=== PATIENT | male | born 1985 | race Caucasian/White ===

== ENCOUNTER 2020-01-14 15:06 | Emergency (ER) | payer MEDICARE, MEDICAID, SELFPAY ==
[2020-01-14 15:08] VITALS: BP 136/80; PULSE 69; RESP 18; TEMP 36; O2SAT 92; BMI 36.5
--- NOTE | 2020-01-14 15:25 | ED.VIS.GEN ---
History of Present Illness Chief Complaint: Laceration Detail of Chief Complaint: Right hand laceration Informant: Patient Onset: Today Current Severity: Mild Maximum Severity: Moderate Narrative: Patient presents with laceration to the thenar eminence of the right hand. He states he cut it on a grinding wheel. He is right-hand dominant. He thinks his last tetanus shot was around 7 years ago. - Past Medical History (1) Factor 5 Leiden mutation, heterozygous Status: Chronic (2) MTHFR mutation Status: Chronic (3) Paraplegia Status: Chronic Comment: G82.20 Past Medical History - Allergies and Home Meds Allergies/Adverse Reactions: Allergies codeine Allergy (Verified 01/14/20 15:08) Other piperacillin sodium [From Zosyn] Allergy (Verified 01/14/20 15:08) Hives tazobactam sodium [From Zosyn] Allergy (Verified 01/14/20 15:08) Hives acetaminophen [From Vicodin] Adverse Reaction (Verified 01/14/20 15:08) Other severe headaches hydrocodone bitartrate [From Vicodin] Adverse Reaction (Verified 01/14/20 15:08) Other severe headaches Primary Care Physician: Anay Martin MD [Primary Care Provider] - Prior records reviewed: Yes Surgical History: - - laminectomy. placement of baclofen pump, pin placed in right hand Lives: Spouse/ Significant Other Smoking Status: Current some day smoker - Family History Maternal Family History: Reports: No pertinent history Review of Systems General: Denies: Chills, Fever Eyes: Denies: Visual changes - bilaterally ENT: Denies: Bilateral ear pain Cardiovascular: Denies: Chest pain Respiratory: Denies: Dyspnea Gastrointestinal: Denies: Abdominal pain Musculoskeletal: Reports: Extremity Pain Skin: Reports: Wounds Neurological: Denies: Weakness, Parasthesia, Numbness Hematologic: Denies: Easy bruising, Easy bleeding Allergy: Denies: Uticaria Physical Exam Vital Signs/Narrative: Vital Signs Temp Pulse Resp BP Pulse Ox 01/14/20 15:08 96.8 F L 69 18 136/80 H 92 Inital Vital Signs reviewed: Yes General: Well nourished, Well developed Head: Normocephalic ENT: Moist mucous membranes Cardiovascular: Regular rate, Regular rhythm Respiratory: No distress, CTA bilaterally Abdomen: Soft, Nontender Extremities: - - 3-1/2 cm laceration to the thenar eminence of the right hand. Minimal bleeding. Full range of motion of all digits. Normal cap refill and sensation. Neurological: Alert, Oriented x3, Normal Strength, Normal Sensation Psychological: Normal affect Diagnostic/Tx/Re-eval - Medical Decision Making 3 and half cc 1% lidocaine is used locally for anesthesia. Wound is cleansed and irrigated. Skin is closed with 5 simple interrupted sutures of 4-0 nylon. Dressing is applied. Patient is instructed on wound care and will have sutures removed in 7 to 10 days. Procedures - Lacerations No standard instances Length: 1.38 in Depth: Skin Shape: Linear Laceration repair: Lidocaine, Local Number of Sutures/Venessa: 5 Suture Information: EthilonTimmy, 4-0 ED Disposition - Plan for ED Patient: Disposition: Home or Assisted Living Diagnosis: Hand laceration Instructions: ED Laceration Hand Referrals: Anay Martin MD [Primary Care Provider] - 7 Days for suture removal
[2020-01-14] MEDS: Diphth,Pertuss(Acell),Tet Vac 0.5 ML Vial IM (16:04)
== END 2020-01-14 16:42 | disposition home or self-care (01) ==
PROVIDERS: Emergency Provider Emergency Medicine; PCP Internal Medicine
DX: S61.411A Laceration without foreign body of right hand, initial encounter (principal); W31.89XA Contact with other specified machinery, initial encounter; Y93.9 Activity, unspecified; Y92.9 Unspecified place or not applicable; Y99.9 Unspecified external cause status; Z23 Encounter for immunization; D68.51 Activated protein C resistance; E72.12 Methylenetetrahydrofolate reductase deficiency; G82.20 Paraplegia, unspecified; F17.200 Nicotine dependence, unspecified, uncomplicated; Z79.01 Long term (current) use of anticoagulants; Z79.899 Other long term (current) drug therapy
CPT/HCPCS: 12002; 90471; 90715; 99285

== ENCOUNTER 2021-02-18 09:18 | Emergency (ER) | payer MEDICARE, MEDICAID, SELFPAY ==
[2021-02-18 09:19] VITALS: BP 121/68; PULSE 112; RESP 20; TEMP 36.8; O2SAT 93; BMI 36.5
--- NOTE | 2021-02-18 10:22 | EKG12_ITS ---
Test Reason : FEVER Blood Pressure : / mmHG Vent. Rate : 102 BPM Atrial Rate : 102 BPM P-R Int : 150 ms QRS Dur : 082 ms QT Int : 310 ms P-R-T Axes : 053 010 023 degrees QTc Int : 404 ms Sinus tachycardia Otherwise normal ECG Confirmed by VIKTORIA KIRKLAND, SALVADOR ([id number]), development editor JACQUELINE TREJO ([id number]) on 02/22/2021 8:35:49 AM Referred By: MARIE Confirmed By:ESTELA BLUM MD
--- NOTE | 2021-02-18 10:25 | EDS_ITS ---
HPI History of Present Illness Chief Complaint: Fever Narrative Narrative: 35-year-old male with history of UTI presenting with concern for UTI. He states he was seen at urgent care prior to arrival and had a fever of 104.1. He was referred to the ER due to concern for kidney infection. He does complain of lower back pain and states this is where it usually hurts when he gets urinary tract infection. He states he took Tylenol prior to coming to the ED and his fever is now gone. He feels generally unwell. He states he has been very ill from UTIs in the past. He states he typically goes home on Bactrim. Patient does admit to a mild cough but states he is a smoker. He has not been vaccinated for COVID-19. He states he is wheezing and typically twice a year he does get wheezing. [facility] Medical History (Updated 02/18/21 @ 11:34 by Kusum Rubio) Abscess Paraplegia Home Medications baclofen 10 mg PO BID 03/18/13 [History Last Taken Unknown] morphine 15 mg PO Q12H 03/18/13 [History Last Taken Unknown] oxycodone 5 mg PO BID PRN 03/18/13 [History Last Taken Unknown] Xarelto 20 mg PO DAILY 08/31/15 [History Last Taken Unknown] pregabalin [Lyrica] 150 mg PO BID 08/31/15 [History Last Taken Unknown] tizanidine [Zanaflex] 2 mg PO BID 02/18/21 [History Last Taken Unknown] Allergy/AdvReac Type Severity Reaction Status Date / Time codeine Allergy Other Verified 02/18/21 09:21 piperacillin sodium Allergy Hives Verified 02/18/21 09:21 [From Zosyn] tazobactam sodium Allergy Hives Verified 02/18/21 09:21 [From Zosyn] acetaminophen [From Vicodin] AdvReac Other Verified 02/18/21 09:21 hydrocodone bitartrate AdvReac Other Verified 02/18/21 09:21 [From Vicodin] Social History Smoking Status: Current some day smoker tobacco type: cigarettes ROS ROS ED Constitutional Constitutional ED: Reports chills, fever(s) and sweats Eyes Eyes: Denies blurry vision or diplopia ENT ENT ED: Denies rhinorrhea or sore throat Cardiovascular Cardiovascular: Reports racing heartbeat; Denies chest pain or palpitations Respiratory/Chest Respiratory/Chest: Reports cough and dyspnea Gastrointestinal Gastrointestinal: Reports nausea; Denies abdominal pain, diarrhea or vomiting Genitourinary Genitourinary ED: Reports dysuria and urinary frequency Musculoskeletal Musculoskeletal: Reports myalgias; Denies back pain or neck pain Integumentary Denies Abrasions or rash Neurologic Neurologic: Denies headache(s) or paresthesias EXAM Physical Exam Const Vital Signs: 02/18/21 09:19 02/18/21 10:47 02/18/21 11:06 Temperature 98.3 F Temperature Source Temporal Pulse Rate 112 H 101 H Respiratory Rate 20 H 18 Respiratory Effort Short of Breath Blood Pressure 121/68 H Blood Pressure Mean 85 Pulse Ox 93 92 Oxygen Delivery Method Room Air Room Air 02/18/21 11:32 02/18/21 12:54 02/18/21 14:25 Temperature 98.7 F 98.4 F Temperature Source Temporal Temporal Pulse Rate 104 H 105 H 104 H Respiratory Rate 18 16 18 Respiratory Effort Blood Pressure 107/61 120/78 114/76 Blood Pressure Mean 76 92 88 Pulse Ox 96 92 94 Oxygen Delivery Method Room Air Room Air Room Air Positive well nourished General Appearance ED: NAD HEENT Reports moist mucous membranes HEENT Narrative: Diaphoretic Negative for trauma Eyes PERRL and EOMs intact bilaterally Resp normal respiratory effort Auscultation: wheezes throughout Cardio regular rhythm Rate: tachycardic GI normal to inspection, nondistended, normoactive bowel sounds Neuro oriented x3, CN's II-XII intact bilaterally and no sensory deficits noted Sensorium / Orientation: alert Motor Exam: strength 5/5 throughout Psych mental status grossly normal Skin no rashes or lesions noted MDM MDM MDM Narrative Medical decision making narrative: 35-year-old male presenting with fever of 104 prior to arrival. He is tachycardic on arrival as well. Sepsis work-up was started. Patient pancultured. Patient had an EKG performed which is sinus rhythm with ventricular rate of 102 bpm without signs of ischemic change on my interpretation. Chest x-ray on my interpretation shows no acute cardiopulmonary process. Patient himself was concerned for UTI given that he self catheterizes himself however urinalysis does not look overtly infected. White blood cell count is elevated at 17.3 with a left shift. Hemoglobin hematocrit are stable. Previous creatinine was 0.82 and today it is 1.34. Patient was given IV fluids. His LFTs are unremarkable. Lactic acid is 1.6. Rapid Covid testing is negative. Since patient had a small amount of hematuria I did see a CT of the abdomen pelvis which did not identify any acute process. At this point I am unsure what the source of his fever is. I spoke with his primary care provider Dr. Arnett and she recommended giving him Bactrim as this is the usual source of his infection. Urine culture and blood cultures are pending. Patient feels well on reevaluation. First dose of Bactrim was given in the ED. He was counseled if he is feeling worse or has any severe symptoms she should return to the ED. Impression: 1. Fever of unknown origin Lab Data Attestation: I reviewed the patient's lab results. Labs: Laboratory Results - last 24 hr 02/18/21 02/18/21 02/18/21 09:50 09:50 09:50 WBC 17.3 H RBC 5.43 Hgb 16.6 H Hct 49.8 MCV 91.7 MCH 30.6 MCHC 33.3 RDW Std Deviation 46.8 H RDW Coeff of Shahla 13.9 Plt Count 132 L MPV 10.9 Immature Gran % (Auto) 2.500 H Neut % (Auto) 89.8 H Lymph % (Auto) 3.2 L [place] % (Auto) 4.0 Eos % (Auto) 0.0 Baso % (Auto) 0.5 Absolute Neuts (auto) 15.5 H Absolute Lymphs (auto) 0.55 L Nucleated RBC % 0 Differential Comment SCANNED PT INR APTT Sodium 135 L Potassium 3.2 L Chloride 104 Carbon Dioxide 28.0 Anion Gap 3 L BUN 13 Creatinine 1.34 H Estim Creat Clear Calc 93.57 Est GFR (MDRD) Af Amer 77 Est GFR (MDRD) Non-Af 64 BUN/Creatinine Ratio 9.7 L Glucose 104 Lactic Acid 1.6 Calcium 8.4 L Total Bilirubin 0.70 AST 14 L ALT 27 Alkaline Phosphatase 71 Total Protein 7.1 Albumin 3.2 Globulin 3.9 Albumin/Globulin Ratio 0.8 L Urine Color Urine Clarity Urine pH Ur Specific [place] Urine Protein Urine Glucose (UA) Urine Ketones Urine Occult Blood Urine Nitrite Urine Bilirubin Urine Urobilinogen Ur Leukocyte Esterase Urine RBC Urine WBC Ur Squamous Epith Cells Urine Bacteria Urine Mucus 02/18/21 02/18/21 10:55 11:00 WBC RBC Hgb Hct MCV MCH MCHC RDW Std Deviation RDW Coeff of Shahla Plt Count MPV Immature Gran % (Auto) Neut % (Auto) Lymph % (Auto) [place] % (Auto) Eos % (Auto) Baso % (Auto) Absolute Neuts (auto) Absolute Lymphs (auto) Nucleated RBC % Differential Comment PT 16.6 H INR 1.4 APTT 34.2 Sodium Potassium Chloride Carbon Dioxide Anion Gap BUN Creatinine Estim Creat Clear Calc Est GFR (MDRD) Af Amer Est GFR (MDRD) Non-Af BUN/Creatinine Ratio Glucose Lactic Acid Calcium Total Bilirubin AST ALT Alkaline Phosphatase Total Protein Albumin Globulin Albumin/Globulin Ratio Urine Color Yellow Urine Clarity Sl. Cloudy Urine pH 5.0 Ur Specific [place] 1.015 Urine Protein 15 H Urine Glucose (UA) Normal Urine Ketones Negative Urine Occult Blood 10 H Urine Nitrite Negative Urine Bilirubin Negative Urine Urobilinogen 1 H Ur Leukocyte Esterase 100 H Urine RBC 0-5 SEEN Urine WBC 0-5 SEEN Ur Squamous Epith Cells 0-5 SEEN Urine Bacteria 1+ Urine Mucus 1+ Radiography Diagnostic Testing: Radiology Impression Chest X-Ray 02/18/21 11:10 IMPRESSION: Normal x-ray examination of the chest. Electronically Signed: Norm Dias MD at 11:35 EDT Tel , Service support , Abdomen/Pelvis CT 02/18/21 12:02 IMPRESSION: No acute abnormality. No renal or ureteral stone. Cholelithiasis. Electronically Signed: Norm Dias MD at 13:04 EDT Tel , Service support , Discharge Plan Triage Chief Complaint: Fever ED Provider: Abdirashid Thurman Dx/Rx/DC Orders Instructions: ED FUO Adult, ED Fever Control (Adult) Prescriptions: No Action morphine 30 MG tablet 15 mg PO Q12H RF: 0 baclofen 20 MG tablet 10 mg PO BID RF: 0 oxycodone 5 MG tablet 5 mg PO BID PRN (Reason: Pain) RF: 0 pregabalin [Lyrica] 150 MG capsule 150 mg PO BID RF: 0 Xarelto 20 MG tablet 20 mg PO DAILY RF: 0 tizanidine [Zanaflex] 2 mg Capsule 2 mg PO BID RF: 0 Primary Care Provider: Anay Martin Referrals: Anay Martin MD [Primary Care Provider] - Disposition Disposition: Home, Self Care
[2021-02-18 10:39] LABS: Absolute Lymphocyte Count 0.55 X10^3/uL (0.83-4.51); Absolute Neutrophil Count 15.5 X10^3/uL (2.0-7.7); Basophil# 0.09 X10^3/uL; Basophil% 0.5 % (0-1); Hematocrit 49.8 % (40-54); Hemoglobin 16.6 g/dL (13.0-16.5); Lymphocyte # 0.55 X10^3/ul (0.83-4.51); Lymphocyte % 3.2 % (19-41); Mean Corp Hgb Conc 33.3 g/dL (32-36); Mean Corpuscular Hgb 30.6 pg (27.0-32.0); Mean Corpuscular Volume 91.7 fL (80-94); Mean Platelet Vol. 10.9 fl (6.2-12.0); Monocyte# 0.69 X10^3/uL; NRBC Flagged by Analyzer 0 % (0-5); Neutrophil # 15.51 X10^3/uL (2.7-7.7); Neutrophil % 89.8 % (47-70); POSITIVE DIFFERENTIAL YES; POSITIVE MORPHOLOGY YES; Platelet Count 132 K/mm3 (150-450); RBC Distribution Width CV 13.9 % (11.6-14.6); RBC Distribution Width SD 46.8 fl (35.1-43.9); Red Blood Count 5.43 M/mm3 (4.6-6.2); White Blood Count 17.3 K/mm3 (4.4-11.0)
[2021-02-18 10:41] LABS: Differential Indicated SCAN CRITERIA MET
[2021-02-18 10:47] VITALS: PULSE 101; RESP 18
[2021-02-18] MEDS: Albuterol 2.5 MG/3 ML VIAL.NEB. INHALATION (10:47)
[2021-02-18] MEDS: Ipratropium/Albuterol Sulfate 3 ML AMPUL.NEB INHALATION (10:47)
[2021-02-18 10:48] LABS: ALB/GLOB Ratio 0.8 RATIO (0.9-2.4); AST(SGOT) 14 U/L (15-37); Alanine Aminotransfer ALT/SGPT 27 U/L (16-61); Albumin, Serum 3.2 g/dL (3.2-5.0); Alkaline Phosphatase 71 U/L (45-117); Anion Gap 3 (5-15); BUN 13 mg/dL (7-18); BUN/Creat Ratio 9.7 RATIO (10-20); Calcium,Total 8.4 mg/dL (8.5-10.1); Chloride 104 mmol/L (98-107); Creatinine, Serum 1.34 mg/dL (0.70-1.30); EST Glomerular Filtration Rate 64 mL/min (>60); Est Glom Filt Rate - Afr Amer 77 mL/min (>60); Estimated Creatinine Clearance 93.57 ml/min; Globulin 3.9 g/dL (2.2-4.2); Glucose 104 mg/dL (74-106); Potassium 3.2 mmol/L (3.5-5.1); Protein, Total 7.1 g/dL (6.4-8.2); Sodium Level 135 mmol/L (136-145)
[2021-02-18 10:50] LABS: Lactic Acid 1.6 mmol/L (0.4-1.9)
[2021-02-18] MEDS: 0.9% Normal Saline 1,000 ML 999 ML IV (10:57)
[2021-02-18] MEDS: MethylPREDNISolone 125 MG/2 ML Vial IV (10:57)
[2021-02-18 11:06] VITALS: O2SAT 92
[2021-02-18 11:09] LABS: Differential Comment SCANNED
[2021-02-18 11:10] LABS: Color, Urine Yellow (Yellow); Glucose, Dipstick Normal (Normal); Ketone-Dipstick Negative (Negative); Leukocyte Esterase-Dipstick 100 /ul (Negative); Nitrite-Dipstick Negative (Negative); Occult Blood-Urine 10 /ul (Negative); Protein-Dipstick 15 mg/dl (Negative); Specific Gravity, Urine 1.015 (1.002-1.030); Urine Bilirubin Dipstick Negative (Negative); Urine Clarity Sl. Cloudy (Clear); Urine Urobilinogen 1 mg/dl (Normal)
--- NOTE | 2021-02-18 11:10 | RAD_ITS ---
STUDY: X-RAY CHEST REASON FOR EXAM: Male, 35 years old. fever TECHNIQUE: Single AP portable view of the chest. COMPARISON: None. FINDINGS: The lungs are clear and expanded. There is no demonstrated pleural abnormality. Normal size heart. Normal mediastinum and marley. Normal visualized pulmonary arteries. Normal visualized aortic arch and descending thoracic aorta. Normal visualized thoracic spine. Normal visualized ribs, clavicles, and shoulders. There is no demonstrated abnormality of the visualized soft tissue structures of the upper abdomen. RAD/Chest 1 View (Portable) IMPRESSION: Normal x-ray examination of the chest. Electronically Signed: Norm Dias MD at 11:35 EDT Tel , Service support ,
[2021-02-18 11:20] LABS: International Normalized Ratio 1.4; Prothrombin Time (Protime)PT. 16.6 SECONDS (11.7-14.9)
[2021-02-18 11:21] LABS: Partial Thromboplast Time 34.2 Seconds (24.1-36.2)
[2021-02-18 11:24] LABS: Bacteria 1+ /hpf (None Seen); Mucous, Urine 1+ /hpf (<or=2+); Red Blood Cells-Urine 0-5 SEEN /hpf (0-5); Squamous Epithelial Cells - UA 0-5 SEEN /hpf (0-5); White Blood Cells 0-5 SEEN /hpf (0-5)
[2021-02-18 11:32] VITALS: BP 107/61; PULSE 104; RESP 18; TEMP 37.1; O2SAT 96
--- NOTE | 2021-02-18 12:02 | CT_ITS ---
STUDY: CT ABDOMEN AND PELVIS WITHOUT CONTRAST REASON FOR EXAM: Male, 35 years old. flank pain RADIATION DOSAGE (If Supplied By Facility): CTDIvol = ( 23.97 ) mGy, DLP = ( 1461.50 ) mGycm TECHNIQUE: Transaxial images were obtained from the dome of the diaphragm to the symphysis pubis without oral contrast, and without intravenous contrast. Sagittal and coronal images were reconstructed. Individualized dose optimization techniques were used for this CT. COMPARISON: None. FINDINGS: The visualized lung bases are unremarkable. The visualized portions of the heart are within normal limits. Normal liver. There are multiple gallstones. Normal spleen. Normal pancreas. Normal bilateral adrenal glands. Normal right kidney. Normal left kidney. Normal visualized stomach. Normal small intestine. Normal colon. The appendix is visualized and appears normal. Normal abdominal aorta. There is an IVC filter in place. Normal retroperitoneum. Normal urinary bladder. Epidural pain pump within the right upper quadrant anterior abdominal wall. Mild levoscoliosis of the lumbar spine with degenerative disc disease. CT/Abdomen/Pelvis without Cont IMPRESSION: No acute abnormality. No renal or ureteral stone. Cholelithiasis. Electronically Signed: Norm Dias MD at 13:04 EDT Tel , Service support ,
[2021-02-18 12:54] VITALS: BP 120/78; PULSE 105; RESP 16; O2SAT 92
[2021-02-18 14:25] VITALS: BP 114/76; PULSE 104; RESP 18; TEMP 36.9; O2SAT 94
[2021-02-18] MEDS: Smz/Tmp Ds Tablet 1 TABLET PO (16:07)
== END 2021-02-18 16:16 | disposition home or self-care (01) ==
PROVIDERS: Emergency Provider Student in an Organized Health Care Education/Training Program; PCP Internal Medicine
DX: R50.9 Fever, unspecified (principal); R00.0 Tachycardia, unspecified; G82.20 Paraplegia, unspecified; F17.210 Nicotine dependence, cigarettes, uncomplicated; Z79.02 Long term (current) use of antithrombotics/antiplatelets
CPT/HCPCS: 71045; 74176; 80053; 81001; 83605; 85025; 85610; 85730; 87040; 87086; 87088; 87426; 93005; 94640; 96374; 99285; J7030; A4216

== ENCOUNTER 2021-11-14 00:50 | Emergency (ER) | payer MEDICARE, MEDICAID, SELFPAY ==
[2021-11-14 00:51] VITALS: BP 134/81; PULSE 87; RESP 16; TEMP 36.6; O2SAT 99; BMI 35.9
--- NOTE | 2021-11-14 01:02 | EDS_ITS ---
HPI History of Present Illness Chief Complaint: Itching Informant: patient Narrative Narrative: Patient has been having diffuse body itching for about 24 hours. He states he has not really seen much of a rash. He cannot think of anything that is new. He has same dish and laundry detergents. His medications have not changed in either medication dose or appearance of the medicine that he gets from the pharmacy. He is not having shortness of breath or swelling of his mouth. He is tried Isidra and Benadryl but did not really provide much help. He states he just feels itchy all over. He cannot think of anything such as foods also that could have contributed to this. He does not generally feel ill. Itching is really his only complaint. No fevers or chills. [facility] Medical History Abscess Paraplegia Home Medications baclofen 10 mg PO BID 03/18/13 [History Last Taken Unknown] morphine 15 mg PO Q12H 03/18/13 [History Last Taken Unknown] Xarelto 20 mg PO DAILY 08/31/15 [History Last Taken Unknown] pregabalin [Lyrica] 200 mg PO BID 08/31/15 [History Last Taken Unknown] tizanidine [Zanaflex] 2 mg PO BID 02/18/21 [History Last Taken Unknown] cabergoline 0.5 mg PO MOTH 11/14/21 [History Last Taken Unknown] clomiphene citrate [Serophene] 50 mg PO QODAY 11/14/21 [History Last Taken Unknown] docusate sodium 100 mg PO BID 11/14/21 [History Last Taken Unknown] hydroxyzine pamoate 25 mg PO TID PRN PRN #30 cap 11/14/21 [Rx Last Taken Unknown] prednisone 60 mg PO DAILY #15 tab 11/14/21 [Rx Last Taken Unknown] Allergy/AdvReac Type Severity Reaction Status Date / Time codeine Allergy Other Verified 11/14/21 00:52 piperacillin sodium Allergy Hives Verified 11/14/21 00:52 [From Zosyn] tazobactam sodium Allergy Hives Verified 11/14/21 00:52 [From Zosyn] acetaminophen [From Vicodin] AdvReac Other Verified 11/14/21 00:52 hydrocodone bitartrate AdvReac Other Verified 11/14/21 00:52 [From Vicodin] Social History Smoking Status: Current some day smoker tobacco type: cigarettes ROS ROS ED Constitutional Constitutional ED: Denies chills or fever(s) Eyes Eyes: Denies blurry vision ENT ENT ED: Denies rhinorrhea or sore throat Cardiovascular Cardiovascular: Denies chest pain or palpitations Respiratory/Chest Respiratory/Chest: Denies cough, dyspnea or sputum Gastrointestinal Gastrointestinal: Denies nausea or vomiting Genitourinary Genitourinary ED: Denies dysuria Musculoskeletal Musculoskeletal: Denies arthralgias or myalgias Integumentary Reports other Details: No notable rash but he does feel itchy all over. ; Denies rash Neurologic Neurologic: Reports other Details: History of paraplegia. No change. Endocrine Endocrinology: Denies polydipsia or polyuria Allergic/Immunologic Allergic/Immunologic ED: Denies mouth swelling, tongue swelling or urticaria EXAM Physical Exam Const Vital Signs: 11/14/21 00:51 Temperature 98 F Temperature Source Oral Pulse Rate 87 Respiratory Rate 16 Blood Pressure 134/81 H Blood Pressure Mean 98 Pulse Ox 99 Oxygen Delivery Method Room Air Positive well nourished and well developed General Appearance ED: well developed and NAD; Negative for cyanotic or diaphoretic HEENT Reports moist mucous membranes HEENT Narrative: No oral swelling or change in voice or ability to swallow. Eyes EOMs intact bilaterally Neck supple Neck Narrative: No stridor. Chest Wall inspection of chest normal Resp normal respiratory effort and clear to auscultation bilaterally Cardio regular rate and regular rhythm GI normal to inspection, nondistended, normoactive bowel sounds and non-tender Palpation: soft Extremity normal to inspection Neuro oriented x3 Sensorium / Orientation: alert Psych mental status grossly normal Skin no rashes or lesions noted Skin Narrative: No notable rash. I see no hives. No raised areas. There may be a little bit of flushing to the skin of his periphery but this is minimal. I see no lesions at all. He feels none. MDM MDM MDM Narrative Medical decision making narrative: It is hard to say what is causing his symptoms. He definitely has some diffuse pruritus. Minimal flush to the skin. No significant rash. He has not had urinary symptoms or decreased urinary output. No indication of kidney failure. Plan will be a short burst of steroids. We will try some Vistaril for symptomatic improvement. If this is not resolved or doing significantly better within a few days he should check in with his physician. At that point further work-up may be pursued. He should return with any trouble breathing. Discharge Plan Triage Chief Complaint: Itching ED Provider: Callum Gilliland Dx/Rx/DC Orders Clinical Impression: Pruritus Instructions: ED General Allergic Reactions Prescriptions: New prednisone 20 MG tablet 60 mg PO DAILY Qty: 15 RF: 0 hydroxyzine pamoate [hydroxyzine pamoate] 25 MG capsule 25 mg PO TID PRN PRN (Reason: Anxiety) Qty: 30 RF: 0 No Action morphine 30 MG tablet 15 mg PO Q12H RF: 0 baclofen 20 MG tablet 10 mg PO BID RF: 0 pregabalin [Lyrica] 150 MG capsule 200 mg PO BID RF: 0 Xarelto 20 MG tablet 20 mg PO DAILY RF: 0 tizanidine [Zanaflex] 2 mg Capsule 2 mg PO BID RF: 0 clomiphene citrate [Serophene] 50 mg Tablet 50 mg PO QODAY RF: 0 cabergoline 0.5 mg Tablet 0.5 mg PO MOTH RF: 0 docusate sodium 100 mg Capsule 100 mg PO BID RF: 0 Primary Care Provider: Anay Martin Referrals: Anay Martin MD [Primary Care Provider] - 3-5 Days if not improving Disposition Disposition: Home, Self Care
[2021-11-14] MEDS: hydrOXYzine PAM 25 MG Capsule 50 MG PO (01:14)
[2021-11-14] MEDS: predniSONE 20 MG Tablet 60 MG PO (01:14)
[2021-11-14 01:15] VITALS: RESP 16
[2021-11-14 03:13] VITALS: BP 137/78; PULSE 67; RESP 18; O2SAT 97
--- NOTE | 2021-11-14 03:17 | EDS_ITS ---
HPI History of Present Illness Chief Complaint: Itching Informant: patient Narrative Narrative: Patient Santiago presents with itching. He states the medicine we gave him has not helped yet. I explained to the patient that is going to take 18 to 24 hours for prednisone to kick in. There are limits and I do not have medicines that will relieve all itching. Patient states that he is wondering if maybe a urine infection is causing this. He has none of his typical symptoms of urine infection. However, he now states that he has had some uncommon symptoms within his infection and he would like to get that checked as that is a possibility. I stated were happy to do that. [facility] Medical History Abscess Paraplegia Home Medications baclofen 10 mg PO BID 03/18/13 [History Last Taken Unknown] morphine 15 mg PO Q12H 03/18/13 [History Last Taken Unknown] Xarelto 20 mg PO DAILY 08/31/15 [History Last Taken Unknown] pregabalin [Lyrica] 200 mg PO BID 08/31/15 [History Last Taken Unknown] tizanidine [Zanaflex] 2 mg PO BID 02/18/21 [History Last Taken Unknown] cabergoline 0.5 mg PO MOTH 11/14/21 [History Last Taken Unknown] clomiphene citrate [Serophene] 50 mg PO QODAY 11/14/21 [History Last Taken Unknown] docusate sodium 100 mg PO BID 11/14/21 [History Last Taken Unknown] hydroxyzine pamoate 25 mg PO TID PRN PRN #30 cap 11/14/21 [Rx Last Taken Unknown] prednisone 60 mg PO DAILY #15 tab 11/14/21 [Rx Last Taken Unknown] sulfamethoxazole-trimethoprim [Bactrim DS] 1 tab PO Q12H #20 tab 11/14/21 [Rx Last Taken Unknown] Allergy/AdvReac Type Severity Reaction Status Date / Time codeine Allergy Other Verified 11/14/21 00:52 piperacillin sodium Allergy Hives Verified 11/14/21 00:52 [From Zosyn] tazobactam sodium Allergy Hives Verified 11/14/21 00:52 [From Zosyn] acetaminophen [From Vicodin] AdvReac Other Verified 11/14/21 00:52 hydrocodone bitartrate AdvReac Other Verified 11/14/21 00:52 [From Vicodin] Social History Smoking Status: Current some day smoker tobacco type: cigarettes ROS ROS ED Constitutional Constitutional ED: Denies chills, fever(s) or subjective Eyes Eyes: Denies blurry vision ENT ENT ED: Denies rhinorrhea Cardiovascular Cardiovascular: Denies chest pain Respiratory/Chest Respiratory/Chest: Denies cough Gastrointestinal Gastrointestinal: Denies nausea or vomiting Genitourinary Genitourinary ED: Denies dysuria, hematuria or urinary frequency Musculoskeletal Musculoskeletal: Denies myalgias Integumentary Reports other Details: Pruritus without notable rash ; Denies rash Endocrine Endocrinology: Denies polydipsia or polyuria Allergic/Immunologic Allergic/Immunologic ED: Denies urticaria EXAM Physical Exam Const Vital Signs: 11/14/21 00:51 11/14/21 01:15 11/14/21 03:13 Temperature 98 F Temperature Source Oral Pulse Rate 87 67 Respiratory Rate 16 16 18 Blood Pressure 134/81 H 137/78 H Blood Pressure Mean 98 97 Pulse Ox 99 97 Oxygen Delivery Method Room Air Room Air Positive well nourished General Appearance ED: NAD; Negative for cyanotic or diaphoretic HEENT Reports moist mucous membranes HEENT Narrative: No intraoral rash. Eyes General Eye ED: Negative for pale conjunctiva or scleral icterus Neck no JVD Chest Wall inspection of chest normal Resp normal respiratory effort and clear to auscultation bilaterally Cardio regular rate and regular rhythm GI normal to inspection, nondistended, normoactive bowel sounds and non-tender Palpation: soft Back/Spine no CVA tenderness Neuro Neuro Narrative: Paraplegia. Sensorium / Orientation: alert Skin Skin Narrative: Again, his skin has some mild hint of redness but he states this looks normal to him. It is blanching. MDM MDM MDM Narrative Medical decision making narrative: I did blood work to make sure there is no sign of uremia. His electrolytes look overall normal. His urine does show some mildly cloudy urine. There are 25-50 white cells and 4+ bacteria. We will treat this as UTI. He has done very well on Bactrim before. I will try giving him some Pepcid to see if the H2 blockage helps his itch. I explained that I do not have any specialized medicines for itch beyond the antihistamine that he is already taking. Hopefully, treating the UTI will help him feel better. Lab Data Attestation: I reviewed the patient's lab results. Labs: Laboratory Results - last 24 hr 11/14/21 11/14/21 03:00 03:10 Sodium 138 Potassium 3.8 Chloride 105 Carbon Dioxide 29.0 Anion Gap 4 L BUN 11 Creatinine 0.94 Estim Creat Clear Calc 132.10 Est GFR (MDRD) Af Amer 116 Est GFR (MDRD) Non-Af 96 BUN/Creatinine Ratio 11.7 Glucose 122 H Calcium 9.0 Urine Color Yellow Urine Clarity Cloudy Urine pH 6.0 Ur Specific [place] 1.015 Urine Protein 15 H Urine Glucose (UA) Normal Urine Ketones Negative Urine Occult Blood 25 H Urine Nitrite Negative Urine Bilirubin Negative Urine Urobilinogen 4 H Ur Leukocyte Esterase 25 H Urine RBC 0-5 SEEN Urine WBC 25-50 SEEN Ur Squamous Epith Cells 0 SEEN Amorphous Sediment 3+ Urine Bacteria 4+ Urine Mucus 0 SEEN Discharge Plan Triage Chief Complaint: Itching ED Provider: Callum Gilliland Dx/Rx/DC Orders Clinical Impression: Pruritus, Urinary tract infection Instructions: Urinary Tract Infections in Men, ED General Allergic Reactions Prescriptions: New prednisone 20 MG tablet 60 mg PO DAILY Qty: 15 RF: 0 hydroxyzine pamoate [hydroxyzine pamoate] 25 MG capsule 25 mg PO TID PRN PRN (Reason: Anxiety) Qty: 30 RF: 0 sulfamethoxazole-trimethoprim [Bactrim DS] 800-160 mg tablet 1 tab PO Q12H Qty: 20 RF: 0 No Action morphine 30 MG tablet 15 mg PO Q12H RF: 0 baclofen 20 MG tablet 10 mg PO BID RF: 0 pregabalin [Lyrica] 150 MG capsule 200 mg PO BID RF: 0 Xarelto 20 MG tablet 20 mg PO DAILY RF: 0 tizanidine [Zanaflex] 2 mg Capsule 2 mg PO BID RF: 0 clomiphene citrate [Serophene] 50 mg Tablet 50 mg PO QODAY RF: 0 cabergoline 0.5 mg Tablet 0.5 mg PO MOTH RF: 0 docusate sodium 100 mg Capsule 100 mg PO BID RF: 0 Primary Care Provider: Anay Martin Referrals: Anay Martin MD [Primary Care Provider] - 3-5 Days if not improving Disposition Disposition: Home, Self Care Discharge Date/Time: 11/14/21 01:17
[2021-11-14 03:20] LABS: Anion Gap 4 (5-15); BUN 11 mg/dL (7-18); BUN/Creat Ratio 11.7 RATIO (10-20); Chloride 105 mmol/L (98-107); Creatinine, Serum 0.94 mg/dL (0.70-1.30); EST Glomerular Filtration Rate 96 mL/min (>60); Est Glom Filt Rate - Afr Amer 116 mL/min (>60); Glucose 122 mg/dL (74-106); Potassium 3.8 mmol/L (3.5-5.1); Sodium Level 138 mmol/L (136-145)
[2021-11-14 03:21] LABS: Mucous, Urine 0 SEEN /hpf (<or=2+); Squamous Epithelial Cells - UA 0 SEEN /hpf (0-5)
[2021-11-14 03:51] LABS: Color, Urine Yellow (Yellow); Glucose, Dipstick Normal (Normal); Ketone-Dipstick Negative (Negative); Leukocyte Esterase-Dipstick 25 /ul (Negative); Nitrite-Dipstick Negative (Negative); Occult Blood-Urine 25 /ul (Negative); Protein-Dipstick 15 mg/dl (Negative); Specific Gravity, Urine 1.015 (1.002-1.030); Urine Bilirubin Dipstick Negative (Negative); Urine Clarity Cloudy (Clear); Urine Urobilinogen 4 mg/dl (Normal)
[2021-11-14 04:01] LABS: Red Blood Cells-Urine 0-5 SEEN /hpf (0-5); White Blood Cells 25-50 SEEN /hpf (0-5)
[2021-11-14 04:02] LABS: Amorphous Sediment 3+; Bacteria 4+ /hpf (None Seen)
[2021-11-14 04:18] VITALS: BP 162/128; PULSE 88; RESP 15; O2SAT 96
[2021-11-14] MEDS: Famotidine 20 MG Tablet PO (04:40)
[2021-11-14] MEDS: Smz/Tmp Ds Tablet 1 TABLET PO (04:40)
--- NOTE | 2021-11-17 13:26 | ED.RN ---
PRESCRIPTION FOR BACTRUM CALLED IN FOR PT. [facility] THE BACTRUM PRESCRIPTION DID NOT SEND TO THEM. THIS RN ABLE TO READ SCRIPT AND CALL MED IN FOR PT. DR VALDEZ AWARE
== END 2021-11-14 04:57 | disposition home or self-care (01) ==
LOC: ED 01:12
PROVIDERS: Emergency Provider Emergency Medicine; PCP Internal Medicine; Visit Provider Emergency Medicine
DX: L29.9 Pruritus, unspecified (principal); N39.0 Urinary tract infection, site not specified; F17.210 Nicotine dependence, cigarettes, uncomplicated; Z79.01 Long term (current) use of anticoagulants; Z79.899 Other long term (current) drug therapy
CPT/HCPCS: 80048; 81001; 87086; 87088; 87186; 99285

== ENCOUNTER 2024-01-02 16:08 | Inpatient (IN) | payer MEDICARE, MEDICAID, SELFPAY ==
[2024-01-02] VITALS (11 sets, daily range): BP systolic 99–149; BP diastolic 52–77; PULSE 87–165; RESP 16–26; TEMP 36.8–40.1; O2SAT 90–100; BMI 35.7
--- NOTE | 2024-01-02 16:19 | EKG12_ITS ---
Test Reason : FEVER Blood Pressure : / mmHG Vent. Rate : 149 BPM Atrial Rate : 149 BPM P-R Int : 154 ms QRS Dur : 068 ms QT Int : 230 ms P-R-T Axes : 046 -06 032 degrees QTc Int : 362 ms Sinus tachycardia Otherwise normal ECG Confirmed by HEIDY KIRKLAND, DEMETRICE ([id number]), editor book WILDER KITCHEN ([id number]) on 01/03/2024 1:02:03 PM Referred By: Confirmed By:DEMETRICE MOODY MD
--- NOTE | 2024-01-02 16:20 | CT_ITS ---
EXAM: CT ABDOMEN AND PELVIS WITHOUT INTRAVENOUS CONTRAST CLINICAL INDICATION: flank pain r/o nephrolithiasis TECHNIQUE: Helically acquired images were obtained of the abdomen and pelvis without intravenous contrast. This CT exam was performed using one or more of the following dose reduction techniques: automated exposure control, adjustment of the mA and/or kV according to patient size, and/or use of iterative reconstruction technique. COMPARISON: 02/18/2021 FINDINGS: LOWER THORAX: Unremarkable. Lung bases are clear. No cardiomegaly. No significant pericardial effusion. ABDOMEN: LIVER: Unremarkable. Homogeneous. GALLBLADDER AND BILE DUCTS: There are multiple tiny gallstones which are stable. There is no inflammation. No gallbladder distention or wall edema. No intra- or extrahepatic biliary ductal dilation. PANCREAS: Unremarkable. No focal cystic mass. SPLEEN: Unremarkable. Normal size without focal cystic or solid mass. ADRENALS: Unremarkable. No nodules. KIDNEYS AND URETERS: Unremarkable. Normal renal size and position. No hydronephrosis. STOMACH AND BOWEL: Unremarkable. No stomach or bowel distention. No focal inflammatory change. PELVIS: APPENDIX: No evidence of acute appendicitis. BLADDER: There is a Booker catheter in the bladder. REPRODUCTIVE: Unremarkable as visualized. No mass. ABDOMEN and PELVIS: INTRAPERITONEAL SPACE: Unremarkable. No ascites or other fluid collection. No free air. BONES/JOINTS: Unremarkable. No suspicious lytic or blastic abnormality. SOFT TISSUES: See below. VASCULATURE: There is an inferior vena cava filter in place. An IVC filter is present. Assess if there is a management plan in place for the IVC filter.If there is no established management plan, refer the patient to an interventional clinician on a nonemergent basis for evaluation. Abdominal aorta is non-dilated. LYMPH NODES: Unremarkable. No enlarged lymph nodes. TUBES, LINES AND DEVICES: There is mechanical device in the subcutaneous tissues over the right lower abdomen. CT/Abdomen/Pelvis without Cont IMPRESSION: No acute abnormalities in the abdomen or pelvis. There has been no significant change from the reference exam. There is cholelithiasis with no evidence of cholecystitis. Electronically Signed: Deep Wade MD at 18:22 EDT ,
[2024-01-02] MEDS: 0.9% Normal Saline (1000mL) 1,000 ML 1000 ML IV (16:32)
[2024-01-02] MEDS: Ondansetron 4 MG/2 ML Vial IV (16:33)
[2024-01-02] MEDS: Ketorolac 15 MG/ML Vial IV (16:33)
--- NOTE | 2024-01-02 16:35 | ED.VIS.BACK ---
HPI History of Present Illness Chief Complaint: Complaint [facility] Medical History Abscess Paraplegia Home Medications ?Medication ?Instructions ?Recorded ?Last Taken ?Type baclofen 20 mg tablet 10 mg PO BID 03/18/13 Unknown History morphine 30 mg tablet,extended 15 mg PO Q12H 03/18/13 Unknown History release pregabalin 150 mg capsule (Lyrica) 200 mg PO BID 08/31/15 Unknown History rivaroxaban 20 mg tablet (Xarelto) 20 mg PO DAILY 08/31/15 Unknown History tizanidine 2 mg capsule (Zanaflex) 2 mg PO BID 02/18/21 Unknown History cabergoline 0.5 mg tablet 0.5 mg PO MOTH 11/14/21 Unknown History clomiphene citrate 50 mg tablet 50 mg PO QODAY 11/14/21 Unknown History (Serophene) hydroxyzine pamoate 25 mg capsule 25 mg PO TID PRN PRN Anxiety #30 11/14/21 Unknown Rx caps prednisone 20 mg tablet 60 mg (3 x 20 mg) PO DAILY #15 tabs 11/14/21 Unknown Rx sulfamethoxazole 800 1 tab PO Q12H #20 tabs 11/14/21 Unknown Rx mg-trimethoprim 160 mg tablet (Bactrim DS) Allergy/AdvReac Type Severity Reaction Status Date / Time codeine Allergy Other Verified 01/02/24 16:11 piperacillin sodium (From Allergy Hives Verified 01/02/24 16:11 Zosyn) tazobactam sodium (From Allergy Hives Verified 01/02/24 16:11 Zosyn) acetaminophen (From Vicodin) AdvReac Other Verified 01/02/24 16:11 hydrocodone bitartrate (From AdvReac Other Verified 01/02/24 16:11 Vicodin) Social History Smoking Status: Current some day smoker tobacco type: cigarettes EXAM Physical Exam Const Vital Signs: 01/02/24 16:11 01/02/24 16:14 01/02/24 16:31 Temperature 102.9 F H 102.4 F H 103.9 F H Temperature Source Temporal Core Axillary Pulse Rate 165 H 138 H Respiratory Rate 24 H 26 H Blood Pressure 149/74 H 137/77 H Blood Pressure Mean 99 97 Pulse Ox 93 90 Oxygen Delivery Method Room Air Nasal Cannula Oxygen Flow Rate (L/min) 2 01/02/24 17:14 01/02/24 18:00 01/02/24 18:00 Temperature 104.1 F H 103.4 F H 103.4 F H Temperature Source Core Core Core Pulse Rate 122 H 115 H 113 H Respiratory Rate 17 18 22 H Blood Pressure 116/60 114/57 L 114/57 L Blood Pressure Mean 78 76 76 Pulse Ox 96 95 97 Oxygen Delivery Method Nasal Cannula Room Air Nasal Cannula Oxygen Flow Rate (L/min) 5 5 [facility] MDM Narrative Medical decision making narrative: HISTORY OF PRESENT ILLNESS: 38-year-old male presents with fever, back pain began suddenly this afternoon. Denies any sick contacts. Notes nausea but no vomiting. Family states patient is a history of epidural abscess and paraplegia. Patient denies abdominal pain. Patient denies bowel or bladder incontinence, IV drug use, urinary retention. REVIEW OF SYSTEMS: Pertinent positives: Nausea, shortness of breath, back pain, fatigue Pertinent negatives: Vomiting, chest pain, new focal neurologic deficits, IV drug use PHYSICAL EXAM: Nursing triage notes reviewed, Vital signs reviewed Constitutional: please see mdm HENT: MMM Eyes: Pupils equal round and reactive to light, Extraocular muscles intact Neck: No stridor, no JVD, full neck ROM Lungs: Clear to auscultation, No wheezing or rales. No increased work of breathing, no conversational dyspnea, no accessory muscle use, no nasal flaring. No respiratory distress noted Heart: Regular rate and rhythm, No murmurs, No rubs and No gallops, 2+ distal pulses (radial, femoral, posterior tibial) in all extremities Abdomen: Soft, there is no tenderness, rigidity, rebound or guarding, no obvious peritoneal signs, no palpable pulsatile abdominal masses, no auscultated abdominal bruit : No CVAT Extremities: No edema Neuro: Intact and sensation bilateral upper extremities, chronic weakness noted in bilateral lower extremities, Skin: No rash or lesions noted MEDICAL DECISION MAKING: Chief Complaint: Fever, back pain External records reviewed: Last ED visit 2021 Factors affecting care: n epidural abscess, paraplegia Social determinants of health: Denies IV drug use History obtained from others: patient's and child Consults: n internal medicine (Dr. Benton) [facility] Narrative: Patient is initially febrile, tachycardic rate of 165, tachypneic saturating 90% on room air. He was placed on 2 L nasal cannula. Large-bore IVs were placed. Fluid cessation was initiated. I considered the following differential diagnosis: Sepsis from either pulmonary source, urinary source, intra-abdominal source, epidural abscess Will consider epidural abscess potential etiology the patient had hypoxia, fever and had evidence of pneumonia which is more likely explanation rather than new infection of the spine in addition to this CT scans of the lumbar spine were negative for acute bony injury. ALL IMAGES (IF OBTAINED) HAVE BEEN PERSONALLY REVIEWED AND INTERPRETED BY MYSELF. CT scan lumbar spine shows no evidence of bony abnormality CT scan abdomen pelvis shows no evidence of intra-abdominal pathology Chest x-ray read reviewed myself shows bilateral infiltrates Lipase is wnl indicating no pancreatic inflammation. Lactate is wnl indicating no end-organ hypoperfusion and/or hypoxia. Urinalysis shows no evidence of urinary inflammation suggestive of UTI CBC leukocytosis suggestive of systemic inflammation, hemoconcentration but no thrombocytopenia CMP without evidence of acute kidney injury, significant electrolyte abnormality, anion gap, no evidence hepatobiliary pathology. COVID pending Blood and urine cultures pending Patient received broad-spectrum antibiotics in the form of vancomycin and cefepime. He was given Toradol and Tylenol to leave the fever and placed on oxygen. This improved his vital signs. He continued to have elevated temperature so ice packs were placed and lieu of cooling blanket as it is not available at this time. Given patient's vital sign normalities, concern for sepsis and new onset hypoxia in setting of community-acquired pneumonia patient was admitted to the PCU. Discussed with Dr. Benton The patient and/or family, caregivers express understanding. The patient and/or family, caregivers agrees with the plan. Shared decision making: I will have a discussion with the patient and or visitors regarding risk/benefits of further testing or admission. They will be made aware of of the risk/benefits inherent in this decision they will be given the opportunity to voice understanding. Total critical care time today provided was at least 60 minutes. This excludes separately billable procedures. Critical care time (if documented) is secondary to the patient having high probability of clinically significant/life threatening deterioration in the patient's condition which required my urgent intervention. Impression: 1. Sepsis 2. Community-acquired pneumonia 3. Hypoxia Dispo: Admit to PCU This note was generated with [employer]pt[employer] dictation software. It may contain incorrect words, spelling, and punctuation that were not noted in review of the chart prior to signing. Lab Data Labs: Laboratory Results - last 24 hr 01/02/24 16:40 WBC 16.0 H RBC 5.95 Hgb 18.2 H* Hct 54.1 H MCV 90.9 MCH 30.6 MCHC 33.6 RDW Std Deviation 48.6 H RDW Coeff of Shahla 14.6 Plt Count 154 MPV 10.6 Immature Gran % (Auto) 0.800 Neut % (Auto) 92.1 H Lymph % (Auto) 2.5 L [place] % (Auto) 3.7 Eos % (Auto) 0.1 Baso % (Auto) 0.8 Absolute Neuts (auto) 14.8 H Absolute Lymphs (auto) 0.40 L Nucleated RBC % 0 [address] Review May foll Sodium 137 Potassium 3.8 Chloride 105 Carbon Dioxide 28.0 Anion Gap 4 L BUN 9 Creatinine 1.08 Est GFR (MDRD) Af Amer 98 Est GFR (MDRD) Non-Af 81 BUN/Creatinine Ratio 8.3 L Glucose 96 Lactic Acid 1.7 Calcium 9.3 Total Bilirubin 0.90 AST 25 ALT 49 Alkaline Phosphatase 93 Total Protein 8.2 Albumin 3.8 Globulin 4.4 H Albumin/Globulin Ratio 0.9 Lipase 19 Urine Color Yellow Urine Clarity Clear Urine pH 8.0 Ur Specific [place] 1.010 Urine Protein Negative Urine Glucose (UA) Normal Urine Ketones Negative Urine Occult Blood 10 H Urine Nitrite Negative Urine Bilirubin Negative Urine Urobilinogen 8 H Ur Leukocyte Esterase 25 H Urine RBC 0-5 SEEN Urine WBC 0-5 SEEN Ur Squamous Epith Cells 0 SEEN Urine Bacteria 1+ Urine Mucus 0 SEEN Radiography Diagnostic Testing: Clinical Impression(s) from Imaging Studies Abdomen/Pelvis CT 01/02/24 16:20 IMPRESSION: No acute abnormalities in the abdomen or pelvis. There has been no significant change from the reference exam. There is cholelithiasis with no evidence of cholecystitis. Electronically Signed: Deep Wade MD at 18:22 EDT , Lumbar Spine CT 01/02/24 16:36 IMPRESSION: No acute findings in the lumbar spine. Electronically Signed: Deep Wade MD at 18:27 EDT , Chest X-Ray 01/02/24 17:55 IMPRESSION: Bibasilar airspace disease which may represent atelectasis or early bilateral lower lobe pneumonia. Electronically Signed: Deep Wade MD at 18:23 EDT , Discharge Plan Triage Chief Complaint: Complaint Other Complaint: Back Nausea/Vomiting ED Provider: Inder Lauren Dx/Rx/DC Orders Prescriptions: No Action morphine 30 MG tablet 15 mg PO Q12H Patient Comments: pain baclofen 20 MG tablet 10 mg PO BID pregabalin [Lyrica] 150 MG capsule 200 mg PO BID Patient Comments: nerve pain Xarelto 20 MG tablet 20 mg PO DAILY Patient Comments: blood thinner tizanidine [Zanaflex] 2 mg Capsule 2 mg PO BID clomiphene citrate [Serophene] 50 mg Tablet 50 mg PO QODAY cabergoline 0.5 mg Tablet 0.5 mg PO MOTH prednisone 20 MG tablet 60 mg PO DAILY Qty: 15 0RF hydroxyzine pamoate [hydroxyzine pamoate] 25 MG capsule 25 mg PO TID PRN PRN (Reason: Anxiety) Qty: 30 0RF Rx Instructions: 1 to 2 tablets 3 times a day as needed for itch sulfamethoxazole-trimethoprim [Bactrim DS] 800-160 mg tablet 1 tab PO Q12H Qty: 20 0RF Primary Care Provider: Anay Martin Referrals: Anay Mratin MD [Primary Care Provider] - Print Language: Albanian
--- NOTE | 2024-01-02 16:36 | CT_ITS ---
EXAM: CT LUMBAR SPINE WITHOUT INTRAVENOUS CONTRAST CLINICAL INDICATION: back pain TECHNIQUE: Helically acquired images were obtained of the lumbar spine without intravenous contrast. 2D reformats were reviewed. This CT exam was performed using one or more of the following dose reduction techniques: automated exposure control, adjustment of the mA and/or kV according to patient size, and/or use of iterative reconstruction technique. COMPARISON: No relevant prior studies available. FINDINGS: VERTEBRAE: Unremarkable. No fracture. No traumatic subluxation. No discrete lytic or blastic abnormality. Normal alignment. DISCS/SPINAL CANAL/NEURAL FORAMINA: Unremarkable. Disc heights are preserved. No critical stenosis. VASCULATURE: Visualized abdominal aorta is not dilated. LYMPH NODES: Unremarkable. No retroperitoneal adenopathy. TUBES, LINES AND DEVICES: There is a small intrathecal catheter present in the central canal. CT/Spine Lumbar without Contrast IMPRESSION: No acute findings in the lumbar spine. Electronically Signed: Deep Wade MD at 18:27 EDT ,
[2024-01-02] MEDS: Acetaminophen 500 MG Tablet 1000 MG PO (16:58)
[2024-01-02 17:05] LABS: Absolute Neutrophil Count 14.8 X10^3/uL (2.0-7.7); Basophil# 0.12 X10^3/uL; Basophil% 0.8 % (0-1); Eosinophil# 0.01 X10^3/uL; Eosinophils% 0.1 % (0-5); Hematocrit 54.1 % (40-54); Lymphocyte % 2.5 % (19-41); Mean Corp Hgb Conc 33.6 g/dL (32-36); Mean Corpuscular Hgb 30.6 pg (27.0-32.0); Mean Corpuscular Volume 90.9 fL (80-94); Mean Platelet Vol. 10.6 fl (6.2-12.0); Monocyte# 0.59 X10^3/uL; Monocyte% 3.7 % (0-10); NRBC Flagged by Analyzer 0 % (0-5); Neutrophil # 14.75 X10^3/uL (2.7-7.7); Neutrophil % 92.1 % (47-70); POSITIVE DIFFERENTIAL YES; Platelet Count 154 K/mm3 (150-450); RBC Distribution Width CV 14.6 % (11.6-14.6); RBC Distribution Width SD 48.6 fl (35.1-43.9); Red Blood Count 5.95 M/mm3 (4.6-6.2)
[2024-01-02 17:09] LABS: ALB/GLOB Ratio 0.9 RATIO (0.9-2.4); AST(SGOT) 25 U/L (15-37); Alanine Aminotransfer ALT/SGPT 49 U/L (16-61); Albumin, Serum 3.8 g/dL (3.2-5.0); Alkaline Phosphatase 93 U/L (45-117); Anion Gap 4 (5-15); BUN 9 mg/dL (7-18); BUN/Creat Ratio 8.3 RATIO (10-20); Calcium,Total 9.3 mg/dL (8.5-10.1); Chloride 105 mmol/L (98-107); Creatinine, Serum 1.08 mg/dL (0.70-1.30); EST Glomerular Filtration Rate 81 mL/min (>60); Est Glom Filt Rate - Afr Amer 98 mL/min (>60); Globulin 4.4 g/dL (2.2-4.2); Glucose 96 mg/dL (74-106); Lipase 19 U/L (13-75); Potassium 3.8 mmol/L (3.5-5.1); Protein, Total 8.2 g/dL (6.4-8.2); Sodium Level 137 mmol/L (136-145)
[2024-01-02] MEDS: Cefepime HCl 2 GM in 0.9% Normal Saline (100mL MB+) 100 ML IV (17:09)
[2024-01-02 17:16] LABS: Hemoglobin 18.2 g/dL (13.0-16.5)
[2024-01-02] MEDS: Vancomycin HCl 2,000 MG in 0.9% Normal Saline (500mL Bag) 500 ML 250 MG IV (17:28)
[2024-01-02 17:41] LABS: Mucous, Urine 0 SEEN /hpf (<or=2+); Squamous Epithelial Cells - UA 0 SEEN /hpf (0-5)
[2024-01-02 17:42] LABS: Lactic Acid 1.7 mmol/L (0.4-1.9)
[2024-01-02 17:46] LABS: Color, Urine Yellow (Yellow); Glucose, Dipstick Normal (Normal); Ketone-Dipstick Negative (Negative); Leukocyte Esterase-Dipstick 25 /ul (Negative); Nitrite-Dipstick Negative (Negative); Occult Blood-Urine 10 /ul (Negative); Protein-Dipstick Negative (Negative); Urine Bilirubin Dipstick Negative (Negative); Urine Clarity Clear (Clear); Urine Urobilinogen 8 mg/dl (Normal)
[2024-01-02 17:52] LABS: Bacteria 1+ /hpf (None Seen); Red Blood Cells-Urine 0-5 SEEN /hpf (0-5); White Blood Cells 0-5 SEEN /hpf (0-5)
--- NOTE | 2024-01-02 17:55 | RAD_ITS ---
EXAM: XR CHEST, 1 VIEW CLINICAL INDICATION: fever TECHNIQUE: Frontal view of the chest. COMPARISON: 02/18/2021 FINDINGS: LUNGS AND PLEURAL SPACES: There is mild bibasilar airspace disease. No pneumothorax. No effusion. HEART: Unremarkable. Cardiac silhouette not enlarged. MEDIASTINUM: Central airways and mediastinal contour are unremarkable. BONES/JOINTS: Unremarkable. No acute fracture. SOFT TISSUES: Unremarkable. RAD/Chest 1 View (Portable) IMPRESSION: Bibasilar airspace disease which may represent atelectasis or early bilateral lower lobe pneumonia. Electronically Signed: Deep Wade MD at 18:23 EDT ,
[2024-01-02] MEDS: 0.9% Normal Saline (1000mL) 1,000 ML 999 ML IV (19:01)
--- NOTE | 2024-01-02 19:44 | HP.PCM.HOS_ITS ---
HPI - General General Date of Admission: 01/02/24 Date of Service: 01/02/24 Chief Complaint: Shortness of breath and fever HPI Narrative MATEUS FRANZ, is a 38 M who presents from home with shortness of breath and fever. Patient was having some back pain. Patient was feeling okay until today where he became very lethargic, febrile and dyspneic. Presented to the emergency room and he underwent a workup that showed that he had bilateral pneumonia. He was febrile with a temp of 40.1 Celsius, tachycardic in the 120s, tachypneic to 26. He received vancomycin and cefepime in the emergency room. Patient has not been hospitalized anywhere recently. Patient has never had pneumonia before. [facility] Medical History (Updated 01/02/24 @ 19:[address] Seven Benton, ) Smoker MTHFR mutation Factor 5 Leiden mutation, heterozygous Low testosterone in male Abscess Paraplegia Home Medications ?Medication ?Instructions ?Recorded ?Last Taken ?Type baclofen 20 mg tablet 10 mg PO BID 03/18/13 Unknown History morphine 30 mg tablet,extended 15 mg PO Q12H 03/18/13 Unknown History release pregabalin 150 mg capsule (Lyrica) 200 mg PO BID 08/31/15 Unknown History rivaroxaban 20 mg tablet (Xarelto) 20 mg PO DAILY 08/31/15 Unknown History tizanidine 2 mg capsule (Zanaflex) 2 mg PO BID 02/18/21 Unknown History cabergoline 0.5 mg tablet 0.5 mg PO MOTH 11/14/21 Unknown History clomiphene citrate 50 mg tablet 50 mg PO QODAY 11/14/21 Unknown History (Serophene) hydroxyzine pamoate 25 mg capsule 25 mg PO TID PRN PRN Anxiety #30 11/14/21 Unknown Rx caps prednisone 20 mg tablet 60 mg (3 x 20 mg) PO DAILY #15 tabs 11/14/21 Unknown Rx sulfamethoxazole 800 1 tab PO Q12H #20 tabs 11/14/21 Unknown Rx mg-trimethoprim 160 mg tablet (Bactrim DS) Allergy/AdvReac Type Severity Reaction Status Date / Time codeine Allergy Other Verified 01/02/24 16:11 piperacillin sodium (From Allergy Hives Verified 01/02/24 16:11 Zosyn) tazobactam sodium (From Allergy Hives Verified 01/02/24 16:11 Zosyn) acetaminophen (From Vicodin) AdvReac Other Verified 01/02/24 16:11 hydrocodone bitartrate (From AdvReac Other Verified 01/02/24 16:11 Vicodin) Family History no significant family his no significant family history Social History Smoking Status: Current some day smoker tobacco type: cigarettes ROS ROS Narrative Patient had some recent back pain and was started on a Medrol Dosepak. Coughing, nonproductive. Paraplegic. He is a wheelchair. All review of systems were negative except as mentioned above in the history of present illness and the other review of systems. Vital Signs Vital Signs Vital Signs: 01/02/24 16:11 01/02/24 16:14 01/02/24 16:31 Temperature 39.4 C H 39.1 C H 39.9 C H Temperature Source Temporal Core Axillary Pulse Rate 165 H 138 H Respiratory Rate 24 H 26 H Blood Pressure 149/74 H 137/77 H Blood Pressure Mean 99 97 Pulse Ox 93 90 Oxygen Delivery Method Room Air Nasal Cannula Oxygen Flow Rate (L/min) 2 01/02/24 17:14 01/02/24 18:00 01/02/24 18:00 Temperature 40.1 C H 39.7 C H 39.7 C H Temperature Source Core Core Core Pulse Rate 122 H 115 H 113 H Respiratory Rate 17 18 22 H Blood Pressure 116/60 114/57 L 114/57 L Blood Pressure Mean 78 76 76 Pulse Ox 96 95 97 Oxygen Delivery Method Nasal Cannula Room Air Nasal Cannula Oxygen Flow Rate (L/min) 5 5 01/02/24 19:00 01/02/24 19:06 01/02/24 19:12 Temperature 39.1 C H 39.1 C H Temperature Source Core Pulse Rate 117 H 117 H 109 H Respiratory Rate 26 H 22 H 20 H Blood Pressure 111/65 111/65 102/57 L Blood Pressure Mean 80 80 72 Pulse Ox 97 93 95 Oxygen Delivery Method Nasal Cannula Nasal Cannula Oxygen Flow Rate (L/min) 5 4 Physical Exam Const alert and no apparent distress Constitutional Narrative: Listless. Febrile General Appearance: cooperative HEENT normocephalic Neck no lymphadenopathy Neck Narrative: No thyromegaly Resp normal respiratory effort and no retractions Resp Narrative: Bibasilar crackles Cardio regular rate, regular rhythm, S1 normal heart sound and S2 normal heart sound GI normal to inspection, nondistended, normoactive bowel sounds, soft to palpation, non-tender, non-distended and hepatosplenomegaly Extremity normal to inspection Skin Skin Narrative: Numerous tattoos throughout. No rashes. Neuro Neuro Narrative: Moves upper extremities. Sensorium / Orientation: awake and alert Psych Psych Narrative: Flat affect Results Lab / Micro Data Attestation: I reviewed the patient's lab results. 01/02/24 16:40 01/02/24 16:40 Labs: Laboratory Results - last 24 hr 01/02/24 16:40: WBC 16.0 H, RBC 5.95, Hgb 18.2 H*, Hct 54.1 H, MCV 90.9, MCH 30.6, MCHC 33.6, RDW Std Deviation 48.6 H, RDW Coeff of Shahla 14.6, Plt Count 154, MPV 10.6, Immature Gran % (Auto) 0.800, Neut % (Auto) 92.1 H, Lymph % (Auto) 2.5 L, [place] % (Auto) 3.7, Eos % (Auto) 0.1, Baso % (Auto) 0.8, Absolute Neuts (auto) 14.8 H, Absolute Lymphs (auto) 0.40 L, Nucleated RBC % 0, Diff Path Review October, Sodium 137, Potassium 3.8, Chloride 105, Carbon Dioxide 28.0, Anion Gap 4 L, BUN 9, Creatinine 1.08, Est GFR (MDRD) Af Amer 98, Est GFR (MDRD) Non-Af 81, BUN/Creatinine Ratio 8.3 L, Glucose 96, Lactic Acid 1.7, Calcium 9.3, Total Bilirubin 0.90, AST 25, ALT 49, Alkaline Phosphatase 93, Total Protein 8.2, Albumin 3.8, Globulin 4.4 H, Albumin/Globulin Ratio 0.9, Lipase 19, Urine Color Yellow, Urine Clarity Clear, Urine pH 8.0, Ur Specific [place] 1.010, Urine Protein Negative, Urine Glucose (UA) Normal, Urine Ketones Negative, Urine Occult Blood 10 H, Urine Nitrite Negative, Urine Bilirubin Negative, Urine Urobilinogen 8 H, Ur Leukocyte Esterase 25 H, Urine RBC 0-5 SEEN, Urine WBC 0-5 SEEN, Ur Squamous Epith Cells 0 SEEN, Urine Bacteria 1+, Urine Mucus 0 SEEN Micro: Microbiology 01/02/24 18:38 Mucosa - Nose SARS-CoV-2, Influenza & RSV (PCR) - Final Imaging Radiology Impression Abdomen/Pelvis CT 01/02/24 16:20 IMPRESSION: No acute abnormalities in the abdomen or pelvis. There has been no significant change from the reference exam. There is cholelithiasis with no evidence of cholecystitis. Electronically Signed: Deep Wade MD at 18:22 EDT , Lumbar Spine CT 01/02/24 16:36 IMPRESSION: No acute findings in the lumbar spine. Electronically Signed: Deep Wade MD at 18:27 EDT , Chest X-Ray 01/02/24 17:55 IMPRESSION: Bibasilar airspace disease which may represent atelectasis or early bilateral lower lobe pneumonia. Electronically Signed: Deep Wade MD at 18:23 EDT , Assessment & Plan Assessment/Plan (1) Sepsis: (2) Pneumonia: PLAN: Plan Sepsis * Present on admission. qSOFA of 2 for lethargy and tachypnea of 26. SIRS 44 with a white count of 16, temp to 1 point of 40.4, heart rate peaked at 165, respiratory rate of 24. * Secondary to pneumonia * Patient is hemodynamically stable after 30 cc/kg of IV fluid. No need for pressors nor intensive care monitoring at this time. Pneumonia * Suspect pneumococcal * Patient received cefepime and vancomycin in the emergency room. * Patient would qualify as being severe given his underlying sepsis and utilize of meropenem and azithromycin. Patient has a severe allergy to penicillins however he gets severe hives so we will avoid cephalosporins at this time. * Pulmonary toilet. Bronchodilators. Recent back pain: Patient has been started on Medrol Dosepak which she only took the first 2 doses. Will hold off on steroids at this time in light of the pneumonia. Chronic conditions * Low testosterone. Patient takes clomiphene. Will hold that for now. He receives his clomiphene from [place]. With the patient's history of VTE MTHFR mutation, advised to hold that long-term. 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 * Paraplegia: Up with assist. Patient uses wheelchair at baseline. DVT prophylaxis: Not indicated as patient is already anticoagulated. Discussed with the family at bedside Charges/Coding Visit Charges Inpatient E&M: 86591 Init Hosp L3
[2024-01-02] MEDS: Morphine 4 MG/ML Syringe IV (19:53)
[2024-01-02] MEDS: Meropenem 1 GM in 0.9% Normal Saline (100mL MB+) 100 ML IV (22:44)
[2024-01-02] MEDS: Pregabalin 50 MG Capsule 200 MG PO (22:44)
[2024-01-02] MEDS: morphine SR 15 MG Tablet PO (22:44)
[2024-01-02] MEDS: Ketorolac 30 MG/ML Syringe IV (22:44)
[2024-01-02] MEDS: tiZANidine HCl 2 MG Tablet PO (22:45)
[2024-01-02] MEDS: Baclofen 10 MG Tablet PO (22:45)
[2024-01-02] MEDS: 0.9% Normal Saline (1000mL) 1,000 ML 150 ML IV (22:45)
[2024-01-03 04:15] VITALS: BP 122/57; PULSE 73; RESP 16; TEMP 36.3; O2SAT 98
[2024-01-03 05:13] VITALS: BP 122/57; PULSE 73; RESP 18; TEMP 36.3; O2SAT 98
[2024-01-03] MEDS: Meropenem 1 GM in 0.9% Normal Saline (100mL MB+) 100 ML IV (06:08)
[2024-01-03 06:12] LABS: Absolute Lymphocyte Count 0.48 X10^3/uL (0.83-4.51); Basophil# 0.04 X10^3/uL; Basophil% 0.4 % (0-1); Eosinophil# 0.01 X10^3/uL; Eosinophils% 0.1 % (0-5); Hematocrit 48.9 % (40-54); Hemoglobin 16.2 g/dL (13.0-16.5); Lymphocyte # 0.48 X10^3/ul (0.83-4.51); Lymphocyte % 4.4 % (19-41); Mean Corp Hgb Conc 33.1 g/dL (32-36); Mean Corpuscular Hgb 30.8 pg (27.0-32.0); Mean Platelet Vol. 10.8 fl (6.2-12.0); Monocyte# 0.34 X10^3/uL; Monocyte% 3.1 % (0-10); NRBC Flagged by Analyzer 0 % (0-5); Neutrophil # 10.03 X10^3/uL (2.7-7.7); Neutrophil % 91.5 % (47-70); POSITIVE DIFFERENTIAL YES; Platelet Count 105 K/mm3 (150-450); RBC Distribution Width CV 14.6 % (11.6-14.6); RBC Distribution Width SD 50.3 fl (35.1-43.9); Red Blood Count 5.26 M/mm3 (4.6-6.2)
[2024-01-03 06:47] LABS: Anion Gap 5 (5-15); BUN 12 mg/dL (7-18); Calcium,Total 7.9 mg/dL (8.5-10.1); Chloride 110 mmol/L (98-107); EST Glomerular Filtration Rate 115 mL/min (>60); Est Glom Filt Rate - Afr Amer 139 mL/min (>60); Estimated Creatinine Clearance 184.75 ml/min; Glucose 88 mg/dL (74-106); Potassium 3.8 mmol/L (3.5-5.1); Sodium Level 140 mmol/L (136-145)
[2024-01-03 06:48] VITALS: PULSE 85; RESP 14; O2SAT 94
[2024-01-03] MEDS: Ipratropium/Albuterol Sulfate 3 ML AMPUL.NEB INHALATION ×2 (06:48→11:04)
[2024-01-03 09:35] VITALS: BP 118/82; PULSE 87; RESP 16; TEMP 36.2; O2SAT 98
[2024-01-03] MEDS: Fluticasone 0.05% 1 SPRAY NASAL.SRY 2 SPRAY NASAL (09:43)
[2024-01-03] MEDS: morphine SR 15 MG Tablet PO (09:43)
[2024-01-03] MEDS: Pregabalin 50 MG Capsule 200 MG PO (09:44)
[2024-01-03] MEDS: Baclofen 10 MG Tablet PO (09:44)
[2024-01-03] MEDS: tiZANidine HCl 2 MG Tablet PO (09:44)
[2024-01-03 10:47] VITALS: O2SAT 96; O2SAT 98
[2024-01-03 11:04] VITALS: PULSE 82; RESP 14
--- NOTE | 2024-01-03 11:19 | CASEMGMT ---
PATRICIA COLEMAN Assessment Face to Face with patient for initial transition planning/care coordination assessment. PATRICIA COLEMAN introduced self and role at [facility], pt voices understanding. Pt is A&Ox4 and is sitting up in a WC with at bedside. Care providers, pharmacy, and demographics verified. Admitting dx: Pneumonia PCP: Anay Martin Specialists: PM in [place]. Dr. Shelby (Neuro [facility]). Dr. Morris (Ortho). Daysi Jim ([facility] PA for Baclofen Pump) [facility]erred [facility]acy: [facility] Insurance: [employer] [facility] Prescription Benefit: Yes LNOK: Tana Manzano (W) Living Arrangements: Pt lives with his and 3 children (Ages 16, 8, and 7) in a single story home with a ramp to enter ADLs/IADLs: Pt is WC bound and states that he is able to manage task independently and that his can assist him if needed Transportation: Self, . Denies concerns DME: WC x 2. FWW. Shower chair with GB. Handicap accessible vehicles. Denies further needs HHC/SNF: Denies history or needs Pt?s goal: Home Plan: home no needs. Pt did not qualify for home oxygen. Pt denies the need for HHC or OP therapy. Pt states that he feels safe returning home with the support of his family once he is medically ready. Pt denies any further questions or concerns. Jaja Metz RN, CM
--- NOTE | 2024-01-03 11:58 | DCINST_ITS ---
Discharge Instructions Diet Discharge Diet: No restrictions Activity Discharge Activity: Return to Normal Activity Dressing / Incision Call your doctor if you observe: Fever of 101 or Higher, Shortness of breath, Dizziness, Fainting spells, Swelling in the ankles and Increased palpitations (irregular heartbeat) Follow Up Care Test Results: Test results from this visit will be discussed in further detail at your follow- up appointment, if applicable. Discharge Plan Admission Admit Date/Time: 01/02/24 18:52 Attending Provider: Pop Dahl Primary Care Provider: Anay Martin Consulting Providers: Seven Benton Discharge Orders/Prescriptions Prescriptions: New levofloxacin 750 mg Tablet 750 mg PO DAILY 6 Days Qty: 6 0RF Continued morphine 30 MG tablet 15 mg PO Q12H Patient Comments: pain baclofen 20 MG tablet 10 mg PO BID pregabalin [Lyrica] 150 MG capsule 200 mg PO BID Patient Comments: nerve pain Xarelto 20 MG tablet 20 mg PO DAILY Patient Comments: blood thinner tizanidine [Zanaflex] 2 mg Capsule 2 mg PO BID clomiphene citrate [Serophene] 50 mg Tablet 50 mg PO QODAY prednisone 20 MG tablet 60 mg PO DAILY Qty: 15 0RF hydroxyzine pamoate 25 MG capsule 25 mg PO TID PRN PRN (Reason: Anxiety) Qty: 30 0RF Rx Instructions: 1 to 2 tablets 3 times a day as needed for itch diclofenac sodium 50 mg tablet,delayed release (DR/EC) 50 mg PO BID PRN PRN (Reason: pain) Referrals / Follow Up: Anay Martin MD [Primary Care Provider] - Within 1 Week Disposition Disposition (needs filled in before D/C Order can be placed): Home, Self Care
[2024-01-03] MEDS: levoFLOXacin 750 MG Tablet PO (12:37)
[2024-01-03 13:16] LABS: Pathologist Review Reviewed
--- NOTE | 2024-01-03 17:02 | DS.PCM_ITS ---
Providers Date of Admission: 01/02/24 Primary Care Physician: Dr. Anay Martin MD Reason For Visit: PNEUMONIA Diagnosis Discharge Diagnosis (1) Sepsis: Status: Acute Code(s): A41.9 - Sepsis, unspecified organism (2) Pneumonia: Status: Acute Code(s): J18.9 - Pneumonia, unspecified organism Medications at Discharge Home Medications baclofen 20 mg tablet 10 mg PO BID spasms 03/18/13 morphine 30 mg tablet,extended release 15 mg PO Q12H pain 03/18/13 pregabalin 150 mg capsule (Lyrica) 200 mg PO BID nerve pain 08/31/15 rivaroxaban 20 mg tablet (Xarelto) 20 mg PO DAILY blood thinner 08/31/15 tizanidine 2 mg capsule (Zanaflex) 2 mg PO BID muscle relaxer 02/18/21 clomiphene citrate 50 mg tablet (Serophene) 50 mg PO QODAY Testosterone 11/14/21 hydroxyzine pamoate 25 mg capsule 25 mg PO TID PRN PRN Anxiety #30 caps 11/14/21 prednisone 20 mg tablet 60 mg (3 x 20 mg) PO DAILY inflammation #15 tabs 11/14/21 diclofenac sodium 50 mg tablet,delayed release 50 mg PO BID PRN PRN pain 01/02/24 levofloxacin 750 mg tablet 750 mg PO DAILY 6 days #6 tabs 01/03/24 Hospital Course Operations None Procedures None Summary of Care Provided Minutes Spent on Discharge: 34 Hospital Course: Per HPI: MATEUS FRANZ, is a 38 M who presents from home with shortness of breath and fever. Patient was having some back pain. Patient was feeling okay until today where he became very lethargic, febrile and dyspneic. Presented to the emergency room and he underwent a workup that showed that he had bilateral pneumonia. He was febrile with a temp of 40.1 Celsius, tachycardic in the 120s, tachypneic to 26. He received vancomycin and cefepime in the emergency room. Patient has not been hospitalized anywhere recently. Patient has never had pneumonia before. Hospital Course: 1. Bacterial pneumonia with acute hypoxia?38-year-old male who is a paraplegic presented to the hospital with signs and symptoms of pneumonia. Based on SIRS criteria he was septic however based on his insurance he is not, he was tachycardic as well as febrile to over 102 with a leukocytosis of 16. Infectious workup so far demonstrated possible early pneumonia on chest x-ray. UA was unremarkable and so far urine culture demonstrates 11-25,000 CFU for E. coli which should be treated with Levaquin. He has a history of allergies to Zosyn so was initially placed on meropenem and azithromycin. This was transitioned to Levaquin which she was given an oral dose today prior to discharge. He was feeling much better today after he received IV fluids he did have some dehydration as evidenced by his slight increase in his creatinine though not an COURT, as well as his erythrocytosis to 18 and improved to 16 on the day of discharge. Renal function also improved to 1.8. He was feeling much better today and was able to come off of his oxygen and did not require any at rest or with any type of activity that he would normally do including getting in and out of his wheelchair. I discussed with him the plan for possible discharge today and he expressed understanding of the risk benefits of going home and would like to go home today. Will plan for Levaquin for another 6 days to complete treatment. 2. 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 His home medications were continued where appropriate. It was discussed with him that given his history of VTE in the presence of his MTHFR mutation that he should evaluate with physician whether or not he should be on long-term hormonal therapy for his low testosterone. He was advised to hold this medication. Physical Exam Narrative General: Alert, Oriented x3, Cooperative, No apparent distress HEENT: Atraumatic, PERRLA, EOMI, Normocephalic Oral: Moist Mucosa Neck: Supple, No JVD Lungs: Diminished, Normal air movement, No rhonchi, No wheeze, No rales Cardiovascular: Regular rate, Regular Rhythm, Normal S1, Normal S2, No murmurs Abdomen: Soft, Non Tender, Non-Distended, No Hepato-splenomegaly Extremities: No edema, Capillary Refill Less than 3 Seconds Skin: No rashes, No breakdown Musculoskeletal: No Tenderness to Palpation of Joints or Extremities Neurological: Neuroexam is at baseline with upper extremity strength. Sensation in his upper extremities Psych/Mental Status: Normal Affect, Appropriate Weight / BMI Weight Weight: 293 lb 10.491 oz Body Mass Index (BMI) 35.7 ABG / Lab / Microbiology Data 01/03/24 05:30 01/03/24 05:30 Laboratory: Laboratory Results - last 24 hr 01/02/24 16:40: WBC 16.0 H, RBC 5.95, Hgb 18.2 H*, Hct 54.1 H, MCV 90.9, MCH 30.6, MCHC 33.6, RDW Std Deviation 48.6 H, RDW Coeff of Shahla 14.6, Plt Count 154, MPV 10.6, Immature Gran % (Auto) 0.800, Neut % (Auto) 92.1 H, Lymph % (Auto) 2.5 L, [place] % (Auto) 3.7, Eos % (Auto) 0.1, Baso % (Auto) 0.8, Absolute Neuts (auto) 14.8 H, Absolute Lymphs (auto) 0.40 L, Nucleated RBC % 0, Diff Path Review Reviewed, Sodium 137, Potassium 3.8, Chloride 105, Carbon Dioxide 28.0, Anion Gap 4 L, BUN 9, Creatinine 1.08, Est GFR (MDRD) Af Amer 98, Est GFR (MDRD) Non- Af 81, BUN/Creatinine Ratio 8.3 L, Glucose 96, Lactic Acid 1.7, Calcium 9.3, Total Bilirubin 0.90, AST 25, ALT 49, Alkaline Phosphatase 93, Total Protein 8.2, Albumin 3.8, Globulin 4.4 H, Albumin/Globulin Ratio 0.9, Lipase 19, Urine Color Yellow, Urine Clarity Clear, Urine pH 8.0, Ur Specific [place] 1.010, Urine Protein Negative, Urine Glucose (UA) Normal, Urine Ketones Negative, Urine Occult Blood 10 H, Urine Nitrite Negative, Urine Bilirubin Negative, Urine Urobilinogen 8 H, Ur Leukocyte Esterase 25 H, Urine RBC 0-5 SEEN, Urine WBC 0-5 SEEN, Ur Squamous Epith Cells 0 SEEN, Urine Bacteria 1+, Urine Mucus 0 SEEN 01/03/24 05:30: WBC 11.0, RBC 5.26, Hgb 16.2, Hct 48.9, MCV 93.0, MCH 30.8, MCHC 33.1, RDW Std Deviation 50.3 H, RDW Coeff of Shahla 14.6, Plt Count 105 L, MPV 10.8, Immature Gran % (Auto) 0.500, Neut % (Auto) 91.5 H, Lymph % (Auto) 4.4 L, [place] % (Auto) 3.1, Eos % (Auto) 0.1, Baso % (Auto) 0.4, Absolute Neuts (auto) 10.0 H, Absolute Lymphs (auto) 0.48 L, Nucleated RBC % 0, Sodium 140, Potassium 3.8, Chloride 110 H, Carbon Dioxide 25.0, Anion Gap 5, BUN 12, Creatinine 0.80, Estim Creat Clear Calc 184.75, Est GFR (MDRD) Af Amer 139, Est GFR (MDRD) Non-Af 115, BUN/Creatinine Ratio 15.0, Glucose 88, Calcium 7.9 L Microbiology: Microbiology 01/02/24 16:40 Urine Catheter - [place] Urine Culture - Preliminary Presumptive E. coli 01/02/24 16:40 Urine Catheter - Catheter Streptococcus pneumoniae Antigen (M - Final 01/02/24 16:40 Urine Catheter - Catheter Legionella Antigen - Final 01/02/24 18:38 Mucosa - Nose SARS-CoV-2, Influenza & RSV (PCR) - Final Radiography Diagnostic Testing: Radiology Impression Abdomen/Pelvis CT 01/02/24 16:20 IMPRESSION: No acute abnormalities in the abdomen or pelvis. There has been no significant change from the reference exam. There is cholelithiasis with no evidence of cholecystitis. Electronically Signed: Deep Wade MD at 18:22 EDT , Lumbar Spine CT 01/02/24 16:36 IMPRESSION: No acute findings in the lumbar spine. Electronically Signed: Deep Wade MD at 18:27 EDT , Chest X-Ray 01/02/24 17:55 IMPRESSION: Bibasilar airspace disease which may represent atelectasis or early bilateral lower lobe pneumonia. Electronically Signed: Deep Wade MD at 18:23 EDT , D/C Instructions Discharge Diet: No restrictions Call your doctor if you observe: Fever of 101 or Higher, Shortness of breath, Dizziness, Fainting spells, Swelling in the ankles and Increased palpitations (irregular heartbeat) Meaningful Use Info Meaningful Use Meaningful Use Diagnoses (Choose all that apply): None applicable Ischemic Stroke Statin Dosing Therapy Reference: STATIN DOSE THERAPY REFERENCE: * Patients > 75 years receive moderate or high dose statin therapy. * Patients 75 years or YOUNGER should receive HIGH intensity statin dose unless contraindicated. You will be required to document reason for non-treatment if statin daily dose does not meet guidelines. HIGH DOSE STATIN THERAPY DAILY Atorvastatin > than or = to 40 mg Rosuvastatin > than or = to 20 mg Amlodipine + Atorvastatin > than or = to 2.5/40 mg Ezetimibe + Simvastatin 10/80 mg Simvastatin 80mg Discharge Plan Admission Admit Date/Time: 01/02/24 18:52 Attending Provider: Pop Dahl Primary Care Provider: Anay Martin Consulting Providers: Seven Benton Discharge Orders/Prescriptions Prescriptions: New levofloxacin 750 mg Tablet 750 mg PO DAILY 6 Days Qty: 6 0RF Continued morphine 30 MG tablet 15 mg PO Q12H Patient Comments: pain baclofen 20 MG tablet 10 mg PO BID pregabalin [Lyrica] 150 MG capsule 200 mg PO BID Patient Comments: nerve pain Xarelto 20 MG tablet 20 mg PO DAILY Patient Comments: blood thinner tizanidine [Zanaflex] 2 mg Capsule 2 mg PO BID clomiphene citrate [Serophene] 50 mg Tablet 50 mg PO QODAY prednisone 20 MG tablet 60 mg PO DAILY Qty: 15 0RF hydroxyzine pamoate 25 MG capsule 25 mg PO TID PRN PRN (Reason: Anxiety) Qty: 30 0RF Rx Instructions: 1 to 2 tablets 3 times a day as needed for itch diclofenac sodium 50 mg tablet,delayed release (DR/EC) 50 mg PO BID PRN PRN (Reason: pain) Referrals / Follow Up: Anay Martin MD [Primary Care Provider] - Within 1 Week Disposition Disposition (needs filled in before D/C Order can be placed): Home, Self Care Charges/Coding Visit Charges Inpatient E&M: 07810 Disch Hosp >30min
== END 2024-01-03 12:50 | disposition home or self-care (01) | DRG 194 ==
LOC: ED 19:07 → PCU 19:18
PROVIDERS: Emergency Provider Emergency Medicine; PCP Internal Medicine; Visit Provider Family Medicine
DX: J13 Pneumonia due to Streptococcus pneumoniae (principal); G82.20 Paraplegia, unspecified; E86.0 Dehydration; M54.9 Dorsalgia, unspecified; F17.210 Nicotine dependence, cigarettes, uncomplicated; R09.02 Hypoxemia; Z88.0 Allergy status to penicillin; Z79.01 Long term (current) use of anticoagulants; Z79.899 Other long term (current) drug therapy; Z86.718 Personal history of other venous thrombosis and embolism
CPT/HCPCS: 36415; 51702; 71045; 72131; 74176; 80048; 80053; 81001; 83605; 83690; 85025; 87040; 87086; 87088; 87186; 87449; 87631; 93005; 94640; 99285; J2185; J7030; J7040; J7050; A4216; J2405

== ENCOUNTER 2024-05-11 15:05 | Emergency (ER) | payer MEDICARE, MEDICAID, SELFPAY ==
[2024-05-11 15:06] VITALS: BP 177/92; PULSE 125; RESP 19; TEMP 36.4; O2SAT 100
[2024-05-11 15:07] VITALS: BP 164/76; PULSE 115; RESP 18; TEMP 37; O2SAT 99; BMI 32.8
--- NOTE | 2024-05-11 15:25 | EX.ED.DYSGE1 ---
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 He has been using sterile equipment and being clean. Denies any abdominal pain or vomiting. States the last time he self caths several hours ago urine was dark but no blood. [facility] Medical History Smoker MTHFR mutation Factor 5 Leiden mutation, heterozygous Low testosterone in male Abscess Paraplegia Home Medications ?Medication ?Instructions ?Recorded ?Last Taken ?Type baclofen 20 mg tablet 10 mg PO BID spasms 03/18/13 01/02/24 History morphine 30 mg tablet,extended 15 mg PO Q12H pain 03/18/13 01/02/24 History release pregabalin 150 mg capsule (Lyrica) 200 mg PO BID nerve pain 08/31/15 01/02/24 History rivaroxaban 20 mg tablet (Xarelto) 20 mg PO DAILY blood thinner 08/31/15 Unknown History tizanidine 2 mg capsule (Zanaflex) 2 mg PO BID muscle relaxer 02/18/21 01/02/24 History clomiphene citrate 50 mg tablet 50 mg PO QODAY Testosterone 11/14/21 Unknown History (Serophene) hydroxyzine pamoate 25 mg capsule 25 mg PO TID PRN PRN Anxiety #30 11/14/21 Unknown Rx caps prednisone 20 mg tablet 60 mg (3 x 20 mg) PO DAILY 11/14/21 01/02/24 Rx inflammation #15 tabs diclofenac sodium 50 mg 50 mg PO BID PRN PRN pain 01/02/24 01/02/24 History tablet,delayed release levofloxacin 750 mg tablet 750 mg PO DAILY 6 days #6 tabs 01/03/24 Unknown Rx sulfamethoxazole 800 1 tab PO BID #14 TABLETS 05/11/24 Unknown Rx mg-trimethoprim 160 mg tablet Allergy/AdvReac Type Severity Reaction Status Date / Time codeine Allergy Other Verified 05/11/24 15:07 piperacillin sodium (From Allergy Hives Verified 05/11/24 15:07 Zosyn) tazobactam sodium (From Allergy Hives Verified 05/11/24 15:07 Zosyn) acetaminophen (From Vicodin) AdvReac Other Verified 05/11/24 15:07 hydrocodone bitartrate (From AdvReac Other Verified 05/11/24 15:07 Vicodin) Social History Smoking Status: Current some day smoker tobacco type: cigarettes ROS ROS ED Constitutional Constitutional ED: Reports chills, fever(s) and subjective Eyes Eyes: Denies change in vision or diplopia ENT ENT ED: Denies rhinorrhea or sore throat Cardiovascular Cardiovascular: Denies chest pain or palpitations Respiratory/Chest Respiratory/Chest: Denies cough or dyspnea Gastrointestinal Gastrointestinal: Reports nausea; Denies abdominal pain, diarrhea or vomiting Genitourinary Genitourinary ED: Reports as per HPI; Denies dysuria or hematuria Musculoskeletal Musculoskeletal: Reports back pain; Denies neck pain Integumentary Denies abscess or rash Neurologic Neurologic: Reports paresthesias and other Details: Chronic abnormal sensation from the waist down no changes ; Denies headache(s) or weakness Psychiatric Psychiatric: Denies anxiety or suicidal thoughts EXAM Physical Exam Const Vital Signs: 05/11/24 15:06 05/11/24 15:07 Temperature 97.6 F L 98.6 F Temperature Source Temporal Oral Pulse Rate 125 H 115 H Respiratory Rate 19 H 18 Blood Pressure 177/92 H 164/76 H Blood Pressure Mean 120 105 Pulse Ox 100 99 Oxygen Delivery Method Room Air Room Air Positive well nourished and well developed General Appearance ED: well developed and NAD HEENT Reports moist mucous membranes normocephalic and atraumatic Eyes PERRL and EOMs intact bilaterally Neck full ROM and supple Resp normal respiratory effort and clear to auscultation bilaterally Cardio regular rate, regular rhythm and no murmurs GI non-tender and non-distended Auscultation: normoactive bowel sounds Palpation: soft Back/Spine no CVA tenderness Back/Spine Narrative: Normal inspection General Back: other FROM Extremity normal to inspection General Extremety ED: Negative for edema, pulses abnormal or tenderness General Extremity: Negative for edema or pulses abnormal Neuro oriented x3 and CN's II-XII intact bilaterally Neuro Narrative: He had a move all 4 extremities at baseline per patient Sensorium / Orientation: awake and alert Psych mental status grossly normal Skin no rashes or lesions noted and no wounds MDM MDM MDM Narrative Medical decision making narrative: Patient's urinalysis is reviewed. He has pyuria and bacteria but only 25 leukocyte esterase and negative nitrite. I reviewed some old urinalyses and cultures; he had a positive culture for greater than 100,000 CFU per mL of E. coli when he had a similar-appearing urinalysis but with more bacteria and white blood cells. However this time he is only had symptoms for a few hours. I think this is indicative of acute infection as the patient suspected at this time. He does not have any symptoms of prostatitis and clinically do not think he has pyelonephritis. He has done well with Bactrim before and his last culture was sensitive to it so we will start him on that for 7 days. He is comfortable with that plan. He was to be treated as an outpatient I think that he is stable for doing that right now. Lab Data Attestation: I reviewed the patient's lab results. Labs: Laboratory Results - last 24 hr 05/11/24 15:16 Urine Color Yellow Urine Clarity Clear Urine pH 8.0 Ur Specific [place] 1.015 Urine Protein Negative Urine Glucose (UA) Normal Urine Ketones Negative Urine Occult Blood Negative Urine Nitrite Negative Urine Bilirubin Negative Urine Urobilinogen 1 H Ur Leukocyte Esterase 25 H Urine RBC 0 SEEN Urine WBC 10-25 SEEN Ur Squamous Epith Cells 0-5 SEEN Urine Bacteria 2+ Urine Mucus 0 SEEN Discharge Plan Triage Chief Complaint: Complaint ED Provider: Yan Amaya Dx/Rx/DC Orders Clinical Impression: Acute cystitis without hematuria Instructions: ED Urinary Tract Infections in Men Prescriptions: New sulfamethoxazole-trimethoprim 800-160 mg tablet 1 tab PO BID Qty: 14 0RF No Action morphine 30 MG tablet 15 mg PO Q12H Patient Comments: pain baclofen 20 MG tablet 10 mg PO BID pregabalin [Lyrica] 150 MG capsule 200 mg PO BID Patient Comments: nerve pain Xarelto 20 MG tablet 20 mg PO DAILY Patient Comments: blood thinner tizanidine [Zanaflex] 2 mg Capsule 2 mg PO BID clomiphene citrate [Serophene] 50 mg Tablet 50 mg PO QODAY prednisone 20 MG tablet 60 mg PO DAILY Qty: 15 0RF hydroxyzine pamoate 25 MG capsule 25 mg PO TID PRN PRN (Reason: Anxiety) Qty: 30 0RF Rx Instructions: 1 to 2 tablets 3 times a day as needed for itch diclofenac sodium 50 mg tablet,delayed release (DR/EC) 50 mg PO BID PRN PRN (Reason: pain) levofloxacin 750 mg Tablet 750 mg PO DAILY 6 Days Qty: 6 0RF Primary Care Provider: Anay Martin Referrals: Anay Martin MD [Primary Care Provider] - 3-5 Days if not improving Print Language: Bruneian Disposition Disposition: Home, Self Care
[2024-05-11 15:29] LABS: Mucous, Urine 0 SEEN /hpf (<or=2+); Red Blood Cells-Urine 0 SEEN /hpf (0-5)
[2024-05-11] MEDS: Ondansetron ODT 4 MG Tablet 8 MG PO (15:30)
[2024-05-11 15:33] LABS: Color, Urine Yellow (Yellow); Glucose, Dipstick Normal (Normal); Ketone-Dipstick Negative (Negative); Leukocyte Esterase-Dipstick 25 /ul (Negative); Nitrite-Dipstick Negative (Negative); Occult Blood-Urine Negative /ul (Negative); Protein-Dipstick Negative (Negative); Specific Gravity, Urine 1.015 (1.002-1.030); Urine Bilirubin Dipstick Negative (Negative); Urine Clarity Clear (Clear); Urine Urobilinogen 1 mg/dl (Normal)
[2024-05-11 15:44] LABS: Bacteria 2+ /hpf (None Seen); Squamous Epithelial Cells - UA 0-5 SEEN /hpf (0-5); White Blood Cells 10-25 SEEN /hpf (0-5)
[2024-05-11] MEDS: Smz/Tmp Ds Tablet 1 TABLET PO (16:10)
[2024-05-11 16:12] VITALS: BP 151/64; PULSE 92; RESP 16; TEMP 37.3; O2SAT 98
== END 2024-05-11 16:13 | disposition home or self-care (01) ==
PROVIDERS: Emergency Provider Emergency Medicine; PCP Internal Medicine; Visit Provider Emergency Medicine
DX: N30.00 Acute cystitis without hematuria (principal); R82.81 Pyuria; F17.210 Nicotine dependence, cigarettes, uncomplicated; Z87.440 Personal history of urinary (tract) infections
CPT/HCPCS: 81001; 87077; 87086; 87088; 87186; 99282

== ENCOUNTER 2024-10-09 18:52 | Emergency (ER) | payer MEDICARE, MEDICAID, SELFPAY ==
[2024-10-09 18:53] VITALS: BP 151/89; PULSE 110; RESP 16; TEMP 37.6; O2SAT 95
[2024-10-09 18:55] VITALS: BMI 32.8
--- NOTE | 2024-10-09 19:06 | EX.ED.DYSGE1 ---
HPI History of Present Illness Chief Complaint: Complaint Narrative Narrative: 39-year-old male past medical history of paraplegia, has to perform self-catheterization presents with fever today. He took Tylenol prior to arrival. He states he went to urgent care because he was having more urinary frequency and low back pain. He rated his pain a 4 out of 10 and took Tylenol and feels that its improved to 3. No colicky pain in his back. He has history of chronic back pain, however. No recent chills or cough. No shortness of breath. However, he developed body aches on the way here. As he had gone to urgent care, he gave him a urine sample, but they stated that he did not have an infection and he had elevated temperature above 100 ?F there. He presents because of the fever. [facility] Medical History Smoker MTHFR mutation Factor 5 Leiden mutation, heterozygous Low testosterone in male Abscess Paraplegia Home Medications ?Medication ?Instructions ?Recorded ?Last Taken ?Type baclofen 20 mg tablet 10 mg PO BID spasms 03/18/13 01/02/24 History morphine 30 mg tablet,extended 15 mg PO Q12H pain 03/18/13 01/02/24 History release pregabalin 150 mg capsule (Lyrica) 200 mg PO BID nerve pain 08/31/15 01/02/24 History rivaroxaban 20 mg tablet (Xarelto) 20 mg PO DAILY blood thinner 08/31/15 Unknown History tizanidine 2 mg capsule (Zanaflex) 2 mg PO BID muscle relaxer 02/18/21 01/02/24 History clomiphene citrate 50 mg tablet 50 mg PO QODAY Testosterone 11/14/21 Unknown History (Serophene) hydroxyzine pamoate 25 mg capsule 25 mg PO TID PRN PRN Anxiety #30 11/14/21 Unknown Rx caps prednisone 20 mg tablet 60 mg (3 x 20 mg) PO DAILY 11/14/21 01/02/24 Rx inflammation #15 tabs diclofenac sodium 50 mg 50 mg PO BID PRN PRN pain 01/02/24 01/02/24 History tablet,delayed release levofloxacin 750 mg tablet 750 mg PO DAILY 6 days #6 tabs 01/03/24 Unknown Rx sulfamethoxazole 800 1 tab PO BID #14 TABLETS 05/11/24 Unknown Rx mg-trimethoprim 160 mg tablet Allergy/AdvReac Type Severity Reaction Status Date / Time codeine Allergy Other Verified 10/09/24 18:53 piperacillin sodium (From Allergy Hives Verified 10/09/24 18:53 Zosyn) tazobactam sodium (From Allergy Hives Verified 10/09/24 18:53 Zosyn) acetaminophen (From Vicodin) AdvReac Other Verified 10/09/24 18:53 hydrocodone bitartrate (From AdvReac Other Verified 10/09/24 18:53 Vicodin) Social History Smoking Status: Current every day smoker tobacco type: cigarettes ROS ROS ED ROS Narrative Review of systems positive for fever, exacerbation of chronic low back pain. No nausea or vomiting. No cough. Positive myalgias/body aches. Positive urinary frequency. EXAM Physical Exam Narrative Exam Narrative: Afebrile. Vital signs noted. Nontoxic-appearing. Cardiovascular examination reveals mild tachycardia. Lungs are clear to auscultation bilaterally. Abdomen soft and nontender. Neurological examination consistent with paraplegia. Const Vital Signs: 10/09/24 18:53 10/09/24 20:53 Temperature 99.7 F H Temperature Source Oral Pulse Rate 110 H 98 Respiratory Rate 16 16 Blood Pressure 151/89 H Blood Pressure Mean 109 Pulse Ox 95 91 Oxygen Delivery Method Room Air Room Air MDM MDM MDM Narrative Medical decision making narrative: Differential diagnosis includes but not limited to pneumonia versus urinary tract infection versus viral syndrome. Patient had taken Tylenol prior to arrival, hence he only has slightly elevated temperature of 99.7 here. I discussed with him imaging. I do not feel that he requires a CT of the abdomen pelvis. Additionally, I have a low suspicion for paraspinal abscess. I reviewed his laboratory work and he has slight leukocytosis of 12.1 which I think is nonspecific, hemoglobin hemoconcentrated at 16.6 with hematocrit 48.3, platelet count normal at 150. Electrolyte panel is grossly unremarkable with normal LFTs, normal sodium and potassium and chloride. BUN normal at 8 and creatinine 0.85. His urinalysis is negative for infection in the sense that it is negative for nitrites with 500 leukocyte esterase and 5-10 WBCs. When compared to prior urinalyses, he has had at least 10-25 in his white cells. I do not feel immediate antibiotics are indicated. His urine was sent for culture. His respiratory swab is negative for COVID, influenza, and RSV. Chest x-ray in 1 view interpreted by myself independently shows no evidence of pneumonia or pneumothorax. He does have elevated right hemidiaphragm. I reviewed the radiology report which confirms my independent interpretation. Upon repeat examination, he states that he feels improved. I feel he can be discharged to follow-up with his primary care provider. He was told that he will be contacted should his urine culture become positive. He is motivated for discharge. I do not feel he requires observation or further imaging or testing. Return instructions to the emergency department were reviewed. Disposition is discharged home in stable condition. History & Record Review Discussion w/independent historian: Patient Lab Data Attestation: I reviewed the patient's lab results. Labs: Laboratory Results - last 24 hr 10/09/24 10/09/24 19:13 19:36 WBC 12.1 H RBC 5.25 Hgb 16.6 H Hct 48.3 MCV 92.0 MCH 31.6 MCHC 34.4 RDW Std Deviation 46.4 H RDW Coeff of Shahla 13.6 Plt Count 150 MPV 10.7 Immature Gran % (Auto) 0.400 Neut % (Auto) 86.1 H Lymph % (Auto) 8.0 L [place] % (Auto) 4.5 Eos % (Auto) 0.5 Baso % (Auto) 0.5 Absolute Neuts (auto) 10.4 H Absolute Lymphs (auto) 0.97 Nucleated RBC % 0 Sodium 138 Potassium 3.8 Chloride 104 Carbon Dioxide 23.6 Anion Gap 11 BUN 8 Creatinine 0.85 Estim Creat Clear Calc 165.14 Est GFR (MDRD) Non-Af 113 BUN/Creatinine Ratio 9.3 L Glucose 103 H Calcium 9.2 Total Bilirubin 0.63 AST 19 ALT 23 Alkaline Phosphatase 83 Total Protein 7.1 Albumin 4.0 Globulin 3.1 Albumin/Globulin Ratio 1.3 Urine Color Yellow Urine Clarity Clear Urine pH 7.0 Ur Specific [place] 1.005 Urine Protein 15 H Urine Glucose (UA) Normal Urine Ketones Negative Urine Occult Blood 10 H Urine Nitrite Negative Urine Bilirubin Negative Urine Urobilinogen Normal Ur Leukocyte Esterase 500 H Urine RBC 0 SEEN Urine WBC 5-10 SEEN Ur Squamous Epith Cells 0 SEEN Urine Bacteria 0 SEEN Urine Mucus 0 SEEN Radiography Diagnostic Testing: Clinical Impression(s) from Imaging Studies Chest X-Ray 10/09/24 19:29 IMPRESSION: 1. No acute airspace abnormality. 2. Elevated right hemidiaphragm, progressed from prior Reading [facility] Discharge Plan Triage Chief Complaint: Complaint ED Provider: Сергей Phan Dx/Rx/DC Orders Clinical Impression: Fever, Viral syndrome Instructions: ED FUO Adult, ED Viral Syndrome (Adult) Prescriptions: No Action morphine 30 MG tablet 15 mg PO Q12H Patient Comments: pain baclofen 20 MG tablet 10 mg PO BID pregabalin [Lyrica] 150 MG capsule 200 mg PO BID Patient Comments: nerve pain Xarelto 20 MG tablet 20 mg PO DAILY Patient Comments: blood thinner tizanidine [Zanaflex] 2 mg Capsule 2 mg PO BID clomiphene citrate [Serophene] 50 mg Tablet 50 mg PO QODAY prednisone 20 MG tablet 60 mg PO DAILY Qty: 15 0RF hydroxyzine pamoate 25 MG capsule 25 mg PO TID PRN PRN (Reason: Anxiety) Qty: 30 0RF Rx Instructions: 1 to 2 tablets 3 times a day as needed for itch diclofenac sodium 50 mg tablet,delayed release (DR/EC) 50 mg PO BID PRN PRN (Reason: pain) levofloxacin 750 mg Tablet 750 mg PO DAILY 6 Days Qty: 6 0RF sulfamethoxazole-trimethoprim 800-160 mg tablet 1 tab PO BID Qty: 14 0RF Primary Care Provider: Anay Martin Referrals: Anay Martin MD [Primary Care Provider] - 3-5 Days if not improving Activity Restrictions/Additional Instructions: Your urine has been sent for culture. They will call you in a few days if you require antibiotics. Continue Tylenol or ibuprofen as needed for fever and pain. Return with sustained high fever, new or worsening symptoms. Print Language: Japanese Disposition Disposition: Home, Self Care
[2024-10-09] MEDS: 0.9% Normal Saline (1000mL) 1,000 ML 1000 ML IV (19:21)
--- NOTE | 2024-10-09 19:29 | RAD_ITS ---
PROCEDURE: CHEST 1 VIEW (PORTABLE) 10/09/2024 REASON FOR EXAM: FEVER TECHNIQUE: Frontal view of the chest. COMPARISON: 01/02/2024 FINDINGS: Cardiomediastinal silhouette is within normal limits. Improved aeration of the lung bases without a residual consolidation. Mild elevation of the right hemidiaphragm, progressed from prior. No sizable pleural effusion or pneumothorax. RAD/Chest 1 View (Portable) IMPRESSION: 1. No acute airspace abnormality. 2. Elevated right hemidiaphragm, progressed from prior Reading Location: [id number]
[2024-10-09 19:38] LABS: Absolute Lymphocyte Count 0.97 X10^3/uL (0.83-4.51); Absolute Neutrophil Count 10.4 X10^3/uL (2.0-7.7); Basophil# 0.06 X10^3/uL; Basophil% 0.5 % (0-1); Eosinophil# 0.06 X10^3/uL; Eosinophils% 0.5 % (0-5); Hematocrit 48.3 % (40-54); Hemoglobin 16.6 g/dL (13.0-16.5); Lymphocyte # 0.97 X10^3/ul (0.83-4.51); Mean Corp Hgb Conc 34.4 g/dL (32-36); Mean Corpuscular Hgb 31.6 pg (27.0-32.0); Mean Platelet Vol. 10.7 fl (6.2-12.0); Monocyte# 0.54 X10^3/uL; Monocyte% 4.5 % (0-10); NRBC Flagged by Analyzer 0 % (0-5); Neutrophil # 10.37 X10^3/uL (2.7-7.7); Neutrophil % 86.1 % (47-70); Platelet Count 150 K/mm3 (150-450); RBC Distribution Width CV 13.6 % (11.6-14.6); RBC Distribution Width SD 46.4 fl (35.1-43.9); Red Blood Count 5.25 M/mm3 (4.6-6.2); White Blood Count 12.1 K/mm3 (4.4-11.0)
[2024-10-09 19:51] LABS: ALB/GLOB Ratio 1.3 RATIO (0.9-2.4); AST(SGOT) 19 U/L (<=37); Alanine Aminotransfer ALT/SGPT 23 U/L (<=46); Alkaline Phosphatase 83 U/L (40-129); Anion Gap 11 (5-15); BUN 8 mg/dL (4-19); BUN/Creat Ratio 9.3 RATIO (10-20); Calcium,Total 9.2 mg/dL (7.6-11.0); Carbon Dioxide 23.6 mmol/L (21.0-32.0); Chloride 104 mmol/L (98-108); Creatinine, Serum 0.85 mg/dL (0.70-1.20); EST Glomerular Filtration Rate 113 (>60); Estimated Creatinine Clearance 165.14 ml/min (50-250); Globulin 3.1 g/dL (2.2-4.2); Glucose 103 mg/dL (70-99); Potassium 3.8 mmol/L (3.3-5.1); Protein, Total 7.1 g/dL (5.9-8.4); Sodium Level 138 mmol/L (133-145); Total Bilirubin 0.63 mg/dL (0.00-1.30)
[2024-10-09 19:51] LABS: Bacteria 0 SEEN /hpf (None Seen); Mucous, Urine 0 SEEN /hpf (<or=2+); Red Blood Cells-Urine 0 SEEN /hpf (0-5); Squamous Epithelial Cells - UA 0 SEEN /hpf (0-5)
[2024-10-09 20:31] LABS: Color, Urine Yellow (Yellow); Glucose, Dipstick Normal (Normal); Ketone-Dipstick Negative (Negative); Leukocyte Esterase-Dipstick 500 /ul (Negative); Nitrite-Dipstick Negative (Negative); Occult Blood-Urine 10 /ul (Negative); Protein-Dipstick 15 mg/dl (Negative); Specific Gravity, Urine 1.005 (1.002-1.030); Urine Bilirubin Dipstick Negative (Negative); Urine Clarity Clear (Clear); Urine Urobilinogen Normal (Normal)
[2024-10-09 20:50] LABS: White Blood Cells 5-10 SEEN /hpf (0-5)
[2024-10-09 20:53] VITALS: PULSE 98; RESP 16; O2SAT 91
== END 2024-10-09 21:32 | disposition home or self-care (01) ==
PROVIDERS: Emergency Provider Emergency Medicine; PCP Internal Medicine; Referring Provider Emergency Medicine; Visit Provider Emergency Medicine
DX: N39.0 Urinary tract infection, site not specified (principal); G82.20 Paraplegia, unspecified; B96.1 Klebsiella pneumoniae [K. pneumoniae] as the cause of diseases classified elsewhere; B34.9 Viral infection, unspecified; E72.12 Methylenetetrahydrofolate reductase deficiency; R35.0 Frequency of micturition; D68.51 Activated protein C resistance; M54.50 Low back pain, unspecified; G89.29 Other chronic pain; Z11.52 Encounter for screening for COVID-19; F17.210 Nicotine dependence, cigarettes, uncomplicated; Z79.01 Long term (current) use of anticoagulants; Z79.52 Long term (current) use of systemic steroids; Z79.899 Other long term (current) drug therapy
CPT/HCPCS: 71045; 80053; 81001; 85025; 87077; 87086; 87088; 87186; 87631; 96360; 96361; 99283; A4216

== ENCOUNTER → 2024-12-06 | Outpatient (CLI) | payer MEDICARE, MEDICAID, SELFPAY ==
--- OUTSIDE RECORDS SUMMARY | 2024-12-06 07:03 | XMS RPT_ITS | CCD ---
Author Organization [facility] Care Team Providers Care 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 Name Role Phone DAYSI MUNOZ (PASQUALE) Unavailable Unavail able DAYSI MUNOZ (PASQUALE) Unavailable Unavail able Tiffany Dodd Attending Unavailable PROVIDER, UNKNOWN Referring Unavailable UNKNOWN, PROVIDER Primary Care Unavailable Tiffany Dodd Attending Unavailable PROVIDER, UNKNOWN Referring Unavailable UNKNOWN, PROVIDER Primary Care Unavailable Anay Roque MD Primary Care Provider Chuck Guadarrama MD Unavailable [phone] Vanna Soares Unavailable Unknown, Referring Provider Unavailable Unav ailable Anay Roque MD Primary Care Provider Chuck Guadarrama MD Unavailable Vanna Soares Unavailable UNKNOWN, PCP Primary Care Unavailable Ismael, Dr. Syed Cole Attending Unavaila ble Ismael, Dr. Syed Cole Referring Unavaila Vanna Song Unavailable Chuck Guadarrama MD Unavailable Anay Roque MD Primary Care Provider Chuck Guadarrama MD Unavailable [phone] Vanna Soares Unavailable GANVALARIE, ANAY Primary Care Unavailable GANTA ANAY Referring Unavailable GANTA ANAY Primary Care Unavailable GANTA, ANAY Primary Care Unavailable BRIAN MULTANI Admitting UnavailARON Palmer JR Attending Unavaila ble PROVIDER, UNKNOWN Consulting Unavailable Vanna Soares Unavailable Vanna Soares MD Unavailable Mario KIRKLAND, [facility] Primary Care Provider Lizbeth ROJAS, Fozia Swann Unavailable Older IMPORT DISPATCHER.TELEVISION DIRECTOR, Soila Unavailable Florentin ROJAS, Alysha Unavailable Provider , Kamran Unavailable Unavailable Provider , Kamran Unavailable Unavailable Dr. Anay Roque MD Primary Care Provider Сергей Phan MD Referring Provider Сергей Phan MD Emergency Provider [phone] Yan Amaya Attending Unavailable Ganta, Anay Primary Care Unavailable Сергей Phan Attending Unavailable Сергей Phan Referring Unavailable Ganta, Anay Primary Care Unavailable Jopperi, Seven Consulting Unavailable Pop Dahl Attending Unavailable Ganta, Anay Primary Care Unavailable Jopperi, Seven Admitting Unavailable Jocatrachitoeri Seven Attending Unavailable Ganta, Anay Primary Care Unavailable Jopperi, Seven Admitting Unavailable Jopperi, Seven Consulting Unavailable Pop Dahl Attending Unavailable Pop Dahl Consulting Unavailable TAHIR CAMP Attending Unavailable RUSLAN SHERWOOD Referring Unavailable GANTA, ANAY Primary Care Unavailable GANTA, ANAY Primary Care Unavailable CARLIE GUSTAFSON Attending Unavailable SHAQ SALINAS Referring Unavailable GANTA, ANAY Primary Care Unavailable RENATA NAPIER Attending Unavailable GANTA, ANAY Primary Care Unavailable GANTA, ANAY Referring Unavailable GANTA, ANAY Primary Care Unavailable GANTA, ANAY Attending Unavailable SELF Referring Unavailable GANTA, ANAY Primary Care Unavailable LUDA ARMAS Attending Unavailable SELF Referring Unavailable GANTA, ANAY Primary Care Unavailable GANTA, ANAY Primary Care Unavailable JAMEY SHLEBY Attending Unavailable GLYNN TRUJILLO Referring Unavailable GANTA, ANAY Primary Care Unavailable ALEXIS ANDERSON Attending Unavailable JACKSON DE LA ROSA Referring Unavailable GANTA, ANAY Primary Care Unavailable ALEXIS ANDERSON Attending Unavailable JACKSON DE LA ROSA Referring Unavailable GANTA, ANAY Primary Care Unavailable ALEXIS ANDERSON Attending Unavailable DAYSI ROQUE Referring Unavailable GANTA, ANAY Primary Care Unavailable ALEXIS ANDERSON Attending Unavailable JACKSON DE LA ROSA Referring Unavailable GANTA, ANAY Primary Care Unavailable ALEXIS ANDERSON Attending Unavailable HEHR, DAYSI L Referring Unavailable GANTA, ANAY Primary Care Unavailable ALEXIS ANDERSON Attending Unavailable HEHR, DAYSI L Referring Unavailable GANTA, ANAY Primary Care Unavailable ALEXIS ANDERSON Attending Unavailable HEHR, DAYSI L Referring Unavailable GANTA, ANAY Primary Care Unavailable OZCEFERINO VALDEZ Attending Unavailable GANTA, ANAY Primary Care Unavailable HEHR, DAYSI L Attending Unavailable GANTA, ANAY Primary Care Unavailable GANTA, ANAY Referring Unavailable GANTA, ANAY Primary Care Unavailable DAPUL, RUSLAN P Attending Unavailable DAPUL, RUSLAN P Referring Unavailable GANTA, ANAY Primary Care Unavailable JACKSON DE LA ROSA Attending Unavailable HEHR, DAYSI L Referring Unavailable GANTA, ANAY Primary Care Unavailable HEHR, DAYSI L Referring Unavailable GANTA, ANAY Primary Care Unavailable FATUMA BEAN Attending Unavailab LUDA Vicente Referring Unavailable GANTA, ANAY Primary Care Unavailable JIMENA KRAMER Attending Unavailable GANTA, ANAY Primary Care Unavailable GANTA, ANAY Primary Care Unavailable CARLIE GUSTAFSON Attending Unavailable GANTA, ANAY Attending Unavailable GANTA, ANAY Primary Care Unavailable JIMENA KRAMER Attending Unavailable GANTA, ANAY Primary Care Unavailable CEFERINO JONES Attending Unavailable OZINGACEFERINO Referring Unavailable GANTA, ANAY Primary Care Unavailable SHAQ SALINAS Attending Unavailable OZINGCEFERINO Kruger Referring Unavailable GANTA, ANAY Primary Care Unavailable SHAQ SALINAS Referring Unavailable GANTA, ANAY Primary Care Unavailable JIMENA KRAMER Attending Unavailable GANTA, ANAY Primary Care Unavailable HEHR, DAYSI L Attending Unavailable GANTA, ANAY Primary Care Unavailable HEHR, DAYSI L Attending Unavailable GANTA, ANAY Primary Care Unavailable GANTA, ANAY Attending Unavailable GANTA, ANAY Primary Care Unavailable JU GUSTAFSON Attending Unavailable GANTA, ANAY Primary Care Unavailable GANTA, ANAY Attending Unavailable GANTA, ANAY Primary Care Unavailable HEHR, DAYSI L Attending Unavailable GANTA, ANAY Primary Care Unavailable ALEXIS ANDERSON Attending Unavailable HEHR, DAYSI L Referring Unavailable GANTA, ANAY Primary Care Unavailable HEHR, DAYSI L Attending Unavailable GANTA, ANAY Primary Care Unavailable JACKSON RALPH Attending Unavailable GANTA, ANAY Referring Unavailable GANTA, ANAY Primary Care Unavailable CEFERINO JONES Referring Unavailable GANTA, ANAY Primary Care Unavailable HEHR, DAYSI L Attending Unavailable GANTA, ANAY Primary Care Unavailable GANTA, ANAY Attending Unavailable GANTA, ANAY Primary Care Unavailable GANTA, ANAY Referring Unavailable GANTA, ANAY Primary Care Unavailable HEHR, DAYSI L Attending Unavailable GANTA, ANAY Primary Care Unavailable HEHR, DAYSI L Referring Unavailable GANTA, ANAY Primary Care Unavailable HEHR, DAYSI L Referring Unavailable GANTA, ANAY Primary Care Unavailable HEHR, DAYSI L Referring Unavailable GANTA, ANAY Primary Care Unavailable HEHR, DAYSI L Referring Unavailable GANTA, ANAY Primary Care Unavailable HEHR, DAYSI L Referring Unavailable GANTA, ANAY Primary Care Unavailable HEHR, DAYSI L Referring Unavailable GANTA, ANAY Primary Care Unavailable HEHR, DAYSI L Referring Unavailable GANTA, ANAY Primary Care Unavailable HEHR, DAYSI L Referring Unavailable GANTA, ANAY Primary Care Unavailable HEHR, DAYSI L Referring Unavailable GANTA, ANAY Primary Care Unavailable HEHR, DAYSI L Referring Unavailable GANTA, ANAY Primary Care Unavailable Allergies Allergy Classification Reported Allergen(s) Allergy Type Date of Onset Reaction(s) Facility (20 sources) acetaminophen / HYDROcodone; Translations: [HYDROCODONE-ACET AMINOPHEN] Drug Allergy 4 Other: See Comments [facility] [place] Repository (20 sources) codeine; Translations: [CODEINE] Drug Allergy 7 Intolerance, Other: See Comments [facility] [place] Repository (20 sources) piperacillin / tazobactam; Translations: [PIPERACILLIN-MICHAEL OBACTAM] Drug Allergy 4 [facility] Repository (20 sources) Piperacillin / tazobactam; Translations: [PIPERACILLIN-MICHAEL OBACTAM-DEXTRS] Drug Allergy 0 [facility] (2 sources) Acetaminophen Drug Allergy 2 [facility] Comment on above: severe headaches (3 sources) HYDROcodone; Translations: [hydrocodone bitartrate] Drug Allergy 2 [facility] Comment on above: severe headaches (3 sources) Piperacillin; Translations: [piperacillin sodium] Drug Allergy 2 [facility] (3 sources) tazobactam; Translations: [tazobactam sodium] Drug Allergy 2 [facility] (20 sources) Piperacillin; Translations: [PIPERACILLIN] Drug Allergy 0 [facility] (20 sources) tazobactam; Translations: [TAZOBACTAM] Drug Allergy 0 [facility] (1 source) Acetaminophen Drug Allergy 5 [facility] Repository Medications Current Medications Medication Drug Class(es) Dates Sig (Normalized) Sig (Original) albuterol 0.83 mg/ml inhalation solution (20 sources) beta2-Adrenergic Agonist Start: 05-13-2024 End: 06-12-2024 albuterol (PROVENTIL) 2.5 mg /3 mL (0.083 %) nebulizer solution Indications: Mild intermittent asthma with acute exacerbation (HCC) Use 3 mL via nebulizer every 6 hours as needed for wheezing/shortness of breath. 60 mL 1 05/13/2024 Active Start: 01-09-2024 End: 05-13-2024 take 2 puff(s) by inhalation every four hours as needed for wheezing albuterol HFA (PROVENTIL HFA, VENTOLIN HFA) 90 mcg/actuation inhaler Inhale 2 Puffs as instructed every 4 hours as needed for wheezing/shortness of breath. 18 g 01/09/2024 05/13/2024 Discontinued End: 01-09-2024 take 2 puff(s) by inhalation every four hours as needed for wheezing albuterol HFA (PROVENTIL HFA, VENTOLIN HFA) 90 mcg/actuation inhaler Inhale 2 Puffs as instructed every 4 hours as needed for wheezing/shortness of breath. 01/09/2024 Discontinued Comment on above: Inhale 2 Puffs as in structed every 4 hours as needed for wheezing/shortness of breath. amoxicillin 875 mg / clavulanate 125 mg oral tablet (4 sources) Penicillin-class Antibacterial Start: 025 End: take 1 tablet by mouth every twelve hours amoxicillin-clavula viv potassium (AUGMENTIN) 875-125 mg per tablet Take 1 tablet by mouth every 12 hours for 10 days. 20 tablet 07/17/2024 07/27/2024 Active azithromycin 250 mg oral tablet (2 sources) Macrolide Antimicrobial Start: End: take 2 tablets by mouth once daily, then take 1 tablet by mouth once daily azithromycin (ZITHROMAX) 250 mg tablet Take 2 tablets by mouth once daily for 1 day, THEN 1 tablet once daily for 4 days. 6 tablet 0 09/24/2021 09/29/2021 Active Comment on above: Take 2 tablets by mo uth once daily for 1 day, THEN 1 tablet once daily for 4 days. baclofen 20 mg oral tablet (20 sources) gamma-Aminobutyric Acid-ergic Agonist Start: End: take 2 tablets by mouth twice daily baclofen 20 mg tablet Take 2 tablets by mouth two times a day. 120 tablet 5 10/08/2024 Active Start: 08-21-2024 End: 08-25-2024 take 2 tablets by mouth four times daily baclofen 15 mg tablet Take 2 tablets by mouth four times daily. 720 tablet 3 08/21/2024 08/25/2024 Discontinued Start: 08-21-2024 End: 08-21-2025 take 2 tablets by mouth four times daily baclofen 15 mg tablet Take 2 tablets by mouth four times daily. 720 tablet 3 08/21/2024 08/21/2025 Active Start: 07-17-2024 End: 08-21-2024 take 2 tablets by mouth every six hours in the evening baclofen 15 mg tablet Take 2 tablets by mouth every 6 hours. 240 tablet 1 07/17/2024 7:03 PM EST 07/17/2024 08/21/2024 Discontinued Start: 07-17-2024 take 2 tablets by mo uth every six hours in the evening baclofen 15 mg tablet Take 2 tablets by mouth every 6 hours. 240 tablet 1 07/17/2024 7:03 PM EST 07/17/2024 Active Start: 07-17-2024 take 2 tablets by mo uth every six hours baclofen 15 mg tablet Take 2 tablets by mouth every 6 hours. 240 tablet 1 07/17/2024 Active Start: 07-08-2024 End: 10-06-2024 take 2 tablets by mouth three times daily baclofen 20 mg tablet Take 2 tablets by mouth three times a day. 180 tablet 2 07/08/2024 10/06/2024 Active Start: 06-20-2024 End: 09-18-2024 take 1.5 tablets by mouth twice daily baclofen 20 mg tablet Take 1.5 tablets by mouth two times a day. 90 tablet 2 06/20/2024 07/08/2024 Discontinued (Course of therapy completed) Start: 05-26-2024 End: 05-27-2024 baclofen (LIORESAL) 80,000 m cg injection Start: 03-27-2024 End: 03-27-2024 baclofen (LIORESAL) 80,000 m cg injection Start: 03-27-2024 End: 03-27-2024 80,000 mcg (40 mL), INTRATHE HAI, ONCE, 1 dose, On Ninfa 03/27/24 at 1000, 40 ml kit 8566 = FORMERLY NAMED [facility] 01022-465-82 Start: 01-14-2024 End: 01-14-2024 baclofen (LIORESAL) 80,000 m cg injection Start: 01-14-2024 End: 01-14-2024 baclofen (LIORESAL) 80,000 m cg injection Start: 10-25-2023 End: 10-25-2023 baclofen (LIORESAL) 80,000 m cg injection Start: 10-25-2023 End: 10-25-2023 baclofen (LIORESAL) 80,000 m cg injection Start: 08-09-2023 End: 08-09-2023 baclofen (LIORESAL) 80,000 m cg injection Start: 03-18-2013 take 10 mg by mouth twice sharri y Baclofen Active 10 MG PO TWICE A DAY March 18, 2013 11:40am Start: 03-18-2013 take 10 mg by mouth twice sharri y Baclofen 20 MG tablet Active 10 mg PO TWICE A DAY March 18, 2013 12:00am End: 07-17-2024 baclofen, LIORESAL, (LIORESA L) 2,000 mcg/mL injection [facility] refill Kit #8566, Lioresal 2000 mcg/ml, 40 ml pump to be refilled as directed. 07/17/2024 Discontinued End: 06-20-2024 take 1 tablet by mouth twice daily baclofen (LIORESAL) 10 mg tablet Take 10 mg by mouth twice daily. 06/20/2024 Discontinued (Course of therapy completed) Comment on above: Take 10 mg by mouth twice daily. [facility] refill Kit #8566, Lioresal 2000 mcg/ml, 40 ml pump to be refilled as directed. cephalexin 500 mg oral capsule (20 sources) Cephalosporin Antibacterial Start: End: take 1 capsule by mouth twice daily cephALEXin (KEFLEX) 500 mg capsule Take 1 capsule by mouth two times a day for 7 days. 14 capsule 10/13/2024 10/20/2024 Active Start: 01-12-2022 End: 01-19-2022 take 2 capsules by mouth three times daily cephALEXin (KEFLEX) 500 mg capsule Take 2 capsules by mouth three times daily for 19 doses. 38 capsule 0 01/12/2022 01/19/2022 Active Start: 03-10-2021 End: 07-13-2024 cephALEXin (KEFLEX) 500 mg c apsule 1 capsule. 03/10/2021 07/13/2024 Discontinued Comment on above: Take 1 capsule by mo [facility] twice daily for 7 days. Take 2 capsules by m out three times daily for 19 doses. clomiPHENE citrate 50 mg oral tablet (20 sources) Estrogen Agonist/Antagonist Start: 09-19-2024 take 1 tablet by mouth every other day clomiPHENe (CLOMID) 50 mg tablet Take 1 tablet by mouth every other day. 90 tablet 5 09/19/2024 Active Start: 05-25-2023 End: 07-13-2024 take 1 tablet by mouth three times weekly clomiPHENe (CLOMID) 50 mg tablet Take 1 tablet by mouth three times a week. 90 tablet 5 05/25/2023 07/13/2024 Discontinued Start: 03-09-2021 End: 05-25-2023 take 1 tablet by mouth every other day clomiPHENe (CLOMID) 50 mg tablet Take 1 tablet by mouth every other day. 90 tablet 5 09/19/2024 Active Comment on above: Take 1 tablet by cassy every other day. (take on ODD days) Take 1 tablet by [facility] three times a week. clotrimazole 10 mg/ml topical cream (20 sources) Azole Antifungal Start: 01-13-20 End: 07-13-19 clotrimazole (LOTRIMIN, CLOTRIM) 1 % cream Indications: Tinea pedis of both feet Apply to affected area twice daily for 47 doses. 45 g 0 01/12/2022 02/05/2022 Active Comment on above: Apply to affected ar ea twice daily for 47 doses. diazePAM 2 mg oral tablet (20 sources) Benzodiazepine Start: 07-24-19 End: 01-21-20 diazePAM (VALIUM) 2 mg tablet Indications: Spasticity , T4 spinal cord injury, sequela (HCC) Take 1 tablet twice daily and 2 tablets at bedtime 120 tablet 5 07/24/2024 01/20/2025 Active diclofenac sodium 50 mg delayed release oral tablet (20 sources) Nonsteroidal Anti-inflammatory Drug Start: 01-02-20 take 1 tablet by mouth twice daily as needed for pain Diclofenac Sodium 50 mg tablet,delayed release (DR/EC) Active 50 mg PO TWICE DAILY NEEDED as needed for pain January 02, 2024 12:00am Start: 01-16-2023 End: 07-17-2024 take 1 tablet by mouth twice daily diclofenac, EC, (VOLTAREN) 25 mg EC tablet Take 1 tablet by mouth twice daily. 01/16/2023 07/17/2024 Discontinued Comment on above: Take 1 tablet by [facility] twice daily. docusate sodium 100 mg oral capsule (20 sources) Start: 022 End: take 100 mg by mouth twice daily Docusate Sodium Active 100 MG PO TWICE A DAY November 14, 2021 1:01am Comment on above: Take 100 mg by mouth twice daily. ergocalciferol 1.25 mg oral capsule (20 sources) Provitamin D2 Compound Start: 025 take 1 capsule by mouth two times weekly, then take 1 capsule by mouth two times weekly, then take 1 capsule by mouth every week ergocalciferol 50,000 unit capsule (VITAMIN D2, DRISDOL) Take 1 capsule by mouth two times a week. TO BE TAKEN ORALLY DIRECTED. Take 1 tablet by mouth twice weekly [id number], then decrease to 1 tablet weekly. 24 capsule 1 10/03/2024 Active hydrOXYzine pamoate 25 mg oral capsule (20 sources) Antihistamine Start: 025 take 1 capsule by mouth every eight hours as needed hydrOXYzine pamoate (VISTARIL) 25 mg capsule Take 1 capsule by mouth three times a day as needed for itching/rash or anxiety. 30 capsule 1 06/20/2024 Active Start: 04-06-2022 End: 06-17-2024 take 1 capsule by mouth every eight hours as needed hydrOXYzine pamoate (VISTARIL) 25 mg capsule Take 1 capsule by mouth three times daily as needed for itching/rash or anxiety. 30 capsule 1 04/06/2022 06/17/2024 Discontinued Start: 11-14-2021 End: 12-23-2021 take 1 capsule by mouth every eight hours as needed hydrOXYzine pamoate (VISTARIL) 25 mg capsule Take 25 mg by mouth three times daily as needed for itching/rash. 0 11/14/2021 12/23/2021 Discontinued Comment on above: Take 25 mg by mouth three times daily as needed for itching/rash. Take 1 capsule by mo [facility] three times daily as needed for itching/rash or anxiety. levoFLOXacin 750 mg oral tablet (7 sources) Quinolone Antimicrobial Start: 01-03-20 End: 02-07-20 24 take 1 tablet by mouth once daily levoFLOXacin (LEVAQUIN) 750 mg tablet Indications: Cellulitis of left upper extremity , Urinary tract infection without hematuria, site unspecified Take 1 tablet by mouth once daily for 3 days. 3 tablet 02/04/2024 02/07/2024 Active Start: 06-14-2022 End: 06-24-2022 take 1 tablet by mouth once daily levoFLOXacin (LEVAQUIN) 500 mg tablet Indications: Epididymitis, left Take 1 tablet by mouth once daily for 10 days. 10 tablet 0 06/14/2022 06/24/2022 Active Comment on above: Take 1 tablet by cassy once daily for 10 days. lidocaine 0.05 mg/mg topical ointment (20 sources) Antiarrhythmic, Amide Local Anesthetic lidocaine (XYLOCAINE ) 5 % ointment Apply to affected area as needed. Active Comment on above: Apply to affected ar ea as needed. linezolid 600 mg oral tablet (4 sources) Oxazolidinone Antibacterial Start: 2024 End: 2024 take 1 tablet by mouth every twelve hours linezolid (ZYVOX) 600 mg tablet Take 1 tablet by mouth every 12 hours for 20 doses. 20 tablet 07/17/2024 07/27/2024 Active magnesium citrate 58.2 mg/ml oral solution (1 source) Start: 2023 End: 2023 take 296 mL by mouth once magnesium citrate solution Take 296 mL by mouth one time only for 1 dose. 296 mL 0 09/19/2023 09/19/2023 Active Comment on above: Take 296 mL by mouth one time only for 1 dose. methylPREDNISolone (4 sources) Corticosteroid Start: 2023 End: 2023 methylPREDNISolone (MEDROL, DANGELO,) 4 mg Dose-Pack Indications: Mild intermittent asthma with acute exacerbation Follow dosing instructions, take with food. 21 tablet 05/13/2024 05/19/2024 Active Start: 08-01-2023 End: 08-07-2023 methylPREDNISolone (MEDROL, DANGELO,) 4 mg Dose-Pack As instructed per package 21 tablet 0 08/01/2023 08/07/2023 Active Comment on above: As instructed per pasquale perales metroNIDAZOLE 500 mg oral tablet (4 sources) Nitroimidazole Antimicrobial Start: 07-17-19 End: 07-27-19 25 take 1 tablet by mouth every eight hours metroNIDAZOLE (FLAGYL) 500 mg tablet Take 1 tablet by mouth every 8 hours for 10 days. 30 tablet 07/17/2024 07/27/2024 Active montelukast 10 mg oral tablet (20 sources) Leukotriene Receptor Antagonist Start: 02-04-20 24 take 1 tablet by mouth once daily at bedtime montelukast (SINGULAIR) 10 mg tablet Take 1 tablet by mouth daily at bedtime. 30 tablet 5 02/04/2024 Active morphine sulfate 15 mg extended release oral tablet (20 sources) Opioid Agonist Start: 01-13-20 End: 01-18-20 22 take 1 tablet by mouth every twelve hours morphine SR (MS CONTIN, ORAMORPH SR) 15 mg 12 hr tablet Indications: Spinal cord injury, T7-T12 ([facility]) , Chronic pain syndrome Take 1 tablet by mouth every 12 hours for 5 days. 10 tablet 01/12/2022 Active Start: 03-18-2013 take 15 mg by mouth every twelve hours Morphine Active 15 MG PO Q12H March 18, 2013 11:40am Start: 03-18-2013 Morphine 30 MG tablet Active 15 mg PO Q12H March 18, 2013 12:00am End: 01-12-2022 take 1 tablet by mouth twice daily, then take 1 tablet by mouth every twelve hours morphine SR (MS CONTIN, ORAMORPH SR) 15 mg 12 hr tablet Take 15 mg by mouth twice daily. 01/12/2022 Discontinued Comment on above: Take 15 mg by mouth twice daily. Take 1 tablet by cassy th every 12 hours for 5 days. 24 hr nicotine 0.292 mg/hr transdermal system (20 sources) Cholinergic Nicotinic Agonist Start: apply 1 dose transdermal route every twenty-four hours nicotine (NICODERM) 7 mg/24 hr Apply 1 patch as directed every 24 hours. Patient should start on December 30, 2024. 30 patch 12/30/2024 Active Start: 12-30-2024 apply 1 dose transde rmal route every twenty-four hours nicotine (NICODERM) 7 mg/24 hr Apply 1 patch as directed every 24 hours. Patient should start on December 30, 2024. 30 patch 12/30/2024 Active Start: 12-30-2024 apply 1 dose transde rmal route every twenty-four hours nicotine (NICODERM) 7 mg/24 hr Apply 1 patch as directed every 24 hours. Patient should start on December 30, 2024. 30 patch 12/30/2024 Active Start: 12-30-2024 apply 1 dose transde rmal route every twenty-four hours nicotine (NICODERM) 7 mg/24 hr Apply 1 patch as directed every 24 hours. Patient should start on December 30, 2024. 30 patch 12/30/2024 Active Start: 12-30-2024 apply 1 dose transde rmal route every twenty-four hours nicotine (NICODERM) 7 mg/24 hr Apply 1 patch as directed every 24 hours. Patient should start on December 30, 2024. 30 patch 12/30/2024 Active Start: 12-30-2024 apply 1 dose transde rmal route every twenty-four hours nicotine (NICODERM) 7 mg/24 hr Apply 1 patch as directed every 24 hours. Patient should start on December 30, 2024. 30 patch 12/30/2024 Active Start: 12-30-2024 apply 1 dose transde rmal route every twenty-four hours nicotine (NICODERM) 7 mg/24 hr Apply 1 patch as directed every 24 hours. Patient should start on December 30, 2024. 30 patch 12/30/2024 Active Start: 12-30-2024 apply 1 dose transde rmal route every twenty-four hours nicotine (NICODERM) 7 mg/24 hr Apply 1 patch as directed every 24 hours. Patient should start on December 30, 2024. 30 patch 12/30/2024 Active Start: 12-30-2024 apply 1 dose transde rmal route every twenty-four hours nicotine (NICODERM) 7 mg/24 hr Apply 1 patch as directed every 24 hours. Patient should start on December 30, 2024. 30 patch 12/30/2024 Active Start: 12-30-2024 apply 1 dose transde rmal route every twenty-four hours nicotine (NICODERM) 7 mg/24 hr Apply 1 patch as directed every 24 hours. Patient should start on December 30, 2024. 30 patch 12/30/2024 Active Start: 12-30-2024 apply 1 dose transde rmal route every twenty-four hours nicotine (NICODERM) 7 mg/24 hr Apply 1 patch as directed every 24 hours. Patient should start on December 30, 2024. 30 patch 12/30/2024 Active Start: 12-30-2024 apply 1 dose transde rmal route every twenty-four hours nicotine (NICODERM) 7 mg/24 hr Apply 1 patch as directed every 24 hours. Patient should start on December 30, 2024. 30 patch 12/30/2024 Active Start: 12-30-2024 apply 1 dose transde rmal route every twenty-four hours nicotine (NICODERM) 7 mg/24 hr Apply 1 patch as directed every 24 hours. Patient should start on December 30, 2024. 30 patch 12/30/2024 Active Start: 12-30-2024 apply 1 dose transde rmal route every twenty-four hours nicotine (NICODERM) 7 mg/24 hr Apply 1 patch as directed every 24 hours. Patient should start on December 30, 2024. 30 patch 12/30/2024 Active Start: 12-30-2024 apply 1 dose transde rmal route every twenty-four hours nicotine (NICODERM) 7 mg/24 hr Apply 1 patch as directed every 24 hours. Patient should start on December 30, 2024. 30 patch 12/30/2024 Active Start: 12-30-2024 apply 1 dose transde rmal route every twenty-four hours nicotine (NICODERM) 7 mg/24 hr Apply 1 patch as directed every 24 hours. Patient should start on December 30, 2024. 30 patch 12/30/2024 Active Start: 12-30-2024 apply 1 dose transde rmal route every twenty-four hours nicotine (NICODERM) 7 mg/24 hr Apply 1 patch as directed every 24 hours. Patient should start on December 30, 2024. 30 patch 12/30/2024 Active Start: 12-30-2024 apply 1 dose transde rmal route every twenty-four hours nicotine (NICODERM) 7 mg/24 hr Apply 1 patch as directed every 24 hours. Patient should start on December 30, 2024. 30 patch 12/30/2024 Active Start: 12-30-2024 apply 1 dose transde rmal route every twenty-four hours nicotine (NICODERM) 7 mg/24 hr Apply 1 patch as directed every 24 hours. Patient should start on December 30, 2024. 30 patch 12/30/2024 Active Start: 12-30-2024 apply 1 dose transde rmal route every twenty-four hours nicotine (NICODERM) 7 mg/24 hr Apply 1 patch as directed every 24 hours. Patient should start on December 30, 2024. 30 patch 12/30/2024 Active Start: 12-30-2024 apply 1 dose transde rmal route every twenty-four hours nicotine (NICODERM) 7 mg/24 hr Apply 1 patch as directed every 24 hours. Patient should start on December 30, 2024. 30 patch 12/30/2024 Active Start: 12-30-2024 apply 1 dose transde rmal route every twenty-four hours nicotine (NICODERM) 7 mg/24 hr Apply 1 patch as directed every 24 hours. Patient should start on December 30, 2024. 30 patch 12/30/2024 Active Start: 11-30-2024 apply 1 dose transde rmal route every twenty-four hours nicotine (NICODERM) 14 mg/24 hr Indications: nicotine withdrawal symptoms , smoking cessation Apply 1 patch as directed every 24 hours. Patient should start on November 30, 2024. 30 patch 11/30/2024 Active Start: 11-30-2024 apply 1 dose transde rmal route every twenty-four hours nicotine (NICODERM) 14 mg/24 hr Indications: nicotine withdrawal symptoms , smoking cessation Apply 1 patch as directed every 24 hours. Patient should start on November 30, 2024. 30 patch 11/30/2024 Active Start: 11-30-2024 apply 1 dose transde rmal route every twenty-four hours nicotine (NICODERM) 14 mg/24 hr Indications: nicotine withdrawal symptoms , smoking cessation Apply 1 patch as directed every 24 hours. Patient should start on November 30, 2024. 30 patch 11/30/2024 Active Start: 11-30-2024 apply 1 dose transde rmal route every twenty-four hours nicotine (NICODERM) 14 mg/24 hr Indications: nicotine withdrawal symptoms , smoking cessation Apply 1 patch as directed every 24 hours. Patient should start on November 30, 2024. 30 patch 11/30/2024 Active Start: 11-30-2024 apply 1 dose transde rmal route every twenty-four hours nicotine (NICODERM) 14 mg/24 hr Indications: nicotine withdrawal symptoms , smoking cessation Apply 1 patch as directed every 24 hours. Patient should start on November 30, 2024. 30 patch 11/30/2024 Active Start: 11-30-2024 apply 1 dose transde rmal route every twenty-four hours nicotine (NICODERM) 14 mg/24 hr Indications: nicotine withdrawal symptoms , smoking cessation Apply 1 patch as directed every 24 hours. Patient should start on November 30, 2024. 30 patch 11/30/2024 Active Start: 11-30-2024 apply 1 dose transde rmal route every twenty-four hours nicotine (NICODERM) 14 mg/24 hr Indications: nicotine withdrawal symptoms , smoking cessation Apply 1 patch as directed every 24 hours. Patient should start on November 30, 2024. 30 patch 11/30/2024 Active Start: 11-30-2024 apply 1 dose transde rmal route every twenty-four hours nicotine (NICODERM) 14 mg/24 hr Indications: nicotine withdrawal symptoms , smoking cessation Apply 1 patch as directed every 24 hours. Patient should start on November 30, 2024. 30 patch 11/30/2024 Active Start: 11-30-2024 apply 1 dose transde rmal route every twenty-four hours nicotine (NICODERM) 14 mg/24 hr Indications: nicotine withdrawal symptoms , smoking cessation Apply 1 patch as directed every 24 hours. Patient should start on November 30, 2024. 30 patch 11/30/2024 Active Start: 11-30-2024 apply 1 dose transde rmal route every twenty-four hours nicotine (NICODERM) 14 mg/24 hr Indications: nicotine withdrawal symptoms , smoking cessation Apply 1 patch as directed every 24 hours. Patient should start on November 30, 2024. 30 patch 11/30/2024 Active Start: 11-30-2024 apply 1 dose transde rmal route every twenty-four hours nicotine (NICODERM) 14 mg/24 hr Indications: nicotine withdrawal symptoms , smoking cessation Apply 1 patch as directed every 24 hours. Patient should start on November 30, 2024. 30 patch 11/30/2024 Active Start: 11-30-2024 apply 1 dose transde rmal route every twenty-four hours nicotine (NICODERM) 14 mg/24 hr Indications: nicotine withdrawal symptoms , smoking cessation Apply 1 patch as directed every 24 hours. Patient should start on November 30, 2024. 30 patch 11/30/2024 Active Start: 11-30-2024 apply 1 dose transde rmal route every twenty-four hours nicotine (NICODERM) 14 mg/24 hr Indications: nicotine withdrawal symptoms , smoking cessation Apply 1 patch as directed every 24 hours. Patient should start on November 30, 2024. 30 patch 11/30/2024 Active Start: 11-30-2024 apply 1 dose transde rmal route every twenty-four hours nicotine (NICODERM) 14 mg/24 hr Indications: nicotine withdrawal symptoms , smoking cessation Apply 1 patch as directed every 24 hours. Patient should start on November 30, 2024. 30 patch 11/30/2024 Active Start: 11-30-2024 apply 1 dose transde rmal route every twenty-four hours nicotine (NICODERM) 14 mg/24 hr Indications: nicotine withdrawal symptoms , smoking cessation Apply 1 patch as directed every 24 hours. Patient should start on November 30, 2024. 30 patch 11/30/2024 Active Start: 11-30-2024 apply 1 dose transde rmal route every twenty-four hours nicotine (NICODERM) 14 mg/24 hr Indications: nicotine withdrawal symptoms , smoking cessation Apply 1 patch as directed every 24 hours. Patient should start on November 30, 2024. 30 patch 11/30/2024 Active Start: 11-30-2024 apply 1 dose transde rmal route every twenty-four hours nicotine (NICODERM) 14 mg/24 hr Indications: nicotine withdrawal symptoms , smoking cessation Apply 1 patch as directed every 24 hours. Patient should start on November 30, 2024. 30 patch 11/30/2024 Active Start: 11-30-2024 apply 1 dose transde rmal route every twenty-four hours nicotine (NICODERM) 14 mg/24 hr Indications: nicotine withdrawal symptoms , smoking cessation Apply 1 patch as directed every 24 hours. Patient should start on November 30, 2024. 30 patch 11/30/2024 Active Start: 11-30-2024 apply 1 dose transde rmal route every twenty-four hours nicotine (NICODERM) 14 mg/24 hr Indications: nicotine withdrawal symptoms , smoking cessation Apply 1 patch as directed every 24 hours. Patient should start on November 30, 2024. 30 patch 11/30/2024 Active Start: 11-30-2024 apply 1 dose transde rmal route every twenty-four hours nicotine (NICODERM) 14 mg/24 hr Indications: nicotine withdrawal symptoms , smoking cessation Apply 1 patch as directed every 24 hours. Patient should start on November 30, 2024. 30 patch 11/30/2024 Active Start: 11-30-2024 apply 1 dose transde rmal route every twenty-four hours nicotine (NICODERM) 14 mg/24 hr Indications: nicotine withdrawal symptoms , smoking cessation Apply 1 patch as directed every 24 hours. Patient should start on November 30, 2024. 30 patch 11/30/2024 Active Start: 11-30-2024 apply 1 dose transde rmal route every twenty-four hours nicotine (NICODERM) 14 mg/24 hr Indications: nicotine withdrawal symptoms , smoking cessation Apply 1 patch as directed every 24 hours. Patient should start on November 30, 2024. 30 patch 11/30/2024 Active Start: 09-30-2024 apply 1 dose transde rmal route every twenty-four hours nicotine (NICODERM) 21 mg/24 hr Apply 1 patch as directed every 24 hours. 30 patch 1 09/30/2024 Active nitrofurantoin, macrocrystals 25 mg / nitrofurantoin, monohydrate 75 mg oral capsule (3 sources) Nitrofuran Antibacterial Start: 04-16-2023 End: 04-23-2023 take 1 capsule by mouth twice daily at mealtime nitrofurantoin monohydrate and macrocrystal (MACROBID) 100 mg capsule Take 1 capsule by mouth two times a day with meals for 7 days. 14 capsule 0 04/16/2023 04/23/2023 Active Comment on above: Take 1 capsule by mo [facility] two times a day with meals for 7 days. ondansetron 4 mg disintegrating oral tablet (20 sources) Serotonin-3 Receptor Antagonist Start: 02-14-2022 ondansetron (PF) 4 mg injection (ZOFRAN) Start: 01-12-2022 End: 02-06-2024 take 1 tablet by mouth every eight hours as needed for nausea and nausea ondansetron orally disintegrating (ZOFRAN ODT) 4 mg disintegrating tablet Indications: Nausea Take 1 tablet by mouth every 8 hours as needed for nausea/vomiting. 15 tablet 2 02/06/2024 Active Start: 08-24-2021 End: 09-24-2021 take 1 tablet by mouth every eight hours as needed ondansetron orally disintegrating (ZOFRAN ODT) 4 mg disintegrating tablet Take 1 tablet by mouth every 8 hours as needed for nausea/vomiting. 30 tablet 08/24/2021 09/24/2021 Discontinued End: 07-17-2024 take 1 tablet by mouth every eight hours as needed ondansetron (ZOFRAN) 4 mg tablet Take 4 mg by mouth three times a day as needed. 07/17/2024 Discontinued Comment on above: [facility] hours as needed for nausea/vomiting. pregabalin 150 mg oral capsule (20 sources) Start: 08-31-2015 Pregabalin (Lyrica) 150 MG capsule Active 200 MG PO TWICE A DAY August 31, 2015 12:10am take 1 capsule by mouth twice da pedro Pregabalin (LYRICA) 200 mg capsule Take 200 mg by mouth twice daily. Active Comment on above: Take 200 mg by mouth twice daily. rivaroxaban 20 mg oral tablet (20 sources) Factor Xa Inhibitor Start: 07-22-2024 XARELTO 20 mg tablet Take 1 tablet by mouth once daily. Patient should start on July 22, 2024. 30 tablet 11 07/22/2024 Active Start: 08-31-2015 End: 07-17-2024 take 1 tablet by mouth once daily XARELTO 20 mg tablet Take 1 tablet by mouth once daily. 30 tablet 11 03/28/2024 07/17/2024 Discontinued Comment on above: Take 20 mg by mouth daily at bedtime. Take 1 tablet by cassy th once daily. sildenafil 20 mg oral tablet (20 sources) Phosphodiesterase 5 Inhibitor Start: 09-17-2024 sildenafil (REVATIO) 20 mg tablet Indications: Erectile dysfunction, unspecified erectile dysfunction type TAKE 1 TABLET BY MOUTH DIRECTED (may take up to 5 (FIVE) TABLETS 1 (ONE) hour prior to sexual activity) 30 tablet 5 09/17/2024 Active Start: 03-09-2022 End: 07-17-2024 sildenafil (REVATIO) 20 mg t ablet Indications: Erectile dysfunction, unspecified erectile dysfunction type TAKE 1 TABLET BY MOUTH DIRECTED (may take up to 5 (FIVE) TABLETS 1 (ONE) hour prior to sexual activity) 30 tablet 5 05/25/2023 07/17/2024 Discontinued Start: 09-26-2021 sildenafil (RE VATIO) 20 mg tablet Indications: Erectile dysfunction, unspecified erectile dysfunction type TAKE 1 TABLET BY MOUTH DIRECTED (may take up to 5 (FIVE) TABLETS 1 (ONE) hour prior to sexual activity) 30 tablet 5 09/26/2021 Active End: 09-26-2021 take 5 tablets by mouth every hour as needed sildenafil (REVATIO) 20 mg tablet Take 20 mg by mouth as needed (may take up to 5 tablets one hour prior to sexual activity). 09/26/2021 Discontinued Comment on above: Take 20 mg by mouth as needed (may take up to 5 tablets one hour prior to sexual activity). TAKE 1 TABLET BY CASSY TH DIRECTED (may take up to 5 (FIVE) TABLETS 1 (ONE) hour prior to sexual activity) sulfamethoxazole 800 mg / trimethoprim 160 mg oral tablet (20 sources) Dihydrofolate Reductase Inhibitor Antibacterial, Sulfonamide Antimicrobial Start: 11-14-19 End: 11-21-19 take 1 tablet by mouth twice daily sulfamethoxazole- trimethoprim (BACTRIM DS) 800-160 mg per tablet Indications: Urinary frequency Take 1 tablet by mouth two times a day for 7 days. 14 tablet 11/13/2024 11/20/2024 Active Start: 05-11-2024 End: 07-13-2024 take 1 tablet by mouth twice daily sulfamethoxazole-trimethoprim (BACTRIM D S) 800-160 mg per tablet Indications: Urinary tract infection without hematuria, site unspecified Take 1 tablet by mouth two times a day. 05/11/2024 07/13/2024 Discontinued (Course of therapy completed) Start: 02-04-2024 End: 02-07-2024 take 1 tablet by mouth twice daily sulfamethoxazole-trimethoprim (BACTRIM D S) 800-160 mg per tablet Indications: Cellulitis of left upper extremity , Urinary tract infection without hematuria, site unspecified Take 1 tablet by mouth two times a day for 3 days. 6 tablet 02/04/2024 02/07/2024 Active Start: 08-02-2023 End: 08-16-2023 take 1 tablet by mouth twice daily sulfamethoxazole-trimethoprim (BACTRIM D S) 800-160 mg per tablet Indications: E. coli UTI (urinary tract infection) Take 1 tablet by mouth two times a day for 7 days. 14 tablet 0 08/02/2023 08/09/2023 Active Start: 05-21-2023 End: 05-28-2023 take 1 tablet by mouth twice daily sulfamethoxazole-trimethoprim (BACTRIM D S) 800-160 mg per tablet Take 1 tablet by mouth two times a day for 7 days. 14 tablet 0 05/21/2023 05/28/2023 Active Start: 03-05-2023 End: 03-12-2023 take 1 tablet by mouth twice daily sulfamethoxazole-trimethoprim (BACTRIM D S) 800-160 mg per tablet Indications: Painful urination Take 1 tablet by mouth twice daily for 7 days. 14 tablet 0 03/05/2023 03/12/2023 Active Start: 11-15-2021 End: 11-25-2021 take 1 tablet by mouth twice daily sulfamethoxazole-trimethoprim (BACTRIM D S) 800-160 mg per tablet Take 1 tablet by mouth twice daily for 10 days. 20 tablet 0 11/15/2021 11/25/2021 Active Start: 11-14-2021 End: 01-02-2024 Sulfamethoxazole-Trimethopri m (Bactrim Ds) 800-160 mg tablet Discontinued 1 {tbl} PO Q12H November 14, 2021 12:00am January 02, 2024 8:27pm Start: 09-05-2021 End: 09-12-2021 take 1 tablet by mouth twice daily sulfamethoxazole-trimethoprim (BACTRIM D S) 800-160 mg per tablet Take 1 tablet by mouth twice daily for 7 days. 14 tablet 09/05/2021 09/12/2021 Comment on above: Take 1 tablet by cassy th twice daily for 10 days. Take 1 tablet by cassy twice daily for 7 days. Take 1 tablet by cassy two times a day for 7 days. terbinafine 250 mg oral tablet (8 sources) Allylamine Antifungal Start: take 1 tablet by mouth once daily terbinafine HCl (LAMISIL) 250 mg tablet Indications: Onychomycosis Take 1 tablet by mouth once daily. 30 tablet 2 11/14/2024 Active tiZANidine 4 mg oral tablet (20 sources) Central alpha-2 Adrenergic Agonist Start: End: take 2 tablets by mouth every six hours as needed tiZANidine (ZANAFLEX) 4 mg tablet Take 2 tablets by mouth every 6 hours as needed. 240 tablet 2 07/22/2024 10/20/2024 Active Start: 07-17-2024 End: 07-22-2024 take 1 tablet by mouth every six hours tiZANidine (ZANAFLEX) 2 mg tablet Take 3 tablets by mouth every 6 hours. 360 tablet 1 07/17/2024 07/22/2024 Discontinued Start: 02-18-2021 take 1 capsule by mo [facility] twice daily Tizanidine (Zanaflex) 2 mg Capsule Active 2 MG PO TWICE A DAY February 18, 2021 2:43pm End: 07-17-2024 take 1 tablet by mouth twice daily tiZANidine (ZANAFLEX) 2 mg tablet Take 2 mg by mouth twice daily. 07/17/2024 Discontinued Comment on above: Take 2 mg by mouth t wice daily. Completed/Discontinued Medications Medication Drug Class(es) Dates Sig (Normalized) Sig (Original) acetaminophen 500 mg oral tablet (20 sources) Start: 04-14-2023 End: 04-14-2023 acetaminophen 1,000 mg tab(s) (TYLENOL) Start: 08-23-2021 take 2 tablets by mo uth every six hours as needed acetaminophen (TYLENOL EXTRA STRENGTH) 500 mg tablet Take 2 tablets by mouth every 6 hours as needed for pain. 30 tablet 08/23/2021 Active Comment on above: Take 2 tablets by mo uth every 6 hours as needed for pain. onabotulinumtoxina 100 unt injection (12 sources) Acetylcholine Release Inhibitor Start: 08-05-2024 End: 08-05-2024 onabotulinum toxin type A 200 Units injection (BOTOX) Start: 08-05-2024 End: 08-05-2024 200 Units, INTRAMUSCULAR, ON CE (UP TO 30 DAYS AMB), 1 dose, On Sun08/05/24 at 1530, REFRIGERATE - Pharmaceutical Waste: Lab Pack - Start: 03-03-2024 End: 03-03-2024 inject 1 dose by intramuscular injection every 30 days 200 Units, INTRAMUSCULAR, ONCE (UP TO 30 DAYS AMB), 1 dose, On Sun03/03/24 at 1200, This record documents the total dose provided to patient. See progress note for specific locations and amounts administered. REFRIGERATE - Pharmaceutical Waste: Lab Pack - Start: 03-03-2024 End: 03-03-2024 onabotulinum toxin type A 20 0 Units injection (BOTOX) Start: 10-22-2023 End: 10-22-2023 onabotulinum toxin type A 20 0 Units injection (BOTOX) Start: 10-22-2023 End: 10-22-2023 onabotulinum toxin type A 20 0 Units injection (BOTOX) Start: 10-22-2023 End: 10-22-2023 onabotulinum toxin type A 10 0 Units injection (BOTOX) Start: 01-08-2023 End: 01-08-2023 onabotulinum toxin type A 20 0 Units injection (BOTOX) Start: 10-02-2022 End: 10-02-2022 onabotulinum toxin type A 20 0 Units injection (BOTOX) Start: 07-10-2022 End: 07-10-2022 onabotulinum toxin type A 10 0 Units injection (BOTOX) Start: 03-27-2022 End: 03-27-2022 onabotulinum toxin type A 10 0 Units injection (BOTOX) Start: 12-26-2021 End: 12-26-2021 onabotulinum toxin type A 10 0 Units injection (BOTOX) cabergoline 0.5 mg oral tablet (20 sources) Ergot Derivative Start: 11-14-2021 End: 07-13-2024 cabergoline (DOSTINEX) 0.5 mg tablet 11/14/2021 07/13/2024 Discontinued Start: 06-09-2021 End: 01-02-2024 take 1 tablet by mouth once Cabergoline 0.5 mg Tablet Discontinued 0.5 mg PO MOTH November 14, 2021 12:00am January 02, 2024 8:28pm Comment on above: Take 1 tablet by cassy th every Sunday and . clindamycin 300 mg oral capsule (20 sources) Lincosamide Antibacterial Start: 2021 End: 2021 take 1 capsule by mouth three times daily clindamycin (CLEOCIN) 300 mg capsule Take 1 capsule by mouth three times daily. 15 capsule 08/23/2021 01/12/2022 Discontinued Comment on above: Take 1 capsule by mo [facility] three times daily. clonazePAM 0.5 mg oral tablet (4 sources) Benzodiazepine Start: 2024 End: 2024 take 1 tablet by mouth every six hours as needed for muscle spasms clonazePAM (KLONOPIN) 0.5 mg tablet Indications: Therapeutic drug monitoring , Infected drug delivery pump, subsequent encounter , Baclofen pump failure, subsequent encounter , Chronic pain syndrome , Sepsis due to skin infection (HCC) (HCC) , Impaired instrumental activities of daily living , Gait abnormality , Foot drop, left Take 1 tablet by mouth every 6 hours as needed (muscle spasms) for up to 30 days. 30 tablet 07/22/2024 07/24/2024 Discontinued (Changing Therapy/Dosage Form) diclofenac sodium 50 mg / miSOPROStol 0.2 mg delayed release oral tablet (20 sources) Nonsteroidal Anti-inflammatory Drug, Prostaglandin E1 Analog End: 2024 take 1 tablet by mouth once diclofenac-miSOPROStol (ARTHROTEC) 50-200 mg-mcg per tablet Take 50 mg by mouth. 07/17/2024 Discontinued doxycycline hyclate 100 mg oral tablet (15 sources) Tetracycline-class Drug Start: 2023 End: 2024 take 1 tablet by mouth twice daily doxycycline (VIBRA-TABS) 100 mg tablet Take 1 tablet by mouth two times a day. 28 tablet 1 06/16/2024 07/17/2024 Discontinued fluticasone propionate 0.05 mg/actuat metered dose nasal spray (20 sources) Corticosteroid Start: 2023 End: 2024 take 2 spray(s) by mouth twice daily fluticasone (FLONASE) 50 mcg/actuation nasal spray Use 2 Sprays in each nostril two times a day. Rinse mouth after use. 16 mL 2 02/04/2024 09/30/2024 Discontinued 1 ml ketorolac tromethamine 30 mg/ml injection (1 source) Nonsteroidal Anti-inflammatory Drug, Cyclooxygenase Inhibitor Start: 2021 End: 2021 keTORolac 15 mg injection (TORADOL) lubiprostone 0.024 mg oral capsule (17 sources) Chloride Channel Activator Start: 2023 End: 2023 take 1 capsule by mouth twice daily at mealtime lubiprostone (AMITIZA) 24 mcg capsule Take 1 capsule by mouth two times a day with meals. 60 capsule 2 09/19/2023 03/28/2024 Discontinued Comment on above: Take [address] [facility] two times a day with meals. methylnaltrexone bromide 150 mg oral tablet (2 sources) Opioid Antagonist End: 2023 take 1 tablet by mouth once daily methylnaltrexone (RELISTOR) 150 mg tab as directed Orally Once a day 03/28/2024 Discontinued 5 ml midazolam 1 mg/ml injection (20 sources) Benzodiazepine Start: 2021 End: 2024 midazolam (PF) 2 mg injection (VERSED) oxytocin osorio 50 unit (CPD) (20 sources) Start: 2023 End: 2024 oxytocin osorio 50 unit (CPD) Take 1 Osorio by mouth as directed. Dissolve 1 to 3 osorio (250IU) under the tongue 30-60 minutes prior to sexual activity 30 Osorio 5 11/23/2023 07/17/2024 Discontinued Start: 11-23-2023 oxytocin troch e 50 unit (CPD) Take 1 Osorio by mouth as directed. Dissolve 1 to 3 osorio (250IU) under the tongue 30-60 minutes prior to sexual activity 30 Osorio 5 11/23/2023 Active predniSONE 20 mg oral tablet (14 sources) Start: 11-14-2021 take 60 mg by mouth once daily Prednisone Active 60 MG PO DAILY November 14, 2021 1:07am Start: 11-14-2021 End: 12-23-2021 take 3 tablets by mouth once daily predniSONE (DELTASONE) 20 mg tablet Take 60 mg by mouth once daily. 0 11/14/2021 12/23/2021 Discontinued Start: 09-24-2021 End: 10-03-2021 predniSONE (DELTASONE) 10 mg tablet Take 4 tabs daily for 3 days, then 2 tabs daily for 3 days, then 1 tab daily for 3 days with food. 21 tablet 0 09/24/2021 10/03/2021 Active Comment on above: Take 4 tabs daily fo r 3 days, then 2 tabs daily for 3 days, then 1 tab daily for 3 days with food. Take 60 mg by mouth once daily. 20 ml ropivacaine hydrochloride 5 mg/ml injection (9 sources) Amide Local Anesthetic Start: 04-14-2024 End: 04-14-2024 ROPivacaine (PF) 5 mg/mL (0.5 %) 1 mL injection (NAROPIN) Start: 04-14-2024 End: 04-14-2024 1 mL, Injection - FOR ORTHO USE ONLY, ONCE, 1 dose, Starting on Sun04/14/24 at 1137, Until Sun04/14/24 at 1137 Start: 12-11-2022 End: 12-11-2022 ROPivacaine (PF) 5 mg/mL (0. 5 %) 3 mL injection (NAROPIN) Start: 03-27-2022 End: 03-27-2022 ropivacaine (PF) 5 mg/mL (0. 5 %) 1 mL injection (NAROPIN) Start: 09-19-2021 End: 09-19-2021 ropivacaine (PF) 5 mg/mL (0. 5 %) 1 mL injection (NAROPIN) tadalafil 5 mg oral tablet (20 sources) Phosphodiesterase 5 Inhibitor Start: 03-24-2021 End: 07-17-2024 Tadalafil (CIALIS) 5 mg tablet Take 1 pill daily 90 tablet 5 05/25/2023 07/17/2024 Discontinued Comment on above: Take 1 pill daily 1 ml triamcinolone acetonide 40 mg/ml injection (9 sources) Corticosteroid Start: 04-14-2024 End: 04-14-2024 40 mg, Injection - FOR ORTHO USE ONLY, ONCE, 1 dose, Starting on Sun04/14/24 at 1137, Until Sun04/14/24 at 1137 Start: 04-14-2024 End: 04-14-2024 triamcinolone acetonide 40 m g injection (KeNALog 40) Start: 12-11-2022 End: 12-11-2022 triamcinolone acetonide 40 m g injection (KeNALog 40) Start: 03-27-2022 End: 03-27-2022 triamcinolone acetonide 40 m g injection (KeNALog 40) Start: 09-19-2021 End: 09-19-2021 triamcinolone acetonide 40 m g injection (KENALOG 40) Problems Active Problems Problem Classification Problem Date Documented Da te Episodic/Chronic Abdominal pain (1 source) Unspecified abdominal pain; Translations: [Flank pain] Onset: Episodic Adjustment disorders (1 source) Adjustment disorder with mixed anxiety and depressed mood; Translations: [Adjustment disorder with mixed anxiety and depressed mood] 10-17-2024 Chronic Anxiety disorders (1 source) Acute post-trauma stress state; Translations: [Post-traumatic stress disorder, acute] 02-05-2024 Chronic Asthma (20 sources) Asthma; Translations: [Unspecified asthma, uncomplicated] Onset: 2 08-05-2021 Chronic Coagulation and hemorrhagic disorders (20 sources) Heterozygous Factor V Leiden mutation; Translations: [Activated protein C resistance] Onset: 4 10-14-2016 Chronic Disorders of lipid metabolism (2 sources) Mixed hyperlipidemia; Translations: [Mixed hyperlipidemia] Onset: 4 01-09-2024 Chronic Fever of unknown origin (5 sources) Fever; Translations: [Fever, unspecified] Onset: 5 04-14-2023 Episodic Genitourinary symptoms and ill-defined conditions (7 sources) Increased frequency of urination; Translations: [Frequency of micturition] Onset: 5 Episodic Inflammation; infection of eye (except that caused by tuberculosis or sexually transmitteddisease) (1 source) Hordeolum externum of upper eyelid of left eye; Translations: [Hordeolum externum left upper eyelid] 05-21-2023 Episodic Inflammatory conditions of male genital organs (2 sources) Epididymitis; Translations: [Epididymitis] Episodic Malaise and fatigue (14 sources) Asthenia; Translations: [Weakness] Episodic Miscellaneous mental health disorders (4 sources) 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; 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] Onset: 5 05-25-2023 Chronic Nausea and vomiting (4 sources) Nausea; Translations: [Nausea] Episodic Nutritional deficiencies (3 sources) Vitamin D deficiency; Translations: [Vitamin D deficiency, unspecified] Onset: 5 01-09-2024 Chronic Open wounds of extremities (4 sources) Open wound of thigh with complication; Translations: [Unspecified open wound, left thigh, initial encounter] 01-12-2016 Episodic Comment on above: S71.102Aopen surgica l wound posteromedial aspect left proximal thigh Open wounds of extremities (1 source) Injury of lower extremity; Translations: [Unspecified open wound, right lower leg, subsequent encounter] Episodic Other aftercare (1 source) Post-discharge follow-up; Translations: [Encounter for follow-up examination after completed treatment for conditions other than malignant neoplasm] Episodic Other aftercare (1 source) senior living current use of non-steroidal anti-inflammatory drug; Translations: [Encounter for therapeutic drug level monitoring] 03-28-2024 Episodic Other aftercare (1 source) Encounter for therapeutic drug level monitoring; Translations: [Encounter for monitoring chronic NSAID therapy] Onset: 5 Episodic Other aftercare (1 source) 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) use of non-steroidal anti-inflammatories (NSAID); Translations: [Encounter for monitoring chronic NSAID therapy] Onset: 5 Episodic Other connective tissue disease (6 sources) Lateral epicondylitis of left humerus; Translations: [Lateral epicondylitis, left elbow] Episodic Other connective tissue disease (1 source) Swelling of lower limb; Translations: [Other specified soft tissue disorders] Episodic Other connective tissue disease (11 sources) Spasm; Translations: [Other muscle spasm] Episodic Other connective tissue disease (11 sources) Muscle spasticity present; Translations: [Other muscle spasm] 01-11-2023 Episodic Other connective tissue disease (1 source) Bilateral bursitis of shoulders; Translations: [Bursitis of right shoulder] 04-14-2024 Episodic Other connective tissue disease (20 sources) Impingement syndrome of right shoulder region; Translations: [Impingement syndrome of right shoulder] Onset: 5 09-16-2024 Episodic Other connective tissue disease (20 sources) Impingement syndrome of left shoulder region; Translations: [Impingement syndrome of left shoulder] Onset: 5 09-16-2024 Episodic Other connective tissue disease (2 sources) Impingement syndrome of right shoulder; Translations: [Impingement syndrome of right shoulder] Onset: 5 Episodic Other connective tissue disease (2 sources) Impingement syndrome of left shoulder; Translations: [Impingement syndrome of left shoulder] Onset: 5 Episodic Other connective tissue disease (2 sources) Other muscle spasm; Translations: [Muscle spasticity] Onset: 4 Episodic Other diseases of bladder and urethra (20 sources) Neurogenic bladder; Translations: [Neuromuscular dysfunction of bladder, unspecified] Onset: 4 06-13-2021 Chronic Other diseases of bladder and urethra (2 sources) Neuromuscular dysfunction of bladder, unspecified; Translations: [Neurogenic bladder] Onset: 2 Chronic Other diseases of veins and lymphatics (1 source) Lymphedema; Translations: [Lymphedema, not elsewhere classified] Chronic Other diseases of veins and lymphatics (1 source) Lymphedema, not elsewhere classified; Translations: [Lymphedema] Onset: 2 Chronic Other endocrine disorders (10 sources) Hypogonadotropic hypogonadism; Translations: [Testicular hypofunction] Onset: 2 Chronic Other endocrine disorders (20 sources) Male hypogonadism; Translations: [Testicular hypofunction] Onset: 2 01-25-2022 Chronic Other endocrine disorders (1 source) Testicular hypofunction; Translations: [Hypogonadism in male] Onset: 5 Chronic Other gastrointestinal disorders (1 source) Drug-induced constipation; Translations: [Drug induced constipation] 09-19-2023 Episodic Other inflammatory condition of skin (1 source) Itching of skin; Translations: [Pruritus, unspecified] Episodic Other inflammatory condition of skin (1 source) Itching ; Translations: [Pruritus, unspecified] Episodic Other inflammatory condition of skin (1 source) Pruritus, unspecified; Translations: [Pruritus] 11-22-2021 Episodic Other lower respiratory disease (2 sources) Cough; Translations: [Cough] Episodic Other male genital disorders (20 sources) Male erectile dysfunction, unspecified; Translations: [Impotence of organic origin] Onset: 4 09-25-2014 Chronic Other male genital disorders (3 sources) Secondary erectile dysfunction; Translations: [Male erectile dysfunction, unspecified] 09-19-2024 Chronic Other male genital disorders (1 source) Swelling of testicle; Translations: [Other specified disorders of the male genital organs] Episodic Other nervous system disorders (20 sources) Chronic pain syndrome; Translations: [Chronic pain syndrome] Onset: 2 Chronic Other nervous system disorders (2 sources) Chronic pain syndrome; Translations: [Chronic pain syndrome] Onset: 2 Chronic Other nervous system disorders (20 sources) Abnormal gait; Translations: [Unspecified abnormalities of gait and mobility] Onset: 5 Episodic Other non-traumatic joint disorders (3 sources) Pain in left shoulder; Translations: [Pain in left shoulder] Onset: 9 Episodic Other non-traumatic joint disorders (1 source) Shoulder pain; Translations: [Pain in right shoulder] Episodic Other non-traumatic joint disorders (1 source) Bilateral chronic pain of upper limbs; Translations: [Pain in right shoulder] Episodic Other non-traumatic joint disorders (7 sources) Bilateral shoulder joint pain; Translations: [Pain in right shoulder] 08-25-2024 Episodic Other non-traumatic joint disorders (1 source) Pain in right shoulder; Translations: [Pain of both shoulder joints] Onset: 5 Episodic Other nutritional; endocrine; and metabolic disorders (2 sources) 5,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; Translations: [Methylenetetrahydrofo late reductase deficiency] 01-02-2024 Chronic Other nutritional; endocrine; and metabolic disorders (20 sources) Obesity; Translations: [Other obesity due to excess calories] Onset: 0 01-10-2022 Chronic Other nutritional; endocrine; and metabolic disorders (20 sources) Obesity caused by energy imbalance; Translations: [Other obesity due to excess calories] Onset: 0 01-10-2022 Chronic Other nutritional; endocrine; and metabolic disorders (1 source) Morbid (severe) obesity due to excess calories; Translations: [Morbid obesity (HCC)] Onset: 4 Chronic Other skin disorders (3 sources) Ingrowing toenail; Translations: [Ingrowing nail] 09-30-2024 Episodic Other skin disorders (1 source) Ingrowing nail; Translations: [Ingrown toenail] Onset: 5 Episodic Paralysis (20 sources) Paraplegia; Translations: [Paraplegia, unspecified] Onset: 2 Chronic Comment on above: G82.20 Residual codes; unclassified (20 sources) Obstructive sleep apnea syndrome; Translations: [Obstructive sleep apnea (adult) (pediatric)] Onset: 2 08-05-2021 Chronic Residual codes; unclassified (1 source) Obstructive sleep apnea (adult) (pediatric); Translations: [KARAN (obstructive sleep apnea)] Onset: 2 Chronic Residual codes; unclassified (20 sources) Impairment; Translations: [Other specified health status] Onset: 9 Episodic Residual codes; unclassified (1 source) Procedure not indicated; Translations: [Procedure and treatment not carried out for other reasons] Episodic Residual codes; unclassified (1 source) Finding related to ability to manage personal health care; Translations: [Other specified health status] 03-28-2024 Episodic Residual codes; unclassified (1 source) Other specified health status; Translations: [Impaired motor control] Onset: 5 Episodic Spinal cord injury (20 sources) Traumatic injury of spinal cord at T7-T12 level; Translations: [Unspecified injury at T7-T10 level of thoracic spinal cord, initial encounter] Onset: 4 Chronic Spinal cord injury (10 sources) Injury of thoracic spinal cord; Translations: [Late effect of spinal cord injury] Onset: 5 07-24-2024 Episodic Substance-related disorders (20 sources) Nicotine dependence; Translations: [Nicotine dependence, unspecified, uncomplicated] Onset: 1 02-20-2021 Chronic Comment on above: F17.200 Unclassified (1 source) Unknown / UNK(Unknown) Onset: 8 Viral infection (1 source) Viral disease; Translations: [Viral infection, unspecified] 10-09-2024 Episodic Past or Other Problems Problem Classification Problem Date Documented Da te Episodic/Chronic Acquired foot deformities (20 sources) Left foot drop; Translations: [Foot drop, left foot] Onset: 07-24-2014 03-03-2015 Episodic Administrative/social admission (20 sources) Other reduced mobility; Translations: [Other specified conditions influencing health status] Onset: 01-28-2020 Episodic Complication of device; implant or graft (20 sources) Urinary tract infectious disease; Translations: [Infection and inflammatory reaction due to indwelling urethral catheter, initial encounter] Onset: 01-07-2022 01-10-2022 Episodic Diabetes mellitus without complication (3 sources) Hyperglycemia; Translations: [Hyperglycemia, unspecified] Onset: 01-09-2024 Episodic Immunizations and screening for infectious disease (1 source) Encounter for immunization; Translations: [Encounter for immunization] Onset: 01-09-2024 Episodic Mycoses (20 sources) Tinea pedis; Translations: [Tinea pedis] Onset: 01-07-2022 01-10-2022 Episodic Nutritional deficiencies (4 sources) Cobalamin deficiency; Translations: [Deficiency of other specified B group vitamins] Onset: 01-09-2024 01-09-2024 Episodic Other connective tissue disease (20 sources) Spasticity; Translations: [Cramp and spasm] Onset: 02-17-2015 Episodic Other connective tissue disease (1 source) Other specified soft tissue disorders; Translations: [Swelling of lower extremity] Onset: 02-10-2022 Episodic Other connective tissue disease (20 sources) Tendinitis; Translations: [Enthesopathy, unspecified] Onset: 07-31-2013 Resolved: 06-25-2019 06-25-2019 Episodic Other connective tissue disease (20 sources) Pain of bilateral hands; Translations: [Pain in right hand] Onset: 07-20-2020 Resolved: 03-30-2021 03-30-2021 Episodic Other connective tissue disease (20 sources) Bilateral hand weakness; Translations: [Other symptoms and signs involving the musculoskeletal system] Onset: 07-20-2020 Resolved: 03-30-2021 03-30-2021 Episodic Other connective tissue disease (1 source) Cramp and spasm; Translations: [Spasticity] Onset: 03-03-2015 Episodic Other gastrointestinal disorders (20 sources) Constipation; Translations: [Constipation, unspecified] Onset: 06-23-2014 10-14-2016 Episodic Other nervous system disorders (1 source) Unspecified abnormalities of gait and mobility; Translations: [Gait abnormality] Onset: 07-13-2024 Episodic Other nutritional; endocrine; and metabolic disorders (20 sources) Morbid obesity; Translations: [Morbid (severe) obesity due to excess calories] Onset: 06-25-2019 Resolved: 03-28-2024 02-19-2021 Chronic Other nutritional; endocrine; and metabolic disorders (20 sources) Obese class II; Translations: [Obesity, unspecified] Onset: 02-25-2021 Resolved: 01-07-2022 02-25-2021 Chronic Other nutritional; endocrine; and metabolic disorders (20 sources) Weight gain; Translations: [Abnormal weight gain] Onset: 06-01-2014 09-25-2014 Episodic Other nutritional; endocrine; and metabolic disorders (20 sources) Weight increased; Translations: [Abnormal weight gain] Onset: 06-01-2014 09-25-2014 Episodic Other screening for suspected conditions (not mental disorders or infectious disease) (20 sources) Patient encounter status; Translations: [Encounter for screening for lipoid disorders] Onset: 07-16-2024 Episodic Other skin disorders (2 sources) Localized swelling, mass and lump, trunk; Translations: [Localized swelling, mass and lump, trunk] Onset: 10-01-2017 Episodic Other upper respiratory infections (20 sources) Acute maxillary sinusitis; Translations: [Acute maxillary sinusitis, unspecified] Onset: 01-07-2022 01-10-2022 Episodic Pleurisy; pneumothorax; pulmonary collapse (20 sources) Atelectasis; Translations: [Atelectasis] Onset: 01-07-2022 01-10-2022 Episodic Pneumonia (except that caused by tuberculosis or sexually transmitted disease) (2 sources) Pneumonia; Translations: [Pneumonia, unspecified organism] Onset: 01-07-2024 01-02-2024 Episodic Pulmonary heart disease (20 sources) H/O: pulmonary embolus; Translations: [Personal history of pulmonary embolism] Onset: 11-30-2014 02-19-2021 Episodic Residual codes; unclassified (20 sources) Device in situ; Translations: [Presence of other specified devices] Onset: 12-07-2016 12-07-2016 Episodic Residual codes; unclassified (20 sources) Tobacco user; Translations: [Tobacco use] Onset: 03-09-2020 03-09-2020 Episodic Residual codes; unclassified (1 source) Tobacco use; Translations: [Tobacco abuse disorder] Onset: 03-09-2020 Episodic Septicemia (except in labor) (20 sources) Sepsis; Translations: [Sepsis, unspecified organism] Onset: 01-07-2022 01-10-2022 Episodic Shock (1 source) Severe sepsis with septic shock; Translations: [Septic shock (HCC)] Onset: 02-04-2024 Episodic Skin and subcutaneous tissue infections (20 sources) Cellulitis of left lower limb; Translations: [Cellulitis of left lower limb] Onset: 02-20-2021 02-20-2021 Episodic Comment on above: L02.416abscess poste romedial aspect left proximal thigh Spondylosis; intervertebral disc disorders; other back problems (8 sources) Spinal stenosis, cervical region; Translations: [Radiculopathy, cervical region] Onset: 07-19-2018 08-01-2023 Episodic Unclassified (1 source) Injury of thoracic spinal cord 08-25-2024 Unclassified (1 source) Erectile dysfunction, unspecified erectile dysfunction type 09-17-2024 Urinary tract infections (20 sources) Lower urinary tract infectious disease; Translations: [Urinary tract infection, site not specified] Onset: 11-27-2014 02-21-2017 Episodic Results Test Name Value Interpretation Reference Range Facility CNTHERAPY 12-01-2024 CNTHERAPY OT/PT/Speech Visit ( [facility]) MATEUS MANZANO ([id number]) 1985 M Date Time Provider Department 12/01/24 7:45 AM CUONG MONROYPT[facility] Date Time Provider Department [place] 12/01/2024 7:45 AM [id number] MONROYPTWP Fabby Marquez Reason for Visit: Physical Therapy [503] Primary Visit Diagnosis:Paraplegia ([facility]) [G82.20] Other Visit Diagnoses:Impaired motor control [Z78.9] Gait abnormality [R26.9] T4 spinal cord injury, sequela ([facility]) [S24.102S] Allergies As of Date: 12/01/2024 Noted Allergy Reaction [id number] TRS 08/20/2019 4 - Hives Comments: Patient states he can tolerate penicillin and amoxicillin and has tolerated since the Zosyn reaction. There are no [facility] administrations of penicillins. Patient states he has tolerated oral cephalosporins in the past. There are outpatient prescription records for cephalexin listed in [facility]. ZOSYN (PIPERACILLIN-TAZOBACTAM) 07/31/2013 4 - Hives HYDROCODONE-ACETAMINOPHEN 07/31/2013 14 - Other: See Comments Comments: headaches PIPERACILLIN 01/14/2020 4 - Hives TAZOBACTAM 01/14/2020 4 - Hives CODEINE 05/11/2017 5 - Intolerance 14 - Other: See Comments Comments: nightmares Date Reviewed: 11/14/2024 Reviewed by: Cady Yousif MA - Fully Assessed Prescriptions as of 12/01/2024 - terbinafine HCl (LAMISIL) 250 mg tablet Take 1 tablet by mouth once daily. - baclofen 20 mg tablet Take 2 tablets by mouth two times a day. - ergocalciferol 50,000 unit capsule (VITAMIN D2, DRISDOL) Take 1 capsule by mouth two times a week. TO BE TAKEN ORALLY DIRECTED. Take 1 tablet by mouth twice weekly [id number], then decrease to 1 tablet weekly. - nicotine (NICODERM) 21 mg/24 hr Apply 1 patch as directed every 24 hours. - nicotine (NICODERM) 14 mg/24 hr Apply 1 patch as directed every 24 hours. Patient should start on November 30, 2024. - nicotine (NICODERM) 7 mg/24 hr Apply 1 patch as directed every 24 hours. Patient should start on December 30, 2024. - clomiPHENe (CLOMID) 50 mg tablet Take 1 tablet by mouth every other day. - sildenafil (REVATIO) 20 mg tablet TAKE 1 TABLET BY MOUTH DIRECTED (may take up to 5 (FIVE) TABLETS 1 (ONE) hour prior to sexual activity) - diazePAM (VALIUM) 2 mg tablet Take 1 tablet twice daily and 2 tablets at bedtime - XARELTO 20 mg tablet Take 1 tablet by mouth once daily. Patient should start on July 22, 2024. - hydrOXYzine pamoate (VISTARIL) 25 mg capsule Take 1 capsule by mouth three times a day as needed for itching/rash or anxiety. - albuterol (PROVENTIL) 2.5 mg /3 mL (0.083 %) nebulizer solution Use 3 mL via nebulizer every 6 hours as needed for wheezing/shortness of breath. - ondansetron orally disintegrating (ZOFRAN ODT) 4 mg disintegrating tablet Take 1 tablet by mouth every 8 hours as needed for nausea/vomiting. - montelukast (SINGULAIR) 10 mg tablet Take 1 tablet by mouth daily at bedtime. - morphine SR (MS CONTIN, ORAMORPH SR) 15 mg 12 hr tablet Take 1 tablet by mouth every 12 hours for 5 days. - acetaminophen (TYLENOL EXTRA STRENGTH) 500 mg tablet Take 2 tablets by mouth every 6 hours as needed for pain. - Pregabalin (LYRICA) 200 mg capsule Take 200 mg by mouth twice daily. - lidocaine (XYLOCAINE) 5 % ointment Apply to affected area as needed. Facility-Administered Medications as of 12/01/2024 - ondansetron (PF) 4 mg injection (ZOFRAN) Normal [facility] CNTHERAPYon 11-26-2024 CNTHERAPY Normal [facility] THERAPY NTon 11-26-2024 THERAPY NT Normal [facility] CNTHERAPYon 11-24-2024 CNTHERAPY OT/PT/Speech Visit ( [facility]) MATEUS MANZANO ([id number]) 1985 M Date Time Provider Department 11/24/24 7:45 AM CUONG MONROY Date Time Provider Department [place] 11/24/2024 7:45 AM [id number] MONROY Reason for Visit: Physical Therapy [503] Primary Visit Diagnosis:Paraplegia (HCC) [G82.20] Other Visit Diagnoses:Gait abnormality [R26.9] Muscle spasticity [M62.838] Allergies As of Date: 11/24/2024 Noted Allergy Reaction [id number] TRS 08/20/2019 4 - Hives Comments: Patient states he can tolerate penicillin and amoxicillin and has tolerated since the Zosyn reaction. There are no [facility] administrations of penicillins. Patient states he has tolerated oral cephalosporins in the past. There are outpatient prescription records for cephalexin listed in [facility]. ZOSYN (PIPERACILLIN-TAZOBACTAM) 07/31/2013 4 - Hives HYDROCODONE-ACETAMINOPHEN 07/31/2013 14 - Other: See Comments Comments: headaches PIPERACILLIN 01/14/2020 4 - Hives TAZOBACTAM 01/14/2020 4 - Hives CODEINE 05/11/2017 5 - Intolerance 14 - Other: See Comments Comments: nightmares Date Reviewed: 11/14/2024 Reviewed by: Cady Yousif MA - Fully Assessed Prescriptions as of 11/24/2024 - terbinafine HCl (LAMISIL) 250 mg tablet Take 1 tablet by mouth once daily. - baclofen 20 mg tablet Take 2 tablets by mouth two times a day. - ergocalciferol 50,000 unit capsule (VITAMIN D2, DRISDOL) Take 1 capsule by mouth two times a week. TO BE TAKEN ORALLY DIRECTED. Take 1 tablet by mouth twice weekly [id number], then decrease to 1 tablet weekly. - nicotine (NICODERM) 21 mg/24 hr Apply 1 patch as directed every 24 hours. - nicotine (NICODERM) 14 mg/24 hr Apply 1 patch as directed every 24 hours. Patient should start on November 30, 2024. - nicotine (NICODERM) 7 mg/24 hr Apply 1 patch as directed every 24 hours. Patient should start on December 30, 2024. - clomiPHENe (CLOMID) 50 mg tablet Take 1 tablet by mouth every other day. - sildenafil (REVATIO) 20 mg tablet TAKE 1 TABLET BY MOUTH DIRECTED (may take up to 5 (FIVE) TABLETS 1 (ONE) hour prior to sexual activity) - diazePAM (VALIUM) 2 mg tablet Take 1 tablet twice daily and 2 tablets at bedtime - XARELTO 20 mg tablet Take 1 tablet by mouth once daily. Patient should start on July 22, 2024. - hydrOXYzine pamoate (VISTARIL) 25 mg capsule Take 1 capsule by mouth three times a day as needed for itching/rash or anxiety. - albuterol (PROVENTIL) 2.5 mg /3 mL (0.083 %) nebulizer solution Use 3 mL via nebulizer every 6 hours as needed for wheezing/shortness of breath. - ondansetron orally disintegrating (ZOFRAN ODT) 4 mg disintegrating tablet Take 1 tablet by mouth every 8 hours as needed for nausea/vomiting. - montelukast (SINGULAIR) 10 mg tablet Take 1 tablet by mouth daily at bedtime. - morphine SR (MS CONTIN, ORAMORPH SR) 15 mg 12 hr tablet Take 1 tablet by mouth every 12 hours for 5 days. - acetaminophen (TYLENOL EXTRA STRENGTH) 500 mg tablet Take 2 tablets by mouth every 6 hours as needed for pain. - Pregabalin (LYRICA) 200 mg capsule Take 200 mg by mouth twice daily. - lidocaine (XYLOCAINE) 5 % ointment Apply to affected area as needed. Facility-Administered Medications as of 11/24/2024 - ondansetron (PF) 4 mg injection (ZOFRAN) [facility] CNTHERAPYon 11-20-2024 CNTHERAPY OT/PT/Speech Visit ( [facility]) MATEUS MANZANO ([id number]) 1985 M Date Time Provider Department 11/20/24 7:45 AM CUONG MONROY [facility] Date Time Provider Department Center 11/20/2024 7:45 AM [id number] MONROY Reason for Visit: Physical Therapy [503] Primary Visit Diagnosis:Paraplegia (HCC) [G82.20] Other Visit Diagnoses:Gait abnormality [R26.9] Muscle spasticity [M62.838] Impaired functional mobility, balance, gait, and endurance [Z74.09] Allergies As of Date: 11/20/2024 Noted Allergy Reaction [id number] TRS 08/20/2019 4 - Hives Comments: Patient states he can tolerate penicillin and amoxicillin and has tolerated since the Zosyn reaction. There are no [facility] administrations of penicillins. Patient states he has tolerated oral cephalosporins in the past. There are outpatient prescription records for cephalexin listed in [facility]. ZOSYN (PIPERACILLIN-TAZOBACTAM) 07/31/2013 4 - Hives HYDROCODONE-ACETAMINOPHEN 07/31/2013 14 - Other: See Comments Comments: headaches PIPERACILLIN 01/14/2020 4 - Hives TAZOBACTAM 01/14/2020 4 - Hives CODEINE 05/11/2017 5 - Intolerance 14 - Other: See Comments Comments: nightmares Date Reviewed: 11/14/2024 Reviewed by: Cady Yousif MA - Fully Assessed Prescriptions as of 11/20/2024 - terbinafine HCl (LAMISIL) 250 mg tablet Take 1 tablet by mouth once daily. - sulfamethoxazole-trimethopr im (BACTRIM DS) 800-160 mg per tablet Take 1 tablet by mouth two times a day for 7 days. - baclofen 20 mg tablet Take 2 tablets by mouth two times a day. - ergocalciferol 50,000 unit capsule (VITAMIN D2, DRISDOL) Take 1 capsule by mouth two times a week. TO BE TAKEN ORALLY DIRECTED. Take 1 tablet by mouth twice weekly [id number], then decrease to 1 tablet weekly. - nicotine (NICODERM) 21 mg/24 hr Apply 1 patch as directed every 24 hours. - nicotine (NICODERM) 14 mg/24 hr Apply 1 patch as directed every 24 hours. Patient should start on November 30, 2024. - nicotine (NICODERM) 7 mg/24 hr Apply 1 patch as directed every 24 hours. Patient should start on December 30, 2024. - clomiPHENe (CLOMID) 50 mg tablet Take 1 tablet by mouth every other day. - sildenafil (REVATIO) 20 mg tablet TAKE 1 TABLET BY MOUTH DIRECTED (may take up to 5 (FIVE) TABLETS 1 (ONE) hour prior to sexual activity) - diazePAM (VALIUM) 2 mg tablet Take 1 tablet twice daily and 2 tablets at bedtime - XARELTO 20 mg tablet Take 1 tablet by mouth once daily. Patient should start on July 22, 2024. - hydrOXYzine pamoate (VISTARIL) 25 mg capsule Take 1 capsule by mouth three times a day as needed for itching/rash or anxiety. - albuterol (PROVENTIL) 2.5 mg /3 mL (0.083 %) nebulizer solution Use 3 mL via nebulizer every 6 hours as needed for wheezing/shortness of breath. - ondansetron orally disintegrating (ZOFRAN ODT) 4 mg disintegrating tablet Take 1 tablet by mouth every 8 hours as needed for nausea/vomiting. - montelukast (SINGULAIR) 10 mg tablet Take 1 tablet by mouth daily at bedtime. - morphine SR (MS CONTIN, ORAMORPH SR) 15 mg 12 hr tablet Take 1 tablet by mouth every 12 hours for 5 days. - acetaminophen (TYLENOL EXTRA STRENGTH) 500 mg tablet Take 2 tablets by mouth every 6 hours as needed for pain. - Pregabalin (LYRICA) 200 mg capsule Take 200 mg by mouth twice daily. - lidocaine (XYLOCAINE) 5 % ointment Apply to affected area as needed. Facility-Administered Medications as of 11/20/2024 - ondansetron (PF) 4 mg injection (ZOFRAN) Normal [facility] CNTHERAPYon 11-19-2024 CNTHERAPY Normal [facility] CNOVon 11-14-2024 CNOV Normal [facility] Bacteria Ur Culton Bacteria identified Cx Nom (U) Abnormal [facility] Comment on above: Performed By: #### 6 30-4 ####[facility] LABCLIA [id number] [address] [place] CNOVon 11-13-2024 CNOV Normal [facility] UA DIP, URINE (POC)on 2024 BILIRUBIN UA (POCT) Negative Negative [facility] CLARITY UA (POCT) Turbid [facility] COLOR UA (POCT) Christin [facility] GLUCOSE UA (POCT) Negative Negative mg/dL [facility] Hemoglobin Ql (U) Negative Negative [facility] KETONE UA (POCT) Negative Negative mg/dL [facility] LEUKOCYTES UA (POCT) Negative Negative [facility] NITRITE UA (POCT) Negative Negative [facility] PH UA (POCT) 7 4.5 - 8.0 [facility] Protein Ql (U) Negative Negative mg/dL [facility] SPECIFIC GRAVITY UA (POCT) 1.015 1.005 - 1.030 [facility] UROBILINOGEN UA (POCT) 1 Lisa l E.U./dL [facility] Location: [place], [address] [place] [address], [place], [place], [id number] [place] [address] POINT OF CARE [facility] CNTHERAPYon 11-12-2024 CNTHERAPY Normal [facility] CNTHERAPYon 11-07-2024 CNTHERAPY Normal [facility] THERAPY NTon 11-07-2024 THERAPY NT Normal [facility] CNTHERAPYon 11-03-2024 CNTHERAPY OT/PT/Speech Visit ( AKPTWP) NATACHAMATEUS HARRY ([id number]) 1985 M Date Time Provider Department 11/03/24 9:15 AM CUONG MONROYPTWP Date Time Provider Department Center 11/03/2024 9:15 AM [id number], TRACEY ZAHRAPTWP Fabby Marquez Reason for Visit: Physical Therapy [503] Primary Visit Diagnosis:Paraplegia (HCC) [G82.20] Other Visit Diagnoses:Impaired motor control [Z78.9] Gait abnormality [R26.9] Muscle spasticity [M62.838] Impaired functional mobility, balance, gait, and endurance [Z74.09] Allergies As of Date: 11/03/2024 Noted Allergy Reaction [id number] TRS 08/20/2019 4 - Hives Comments: Patient states he can tolerate penicillin and amoxicillin and has tolerated since the Zosyn reaction. There are no Epic administrations of penicillins. Patient states he has tolerated oral cephalosporins in the past. There are outpatient prescription records for cephalexin listed in [facility]. ZOSYN (PIPERACILLIN-TAZOBACTAM) 07/31/2013 4 - Hives HYDROCODONE-ACETAMINOPHEN 07/31/2013 14 - Other: See Comments Comments: headaches PIPERACILLIN 01/14/2020 4 - Hives TAZOBACTAM 01/14/2020 4 - Hives CODEINE 05/11/2017 5 - Intolerance 14 - Other: See Comments Comments: nightmares Date Reviewed: 10/09/2024 Reviewed by: Dariana Concepcion LPN - Fully Assessed Prescriptions as of 11/03/2024 - baclofen 20 mg tablet Take 2 tablets by mouth two times a day. - ergocalciferol 50,000 unit capsule (VITAMIN D2, DRISDOL) Take 1 capsule by mouth two times a week. TO BE TAKEN ORALLY DIRECTED. Take 1 tablet by mouth twice weekly [id number], then decrease to 1 tablet weekly. - nicotine (NICODERM) 21 mg/24 hr Apply 1 patch as directed every 24 hours. - nicotine (NICODERM) 14 mg/24 hr Apply 1 patch as directed every 24 hours. Patient should start on November 30, 2024. - nicotine (NICODERM) 7 mg/24 hr Apply 1 patch as directed every 24 hours. Patient should start on December 30, 2024. - clomiPHENe (CLOMID) 50 mg tablet Take 1 tablet by mouth every other day. - sildenafil (REVATIO) 20 mg tablet TAKE 1 TABLET BY MOUTH DIRECTED (may take up to 5 (FIVE) TABLETS 1 (ONE) hour prior to sexual activity) - diazePAM (VALIUM) 2 mg tablet Take 1 tablet twice daily and 2 tablets at bedtime - XARELTO 20 mg tablet Take 1 tablet by mouth once daily. Patient should start on July 22, 2024. - hydrOXYzine pamoate (VISTARIL) 25 mg capsule Take 1 capsule by mouth three times a day as needed for itching/rash or anxiety. - albuterol (PROVENTIL) 2.5 mg /3 mL (0.083 %) nebulizer solution Use 3 mL via nebulizer every 6 hours as needed for wheezing/shortness of breath. - ondansetron orally disintegrating (ZOFRAN ODT) 4 mg disintegrating tablet Take 1 tablet by mouth every 8 hours as needed for nausea/vomiting. - montelukast (SINGULAIR) 10 mg tablet Take 1 tablet by mouth daily at bedtime. - morphine SR (MS CONTIN, ORAMORPH SR) 15 mg 12 hr tablet Take 1 tablet by mouth every 12 hours for 5 days. - acetaminophen (TYLENOL EXTRA STRENGTH) 500 mg tablet Take 2 tablets by mouth every 6 hours as needed for pain. - Pregabalin (LYRICA) 200 mg capsule Take 200 mg by mouth twice daily. - lidocaine (XYLOCAINE) 5 % ointment Apply to affected area as needed. Facility-Administered Medications as of 11/03/2024 - ondansetron (PF) 4 mg injection (ZOFRAN) [facility] CNTHERAPYon 10-31-2024 CNTHERAPY [facility] THERAPY NT 10-31-2024 THERAPY NT [facility] CNTHERAPYon 10-30-2024 CNTHERAPY OT/PT/Speech Visit ( IAPTW) NATACHAMATEUS A ([id number]) 1985 M Date Time Provider Department 10/30/24 9:15 AM CUONG MONROY GINGERP Date Time Provider Department Center 10/30/2024 9:15 AM [id number], TRACEY ZAHRAPTWP Fabby Marquez Reason for Visit: PT Progress Note [1596] Primary Visit Diagnosis:Paraplegia ([facility]) [G82.20] Other Visit Diagnoses:Gait abnormality [R26.9] T4 spinal cord injury, sequela ([facility]) [S24.102S] Impaired motor control [Z78.9] Impingement syndrome of right shoulder [M75.41] Allergies As of Date: 10/30/2024 Noted Allergy Reaction [id number] TRS 08/20/2019 4 - Hives Comments: Patient states he can tolerate penicillin and amoxicillin and has tolerated since the Zosyn reaction. There are no [facility] administrations of penicillins. Patient states he has tolerated oral cephalosporins in the past. There are outpatient prescription records for cephalexin listed in [facility]. ZOSYN (PIPERACILLIN-TAZOBACTAM) 07/31/2013 4 - Hives HYDROCODONE-ACETAMINOPHEN 07/31/2013 14 - Other: See Comments Comments: headaches PIPERACILLIN 01/14/2020 4 - Hives TAZOBACTAM 01/14/2020 4 - Hives CODEINE 05/11/2017 5 - Intolerance 14 - Other: See Comments Comments: nightmares Date Reviewed: 10/09/2024 Reviewed by: Dariana Concepcion LPN - Fully Assessed Prescriptions as of 10/30/2024 - baclofen 20 mg tablet Take 2 tablets by mouth two times a day. - ergocalciferol 50,000 unit capsule (VITAMIN D2, DRISDOL) Take 1 capsule by mouth two times a week. TO BE TAKEN ORALLY DIRECTED. Take 1 tablet by mouth twice weekly [id number], then decrease to 1 tablet weekly. - nicotine (NICODERM) 21 mg/24 hr Apply 1 patch as directed every 24 hours. - nicotine (NICODERM) 14 mg/24 hr Apply 1 patch as directed every 24 hours. Patient should start on November 30, 2024. - nicotine (NICODERM) 7 mg/24 hr Apply 1 patch as directed every 24 hours. Patient should start on December 30, 2024. - clomiPHENe (CLOMID) 50 mg tablet Take 1 tablet by mouth every other day. - sildenafil (REVATIO) 20 mg tablet TAKE 1 TABLET BY MOUTH DIRECTED (may take up to 5 (FIVE) TABLETS 1 (ONE) hour prior to sexual activity) - diazePAM (VALIUM) 2 mg tablet Take 1 tablet twice daily and 2 tablets at bedtime - XARELTO 20 mg tablet Take 1 tablet by mouth once daily. Patient should start on July 22, 2024. - hydrOXYzine pamoate (VISTARIL) 25 mg capsule Take 1 capsule by mouth three times a day as needed for itching/rash or anxiety. - albuterol (PROVENTIL) 2.5 mg /3 mL (0.083 %) nebulizer solution Use 3 mL via nebulizer every 6 hours as needed for wheezing/shortness of breath. - ondansetron orally disintegrating (ZOFRAN ODT) 4 mg disintegrating tablet Take 1 tablet by mouth every 8 hours as needed for nausea/vomiting. - montelukast (SINGULAIR) 10 mg tablet Take 1 tablet by mouth daily at bedtime. - morphine SR (MS CONTIN, ORAMORPH SR) 15 mg 12 hr tablet Take 1 tablet by mouth every 12 hours for 5 days. - acetaminophen (TYLENOL EXTRA STRENGTH) 500 mg tablet Take 2 tablets by mouth every 6 hours as needed for pain. - Pregabalin (LYRICA) 200 mg capsule Take 200 mg by mouth twice daily. - lidocaine (XYLOCAINE) 5 % ointment Apply to affected area as needed. Facility-Administered Medications as of 10/30/2024 - ondansetron (PF) 4 mg injection (ZOFRAN) Normal [facility] CNTHERAPYon 10-27-2024 CNTHERAPY OT/PT/Speech Visit ( IAPTWP) NATACHAMATEUS HARRY ([id number]) 1985 M Date Time Provider Department 10/27/24 9:15 AM CUONG MONROYP Date Time Provider Department Center 10/27/2024 9:15 AM [id number] MONROYPTWP Fabby Marquez Reason for Visit: Physical Therapy [503] Primary Visit Diagnosis:Gait abnormality [R26.9] Other Visit Diagnoses:T4 spinal cord injury, sequela ([facility]) [S24.102S] Paraplegia ([facility]) [G82.20] Impaired motor control [Z78.9] Allergies As of Date: 10/27/2024 Noted Allergy Reaction [id number] TRS 08/20/2019 4 - Hives Comments: Patient states he can tolerate penicillin and amoxicillin and has tolerated since the Zosyn reaction. There are no Epic administrations of penicillins. Patient states he has tolerated oral cephalosporins in the past. There are outpatient prescription records for cephalexin listed in [facility]. ZOSYN (PIPERACILLIN-TAZOBACTAM) 07/31/2013 4 - Hives HYDROCODONE-ACETAMINOPHEN 07/31/2013 14 - Other: See Comments Comments: headaches PIPERACILLIN 01/14/2020 4 - Hives TAZOBACTAM 01/14/2020 4 - Hives CODEINE 05/11/2017 5 - Intolerance 14 - Other: See Comments Comments: nightmares Date Reviewed: 10/09/2024 Reviewed by: Dariana Concepcion LPN - Fully Assessed Prescriptions as of 10/27/2024 - baclofen 20 mg tablet Take 2 tablets by mouth two times a day. - ergocalciferol 50,000 unit capsule (VITAMIN D2, DRISDOL) Take 1 capsule by mouth two times a week. TO BE TAKEN ORALLY DIRECTED. Take 1 tablet by mouth twice weekly [id number], then decrease to 1 tablet weekly. - nicotine (NICODERM) 21 mg/24 hr Apply 1 patch as directed every 24 hours. - nicotine (NICODERM) 14 mg/24 hr Apply 1 patch as directed every 24 hours. Patient should start on November 30, 2024. - nicotine (NICODERM) 7 mg/24 hr Apply 1 patch as directed every 24 hours. Patient should start on December 30, 2024. - clomiPHENe (CLOMID) 50 mg tablet Take 1 tablet by mouth every other day. - sildenafil (REVATIO) 20 mg tablet TAKE 1 TABLET BY MOUTH DIRECTED (may take up to 5 (FIVE) TABLETS 1 (ONE) hour prior to sexual activity) - diazePAM (VALIUM) 2 mg tablet Take 1 tablet twice daily and 2 tablets at bedtime - XARELTO 20 mg tablet Take 1 tablet by mouth once daily. Patient should start on July 22, 2024. - hydrOXYzine pamoate (VISTARIL) 25 mg capsule Take 1 capsule by mouth three times a day as needed for itching/rash or anxiety. - albuterol (PROVENTIL) 2.5 mg /3 mL (0.083 %) nebulizer solution Use 3 mL via nebulizer every 6 hours as needed for wheezing/shortness of breath. - ondansetron orally disintegrating (ZOFRAN ODT) 4 mg disintegrating tablet Take 1 tablet by mouth every 8 hours as needed for nausea/vomiting. - montelukast (SINGULAIR) 10 mg tablet Take 1 tablet by mouth daily at bedtime. - morphine SR (MS CONTIN, ORAMORPH SR) 15 mg 12 hr tablet Take 1 tablet by mouth every 12 hours for 5 days. - acetaminophen (TYLENOL EXTRA STRENGTH) 500 mg tablet Take 2 tablets by mouth every 6 hours as needed for pain. - Pregabalin (LYRICA) 200 mg capsule Take 200 mg by mouth twice daily. - lidocaine (XYLOCAINE) 5 % ointment Apply to affected area as needed. Facility-Administered Medications as of 10/27/2024 - ondansetron (PF) 4 mg injection (ZOFRAN) [facility] [id number] 10-24-2024 [id number] [facility] CNTHERAPYon 10-24-2024 CNTHERAPY [facility] THERAPY NTon 10-24-2024 THERAPY NT [facility] CNTHERAPYon 10-23-2024 CNTHERAPY OT/PT/Speech Visit ( IAPTWP) NATACHAMATEUS Kruger ([id number]) 1985 M Date Time Provider Department 10/23/24 9:15 AM CUONG MONROY JESSICAWP Date Time Provider Department Center 10/23/2024 9:15 AM [id number], TRACEY LI Marquez Reason for Visit: Physical Therapy [503] Primary Visit Diagnosis:Gait abnormality [R26.9] Other Visit Diagnoses:T4 spinal cord injury, 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] Muscle spasticity [M62.838] Impaired motor control [Z78.9] Allergies As of Date: 10/23/2024 Noted Allergy Reaction [id number] TRS 08/20/2019 4 - Hives Comments: Patient states he can tolerate penicillin and amoxicillin and has tolerated since the Zosyn reaction. There are no Epic administrations of penicillins. Patient states he has tolerated oral cephalosporins in the past. There are outpatient prescription records for cephalexin listed in [facility]. ZOSYN (PIPERACILLIN-TAZOBACTAM) 07/31/2013 4 - Hives HYDROCODONE-ACETAMINOPHEN 07/31/2013 14 - Other: See Comments Comments: headaches PIPERACILLIN 01/14/2020 4 - Hives TAZOBACTAM 01/14/2020 4 - Hives CODEINE 05/11/2017 5 - Intolerance 14 - Other: See Comments Comments: nightmares Date Reviewed: 10/09/2024 Reviewed by: Dariana Concepcion LPN - Fully Assessed Prescriptions as of 10/23/2024 - baclofen 20 mg tablet Take 2 tablets by mouth two times a day. - ergocalciferol 50,000 unit capsule (VITAMIN D2, DRISDOL) Take 1 capsule by mouth two times a week. TO BE TAKEN ORALLY DIRECTED. Take 1 tablet by mouth twice weekly [id number], then decrease to 1 tablet weekly. - nicotine (NICODERM) 21 mg/24 hr Apply 1 patch as directed every 24 hours. - nicotine (NICODERM) 14 mg/24 hr Apply 1 patch as directed every 24 hours. Patient should start on November 30, 2024. - nicotine (NICODERM) 7 mg/24 hr Apply 1 patch as directed every 24 hours. Patient should start on December 30, 2024. - clomiPHENe (CLOMID) 50 mg tablet Take 1 tablet by mouth every other day. - sildenafil (REVATIO) 20 mg tablet TAKE 1 TABLET BY MOUTH DIRECTED (may take up to 5 (FIVE) TABLETS 1 (ONE) hour prior to sexual activity) - diazePAM (VALIUM) 2 mg tablet Take 1 tablet twice daily and 2 tablets at bedtime - XARELTO 20 mg tablet Take 1 tablet by mouth once daily. Patient should start on July 22, 2024. - hydrOXYzine pamoate (VISTARIL) 25 mg capsule Take 1 capsule by mouth three times a day as needed for itching/rash or anxiety. - albuterol (PROVENTIL) 2.5 mg /3 mL (0.083 %) nebulizer solution Use 3 mL via nebulizer every 6 hours as needed for wheezing/shortness of breath. - ondansetron orally disintegrating (ZOFRAN ODT) 4 mg disintegrating tablet Take 1 tablet by mouth every 8 hours as needed for nausea/vomiting. - montelukast (SINGULAIR) 10 mg tablet Take 1 tablet by mouth daily at bedtime. - morphine SR (MS CONTIN, ORAMORPH SR) 15 mg 12 hr tablet Take 1 tablet by mouth every 12 hours for 5 days. - acetaminophen (TYLENOL EXTRA STRENGTH) 500 mg tablet Take 2 tablets by mouth every 6 hours as needed for pain. - Pregabalin (LYRICA) 200 mg capsule Take 200 mg by mouth twice daily. - lidocaine (XYLOCAINE) 5 % ointment Apply to affected area as needed. Facility-Administered Medications as of 10/23/2024 - ondansetron (PF) 4 mg injection (ZOFRAN) [facility] CNOVon 10-17-2024 [facility] CNTHERAPYon 10-16-2024 CNTHERAPY OT/PT/Speech Visit ( IAPTWP) MATEUS MANZANO ([id number]) 1985 M Date Time Provider Department 10/16/24 8:30 AM GEMINI DODDANTHA AKPTWP Date Time Provider Department Center 10/16/2024 8:30 AM [id number], DIANAAAKPTWP Fabby Marquez Reason for Visit: Physical Therapy [503] Primary Visit Diagnosis:T4 spinal cord injury, sequela ([facility]) [S24.102S] Other Visit Diagnoses:Impingement syndrome of right shoulder [M75.41] Impingement syndrome of left shoulder [M75.42] Gait abnormality [R26.9] Paraplegia ([facility]) [G82.20] Allergies As of Date: 10/16/2024 Noted Allergy Reaction [id number] TRS 08/20/2019 4 - Hives Comments: Patient states he can tolerate penicillin and amoxicillin and has tolerated since the Zosyn reaction. There are no Epic administrations of penicillins. Patient states he has tolerated oral cephalosporins in the past. There are outpatient prescription records for cephalexin listed in [facility]. ZOSYN (PIPERACILLIN-TAZOBACTAM) 07/31/2013 4 - Hives HYDROCODONE-ACETAMINOPHEN 07/31/2013 14 - Other: See Comments Comments: headaches PIPERACILLIN 01/14/2020 4 - Hives TAZOBACTAM 01/14/2020 4 - Hives CODEINE 05/11/2017 5 - Intolerance 14 - Other: See Comments Comments: nightmares Date Reviewed: 10/09/2024 Reviewed by: Dariana Concepcion LPN - Fully Assessed Prescriptions as of 10/16/2024 - cephALEXin (KEFLEX) 500 mg capsule Take 1 capsule by mouth two times a day for 7 days. - baclofen 20 mg tablet Take 2 tablets by mouth two times a day. - ergocalciferol 50,000 unit capsule (VITAMIN D2, DRISDOL) Take 1 capsule by mouth two times a week. TO BE TAKEN ORALLY DIRECTED. Take 1 tablet by mouth twice weekly [id number], then decrease to 1 tablet weekly. - nicotine (NICODERM) 21 mg/24 hr Apply 1 patch as directed every 24 hours. - nicotine (NICODERM) 14 mg/24 hr Apply 1 patch as directed every 24 hours. Patient should start on November 30, 2024. - nicotine (NICODERM) 7 mg/24 hr Apply 1 patch as directed every 24 hours. Patient should start on December 30, 2024. - clomiPHENe (CLOMID) 50 mg tablet Take 1 tablet by mouth every other day. - sildenafil (REVATIO) 20 mg tablet TAKE 1 TABLET BY MOUTH DIRECTED (may take up to 5 (FIVE) TABLETS 1 (ONE) hour prior to sexual activity) - diazePAM (VALIUM) 2 mg tablet Take 1 tablet twice daily and 2 tablets at bedtime - tiZANidine (ZANAFLEX) 4 mg tablet Take 2 tablets by mouth every 6 hours as needed. - XARELTO 20 mg tablet Take 1 tablet by mouth once daily. Patient should start on July 22, 2024. - hydrOXYzine pamoate (VISTARIL) 25 mg capsule Take 1 capsule by mouth three times a day as needed for itching/rash or anxiety. - albuterol (PROVENTIL) 2.5 mg /3 mL (0.083 %) nebulizer solution Use 3 mL via nebulizer every 6 hours as needed for wheezing/shortness of breath. - ondansetron orally disintegrating (ZOFRAN ODT) 4 mg disintegrating tablet Take 1 tablet by mouth every 8 hours as needed for nausea/vomiting. - montelukast (SINGULAIR) 10 mg tablet Take 1 tablet by mouth daily at bedtime. - morphine SR (MS CONTIN, ORAMORPH SR) 15 mg 12 hr tablet Take 1 tablet by mouth every 12 hours for 5 days. - acetaminophen (TYLENOL EXTRA STRENGTH) 500 mg tablet Take 2 tablets by mouth every 6 hours as needed for pain. - Pregabalin (LYRICA) 200 mg capsule Take 200 mg by mouth twice daily. - lidocaine (XYLOCAINE) 5 % ointment Apply to affected area as needed. Facility-Administered Medications as of 10/16/2024 - ondansetron (PF) 4 mg injection (ZOFRAN) [facility] CNTHERAPYon 10-13-2024 CNTHERAPY OT/PT/Speech Visit ( AKPTWP) NATCAHAMATEUS HARRY ([id number]) 1985 M Date Time Provider Department 10/13/24 8:00 AM CONRAD DODD AKPTWP Date Time Provider Department Center 10/13/2024 8:00 AM [id number], SAMANTHAAKPTWP Fabby Marquez Reason for Visit: Physical Therapy [503] Primary Visit Diagnosis:T4 spinal cord injury, sequela ([facility]) [S24.102S] Other Visit Diagnoses:Impingement syndrome of right shoulder [M75.41] Impingement syndrome of left shoulder [M75.42] Gait abnormality [R26.9] Paraplegia ([facility]) [G82.20] Allergies As of Date: 10/13/2024 Noted Allergy Reaction [id number] TRS 08/20/2019 4 - Hives Comments: Patient states he can tolerate penicillin and amoxicillin and has tolerated since the Zosyn reaction. There are no [facility] administrations of penicillins. Patient states he has tolerated oral cephalosporins in the past. There are outpatient prescription records for cephalexin listed in [facility]. ZOSYN (PIPERACILLIN-TAZOBACTAM) 07/31/2013 4 - Hives HYDROCODONE-ACETAMINOPHEN 07/31/2013 14 - Other: See Comments Comments: headaches PIPERACILLIN 01/14/2020 4 - Hives TAZOBACTAM 01/14/2020 4 - Hives CODEINE 05/11/2017 5 - Intolerance 14 - Other: See Comments Comments: nightmares Date Reviewed: 10/09/2024 Reviewed by: Dariana Concepcion LPN - Fully Assessed Prescriptions as of 10/16/2024 - cephALEXin (KEFLEX) 500 mg capsule Take 1 capsule by mouth two times a day for 7 days. - baclofen 20 mg tablet Take 2 tablets by mouth two times a day. - ergocalciferol 50,000 unit capsule (VITAMIN D2, DRISDOL) Take 1 capsule by mouth two times a week. TO BE TAKEN ORALLY DIRECTED. Take 1 tablet by mouth twice weekly [id number], then decrease to 1 tablet weekly. - nicotine (NICODERM) 21 mg/24 hr Apply 1 patch as directed every 24 hours. - nicotine (NICODERM) 14 mg/24 hr Apply 1 patch as directed every 24 hours. Patient should start on November 30, 2024. - nicotine (NICODERM) 7 mg/24 hr Apply 1 patch as directed every 24 hours. Patient should start on December 30, 2024. - clomiPHENe (CLOMID) 50 mg tablet Take 1 tablet by mouth every other day. - sildenafil (REVATIO) 20 mg tablet TAKE 1 TABLET BY MOUTH DIRECTED (may take up to 5 (FIVE) TABLETS 1 (ONE) hour prior to sexual activity) - diazePAM (VALIUM) 2 mg tablet Take 1 tablet twice daily and 2 tablets at bedtime - tiZANidine (ZANAFLEX) 4 mg tablet Take 2 tablets by mouth every 6 hours as needed. - XARELTO 20 mg tablet Take 1 tablet by mouth once daily. Patient should start on July 22, 2024. - hydrOXYzine pamoate (VISTARIL) 25 mg capsule Take 1 capsule by mouth three times a day as needed for itching/rash or anxiety. - albuterol (PROVENTIL) 2.5 mg /3 mL (0.083 %) nebulizer solution Use 3 mL via nebulizer every 6 hours as needed for wheezing/shortness of breath. - ondansetron orally disintegrating (ZOFRAN ODT) 4 mg disintegrating tablet Take 1 tablet by mouth every 8 hours as needed for nausea/vomiting. - montelukast (SINGULAIR) 10 mg tablet Take 1 tablet by mouth daily at bedtime. - morphine SR (MS CONTIN, ORAMORPH SR) 15 mg 12 hr tablet Take 1 tablet by mouth every 12 hours for 5 days. - acetaminophen (TYLENOL EXTRA STRENGTH) 500 mg tablet Take 2 tablets by mouth every 6 hours as needed for pain. - Pregabalin (LYRICA) 200 mg capsule Take 200 mg by mouth twice daily. - lidocaine (XYLOCAINE) 5 % ointment Apply to affected area as needed. Facility-Administered Medications as of 10/16/2024 - ondansetron (PF) 4 mg injection (ZOFRAN) Normal [facility] Urine Cultureon 10-12-2024 [facility] Klebsiella pneumonia e sp pneum [place] Count 11,000-25,000 Proteus mirabilis Proteus mirabilis Klebsiella pneumoniae sp pneum: REACTION Ampicillin Islt JUSTYN >=32 R Ampicillin+Sulbac Islt JUSTYN 4 Cefepime Islt JUSTYN <=0.12 S cefTRIAXone Islt JUSTYN <=0.25 S Ciprofloxacin Islt JUSTYN 1 R B-Lactamase Extended Susc Islt NEG Gentamicin Islt JUSTYN <=1 S levoFLOXacin Islt JUSTYN 1 I Meropenem Islt JUSTYN <=0.25 S Nitrofurantoin Islt JUSTYN 64 I Pip+Tazo Islt JUSTYN <=4 S TMP SMX Islt JUSTYN >=320 R Proteus mirabilis: REACTION Ampicillin Islt JUSTYN <=2 S Ampicillin+Sulbac Islt JUSTYN <=2 Cefepime Islt JUSTYN <=0.12 S cefTRIAXone Islt JUSTYN <=0.25 S Ciprofloxacin Islt JUSTYN <=0.06 S Gentamicin Islt JUSTYN <=1 S levoFLOXacin Islt JUSTYN <=0.12 S Meropenem Islt JUSTYN 1 S Nitrofurantoin Islt JUSTYN 128 R Pip+Tazo Islt JUSTYN <=4 S TMP SMX Islt JUSTYN <=20 S Normal [facility] Comment on above: Performed By: #### M 100.2200 #### [facility] [address] [place], [address] Absolute neutrophil countOrd ered By: Сергей Phan on 10-09-2024 Neutrophils (Bld) [#/Vol] 10.4 10*3/uL High 2.0-7.7 [facility] Anion gap in Serum or Plasma Ordered By: Сергей Phan on 10-09-2024 Anion gap [Moles/Vol] 11 mmol/L 5-15 [facility] BUN/creatinine ratioOrdered By: Сергей Phan on 10-09-2024 Urea nitrogen/Creatinine [Mass ratio] 9.3 mg/mg Low 10-20 [facility] Bacteria Ur Culton Bacteria identified Cx Nom (U) Abnormal [facility] Comment on above: Performed By: #### 6 30-4 ####[facility] LAB[facility] [id number] [place] [address] [place] Basophil percentageOrdered B y: Сергей Phan on 10-09-2024 Basophils/100 WBC (Bld) 0.5 % 0-1 [facility] Bilirubin Test strip Ql (U)O rdered By: Сергей Phan on 10-09-2024 Bilirubin Ql (U) Negative Negative [facility] Bilirubin, totalOrdered By: Сергей Phan on 10-09-2024 Bilirubin [Mass/Vol] 0.63 mg/dL 0.00-1.30 [facility] CBC W/Diff, Automatedon 09-17 Absolute Lymph 0.97 X10 3/uL Normal 0.83-4.51 [facility] Comment on above: Performed By: #### M 300.4500 #### [facility] [address] [place], [address] Absolute Neut 10.4 X10 3/uL High 2.0-7.7 [facility] Comment on above: Performed By: #### M 300.4500 #### [facility] [address] [place], [address] Basophils/100 WBC (Bld) 0.5 % Normal 0-1 [facility] Comment on above: Performed By: #### M 300.4500 #### [facility] [address] [place], [address] Eosinophils/100 WBC (Bld) 0.5 % Normal 0-5 [facility] Comment on above: Performed By: #### M 300.4500 #### [facility] [address] [place], [address] Erythrocyte distribution width (RBC) [Ratio] 13.6 % Normal 11.6-14.6 [facility] Comment on above: Performed By: #### M 300.4500 #### [facility] [address] [place], [address] Hematocrit (Bld) [Volume fraction] 48.3 % Normal 40-54 [facility] Comment on above: Performed By: #### M 300.4500 #### [facility] [address] [place], [address] Hemoglobin (Bld) [Mass/Vol] 16.6 g/dL High 13.0-16.5 [facility] Comment on above: Performed By: #### M 300.4500 #### [facility] [address] [place], [address] IG% 0.400 Normal 0.0-0.9 [facility] Comment on above: Result Comment: IG% - Immature Granulocytes (promyelocytes, myelocytes and metamyelocytes) > 1% indicates that a LEFT SHIFT is Present. Performed By: #### M 300.4500 #### [facility] [address] [place], [address] Lymphocytes/100 WBC (Bld) 8.0 % Low 19-41 [facility] Comment on above: Performed By: #### M 300.4500 #### [facility] [address] [place], [address] MCH (RBC) [Entitic mass] 31.6 pg Normal 27.0-32.0 [facility] Comment on above: Performed By: #### M 300.4500 #### [facility] [address] [place], [address] MCHC (RBC) [Mass/Vol] 34.4 g/dL Normal 32-36 [facility] Comment on above: Performed By: #### M 300.4500 #### [facility] [address] [place], [address] MCV (RBC) [Entitic vol] 92.0 fL Normal 80-94 [facility] Comment on above: Performed By: #### M 300.4500 #### [facility] [address] [place], [address] Monocytes/100 WBC (Bld) 4.5 % Normal 0-10 [facility] Comment on above: Performed By: #### M 300.4500 #### [facility] [address] [place], [address] Neutrophils/100 WBC (Bld) 86.1 % High 47-70 [facility] Comment on above: Performed By: #### M 300.4500 #### [facility] [address] [place], [address] Nucleated RBC (Bld) [#/Vol] 0 10*3/uL Normal 0-5 [facility] Comment on above: Performed By: #### M 300.4500 #### [facility] [address] [place], [address] Platelet mean volume (Bld) [Entitic vol] 10.7 fL Normal 6.2-12.0 [facility] Comment on above: Performed By: #### M 300.4500 #### [facility] [address] [place], [address] Platelets (Bld) [#/Vol] 150 10*3/uL Normal 150-450 [facility] Comment on above: Performed By: #### M 300.4500 #### [facility] [address] [place], [address] RBC (Bld) [#/Vol] 5.25 10*6/uL Normal 4.6-6.2 [facility] Comment on above: Performed By: #### M 300.4500 #### [facility] [address] [place], [address] RDW SD 46.4 fl High 35.1-43.9 [facility] Comment on above: Performed By: #### M 300.4500 #### [facility] [address] [place], [address] WBC (Bld) [#/Vol] 12.1 10*3/uL High 4.4-11.0 [facility] Comment on above: Performed By: #### M 357.4973 #### [facility] [address] [place], [place], [address] CNOVon 10-09-2024 CNOV Normal [facility] Carbon dioxide, total [Moles /volume] in Central venous bloodOrdered By: Сергей Phan on 10-09-2024 CO2 [Moles/Vol] 23.6 mmol/L 21.0-32.0 [facility] Chest 1 View (Portable)on Chest 1 View (Portable) [facility] Imaging Services [address] [place] [address] Chest 1 View (Portable) MR#: [id number] Acct: [id number] Name: MATEUS MANZANO Rep #: [id number] : 1985 M 39 From: Chuck Dalal PCP: Dr. Anay Roque MD Status: [facility] ER Study: Chest 1 View (Portable) Date of Exam: 10/09/24 Exam# [id number] Ordering Dr: Сергей Phna MD PROCEDURE: CHEST 1 VIEW (PORTABLE) 10/09/2024 REASON FOR EXAM: FEVER TECHNIQUE: Frontal view of the chest. COMPARISON: 01/02/2024 FINDINGS: Cardiomediastinal silhouette is within normal limits. Improved aeration of the lung bases without a residual consolidation. Mild elevation of the right hemidiaphragm, progressed from prior. No sizable pleural effusion or pneumothorax. RAD/Chest 1 View (Portable) IMPRESSION: 1. No acute airspace abnormality. 2. Elevated right hemidiaphragm, progressed from prior Reading Location: [facility] CC: Dr. Сергей Phan MD; Dr. Anay Roque MD Senior [employer]: Signed Normal [facility] Chloride assayOrdered By: Wisam Phan on 10-09-2024 Chloride [Moles/Vol] 104 mmol/L 98-108 [facility] Comprehensive Metabolic Prof ilon 10-09-2024 Albumin [Mass/Vol] 4.0 g/dL Normal 3.5-5.0 [facility] Comment on above: Performed By: #### M 300.4500 #### [facility] [address] [place], [address] Albumin/Globulin [Mass ratio] 1.3 {ratio} Normal 0.9-2.4 [facility] Comment on above: Performed By: #### M 300.4500 #### [facility] [address] [place], [address] ALK PHOS 83 U/L Normal 40-129 [facility] Comment on above: Performed By: #### M 300.4500 #### [facility] [address] [place], [address] ALT [Catalytic activity/Vol] 23 U/L Normal <=46 [facility] Comment on above: Performed By: #### M 300.4500 #### [facility] [address] [place], [address] AST [Catalytic activity/Vol] 19 U/L Normal <=37 [facility] Comment on above: Performed By: #### M 300.4500 #### [facility] [address] [place], [address] Bilirubin [Mass/Vol] 0.63 mg/dL Normal 0.00-1.30 [facility] Comment on above: Performed By: #### M 300.4500 #### [facility] [address] [place], [address] BUN/CRE 9.3 RATIO Low 10-20 [facility] Comment on above: Performed By: #### M 300.4500 #### [facility] [address] [place], [address] Calcium [Mass/Vol] 9.2 mg/dL Normal 7.6-11.0 [facility] Comment on above: Performed By: #### M 300.4500 #### [facility] [address] [place], [address] Chloride [Moles/Vol] 104 mmol/L Normal 98-108 [facility] Comment on above: Performed By: #### M 300.4500 #### [facility] [address] [place], [address] CO2 [Moles/Vol] 23.6 mmol/L Normal 21.0-32.0 [facility] Comment on above: Performed By: #### M 300.4500 #### [facility] [address] [place], [address] Creatinine [Mass/Vol] 0.85 mg/dL Normal 0.70-1.20 [facility] Comment on above: Performed By: #### M 300.4500 #### [facility] [address] [place], [address] ECRCL 165.14 ml/min Normal 50-250 [facility] Comment on above: Performed By: #### M 300.4500 #### [facility] [address] [place], [address] GAP 11 Normal 5-15 [facility] Comment on above: Performed By: #### M 300.4500 #### [facility] [address] [place], [address] GFR/1.73 sq M.predicted among non-blacks MDRD (S/P/Bld) [Vol rate/Area] 113 mL/min/{1.73_m2} Normal >60 [facility] Comment on above: Result Comment: mL/m in/1.73m2 CKD-EPI Creatinine Equation (2020) Performed By: #### M 300.4500 #### [facility] [address] [place], [address] Globulin (S) [Mass/Vol] 3.1 g/dL Normal 2.2-4.2 [facility] Comment on above: Performed By: #### M 300.4500 #### [facility] [address] [place], [address] Glucose [Mass/Vol] 103 mg/dL High 70-99 [facility] Comment on above: Performed By: #### M 300.4500 #### [facility] [address] [place], [address] Potassium [Moles/Vol] 3.8 mmol/L Normal 3.3-5.1 [facility] Comment on above: Performed By: #### M 300.4500 #### [facility] [address] [place], [address] Sodium [Moles/Vol] 138 mmol/L Normal 133-145 [facility] Comment on above: Performed By: #### M 300.4500 #### [facility] [address] [place], [address] T PROT 7.1 g/dL Normal 5.9-8.4 [facility] Comment on above: Performed By: #### M 300.4500 #### [facility] [address] [place], [address] Urea nitrogen [Mass/Vol] 8 mg/dL Normal 4-19 [facility] Comment on above: Performed By: #### M 300.4500 #### [facility] [address] [place], [address] Emergency Department Summary on 10-09-2024 Emergency Department Summary [facility] Medical Records Department [address] [place] [address] Emergency Department Summary 10/09/24 MR#: [id number] Acct: [id number] Name: MATEUS MANZANO Rep #: [id number] : 1985 39 From: Сергей Phan MD PCP: Dr. Anay Roque MD Status:DEP ER Location: ED ADDENDUM by Dr. Carly Monroe, DO on 10/12/24 at 1055 Urine culture grew 11-25,000 CFU per mL of Klebsiella pneumoniae and 1000-10,000 CFU's per mL Proteus Mirabella's. Will start the patient on Augmentin as it is sensitive to both antibiotics and as patient does self cath and is symptomatic. Chart review shows reaction of hives to Zosyn however patient has recently tolerated Augmentin without any issues. 10/12/24 1055 Cosigner Signature (if applicable): cc: Dr. Anay Roque MD * Signed HPI History of Present Illness Chief Complaint: Complaint Narrative Narrative: 39-year-old male past medical history of paraplegia, has to perform self-catheterization presents with fever today. He took Tylenol prior to arrival. He states he went to urgent care because he was having more urinary frequency and low back pain. He rated his pain a 4 out of 10 and took Tylenol and feels that its improved to 3. No colicky pain in his back. He has history of chronic back pain, however. No recent chills or cough. No shortness of breath. However, he developed body aches on the way here. As he had gone to urgent care, he gave him a urine sample, but they stated that he did not have an infection and he had elevated temperature above 100 ???F there. He presents because of the fever. [facility] Medical History Smoker MTHFR mutation Factor 5 Leiden mutation, heterozygous Low testosterone in male Abscess Paraplegia Home Medications ???Medication ???Instructions ???Recorded ???Last Taken ???Type baclofen 20 mg tablet 10 mg PO BID spasms 03/18/1301/01 History morphine 30 mg tablet,extended 15 mg PO Q12H pain 03/18/13 History release pregabalin 150 mg capsule (Lyrica) 200 mg PO BID nerve pain 6 01/02/24 History rivaroxaban 20 mg tablet (Xarelto) 20 mg PO DAILY blood thinner Unknown History tizanidine 2 mg capsule (Zanaflex) 2 mg PO BID muscle relaxer 02/1801/02/24 History clomiphene citrate 50 mg tablet 50 mg PO QODAY Testosterone Unknown History (Serophene) hydroxyzine pamoate 25 mg capsule 25 mg PO TID PRN PRN Anxiety #30 11/14/21 Unknown Rx caps prednisone 20 mg tablet 60 mg (3 x 20 mg) PO DAILY 2 01/02/24 Rx inflammation #15 tabs diclofenac sodium 50 mg 50 mg PO BID PRN PRN pain 01/02/24 01/02/24 History tablet,delayed release levofloxacin 750 mg tablet 750 mg PO DAILY 6 days #6 tabs Unknown Rx sulfamethoxazole 800 1 tab PO BID #14 TABLETS 05/11/24 Unknown Rx mg-trimethoprim 160 mg tablet Allergy/AdvReac Type Severity Reaction Status Date / Time codeine Allergy Other Verified 10/09/24 18:53 piperacillin sodium (From Allergy Hives Verified 10/09/24 18:53 Zosyn) tazobactam sodium (From Allergy Hives Verified 10/09/24 18:53 Zosyn) acetaminophen (From Vicodin) AdvReac Other Verified 10/09/24 18:53 hydrocodone bitartrate (From AdvReac Other Verified 10/09/24 18:53 Vicodin) Social History Smoking Status: Current every day smoker tobacco type: cigarettes ROS ROS ED ROS Narrative Review of systems positive for fever, exacerbation of chronic low back pain. No nausea or vomiting. No cough. Positive myalgias/body aches. Positive urinary frequency. EXAM Physical Exam Narrative Exam Narrative: Afebrile. Vital signs noted. Nontoxic-appearing. Cardiovascular examination reveals mild tachycardia. Lungs are clear to auscultation bilaterally. Abdomen soft and nontender. Neurological examination consistent with paraplegia. Const Vital Signs: 10/09/24 18:53 10/09/24 20:53 Temperature 99.7 F H Temperature Source Oral Pulse Rate 110 H 98 Respiratory Rate 16 16 Blood Pressure 151/89 H Blood Pressure Mean 109 Pulse Ox 95 91 Oxygen Delivery Method Room Air Room Air MDM MDM MDM Narrative Medical decision making narrative: Differential diagnosis includes but not limited to pneumonia versus urinary tract infection versus viral syndrome. Patient had taken Tylenol prior to arrival, hence he only has slightly elevated temperature of 99.7 here. I discussed with him imaging. I do not feel that he requires a CT of the abdomen pelvis. Additionally, I have a low suspicion for paraspinal abscess. I reviewed his laboratory work and he has slight leukocytosis of 12.1 which I think is nonspecific, hemoglobin hemoconce (more content not included)... Normal [facility] Eosinophil percentageOrdered By: Сергей Phan on 10-09-2024 Eosinophils/100 WBC (Bld) 0.5 % 0-5 [facility] Epithelial cells.squamous LM Ql (Urine sed)Ordered By: Сергей Phan on 10-09-2024 Epithelial cells.squamous LM.HPF (Urine sed) [#/Area] 0 /[HPF] 0-5 [facility] Erythrocyte distribution wid th (RBC) [Ratio]Ordered By: Сергей Phan on 10-09-2024 Erythrocyte distribution width (RBC) [Entitic vol] 46.4 fL High 35.1-43.9 [facility] Erythrocyte distribution wid th ratioOrdered By: Сергей Phan on 10-09-2024 Erythrocyte distribution width (RBC) [Ratio] 13.6 % 11.6-14.6 [facility] Estimation of creatinine jammie aranceOrdered By: Сергей Phan on 10-09-2024 Estimated Creatinine Clearance Calc 165.14 ml/min 50-250 [facility] GFR/1.73 sq M.predicted mike g non-blacks MDRD (S/P/Bld) [Vol rate/Area]Ordered By: Сергей Phan on 10-09-2024 Estimated GFR (MDRD) Non-Af Amer 113 >60 [facility] Comment on above: mL/min/1.73m2 CKD-EP I Creatinine Equation (2020) Glucose Ql (U)Ordered By: Wisam Phan on 10-09-2024 Urine Glucose (UA) Normal mg/dl Normal [facility] Hematocrit Auto (Bld) [Volum e fraction]Ordered By: Сергей Phan on 10-09-2024 Hematocrit (Bld) [Volume fraction] 48.3 % 40-54 [facility] Hemoglobin measurementOrdere d By: Сергей Phan on 10-09-2024 Hemoglobin (Bld) [Mass/Vol] 16.6 g/dL High 13.0-16.5 [facility] Immature granulocytes/100 WB C Auto (Bld)Ordered By: Сергей Phan on 10-09-2024 Immature granulocytes/100 WBC (Bld) 0.400 % 0.0-0.9 [facility] Comment on above: IG% - Immature Granu locytes (promyelocytes, myelocytes and metamyelocytes) > 1% indicates that a LEFT SHIFT is Present. Influenza virus A and B and SARS-CoV-2 (COVID-19) and Respiratory syncytial virus RNAOrdered By: Сергей Phan on 10-09-2024 SARS-CoV-2 (COVID-19) RNA PAUL+probe Ql (Unsp spec) [facility] Ketones Test strip Ql (U)Ord ered By: Сергей Phan on 10-09-2024 Ketones Ql (U) Negative Negative [facility] - Chemistry and C hemistry - challengeOrdered By: Сергей Phan on 10-09-2024 AST [Catalytic activity/Vol] 19 U/L <38 [facility] Lymphocytes Auto (Unsp spec) [#/Vol]Ordered By: Сергей Phan on 10-09-2024 Lymphocytes (Bld) [#/Vol] 0.97 10*3/uL 0.83-4.51 [facility] Lymphocytes/100 WBC Auto (Un sp spec)Ordered By: Сергей Phan on 10-09-2024 Lymphocytes/100 WBC (Bld) 8.0 % Low 19-41 [facility] M100.678on 10-09-2024 M100.678 Pending SARS-CoV-2 (COVID 19) Negative INFLUENZA A Negative INFLUENZA B Negative RSV PCR Negative Normal [facility] Comment on above: Performed By: #### M 469.7630 #### [facility] [address] [place], [address] MCV (mean corpuscular volume ) determinationOrdered By: Сергей Phan on 10-09-2024 MCV (RBC) [Entitic vol] 92.0 fL 80-94 [facility] Mean corpuscular hemoglobin (MCH) determinationOrdered By: Сергей Phan on 10-09-2024 MCH (RBC) [Entitic mass] 31.6 pg 27.0-32.0 [facility] Mean corpuscular hemoglobin concentration (MCHC) determinationOrdered By: Сергей Phan on 10-09-2024 MCHC (RBC) [Mass/Vol] 34.4 g/dL 32-36 [facility] Mean platelet volume determi nationOrdered By: Сергей Phan on 10-09-2024 Platelet mean volume (Bld) [Entitic vol] 10.7 fL 6.2-12.0 [facility] Microscopic analysis of urin e for red blood cells (RBC)Ordered By: Сергей Phan on 10-09-2024 Urine RBC 0 SEEN /hpf 0-5 [facility] Monocyte percentageOrdered B y: Сергей Phan on 10-09-2024 Monocytes/100 WBC (Bld) 4.5 % 0-10 [facility] Mucus LM Ql (Urine sed)Order ed By: Сергей Phan on 10-09-2024 Mucus Ql (Urine sed) 0 SEEN /hpf [facility] Neutrophil percentageOrdered By: Сергей Phan on 10-09-2024 Neutrophils/100 WBC (Bld) 86.1 % High 47-70 [facility] Nitrite Test strip Ql (U)Ord ered By: Сергей Phan on 10-09-2024 Nitrite Ql (U) Negative Negative [facility] Nucleated red blood cell per centageOrdered By: Сергей Phan on 10-09-2024 Nucleated RBC/100 WBC (Bld) [Ratio] 0 % 0-5 [facility] Platelet countOrdered By: Wisam Phan on 10-09-2024 Platelets (Bld) [#/Vol] 150 10*3/uL 150-450 [facility] Potassium (Unsp spec) [Mass/ Vol]Ordered By: Сергей Phan on 10-09-2024 Potassium [Moles/Vol] 3.8 mmol/L 3.3-5.1 [facility] Protein Test strip Ql (U)Ord ered By: Сергей Phan on 10-09-2024 Protein Ql (U) 15 mg/dl High Negative [facility] RBC Auto (Bld) [#/Vol]Ordere d By: Сергей Phan on 10-09-2024 RBC (Bld) [#/Vol] 5.25 10*6/uL 4.6-6.2 [facility] Serum creatinine measurement (mass/volume)Ordered By: Сергей Phan on 10-09-2024 Creatinine [Mass/Vol] 0.85 mg/dL 0.70-1.20 [facility] Serum globulin measurementOr dered By: Сергей Phan on 10-09-2024 Globulin (S) [Mass/Vol] 3.1 g/dL 2.2-4.2 [facility] Serum glucose measurement (m ass/volume)Ordered By: Сергей Phan on 10-09-2024 Glucose [Mass/Vol] 103 mg/dL High 70-99 [facility] Serum or plasma alanine monzon otransferase (ALT) measurementOrdered By: Сергей Phan on 10-09-2024 ALT [Catalytic activity/Vol] 23 U/L <47 [facility] Serum or plasma albumin praveen urement (mass/volume)Ordered By: Сергей Phan on 10-09-2024 Albumin [Mass/Vol] 4.0 g/dL 3.5-5.0 [facility] Serum or plasma albumin/glob ulin mass ratioOrdered By: Сергей Phan on 10-09-2024 Albumin/Globulin [Mass ratio] 1.3 {ratio} 0.9-2.4 [facility] Serum or plasma alkaline germain sphatase measurementOrdered By: Сергей Phan on 10-09-2024 ALP [Catalytic activity/Vol] 83 U/L 40-129 [facility] Serum or plasma calcium praveen urement (mass/volume)Ordered By: Сергей Phan on 10-09-2024 Calcium [Mass/Vol] 9.2 mg/dL 7.6-11.0 [facility] Serum or plasma urea nitroge n measurement (mass/volume)Ordered By: Сергей Phan on 10-09-2024 Urea nitrogen [Mass/Vol] 8 mg/dL 4-19 [facility] Sodium levelOrdered By: Сергей Phan on 10-09-2024 Sodium [Moles/Vol] 138 mmol/L 133-145 [facility] Total proteinOrdered By: Aysha Phan on 10-09-2024 Protein [Mass/Vol] 7.1 g/dL 5.9-8.4 [facility] Urinalysis, Completeon 10-09 WBC 5-10 SEEN Normal 0-5 [facility] Comment on above: Order Comment: TESSA CTOR TO SPECIFY Performed By: #### M 300.4500 #### [facility] [address] [place], [address] BACTERIA 0 SEEN Normal None Seen [facility] Comment on above: Order Comment: TESSA CTOR TO SPECIFY Performed By: #### M 300.4500 #### [facility] [address] [place], [address] EPI,SQUAMOUS 0 SEEN Normal 0-5 [facility] Comment on above: Order Comment: TESSA CTOR TO SPECIFY Performed By: #### M 300.4500 #### [facility] [address] [place], [address] Mucus Ql (Urine sed) 0 SEEN Normal [facility] Comment on above: Order Comment: TESSA CTOR TO SPECIFY Performed By: #### M 300.4500 #### [facility] [address] [place], [address] RBC 0 SEEN Normal 0-5 [facility] Comment on above: Order Comment: TESSA CTOR TO SPECIFY Performed By: #### M 300.4500 #### [facility] [address] [place], [address] Urine blood detectionOrdered By: Сергей Phan on 10-09-2024 Urine Occult Blood 10 /ul High Negative [facility] Urine clarityOrdered By: Aysha Phan on 10-09-2024 Clarity (U) Clear Clear [facility] Urine color determinationOrd ered By: Сергей Phan on 10-09-2024 Color (U) Yellow Yellow [facility] Urine leukocyte esterase det ection by dipstickOrdered By: Сергей Phan on 10-09-2024 Leukocyte esterase Test strip Ql (U) 500 /ul High Negative [facility] Urine pHOrdered By: Сергей Rich iqrajanay on 10-09-2024 pH (U) 7.0 [pH] 5.0 - 8.0 [facility] Urine sediment bacteria coun t by microscopy (number/high power field)Ordered By: Сергей Jean Mariejanay on 10-09-2024 Bacteria LM.HPF (Urine sed) [#/Area] 0 /[HPF] None Seen [facility] Urine specific gravity measu rementOrdered By: Сергей Ajjanay on 10-09-2024 Specific gravity (U) [Rel density] 1.005 1.002-1.03 0 [facility] Urobilinogen Ql (U)Ordered B y: Сергей Phan on 10-09-2024 Urine Urobilinogen Normal mg/dl Normal [facility] White blood cell (WBC) count Ordered By: Сергей Jean Mariejanay on 10-09-2024 WBC (Bld) [#/Vol] 12.1 10*3/uL High 4.4-11.0 [facility] White blood cell countOrdere d By: Сергей Jean Mariejanay on 10-09-2024 Urine WBC 5-10 SEEN /hpf 0-5 [facility] CNCOon 10-02-2024 CNCO Letter Text Letter Text Normal [facility] CNPNon 10-02-2024 CNPN Normal [facility] 25(OH)D3 SerPl-mCncon 2024 25-hydroxyvitamin D3 [Mass/Vol] 18.9 ng/mL Low 31.0-80.0 [facility] Comment on above: Order Comment: Speci men Type: BLOOD SPECIMENOrdering Facility: [facility] Address: [address] [place] [address] Result Comment: Clas sification of 25 [place] Vitamin D status:Deficiency/Insufficiency: < or = 30 ng/ml.Sufficiency/Optimal Levels: 31-80 ng/mLToxicity: > 100 ng/mL.Test performed by chemiluminescent immunoassay. Performed By: #### 1 989-3 ####[facility] LABCLIA [id number] [address] [place] Bacteria Ur Culton Bacteria identified Cx Nom (U) Normal [facility] Comment on above: Performed By: #### 2 4356-8, 630-4 ####[facility] LABIA [id number] [address] [place] CBC panel Auto (Bld)on 09-30 Erythrocyte distribution width (RBC) [Ratio] 13.8 % Normal 11.5-15.0 [facility] Comment on above: Order Comment: Speci men Type: BLOOD SPECIMENOrdering Facility: [facility] Address: [address] [place] [address] Performed By: #### 5 8410-2 ####[facility] [id number] [address] [place] Hematocrit (Bld) [Volume fraction] 51.1 % High 39.0-51.0 [facility] Comment on above: Order Comment: Speci men Type: BLOOD SPECIMENOrdering Facility: [facility] Address: [address] [place] [address] Performed By: #### 5 8410-2 ####[facility] LABIA [id number] [address] [place] Hemoglobin (Bld) [Mass/Vol] 16.6 g/dL Normal 13.0-17.0 [facility] Comment on above: Order Comment: Speci men Type: BLOOD SPECIMENOrdering Facility: [facility] Address: [address] [place] [address] Performed By: #### 5 8410-2 ####[facility] [id number] [place] [address] [place] MCH (RBC) [Entitic mass] 30.9 pg Normal 26.0-34.0 [facility] Comment on above: Order Comment: Speci men Type: BLOOD SPECIMENOrdering Facility: [facility] Address: [address] [place] [address] Performed By: #### 5 8410-2 ####[facility] LABCLIA [id number] [place] [address] [place] MCHC (RBC) [Mass/Vol] 32.5 g/dL Normal 30.5-36.0 [facility] Comment on above: Order Comment: Speci men Type: BLOOD SPECIMENOrdering Facility: [facility] Address: [address] [place] [address] Performed By: #### 5 8410-2 ####[facility] LABIA [id number] [place] [address] [place] MCV (RBC) [Entitic vol] 95.2 fL Normal 80.0-100.0 [facility] Comment on above: Order Comment: Speci men Type: BLOOD SPECIMENOrdering Facility: [facility] Address: [address] [place] [address] Performed By: #### 5 8410-2 ####[facility] LABIA [id number] [place] [address] [place] Nucleated RBC (Bld) [#/Vol] 10*3/uL Normal <0.01 [facility] Comment on above: Order Comment: Speci men Type: BLOOD SPECIMENOrdering Facility: [facility] Address: [address] [place] [address] Performed By: #### 5 8410-2 ####[facility] LABIA [id number] [place] [address] [place] Platelet mean volume (Bld) [Entitic vol] 10.6 fL Normal 9.0-12.7 [facility] Comment on above: Order Comment: Speci men Type: BLOOD SPECIMENOrdering Facility: [facility] Address: [address] [place] [address] Performed By: #### 5 8410-2 ####[facility] LABIA [id number] [address] [address] [place] Platelets (Bld) [#/Vol] 194 10*3/uL Normal 150-400 [facility] Comment on above: Order Comment: Speci men Type: BLOOD SPECIMENOrdering Facility: [facility] Address: [address] [place] [address] Performed By: #### 5 8410-2 ####[facility] LABIA [id number] [place] [id number] [place] RBC (Bld) [#/Vol] 5.37 10*6/uL Normal 4.20-6.00 [facility] Comment on above: Order Comment: Speci men Type: BLOOD SPECIMENOrdering Facility: [facility] Address: [address] [place] [address] Performed By: #### 5 8410-2 ####[facility] LABIA [id number] [place] [address] [place] [facility] WBC (Bld) [#/Vol] 7.05 10*3/uL Normal 3.70-11.00 [facility] Comment on above: Order Comment: Speci men Type: BLOOD SPECIMENOrdering Facility: [facility] Address: [address] [place] [address] Performed By: #### 5 8410-2 ####[facility] LABIA [id number] [place] [id number] [place] CNOVon 09-30-2024 CNOV Normal [facility] Comprehensive metabolic 2000 panelon 09-30-2024 Albumin [Mass/Vol] 4.1 g/dL Normal 3.9-4.9 [facility] Comment on above: Order Comment: Speci men Type: BLOOD SPECIMENOrdering Facility: [facility] Address: [address] [place] [address] Performed By: #### 2 4323-8 ####[facility] LABCLIA [id number] [address] [place] [address] [place] ALP [Catalytic activity/Vol] 77 U/L Normal 38-113 [facility] Comment on above: Order Comment: Speci men Type: BLOOD SPECIMENOrdering Facility: [facility] Address: [address] [place] [address] Performed By: #### 2 4323-8 ####[facility] LABCLIA [id number] [facility] [place] [id number] [place] ALT [Catalytic activity/Vol] 28 U/L Normal 10-54 [facility] Comment on above: Order Comment: Speci men Type: BLOOD SPECIMENOrdering Facility: [facility] Address: [address] [place] [address] Performed By: #### 2 4323-8 ####[facility] LABCLIA [id number] [facility] [address], [facility] [place] Anion gap [Moles/Vol] 9 mmol/L Normal 8-15 [facility] Comment on above: Order Comment: Speci men Type: BLOOD SPECIMENOrdering Facility: [facility] Address: [address] [place] [address] Performed By: #### 2 4323-8 ####[facility] LABCLIA [id number] [facility] [place] [id number] [place] AST [Catalytic activity/Vol] 20 U/L Normal 14-40 [facility] Comment on above: Order Comment: Speci men Type: BLOOD SPECIMENOrdering Facility: [facility] Address: [address] [place] [address] Performed By: #### 2 4323-8 ####[facility] LABCLIA [id number] [place] [id number] [place] Bilirubin [Mass/Vol] 0.4 mg/dL Normal 0.2-1.3 [facility] Comment on above: Order Comment: Speci men Type: BLOOD SPECIMENOrdering Facility: [facility] Address: [address] [place] [address] Performed By: #### 2 4323-8 ####[facility] LABCLIA [id number] [address] [address] [place] Calcium [Mass/Vol] 9.2 mg/dL Normal 8.5-10.2 [facility] Comment on above: Order Comment: Speci men Type: BLOOD SPECIMENOrdering Facility: [facility] Address: [address] [place] [address] Performed By: #### 2 4323-8 ####[facility] LABCLIA [id number] [place] [id number] [place] Chloride [Moles/Vol] 103 mmol/L Normal 98-107 [facility] Comment on above: Order Comment: Speci men Type: BLOOD SPECIMENOrdering Facility: [facility] Address: [address] [place] [address] Performed By: #### 2 4323-8 ####[facility] LABCLIA [id number] [place] [address] [place] CO2 [Moles/Vol] 29 mmol/L Normal 22-30 [facility] Comment on above: Order Comment: Speci men Type: BLOOD SPECIMENOrdering Facility: [facility] Address: [address] [place] [address] Performed By: #### 2 4323-8 ####[facility] LABCLIA [id number] [place] [id number] [place] Creatinine [Mass/Vol] 0.83 mg/dL Normal 0.73-1.22 [facility] Comment on above: Order Comment: Speci men Type: BLOOD SPECIMENOrdering Facility: [facility] Address: [address] [place] [address] Performed By: #### 2 4323-8 ####[facility] LABCLIA [id number] [place] [id number] [place] Creatinine and Glomerular filtration rate.predicted panel (S/P/Bld) 113 mL/min/1.73m??? Normal >=60 [facility] Comment on above: Order Comment: Augustina gary Type: BLOOD SPECIMENOrdering Facility: [facility] Address: [address] [place] [address] Result Comment: Re mated Glomerular Filtration Rate (eGFR) is calculated using the 2020 CKD-EPI creatinine equation. This equation utilizes serum creatinine, sex, and age as parameters. The creatinine assay has traceable calibration to isotope dilution-mass spectrometry. Refer to KDIGO guidelines for clinical interpretation. In patients with unstable renal function, e.g. those with acute kidney injury, the eGFR may not accurately reflect actual GFR. Performed By: #### 2 4323-8 ####[facility] [id number] [place] [address] [place] Glucose [Mass/Vol] 88 mg/dL Normal 74-99 [facility] Comment on above: Order Comment: Augustina gary Type: BLOOD SPECIMENOrdering Facility: [facility] Address: [address] [place] [address] Result Comment: The [place] Diabetes Association (ADA) provides guidance for cutoff values for fasting glucose and random glucose. The ADA defines fasting as no caloric intake for at least 8 hours. Fasting plasma glucose results between 100 to 125 mg/dL indicate increased risk for diabetes (prediabetes).Fasting plasma glucose results greater than or equal to 126 mg/dL meet the criteria for diagnosis of diabetes. In the absence of unequivocal hyperglycemia, results should be confirmed by repeat testing. In a patient with classic symptoms of hyperglycemia or hyperglycemic crisis, random plasma glucose results greater than or equal to 200 mg/dL meet the criteria for diagnosis of diabetes.Reference: Standards of Medical Care in Diabetes 2016, [place] [employer]. Diabetes Care. 2016.39(Suppl 1). Performed By: #### 2 4323-8 ####[facility] LAB[facility] [id number] [place] [address] [place] Potassium [Moles/Vol] 4.4 mmol/L Normal 3.7-5.1 [facility] Comment on above: Order Comment: Speci men Type: BLOOD SPECIMENOrdering Facility: [facility] Address: [address] [place] [address] Performed By: #### 2 4323-8 ####[facility] LABCLIA [id number] [place] [address] [place] Protein [Mass/Vol] 7.1 g/dL Normal 6.3-8.0 [facility] Comment on above: Order Comment: Speci men Type: BLOOD SPECIMENOrdering Facility: [facility] Address: [address] [place] [address] Performed By: #### 2 4323-8 ####[facility] LABIA [id number] [place] [address] [place] Sodium [Moles/Vol] 141 mmol/L Normal 136-144 [facility] Comment on above: Order Comment: Speci men Type: BLOOD SPECIMENOrdering Facility: [facility] Address: [address] [place] [address] Performed By: #### 2 4323-8 ####[facility] LABIA [id number] [place] [address] [place] Urea nitrogen [Mass/Vol] 10 mg/dL Normal 9-24 [facility] Comment on above: Order Comment: Speci men Type: BLOOD SPECIMENOrdering Facility: [facility] Address: [address] [place] [address] Performed By: #### 2 4323-8 ####[facility] LABIA [id number] [place] [id number] [place] Urinalysis complete panel (U )on 09-30-2024 Bacteria uL 2047.7 uL High - 941 uL [facility] Bilirubin Ql (U) Negative Negative [facility] Clarity (Unsp spec) Clear Clear [facility] Color (U) Yellow Yellow [facility] Epithelial cells LM.HPF (Urine sed) [#/Area] None Seen /HPF [facility] Glucose Test strip (U) [Mass/Vol] Negative Negative [facility] Hemoglobin Ql (U) Negative Negative [facility] Hyaline casts (Urine sed) [#/Area] 0 /[LPF] 0 /LPF [facility] Interpretation and review of laboratory results Abnormal [facility] Ketones Ql (U) Negative Negative [facility] Leukocyte esterase Test strip Ql (U) 1+ Abnormal Negative [facility] Nitrite Ql (U) Negative Negative [facility] pH (U) 7.5 [pH] NINF - 8.5 [facility] Protein (U) [Mass/Vol] Negative Negative Cl [facility] RBC LM.HPF (Urine sed) [#/Area] 0-2 /HPF 0-2 /HPF [facility] Specific gravity (U) [Rel density] 1.016 1.005 - 1.030 [facility] Urobilinogen Ql (U) 0.2 EU/dL 0.2-1.0 EU/dL [facility] WBC LM.HPF (Urine sed) [#/Area] /[HPF] Abnormal 0-5 /HPF [facility] This test was kalyn cates and its performance characteristics determined by [facility]'s [facility] Pathology [facility] [place] ([facility]). It has not been cleared or approved by the FDA. [facility] is regulated under CLIA as qualified to perform high-complexity testing. This test is used for clinical purposes. It should not be regarded as investigational or for research. [facility] BACTERIA UL 2047.7 uL High Negative [facility] Comment on above: Order Comment: Speci men Type: URINE SPECIMENOrdering Facility: [facility] Address: [address] [place] [address] Performed By: #### 2 4357-6, 715-4 ####[facility] LABCLIA [id number] [place] [address] [place] Bilirubin Ql (U) Negative Normal Negative [facility] Comment on above: Order Comment: Speci men Type: URINE SPECIMENOrdering Facility: [facility] Address: [address] [place] [address] Performed By: #### 2 4358-4, 321-2 ####[facility] LABCLIA [id number] [address] [place] [address] [place] Clarity (Unsp spec) Clear Normal Clear [facility] Comment on above: Order Comment: Speci men Type: URINE SPECIMENOrdering Facility: [facility] Address: [address] [place] [address] Performed By: #### 2 4356-8, 630-4 ####[facility] LABCLIA [id number] [address], [facility]95 [place] Color (U) Yellow Normal Yellow [facility] Comment on above: Order Comment: Speci men Type: URINE SPECIMENOrdering Facility: [facility] Address: [address] [place] [address] Performed By: #### 2 4356-8, 630-4 ####[facility] LABCLIA [id number] [address], [place] [address] [place] Epithelial cells LM.HPF (Urine sed) [#/Area] None Seen Normal [facility] Comment on above: Order Comment: Speci men Type: URINE SPECIMENOrdering Facility: [facility] Address: [address] [place] [address] Performed By: #### 2 4356-8, 630-4 ####[facility] LABCLIA [id number] [address], [facility]95 [place] Glucose Test strip (U) [Mass/Vol] Negative Normal Negative [facility] Comment on above: Order Comment: Speci men Type: URINE SPECIMENOrdering Facility: [facility] Address: [address] [place] [address] Performed By: #### 2 4356-8, 630-4 ####[facility] LABCLIA [id number] [address], [facility] [place] Hemoglobin Ql (U) Negative Normal Negative [facility] Comment on above: Order Comment: Speci men Type: URINE SPECIMENOrdering Facility: [facility] Address: [address] [place] [address] Performed By: #### 2 4356-8, 630-4 ####[facility] LABCLIA [id number] [address] [place] [address] [place] Hyaline casts (Urine sed) [#/Area] 0 /[LPF] Normal 0 /LPF [facility] Comment on above: Order Comment: Speci men Type: URINE SPECIMENOrdering Facility: [facility] Address: [address] [place] [address] Performed By: #### 2 4356-8, 630-4 ####[facility] LABCLIA [id number] [address], [facility] [place] Ketones Ql (U) Negative Normal Negative [facility] Comment on above: Order Comment: Speci men Type: URINE SPECIMENOrdering Facility: [facility] Address: [address] [place] [address] Performed By: #### 2 4356-8, 630-4 ####[facility] LABCLIA [id number] [address], [facility]95 [place] Leukocyte esterase Test strip Ql (U) 1+ Abnormal Negative [facility] Comment on above: Order Comment: Speci men Type: URINE SPECIMENOrdering Facility: [facility] Address: [address] [place] [address] Performed By: #### 2 4356-8, 630-4 ####[facility] LABCLIA [id number] [address] [place] [address] [place] Nitrite Ql (U) Negative Normal Negative [facility] Comment on above: Order Comment: Speci men Type: URINE SPECIMENOrdering Facility: [facility] Address: [address] [place] [address] Performed By: #### 2 4356-8, 630-4 ####[facility] LABCLIA [id number] [address] [place] [address] [place] pH (U) 7.5 [pH] Normal <8.5 [facility] Comment on above: Order Comment: Speci men Type: URINE SPECIMENOrdering Facility: [facility] Address: [address] [place] [address] Performed By: #### 2 4356-8, 630-4 ####[facility] LABIA [id number] [place] [address] [place] Protein (U) [Mass/Vol] Negative Normal Negative Cl [facility] Comment on above: Order Comment: Speci men Type: URINE SPECIMENOrdering Facility: [facility] Address: [address] [place] [address] Performed By: #### 2 4356-8, 630-4 ####[facility] LABIA [id number] [place] [address] [place] RBC LM.HPF (Urine sed) [#/Area] 0-2 /HPF Normal 0-2 /HPF [facility] Comment on above: Order Comment: Speci men Type: URINE SPECIMENOrdering Facility: [facility] Address: [address] [place] [address] Performed By: #### 2 4356-8, 630-4 ####[facility] [id number] [place] [address] [place] Specific gravity (U) [Rel density] 1.016 Normal 1.005-1.03 0 [facility] Comment on above: Order Comment: Speci men Type: URINE SPECIMENOrdering Facility: [facility] Address: [address] [place] [address] Performed By: #### 2 4356-8, 630-4 ####[facility] LABIA [id number] [place] [address] [place] Urobilinogen Ql (U) 0.2 EU/dL Normal 0.2-1.0 EU/dL [facility] Comment on above: Order Comment: Speci men Type: URINE SPECIMENOrdering Facility: [facility] Address: [address] [place], [place] [address] Performed By: #### 2 4356-8, 630-4 ####[facility] LABIA [id number] [place] [id number] [place] WBC LM.HPF (Urine sed) [#/Area] /[HPF] Abnormal 0-5 /HPF [facility] Comment on above: Order Comment: Speci men Type: URINE SPECIMENOrdering Facility: [facility] Address: [address] [place] [address] Performed By: #### 2 4356-8, 630-4 ####[facility] LABIA [id number] [place] [address] [place] [id number] 09-23-2024 [id number] HNO ID: [id number] Author: CUONG MONROY PT Service: ? Author Type: Physical Therapist Type: [id number] Filed: 09/23/2024 10:32 Note Text: [facility] Physical Therapy Plan of Care Certification Patient Name: Mateus Manzano : 1985 CC #: [id number] Date: 09/22/2024 To: Daysi Roque PA-C From Therapist: Cuong Monroy PT RE: Patient Certification/ Recertification Your review, approval and electronic signature are required in order to comply with Payor: [facility] MEDICARE / Plan: [facility] MEDICARE / Product Type: Medicare / regulations. The identified Physical Therapy PLAN OF CARE for the patient is as follows: S24.102S T4 spinal cord injury, sequela (HCC) (primary encounter diagnosis) M62.838 Muscle spasticity PLAN OF CARE: Assessment: Mateus Manzano presents with diagnosis of T4 Incomplete SCI that interferes with rising from a chair, standing, walking, walking in the house, physical activities, recreational activities . He is well known to this clinic. The patient presents with impairments in balance, flexibility, gait, independence in exercise, overall function, strength, and symptom management. PROMIS? (Patient-Reported Outcomes Measurement Information System) scores were reviewed and identified as a rehabilitation concern. Prognosis for therapy is Good due to: current objective clinical presentation . The patient had his ITB pump removed in June of this year and is having his tone medically managed with oral medication and botox injections in his hip flexors. The patient will benefit from skilled therapy services to meet the goals established for this plan of care as noted below. Goals for Episode of Care: established 09/22/24 Patient will demonstrate current home exercise program independently. Improve five time sit to stand to 12 seconds to decrease risk of falls with single UE assist vs both. Improve score on Timed Up and Go to <12 sec to decrease risk of falls . Improve 10 meter walk speed to >0.8 m/s to improve community ambulation with use of single forearm crutch. Patient Goals: To get back to walking Time Frame for Goals and Treatment : 10/04/24 Planned Interventions, Frequency, and Duration: Current Frequency: 2x/week Duration: 12 weeks Total Number of Visits Planned: 24 Planned Treatment Interventions: Therapeutic exercise (86403), Neuromuscular re-education (57518), Manual therapy (29821), Therapeutic activities (20515), Self-prison management (09513), Gait Training (64152), Patient/Family/Caregiver Education, Body Mechanics Training, Functional training, General Conditioning PLAN FOR NEXT VISIT: Bioness set up left side, use of litegait for safety - TM if able. Patient demonstrates good understanding of plan of care and treatment. The above goals and plan of care were discussed and agreed upon by patient/family. For further details regarding this patient refer to the Physical Therapy electronically documented visit dated 09/22/2024. Provider Attestation I have reviewed the treatment plan for Mateus Kruger Natacha, [facility]# [id number] for the period of 09/22/24 -- 12/21/24, established on 09/22/2024. Signature certifies the need for therapy services. Normal [facility] CNTHERAPYon 09-23-2024 CNTHERAPY Normal [facility] THERAPY NTon 09-23-2024 THERAPY NT Normal [facility] CNTHERAPYon 09-22-2024 CNTHERAPY OT/PT/Speech Visit ( AKPTWP) NATACHAMATEUS ([id number]) 1985 M Date Time Provider Department 09/22/24 10:00 AM CUONG MONROY ZAHRAPTWP Date Time Provider Department [place] 09/22/2024 10:00 AM [id number], TRACEY ZAHRAPT Fabby Marquez Reason for Visit: PT Eval [747] Primary Visit Diagnosis:T4 spinal cord injury, sequela ([facility]) [S24.102S] Other Visit Diagnoses:Muscle spasticity [M62.838] Gait abnormality [R26.9] Paraplegia ([facility]) [G82.20] Allergies As of Date: 09/22/2024 Noted Allergy Reaction GNEOXWKKMUEC-TXVJEOBNOT-LPS TRS 08/20/2019 4 - Hives Comments: Patient states he can tolerate penicillin and amoxicillin and has tolerated since the Zosyn reaction. There are no [facility] administrations of penicillins. Patient states he has tolerated oral cephalosporins in the past. There are outpatient prescription records for cephalexin listed in [facility]. ZOSYN (PIPERACILLIN-TAZOBACTAM) 07/31/2013 4 - Hives HYDROCODONE-ACETAMINOPHEN 07/31/2013 14 - Other: See Comments Comments: headaches PIPERACILLIN 01/14/2020 4 - Hives TAZOBACTAM 01/14/2020 4 - Hives CODEINE 05/11/2017 5 - Intolerance 14 - Other: See Comments Comments: nightmares Date Reviewed: 09/19/2024 Reviewed by: Kate Woods MA - Fully Assessed Prescriptions as of 09/23/2024 - clomiPHENe (CLOMID) 50 mg tablet Take 1 tablet by mouth every other day. - sildenafil (REVATIO) 20 mg tablet TAKE 1 TABLET BY MOUTH DIRECTED (may take up to 5 (FIVE) TABLETS 1 (ONE) hour prior to sexual activity) - baclofen 20 mg tablet Take 2 tablets by mouth two times a day. - diazePAM (VALIUM) 2 mg tablet Take 1 tablet twice daily and 2 tablets at bedtime - tiZANidine (ZANAFLEX) 4 mg tablet Take 2 tablets by mouth every 6 hours as needed. - XARELTO 20 mg tablet Take 1 tablet by mouth once daily. Patient should start on July 22, 2024. - hydrOXYzine pamoate (VISTARIL) 25 mg capsule Take 1 capsule by mouth three times a day as needed for itching/rash or anxiety. - albuterol (PROVENTIL) 2.5 mg /3 mL (0.083 %) nebulizer solution Use 3 mL via nebulizer every 6 hours as needed for wheezing/shortness of breath. - ondansetron orally disintegrating (ZOFRAN ODT) 4 mg disintegrating tablet Take 1 tablet by mouth every 8 hours as needed for nausea/vomiting. - montelukast (SINGULAIR) 10 mg tablet Take 1 tablet by mouth daily at bedtime. - fluticasone (FLONASE) 50 mcg/actuation nasal spray Use 2 Sprays in each nostril two times a day. Rinse mouth after use. - morphine SR (MS CONTIN, ORAMORPH SR) 15 mg 12 hr tablet Take 1 tablet by mouth every 12 hours for 5 days. - acetaminophen (TYLENOL EXTRA STRENGTH) 500 mg tablet Take 2 tablets by mouth every 6 hours as needed for pain. - Pregabalin (LYRICA) 200 mg capsule Take 200 mg by mouth twice daily. - lidocaine (XYLOCAINE) 5 % ointment Apply to affected area as needed. Facility-Administered Medications as of 09/23/2024 - ondansetron (PF) 4 mg injection (ZOFRAN) [facility] CNOVon 09-19-2024 CNOV [facility] [id number] 09-16-2024 [id number] [facility] CNTHERAPYon 09-16-2024 CNTHERAPY [facility] THERAPY NTon 09-16-2024 THERAPY NT [facility] CNOVon 09-03-2024 CNOV [facility] No Panel Informationon 09-03 IMPRESSION: Minimal bilateral acromioclavicular joint degenerative changes. [employer]: [email or web address] Transcribe Date/Time: Sep 03 2024 11:04A Dictated by : HOLLIE FELDMAN MD This examination was interpreted and the report reviewed and electronically signed by: HOLLIE FELDMAN MD on Sep 03 2024 11:05AM EST DIVISION OF RADIOLOGY Radiology Study observation (narrative) [facility] No Panel InformationOrdered By: Ccf Provider on 09-03-2024 [facility] XR SHLDR >/=3V AP/JEAN AP/OTH R LTon 09-03-2024 XR SHLDR >/=3V AP/JEAN AP/OTHR LT Normal [facility] XR SHLDR >/=3V AP/JEAN AP/OTH R RTon 09-03-2024 XR SHLDR >/=3V AP/JEAN AP/OTHR RT Normal [facility] XR Shoulder - left 3 Viewson 09-03-2024 * * *Final Report* * * DATE OF EXAM: Sep 03 2024 10:45AM M2X 5252 - XR SHLDR >/=3V AP/JEAN AP/OTHR LT / PROCEDURE REASON: multiple diagnoses * * * * Physician Interpretation * * * * EXAMINATION / TECHNIQUE: XR SHLDR >/=3V AP/JEAN AP/OTHR RT, XR SHLDR >/=3V AP/JEAN AP/OTHR LT PATIENT/TECHNOLOGIST PROVIDED HISTORY: chronic right shoulder CLINICAL INFORMATION ( PROVIDED BY ORDERING CLINICIAN) : Pain of both shoulder joints Pain of both shoulder joints COMPARISON: 04/20/2016 RESULT: No acute fracture or dislocation. Minimal bilateral acromioclavicular joint subchondral degenerative changes glenohumeral joints are within normal limits. Acromiohumeral intervals are preserved on both sides. DIVISION OF RADIOLOGY Provider, [facility] - 09/03/2024 * * *Final Report* * * DATE OF EXAM: Sep 03 2024 10:45AM M2X 5252 - XR SHLDR >/=3V AP/JEAN AP/OTHR LT / PROCEDURE REASON: multiple diagnoses * * * * Physician Interpretation * * * * EXAMINATION / TECHNIQUE: XR SHLDR >/=3V AP/JEAN AP/OTHR RT, XR SHLDR >/=3V AP/JEAN AP/OTHR LT PATIENT/TECHNOLOGIST PROVIDED HISTORY: chronic right shoulder CLINICAL INFORMATION ( PROVIDED BY ORDERING CLINICIAN) : Pain of both shoulder joints Pain of both shoulder joints COMPARISON: 04/20/2016 RESULT: No acute fracture or dislocation. Minimal bilateral acromioclavicular joint subchondral degenerative changes glenohumeral joints are within normal limits. Acromiohumeral intervals are preserved on both sides. IMPRESSION IMPRESSION: Minimal bilateral acromioclavicular joint degenerative changes. [employer]: [email or web address] Transcribe Date/Time: Sep 03 2024 11:04A Dictated by : HOLLIE FELDMAN MD This examination was interpreted and the report reviewed and electronically signed by: HOLLIE FELDMAN MD on Sep 03 2024 11:05AM EST [facility] XR Shoulder - right 3 Viewso n 09-03-2024 * * *Final Report* * * DATE OF EXAM: Sep 03 2024 10:45AM M2X 5253 - XR SHLDR >/=3V AP/JEAN AP/OTHR RT / PROCEDURE REASON: multiple diagnoses * * * * Physician Interpretation * * * * EXAMINATION / TECHNIQUE: XR SHLDR >/=3V AP/JEAN AP/OTHR RT, XR SHLDR >/=3V AP/JEAN AP/OTHR LT PATIENT/TECHNOLOGIST PROVIDED HISTORY: chronic right shoulder CLINICAL INFORMATION ( PROVIDED BY ORDERING CLINICIAN) : Pain of both shoulder joints Pain of both shoulder joints COMPARISON: 04/20/2016 RESULT: No acute fracture or dislocation. Minimal bilateral acromioclavicular joint subchondral degenerative changes glenohumeral joints are within normal limits. Acromiohumeral intervals are preserved on both sides. DIVISION OF RADIOLOGY Provider, [facility] - 09/03/2024 * * *Final Report* * * DATE OF EXAM: Sep 03 2024 10:45AM M2X 5253 - XR SHLDR >/=3V AP/JEAN AP/OTHR RT / PROCEDURE REASON: multiple diagnoses * * * * Physician Interpretation * * * * EXAMINATION / TECHNIQUE: XR SHLDR >/=3V AP/JEAN AP/OTHR RT, XR SHLDR >/=3V AP/JEAN AP/OTHR LT PATIENT/TECHNOLOGIST PROVIDED HISTORY: chronic right shoulder CLINICAL INFORMATION ( PROVIDED BY ORDERING CLINICIAN) : Pain of both shoulder joints Pain of both shoulder joints COMPARISON: 04/20/2016 RESULT: No acute fracture or dislocation. Minimal bilateral acromioclavicular joint subchondral degenerative changes glenohumeral joints are within normal limits. Acromiohumeral intervals are preserved on both sides. IMPRESSION IMPRESSION: Minimal bilateral acromioclavicular joint degenerative changes. [employer]: [email or web address] Transcribe Date/Time: Sep 03 2024 11:04A Dictated by : HOLLIE FELDMAN MD This examination was interpreted and the report reviewed and electronically signed by: HOLLIE FELDMAN MD on Sep 03 2024 11:05AM EST [facility] CNOVon 08-25-2024 CNOV Normal [facility] CNOVon 08-05-2024 CNOV Normal [facility] CNPNon 08-05-2024 CNPN Normal [facility] CNPNon 08-04-2024 CNPN Normal [facility] CNPNon 07-28-2024 CNPN Normal [facility] CNPNon 07-25-2024 CNPN Normal [facility] CNOVon 07-24-2024 CNOV Normal [facility] CNPNon 07-22-2024 CNPN Normal [facility] ALLIED HEALTHon 07-17-2024 ALLIED HEALTH Normal [facility] CASE MANAGEMon 07-17-2024 CASE MANAGEM Normal [facility] CBC W Auto Differential pane l (Bld)on 07-17-2024 Basophils (Bld) [#/Vol] 0.03 10*3/uL Normal <0.11 [facility] Comment on above: Order Comment: Speci men Type: BLOOD SPECIMENOrdering Facility: [facility] Address: [address] [place] [address] Performed By: #### 5 7021-8 ####[facility] LABCLIA [id number] [place] [address] [place] Basophils/100 WBC (Bld) 0.4 % Normal [facility] Comment on above: Order Comment: Speci men Type: BLOOD SPECIMENOrdering Facility: [facility] Address: [address] [place] [address] Performed By: #### 5 7021-8 ####[facility] LABCLIA [id number] [place] [address] [place] Differential cell count method Nom (Bld) Auto Normal [facility] Comment on above: Order Comment: Speci men Type: BLOOD SPECIMENOrdering Facility: [facility] Address: [address] [place] [address] Performed By: #### 5 7021-8 ####[facility] LABCLIA [id number] [place] [address] [place] Eosinophils (Bld) [#/Vol] 0.16 10*3/uL Normal <0.46 [facility] Comment on above: Order Comment: Speci men Type: BLOOD SPECIMENOrdering Facility: [facility] Address: [address] [place] [address] Performed By: #### 5 7021-8 ####[facility] LABCLIA [id number] [place] [address] [place] Eosinophils/100 WBC (Bld) 2.4 % Normal [facility] Comment on above: Order Comment: Speci men Type: BLOOD SPECIMENOrdering Facility: [facility] Address: [address] [place] [address] Performed By: #### 5 7021-8 ####[facility] LABCLIA [id number] [place] [address] [place] Erythrocyte distribution width (RBC) [Ratio] 13.3 % Normal 11.5-15.0 [facility] Comment on above: Order Comment: Speci men Type: BLOOD SPECIMENOrdering Facility: [facility] Address: [address] [place] [address] Performed By: #### 5 7021-8 ####[facility] LABCLIA [id number] [place] [address] [place] Hematocrit (Bld) [Volume fraction] 42.3 % Normal 39.0-51.0 [facility] Comment on above: Order Comment: Speci men Type: BLOOD SPECIMENOrdering Facility: [facility] Address: [address] [place] [address] Performed By: #### 5 7021-8 ####[facility] LABCLIA [id number] [place] [address] [place] Hemoglobin (Bld) [Mass/Vol] 14.1 g/dL Normal 13.0-17.0 [facility] Comment on above: Order Comment: Speci men Type: BLOOD SPECIMENOrdering Facility: [facility] Address: [address] [place] [address] Performed By: #### 5 7021-8 ####[facility] LABCLIA [id number] [place] [address] [place] Immature granulocytes (Bld) [#/Vol] 0.08 10*3/uL Normal <0.10 [facility] Comment on above: Order Comment: Speci men Type: BLOOD SPECIMENOrdering Facility: [facility] Address: [address] [place] [address] Performed By: #### 5 7021-8 ####[facility] LABCLIA [id number] [place] [address] [place] Immature granulocytes/100 WBC (Bld) 1.2 % Normal [facility] Comment on above: Order Comment: Speci men Type: BLOOD SPECIMENOrdering Facility: [facility] Address: [address] [place] [address] Performed By: #### 5 7021-8 ####[facility] LABCLIA [id number] [place] [address] [place] Lymphocytes (Bld) [#/Vol] 1.97 10*3/uL Normal 1.00-4.00 [facility] Comment on above: Order Comment: Speci men Type: BLOOD SPECIMENOrdering Facility: [facility] Address: [address] [place] [address] Performed By: #### 5 7021-8 ####[facility] LABCLIA [id number] [place] [address] [place] Lymphocytes/100 WBC (Bld) 29.2 % Normal [facility] Comment on above: Order Comment: Speci men Type: BLOOD SPECIMENOrdering Facility: [facility] Address: [address] [place] [address] Performed By: #### 5 7021-8 ####[facility] LABIA [id number] [place] [address] [place] MCH (RBC) [Entitic mass] 30.3 pg Normal 26.0-34.0 [facility] Comment on above: Order Comment: Speci men Type: BLOOD SPECIMENOrdering Facility: [facility] Address: [address] [place] [address] Performed By: #### 5 7021-8 ####[facility] LABIA [id number] [place] [address] [place] MCHC (RBC) [Mass/Vol] 33.3 g/dL Normal 30.5-36.0 [facility] Comment on above: Order Comment: Speci men Type: BLOOD SPECIMENOrdering Facility: [facility] Address: [address] [place] [address] Performed By: #### 5 7021-8 ####[facility] LABIA [id number] [place] [address] [place] MCV (RBC) [Entitic vol] 91.0 fL Normal 80.0-100.0 [facility] Comment on above: Order Comment: Speci men Type: BLOOD SPECIMENOrdering Facility: [facility] Address: [address] [place] [address] Performed By: #### 5 7021-8 ####[facility] LABIA [id number] [place] [address] [place] Monocytes (Bld) [#/Vol] 0.52 10*3/uL Normal <0.87 [facility] Comment on above: Order Comment: Speci men Type: BLOOD SPECIMENOrdering Facility: [facility] Address: [address] [place] [address] Performed By: #### 5 7021-8 ####[facility] LABCLIA [id number] [place] [address] [place] Monocytes/100 WBC (Bld) 7.7 % Normal [facility] Comment on above: Order Comment: Speci men Type: BLOOD SPECIMENOrdering Facility: [facility] Address: [address] [place] [address] Performed By: #### 5 7021-8 ####[facility] LABCLIA [id number] [place] [address] [place] Neutrophils (Bld) [#/Vol] 3.98 10*3/uL Normal 1.45-7.50 [facility] Comment on above: Order Comment: Speci men Type: BLOOD SPECIMENOrdering Facility: [facility] Address: [address] [place] [address] Performed By: #### 5 7021-8 ####[facility] LABCLIA [id number] [place] [address] [place] Neutrophils/100 WBC (Bld) 59.1 % Normal [facility] Comment on above: Order Comment: Speci men Type: BLOOD SPECIMENOrdering Facility: [facility] Address: [address] [place] [address] Performed By: #### 5 7021-8 ####[facility] LABCLIA [id number] [place] [address] [place] Nucleated RBC (Bld) [#/Vol] 10*3/uL Normal <0.01 [facility] Comment on above: Order Comment: Speci men Type: BLOOD SPECIMENOrdering Facility: [facility] Address: [address] [place] [address] Performed By: #### 5 7021-8 ####[facility] LABCLIA [id number] [place] [address] [place] Nucleated RBC/100 WBC (Bld) [Ratio] 0.0 /100 WBC Normal [facility] Comment on above: Order Comment: Speci men Type: BLOOD SPECIMENOrdering Facility: [facility] Address: [address] [place] [address] Performed By: #### 5 7021-8 ####[facility] LABCLIA [id number] [place] [address] [place] Platelet mean volume (Bld) [Entitic vol] 10.7 fL Normal 9.0-12.7 [facility] Comment on above: Order Comment: Speci men Type: BLOOD SPECIMENOrdering Facility: [facility] Address: [address] [place] [address] Performed By: #### 5 7021-8 ####[facility] LABIA [id number] [place] [address] [place] Platelets (Bld) [#/Vol] 177 10*3/uL Normal 150-400 [facility] Comment on above: Order Comment: Speci men Type: BLOOD SPECIMENOrdering Facility: [facility] Address: [address] [place] [address] Performed By: #### 5 7021-8 ####[facility] LABCLIA [id number] [place] [address] [place] RBC (Bld) [#/Vol] 4.65 10*6/uL Normal 4.20-6.00 [facility] Comment on above: Order Comment: Speci men Type: BLOOD SPECIMENOrdering Facility: [facility] Address: [address] [place] [address] Performed By: #### 5 7021-8 ####[facility] LABCLIA [id number] [place] [address] [place] WBC (Bld) [#/Vol] 6.74 10*3/uL Normal 3.70-11.00 [facility] Comment on above: Order Comment: Speci men Type: BLOOD SPECIMENOrdering Facility: [facility] Address: [address] [place] [address] Performed By: #### 5 7021-8 ####[facility] LABCLIA [id number] [place] [address] [place] CNDSon 07-17-2024 CNDS Normal [facility] CONSULT PROGon 07-17-2024 CONSULT PROG Normal [facility] CONSULT PROG Normal [facility] CONSULT PROG Normal [facility] CONSULT PROG Normal [facility] Comprehensive metabolic 2000 panelon 07-17-2024 Albumin [Mass/Vol] 3.3 g/dL Low 3.9-4.9 [facility] Comment on above: Order Comment: Speci men Type: BLOOD SPECIMENOrdering Facility: [facility] Address: [address] [place] [address] Performed By: #### 2 4323-8 ####[facility] LABCLIA [id number] [place] [address] [place] ALP [Catalytic activity/Vol] 69 U/L Normal 38-113 [facility] Comment on above: Order Comment: Speci men Type: BLOOD SPECIMENOrdering Facility: [facility] Address: [address] [place] [address] Performed By: #### 2 4323-8 ####[facility] LABCLIA [id number] [place] [address] [place] ALT [Catalytic activity/Vol] 23 U/L Normal 10-54 [facility] Comment on above: Order Comment: Speci men Type: BLOOD SPECIMENOrdering Facility: [facility] Address: [address] [place] [address] Performed By: #### 2 4323-8 ####[facility] LABCLIA [id number] [place] [address] [place] Anion gap [Moles/Vol] 10 mmol/L Normal 8-15 [facility] Comment on above: Order Comment: Speci men Type: BLOOD SPECIMENOrdering Facility: [facility] Address: [address] [place] [address] Performed By: #### 2 4323-8 ####[facility] LABCLIA [id number] [place] [address] [place] AST [Catalytic activity/Vol] 16 U/L Normal 14-40 [facility] Comment on above: Order Comment: Speci men Type: BLOOD SPECIMENOrdering Facility: [facility] Address: [address] [place] [address] Performed By: #### 2 4323-8 ####[facility] LABCLIA [id number] [place] [address] [place] Bilirubin [Mass/Vol] 0.2 mg/dL Normal 0.2-1.3 [facility] Comment on above: Order Comment: Speci men Type: BLOOD SPECIMENOrdering Facility: [facility] Address: [address] [place] [address] Performed By: #### 2 4323-8 ####[facility] LABCLIA [id number] [place] [address] [place] Calcium [Mass/Vol] 8.7 mg/dL Normal 8.5-10.2 [facility] Comment on above: Order Comment: Speci men Type: BLOOD SPECIMENOrdering Facility: [facility] Address: [address] [place] [address] Performed By: #### 2 4323-8 ####[facility] LABCLIA [id number] [place] [address] [place] Chloride [Moles/Vol] 107 mmol/L Normal 98-107 [facility] Comment on above: Order Comment: Speci men Type: BLOOD SPECIMENOrdering Facility: [facility] Address: [address] [place] [address] Performed By: #### 2 4323-8 ####[facility] LABCLIA [id number] [place] [address] [place] CO2 [Moles/Vol] 25 mmol/L Normal 22-30 [facility] Comment on above: Order Comment: Speci men Type: BLOOD SPECIMENOrdering Facility: [facility] Address: [address] [place] [address] Performed By: #### 2 4323-8 ####[facility] LABIA [id number] [address] [place] Creatinine [Mass/Vol] 0.71 mg/dL Low 0.73-1.22 [facility] Comment on above: Order Comment: Speci men Type: BLOOD SPECIMENOrdering Facility: [facility] Address: [address] [place] [address] Performed By: #### 2 4323-8 ####[facility] LABIA [id number] [address] [place] Creatinine and Glomerular filtration rate.predicted panel (S/P/Bld) 120 mL/min/1.73m??? Normal >=60 [facility] Comment on above: Order Comment: Speci men Type: BLOOD SPECIMENOrdering Facility: [facility] Address: [address] [place] [address] Result Comment: Re mated Glomerular Filtration Rate (eGFR) is calculated using the 2020 CKD-EPI creatinine equation. This equation utilizes serum creatinine, sex, and age as parameters. The creatinine assay has traceable calibration to isotope dilution-mass spectrometry. Refer to KDIGO guidelines for clinical interpretation. In patients with unstable renal function, e.g. those with acute kidney injury, the eGFR may not accurately reflect actual GFR. Performed By: #### 2 4323-8 ####[facility] LABCLIA [id number] [place] [address] [place] Glucose [Mass/Vol] 85 mg/dL Normal 74-99 [facility] Comment on above: Order Comment: Speci men Type: BLOOD SPECIMENOrdering Facility: [facility] Address: [address] [place] [address] Result Comment: The [place] [employer] (ADA) provides guidance for cutoff values for fasting glucose and random glucose. The ADA defines fasting as no caloric intake for at least 8 hours. Fasting plasma glucose results between 100 to 125 mg/dL indicate increased risk for diabetes (prediabetes).Fasting plasma glucose results greater than or equal to 126 mg/dL meet the criteria for diagnosis of diabetes. In the absence of unequivocal hyperglycemia, results should be confirmed by repeat testing. In a patient with classic symptoms of hyperglycemia or hyperglycemic crisis, random plasma glucose results greater than or equal to 200 mg/dL meet the criteria for diagnosis of diabetes.Reference: Standards of Medical Care in Diabetes 2016, [place] [employer]. Diabetes Care. 2016.39(Suppl 1). Performed By: #### 2 4323-8 ####[facility] LABCLIA [id number] [place] [address] [place] Potassium [Moles/Vol] 4.1 mmol/L Normal 3.7-5.1 [facility] Comment on above: Order Comment: Speci men Type: BLOOD SPECIMENOrdering Facility: [facility] Address: [address] [place], [place] [address] Performed By: #### 2 4323-8 ####[facility] LABCLIA [id number] [place] [address] [place] Protein [Mass/Vol] 5.8 g/dL Low 6.3-8.0 [facility] Comment on above: Order Comment: Speci men Type: BLOOD SPECIMENOrdering Facility: [facility] Address: [address] [place], [place] [address] Performed By: #### 2 4323-8 ####[facility] LABCLIA [id number] [place] [address] [place] Sodium [Moles/Vol] 142 mmol/L Normal 136-144 [facility] Comment on above: Order Comment: Speci men Type: BLOOD SPECIMENOrdering Facility: [facility] Address: [address] [place] [address] Performed By: #### 2 4323-8 ####[facility] LABCLIA [id number] [place] [address] [place] Urea nitrogen [Mass/Vol] 13 mg/dL Normal 9-24 [facility] Comment on above: Order Comment: Speci men Type: BLOOD SPECIMENOrdering Facility: [facility] Address: [address] [place] [address] Performed By: #### 2 4323-8 ####[facility] LABCLIA [id number] [place] [address] [place] Vancomycin [place] SerPl-ncon 07-17-2024 Vancomycin random [Mass/Vol] 9.8 ug/mL Low 10.0-20.0 [facility] Comment on above: Order Comment: Speci men Type: BLOOD SPECIMENOrdering Facility: [facility] Address: [address] [place] [address] Result Comment: Refe rence ranges and high/low indicator flags are provided as general guidelines only. The treating physician must determine appropriate target levels/dosing based on the specific clinical situation. Performed By: #### 4 091-5 ####[facility] LABCLIA [id number] [place] [address] [place] CASE MANAGEMon 07-16-2024 CASE MANAGEM Normal [facility] CONSULT PROGon 07-16-2024 CONSULT PROG Normal [facility] CONSULT PROG Normal [facility] Comprehensive metabolic 2000 panelon 07-16-2024 Albumin [Mass/Vol] 3.3 g/dL Low 3.9-4.9 [facility] Comment on above: Order Comment: Speci men Type: BLOOD SPECIMENOrdering Facility: [facility] Address: [address] [place] [address] Performed By: #### 2 777-1, 87433-9 ####[facility] LABCLIA [id number] [place] [address] [place] ALP [Catalytic activity/Vol] 71 U/L Normal 38-113 [facility] Comment on above: Order Comment: Speci men Type: BLOOD SPECIMENOrdering Facility: [facility] Address: [address] [place] [address] Performed By: #### 2 777-1, 17394-0 ####[facility] LABCLIA [id number] [place] [address] [place] ALT [Catalytic activity/Vol] 17 U/L Normal 10-54 [facility] Comment on above: Order Comment: Speci men Type: BLOOD SPECIMENOrdering Facility: [facility] Address: [address] [place] [address] Performed By: #### 2 777-1, 47776-9 ####[facility] LABCLIA [id number] [place] [address] [place] Anion gap [Moles/Vol] 8 mmol/L Normal 8-15 [facility] Comment on above: Order Comment: Speci men Type: BLOOD SPECIMENOrdering Facility: [facility] Address: [address] [place] [address] Performed By: #### 2 777-1, 14171-3 ####[facility] LABCLIA [id number] [place] [id number] [place] AST [Catalytic activity/Vol] 12 U/L Low 14-40 [facility] Comment on above: Order Comment: Speci men Type: BLOOD SPECIMENOrdering Facility: [facility] Address: [address] [place] [address] Performed By: #### 2 777-1, 33794-8 ####[facility] LABCLIA [id number] [place] [id number] [place] Bilirubin [Mass/Vol] 0.3 mg/dL Normal 0.2-1.3 [facility] Comment on above: Order Comment: Speci men Type: BLOOD SPECIMENOrdering Facility: [facility] Address: [address] [place] [address] Performed By: #### 2 777-1, 85039-6 ####[facility] LABCLIA [id number] [place] [address] [place] Calcium [Mass/Vol] 8.3 mg/dL Low 8.5-10.2 [facility] Comment on above: Order Comment: Speci men Type: BLOOD SPECIMENOrdering Facility: [facility] Address: [address] [place] [address] Performed By: #### 2 777-1, 49109-0 ####[facility] LABCLIA [id number] [place] [address] [place] Chloride [Moles/Vol] 107 mmol/L Normal 98-107 [facility] Comment on above: Order Comment: Speci men Type: BLOOD SPECIMENOrdering Facility: [facility] Address: [address] [place] [address] Performed By: #### 2 777-1, 45748-3 ####[facility] LABCLIA [id number] [place] [address] [place] CO2 [Moles/Vol] 26 mmol/L Normal 22-30 [facility] Comment on above: Order Comment: Speci men Type: BLOOD SPECIMENOrdering Facility: [facility] Address: [address] [place] [address] Performed By: #### 2 777-1, 03653-6 ####[facility] LABCLIA [id number] [place] [address] [place] Creatinine [Mass/Vol] 0.69 mg/dL Low 0.73-1.22 [facility] Comment on above: Order Comment: Speci men Type: BLOOD SPECIMENOrdering Facility: [facility] Address: [address] [place] [address] Performed By: #### 2 777-1, 84460-4 ####[facility] LABIA [id number] [place] [address] [place] Creatinine and Glomerular filtration rate.predicted panel (S/P/Bld) 121 mL/min/1.73m??? Normal >=60 [facility] Comment on above: Order Comment: Augustina gary Type: BLOOD SPECIMENOrdering Facility: [facility] Address: [address] [place] [address] Result Comment: Re mated Glomerular Filtration Rate (eGFR) is calculated using the 2020 CKD-EPI creatinine equation. This equation utilizes serum creatinine, sex, and age as parameters. The creatinine assay has traceable calibration to isotope dilution-mass spectrometry. Refer to KDIGO guidelines for clinical interpretation. In patients with unstable renal function, e.g. those with acute kidney injury, the eGFR may not accurately reflect actual GFR. Performed By: #### 2 777-1, 33795-8 ####[facility] LABIA [id number] [place] [address] [place] Glucose [Mass/Vol] 88 mg/dL Normal 74-99 [facility] Comment on above: Order Comment: Augustina gary Type: BLOOD SPECIMENOrdering Facility: [facility] Address: [address] [place] [address] Result Comment: The [place] [employer] (ADA) provides guidance for cutoff values for fasting glucose and random glucose. The ADA defines fasting as no caloric intake for at least 8 hours. Fasting plasma glucose results between 100 to 125 mg/dL indicate increased risk for diabetes (prediabetes).Fasting plasma glucose results greater than or equal to 126 mg/dL meet the criteria for diagnosis of diabetes. In the absence of unequivocal hyperglycemia, results should be confirmed by repeat testing. In a patient with classic symptoms of hyperglycemia or hyperglycemic crisis, random plasma glucose results greater than or equal to 200 mg/dL meet the criteria for diagnosis of diabetes.Reference: Standards of Medical Care in Diabetes 2016, [place] [employer]. Diabetes Care. 2016.39(Suppl 1). Performed By: #### 2 777-1, 06202-8 ####[facility] LABCLIA [id number] [address] [address] [place] Potassium [Moles/Vol] 4.6 mmol/L Normal 3.7-5.1 [facility] Comment on above: Order Comment: Speci men Type: BLOOD SPECIMENOrdering Facility: [facility] Address: [address] [place] [address] Performed By: #### 2 777-1, 68269-9 ####[facility] LABCLIA [id number] [place] [address] [place] Protein [Mass/Vol] 5.8 g/dL Low 6.3-8.0 [facility] Comment on above: Order Comment: Speci men Type: BLOOD SPECIMENOrdering Facility: [facility] Address: [address] [place] [address] Performed By: #### 2 777-1, 99276-6 ####[facility] LABCLIA [id number] [place] [address] [place] Sodium [Moles/Vol] 141 mmol/L Normal 136-144 [facility] Comment on above: Order Comment: Speci men Type: BLOOD SPECIMENOrdering Facility: [facility] Address: [address] [place] [address] Performed By: #### 2 777-1, 16140-4 ####[facility] LABCLIA [id number] [address] [address] [place] Urea nitrogen [Mass/Vol] 11 mg/dL Normal 9-24 [facility] Comment on above: Order Comment: Speci men Type: BLOOD SPECIMENOrdering Facility: [facility] Address: [address] [place], [place] [address] Performed By: #### 2 777-1, 06150-9 ####[facility] LABCLIA [id number] [place] [id number] [place] Phosphate SerPl-mCncon 07-16 Phosphate [Mass/Vol] 3.1 mg/dL Normal 2.7-4.8 [facility] Comment on above: Order Comment: Speci men Type: BLOOD SPECIMENOrdering Facility: [facility] Address: [address] [place] [address] Performed By: #### 2 777-1, 38656-2 ####[facility] LABCLIA [id number] [place] [address] [place] ANES POSTPROC EVALon 025 ANES POSTPROC EVAL Normal [facility] ANES PRE-OPon 07-15-2024 ANES PRE-OP Normal [facility] BRIEF OP NOTon 07-15-2024 BRIEF OP NOT Normal [facility] Bacteria Spec Anaerobe Culto n 07-15-2024 Bacteria identified Anaer cx Nom (Unsp spec) Negative Normal [facility] Comment on above: Performed By: #### 6 35-3, 580-1, 6462-6 ####[facility] LABCLIA [id number] [place] [address] [place] Bacteria Wnd Culton 07-15-19 25 Bacteria identified Cx Nom (Wound) CULTURE, INTRAOPERATIVE HARDWARE: No growth GRAM STAIN: No organisms seen No Polymorphonuclear Leukocytes Normal [facility] Comment on above: Performed By: #### 6 462-6 ####[facility] LABCLIA [id number] [place] [address] [place]#### 74930-1 ####[facility] LABCLIA [id number] [place] [address] [place] Bacteria identified Cx Nom (Wound) Abnormal [facility] Comment on above: Performed By: #### 6 35-3, 580-1, 6462-6 ####[facility] LABCLIA [id number] [address] [address] [place] CASE MANAGEMon 07-15-2024 CASE MANAGEM Normal [facility] CONSULT PROGon 07-15-2024 CONSULT PROG Normal [facility] Fungus Spec Culton Fungus identified Cx Nom (Unsp spec) CULTURE, FUNGAL: No Fungus isolated after 10 days Normal [facility] Comment on above: Performed By: #### 6 35-3, 580-1, 6462-6 ####[facility] LABCLIA [id number] [place] [address] [place] Microorganism Spec Culton Microorganism identified Cx Nom (Unsp spec) CULTURE, FUNGAL: No Fungus isolated after 28 days FUNGAL SMEAR: No fungus seen Normal [facility] Comment on above: Performed By: #### 6 462-6 ####[facility] LABCLIA [id number] [place] [address] [place]#### 10294-0 ####[facility] LABCLIA [id number] [place] [id number] [place] OPERATIVE NOon 07-15-2024 OPERATIVE NO Normal [facility] Bacteria Wnd Culton 07-14-19 25 Bacteria identified Cx Nom (Wound) ORGANISM ID: 1 Few enteric luis feilpe GRAM STAIN: Rare Gram positive cocci Rare Polymorphonuclear leukocytes Abnormal [facility] Comment on above: Performed By: #### 6 462-6 ####[facility] LABCLIA [id number] [address] [address] [place] CASE MGT INIT ASSESon 2024 CASE MGT INIT ASSES Normal [facility] CONSULTon 07-14-2024 CONSULT Normal [facility] CONSULT Normal [facility] CONSULT PROGon 07-14-2024 CONSULT PROG Normal [facility] US LEG VEIN DVT BINA VAS LABo n 07-14-2024 US LEG VEIN DVT BINA VAS LAB Normal [facility] Urinalysis complete panel (U )on 07-14-2024 Bacteria LM.HPF (Urine sed) [#/Area] Negative Normal Negative [facility] Comment on above: Order Comment: Speci men Type: URINE SPECIMENOrdering Facility: [facility] Address: [address] [place] [address] Performed By: #### 2 4356-8 ####[facility] LABCLIA [id number] [place] [address] [place] Bilirubin Ql (U) Negative Normal Negative [facility] Comment on above: Order Comment: Speci men Type: URINE SPECIMENOrdering Facility: [facility] Address: [address] [place] [address] Performed By: #### 2 4356-8 ####[facility] LABCLIA [id number] [place] [address] [place] Clarity (Unsp spec) Clear Normal Clear [facility] Comment on above: Order Comment: Speci men Type: URINE SPECIMENOrdering Facility: [facility] Address: [address] [place] [address] Performed By: #### 2 4356-8 ####[facility] LABCLIA [id number] [place] [address] [place] Color (U) Dark Yellow Abnormal Yellow [facility] Comment on above: Order Comment: Speci men Type: URINE SPECIMENOrdering Facility: [facility] Address: [address] [place] [address] Performed By: #### 2 4356-8 ####[facility] LABCLIA [id number] [place] [address] [place] Epithelial cells LM.HPF (Urine sed) [#/Area] None Seen Normal [facility] Comment on above: Order Comment: Speci men Type: URINE SPECIMENOrdering Facility: [facility] Address: [address] [place] [address] Performed By: #### 2 4356-8 ####[facility] LABCLIA [id number] [place] [address] [place] Glucose Test strip (U) [Mass/Vol] Negative Normal Negative [facility] Comment on above: Order Comment: Speci men Type: URINE SPECIMENOrdering Facility: [facility] Address: [address] [place] [address] Performed By: #### 2 4356-8 ####[facility] LABCLIA [id number] [place] [address] [place] Hemoglobin Ql (U) Negative Normal Negative [facility] Comment on above: Order Comment: Speci men Type: URINE SPECIMENOrdering Facility: [facility] Address: [address] [place] [address] Performed By: #### 2 4356-8 ####[facility] LABCLIA [id number] [place] [address] [place] Hyaline casts (Urine sed) [#/Area] 0 /[LPF] Normal 0 /LPF [facility] Comment on above: Order Comment: Speci men Type: URINE SPECIMENOrdering Facility: [facility] Address: [address] [place] [address] Performed By: #### 2 4356-8 ####[facility] LABCLIA [id number] [place] [address] [place] Ketones Ql (U) Trace Abnormal Negative [facility] Comment on above: Order Comment: Speci men Type: URINE SPECIMENOrdering Facility: [facility] Address: [address] [place] [address] Performed By: #### 2 4356-8 ####[facility] LABCLIA [id number] [place] [address] [place] Leukocyte esterase Test strip Ql (U) Negative Normal Negative [facility] Comment on above: Order Comment: Speci men Type: URINE SPECIMENOrdering Facility: [facility] Address: [address] [place] [address] Performed By: #### 2 4356-8 ####[facility] LABCLIA [id number] [place] [address] [place] Nitrite Ql (U) Negative Normal Negative [facility] Comment on above: Order Comment: Speci men Type: URINE SPECIMENOrdering Facility: [facility] Address: [address] [place] [address] Performed By: #### 2 4356-8 ####[facility] LABCLIA [id number] [place] [address] [place] pH (U) 6.0 [pH] Normal <8.5 [facility] Comment on above: Order Comment: Speci men Type: URINE SPECIMENOrdering Facility: [facility] Address: [address] [place] [address] Performed By: #### 2 4356-8 ####[facility] LABCLIA [id number] [place] [address] [place] Protein (U) [Mass/Vol] Trace Abnormal Negative Cl [facility] Comment on above: Order Comment: Speci men Type: URINE SPECIMENOrdering Facility: [facility] Address: [address] [place] [address] Performed By: #### 2 4356-8 ####[facility] LABCLIA [id number] [place] [address] [place] RBC LM.HPF (Urine sed) [#/Area] 3-5 /HPF Abnormal 0-2 /HPF [facility] Comment on above: Order Comment: Speci men Type: URINE SPECIMENOrdering Facility: [facility] Address: [address] [place] [address] Performed By: #### 2 4356-8 ####[facility] LABCLIA [id number] [place] [address] [place] Specific gravity (U) [Rel density] 1.032 High 1.005-1.03 0 [facility] Comment on above: Order Comment: Speci men Type: URINE SPECIMENOrdering Facility: [facility] Address: [address] [place] [address] Performed By: #### 2 4356-8 ####[facility] LABCLIA [id number] [place] [address] [place] Urobilinogen Ql (U) 1.0 EU/dL Normal 0.2-1.0 EU/dL [facility] Comment on above: Order Comment: Speci men Type: URINE SPECIMENOrdering Facility: [facility] Address: [address] [place] [address] Performed By: #### 2 4356-8 ####[facility] LABCLIA [id number] [place] [address] [place] WBC LM.HPF (Urine sed) [#/Area] 0-5 /HPF Normal 0-5 /HPF [facility] Comment on above: Order Comment: Speci men Type: URINE SPECIMENOrdering Facility: [facility] Address: [address] [place] [address] Performed By: #### 2 4356-8 ####[facility] LABCLIA [id number] [place] [address] [place] Bacteria Bld Culton 07-13-19 25 Bacteria identified Cx Nom (Bld) CULTURE, BLOOD: No growth 5 days Normal [facility] Comment on above: Performed By: #### 6 00-7 ####[facility] LABCLIA [id number] [place] [address] [place] Bacteria identified Cx Nom (Bld) CULTURE, BLOOD: No growth 5 days Normal [facility] Comment on above: Performed By: #### 6 00-7 ####[facility] LABCLIA [id number] [place] [id number] [place] CBC W Auto Differential pane l (Bld)on 07-13-2024 Basophils (Bld) [#/Vol] 0.04 10*3/uL Normal <0.11 [facility] Comment on above: Order Comment: Speci men Type: BLOOD SPECIMENOrdering Facility: [facility] Address: [address] [place] [address] Performed By: #### 5 7021-8, 4537-7 ####[facility] LABCLIA [id number] [place] [address] [place] Basophils/100 WBC (Bld) 0.4 % Normal [facility] Comment on above: Order Comment: Speci men Type: BLOOD SPECIMENOrdering Facility: [facility] Address: [address] [place] [address] Performed By: #### 5 7021-8, 4537-7 ####[facility] LABCLIA [id number] [place] [address] [place] Differential cell count method Nom (Bld) Auto Normal [facility] Comment on above: Order Comment: Speci men Type: BLOOD SPECIMENOrdering Facility: [facility] Address: [address] [place] [address] Performed By: #### 5 7021-8, 4537-7 ####[facility] LABCLIA [id number] [place] [address] [place] Eosinophils (Bld) [#/Vol] 0.13 10*3/uL Normal <0.46 [facility] Comment on above: Order Comment: Speci men Type: BLOOD SPECIMENOrdering Facility: [facility] Address: [address] [place] [address] Performed By: #### 5 7021-8, 4537-7 ####[facility] LABCLIA [id number] [place] [address] [place] Eosinophils/100 WBC (Bld) 1.2 % Normal [facility] Comment on above: Order Comment: Speci men Type: BLOOD SPECIMENOrdering Facility: [facility] Address: [address] [place] [address] Performed By: #### 5 7021-8, 4536-7 ####[facility] LABIA [id number] [place] [address] [place] Erythrocyte distribution width (RBC) [Ratio] 13.2 % Normal 11.5-15.0 [facility] Comment on above: Order Comment: Speci men Type: BLOOD SPECIMENOrdering Facility: [facility] Address: [address] [place] [address] Performed By: #### 5 7021-8, 4536-7 ####[facility] LABCLIA [id number] [place] [address] [place] Hematocrit (Bld) [Volume fraction] 45.9 % Normal 39.0-51.0 [facility] Comment on above: Order Comment: Speci men Type: BLOOD SPECIMENOrdering Facility: [facility] Address: [address] [place] [address] Performed By: #### 5 7021-8, 4536-7 ####[facility] LABIA [id number] [place] [address] [place] Hemoglobin (Bld) [Mass/Vol] 15.7 g/dL Normal 13.0-17.0 [facility] Comment on above: Order Comment: Speci men Type: BLOOD SPECIMENOrdering Facility: [facility] Address: [address] [place] [address] Performed By: #### 5 7021-8, 4536-7 ####[facility] LABCLIA [id number] [place] [address] [place] Immature granulocytes (Bld) [#/Vol] 0.04 10*3/uL Normal <0.10 [facility] Comment on above: Order Comment: Speci men Type: BLOOD SPECIMENOrdering Facility: [facility] Address: [address] [place] [address] Performed By: #### 5 7021-8, 4536-7 ####[facility] LABCLIA [id number] [place] [address] [place] Immature granulocytes/100 WBC (Bld) 0.4 % Normal [facility] Comment on above: Order Comment: Speci men Type: BLOOD SPECIMENOrdering Facility: [facility] Address: [address] [place] [address] Performed By: #### 5 7021-8, 4536-7 ####[facility] LABCLIA [id number] [place] [address] [place] Lymphocytes (Bld) [#/Vol] 2.40 10*3/uL Normal 1.00-4.00 [facility] Comment on above: Order Comment: Speci men Type: BLOOD SPECIMENOrdering Facility: [facility] Address: [address] [place] [address] Performed By: #### 5 7021-8, 7 ####[facility] LABCLIA [id number] [place] [address] [place] Lymphocytes/100 WBC (Bld) 21.7 % Normal [facility] Comment on above: Order Comment: Speci men Type: BLOOD SPECIMENOrdering Facility: [facility] [facility] Address: [address] [place] [address] Performed By: #### 5 7021-8, 7 ####[facility] LABCLIA [id number] [place] [address] [place] MCH (RBC) [Entitic mass] 31.0 pg Normal 26.0-34.0 [facility] Comment on above: Order Comment: Speci men Type: BLOOD SPECIMENOrdering Facility: [facility] Address: [address] [place] [address] Performed By: #### 5 7021-8, 4536-7 ####[facility] LABCLIA [id number] [place] [address] [place] MCHC (RBC) [Mass/Vol] 34.2 g/dL Normal 30.5-36.0 [facility] Comment on above: Order Comment: Speci men Type: BLOOD SPECIMENOrdering Facility: [facility] Address: [address] [place] [address] Performed By: #### 5 7021-8, 7 ####[facility] LABIA [id number] [place] [address] [place] MCV (RBC) [Entitic vol] 90.5 fL Normal 80.0-100.0 [facility] Comment on above: Order Comment: Speci men Type: BLOOD SPECIMENOrdering Facility: [facility] Address: [address] [place] [address] Performed By: #### 5 7021-8, 7 ####[facility]ITAL[facility] [id number] [place] [address] [place] Monocytes (Bld) [#/Vol] 0.56 10*3/uL Normal <0.87 [facility] Comment on above: Order Comment: Speci men Type: BLOOD SPECIMENOrdering Facility: [facility] Address: [address] [place] [address] Performed By: #### 5 7021-8, 7 ####[facility] LABIA [id number] [place] [address] [place] Monocytes/100 WBC (Bld) 5.1 % Normal [facility] Comment on above: Order Comment: Speci men Type: BLOOD SPECIMENOrdering Facility: [facility] Address: [address] [place] [address] Performed By: #### 5 7021-8, 4536-7 ####[facility] LABIA [id number] [place] [address] [place] Neutrophils (Bld) [#/Vol] 7.90 10*3/uL High 1.45-7.50 [facility] Comment on above: Order Comment: Speci men Type: BLOOD SPECIMENOrdering Facility: [facility] Address: [address] [place] [address] Performed By: #### 5 7021-8, 7-7 ####[facility] LABCLIA [id number] [place] [address] [place] Neutrophils/100 WBC (Bld) 71.2 % Normal [facility] Comment on above: Order Comment: Speci men Type: BLOOD SPECIMENOrdering Facility: [facility] Address: [address] [place] [address] Performed By: #### 5 7021-8, 4536-7 ####[facility] LABCLIA [id number] [place] [address] [place] Nucleated RBC (Bld) [#/Vol] 10*3/uL Normal <0.01 [facility] Comment on above: Order Comment: Speci men Type: BLOOD SPECIMENOrdering Facility: [facility] Address: [address] [place] [address] Performed By: #### 5 7021-8, 4536-7 ####[facility] LABIA [id number] [place] [address] [place] Nucleated RBC/100 WBC (Bld) [Ratio] 0.0 /100 WBC Normal [facility] Comment on above: Order Comment: Speci men Type: BLOOD SPECIMENOrdering Facility: [facility] Address: [address] [place] [address] Performed By: #### 5 7021-8, 4536-7 ####[facility] LABCLIA [id number] [place] [address] [place] Platelet mean volume (Bld) [Entitic vol] 11.0 fL Normal 9.0-12.7 [facility] Comment on above: Order Comment: Speci men Type: BLOOD SPECIMENOrdering Facility: [facility] Address: [address] [place] [address] Performed By: #### 5 7021-8, 4537-7 ####[facility] LABCLIA [id number] [place] [address] [place] Platelets (Bld) [#/Vol] 173 10*3/uL Normal 150-400 [facility] Comment on above: Order Comment: Speci men Type: BLOOD SPECIMENOrdering Facility: [facility] Address: [address] [place] [address] Performed By: #### 5 7021-8, 4537-7 ####[facility] LABCLIA [id number] [place] [address] [place] RBC (Bld) [#/Vol] 5.07 10*6/uL Normal 4.20-6.00 [facility] Comment on above: Order Comment: Speci men Type: BLOOD SPECIMENOrdering Facility: [facility] Address: [address] [place] [address] Performed By: #### 5 7021-8, 4537-7 ####[facility] LABCLIA [id number] [place] [address] [place] WBC (Bld) [#/Vol] 11.07 10*3/uL High 3.70-11.00 [facility] Comment on above: Order Comment: Speci men Type: BLOOD SPECIMENOrdering Facility: [facility] Address: [address] [place] [address] Performed By: #### 5 7021-8, 4537-7 ####[facility] LABCLIA [id number] [place] [address] [place] CONSULT PROGon 07-13-2024 CONSULT PROG Normal [facility] CRP SerPl-mCncon 07-13-2024 CRP [Mass/Vol] 0.7 mg/dL Normal <0.9 [facility] Comment on above: Order Comment: Speci men Type: BLOOD SPECIMENOrdering Facility: [facility] Address: [address] [place] [address] Performed By: #### 2 4328, 1987-10, 2776-06, ####[facility] LABCLIA [id number] [facility] [place] [id number] [place] Comprehensive metabolic 2000 panelon 07-13-2024 Albumin [Mass/Vol] 4.0 g/dL Normal 3.9-4.9 [facility] Comment on above: Order Comment: Speci men Type: BLOOD SPECIMENOrdering Facility: [facility] Address: [address] [place] [address] Performed By: #### 2 4328, 1987-10, 2776-06, ####[facility] LABCLIA [id number] [facility] [place] [address] [place] ALP [Catalytic activity/Vol] 79 U/L Normal 38-113 [facility] Comment on above: Order Comment: Speci men Type: BLOOD SPECIMENOrdering Facility: [facility] Address: [address] [place] [address] Performed By: #### 2 4323-8, 1987-10, 2776-06, ####[facility] LABCLIA [id number] [facility] [place] [id number] [place] ALT [Catalytic activity/Vol] 23 U/L Normal 10-54 [facility] Comment on above: Order Comment: Speci men Type: BLOOD SPECIMENOrdering Facility: [facility] Address: [address] [place] [address] Performed By: #### 2 4323-8, 1987-10, 2776-06, ####[facility] LABCLIA [id number] [facility] [place] [id number] [place] Anion gap [Moles/Vol] 10 mmol/L Normal 8-15 [facility] Comment on above: Order Comment: Speci men Type: BLOOD SPECIMENOrdering Facility: [facility] Address: [facility] [place] [address] Performed By: #### 2 4328, 1987-10, 2776-06, ####[facility] LABCLIA [id number] [address] [address] [place] AST [Catalytic activity/Vol] 17 U/L Normal 14-40 [facility] Comment on above: Order Comment: Speci men Type: BLOOD SPECIMENOrdering Facility: [facility] Address: [address] [place] [address] [place] [address] Performed By: #### 2 4328, 1987-10, 2776-06, ####[facility] LABCLIA [id number] [place] [address] [place] Bilirubin [Mass/Vol] 0.4 mg/dL Normal 0.2-1.3 [facility] Comment on above: Order Comment: Speci men Type: BLOOD SPECIMENOrdering Facility: [facility] Address: [facility] [place] [id number] Performed By: #### 2 4328, 1987-10, 2776-06, ####[facility] LABCLIA [id number] [address] [address] [place] Calcium [Mass/Vol] 9.0 mg/dL Normal 8.5-10.2 [facility] Comment on above: Order Comment: Speci men Type: BLOOD SPECIMENOrdering Facility: [facility] Address: [facility] [place] [address] Performed By: #### 2 432-8, 1987-10, 2776-06, ####[facility] LABCLIA [id number] [address] [address] [place] Chloride [Moles/Vol] 103 mmol/L Normal 98-107 [facility] Comment on above: Order Comment: Speci men Type: BLOOD SPECIMENOrdering Facility: [facility] Address: [address] [place], [place] [address] Performed By: #### 2 432-8, 1987-10, 2776-06, ####[facility] LABCLIA [id number] [place] [id number] [place] CO2 [Moles/Vol] 27 mmol/L Normal 22-30 [facility] Comment on above: Order Comment: Speci men Type: BLOOD SPECIMENOrdering Facility: [facility] Address: [address] [place] [address] Performed By: #### 2 432-8, 1987-10, 2776-06, ####[facility] LABCLIA [id number] [place] [id number] [place] Creatinine [Mass/Vol] 0.66 mg/dL Low 0.73-1.22 [facility] Comment on above: Order Comment: Speci men Type: BLOOD SPECIMENOrdering Facility: [facility] Address: [address] [place] [address] Performed By: #### 2 432-8, 1987-10, 2776-06, ####[facility] LABCLIA [id number] [place] [id number] [place] Creatinine and Glomerular filtration rate.predicted panel (S/P/Bld) 122 mL/min/1.73m??? Normal >=60 [facility] Comment on above: Order Comment: Speci men Type: BLOOD SPECIMENOrdering Facility: [facility] Address: [address] [place], [place] [address] Result Comment: Re mated Glomerular Filtration Rate (eGFR) is calculated using the 2020 CKD-EPI creatinine equation. This equation utilizes serum creatinine, sex, and age as parameters. The creatinine assay has traceable calibration to isotope dilution-mass spectrometry. Refer to KDIGO guidelines for clinical interpretation. In patients with unstable renal function, e.g. those with acute kidney injury, the eGFR may not accurately reflect actual GFR. Performed By: #### 2 4323-01, 1987-10, 2776-06, ####[facility] LABCLIA [id number] [address] [address] [place] Glucose [Mass/Vol] 83 mg/dL Normal 74-99 [facility] Comment on above: Order Comment: Augustina gary Type: BLOOD SPECIMENOrdering Facility: [facility] Address: [address] [place] [address] Result Comment: The [place] [employer] (ADA) provides guidance for cutoff values for fasting glucose and random glucose. The ADA defines fasting as no caloric intake for at least 8 hours. Fasting plasma glucose results between 100 to 125 mg/dL indicate increased risk for diabetes (prediabetes).Fasting plasma glucose results greater than or equal to 126 mg/dL meet the criteria for diagnosis of diabetes. In the absence of unequivocal hyperglycemia, results should be confirmed by repeat testing. In a patient with classic symptoms of hyperglycemia or hyperglycemic crisis, random plasma glucose results greater than or equal to 200 mg/dL meet the criteria for diagnosis of diabetes.Reference: Standards of Medical Care in Diabetes 2016, [place] [employer]. Diabetes Care. 2016.39(Suppl 1). Performed By: #### 2 4323-01, 1987-10, 2776-06, ####[facility] LABCLIA [id number] [address] [address] [place] Potassium [Moles/Vol] 3.8 mmol/L Normal 3.7-5.1 [facility] Comment on above: Order Comment: Augustina gary Type: BLOOD SPECIMENOrdering Facility: [facility] Address: [address] [place] [address] Performed By: #### 2 43208-23, 1987-10, 2776-06, ####[facility] LABCLIA [id number] [address] [address] [place] Protein [Mass/Vol] 6.9 g/dL Normal 6.3-8.0 [facility] Comment on above: Order Comment: Speci men Type: BLOOD SPECIMENOrdering Facility: [facility] Address: [address] [place], [place] [address] Performed By: #### 2 432-8, 1987-10, 2776-06, ####[facility] LABCLIA [id number] [place] [address] [place] Sodium [Moles/Vol] 140 mmol/L Normal 136-144 [facility] Comment on above: Order Comment: Speci men Type: BLOOD SPECIMENOrdering Facility: [facility] Address: [address] [place] [address] Performed By: #### 2 432-8, 1987-10, 2776-06, ####[facility] LABCLIA [id number] [place] [address] [place] Urea nitrogen [Mass/Vol] 10 mg/dL Normal 9-24 [facility] Comment on above: Order Comment: Speci men Type: BLOOD SPECIMENOrdering Facility: [facility] Address: [address] [place] [address] Performed By: #### 2 432-8, 1987-10, 2776-06, ####[facility] LABCLIA [id number] [place] [id number] [place] ECG COMPLETEon 07-13-2024 ECG COMPLETE Normal [facility] ESR Westergren method (Bld) [Velocity]on 07-13-2024 ESR (Bld) [Velocity] 10 mm/h Normal 0-15 [facility] Comment on above: Order Comment: Speci men Type: BLOOD SPECIMENOrdering Facility: [facility] Address: [address] [place] [address] Performed By: #### 5 7021-8, 4537-7 ####[facility] LABCLIA [id number] [place] [id number] [place] Magnesium SerPl-mCncon 07-13 Magnesium [Mass/Vol] 1.7 mg/dL Normal 1.7-2.3 [facility] Comment on above: Order Comment: Speci men Type: BLOOD SPECIMENOrdering Facility: [facility] Address: [address] [place] [address] Performed By: #### 2 4323-8, 1987-10, 2776-06, ####[facility] LABCLIA [id number] [place] [address] [place] Phosphate SerPl-mCncon 07-13 Phosphate [Mass/Vol] 2.6 mg/dL Low 2.7-4.8 [facility] Comment on above: Order Comment: Speci men Type: BLOOD SPECIMENOrdering Facility: [facility] Address: [address] [place] [address] Performed By: #### 2 4323-8, 1987-10, 2776-06, ####[facility] LABIA [id number] [place] [address] [place] STAPHYLOCOCCUS AUREUS AND MR SA SCREEN, PCR, NASALon 07-13-2024 S. aureus and MRSA panel PAUL+probe (Nose) Not detected Normal Not Detected [facility] Comment on above: Order Comment: Speci men Type: SWABOrdering Facility: [facility] Address: [address] [place] [address] Performed By: #### S APCR ####[facility] LABIA [id number] [place] [id number] [place] XR CHEST 1V FRONTAL PORTon 0 07-13-2024 XR CHEST 1V FRONTAL PORT Normal [facility] CNOVon 07-11-2024 CNOV Normal [facility] CNPNon 07-10-2024 CNPN Normal [facility] Bacteria Ur Culton Bacteria identified Cx Nom (U) ORGANISM ID: 1 <10,000 CFU/ml Klebsiella pneumoniae Insignificant colony count. No further workup. Normal [facility] Comment on above: Performed By: #### 2 4356-8, 630-4 ####[facility] LABCLIA [id number] [address] [address] [place] Basic metabolic 2000 panelon 07-09-2024 Anion gap [Moles/Vol] 13 mmol/L Normal 8-15 [facility] Comment on above: Order Comment: Speci men Type: BLOOD SPECIMENOrdering Facility: [facility] Address: [address] [place] [address] Performed By: #### 2 986-8, 78269-0 ####[facility] LABCLIA [id number] [place] [address] [place] Calcium [Mass/Vol] 9.0 mg/dL Normal 8.5-10.2 [facility] Comment on above: Order Comment: Speci men Type: BLOOD SPECIMENOrdering Facility: [facility] Address: [address] [place] [address] Performed By: #### 2 986-8, 77364-4 ####[facility] LABCLIA [id number] [place] [id number] [place] Chloride [Moles/Vol] 100 mmol/L Normal 98-107 [facility] Comment on above: Order Comment: Speci men Type: BLOOD SPECIMENOrdering Facility: [facility] Address: [address] [place] [id number] Performed By: #### 2 986-8, 21544-7 ####[facility] LABCLIA [id number] [place] [id number] [place] CO2 [Moles/Vol] 25 mmol/L Normal 22-30 [facility] Comment on above: Order Comment: Speci men Type: BLOOD SPECIMENOrdering Facility: [facility] Address: [address] [place] [id number] Performed By: #### 2 986-8, 65570-2 ####[facility] LABIA [id number] [place] [id number] [place] Creatinine [Mass/Vol] 0.64 mg/dL Low 0.73-1.22 [facility] Comment on above: Order Comment: Speci men Type: BLOOD SPECIMENOrdering Facility: [facility] Address: [address] [place] [address] Performed By: #### 2 986-8, 14857-1 ####[facility] LABIA [id number] [place] [address] [place] Creatinine and Glomerular filtration rate.predicted panel (S/P/Bld) 123 mL/min/1.73m??? Normal >=60 [facility] Comment on above: Order Comment: [facility] Type: BLOOD SPECIMENOrdering Facility: [facility] Address: [address] [place] [address] Result Comment: Re mated Glomerular Filtration Rate (eGFR) is calculated using the 2020 CKD-EPI creatinine equation. This equation utilizes serum creatinine, sex, and age as parameters. The creatinine assay has traceable calibration to isotope dilution-mass spectrometry. Refer to KDIGO guidelines for clinical interpretation. In patients with unstable renal function, e.g. those with acute kidney injury, the eGFR may not accurately reflect actual GFR. Performed By: #### 2 986-8, 62986-0 ####[facility] LABIA [id number] [place] [address] [place] Glucose [Mass/Vol] 77 mg/dL Normal 74-99 [facility] Comment on above: Order Comment: Speci men Type: BLOOD SPECIMENOrdering Facility: [facility] Address: [address] [place] [address] Result Comment: The [place] [employer] (ADA) provides guidance for cutoff values for fasting glucose and random glucose. The ADA defines fasting as no caloric intake for at least 8 hours. Fasting plasma glucose results between 100 to 125 mg/dL indicate increased risk for diabetes (prediabetes).Fasting plasma glucose results greater than or equal to 126 mg/dL meet the criteria for diagnosis of diabetes. In the absence of unequivocal hyperglycemia, results should be confirmed by repeat testing. In a patient with classic symptoms of hyperglycemia or hyperglycemic crisis, random plasma glucose results greater than or equal to 200 mg/dL meet the criteria for diagnosis of diabetes.Reference: Standards of Medical Care in Diabetes 2016, [place] [employer]. Diabetes Care. 2016.39(Suppl 1). Performed By: #### 2 986-8, 53067-0 ####[facility] LABCLIA [id number] [place] [address] [place] Potassium [Moles/Vol] 4.2 mmol/L Normal 3.7-5.1 [facility] Comment on above: Order Comment: Speci men Type: BLOOD SPECIMENOrdering Facility: [facility] Address: [address] [place] [address] Performed By: #### 2 986-8, 33942-8 ####[facility] LABIA [id number] [place] [address] [place] Sodium [Moles/Vol] 138 mmol/L Normal 136-144 [facility] Comment on above: Order Comment: [employer] Type: BLOOD SPECIMENOrdering Facility: [facility] Address: [address] [place] [address] Performed By: #### 2 986-8, 22221-9 ####[facility] LABIA [id number] [place] [address] [place] Urea nitrogen [Mass/Vol] 9 mg/dL Normal 9-24 [facility] Comment on above: Order Comment: Speci men Type: BLOOD SPECIMENOrdering Facility: [facility] Address: [address] [place] [address] Performed By: #### 2 986-8, 19638-9 ####[facility] LABCLIA [id number] [place] [id number] [place] CBC panel Auto (Bld)on 07-09 Erythrocyte distribution width (RBC) [Ratio] 13.5 % Normal 11.5-15.0 [facility] Comment on above: Order Comment: Speci men Type: BLOOD SPECIMENOrdering Facility: [facility] Address: [address] [place] [address] Performed By: #### 5 8410-2 ####[facility] LABCLIA [id number] [place] [address] [place] Hematocrit (Bld) [Volume fraction] 48.7 % Normal 39.0-51.0 [facility] Comment on above: Order Comment: Speci men Type: BLOOD SPECIMENOrdering Facility: [facility] Address: [address] [place] [address] Performed By: #### 5 8410-2 ####[facility] LABCLIA [id number] [place] [address] [place] Hemoglobin (Bld) [Mass/Vol] 16.9 g/dL Normal 13.0-17.0 [facility] Comment on above: Order Comment: Speci men Type: BLOOD SPECIMENOrdering Facility: [facility] Address: [address] [place] [address] Performed By: #### 5 8410-2 ####[facility] LABCLIA [id number] [place] [address] [place] MCH (RBC) [Entitic mass] 31.7 pg Normal 26.0-34.0 [facility] Comment on above: Order Comment: Speci men Type: BLOOD SPECIMENOrdering Facility: [facility] Address: [address] [place] [address] Performed By: #### 5 8410-2 ####[facility] LABCLIA [id number] [place] [address] [place] MCHC (RBC) [Mass/Vol] 34.7 g/dL Normal 30.5-36.0 [facility] Comment on above: Order Comment: Speci men Type: BLOOD SPECIMENOrdering Facility: [facility] Address: [address] [place] [address] Performed By: #### 5 8410-2 ####[facility] LABCLIA [id number] [place] [address] [place] MCV (RBC) [Entitic vol] 91.4 fL Normal 80.0-100.0 [facility] Comment on above: Order Comment: Speci men Type: BLOOD SPECIMENOrdering Facility: [facility] Address: [address] [place] [address] Performed By: #### 5 8410-2 ####[facility] LABCLIA [id number] [place] [address] [place] Nucleated RBC (Bld) [#/Vol] 10*3/uL Normal <0.01 [facility] Comment on above: Order Comment: Speci men Type: BLOOD SPECIMENOrdering Facility: [facility] Address: [address] [place] [address] Performed By: #### 5 8410-2 ####[facility] LABCLIA [id number] [place] [address] [place] Platelet mean volume (Bld) [Entitic vol] 11.1 fL Normal 9.0-12.7 [facility] Comment on above: Order Comment: Speci men Type: BLOOD SPECIMENOrdering Facility: [facility] Address: [address] [place] [address] Performed By: #### 5 8410-2 ####[facility] LABCLIA [id number] [place] [address] [place] Platelets (Bld) [#/Vol] 155 10*3/uL Normal 150-400 [facility] Comment on above: Order Comment: Speci men Type: BLOOD SPECIMENOrdering Facility: [facility] Address: [address] [place] [address] Performed By: #### 5 8410-2 ####[facility] LABCLIA [id number] [place] [address] [place] RBC (Bld) [#/Vol] 5.33 10*6/uL Normal 4.20-6.00 [facility] Comment on above: Order Comment: Speci men Type: BLOOD SPECIMENOrdering Facility: [facility] Address: [address] [place] [address] Performed By: #### 5 8410-2 ####[facility] [id number] [place] [address] [place] WBC (Bld) [#/Vol] 7.53 10*3/uL Normal 3.70-11.00 [facility] Comment on above: Order Comment: Speci men Type: BLOOD SPECIMENOrdering Facility: [facility] Address: [address] [place] [address] Performed By: #### 5 8410-2 ####[facility] [id number] [place] [address] [place] CNOVon 07-09-2024 CNOV Normal [facility] CNPNon 07-09-2024 CNPN Normal [facility] HISTORY PHYSICALon HISTORY PHYSICAL Normal [facility] PSA SerPl-mCncon 07-09-2024 Prostate specific Ag [Mass/Vol] 0.95 ng/mL Normal <2.60 [facility] Comment on above: Order Comment: Speci men Type: BLOOD SPECIMENOrdering Facility: [facility] Address: [address] [place] [address] Result Comment: Tota l PSA test methodology used is the Electrochemiluminescence Immunoassay by [employer]. Total PSA values by differing methodologies cannot be interchanged. Performed By: #### 2 857-1 ####[facility] LABIA [id number] [place] [address] [place] PT panel Coag (PPP)on 2024 INR Coag (PPP) [Relative time] 1.1 {INR} Normal 0.9-1.3 [facility] Comment on above: Order Comment: Augustina gary Type: BLOOD SPECIMENOrdering Facility: [facility] Address: [address] [place] [address] Result Comment: Alesha min K Antagonist (VKA) Therapeutic Range: INR 2 to 3 (Target INR of 2.5)Note: For patients treated with VKA drugs, such as warfarin, the [place] [employer] 2012 Guideline recommends a therapeutic INR range of 2 to 3 (target INR of 2.5). This recommendation includes high-risk patients with antiphospholipid syndrome with previous arterial or venous thromboembolism, current-generation mechanical or bioprosthetic aortic heart valve replacement.Note: Patients with mechanical aortic valve replacement and additional risk factors for thromboembolic events (atrial fibrillation, previous thromboembolism, LV dysfunction, hypercoagulable conditions) or an older generation mechanical AVR (i.e., ball in-Cage) or any mechanical MVR should have a INR therapeutic range of 2.5 to 3.5 (target INR of 3).Jacobo GH, et al. Chest 2012, 141:7S-47SNishimura RA, et al. [facility] 2017, 70: 252-289 Performed By: #### 3 4528-0, 07154-2 ####[facility] LABIA [id number] [place] [address] [place] PT Coag (PPP) [Time] 11.6 s Normal 9.7-13.0 [facility] Comment on above: Order Comment: Augustina gary Type: BLOOD SPECIMENOrdering Facility: [facility] Address: [address] [place] [address] Performed By: #### 3 4528-0, 03733-2 ####[facility] LABIA [id number] [place] [address] [place] STAPHYLOCOCCUS AUREUS AND MR SA SCREEN, PCR, NASALon 07-09-2024 S. aureus and MRSA panel PAUL+probe (Nose) Not detected Normal Not Detected [facility] Comment on above: Order Comment: Augustina gary Type: SWABOrdering Facility: [facility] Address: [address] [place] [address] Performed By: #### S APCR ####[facility] LABCLIA [id number] [address] [place] TYPE AND SCREEN,30 DAYon ABO O Normal [facility] Comment on above: Order Comment: Speci men Type: BLOOD SPECIMENOrdering Facility: [facility] Address: [address] [place] [address] Result Comment: Devan ected result: Previously reported as Invalid on 07/10/2024 at 11:31 AM EST. Performed By: #### T SCR30 ####[facility] [id number] [address] [place] Rh Nom (Bld) Positive Normal [facility] Comment on above: Order Comment: Speci men Type: BLOOD SPECIMENOrdering Facility: [facility] Address: [address] [place] [address] Result Comment: Devan ected result: Previously reported as Invalid on 07/10/2024 at 11:31 AM EST. Performed By: #### T SCR30 ####[facility] [id number] [address] [place] Testost SerPl-mCncon 025 Testosterone [Mass/Vol] 247 ng/dL Normal 193-824 [facility] Comment on above: Order Comment: Speci men Type: BLOOD SPECIMENOrdering Facility: [facility] Address: [address] [place] [address] Result Comment: A te stosterone level in the 193-320 ng/dL range with associated clinical symptoms is considered low and may indicate hypogonadism (from NEJM 2010 363:123-135). Results >320 ng/dL are considered normal. Performed By: #### 2 986-8, 44713-1 ####[facility] LABCLIA [id number] [place] [address] [place] Urinalysis complete panel (U )on 07-09-2024 Bacteria LM.HPF (Urine sed) [#/Area] Negative Normal Negative [facility] Comment on above: Order Comment: Speci men Type: URINE SPECIMENOrdering Facility: [facility] Address: [address] [place] [address] Performed By: #### 2 4356-8, 630-4 ####[facility] LABCLIA [id number] [place] [address] [place] Bilirubin Ql (U) Negative Normal Negative [facility] Comment on above: Order Comment: Speci men Type: URINE SPECIMENOrdering Facility: [facility] Address: [address] [place] [address] Performed By: #### 2 4356-8, 630-4 ####[facility] LABCLIA [id number] [place] [address] [place] Clarity (Unsp spec) Clear Normal Clear [facility] Comment on above: Order Comment: Speci men Type: URINE SPECIMENOrdering Facility: [facility] Address: [address] [place] [address] Performed By: #### 2 4356-8, 630-4 ####[facility] LABCLIA [id number] [place] [address] [place] Color (U) Yellow Normal Yellow [facility] Comment on above: Order Comment: Speci men Type: URINE SPECIMENOrdering Facility: [facility] Address: [address] [place] [address] Performed By: #### 2 4356-8, 630-4 ####[facility] LABCLIA [id number] [place] [address] [place] Epithelial cells LM.HPF (Urine sed) [#/Area] None Seen Normal [facility] Comment on above: Order Comment: Speci men Type: URINE SPECIMENOrdering Facility: [facility] Address: [address] [place] [address] Performed By: #### 2 4356-8, 630-4 ####[facility] LABCLIA [id number] [place] [address] [place] Glucose Test strip (U) [Mass/Vol] Negative Normal Negative [facility] Comment on above: Order Comment: Speci men Type: URINE SPECIMENOrdering Facility: [facility] Address: [address] [place] [address] Performed By: #### 2 4356-8, 630-4 ####[facility] LABCLIA [id number] [place] [address] [place] Hemoglobin Ql (U) Negative Normal Negative [facility] Comment on above: Order Comment: Speci men Type: URINE SPECIMENOrdering Facility: [facility] Address: [address] [place] [address] Performed By: #### 2 4356-8, 630-4 ####[facility] LABCLIA [id number] [place] [address] [place] Hyaline casts (Urine sed) [#/Area] 0 /[LPF] Normal 0 /LPF [facility] Comment on above: Order Comment: Speci men Type: URINE SPECIMENOrdering Facility: [facility] Address: [address] [place] [address] Performed By: #### 2 4356-8, 630-4 ####[facility] LABCLIA [id number] [place] [address] [place] Ketones Ql (U) Negative Normal Negative [facility] Comment on above: Order Comment: Speci men Type: URINE SPECIMENOrdering Facility: [facility] Address: [address] [place] [address] Performed By: #### 2 4356-8, 630-4 ####[facility] LABCLIA [id number] [place] [address] [place] Leukocyte esterase Test strip Ql (U) 1+ Abnormal Negative [facility] Comment on above: Order Comment: Speci men Type: URINE SPECIMENOrdering Facility: [facility] Address: [address] [place] [address] Performed By: #### 2 4356-8, 630-4 ####[facility] LABCLIA [id number] [place] [address] [place] Nitrite Ql (U) Negative Normal Negative [facility] Comment on above: Order Comment: Speci men Type: URINE SPECIMENOrdering Facility: [facility] Address: [address] [place] [address] Performed By: #### 2 4356-8, 630-4 ####[facility] LABCLIA [id number] [place] [address] [place] pH (U) 7.5 [pH] Normal <8.5 [facility] Comment on above: Order Comment: Speci men Type: URINE SPECIMENOrdering Facility: [facility] Address: [address] [place] [address] Performed By: #### 2 4356-8, 630-4 ####[facility] LABCLIA [id number] [place] [address] [place] Protein (U) [Mass/Vol] Negative Normal Negative Cl [facility] Comment on above: Order Comment: Speci men Type: URINE SPECIMENOrdering Facility: [facility] Address: [address] [place] [address] Performed By: #### 2 4356-8, 630-4 ####[facility] LABCLIA [id number] [place] [address] [place] RBC LM.HPF (Urine sed) [#/Area] 0-2 /HPF Normal 0-2 /HPF [facility] Comment on above: Order Comment: Speci men Type: URINE SPECIMENOrdering Facility: [facility] Address: [address] [place] [address] Performed By: #### 2 4356-8, 630-4 ####[facility] LABIA [id number] [place] [address] [place] Specific gravity (U) [Rel density] 1.016 Normal 1.005-1.03 0 [facility] Comment on above: Order Comment: Speci men Type: URINE SPECIMENOrdering Facility: [facility] Address: [address] [place] [address] Performed By: #### 2 4356-8, 630-4 ####[facility] LABIA [id number] [place] [address] [place] Urobilinogen Ql (U) 0.2 EU/dL Normal 0.2-1.0 EU/dL [facility] Comment on above: Order Comment: Speci men Type: URINE SPECIMENOrdering Facility: [facility] Address: [address] [place] [address] Performed By: #### 2 4356-8, 630-4 ####[facility] LABIA [id number] [place] [address] [place] WBC LM.HPF (Urine sed) [#/Area] /[HPF] Abnormal 0-5 /HPF [facility] Comment on above: Order Comment: Speci men Type: URINE SPECIMENOrdering Facility: [facility] Address: [address] [place] [address] Performed By: #### 2 4356-8, 630-4 ####[facility] LABIA [id number] [place] [address] [place] aPTT PPPon 07-09-2024 aPTT Coag (PPP) [Time] 38.2 s High 23.0-32.4 [facility] Comment on above: Order Comment: Speci men Type: BLOOD SPECIMENOrdering Facility: [facility] Address: [address] [place] [address] Performed By: #### 3 4528-0, 95328-9 ####[facility] LABCLIA [id number] [address] [address] [place] CNOVon 07-08-2024 CNOV Normal [facility] CNPNon 07-04-2024 CNPN Normal [facility] CNOVon 06-30-2024 CNOV Normal [facility] CNOVon 06-26-2024 CNOV Normal [facility] CNPNon 06-25-2024 CNPN Normal [facility] CNOVon 06-23-2024 CNOV Normal [facility] CNOVon 06-20-2024 CNOV Normal [facility] CNPNon 06-17-2024 CNPN Normal [facility] Basic metabolic 2000 panelon 06-16-2024 Anion gap [Moles/Vol] 10 mmol/L Normal 8-15 [facility] Comment on above: Order Comment: Speci men Type: BLOOD SPECIMENOrdering Facility: [facility] Address: [address] [place] [address] Performed By: #### 2 4320-07, 1987-10 ####[facility] LABIA [id number] [place] [address] [place] Calcium [Mass/Vol] 8.9 mg/dL Normal 8.5-10.2 [facility] Comment on above: Order Comment: Speci men Type: BLOOD SPECIMENOrdering Facility: [facility] Address: [address] [place], [place] [address] Performed By: #### 2 4320-07, 1987-10 ####[facility] LABCLIA [id number] [place] [address] [place] Chloride [Moles/Vol] 101 mmol/L Normal 98-107 [facility] Comment on above: Order Comment: Speci men Type: BLOOD SPECIMENOrdering Facility: [facility] Address: [address] [place], [place] [address] Performed By: #### 2 4320-07, 1987-10 ####[facility] LABCLIA [id number] [place] [address] [place] CO2 [Moles/Vol] 28 mmol/L Normal 22-30 [facility] Comment on above: Order Comment: Speci men Type: BLOOD SPECIMENOrdering Facility: [facility] Address: [address] [place] [address] Performed By: #### 2 4320-07, 1987-10 ####[facility] LABCLIA [id number] [address] [place] Creatinine [Mass/Vol] 0.78 mg/dL Normal 0.73-1.22 [facility] Comment on above: Order Comment: Speci men Type: BLOOD SPECIMENOrdering Facility: [facility] Address: [address] [place] [address] Performed By: #### 2 4320-07, 1987-10 ####[facility] LABIA [id number] [address] [place] Creatinine and Glomerular filtration rate.predicted panel (S/P/Bld) 116 mL/min/1.73m??? Normal >=60 [facility] Comment on above: Order Comment: Speci men Type: BLOOD SPECIMENOrdering Facility: [facility] Address: [address] [place] [address] Result Comment: Re mated Glomerular Filtration Rate (eGFR) is calculated using the 2020 CKD-EPI creatinine equation. This equation utilizes serum creatinine, sex, and age as parameters. The creatinine assay has traceable calibration to isotope dilution-mass spectrometry. Refer to KDIGO guidelines for clinical interpretation. In patients with unstable renal function, e.g. those with acute kidney injury, the eGFR may not accurately reflect actual GFR. Performed By: #### 2 4320-07, 1987-10 ####[facility] LABIA [id number] [place] [address] [place] Glucose [Mass/Vol] 84 mg/dL Normal 74-99 [facility] Comment on above: Order Comment: Speci men Type: BLOOD SPECIMENOrdering Facility: [facility] Address: [address] [place] [address] Result Comment: The [place] [employer] (ADA) provides guidance for cutoff values for fasting glucose and random glucose. The ADA defines fasting as no caloric intake for at least 8 hours. Fasting plasma glucose results between 100 to 125 mg/dL indicate increased risk for diabetes (prediabetes).Fasting plasma glucose results greater than or equal to 126 mg/dL meet the criteria for diagnosis of diabetes. In the absence of unequivocal hyperglycemia, results should be confirmed by repeat testing. In a patient with classic symptoms of hyperglycemia or hyperglycemic crisis, random plasma glucose results greater than or equal to 200 mg/dL meet the criteria for diagnosis of diabetes.Reference: Standards of Medical Care in Diabetes 2016, [place] [employer]. Diabetes Care. 2016.39(Suppl 1). Performed By: #### 2 4320-07, 1987-10 ####[facility] LABCLIA [id number] [place] [address] [place] Potassium [Moles/Vol] 4.4 mmol/L Normal 3.7-5.1 [facility] Comment on above: Order Comment: Speci men Type: BLOOD SPECIMENOrdering Facility: [facility] Address: [address] [place] [address] Performed By: #### 2 4320-07, 1987-10 ####[facility] LABCLIA [id number] [place] [address] [place] Sodium [Moles/Vol] 139 mmol/L Normal 136-144 [facility] Comment on above: Order Comment: Speci men Type: BLOOD SPECIMENOrdering Facility: [facility] Address: [address] [id number] Performed By: #### 2 4320-07, 1987-10 ####[facility] LABCLIA [id number] [place] [address] [place] Urea nitrogen [Mass/Vol] 9 mg/dL Normal 9-24 [facility] Comment on above: Order Comment: Speci men Type: BLOOD SPECIMENOrdering Facility: [facility] Address: [address] [place] [address] Performed By: #### 2 4321-2, 1987-10 ####[facility] LABCLIA [id number] [place] [address] [place] CBC W Auto Differential pane l (Bld)on 06-16-2024 Basophils (Bld) [#/Vol] 10*3/uL Normal <0.11 [facility] Comment on above: Order Comment: Speci men Type: BLOOD SPECIMENOrdering Facility: [facility] Address: [address] [place] [address] Performed By: #### 4 537-7, 73166-2 ####[facility] LABCLIA [id number] [place] [address] [place] Basophils/100 WBC (Bld) 0.4 % Normal [facility] Comment on above: Order Comment: Speci men Type: BLOOD SPECIMENOrdering Facility: [facility] Address: [address] [place] [address] Performed By: #### 4 537-7, 97383-1 ####[facility] LABCLIA [id number] [place] [address] [place] Differential cell count method Nom (Bld) Auto Normal [facility] Comment on above: Order Comment: Speci men Type: BLOOD SPECIMENOrdering Facility: [facility] Address: [address] [place] [address] Performed By: #### 4 537-7, 60669-4 ####[facility] LABCLIA [id number] [place] [address] [place] Eosinophils (Bld) [#/Vol] 0.06 10*3/uL Normal <0.46 [facility] Comment on above: Order Comment: Speci men Type: BLOOD SPECIMENOrdering Facility: [facility] Address: [address] [place] [address] Performed By: #### 4 537-7, 48977-9 ####[facility] LABCLIA [id number] [place] [address] [place] Eosinophils/100 WBC (Bld) 1.1 % Normal [facility] Comment on above: Order Comment: Speci men Type: BLOOD SPECIMENOrdering Facility: [facility] Address: [address] [place] [address] Performed By: #### 4 537-7, 08373-8 ####[facility] LABCLIA [id number] [place] [address] [place] Erythrocyte distribution width (RBC) [Ratio] 14.1 % Normal 11.5-15.0 [facility] Comment on above: Order Comment: Speci men Type: BLOOD SPECIMENOrdering Facility: [facility] Address: [address] [place] [address] Performed By: #### 4 537-7, 30548-2 ####[facility] LABIA [id number] [place] [address] [place] Hematocrit (Bld) [Volume fraction] 48.4 % Normal 39.0-51.0 [facility] Comment on above: Order Comment: Speci men Type: BLOOD SPECIMENOrdering Facility: [facility] Address: [address] [place] [address] Performed By: #### 4 537-7, 93058-6 ####[facility]CLIA [id number] [place] [address] [place] Hemoglobin (Bld) [Mass/Vol] 16.0 g/dL Normal 13.0-17.0 [facility] Comment on above: Order Comment: Speci men Type: BLOOD SPECIMENOrdering Facility: [facility] Address: [address] [place] [address] Performed By: #### 4 537-7, 82085-6 ####[facility] LABCLIA [id number] [address] [place] Immature granulocytes (Bld) [#/Vol] 0.04 10*3/uL Normal <0.10 [facility] Comment on above: Order Comment: Speci men Type: BLOOD SPECIMENOrdering Facility: [facility] Address: [address] [place] [address] Performed By: #### 4 537-7, 13330-2 ####[facility] LABCLIA [id number] [place] [address] [place] Immature granulocytes/100 WBC (Bld) 0.7 % Normal [facility] Comment on above: Order Comment: Speci men Type: BLOOD SPECIMENOrdering Facility: [facility] Address: [address] [place] [address] Performed By: #### 4 537-7, 92821-5 ####[facility] LABCLIA [id number] [place] [address] [place] Lymphocytes (Bld) [#/Vol] 1.16 10*3/uL Normal 1.00-4.00 [facility] Comment on above: Order Comment: Speci men Type: BLOOD SPECIMENOrdering Facility: [facility] Address: [address] [place] [address] Performed By: #### 4 537-7, 17324-9 ####[facility]CLIA [id number] [place] [address] [place] Lymphocytes/100 WBC (Bld) 21.3 % Normal [facility] Comment on above: Order Comment: Speci men Type: BLOOD SPECIMENOrdering Facility: [facility] Address: [address] [place] [address] Performed By: #### 4 537-7, 27928-4 ####[facility] LABCLIA [id number] [place] [address] [place] MCH (RBC) [Entitic mass] 31.4 pg Normal 26.0-34.0 [facility] Comment on above: Order Comment: Speci men Type: BLOOD SPECIMENOrdering Facility: [facility] Address: [address] [place] [address] Performed By: #### 4 537-7, 96113-1 ####[facility]CLIA [id number] [place] [address] [place] MCHC (RBC) [Mass/Vol] 33.1 g/dL Normal 30.5-36.0 [facility] Comment on above: Order Comment: Speci men Type: BLOOD SPECIMENOrdering Facility: [facility] Address: [address] [place] [address] Performed By: #### 4 537-7, 95855-7 ####[facility] LABCLIA [id number] [place] [address] [place] MCV (RBC) [Entitic vol] 94.9 fL Normal 80.0-100.0 [facility] Comment on above: Order Comment: Speci men Type: BLOOD SPECIMENOrdering Facility: [facility] Address: [address] [place] [address] Performed By: #### 4 537-7, 16416-0 ####[facility] LABIA [id number] [place] [address] [place] Monocytes (Bld) [#/Vol] 0.44 10*3/uL Normal <0.87 [facility] Comment on above: Order Comment: Speci men Type: BLOOD SPECIMENOrdering Facility: [facility] Address: [address] [place] [address] Performed By: #### 4 537-7, 70823-3 ####[facility] LABIA [id number] [place] [address] [place] Monocytes/100 WBC (Bld) 8.1 % Normal [facility] Comment on above: Order Comment: Speci men Type: BLOOD SPECIMENOrdering Facility: [facility] Address: [address] [place] [address] Performed By: #### 4 537-7, 85569-5 ####[facility] LABCLIA [id number] [place] [address] [place] Neutrophils (Bld) [#/Vol] 3.73 10*3/uL Normal 1.45-7.50 [facility] Comment on above: Order Comment: Speci men Type: BLOOD SPECIMENOrdering Facility: [facility] Address: [address] [place] [address] Performed By: #### 4 537-7, 10712-2 ####[facility] LABCLIA [id number] [place] [address] [place] Neutrophils/100 WBC (Bld) 68.4 % Normal [facility] Comment on above: Order Comment: Speci men Type: BLOOD SPECIMENOrdering Facility: [facility] Address: [address] [place] [address] Performed By: #### 4 537-7, 80985-4 ####[facility] LABCLIA [id number] [place] [address] [place] Nucleated RBC (Bld) [#/Vol] 10*3/uL Normal <0.01 [facility] Comment on above: Order Comment: Speci men Type: BLOOD SPECIMENOrdering Facility: [facility] Address: [address] [place] [address] Performed By: #### 4 537-7, 71039-8 ####[facility] LABCLIA [id number] [place] [id number] [place] Nucleated RBC/100 WBC (Bld) [Ratio] 0.0 /100 WBC Normal [facility] Comment on above: Order Comment: Speci men Type: BLOOD SPECIMENOrdering Facility: [facility] Address: [address] [place] [address] Performed By: #### 4 537-7, 78243-4 ####[facility] LABCLIA [id number] [place] [address] [place] Platelet mean volume (Bld) [Entitic vol] 10.9 fL Normal 9.0-12.7 [facility] Comment on above: Order Comment: Speci men Type: BLOOD SPECIMENOrdering Facility: [facility] Address: [address] [place] [address] Performed By: #### 4 537-7, 95075-6 ####[facility] LABIA [id number] [place] [address] [place] Platelets (Bld) [#/Vol] 149 10*3/uL Low 150-400 [facility] Comment on above: Order Comment: Speci men Type: BLOOD SPECIMENOrdering Facility: [facility] Address: [address] [place] [address] Performed By: #### 4 537-7, 15691-3 ####[facility] [id number] [place] [address] [place] RBC (Bld) [#/Vol] 5.10 10*6/uL Normal 4.20-6.00 [facility] Comment on above: Order Comment: Speci men Type: BLOOD SPECIMENOrdering Facility: [facility] Address: [address] [place] [address] Performed By: #### 4 537-7, 58445-1 ####[facility] LABIA [id number] [place] [address] [place] WBC (Bld) [#/Vol] 5.45 10*3/uL Normal 3.70-11.00 [facility] Comment on above: Order Comment: Speci men Type: BLOOD SPECIMENOrdering Facility: [facility] Address: [address] [place] [address] Performed By: #### 4 537-7, 46009-2 ####[facility] LABIA [id number] [place] [id number] [place] CNOVon 06-16-2024 CNOV Normal [facility] CRP SerPl-mCncon 06-16-2024 CRP [Mass/Vol] 2.3 mg/dL High <0.9 [facility] Comment on above: Order Comment: Augustina gary Type: BLOOD SPECIMENOrdering Facility: [facility] Address: [address] [place] [address] Performed By: #### 2 4321-2, 1987-10 ####[facility] LABIA [id number] [place] [address] [place] ESR Westergren method (Bld) [Velocity]on 06-16-2024 ESR (Bld) [Velocity] 8 mm/h [facility] Comment on above: Order Comment: Augustina gary Type: BLOOD SPECIMENOrdering Facility: [facility] Address: [address] [place] [address] Performed By: #### 4 537-7, 62440-0 ####[facility] LABIA [id number] [place] [address] [place] PT panel Coag (PPP)on 2023 INR Coag (PPP) [Relative time] 1.1 {INR} Normal 0.9-1.3 [facility] Comment on above: Order Comment: Augustina gary Type: BLOOD SPECIMENOrdering Facility: [facility] Address: [address] [place] [address] Result Comment: Alesha min K Antagonist (VKA) Therapeutic Range: INR 2 to 3 (Target INR of 2.5)Note: For patients treated with VKA drugs, such as warfarin, the [employer] 2012 Guideline recommends a therapeutic INR range of 2 to 3 (target INR of 2.5). This recommendation includes high-risk patients with antiphospholipid syndrome with previous arterial or venous thromboembolism, current-generation mechanical or bioprosthetic aortic heart valve replacement.Note: Patients with mechanical aortic valve replacement and additional risk factors for thromboembolic events (atrial fibrillation, previous thromboembolism, LV dysfunction, hypercoagulable conditions) or an older generation mechanical AVR (i.e., ball in-Cage) or any mechanical MVR should have a INR therapeutic range of 2.5 to 3.5 (target INR of 3).Jacobo GH, et al. Chest 2012, 141:7S-47SMauriimotto RA, et al. [facility] 2017, 70: 252-289 Performed By: #### 1 4979-9, 90595-2 ####[facility] LABCLIA [id number] [place] [address] [place] PT Coag (PPP) [Time] 11.5 s Normal 9.7-13.0 [facility] Comment on above: Order Comment: Speci men Type: BLOOD SPECIMENOrdering Facility: [facility] Address: [address] [place] [address] Performed By: #### 1 4979-9, 42573-3 ####[facility] LABIA [id number] [place] [address] [place] STAPHYLOCOCCUS AUREUS AND MR SA SCREEN, PCR, NASALon 06-16-2024 S. aureus and MRSA panel PAUL+probe (Nose) Not detected Normal Not Detected [facility] Comment on above: Order Comment: Speci men Type: SWABOrdering Facility: [facility] Address: [address] [place] [address] Performed By: #### S APCR ####[facility] LABIA [id number] [place] [address] [place] aPTT PPPon 06-16-2024 aPTT Coag (PPP) [Time] 36.6 s High 23.0-32.4 [facility] Comment on above: Order Comment: Speci men Type: BLOOD SPECIMENOrdering Facility: [facility] Address: [address] [place] [address] Performed By: #### 1 4979-9, 07928-1 ####[facility] LABCLIA [id number] [place] [address] [place] CNOVon 05-26-2024 CNOV Normal [facility] CNPNon 05-26-2024 CNPN Normal [facility] CNOVon 05-13-2024 CNOV Normal [facility] Urine Cultureon 05-13-2024 URC Escherichia coli [place] Count 25,000-50,000 Escherichia coli: REACTION Ampicillin Islt JUSTYN >=32 Ampicillin+Sulbac Islt JUSTYN 16 I ceFAZolin Islt JUSTYN <=4 S Cefepime Islt JUSTYN <=0.12 S cefTRIAXone Islt JUSTYN <=0.25 S Ciprofloxacin Islt JUSTYN <=0.25 S B-Lactamase Extended Susc Islt NEG Gentamicin Islt JUSTYN <=1 S Imipenem Islt JUSTYN <=0.25 S levoFLOXacin Islt JUSTYN <=0.12 S Nitrofurantoin Islt JUSTYN <=16 S Pip+Tazo Islt JUSTYN <=4 S Tobramycin Islt JUSTYN <=1 S TMP SMX Islt JUSTYN <=20 S Normal [facility] Comment on above: Performed By: #### M 100.2200, L400.0001 #### [facility] [address] [place], [address] XR CHEST 2V FRONTAL/LATon XR CHEST 2V FRONTAL/LAT Normal [facility] XR Chest PA and Lateralon IMPRESSION: No acute radiographic abnormality. [employer]: [email or web address] Transcribe Date/Time: May 13 2024 1:02P Dictated by : TINY HURLEY MD This examination was interpreted and the report reviewed and electronically signed by: TINY HURLEY MD on May 13 2024 1:03PM [facility] DIVISION OF RADIOLOGY * * *Final Report* * * DATE OF EXAM: May 13 2024 12:25PM WOX [id number] - XR CHEST 2V FRONTAL/LAT / PROCEDURE REASON: Mild intermittent asthma with acute exacerbation * * * * Physician Interpretation * * * * EXAMINATION: CHEST RADIOGRAPH (2 VIEW FRONTAL & LATERAL) CLINICAL HISTORY: Mild intermittent asthma with acute exacerbation MQ: XC2_6 EXAM DATE/TIME: 05/13/2024 12:25 PM COMPARISON: Chest x-ray on 04/14/2023 RESULT: Lines, tubes, and devices: None. Lungs and pleura: No consolidation. No lung mass. No pleural effusion. No pneumothorax. Cardiomediastinal silhouette: Normal cardiomediastinal silhouette. Bones and soft tissues: Unremarkable. DIVISION OF RADIOLOGY Provider, Maikol Zapata [facility] - 05/13/2024 * * *Final Report* * * DATE OF EXAM: May 13 2024 12:25PM WOX [id number] - XR CHEST 2V FRONTAL/LAT / PROCEDURE REASON: Mild intermittent asthma with acute exacerbation * * * * Physician Interpretation * * * * EXAMINATION: CHEST RADIOGRAPH (2 VIEW FRONTAL & LATERAL) CLINICAL HISTORY: Mild intermittent asthma with acute exacerbation MQ: XC2_6 EXAM DATE/TIME: 05/13/2024 12:25 PM COMPARISON: Chest x-ray on 04/14/2023 RESULT: Lines, tubes, and devices: None. Lungs and pleura: No consolidation. No lung mass. No pleural effusion. No pneumothorax. Cardiomediastinal silhouette: Normal cardiomediastinal silhouette. Bones and soft tissues: Unremarkable. IMPRESSION IMPRESSION: No acute radiographic abnormality. [employer]: [email or web address] Transcribe Date/Time: May 13 2024 1:02P Dictated by : TINY HURLEY MD This examination was interpreted and the report reviewed and electronically signed by: TINY HURLEY MD on May 13 2024 1:03PM EST [facility] Radiology Study observation (narrative) [facility] XR Chest PA and LateralOrder ed By: [facility] Provider on 05-13-2024 [facility] Emergency Department Summary on 05-11-2024 Emergency Department Summary [facility] Medical Records Department [address] [place] [address] Emergency Department Summary 05/11/24 MR#: [id number] Acct: [id number] Name: MATEUS MANZANO Rep #: [id number] : 1985 38 From: Yan Amaya MD PCP: Dr. 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 He has been using sterile equipment and being clean. Denies any abdominal pain or vomiting. States the last time he self caths several hours ago urine was dark but no blood. [facility] Medical History Smoker MTHFR mutation Factor 5 Leiden mutation, heterozygous Low testosterone in male Abscess Paraplegia Home Medications ???Medication ???Instructions ???Recorded ???Last Taken ???Type baclofen 20 mg tablet 10 mg PO BID spasms 03/18/13 01/02/24 History morphine 30 mg tablet,extended 15 mg PO Q12H pain 03/18/13 01/02/24 History release pregabalin 150 mg capsule (Lyrica) 200 mg PO BID nerve pain 08/31/15 01/02/24 History rivaroxaban 20 mg tablet (Xarelto) 20 mg PO DAILY blood thinner 08/31/15 Unknown History tizanidine 2 mg capsule (Zanaflex) 2 mg PO BID muscle relaxer 02/18/21 01/02/24 History clomiphene citrate 50 mg tablet 50 mg PO QODAY Testosterone 11/14/21 Unknown History (Serophene) hydroxyzine pamoate 25 mg capsule 25 mg PO TID PRN PRN Anxiety #30 11/14/21 Unknown Rx caps prednisone 20 mg tablet 60 mg (3 x 20 mg) PO DAILY 11/14/21 01/02/24 Rx inflammation #15 tabs diclofenac sodium 50 mg 50 mg PO BID PRN PRN pain 01/02/24 01/02/24 History tablet,delayed release levofloxacin 750 mg tablet 750 mg PO DAILY 6 days #6 tabs 01/03/24 Unknown Rx sulfamethoxazole 800 1 tab PO BID #14 TABLETS 05/11/24 Unknown Rx mg-trimethoprim 160 mg tablet Allergy/AdvReac Type Severity Reaction Status Date / Time codeine Allergy Other Verified 05/11/24 15:07 piperacillin sodium (From Allergy Hives Verified 05/11/24 15:07 Zosyn) tazobactam sodium (From Allergy Hives Verified 05/11/24 15:07 Zosyn) acetaminophen (From Vicodin) AdvReac Other Verified 05/11/24 15:07 hydrocodone bitartrate (From AdvReac Other Verified 05/11/24 15:07 Vicodin) Social History Smoking Status: Current some day smoker tobacco type: cigarettes ROS ROS ED Constitutional Constitutional ED: Reports chills, fever(s) and subjective Eyes Eyes: Denies change in vision or diplopia ENT ENT ED: Denies rhinorrhea or sore throat Cardiovascular Cardiovascular: Denies chest pain or palpitations Respiratory/Chest Respiratory/Chest: Denies cough or dyspnea Gastrointestinal Gastrointestinal: Reports nausea; Denies abdominal pain, diarrhea or vomiting Genitourinary Genitourinary ED: Reports as per HPI; Denies dysuria or hematuria Musculoskeletal Musculoskeletal: Reports back pain; Denies neck pain Integumentary Denies abscess or rash Neurologic Neurologic: Reports paresthesias and other Details: Chronic abnormal sensation from the waist down no changes ; Denies headache(s) or weakness Psychiatric Psychiatric: Denies anxiety or suicidal thoughts EXAM Physical Exam Const Vital Signs: 05/11/24 15:06 05/11/24 15:07 Temperature 97.6 F L 98.6 F Temperature Source Temporal Oral Pulse Rate 125 H 115 H Respiratory Rate 19 H 18 Blood Pressure 177/92 H 164/76 H Blood Pressure Mean 120 105 Pulse Ox 100 99 Oxygen Delivery Method Room Air Room Air Positive well nourished and well developed General Appearance ED: well developed and NAD HEENT Reports moist mucous membranes normocephalic and atraumatic Eyes PERRL and EOMs intact bilaterally Neck full ROM and supple Resp normal respiratory effort and clear to auscultation bilaterally Cardio regular rate, regular rhythm and no murmurs GI non-tender and non-distended Auscultation: normoactive bowel sounds Palpation: soft Back/Spine no CVA tenderness Back/Spine Narrative: Normal inspection General Back: other FROM Extremity normal to inspection General Extremety ED: Negative for edema, pulses abnormal or tenderness General Extremity: Negative for edema or pulses abnormal Neuro oriented x3 and CN's II-XII intact bilaterally Neuro Narrative: He had a move all 4 extremities at baseline per patient Sensorium / Orientation: awake and alert Psych (more content not included)... Normal [facility] Urinalysis, Completeon 05-11 BACTERIA 2+ /hpf Normal None Seen [facility] Comment on above: Order Comment: COLLE CTOR TO SPECIFY Performed By: #### M 100.2200, L400.0001 #### [facility] [address] [place], [address] EPI,SQUAMOUS 0-5 SEEN Normal 0-5 [facility] Comment on above: Order Comment: COLLE CTOR TO SPECIFY Performed By: #### M 100.2200, L400.0001 #### [facility] [address] [place], [address] WBC 10-25 SEEN Normal 0-5 [facility] Comment on above: Order Comment: TESSA CTOR TO SPECIFY Performed By: #### M 100.2200, L400.0001 #### [facility] [address] [place], [address] BILIRUBIN URINE Negative Normal Negative [facility] Comment on above: Order Comment: [facility] CTOR TO SPECIFY Performed By: #### M 100.2200, L400.0001 #### [facility] [address] [place], [address] Clarity (U) Clear Normal Clear [facility] Comment on above: Order Comment: [facility] CTOR TO SPECIFY Performed By: #### M 100.2200, L400.0001 #### [facility] [address] [place], [address] Color (U) Yellow Normal Yellow [facility] Comment on above: Order Comment: [facility] CTOR TO SPECIFY Performed By: #### M 100.2200, L400.0001 #### [facility] [address] [place], [address] GLUCOSE, UR Normal Normal Normal [facility] Comment on above: Order Comment: COLLE CTOR TO SPECIFY Performed By: #### M 100.2200, L400.0001 #### [facility] [address] [place], [address] KETONE UR Negative Normal Negative [facility] Comment on above: Order Comment: TESSA CTOR TO SPECIFY Performed By: #### M 100.2200, L400.0001 #### [facility] [address] [place], [address] LEUK ESTERASE 25 /ul Abnormal Negative [facility] Comment on above: Order Comment: TESSA CTOR TO SPECIFY Performed By: #### M 100.2200, L400.0001 #### [facility] [address] [place], [address] Nitrite Ql (U) Negative Normal Negative [facility] Comment on above: Order Comment: TESSA CTOR TO SPECIFY Performed By: #### M 100.2200, L400.0001 #### [facility] [address] [place], [address] OCCULT BLOOD-UR Negative Normal Negative [facility] Comment on above: Order Comment: TESSA CTOR TO SPECIFY Performed By: #### M 100.2200, L400.0001 #### [facility] [address] [place], [address] pH UR 8.0 Normal 5.0 - 8.0 [facility] Comment on above: Order Comment: TESSA CTOR TO SPECIFY Performed By: #### M 100.2200, L400.0001 #### [facility] [address] [place], [address] PROT DIPSTX Negative Normal Negative [facility] Comment on above: Order Comment: TESSA CTOR TO SPECIFY Performed By: #### M 100.2200, L400.0001 #### [facility] [address] [place], [address] SP.GR. DIPSTX 1.015 Normal 1.002-1.03 0 [facility] Comment on above: Order Comment: TESSA CTOR TO SPECIFY Performed By: #### M 100.2200, L400.0001 #### [facility] [address] [place], [address] UROBILI 1 mg/dl Abnormal Normal [facility] Comment on above: Order Comment: COLLE CTOR TO SPECIFY Performed By: #### M 100.2200, L400.0001 #### [facility] [address] [place], [address] Mucus Ql (Urine sed) 0 SEEN Normal [facility] Comment on above: Order Comment: COLLE CTOR TO SPECIFY Performed By: #### M 100.2200, L400.0001 #### [facility] [address] [place], [address] RBC 0 SEEN Normal 0-5 [facility] Comment on above: Order Comment: COLLE CTOR TO SPECIFY Performed By: #### M 100.2200, L400.0001 #### [facility] [address] [place], [address] Additional Injections: L elb ow jointon 04-14-2024 Ju Gustafson DO 04/14/2024 11:37 AM Additional Injections: L elbow joint for lateral epicondylitis Informed Consent Consent Obtained: Written [place] Protocol A moment to CARE was completed. SIGN IN Personnel directly involved with the procedure wore the appropriate PPE. Patient/Surrogate Stated/Verified: Patient name, Date of , Relevant allergies and Intended procedure TIME OUT Intended patient and procedure match the source document(s). Consent documented and matches the intended procedure. Relevant labs, photos, and/or imaging studies have been reviewed. Correct side/site marked and visible. Medications required for procedure verified. 04/14/2024 11:37 AM The procedure site was prepped in the usual sterile fashion. Details:Musculoskeletal ultrasound was utilized to successfully localize placement of the injection needle at the appropriate site. Ultrasound images demonstrating local vasculature and demonstrating injection of solution were saved. Medications: 40 mg triamcinolone acetonide 40 mg/mL Anesthetics: 1 mL ROPivacaine (PF) 5 mg/mL (0.5 %) Outcome: tolerated well, no immediate complications Post-injection instructions were reviewed with the patient and the patient voiced understanding of these instructions. [facility] CNOVon 04-14-2024 CNOV Normal [facility] Large Joint Arthro/Inj: bila teral subacromial bursason 04-14-2024 Ju Gustafson DO 04/14/2024 11:37 AM Large Joint Arthro/Inj: bilateral subacromial bursas Informed Consent Consent Obtained: Written [place] Protocol A moment to CARE was completed. SIGN IN Personnel directly involved with the procedure wore the appropriate PPE. Patient/Surrogate Stated/Verified: Patient name, Date of , Relevant allergies and Intended procedure TIME OUT Intended patient and procedure match the source document(s). Consent documented and matches the intended procedure. Relevant labs, photos, and/or imaging studies have been reviewed. Correct side/site marked and visible. Medications required for procedure verified. 04/14/2024 11:36 AM The procedure site was prepped in the usual sterile fashion. Site: bilateral subacromial bursas Details:Musculoskeletal ultrasound was utilized to successfully localize placement of the injection needle at the appropriate site. Ultrasound images demonstrating local vasculature and demonstrating injection of solution were saved. Medications (Right): 40 mg triamcinolone acetonide 40 mg/mL Medications (Left): 40 mg triamcinolone acetonide 40 mg/mL Anesthetics (Right): 3 mL ROPivacaine (PF) 5 mg/mL (0.5 %) Anesthetics (Left): 3 mL ROPivacaine (PF) 5 mg/mL (0.5 %) Outcome: Tolerated well, no immediate complications Post-injection instructions were reviewed with the patient and the patient voiced understanding of these instructions. [facility] CNOVon 03-28-2024 CNOV Normal [facility] CNOVon 03-27-2024 CNOV Normal [facility] CNOVon 03-03-2024 CNOV Normal [facility] CNOVon 02-05-2024 CNOV Normal [facility] CNOVon 02-04-2024 CNOV Normal [facility] CNPNon 02-04-2024 CNPN Normal [facility] CNPNon 02-01-2024 CNPN Normal [facility] 25(OH)D3 SerPl-mCncon 2023 25-hydroxyvitamin D3 [Mass/Vol] 28.1 ng/mL Low 31.0-80.0 [facility] Comment on above: Order Comment: Speci men Type: BLOOD SPECIMENOrdering Facility: [facility] Address: [address] [place] [address] Performed By: #### 1 989-3 ####[facility] LABCLIA [id number] [place] [address] [place] CBC W Auto Differential pane l (Bld)on 01-31-2024 Basophils (Bld) [#/Vol] 0.05 10*3/uL Normal <0.11 [facility] Comment on above: Order Comment: Speci men Type: BLOOD SPECIMENOrdering Facility: [facility] Address: [address] [place] [address] Performed By: #### 5 7021-8 ####[facility] LABCLIA [id number] [place] [address] [place] Basophils/100 WBC (Bld) 0.3 % Normal [facility] Comment on above: Order Comment: Speci men Type: BLOOD SPECIMENOrdering Facility: [facility] Address: [address] [place] [address] Performed By: #### 5 7021-8 ####[facility]CLIA [id number] [place] [address] [place] Differential cell count method Nom (Bld) Auto Normal [facility] Comment on above: Order Comment: Speci men Type: BLOOD SPECIMENOrdering Facility: [facility] Address: [address] [place] [address] Performed By: #### 5 7021-8 ####[facility] LABCLIA [id number] [place] [address] [place] Eosinophils (Bld) [#/Vol] 0.15 10*3/uL Normal <0.46 [facility] Comment on above: Order Comment: Speci men Type: BLOOD SPECIMENOrdering Facility: [facility] Address: [address] [place] [address] Performed By: #### 5 7021-8 ####[facility]CLIA [id number] [place] [address] [place] Eosinophils/100 WBC (Bld) 1.0 % Normal [facility] Comment on above: Order Comment: Speci men Type: BLOOD SPECIMENOrdering Facility: [facility] Address: [address] [place] [address] Performed By: #### 5 7021-8 ####[facility] LABCLIA [id number] [place] [address] [place] Erythrocyte distribution width (RBC) [Ratio] 14.8 % Normal 11.5-15.0 [facility] Comment on above: Order Comment: Speci men Type: BLOOD SPECIMENOrdering Facility: [facility] Address: [address] [place] [address] Performed By: #### 5 7021-8 ####[facility] LABIA [id number] [place] [address] [place] Hematocrit (Bld) [Volume fraction] 52.7 % High 39.0-51.0 [facility] Comment on above: Order Comment: Speci men Type: BLOOD SPECIMENOrdering Facility: [facility] Address: [address] [place] [address] Performed By: #### 5 7021-8 ####[facility] LABCLIA [id number] [place] [address] [place] Hemoglobin (Bld) [Mass/Vol] 17.7 g/dL High 13.0-17.0 [facility] Comment on above: Order Comment: Speci men Type: BLOOD SPECIMENOrdering Facility: [facility] Address: [address] [place] [address] Performed By: #### 5 7021-8 ####[facility]IA [id number] [address], [place] [address] [place] Immature granulocytes (Bld) [#/Vol] 0.08 10*3/uL Normal <0.10 [facility] Comment on above: Order Comment: Speci men Type: BLOOD SPECIMENOrdering Facility: [facility] Address: [address] [place] [address] Performed By: #### 5 7021-8 ####[facility] LABCLIA [id number] [place] [address] [place] Immature granulocytes/100 WBC (Bld) 0.6 % Normal [facility] Comment on above: Order Comment: Speci men Type: BLOOD SPECIMENOrdering Facility: [facility] Address: [address] [place] [address] Performed By: #### 5 7021-8 ####[facility] LABCLIA [id number] [place] [address] [place] Lymphocytes (Bld) [#/Vol] 1.36 10*3/uL Normal 1.00-4.00 [facility] Comment on above: Order Comment: Speci men Type: BLOOD SPECIMENOrdering Facility: [facility] Address: [address] [place] [address] Performed By: #### 5 7021-8 ####[facility] LABCLIA [id number] [place] [address] [place] Lymphocytes/100 WBC (Bld) 9.5 % Normal [facility] Comment on above: Order Comment: Speci men Type: BLOOD SPECIMENOrdering Facility: [facility] Address: [address] [place] [address] Performed By: #### 5 7021-8 ####[facility] LABCLIA [id number] [place] [address] [place] MCH (RBC) [Entitic mass] 31.2 pg Normal 26.0-34.0 [facility] Comment on above: Order Comment: Speci men Type: BLOOD SPECIMENOrdering Facility: [facility] Address: [address] [place] [address] Performed By: #### 5 7021-8 ####[facility] LABCLIA [id number] [place] [address] [place] MCHC (RBC) [Mass/Vol] 33.6 g/dL Normal 30.5-36.0 [facility] Comment on above: Order Comment: Speci men Type: BLOOD SPECIMENOrdering Facility: [facility] Address: [address] [place] [address] Performed By: #### 5 7021-8 ####[facility] [id number] [place] [address] [place] MCV (RBC) [Entitic vol] 92.9 fL Normal 80.0-100.0 [facility] Comment on above: Order Comment: Speci men Type: BLOOD SPECIMENOrdering Facility: [facility] Address: [address] [place] [address] Performed By: #### 5 7021-8 ####[facility] [id number] [place] [address] [place] Monocytes (Bld) [#/Vol] 0.31 10*3/uL Normal <0.87 [facility] Comment on above: Order Comment: Speci men Type: BLOOD SPECIMENOrdering Facility: [facility] Address: [address] [place] [address] Performed By: #### 5 7021-8 ####[facility] LABCLIA [id number] [place] [address] [place] Monocytes/100 WBC (Bld) 2.2 % Normal [facility] Comment on above: Order Comment: Speci men Type: BLOOD SPECIMENOrdering Facility: [facility] Address: [address] [place] [address] Performed By: #### 5 7021-8 ####[facility]IA [id number] [place] [address] [place] Neutrophils (Bld) [#/Vol] 12.41 10*3/uL High 1.45-7.50 [facility] Comment on above: Order Comment: Speci men Type: BLOOD SPECIMENOrdering Facility: [facility] Address: [address] [place] [address] Performed By: #### 5 7021-8 ####[facility] LABCLIA [id number] [place] [address] [place] Neutrophils/100 WBC (Bld) 86.4 % Normal [facility] Comment on above: Order Comment: Speci men Type: BLOOD SPECIMENOrdering Facility: [facility] Address: [address] [place] [address] Performed By: #### 5 7021-8 ####[facility] LABCLIA [id number] [place] [address] [place] Nucleated RBC (Bld) [#/Vol] 10*3/uL Normal <0.01 [facility] Comment on above: Order Comment: Speci men Type: BLOOD SPECIMENOrdering Facility: [facility] Address: [address] [place] [address] Performed By: #### 5 7021-8 ####[facility] LABCLIA [id number] [place] [address] [place] Nucleated RBC/100 WBC (Bld) [Ratio] 0.0 /100 WBC Normal [facility] Comment on above: Order Comment: Speci men Type: BLOOD SPECIMENOrdering Facility: [facility] Address: [address] [place] [address] Performed By: #### 5 7021-8 ####[facility] LABCLIA [id number] [place] [address] [place] Platelet mean volume (Bld) [Entitic vol] 11.7 fL Normal 9.0-12.7 [facility] Comment on above: Order Comment: Speci men Type: BLOOD SPECIMENOrdering Facility: [facility] Address: [address] [place] [address] Performed By: #### 5 7021-8 ####[facility] [id number] [place] [address] [place] Platelets (Bld) [#/Vol] 150 10*3/uL Normal 150-400 [facility] Comment on above: Order Comment: Speci men Type: BLOOD SPECIMENOrdering Facility: [facility] Address: [address] [place] [address] Performed By: #### 5 7021-8 ####[facility] [id number] [place] [address] [place] RBC (Bld) [#/Vol] 5.67 10*6/uL Normal 4.20-6.00 [facility] Comment on above: Order Comment: Speci men Type: BLOOD SPECIMENOrdering Facility: [facility] Address: [address] [place] [address] Performed By: #### 5 7021-8 ####[facility]IA [id number] [place] [address] [place] WBC (Bld) [#/Vol] 14.36 10*3/uL High 3.70-11.00 [facility] Comment on above: Order Comment: Speci men Type: BLOOD SPECIMENOrdering Facility: [facility] Address: [address] [place] [address] Performed By: #### 5 7021-8 ####[facility] [id number] [place] [address] [place] Comprehensive metabolic 2000 panelon 01-31-2024 Albumin [Mass/Vol] 4.0 g/dL Normal 3.9-4.9 [facility] Comment on above: Order Comment: Speci men Type: BLOOD SPECIMENOrdering Facility: [facility] Address: [address] [place] [address] Performed By: #### 2 4323-8, 63903-1, 6-4, 22923-6 ####[facility] LABCLIA [id number] [address] [address] [place] ALP [Catalytic activity/Vol] 79 U/L Normal 38-113 [facility] Comment on above: Order Comment: Speci men Type: BLOOD SPECIMENOrdering Facility: [facility] Address: [address] [place], [place] [address] Performed By: #### 2 4323-8, 56806-9, 6-4, 84234-1 ####[facility] LABCLIA [id number] [place] [address] [place] ALT [Catalytic activity/Vol] 30 U/L Normal 10-54 [facility] Comment on above: Order Comment: Speci men Type: BLOOD SPECIMENOrdering Facility: [facility] Address: [address] [place] [address] Performed By: #### 2 4323-8, 89164-7, 6-4, 27221-7 ####[facility] LABCLIA [id number] [place] [address] [place] Anion gap [Moles/Vol] 11 mmol/L Normal 8-15 [facility] Comment on above: Order Comment: Speci men Type: BLOOD SPECIMENOrdering Facility: [facility] Address: [address] [place] [address] Performed By: #### 2 4323-8, 92157-4, 6-4, 53742-2 ####[facility] LABIA [id number] [place] [id number] [place] AST [Catalytic activity/Vol] 21 U/L Normal 14-40 [facility] Comment on above: Order Comment: Speci men Type: BLOOD SPECIMENOrdering Facility: [facility] Address: [address] [place] [address] Performed By: #### 2 4323-8, 08069-1, 6-4, 89781-3 ####[facility] LABCLIA [id number] [address] [address] [place] Bilirubin [Mass/Vol] 0.4 mg/dL Normal 0.2-1.3 [facility] Comment on above: Order Comment: Speci men Type: BLOOD SPECIMENOrdering Facility: [facility] Address: [address] [place] [address] Performed By: #### 2 4323-8, 06277-0, 2275-4, 36595-7 ####[facility] LABCLIA [id number] [place] [address] [place] Calcium [Mass/Vol] 9.1 mg/dL Normal 8.5-10.2 [facility] Comment on above: Order Comment: Speci men Type: BLOOD SPECIMENOrdering Facility: [facility] Address: [address] [place] [address] Performed By: #### 2 4323-8, 45798-5, 6-4, 91746-2 ####[facility]IA [id number] [place] [address] [place] Chloride [Moles/Vol] 106 mmol/L Normal 98-107 [facility] Comment on above: Order Comment: Speci men Type: BLOOD SPECIMENOrdering Facility: [facility] Address: [address] [place] [address] Performed By: #### 2 4323-8, 97408-3, 2275-4, 15456-2 ####[facility] LABCLIA [id number] [place] [address] [place] CO2 [Moles/Vol] 23 mmol/L Normal 22-30 [facility] Comment on above: Order Comment: Speci men Type: BLOOD SPECIMENOrdering Facility: [facility] Address: [address] [place] [address] Performed By: #### 2 4323-8, 10474-5, 6-4, 38921-1 ####[facility]IA [id number] [place] [address] [place] Creatinine [Mass/Vol] 0.84 mg/dL Normal 0.73-1.22 [facility] Comment on above: Order Comment: Speci men Type: BLOOD SPECIMENOrdering Facility: [facility] Address: [address] [place] [address] Performed By: #### 2 4323-8, 34224-0, 2275-4, 55136-7 ####[facility] [id number] [place] [address] [place] Creatinine and Glomerular filtration rate.predicted panel (S/P/Bld) 114 mL/min/1.73m??? Normal >=60 [facility] Comment on above: Order Comment: Speci men Type: BLOOD SPECIMENOrdering Facility: [facility] Address: [address] [place] [address] Result Comment: Re mated Glomerular Filtration Rate (eGFR) is calculated using the 2020 CKD-EPI creatinine equation. This equation utilizes serum creatinine, sex, and age as parameters. The creatinine assay has traceable calibration to isotope dilution-mass spectrometry. Refer to KDIGO guidelines for clinical interpretation. In patients with unstable renal function, e.g. those with acute kidney injury, the eGFR may not accurately reflect actual GFR. Performed By: #### 2 4323-8, 45897-7, 2275-4, 19528-0 ####[facility]IA [id number] [address] [address] [place] Glucose [Mass/Vol] 98 mg/dL Normal 74-99 [facility] Comment on above: Order Comment: Speci men Type: BLOOD SPECIMENOrdering Facility: [facility] Address: [address] [place] [address] Result Comment: The [place] Diabetes Association (ADA) provides guidance for cutoff values for fasting glucose and random glucose. The ADA defines fasting as no caloric intake for at least 8 hours. Fasting plasma glucose results between 100 to 125 mg/dL indicate increased risk for diabetes (prediabetes).Fasting plasma glucose results greater than or equal to 126 mg/dL meet the criteria for diagnosis of diabetes. In the absence of unequivocal hyperglycemia, results should be confirmed by repeat testing. In a patient with classic symptoms of hyperglycemia or hyperglycemic crisis, random plasma glucose results greater than or equal to 200 mg/dL meet the criteria for diagnosis of diabetes.Reference: Standards of Medical Care in Diabetes 2016, [place] [employer]. Diabetes Care. 2016.39(Suppl 1). Performed By: #### 2 4323-8, 19295-2, 6-4, 49717-6 ####[facility]IA [id number] [place] [address] [place] Potassium [Moles/Vol] 4.0 mmol/L Normal 3.7-5.1 [facility] Comment on above: Order Comment: Speci men Type: BLOOD SPECIMENOrdering Facility: [facility] Address: [address] [place] [address] Performed By: #### 2 4323-8, 86272-5, 2275-4, 68428-7 ####[facility] [id number] [place] [address] [place] Protein [Mass/Vol] 6.8 g/dL Normal 6.3-8.0 [facility] Comment on above: Order Comment: Speci men Type: BLOOD SPECIMENOrdering Facility: [facility] Address: [address] [place] [address] Performed By: #### 2 4323-8, 97122-6, 6-4, 53111-4 ####[facility] [id number] [place] [address] [place] Sodium [Moles/Vol] 140 mmol/L Normal 136-144 [facility] Comment on above: Order Comment: Speci men Type: BLOOD SPECIMENOrdering Facility: [facility] Address: [address] [place] [address] Performed By: #### 2 4323-8, 15861-0, 6-4, 24330-4 ####[facility] LABCLIA [id number] [place] [address] [place] Urea nitrogen [Mass/Vol] 12 mg/dL Normal 9-24 [facility] Comment on above: Order Comment: Speci men Type: BLOOD SPECIMENOrdering Facility: [facility] Address: [address] [place] [address] Performed By: #### 2 4323-8, 38862-6, 6-4, 57536-9 ####[facility]IA [id number] [place] [address] [place] Ferritin SerPl-mCncon 2023 Ferritin [Mass/Vol] 283.0 ng/mL Normal 30.3-565.7 [facility] Comment on above: Order Comment: Speci men Type: BLOOD SPECIMENOrdering Facility: [facility] Address: [address] [place] [address] Performed By: #### 2 4323-8, 98822-3, 6-4, 75012-9 ####[facility]IA [id number] [place] [address] [place] HbA1c (Bld)on 01-31-2024 Average glucose Estimated from glycated hemoglobin (Bld) [Mass/Vol] 97 mg/dL Normal [facility] Comment on above: Order Comment: Speci men Type: BLOOD SPECIMENOrdering Facility: [facility] Address: [address] [place] [address] Result Comment: eAG: (Estimated average glucose) is a calculated value from HgbA1c and is inside account representative of the average blood glucose level in the last 2-3 month period. Performed By: #### 5 5454-3 ####[facility] [id number] [place] [address] [place] HbA1c (Bld) [Mass fraction] 5.0 % Normal 4.3-5.6 [facility] Comment on above: Order Comment: Speci men Type: BLOOD SPECIMENOrdering Facility: [facility] Address: [address] [place] [address] Result Comment: Kristopher [place] Diabetes Association guidelines indicate that patients with HgbA1c in the range 5.7-6.4% are at increased risk for development of diabetes, and intervention by lifestyle modification may be beneficial. HgbA1c greater or equal to 6.5% is considered diagnostic of diabetes. Performed By: #### 5 5454-3 ####[facility] LABCLIA [id number] [place] [address] [place] Iron and Iron binding capaci ty panelon 01-31-2024 Iron [Mass/Vol] 67 ug/dL Normal 41-186 [facility] Comment on above: Order Comment: Speci men Type: BLOOD SPECIMENOrdering Facility: [facility] Address: [address] [place] [address] Performed By: #### 2 4323-8, 73696-5, 2276-4, 56921-3 ####[facility]IA [id number] [place] [address] [place] Iron binding capacity [Mass/Vol] 263 ug/dL Normal 232-386 [facility] Comment on above: Order Comment: Speci men Type: BLOOD SPECIMENOrdering Facility: [facility] Address: [address] [place] [address] Performed By: #### 2 4323-8, 37506-3, 6-4, 23910-1 ####[facility]IA [id number] [place] [id number] [place] Iron/TIBC [Molar ratio] 25.5 % Normal 15.0-57.0 [facility] Comment on above: Order Comment: Speci men Type: BLOOD SPECIMENOrdering Facility: [facility] Address: [address] [place] [address] Performed By: #### 2 4323-8, 50496-0, 2276-4, 10663-6 ####[facility] LABCLIA [id number] [place] [address] [place] Lipid 1996 panelon 4 Cholesterol [Mass/Vol] 189 mg/dL Normal <200 [facility] Comment on above: Order Comment: Speci men Type: BLOOD SPECIMENOrdering Facility: [facility] Address: [address] [place] [address] Result Comment: <200 mg/dL, Desirable 200-239 mg/dL, Borderline high>239 mg/dL, High Performed By: #### 2 4323-8, 90654-6, 2275-4, 36551-7 ####[facility] LABCLIA [id number] [address] [place] Cholesterol in HDL [Mass/Vol] 26 mg/dL Low >39 [facility] Comment on above: Order Comment: Speci men Type: BLOOD SPECIMENOrdering Facility: [facility] Address: [address] [place] [address] Result Comment: 40-5 9 mg/dL, Acceptable>59 mg/dL, High: Negative risk factor for coronary heart disease<40 mg/dL, Low: Positive risk factor for coronary heart disease Performed By: #### 2 4323-8, 52540-3, 2275-4, 19259-1 ####[facility] LABCLIA [id number] [address] [place] Cholesterol in LDL [Mass/Vol] 143 mg/dL High <100 [facility] Comment on above: Order Comment: Speci men Type: BLOOD SPECIMENOrdering Facility: [facility] Address: [address] [place] [address] Result Comment: <100 mg/dL, Optimal 100-129 mg/dL, Near optimal/above optimal 130-159 mg/dL, Borderline high 160-189 mg/dL, High>189 mg/dL, Very highSecondary prevention optimal LDL Cholesterol levels are recommended to be < 70 mg/dL Performed By: #### 2 4323-8, 99802-1, 6-4, 24952-0 ####[facility]IA [id number] [place] [address] [place] Cholesterol in LDL/Cholesterol in HDL [Mass ratio] 5.50 {ratio} High <2.54 [facility] Comment on above: Order Comment: Speci men Type: BLOOD SPECIMENOrdering Facility: [facility] Address: [address] [place] [address] Result Comment: Refe rence:1. National Cholesterol Education Program ATP III Guideline At-A-Glance Quick Desk Reference: National Heart, Lung, and Blood [place]. National Institutes of Health. 2001: NIH Publication No. 01-3305.2. An International Atherosclerosis Society position paper: global recommendations for the management of dyslipidemia: executive summary, Atherosclerosis. 2014: 232(2):410-413. Performed By: #### 2 4323-8, 65972-9, 6-4, 47261-1 ####[facility] [id number] [place] [address] [place] Cholesterol in VLDL [Mass/Vol] 20 mg/dL Normal <30 [facility] Comment on above: Order Comment: Speci men Type: BLOOD SPECIMENOrdering Facility: [facility] Address: [address] [place] [address] Performed By: #### 2 4323-8, 18339-9, 6-4, 37452-1 ####[facility] [id number] [place] [address] [place] Cholesterol non HDL [Mass/Vol] 163 mg/dL High <130 [facility] Comment on above: Order Comment: Speci men Type: BLOOD SPECIMENOrdering Facility: [facility] Address: [address] [place] [address] Result Comment: <130 mg/dL, Optimal 130-159 mg/dL, Near optimal/above optimal 160-189 mg/dL, Borderline high 190-219 mg/dL, High>219 mg/dL, Very highSecondary prevention optimal non HDL Cholesterol levels are recommended to be <100 mg/dL Performed By: #### 2 4323-8, 09630-7, 2275-4, 78060-9 ####[facility] LABCLIA [id number] [address] [address] [place] Cholesterol.total/Chol esterol in HDL [Mass ratio] 7.27 {ratio} High <5.10 [facility] Comment on above: Order Comment: Speci men Type: BLOOD SPECIMENOrdering Facility: [facility] Address: [address] [place] [address] Performed By: #### 2 4323-8, 55253-0, 2275-09, ####[facility] [id number] [place] [address] [place] FASTING TIME 15 hrs Normal [facility] Comment on above: Order Comment: Speci men Type: BLOOD SPECIMENOrdering Facility: [facility] Address: [address] [place] [address] Performed By: #### 2 4323-8, 10346-7, 2275-09, ####[facility] LABCLIA [id number] [place] [address] [place] Triglyceride [Mass/Vol] 100 mg/dL Normal <150 [facility] Comment on above: Order Comment: Speci men Type: BLOOD SPECIMENOrdering Facility: [facility] Address: [address] [place] [address] Result Comment: <150 mg/dL, Normal 150-199 mg/dL, Borderline high 200-499 mg/dL, High>499 mg/dL, Very high Performed By: #### 2 4323-8, 56376-9, 2275-, 72935-1 ####[facility] LABCLIA [id number] [address] [address] [place] Vit B12 [facility] Cobalamin (Vitamin B12) [Mass/Vol] 852 pg/mL Normal 232-1245 [facility] Comment on above: Order Comment: Speci men Type: BLOOD SPECIMENOrdering Facility: [facility] Address: [address] [place] [address] Performed By: #### 2 132-9 ####[facility] LABCLIA [id number] [address] [address] [place] CNPNon 01-16-2024 CNPN Normal [facility] CNOVon 01-14-2024 CNOV Normal [facility] CNPNon 01-10-2024 CNPN Normal [facility] CNOVon 01-09-2024 CNOV Normal [facility] Culture, Blood (WB)on 2023 CUB No growth in 5 days. Normal [facility] Comment on above: Performed By: #### M 200.1000 #### [facility] [address] [place], [address] Urine Cultureon 01-04-2024 [facility] Presumptive E. coli [place] Count 11,000-25,000 Presumptive E. coli: REACTION Ampicillin Islt JUSTYN >=32 R Ampicillin+Sulbac Islt JUSTYN 16 I ceFAZolin Islt JUSTYN <=4 S Cefepime Islt JUSTYN <=0.12 S cefTRIAXone Islt JUSTYN <=0.25 S Ciprofloxacin Islt JUSTYN <=0.25 S Ertapenem Islt JUSTYN <=0.12 S B-Lactamase Extended Susc Islt NEG Gentamicin Islt JUSTYN <=1 S Imipenem Islt JUSTYN <=0.25 S levoFLOXacin Islt JUSTYN <=0.12 S Nitrofurantoin Islt JUSTYN <=16 S Pip+Tazo Islt JUSTYN <=4 S Tobramycin Islt JUSTYN <=1 S TMP SMX Islt JUSTYN <=20 S [facility] Comment on above: Performed By: #### L 400.0001, M100.2200 #### [facility] [address] [place], [address] Basic Metabolic Profile (BMP )on 01-03-2024 BUN/CRE 15.0 RATIO Normal 10-20 [facility] Comment on above: Performed By: #### M 100.678 #### [facility] [address] [place], [address] CA,Total 7.9 mg/dL Low 8.5-10.1 [facility] Comment on above: Performed By: #### M 100.678 #### [facility] [address] [place], [address] Chloride [Moles/Vol] 110 mmol/L High 98-107 [facility] Comment on above: Performed By: #### M 100.678 #### [facility] [address] [place], [address] CO2 [Moles/Vol] 25.0 mmol/L Normal 21.0-32.0 [facility] Comment on above: Performed By: #### M 100.678 #### [facility] [address] [place], [address] Creatinine [Mass/Vol] 0.80 mg/dL Normal 0.70-1.30 [facility] Comment on above: Result Comment: The validity of the calculated GFR GFRAA in patients over 70 years has not been determined. Clinical correlation is essential. Performed By: #### M 100.678 #### [facility] [address] [place], [address] ECRCL 184.75 ml/min Normal [facility] Comment on above: Performed By: #### M 100.678 #### [facility] [address] [place], [address] EST GFR - AA 139 mL/min Normal >60 [facility] Comment on above: Result Comment: Afri can Cypriot GFR Calc Performed By: #### M 100.678 #### [facility] [address] [place], [address] GAP 5 Normal 5-15 [facility] Comment on above: Performed By: #### M 100.678 #### [facility] [address] [place], [address] GFR/1.73 sq M.predicted among non-blacks MDRD (S/P/Bld) [Vol rate/Area] 115 mL/min/{1.73_m2} Normal >60 [facility] Comment on above: Result Comment: Non- GFR Calc Performed By: #### M 100.678 #### [facility] [address] [place], [address] Glucose [Mass/Vol] 88 mg/dL Normal 74-106 [facility] Comment on above: Performed By: #### M 100.678 #### [facility] [address] [place], [address] Potassium [Moles/Vol] 3.8 mmol/L Normal 3.5-5.1 [facility] Comment on above: Performed By: #### M 100.678 #### [facility] [address] [place], [address] Sodium [Moles/Vol] 140 mmol/L Normal 136-145 [facility] Comment on above: Performed By: #### M 100.678 #### [facility] [address] [place], [address] Urea nitrogen [Mass/Vol] 12 mg/dL Normal 7-18 [facility] Comment on above: Performed By: #### M 100.678 #### [facility] [address] [place], [address] CBC W/Diff, Automatedon 12-16 PATH REV Reviewed Normal [facility] Comment on above: Result Comment: Neut rophilic leukocytosis. Polycythemia. Clinical correlation necessary. Lopez Valero M.D. 01/03/24 AMENDED REPORT 01/03/24 1316 PATH REV previously reported as: October Performed By: #### L 501.2450, L100.0100, L503.6005, L500.4050 #### [facility] [address] [place], [address] Absolute Lymph 0.48 X10 3/uL Low 0.83-4.51 [facility] Comment on above: Performed By: #### M 100.678 #### [facility] [address] [place], [address] Absolute Neut 10.0 X10 3/uL High 2.0-7.7 [facility] Comment on above: Performed By: #### M 100.678 #### [facility] [address] [place], [address] Basophils/100 WBC (Bld) 0.4 % Normal 0-1 [facility] Comment on above: Performed By: #### M 100.678 #### [facility] [address] [place], [address] Eosinophils/100 WBC (Bld) 0.1 % Normal 0-5 [facility] Comment on above: Performed By: #### M 100.678 #### [facility] [address] [place], [address] Erythrocyte distribution width (RBC) [Ratio] 14.6 % Normal 11.6-14.6 [facility] Comment on above: Performed By: #### M 100.678 #### [facility] [address] [place], [address] Hematocrit (Bld) [Volume fraction] 48.9 % Normal 40-54 [facility] Comment on above: Performed By: #### M 100.678 #### [facility] [address] [place], [address] Hemoglobin (Bld) [Mass/Vol] 16.2 g/dL Normal 13.0-16.5 [facility] Comment on above: Performed By: #### M 100.678 #### [facility] [address] [place], [address] IG% 0.500 Normal 0.0-0.9 [facility] Comment on above: Result Comment: IG% - Immature Granulocytes (promyelocytes, myelocytes and metamyelocytes) > 1% indicates that a LEFT SHIFT is Present. Performed By: #### M 100.678 #### [facility] [address] [place], [address] Lymphocytes/100 WBC (Bld) 4.4 % Low 19-41 [facility] Comment on above: Performed By: #### M 100.678 #### [facility] [address] [place], [address] MCH (RBC) [Entitic mass] 30.8 pg Normal 27.0-32.0 [facility] Comment on above: Performed By: #### M 100.678 #### [facility] [address] [place], [address] MCHC (RBC) [Mass/Vol] 33.1 g/dL Normal 32-36 [facility] Comment on above: Performed By: #### M 100.678 #### [facility] [address] [place], [address] MCV (RBC) [Entitic vol] 93.0 fL Normal 80-94 [facility] Comment on above: Performed By: #### M 100.678 #### [facility] [address] [place], [address] Monocytes/100 WBC (Bld) 3.1 % Normal 0-10 [facility] Comment on above: Performed By: #### M 100.678 #### [facility] [address] [place], [address] Neutrophils/100 WBC (Bld) 91.5 % High 47-70 [facility] Comment on above: Performed By: #### M 100.678 #### [facility] [address] [place], [address] Nucleated RBC (Bld) [#/Vol] 0 10*3/uL Normal 0-5 [facility] Comment on above: Performed By: #### M 100.678 #### [facility] [address] [place], [address] Platelet mean volume (Bld) [Entitic vol] 10.8 fL Normal 6.2-12.0 [facility] Comment on above: Performed By: #### M 100.678 #### [facility] [address] [place], [address] Platelets (Bld) [#/Vol] 105 10*3/uL Low 150-450 [facility] Comment on above: Performed By: #### M 100.678 #### [facility] [address] [place], [address] RBC (Bld) [#/Vol] 5.26 10*6/uL Normal 4.6-6.2 [facility] Comment on above: Performed By: #### M 100.678 #### [facility] [address] [place], [address] RDW SD 50.3 fl High 35.1-43.9 [facility] Comment on above: Performed By: #### M 100.678 #### [facility] [address] [place], [address] WBC (Bld) [#/Vol] 11.0 10*3/uL Normal 4.4-11.0 [facility] Comment on above: Performed By: #### M 100.678 #### [facility] [address] [place], [address] Discharge Instructionon 12-16 Discharge Instruction [facility] Medical Records Department [address] [place] [address] Instructions for Home/Discharge Instructions 01/03/24 1158 MR#: [id number] Acct: [id number] Name: MATEUS MANZANO Rep #: [id number] : 1985 38 From: Pop Dahl MD PCP: Dr. Anay Roque MD Status:ADM IN Discharge Instructions Diet Discharge Diet: No restrictions Activity Discharge Activity: Return to Normal Activity Dressing / Incision Call your doctor if you observe: Fever of 101 or Higher, Shortness of breath, Dizziness, Fainting spells, Swelling in the ankles and Increased palpitations (irregular heartbeat) Follow Up Care Test Results: Test results from this visit will be discussed in further detail at your follow-up appointment, if applicable. Discharge Plan Admission Admit Date/Time: 01/02/24 18:52 Attending Provider: Pop Dahl Primary Care Provider: Anay Roque Consulting Providers: Seven Benton Discharge Orders/Prescriptions Prescriptions: New levofloxacin 750 mg Tablet 750 mg PO DAILY 6 Days Qty: 6 0RF Continued morphine 30 MG tablet 15 mg PO Q12H Patient Comments: pain baclofen 20 MG tablet 10 mg PO BID pregabalin [Lyrica] 150 MG capsule 200 mg PO BID Patient Comments: nerve pain Xarelto 20 MG tablet 20 mg PO DAILY Patient Comments: blood thinner tizanidine [Zanaflex] 2 mg Capsule 2 mg PO BID clomiphene citrate [Serophene] 50 mg Tablet 50 mg PO QODAY prednisone 20 MG tablet 60 mg PO DAILY Qty: 15 0RF hydroxyzine pamoate 25 MG capsule 25 mg PO TID PRN PRN (Reason: Anxiety) Qty: 30 0RF Rx Instructions: 1 to 2 tablets 3 times a day as needed for itch diclofenac sodium 50 mg tablet,delayed release (DR/EC) 50 mg PO BID PRN PRN (Reason: pain) Referrals / Follow Up: Anay Roque MD [Primary Care Provider] - Within 1 Week Disposition Disposition (needs filled in before D/C Order can be placed): Home, Self Care 01/03/24 1203 Pop Dahl MD CC: Dr. Anay Roque MD; Dr. Seven Benton DO Signed Normal [facility] 12 Lead EKGon 01-02-2024 12 Lead EKG [facility] Cardiovascular Services [address] [place] [address] 12 Lead EKG 01/02/24 1632 MR#: [id number] Acct: [id number] Name: MATEUS MANZANO Rep #: [id number] : 1985 38 From: Brayden Rizzo MD Attending Dr: Dr. Pop Dahl MD Status : ADM IN Ordering Dr: Inder Lauren DO Date: 01/02/24 Location: [facility] Sex: M C Admitted: 01/02/24 Test Reason : FEVER Blood Pressure : / mmHG Vent. Rate : 149 BPM Atrial Rate : 149 BPM P-R Int : 154 ms QRS Dur : 068 ms QT Int : 230 ms P-R-T Axes : 046 -06 032 degrees QTc Int : 362 ms Sinus tachycardia Otherwise normal ECG Confirmed by HEIDY KIRKLAND, BRAYDEN ([id number]), editorial intern WILDER KITCHEN ([id number]) on 01/03/2024 1:02:03 PM Referred By: Confirmed By:BRAYDEN RIZZO MD 01/03/24 1302 Date Brayden Rizzo MD CC: Dr. Anay Roque MD; Dr. Pop Dahl MD; Dr. Inder Lauren DO Signed Normal [facility] Abdomen/Pelvis without Conto n 01-02-2024 Abdomen/Pelvis without Cont [facility] Imaging Services [address] [place] [address] Abdomen/Pelvis without Cont MR#: [id number] Acct: [id number] Name: MATEUS MANZANO Rep #: [id number] : 1985 M 38 From: Deep Wade MD PCP: Dr. Anay Roque MD Status: REG ER Study: Abdomen/Pelvis without Cont Date of Exam: 12/16 01/08 Exam# [id number] Ordering Dr: Inder Lauren DO [id number] EXAM: CT ABDOMEN AND PELVIS WITHOUT INTRAVENOUS CONTRAST CLINICAL INDICATION: flank pain r/o nephrolithiasis TECHNIQUE: Helically acquired images were obtained of the abdomen and pelvis without intravenous contrast. This CT exam was performed using one or more of the following dose reduction techniques: automated exposure control, adjustment of the mA and/or kV according to patient size, and/or use of iterative reconstruction technique. COMPARISON: 02/18/2021 FINDINGS: LOWER THORAX: Unremarkable. Lung bases are clear. No cardiomegaly. No significant pericardial effusion. ABDOMEN: LIVER: Unremarkable. Homogeneous. GALLBLADDER AND BILE DUCTS: There are multiple tiny gallstones which are stable. There is no inflammation. No gallbladder distention or wall edema. No intra- or extrahepatic biliary ductal dilation. PANCREAS: Unremarkable. No focal cystic mass. SPLEEN: Unremarkable. Normal size without focal cystic or solid mass. ADRENALS: Unremarkable. No nodules. KIDNEYS AND URETERS: Unremarkable. Normal renal size and position. No hydronephrosis. STOMACH AND BOWEL: Unremarkable. No stomach or bowel distention. No focal inflammatory change. PELVIS: APPENDIX: No evidence of acute appendicitis. BLADDER: There is a Booker catheter in the bladder. REPRODUCTIVE: Unremarkable as visualized. No mass. ABDOMEN and PELVIS: INTRAPERITONEAL SPACE: Unremarkable. No ascites or other fluid collection. No free air. BONES/JOINTS: Unremarkable. No suspicious lytic or blastic abnormality. SOFT TISSUES: See below. VASCULATURE: There is an inferior vena cava filter in place. An IVC filter is present. Assess if there is a management plan in place for the IVC filter.If there is no established management plan, refer the patient to an interventional clinician on a nonemergent basis for evaluation. Abdominal aorta is non-dilated. LYMPH NODES: Unremarkable. No enlarged lymph nodes. TUBES, LINES AND DEVICES: There is mechanical device in the subcutaneous tissues over the right lower abdomen. CT/Abdomen/Pelvis without Cont IMPRESSION: No acute abnormalities in the abdomen or pelvis. There has been no significant change from the reference exam. There is cholelithiasis with no evidence of cholecystitis. Electronically Signed: Deep Wade MD at 18:22 EDT , CC: Dr. Anay Roque MD; Dr. Inder Lauren DO Senior [employer]: Signed Normal [facility] Chest 1 View (Portable)on Chest 1 View (Portable) [facility] Imaging Services [address] [place], [place] [address] Chest 1 View (Portable) MR#: [id number] Acct: [id number] Name: MATEUS MANZANO Rep #: [id number] : 1985 M 38 From: Deep Wade MD PCP: Dr. Anay Roque MD Status: REG ER Study: Chest 1 View (Portable) Date of Exam: 01/02/24 Exam# [id number] Ordering Dr: Inder Lauren DO [id number] EXAM: XR CHEST, 1 VIEW CLINICAL INDICATION: fever TECHNIQUE: Frontal view of the chest. COMPARISON: 02/18/2021 FINDINGS: LUNGS AND PLEURAL SPACES: There is mild bibasilar airspace disease. No pneumothorax. No effusion. HEART: Unremarkable. Cardiac silhouette not enlarged. MEDIASTINUM: Central airways and mediastinal contour are unremarkable. BONES/JOINTS: Unremarkable. No acute fracture. SOFT TISSUES: Unremarkable. RAD/Chest 1 View (Portable) IMPRESSION: Bibasilar airspace disease which may represent atelectasis or early bilateral lower lobe pneumonia. Electronically Signed: Deep Wade MD at 18:23 EDT , CC: Dr. Anay Roque MD; Dr. Inder Lauren DO Senior [employer]: Signed Normal [facility] Comprehensive Metabolic Prof ilon 01-02-2024 Albumin [Mass/Vol] 3.8 g/dL Normal 3.2-5.0 [facility] Comment on above: Performed By: #### M 300.4500 #### [facility] [address] [place], [address] Albumin/Globulin [Mass ratio] 0.9 {ratio} Normal 0.9-2.4 [facility] Comment on above: Performed By: #### M 300.4500 #### [facility] [address] [place], [address] ALK P 93 U/L Normal 45-117 [facility] Comment on above: Performed By: #### M 300.4500 #### [facility] [address] [place], [address] ALT [Catalytic activity/Vol] 49 U/L Normal 16-61 [facility] Comment on above: Performed By: #### M 300.4500 #### [facility] [address] [place], [address] AST [Catalytic activity/Vol] 25 U/L Normal 15-37 [facility] Comment on above: Performed By: #### M 300.4500 #### [facility] [address] [place], [address] Bilirubin [Mass/Vol] 0.90 mg/dL Normal 0.20-1.00 [facility] Comment on above: Result Comment: For patients on eltrombopag therapy, use of Dimension [place] TBIL is not recommended. Performed By: #### M 300.4500 #### [facility] [address] [place], [address] BUN/CRE 8.3 RATIO Low 10-20 [facility] Comment on above: Performed By: #### M 300.4500 #### [facility] [address] [place], [address] CA,Total 9.3 mg/dL Normal 8.5-10.1 [facility] Comment on above: Performed By: #### M 300.4500 #### [facility] [address] [place], [address] Chloride [Moles/Vol] 105 mmol/L Normal 98-107 [facility] Comment on above: Performed By: #### M 300.4500 #### [facility] [address] [place], [address] CO2 [Moles/Vol] 28.0 mmol/L Normal 21.0-32.0 [facility] Comment on above: Performed By: #### M 300.4500 #### [facility] [address] [place], [address] Creatinine [Mass/Vol] 1.08 mg/dL Normal 0.70-1.30 [facility] Comment on above: Result Comment: The validity of the calculated GFR GFRAA in patients over 70 years has not been determined. Clinical correlation is essential. Performed By: #### M 300.4500 #### [facility] [address] [place], [address] EST GFR - AA 98 mL/min Normal >60 [facility] Comment on above: Result Comment: Afri can Cypriot GFR Calc Performed By: #### M 300.4500 #### [facility] [address] [place], [address] GAP 4 Low 5-15 [facility] Comment on above: Performed By: #### M 300.4500 #### [facility] [address] [place], [address] GFR/1.73 sq M.predicted among non-blacks MDRD (S/P/Bld) [Vol rate/Area] 81 mL/min/{1.73_m2} Normal >60 [facility] Comment on above: Result Comment: Non- GFR Calc Performed By: #### M 300.4500 #### [facility] [address] [place], [address] Globulin (S) [Mass/Vol] 4.4 g/dL High 2.2-4.2 [facility] Comment on above: Performed By: #### M 300.4500 #### [facility] [address] [place], [address] Glucose [Mass/Vol] 96 mg/dL Normal 74-106 [facility] Comment on above: Performed By: #### M 300.4500 #### [facility] [address] [place], [address] Potassium [Moles/Vol] 3.8 mmol/L Normal 3.5-5.1 [facility] Comment on above: Performed By: #### M 300.4500 #### [facility] [address] [place], [address] Sodium [Moles/Vol] 137 mmol/L Normal 136-145 [facility] Comment on above: Performed By: #### M 300.4500 #### [facility] [address] [place], [address] T PROT 8.2 g/dL Normal 6.4-8.2 [facility] Comment on above: Performed By: #### M 300.4500 #### [facility] [address] [place], [address] Urea nitrogen [Mass/Vol] 9 mg/dL Normal 7-18 [facility] Comment on above: Performed By: #### M 300.4500 #### [facility] [address] [place], [address] Emergency Department Summary on 01-02-2024 Emergency Department Summary [facility] Medical Records Department [address] [place] [address] Emergency Department Summary 01/02/24 MR#: [id number] Acct: [id number] Name: MATEUS MANZANO Rep #: [id number] : 1985 38 From: Inder Lauren DO PCP: Dr. Anay Roque MD Status:REG ER Location: ED HPI History of Present Illness Chief Complaint: Complaint PFSH PFS Medical History Abscess Paraplegia Home Medications ???Medication ???Instructions ???Recorded ???Last Taken ???Type baclofen 20 mg tablet 10 mg PO BID 03/18/13 Unknown History morphine 30 mg tablet,extended 15 mg PO Q12H 03/18/13 Unknown History release pregabalin 150 mg capsule (Lyrica) 200 mg PO BID 08/31/15 Unknown History rivaroxaban 20 mg tablet (Xarelto) 20 mg PO DAILY 08/31/15 Unknown History tizanidine 2 mg capsule (Zanaflex) 2 mg PO BID 02/18/21 Unknown History cabergoline 0.5 mg tablet 0.5 mg PO MOTH 11/14/21 Unknown History clomiphene citrate 50 mg tablet 50 mg PO QODAY 11/14/21 Unknown History (Serophene) hydroxyzine pamoate 25 mg capsule 25 mg PO TID PRN PRN Anxiety #30 11/14/21 Unknown Rx caps prednisone 20 mg tablet 60 mg (3 x 20 mg) PO DAILY #15 tabs 11/14/21 Unknown Rx sulfamethoxazole 800 1 tab PO Q12H #20 tabs 11/14/21 Unknown Rx mg-trimethoprim 160 mg tablet (Bactrim DS) Allergy/AdvReac Type Severity Reaction Status Date / Time codeine Allergy Other Verified 01/02/24 16:11 piperacillin sodium (From Allergy Hives Verified 01/02/24 16:11 Zosyn) tazobactam sodium (From Allergy Hives Verified 01/02/24 16:11 Zosyn) acetaminophen (From Vicodin) AdvReac Other Verified 01/02/24 16:11 hydrocodone bitartrate (From AdvReac Other Verified 01/02/24 16:11 Vicodin) Social History Smoking Status: Current some day smoker tobacco type: cigarettes EXAM Physical Exam Const Vital Signs: 01/02/24 16:11 01/02/24 16:14 01/02/24 16:31 Temperature 102.9 F H 102.4 F H 103.9 F H Temperature Source Temporal Core Axillary Pulse Rate 165 H 138 H Respiratory Rate 24 H 26 H Blood Pressure 149/74 H 137/77 H Blood Pressure Mean 99 97 Pulse Ox 93 90 Oxygen Delivery Method Room Air Nasal Cannula Oxygen Flow Rate (L/min) 2 01/02/24 17:14 01/02/24 18:00 01/02/24 18:00 Temperature 104.1 F H 103.4 F H 103.4 F H Temperature Source Core Core Core Pulse Rate 122 H 115 H 113 H Respiratory Rate 17 18 22 H Blood Pressure 116/60 114/57 L 114/57 L Blood Pressure Mean 78 76 76 Pulse Ox 96 95 97 Oxygen Delivery Method Nasal Cannula Room Air Nasal Cannula Oxygen Flow Rate (L/min) 5 5 MDM MDM MDM Narrative Medical decision making narrative: HISTORY OF PRESENT ILLNESS: 38-year-old male presents with fever, back pain began suddenly this afternoon. Denies any sick contacts. Notes nausea but no vomiting. Family states patient is a history of epidural abscess and paraplegia. Patient denies abdominal pain. Patient denies bowel or bladder incontinence, IV drug use, urinary retention. REVIEW OF SYSTEMS: Pertinent positives: Nausea, shortness of breath, back pain, fatigue Pertinent negatives: Vomiting, chest pain, new focal neurologic deficits, IV drug use PHYSICAL EXAM: Nursing triage notes reviewed, Vital signs reviewed Constitutional: please see mdm HENT: MMM Eyes: Pupils equal round and reactive to light, Extraocular muscles intact Neck: No stridor, no JVD, full neck ROM Lungs: Clear to auscultation, No wheezing or rales. No increased work of breathing, no conversational dyspnea, no accessory muscle use, no nasal flaring. No respiratory distress noted Heart: Regular rate and rhythm, No murmurs, No rubs and No gallops, 2+ distal pulses (radial, femoral, posterior tibial) in all extremities Abdomen: Soft, there is no tenderness, rigidity, rebound or guarding, no obvious peritoneal signs, no palpable pulsatile abdominal masses, no auscultated abdominal bruit : No CVAT Extremities: No edema Neuro: Intact and sensation bilateral upper extremities, chronic weakness noted in bilateral lower extremities, Skin: No rash or lesions noted MEDICAL DECISION MAKING: Chief Complaint: Fever, back pain External records reviewed: Last ED visit 2021 Factors affecting care: n epidural abscess, paraplegia Social determinants of health: Denies IV drug use History obtained from others: patient's and child Consults: n internal medicine (Dr. Benton) MDM Narrative: Patient is initially febrile, tachycardic rate of 165, tachypneic saturating 90% on room air. He was placed on 2 L nasal cannula. Large-bore IVs were placed. Fluid cessation was initiated. I co (more content not included)... Normal [facility] H AND P Exam - Hospitaliston 01-02-2024 H&P Exam - Hospitalist [facility] Medical Records Department [address] [place] [address] H P Exam - Hospitalist 01/02/244 MR#: [id number] Acct: [id number] Name: MATEUS MANZANO Rep #: [id number] : 1985 38 From: Seven Benton DO PCP: Dr. Anay Roque MD Status:ADM IN Location: [place] [address] HPI - General General Date of Admission: 01/02/24 Date of Service: 01/02/24 Chief Complaint: Shortness of breath and fever HPI Narrative MATEUS MANZANO, is a 38 M who presents from home with shortness of breath and fever. Patient was having some back pain. Patient was feeling okay until today where he became very lethargic, febrile and dyspneic. Presented to the emergency room and he underwent a workup that showed that he had bilateral pneumonia. He was febrile with a temp of 40.1 Celsius, tachycardic in the 120s, tachypneic to 26. He received vancomycin and cefepime in the emergency room. Patient has not been hospitalized anywhere recently. Patient has never had pneumonia before. [facility] Medical History (Updated 01/02/24 @ 19:[address] Seven Benton DO) Smoker MTHFR mutation Factor 5 Leiden mutation, heterozygous Low testosterone in male Abscess Paraplegia Home Medications ???Medication ???Instructions ???Recorded ???Last Taken ???Type baclofen 20 mg tablet 10 mg PO BID 03/18/13 Unknown History morphine 30 mg tablet,extended 15 mg PO Q12H 03/18/13 Unknown History release pregabalin 150 mg capsule (Lyrica) 200 mg PO BID 08/31/15 Unknown History rivaroxaban 20 mg tablet (Xarelto) 20 mg PO DAILY 08/31/15 Unknown History tizanidine 2 mg capsule (Zanaflex) 2 mg PO BID 02/18/21 Unknown History cabergoline 0.5 mg tablet 0.5 mg PO MOTH 11/14/21 Unknown History clomiphene citrate 50 mg tablet 50 mg PO QODAY 11/14/21 Unknown History (Serophene) hydroxyzine pamoate 25 mg capsule 25 mg PO TID PRN PRN Anxiety #30 11/14/21 Unknown Rx caps prednisone 20 mg tablet 60 mg (3 x 20 mg) PO DAILY #15 tabs 11/14/21 Unknown Rx sulfamethoxazole 800 1 tab PO Q12H #20 tabs 11/14/21 Unknown Rx mg-trimethoprim 160 mg tablet (Bactrim DS) Allergy/AdvReac Type Severity Reaction Status Date / Time codeine Allergy Other Verified 01/02/24 16:11 piperacillin sodium (From Allergy Hives Verified 01/02/24 16:11 Zosyn) tazobactam sodium (From Allergy Hives Verified 01/02/24 16:11 Zosyn) acetaminophen (From Vicodin) AdvReac Other Verified 01/02/24 16:11 hydrocodone bitartrate (From AdvReac Other Verified 01/02/24 16:11 Vicodin) Family History no significant family his no significant family history Social History Smoking Status: Current some day smoker tobacco type: cigarettes ROS ROS Narrative Patient had some recent back pain and was started on a Medrol Dosepak. Coughing, nonproductive. Paraplegic. He is a wheelchair. All review of systems were negative except as mentioned above in the history of present illness and the other review of systems. Vital Signs Vital Signs Vital Signs: 01/02/24 16:11 01/02/24 16:14 01/02/24 16:31 Temperature 39.4 C H 39.1 C H 39.9 C H Temperature Source Temporal Core Axillary Pulse Rate 165 H 138 H Respiratory Rate 24 H 26 H Blood Pressure 149/74 H 137/77 H Blood Pressure Mean 99 97 Pulse Ox 93 90 Oxygen Delivery Method Room Air Nasal Cannula Oxygen Flow Rate (L/min) 2 01/02/24 17:14 01/02/24 18:00 01/02/24 18:00 Temperature 40.1 C H 39.7 C H 39.7 C H Temperature Source Core Core Core Pulse Rate 122 H 115 H 113 H Respiratory Rate 17 18 22 H Blood Pressure 116/60 114/57 L 114/57 L Blood Pressure Mean 78 76 76 Pulse Ox 96 95 97 Oxygen Delivery Method Nasal Cannula Room Air Nasal Cannula Oxygen Flow Rate (L/min) 5 5 01/02/24 19:00 01/02/24 19:06 01/02/24 19:12 Temperature 39.1 C H 39.1 C H Temperature Source Core Pulse Rate 117 H 117 H 109 H Respiratory Rate 26 H 22 H 20 H Blood Pressure 111/65 111/65 102/57 L Blood Pressure Mean 80 80 72 Pulse Ox 97 93 95 Oxygen Delivery Method Nasal Cannula Nasal Cannula Oxygen Flow Rate (L/min) 5 4 Physical Exam Const alert and no apparent distress Constitutional Narrative: Listless. Febrile General Appearance: cooperative HEENT normocephalic Neck no lymphadenopathy Neck Narrative: No thyromegaly Resp normal respiratory effort and no retractions Resp Narrative: Bibasilar crackles Cardio regular rate, regular rhythm, S1 normal heart sound and S2 normal heart sound GI normal to inspection, nondistended, normoactive bowel sounds, soft to palpation, non-tender, non- distended and hepatosplenomegaly Extremity normal to inspection Skin Skin Narrative: Numerous tattoos throughou (more content not included)... Normal [facility] Lactic Acidon 01-02-2024 Lactate [Moles/Vol] 1.7 mmol/L Normal 0.4-1.9 [facility] Comment on above: Order Comment: Y Performed By: #### M 560.1926 #### [facility] [address] [place], [address] Legionella Antigen Urineon 0 01-02-2024 LEGU Only Recommended for severe cases of pneumonia URINE, CATHETER Legionella Antigen result interpretation: L pneumo Ag Ur Ql Negative Presumptive negative for Legionella pneumophila serogroup 1 antigen in urine, suggesting no recent or current infection. Legionella Ag, Urine Negative (See interpretation below) Normal [facility] Comment on above: Performed By: #### M 300.4500 #### [facility] [address] [place], [address] Lipaseon 01-02-2024 Lipase [Catalytic activity/Vol] 19 U/L Normal 13-75 [facility] Comment on above: Result Comment: Scott prado note: LIPASE revised reference range effective 22. New Lipase methodology. Expected to produce lower values than the previous assay method. NEW Reference Range: 13 - 75 U/L Performed By: #### M 300.4500 #### [facility] [address] [place], [address] M100.678on 01-02-2024 M100.678 SARS-CoV-2 (COVID 19 ) Negative INFLUENZA A Negative INFLUENZA B Negative RSV PCR Negative Normal [facility] Comment on above: Performed By: #### M 100.678 #### [facility] [address] [place], [address] Spine Lumbar without Contras ton 01-02-2024 Spine Lumbar without Contrast [facility] Services [address] [place] [address] Spine Lumbar without Contrast MR#: [id number] Acct: [id number] Name: MATEUS MANZANO Rep #: [id number] : 1985 M 38 From: Deep Wade MD PCP: Dr. Anay Roque MD Status: DIS IN Study: Spine Lumbar without Contrast Date of Exam: Exam# [id number] Ordering Dr: Inder Lauren DO [id number] EXAM: CT LUMBAR SPINE WITHOUT INTRAVENOUS CONTRAST CLINICAL INDICATION: back pain TECHNIQUE: Helically acquired images were obtained of the lumbar spine without intravenous contrast. 2D reformats were reviewed. This CT exam was performed using one or more of the following dose reduction techniques: automated exposure control, adjustment of the mA and/or kV according to patient size, and/or use of iterative reconstruction technique. COMPARISON: No relevant prior studies available. FINDINGS: VERTEBRAE: Unremarkable. No fracture. No traumatic subluxation. No discrete lytic or blastic abnormality. Normal alignment. DISCS/SPINAL CANAL/NEURAL FORAMINA: Unremarkable. Disc heights are preserved. No critical stenosis. VASCULATURE: Visualized abdominal aorta is not dilated. LYMPH NODES: Unremarkable. No retroperitoneal adenopathy. TUBES, LINES AND DEVICES: There is a small intrathecal catheter present in the central canal. CT/Spine Lumbar without Contrast IMPRESSION: No acute findings in the lumbar spine. Electronically Signed: Deep Wade MD at 18:27 EDT , CC: Dr. Anay Roque MD; Dr. Inder Lauren, [employer]: Signed Normal [facility] Strep pneumoniae Antig(UR,CS F)on 01-02-2024 STPAG Comments: Only Recom mended for severe cases of pneumonia URINE INTERPRETATION Strep pneumoniae Antig(UR,CSF) Strep pneumoniae Antig(UR,CSF) Negative Urine Presumptive negative for pneumococcal pneumonia, suggesting no current or recent pneumococcal infection. Infection due to S pneumoniae cannot be ruled out since the antigen present in the sample may be below the detection limit of the test. Strep pneumo Test Negative URINE (See interpretation below) Normal [facility] Comment on above: Performed By: #### M 300.4500 #### [facility] [address] [place], [place], [address] Urinalysis, Completeon 01-01 BACTERIA 1+ /hpf Normal None Seen [facility] Comment on above: Order Comment: CLEAN CATCH Performed By: #### L 400.0001, M100.2200 #### [facility] [address] [place], [address] RBC 0-5 SEEN Normal 0-5 [facility] Comment on above: Order Comment: CLEAN CATCH Performed By: #### L 400.0001, M100.2200 #### [facility] [address] [place], [address] WBC 0-5 SEEN Normal 0-5 [facility] Comment on above: Order Comment: CLEAN CATCH Performed By: #### L 400.0001, M100.2200 #### [facility] [address] [place], [address] EPI,SQUAMOUS 0 SEEN Normal 0-5 [facility] Comment on above: Order Comment: CLEAN CATCH Performed By: #### L 400.0001, M100.2200 #### [facility] [address] [place], [address] Mucus Ql (Urine sed) 0 SEEN Normal [facility] Comment on above: Order Comment: CLEAN CATCH Performed By: #### L 400.0001, M100.2200 #### [facility] [address] [place], [address] UA DIP, URINE (POC)on 2023 BILIRUBIN UA (POCT) Negative Negative [facility] CLARITY UA (POCT) Clear [facility] COLOR UA (POCT) Yellow [facility] GLUCOSE UA (POCT) Negative Negative mg/dL [facility] Hemoglobin Ql (U) [facility] UA (POCT) Negative Negative mg/dL [facility] LEUKOCYTES UA (POCT) Negative Negative [facility] NITRITE UA (POCT) Negative Negative [facility] PH UA (POCT) 7.0 4.5 - 8.0 [facility] Protein Ql (U) Negative Negative mg/dL [facility] SPECIFIC GRAVITY UA (POCT) 1.020 1.005 - 1.030 [facility] UROBILINOGEN UA (POCT) 1.0 E.U./dL Lisa l E.U./dL [facility] UA DIP, URINE (POC)on 2022 BILIRUBIN UA (POCT) Negative Negative [facility] CLARITY UA (POCT) [facility] COLOR UA (POCT) Dark yellow [facility] GLUCOSE UA (POCT) Negative Negative mg/dL [facility] Hemoglobin Ql (U) Trace-intact Abnormal Negative [facility] KETONE UA (POCT) Negative Negative mg/dL [facility] LEUKOCYTES UA (POCT) Small Abnormal Negative [facility] NITRITE UA (POCT) Negative Negative [facility] PH UA (POCT) 7.0 4.5 - 8.0 [facility] Protein Ql (U) Negative Negative mg/dL [facility] SPECIFIC GRAVITY UA (POCT) 1.015 1.005 - 1.030 [facility] UROBILINOGEN UA (POCT) 1.0 E.U./dL Lisa l E.U./dL [facility] US ELBOW-INJECTION LT (POC) EARL USE ONLYon 04-20-2023 [facility] COVID NAAT, UPPER RESPIRATOR Y, ROUTINEon 04-14-2023 SARS-CoV-2 (COVID-19) RNA PAUL+probe Ql (Resp) Not detected See comment [facility] INFLUENZA A&B MOLECULAR (POC )on 04-14-2023 Flu A (POCT) Negative Negative [facility] Flu B (POCT) Negative Negative [facility] Procedural Control Valid [facility] ROUTINE FLU A/B + RSVon 03-19 FLUAV RNA PAUL+probe Ql (Unsp spec) Not detected Not Detected [facility] FLUBV RNA PAUL+probe Ql (Unsp spec) Not detected Not Detected [facility] RSV A RNA PAUL+probe Ql (Unsp spec) Not detected Not Detected [facility] UA DIP, URINE (POC)on 2022 BILIRUBIN UA (POCT) Small Abnormal Negative [facility] CLARITY UA (POCT) Clear [facility] COLOR UA (POCT) [place] [facility] GLUCOSE UA (POCT) Negative Negative mg/dL [facility] Hemoglobin Ql (U) Negative Negative [facility] KETONE UA (POCT) Negative Negative mg/dL [facility] LEUKOCYTES UA (POCT) Negative Negative [facility] NITRITE [facility]A (POCT) Negative Negative [facility] PH UA (POCT) 8.5 Abnormal 4.5 - 8.0 [facility] Protein Ql (U) 30 mg/dL Abnormal Negative mg/dL [facility] SPECIFIC GRAVITY UA (POCT) 1.015 1.005 - 1.030 [facility] UROBILINOGEN UA (POCT) 4.0 E.U./dL Abnormal Lisa l E.U./dL [facility] XR CHEST 2V FRONTAL/LATon [facility] XR Chest PA and Lateralon IMPRESSION: No acute radiographic abnormality. [employer]: [employer] Transcribe Date/Time: Apr 14 2023 11:15A Dictated by : ALDEN GAO MD This examination was interpreted and the report reviewed and electronically signed by: ALDEN GAO MD on Apr 14 2023 11:15AM [facility] DIVISION OF RADIOLOGY * * *Final Report* * * DATE OF EXAM: Apr 14 2023 10:43AM WOX [id number] - XR CHEST 2V FRONTAL/LAT / PROCEDURE REASON: Fever, unspecified fever cause * * * * Physician Interpretation * * * * EXAMINATION: CHEST RADIOGRAPH (2 VIEW FRONTAL & LATERAL) CLINICAL HISTORY: Fever, unspecified fever cause MQ: XC2_6 EXAM DATE/TIME: 04/14/2023 10:43 AM COMPARISON: 01/07/2022 RESULT: Lines, tubes, and devices: None. Lungs and pleura: No consolidation. No lung mass. No pleural effusion. No pneumothorax. Cardiomediastinal silhouette: Normal cardiomediastinal silhouette. Bones and soft tissues: Unremarkable. DIVISION OF RADIOLOGY Provider, [facility] - 04/14/2023 * * *Final Report* * * DATE OF EXAM: Apr 14 2023 10:43AM WOX [id number] - XR CHEST 2V FRONTAL/LAT / PROCEDURE REASON: Fever, unspecified fever cause * * * * Physician Interpretation * * * * EXAMINATION: CHEST RADIOGRAPH (2 VIEW FRONTAL & LATERAL) CLINICAL HISTORY: Fever, unspecified fever cause MQ: XC2_6 EXAM DATE/TIME: 04/14/2023 10:43 AM COMPARISON: 01/07/2022 RESULT: Lines, tubes, and devices: None. Lungs and pleura: No consolidation. No lung mass. No pleural effusion. No pneumothorax. Cardiomediastinal silhouette: Normal cardiomediastinal silhouette. Bones and soft tissues: Unremarkable. IMPRESSION IMPRESSION: No acute radiographic abnormality. [employer]: [employer] Transcribe Date/Time: Apr 14 2023 11:15A Dictated by : ALDEN GAO MD This examination was interpreted and the report reviewed and electronically signed by: ALDEN GAO MD on Apr 14 2023 11:15AM EST [facility] Radiology Study observation (narrative) [facility] XR Chest PA and LateralOrder ed By: [facility] Provider on 04-14-2023 [facility] UA DIP, URINE (POC)on 2022 BILIRUBIN UA (POCT) Negative Negative [facility] CLARITY UA (POCT) Cloudy [facility] COLOR UA (POCT) Dark yellow [facility] GLUCOSE UA (POCT) Negative Negative mg/dL [facility] Hemoglobin Ql (U) Trace-intact Abnormal Negative [facility] KETONE UA (POCT) Negative Negative mg/dL [facility] LEUKOCYTES UA (POCT) Small Abnormal Negative [facility] NITRITE UA (POCT) Positive Abnormal Negative [facility] PH UA (POCT) 6.5 4.5 - 8.0 [facility] Protein Ql (U) Negative Negative mg/dL [facility] SPECIFIC GRAVITY UA (POCT) 1.020 1.005 - 1.030 [facility] UROBILINOGEN UA (POCT) 0.2 E.U./dL Lisa l E.U./dL [facility] US LOWER EXTREMITY RIGHT (PO C) FOR RHM USE ONLYon 01-08-2023 [facility] US ELBOW-INJECTION LT (POC) EARL USE ONLYon 12-11-2022 [facility] US LOWER EXTREMITY RIGHT (PO C) FOR RHM USE ONLYon 10-02-2022 [facility] UA DIP, URINE (POC)on 2022 BILIRUBIN UA (POCT) Negative Negative [facility] CLARITY UA (POCT) Clear [facility] COLOR UA (POCT) Yellow [facility] GLUCOSE UA (POCT) Negative Negative mg/dL [facility] HEMOGLOBIN/BLOOD UA (POCT) Negative Negative [facility] KETONE UA (POCT) Negative Negative mg/dL [facility] LEUKOCYTES UA (POCT) Negative Negative [facility] NITRITE UA (POCT) Negative Negative [facility] PH UA (POCT) 7.0 4.5 - 8.0 [facility] Protein Ql (U) Negative Negative mg/dL [facility] SPECIFIC GRAVITY UA (POCT) 1.015 1.005 - 1.030 [facility] UROBILINOGEN UA (POCT) 0.2 E.U./dL Lisa l E.U./dL [facility] US LOWER EXTREMITY RIGHT (PO C) FOR RHM USE ONLYon 07-10-2022 [facility] URINE CULTUREon 06-16-2022 Bacteria identified Cx Nom (U) 10,000 -<50,000 CFU/ml Escherichia coli Abnormal [facility] No Panel Informationon 06-14 [facility] UA DIP, URINE (POC)on 2021 BILIRUBIN UA (POCT) Small Abnormal Negative [facility] CLARITY UA (POCT) Cloudy [facility] COLOR UA (POCT) Dark yellow [facility] GLUCOSE UA (POCT) Negative Negative mg/dL [facility] HEMOGLOBIN/BLOOD UA (POCT) Moderate Abnormal Negative [facility] KETONE UA (POCT) Trace Negative mg/dL [facility] LEUKOCYTES UA (POCT) Small Abnormal Negative [facility] NITRITE UA (POCT) Negative Negative [facility] PH UA (POCT) 5.5 4.5 - 8.0 [facility] Protein Ql (U) 100 mg/dL Abnormal Negative mg/dL [facility] SPECIFIC GRAVITY UA (POCT) 1.025 1.005 - 1.030 [facility] UROBILINOGEN UA (POCT) 1.0 E.U./dL Lisa l E.U./dL [facility] URINE CULTUREon 06-14-2022 Bacteria identified Cx Nom (U) Invalid Interpretation Code [facility] US DOPPLER COMPLETEon 2021 US DOPPLER COMPLETE * * *Final Report* * * DATE OF EXAM: Jun 14 2022 3:24PM XI 1033 - US DOPPLER COMPLETE / PROCEDURE REASON: N50.89-Testicle swelling * * * * Physician Interpretation * * * * EXAMINATION: SCROTAL ULTRASOUND WITH DOPPLER IMAGING CLINICAL HISTORY: Testicle swelling TECHNIQUE: Sonography of the scrotal contents with color flow and spectral Doppler imaging of the testicular vasculature was performed. Images were obtained and stored in a permanent archive. M: [facility] COMPARISON: None RESULT: RIGHT SCROTUM: Right testis: 4.9 x 3.6 x 1.8 cm. Homogeneous with no calcifications or mass. Normal intratesticular arterial and venous flow with normal spectral waveforms. Epididymis: Normal. Vascular flow on Color Doppler is unremarkable. Hydrocele: physiologic fluid present Varicocele: absent LEFT SCROTUM: Left testis: 4.6 x 3.1 x 2.7 cm. Homogeneous with no calcifications or mass. Normal intratesticular arterial and venous flow with normal spectral waveforms. Epididymis: Normal size but hyperemic epididymal head. Prominent epididymal body. No color Doppler images of epididymal body to evaluate. The epididymal tail is enlarged and hyperemic. There is a collection within or adjacent to the epididymal tail, 8 x 8 x 6 mm with a fluid-debris level. Along the periphery of the body and tail is nonshadowing hyperemic density or component of the epididymis. Hydrocele: small present. Low amplitude internal echoes. Varicocele: absent Thickening of the scrotal wall IMPRESSION: Left epididymitis with 6 mm collection within or adjacent to the epididymal tail suggesting small abscess cavity. Small complex LEFT hydrocele. Hyperechogenicity along the periphery of the LEFT epididymis could be due to remote epididymitis or might represent calcification from remote hemorrhage. No findings suggestive of orchitis. [employer]: [facility] Transcribe Date/Time: Jun 14 2022 3:36P Dictated by : RUBENS ASCENCIO MD This examination was interpreted and the report reviewed and electronically signed by: RUBENS SACENCIO MD on Jun 14 2022 3:48PM EST [id number] [facility] US SCROTUM AND CONTENTSon US SCROTUM AND CONTENTS * * *Final Report* * * DATE OF EXAM: Jun 14 2022 3:24PM U 1063 - US SCROTUM AND CONTENTS / PROCEDURE REASON: N50.89-Testicle swelling * * * * Physician Interpretation * * * * EXAMINATION: SCROTAL ULTRASOUND WITH DOPPLER IMAGING CLINICAL HISTORY: Testicle swelling TECHNIQUE: Sonography of the scrotal contents with color flow and spectral Doppler imaging of the testicular vasculature was performed. Images were obtained and stored in a permanent archive. M: US_2 COMPARISON: None RESULT: RIGHT SCROTUM: Right testis: 4.9 x 3.6 x 1.8 cm. Homogeneous with no calcifications or mass. Normal intratesticular arterial and venous flow with normal spectral waveforms. Epididymis: Normal. Vascular flow on Color Doppler is unremarkable. Hydrocele: physiologic fluid present Varicocele: absent LEFT SCROTUM: Left testis: 4.6 x 3.1 x 2.7 cm. Homogeneous with no calcifications or mass. Normal intratesticular arterial and venous flow with normal spectral waveforms. Epididymis: Normal size but hyperemic epididymal head. Prominent epididymal body. No color Doppler images of epididymal body to evaluate. The epididymal tail is enlarged and hyperemic. There is a collection within or adjacent to the epididymal tail, 8 x 8 x 6 mm with a fluid-debris level. Along the periphery of the body and tail is nonshadowing hyperemic density or component of the epididymis. Hydrocele: small present. Low amplitude internal echoes. Varicocele: absent Thickening of the scrotal wall IMPRESSION: Left epididymitis with 6 mm collection within or adjacent to the epididymal tail suggesting small abscess cavity. Small complex LEFT hydrocele. Hyperechogenicity along the periphery of the LEFT epididymis could be due to remote epididymitis or might represent calcification from remote hemorrhage. No findings suggestive of orchitis. [employer]: [employer] Transcribe Date/Time: Jun 14 2022 3:36P Dictated by : RUBENS ASCENCIO MD This examination was interpreted and the report reviewed and electronically signed by: RUBENS ASCENCIO MD on Jun 14 2022 3:48PM EST [id number] [facility] ELBOW-INJECTION LT (POC) EARL USE ONLYon 03-27-2022 [facility] CNOVon 02-10-2022 CNOV Office Visit ([facility] ) MATEUS MANZANO ([id number]) 1985 M Date Time Provider Department 02/10/22 9:30 AM [facility] During your visit today, we recorded the following information about you: Temperature Pulse Blood pressure 98.5 degrees 66/minute 124/72 Mary Galvan RN 02/10/2022 2:17 PM Addendum Nursing Documentation Pertinent Medical History: cellulitis, 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, multiple clotting disorders Wound Etiology according to patient: hospitalized with cellulitis Patient arrived via: wheelchair Home Care Company/Nursing Facility: Consent captured for debridement per (Provider) and good until Anticoagulant Therapy:Xarelto ACTIVE CARE PER PROVIDER: WOUND ASSESSMENT: Refer to Provider's Wound Assessment Note VASCULAR ASSESSMENT BY PROVIDER: N/A CHF History: N/A EDEMA: Right foot: 1+ pitting Right calf: 2+ pitting Left foot :trace Left Calf:trace Other: MEASUREMENTS: in cm Right Calf: 39.5 Right Ankle: 25.6 Left Calf: 38.8 Left Ankle: 26.2 Length:45.2 WOUND PHOTOGRAPHY: NO DEBRIDEMENT PROCEDURE BY PROVIDER: Anesthetic Used: N/A applied per examination scorer # Other procedure: Specimen collected: WOUND TREATMENT PER MD ORDER: 02/10/22 no open wounds noted Vaseline applied to bilateral lower legs COMPRESSION: Patients own compression stockings SPECIAL NEEDS: Coordination of care n/a Emotional support N/A OR set-up N/A Clinical Education Manager N/A Incontinence needs N/A DISCHARGED in stable condition to: Home in wheelchair Global surgical period dates if applicable: N/A PLAN/ORDERS: F/U needed Referral for Lymphedema clinic EDUCATION: The patient/family was instructed how to cleanse the wound(s). Visual demonstration on how to apply the dressing with teach back method. Signs AND symptoms of infection were reviewed: Increased redness, swelling, pain, green/yellow drainage, fever and/or chills would all need to be evaluated by a Physician. Patient received typed home-going wound care instructions and has expressed intent to comply. OTHER EDUCATION: importance of f/u with lymphedema clinic Education performed regarding lymphedema/edema: Elevation of extremity above the heart for 30 minutes three times daily and as needed Exercise such as writing the ABC's with your toes in the air, walking and/or calf pumps Wearing compression as ordered by provider Diet controlling of sodium as instructed by provider Use of medication to help control edema. - UNIVERSAL PROTOCOL / SAFETY CHECKLIST N/A - Current HBOT Status: Active or Complete - see screening below WOUND CENTER HYPERBARIC OXYGEN THERAPY SCREENING 1. Is the patient diabetic? (If No, skip to question 5) No 5. Has the patient been diagnosed with osteomyelitis? No 6. Has the patient had a previous skin graft or flap at the wound? No 7. Has the patient had or been offered vascular intervention/evaluation? No 8. Does the patient have a wound at an amputation site? No 9. Has the patient had radiation therapy at the site of the problem? No If Yes to ANY of questions 5-9, consult the [facility] Mary Galvan RN/SHALONDA Galvan RN 02/10/2022 12:19 PM Addendum WOUND CARE INSTRUCTIONS- Mateus Manzano BILATERAL LEGS WEAR YOUR COMPRESSION STOCKINGS, APPLY IN AM MAY REMOVE AT BEDTIME, MOISTURIZE LEGS DAILY Continue elevating legs as much as possible - - Avoid sitting with legs in a dependent position or standing for long periods of time. - Attempt to lay flat and elevate your legs above the level of your heart 2-3 times daily, for 30 minutes at a time. - Be sure to continue calf pumps and exercises to mimic writing the alphabet with your foot, as instructed - Control your sodium intake as instructed by provider . To give your wound the best chance to heal: - Eat three balanced meals daily focusing on the protein - Control your blood sugar. Keep blood sugar less than 200 - Complete your wound care instructions as ordered - Vitamin C 500 mg twice daily - Multiple Vitamin Daily - Drink a protein shake daily - Premiere Clear or Glucerna for Diabetic patients, Nepro for renal patients and premiere for non-renal and non-diabetic patients Graft:(if applicable) It can be normal to have some odor coming from your wound if you've had a graft application. This can be normal due to using an occlusive dressing. If you have an odor plus signs and symptoms of infection(as listed below), Please call the wound center for further instruction. Report any of the following signs and symptoms of infecti (more content not included)... [facility] CASE MANAGEMon 01-12-2022 CASE MANAGEM HNO ID: [id number] Author: Karina Ceja RN Service: Case Management Author Type: Registered Nurse Type: Care Mgt Progress Note Filed: 01/12/2022 2:24 PM Note Text: CARE MANAGEMENT DISCHARGE NOTE SERVICE DATE: 01/12/2022 SERVICE TIME: 2:23 PM LOS: 5 days Admission Date: 01/07/2022 DISCHARGE ARRANGEMENT (list agency and phone number) Discharge Arrangement: Home with Relative CAREGIVER ASSESSMENT: Caregiver is ready, willing and able to meet the patient's needs as recommended by the inter-professional team:: Yes Patient's transition needs and plan for meeting these needs: Home HANDOFF COMMUNICATION: Handoff to: Primary Care Physician Primary Care Physician Name/Phone: Dr. Anay Roque-[phone] TRANSPORTATION ARRANGEMENTS: Transportation Arrangements: Car- to transport Needs Prior to Discharge: Ready for Discharge IMM Follow Up Copy Given: Yes Copy given to:: Patient Method: In Person Discharge order written for today. Met with the patient regarding his discharge to home today. The patient had no questions/concerns regarding his discharge. No skilled home going needs identified at discharge. SIGNATURE: Karina Ceja RN PATIENT NAME: Mateus Manzano DATE: January 12, 2022 TIME: 2:23 PM PAGER/CONTACT #: [phone] [facility] CBC W Auto Differential pane l (Bld)on 01-12-2022 Basophils/100 WBC (Bld) 0.0 % Normal [facility] Comment on above: Order Comment: Speci men Type: BLOOD SPECIMENOrdering Facility: [facility] Address: [address] [place] [address] Performed By: #### 5 7021-8 ####[facility] [id number] [address] [place] Differential cell count method Nom (Bld) Manual Normal [facility] Comment on above: Order Comment: Speci men Type: BLOOD SPECIMENOrdering Facility: [facility] Address: [address] [place] [address] Performed By: #### 5 7021-8 ####[facility]ORYCLIA [id number] [address] [place] [facility] Eosinophils (Bld) [#/Vol] 0.08 10*3/uL Normal <0.46 [facility] Comment on above: Order Comment: Speci men Type: BLOOD SPECIMENOrdering Facility: [facility] Address: [address] [place] [address] Performed By: #### 5 7021-8 ####[facility]ORYCLIA [id number] [address] [place] Eosinophils/100 WBC (Bld) 1.0 % Normal [facility] Comment on above: Order Comment: Speci men Type: BLOOD SPECIMENOrdering Facility: [facility] Address: [address] [place] [address] Performed By: #### 5 7021-8 ####[facility]ATORYCLIA [id number] [address] [place] Erythrocyte distribution width (RBC) [Ratio] 14.0 % Normal 11.5-15.0 [facility] Comment on above: Order Comment: Speci men Type: BLOOD SPECIMENOrdering Facility: [facility] Address: [address] [place] [address] Performed By: #### 5 7021-8 ####[facility]ATORYCLIA [id number] [address] [place] Hematocrit (Bld) [Volume fraction] 46.3 % Normal 39.0-51.0 [facility] Comment on above: Order Comment: Speci men Type: BLOOD SPECIMENOrdering Facility: [facility] Address: [address] [place] [address] Performed By: #### 5 7021-8 ####[facility]ATORYCLIA [id number] [address] [place] Hemoglobin (Bld) [Mass/Vol] 15.7 g/dL Normal 13.0-17.0 [facility] Comment on above: Order Comment: Speci men Type: BLOOD SPECIMENOrdering Facility: [facility] Address: [address] [place] [address] Performed By: #### 5 7021-8 ####[facility] LABORATORYCLIA [id number] [place] [address] [place] Lymphocytes (Bld) [#/Vol] 2.67 10*3/uL Normal 1.00-4.00 [facility] Comment on above: Order Comment: Speci men Type: BLOOD SPECIMENOrdering Facility: [facility] Address: [address] [place] [address] Performed By: #### 5 7021-8 ####[facility]ORATORYCLIA [id number] [address] [place] Lymphocytes/100 WBC (Bld) 33.0 % Normal [facility] Comment on above: Order Comment: Speci men Type: BLOOD SPECIMENOrdering Facility: [facility] Address: [address] [place] [address] Performed By: #### 5 7021-8 ####[facility]ORATORYCLIA [id number] [address] [place] MCH (RBC) [Entitic mass] 31.1 pg Normal 26.0-34.0 [facility] Comment on above: Order Comment: Speci men Type: BLOOD SPECIMENOrdering Facility: [facility] Address: [address] [place] [address] Performed By: #### 5 7021-8 ####[facility]ORATORYCLIA [id number] [address] [place] MCHC (RBC) [Mass/Vol] 33.9 g/dL Normal 30.5-36.0 [facility] Comment on above: Order Comment: Speci men Type: BLOOD SPECIMENOrdering Facility: [facility] Address: [address] [place] [address] Performed By: #### 5 7021-8 ####[facility] LABORATORYCLIA [id number] [place] [address] [place] MCV (RBC) [Entitic vol] 91.7 fL Normal 80.0-100.0 [facility] Comment on above: Order Comment: Speci men Type: BLOOD SPECIMENOrdering Facility: [facility] Address: [address] [place] [address] Performed By: #### 5 7021-8 ####[facility] LABORATORYCLIA [id number] [address] Metamyelocytes/100 WBC (Bld) 1.0 % Normal [facility] Comment on above: Order Comment: Speci men Type: BLOOD SPECIMENOrdering Facility: [facility] Address: [address] [place] [address] Performed By: #### 5 7021-8 ####[facility] LABORATORYCLIA [id number] [address] [place] Neutrophils (Bld) [#/Vol] 4.46 10*3/uL Normal 1.45-7.50 [facility] Comment on above: Order Comment: Speci men Type: BLOOD SPECIMENOrdering Facility: [facility] Address: [address] [place] [address] Performed By: #### 5 7021-8 ####[facility]ORATORYCLIA [id number] [address] Neutrophils/100 WBC (Bld) 55.0 % Normal [facility] Comment on above: Order Comment: Speci men Type: BLOOD SPECIMENOrdering Facility: [facility] Address: [address] [place] [address] Performed By: #### 5 7021-8 ####[facility] LABORATORYCLIA [id number] [address] [place] Nucleated RBC/100 WBC (Bld) [Ratio] 0.0 /100 WBC Normal [facility] Comment on above: Order Comment: Speci men Type: BLOOD SPECIMENOrdering Facility: [facility] Address: [address] [place] [address] Performed By: #### 5 7021-8 ####[facility] LABORATORYCLIA [id number] [address] [place] PLATELET ESTIMATE Adequate Normal [facility] Comment on above: Order Comment: Speci men Type: BLOOD SPECIMENOrdering Facility: [facility] Address: [address] [place] [address] Performed By: #### 5 7021-8 ####[facility] LABORATORYCLIA [id number] [address] [place] Platelet mean volume (Bld) [Entitic vol] 10.1 fL Normal 9.0-12.7 [facility] Comment on above: Order Comment: Speci men Type: BLOOD SPECIMENOrdering Facility: [facility] Address: [address] [place] [address] Performed By: #### 5 7021-8 ####[facility] LABORATORYCLIA [id number] [address] [place] Platelets (Bld) [#/Vol] 206 10*3/uL Normal 150-400 [facility] Comment on above: Order Comment: Speci men Type: BLOOD SPECIMENOrdering Facility: [facility] Address: [address] [address] Performed By: #### 5 7021-8 ####[facility] LABORATORYCLIA [id number] [place] [address] [place] RBC (Bld) [#/Vol] 5.05 10*6/uL Normal 4.20-6.00 [facility] Comment on above: Order Comment: Speci men Type: BLOOD SPECIMENOrdering Facility: [facility] Address: [address] [place] [address] Performed By: #### 5 7021-8 ####[facility] LABORATORYCLIA [id number] [address] RED CELL MORPH Reviewed: normal Normal [facility] Comment on above: Order Comment: Speci men Type: BLOOD SPECIMENOrdering Facility: [facility] Address: [address] [place] [address] Performed By: #### 5 7021-8 ####[facility] LABORATORYCLIA [id number] [address] WAM - ABS BASO 0.00 k/uL Normal <0.11 [facility] Comment on above: Order Comment: Speci men Type: BLOOD SPECIMENOrdering Facility: [facility] Address: [address] [place] [address] Performed By: #### 5 7021-8 ####[facility] LABORATORYCLIA [id number] [address] WAM - ABS MONO 0.81 k/uL Normal <0.87 [facility] Comment on above: Order Comment: Speci men Type: BLOOD SPECIMENOrdering Facility: [facility] Address: [address] [place] [address] Performed By: #### 5 7021-8 ####[facility] LABORATORYCLIA [id number] [address] WAM - MONO% 10.0 % Normal [facility] Comment on above: Order Comment: Speci men Type: BLOOD SPECIMENOrdering Facility: [facility] Address: [address] [address] Performed By: #### 5 7021-8 ####[facility] LABORATORYCLIA [id number] [address] WAM ABSOLUTE NRBC <0.01 Normal <0.01 [facility] Comment on above: Order Comment: Speci men Type: BLOOD SPECIMENOrdering Facility: [facility] Address: [address] [address] Performed By: #### 5 7021-8 ####[facility] LABORATORYCLIA [id number] [address] WBC (Bld) [#/Vol] 8.10 10*3/uL Normal 3.70-11.00 [facility] Comment on above: Order Comment: Speci men Type: BLOOD SPECIMENOrdering Facility: [facility] Address: [address] [place] [address] Performed By: #### 5 7021-8 ####[facility] LABORATORYCLIA [id number] [address] WBC Left Shift Ql (Bld) Present Normal [facility] Comment on above: Order Comment: Speci men Type: BLOOD SPECIMENOrdering Facility: [facility] Address: [address] [place] [address] Performed By: #### 5 7021-8 ####[facility]ORYCLIA [id number] [address] CNDSon 01-12-2022 CNDS HNO ID: [id number] Author: Aron Jon Jr., MD Service: Hospital Medicine Author Type: Physician Type: Discharge Summary Filed: 01/12/2022 6:00 PM Note Text: DISCHARGE SUMMARY PATIENT NAME: Mateus Manzano Code Status: Not on file Highest Readmission Risk Score: 24 The 30 day readmissions risk score is derived from an internally validated risk model which evaluates patient level characteristics, utilization history, medication orders and lab results up until the day of discharge. Patients with a score of 40 or above are considered highest risk for readmission. Specific patient level drivers will be listed at the bottom of the summary. Admission Information Admission Information ADMIT DATE: 01/07/2022 DISCHARGE DATE: 01/12/2022 MY DOCTORS AND MEDICAL TEAM: My Main Hospital Doctor: Aron Jon Jr. Primary Care Provider: Anay Roque MD My Medical Team Members: Treatment Team: Attending Provider: Aron Jon Jr., MD Consulting: Jayant Estrella MD Consulting: Norm Mayes DPM MY CONDITION AT DISCHARGE: Stable REASON I WAS IN THE HOSPITAL: Fevers, redness and swelling of your right leg SUMMARY OF WHAT HAPPENED WHILE I WAS IN THE HOSPITAL: You were admitted to the hospital on 01/07/22 due to fevers, redness and swelling of your right leg and a possible urinary tract infection. You were started on IV antibiotics and the Infectious Disease specialist was consulted. Your antibiotics were adjusted to IV Cefazolin. The redness and swelling of your leg rapidly improved. A culture of the open blister area on your leg and blood cultures were all negative. A Urine Culture grew Ecoli. Infectious Disease did not think this was a significant infection, but it was sensitive to the antibiotic you were on for your leg infection. Podiatry was consulted and dressed your wounds. You were treated with an antifungal cream for the fungal rash on your feet. By 01/12, you were ready for discharge. You were discharged to home on 01/12/22. Cephalexin (antibiotic) 1000 mg three times a day for 6+ more days was ordered. Morphine Sulfate ER 15 mg every 12 hours (home medication) for 10 doses was ordered until you can get a refill from your chronic pain physician. Keep your legs elevated as much as possible. You should follow-up with your PCP in 1-2 weeks. Follow-up with Chronic Pain Management as previously scheduled. Follow-up with the [facility] in 3-4 weeks. OTHER PROBLEMS/DIAGNOSIS: Principal Problem: Sepsis due to skin infection (HCC) Active Problems: Cellulitis of right leg Urinary tract infection associated with indwelling urethral catheter (HCC) Acute non-recurrent maxillary sinusitis Atelectasis Tinea pedis of both feet Spinal cord injury, T7-T12 (HCC) Neurogenic bladder History of pulmonary embolus (PE) Presence of intrathecal baclofen pump Chronic pain syndrome Class 1 obesity due to excess calories with serious comorbidity and body mass index (BMI) of 34.0 to 34.9 in adult Resolved Problems: * No resolved hospital problems. * OPERATIONS PERFORMED WHILE IN THE HOSPITAL: None IMPORTANT TEST/PROCEDURES: No procedures performed TEST RESULTS NOT AVAILABLE AT THIS TIME: No pending results Discharge Disposition Discharge Disposition: Home With Self Care Activity When You Leave the Hospital Resume pre-hospital activity Diet Instructions Resume your pre-hospital diet Follow Up Appointments Follow-Up Appointment 1-2 weeks When: In: Anay Roque MD [phone] [address] [facility] [address] PCP Requested Referral Follow-Up Appointment 3-4 weeks With: [facility] When: In: Patient/Parents to call for appointment?: Yes Additional Provider to Provider Information: This is a 36 year old male, with a PMH of a 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 Mitch Morgan) and obesity, who presented to the ED on 01/07/22 with complaints of fevers, cough and back pain for 2-3 days which he thought might be secondary to a UTI. He also noted the abrupt onset of erythema and swelling of his right leg for 1 day. In the ED, he was febrile to 102.5F with HR 126. Na 135, K 4.1, Cr 1.0, WBC 15.9, Plts 147. Lactate 1.7. Urine micro showed 6-10 WBC, 11-25 RBC and many bacteria. CXR showed atypical pneumonia v asthma v bronchitis. COVID-19 test was negative. He was given IV Vanco and Cipro prior to admission to a medical bed. He was started on IV Rocephin and Vanco and ID was consulted. His last fever was in the shank pinner of 01/08/22. ID changed antibiotics to IV Ancef for cellulitis, which was thought to be the cause of his sepsis. His right leg swelling and erythema rapidly improved. CT of his Right Shoulder showed minor arthri (more content not included)... [facility] CONSULT PROn 01-12-2022 CONSULT PROG O ID: [id number] Author: Jayant Estrella MD Service: Infectious Disease Author Type: Physician Type: Consult Progress Note Filed: 01/12/2022 12:57 PM Note Text: INFECTIOUS DISEASE PROGRESS NOTE Patient Name: Mateus Manzano INTERVAL HISTORY: Patients leg appears much improved. No new complaints. No fevers. Discussed w podiatry. NO urinary symptoms. Review of systems checked in details. Patient Active Hospital Problem List: Sepsis due to skin infection (HCC) (01/07/2022) Neurogenic bladder (05/29/2014) Spinal cord injury, T7-T12 (HCC) (06/01/2014) History of pulmonary embolus (PE) (11/30/2014) Presence of intrathecal baclofen pump (12/07/2016) Class 1 obesity due to excess calories with serious comorbidity and body mass index (BMI) of 34.0 to 34.9 in adult (06/25/2019) Urinary tract infection associated with indwelling urethral catheter (HCC) (01/07/2022) Cellulitis of right leg (01/07/2022) Acute non-recurrent maxillary sinusitis (01/07/2022) Atelectasis (01/07/2022) Tinea pedis of both feet (01/07/2022) Chronic pain syndrome (01/10/2022) ASSESSMENT: Cellulitis of right leg Sepsis due to skin infection Acute non-recurrent maxillary sinusitis Atelectasis Sepsis Class 1 obesity due to excess calories with serious comorbidity and body mass index (BMI) of 34.0 to 34.9 in adult Tinea pedis of both feet T8-T12 paraparesis ? PLAN: Continue Ancef in the hospital Monitor temperatures and counts Right leg elevation Emphasized the importance of chronic compression and edema management Doubt pneumonia given lack of symptoms from the respiratory standpoint Doubt urinary tract infection Discharge on PO Keflex 1000 mg 3 times a day for 6 days more Follow-up at the wound center in 3 to 4 weeks MEDICATIONS: reviewed. Current Facility-Administered Medications Medication Dose Route Frequency - NaCl 0.9% iv flush bag 20 mL INTRAVENOUS PRN - pregabalin 200 mg cap(s) (LYRICA) 200 mg ORAL BID - rivaroxaban 20 mg tab(s) (XARELTO) 20 mg ORAL AT BEDTIME - docusate sodium 100 mg cap(s) (COLACE) 100 mg ORAL BID - morphine SR 15 mg tab(s) (MS CONTIN, ORAMORPH SR) 15 mg ORAL BID - baclofen 10 mg tab(s) (LIORESAL) 10 mg ORAL BID - sodium chloride 0.9 % (flush) 2-10 mL (BD POSIFLUSH) 2-10 mL INTRAVENOUS q 12 H - docusate sodium 100 mg cap(s) (COLACE) 100 mg ORAL BID PRN - bisacodyl 10 mg suppository (DULCOLAX) 10 mg RECTAL DAILY PRN - zolpidem 5 mg tab(s) (AMBIEN) 5 mg ORAL AT BEDTIME PRN - sodium chloride 0.9 % (flush) 3-5 mL (BD POSIFLUSH) 3-5 mL INTRAVENOUS q 12 H - oxyCODONE IR 5 mg tab(s) (ROXICODONE) 5 mg ORAL q 3 H PRN - oxyCODONE IR 10 mg tab(s) (ROXICODONE) 10 mg ORAL q 3 H PRN - acetaminophen 1,000 mg tab(s) (TYLENOL) 1,000 mg ORAL q 8 H PRN - ondansetron (PF) 4 mg injection (ZOFRAN) 4 mg INTRAVENOUS q 6 H PRN - ondansetron orally disintegrating 8 mg tab(s) (ZOFRAN ODT) 8 mg ORAL q 6 H PRN - tiZANidine 2 mg tab(s) (ZANAFLEX) 2 mg ORAL BID - lidocaine 5 % ointment (XYLOCAINE) TOPICAL PRN - albuterol 2.5 mg /3 mL (0.083 %) 1.25 mg (PROVENTIL) 1.25 mg INHALATION TID - clotrimazole 1 % (LOTRIMIN, CLOTRIM) TOPICAL BID - naloxegol 25 mg tab(s) (MOVANTIK) 25 mg ORAL DAILY - baclofen 100 % 625 mcg patient's own pump - [facility] placeholder INTRATHECAL CONTINUOUS - clomiPHENe 50 mg tab(s) (SEROPHENE) 50 mg ORAL q 48 HR - cabergoline 0.5 mg tab(s) (DOSTINEX) 0.5 mg ORAL MON and NINFA - ceFAZolin iv piggyback 2 g in D5W (iso-osmotic) 100 mL (ANCEF) 2 g INTRAVENOUS q 8 H PHYSICAL EXAM: Vital signs: BP 131/72 Pulse 82 Temp 36.8 ?C (98.2 ?F) (Oral) Resp 18 Wt 129.3 kg (285 lb) SpO2 100% BMI 34.69 kg/m? Temp (24hrs), Av.1 ?C (98.8 ?F), Min:36.9 ?C (98.4 ?F), Max:37.3 ?C (99.1 ?F) General: alert, oriented, NAD Lungs: bilaterally clear to auscultation Heart: regular rate and rhythm Abdomen: soft, non tender, non distended, BS+ Extremities: Right leg erythema and warmth are much improved. No rashes No joint inflammation Neck supple Lines ok No CVAT Lines, Drains, and Airways Line Peripheral 01/10/22 2215 Short Left Forearm 22 Gauge 1 day Labs: Recent Labs 01/12/22 0550 01/11/22 0623 01/10/22 0439 WBC 8.10 7.12 7.15 HB 15.7 15.3 14.1 PLT 206 190 144* NA 140 141 142 K 4.6 4.2 4.4 CO2 28 26 27 BUN 11 12 11 CREAT 0.85 0.83 0.91 Microbiology data: reviewed Imaging data: reviewed Jayant Estrella MD [phone] 01/11/2022 4:32 PM Normal [facility] Renal function 2000 panelon 01-12-2022 Albumin [Mass/Vol] 2.8 g/dL Low 3.9-4.9 [facility] Comment on above: Order Comment: Speci men Type: BLOOD SPECIMEN Ordering Facility: [facility] Address: [address] [place] [address] Performed By: #### 2 4362-6 #### [facility] CLIA [id number] [address] [place] [address] [place] Anion gap [Moles/Vol] 6 mmol/L Low 9-18 [facility] Comment on above: Order Comment: Augustina gary Type: BLOOD SPECIMEN Ordering Facility: [facility] Address: [address] [place] [address] Performed By: #### 2 4362-6 #### [facility] CLIA [id number] [address] [place] [address] [place] Calcium [Mass/Vol] 9.0 mg/dL Normal 8.5-10.2 [facility] Comment on above: Order Comment: Speci men Type: BLOOD SPECIMEN Ordering Facility: [facility] Address: [address] [place] [address] Performed By: #### 2 4362-6 #### [facility] CLIA [id number] [address] [place] [address] [place] Chloride [Moles/Vol] 106 mmol/L High 97-105 [facility] Comment on above: Order Comment: Speci men Type: BLOOD SPECIMEN Ordering Facility: [facility] Address: [address] [place] [address] Performed By: #### 2 4362-6 #### [facility] CLIA [id number] [address] [place] CO2 [Moles/Vol] 28 mmol/L Normal 22-30 [facility] Comment on above: Order Comment: Zeusi men Type: BLOOD SPECIMEN Ordering Facility: [facility] Address: [address] [place] [address] Performed By: #### 2 4362-6 #### [facility] CLIA [id number] [address] Creatinine [Mass/Vol] 0.85 mg/dL Normal 0.73-1.22 [facility] Comment on above: Order Comment: Zeusi men Type: BLOOD SPECIMEN Ordering Facility: [facility] Address: [address] [place] [address] Performed By: #### 2 4362-6 #### [facility] CLIA [id number] [address] ESTIMATED GLOMERULAR FILTRATION RATE 115 mL/min/1.73m??? Normal >=60 [facility] Comment on above: Order Comment: Augustina gary Type: BLOOD SPECIMEN Ordering Facility: [facility] Address: [address] [place] [address] Result Comment: Re mated Glomerular Filtration Rate (eGFR) is calculated using the 2020 CKD-EPI creatinine equation. This equation utilizes serum creatinine, sex, and age as parameters. The creatinine assay has traceable calibration to isotope dilution-mass spectrometry. Refer to KDIGO guidelines for clinical interpretation. In patients with unstable renal function, e.g. those with acute kidney injury, the eGFR may not accurately reflect actual GFR. Performed By: #### 2 4362-6 #### [facility] CLIA [id number] [address] [place] Glucose [Mass/Vol] 101 mg/dL High 74-99 [facility] Comment on above: Order Comment: Augustina men Type: BLOOD SPECIMEN Ordering Facility: [facility] Address: [address] [place] [address] Result Comment: The [place] Diabetes Association (ADA) provides guidance for cutoff values for fasting glucose and random glucose. The ADA defines fasting as no caloric intake for at least 8 hours. Fasting plasma glucose results between 100 to 125 mg/dL indicate increased risk for diabetes (prediabetes). Fasting plasma glucose results greater than or equal to 126 mg/dL meet the criteria for diagnosis of diabetes. In the absence of unequivocal hyperglycemia, results should be confirmed by repeat testing. In a patient with classic symptoms of hyperglycemia or hyperglycemic crisis, random plasma glucose results greater than or equal to 200 mg/dL meet the criteria for diagnosis of diabetes. Reference: Standards of Medical Care in Diabetes 2016, [place] [employer]. Diabetes Care. 2016.39(Suppl 1). Performed By: #### 2 4362-6 #### [facility] CLIA [id number] [address] [place] [address] [place] Phosphate [Mass/Vol] 3.5 mg/dL Normal 2.7-4.8 [facility] Comment on above: Order Comment: Augustina gary Type: BLOOD SPECIMEN Ordering Facility: [facility] Address: [address] [place] [address] Performed By: #### 2 4362-6 #### [facility] CLIA [id number] [address] [place] [address] [place] Potassium [Moles/Vol] 4.6 mmol/L Normal 3.7-5.1 [facility] Comment on above: Order Comment: Augustina gary Type: BLOOD SPECIMEN Ordering Facility: [facility] Address: [address] [place] [address] Performed By: #### 2 4362-6 #### [facility] CLIA [id number] [address] [place] [address] [place] Sodium [Moles/Vol] 140 mmol/L Normal 136-144 [facility] Comment on above: Order Comment: Augustina gary Type: BLOOD SPECIMEN Ordering Facility: [facility] Address: [address] [address] Performed By: #### 2 4362-6 #### [facility] CLIA [id number] [address] [place] [address] [place] Urea nitrogen [Mass/Vol] 11 mg/dL Normal 9-24 [facility] Comment on above: Order Comment: Speci men Type: BLOOD SPECIMEN Ordering Facility: [facility] Address: [address] [place] [address] Performed By: #### 2 4362-6 #### [facility] CLIA [id number] [address] [place] CASE MANAGEMon 01-11-2022 CASE MANAGEM HNO ID: [id number] Author: Karina Ceja RN Service: Case Management Author Type: Registered Nurse Type: Care Mgt Progress Note Filed: 01/11/2022 3:28 PM Note Text: CARE MANAGEMENT PROGRESS NOTE SERVICE DATE: 01/11/2022 SERVICE TIME: 3:27 PM LOS: 4 days Needs Prior to Discharge: To Be Determined Review of EMR. ID and podiatry following MRI of the lower leg ordered. CM department will continue to follow for DC needs. SIGNATURE: Karina Ceja RN PATIENT NAME: Mateus Manzano DATE: January 11, 2022 TIME: 3:27 PM PAGER/CONTACT #: [phone] Normal [facility] CBC W Auto Differential pane l (Bld)on 01-11-2022 Band form neutrophils/100 WBC (Bld) 0.0 % Normal [facility] Comment on above: Order Comment: Speci men Type: BLOOD SPECIMENOrdering Facility: [facility] Address: [address] [place] [address] Performed By: #### 5 7021-8 ####[facility] [id number] [address] Basophils/100 WBC (Bld) 0.0 % Normal [facility] Comment on above: Order Comment: Speci men Type: BLOOD SPECIMENOrdering Facility: [facility] Address: [address] [place] [address] Performed By: #### 5 7021-8 ####[facility] [id number] [address] [place] BLAST% 0.0 % Normal <=0.0 [facility] Comment on above: Order Comment: Speci men Type: BLOOD SPECIMENOrdering Facility: [facility] Address: [address] [place] [address] Performed By: #### 5 7021-8 ####[facility] [id number] [address] Differential cell count method Nom (Bld) Manual Normal [facility] Comment on above: Order Comment: Speci men Type: BLOOD SPECIMENOrdering Facility: [facility] Address: [address] [place] [address] Performed By: #### 5 7021-8 ####[facility] [id number] [place] [address] [place] Eosinophils (Bld) [#/Vol] 0.21 10*3/uL Normal <0.46 [facility] Comment on above: Order Comment: Speci men Type: BLOOD SPECIMENOrdering Facility: [facility] Address: [address] [place] [address] Performed By: #### 5 7021-8 ####[facility] [id number] [address] [place] [facility] Eosinophils/100 WBC (Bld) 3.0 % Normal [facility] Comment on above: Order Comment: Speci men Type: BLOOD SPECIMENOrdering Facility: [facility] Address: [address] [place] [address] Performed By: #### 5 7021-8 ####[facility] [id number] [address] [place] Erythrocyte distribution width (RBC) [Ratio] 14.3 % Normal 11.5-15.0 [facility] Comment on above: Order Comment: Speci men Type: BLOOD SPECIMENOrdering Facility: [facility] Address: [address] [place] [address] Performed By: #### 5 7021-8 ####[facility] [id number] [address] [place] Hematocrit (Bld) [Volume fraction] 45.1 % Normal 39.0-51.0 [facility] Comment on above: Order Comment: Speci men Type: BLOOD SPECIMENOrdering Facility: [facility] Address: [address] [place] [address] Performed By: #### 5 7021-8 ####[facility] [id number] [address] [place] Hemoglobin (Bld) [Mass/Vol] 15.3 g/dL Normal 13.0-17.0 [facility] Comment on above: Order Comment: Speci men Type: BLOOD SPECIMENOrdering Facility: [facility] Address: [address] [place] [address] Performed By: #### 5 7021-8 ####[facility] [id number] [place] [address] [place] Lymphocytes (Bld) [#/Vol] 1.71 10*3/uL Normal 1.00-4.00 [facility] Comment on above: Order Comment: Speci men Type: BLOOD SPECIMENOrdering Facility: [facility] Address: [address] [place] [address] Performed By: #### 5 7021-8 ####[facility] [id number] [address] [place] Lymphocytes/100 WBC (Bld) 24.0 % Normal [facility] Comment on above: Order Comment: Speci men Type: BLOOD SPECIMENOrdering Facility: [facility] Address: [address] [place] [address] Performed By: #### 5 7021-8 ####[facility] [id number] [address] [place] Lymphocytes/100 WBC (Bld) 0.0 % Normal [facility] Comment on above: Order Comment: Speci men Type: BLOOD SPECIMENOrdering Facility: [facility] Address: [address] [place] [address] Performed By: #### 5 7021-8 ####[facility]IA [id number] [place] [address] [place] LYMPHOMA CELL 0.0 % Normal [facility] Comment on above: Order Comment: Speci men Type: BLOOD SPECIMENOrdering Facility: [facility] Address: [address] [place] [address] Performed By: #### 5 7021-8 ####[facility] [id number] [address] MCH (RBC) [Entitic mass] 30.7 pg Normal 26.0-34.0 [facility] Comment on above: Order Comment: Speci men Type: BLOOD SPECIMENOrdering Facility: [facility] Address: [address] [place] [address] Performed By: #### 5 7021-8 ####[facility] [id number] [address] MCHC (RBC) [Mass/Vol] 33.9 g/dL Normal 30.5-36.0 [facility] Comment on above: Order Comment: Speci men Type: BLOOD SPECIMENOrdering Facility: [facility] Address: [address] [place] [address] Performed By: #### 5 7021-8 ####[facility] [id number] [address] MCV (RBC) [Entitic vol] 90.6 fL Normal 80.0-100.0 [facility] Comment on above: Order Comment: Speci men Type: BLOOD SPECIMENOrdering Facility: [facility] Address: [address] [place] [address] Performed By: #### 5 7021-8 ####[facility]IA [id number] [address] MEGAKARYOCYTIC FRAGMENTS 0.0 /100 WBC Normal [facility] Comment on above: Order Comment: Speci men Type: BLOOD SPECIMENOrdering Facility: [facility] Address: [address] [place] [address] Performed By: #### 5 7021-8 ####[facility] [id number] [address] Metamyelocytes/100 WBC (Bld) 1.0 % Normal [facility] Comment on above: Order Comment: Speci men Type: BLOOD SPECIMENOrdering Facility: [facility] Address: [address] [place] [address] Performed By: #### 5 7021-8 ####[facility] [id number] [address] MYELO% 1.0 % Normal [facility] Comment on above: Order Comment: Speci men Type: BLOOD SPECIMENOrdering Facility: [facility] Address: [address] [place] [address] Performed By: #### 5 7021-8 ####[facility]IA [id number] [place] [address] [place] Neutrophils (Bld) [#/Vol] 4.41 10*3/uL Normal 1.45-7.50 [facility] Comment on above: Order Comment: Speci men Type: BLOOD SPECIMENOrdering Facility: [facility] Address: [address] [place] [address] Performed By: #### 5 7021-8 ####[facility] [id number] [address] [place] Neutrophils/100 WBC (Bld) 62.0 % Normal [facility] Comment on above: Order Comment: Speci men Type: BLOOD SPECIMENOrdering Facility: [facility] Address: [address] [place] [address] Performed By: #### 5 7021-8 ####[facility] [id number] [address] [place] Nucleated RBC/100 WBC (Bld) [Ratio] 0.0 /100 WBC Normal [facility] Comment on above: Order Comment: Speci men Type: BLOOD SPECIMENOrdering Facility: [facility] Address: [address] [place] [address] Performed By: #### 5 7021-8 ####[facility] [id number] [address] OTHER CELLS 0.0 % Normal [facility] Comment on above: Order Comment: Speci men Type: BLOOD SPECIMENOrdering Facility: [facility] Address: [address] [address] Performed By: #### 5 7021-8 ####[facility] [id number] [address] PLASMA CELLS 0.0 % Normal [facility] Comment on above: Order Comment: Speci men Type: BLOOD SPECIMENOrdering Facility: [facility] Address: [address] [place] [address] Performed By: #### 5 7021-8 ####[facility] [id number] [address] [place] PLATELET ESTIMATE Adequate Normal [facility] Comment on above: Order Comment: Speci men Type: BLOOD SPECIMENOrdering Facility: [facility] Address: [address] [place] [address] Performed By: #### 5 7021-8 ####[facility] [id number] [address] [place] Platelet mean volume (Bld) [Entitic vol] 10.5 fL Normal 9.0-12.7 [facility] Comment on above: Order Comment: Speci men Type: BLOOD SPECIMENOrdering Facility: [facility] Address: [address] [place] [address] Performed By: #### 5 7021-8 ####[facility] [id number] [address] Platelets (Bld) [#/Vol] 190 10*3/uL Normal 150-400 [facility] Comment on above: Order Comment: Speci men Type: BLOOD SPECIMENOrdering Facility: [facility] Address: [address] [place] [address] Performed By: #### 5 7021-8 ####[facility] [id number] [address] PROMYL% 0.0 % Normal [facility] Comment on above: Order Comment: Speci men Type: BLOOD SPECIMENOrdering Facility: [facility] Address: [address] [place] [address] Performed By: #### 5 7021-8 ####[facility] [id number] [address] RBC (Bld) [#/Vol] 4.98 10*6/uL Normal 4.20-6.00 [facility] Comment on above: Order Comment: Speci men Type: BLOOD SPECIMENOrdering Facility: [facility] Address: [address] [place] [address] Performed By: #### 5 7021-8 ####[facility] [id number] [address] RED CELL MORPH Reviewed: unremarkable Normal [facility] Comment on above: Order Comment: Speci men Type: BLOOD SPECIMENOrdering Facility: [facility] Address: [address] [place] [address] Performed By: #### 5 7021-8 ####[facility] [id number] [address] Variant lymphocytes/100 WBC (Bld) 0.0 % Normal [facility] Comment on above: Order Comment: Speci men Type: BLOOD SPECIMENOrdering Facility: [facility] Address: [address] [place] [address] Performed By: #### 5 7021-8 ####[facility] [id number] [address] WAM - ABS BASO 0.00 k/uL Normal <0.11 [facility] Comment on above: Order Comment: Speci men Type: BLOOD SPECIMENOrdering Facility: [facility] Address: [address] [place] [address] Performed By: #### 5 7021-8 ####[facility] [id number] [address] WAM - ABS MONO 0.64 k/uL Normal <0.87 [facility] Comment on above: Order Comment: Speci men Type: BLOOD SPECIMENOrdering Facility: [facility] Address: [address] [place] [address] Performed By: #### 5 7021-8 ####[facility] [id number] [address] WAM - MONO% 9.0 % Normal [facility] Comment on above: Order Comment: Speci men Type: BLOOD SPECIMENOrdering Facility: [facility] Address: [address] [place] [address] Performed By: #### 5 7021-8 ####[facility] [id number] [address] WAM ABSOLUTE NRBC <0.01 Normal <0.01 [facility] Comment on above: Order Comment: Speci men Type: BLOOD SPECIMENOrdering Facility: [facility] Address: [address] [place] [address] Performed By: #### 5 7021-8 ####[facility] [id number] [address] WBC (Bld) [#/Vol] 7.12 10*3/uL Normal 3.70-11.00 [facility] Comment on above: Order Comment: Speci men Type: BLOOD SPECIMENOrdering Facility: [facility] Address: [address] [place] [address] Performed By: #### 5 7021-8 ####[facility] [id number] [address] WBC Left Shift Ql (Bld) Present Normal [facility] Comment on above: Order Comment: Speci men Type: BLOOD SPECIMENOrdering Facility: [facility] Address: [address] [place] [address] Performed By: #### 5 7021-8 ####[facility] [id number] [address] CONSULT PROGon 01-11-2022 CONSULT PROG HNO ID: [id number] Author: Jayant Estrella MD Service: Infectious Disease Author Type: Physician Type: Consult Progress Note Filed: 01/11/2022 4:32 PM Note Text: INFECTIOUS DISEASE PROGRESS NOTE Patient Name: Mateus Manzano INTERVAL HISTORY: Patients leg appears much improved. No new complaints. No fevers. Discussed w podiatry. NO urinary symptoms. Review of systems checked in details. Patient Active Hospital Problem List: Sepsis due to skin infection (HCC) (01/07/2022) Neurogenic bladder (05/29/2014) Spinal cord injury, T7-T12 (HCC) (06/01/2014) History of pulmonary embolus (PE) (11/30/2014) Presence of intrathecal baclofen pump (12/07/2016) Class 1 obesity due to excess calories with serious comorbidity and body mass index (BMI) of 34.0 to 34.9 in adult (06/25/2019) Urinary tract infection associated with indwelling urethral catheter (HCC) (01/07/2022) Cellulitis of right leg (01/07/2022) Acute non-recurrent maxillary sinusitis (01/07/2022) Atelectasis (01/07/2022) Tinea pedis of both feet (01/07/2022) Chronic pain syndrome (01/10/2022) ASSESSMENT: Cellulitis of right leg Sepsis due to skin infection Acute non-recurrent maxillary sinusitis Atelectasis Sepsis Class 1 obesity due to excess calories with serious comorbidity and body mass index (BMI) of 34.0 to 34.9 in adult Tinea pedis of both feet ? PLAN: Continue Ancef Wound cultures from leg NGTD CANCEL MRI R leg wo contrast today as clinically much improved Monitor temperatures and counts Right leg elevation Doubt pneumonia given lack of symptoms from the respiratory standpoint Doubt urinary tract infection Likely discharge on PO abx in 1-2 days MEDICATIONS: reviewed. Current Facility-Administered Medications Medication Dose Route Frequency - NaCl 0.9% iv flush bag 20 mL INTRAVENOUS PRN - pregabalin 200 mg cap(s) (LYRICA) 200 mg ORAL BID - rivaroxaban 20 mg tab(s) (XARELTO) 20 mg ORAL AT BEDTIME - docusate sodium 100 mg cap(s) (COLACE) 100 mg ORAL BID - morphine SR 15 mg tab(s) (MS CONTIN, ORAMORPH SR) 15 mg ORAL BID - baclofen 10 mg tab(s) (LIORESAL) 10 mg ORAL BID - sodium chloride 0.9 % (flush) 2-10 mL (BD POSIFLUSH) 2-10 mL INTRAVENOUS q 12 H - docusate sodium 100 mg cap(s) (COLACE) 100 mg ORAL BID PRN - bisacodyl 10 mg suppository (DULCOLAX) 10 mg RECTAL DAILY PRN - zolpidem 5 mg tab(s) (AMBIEN) 5 mg ORAL AT BEDTIME PRN - sodium chloride 0.9 % (flush) 3-5 mL (BD POSIFLUSH) 3-5 mL INTRAVENOUS q 12 H - oxyCODONE IR 5 mg tab(s) (ROXICODONE) 5 mg ORAL q 3 H PRN - oxyCODONE IR 10 mg tab(s) (ROXICODONE) 10 mg ORAL q 3 H PRN - acetaminophen 1,000 mg tab(s) (TYLENOL) 1,000 mg ORAL q 8 H PRN - ondansetron (PF) 4 mg injection (ZOFRAN) 4 mg INTRAVENOUS q 6 H PRN - ondansetron orally disintegrating 8 mg tab(s) (ZOFRAN ODT) 8 mg ORAL q 6 H PRN - tiZANidine 2 mg tab(s) (ZANAFLEX) 2 mg ORAL BID - lidocaine 5 % ointment (XYLOCAINE) TOPICAL PRN - albuterol 2.5 mg /3 mL (0.083 %) 1.25 mg (PROVENTIL) 1.25 mg INHALATION TID - clotrimazole 1 % (LOTRIMIN, CLOTRIM) TOPICAL BID - naloxegol 25 mg tab(s) (MOVANTIK) 25 mg ORAL DAILY - baclofen 100 % 625 mcg patient's own pump - [facility] INTRATHECAL CONTINUOUS - clomiPHENe 50 mg tab(s) (SEROPHENE) 50 mg ORAL q 48 HR - cabergoline 0.5 mg tab(s) (DOSTINEX) 0.5 mg ORAL MON and NINFA - ceFAZolin iv piggyback 2 g in D5W (iso-osmotic) 100 mL (ANCEF) 2 g INTRAVENOUS q 8 H PHYSICAL EXAM: Vital signs: BP 128/76 Pulse 80 Temp 36.9 ?C (98.4 ?F) (Oral) Resp 18 Wt 129.3 kg (285 lb) SpO2 99% BMI 34.69 kg/m? Temp (24hrs), Av.1 ?C (98.8 ?F), Min:36.9 ?C (98.4 ?F), Max:37.3 ?C (99.1 ?F) General: alert, oriented, NAD Lungs: bilaterally clear to auscultation Heart: regular rate and rhythm Abdomen: soft, non tender, non distended, BS+ Extremities: Right leg cellulitis w blisters, ant leg swelling No rashes No joint inflammation Neck supple Lines ok No CVAT Lines, Drains, and Airways Line Peripheral 01/10/22 2215 Short Left Forearm 22 Gauge <1 day Labs: Recent Labs 01/11/22 0623 01/10/22 0439 01/09/22 0556 WBC 7.12 7.15 9.12 HB 15.3 14.1 14.5 PLT 190 144* 121* NA 141 142 139 K 4.2 4.4 4.3 CO2 26 27 27 BUN 12 11 11 CREAT 0.83 0.91 0.92 Microbiology data: reviewed Imaging data: reviewed Jayant Estrella MD [phone] 01/11/2022 4:32 PM Normal [facility] Renal function 2000 panelon 01-11-2022 Albumin [Mass/Vol] 3.0 g/dL Low 3.9-4.9 [facility] Comment on above: Order Comment: Augustina gary Type: BLOOD SPECIMENOrdering Facility: [facility] Address: [address] [place] [address] Performed By: #### 2 4362-6 ####[facility] [id number] [address] STATES OF [facility] Anion gap [Moles/Vol] 11 mmol/L Normal 9-18 [facility] Comment on above: Order Comment: Augustina gary Type: BLOOD SPECIMENOrdering Facility: [facility] Address: [address] [place] [address] Performed By: #### 2 4362-6 ####[facility] [id number] [address] [place] OF [facility] Calcium [Mass/Vol] 9.0 mg/dL Normal 8.5-10.2 [facility] Comment on above: Order Comment: Augustina gary Type: BLOOD SPECIMENOrdering Facility: [facility] Address: [address] [place] [address] Performed By: #### 2 4362-6 ####[facility] [id number] [address] [place] Chloride [Moles/Vol] 104 mmol/L Normal 97-105 [facility] Comment on above: Order Comment: Speci men Type: BLOOD SPECIMENOrdering Facility: [facility] Address: [address] [place] [address] Performed By: #### 2 4362-6 ####[facility]ORYCLIA [id number] [place] [address] [place] CO2 [Moles/Vol] 26 mmol/L Normal 22-30 [facility] Comment on above: Order Comment: Speci men Type: BLOOD SPECIMENOrdering Facility: [facility] Address: [address] [place] [address] Performed By: #### 2 4362-6 ####[facility]ORYCLIA [id number] [place] [address] [place] Creatinine [Mass/Vol] 0.83 mg/dL Normal 0.73-1.22 [facility] Comment on above: Order Comment: Speci men Type: BLOOD SPECIMENOrdering Facility: [facility] Address: [address] [place] [address] Performed By: #### 2 4362-6 ####[facility]ORYCLIA [id number] [address] OF [place] ESTIMATED GLOMERULAR FILTRATION RATE 116 mL/min/1.73m??? Normal >=60 [facility] Comment on above: Order Comment: Speci men Type: BLOOD SPECIMENOrdering Facility: [facility] Address: [address] [place] [address] Result Comment: Re mated Glomerular Filtration Rate (eGFR) is calculated using the 2020 CKD-EPI creatinine equation. This equation utilizes serum creatinine, sex, and age as parameters. The creatinine assay has traceable calibration to isotope dilution-mass spectrometry. Refer to KDIGO guidelines for clinical interpretation. In patients with unstable renal function, e.g. those with acute kidney injury, the eGFR may not accurately reflect actual GFR. Performed By: #### 2 4362-6 ####[facility]ORATORYCLIA [id number] [place] [address] [place] Glucose [Mass/Vol] 97 mg/dL Normal 74-99 [facility] Comment on above: Order Comment: Augustina gary Type: BLOOD SPECIMENOrdering Facility: [facility] Address: [address] [place] [address] Result Comment: The [place] Diabetes Association (ADA) provides guidance for cutoff values for fasting glucose and random glucose. The ADA defines fasting as no caloric intake for at least 8 hours. Fasting plasma glucose results between 100 to 125 mg/dL indicate increased risk for diabetes (prediabetes). Fasting plasma glucose results greater than or equal to 126 mg/dL meet the criteria for diagnosis of diabetes. In the absence of unequivocal hyperglycemia, results should be confirmed by repeat testing. In a patient with classic symptoms of hyperglycemia or hyperglycemic crisis, random plasma glucose results greater than or equal to 200 mg/dL meet the criteria for diagnosis of diabetes. Reference: Standards of Medical Care in Diabetes 2016, [place] [employer]. Diabetes Care. 2016.39(Suppl 1). Performed By: #### 2 4362-6 ####[facility]ATORYCLIA [id number] [place] [address] [place] Phosphate [Mass/Vol] 3.3 mg/dL Normal 2.7-4.8 [facility] Comment on above: Order Comment: Augustina gary Type: BLOOD SPECIMENOrdering Facility: [facility] Address: [address] [place] [address] Performed By: #### 2 4362-6 ####[facility]ORATORYCLIA [id number] [place] [id number] [place] Potassium [Moles/Vol] 4.2 mmol/L Normal 3.7-5.1 [facility] Comment on above: Order Comment: Augustina gary Type: BLOOD SPECIMENOrdering Facility: [facility] Address: [address] [place] [address] Performed By: #### 2 4362-6 ####[facility]ATORYCLIA [id number] [place] [address] Sodium [Moles/Vol] 141 mmol/L Normal 136-144 [facility] Comment on above: Order Comment: Speci men Type: BLOOD SPECIMENOrdering Facility: [facility] Address: [address] [place] [address] Performed By: #### 2 4362-6 ####[facility] LABORATORYCLIA [id number] [address] [place] [facility] Urea nitrogen [Mass/Vol] 12 mg/dL Normal 9-24 [facility] Comment on above: Order Comment: Speci men Type: BLOOD SPECIMENOrdering Facility: [facility] Address: [address] [place] [address] Performed By: #### 2 4362-6 ####[facility] LABORATORYCLIA [id number] [address] CBC W Auto Differential pane l (Bld)on 01-10-2022 Basophils (Bld) [#/Vol] 0.04 10*3/uL Normal <0.11 [facility] Comment on above: Order Comment: Speci men Type: BLOOD SPECIMENOrdering Facility: [facility] Address: [address] [place] [address] Performed By: #### 5 7021-8 ####[facility] LABORATORYCLIA [id number] [address] Basophils/100 WBC (Bld) 0.6 % Normal [facility] Comment on above: Order Comment: Speci men Type: BLOOD SPECIMENOrdering Facility: [facility] Address: [address] [place], [place] [address] Performed By: #### 5 7021-8 ####[facility] LABORATORYCLIA [id number] [address] Differential cell count method Nom (Bld) Auto Normal [facility] Comment on above: Order Comment: Speci men Type: BLOOD SPECIMENOrdering Facility: [facility] Address: [address] [place] [address] Performed By: #### 5 7021-8 ####[facility] LABORATORYCLIA [id number] [place] [address] [place] Eosinophils (Bld) [#/Vol] 0.15 10*3/uL Normal <0.46 [facility] Comment on above: Order Comment: Speci men Type: BLOOD SPECIMENOrdering Facility: [facility] Address: [address] [place] [address] Performed By: #### 5 7021-8 ####[facility] LABORATORYCLIA [id number] [address] [place] Eosinophils/100 WBC (Bld) 2.1 % Normal [facility] Comment on above: Order Comment: Speci men Type: BLOOD SPECIMENOrdering Facility: [facility] Address: [address] [place] [address] Performed By: #### 5 7021-8 ####[facility] LABORATORYCLIA [id number] [address] [place] Erythrocyte distribution width (RBC) [Ratio] 14.6 % Normal 11.5-15.0 [facility] Comment on above: Order Comment: Speci men Type: BLOOD SPECIMENOrdering Facility: [facility] Address: [address] [place] [address] Performed By: #### 5 7021-8 ####[facility] LABORATORYCLIA [id number] [address] [place] Hematocrit (Bld) [Volume fraction] 42.1 % Normal 39.0-51.0 [facility] Comment on above: Order Comment: Speci men Type: BLOOD SPECIMENOrdering Facility: [facility] Address: [address] [place] [address] Performed By: #### 5 7021-8 ####[facility] LABORATORYCLIA [id number] [address] [place] Hemoglobin (Bld) [Mass/Vol] 14.1 g/dL Normal 13.0-17.0 [facility] Comment on above: Order Comment: Speci men Type: BLOOD SPECIMENOrdering Facility: [facility] Address: [address] [place] [address] Performed By: #### 5 7021-8 ####[facility] LABORATORYCLIA [id number] [address] IMMATURE GRAN % 0.8 % Normal [facility] Comment on above: Order Comment: Speci men Type: BLOOD SPECIMENOrdering Facility: [facility] Address: [address] [place] [address] Performed By: #### 5 7021-8 ####[facility] LABORATORYCLIA [id number] [address] IMMATURE GRAN ABS 0.06 k/uL Normal <0.10 [facility] Comment on above: Order Comment: Speci men Type: BLOOD SPECIMENOrdering Facility: [facility] Address: [address] [place] [address] Performed By: #### 5 7021-8 ####[facility] LABORATORYCLIA [id number] [address] [place] [facility] Lymphocytes (Bld) [#/Vol] 1.56 10*3/uL Normal 1.00-4.00 [facility] Comment on above: Order Comment: Speci men Type: BLOOD SPECIMENOrdering Facility: [facility] Address: [address] [place] [address] Performed By: #### 5 7021-8 ####[facility] LABORATORYCLIA [id number] [address] Lymphocytes/100 WBC (Bld) 21.8 % Normal [facility] Comment on above: Order Comment: Speci men Type: BLOOD SPECIMENOrdering Facility: [facility] Address: [address] [place] [address] Performed By: #### 5 7021-8 ####[facility] LABORATORYCLIA [id number] [address] MCH (RBC) [Entitic mass] 30.9 pg Normal 26.0-34.0 [facility] Comment on above: Order Comment: Speci men Type: BLOOD SPECIMENOrdering Facility: [facility] Address: [address] [place] [address] Performed By: #### 5 7021-8 ####[facility] LABORATORYCLIA [id number] [place] [address] [place] MCHC (RBC) [Mass/Vol] 33.5 g/dL Normal 30.5-36.0 [facility] Comment on above: Order Comment: Speci men Type: BLOOD SPECIMENOrdering Facility: [facility] Address: [address] [place] [address] Performed By: #### 5 7021-8 ####[facility] LABORATORYCLIA [id number] [address] [place] MCV (RBC) [Entitic vol] 92.3 fL Normal 80.0-100.0 [facility] Comment on above: Order Comment: Speci men Type: BLOOD SPECIMENOrdering Facility: [facility] Address: [address] [place] [address] Performed By: #### 5 7021-8 ####[facility] LABORATORYCLIA [id number] [place] [address] [place] Monocytes (Bld) [#/Vol] 0.61 10*3/uL Normal <0.87 [facility] Comment on above: Order Comment: Speci men Type: BLOOD SPECIMENOrdering Facility: [facility] Address: [address] [place] [address] Performed By: #### 5 7021-8 ####[facility] LABORATORYCLIA [id number] [address] Monocytes/100 WBC (Bld) 8.5 % Normal [facility] Comment on above: Order Comment: Speci men Type: BLOOD SPECIMENOrdering Facility: [facility] Address: [address] [place] [address] Performed By: #### 5 7021-8 ####[facility] LABORATORYCLIA [id number] [place] [address] [place] Neutrophils (Bld) [#/Vol] 4.73 10*3/uL Normal 1.45-7.50 [facility] Comment on above: Order Comment: Speci men Type: BLOOD SPECIMENOrdering Facility: [facility] Address: [address] [place] [address] Performed By: #### 5 7021-8 ####[facility] LABORATORYCLIA [id number] [address] Neutrophils/100 WBC (Bld) 66.2 % Normal [facility] Comment on above: Order Comment: Speci men Type: BLOOD SPECIMENOrdering Facility: [facility] Address: [address] [place] [address] Performed By: #### 5 7021-8 ####[facility] LABORATORYCLIA [id number] [address] [place] Nucleated RBC (Bld) [#/Vol] 10*3/uL Normal <0.01 [facility] Comment on above: Order Comment: Speci men Type: BLOOD SPECIMENOrdering Facility: [facility] Address: [address] [place] [address] Performed By: #### 5 7021-8 ####[facility] LABORATORYCLIA [id number] [address] Nucleated RBC/100 WBC (Bld) [Ratio] 0.0 /100 WBC Normal [facility] Comment on above: Order Comment: Speci men Type: BLOOD SPECIMENOrdering Facility: [facility] Address: [address] [place] [address] Performed By: #### 5 7021-8 ####[facility] LABORATORYCLIA [id number] [address] [place] Platelet mean volume (Bld) [Entitic vol] 10.8 fL Normal 9.0-12.7 [facility] Comment on above: Order Comment: Speci men Type: BLOOD SPECIMENOrdering Facility: [facility] Address: [address] [place] [address] Performed By: #### 5 7021-8 ####[facility] LABORATORYCLIA [id number] [address] [place] Platelets (Bld) [#/Vol] 144 10*3/uL Low 150-400 [facility] Comment on above: Order Comment: Speci men Type: BLOOD SPECIMENOrdering Facility: [facility] Address: [address] [place] [address] Result Comment: No c lot detected Performed By: #### 5 7021-8 ####[facility] LABORATORYCLIA [id number] [address] RBC (Bld) [#/Vol] 4.56 10*6/uL Normal 4.20-6.00 [facility] Comment on above: Order Comment: Speci men Type: BLOOD SPECIMENOrdering Facility: [facility] Address: [address] [place] [address] Performed By: #### 5 7021-8 ####[facility]ORATORYCLIA [id number] [address] WBC (Bld) [#/Vol] 7.15 10*3/uL Normal 3.70-11.00 [facility] Comment on above: Order Comment: Speci men Type: BLOOD SPECIMENOrdering Facility: [facility] Address: [address] [place] [address] Performed By: #### 5 7021-8 ####[facility] LABORATORYCLIA [id number] [address] CONSULT PROGon 01-10-2022 CONSULT PROG HNO ID: [id number] Author: Jayant Estrella MD Service: Infectious Disease Author Type: Physician Type: Consult Progress Note Filed: 01/10/2022 11:08 AM Note Text: INFECTIOUS DISEASE PROGRESS NOTE Patient Name: Mateus Manzano INTERVAL HISTORY: Right leg continues to be red and swollen but better. Serous drainage from leg blisters. Temperature curve appears to be trending down, AF>48 hrs. Creatinine is better at 0.92. Cultures are unrevealing to date. NO urinary symptoms. Review of systems checked in details. Patient Active Hospital Problem List: Sepsis due to skin infection (HCC) (01/07/2022) Neurogenic bladder (05/29/2014) Spinal cord injury, T7-T12 (HCC) (06/01/2014) History of pulmonary embolus (PE) (11/30/2014) Presence of intrathecal baclofen pump (12/07/2016) Class 1 obesity due to excess calories with serious comorbidity and body mass index (BMI) of 34.0 to 34.9 in adult (06/25/2019) Urinary tract infection associated with indwelling urethral catheter (HCC) (01/07/2022) Cellulitis of right leg (01/07/2022) Acute non-recurrent maxillary sinusitis (01/07/2022) Atelectasis (01/07/2022) Tinea pedis of both feet (01/07/2022) Chronic pain syndrome (01/10/2022) ASSESSMENT: Cellulitis of right leg Sepsis due to skin infection Acute non-recurrent maxillary sinusitis Atelectasis Sepsis Class 1 obesity due to excess calories with serious comorbidity and body mass index (BMI) of 34.0 to 34.9 in adult Tinea pedis of both feet ? PLAN: Continue Ancef Wound cultures from leg NGTD MRI R leg wo contrast today Monitor temperatures and counts Right leg elevation Doubt pneumonia given lack of symptoms from the respiratory standpoint Doubt urinary tract infection MEDICATIONS: reviewed. Current Facility-Administered Medications Medication Dose Route Frequency - NaCl 0.9% iv flush bag 20 mL INTRAVENOUS PRN - pregabalin 200 mg cap(s) (LYRICA) 200 mg ORAL BID - rivaroxaban 20 mg tab(s) (XARELTO) 20 mg ORAL AT BEDTIME - docusate sodium 100 mg cap(s) (COLACE) 100 mg ORAL BID - morphine SR 15 mg tab(s) (MS CONTIN, ORAMORPH SR) 15 mg ORAL BID - baclofen 10 mg tab(s) (LIORESAL) 10 mg ORAL BID - sodium chloride 0.9 % (flush) 2-10 mL (BD POSIFLUSH) 2-10 mL INTRAVENOUS q 12 H - docusate sodium 100 mg cap(s) (COLACE) 100 mg ORAL BID PRN - bisacodyl 10 mg suppository (DULCOLAX) 10 mg RECTAL DAILY PRN - zolpidem 5 mg tab(s) (AMBIEN) 5 mg ORAL AT BEDTIME PRN - sodium chloride 0.9 % (flush) 3-5 mL (BD POSIFLUSH) 3-5 mL INTRAVENOUS q 12 H - oxyCODONE IR 5 mg tab(s) (ROXICODONE) 5 mg ORAL q 3 H PRN - oxyCODONE IR 10 mg tab(s) (ROXICODONE) 10 mg ORAL q 3 H PRN - acetaminophen 1,000 mg tab(s) (TYLENOL) 1,000 mg ORAL q 8 H PRN - ondansetron (PF) 4 mg injection (ZOFRAN) 4 mg INTRAVENOUS q 6 H PRN - ondansetron orally disintegrating 8 mg tab(s) (ZOFRAN ODT) 8 mg ORAL q 6 H PRN - tiZANidine 2 mg tab(s) (ZANAFLEX) 2 mg ORAL BID - lidocaine 5 % ointment (XYLOCAINE) TOPICAL PRN - albuterol 2.5 mg /3 mL (0.083 %) 1.25 mg (PROVENTIL) 1.25 mg INHALATION TID - clotrimazole 1 % (LOTRIMIN, CLOTRIM) TOPICAL BID - naloxegol 25 mg tab(s) (MOVANTIK) 25 mg ORAL DAILY - baclofen 100 % 625 mcg patient's own pump - [facility] placeholder INTRATHECAL CONTINUOUS - clomiPHENe 50 mg tab(s) (SEROPHENE) 50 mg ORAL q 48 HR - cabergoline 0.5 mg tab(s) (DOSTINEX) 0.5 mg ORAL MON and NINFA - ceFAZolin iv piggyback 2 g in D5W (iso-osmotic) 100 mL (ANCEF) 2 g INTRAVENOUS q 8 H - iv contrast (radiology procedure) INTRAVENOUS DIRECTED PRN PHYSICAL EXAM: Vital signs: BP 140/82 Pulse 74 Temp 36.5 ?C (97.7 ?F) (Oral) Resp 16 Wt 129.3 kg (285 lb) SpO2 95% BMI 34.69 kg/m? Temp (24hrs), Av.8 ?C (98.3 ?F), Min:36.5 ?C (97.7 ?F), Max:37.2 ?C (99 ?F) General: alert, oriented, NAD Lungs: bilaterally clear to auscultation Heart: regular rate and rhythm Abdomen: soft, non tender, non distended, BS+ Extremities: Right leg cellulitis w blisters, ant leg swelling No rashes No joint inflammation Neck supple Lines ok No CVAT Lines, Drains, and Airways Line Peripheral 01/09/22 1035 Right Hand 22 Gauge 1 day Labs: Recent Labs 01/10/22 0439 01/09/22 0556 01/08/22 1506 WBC 7.15 9.12 10.96 HB 14.1 14.5 15.5 PLT 144* 121* 127* NA 142 139 141 K 4.4 4.3 4.8 CO2 27 27 32* BUN 11 11 12 CREAT 0.91 0.92 0.90 Microbiology data: reviewed Imaging data: reviewed Jayant Estrella MD [phone] 01/10/2022 11:08 AM Normal [facility] Renal function 2000 panelon 01-10-2022 Albumin [Mass/Vol] 2.7 g/dL Low 3.9-4.9 [facility] Comment on above: Order Comment: Speci men Type: BLOOD SPECIMENOrdering Facility: [facility] Address: [address] [place] [address] Performed By: #### 2 4362-6 ####[facility]ORATORYCLIA [id number] [place] [address] [place] Anion gap [Moles/Vol] 9 mmol/L Normal 9-18 [facility] Comment on above: Order Comment: Speci men Type: BLOOD SPECIMENOrdering Facility: [facility] Address: [address] [place] [address] Performed By: #### 2 4362-6 ####[facility]ORATORYCLIA [id number] [place] [address] [place] Calcium [Mass/Vol] 8.7 mg/dL Normal 8.5-10.2 [facility] Comment on above: Order Comment: Speci men Type: BLOOD SPECIMENOrdering Facility: [facility] Address: [address] [place] [address] Performed By: #### 2 4362-6 ####[facility] LABORATORYCLIA [id number] [place] [address] [place] Chloride [Moles/Vol] 106 mmol/L High 97-105 [facility] Comment on above: Order Comment: Speci men Type: BLOOD SPECIMENOrdering Facility: [facility] Address: [address] [place] [address] Performed By: #### 2 4362-6 ####[facility] LABORATORYCLIA [id number] [place] [address] [place] CO2 [Moles/Vol] 27 mmol/L Normal 22-30 [facility] Comment on above: Order Comment: Speci men Type: BLOOD SPECIMENOrdering Facility: [facility] Address: [address] [place] [address] Performed By: #### 2 4362-6 ####[facility] LABORATORYCLIA [id number] [place] [address] [place] Creatinine [Mass/Vol] 0.91 mg/dL Normal 0.73-1.22 [facility] Comment on above: Order Comment: Zeusi men Type: BLOOD SPECIMENOrdering Facility: [facility] Address: [address] [place] [address] Performed By: #### 2 4362-6 ####[facility] LABORATORYCLIA [id number] [address] ESTIMATED GLOMERULAR FILTRATION RATE 111 mL/min/1.73m??? Normal >=60 [facility] Comment on above: Order Comment: Speci men Type: BLOOD SPECIMENOrdering Facility: [facility] Address: [address] [place] [address] Result Comment: Re mated Glomerular Filtration Rate (eGFR) is calculated using the 2020 CKD-EPI creatinine equation. This equation utilizes serum creatinine, sex, and age as parameters. The creatinine assay has traceable calibration to isotope dilution-mass spectrometry. Refer to KDIGO guidelines for clinical interpretation. In patients with unstable renal function, e.g. those with acute kidney injury, the eGFR may not accurately reflect actual GFR. Performed By: #### 2 4362-6 ####[facility] LABORATORYCLIA [id number] [address] [place] Glucose [Mass/Vol] 84 mg/dL Normal 74-99 [facility] Comment on above: Order Comment: Zeusi men Type: BLOOD SPECIMENOrdering Facility: [facility] Address: [address] [place] [address] Result Comment: The [place] Diabetes Association (ADA) provides guidance for cutoff values for fasting glucose and random glucose. The ADA defines fasting as no caloric intake for at least 8 hours. Fasting plasma glucose results between 100 to 125 mg/dL indicate increased risk for diabetes (prediabetes). Fasting plasma glucose results greater than or equal to 126 mg/dL meet the criteria for diagnosis of diabetes. In the absence of unequivocal hyperglycemia, results should be confirmed by repeat testing. In a patient with classic symptoms of hyperglycemia or hyperglycemic crisis, random plasma glucose results greater than or equal to 200 mg/dL meet the criteria for diagnosis of diabetes. Reference: Standards of Medical Care in Diabetes 2016, [place] [employer]. Diabetes Care. 2016.39(Suppl 1). Performed By: #### 2 4362-6 ####[facility] LABORATORYCLIA [id number] [place] [address] [place] Phosphate [Mass/Vol] 3.6 mg/dL Normal 2.7-4.8 [facility] Comment on above: Order Comment: Augustina gary Type: BLOOD SPECIMENOrdering Facility: [facility] Address: [address] [place] [address] Performed By: #### 2 4362-6 ####[facility] LABORATORYCLIA [id number] [place] [address] [place] Potassium [Moles/Vol] 4.4 mmol/L Normal 3.7-5.1 [facility] Comment on above: Order Comment: Augustina gary Type: BLOOD SPECIMENOrdering Facility: [facility] Address: [address] [place] [address] Performed By: #### 2 4362-6 ####[facility] LABORATORYCLIA [id number] [place] [address] [place] Sodium [Moles/Vol] 142 mmol/L Normal 136-144 [facility] Comment on above: Order Comment: Augustina gary Type: BLOOD SPECIMENOrdering Facility: [facility] Address: [address] [place] [address] Performed By: #### 2 4362-6 ####[facility] LABORATORYCLIA [id number] [place] [address] [place] Urea nitrogen [Mass/Vol] 11 mg/dL Normal 9-24 [facility] Comment on above: Order Comment: Speci men Type: BLOOD SPECIMENOrdering Facility: [facility] Address: [address] [place] [address] Performed By: #### 2 4362-6 ####[facility]ORATORYCLIA [id number] [place] [address] [place] Bacteria Wnd Culton 01-10-20 22 Bacteria identified Cx Nom (Wound) CULTURE, WOUND: No growth GRAM STAIN: No organisms seen No Polymorphonuclear Leukocytes Normal [facility] Comment on above: Performed By: #### 6 462-6 ####[facility] LABCLIA [id number] [address] [place] CASE MANAGEMon 01-09-2022 CASE MANAGEM HNO ID: [id number] Author: Ladan Madrigal RN Service: ? Author Type: Registered Nurse Type: Care Mgt Progress Note Filed: 01/09/2022 9:56 AM Note Text: CARE MANAGEMENT PROGRESS NOTE SERVICE DATE: 01/09/2022 SERVICE TIME: 9:56 AM LOS: [address] Jon, will need couple more days. Probable d/c home on PO atbs. SIGNATURE: Ladan Madrigal RN PATIENT NAME: Mateus Manzano DATE: January 09, 2022 TIME: 9:56 AM PAGER/CONTACT #: [phone] Normal [facility] CBC W Auto Differential pane l (Bld)on 01-09-2022 Basophils (Bld) [#/Vol] 0.03 10*3/uL Normal <0.11 [facility] Comment on above: Order Comment: Speci men Type: BLOOD SPECIMENOrdering Facility: [facility] Address: [address] [place] [address] Performed By: #### 5 7021-8 ####[facility]ORATORYCLIA [id number] [address] [place] Basophils/100 WBC (Bld) 0.3 % Normal [facility] Comment on above: Order Comment: Speci men Type: BLOOD SPECIMENOrdering Facility: [facility] Address: [address] [place] [address] Performed By: #### 5 7021-8 ####[facility] LABORATORYCLIA [id number] [address] Differential cell count method Nom (Bld) Auto Normal [facility] Comment on above: Order Comment: Speci men Type: BLOOD SPECIMENOrdering Facility: [facility] Address: [address] [place] [address] Performed By: #### 5 7021-8 ####[facility] LABORATORYCLIA [id number] [address] [place] [facility] Eosinophils (Bld) [#/Vol] 0.08 10*3/uL Normal <0.46 [facility] Comment on above: Order Comment: Speci men Type: BLOOD SPECIMENOrdering Facility: [facility] Address: [address] [place] [address] Performed By: #### 5 7021-8 ####GUZMAN LABORATORYCLIA [id number] [address] Eosinophils/100 WBC (Bld) 0.9 % Normal [facility] Comment on above: Order Comment: Speci men Type: BLOOD SPECIMENOrdering Facility: [facility] Address: [address] [place] [address] Performed By: #### 5 7021-8 ####GUZMAN LABORATORYCLIA [id number] [address] Erythrocyte distribution width (RBC) [Ratio] 14.4 % Normal 11.5-15.0 [facility] Comment on above: Order Comment: Speci men Type: BLOOD SPECIMENOrdering Facility: [facility] Address: [address] [place] [address] Performed By: #### 5 7021-8 ####GUZMAN LABORATORYCLIA [id number] [address] Hematocrit (Bld) [Volume fraction] 42.6 % Normal 39.0-51.0 [facility] Comment on above: Order Comment: Speci men Type: BLOOD SPECIMENOrdering Facility: [facility] Address: [address] [address] Performed By: #### 5 7021-8 ####GUZMAN LABORATORYCLIA [id number] [address] [place] Hemoglobin (Bld) [Mass/Vol] 14.5 g/dL Normal 13.0-17.0 [facility] Comment on above: Order Comment: Speci men Type: BLOOD SPECIMENOrdering Facility: [facility] Address: [address] [place] [address] Performed By: #### 5 7021-8 ####GUZMAN LABORATORYCLIA [id number] [address] [place] IMMATURE GRAN % 0.4 % Normal [facility] Comment on above: Order Comment: Speci men Type: BLOOD SPECIMENOrdering Facility: [facility] Address: [address] [place] [address] Performed By: #### 5 7021-8 ####GUZMAN LABORATORYCLIA [id number] [address] [place] IMMATURE GRAN ABS 0.04 k/uL Normal <0.10 [facility] Comment on above: Order Comment: Speci men Type: BLOOD SPECIMENOrdering Facility: [facility] Address: [address] [place] [address] Performed By: #### 5 7021-8 ####GUZMAN LABORATORYCLIA [id number] [place] [address] [place] Lymphocytes (Bld) [#/Vol] 1.34 10*3/uL Normal 1.00-4.00 [facility] Comment on above: Order Comment: Speci men Type: BLOOD SPECIMENOrdering Facility: [facility] Address: [address] [place] [address] Performed By: #### 5 7021-8 ####GUZMAN LABORATORYCLIA [id number] [address] Lymphocytes/100 WBC (Bld) 14.7 % Normal [facility] Comment on above: Order Comment: Speci men Type: BLOOD SPECIMENOrdering Facility: [facility] Address: [address] [address] Performed By: #### 5 7021-8 ####GUZMAN LABORATORYCLIA [id number] [address] MCH (RBC) [Entitic mass] 31.2 pg Normal 26.0-34.0 [facility] Comment on above: Order Comment: Speci men Type: BLOOD SPECIMENOrdering Facility: [facility] Address: [address] [place] [address] Performed By: #### 5 7021-8 ####GUZMAN LABORATORYCLIA [id number] [address] MCHC (RBC) [Mass/Vol] 34.0 g/dL Normal 30.5-36.0 [facility] Comment on above: Order Comment: Speci men Type: BLOOD SPECIMENOrdering Facility: [facility] Address: [address] [place] [address] Performed By: #### 5 7021-8 ####GUZMAN LABORATORYCLIA [id number] [address] MCV (RBC) [Entitic vol] 91.6 fL Normal 80.0-100.0 [facility] Comment on above: Order Comment: Speci men Type: BLOOD SPECIMENOrdering Facility: [facility] Address: [address] [place] [address] Performed By: #### 5 7021-8 ####GUZMAN LABORATORYCLIA [id number] [address] Monocytes (Bld) [#/Vol] 0.49 10*3/uL Normal <0.87 [facility] Comment on above: Order Comment: Speci men Type: BLOOD SPECIMENOrdering Facility: [facility] Address: [address] [place] [address] Performed By: #### 5 7021-8 ####GUZMAN LABORATORYCLIA [id number] [address] Monocytes/100 WBC (Bld) 5.4 % Normal [facility] Comment on above: Order Comment: Speci men Type: BLOOD SPECIMENOrdering Facility: [facility] Address: [address] [address] Performed By: #### 5 7021-8 ####GUZMAN LABORATORYCLIA [id number] [address] Neutrophils (Bld) [#/Vol] 7.14 10*3/uL Normal 1.45-7.50 [facility] Comment on above: Order Comment: Speci men Type: BLOOD SPECIMENOrdering Facility: [facility] Address: [address] [place] [address] Performed By: #### 5 7021-8 ####GUZMAN LABORATORYCLIA [id number] [address] Neutrophils/100 WBC (Bld) 78.3 % Normal [facility] Comment on above: Order Comment: Speci men Type: BLOOD SPECIMENOrdering Facility: [facility] Address: [address] [place] [address] Performed By: #### 5 7021-8 ####GUZMAN LABORATORYCLIA [id number] [place] [address] [place] Nucleated RBC (Bld) [#/Vol] 10*3/uL Normal <0.01 [facility] Comment on above: Order Comment: Speci men Type: BLOOD SPECIMENOrdering Facility: [facility] Address: [address] [place] [address] Performed By: #### 5 7021-8 ####GUZMAN LABORATORYCLIA [id number] [address] Nucleated RBC/100 WBC (Bld) [Ratio] 0.0 /100 WBC Normal [facility] Comment on above: Order Comment: Speci men Type: BLOOD SPECIMENOrdering Facility: [facility] Address: [address] [place] [address] Performed By: #### 5 7021-8 ####GUZMAN LABORATORYCLIA [id number] [address] [place] Platelet mean volume (Bld) [Entitic vol] 11.0 fL Normal 9.0-12.7 [facility] Comment on above: Order Comment: Speci men Type: BLOOD SPECIMENOrdering Facility: [facility] Address: [address] [place] [address] Performed By: #### 5 7021-8 ####GUZMAN LABORATORYCLIA [id number] [address] Platelets (Bld) [#/Vol] 121 10*3/uL Low 150-400 [facility] Comment on above: Order Comment: Speci men Type: BLOOD SPECIMENOrdering Facility: [facility] Address: [address] [place] [address] Result Comment: No c lot detected Performed By: #### 5 7021-8 ####GUZMAN LABORATORYCLIA [id number] [address] [place] RBC (Bld) [#/Vol] 4.65 10*6/uL Normal 4.20-6.00 [facility] Comment on above: Order Comment: Speci men Type: BLOOD SPECIMENOrdering Facility: [facility] Address: [address] [place] [address] Performed By: #### 5 7021-8 ####GUZMAN LABORATORYCLIA [id number] [address] WBC (Bld) [#/Vol] 9.12 10*3/uL Normal 3.70-11.00 [facility] Comment on above: Order Comment: Speci men Type: BLOOD SPECIMENOrdering Facility: [facility] Address: [address] [place] [address] Performed By: #### 5 7021-8 ####GUZMAN LABORATORYCLIA [id number] [address] CONSULT PROGon 01-09-2022 CONSULT PROG HNO ID: [id number] Author: Jayant Estrella MD Service: Infectious Disease Author Type: Physician Type: Consult Progress Note Filed: 01/09/2022 8:51 PM Note Text: INFECTIOUS DISEASE PROGRESS NOTE Patient Name: Mateus Manzano INTERVAL HISTORY: Right leg continues to be red and swollen but better. Serous drainage from leg blisters. Temperature curve appears to be trending down, AF>24 hrs. Creatinine is better at 0.92. Cultures are unrevealing to date. NO urinary symptoms. Review of systems checked in details. Patient Active Hospital Problem List: Sepsis ([facility]) (02/20/2021) Class 1 obesity due to excess calories with serious comorbidity and body mass index (BMI) of 34.0 to 34.9 in adult (06/25/2019) Urinary tract infection associated with indwelling urethral catheter ([facility]) (01/07/2022) Cellulitis of right leg (01/07/2022) Sepsis due to skin infection ([facility]) (01/07/2022) Acute non-recurrent maxillary sinusitis (01/07/2022) Atelectasis (01/07/2022) Tinea pedis of both feet (01/07/2022) ASSESSMENT: Cellulitis of right leg Sepsis due to skin infection Acute non-recurrent maxillary sinusitis Atelectasis Sepsis Class 1 obesity due to excess calories with serious comorbidity and body mass index (BMI) of 34.0 to 34.9 in adult Tinea pedis of both feet ? PLAN: Continue Ancef Wound cultures from leg MRI R leg wo contrast Monitor temperatures and counts Right leg elevation Doubt pneumonia given lack of symptoms from the respiratory standpoint Doubt urinary tract infection MEDICATIONS: reviewed. Current Facility-Administered Medications Medication Dose Route Frequency - NaCl 0.9% iv flush bag 20 mL INTRAVENOUS PRN - pregabalin 200 mg cap(s) (LYRICA) 200 mg ORAL BID - rivaroxaban 20 mg tab(s) (XARELTO) 20 mg ORAL AT BEDTIME - docusate sodium 100 mg cap(s) (COLACE) 100 mg ORAL BID - morphine SR 15 mg tab(s) (MS CONTIN, ORAMORPH SR) 15 mg ORAL BID - baclofen 10 mg tab(s) (LIORESAL) 10 mg ORAL BID - sodium chloride 0.9 % (flush) 2-10 mL (BD POSIFLUSH) 2-10 mL INTRAVENOUS q 12 H - docusate sodium 100 mg cap(s) (COLACE) 100 mg ORAL BID PRN - bisacodyl 10 mg suppository (DULCOLAX) 10 mg RECTAL DAILY PRN - zolpidem 5 mg tab(s) (AMBIEN) 5 mg ORAL AT BEDTIME PRN - sodium chloride 0.9 % (flush) 3-5 mL (BD POSIFLUSH) 3-5 mL INTRAVENOUS q 12 H - oxyCODONE IR 5 mg tab(s) (ROXICODONE) 5 mg ORAL q 3 H PRN - oxyCODONE IR 10 mg tab(s) (ROXICODONE) 10 mg ORAL q 3 H PRN - acetaminophen 1,000 mg tab(s) (TYLENOL) 1,000 mg ORAL q 8 H PRN - ondansetron (PF) 4 mg injection (ZOFRAN) 4 mg INTRAVENOUS q 6 H PRN - ondansetron orally disintegrating 8 mg tab(s) (ZOFRAN ODT) 8 mg ORAL q 6 H PRN - tiZANidine 2 mg tab(s) (ZANAFLEX) 2 mg ORAL BID - lidocaine 5 % ointment (XYLOCAINE) TOPICAL PRN - oxymetazoline 0.05 % 2 Mallie (GENASAL) 2 Mallie EACH NOSTRIL BID - albuterol 2.5 mg /3 mL (0.083 %) 1.25 mg (PROVENTIL) 1.25 mg INHALATION TID - clotrimazole 1 % (LOTRIMIN, CLOTRIM) TOPICAL BID - NaCl 0.9% iv infusion 100 mL/hr INTRAVENOUS CONTINUOUS - naloxegol 25 mg tab(s) (MOVANTIK) 25 mg ORAL DAILY - baclofen 100 % 625 mcg [facility]'s own pump [facility] INTRATHECAL CONTINUOUS - clomiPHENe 50 mg tab(s) (SEROPHENE) 50 mg ORAL q 48 HR - cabergoline 0.5 mg tab(s) (DOSTINEX) 0.5 mg ORAL MON and NINFA - ceFAZolin iv piggyback 2 g in D5W (iso-osmotic) 100 mL (ANCEF) 2 g INTRAVENOUS q 8 H PHYSICAL EXAM: Vital signs: BP 130/73 Pulse 80 Temp 36.7 ?C (98.1 ?F) (Oral) Resp 18 Wt 129.3 kg (285 lb) SpO2 100% BMI 34.69 kg/m? Temp (24hrs), Av.9 ?C (98.5 ?F), Min:36.7 ?C (98.1 ?F), Max:37.1 ?C (98.8 ?F) General: alert, oriented, NAD Lungs: bilaterally clear to auscultation Heart: regular rate and rhythm Abdomen: soft, non tender, non distended, BS+ Extremities: Right leg cellulitis w blisters, ant leg swelling No rashes No joint inflammation Neck supple Lines ok No CVAT Lines, Drains, and Airways Line Peripheral 01/09/22 1035 Right Hand 22 Gauge <1 day Labs: Recent Labs 01/09/22 0556 01/08/22 1506 01/07/22 1308 01/07/22 0730 01/07/22 0730 01/07/22 0546 01/07/22 0545 WBC 9.12 10.96 -- -- -- -- 15.94* HB 14.5 15.5 -- -- -- -- 18.5* PLT 121* 127* -- -- -- -- 147* INR -- -- -- -- -- 1.7* -- NA 139 141 -- -- 135* -- -- K 4.3 4.8 -- -- 4.1 -- -- CO2 27 32* -- -- 25 -- -- BUN 11 12 -- -- 19 -- -- CREAT 0.92 0.90 1.30* < > 1.02 -- -- AST -- -- -- -- 30 -- -- ALT -- -- -- -- 33 -- -- TBILI -- -- -- -- 0.5 -- -- ALKPHOS -- -- -- -- 82 -- -- LACT -- -- -- -- -- -- 1.7 < > = values in this interval not displayed. Microbiology data: reviewed Imaging data: reviewed Jayant Estrella MD [phone] 01/09/2022 3:45 PM Normal [facility] Renal function 2000 panelon 01-09-2022 Albumin [Mass/Vol] 2.6 g/dL Low 3.9-4.9 [facility] Comment on above: Order Comment: Augustina agry Type: BLOOD SPECIMENOrdering Facility: [facility] Address: [address] [place] [id number] Performed By: #### 2 4362-6 ####GUZMAN LABORATORYCLIA [id number] [place] [address] [place] Anion gap [Moles/Vol] 6 mmol/L Low 9-18 [facility] Comment on above: Order Comment: Speci men Type: BLOOD SPECIMENOrdering Facility: [facility] Address: [address] [place] [address] Performed By: #### 2 4362-6 ####GUZMAN LABORATORYCLIA [id number] [place] [address] [place] Calcium [Mass/Vol] 8.3 mg/dL Low 8.5-10.2 [facility] Comment on above: Order Comment: Speci men Type: BLOOD SPECIMENOrdering Facility: [facility] Address: [address] [place] [address] Performed By: #### 2 4362-6 ####GUZMAN LABORATORYCLIA [id number] [place] [address] [place] Chloride [Moles/Vol] 106 mmol/L High 97-105 [facility] Comment on above: Order Comment: Speci men Type: BLOOD SPECIMENOrdering Facility: [facility] Address: [address] [place] [address] Performed By: #### 2 4362-6 ####GUZMAN LABORATORYCLIA [id number] [place] [address] [place] CO2 [Moles/Vol] 27 mmol/L Normal 22-30 [facility] Comment on above: Order Comment: Speci men Type: BLOOD SPECIMENOrdering Facility: [facility] Address: [address] [place] [address] Performed By: #### 2 4362-6 ####GUZMAN LABORATORYCLIA [id number] [place] [address] [place] Creatinine [Mass/Vol] 0.92 mg/dL Normal 0.73-1.22 [facility] Comment on above: Order Comment: Speci men Type: BLOOD SPECIMENOrdering Facility: [facility] Address: [address] [place] [address] Performed By: #### 2 4362-6 ####GUZMAN LABORATORYCLIA [id number] [place] [address] [place] ESTIMATED GLOMERULAR FILTRATION RATE 110 mL/min/1.73m??? Normal >=60 [facility] Comment on above: Order Comment: Augustina gary Type: BLOOD SPECIMENOrdering Facility: [facility] Address: [address] [place], [place] [id number] Result Comment: Re mated Glomerular Filtration Rate (eGFR) is calculated using the 2020 CKD-EPI creatinine equation. This equation utilizes serum creatinine, sex, and age as parameters. The creatinine assay has traceable calibration to isotope dilution-mass spectrometry. Refer to KDIGO guidelines for clinical interpretation. In patients with unstable renal function, e.g. those with acute kidney injury, the eGFR may not accurately reflect actual GFR. Performed By: #### 2 4362-6 ####[facility] LABORATORYCLIA [id number] [place] [address] [place] Glucose [Mass/Vol] 96 mg/dL Normal 74-99 [facility] Comment on above: Order Comment: Augustina gary Type: BLOOD SPECIMENOrdering Facility: [facility] Address: [address] [place] [address] Result Comment: The [place] Diabetes Association (ADA) provides guidance for cutoff values for fasting glucose and random glucose. The ADA defines fasting as no caloric intake for at least 8 hours. Fasting plasma glucose results between 100 to 125 mg/dL indicate increased risk for diabetes (prediabetes). Fasting plasma glucose results greater than or equal to 126 mg/dL meet the criteria for diagnosis of diabetes. In the absence of unequivocal hyperglycemia, results should be confirmed by repeat testing. In a patient with classic symptoms of hyperglycemia or hyperglycemic crisis, random plasma glucose results greater than or equal to 200 mg/dL meet the criteria for diagnosis of diabetes. Reference: Standards of Medical Care in Diabetes 2016, [place] [employer]. Diabetes Care. 2016.39(Suppl 1). Performed By: #### 2 4362-6 ####GUZMAN LABORATORYCLIA [id number] [place] [address] [place] Phosphate [Mass/Vol] 2.9 mg/dL Normal 2.7-4.8 [facility] Comment on above: Order Comment: Speci men Type: BLOOD SPECIMENOrdering Facility: [facility] Address: [address] [place] [address] Performed By: #### 2 4362-6 ####GUZMAN LABORATORYCLIA [id number] [place] [address] [place] Potassium [Moles/Vol] 4.3 mmol/L Normal 3.7-5.1 [facility] Comment on above: Order Comment: Speci men Type: BLOOD SPECIMENOrdering Facility: [facility] Address: [address] [place] [address] Performed By: #### 2 4362-6 ####GUZMAN LABORATORYCLIA [id number] [address] [place] Sodium [Moles/Vol] 139 mmol/L Normal 136-144 [facility] Comment on above: Order Comment: Speci men Type: BLOOD SPECIMENOrdering Facility: [facility] Address: [address] [place] [address] Performed By: #### 2 4362-6 ####GUZMAN LABORATORYCLIA [id number] [place] [address] [place] Urea nitrogen [Mass/Vol] 11 mg/dL Normal 9-24 [facility] Comment on above: Order Comment: Speci men Type: BLOOD SPECIMENOrdering Facility: [facility] Address: [address] [place] [address] Performed By: #### 2 4362-6 ####GUZMAN LABORATORYCLIA [id number] [place] [address] [place] ALLIED HEALTHon 01-08-2022 ALLIED HEALTH HNO ID: [id number] Author: Liane Pino, GINNY Service: Radiology Author Type: Technologist Type: Allied Health Filed: 01/08/2022 9:28 AM Note Text: Radiology Service Progress Note PATIENT NAME: Mateus Manzano DATE OF SERVICE: January 08, 2022 TIME: 9:28 AM PATIENT IDENTITY VERIFICATION COMPLETED USING TWO (2) IDENTIFIERS: Name and Date of confirmed by patient verbally and Name and Date of confirmed by identification band. FALL SCREENING: Has the patient had 2 falls in the last year or 1 fall with injury or currently using an Ambulatory Assistive Device (Walker, Cane, Wheelchair, Crutches, etc.)? Inpatient: Screened on floor PATIENT GENDER DATA: Male PATIENT RELEVANT IMPLANT DATA REVIEWED: Not Applicable RADIOLOGY DEPARTMENT: CT; Exam(s) Completed: Upper extremity PERIPHERAL IV DATA: Not applicable SIGNED BY: Liane Pino, CT January 08, 2022 9:28 AM [facility] CASE [facility] H[facility] [id number] Author: Toma Manning RN Service: Case Management Author Type: Registered Nurse Type: Care Mgt Initial Assessment Filed: 01/08/2022 11:26 AM Note Text: CARE MANAGEMENT: ASSESSMENT AND DISCHARGE PLAN SERVICE DATE: January 08, 2022 SERVICE TIME: 11:24 AM PRIMARY CARE PHYSICIAN: Anay Roque MD, confirmed Primary Contact: Extended Emergency Contact Information Primary Emergency Contact: Tana Manzano Address: [address] [place] [id number] Relation: Spouse ADMISSION STATUS: Inpatient Insurance Provider[facility] MEDICARE NEEDS PRIOR TO DISCHARGE Needs Prior to Discharge: Other: See Comment (medical clearance) POTENTIAL TRANSITION PLANS Home Based on clinical judgement, Care Management will address the following needs: Medical Patient's perception of need for this admission: Sepsis ADVANCE DIRECTIVES Current Advance Directive: Health Care Power of [place] Maintenance;Living Will In Chart: No MS/BEHAVIOR Baseline Mental Status Prior to this Illness what was the patient's Baseline Mental Status?: Alert AND Oriented Prior to this illness, has anyone described the patient having any of the following behaviors?: Not Applicable Relationship of the informant to the patient:: Self READMISSION Last Discharge Date: 11/14/21 Is this Within the Past 30 days? 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 Use of any community resources?: No Does the patient have a stable and supportive living arrangement and home setting?: Yes Situation: Patient from home with and 3 kids (ages 5, 6 and 14). Are there any potential risks or gaps identified by risk/functional/fall,etc. scores in the EMR?: No Any potential risks related to substance abuse and/or behavioral health?: No Based on clinical judgement, Care Management will address the following needs: Medical CAREGIVER ASSESSMENT Caregiver is ready, willing and able to meet the patient's needs as recommended by the inter-professional team:: Other: See Comment (DC needs TBD.) Patient's transition needs and plan for meeting these needs: DC needs TBD. MEDICAL Medical Needs: Two or more chronic diseases Health Issues Impacting Discharge Plan: Newly diagnosed Newly Diagnosed: Sepsis r/t RLE cellulitis Medication Adherance I am convinced of the importance of my prescription medication: 0 - Agree Completely I worry that my prescription medication will do more harm than good to me : 0 - Disagree Completely I feel financially burdened by my [id number] expenses for my prescription medication:: 0 - Disagree Completely Risk Score: 0 Patient is categorized as: Low risk < 2 No social discharge barriers identified at this time. No behavioral/cognitive discharge barriers identified at this time. No functional discharge barriers identified at this time. FREEDOM OF CHOICE EXPLAINED: [place] of Choice Given: No Reason Not Given: No placements necessary Are you interested in bedside delivery of your medications? No , [facility] in [place] ASSESSMENT AND PLAN: EMR reviewed. Patient admitted with sepsis. ID following. RNCM spoke to patient's father at bedside to complete assessment. Patient was asleep. 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 He uses a WC at baseline. to transport upon DC. CM assigned will continue to follow for DC planning needs. SIGNATURE: Toma Manning RN PATIENT NAME: Mateus Manzano DATE: January 08, 2022 TIME: 11:24 AM CONTACT #: [phone] [facility] CBC W Auto Differential pane l (Bld)on 01-08-2022 Basophils/100 WBC (Bld) 0.0 % [facility] Comment on above: Order Comment: Speci men Type: BLOOD SPECIMENOrdering Facility: [facility] Address: [address] [place] [address] [place] [address] Performed By: #### 5 7021-8 ####[facility] LABORATORYCLIA [id number] [address] Differential cell count method Nom (Bld) Manual Normal [facility] Comment on above: Order Comment: Speci men Type: BLOOD SPECIMENOrdering Facility: [facility] Address: [address] [place] [address] Performed By: #### 5 7021-8 ####GUZMAN LABORATORYCLIA [id number] [place] [address] [place] Eosinophils (Bld) [#/Vol] 0.22 10*3/uL Normal <0.46 [facility] Comment on above: Order Comment: Speci men Type: BLOOD SPECIMENOrdering Facility: [facility] [facility] Address: [address] [place] [address] Performed By: #### 5 7021-8 ####[facility]ZMAN LABORATORYCLIA [id number] [address] Eosinophils/100 WBC (Bld) 2.0 % Normal [facility] Comment on above: Order Comment: Speci men Type: BLOOD SPECIMENOrdering Facility: [facility] Address: [address] [place] [address] Performed By: #### 5 7021-8 ####GUZMAN LABORATORYCLIA [id number] [address] [place] Erythrocyte distribution width (RBC) [Ratio] 14.6 % Normal 11.5-15.0 [facility] Comment on above: Order Comment: Speci men Type: BLOOD SPECIMENOrdering Facility: [facility] Address: [address] [place] [address] Performed By: #### 5 7021-8 ####GUZMAN LABORATORYCLIA [id number] [address] Hematocrit (Bld) [Volume fraction] 46.9 % Normal 39.0-51.0 [facility] Comment on above: Order Comment: Speci men Type: BLOOD SPECIMENOrdering Facility: [facility] Address: [address] [address] Performed By: #### 5 7021-8 ####GUZMAN LABORATORYCLIA [id number] [place] [address] [place] Hemoglobin (Bld) [Mass/Vol] 15.5 g/dL Normal 13.0-17.0 [facility] Comment on above: Order Comment: Speci men Type: BLOOD SPECIMENOrdering Facility: [facility] Address: [address] [place] [address] Performed By: #### 5 7021-8 ####GUZMAN LABORATORYCLIA [id number] [place] [address] [place] Lymphocytes (Bld) [#/Vol] 1.10 10*3/uL Normal 1.00-4.00 [facility] Comment on above: Order Comment: Speci men Type: BLOOD SPECIMENOrdering Facility: [facility] Address: [address] [place] [address] Performed By: #### 5 7021-8 ####GUZMAN LABORATORYCLIA [id number] [address] [place] [facility] Lymphocytes/100 WBC (Bld) 10.0 % Normal [facility] Comment on above: Order Comment: Speci men Type: BLOOD SPECIMENOrdering Facility: [facility] Address: [address] [place] [address] Performed By: #### 5 7021-8 ####GUZMAN LABORATORYCLIA [id number] [place] [address] [place] MCH (RBC) [Entitic mass] 31.0 pg Normal 26.0-34.0 [facility] Comment on above: Order Comment: Speci men Type: BLOOD SPECIMENOrdering Facility: [facility] Address: [address] [place] [address] Performed By: #### 5 7021-8 ####GUZMAN LABORATORYCLIA [id number] [place] [address] [place] MCHC (RBC) [Mass/Vol] 33.0 g/dL Normal 30.5-36.0 [facility] Comment on above: Order Comment: Speci men Type: BLOOD SPECIMENOrdering Facility: [facility] Address: [address] [place] [address] Performed By: #### 5 7021-8 ####GUZMAN LABORATORYCLIA [id number] [address] [place] MCV (RBC) [Entitic vol] 93.8 fL Normal 80.0-100.0 [facility] Comment on above: Order Comment: Speci men Type: BLOOD SPECIMENOrdering Facility: [facility] Address: [address] [place] [address] Performed By: #### 5 7021-8 ####GUZMAN LABORATORYCLIA [id number] [place] [address] [place] Neutrophils (Bld) [#/Vol] 9.54 10*3/uL High 1.45-7.50 [facility] Comment on above: Order Comment: Speci men Type: BLOOD SPECIMENOrdering Facility: [facility] Address: [address] [place] [address] Performed By: #### 5 7021-8 ####GUZMAN LABORATORYCLIA [id number] [address] [place] Neutrophils/100 WBC (Bld) 87.0 % Normal [facility] Comment on above: Order Comment: Speci men Type: BLOOD SPECIMENOrdering Facility: [facility] Address: [address] [place] [address] Performed By: #### 5 7021-8 ####GUZMAN LABORATORYCLIA [id number] [place] [address] [place] Nucleated RBC/100 WBC (Bld) [Ratio] 0.0 /100 WBC Normal [facility] Comment on above: Order Comment: Speci men Type: BLOOD SPECIMENOrdering Facility: [facility] Address: [address] [place] [address] Performed By: #### 5 7021-8 ####GUZMAN LABORATORYCLIA [id number] [place] [address] [place] PLATELET ESTIMATE Decreased Normal [facility] Comment on above: Order Comment: Speci men Type: BLOOD SPECIMENOrdering Facility: [facility] Address: [address] [place] [address] Performed By: #### 5 7021-8 ####GUZMAN LABORATORYCLIA [id number] [address] Platelet mean volume (Bld) [Entitic vol] 11.5 fL Normal 9.0-12.7 [facility] Comment on above: Order Comment: Speci men Type: BLOOD SPECIMENOrdering Facility: [facility] Address: [address] [place] [address] Performed By: #### 5 7021-8 ####GUZMAN LABORATORYCLIA [id number] [address] Platelets (Bld) [#/Vol] 127 10*3/uL Low 150-400 [facility] Comment on above: Order Comment: Speci men Type: BLOOD SPECIMENOrdering Facility: [facility] Address: [address] [place] [address] Result Comment: No c lot detected Performed By: #### 5 7021-8 ####GUZMAN LABORATORYCLIA [id number] [address] OF [place] RBC (Bld) [#/Vol] 5.00 10*6/uL Normal 4.20-6.00 [facility] Comment on above: Order Comment: Speci men Type: BLOOD SPECIMENOrdering Facility: [facility] Address: [address] [place] [address] Performed By: #### 5 7021-8 ####GUZMAN LABORATORYCLIA [id number] [address] RED CELL MORPH Reviewed: unremarkable Normal [facility] Comment on above: Order Comment: Speci men Type: BLOOD SPECIMENOrdering Facility: [facility] Address: [address] [place], [place] [address] Performed By: #### 5 7021-8 ####GUZMAN LABORATORYCLIA [id number] [address] [place] WAM - ABS BASO 0.00 k/uL Normal <0.11 [facility] Comment on above: Order Comment: Speci men Type: BLOOD SPECIMENOrdering Facility: [facility] Address: [address] [place] [address] Performed By: #### 5 7021-8 ####GUZMAN LABORATORYCLIA [id number] [address] WAM - ABS MONO 0.11 k/uL Normal <0.87 [facility] Comment on above: Order Comment: Speci men Type: BLOOD SPECIMENOrdering Facility: [facility] Address: [address] [place] [address] Performed By: #### 5 7021-8 ####GUZMAN LABORATORYCLIA [id number] [address] WAM - MONO% 1.0 % Normal [facility] Comment on above: Order Comment: Speci men Type: BLOOD SPECIMENOrdering Facility: [facility] Address: [address] [place] [address] Performed By: #### 5 7021-8 ####GUZMAN LABORATORYCLIA [id number] [address] WAM ABSOLUTE NRBC <0.01 Normal <0.01 [facility] Comment on above: Order Comment: Speci men Type: BLOOD SPECIMENOrdering Facility: [facility] Address: [address] [place] [address] Performed By: #### 5 7021-8 ####GUZMAN LABORATORYCLIA [id number] [address] WBC (Bld) [#/Vol] 10.96 10*3/uL Normal 3.70-11.00 [facility] Comment on above: Order Comment: Speci men Type: BLOOD SPECIMENOrdering Facility: [facility] Address: [address] [place] [address] Performed By: #### 5 7021-8 ####GUZMAN LABORATORYCLIA [id number] [address] WBC Left Shift Ql (Bld) Present Normal [facility] Comment on above: Order Comment: Speci men Type: BLOOD SPECIMENOrdering Facility: [facility] Address: [address] [place] [address] Performed By: #### 5 7021-8 ####[facility] LABORATORYCLIA [id number] [place] [address] [place] CONSULT PROGon 01-08-2022 CONSULT PROG HNO ID: [id number] Author: Merlene Gates [facility] Service: Pharmacy Author Type: Pharmacist Type: Consult Progress Note Filed: 01/08/2022 11:47 AM Note Text: PHARMACY VANCOMYCIN DOSING NOTE Patient Name: Mateus Manzano Admission Date: 01/07/2022 Date of Consult: 01/08/2022 Time of Consult: 11:47 AM 1. Vancomycin therapy has been discontinued. Vancomycin level(s) have been discontinued: Yes. Pharmacy vancomycin dosing service will sign off. Thank you for allowing us to participate in this patient's care. Please contact pharmacy if there are questions. Merlene Gates [facility] CONSULT PROG HNO ID: [id number] Author: Jayant Estrella MD Service: Infectious Disease Author Type: Physician Type: Consult Progress Note Filed: 01/08/2022 11:05 AM Note Text: INFECTIOUS DISEASE PROGRESS NOTE Patient Name: Mateus Manzano INTERVAL HISTORY: Transferred to [facility] due to better accessibility for his wheelchair. Right leg continues to be red and swollen. Temperature curve appears to be trending down. Creatinine is worsening to 1.3. Cultures are unrevealing to date. Review of systems checked in details. Patient Active Hospital Problem List: Sepsis ([facility]) (02/20/2021) Class 1 obesity due to excess calories with serious comorbidity and body mass index (BMI) of 34.0 to 34.9 in adult (06/25/2019) Urinary tract infection associated with indwelling urethral catheter (HCC) (01/07/2022) Cellulitis of right leg (01/07/2022) Sepsis due to skin infection ([facility]) (01/07/2022) Acute non-recurrent maxillary sinusitis (01/07/2022) Atelectasis (01/07/2022) Tinea pedis of both feet (01/07/2022) ASSESSMENT: Cellulitis of right leg Sepsis due to skin infection Acute non-recurrent maxillary sinusitis Atelectasis Sepsis Class 1 obesity due to excess calories with serious comorbidity and body mass index (BMI) of 34.0 to 34.9 in adult Tinea pedis of both feet ? PLAN: Stop vancomycin and ceftriaxone Start Ancef Follow cultures Monitor temperatures and counts Right leg elevation Will need chronic compression once cellulitis is controlled Doubt pneumonia given lack of symptoms from the respiratory standpoint Doubt urinary tract infection MEDICATIONS: reviewed. Current Facility-Administered Medications Medication Dose Route Frequency - NaCl 0.9% iv flush bag 20 mL INTRAVENOUS PRN - vancomycin dosing and monitoring per pharmacy OTHER As Directed - vancomycin 1.75 g in D5W 500 mL (VANCOCIN) 1.75 g INTRAVENOUS q 12 HR - cefTRIAXone iv piggyback 1 g in dextrose (iso-osmotic) 50 mL (ROCEPHIN) 1 g INTRAVENOUS q 24 H - pregabalin 200 mg cap(s) (LYRICA) 200 mg ORAL BID - rivaroxaban 20 mg tab(s) (XARELTO) 20 mg ORAL AT BEDTIME - docusate sodium 100 mg cap(s) (COLACE) 100 mg ORAL BID - morphine SR 15 mg tab(s) (MS CONTIN, ORAMORPH SR) 15 mg ORAL BID - baclofen 10 mg tab(s) (LIORESAL) 10 mg ORAL BID - sodium chloride 0.9 % (flush) 2-10 mL (BD POSIFLUSH) 2-10 mL INTRAVENOUS q 12 H - docusate sodium 100 mg cap(s) (COLACE) 100 mg ORAL BID PRN - bisacodyl 10 mg suppository (DULCOLAX) 10 mg RECTAL DAILY PRN - zolpidem 5 mg tab(s) (AMBIEN) 5 mg ORAL AT BEDTIME PRN - sodium chloride 0.9 % (flush) 3-5 mL (BD POSIFLUSH) 3-5 mL INTRAVENOUS q 12 H - oxyCODONE IR 5 mg tab(s) (ROXICODONE) 5 mg ORAL q 3 H PRN - oxyCODONE IR 10 mg tab(s) (ROXICODONE) 10 mg ORAL q 3 H PRN - acetaminophen 1,000 mg tab(s) (TYLENOL) 1,000 mg ORAL q 8 H PRN - ondansetron (PF) 4 mg injection (ZOFRAN) 4 mg INTRAVENOUS q 6 H PRN - ondansetron orally disintegrating 8 mg tab(s) (ZOFRAN ODT) 8 mg ORAL q 6 H PRN - tiZANidine 2 mg tab(s) (ZANAFLEX) 2 mg ORAL BID - lidocaine 5 % ointment (XYLOCAINE) TOPICAL PRN - oxymetazoline 0.05 % 2 Mallie (GENASAL) 2 Mallie EACH NOSTRIL BID - sodium chloride 0.65 % 2 Mallie (AYR, OCEAN) 2 Mallie EACH NOSTRIL TID - albuterol 2.5 mg /3 mL (0.083 %) 1.25 mg (PROVENTIL) 1.25 mg INHALATION TID - clotrimazole 1 % (LOTRIMIN, CLOTRIM) TOPICAL BID - NaCl 0.9% iv infusion 100 mL/hr INTRAVENOUS CONTINUOUS - naloxegol 25 mg tab(s) (MOVANTIK) 25 mg ORAL DAILY - baclofen 100 % 625 mcg patient's own pump - [facility] INTRATHECAL CONTINUOUS - clomiPHENe 50 mg tab(s) (SEROPHENE) 50 mg ORAL q 48 HR - [START ON 01/09/2022] cabergoline 0.5 mg tab(s) (DOSTINEX) 0.5 mg ORAL MON and NINFA PHYSICAL EXAM: Vital signs: BP 104/60 Pulse 87 Temp 36.9 ?C (98.4 ?F) (Oral) Resp 16 Wt 129.3 kg (285 lb) SpO2 94% BMI 34.69 kg/m? Temp (24hrs), Av.7 ?C (99.9 ?F), Min:36.5 ?C (97.7 ?F), Max:39.3 ?C (102.8 ?F) General: alert, oriented, NAD Lungs: bilaterally clear to auscultation Heart: regular rate and rhythm Abdomen: soft, non tender, non distended, BS+ Extremities: Right leg cellulitis No rashes No joint inflammation Neck supple Lines ok No CVAT Lines, Drains, and Airways Line Peripheral 01/07/22 0704 Right Antecubital 20 Gauge 1 day Labs: Recent Labs 01/07/22 1308 01/07/22 0730 01/07/22 0546 01/07/22 0545 WBC -- -- -- 15.94* HB -- -- -- 18.5* PLT -- -- -- 147* INR -- -- 1.7* -- NA -- 135* -- -- K -- 4.1 -- -- CO2 -- 25 -- -- BUN -- 19 -- -- CREAT 1.30* 1.02 -- -- AST -- 30 -- -- ALT -- 33 -- -- TBILI -- 0.5 -- -- ALKPHOS -- 82 -- -- LACT -- -- -- 1.7 Microbiology data: reviewed Imaging data: reviewed Jayant Estrella MD Pager: Date of service: 01/08/2022 Time of service: 11:03 AM This note is not final until Authenticated by responsible provider. Normal [facility] CT SHOULDER WO IVCON RTon CT SHOULDER WO IVCON RT * * *Final Report* * * DATE OF EXAM: Jan 08 2022 9:31AM [facility] [place]OULDER WO IVCON RT / PROCEDURE REASON: Shoulder pain, chronic, osteoarthritis suspected * * * * Physician Interpretation * * * * INDICATION: Shoulder pain, chronic, osteoarthritis suspected EXAMINATION: CT SHOULDER WO IVCON RT COMPARISON:None RESULT: CT Radiation dose: Integrated Dose-length product (DLP) for this visit = 438 mGy*cm. CT Dose Reduction Employed: Automated exposure control (AEC) There is no evidence for fracture or dislocation of the right shoulder. There is no significant arthritic change involving the glenohumeral joint. There is minor arthritic change involving the AC joint. There is no joint effusion. No periarticular soft tissue abnormality identified. Visualized portions of the right lung unremarkable. Chronic appearing cystic change noted involving the transverse process of T5. Patient status post laminectomy at T5 IMPRESSION: No acute abnormality involving the right shoulder. No periarticular soft tissue abnormality or joint effusion detected. Minor arthritic change involving the right AC joint. Incidentally noted chronic-appearing cystic change involving the transverse process of T5 on the right. Status post laminectomy at T5. [employer] Transcribe Date/Time: Jan 08 2022 12:09P Dictated by : ALDEN GAO MD This examination was interpreted and the report reviewed and electronically signed by: ALDEN GAO MD on Jan 08 2022 12:28PM EST [id number] Normal [facility] Magnesium SerPl-mCncon 01-08 Magnesium [Mass/Vol] 1.9 mg/dL Normal 1.7-2.3 [facility] Comment on above: Order Comment: Speci men Type: BLOOD SPECIMENOrdering Facility: [facility] Address: [address] [place] [address] Performed By: #### 1 9123-9 ####GUZMAN LABORATORYCLIA [id number] [address] OF [place] Renal function 2000 panelon 01-08-2022 Albumin [Mass/Vol] 2.8 g/dL Low 3.9-4.9 [facility] Comment on above: Order Comment: Speci men Type: BLOOD SPECIMENOrdering Facility: [facility] Address: [address] [place] [address] Performed By: #### 2 4362-6 ####GUZMAN LABORATORYCLIA [id number] [place] [address] [place] Anion gap [Moles/Vol] 5 mmol/L Low 9-18 [facility] Comment on above: Order Comment: Speci men Type: BLOOD SPECIMENOrdering Facility: [facility] Address: [address] [place] [address] Performed By: #### 2 4362-6 ####GUZMAN LABORATORYCLIA [id number] [place] [address] [place] Calcium [Mass/Vol] 8.5 mg/dL Normal 8.5-10.2 [facility] Comment on above: Order Comment: Speci men Type: BLOOD SPECIMENOrdering Facility: [facility] Address: [address] [place] [address] Performed By: #### 2 4362-6 ####GUZMAN LABORATORYCLIA [id number] [place] [address] [place] Chloride [Moles/Vol] 104 mmol/L Normal 97-105 [facility] Comment on above: Order Comment: Speci men Type: BLOOD SPECIMENOrdering Facility: [facility] Address: [address] [place] [address] Performed By: #### 2 4362-6 ####GUZMAN LABORATORYCLIA [id number] [address] [place] CO2 [Moles/Vol] 32 mmol/L High 22-30 [facility] Comment on above: Order Comment: Speci men Type: BLOOD SPECIMENOrdering Facility: [facility] Address: [address] [place] [address] Performed By: #### 2 4362-6 ####GUZMAN LABORATORYCLIA [id number] [address] STATES OF [facility] Creatinine [Mass/Vol] 0.90 mg/dL Normal 0.73-1.22 [facility] Comment on above: Order Comment: Speci men Type: BLOOD SPECIMENOrdering Facility: [facility] Address: [address] [place] [address] Performed By: #### 2 4362-6 ####GUZMAN LABORATORYCLIA [id number] [address] ESTIMATED GLOMERULAR FILTRATION RATE 113 mL/min/1.73m??? Normal >=60 [facility] Comment on above: Order Comment: Speci men Type: BLOOD SPECIMENOrdering Facility: [facility] Address: [address] [place] [address] Result Comment: Re mated Glomerular Filtration Rate (eGFR) is calculated using the 2020 CKD-EPI creatinine equation. This equation utilizes serum creatinine, sex, and age as parameters. The creatinine assay has traceable calibration to isotope dilution-mass spectrometry. Refer to KDIGO guidelines for clinical interpretation. In patients with unstable renal function, e.g. those with acute kidney injury, the eGFR may not accurately reflect actual GFR. Performed By: #### 2 4362-6 ####GUZMAN LABORATORYCLIA [id number] [address] [place] Glucose [Mass/Vol] 96 mg/dL Normal 74-99 [facility] Comment on above: Order Comment: Speci men Type: BLOOD SPECIMENOrdering Facility: [facility] Address: [address] [address] Result Comment: The [place] Diabetes [employer] (ADA) provides guidance for cutoff values for fasting glucose and random glucose. The ADA defines fasting as no caloric intake for at least 8 hours. Fasting plasma glucose results between 100 to 125 mg/dL indicate increased risk for diabetes (prediabetes). Fasting plasma glucose results greater than or equal to 126 mg/dL meet the criteria for diagnosis of diabetes. In the absence of unequivocal hyperglycemia, results should be confirmed by repeat testing. In a patient with classic symptoms of hyperglycemia or hyperglycemic crisis, random plasma glucose results greater than or equal to 200 mg/dL meet the criteria for diagnosis of diabetes. Reference: Standards of Medical Care in Diabetes 2016, [place] [employer]. Diabetes Care. 2016.39(Suppl 1). Performed By: #### 2 4362-6 ####GU[facility]MAN LABORATORYCLIA [id number] [place] [address] [place] Phosphate [Mass/Vol] 2.7 mg/dL Normal 2.7-4.8 [facility] Comment on above: Order Comment: Augustina cooike Type: BLOOD SPECIMENOrdering Facility: [facility] Address: [address] [address] Performed By: #### 2 4362-6 ####[facility] LABORATORYCLIA [id number] [place] [address] [place] Potassium [Moles/Vol] 4.8 mmol/L Normal 3.7-5.1 [facility] Comment on above: Order Comment: Augustina cookie Type: BLOOD SPECIMENOrdering Facility: [facility] Address: [address] [address] Performed By: #### 2 4362-6 ####GUZMAN LABORATORYCLIA [id number] [place] [address] [place] Sodium [Moles/Vol] 141 mmol/L Normal 136-144 [facility] Comment on above: Order Comment: Augustina cookie Type: BLOOD SPECIMENOrdering Facility: [facility] Address: [address] Performed By: #### 2 4362-6 ####[facility]MAN LABORATORYCLIA [id number] [address] [place] Urea nitrogen [Mass/Vol] 12 mg/dL Normal 9-24 [facility] Comment on above: Order Comment: Speci men Type: BLOOD SPECIMENOrdering Facility: [facility] Address: [address] [place], [place] [address] Performed By: #### 2 436-6 ####[facility] LABORATORYCLIA [id number] [address] [place] ALLIED HEALTHon 01-07-2022 ALLIED HEALTH HNO ID: [id number] Author: RT Rose(R) Service: Radiology Author Type: Technologist Type: Allied Health Filed: 01/07/2022 6:04 AM Note Text: Radiology Service Progress Note PATIENT NAME: Mateus Manzano DATE OF SERVICE: January 07, 2022 TIME: 6:04 AM PATIENT IDENTITY VERIFICATION COMPLETED USING TWO (2) IDENTIFIERS: Name and Date of confirmed by patient verbally. FALL SCREENING: Has the patient had 2 falls in the last year or 1 fall with injury or currently using an Ambulatory Assistive Device (Walker, Cane, Wheelchair, Crutches, etc.)? Emergency Room Patient: Screened in ED PATIENT GENDER DATA: Male PATIENT RELEVANT IMPLANT DATA REVIEWED: Not Applicable RADIOLOGY DEPARTMENT: General X-ray: Exam(s) Completed: Chest X-Ray PERIPHERAL IV DATA: Not applicable SIGNED BY: RT Rose(R) January 07, 2022 6:04 AM [facility] Bacteria Bld Culton 01-08-20 22 Bacteria identified Cx Nom (Bld) CULTURE, BLOOD: No growth 5 days Normal [facility] Comment on above: Performed By: #### 6 -7 ####[facility] LABCLIA [id number] [address] Bacteria identified Cx Nom (Bld) CULTURE, BLOOD: No growth 5 days Normal [facility] Comment on above: Performed By: #### 6 -7 ####[facility] LABCLIA [id number] [address] [place] Bacteria Ur Culton 2 Bacteria identified Cx Nom (U) ORGANISM ID: 1 >=100,000 CFU/ml Escherichia coli ORGANISM ID: 1 (ESCHERICHIA COLI) --------- ANTIBIOTIC INTERPRETATION JUSTYN STATUS REFERENCE RANGE --------- Ampicillin R >=32 F Susceptible <=8 , Intermediate >8 , Resistant >16 Ampicillin/Sulbact I 16 F Susceptible <=8 , Intermediate >8 , Resistant >16 Cefazolin S <=4 F Susceptible 0-16 , Intermediate <0 or >16 , Resistant >16 Cefepime S <=1 F Susceptible <=2 , Intermediate >2 , Resistant >=16 Ceftriaxone S <=1 F Susceptible <=1 , Intermediate >1 , Resistant >=4 Ciprofloxacin S <=0.25 F Susceptible <0.5 , Intermediate >=.5 , Resistant >=1 Ertapenem S <=0.5 F Susceptible <=0.5 , Intermediate >.5 , Resistant >1 Gentamicin S <=1 F Susceptible <=4 , Intermediate >4 , Resistant >8 Meropenem S <=0.25 F Susceptible <=1 , Intermediate >1 , Resistant >2 Nitrofurantoin S <=16 F Susceptible <=32 , Intermediate >32 , Resistant >64 Piperacillin/Tazobac S <=4 F Susceptible <=16 , Intermediate >16 , Resistant >64 Tobramycin S <=1 F Susceptible <=4 , Intermediate >4 , Resistant >8 Trimeth sulfameth S <=20 F Susceptible <=40 , Resistant >40 Abnormal [facility] Comment on above: Performed By: #### 6 30-4 ####[facility] LABCLIA [id number] [facility] [address] [address] [place] CBC W Auto Differential pane l (Bld)on 01-07-2022 Band form neutrophils/100 WBC (Bld) 0.0 % Normal [facility] Comment on above: Order Comment: Speci men Type: BLOOD SPECIMENOrdering Facility: [facility] Address: [address] [place] [address] Performed By: #### 5 7021-8 ####[facility] LABORATORYCLIA [id number] [address] Basophils/100 WBC (Bld) 0.0 % Normal [facility] Comment on above: Order Comment: Speci men Type: BLOOD SPECIMENOrdering Facility: [facility] Address: [address] [place] [address] Performed By: #### 5 7021-8 ####[facility] LABORATORYCLIA [id number] [address] [place] BLAST% 0.0 % Normal <=0.0 [facility] Comment on above: Order Comment: Speci men Type: BLOOD SPECIMENOrdering Facility: [facility] Address: [address] [place] [address] Performed By: #### 5 7021-8 ####[facility] LABORATORYCLIA [id number] [address] [place] Differential cell count method Nom (Bld) Manual Normal [facility] Comment on above: Order Comment: Speci men Type: BLOOD SPECIMENOrdering Facility: [facility] Address: [address] [place] [address] Performed By: #### 5 7021-8 ####[facility] LABORATORYCLIA [id number] [place] [address] [place] Eosinophils (Bld) [#/Vol] 0.00 10*3/uL Normal <0.46 [facility] Comment on above: Order Comment: Speci men Type: BLOOD SPECIMENOrdering Facility: [facility] Address: [address] [place] [address] Performed By: #### 5 7021-8 ####[facility] LABORATORYCLIA [id number] [address] [place] Eosinophils/100 WBC (Bld) 0.0 % Normal [facility] Comment on above: Order Comment: Speci men Type: BLOOD SPECIMENOrdering Facility: [facility] Address: [address] [place] [address] Performed By: #### 5 7021-8 ####[facility] LABORATORYCLIA [id number] [address] [place] Erythrocyte distribution width (RBC) [Ratio] 14.4 % Normal 11.5-15.0 [facility] Comment on above: Order Comment: Speci men Type: BLOOD SPECIMENOrdering Facility: [facility] Address: [address] [place] [address] Performed By: #### 5 7021-8 ####[facility] LABORATORYCLIA [id number] [address] [place] Hematocrit (Bld) [Volume fraction] 55.1 % High 39.0-51.0 [facility] Comment on above: Order Comment: Speci men Type: BLOOD SPECIMENOrdering Facility: [facility] Address: [address] [place] [address] Performed By: #### 5 7021-8 ####[facility] LABORATORYCLIA [id number] [place] [address] [place] Hemoglobin (Bld) [Mass/Vol] 18.5 g/dL High 13.0-17.0 [facility] Comment on above: Order Comment: Speci men Type: BLOOD SPECIMENOrdering Facility: [facility] Address: [address] [place] [address] Performed By: #### 5 7021-8 ####[facility] LABORATORYCLIA [id number] [place] [address] [place] Lymphocytes (Bld) [#/Vol] 1.12 10*3/uL Normal 1.00-4.00 [facility] Comment on above: Order Comment: Speci men Type: BLOOD SPECIMENOrdering Facility: [facility] Address: [address] [place] [address] Performed By: #### 5 7021-8 ####[facility] LABORATORYCLIA [id number] [address] Lymphocytes/100 WBC (Bld) 7.0 % Normal [facility] Comment on above: Order Comment: Speci men Type: BLOOD SPECIMENOrdering Facility: [facility] Address: [address] [place] [address] Performed By: #### 5 7021-8 ####[facility] LABORATORYCLIA [id number] [address] Lymphocytes/100 WBC (Bld) 0.0 % Normal [facility] Comment on above: Order Comment: Speci men Type: BLOOD SPECIMENOrdering Facility: [facility] Address: [address] [place] [address] Performed By: #### 5 7021-8 ####[facility] LABORATORYCLIA [id number] [address] LYMPHOMA CELL 0.0 % Normal [facility] Comment on above: Order Comment: Speci men Type: BLOOD SPECIMENOrdering Facility: [facility] Address: [address] [place] [address] Performed By: #### 5 7021-8 ####[facility] LABORATORYCLIA [id number] [address] MCH (RBC) [Entitic mass] 31.3 pg Normal 26.0-34.0 [facility] Comment on above: Order Comment: Speci men Type: BLOOD SPECIMENOrdering Facility: [facility] Address: [address] [place] [address] Performed By: #### 5 7021-8 ####[facility] LABORATORYCLIA [id number] [address] MCHC (RBC) [Mass/Vol] 33.6 g/dL Normal 30.5-36.0 [facility] Comment on above: Order Comment: Speci men Type: BLOOD SPECIMENOrdering Facility: [facility] Address: [address] [place] [address] Performed By: #### 5 7021-8 ####[facility] LABORATORYCLIA [id number] [address] [place] MCV (RBC) [Entitic vol] 93.1 fL Normal 80.0-100.0 [facility] Comment on above: Order Comment: Speci men Type: BLOOD SPECIMENOrdering Facility: [facility] Address: [address] [place] [address] Performed By: #### 5 7021-8 ####[facility] LABORATORYCLIA [id number] [address] MEGAKARYOCYTIC FRAGMENTS 0.0 /100 WBC Normal [facility] Comment on above: Order Comment: Speci men Type: BLOOD SPECIMENOrdering Facility: [facility] Address: [address] [place] [address] Performed By: #### 5 7021-8 ####[facility] LABORATORYCLIA [id number] [address] Metamyelocytes/100 WBC (Bld) 2.0 % Normal [facility] Comment on above: Order Comment: Speci men Type: BLOOD SPECIMENOrdering Facility: [facility] Address: [address] [place] [address] Performed By: #### 5 7021-8 ####[facility] LABORATORYCLIA [id number] [address] MYELO% 0.0 % Normal [facility] Comment on above: Order Comment: Speci men Type: BLOOD SPECIMENOrdering Facility: [facility] Address: [address] [place] [address] Performed By: #### 5 7021-8 ####[facility] LABORATORYCLIA [id number] [place] [address] [facility] [place] Neutrophils (Bld) [#/Vol] 14.19 10*3/uL High 1.45-7.50 [facility] Comment on above: Order Comment: Speci men Type: BLOOD SPECIMENOrdering Facility: [facility] Address: [address] [place] [address] Performed By: #### 5 7021-8 ####[facility] LABORATORYCLIA [id number] [address] Neutrophils/100 WBC (Bld) 89.0 % Normal [facility] Comment on above: Order Comment: Speci men Type: BLOOD SPECIMENOrdering Facility: [facility] Address: [address] [place] [address] Performed By: #### 5 7021-8 ####[facility] LABORATORYCLIA [id number] [address] Nucleated RBC/100 WBC (Bld) [Ratio] 0.0 /100 WBC Normal [facility] Comment on above: Order Comment: Speci men Type: BLOOD SPECIMENOrdering Facility: [facility] Address: [address] [place] [address] Performed By: #### 5 7021-8 ####[facility] LABORATORYCLIA [id number] [address] OTHER CELLS 0.0 % Normal [facility] Comment on above: Order Comment: Speci men Type: BLOOD SPECIMENOrdering Facility: [facility] Address: [address] [place] [address] Performed By: #### 5 7021-8 ####[facility] LABORATORYCLIA [id number] [address] PLASMA CELLS 0.0 % Normal [facility] Comment on above: Order Comment: Speci men Type: BLOOD SPECIMENOrdering Facility: [facility] Address: [address] [place] [address] Performed By: #### 5 7021-8 ####[facility] LABORATORYCLIA [id number] [address] PLATELET ESTIMATE Decreased Normal [facility] Comment on above: Order Comment: Speci men Type: BLOOD SPECIMENOrdering Facility: [facility] Address: [address] [place] [address] Performed By: #### 5 7021-8 ####[facility] LABORATORYCLIA [id number] [address] Platelet mean volume (Bld) [Entitic vol] 11.4 fL Normal 9.0-12.7 [facility] Comment on above: Order Comment: Speci men Type: BLOOD SPECIMENOrdering Facility: [facility] Address: [address] [place], [place] [address] Performed By: #### 5 7021-8 ####[facility] LABORATORYCLIA [id number] [address] Platelets (Bld) [#/Vol] 147 10*3/uL Low 150-400 [facility] Comment on above: Order Comment: Speci men Type: BLOOD SPECIMENOrdering Facility: [facility] Address: [address] [place] [address] Performed By: #### 5 7021-8 ####[facility] LABORATORYCLIA [id number] [address] PROMYL% 0.0 % Normal [facility] Comment on above: Order Comment: Speci men Type: BLOOD SPECIMENOrdering Facility: [facility] Address: [address] [place], [place] [address] Performed By: #### 5 7021-8 ####[facility] LABORATORYCLIA [id number] [address] RBC (Bld) [#/Vol] 5.92 10*6/uL Normal 4.20-6.00 [facility] Comment on above: Order Comment: Speci men Type: BLOOD SPECIMENOrdering Facility: [facility] Address: [address] [place], [place] [address] Performed By: #### 5 7021-8 ####[facility] LABORATORYCLIA [id number] [address] RED CELL MORPH Reviewed: unremarkable Normal [facility] Comment on above: Order Comment: Speci men Type: BLOOD SPECIMENOrdering Facility: [facility] Address: [address] [place], [place] [address] Performed By: #### 5 7021-8 ####[facility] LABORATORYCLIA [id number] [address] Variant lymphocytes/100 WBC (Bld) 0.0 % Normal [facility] Comment on above: Order Comment: Speci men Type: BLOOD SPECIMENOrdering Facility: [facility] Address: [address] [place] [address] Performed By: #### 5 7021-8 ####[facility] LABORATORYCLIA [id number] [address] [place] WAM - ABS BASO 0.00 k/uL Normal <0.11 [facility] Comment on above: Order Comment: Speci men Type: BLOOD SPECIMENOrdering Facility: [facility] Address: [address] [place] [address] Performed By: #### 5 7021-8 ####[facility] LABORATORYCLIA [id number] [address] WAM - ABS MONO 0.32 k/uL Normal <0.87 [facility] Comment on above: Order Comment: Speci men Type: BLOOD SPECIMENOrdering Facility: [facility] Address: [address] [place] [address] Performed By: #### 5 7021-8 ####[facility] LABORATORYCLIA [id number] [address] WAM - MONO% 2.0 % Normal [facility] Comment on above: Order Comment: Speci men Type: BLOOD SPECIMENOrdering Facility: [facility] Address: [address] [address] Performed By: #### 5 7021-8 ####[facility] LABORATORYCLIA [id number] [address] WAM ABSOLUTE NRBC <0.01 Normal <0.01 [facility] Comment on above: Order Comment: Speci men Type: BLOOD SPECIMENOrdering Facility: [facility] Address: [address] [address] Performed By: #### 5 7021-8 ####[facility] LABORATORYCLIA [id number] [address] WBC (Bld) [#/Vol] 15.94 10*3/uL High 3.70-11.00 [facility] Comment on above: Order Comment: Speci men Type: BLOOD SPECIMENOrdering Facility: [facility] Address: [address] [place] [address] Performed By: #### 5 7021-8 ####[facility]ATORYCLIA [id number] [address] WBC Left Shift Ql (Bld) Present Normal [facility] Comment on above: Order Comment: Speci men Type: BLOOD SPECIMENOrdering Facility: [facility] Address: [address] [place] [address] Performed By: #### 5 7021-8 ####[facility]ORATORYCLIA [id number] [address] CONSULTon 01-07-2022 CONSULT HNO ID: [id number] Author: Jayant Estrella MD Service: Infectious Disease Author Type: Physician Type: Consults Filed: 01/08/2022 11:07 AM Note Text: INFECTIOUS DISEASE INITIAL CONSULT SERVICE DATE: 01/07/2022 SERVICE TIME: 10:59 AM REASON FOR CONSULT: Sepsis, right leg cellulitis Subjective Patient is seen at the request of Dr Multani. My final recommendations will be communicated back to the requesting physician by way of copy of this note or shared electronic medical record. HPI: Mateus Manzano who is a 36 year old male with past medical history of T8-T12 paraparesis, neurogenic bladder, wheelchair-bound with minimal movement of the legs, chronic pain on baclofen pump along with 30 mg of morphine sulfate and Lyrica [address] [facility], presents with being unwell with fever tachycardia cough and back pain which she thought was from UTI for 2-3 days. In the the emergency department the patient was initially thinking that it was a urinary tract infection however this morning he had abrupt onset of cellulitis of the right leg. He has chronic back pain and it was exacerbated which is the reason they thought it was a UTI. He is also had cough and has an evaluation some atelectasis or early pneumonia in the right lower lobe which on examination appears to be associated with other than acute sinusitis and postnasal drip. In the emergency department he was found to be septic his lactate is normal but white count is 15.9. He is somewhat polycythemic which may be dehydration but in May he had a hemoglobin of 17.3 and today it is 18.6. On the medical floor started on ceftriaxone and vancomycin. Etiologic studies for pneumonia are sent along with blood and urine cultures. Patient will self cath himself. PAST MEDICAL HISTORY Diagnosis Date - Asthma 08/05/2021 - Clotting disorder (HCC) HUGH-1 - DVT (deep venous thrombosis) ([facility]) 2012 - ED (erectile dysfunction) - Factor 5 Leiden mutation, heterozygous ([facility]) - History of spinal cord injury 03/03/2015 - Lower urinary tract infectious disease - Methylenetetrahydrofolate reductase (MTHFR) gene mutation - MRSA (methicillin resistant Staphylococcus aureus) 10/2012 spine - Neurogenic bladder self straight catheterization - KARAN (obstructive sleep apnea) pt never got a cpap; pt unsure if he needed one - KARAN (obstructive sleep apnea) 08/05/2021 - other HUGH-1 gene - Paraplegia following spinal cord injury ([facility]) 2012 - Recurrent UTI - Sepsis ([facility]) 02/20/2021 - 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[facility]) PAST SURGICAL HISTORY Procedure Laterality Date - IMPLTJ/RPLCMT ITHCL/EDRL DRUG NFS PRGRBL PUMP 03/02/2015 SynchroMed II, 40 ml pump with catheter tip at T9 - Informed consent sigend on 03/03/15 (paper form) - IMPLTJ/RPLCMT ITHCL/EDRL DRUG NFS PRGRBL PUMP 10/13/2016 Revision of ITB catheter due to malfunction - PAST SURGICAL HISTORY OF 11/09/2012 laminectomy T-4-T-12 - PAST SURGICAL HISTORY OF 2002 ORIF with pins right hand - PAST SURGICAL HISTORY OF 2012 filter placement for DVT - PAST SURGICAL HISTORY OF percutaneous vascular procedure - PAST SURGICAL HISTORY OF neck surgery - REVISE MEDIAN N/CARPAL TUNNEL SURG Bilateral 2019 Social History Tobacco Use - Smoking status: Current Every Day Smoker Packs/day: 1.00 Years: 18.00 Pack years: 18.00 Types: Cigarettes - Smokeless tobacco: Former User Types: Chew Quit date: 01/19/2005 Vaping Use - Vaping Use: Never used Substance Use Topics - Alcohol use: Yes Comment: rarely - Drug use: No FAMILY HISTORY Problem Relation Age of Onset - Diabetes Father - other (factor v leiden) Father homozigus carries mthfr - other (factor v leiden) Mother homozigus carries pie 1 - Cancer Paternal Grandfather - Heart disease Paternal Grandfather - Cancer Paternal Grandmother leukemia - Heart Paternal Grandmother - Anesthesia Problems No Family History There is no immunization history on file for this patient. Current Facility-Administered Medications Medication Dose Route Frequency - NaCl 0.9% iv flush bag 20 mL INTRAVENOUS PRN - vancomycin dosing and monitoring per pharmacy OTHER As Directed - vancomycin 1.75 g in D5W 500 mL (VANCOCIN) 1.75 g INTRAVENOUS q 12 HR - cefTRIAXone iv piggyback 1 g in dextrose (iso-osmotic) 50 mL (ROCEPHIN) 1 g INTRAVENOUS q 24 H - pregabalin 200 mg cap(s) (LYRICA) 200 mg ORAL BID - rivaroxaban 20 mg tab(s) (XARELTO) 20 mg ORAL AT BEDTIME - docusate sodium 100 mg cap(s) (COLACE) 100 mg ORAL BID - morphine SR 15 mg tab(s) (MS CONTIN, ORAMORPH SR) 15 mg ORAL BID - baclofen 10 mg tab(s) (LIORESAL) 10 mg ORAL BID - sodium chloride 0.9 % (flush) 2-10 mL (BD POSIFLUSH) 2-10 mL INTRAVENOUS q 12 H - docusate sodium 100 mg cap(s) (COLACE) 100 mg ORAL BID PRN - bisacodyl 10 mg suppository (DULCOLAX) 10 mg RECTAL DAILY PRN - zolpidem 5 mg tab(s) (AMBIEN) 5 mg ORAL AT BEDTIME PRN (more content not included)... [facility] CONSULT PROGomary 01-07-2022 CONSULT PROG HNO ID: [id number] Author: Tana Mata Service: Pharmacy Author Type: ? Type: Consult Progress Note Filed: 01/07/2022 3:03 PM Note Text: Attestation signed by Merlene Gates RPh at 01/07/2022 3:05 PM Preceptor Addendum: This case has been reviewed and discussed with the pharmacy buyer. I agree with the assessment/plan described by the resident. Changes and additions to the details in the note are indicated by italics and . Merlene Gates RPh PHARMACY VANCOMYCIN DOSING NOTE Patient Name: Mateus Manzano Admission Date: 01/07/2022 Date of Consult: 01/07/2022 Time of Consult: 10:37 AM Indication: Urinary tract infection; Cellulitis Goal Range: 10-20 mcg/mL RECOMMENDATIONS/PLAN: Pharmacy consulted for vancomycin dosing for Mateus Manzano, a 36 year old, male who is being treated with vancomycin. 1. Patient is currently ordered Vancomycin 2 g q12h. Today is day 1 of therapy. (First Dose in ED) 2. No vancomycin level has been drawn for this dosing regimen. 3. Will adjust vancomycin to 1.75 g with a dosing interval of q12h. Based off previous admission. 4. The next vancomycin level will be ordered for 01/09 unless clinically indicated sooner. (Pharmacy will order) We will follow patient renal function, vancomycin levels and doses with you during the course of therapy. Additional recommendations will appear in follow up notes. If you have any questions, please contact pharmacy at [phone]. Age: [age] year old Allergies: ALLERGIES Allergen Reactions - Piperacillin-Tazoba* Hives Patient states he can tolerate penicillin and amoxicillin and has tolerated since the Zosyn reaction. There are no Epic administrations of penicillins. Patient states he has tolerated oral cephalosporins in the past. There are outpatient prescription records for cephalexin listed in Epic. - Zosyn [Piperacillin* Hives - Hydrocodone-Acetami* Other: See Comments headaches - Codeine Intolerance, Other: See Comments nightmares Last 3 Encounter Wt Readings: Date: Wt: 01/07/2022 129.3 kg (285 lb) 12/27/2021 127.7 kg (281 lb 9.6 oz) 11/30/2021 133.8 kg (295 lb) Last 1 Encounter Ht Readings: Date: Ht: 11/30/2021 193 cm (6' 4) CrCl: 145.6 mL/min Temp (24hrs), Av.1 ?C (100.5 ?F), Min:36.9 ?C (98.4 ?F), Max:39.2 ?C (102.5 ?F) - Current Temp: 36.9 ?C (98.4 ?F) Labs BUN (mg/dL) Date Value 01/07/2022 19 08/05/2021 8 (L) 06/07/2021 12 Creatinine (mg/dL) Date Value 01/07/2022 1.02 08/05/2021 1.01 06/07/2021 0.87 WBC (k/uL) Date Value 01/07/2022 15.94 (H) 08/05/2021 8.74 06/07/2021 7.99 Vancomycin Levels: Vancomycin, result (ug/mL) Date/Time Value 02/24/2021 0114 10.4 02/22/2021 0054 7.2 (L) Tana Mata Normal [facility] CREATININE BLDon 01-07-2022 Creatinine [Mass/Vol] 1.30 mg/dL High 0.73-1.22 [facility] Comment on above: Order Comment: Speci men Type: BLOOD SPECIMENOrdering Facility: [facility] Address: [address] [place] [address] Performed By: #### 1 9123-9, 2777-1, CRET1 ####[facility] LABORATORYCLIA [id number] [place] [address] [place] ESTIMATED GLOMERULAR FILTRATION RATE 73 mL/min/1.73m??? Normal >=60 [facility] Comment on above: Order Comment: Speci men Type: BLOOD SPECIMENOrdering Facility: [facility] Address: [address] [place] [address] Result Comment: Re mated Glomerular Filtration Rate (eGFR) is calculated using the 2020 CKD-EPI creatinine equation. This equation utilizes serum creatinine, sex, and age as parameters. The creatinine assay has traceable calibration to isotope dilution-mass spectrometry. Refer to KDIGO guidelines for clinical interpretation. In patients with unstable renal function, e.g. those with acute kidney injury, the eGFR may not accurately reflect actual GFR. Performed By: #### 1 9123-9, 2777-1, CRET1 ####[facility] LABORATORYCLIA [id number] [place] [address] [place] Comprehensive metabolic 2000 panelon 01-07-2022 Albumin [Mass/Vol] 3.4 g/dL Low 3.9-4.9 [facility] Comment on above: Order Comment: Augustina gary Type: BLOOD SPECIMENOrdering Facility: [facility] Address: [address] [place] [address] Performed By: #### 2 4323-8, 67477-9 ####[facility] LABORATORYCLIA [id number] [address] [place] ALP [Catalytic activity/Vol] 82 U/L Normal 38-113 [facility] Comment on above: Order Comment: Augustina gary Type: BLOOD SPECIMENOrdering Facility: [facility] Address: [address] [place] [address] Performed By: #### 2 4323-8, 60952-3 ####[facility] LABORATORYCLIA [id number] [address] [place] [facility] ALT [Catalytic activity/Vol] 33 U/L Normal 10-54 [facility] Comment on above: Order Comment: Augustina gary Type: BLOOD SPECIMENOrdering Facility: [facility] Address: [address] [place] [address] Performed By: #### 2 4323-8, 20893-7 ####[facility] LABORATORYCLIA [id number] [address] [place] [facility] Anion gap [Moles/Vol] 9 mmol/L Normal 9-18 [facility] Comment on above: Order Comment: Speci men Type: BLOOD SPECIMENOrdering Facility: [facility] Address: [address] [address] Performed By: #### 2 4323-8, 09349-2 ####[facility] LABORATORYCLIA [id number] [address] [place] AST [Catalytic activity/Vol] 30 U/L Normal 14-40 [facility] Comment on above: Order Comment: Speci men Type: BLOOD SPECIMENOrdering Facility: [facility] Address: [address] Performed By: #### 2 4323-8, 83998-8 ####[facility] LABORATORYCLIA [id number] [place] [address] [place] Bilirubin [Mass/Vol] 0.5 mg/dL Normal 0.2-1.3 [facility] Comment on above: Order Comment: Speci men Type: BLOOD SPECIMENOrdering Facility: [facility] Address: [address] [place] [address] Performed By: #### 2 4323-8, 70011-9 ####[facility] LABORATORYCLIA [id number] [address] [place] Calcium [Mass/Vol] 8.7 mg/dL Normal 8.5-10.2 [facility] Comment on above: Order Comment: Speci men Type: BLOOD SPECIMENOrdering Facility: [facility] Address: [address] Performed By: #### 2 4323-8, 48050-8 ####[facility] LABORATORYCLIA [id number] [place] [address] [place] Chloride [Moles/Vol] 101 mmol/L Normal 97-105 [facility] Comment on above: Order Comment: Speci men Type: BLOOD SPECIMENOrdering Facility: [facility] Address: [address] [address] Performed By: #### 2 4323-8, 73260-3 ####[facility] LABORATORYCLIA [id number] [place] [address] CO2 [Moles/Vol] 25 mmol/L Normal 22-30 [facility] Comment on above: Order Comment: Augustina cookie Type: BLOOD SPECIMENOrdering Facility: [facility] Address: [address] [place] [address] Performed By: #### 2 4323-8, 07417-1 ####[facility] LABORATORYCLIA [id number] [address] [place] Creatinine [Mass/Vol] 1.02 mg/dL Normal 0.73-1.22 [facility] Comment on above: Order Comment: Augustina men Type: BLOOD SPECIMENOrdering Facility: [facility] Address: [address] [place] [address] Performed By: #### 2 4323-8, 42205-5 ####[facility] LABORATORYCLIA [id number] [address] ESTIMATED GLOMERULAR FILTRATION RATE 97 mL/min/1.73m??? Normal >=60 [facility] Comment on above: Order Comment: Augustina men Type: BLOOD SPECIMENOrdering Facility: [facility] Address: [address] [place] [address] Result Comment: Re mated Glomerular Filtration Rate (eGFR) is calculated using the 2020 CKD-EPI creatinine equation. This equation utilizes serum creatinine, sex, and age as parameters. The creatinine assay has traceable calibration to isotope dilution-mass spectrometry. Refer to KDIGO guidelines for clinical interpretation. In patients with unstable renal function, e.g. those with acute kidney injury, the eGFR may not accurately reflect actual GFR. Performed By: #### 2 4323-8, 98909-3 ####[facility] LABORATORYCLIA [id number] [address] [place] Glucose [Mass/Vol] 113 mg/dL High 74-99 [facility] Comment on above: Order Comment: Augustina cookie Type: BLOOD SPECIMENOrdering Facility: [facility] Address: [address] [place] [address] Result Comment: The [place] Diabetes Association (ADA) provides guidance for cutoff values for fasting glucose and random glucose. The ADA defines fasting as no caloric intake for at least 8 hours. Fasting plasma glucose results between 100 to 125 mg/dL indicate increased risk for diabetes (prediabetes). Fasting plasma glucose results greater than or equal to 126 mg/dL meet the criteria for diagnosis of diabetes. In the absence of unequivocal hyperglycemia, results should be confirmed by repeat testing. In a patient with classic symptoms of hyperglycemia or hyperglycemic crisis, random plasma glucose results greater than or equal to 200 mg/dL meet the criteria for diagnosis of diabetes. Reference: Standards of Medical Care in Diabetes 2016, [place] [employer] Association. Diabetes Care. 2016.39(Suppl 1). Performed By: #### 2 4323-8, 54929-2 ####[facility] LABORATORYCLIA [id number] [place] [address] [place] Potassium [Moles/Vol] 4.1 mmol/L Normal 3.7-5.1 [facility] Comment on above: Order Comment: Augustina gary Type: BLOOD SPECIMENOrdering Facility: [facility] Address: [address] [place] [address] Performed By: #### 2 4323-8, 52115-1 ####[facility] LABORATORYCLIA [id number] [place] [address] [place] Protein [Mass/Vol] 6.9 g/dL Normal 6.3-8.0 [facility] Comment on above: Order Comment: Augustina agry Type: BLOOD SPECIMENOrdering Facility: [facility] Address: [address] [place] [address] Performed By: #### 2 4323-8, 97559-9 ####[facility] LABORATORYCLIA [id number] [place] [address] [place] Sodium [Moles/Vol] 135 mmol/L Low 136-144 [facility] Comment on above: Order Comment: Augustina gary Type: BLOOD SPECIMENOrdering Facility: [facility] Address: [address] [place] [address] Performed By: #### 2 4323-8, 62819-7 ####[facility] LABORATORYCLIA [id number] [place] [address] [place] Urea nitrogen [Mass/Vol] 19 mg/dL Normal 9-24 [facility] Comment on above: Order Comment: Speci men Type: BLOOD SPECIMENOrdering Facility: [facility] Address: [address] [id number] Performed By: #### 2 4323-8, 40019-4 ####[facility] LABORATORYCLIA [id number] [place] [address] [facility] ED NOTEon 01-07-2022 ED NOTE HNO ID: [id number] Author: Bridger Us RN Service: ? Author Type: Registered Nurse Type: ED Notes Filed: 01/07/2022 7:22 AM Note Text: Assumed care. Pt found in semi-flaherty's position, alert and oriented x 3, abc's intact. Dr. Turcios at bedside for eval. Pt resting comfortably, respirations easy and unlabored, NO s/s of distress at this time. Orders received. [facility] ED NOTE HNO ID: [id number] Author: Saba Main RN Service: ? Author Type: Registered Nurse Type: ED Notes Filed: 01/07/2022 7:05 AM Note Text: Report given to PATRICIA Chris. Patient resting in bed, with family at bedside. [facility] ED NOTE HNO ID: [id number] Author: Saba Main RN Service: ? Author Type: Registered Nurse Type: ED Notes Filed: 01/07/2022 7:06 AM Note Text: Patient arrived via private car with complaints of right leg swelling and reddness. Patient feels like he has a UTI. Patient is a paraplegic. [facility] ED PROV NOTEon 01-07-2022 ED PROV NOTE HNO ID: [id number] Author: Wilder Turcios MD Service: ? Author Type: Physician Type: ED Provider Notes Filed: 01/07/2022 8:42 AM Note Text: ED Provider Note Patient Name: Mateus Manzano : 1985 SERVICE DATE: 01/07/22 History Patient presents with: Fever UTI Edema: right leg Patient presenting for evaluation secondary to concern for UTI and infection. Patient has an underlying history of paraplegia. Patient states that over the course of the last 2 to 3 days he has been dealing with lower back pain. Patient states that he developed fevers at home. He denies nausea vomiting shortness of breath or production of sputum, does state that he has a mild cough. Patient states also within the last 24 hours he developed significant redness of his right lower extremity. He was also concerned about the possibility of cellulitis. Denies any injuries to the leg currently. No exacerbating relieving factors are noted. Review of systems otherwise negative. PAST MEDICAL HISTORY Diagnosis Date - Asthma 08/05/2021 - Clotting disorder (HCC) HUGH-1 - DVT (deep venous thrombosis) ([facility]) 2012 - ED (erectile dysfunction) - Factor 5 Leiden mutation, heterozygous ([facility]) - History of spinal cord injury 03/03/2015 - Lower urinary tract infectious disease - Methylenetetrahydrofolate reductase (MTHFR) gene mutation - MRSA (methicillin resistant Staphylococcus aureus) 10/2012 spine - Neurogenic bladder self straight catheterization - KARAN (obstructive sleep apnea) pt never got a cpap; pt unsure if he needed one - KARAN (obstructive sleep apnea) 08/05/2021 - other HUGH-1 gene - Paraplegia following spinal cord injury ([facility]) 2012 - Recurrent UTI - Sepsis ([facility]) 02/20/2021 - 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[facility]) PAST SURGICAL HISTORY Procedure Laterality Date - IMPLTJ/RPLCMT ITHCL/EDRL DRUG NFS PRGRBL PUMP 03/02/2015 SynchroMed II, 40 ml pump with catheter tip at T9 - Informed consent sigend on 03/03/15 (paper form) - IMPLTJ/RPLCMT ITHCL/EDRL DRUG NFS PRGRBL PUMP 10/13/2016 Revision of ITB catheter due to malfunction - PAST SURGICAL HISTORY OF 11/09/2012 laminectomy T-4-T-12 - PAST SURGICAL HISTORY OF 2002 ORIF with pins right hand - PAST SURGICAL HISTORY OF 2012 filter placement for DVT - PAST SURGICAL HISTORY OF percutaneous vascular procedure - PAST SURGICAL HISTORY OF neck surgery - REVISE MEDIAN N/CARPAL TUNNEL SURG Bilateral 2020 FAMILY HISTORY Problem Relation Age of Onset - Diabetes Father - other (factor v leiden) Father homozigus carries mthfr - other (factor v leiden) Mother homozigus carries pie 1 - Cancer Paternal Grandfather - Heart disease Paternal Grandfather - Cancer Paternal Grandmother leukemia - Heart Paternal Grandmother - Anesthesia Problems No Family History Social History Tobacco Use - Smoking status: Current Every Day Smoker Packs/day: 1.00 Years: 18.00 Pack years: 18.00 Types: Cigarettes - Smokeless tobacco: Former User Types: Chew Quit date: 01/19/2005 Vaping Use - Vaping Use: Never used Substance and Sexual Activity - Alcohol use: Yes Comment: rarely - Drug use: No - Sexual activity: Not on file ALLERGIES Allergen Reactions - Piperacillin-Tazoba* Hives Patient states he can tolerate penicillin and amoxicillin and has tolerated since the Zosyn reaction. There are no Epic administrations of penicillins. Patient states he has tolerated oral cephalosporins in the past. There are outpatient prescription records for cephalexin listed in [facility]. - Zosyn [Piperacillin* Hives - Hydrocodone-Acetami* Other: See Comments headaches - Codeine Intolerance, Other: See Comments nightmares Review of Systems Constitutional: Positive for chills, fatigue and fever. Negative for activity change. HENT: Negative for rhinorrhea and sore throat. Respiratory: Negative for cough and shortness of breath. Cardiovascular: Negative for chest pain. Gastrointestinal: Negative for abdominal pain, diarrhea, nausea and vomiting. Genitourinary: Negative for dysuria. Foul-smelling urine Musculoskeletal: Positive for back pain. Negative for myalgias. Skin: Positive for rash. Neurological: Negative for weakness and numbness. Psychiatric/Behavioral: Negative for self-injury. Physical Exam Vitals [01/07/22 0519] BP Pulse Temp Temp src Resp SpO2 Weight Height 148/75 (!) 126 (S) (!) 39.2 ?C (102.5 ?F) Oral 22 (!) 94 % 129.3 kg (285 lb) -- Physical Exam Vitals and nursing note reviewed. Constitutional: General: He is not in acute distress. Appearance: He is well-developed. HENT: Head: Normocephalic and atraumatic. Eyes: Conjunctiva/sclera: Conjunctivae normal. Pupils: Pupils are equal, round, and reactive to light. Cardiovascular: Rate and Rhythm: Regular rhythm. Tachycardia present. Heart sounds: Normal heart sounds. Comments: Radial pulses 2+ bilaterally Pulmonary: Effort: Pulmonary e (more content not included)... Normal [facility] Gas and Carbon monoxide pane l (BldV)on 01-07-2022 Base excess Calc (BldV) [Moles/Vol] 2 mmol/L Normal 0-2 [facility] Comment on above: Order Comment: Speci men Type: VENOUS BLOOD SPECIMENOrdering Facility: [facility] Address: [address] [place] [address] Performed By: #### 2 4344-4 ####[facility] [id number] [facility] [id number] [address] [address] Carboxyhemoglobin (BldV) [Mass fraction] 6.3 % High 0.0-2.0 [facility] Comment on above: Order Comment: Speci men Type: VENOUS BLOOD SPECIMENOrdering Facility: [facility] Address: [address] [place] [address] Result Comment: Carb oxyhemoglobin Reference Range for Smokers: 2.0-8.0% Performed By: #### 2 4344-4 ####[facility] [id number] [facility]OSP[facility] RESPIRATORY [id number] [address] [address] CO2 (BldV) [Partial pressure] 58 mm[Hg] High 42-55 [facility] Comment on above: Order Comment: Speci men Type: VENOUS BLOOD SPECIMENOrdering Facility: [facility] Address: [address] [place] [address] Performed By: #### 2 4344-4 ####[facility] [id number] [facility]OS[facility] RESPIRATORY [id number] [address] [address] CO2 adjusted to patient's actual temperature (BldV) [Partial pressure] Normal [facility] Comment on above: Order Comment: Speci men Type: VENOUS BLOOD SPECIMENOrdering Facility: [facility] Address: [address] [place] [address] Performed By: #### 2 4344-4 ####[facility] [id number] [facility] RESPIRAT[facility] [id number] [address] [address] HCO3 (Bld) [Moles/Vol] 29 mmol/L High 24-28 [facility] Comment on above: Order Comment: Speci men Type: VENOUS BLOOD SPECIMENOrdering Facility: [facility] Address: [address] [address] Performed By: #### 2 4344-4 ####[facility] RESPIRATORYCLIA [id number] [facility] [id number] [address] [address] Hemoglobin (Bld) [Mass/Vol] 19.0 g/dL High 13.0-17.0 [facility] Comment on above: Order Comment: Speci men Type: VENOUS BLOOD SPECIMENOrdering Facility: [facility] Address: [address] [address] Performed By: #### 2 4344-4 ####[facility] RESPIRATORYCLIA [id number] [facility]OSP[facility] RESPIRAT[facility] [id number] [place] [address] Lactate [Moles/Vol] 1.7 mmol/L Normal 0.5-2.2 [facility] Comment on above: Order Comment: Speci men Type: VENOUS BLOOD SPECIMENOrdering Facility: [facility] Address: [address] [address] Performed By: #### 2 4344-4 ####[facility] RESPIRATORYCLIA [id number] [facility] [id number] [address] Methemoglobin (Bld) [Mass fraction] 1.0 % Normal 0.0-1.5 [facility] Comment on above: Order Comment: Speci men Type: VENOUS BLOOD SPECIMENOrdering Facility: [facility] Address: [address] Performed By: #### 2 4344-4 ####[facility] RESPIRATORYCLIA [id number] [facility] [id number] [place] [address] O2 THERAPY RA=Room Air Normal [facility] Comment on above: Order Comment: Speci men Type: VENOUS BLOOD SPECIMENOrdering Facility: [facility] Address: [address] [address] Performed By: #### 2 4344-4 ####[facility] RESPIRATORYCLIA [id number] [facility] [id number] [address] Oxygen (BldV) [Partial pressure] mm[Hg] Low 35-45 [facility] Comment on above: Order Comment: Speci men Type: VENOUS BLOOD SPECIMENOrdering Facility: [facility] Address: [address] [address] Performed By: #### 2 4344-4 ####[facility] [place] RESPIRATORYIA [id number] [facility]OSP[facility] RES[facility]IRAT[facility] [id number] [address] [address] Oxygen adjusted to patient's actual temperature (BldV) [Partial pressure] Normal [facility] Comment on above: Order Comment: Speci men Type: VENOUS BLOOD SPECIMENOrdering Facility: [facility] Address: [address] [place] [address] Performed By: #### 2 4344-4 ####[place] RESPIRATORYSOUTHWEST[facility] [id number] [facility]OS[facility] RESPIRATORY [id number] [address] [address] Oxyhemoglobin (BldV) [Mass fraction] 47 % Low 60-85 [facility] Comment on above: Order Comment: Speci men Type: VENOUS BLOOD SPECIMENOrdering Facility: [facility] Address: [address] [place] [address] Performed By: #### 2 4344-4 ####[facility] [place]PIRATORYSOUTHWEST[facility] [id number] [facility]OS[facility] RESPIRATORY [id number] [address] pH (BldV) 7.32 [pH] Normal 7.32-7.42 [facility] Comment on above: Order Comment: Speci men Type: VENOUS BLOOD SPECIMENOrdering Facility: [facility] Address: [address] [address] Performed By: #### 2 4344-4 ####[facility] [place]ATORYSOU[facility]WE[facility] [id number] [facility]OS[facility] RESPIRAT[facility] [id number] [address] pH adjusted to patient's actual temperature (BldV) Normal [facility] Comment on above: Order Comment: Speci men Type: VENOUS BLOOD SPECIMENOrdering Facility: [facility] Address: [address] [place] [address] Performed By: #### 2 4344-4 ####[facility] RESPIRATORYCLIA [id number] [facility] RESPIRATORY [id number] [place] [address] Potassium [Moles/Vol] 3.7 mmol/L Normal 3.5-5.0 [facility] Comment on above: Order Comment: Speci men Type: VENOUS BLOOD SPECIMENOrdering Facility: [facility] Address: [address] [facility] [address] Performed By: #### 2 4344-4 ####[facility] RESPIRATORYCLIA [id number] [facility] [id number] [place] [address] HISTORY PHYSICALon HISTORY PHYSICAL HNO ID: [id number] Author: Brian Multani MD Service: Hospital Medicine Author Type: Physician Type: HANDP Filed: 01/08/2022 2:32 PM Note Text: Dr. Hernandez will see patient. Now high fever and shoulder pain. CT of the shoulder has been ordered and physician aware that we will need Ortho consult if there is an effusion. Brian Multani MD January 07, 2022 5:13 PM DEPARTMENT OF HOSPITAL MEDICINE HISTORY AND PHYSICAL EXAM SERVICE DATE: 01/07/2022 SERVICE TIME: 11:46 AM Hospital Medicine/Primary Attending: Brian Multani MD NIGHT AND WEEKEND COVERAGE: [facility] [place] COVERAGE: Nights: [phone], please page [place] [facility] Night coverage pager [phone]. Admission date: 01/07/2022 ASSESSMENT No chest pain or shortness of breath - Patient primarily has sepsis from skin infection he is tinea pedis with a cellulitis going up to the proximal tibia anteriorly and some faint lymphangitis on the medial portion of the right thigh but no inguinal adenopathy - He does have postnasal drip with some cough atelectasis most likely in the right base with some focal wheezing - He self caths every 4 hours or a few white cells he is covered with ceftriaxone pending culture but this does not sound to be from his urine it seems to be cellulitis causing the sepsis symptoms - Conferred with Dr. Estrella who agrees with ceftriaxone and vancomycin and he will see the patient today - Lotrimin for tinea pedis which is probably the nidus for the cellulitis - Acidosis on venous blood gas most likely from prolonged application of tourniquet PLAN - Afrin and saline spray for 3 days of Afrin and 2 days of saline - Proventil aerosol - Incentive spirometer - Vancomycin/ceftriaxone - Cultures pending - Mycoplasma Legionella pneumococcal orders sent - Staph nasal culture Reason for Admission: Sepsis due to skin infection with borderline hypotension but lactate 1.7 Consultants: Dr. Estrella for infectious disease PROCEDURES: NONE Disposition: To be determined EK08/05/2021 sinus rhythm normal EKG ? Echocardiogram-none Recent Labs 01/07/22 0545 WBC 15.94* RBC 5.92 HB 18.5* HCT 55.1* PLT 147* MCV 93.1 MCH 31.3 MPV 11.4 ABSNEUT 14.19* NEUTP 89.0 BANDS 0.0 LYMPHP 7.0 MONOP 2.0 Recent Labs 01/07/22 0730 GLUC 113* NA 135* K 4.1 CHLOR 101 CO2 25 CREAT 1.02 BUN 19 ANION 9 CA 8.7 TPROT 6.9 ALB 3.4* TBILI 0.5 ALKPHOS 82 AST 30 ALT 33 Recent Labs 01/07/22 0545 LACT 1.7 Recent Labs 01/07/22 0730 BUN 19 CREAT 1.02 CA 8.7 Most recent labs HOSPITAL COURSE: Mateus Manzano is a 36 year old male presented with past medical history of T8-T12 paraparesis, neurogenic bladder, wheelchair-bound with minimal movement of the legs, chronic pain on baclofen pump along with 30 mg of morphine sulfate and Lyrica [address] [facility], presents with being unwell with fever tachycardia cough and back pain which she thought was from UTI for 2-3 days. In the the emergency department the patient was initially thinking that it was a urinary tract infection however this morning he had abrupt onset of cellulitis of the right leg. He has chronic back pain and it was exacerbated which is the reason they thought it was a UTI. He is also had cough and has an evaluation some atelectasis or early pneumonia in the right lower lobe which on examination appears to be associated with other than acute sinusitis and postnasal drip. In the emergency department he was found to be septic his lactate is normal but white count is 15.9. He is somewhat polycythemic which may be dehydration but in May he had a hemoglobin of 17.3 and today it is 18.6. On the medical floor started on ceftriaxone and vancomycin. Etiologic studies for pneumonia are sent along with blood and urine cultures. Patient will self cath himself. His pain management doctor notified as he has an appointment for his medications in 2 days and will probably be in the hospital. Primary problem - Onset -3 days progressive myalgias and feeling unwell with temperature 102.5 - Timing -progressive - Aggravating -irruption of cellulitis on right leg - Alleviating -nothing - Severity -borderline hypotension but lactate okay he is moderately severe at this point in view of his paraparesis with T8/T12 paresis leaving him with neurogenic bladder and markedly decreased movement in his legs - Associated symptoms -fever, tachycardia, cough with postnasal drip, tinea pedis and cellulitis with lymphangitis of the right leg - - ROS: All systems reviewed and negative except as above. Sepsis (HCC) POA: Yes Class 1 obesity due to excess calories with serious comorbidity and body mass index (BMI) of 34.0 to 34.9 in adult POA: Yes Urinary tract infection associated with indwelling urethral catheter (HCC) POA: Yes Cellulitis of right leg POA: (more content not included)... Normal [facility] Legionella Ag Ur Qlon 2021 Legionella sp Ag Ql (U) Negative Normal Negative [facility] Comment on above: Order Comment: Speci men Type: URINE SPECIMENOrdering Facility: [facility] Address: [address] [place] [address] Result Comment: Legi onella urinary antigen test is used as an aid in diagnosis of infection with Legionella pneumophila serogroup 1. It may be detected from a few days to several months after onset of signs and symptoms despite antibiotic therapy or disease resolution. A negative result cannot exclude Legionellosis. Clinical correlation is required. Performed By: #### 3 2781-7 ####[facility] LABCLIA [id number] [facility] [id number] [address] [place] MYCOPLASMA PNEUM IGMon 01-07 M. PNEUMO IGM, QUAL Negative Normal Negative [facility] Comment on above: Order Comment: Augustina gary Type: BLOOD SPECIMENOrdering Facility: [facility] Address: [address] [place] [address] Result Comment: Myco plasma pneumoniae IgM antibody test is used as an aid in diagnosis of recent infection with M. pneumoniae. It may occasionally remain elevated for extended periods after an acute infection. Cannot exclude recent infection if the specimen collected 7-10 days after onset of signs and symptoms. Clinical correlation is required. Performed By: #### M YCOPM ####[facility] LABCLIA [id number] [facility] [id number] [place] [address] [place] Magnesium SerPl-mCncon 01-07 Magnesium [Mass/Vol] 1.9 mg/dL Normal 1.7-2.3 [facility] Comment on above: Order Comment: Augustina gary Type: BLOOD SPECIMENOrdering Facility: [facility] Address: [address] [place] [address] Performed By: #### 1 9123-9, 2777-1, CRET1 ####[facility]ORYCLIA [id number] [place] [address] [place] NURSING PROGon 01-07-2022 NURSING PROG HNO ID: [id number] Author: Elicia Remy RN Service: Nursing Author Type: Registered Nurse Type: Nursing Progress Note Filed: 01/07/2022 5:15 PM Note Text: Nursing Progress Note Patient Name: Mateus Manzano [place] [facility] [id number] Daily Note: Patient c/o right shoulder pain and generalized aching. Temp 102.8 pulse 114 bp 97/53. Dr. Multani notified orders received. This note was completed by: Elicia Remy [facility] PT panel Coag (PPP)on 2021 INR Coag (PPP) [Relative time] 1.7 {INR} High 0.9-1.3 [facility] Comment on above: Order Comment: Augustina gary Type: BLOOD SPECIMENOrdering Facility: [facility] Address: [address] [place] [address] Result Comment: Alesha min K Antagonist (VKA) Therapeutic Range: INR 2 to 3 (Target INR of 2.5) Note: For patients treated with VKA drugs, such as warfarin, the [employer] 2012 Guideline recommends a therapeutic INR range of 2 to 3 (target INR of 2.5). This recommendation includes high-risk patients with antiphospholipid syndrome with previous arterial or venous thromboembolism, current-generation mechanical or bioprosthetic aortic heart valve replacement. Note: Patients with mechanical aortic valve replacement and additional risk factors for thromboembolic events (atrial fibrillation, previous thromboembolism, LV dysfunction, hypercoagulable conditions) or an older generation mechanical AVR (i.e., ball in-Cage) or any mechanical MVR should have a INR therapeutic range of 2.5 to 3.5 (target INR of 3). Jacobo GH, et al. Chest 2012, 141:7S-47S Yusra RA, et al. JAC 2017, 70: 252-289 Performed By: #### 1 4979-9, 97288-3 ####[facility]ATORYCLIA [id number] [place] [address] [place] PT Coag (PPP) [Time] 17.4 s High 9.7-13.0 [facility] Comment on above: Order Comment: Augustina gary Type: BLOOD SPECIMENOrdering Facility: [facility] Address: [address] [place] [address] Performed By: #### 1 4979-9, 95339-7 ####[facility]ORYCLIA [id number] [place] [address] [place] Phosphate SerPl-mCncon 01-07 Phosphate [Mass/Vol] 2.7 mg/dL Normal 2.7-4.8 [facility] Comment on above: Order Comment: Augustina gary Type: BLOOD SPECIMENOrdering Facility: [facility] Address: [address] [place] [address] Performed By: #### 1 9123-9, 2777-1, CRET1 ####[facility]ORATORYCLIA [id number] [address] Procalcitonin SerPl-mCncon 0 01-07-2022 Procalcitonin [Mass/Vol] 2.27 ng/mL High <0.09 [facility] Comment on above: Order Comment: Speci men Type: BLOOD SPECIMENOrdering Facility: [facility] Address: [address] [place] [address] Result Comment: For a guided interpretation of test results, please visit the Change in Procalcitonin Calculator, [email or web address]. Performed By: #### 2 4323-8, 93131-4 ####[facility]ORYCLIA [id number] [address] STAPH AUREUS PCRon 2 S. aureus and MRSA panel PAUL+probe (Nose) Normal Negative [facility] Comment on above: Order Comment: Speci men Type: SWAB OF INTERNAL NOSEOrdering Facility: [facility] Address: [address] [place] [address] Result Comment: Nega tive for Staphylococcus aureus by PCR. Negative for MRSA by PCR Performed By: #### S APCR ####[facility] LABCLIA [id number] [place] [address] [place] STREPTOCOCCUS PNEUMONIAE AGo n 01-07-2022 STREPTOCOCCUS PNEUMONIAE AG STREP PNEUMO AG RESULT: Negative for Streptococcus pneumoniae antigen. Presumptive negative for pneumococcal pneumonia, suggesting no current or recent pneumococcal infection. Infection due to S.pneumoniae cannot be ruled out since the antigen present in the sample may be below the detection limit of the test. Normal [facility] Comment on above: Performed By: #### S PNAG ####[facility] LABCLIA [id number] [place] [address] [place] URINALYSIS, REFLEX MICROSCOP ICon 01-07-2022 Bacteria LM.HPF (Urine sed) [#/Area] Many Abnormal None Seen [facility] Comment on above: Order Comment: Speci men Type: URINE SPECIMENOrdering Facility: [facility] Address: [address] [place] [address] Performed By: #### L [id number] ####[facility]ATORYCLIA [id number] [address] OF [place] Bilirubin Ql (U) Negative Normal Negative [facility] Comment on above: Order Comment: Speci men Type: URINE SPECIMENOrdering Facility: [facility] Address: [address] [place] [address] Performed By: #### L [id number] ####[facility]ORATORYCLIA [id number] [address] Clarity (Unsp spec) Clear Normal Clear [facility] Comment on above: Order Comment: Speci men Type: URINE SPECIMENOrdering Facility: [facility] Address: [address] [place] [address] Performed By: #### L [id number] ####[facility]ORATORYCLIA [id number] [address] Color (U) Yellow Normal Yellow [facility] Comment on above: Order Comment: Speci men Type: URINE SPECIMENOrdering Facility: [facility] Address: [address] [place] [address] Performed By: #### L [id number] ####[facility]ORATORYCLIA [id number] [address] [place] Glucose Test strip (U) [Mass/Vol] Negative Normal Negative [facility] Comment on above: Order Comment: Speci men Type: URINE SPECIMENOrdering Facility: [facility] Address: [address] [place] [address] Performed By: #### L [id number] ####[facility]ORATORYCLIA [id number] [address] OF [place] Hemoglobin Ql (U) 3+ Abnormal Negative [facility] Comment on above: Order Comment: Speci men Type: URINE SPECIMENOrdering Facility: [facility] Address: [address] [place] [address] Performed By: #### L [id number] ####[facility]ORATORYCLIA [id number] [place] [address] [facility] [place] Ketones Ql (U) Negative Normal Negative [facility] Comment on above: Order Comment: Speci men Type: URINE SPECIMENOrdering Facility: [facility] Address: [address] [place] [address] Performed By: #### L [id number] ####[facility]ORATORYCLIA [id number] [place] [address] [place] Leukocyte esterase Test strip Ql (U) Negative Normal Negative [facility] Comment on above: Order Comment: Speci men Type: URINE SPECIMENOrdering Facility: [facility] Address: [address] [place] [address] Performed By: #### L [id number] ####[facility]ORATORYCLIA [id number] [place] [address] [place] Nitrite Ql (U) Positive Abnormal Negative [facility] Comment on above: Order Comment: Speci men Type: URINE SPECIMENOrdering Facility: [facility] Address: [address] [place] [address] Performed By: #### L [id number] ####[facility]ORATORYCLIA [id number] [place] [address] [place] pH (U) 6.0 [pH] Normal 5.0-8.0 [facility] Comment on above: Order Comment: Speci men Type: URINE SPECIMENOrdering Facility: [facility] Address: [address] [place] [address] Performed By: #### L [id number] ####[facility]ORATORYCLIA [id number] [place] [address] [place] Protein (U) [Mass/Vol] Normal [facility] Comment on above: Order Comment: Speci men Type: URINE SPECIMENOrdering Facility: [facility] Address: [address] [place] [address] Result Comment: Visi ble blood causes falsely elevated results for analyte Protein. Due to this limitation, Protein will not be reported for patients whose urine contains visible blood. Performed By: #### L [id number] ####[facility]ORATORYCLIA [id number] [address] RBC LM.HPF (Urine sed) [#/Area] 11-25 /HPF Abnormal 0-3 /HPF [facility] Comment on above: Order Comment: Speci men Type: URINE SPECIMENOrdering Facility: [facility] Address: [address] [place] [address] Performed By: #### L [id number] ####[facility]ORATORYCLIA [id number] [address] Specific gravity (U) [Rel density] 1.025 Normal 1.005-1.03 0 [facility] Comment on above: Order Comment: Speci men Type: URINE SPECIMENOrdering Facility: [facility] Address: [address] [place] [address] Performed By: #### L [id number] ####[facility]ATORYCLIA [id number] [address] Urobilinogen Ql (U) 1.0 EU/dL Normal 0.2-1.0 EU/dL [facility] Comment on above: Order Comment: Speci men Type: URINE SPECIMENOrdering Facility: [facility] Address: [address] [place] [address] Performed By: #### L [id number] ####[facility]ATORYCLIA [id number] [address] WBC LM.HPF (Urine sed) [#/Area] 6-10 /HPF Abnormal 0-5 /HPF [facility] Comment on above: Order Comment: Speci men Type: URINE SPECIMENOrdering Facility: [facility] Address: [address] [place] [address] Performed By: #### L [id number] ####[facility]ORATORYCLIA [id number] [address] XR CHEST 1V FRONTAL PORTon 0 01-07-2022 XR CHEST 1V FRONTAL PORT * * *Final Report* * * DATE OF EXAM: Jan 07 2022 6:04AM MDX 5376 - XR CHEST 1V FRONTAL PORT / PROCEDURE REASON: Fatigue and malaise * * * * Physician Interpretation * * * * EXAMINATION: CHEST RADIOGRAPH (PORTABLE SINGLE VIEW AP) Exam Date/Time: 01/07/2022 6:04 AM CLINICAL HISTORY: Fatigue and malaise MQ: XCPR_5 Comparison: 09/05/2021 RESULT: Lines, tubes, and devices: None. Lungs and pleura: Perihilar reticular lung densities. Suggestion of perihilar bronchial thickening. No pneumothorax or pleural effusion. Cardiomediastinal silhouette: Stable cardiomediastinal silhouette. Other: No bony abnormalities. IMPRESSION: Atypical pneumonia or asthma, bronchitis. [employer]: [employer] Transcribe Date/Time: Jan 07 2022 6:08A Dictated by : POP ROGER MD This examination was interpreted and the report reviewed and electronically signed by: POP ROGER MD on Jan 07 2022 6:10AM EST [id number] Normal [facility] aPTT PPPon 01-07-2022 aPTT Coag (PPP) [Time] 49.0 s High 23.0-32.4 [facility] Comment on above: Order Comment: Speci men Type: BLOOD SPECIMENOrdering Facility: [facility] Address: [address] [place], [place] [address] Performed By: #### 1 4979-9, 13451-3 ####[facility]ORYCLIA [id number] [place] [address] [place] US ELBOW LEFTon 12-16-2021 [facility] US SHOULDER LTon 12-16-2021 [facility] US SHOULDER RTon 12-16-2021 [facility] Initial Visit (Pain Medicine )on 11-24-2021 Initial Visit (Pain Medicine) Diagnoses/Problems Injury of thoracic spinal cord, 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 Manzano is a 36-year-old gentleman who was referred to us by Dr. Marquez from [facility]. 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 The nerve damage limits his mobility as he is only able to ambulate about 100 steps with the assistance of a walker and is mostly wheelchair-bound for any long distance. He currently has a baclofen intrathecal pump that provides about 700 mcg of baclofen daily to treat his spasticity in his lower extremities. He is also on MS Contin 15 mg twice daily, Lyrica 150 mg twice daily, baclofen 10 mg twice daily orally, tizanidine 4 mg twice daily, Xarelto, and other medications. These medications are all managed by his pain management physician, Dr. Marquez. Patient states he was referred to us in order to discuss alternative therapies such as ketamine therapy. Patient states he experiences the majority of his pain in his low back area but also experiences a lot of muscle spasms which are mostly kept at bay now with his baclofen doses. He states he experiences pain symptoms daily and it takes a significant toll on his life. He is present today with his who helps provide some of the history. Plan: -We will add the patient to the ketamine wait list unfortunately as it would likely be 6 to 9 months with our current staffing issues in the [facility]. We did inform the patient that there are frequent cancellations and he may very likely an appointment prior to that. He is interested in this modality and would like to proceed. Risks, benefits, and alternatives were discussed with the patient and they wish to proceed. -We also discussed potential spinal cord stimulation with the patient. This would involve a cervically placed lead which would potentially still provide the patient significant lower extremity symptom relief. Patient follows with Dr. Salinas and Dr. Napier at the [facility] and Dr. Guevara will communicate his recommendations with him. Intrathecal ziconotide addition is another possibility. The patient was invited to contact us back anytime with any questions or concerns and follow-up with us in the office as needed. Chief Complaint c/o 4/10 generalized pain, mostly back pain History of Present Dyyboys33 year old male c/o 4/10 generalized pain, mostly back pain Mr. Flood is a 36-year-old gentleman who was referred to us by Dr. Marquez [facility]. 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 The nerve damage limits his mobility as he is only able to ambulate about 100 steps with the assistance of a walker and is mostly wheelchair-bound for any long distance. He currently has a baclofen intrathecal pump that provides about 700 mcg of baclofen daily to treat his spasticity in his lower extremities. He is also on MS Contin 15 mg twice daily, Lyrica 150 mg twice daily, baclofen 10 mg twice daily orally, tizanidine 4 mg twice daily, Xarelto, and other medications. These medications are all managed by his pain management physician, Dr. Marquez. Patient states he was referred to us in order to discuss alternative therapies such as ketamine therapy. Patient states he experiences the majority of his pain in his low back area but also experiences a lot of muscle spasms which are mostly kept at bay now with his baclofen doses. He states he experiences pain symptoms daily and it takes a significant toll on his life. He is present today with his who helps provide some of the history. He denies any recent changes of his symptoms. He states his symptoms are decently well controlled at its current level. Review of Systems All 13 systems were reviewed and are within normal levels except as noted below or per HPI. Positive and pertinent negative responses are noted below or in the HPI. Musculoskeletal: back pain and limb pain. Vitals Vital Signs Recorded: 24Nov2021 08:29AM Heart Rate76 Mvoggejsxpp49 Oxbatfem741 Uppswsguu10 Tobacco Usea) Yes Patient encouraged to stop using tobacco productsYes Fall Screeninga) No falls within the last year Pain Scale4 Physical Exam Physical Exam Vitals signs reviewed. Constitutional: General: Not in acute distress. Appearance: Normal appearance. Not ill-appearing. HENT: Head: Normocephalic and atraumatic. Eyes: Extraocular Movements: Extraocular movements intact. Conjunctiva/sclera: Conjunctivae normal Neck: Musculoskeletal: Normal range of motion and neck supple. Cardiovascular: Rate and Rhythm: Normal rate and regular rhythm. Pulses: Normal pulses. Pulmonary: Effort: Pulmonary effort is normal. No respiratory (more content not included)... Normal [employer] Tobacco Screening.on 022 Fall risk assessment a) No falls within the last year [facility]: Tobacco use status CPHS a) Yes [facility]- Leonid B270 Work Phone: Tobacco Screening. Yes [facility]- Neola [address]270 Work Phone: UA DIP, URINE (POC)on 2021 BILIRUBIN UA (POCT) Negative Negative [facility] CLARITY UA (POCT) Cloudy [facility] COLOR UA (POCT) Other [facility] GLUCOSE UA (POCT) Negative Negative mg/dL [facility] HEMOGLOBIN/BLOOD UA (POCT) Trace-intact Abnormal Negative [facility] KETONE UA (POCT) Negative Negative mg/dL [facility] LEUKOCYTES UA (POCT) Negative Negative [facility] NITRITE UA (POCT) Positive Abnormal Negative [facility] PH UA (POCT) 7.0 4.5 - 8.0 [facility] Protein Ql (U) Negative Negative mg/dL [facility] SPECIFIC GRAVITY UA (POCT) 1.020 1.005 - 1.030 [facility] UROBILINOGEN UA (POCT) 0.2 E.U./dL Lisa l E.U./dL [facility] XR Chest PA and Lateralon IMPRESSION: No acute radiographic abnormality. [employer] D[employer]: PSCB Transcribe Date/Time: Sep 05 2021 10:56A Dictated by : SYDNI BOURGEOIS MD This examination was interpreted and the report reviewed and electronically signed by: SYDNI BOURGEOIS MD on Sep 05 2021 10:57AM [facility] DIVISION OF RADIOLOGY * * *Final Report* * * DATE OF EXAM: Sep 05 2021 10:50AM WOX 5291 - XR CHEST 2V FRONTAL/LAT / PROCEDURE REASON: Cough * * * * Physician Interpretation * * * * EXAMINATION: CHEST RADIOGRAPH (2 VIEW FRONTAL & LATERAL) CLINICAL HISTORY: Cough MQ: XC2_6 EXAM DATE/TIME: 09/05/2021 10:50 AM COMPARISON: Chest x-ray dated February 20, 2021 RESULT: Lines, tubes, and devices: None. Lungs and pleura: No consolidation. No lung mass. No pleural effusion. No pneumothorax. Cardiomediastinal silhouette: Normal cardiomediastinal silhouette. Bones and soft tissues: Degenerative changes are present within the thoracic spine. DIVISION OF RADIOLOGY Provider, Maikol Smith - 09/05/2021 * * *Final Report* * * DATE OF EXAM: Sep 05 2021 10:50AM WOX 5291 - XR CHEST 2V FRONTAL/LAT / PROCEDURE REASON: Cough * * * * Physician Interpretation * * * * EXAMINATION: CHEST RADIOGRAPH (2 VIEW FRONTAL & LATERAL) CLINICAL HISTORY: Cough MQ: XC2_6 EXAM DATE/TIME: 09/05/2021 10:50 AM COMPARISON: Chest x-ray dated February 20, 2021 RESULT: Lines, tubes, and devices: None. Lungs and pleura: No consolidation. No lung mass. No pleural effusion. No pneumothorax. Cardiomediastinal silhouette: Normal cardiomediastinal silhouette. Bones and soft tissues: Degenerative changes are present within the thoracic spine. IMPRESSION IMPRESSION: No acute radiographic abnormality. 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 ORGANISM: *Staphylococcus epidermidis (ID: 1) >100,000 CFU/ml Normal [facility] Comment on above: Performed By: #### C _URI #### [place] [address] Cult Urineon 08-20-2018 Cult Urine Test performed at [facility] ORGANISM: *Escherichia vulneris (ID: 1) >100,000 CFU/ml Normal [facility] Comment on above: Performed By: #### C _URI #### [place] [address] Urinalysis Routineon 019 Appearance (U) 3+ (CLOUDY) Normal [facility] Comment on above: Performed By: #### L URIN #### [facility] [address] [place] [address] Bacteria LM.HPF (Urine sed) [#/Area] MANY Abnormal None [facility] Comment on above: Performed By: #### L URIN #### [facility] [address] [place] [address] Bilirubin Urine Negative Normal Negative [facility] Comment on above: Performed By: #### L URIN #### [facility] [address] [place] [address] Color (U) YELLOW Normal [facility] Comment on above: Performed By: #### L URIN #### [place] [address] Ep Cells Urine NONE Normal 0-5 [facility] Comment on above: Performed By: #### L URIN #### [place] [address] Glucose Ql (U) Negative Normal Negative [facility] Comment on above: Performed By: #### L URIN #### [place] [address] Hemoglobin,Urine Negative Normal Negative [facility] Comment on above: Performed By: #### L URIN #### [place] [address] Ketone Urine Negative Normal Negative [facility] Comment on above: Performed By: #### L URIN #### [place] [address] Leukocytes Esterase Negative Normal Negative [facility] Comment on above: Performed By: #### L URIN #### [place] [address] Nitrites Urine Positive Abnormal Negative [employer] [facility] Comment on above: Performed By: #### L URIN #### [place] [address] pH (U) 6.5 [pH] Normal 5.0-8.0 [employer] [facility] Comment on above: Performed By: #### L URIN #### [place] [address] Protein (U) [Mass/Vol] Negative Normal Negative [facility] Comment on above: Performed By: #### L URIN #### [facility] [address] [place] [address] RBC LM.HPF (Urine sed) [#/Area] 0-3 Normal 0-3 [facility] Comment on above: Performed By: #### L URIN #### [facility] [address] [place] [address] Specific [place], Ur 1.025 Normal 1.005-1 .03 0 [facility] Comment on above: Performed By: #### L URIN #### [facility] [address] [place] [address] Urobilinogen,Ur 0.2 EU/dL Normal 0.0-1.0 [facility] Comment on above: Performed By: #### L URIN #### [facility] [address] [place] [address] WBC LM.HPF (Urine sed) [#/Area] 1-3 Normal 0-5 [facility] Comment on above: Performed By: #### L URIN #### [facility] [address] [place] [address] CR Shoulder 2+ Views Lefton 07-19-2018 CR Shoulder 2+ Views Left Patient Name: MATEUS MANZANO Diagnostic Radiology Exam Date/Time 07/19/2018 09:54:24 EST Exam CR Shoulder 2+ Views Left Ordering Physician CRYSTAL DODD STEPHANIE J Accession Number [id number] CPT4 Codes 45255 () Reason For Exam Pain left shoulder Report LEFT SHOULDER: CLINICAL INDICATION: Pain for two months. TECHNIQUE: Three views COMPARISON: None. FINDINGS: There is no evidence for fracture or dislocation. The glenohumeral joint is normal. There is some spurring, narrowing and subchondral cystic formation of the acromioclavicular joint. No bone lesion is identified. There is no soft tissue abnormality. 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 No other abnormality. Report Dictated on Final Dictated: 07/19/2018 2:17 pm Dictating Physician: MD MARINELLI JEFFREY Signed Date and Time: 07/19/2018 2:18 pm Signed by: MD MARINELLI JEFFREY Transcribed Date and Time: 07/19/2018 2:17 Normal [facility] MRI Spine Cervical w/o Contr saira 07-19-2018 MRI Spine Cervical w/o Contrast Patient Name: MATEUS MANZANO MRI Exam Date/Time 07/19/2018 10:57:17 EST Exam MRI Spine Cervical w/o Contrast Ordering Physician CRYSTAL DODD STEPHANIE J Accession Number [id number] CPT4 Codes 34735 () Reason For Exam Cervicalgia, Radiculopathy, cervical region Report Clinical indications: Cervical radiculopathy, cervicalgia FINDINGS: Multiplanar, multisequence imaging of the cervical spine was performed without gadolinium. There are no prior studies for comparison. The exam was moderately degraded by patient motion artifact. Pulse sequences could not be repeated due to CRUZ limitations. Alignment, curvature and segmentation appear to be within normal limits. Marrow signal characteristics are generally unremarkable. There is no evidence of focal spinal cord signal abnormality, atrophy or expansion. The craniocervical junction and visualized contents of the posterior fossa appear unremarkable. The cerebellar tonsils are slightly low-lying, with 2 mm of minimal ectopia. Clinical significance of this finding is uncertain. C2-C3, C3-C4, C7-T1: Disc space height is maintained at these levels and no significant protrusion or bulge is identified. There is no evidence of central stenosis. The foramina are unremarkable. C4-C5: There is minimal loss of disc space height and a small, irregular protrusion is identified. Central canal dimensions are at the lower limits of normal. There is some mild bilateral foraminal narrowing. C5-C6: There is slight loss of disc space height and signal. An irregular broad-based protrusion is present, with an exaggerated right paracentral component. This produces a mild to moderate degree of central stenosis. There is also moderate bilateral foraminal narrowing. C6-C7: There is minimal loss of disc space height and signal. No significant protrusion or bulge is appreciated. There may be some mild narrowing of the right neural foramen. The left neural foramen is patent. IMPRESSION: There appears to be some mild central canal stenosis at C4-C5 and moderate stenosis at C5-C6, as noted above. There is some associated foraminal compromise. There is narrowing of the right neural foramen and C6-C7, but no evidence of central stenosis or significant disc protrusion/bulge. Report Dictated on Final Dictated: 07/19/2018 11:34 am Dictating Physician: MD JAEGER RUSSELL Signed Date and Time: 07/19/2018 11:47 am Signed by: MD JAEGER RUSSELL Transcribed Date and Time: 07/19/2018 11:34 Normal [facility] Cult Urineon 06-13-2018 Cult Urine Test performed at [facility] No growth Normal [facility] Comment on above: Performed By: #### C _URI #### [place] [address] Macroscopic Urinalysison Appearance (U) CLEAR Normal [facility] Comment on above: Performed By: #### L MACU #### [place] [address] Bilirubin Urine Negative Normal Negative [facility] Comment on above: Performed By: #### L MACU #### [place] [address] Color (U) YELLOW Normal [facility] Comment on above: Performed By: #### L MACU #### [place] [address] Glucose Ql (U) Negative Normal Negative [facility] Comment on above: Performed By: #### L MACU #### [place] [address] Hemoglobin,Urine Negative Normal Negative [facility] Comment on above: Performed By: #### L MACU #### [place] [address] Ketone Urine Negative Normal Negative [facility] Comment on above: Performed By: #### L MACU #### [place] [address] Leukocytes Esterase Negative Normal Negative [facility] Comment on above: Performed By: #### L MACU #### [facility] [address] [place] [address] Nitrites Urine Negative Normal Negative [facility] Comment on above: Performed By: #### L MACU #### [facility] [address] [place] [address] pH (U) 6.0 [pH] Normal 5.0-8.0 [facility] Comment on above: Performed By: #### L MACU #### [facility] [address] [place] [address] Protein (U) [Mass/Vol] Negative Normal Negative [facility] Comment on above: Performed By: #### L MACU #### [facility] [address] [place] [address] Specific [place], Ur 1.025 Normal 1.005-1 .03 0 [facility] Comment on above: Performed By: #### L MACU #### [facility] [address] [place] [address] Urobilinogen,Ur 0.2 EU/dL Normal 0.0-1.0 [facility] Comment on above: Performed By: #### L MACU #### [facility] [address] [place] [address] XR LUMBAR 3V AP/LAT/L5-S1on 10-08-2017 XR LUMBAR 3V AP/LAT/L5-S1 * * *Final Report* * *DATE OF EXAM: Oct 08 2017 12:52PM EUX [id number] - XR LUMBAR 3V AP/LAT/L5-S1 / REASON: spasticity R25.2 * * * * Physician Interpretation * * * *RESULT: HISTORY: spasticity R25.2TECHNIQUE: Lumbar spine, 6 views. Thoracic spine, 4 views.COMPARISON: 10/12/2016RESULT:Lumbar spine: Counting reference: Lumbosacral junction. For the purposes of this report, L5S1 is considered the last lumbar type disc space.There is mild levoscoliotic curvature of the lumbar spine. Normal lumbar vertebral body heights and disc space heights. L4 limbus vertebra. IVC filter is present. Baclofen pump is in the soft tissue of the right ventral mid abdomen with tubing extending posteriorly to the spine. Parts of the thin tubing are not well seen. The catheter in the central canal is not seen other than a marker at the level of T9 inferior endplate indicating the catheter tip. T5-12 laminectomies. A few of the upper thoracic vertebral bodies are not seen well on the lateral view. Otherwise normal thoracic vertebral body heights and normal disc space heights.IMPRESSION:NO SIGNIFICANT INTERVAL CHANGETranscribed Using Voice RecognitionTranscribe Date/Time: Oct 08 2017 2:09PDictated by: Jacobo HERNANDEZ examination was interpreted and the report reviewed and electronically signed by: RANDY CRESPO MD on Oct 08 2017 2:17PM [id number] [facility] XR THORACIC 3V AP/LAT/SWIMME [facility] 10-08-2017 XR THORACIC 3V AP/LAT/SWIMMERS * * *Final Report* * *DATE OF EXAM: Oct 08 2017 12:52PM EUX [id number] - XR THORACIC 3V AP/LAT/SWIMMERS / REASON: spasticity R25.2 * * * * Physician Interpretation * * * *RESULT: HISTORY: spasticity R25.2TECHNIQUE: Lumbar spine, 6 views. Thoracic spine, 4 views.COMPARISON: 10/12/2016RESULT:Lumbar spine: Counting reference: Lumbosacral junction. For the purposes of this report, L5S1 is considered the last lumbar type disc space.There is mild levoscoliotic curvature of the lumbar spine. Normal lumbar vertebral body heights and disc space heights. L4 limbus vertebra. IVC filter is present. Baclofen pump is in the soft tissue of the right ventral mid abdomen with tubing extending posteriorly to the spine. Parts of the thin tubing are not well seen. The catheter in the central canal is not seen other than a marker at the level of T9 inferior endplate indicating the catheter tip. T5-12 laminectomies. A few of the upper thoracic vertebral bodies are not seen well on the lateral view. Otherwise normal thoracic vertebral body heights and normal disc space heights.IMPRESSION:NO SIGNIFICANT INTERVAL CHANGETranscribed Using Voice RecognitionTranscribe Date/Time: Oct 08 2017 2:09PDictated by: Jacobo HERNANDEZ examination was interpreted and the report reviewed and electronically signed by: RANDY CRESPO MD on Oct 08 2017 2:17PM [id number] Normal [facility] US Head/Neck Soft Tissueon 0 10-01-2017 US Head/Neck Soft Tissue Patient Name: MATEUS MANZANO Ultrasound Exam Date/Time 10/01/2017 13:12:21 EDT Exam US Head/Neck Soft Tissue Ordering Physician CRYSTAL DODD STEPHANIE J Accession Number [id number] CPT4 Codes 33878 () Reason For Exam Posterior cervical spine area. Eval lump to be sure lipoma. Report Indication: Posterior cervical mass TECHNIQUE: Grayscale and color Doppler flow signal imaging was performed. FINDINGS: Focused ultrasound performed in the region of the patient's reported abnormality. No mass or fluid collection visible. Exam findings are unremarkable in the region of interest. IMPRESSION: Negative limited ultrasound. The etiology of patient's symptoms uncertain. If there are persistent or progressive symptoms consider additional evaluation. Report Dictated on Final Dictated: 10/01/2017 1:28 pm Dictating Physician: MD VIVAS JOHN Signed Date and Time: 10/01/2017 1:29 pm Signed by: MD VIVAS JOHN Transcribed Date and Time: 10/01/2017 1:28 Normal [facility] No Panel Information [facility] Vital Signs Date Time Vital Sign Value Performing Clinician Facility 11-13-2024 08:42-0400 Body temperature 99.61 [degF] Carlie Gustafson APRN.TELEVISION DIRECTOR Work Phone: [facility] 11-13-2024 08:42-0400 Diastolic blood pressure 73 mm[Hg] Carlie Gustafson APRN.TELEVISION DIRECTOR Work Phone: [facility] 11-13-2024 08:42-0400 Heart rate 103 /min Carlie Gustafson APRN.TELEVISION DIRECTOR Work Phone: [facility] 11-13-2024 08:42-0400 Respiratory rate 20 /min Carlie Gustafson APRN.CNP Work Phone: [facility] 11-13-2024 08:42-0400 SaO2% (BldA) [Mass fraction] 97 % Carlie Gustafson IMPORT DISPATCHER.TELEVISION DIRECTOR Work Phone: 1(120)819-654891 [place] [address] 11-13-2024 08:42-0400 Systolic blood pressure 115 mm[Hg] Carlie Gustafson SARAH.TELEVISION DIRECTOR Work Phone: 8(831)943-140091 [place] [address] 10-09-2024 20:53-0400 Heart rate 98 /min Dr. Anay Roque MD Work Phone: 0(485)754-554070 [place] [address] 10-09-2024 20:53-0400 Respiratory rate 16 /min Dr. Anay Roque MD Work Phone: 9(688)037-842870 [place] [address] 10-09-2024 20:53-0400 SaO2% (BldA) [Mass fraction] 91 % Dr. Anay Roque MD Work Phone: 1(431)904-521470 [place] [address] 10-09-2024 18:55-0400 Body mass index (BMI) [Ratio] 32.8 kg/m2 Dr. Anay Roque MD Work Phone: 7(634)754-712070 [place] [address] 10-09-2024 18:55-0400 Body weight 122.[address] Anay Roque MD Work Phone: 8(338)864-678370 [place] [address] 10-09-2024 18:53-0400 Body height 193.[address] Anay Roque MD Work Phone: 1(916)914-642670 [place] [address] 10-09-2024 18:53-0400 Body temperature 99.7 [degF] Dr. Anay Roque MD Work Phone: 2(363)178-106370 [place] [address] 10-09-2024 18:53-0400 Diastolic blood pressure 89 mm[Hg] Dr. Anay Roque MD Work Phone: 5(693)688-745570 [place] [address] 10-09-2024 18:53-0400 Systolic blood pressure 151 mm[Hg] Dr. Anay Roque MD Work Phone: 9(858)688-625570 [place] [address] 09-30-2024 10:39-0400 Diastolic blood pressure 78 mm[Hg] Anay Roque MD Work Phone: 4(952)183-023[address] [place] [address] 09-30-2024 10:39-0400 Heart rate 74 /min Anay Roque MD Work Phone: [facility] 09-30-2024 10:39-0400 Systolic blood pressure 147 mm[Hg] Anay Roque MD Work Phone: [facility] 09-30-2024 09:59-0400 Body height 193 cm Anay Roque MD Work Phone: [facility] 09-30-2024 09:59-0400 Body mass index (BMI) [Ratio] 32.87 kg/m2 Anay Roque MD Work Phone: [facility] 09-30-2024 09:59-0400 Body weight 122.47 kg Anay Roque MD Work Phone: [facility] Comment on above: per [facility] 09-30-2024 09:59-0400 SaO2% (BldA) [Mass fraction] 96 % Anay Roque MD Work Phone: [facility] 09-22-2024 10:00-0400 Diastolic blood pressure 86 mm[Hg] Cuong Eliana PT Work Phone: [facility] 09-22-2024 10:00-0400 Heart rate 87 /min Cuong Eliana PT Work Phone: [facility] 09-22-2024 10:00-0400 SaO2% (BldA) [Mass fraction] 97 % Cuong Eliana PT Work Phone: [facility] 09-22-2024 10:00-0400 Systolic blood pressure 132 mm[Hg] Cuong Eliana PT Work Phone: [facility] 09-19-2024 13:52-0400 Body height 193 cm Luda Armas MD Work Phone: [facility] 09-19-2024 13:52-0400 Body mass index (BMI) [Ratio] 32.87 kg/m2 Luda Armas MD Work Phone: [facility] 09-19-2024 13:52-0400 Body weight 122.47 kg Luda Armas MD Work Phone: [facility] 08-25-2024 14:04-0400 Diastolic blood pressure 81 mm[Hg] Daysi Roque PA-C Work Phone: [facility] 08-25-2024 14:04-0400 Heart rate 92 /min Daysi Roque PA-C Work Phone: [facility] 08-25-2024 14:04-0400 Systolic blood pressure 143 mm[Hg] Daysi Roque PA-C Work Phone: [facility] 08-05-2024 14:28-0500 Body mass index (BMI) [Ratio] 32.87 kg/m2 Tahir Camp MD Work Phone: [facility] 08-05-2024 14:28-0500 Body weight 122.47 kg Tahir Camp MD Work Phone: [facility] Comment on above: pt in wheelchair 08-05-2024 14:28-0500 Diastolic blood pressure 86 mm[Hg] Tahir Camp MD Work Phone: [facility] 08-05-2024 14:28-0500 Heart rate 76 /min Tahir Camp MD Work Phone: [facility] 08-05-2024 14:28-0500 Systolic blood pressure 134 mm[Hg] Tahir Camp MD Work Phone: [facility] 07-09-2024 14:07-0500 Body height 193 cm Pac 8 Work Phone: [facility] 07-09-2024 14:07-0500 Body mass index (BMI) [Ratio] 33.84 kg/m2 Pac 8 Work Phone: [facility] 07-09-2024 14:07-0500 Body temperature 97 [degF] Pac 8 Work Phone: [facility] 07-09-2024 14:07-0500 Body weight 126.1 kg Pac 8 Work Phone: [facility] 07-09-2024 14:07-0500 Diastolic blood pressure 82 mm[Hg] Pac 8 Work Phone: [facility] 07-09-2024 14:07-0500 Heart rate 84 /min Pac 8 Work Phone: [facility] 07-09-2024 14:07-0500 Respiratory rate 20 /min Pac 8 Work Phone: [facility] 07-09-2024 14:07-0500 SaO2% (BldA) [Mass fraction] 96 % Pac 8 Work Phone: [facility] 07-09-2024 14:07-0500 Systolic blood pressure 145 mm[Hg] Pac 8 Work Phone: [facility] 06-30-2024 10:18-0500 Body temperature 98.6 [degF] Daysi Roque PA-C Work Phone: [facility] 06-30-2024 10:18-0500 Diastolic blood pressure 75 mm[Hg] Daysi Kohr PA-C Work Phone: [facility] 06-30-2024 10:18-0500 Heart rate 73 /min Daysi Kohr PA-C Work Phone: [facility] 06-30-2024 10:18-0500 Systolic blood pressure 120 mm[Hg] Daysi Kohr PA-C Work Phone: [facility] 06-26-2024 08:57-0500 Body height 193 cm Daysi Kohr PA-C Work Phone: [facility] 06-26-2024 08:57-0500 Body mass index (BMI) [Ratio] 33.84 kg/m2 Daysi Kohr PA-C Work Phone: [facility] 06-26-2024 08:57-0500 Body weight 126.1 kg Daysi Roque PA-C Work Phone: [facility] 06-26-2024 08:57-0500 Diastolic blood pressure 76 mm[Hg] Daysi Roque PA-C Work Phone: [facility] 06-26-2024 08:57-0500 Heart rate 78 /min Daysi Ko PA-C Work Phone: [facility] 06-26-2024 08:57-0500 Systolic blood pressure 125 mm[Hg] Daysi He PA-C Work Phone: [facility] 06-23-2024 14:59-0500 Diastolic blood pressure 79 mm[Hg] Daysi Kohr PA-C Work Phone: [facility] 06-23-2024 14:59-0500 Heart rate 115 /min Daysi Ko PA-C Work Phone: [facility] 06-23-2024 14:59-0500 SaO2% (BldA) [Mass fraction] 93 % Daysi Ko PA-C Work Phone: [facility] 06-23-2024 14:59-0500 Systolic blood pressure 116 mm[Hg] Daysi Ko PA-C Work Phone: [facility] 05-26-2024 13:06-0500 Body mass index (BMI) [Ratio] 33.84 kg/m2 Daysi He PA-C Work Phone: [facility] 05-26-2024 13:06-0500 Body temperature 98.6 [degF] Daysi He PA-C Work Phone: [facility] 05-26-2024 13:06-0500 Body weight 126.1 kg Daysi He PA-C Work Phone: [facility] 05-26-2024 13:06-0500 Diastolic blood pressure 63 mm[Hg] Daysi Mya PA-C Work Phone: [facility] 05-26-2024 13:06-0500 Heart rate 101 /min Daysi WESTC Work Phone: [facility] 05-26-2024 13:06-0500 Systolic blood pressure 115 mm[Hg] Daysi GIORDANO-C Work Phone: [facility] 05-13-2024 11:19-0500 Diastolic blood pressure 80 mm[Hg] Anay Roque MD Work Phone: [facility] 05-13-2024 11:19-0500 Heart rate 72 /min Anay Roque MD Work Phone: [facility] 05-13-2024 11:19-0500 Respiratory rate 16 /min Anay Roque MD Work Phone: [facility] 05-13-2024 11:19-0500 Systolic blood pressure 128 mm[Hg] Anay Roque MD Work Phone: [facility] 03-28-2024 08:25-0400 Body mass index (BMI) [Ratio] 33.72 kg/m2 Anay Roque MD Work Phone: [facility] 03-28-2024 08:25-0400 Body weight 125.65 kg Anay Roque MD Work Phone: [facility] 03-28-2024 08:25-0400 Diastolic blood pressure 84 mm[Hg] Anay Roque MD Work Phone: [facility] 03-28-2024 08:25-0400 Heart rate 72 /min Anay Roque MD Work Phone: [facility] 03-28-2024 08:25-0400 SaO2% (BldA) [Mass fraction] 97 % Anay Roque MD Work Phone: [facility] 03-28-2024 08:25-0400 Systolic blood pressure 132 mm[Hg] Anay Roque MD Work Phone: [facility] 03-27-2024 08:43-0400 Body mass index (BMI) [Ratio] 33.72 kg/m2 Daysi Hehr PA-C Work Phone: [facility] 03-27-2024 08:43-0400 Body temperature 98.2 [degF] Daysi Mya PA-C Work Phone: [facility] 03-27-2024 08:43-0400 Body weight 125.65 kg Daysi Roque PA-C Work Phone: [facility] 03-27-2024 08:43-0400 Diastolic blood pressure 80 mm[Hg] Daysi Roque PA-C Work Phone: [facility] 03-27-2024 08:43-0400 Heart rate 74 /min Daysi Roque PA-C Work Phone: [facility] 03-27-2024 08:43-0400 Systolic blood pressure 136 mm[Hg] Daysi Roque PA-C Work Phone: [facility] 02-04-2024 15:38-0400 Diastolic blood pressure 84 mm[Hg] Anay Roque MD Work Phone: [facility] 02-04-2024 15:38-0400 Heart rate 64 /min Anay Roque MD Work Phone: [facility] 02-04-2024 15:38-0400 Respiratory rate 16 /min Anay Roque MD Work Phone: [facility] 02-04-2024 15:38-0400 Systolic blood pressure 130 mm[Hg] Anay Roque MD Work Phone: [facility] 01-14-2024 15:12-0400 Body temperature 98.4 [degF] Daysi Roque PA-C Work Phone: [facility] 01-14-2024 15:12-0400 Diastolic blood pressure 82 mm[Hg] Daysi Roque PA-C Work Phone: [facility] 01-14-2024 15:12-0400 Heart rate 85 /min Daysi Roque PA-C Work Phone: [facility] 01-14-2024 15:12-0400 Systolic blood pressure 138 mm[Hg] Daysi Roque PA-C Work Phone: [facility] 01-09-2024 16:16-0400 Diastolic blood pressure 80 mm[Hg] Anay Roque MD Work Phone: [facility] 01-09-2024 16:16-0400 Heart rate 93 /min Anay Roque MD Work Phone: [facility] 01-09-2024 16:16-0400 Respiratory rate 16 /min Anay Roque MD Work Phone: [facility] 01-09-2024 16:16-0400 SaO2% (BldA) [Mass fraction] 94 % Anay Roque MD Work Phone: [facility] 01-09-2024 16:16-0400 Systolic blood pressure 126 mm[Hg] Anay Roque MD Work Phone: [facility] 10-25-2023 10:19-0400 Diastolic blood pressure 80 mm[Hg] Daysi GIORDANO-Vijay Work Phone: [facility] 10-25-2023 10:19-0400 Heart rate 71 /min Daysi GIORDANO-Vijay Work Phone: [facility] 10-25-2023 10:19-0400 Systolic blood pressure 134 mm[Hg] Daysi GIORDANO-Vijay Work Phone: [facility] 08-09-2023 11:21-0500 Body temperature 97.81 [degF] Merry Lan DO Work Phone: [facility] 08-09-2023 11:21-0500 Body weight 127.01 kg Merry Lan DO Work Phone: [facility] 08-09-2023 11:21-0500 Diastolic blood pressure 74 mm[Hg] Merry Lan DO Work Phone: [facility] 08-09-2023 11:21-0500 Heart rate 91 /min Merry Lan DO Work Phone: [facility] 08-09-2023 11:21-0500 Respiratory rate 20 /min Merry Montenegro DO Work Phone: [facility] 08-09-2023 11:21-0500 SaO2% (BldA) [Mass fraction] 96 % Merry Montenegro DO Work Phone: [facility] 08-09-2023 11:21-0500 Systolic blood pressure 122 mm[Hg] Merrygus Montenegro DO Work Phone: [facility] 08-09-2023 10:23-0500 Body height 193 cm Daysi Roque PA-C Work Phone: [facility] 08-09-2023 10:23-0500 Body temperature 97.2 [degF] Daysi Roque PA-C Work Phone: [facility] 08-09-2023 10:23-0500 Body weight 127.01 kg Daysi Roque PA-C Work Phone: [facility] 08-09-2023 10:23-0500 Diastolic blood pressure 89 mm[Hg] Daysi Hehr PA-C Work Phone: [facility] 08-09-2023 10:23-0500 Systolic blood pressure 157 mm[Hg] Daysi oRque PA-C Work Phone: [facility] 07-31-2023 10:11-0500 Body temperature 97.7 [degF] Sarah Tang APRN.TELEVISION DIRECTOR Work Phone: [facility] 07-31-2023 10:11-0500 Body weight 127.01 kg Sarah Tang APRN.TELEVISION DIRECTOR Work Phone: [facility] 07-31-2023 10:11-0500 Diastolic blood pressure 82 mm[Hg] Sarah Tang APRN.TELEVISION DIRECTOR Work Phone: [facility] 07-31-2023 10:11-0500 Heart rate 78 /min Sarah Tang APRN.TELEVISION DIRECTOR Work Phone: [facility] 07-31-2023 10:11-0500 Respiratory rate 16 /min Sarah Tang APRN.TELEVISION DIRECTOR Work Phone: [facility] 07-31-2023 10:11-0500 SaO2% (BldA) [Mass fraction] 95 % Sarah Tang IMPORT DISPATCHER.TELEVISION DIRECTOR Work Phone: [facility] 07-31-2023 10:11-0500 Systolic blood pressure 128 mm[Hg] Sarah Tang APRN.TELEVISION DIRECTOR Work Phone: [facility] 05-25-2023 10:59-0500 Body height 193 cm Luda Armas MD Work Phone: [facility] 05-25-2023 10:59-0500 Body weight 127.01 kg Luda Armas MD Work Phone: [facility] 05-21-2023 09:38-0500 Body temperature 98.1 [degF] Loren Athy PA-C Work Phone: [facility] 05-21-2023 09:38-0500 Diastolic blood pressure 100 mm[Hg] Loren Athy PA-C Work Phone: [facility] 05-21-2023 09:38-0500 Heart rate 72 /min Loren Athy PA-C Work Phone: [facility] 05-21-2023 09:38-0500 Respiratory rate 16 /min Loren Athy PA-C Work Phone: [facility] 05-21-2023 09:38-0500 SaO2% (BldA) [Mass fraction] 96 % Loren Athy PA-C Work Phone: [facility] 05-21-2023 09:38-0500 Systolic blood pressure 156 mm[Hg] Loren Athy PA-C Work Phone: [facility] 04-14-2023 09:53-0400 Body temperature 100.09 [degF] Juliette Connors APRN.TELEVISION DIRECTOR Work Phone: [facility] 04-14-2023 09:53-0400 Diastolic blood pressure 66 mm[Hg] Juliette Connors IMPORT DISPATCHER.TELEVISION DIRECTOR Work Phone: [facility] 04-14-2023 09:53-0400 Heart rate 112 /min Juliette Connors IMPORT DISPATCHER.TELEVISION DIRECTOR Work Phone: [facility] 04-14-2023 09:53-0400 Respiratory rate 20 /min Juliette Connors IMPORT DISPATCHER.TELEVISION DIRECTOR Work Phone: [facility] 04-14-2023 09:53-0400 SaO2% (BldA) [Mass fraction] 97 % Juliette Connors IMPORT DISPATCHER.TELEVISION DIRECTOR Work Phone: [facility] 04-14-2023 09:53-0400 Systolic blood pressure 140 mm[Hg] Juliette Connors IMPORT DISPATCHER.TELEVISION DIRECTOR Work Phone: [facility] 03-05-2023 10:28-0400 Body temperature 98.49 [degF] Carlie Sj IMPORT DISPATCHER.TELEVISION DIRECTOR Work Phone: [facility] 03-05-2023 10:28-0400 Body weight 127.01 kg Carlie Js IMPORT DISPATCHER.TELEVISION DIRECTOR Work Phone: [facility] 03-05-2023 10:28-0400 Diastolic blood pressure 76 mm[Hg] Carlie Sj IMPORT DISPATCHER.TELEVISION DIRECTOR Work Phone: [facility] 03-05-2023 10:28-0400 Heart rate 78 /min Carlie Sj IMPORT DISPATCHER.TELEVISION DIRECTOR Work Phone: [facility] 03-05-2023 10:28-0400 Respiratory rate 18 /min Carlie Sj IMPORT DISPATCHER.TELEVISION DIRECTOR Work Phone: [facility] 03-05-2023 10:28-0400 SaO2% (BldA) [Mass fraction] 96 % Carlie Sj IMPORT DISPATCHER.TELEVISION DIRECTOR Work Phone: [facility] 03-05-2023 10:28-0400 Systolic blood pressure 137 mm[Hg] Calrie Sj IMPORT DISPATCHER.TELEVISION DIRECTOR Work Phone: [facility] 01-08-2023 09:08-0400 Diastolic blood pressure 73 mm[Hg] Ruslan Sherwood MD Work Phone: [facility] 01-08-2023 09:08-0400 Heart rate 53 /min Ruslan Sherwood MD Work Phone: [facility] 01-08-2023 09:08-0400 Systolic blood pressure 115 mm[Hg] Ruslan Sherwood MD Work Phone: [facility] 11-15-2022 10:49-0400 Body height 193 cm Daysi Roque PA-C Work Phone: [facility] 11-15-2022 10:49-0400 Body weight 127.01 kg Daysi Roque PA-C Work Phone: [facility] 11-15-2022 10:49-0400 Diastolic blood pressure 79 mm[Hg] Daysi Roque PA-C Work Phone: [facility] 11-15-2022 10:49-0400 Heart rate 71 /min Daysi Roque PA-C Work Phone: [facility] 11-15-2022 10:49-0400 Systolic blood pressure 127 mm[Hg] Daysi Hehr PA-C Work Phone: [facility] 10-02-2022 13:08-0400 Diastolic blood pressure 80 mm[Hg] Ruslan Sherwood MD Work Phone: [facility] 10-02-2022 13:08-0400 Heart rate 70 /min Ruslan Sherwood MD Work Phone: [facility] 10-02-2022 13:08-0400 Respiratory rate 18 /min Ruslan Sherwood MD Work Phone: [facility] 10-02-2022 13:08-0400 SaO2% (BldA) [Mass fraction] 98 % Ruslan Sherwood MD Work Phone: [facility] 10-02-2022 13:08-0400 Systolic blood pressure 126 mm[Hg] Ruslan Sherwood MD Work Phone: [facility] 07-19-2022 12:05-0500 Body height 193 cm Ceferino Regalado MD Work Phone: [facility] 07-19-2022 12:05-0500 Body weight 132 kg Ceferino Regalado MD Work Phone: [facility] 07-19-2022 12:05-0500 Diastolic blood pressure 76 mm[Hg] Ceferino Regalado MD Work Phone: [facility] 07-19-2022 12:05-0500 Systolic blood pressure 124 mm[Hg] Ceferino Regalado MD Work Phone: [facility] 07-10-2022 09:28-0500 Body weight 132 kg Ruslan Sherwood MD Work Phone: [facility] 07-06-2022 12:00-0500 Diastolic blood pressure 84 mm[Hg] Infusion 2 Work Phone: [facility] 07-06-2022 12:00-0500 Heart rate 69 /min Infusion 2 Work Phone: [facility] 07-06-2022 12:00-0500 Respiratory rate 18 /min Infusion 2 Work Phone: [facility] 07-06-2022 12:00-0500 SaO2% (BldA) [Mass fraction] 95 % Infusion 2 Work Phone: [facility] 07-06-2022 12:00-0500 Systolic blood pressure 167 mm[Hg] Infusion 2 Work Phone: [facility] 07-05-2022 12:15-0500 Diastolic blood pressure 76 mm[Hg] Infusion 2 Work Phone: [facility] 07-05-2022 12:15-0500 Heart rate 68 /min Infusion 2 Work Phone: [facility] 07-05-2022 12:15-0500 Respiratory rate 13 /min Infusion 2 Work Phone: [facility] 07-05-2022 12:15-0500 SaO2% (BldA) [Mass fraction] 98 % Infusion 2 Work Phone: [facility] 07-05-2022 12:15-0500 Systolic blood pressure 156 mm[Hg] Infusion 2 Work Phone: [facility] 07-04-2022 12:43-0500 Diastolic blood pressure 82 mm[Hg] Infusion 2 Work Phone: [facility] 07-04-2022 12:43-0500 Heart rate 62 /min Infusion 2 Work Phone: [facility] 07-04-2022 12:43-0500 Respiratory rate 20 /min Infusion 2 Work Phone: [facility] 07-04-2022 12:43-0500 SaO2% (BldA) [Mass fraction] 96 % Infusion 2 Work Phone: [facility] 07-04-2022 12:43-0500 Systolic blood pressure 158 mm[Hg] Infusion 2 Work Phone: [facility] 07-03-2022 12:47-0500 Diastolic blood pressure 66 mm[Hg] Infusion 2 Work Phone: [facility] 07-03-2022 12:47-0500 Heart rate 69 /min Infusion 2 Work Phone: [facility] 07-03-2022 12:47-0500 Respiratory rate 12 /min Infusion 2 Work Phone: [facility] 07-03-2022 12:47-0500 SaO2% (BldA) [Mass fraction] 93 % Infusion 2 Work Phone: [facility] 07-03-2022 12:47-0500 Systolic blood pressure 127 mm[Hg] Infusion 2 Work Phone: [facility] 07-03-2022 10:31-0500 Body weight 132.41 kg Infusion 2 Work Phone: [facility] 06-14-2022 07:49-0500 Body temperature 97.81 [degF] Carlie Gustafson IMPORT DISPATCHER.TELEVISION DIRECTOR Work Phone: [facility] 06-14-2022 07:49-0500 Diastolic blood pressure 80 mm[Hg] Carlie Gustafson IMPORT DISPATCHER.TELEVISION DIRECTOR Work Phone: [facility] 06-14-2022 07:49-0500 Heart rate 86 /min Carlie Gustafson IMPORT DISPATCHER.TELEVISION DIRECTOR Work Phone: [facility] 06-14-2022 07:49-0500 Respiratory rate 16 /min Carlie Gustafson IMPORT DISPATCHER.TELEVISION DIRECTOR Work Phone: [facility] 06-14-2022 07:49-0500 SaO2% (BldA) [Mass fraction] 95 % Carlie Gustafson IMPORT DISPATCHER.TELEVISION DIRECTOR Work Phone: [facility] 06-14-2022 07:49-0500 Systolic blood pressure 132 mm[Hg] Carlie Gustafson IMPORT DISPATCHER.TELEVISION DIRECTOR Work Phone: [facility] 02-17-2022 09:40-0400 Diastolic blood pressure 92 mm[Hg] Infusion 3 Work Phone: [facility] 02-17-2022 09:40-0400 Heart rate 64 /min Infusion 3 Work Phone: [facility] 02-17-2022 09:40-0400 Respiratory rate 20 /min Infusion 3 Work Phone: [facility] 02-17-2022 09:40-0400 SaO2% (BldA) [Mass fraction] 98 % Infusion 3 Work Phone: [facility] 02-17-2022 09:40-0400 Systolic blood pressure 154 mm[Hg] Infusion 3 Work Phone: [facility] 02-16-2022 10:14-0400 Diastolic blood pressure 74 mm[Hg] Infusion 3 Work Phone: [facility] 02-16-2022 10:14-0400 Heart rate 60 /min Infusion 3 Work Phone: [facility] 02-16-2022 10:14-0400 Respiratory rate 14 /min Infusion 3 Work Phone: [facility] 02-16-2022 10:14-0400 SaO2% (BldA) [Mass fraction] 100 % Infusion 3 Work Phone: [facility] 02-16-2022 10:14-0400 Systolic blood pressure 143 mm[Hg] Infusion 3 Work Phone: [facility] 02-15-2022 09:43-0400 Diastolic blood pressure 89 mm[Hg] Infusion 3 Work Phone: [facility] 02-15-2022 09:43-0400 Heart rate 63 /min Infusion 3 Work Phone: [facility] 02-15-2022 09:43-0400 Respiratory rate 18 /min Infusion 3 Work Phone: [facility] 02-15-2022 09:43-0400 SaO2% (BldA) [Mass fraction] 96 % Infusion 3 Work Phone: [facility] 02-15-2022 09:43-0400 Systolic blood pressure 163 mm[Hg] Infusion 3 Work Phone: [facility] 02-14-2022 09:44-0400 Diastolic blood pressure 77 mm[Hg] Infusion 3 Work Phone: [facility] 02-14-2022 09:44-0400 Heart rate 56 /min Infusion 3 Work Phone: [facility] 02-14-2022 09:44-0400 Respiratory rate 20 /min Infusion 3 Work Phone: [facility] 02-14-2022 09:44-0400 SaO2% (BldA) [Mass fraction] 98 % Infusion 3 Work Phone: [facility] 02-14-2022 09:44-0400 Systolic blood pressure 142 mm[Hg] Infusion 3 Work Phone: [facility] 02-10-2022 10:01-0400 Body temperature 98.49 [degF] [facility] Work Phone: [facility] 02-10-2022 10:01-0400 Diastolic blood pressure 72 mm[Hg] [facility] Work Phone: [facility] 02-10-2022 10:01-0400 Heart rate 66 /min [facility] Work Phone: [facility] 02-10-2022 10:01-0400 SaO2% (BldA) [Mass fraction] 98 % [facility] Work Phone: [facility] 02-10-2022 10:01-0400 Systolic blood pressure 124 mm[Hg] [facility] Work Phone: [facility] 01-25-2022 11:41-0400 Body height 193 cm Anay Roque MD Work Phone: [facility] 01-25-2022 11:41-0400 Body temperature 98.71 [degF] Anay Roque MD Work Phone: [facility] 01-25-2022 11:41-0400 Body weight 129.28 kg Anay Roque MD Work Phone: [facility] 01-25-2022 11:41-0400 Diastolic blood pressure 60 mm[Hg] Anay Roque MD Work Phone: [facility] 01-25-2022 11:41-0400 Heart rate 77 /min Anay Roque MD Work Phone: [facility] 01-25-2022 11:41-0400 Respiratory rate 12 /min Anay Roque MD Work Phone: [facility] 01-25-2022 11:41-0400 SaO2% (BldA) [Mass fraction] 96 % Anay Roque MD Work Phone: [facility] 01-25-2022 11:41-0400 Systolic blood pressure 114 mm[Hg] Anay Roque MD Work Phone: [facility] 12-27-2021 10:31-0400 Body weight 127.73 kg Infusion 2 Work Phone: [facility] 11-30-2021 14:31-0400 Body height 193 cm Shaq Salinas MD Work Phone: [facility] 11-30-2021 14:31-0400 Body weight 133.81 kg Shaq Salinas MD Work Phone: [facility] 11-30-2021 14:31-0400 Diastolic blood pressure 70 mm[Hg] Shaq Salinas MD Work Phone: [facility] 11-30-2021 14:31-0400 Heart rate 79 /min Shaq Salinas MD Work Phone: [facility] 11-30-2021 14:31-0400 SaO2% (BldA) [Mass fraction] 96 % Shaq Salinas MD Work Phone: [facility] 11-30-2021 14:31-0400 Systolic blood pressure 130 mm[Hg] Shaq Salinas MD Work Phone: [facility] 11-24-2021 09:08-0400 7 1 Referring Provider Unknown [facility] Work Phone: Comment on above: PDI1 11-24-2021 09:08-0400 8 1 Referring Provider Unknown [facility] Work Phone: Comment on above: PDI2 PDI4 PDI5 11-24-2021 09:08-0400 9 1 Referring Provider Unknown [facility] Work Phone: Comment on above: PDI3 11-24-2021 09:08-0400 6 1 Referring Provider Unknown [facility] Work Phone: Comment on above: PDI6 11-24-2021 09:08-0400 3 1 Referring Provider Unknown [facility] Work Phone: Comment on above: PDI7 11-24-2021 09:08-0400 49 1 Referring Provider Unknown [facility] Work Phone: Comment on above: PDITOTAL 11-24-2021 08:29-0400 Diastolic blood pressure 71 mm[Hg] Referring Provider Unknown [facility] Work Phone: 11-24-2021 08:29-0400 Heart rate 76 /min Referring Provider Unknown [facility] Work Phone: 11-24-2021 08:29-0400 Respiratory rate 16 /min Referring Provider Unknown [facility] Work Phone: 11-24-2021 08:29-0400 Systolic blood pressure 125 mm[Hg] Referring Provider Unknown [facility] Work Phone: 11-24-2021 08:29-0400 4 1 Referring Provider Unknown [facility] Work Phone: Comment on above: [facility] 11-14-2021 01:15-0400 Respiratory rate 16 /min [facility] Work Phone: 11-14-2021 00:51-0400 Body height 193.04 cm [facility] Work Phone: 11-14-2021 00:51-0400 Body mass index (BMI) [Ratio] 35.9 kg/m2 [facility] Work Phone: 11-14-2021 00:51-0400 Body temperature 98 [degF] [facility] Work Phone: 11-14-2021 00:51-0400 Body weight 133.8 kg [facility] Work Phone: 11-14-2021 00:51-0400 Diastolic blood pressure 81 mm[Hg] [facility] Work Phone: 11-14-2021 00:51-0400 Heart rate 87 /min [facility] Work Phone: 11-14-2021 00:51-0400 SaO2% (BldA) [Mass fraction] 99 % [facility] Work Phone: 11-14-2021 00:51-0400 Systolic blood pressure 134 mm[Hg] [facility] Work Phone: 09-24-2021 10:50-0400 Body temperature 98.01 [degF] Sarah Tang APRN.TELEVISION DIRECTOR Work Phone: [facility] 09-24-2021 10:50-0400 Diastolic blood pressure 80 mm[Hg] Sarah Tang APRN.TELEVISION DIRECTOR Work Phone: [facility] 09-24-2021 10:50-0400 Heart rate 68 /min Sarah Tang APRN.TELEVISION DIRECTOR Work Phone: [facility] 09-24-2021 10:50-0400 SaO2% (BldA) [Mass fraction] 94 % Sarah Tang APRN.TELEVISION DIRECTOR Work Phone: [facility] 09-24-2021 10:50-0400 Systolic blood pressure 138 mm[Hg] Sarah Tang APRN.TELEVISION DIRECTOR Work Phone: [facility] Encounters Encounter Date Encounter Type Care Provider Facility Start: 12-01-2024 End: 12-01-2024 ambulatory Cuong Eliana PT Work Phone: [facility] Comment on above: Paraplegia (HCC) (Pr imary Dx); Impaired motor control; Gait abnormality; T4 spinal cord injury, sequela (HCC) Start: 11-26-2024 End: 11-26-2024 ambulatory Alexis Anderson PT Work Phone: [facility] Comment on above: Impingement syndrome of right shoulder (Primary Dx); Impingement syndrome of left shoulder Start: 11-24-2024 End: 11-24-2024 ambulatory Cuong Eliana PT Work Phone: [facility] Comment on above: Paraplegia (HCC) (Pr imary Dx); Gait abnormality; Muscle spasticity Start: 11-20-2024 End: 11-20-2024 ambulatory Cuong Eliana PT Work Phone: [facility] Comment on above: Paraplegia (HCC) (Pr imary Dx); Gait abnormality; Muscle spasticity; Impaired functional mobility, balance, gait, and endurance Start: 11-19-2024 End: 11-19-2024 ambulatory ALEXIS ANDERSON Facility:[facility] Comment on above: Impingement syndrome of right shoulder (Primary Dx); Impingement syndrome of left shoulder Start: 11-17-2024 End: 11-17-2024 ambulatory Ruslan Sherwood MD Work Phone: [facility] Comment on above: Antibiotics and Boto x Start: 11-15-2024 End: 11-15-2024 Follow-up encounter Tez Ibarra APRN.TELEVISION DIRECTOR Work Phone: [facility] Start: 11-14-2024 End: 11-14-2024 Patient encounter procedure Jackson Ralph Work Phone: Podiatry Comment on above: Onychomycosis; Ingrown toenail Start: 11-14-2024 End: 11-14-2024 ambulatory JACKSON RALPH Facility:[facility] Start: 11-13-2024 End: 11-13-2024 Patient encounter procedure Carlie Gustafson APRN.TELEVISION DIRECTOR Work Phone: [facility] Comment on above: Fever, unspecified f ever cause (Primary Dx); Urinary frequency Start: 11-13-2024 End: 11-13-2024 ambulatory ANAY ROQUE Facility:[facility] Start: 11-12-2024 End: 11-12-2024 ambulatory Alexis Anderson PT Work Phone: [facility] Comment on above: Impingement syndrome of right shoulder (Primary Dx); Impingement syndrome of left shoulder Start: 11-07-2024 End: 11-07-2024 ambulatory ALEXIS ANDERSON Facility:[facility] Start: 11-03-2024 End: 11-03-2024 ambulatory Cuong Eliana PT Work Phone: [facility] Comment on above: Paraplegia (HCC) (Pr imary Dx); Impaired motor control; Gait abnormality; Muscle spasticity; Impaired functional mobility, balance, gait, and endurance Start: 10-31-2024 End: 10-31-2024 ambulatory Alexis Anderson PT Work Phone: [facility] Comment on above: Impingement syndrome of right shoulder (Primary Dx); Impingement syndrome of left shoulder Start: 10-30-2024 End: 10-30-2024 ambulatory Cuong Monroy PT Work Phone: [facility] Comment on above: Paraplegia (HCC) (Pr imary Dx); Gait abnormality; T4 spinal cord injury, sequela (HCC); Impaired motor control; Impingement syndrome of right shoulder Start: 10-27-2024 End: 10-27-2024 ambulatory Cuong Monroy PT Work Phone: [facility] Comment on above: Gait abnormality (Pr imary Dx); T4 spinal cord injury, sequela (HCC); Paraplegia (HCC); Impaired motor control Start: 10-24-2024 End: 10-24-2024 ambulatory Alexis Anderson PT Work Phone: [facility] Comment on above: Impingement syndrome of right shoulder (Primary Dx); Impingement syndrome of left shoulder Start: 10-23-2024 End: 10-23-2024 ambulatory Cuong Monroy PT Work Phone: [facility] Comment on above: Gait abnormality (Pr imary Dx); T4 spinal cord injury, sequela (HCC); Muscle spasticity; Impaired motor control Start: 10-17-2024 End: 10-17-2024 Patient encounter procedure Fatuma Bean [employer] Work Phone: Behavioral Health Comment on above: Adjustment disorder with mixed anxiety and depressed mood (Primary Dx); Erectile dysfunction due to diseases classified elsewhere; 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Start: 10-17-2024 End: 10-17-2024 ambulatory FATUMA BEAN Facility:[facility] Start: 10-16-2024 End: 10-16-2024 ambulatory Conrad Dodd PT Work Phone: [facility] Comment on above: T4 spinal cord injur y, sequela (HCC) (Primary Dx); Impingement syndrome of right shoulder; Impingement syndrome of left shoulder; Gait abnormality; Paraplegia (HCC) Start: 10-13-2024 End: 10-13-2024 Telephone encounter Anay Roque MD Work Phone: [facility] Comment on above: Consult Start: 10-13-2024 End: 10-13-2024 ambulatory DAYSI RQOUE Facility:[facility] Start: 10-09-2024 End: 10-09-2024 Emergency department patient visit Dr. Anay Roque MD Work Phone: -Emergency Department Work Phone: Start: 10-09-2024 End: 10-09-2024 ambulatory ANAY ROQUE Facility:[facility] Start: 10-08-2024 End: 10-08-2024 Refill Daysi Roque PA-C Work Phone: Rehab Medicine [facility] Comment on above: Refill Request Start: 10-02-2024 End: 10-03-2024 Telephone encounter Anay Roque MD Work Phone: [facility] Comment on above: Patient Question Start: 09-30-2024 End: 09-30-2024 ambulatory ANAY ROQUE Facility:[facility] Start: 09-30-2024 End: 09-30-2024 Office outpatient visit 25 minutes Anay Roque MD Work Phone: Internal Medicine [place] Comment on above: KARAN (obstructive sle ep apnea) (Primary Dx); Encounter for smoking cessation counseling; Tobacco abuse disorder; Neurogenic bladder; Recurrent UTI; Spinal cord injury, T7-T12 ([facility]); Onychomycosis; Ingrown toenail; Chronic pain syndrome; Paraplegia, complete ([facility]) Start: 09-23-2024 End: 09-23-2024 ambulatory Alexis Anderson PT Work Phone: [facility] Comment on above: Impingement syndrome of right shoulder (Primary Dx); Impingement syndrome of left shoulder Start: 09-22-2024 End: 09-22-2024 ambulatory Cuong Monroy PT Work Phone: [facility] Comment on above: T4 spinal cord injur y, sequela (HCC) (Primary Dx); Muscle spasticity; Gait abnormality; Paraplegia (HCC) Start: 09-19-2024 End: 09-19-2024 ambulatory LUDA ARMAS Facility:[facility] Start: 09-19-2024 End: 09-19-2024 Office outpatient visit 25 minutes Luda Armas MD Work Phone: Urology Comment on above: Hypogonadism in male (Primary Dx); Impotence of organic origin Start: 09-17-2024 End: 09-17-2024 Refill Luda Armas MD Work Phone: Urology Comment on above: Refill Request Start: 09-16-2024 End: 09-16-2024 ambulatory Alexis Anderson PT Work Phone: [facility] Comment on above: Impingement syndrome of right shoulder (Primary Dx); Impingement syndrome of left shoulder Start: 09-03-2024 End: 09-03-2024 ambulatory JACKSON DE LA ROSA Facility:[facility] Start: 09-03-2024 End: 09-03-2024 Subsequent hospital visit by physician Jason [facility] Xray [facility] Comment on above: Pain of both shoulde r joints [M25.511, M25.512] Start: 08-25-2024 End: 08-25-2024 Chart abstracting Daysi Roque PA-C Work Phone: [facility] Start: 08-25-2024 End: 08-25-2024 ambulatory DAYSI ROQUE Facility:[facility] Start: 08-25-2024 End: 08-25-2024 Patient encounter procedure Daysi Roque PA-C Work Phone: [facility] Comment on above: T4 spinal cord injur y, sequela (HCC) (Primary Dx); Muscle spasticity; Pain of both shoulder joints Start: 08-21-2024 End: 08-21-2024 Refill Daysi Roque PA-C Work Phone: [facility] Start: 08-05-2024 End: 08-05-2024 ambulatory TAHIR CAMP Facility:[facility] Start: 08-05-2024 End: 08-05-2024 Patient encounter procedure Tahir Camp MD Work Phone: [facility] Comment on above: Paraplegia (HCC) (Pr imary Dx); Spasticity; Spasm of muscle; Impaired mobility Start: 08-05-2024 End: 08-06-2024 Telephone encounter Anay Roque MD Work Phone: [facility] Comment on above: Transition Of Care Informed Consent Start: 08-04-2024 End: 08-04-2024 Telephone encounter Anay Roque MD Work Phone: [facility] [place] Comment on above: Transition Of Care Start: 07-28-2024 End: 07-28-2024 Telephone encounter Anay Roque MD Work Phone: [facility] Comment on above: Transition Of Care Start: 07-25-2024 End: 07-25-2024 Telephone encounter Anay Roque MD Work Phone: [facility] Comment on above: Transition Of Care Start: 07-24-2024 End: 07-24-2024 ambulatory ANAY ROQUE Facility:[facility] Start: 07-24-2024 End: 07-24-2024 Patient encounter procedure Jamey Shelby MD Work Phone: [facility] Comment on above: Paraplegia (HCC) (Pr imary Dx); Spasticity; T4 spinal cord injury, sequela (HCC) Start: 07-22-2024 End: 07-22-2024 Refill Daysi Roque PA-C Work Phone: [facility] Comment on above: Refill Request Medication Problem Start: 07-14-2024 End: 07-14-2024 Evaluation and management of inpatient GLYNN FRANCESGUZMAN Facility:[facility] Start: 07-11-2024 End: 07-11-2024 ambulatory RENATA NAPIER Facility:[facility] Start: 07-11-2024 End: 07-11-2024 Patient encounter procedure Renata Napier MD Work Phone: [facility] Comment on above: Paraplegia (HCC) (Pr imary Dx); Spinal cord injury at T7-T12 level (HCC); Presence of intrathecal baclofen pump Start: 07-10-2024 End: 07-10-2024 Telephone encounter Marlyn Davies RN Pre Anesthesia Comment on above: Pre-Op Update Start: 07-09-2024 End: 07-09-2024 ambulatory SHAQ SALINAS Facility:[facility] Start: 07-09-2024 End: 07-11-2024 PAT [facility] Work Phone: Pre Anesthesia Comment on above: Spinal cord injury, T7-T12 (HCC) (Primary Dx); Paraplegia (HCC); Factor 5 Leiden mutation, heterozygous (HCC); Tobacco abuse disorder; KARAN (obstructive sleep apnea); Chronic pain syndrome; Asthma, unspecified asthma severity, unspecified whether complicated, unspecified whether persistent; Neurogenic bladder; Recurrent UTI; History of pulmonary embolus (PE); Pre-op evaluation Spasticity (Primary Dx) Appointment Start: 07-09-2024 End: 07-09-2024 Preprocedural examination done [facility] Work Phone: [facility] Work Phone: Start: 07-09-2024 End: 07-09-2024 ambulatory SHAQ Machuca SALINAS Facility:[facility] Start: 07-09-2024 Encounter for other preprocedural examination TAHIR CAMP [facility] Start: 07-08-2024 End: 07-08-2024 ambulatory JIMENA KRAMER Facility:[facility] Start: 07-08-2024 End: 07-08-2024 Patient encounter procedure Jimena Kramer PA-C Work Phone: [facility] Comment on above: Spinal cord injury a t T7-T12 level (HCC) (Primary Dx); Presence of intrathecal baclofen pump; Spasticity Start: 07-04-2024 End: 07-04-2024 Telephone encounter Jimena Kramer PA-C Work Phone: [facility] [facility] Comment on above: ITB Appointment Start: 06-30-2024 End: 06-30-2024 ambulatory DAYSI Swann MYA Facility:[facility] Start: 06-30-2024 End: 06-30-2024 Patient encounter procedure Daysi Swann Mya ROJAS Work Phone: [facility] Comment on above: Spasm of muscle (Judith marlyn Dx); Presence of intrathecal baclofen pump Start: 06-26-2024 End: 06-26-2024 ambulatory DAYSI Swann MYA Facility:[facility] Start: 06-26-2024 End: 06-26-2024 Patient encounter procedure Daysi Swann Mya ROJAS Work Phone: [facility] Comment on above: Spasm of muscle (Judith marlyn Dx); Presence of intrathecal baclofen pump Start: 06-25-2024 End: 06-25-2024 Telephone encounter Ceferino Jones PA-C Work Phone: [facility] Start: 06-23-2024 End: 06-23-2024 ambulatory DAYSI L MYA Facility:[facility] Start: 06-23-2024 End: 06-23-2024 Patient encounter procedure Daysi Swann Mya ROJAS Work Phone: [facility] Comment on above: Spasm of muscle (Judith marlyn Dx); Presence of intrathecal baclofen pump Start: 06-20-2024 End: 06-20-2024 ambulatory JIMENA KRAMER Facility:[facility] Start: 06-20-2024 End: 06-20-2024 Patient encounter procedure Jimena Kramer PA-C Work Phone: [facility] Comment on above: Muscle spasticity (P rimary Dx); Spinal cord injury at T7-T12 level ([facility]) Start: 06-17-2024 End: 06-20-2024 Telephone encounter Jamey Shelby MD Work Phone: [facility] Comment on above: ITB ADJUSTMENT Refill Request Start: 06-16-2024 End: 06-16-2024 ambulatory CEFERINO JONES Facility:[facility] Start: 05-26-2024 End: 05-26-2024 Telephone encounter Ceferino Jones PA-C Work Phone: [facility] Start: 05-26-2024 End: 05-26-2024 ambulatory DAYSI ROQUE Facility:[facility] Start: 05-26-2024 End: 05-26-2024 Patient encounter procedure Daysi Hue Roque PA-C Work Phone: Rehab Medicine [facility] Comment on above: Presence of intrathe hai baclofen pump (Primary Dx); Spasm of muscle Start: 05-13-2024 End: 05-13-2024 Subsequent hospital visit by physician [facility] [place] Work Phone: Radiology Comment on above: Mild intermittent as thma with acute exacerbation [J45.21] Start: 05-13-2024 End: 05-13-2024 Office outpatient visit 25 minutes Anay Roque MD Work Phone: Internal [facility] [place] Comment on above: Mild intermittent as thma with acute exacerbation (Primary Dx); Urinary tract infection without hematuria, site unspecified Start: 05-13-2024 End: 05-13-2024 ambulatory [facility] Facility:[facility] Start: 05-11-2024 End: 05-11-2024 Emergency department patient visit Yan Amaya Facility:[facility] Start: 04-14-2024 End: 04-14-2024 ambulatory JU GUSTAFSON Facility:[facility] Start: 04-14-2024 End: 04-14-2024 Patient encounter procedure Ju Gustafson DO Work Phone: [facility] Comment on above: Lateral epicondyliti s of left elbow (Primary Dx); Bilateral shoulder bursitis Start: 03-28-2024 End: 03-28-2024 ambulatory [facility] Facility:[facility] Start: 03-28-2024 End: 03-28-2024 Office outpatient visit 25 minutes Anay Roque MD Work Phone: Internal Medicine [place] Comment on above: Factor 5 Leiden muta tion, heterozygous (HCC) (Primary Dx); Nicotine use disorder, F17.2; Encounter for monitoring chronic NSAID therapy; Self-catheterizes urinary bladder; Spinal cord injury, T7-T12 (HCC); Secondary male hypogonadism; Vitamin D deficiency; Class 1 obesity with serious comorbidity and body mass index (BMI) of 33.0 to 33.9 in adult, unspecified obesity type Start: 03-27-2024 End: 03-27-2024 ambulatory DAYSI ROQUE Facility:[facility] Start: 03-27-2024 End: 03-27-2024 Patient encounter procedure Daysi Roque PA-C Work Phone: Rehab Medicine [facility] Comment on above: Spasticity (Primary Dx); T7-T12 level spinal cord injury (HCC) Start: 03-03-2024 End: 03-03-2024 ambulatory RUSLAN SHERWOOD Facility:[facility] Start: 03-03-2024 End: 03-03-2024 Patient encounter procedure Ruslan Sherwood MD Work Phone: [facility] Comment on above: Spasm of muscle (Judith marlyn Dx); Spinal cord injury at T7-T12 level (HCC); Paraplegia (HCC) Start: 02-06-2024 End: 02-06-2024 Refill Soila Velazquez APRN.CNP Work Phone: Internal Medicine [place] Comment on above: Refill Request Start: 02-05-2024 End: 02-05-2024 ambulatory JIMENA KRAMER Facility:[facility] Start: 02-05-2024 End: 02-05-2024 Patient encounter procedure Jimena Kramer PA-C Work Phone: [facility] Comment on above: Post-traumatic stres s disorder, acute (Primary Dx) Start: 02-04-2024 End: 02-04-2024 Office outpatient visit 25 minutes Anay Roque MD Work Phone: Internal [facility] [place] Comment on above: Septic shock (HCC) ( Primary Dx); Cellulitis of left upper extremity; Urinary tract infection without hematuria, site unspecified; Onychomycosis; Spinal cord injury, T7-T12 (HCC); Paraplegia (HCC); Spasticity Start: 02-04-2024 End: 02-04-2024 [facility] Facility:[facility] Start: 02-04-2024 End: 02-29-2024 Telephone encounter Daysi Roque PA-C Work Phone: [facility] Start: 02-01-2024 Telephone encounter Daysi Roque PA-C Work Phone: [facility] Start: 01-31-2024 End: 01-31-2024 ambulatory [facility] Facility:[facility] Start: 01-16-2024 Refill Anay Amado Work Phone: [facility] [place] Comment on above: Refill Request Insurance Authorizat ion Start: 01-14-2024 End: 01-14-2024 ambulatory DAYSI ROQUE Facility:[facility] Start: 01-14-2024 End: 01-14-2024 Patient encounter procedure Daysi Roque PA-C Work Phone: [facility] Comment on above: Muscle spasticity (P rimary Dx); Paraplegia (HCC) Start: 01-10-2024 Telephone encounter Daysi Roque PA-C Work Phone: [facility] Comment on above: ITB Refill Start: 01-09-2024 End: 01-09-2024 [facility] Facility:[facility] Start: 01-09-2024 End: 01-09-2024 Office outpatient visit 15 minutes Anay Roque MD Work Phone: [facility] [place] Comment on above: Vitamin D deficiency (Primary Dx); Encounter for immunization; Vitamin B12 deficiency; Hyperlipidemia, mixed; Prediabetes; Iron deficiency; Spinal cord injury, T7-T12 (HCC); Morbid obesity (HCC); Factor 5 Leiden mutation, heterozygous ([facility]); Annual physical exam Start: 01-09-2024 End: 01-09-2024 Patient encounter procedure Anay Roque MD Work Phone: [facility] Start: 01-02-2024 ambulatory [facility] [place] [facility] Start: 01-02-2024 End: 01-03-2024 Evaluation and management of inpatient [place] Facility:[facility] Start: 11-23-2023 End: 11-23-2023 ambulatory Luda Armas MD Work Phone: Urology Comment on above: 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); Erectile dysfunction, unspecified erectile dysfunction type; Hypogonadism in male Start: 11-23-2023 End: 11-23-2023 Telemedicine consultation with patient Luda Armas MD Work Phone: Urology Start: 10-25-2023 End: 10-25-2023 Patient encounter procedure Daysi Roque PA-C Work Phone: Rehab Medicine [facility] Comment on above: Muscle spasticity (P rimary Dx); T7-T12 level spinal cord injury (HCC) Start: 10-22-2023 End: 10-22-2023 Patient encounter procedure Ruslan Sherwood MD Work Phone: [facility] Comment on above: Spasm of muscle (Judith marlyn Dx); Spinal cord injury at T7-T12 level (HCC); Paraplegia (HCC) Start: 09-19-2023 End: 09-19-2023 ambulatory Tiffany Romero PA-C Work Phone: Gastroenterology Comment on above: Drug-induced constip ation (Primary Dx) Start: 09-19-2023 End: 09-19-2023 Telemedicine consultation with patient Tiffany Romero PA-C Work Phone: [facility] Start: 08-09-2023 End: 08-09-2023 Office outpatient visit 15 minutes Merry Montenegro DO Work Phone: Urgent Care [facility] Comment on above: Cellulitis of skin ( Primary Dx) Start: 08-09-2023 End: 08-09-2023 Patient encounter procedure Daysi Roque PA-C Work Phone: Rehab Medicine [facility] Comment on above: Spinal cord injury a t T7-T12 level (HCC) (Primary Dx); Spasm of muscle; Paraplegia (HCC) Start: 08-02-2023 Telephone encounter Margy Rodriguez Varsha HILLTELEVISION DIRECTOR Work Phone: [facility] Comment on above: Results Start: 08-01-2023 End: 08-01-2023 ambulatory Fabrice Yanciaro PA-C Work Phone: Telemedicine Comment on above: Neck pain (Primary D x) Start: 08-01-2023 End: 08-01-2023 Telemedicine consultation with patient Fabrice Bordonaro PA-C Work Phone: [facility] Start: 07-31-2023 End: 07-31-2023 Patient encounter procedure Sarah Tang APRN.TELEVISION DIRECTOR Work Phone: [facility] Comment on above: Urinary frequency (P rimary Dx) Start: 05-28-2023 End: 05-28-2023 Patient encounter procedure Jimena Kramer PA-C Work Phone: [facility] Comment on above: Spasticity (Primary Dx); Spasm of muscle; T7-T12 level spinal cord injury (HCC) Start: 05-25-2023 End: 05-25-2023 Patient encounter procedure Luad Armas MD Work Phone: Urology Comment on above: 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); Erectile dysfunction, unspecified erectile dysfunction type; Hypogonadism in male Start: 05-21-2023 End: 05-21-2023 Patient encounter procedure Loren Dumont PA-C Work Phone: [facility] Comment on above: Recurrent UTI (Prima ry Dx); Hordeolum externum of left upper eyelid Start: 05-05-2023 Refill Luda Armas MD Work Phone: [facility] Comment on above: Refill Request Start: 04-20-2023 End: 04-20-2023 Patient encounter procedure Ju Gustafson DO Work Phone: [facility] Comment on above: Lateral epicondyliti s of left elbow (Primary Dx) Start: 04-16-2023 Telephone encounter Yusef Parsons MD Work Phone: [facility] Comment on above: Results (Urine Cx) Results Start: 04-14-2023 End: 04-14-2023 Subsequent hospital visit by physician [facility] [place] Work Phone: Radiology Comment on above: Fever, unspecified f ever cause [R50.9] Start: 04-14-2023 End: 04-14-2023 Patient encounter procedure Juliette Connors IMPORT DISPATCHER.TELEVISION DIRECTOR Work Phone: [facility] Comment on above: Fever, unspecified f ever cause (Primary Dx) Start: 03-06-2023 REFILL - MYCHART Mckenna garcia IMPORT DISPATCHER.TELEVISION DIRECTOR Work Phone: Medical Records Comment on above: Medication Refill De nied Start: 03-05-2023 End: 03-05-2023 Patient encounter procedure Carlie Gustafson IMPORT DISPATCHER.TELEVISION DIRECTOR Work Phone: [facility] Comment on above: Painful urination (P rimary Dx) Start: 01-16-2023 End: 01-16-2023 Patient encounter procedure Jamey Shelby MD Work Phone: [facility] Comment on above: Spinal cord injury a t T7-T12 level (HCC) (Primary Dx); Paraplegia (HCC); Muscle spasticity Start: 01-15-2023 ambulatory Daysi castro PA-C Work Phone: [facility] Comment on above: Handicapped placard prescription Start: 01-08-2023 End: 01-08-2023 Patient encounter procedure Ruslan Sherwood MD Work Phone: [facility] Comment on above: Spasticity (Primary Dx); Paraplegia (HCC); Spinal cord injury at T7-T12 level (HCC) Start: 12-12-2022 Telephone encounter Anay jacobs MD Work Phone: [facility] Comment on above: Insurance Authorizat ion ([employer] ) Start: 12-11-2022 End: 12-11-2022 Patient encounter procedure Ju Gustafson DO Work Phone: Orthopedics Comment on above: Lateral epicondyliti s of left elbow (Primary Dx) Start: 12-11-2022 Refill Soila VenegasTELEVISION DIRECTOR Work Phone: [employer] [facility] Comment on above: Refill Request Start: 12-07-2022 End: 12-07-2022 ambulatory Cuong Monroy PT Work Phone: [facility] Comment on above: Impaired functional mobility, balance, gait, and endurance (Primary Dx); Impaired motor control; Spinal cord injury, T7-T12 (HCC); Paraplegia (HCC); Spasticity; Weakness; Gait abnormality Start: 11-16-2022 End: 11-16-2022 ambulatory Conraddara Dodd PT Work Phone: [facility] Comment on above: Impaired functional mobility, balance, gait, and endurance (Primary Dx); Impaired motor control; Spinal cord injury, T7-T12 (HCC); Paraplegia (HCC); Gait abnormality Start: 11-15-2022 End: 11-15-2022 Patient encounter procedure Daysi Roque PA-C Work Phone: [facility] Comment on above: Spasticity (Primary Dx) Start: 10-17-2022 End: 10-17-2022 ambulatory Conrad Narducci PT Work Phone: [facility] Comment on above: Spinal cord injury, T7-T12 (HCC) (Primary Dx); Paraplegia (HCC); Impaired functional mobility, balance, gait, and endurance; Gait abnormality Start: 10-02-2022 End: 10-02-2022 Patient encounter procedure Ruslan Sherwood MD Work Phone: [facility] Comment on above: Spasticity (Primary Dx); Paraplegia (HCC); Spinal cord injury at T7-T12 level (HCC) Start: 09-07-2022 End: 09-07-2022 ambulatory Conrad Keonducci PT Work Phone: [facility] Comment on above: Spinal cord injury, T7-T12 (HCC) (Primary Dx); Paraplegia (HCC); Impaired functional mobility, balance, gait, and endurance; Gait abnormality Start: 08-25-2022 End: 08-25-2022 ambulatory Conrad Narducci PT Work Phone: [facility] Comment on above: Spinal cord injury, T7-T12 (HCC) (Primary Dx); Paraplegia (HCC); Impaired functional mobility, balance, gait, and endurance; Gait abnormality Start: 08-09-2022 End: 08-09-2022 ambulatory Conrad Narducci PT Work Phone: [facility] Comment on above: Spinal cord injury, T7-T12 (HCC) (Primary Dx); Paraplegia (HCC); Impaired functional mobility, balance, gait, and endurance; Gait abnormality Start: 07-27-2022 End: 07-27-2022 ambulatory Conrad Narducci PT Work Phone: [facility] Comment on above: Spinal cord injury, T7-T12 (HCC) (Primary Dx); Paraplegia (HCC); Impaired functional mobility, balance, gait, and endurance; Gait abnormality Start: 07-20-2022 End: 07-20-2022 ambulatory Conrad Keonducci PT Work Phone: [facility] Comment on above: Spinal cord injury, T7-T12 (HCC) (Primary Dx); Paraplegia (HCC); Impaired functional mobility, balance, gait, and endurance; Gait abnormality Start: 07-19-2022 End: 07-19-2022 Patient encounter procedure Ceferino Regalado MD Work Phone: Urology Comment on above: Epididymitis (Primar y Dx) Start: 07-13-2022 End: 07-13-2022 ambulatory Conrad Narducci PT Work Phone: [facility] Comment on above: Spinal cord injury, T7-T12 (HCC) (Primary Dx); Paraplegia (HCC); Impaired functional mobility, balance, gait, and endurance; Gait abnormality Start: 07-10-2022 End: 07-10-2022 Patient encounter procedure Ruslan Sherwood MD Work Phone: [facility] Comment on above: Spasticity (Primary Dx); Paraplegia (HCC); Spinal cord injury at T7-T12 level (HCC) Start: 07-06-2022 End: 07-06-2022 ambulatory Infusion Main Chair 2 Work Phone: Neurology Comment on above: Spinal cord injury, T7-T12 (HCC) (Primary Dx) Start: 07-05-2022 End: 07-05-2022 ambulatory Infusion Main Chair 2 Work Phone: Neurology Comment on above: Spinal cord injury, T7-T12 (HCC) (Primary Dx) Start: 07-04-2022 End: 07-04-2022 ambulatory Infusion Main Chair 2 Work Phone: Neurology Comment on above: Spinal cord injury, T7-T12 (HCC) (Primary Dx) Start: 07-03-2022 End: 07-03-2022 ambulatory Infusion Main Chair 2 Work Phone: Neurology Comment on above: Spinal cord injury, T7-T12 (HCC) (Primary Dx) Start: 06-28-2022 End: 06-28-2022 ambulatory Conrad Ju PT Work Phone: [facility] Comment on above: Spinal cord injury, T7-T12 (HCC) (Primary Dx); Paraplegia (HCC); Impaired functional mobility, balance, gait, and endurance; Gait abnormality Start: 06-22-2022 ambulatory Neetu Mayberry RN Neur ology Comment on above: Ketamine Infusion Start: 06-22-2022 E-mail encounter fro m caregiver Neetu Mayberry RN [facility] Start: 06-16-2022 End: 06-16-2022 Patient encounter procedure Amarilys Mak APRN.TELEVISION DIRECTOR Work Phone: [facility] Comment on above: Spasticity (Primary Dx); Paraplegia (HCC); Spinal cord injury at T7-T12 level (HCC) Start: 06-14-2022 ambulatory ANAY ROQUE Facility:[facility] Start: 06-14-2022 End: 06-14-2022 Subsequent hospital visit by physician Us Megan Saini 2 Work Phone: Radiology Comment on above: Testicle swelling [N 50.89] Start: 06-14-2022 End: 06-14-2022 Patient encounter procedure Carlie Gustafson APRN.TELEVISION DIRECTOR Work Phone: [facility] Comment on above: Epididymitis, left ( Primary Dx); Testicle swelling; Cloudy urine Start: 06-08-2022 End: 06-08-2022 ambulatory Conrad Melendezci PT Work Phone: [facility] Comment on above: Spinal cord injury, T7-T12 (HCC) (Primary Dx); Paraplegia (HCC); Impaired functional mobility, balance, gait, and endurance; Gait abnormality Start: 05-08-2022 Telephone encounter Anay jacobs MD Work Phone: Neurology Comment on above: Patient Request (Ket amine/) Start: 04-27-2022 End: 04-27-2022 ambulatory Conrad Keonducci PT Work Phone: [facility] Comment on above: Spinal cord injury, T7-T12 (HCC) (Primary Dx); Paraplegia (HCC); Impaired functional mobility, balance, gait, and endurance Start: 04-13-2022 End: 04-13-2022 ambulatory Conrad Keonducci PT Work Phone: [facility] Comment on above: Spinal cord injury, T7-T12 (HCC) (Primary Dx); Paraplegia (HCC); Impaired functional mobility, balance, gait, and endurance; Gait abnormality Start: 04-07-2022 End: 04-07-2022 ambulatory Conrad Narducci PT Work Phone: [facility] Comment on above: Spinal cord injury, T7-T12 (HCC) (Primary Dx); Paraplegia (HCC); Impaired functional mobility, balance, gait, and endurance Start: 04-06-2022 End: 04-06-2022 ambulatory Soila Velazquez APRN.TELEVISION DIRECTOR Work Phone: Internal Medicine [place] Comment on above: Itching (Primary Dx) Start: 04-06-2022 End: 04-06-2022 Telemedicine consultation with patient Soila Velazquez APRN.TELEVISION DIRECTOR Work Phone: [facility] Start: 04-04-2022 End: 04-04-2022 Patient encounter procedure Amarilys Mak APRN.TELEVISION DIRECTOR Work Phone: [facility] Comment on above: Spasm of muscle (Judith marlyn Dx); Paraplegia (HCC); Spinal cord injury at T7-T12 level (HCC) Start: 03-27-2022 End: 03-27-2022 Patient encounter procedure Ruslan Sherwood MD Work Phone: [facility] Comment on above: Spasm of muscle (Judith marlyn Dx); Spinal cord injury at T7-T12 level (HCC); Paraplegia (HCC) Lateral epicondyliti s of left elbow (Primary Dx) Start: 03-23-2022 End: 03-23-2022 ambulatory Conrad Dodd PT Work Phone: [facility] Comment on above: Spinal cord injury, T7-T12 (HCC) (Primary Dx); Paraplegia (HCC); Impaired functional mobility, balance, gait, and endurance; Gait abnormality Start: 03-08-2022 Telephone encounter Anay jacobs MD Work Phone: Internal Medicine [place] Comment on above: Orders Start: 03-02-2022 End: 03-02-2022 ambulatory Eitan Tankha DO Work Phone: Pain Recovery Comment on above: Chronic pain syndrom e (Primary Dx) Start: 03-02-2022 End: 03-02-2022 Telemedicine consultation with patient Eitan Tankha DO Work Phone: [facility] Start: 02-17-2022 End: 02-17-2022 ambulatory Infusion Main Chair 3 Work Phone: Neurology Comment on above: Spinal cord injury, T7-T12 (HCC) (Primary Dx) Start: 02-16-2022 End: 02-16-2022 ambulatory Infusion Main Chair 3 Work Phone: Neurology Comment on above: Spinal cord injury, T7-T12 (HCC) (Primary Dx) Start: 02-15-2022 End: 02-15-2022 ambulatory Infusion Main Chair 3 Work Phone: Neurology Comment on above: Spinal cord injury, T7-T12 (HCC) (Primary Dx) Start: 02-14-2022 End: 02-14-2022 ambulatory Infusion Main Chair 3 Work Phone: Neurology Comment on above: Spinal cord injury, T7-T12 (HCC) (Primary Dx) Start: 02-10-2022 End: 02-10-2022 ambulatory ANAY ROQUE Facility:[facility] Start: 02-10-2022 End: 02-10-2022 Patient encounter procedure [facility] Work Phone: Plastic Surgery Comment on above: Lymphedema (Primary Dx); Swelling of lower extremity Start: 02-09-2022 End: 02-09-2022 ambulatory Conrad Dodd PT Work Phone: [facility] Comment on above: Spinal cord injury, T7-T12 (HCC) (Primary Dx); Gait abnormality; Paraplegia (HCC) Start: 02-05-2022 Refill Tony Trimble MD Work Phone: Hematology/Oncology Comment on above: Refill Request Start: 01-25-2022 End: 01-25-2022 Patient encounter procedure Anay Roque MD Work Phone: [facility] [place] Comment on above: Wound of right lower extremity, subsequent encounter (Primary Dx); Elevated blood sugar; Lipid screening; Hospital discharge follow-up; Secondary male hypogonadism; Factor 5 Leiden mutation, heterozygous (HCC) Start: 01-13-2022 ambulatory Karina Lantigua RN Work Phone: [facility] Start: 01-13-2022 Telephone encounter Annette Ramsey PT Work Phone: [facility] Comment on above: Patient Question Transition Of Care ( TCM Initial Hospital Discharge 01/12/2022) Start: 01-07-2022 End: 01-12-2022 Evaluation and management of inpatient ANAY ROQUE Facility:[facility] Start: 12-29-2021 End: 12-29-2021 ambulatory Annette Ramsey PT Work Phone: [facility] Comment on above: Gait abnormality (Pr imary Dx); Spinal cord injury, T7-T12 (HCC); Impaired functional mobility, balance, gait, and endurance; Paraplegia (HCC); Weakness; Impaired motor control Start: 12-27-2021 End: 12-27-2021 ambulatory Conrad Dodd PT Work Phone: [facility] Comment on above: Spinal cord injury, T7-T12 (HCC) (Primary Dx); Gait abnormality; Impaired functional mobility, balance, gait, and endurance; Weakness Spinal cord injury, T7-T12 (HCC) (Primary Dx) Start: 12-26-2021 End: 12-26-2021 Patient encounter procedure Ruslan Sherwood MD Work Phone: [facility] Comment on above: Spasticity (Primary Dx); Paraplegia (HCC); Spinal cord injury at T7-T12 level (HCC) Start: 12-22-2021 End: 12-22-2021 Telemedicine consultation with patient Eitan Hernandez DO Work Phone: [facility] Start: 12-22-2021 End: 12-22-2021 ambulatory Annette Huynhts PT Work Phone: [facility] Comment on above: Gait abnormality (Pr imary Dx); Spinal cord injury, T7-T12 (HCC); Weakness; Impaired functional mobility, balance, gait, and endurance Chronic pain syndrom e (Primary Dx) Start: 12-21-2021 Telephone encounter Radhika Harris MA Pain Recovery Comment on above: Appointment Start: 12-20-2021 End: 12-20-2021 ambulatory Annetteestrella Huynhts PT Work Phone: [facility] Comment on above: Paraplegia (HCC) (Pr imary Dx); Gait abnormality; Spinal cord injury, T7-T12 (HCC); Weakness; Impaired functional mobility, balance, gait, and endurance; Spasticity Start: 12-16-2021 End: 12-16-2021 Subsequent hospital visit by physician Us Coker A21 4 Work Phone: Radiology Comment on above: Lateral epicondyliti s of left elbow [M77.12] Start: 12-08-2021 End: 12-08-2021 ambulatory Annette Ramsey PT Work Phone: [facility] Comment on above: Gait abnormality (Pr imary Dx); Spinal cord injury, T7-T12 (HCC); Weakness; Impaired functional mobility, balance, gait, and endurance Start: 11-30-2021 End: 11-30-2021 Patient encounter procedure Shaq Salinas MD Work Phone: Neurological [facility] Comment on above: Spasticity (Primary Dx) Start: 11-30-2021 End: 11-30-2021 ambulatory Annette Ramsey PT Work Phone: [facility] Comment on above: Paraplegia (HCC) (Pr imary Dx); Gait abnormality; Spinal cord injury, T7-T12 (HCC); Weakness; Spasticity; Impaired functional mobility, balance, gait, and endurance Start: 11-24-2021 ambulatory PCP UNKNOWN Facility:[facility] Start: 11-24-2021 Office outpatient ne w 45 minutes Referring Provider Unknown [facility] [id number] Work Phone: Start: 11-24-2021 Patient encounter procedure Referring Provider Unknown [facility] B270 Work Phone: Start: 11-16-2021 Telephone encounter Ceferino odonnell PA-C Work Phone: Neurological [facility] Comment on above: Patient Update Start: 11-15-2021 End: 11-15-2021 Patient encounter procedure Amarilys Mak APRN.CNP Work Phone: [facility] Comment on above: Spasticity (Primary Dx); Paraplegia (HCC); Spinal cord injury at T7-T12 level (HCC); Abnormality of gait Start: 11-14-2021 End: 11-14-2021 Emergency department patient visit [facility] Start: 11-10-2021 End: 11-10-2021 ambulatory Conrad Noraci PT Work Phone: [facility] Comment on above: Gait abnormality (Pr imary Dx); Spinal cord injury, T7-T12 (HCC); Weakness; Paraplegia (HCC) Start: 11-08-2021 End: 11-08-2021 ambulatory Annette Ritts PT Work Phone: [facility] Comment on above: Paraplegia (HCC) (Pr imary Dx); Gait abnormality; Spinal cord injury, T7-T12 (HCC); Weakness Start: 11-03-2021 End: 11-03-2021 ambulatory Conrad Keonducci PT Work Phone: [facility] Comment on above: Spinal cord injury, T7-T12 (HCC) (Primary Dx); Gait abnormality; Weakness; Paraplegia (HCC) Start: 11-01-2021 End: 11-01-2021 ambulatory Annette Ritts PT Work Phone: [facility] Comment on above: Gait abnormality (Pr imary Dx); Spinal cord injury, T7-T12 (HCC); Weakness; Paraplegia (HCC); Impaired functional mobility, balance, gait, and endurance; Spasticity Start: 10-28-2021 Telephone encounter Anay jacobs MD Work Phone: Internal Medicine [place] Comment on above: Forms Start: 10-25-2021 Telephone encounter Joleen Felix ( Coord) Radiology Comment on above: Appointment Start: 10-25-2021 End: 10-25-2021 ambulatory Conrad Narducci PT Work Phone: [facility] Comment on above: Spinal cord injury, T7-T12 (HCC) (Primary Dx); Gait abnormality; Weakness; Paraplegia (HCC) Start: 10-20-2021 End: 10-20-2021 ambulatory Annette Ritts PT Work Phone: [facility] Comment on above: Gait abnormality (Pr imary Dx); Spinal cord injury, T7-T12 (HCC); Weakness; Paraplegia (HCC) Start: 10-18-2021 End: 10-18-2021 ambulatory Conrad Dodd PT Work Phone: [facility] Comment on above: Paraplegia (HCC) (Pr imary Dx); Gait abnormality; Spinal cord injury, T7-T12 (HCC); Weakness Start: 10-17-2021 End: 10-17-2021 ambulatory Azul Logan APRN.TELEVISION DIRECTOR Work Phone: Telemedicine Comment on above: Procedure, test, or exam not indicated (Primary Dx) Start: 10-17-2021 End: 10-17-2021 Telemedicine consultation with patient Azul Logan APRN.TELEVISION DIRECTOR Work Phone: [facility] Start: 10-04-2021 End: 10-04-2021 ambulatory Annette Ramsey PT Work Phone: [facility] Comment on above: Paraplegia (HCC) (Pr imary Dx); Gait abnormality; Spinal cord injury, T7-T12 (HCC); Impaired functional mobility, balance, gait, and endurance; Spasticity; Impaired motor control Start: 09-24-2021 Refill Ceferino mckeon MD Work Phone: Urology Comment on above: Refill Request Start: 09-24-2021 End: 09-24-2021 Patient encounter procedure Sarah Tang APRN.TELEVISION DIRECTOR Work Phone: [facility] Comment on above: Urination frequency (Primary Dx); Cough Start: 09-19-2021 End: 09-19-2021 Patient encounter procedure Ju Gustafson DO Work Phone: Orthopedics Comment on above: Lateral epicondyliti s of left elbow (Primary Dx); Chronic pain of both shoulders Start: 09-15-2021 End: 09-15-2021 ambulatory Conrad Dodd PT Work Phone: [facility] Comment on above: Paraplegia (HCC) (Pr imary Dx); Impaired functional mobility, balance, gait, and endurance; Gait abnormality; Spinal cord injury, T7-T12 (HCC); Spasticity; Impaired motor control Start: 09-05-2021 End: 09-05-2021 Subsequent hospital visit by physician Jason [facility] Work Phone: Radiology Comment on above: Cough [R05.9] Start: 07-19-2018 Patient encounter procedure [facility] Start: 10-08-2017 Ambulatory DAYSI Swann (PASQUALE ) [facility] Start: 10-01-2017 Patient encounter procedure [facility] Procedures Date Procedure Procedure Detail Performing Clinician Start: 11-13-2024 Urnls dip stick/tabl et rgnt auto w/o microscopy Carlie Gustafson IMPORT DISPATCHER.TELEVISION DIRECTOR Work Phone: Start: 10-09-2024 Plain chest X-ray Dr. Vijay Roque MD Work Phone: Start: 10-09-2024 SARS-CoV-2, Influenz a & RSV (PCR) Dr. Anay Roque MD Work Phone: Start: 09-03-2024 Radex shoulder compl ete minimum 2 views Daysi Roque PA-C Work Phone: Start: 07-09-2024 Antibody screen [facility] Comment on above: Order Comment: Speci men Type: BLOOD SPECIMENOrdering Facility: [facility] Address: [address] [place] [address] Result Comment: Devan ected result: Previously reported as Invalid on 07/10/2024 at 11:31 AM EST. Performed By: #### T [id number] ####CC MAIN BLOOD BANKCLIA [id number] [place] [address] [place] Start: 05-13-2024 Radiologic exam ches t 2 views Anay Roque MD Work Phone: Start: 04-14-2024 Injection single ten don origin/insertion Ju Gustafson DO Work Phone: Start: 04-14-2024 Us guidance needle p lacement img s&i Ju Gustafson DO Work Phone: Start: 04-14-2024 Arthrocentesis aspir &/inj major jt/bursa w/us Junimesh Gustafson DO Work Phone: Start: 01-31-2024 Lipid 1996 panel - S ivan or Plasma Daysi Roque PA-C Work Phone: Start: 07-31-2023 Urnls dip stick/tabl et rgnt auto w/o microscopy Margy Styles IMPORT DISPATCHER.TELEVISION DIRECTOR Work Phone: Start: 05-21-2023 Urnls dip stick/tabl et rgnt auto w/o microscopy Loren Dumont PA-C Work Phone: Start: 04-20-2023 Us guidance needle p lacement img s&i Ju Gustafson DO Work Phone: Start: 04-20-2023 Arthrocentesis aspir &/inj interm jt/burs w/us Junimesh Gustafson DO Work Phone: Start: 04-14-2023 COVID & INFLUENZA A/ B & RSV NAAT, ROUTINE Juliette Connors IMPORT DISPATCHER.TELEVISION DIRECTOR Work Phone: Start: 04-14-2023 Iadna respiratry pro be & rev trnscr 3-5 targets Juliette Connors IMPORT DISPATCHER.TELEVISION DIRECTOR Work Phone: Start: 04-14-2023 Sars-cov-2 detection by dna/rna Juliette Connors IMPORT DISPATCHER.TELEVISION DIRECTOR Work Phone: Start: 04-14-2023 Radiologic exam ches t 2 views Juliette Connors IMPORT DISPATCHER.TELEVISION DIRECTOR Work Phone: Start: 04-14-2023 INFLUENZA A&B MOLECU LAR (POC) [facility] Provider Start: 04-14-2023 Culture bacterial quanttative colony count urine Juliette Connors IMPORT DISPATCHER.TELEVISION DIRECTOR Work Phone: Start: 04-14-2023 Urnls dip stick/tabl et rgnt auto w/o microscopy Juliette Connors IMPORT DISPATCHER.TELEVISION DIRECTOR Work Phone: Start: 03-05-2023 Urnls dip stick/tabl et rgnt auto w/o microscopy [facility] Provider Start: 01-08-2023 US LOWER EXTREMITY R IGHT (POC) FOR RHM USE ONLY Ruslan Sherwood MD Work Phone: Start: 12-11-2022 Arthrocentesis aspir &/inj interm jt/burs w/us Ju Eunice Gustafson DO Work Phone: Start: 12-11-2022 Injection single ten don origin/insertion Ju Gustafson DO Work Phone: Start: 12-11-2022 Us guidance needle p lacement img s&i Ju Eunice Sj DO Work Phone: Start: 10-02-2022 US LOWER EXTREMITY R IGHT (POC) FOR RHM USE ONLY Ruslan Sherwood MD Work Phone: Start: 07-19-2022 Urnls dip stick/tabl et rgnt auto w/o microscopy Ceferino Regalado MD Work Phone: Start: 07-10-2022 US LOWER EXTREMITY R IGHT (POC) FOR RHM USE ONLY Ruslan Sherwood MD Work Phone: Start: 06-14-2022 Dup-scan artl ramila abdl/pel/scrot&/rpr orgn com Carlie Gustafson APRN.TELEVISION DIRECTOR Work Phone: Start: 06-14-2022 Us scrotum & contents J jama Gustafson APRN.TELEVISION DIRECTOR Work Phone: Start: 06-14-2022 Culture bacterial quanttative colony count urine Carlie Gustafson APRN.TELEVISION DIRECTOR Work Phone: Start: 06-14-2022 Urnls dip stick/tabl et rgnt auto w/o microscopy Carlie Gustafson APRN.TELEVISION DIRECTOR Work Phone: Start: 03-27-2022 Arthrocentesis aspir &/inj interm jt/burs w/us Ju Gustafson DO Work Phone: Start: 03-27-2022 Injection single ten don origin/insertion Ju Gustafson DO Work Phone: Start: 03-27-2022 Us guidance needle p lacement img s&i Ju Gustafson DO Work Phone: Start: 03-02-2022 Adult depression scr eening assessment Eitan Hernandez DO Work Phone: Start: 02-13-2022 Adult depression scr eening assessment Infusion 3 Work Phone: Start: 12-27-2021 Adult depression scr eening assessment Conrad Dodd PT Work Phone: Start: 12-16-2021 Us lmtd joint/oth no nvasc xtr strux r-t w/img Ju Gustafson DO Work Phone: Start: 12-16-2021 End: 12-16-2021 US SHOULDER LT Ju Gustafson DO Work Phone: Start: 11-30-2021 Adult depression scr eening assessment Shaq Salinas MD Work Phone: Start: 09-24-2021 Urnls dip stick/tabl et rgnt auto w/o microscopy Tez Ibarra APRN.TELEVISION DIRECTOR Work Phone: Start: 09-19-2021 Arthrocentesis aspir &/inj interm jt/burs w/us Ju Gustafson DO Work Phone: Start: 09-19-2021 Injection single ten don origin/insertion Ju Gustafson DO Work Phone: Start: 09-19-2021 Us guidance needle p lacement img s&i Ju Gustafson DO Work Phone: Start: 09-05-2021 Radiologic exam ches t 2 views Sarah Tang APRN.TELEVISION DIRECTOR Work Phone: Start: 07-30-2017 Adult depression scr eening assessment Conrad Dodd PT Work Phone: Start: 10-07-2015 Lipid 1996 panel - S ivan or Plasma Carlie Gustafson APRN.CNP Work Phone: Plan of Treatment Date Care Activity Detail Author Start: 01-13-2030 Urine microalbumin profile DTaP,Tdap,Td Vaccine (3 - Td or Tdap) [facility] Start: 01-30-2029 Lipid panel Lipid Screening [facility] Start: 06-18-2026 Urine microalbumin profile [facility] Start: 09-30-2025 Annual PCP Team Social Media Director matt Disease Visit Annual PCP Team Chronic Disease Visit [facility] Start: 09-19-2025 End: 09-19-2025 Hematocrit [Volume Fraction] of Blood HEMATOCRIT Lab Routine Hypogonadism in male Impotence of organic origin Expected: 09/19/2025 (Approximate), Expires: 09/19/2025 [facility] Comment on above: Expected: 09/19/2025 (Approximate), Expires: 09/19/2025 Start: 09-19-2025 End: 09-19-2025 Prostate specific Ag [Mass/volume] in Serum or Plasma PROSTATE-SPECIFIC ANTIGEN DIAGNOSTIC Lab Routine Hypogonadism in male Impotence of organic origin Expected: 09/19/2025 (Approximate), Expires: 09/19/2025 [facility] Comment on above: Expected: 09/19/2025 (Approximate), Expires: 09/19/2025 Start: 09-19-2025 End: 09-19-2025 Testosterone [Mass/volume] in Serum or Plasma TESTOSTERONE, TOTAL BY IMMUNOASSAY (ADULT MALES, OR INDIVIDUALS ON TESTOSTERONE THERAPY) Lab Routine Hypogonadism in male Impotence of organic origin Expected: 09/19/2025, Expires: 09/19/2025 [facility] Work Phone: Comment on above: Expected: 09/19/2025 , Expires: 09/19/2025 Start: 05-13-2025 Annual PCP Team Social Media Director matt Disease Visit Annual PCP Team Chronic Disease Visit [facility] Start: 03-28-2025 Annual PCP Team Social Media Director matt Disease Visit Annual PCP Team Chronic Disease Visit [facility] Start: 03-27-2025 End: 03-27-2025 Follow-up encounter 03/27/2025 2:30 PM EDT [facility] [address] [place] [address] Luda Armas MD [address] [place] [address] 6 mo follow up Urology Comment on above: 6 mo follow up Start: 02-16-2025 Influenza vaccination Influenz a Vaccine (Season Ended) [facility] Start: 02-14-2025 End: 05-16-2025 Hepatic function 2000 panel - Serum or Plasma HEPATIC FUNCTION PNL Lab Routine Onychomycosis Expected: 02/14/2025, Expires: 05/16/2025 [facility] Comment on above: Expected: 02/14/2025 , Expires: 05/16/2025 Start: 02-03-2025 Annual PCP Team Social Media Director matt Disease Visit Annual PCP Team Chronic Disease Visit [facility] Start: 01-15-2025 End: 01-15-2025 ambulatory 01/15/2025 7:00 AM EDT OT/PT/Speech Visit [facility] [address] [place] [address] Cuong Monroy, PT [address] [place], [place] [phone] T4 spinal cord injury, 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] [facility] Comment on above: T4 spinal cord injur y, 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] Start: 01-12-2025 End: 01-12-2025 ambulatory 01/12/2025 7:00 AM EDT OT/PT[facility]ech [facility] [address] [place] [address] Cuong Monroy, PT [address] [place], [place] [phone] T4 spinal cord injury, 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] [facility] Comment on above: T4 spinal cord injur y, 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] Start: 01-08-2025 Annual PCP Team Social Media Director matt Disease Visit Annual PCP Team Chronic Disease Visit [facility] Start: 01-08-2025 End: 01-08-2025 ambulatory 01/08/2025 7:45 AM EDT OT/PT/Speech Visit [facility] [address] [place] [address] Conrad Dodd, PT [address] [facility] [place] [address] T4 spinal cord injury, 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] [facility] Comment on above: T4 spinal cord injur y, 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] Start: 01-05-2025 End: 01-05-2025 ambulatory 01/05/2025 7:00 AM EDT OT[facility]PT[facility]Speech [facility] [address] [place] [address] Cuong Monroy, PT [address] [place], [place] [phone] T4 spinal cord injury, 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] [facility] Comment on above: T4 spinal cord injur y, 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] Start: 01-01-2025 End: 01-01-2025 ambulatory 01/01/2025 7:00 AM EDT [facility] [address] [place] [address] Cuong Monroy, PT [address] [place], [place] [phone] T4 spinal cord injury, 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] [facility] Comment on above: T4 spinal cord injur y, 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] Start: 12-30-2024 End: 12-30-2024 Patient encounter procedure 12/30/2024 9:00 AM EDT Office Visit [facility] [address] [place] [address] Anay Roque MD [address] [place] [address] 3 month follow up [facility] Comment on above: 3 month follow up Start: 12-29-2024 End: 12-29-2024 ambulatory 12/29/2024 7:00 AM EDT OT/PT/Speech [facility] [address] [place] [address] ElianaCuong chávez, PT [address] [place] [address] T4 spinal cord injury, 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] [facility] Comment on above: T4 spinal cord injur y, 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] Start: 12-25-2024 End: 12-25-2024 ambulatory 12/25/2024 7:00 AM EDT OT/PT/Speech Visit [facility] [address] [place] [address] Cuong Monryo, PT [address] [place], [place] [phone]- T4 spinal cord injury, 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] [facility] Comment on above: T4 spinal cord injur y, 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] Start: 12-22-2024 End: 12-22-2024 ambulatory 12/22/2024 7:00 AM EDT OT/PT/Speech [facility] [address] [place] [address] Cuong Monroy, PT [address] [place], [place] [phone]- T4 spinal cord injury, 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] [facility] Comment on above: T4 spinal cord injur y, 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] Start: 12-19-2024 End: 09-19-2025 Hematocrit [Volume Fraction] of Blood HEMATOCRIT Lab Routine Hypogonadism in male Impotence of organic origin Expected: 12/19/2024, Expires: 09/19/2025 [facility] Comment on above: Expected: 12/19/2024 , Expires: 09/19/2025 Start: 12-19-2024 End: 09-19-2025 Prostate specific Ag [Mass/volume] in Serum or Plasma PROSTATE-SPECIFIC ANTIGEN DIAGNOSTIC Lab Routine Hypogonadism in male Impotence of organic origin Expected: 12/19/2024, Expires: 09/19/2025 [facility] Comment on above: Expected: 12/19/2024 , Expires: 09/19/2025 Start: 12-19-2024 End: 09-19-2025 Testosterone [Mass/volume] in Serum or Plasma TESTOSTERONE, TOTAL BY IMMUNOASSAY (ADULT MALES, OR INDIVIDUALS ON TESTOSTERONE THERAPY) Lab Routine Hypogonadism in male Impotence of organic origin Expected: 12/19/2024, Expires: 09/19/2025 [facility] Comment on above: Expected: 12/19/2024 , Expires: 09/19/2025 Start: 12-18-2024 End: 12-18-2024 ambulatory 12/18/2024 7:45 AM EDT OT/PT/Speech Visit [facility] [address] [facility] [place] [address] Conrad Dodd, PT [address] [place] [address] T4 spinal cord injury, 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] [facility] Comment on above: T4 spinal cord injur y, 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] Start: 12-16-2024 End: 12-16-2024 ambulatory 12/16/2024 7:45 AM EDT OT/PT/Speech [facility] [address] [place] [address] Conrad Dodd, PT [address] [place] [address] T4 spinal cord injury, 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] [facility] Comment on above: T4 spinal cord injur y, 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] Start: 12-15-2024 End: 03-16-2025 Hepatic function 2000 panel - Serum or Plasma HEPATIC FUNCTION PNL Lab Routine Onychomycosis Expected: 12/15/2024, Expires: 03/16/2025 [facility] Work Phone: Comment on above: Expected: 12/15/2024 , Expires: 03/16/2025 Start: 12-15-2024 End: 12-15-2024 Patient encounter procedure 12/15/2024 9:00 AM EDT Office Visit [facility] [address] [place] [address] Ruslan Sherwood MD [address] [place], [place] [phone] [facility] Comment on above: [facility] Start: 12-11-2024 End: 12-11-2024 ambulatory 12/11/2024 7:45 AM EDT OT/PT/Speech Visit [facility] [address] [place] [address] Cuong Monroy, PT [address] [place], [place] [phone] T4 spinal cord injury, 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] [facility] Comment on above: T4 spinal cord injur y, 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] Start: 12-08-2024 End: 12-08-2024 ambulatory 12/08/2024 7:45 AM EDT OT/PT/Speech [facility] [address] [place] [address] Cuong Monroy, PT [address] [place], [place] [phone] T4 spinal cord injury, 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] [facility] Comment on above: T4 spinal cord injur y, 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] Start: 12-04-2024 End: 12-04-2024 ambulatory 12/04/2024 9:15 AM EDT OT/PT/Speech Visit [facility] [address] [place] [address] Conrad Dodd, PT [address] [place] [address] T4 spinal cord injury, 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] [facility] Comment on above: T4 spinal cord injur y, 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] Start: 12-03-2024 End: 12-03-2024 ambulatory 12/03/2024 7:00 AM EDT OT/PT/Speech Visit [facility] [address], [place] [phone] Alexis Anderson, PT [address] [place] [address] S24.102S (ICD-10-CM) - T4 spinal cord injury, sequela (HCC) [facility] Comment on above: S24.102S (ICD-10-CM) - T4 spinal cord injury, sequela (HCC) Start: 12-01-2024 End: 12-01-2024 ambulatory 12/01/2024 7:45 AM EDT OT/PT/Speech [facility] [address] [place] [address] Cuong Monroy, PT [address] [place], [place] [phone] T4 spinal cord injury, 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] [facility] Comment on above: T4 spinal cord injur y, 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] Start: 11-27-2024 End: 11-27-2024 ambulatory 11/27/2024 7:45 AM EDT OT/PT/Speech [facility] [address] [facility] [place] [address] Cuong Monroy, PT [address] [place], [place] [phone] T4 spinal cord injury, 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] [facility] Comment on above: T4 spinal cord injur y, 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] Start: 11-26-2024 End: 11-26-2024 ambulatory 11/26/2024 7:00 AM EDT OT/PT/Speech Visit [facility] [address] [place] [address] Alexis Anderson, PT [address] [place], [place] [phone] S24.102S (ICD-10-CM) - T4 spinal cord injury, sequela (HCC) [facility] Comment on above: S24.102S (ICD-10-CM) - T4 spinal cord injury, sequela (HCC) Start: 11-24-2024 End: 11-24-2024 ambulatory 11/24/2024 7:45 AM EDT OT[facility]PT[facility] [address] [place] [address] Cuong Monroy, PT [address] [place], [place] [phone] T4 spinal cord injury, 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] [facility] Comment on above: T4 spinal cord injur y, 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] Start: 11-20-2024 End: 11-20-2024 ambulatory 11/20/2024 7:45 AM EDT OT/PT/Speech Visit [facility] [address] [facility] [place] [address] Cuong Monroy, PT [address] [place], [place] [phone] T4 spinal cord injury, 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] [facility] Comment on above: T4 spinal cord injur y, 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] Start: 11-19-2024 End: 11-19-2024 ambulatory 11/19/2024 7:00 AM EDT OT/PT/Speech Visit [facility] [address] [facility] [place] [address] Alexis Anderson, PT [address] [place] [address] S24.102S (ICD-10-CM) - T4 spinal cord injury, sequela (HCC) [facility] Comment on above: S24.102S (ICD-10-CM) - T4 spinal cord injury, sequela (HCC) Start: 11-18-2024 End: 11-18-2024 ambulatory 11/18/2024 10:00 AM EDT OT/PT/Speech [facility] [address] [place] [address] Conrad Dodd, PT [address] [place] [address] T4 spinal cord injury, 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1]; Ingrown toenail [L60 Podiatry Comment on above: Onychomycosis [B35.1 ]; Ingrown toenail [L60 Start: 11-13-2024 End: 11-13-2024 ambulatory 11/13/2024 9:15 AM EDT OT/PT/Speech [facility] [address] [place] [address] Cuong Monroy, PT [address] [place] [address] T4 spinal cord injury, 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] [facility] Comment on above: T4 spinal cord injur y, 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] Start: 11-12-2024 End: 11-12-2024 ambulatory 11/12/2024 7:00 AM EDT OT/PT/Speech Visit [facility] [address] [place] [address] Alexis Anderson, PT [address] [place], [place] [phone] S24.102S (ICD-10-CM) - T4 spinal cord injury, sequela (HCC) [facility] Comment on above: S24.102S (ICD-10-CM) - T4 spinal cord injury, sequela (HCC) Start: 11-06-2024 End: 11-06-2024 ambulatory 11/06/2024 9:15 AM EDT OT/PT/Speech [facility] [address] [place] [address] Cuong Monroy, PT [address] [place] [address] T4 spinal cord injury, 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] [facility] Comment on above: T4 spinal cord injur y, 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] Start: 11-05-2024 End: 11-05-2024 ambulatory 11/05/2024 8:30 AM EDT OT/PT/Speech Visit [facility] [address] [place] [address] Alexis Anderson, PT [address] [place], [place] [phone] Impingement syndrome of right shoulder [M75.41] [facility] Comment on above: Impingement syndrome of right shoulder [M75.41] Start: 11-03-2024 End: 11-03-2024 ambulatory 11/03/2024 9:15 AM EDT OT/PT/Speech Visit [facility] [address] [place] [address] Cuong Monroy, PT 1 [facility], [place] [phone]- T4 spinal cord injury, 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] [facility] Comment on above: T4 spinal cord injur y, 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] Start: 10-31-2024 End: 10-31-2024 ambulatory 10/31/2024 7:45 AM EDT OT/PT/Speech Visit [facility] [address] [place], [place] [phone] Alexis Anderson, PT [address] [place], [place] [id number] M75.41 (ICD-10-CM) - Impingement syndrome of right shoulder [facility] Comment on above: M75.41 (ICD-10-CM) - Impingement syndrome of right shoulder Start: 10-30-2024 End: 10-30-2024 ambulatory 10/30/2024 9:15 AM EDT OT/PT/Speech Visit [facility] [address] [place] [address] Cuong Monroy, PT 1 [facility], [place] [phone]- T4 spinal cord injury, 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] [facility] Comment on above: T4 spinal cord injur y, 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] Start: 10-27-2024 End: 10-27-2024 ambulatory 10/27/2024 9:15 AM EDT OT/PT/Speech Visit [facility] [address] [place] [address] ElianaCuong chávez, PT 1 [facility], [place] [id number] [phone]- T4 spinal cord injury, 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] [facility] Comment on above: T4 spinal cord injur y, 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] Start: 10-24-2024 End: 10-24-2024 ambulatory 10/24/2024 7:45 AM EDT OT/PT/Speech Visit [facility] [address] [place] [address] Alexis Anderson, PT [address] [place] [address] M75.41 (ICD-10-CM) - Impingement syndrome of right shoulder [facility] Comment on above: M75.41 (ICD-10-CM) - Impingement syndrome of right shoulder Start: 10-23-2024 End: 10-23-2024 ambulatory 10/23/2024 9:15 AM EDT OT/PT/Speech Visit [facility] [address] [place] [address] Cuong Monroy, PT 1 [place], [place] [phone] T4 spinal cord injury, 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] [facility] Comment on above: T4 spinal cord injur y, 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] Start: 10-20-2024 End: 10-20-2024 ambulatory 10/20/2024 9:15 AM EDT OT/PT/Speech Visit [facility] [address] [facility] [place] [address] Cuong Monroy, PT 1 [place], [place] [phone]- T4 spinal cord injury, 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] [facility] Comment on above: T4 spinal cord injur y, 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] Start: 10-17-2024 End: 10-17-2024 ambulatory 10/17/2024 10:15 AM EDT OT/PT/Speech Visit [facility] [address] [place] [address] Roselia Alexandra, BARKER PEELER [address] [place] [address] M75.41 (ICD-10-CM) - Impingement syndrome of right shoulder [facility] Comment on above: M75.41 (ICD-10-CM) - Impingement syndrome of right shoulder Start: 10-17-2024 End: 10-17-2024 Patient encounter procedure 10/17/2024 8:00 AM EDT Office Visit Behavioral Health [address] [place] [address] Fatuma Bean, AUTO CLOCKS REPAIRER [address] [place] [address] Impotence of organic origin [facility] Comment on above: Impotence of organic origin Start: 10-16-2024 End: 10-16-2024 ambulatory 10/16/2024 8:30 AM EDT OT/PT/Speech Visit [facility] [address] [place] [address] Conrad Dodd, PT [address] [place] [address] T4 spinal cord injury, 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] [facility] Comment on above: T4 spinal cord injur y, 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] Start: 10-13-2024 End: 10-13-2024 ambulatory 10/13/2024 8:00 AM EDT OT/PT/Speech Visit [facility] [address] [facility] [place] [address] Conrad Ddod, PT [address] [place] [address] T4 spinal cord injury, 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] [facility] Comment on above: T4 spinal cord injur y, 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] Start: 10-09-2024 [facility] Start: 10-09-2024 End: 10-09-2024 ambulatory 10/09/2024 3:00 PM EDT OT/PT/Speech Visit [facility] [address] [place] [address] Alexis Anderson, PT 7[address] [facility] [place], [place] [address] M75.41 (ICD-10-CM) - Impingement syndrome of right shoulder [facility] Comment on above: M75.41 (ICD-10-CM) - Impingement syndrome of right shoulder Start: 09-30-2024 End: 09-30-2024 Patient encounter procedure [facility] [place] Comment on above: 6 month follow up Start: 09-26-2024 End: 12-26-2024 25-hydroxyvitamin D3 [Mass/volume] in Serum or Plasma VITAMIN D 25 HYDROXY Lab Routine Vitamin D deficiency Expected: 09/26/2024, Expires: 12/26/2024 [facility] Comment on above: Expected: 09/26/2024 , Expires: 12/26/2024 Start: 09-26-2024 End: 12-26-2024 CBC panel - Blood by Automated count COMPLETE BLOOD COUNT Lab Routine Encounter for monitoring chronic NSAID therapy Expected: 09/26/2024, Expires: 12/26/2024 [facility] Work Phone: Comment on above: Expected: 09/26/2024 , Expires: 12/26/2024 Start: 09-26-2024 End: 12-26-2024 Comprehensive metabolic 2000 panel - Serum or Plasma COMPREHENSIVE METABOLIC PANEL Lab Routine Encounter for monitoring chronic NSAID therapy Expected: 09/26/2024, Expires: 12/26/2024 [facility] Comment on above: Expected: 09/26/2024 , Expires: 12/26/2024 Start: 09-23-2024 End: 09-23-2024 ambulatory 09/23/2024 10:45 AM EDT OT[facility] [address] [place] [address] Alexis Anderson, PT 7[address] [facility] [place], [place] [phone] S24.102S (ICD-10-CM) - T4 spinal cord injury, sequela (HCC) [facility] Comment on above: S24.102S (ICD-10-CM) - T4 spinal cord injury, sequela (HCC) Start: 09-22-2024 End: 09-22-2024 ambulatory 09/22/2024 10:00 AM EDT OT/PT/Speech Visit [facility] [address] [place] [address] Cuong Monroy, PT 1 [place] [address] T4 spinal cord injury, 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] [facility] Comment on above: T4 spinal cord injur y, 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] Start: 09-19-2024 End: 09-19-2024 Patient encounter procedure 09/19/2024 1:45 PM EDT Office Visit Urology [address] [address] Luda Armas MD [address] [place] [address] follow up Urology Comment on above: follow up Start: 09-16-2024 End: 09-16-2024 ambulatory 09/16/2024 8:30 AM EDT OT/PT/Speech Visit [facility] [address] [place], [place] [phone] Alexis Anderson, PT [address] [place], [place] [phone] Impingement syndrome of right shoulder [M75.41] [facility] Comment on above: Impingement syndrome of right shoulder [M75.41] Start: 09-03-2024 End: 09-03-2024 Patient encounter procedure [facility] Comment on above: Pain of both shoulde r joints [M25.511, M25.512] Start: 08-25-2024 End: 08-25-2024 Patient encounter procedure 08/25/2024 1:45 PM EDT Office Visit Rehab [facility] [address] [place] [address] Daysi Roque, CRYSTAL [address] [place] [address] REHAB FU Rehab [facility] Comment on above: REHAB FU Start: 08-21-2024 End: 08-21-2024 Patient encounter procedure Rehab [facility] Comment on above: Follow Up (4 week) REHAB FU Start: 08-07-2024 End: 08-07-2024 Patient encounter procedure Rehab [facility] Comment on above: ITB REFILL ITB REFILL #[id number] ITB HOSP FU Start: 08-05-2024 End: 08-05-2024 Patient encounter procedure Rehab [facility] Comment on above: BOTOX can check in and fatimah m early Start: 07-28-2024 End: 07-28-2024 Admission to same day surgery center 07/28/2024 11:55 AM EST - 07/28/2024 2:39 PM EST Surgery Admitting [address] [place] [address] Shaq Salinas MD [address] [place] [address] REVISE TUNNELED INTRATHECAL CATHETER W/O LAMI Admitting Comment on above: REVISE TUNNELED INTR ATHECAL CATHETER W/O LAMI Start: 07-28-2024 End: 07-28-2024 Impltj revj/rpsg ithcl/edrl cath environmental compliance manager w/o navarro REVISE TUNNELED INTRATHECAL CATHETER W/O LAMI Spasticity 07/28/2024 11:55 AM EST [facility] Start: 07-28-2024 End: 07-28-2024 Rmvl subq rsvr/pump intrathecal/epidural infus REMOVAL PUMP INTRATHECAL Spasticity 07/28/2024 11:55 AM EST [facility] Start: 07-28-2024 Subsequent hospital visit by physician 07/28/2024 11:55 AM EST Hospital Encounter Admitting [address] [place] [address] Shaq Salinas MD [address] [place] [address] Spasticity [R25.2] Admitting Comment on above: Spasticity [R25.2] Start: 07-25-2024 End: 07-25-2024 Patient encounter procedure 07/25/2024 4:00 PM EST Office Visit [facility] [address] [facility] [place] [address] Ceferino Jones PA-C [address] [place] [address] SUTURE REMOVAL [facility] Comment on above: SUTURE REMOVAL Start: 07-17-2024 End: 07-17-2024 Patient encounter procedure [facility] Comment on above: itb agj Start: 07-13-2024 Subsequent hospital visit by physician 07/13/2024 Hospital Encounter Admitting [address] [place] [address] Fredy Harley MD [address] [place] [address] Spasticity [R25.2] Admitting Comment on above: Spasticity [R25.2] Start: 07-11-2024 End: 07-11-2024 Patient encounter procedure 07/11/2024 1:00 PM EST Office Visit [facility] [address] [place] [address] Renata Napier MD [address] [place] [address] ItB ADJ [facility] Comment on above: ItB ADJ Start: 07-10-2024 End: 07-10-2024 Patient encounter procedure 07/10/2024 11:15 AM EST [facility] [address] [place] [address] Daysi Roque, PA-C [address] [place] [address] ITB ADJ Rehab Medicine [facility] Comment on above: ITB ADJ Start: 07-09-2024 End: 07-09-2024 ambulatory 07/09/2024 4:15 PM EST Results Only [facility] J1-4 Draw Station [address] [place] [address] PRE-OP CLEARANCE [facility] J[facility] Comment on above: PRE-OP CLEARANCE Start: 07-09-2024 End: 07-09-2024 Patient encounter procedure 07/09/2024 2:30 PM EST Office Visit [facility] [address] [place] [address] Shaq Salinas MD [address] [place] [address] Consent [facility] Comment on above: Consent Start: 07-09-2024 End: 07-09-2024 Anesthesia consultation 07/09/2024 1:40 PM EST PAT Pre Anesthesia [address] [place] [address] 8, Pacc Main [address] [place], [place] [phone] PRE OP Pre Anesthesia Comment on above: PRE OP Start: 07-09-2024 End: 07-09-2024 Patient encounter procedure Radiology Comment on above: Preop Xray, lumbar a nd thoracic Education PRE-OP CLEARANCE Start: 07-08-2024 End: 07-08-2024 Patient encounter procedure [facility] Comment on above: ITB ADJ Start: 07-04-2024 End: 07-04-2024 ambulatory [facility] A15 Draw Station Comment on above: Preop Lab and nasal swab Preop Start: 07-04-2024 End: 07-04-2024 Anesthesia consultation 07/04/2024 12:50 PM EST PAT Pre Anesthesia [address] [place] [address] 5, Pacc Main [address] [place] [address] PRE OP Pre Anesthesia Comment on above: PRE OP Start: 07-04-2024 End: 07-04-2024 Patient encounter procedure 07/04/2024 12:30 PM EST Office Visit Admitting [address] [address] A12, Admit Interview [address] [place] [address] Preop Admitting Comment on above: Preop Start: 07-04-2024 End: 07-04-2024 Patient encounter procedure 07/04/2024 10:15 AM EST Office Visit [facility] [address] [place] [address] Jimena Kramer, PA-C [address] [place] [address] ITB ADJ [facility] Comment on above: ITB ADJ Start: 07-01-2024 End: 07-01-2024 Patient encounter procedure 07/01/2024 2:30 PM EST Office Visit [facility] [address], [place] [address] Jimena Kramer, PA-C [address] [place] [address] ITB ADJ [facility] Comment on above: ITB ADJ Start: 06-30-2024 End: 06-30-2024 Patient encounter procedure 06/30/2024 10:30 AM EST Office Visit Rehab [facility] [address] [place] [address] Daysi Roque, PA-C [address] [place], [place] [phone] [facility] Comment on above: ITB ADJ Start: 06-26-2024 End: 06-26-2024 Patient encounter procedure 06/26/2024 9:00 AM EST Office Visit Rehab [facility] [address] [place] [address] Daysi Roque, PA-C [address] [place] [address] ITB ADJ Rehab [facility] Comment on above: ITB ADJ Start: 06-23-2024 End: 06-23-2024 Patient encounter procedure 06/23/2024 3:15 PM EST [facility] [address] [place] [address] Daysi Roque, PA-C [address] [place] [address] [facility] Comment on above: ITB ADJ Start: 06-20-2024 End: 06-20-2024 Follow-up encounter 06/20/2024 2:30 PM EST [facility] [address] [address] Luda Armas MD [address] [place], [place] [phone] 6 mo follow up Urology Comment on above: 6 mo follow up Start: 06-20-2024 End: 06-20-2024 Patient encounter procedure 06/20/2024 1:00 PM EST Office Visit [facility] [address] [place] [address] Jimena Kramer, PA-C [address] [place] [address] ITB A DJ [facility] Comment on above: ITB A DJ Start: 06-18-2024 Medicare Advantage Annual Wellness Visit Medicare Advantage Annual Wellness Visit [facility] Start: 05-30-2024 End: 05-30-2024 Follow-up encounter 05/30/2024 2:30 PM EST [facility] [address] [address] Luda Armas MD [address] [place], [place] [phone] 6 mo follow up Urology Comment on above: 6 mo follow up Start: 05-29-2024 End: 05-29-2024 Patient encounter procedure 05/29/2024 9:00 AM EST Office Visit [facility] [address] [place] [address] Daysi Roque PA-C [address] [place] [address] ITB REFILL #[id number] [facility] Comment on above: ITB REFILL #[id number] Start: 05-26-2024 End: 05-26-2024 Patient encounter procedure 05/26/2024 1:00 PM EST Office Visit [facility] [address] [place] [address] Daysi Roque PA-C [address] [place] [address] ITB REFILL #[id number] [facility] Comment on above: ITB REFILL #[id number] Start: 05-24-2024 End: 11-22-2024 Hematocrit [Volume Fraction] of Blood HEMATOCRIT Lab Routine 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 Erectile dysfunction, unspecified erectile dysfunction type Hypogonadism in male Expected: 05/24/2024 (Approximate), Expires: 11/22/2024 [facility] Comment on above: Expected: 05/24/2024 (Approximate), Expires: 11/22/2024 Start: 05-24-2024 End: 11-22-2024 Prostate specific Ag [Mass/volume] in Serum or Plasma PROSTATE-SPECIFIC ANTIGEN DIAGNOSTIC Lab Routine 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 Erectile dysfunction, unspecified erectile dysfunction type Hypogonadism in male Expected: 05/24/2024 (Approximate), Expires: 11/22/2024 [facility] Comment on above: Expected: 05/24/2024 (Approximate), Expires: 11/22/2024 Start: 05-24-2024 End: 11-22-2024 Testosterone [Mass/volume] in Serum or Plasma TESTOSTERONE, TOTAL Lab Routine 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 Erectile dysfunction, unspecified erectile dysfunction type Hypogonadism in male Expected: 05/24/2024 (Approximate), Expires: 11/22/2024 [facility] Work Phone: Comment on above: Expected: 05/24/2024 (Approximate), Expires: 11/22/2024 Start: 04-14-2024 End: 04-14-2024 Patient encounter procedure 04/14/2024 11:20 AM EDT Office Visit [facility] [address] [place] [address] [place] [address] [place] [address] follow up bina shoulders and left elbow [facility] Comment on above: follow up bina should ers and left elbow Start: 03-28-2024 End: 03-28-2024 Patient encounter procedure 03/28/2024 8:40 AM EDT Office Visit [facility] [place] [address] [place] [address] Anay Roque MD [address] [place] [address] 6 wk follow up [facility] [place] Comment on above: 6 wk follow up Start: 03-27-2024 End: 03-27-2024 Patient encounter procedure 03/27/2024 9:00 AM EDT [facility] [address] [place] [address] Daysi Roque, PA-C [address] [place] [address] ITB REFILL #[id number] [facility] Comment on above: ITB REFILL #[id number] Start: 03-03-2024 End: 03-03-2024 Patient encounter procedure 03/03/2024 2:30 PM EDT Office Visit [facility] [address] [place] [address] Ruslan Sherwood MD [address] [place] [address] BOTOX [facility] Comment on above: BOTOX Start: 03-03-2024 End: 03-03-2024 Patient encounter procedure 03/03/2024 11:15 AM EDT Office Visit [facility] [address] [place] [address] Ruslan Sherwood MD [address] [place] [phone] BOTOX [facility] Comment on above: BOTOX Start: 02-17-2024 Covid-19 Vaccine ( season) Covid-19 Vaccine ( season) [facility] Start: 02-17-2024 Covid-19 Vaccine ( season) Covid-19 Vaccine ( season) [facility] Start: 02-17-2024 Influenza vaccination [facility] Start: 02-05-2024 End: 02-05-2024 Patient encounter procedure 02/05/2024 10:30 AM EDT Office Visit [facility] [address] [place] [address] Jimena Kramer PA-C [address] [address] ITB FU [facility] Comment on above: ITB FU Start: 02-04-2024 End: 02-04-2024 Patient encounter procedure 02/04/2024 9:00 AM EDT Office Visit [facility] [address] [place] [address] Ruslan Sherwood MD [address] [place], [place] [phone] [facility] Comment on above: BOTOX Start: 01-21-2024 End: 01-21-2024 Patient encounter procedure 01/21/2024 10:40 AM EDT Office Visit [facility] [address] [place], [place] [phone] [place] [address] follow up bina shoulders and left elbow [facility] Comment on above: follow up bina should ers and left elbow Start: 01-14-2024 End: 01-14-2024 Patient encounter procedure 01/14/2024 3:15 PM EDT Office Visit [facility] [address] [place] [address] Daysi Roque, PA-C [address] [place] [address] ITB REFILL #[id number] [facility] Comment on above: ITB REFILL #[id number] Start: 01-10-2024 End: 01-10-2024 Patient encounter procedure 01/10/2024 9:00 AM EDT Office Visit [facility] [address] [place] [address] Daysi Roque, PA-C [address] [place] [address] ITB REFILL #[id number] [facility] Comment on above: ITB REFILL #[id number] Start: 01-09-2024 End: 04-09-2024 25-hydroxyvitamin D3 [Mass/volume] in Serum or Plasma VITAMIN D 25 HYDROXY Lab Routine Vitamin D deficiency Expected: 01/09/2024, Expires: 04/09/2024 [facility] Comment on above: Expected: 01/09/2024 , Expires: 04/09/2024 Start: 01-09-2024 End: 04-09-2024 CBC W Auto Differential panel - Blood COMPLETE BLOOD COUNT AND DIFFERENTIAL Lab Routine Iron deficiency Expected: 01/09/2024, Expires: 04/09/2024 [facility] Comment on above: Expected: 01/09/2024 , Expires: 04/09/2024 Start: 01-09-2024 End: 04-09-2024 Cobalamin (Vitamin B12) [Mass/volume] in Serum or Plasma VITAMIN B12 Lab Routine Vitamin B12 deficiency Expected: 01/09/2024, Expires: 04/09/2024 [facility] Comment on above: Expected: 01/09/2024 , Expires: 04/09/2024 Start: 01-09-2024 End: 04-09-2024 Comprehensive metabolic 2000 panel - Serum or Plasma COMPREHENSIVE METABOLIC PANEL Lab Routine Prediabetes Expected: 01/09/2024, Expires: 04/09/2024 [facility] Comment on above: Expected: 01/09/2024 , Expires: 04/09/2024 Start: 01-09-2024 End: 04-09-2024 Ferritin [Mass/volume] in Serum or Plasma FERRITIN Lab Routine Iron deficiency Expected: 01/09/2024, Expires: 04/09/2024 [facility] Comment on above: Expected: 01/09/2024 , Expires: 04/09/2024 Start: 01-09-2024 End: 04-09-2024 Hemoglobin A1c in Blood HEMOGLOBIN A1C Lab Routine Prediabetes Expected: 01/09/2024, Expires: 04/09/2024 [facility] Comment on above: Expected: 01/09/2024 , Expires: 04/09/2024 Start: 01-09-2024 End: 04-09-2024 Iron and Iron binding capacity panel - Serum or Plasma IRON AND TIBC Lab Routine Iron deficiency Expected: 01/09/2024, Expires: 04/09/2024 [facility] Work Phone: Comment on above: Expected: 01/09/2024 , Expires: 04/09/2024 Start: 01-09-2024 End: 04-09-2024 Lipid 1996 panel - Serum or Plasma LIPID PANEL BASIC Lab Routine Hyperlipidemia, mixed Expected: 01/09/2024, Expires: 04/09/2024 [facility] Comment on above: Expected: 01/09/2024 , Expires: 04/09/2024 Start: 11-24-2023 End: 05-24-2024 Hematocrit [Volume Fraction] of Blood HEMATOCRIT (HCT) Lab Routine 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 Erectile dysfunction, unspecified erectile dysfunction type Expected: 11/24/2023 (Approximate), Expires: 05/24/2024 [facility] Work Phone: Comment on above: Expected: 11/24/2023 (Approximate), Expires: 05/24/2024 Start: 11-24-2023 End: 05-24-2024 Prostate specific Ag [Mass/volume] in Serum or Plasma PSA/PROSTSPECAG DIAG Lab Routine 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 Erectile dysfunction, unspecified erectile dysfunction type Expected: 11/24/2023 (Approximate), Expires: 05/24/2024 [facility] Work Phone: Comment on above: Expected: 11/24/2023 (Approximate), Expires: 05/24/2024 Start: 11-24-2023 End: 05-24-2024 Testosterone [Mass/volume] in Serum or Plasma TESTOSTERONE TOTAL Lab Routine 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 Erectile dysfunction, unspecified erectile dysfunction type Expected: 11/24/2023 (Approximate), Expires: 05/24/2024 [facility] Work Phone: Comment on above: Expected: 11/24/2023 (Approximate), Expires: 05/24/2024 Start: 11-23-2023 End: 11-23-2023 ambulatory 11/23/2023 3:00 PM EDT [facility] [address] [address] Luda Armas MD [address] [place] [address] 6 mth follow Urology Comment on above: 6 mth follow Start: 10-25-2023 End: 10-25-2023 Patient encounter procedure 10/25/2023 10:30 AM EDT Office Visit Rehab [facility] [address] [place] [address] Daysi Roque PAAbbeyC [address] [place] [address] ITB REFILL #[id number] Rehab Medicine [facility] Comment on above: ITB REFILL #[id number] Start: 06-18-2023 Behavioral Health Screening Behavioral Health Screening [facility] Start: 06-18-2023 Depression Assessment Depression Ass [facility] Start: 04-14-2023 End: 07-14-2023 INFLUENZA A&B MOLECULAR (POC) INFLUENZA A&B MOLECULAR (POC) Microbiology Routine Fever, unspecified fever cause Expected: 04/14/2023, Expires: 07/14/2023 [facility] Work Phone: Comment on above: Expected: 04/14/2023 , Expires: 07/14/2023 Start: 04-06-2023 ANNUAL PCP TEAM HOSPITAL TECHNICIAN MATT DISEASE VISIT ANNUAL PCP TEAM CHRONIC DISEASE VISIT [facility] Start: 03-02-2023 Adult depression screening assessment DEPRESSION SCREENING [facility] Start: 02-16-2023 Covid-19 Vaccine () Covid-19 Vaccine () [facility] Start: 02-16-2023 Influenza vaccination [facility] Start: 02-13-2023 Adult depression screening assessment DEPRESSION SCREENING [facility] Start: 01-25-2023 ANNUAL PCP TEAM HOSPITAL TECHNICIAN MATT DISEASE VISIT ANNUAL PCP TEAM CHRONIC DISEASE VISIT [facility] Start: 12-27-2022 Adult depression screening assessment DEPRESSION SCREENING [facility] Start: 11-30-2022 Adult depression screening assessment DEPRESSION SCREENING [facility] Start: 06-18-2022 DEPRESSION ASSESSMENT DEPRESSION ASS [facility] Start: 03-08-2022 End: 05-08-2022 Bacteria identified in Urine by Culture [facility] Work Phone: Comment on above: Expected: 03/08/2022 , Expires: 05/08/2022 Start: 03-08-2022 End: 05-08-2022 Urinalysis complete panel - Urine [facility] Work Phone: Comment on above: Expected: 03/08/2022 , Expires: 05/08/2022 Start: 03-01-2022 ANNUAL PCP TEAM HOSPITAL TECHNICIAN MATT DISEASE VISIT ANNUAL PCP TEAM CHRONIC DISEASE VISIT [facility] Start: 02-16-2022 Influenza vaccination [facility] Start: 01-25-2022 End: 03-27-2022 Hemoglobin A1c in Blood HGB A1C Lab Routine Elevated blood sugar Expected: 01/25/2022, Expires: 03/27/2022 [facility] Work Phone: Comment on above: Expected: 01/25/2022 , Expires: 03/27/2022 Start: 01-25-2022 End: 03-27-2022 Lipid 1996 panel - Serum or Plasma LIPID PANEL BASIC Lab Routine Lipid screening Expected: 01/25/2022, Expires: 03/27/2022 [facility] Work Phone: Comment on above: Expected: 01/25/2022 , Expires: 03/27/2022 Start: 12-15-2021 Influenza vaccination INFLUENZA (#1) [facility] Comment on above: Postponed from 02/16 (Declined at this time) Start: 09-24-2021 End: 11-24-2021 Bacteria identified in Urine by Culture URINE CULTURE Microbiology Routine Urination frequency Expected: 09/24/2021, Expires: 11/24/2021 [facility] Work Phone: Comment on above: Expected: 09/24/2021 , Expires: 11/24/2021 Start: 06-18-2021 DEPRESSION ASSESSMENT DEPRESSION ASS ESSMENT [facility] Start: 10-06-2020 Lipid 1996 panel - Serum or Plasma Lipid Screening [facility] Start: 10-06-2020 Lipid panel Lipid Screening [facility] Start: 10-06-2020 LIPID SCREEN LIPID SCREEN [facility] Start: 07-30-2018 Adult depression screening assessment DEPRESSION SCREENING [facility] Start: 08-28-2003 Hepatitis B Vaccine (1 of 3 - 19+ 3-dose series) Hepatitis B Vaccine (1 of 3 - 19+ 3-dose series) [facility] Start: 08-28-2003 ONE PNEUMOVAX PRIOR TO AGE 65 ONE PNEUMOVAX PRIOR TO AGE 65 [facility] Start: 08-28-2003 Pneumococcal vaccination Pneumococcal Vaccine (1 of 2 - PCV) [facility] Start: 2002 Anxiety Screening Anxiety Screening [facility] Start: 2002 Depression Screening Depression Scre ening [facility] Start: 2002 HEPATITIS C SCREENING HEPATITIS C [facility] Start: 2002 Hepatitis C screening Hepatitis C [facility] Start: 2002 SPIROMETRY SPIROMETRY [facility] Start: 1990 PNEUMOCOCCAL (1 - PCV) PNEUMOCOCCAL (1 - PCV) [facility] Start: 1990 Pneumococcal vaccination [facility] Start: 1989 COVID-19 VACCINE (#1) COVID-19 VACCI NE (#1) [facility] Start: 1989 COVID-19 VACCINE (1) COVID-19 VACCIN E (1) [facility] Start: 02-27-1985 COVID-19 VACCINE (#1) COVID-19 VACCI NE (#1) [facility] Start: 1984 HEPATITIS B (1 of 3 - 3-dose series) HEPATITIS B (1 of 3 - 3-dose series) [facility] Start: 1984 Hepatitis B Vaccine (1 of 3 - 3-dose series) Hepatitis B Vaccine (1 of 3 - 3-dose series) [facility] Bacteria identified in Urine by Culture URINE CULTURE Microbiology Routine Painful urination 03/05/2023 11:19 AM EDT [facility] Work Phone: Bacteria identified in Urine by Culture URINE CULTURE Microbiology Routine Fever, unspecified fever cause 04/14/2023 10:31 AM [facility] Work Phone: Bacteria identified in Urine by Culture URINE CULTURE Microbiology Routine Recurrent UTI 05/21/2023 9:52 AM [facility] Work Phone: Bacteria identified in Urine by Culture URINE CULTURE Microbiology Routine Urinary frequency 07/31/2023 10:43 AM [facility] Work Phone: Bacteria identified in Urine by Culture BACTERIAL CULTURE, URINE Microbiology Routine Urinary frequency Ordered: 11/13/2024 [facility] Work Phone: Comment on above: Ordered: 11/13/2024 Impltj revj/rpsg ithcl/edrl cath environmental compliance manager w/o navarro REVISE TUNNELED INTRATHECAL CATHETER W/O LAMI Spasticity [facility] Microorganism identified in Unspecified specimen by Culture FUNGAL CULTURE AND SMEAR - DERMAL (HAIR, SKIN AND NAIL) Microbiology Routine Onychomycosis 11/14/2024 10:18 AM EDT [facility] Patient Education [facility] Work Phone: Patient referral [facility] Work Phone: PT PLAN OF CARE CERTIFICATION PT PLAN OF CARE CERTIFICATION Procedures Routine Impaired functional mobility, balance, gait, and endurance Gait abnormality Spinal cord injury, T7-T12 (HCC) Paraplegia (HCC) Spasticity Impaired motor control Ordered: 09/15/2021 [facility] Work Phone: Comment on above: Ordered: 09/15/2021 PT PLAN OF CARE CERTIFICATION PT PLAN OF CARE CERTIFICATION Procedures Routine Gait abnormality Spinal cord injury, T7-T12 (HCC) Weakness Impaired functional mobility, balance, gait, and endurance Spasticity Paraplegia (HCC) Ordered: 12/20/2021 [facility] Work Phone: Comment on above: Ordered: 12/20/2021 PT PLAN OF CARE CERTIFICATION PT PLAN OF CARE CERTIFICATION Procedures Routine Gait abnormality Spinal cord injury, T7-T12 (HCC) Paraplegia (HCC) Ordered: 02/09/2022 [facility] Work Phone: Comment on above: Ordered: 02/09/2022 PT PLAN OF CARE CERTIFICATION PT PLAN OF CARE CERTIFICATION Procedures Routine Spinal cord injury, T7-T12 (HCC) Paraplegia (HCC) Impaired functional mobility, balance, gait, and endurance Gait abnormality Ordered: 06/08/2022 [facility] Work Phone: Comment on above: Ordered: 06/08/2022 PT PLAN OF CARE CERTIFICATION PT PLAN OF CARE CERTIFICATION Procedures Routine Spinal cord injury, T7-T12 (HCC) Paraplegia (HCC) Impaired functional mobility, balance, gait, and endurance Gait abnormality Ordered: 09/07/2022 [facility] Work Phone: Comment on above: Ordered: 09/07/2022 Rmvl subq rsvr/pump intrathecal/epidural infus REMOVAL PUMP INTRATHECAL Spasticity [facility] UA DIP, URINE (POC) UA DIP, URIN E (POC) Lab Routine Painful urination Ordered: 03/05/2023 [facility] Work Phone: Comment on above: Ordered: 03/05/2023 Urine culture [facility] US ELBOW-INJECTION L T (POC) EARL USE ONLY US ELBOW-INJECTION LT (POC) EARL USE ONLY Imaging Procedures Routine Lateral epicondylitis of left elbow Ordered: 04/14/2024 [facility] Comment on above: Ordered: 04/14/2024 End: 10-19-2022 Us lmtd joint/oth nonvasc xtr strux r-t w/img US ELBOW LEFT Radiology Routine Lateral epicondylitis of left elbow 1 Occurrences starting 09/19/2021 until 10/19/2022 [facility] Work Phone: Comment on above: 1 Occurrences starti ng 09/19/2021 until 10/19/2022 End: 10-19-2022 US SHOULDER LT [facility] Work Phone: Comment on above: 1 Occurrences starti ng 09/19/2021 until 10/19/2022 US SHOULDER-INJECTIO N LT (POC) EARL USE ONLY US SHOULDER-INJECTION LT (POC) EARL USE ONLY Imaging Procedures Routine Bilateral shoulder bursitis Ordered: 04/14/2024 [facility] Comment on above: Ordered: 04/14/2024 US SHOULDER-INJECTIO N RT (POC) EARL USE ONLY US SHOULDER-INJECTION RT (POC) EARL USE ONLY Imaging Procedures Routine Bilateral shoulder bursitis Ordered: 04/14/2024 [facility] Work Phone: Comment on above: Ordered: 04/14/2024 End: 09-24-2025 XR Shoulder - left 3 Views XR SHOULDER GENERAL 3V OR MORE AP/TRUE AP/OTHER LEFT Radiology Routine Pain of both shoulder joints 1 Occurrences starting 08/25/2024 until 09/24/2025 [facility] Comment on above: 1 Occurrences starti ng 08/25/2024 until 09/24/2025 End: 09-24-2025 XR Shoulder - right 3 Views XR SHOULDER GENERAL 3V OR MORE AP/TRUE AP/OTHER RIGHT Radiology Routine Pain of both shoulder joints 1 Occurrences starting 08/25/2024 until 09/24/2025 [facility] Work Phone: Comment on above: 1 Occurrences starti ng 08/25/2024 until 09/24/2025 [facility] Immunizations Immunization Date Immunization Notes Care Provider Lior gonsalves 01-14-2020 tetanus toxoid, redu kate diphtheria toxoid, and acellular pertussis vaccine, adsorbed [facility] 07-30-2017 influenza virus vaccine, unspecified formulation Carlie Gustafson APRN.[facility] Work Phone: [facility] Payers Date Payer Category Payer Self-pay [id number] 2024 [facility] [id number] 2018 Medicare [id number] 2015 Medicaid [id number] 2015 Medicare [id number] 2015 Medicare (Managed Care) [facility] MEDICARE [id number] 2015 Unknown [id number] 1984 Unknown [id number] 1984 Unknown [id number] 1984 Unknown [id number] Private Health Insurance Unknown Unknown [id number] Unknown [id number] Unknown [id number] Unknown [id number] Unknown [id number] Social History Date Type Detail Facility Start: 03-24-2019 End: 03-27-2024 Tobacco smoking status NEIS Smokes tobacco daily [facility] History of tobacco use Cigarette Smoker [facility] Start: 03-24-2019 End: 10-26-2022 Cigarettes smoked current (pack per day) - Reported 1 [facility] Start: 03-24-2019 End: 03-27-2024 Tobacco use and exposure Former smokeless tobacco user [facility] End: 01-19-2005 History of tobacco use Chews Tobacco [facility] Start: 09-06-2021 End: 11-14-2024 Alcohol intake Current drinker of alcohol (finding) [facility] Start: 12-24-2019 History SDOH Alcohol Frequency 2 [facility] Start: 12-24-2019 End: 04-06-2022 History SDOH Alcohol Std Drinks 1 [facility] Start: 08-05-2021 History SDOH Alcohol Comment rarely [facility] Start: 12-24-2019 History SDOH Social Connections Phone 5 [facility] Start: 12-24-2019 History SDOH Social Connections Get Together 3 [facility] Start: 12-24-2019 History SDOH Social Connections Meetings 98 [facility] Start: 12-24-2019 History SDOH Physical Activity DPW 4 [facility] Start: 12-24-2019 Education 15 [facility] Start: 1985 Sex Assigned At Not on file [facility] Start: 08-26-2021 End: 04-27-2022 Exposure to SARS-CoV-2 (event) Not sure [facility] Start: 11-14-2021 Tobacco smoking status NHIS Unknown if ever smoked [facility] Work Phone: Start: 09-22-2015 Rare [facility] Start: 09-22-2015 None;- [facility] Start: 01-14-2020 Spouse/ Significant Other [facility] Start: 01-14-2020 Cigarettes [facility] Start: 1985 Sex Assigned At Male [facility] Start: 12-24-2019 End: 10-26-2022 Social connection and isolation panel [facility] Do you belong to any clubs or organizations such as protestant groups, unions, fraternal or athletic groups, or school groups? No [facility] How often do you att end meetings of the clubs or organizations you belong to? Patient refused [facility] Are you now , , , , never or living with a partner? [facility] How often to you hav e a drink containing alcohol? Monthly or less [facility] How many standard dr inks containing alcohol do you have on a typical day? 1 or 2 [facility] How often do you hav e 6 or more drinks on 1 occasion? Never [facility] How hard is it for y ou to pay for the very basics like food, housing, medical care, and heating Not very hard [facility] Do you feel stress - tense, restless, nervous, or anxious, or unable to sleep at night because your mind is troubled all the time - these days [OSQ] To some extent [facility] (I/We) worried wheth er (my/our) food would run out before (I/we) got money to buy more. Never true [facility] In the past 12 month s, was there a time when you were not able to pay the mortgage or rent on time? Yes [facility] History of tobacco use Passive smoker [facility] Start: 10-09-2024 Sex Male (finding) [facility] Medical Equipment Procedure Code Equipment Code Equipment Origin al Text Equipment Identifier Dates Catheter [id number]_[facility] Start: 03-02-2015 Comment on above: Description: [id number] C ATH INT THCL LONG .296ML 2 PC Kit [employer] Accessory 2 Attach Collet Pump Segment Revision Catheter - [id number] Start: 10-13-2016 Pump Int Thcl 40 ml Snchr 2 Drg - [id number]_[facility] Start: 03-02-2015 Pump Synchromed Ii 87.5in Titanium Silicone 26in Intrathecal Mehan - [id number] Start: 08-23-2021 Functional Status Date Assessment Result Facility 07-17-2024 Are you deaf, or do you have serious difficulty hearing No 07/17/2024 10:36 PM Anna Solo RN No [facility] 07-17-2024 Are you blind, or do you have serious difficulty seeing, even when wearing glasses No 07/17/2024 10:36 PM Anna Solo RN No [facility] 07-17-2024 Do you have serious difficulty walking or climbing stairs Yes 07/17/2024 10:36 PM Anna Solo RN Yes [facility] 07-17-2024 Do you have difficul ty dressing or bathing No 07/17/2024 10:36 PM Anna Solo RN No [facility] 07-17-2024 Because of a physica l, mental, or emotional condition, do you have difficulty doing errands alone such as visiting a physician's office or shopping Yes 07/17/2024 10:36 PM Anna Solo RN Yes [facility] Mental Status Date Assessment Result Facility 07-17-2024 Because of a physica l, mental, or emotional condition, do you have serious difficulty concentrating, remembering, or making decisions Yes 07/17/2024 10:36 PM Anna Solo RN Yes [facility] Clinical Notes 02-20-2021 to 12-01-2024 Cuong Monroy, PT - 12/01/2024 8:[address], PT - 11/26/2024 7:[address], PT - 11/26/2024 6:59 AM Cuong Mishra, PT - 11/24/2024 7:50 AM EDTPatient Instructions Note Date & Type Note Facility 12-01-2024 Note HNO ID: [id number] Author: CUONG MONROY PT Service: ? Author Type: Physical Therapist Type: Progress Notes Filed: 12/01/2024 08:58 Note Text: Episode Visit Count: 10 Therapist That Will Accept/Oversee The Plan Of Care: Alexis Anderson PT. Start of Care Date: 09/22/24 Onset Date: 09/17/19 Plan of Care Certification Date: 09/22/24 Next Certification Due Date: 12/05/24 REHABILITATION AND SPORTS THERAPY PHYSICAL THERAPY TREATMENT NOTE ASSESSMENT: Mateus Manzano tolerated the session with shortness of breath, decreased endurance, and fatigue. He demonstrated improvements in overall endurance and functional gait mobility progressions this date. . The patient will continue to benefit from ongoing skilled physical therapy to progress toward set goals. PLAN FOR NEXT VISIT: Continue with bioness and functional gait mobility. SUBJECTIVE: I haven't been sleeping really well. PT cleared me for my shoulders. I have my full range of motion back. Pain: OBJECTIVE MEASURES WITH LEVEL OF FUNCTION: TREATMENT: Neuromuscular Re-Education: 1: Bioness set up left lower leg and left thigh 2: - loftstrands 208ft with CGA/SBA and wheelchair follow 3: - loftstrands 233 ft with SBA with wheelchair follow. Patient focus on straightening knees out during swing phase of gait. 4: - loftstrands 83ft X1 with SBA cues for focus on while leg extension during swing phase and initial stance. Skilled Intervention: Skilled judgment used to assess appropriate program for balance and coordination activity. Education in proprioceptive/kinesthetic awareness during dynamic activities. Billing Neuromuscular Re-Education Treatment Minutes: 40 Skilled Treatment Time Minutes (timed and untimed codes): 40 Total Session Time (minutes): 40 Session Start Time : 744 Session Stop Time : 824 Cuong Monroy PT [facility] 12-01-2024 History of Presen t illness Narrative Episode Visit Count: 10 Therapist That Will Accept/Oversee The Plan Of Care: Alexis Anderson PT. Start of Care Date: 09/22/24 Onset Date: 09/17/19 Plan of Care Certification Date: 09/22/24 Next Certification Due Date: 12/05/24 REHABILITATION AND SPORTS THERAPY PHYSICAL THERAPY TREATMENT NOTE ASSESSMENT: Mateus Manzano tolerated the session with shortness of breath, decreased endurance, and fatigue. He demonstrated improvements in overall endurance and functional gait mobility progressions this date. . The patient will continue to benefit from ongoing skilled physical therapy to progress toward set goals. PLAN FOR NEXT VISIT: Continue with bioness and functional gait mobility. SUBJECTIVE: I haven't been sleeping really well. PT cleared me for my shoulders. I have my full range of motion back. Pain: OBJECTIVE MEASURES WITH LEVEL OF FUNCTION: TREATMENT: Neuromuscular Re-Education: 1: Bioness set up left lower leg and left thigh 2: - loftstrands 208ft with CGA/SBA and wheelchair follow 3: - loftstrands 233 ft with SBA with wheelchair follow. Patient focus on straightening knees out during swing phase of gait. 4: - loftstrands 83ft X1 with SBA cues for focus on while leg extension during swing phase and initial stance. Skilled Intervention: Skilled judgment used to assess appropriate program for balance and coordination activity. Education in proprioceptive/kinesthetic awareness during dynamic activities. Billing Neuromuscular Re-Education Treatment Minutes: 40 Skilled Treatment Time Minutes (timed and untimed codes): 40 Total Session Time (minutes): 40 Session Start Time : 744 Session Stop Time : 824 Cuong Monroy PT documented in this encounter [facility] 11-26-2024 History of Presen t illness Narrative Program_ID:[id number] Access Code: [email or web address] URL: [email or web address] Date: 11-26-2024 Prepared By: Alexis Anderson Program Notes Exercises - Sleeper Stretch - 2 x daily - 7 x weekly - 2 sets - 3 reps - Supine Shoulder Internal Rotation Stretch - 2 x daily - 7 x weekly - 2 sets - 3-4 reps - Prone Single Arm Shoulder Y with Dumbbell - 2 x daily - 7 x weekly - 2-3 sets - 10 reps - Prone Single Arm Shoulder Horizontal Abduction with Dumbbell - 2 x daily - 7 x weekly - 2-3 sets - 10 reps - Seated Bilateral Shoulder Scaption with Dumbbells - 2 x daily - 7 x weekly - 2-3 sets - 10-15 reps - Shoulder Flexion Serratus Activation with Resistance - 2 x daily - 7 x weekly - 2-3 sets - 10-15 reps - Shoulder External Rotation with Anchored Resistance - 2 x daily - 5-7 x weekly - 2 sets - 10 reps - Shoulder Internal Rotation with Resistance - 2 x daily - 7 x weekly - 2-3 sets - 10 reps - Prone Shoulder Flexion with Dumbbell - 2 x daily - 7 x weekly - 2-3 sets - 10 reps Images from the original note were not included. Episode Visit Count: 8 Therapist That Will Accept/Oversee The Plan Of Care: Alexis Anderson, PT. Start of Care Date: 09/22/24 Onset Date: 09/17/19 Plan of Care Certification Date: 09/22/24 Next Certification Due Date: 12/05/24 Patient Identified by Name and Date of : Yes REHABILITATION AND SPORTS THERAPY PHYSICAL THERAPY DISCONTINUANCE OF CARE PLAN OF CARE UPDATE: Assessment: Mateus Manzano is discontinued from Physical Therapy services due to goal achievement.. Patient was seen for 8 visits from Start of Care Date: 09/22/24 to 11/26/2024 and treatment included: Therapeutic exercise and Manual therapy. Updated: 10/24/24, 11/26/24. Goals for Episode of Care: established 09/16/24 Patient reported outcome of physical function will increase T-score by a minimum 5 points. (Goal Met) [place] in home exercise program. (Goal Met) Patient will decrease pain rating by 2 points to meet minimal clinical important difference for numeric pain rating scale. (Goal Met) Patient will increase pain-free active ROM of B Shoulders to allow pt to to improve performance of ADLs/IADLs.(Goal Met) Patient will demonstrate increase in B Shoulder strength to 5/5 MMT during manual muscle testing in order to improve function for light functional tasks, home management tasks, prior functional tasks, and work tasks. (Goal Met) Patient will perform work related activities with no restriction or pain/symptoms. (Goal Met) Patient will endorse improved B Shoulder Pain and Function for improved QOL. (Goal Met) Sleep through night without pain/symptoms. (Goal Met) Patient Goals: Alleviate Pain. (Goal Met) SUBJECTIVE: Patient reports shoulders are doing really good; sore the other day from throwing firewood with increased reps; reports didn't have to take anything for it. Soreness lasted to the end of the day. Did good following DN last visit. Pain: Pain Pain Level: 0 Pain Location: Shoulder - Left, Shoulder - Right PROMIS Scales 11/26/2024 11/20/2024 10/24/2024 Higher is Better Phys Func - T Score 51 (within normal limits) 45 (within normal limits) Phys Func - Percentile 54 31 Self-Eff Symptom - T Score 57 (Average) Self-Eff Symptom - Percentile 76 Mobility - T Score 36 (moderate dysfunction) Mobility - Percentile 8 Proxy-reported 11/15/2022 10/02/2022 08/31/2022 Lower is Better Pain Interference - T Score 61 (moderate) 66 (moderate) 62 (moderate) Pain Interference - Percentile 14 5 12 T-scores: mean of general population = 50. 5 points is clinically meaningfully difference Percentiles provide an indication of how the patient's score ranks in relation to the general population. Higher percentile rankings indicate better function/quality of life. 50th percentile is the average of the general population and indicates half of respondents had a worse score. OBJECTIVE MEASURES WITH LEVEL OF FUNCTION: UE AROM R Shoulder Flex: 180 Degrees R Shoulder ABduction: 180 Degrees R Shoulder Internal Rotation (Functional): T8 R Shoulder External Rotation: 80 Degrees R Shoulder External Rotation (Functional): T4 L Shoulder Flex: 180 Degrees L Shoulder ABduction: 180 Degrees L Shoulder Internal Rotation (Functional): T8 L Shoulder External Rotation: 80 Degrees L Shoulder External Rotation (Functional): T4 UE and Cervical Strength R UE Strength: No pain reported L UE Strength: No pain reported R Shoulder Flexion: 5/5 (24.8HHD) R Shoulder Abduction (C5): 5/5 (19.4 HHD.) R Shoulder Internal Rotation: 5/5 R Shoulder External Rotation: 5/5 (22.4 HHD) R Shoulder Horizontal ABduction: 5/5 L Shoulder Flexion: 5/5 (23.6 HHD.) L Shoulder Abduction (C5): 5/5 (18.7 HHD) L Shoulder Internal Rotation: 5/5 L Shoulder External Rotation: 5/5 (22.0 HHD) L Shoulder Horizontal ABduction: 5/5 TREATMENT: Therapeutic Exercise: 1: *Re-assessment & objjectives collected. Discuss patients condition and progress. Compared objejctives to IE. 2: *HEP was reviewed & added to. The patient was instructed to continue with HEP to tolerance. The patient was educated in progressions to parameters and the exercises provided. New handout provided. Patient will reach out with any further questions to progressions. 3: *All patient questions were welcomed and answered to satisfaction. 4: *Patient understands and agrees with plan of care indep. discussed and agrees with discontinuance of care this date. Will cancel next weeks appt. Skilled Intervention: Patient was educated in proper exercise technique and purpose for exercises. Reviewed and educated patient on additions/changes for home exercise program as above (*). Skilled judgment was used in selection of appropriate interventions. Provided written instruction for home exercise program to facilitate proper performance and compliance. Correct performance of therapeutic exercises was facilitated with verbal, visual, and tactile cuing. Patient education as noted. Billing Therapeutic Exercise Treatment Minutes: 45 Skilled Treatment Time Minutes (timed and untimed codes): 45 Total Session Time (minutes): 45 Session Start Time : 0700 Session Stop Time : 45 Alexis Anderson PT documented in this encounter [facility] 11-26-2024 Note [facility] 11-24-2024 Note HNO ID: [id number] Author: CUONG MONROY PT Service: ? Author Type: Physical Therapist Type: Progress Notes Filed: 11/24/2024 09:47 Note Text: Episode Visit Count: 9 Therapist That Will Accept/Oversee The Plan Of Care: Jonathan Monroy Start of Care Date: 09/22/24 Onset Date: 09/17/19 Plan of Care Certification Date: 09/22/24 Next Certification Due Date: 12/21/24 [facility]ER[facility] PHYSICAL THERAPY TREATMENT NOTE ASSESSMENT: Mateus Manzano tolerated the session with shortness of breath, decreased endurance, and fatigue. He demonstrated difficulty with left foot drag today but left knee collapse today was not as prevalent. The patient will continue to benefit from ongoing skilled physical therapy to progress toward set goals. PLAN FOR NEXT VISIT: Bioness left thigh and left lower leg, continue with crutch training SUBJECTIVE: I didn't sleep very good last night Pain: OBJECTIVE MEASURES WITH LEVEL OF FUNCTION: TREATMENT: Neuromuscular Re-Education: 1: Gait with bilateral forearm crutches 2: - 70ft X1 with CGA and wheelchair follow cues for step length 3: - 90ft X1 with CGA and wheelchair follow cues for step length 4: - 110ft X1 with CGA and wheelchair follow cues for step length 5: - 60ft X 1 with CGA and Wheelchair follow Skilled Intervention: Skilled judgment used to assess appropriate program for balance and coordination activity. Education in proprioceptive/kinesthetic awareness during dynamic activities. Billing Neuromuscular Re-Education Treatment Minutes: 45 Skilled Treatment Time Minutes (timed and untimed codes): 45 Total Session Time (minutes): 45 Session Start Time : 744 Session Stop Time : 829 Cuong Monroy PT [facility] 11-24-2024 History of Presen t illness Narrative Episode Visit Count: 9 Therapist That Will Accept/Oversee The Plan Of Care: Jonathan Monroy Start of Care Date: 09/22/24 Onset Date: 09/17/19 Plan of Care Certification Date: 09/22/24 Next Certification Due Date: 12/21/24 REHABILITATION AND SPORTS THERAPY PHYSICAL THERAPY TREATMENT NOTE ASSESSMENT: Mateus Manzano tolerated the session with shortness of breath, decreased endurance, and fatigue. He demonstrated difficulty with left foot drag today but left knee collapse today was not as prevalent. The patient will continue to benefit from ongoing skilled physical therapy to progress toward set goals. PLAN FOR NEXT VISIT: Bioness left thigh and left lower leg, continue with crutch training SUBJECTIVE: I didn't sleep very good last night Pain: OBJECTIVE MEASURES WITH LEVEL OF FUNCTION: TREATMENT: Neuromuscular Re-Education: 1: Gait with bilateral forearm crutches 2: - 70ft X1 with CGA and wheelchair follow cues for step length 3: - 90ft X1 with CGA and wheelchair follow cues for step length 4: - 110ft X1 with CGA and wheelchair follow cues for step length 5: - 60ft X 1 with CGA and Wheelchair follow Skilled Intervention: Skilled judgment used to assess appropriate program for balance and coordination activity. Education in proprioceptive/kinesthetic awareness during dynamic activities. Billing Neuromuscular Re-Education Treatment Minutes: 45 Skilled Treatment Time Minutes (timed and untimed codes): 45 Total Session Time (minutes): 45 Session Start Time : 744 Session Stop Time : 829 Cuong Monroy PT documented in this encounter [facility] 11-20-2024 Note HNO ID: [id number] Author: CUONG MONROY PT Service: ? Author Type: Physical Therapist Type: Progress Notes Filed: 11/20/2024 08:36 Note Text: Episode Visit Count: 8 Therapist That Will Accept/Oversee The Plan Of Care: Jonathan Monroy Start of Care Date: 09/22/24 Onset Date: 09/17/19 Plan of Care Certification Date: 09/22/24 Next Certification Due Date: 12/21/24 REHABILITATION AND SPORTS THERAPY PHYSICAL THERAPY TREATMENT NOTE ASSESSMENT: Mateus Manzano tolerated the session with decreased endurance and fatigue. He demonstrated improvements in overall endurance this session as well as improved functional balance with use of crutches today. Patient also appears to have improve HS flexibility compared to previous sessions. The patient will continue to benefit from ongoing skilled physical therapy to progress toward set goals. PLAN FOR NEXT VISIT: Louise left thigh and left lower leg, continue with crutch training SUBJECTIVE: Had a UTI and was on antibiotics, was not able to get recent round of botox due to being on antibiotics. Pain: OBJECTIVE MEASURES WITH LEVEL OF FUNCTION: TREATMENT: Neuromuscular Re-Education: 1: Bioness left lower extremity with adjusment made for functional gait 2: - FWW 130ft X1 with adjustments made to bioness throughout, improved LE stance phase noted bilaterally 3: Use of forearm Crutches: 4: - 70'x1, 90ftX1 with cheelchair follow and CGA with cues for stability and gait 5: - patient attempted to walk few steps without AD 6: Educated patient on walking with cructhes at home as well as continuing to work on quad strength from perced sitting, squats and step ups on bottom step Skilled Intervention: Skilled judgment used to assess appropriate program for balance and coordination activity. Education in proprioceptive/kinesthetic awareness during dynamic activities. Billing Neuromuscular Re-Education Treatment Minutes: 35 Skilled Treatment Time Minutes (timed and untimed codes): 35 Total Session Time (minutes): 41 Session Start Time : 746 Session Stop Time : 827 Cuong Monroy PT [facility] 11-20-2024 History of Presen t illness Narrative Episode Visit Count: 8 Therapist That Will Accept/Oversee The Plan Of Care: Jonathan Monroy Start of Care Date: 09/22/24 Onset Date: 09/17/19 Plan of Care Certification Date: 09/22/24 Next Certification Due Date: 12/21/24 REHABILITATION AND SPORTS THERAPY PHYSICAL THERAPY TREATMENT NOTE ASSESSMENT: Mateus Manzano tolerated the session with decreased endurance and fatigue. He demonstrated improvements in overall endurance this session as well as improved functional balance with use of crutches today. Patient also appears to have improve HS flexibility compared to previous sessions. The patient will continue to benefit from ongoing skilled physical therapy to progress toward set goals. PLAN FOR NEXT VISIT: Bioness left thigh and left lower leg, continue with crutch training SUBJECTIVE: Had a UTI and was on antibiotics, was not able to get recent round of botox due to being on antibiotics. Pain: OBJECTIVE MEASURES WITH LEVEL OF FUNCTION: TREATMENT: Neuromuscular Re-Education: 1: Bioness left lower extremity with adjusment made for functional gait 2: - FWW 130ft X1 with adjustments made to bioness throughout, improved LE stance phase noted bilaterally 3: Use of forearm Crutches: 4: - 70'x1, 90ftX1 with cheelchair follow and CGA with cues for stability and gait 5: - patient attempted to walk few steps without AD 6: Educated patient on walking with cructhes at home as well as continuing to work on quad strength from perced sitting, squats and step ups on bottom step Skilled Intervention: Skilled judgment used to assess appropriate program for balance and coordination activity. Education in proprioceptive/kinesthetic awareness during dynamic activities. Billing Neuromuscular Re-Education Treatment Minutes: 35 Skilled Treatment Time Minutes (timed and untimed codes): 35 Total Session Time (minutes): 41 Session Start Time : 746 Session Stop Time : 827 Cuong Monroy PT documented in this encounter [facility] 11-19-2024 Note [facility] 11-19-2024 History of Presen t illness Narrative Episode Visit Count: 7 Therapist That Will Accept/Oversee The Plan Of Care: Alexis Anderson PT. Start of Care Date: 09/22/24 Onset Date: 09/17/19 Plan of Care Certification Date: 09/22/24 Next Certification Due Date: 12/05/24 Patient Identified by Name and Date of : Yes REHABILITATION AND SPORTS THERAPY PHYSICAL THERAPY TREATMENT NOTE ASSESSMENT: Mateus Manzano tolerated the session with expected muscle soreness. He demonstrated fatigue with OH shoulder resistive exercises this date. The patient will continue to benefit from ongoing skilled physical therapy to progress toward set goals. PLAN FOR NEXT VISIT: Assess response to DN; progress strength and shoulder tightness; [place] 12/03/24. SUBJECTIVE: Left neck/shoulder area feels better following DN last week. Was sore for a couple days following DN. Pain: Pain Pain Level: 0 Pain Location: Shoulder - Left, Shoulder - Right Description: Tightness OBJECTIVE MEASURES WITH LEVEL OF FUNCTION: UE AROM R Shoulder Flex: 180 Degrees L Shoulder Flex: 180 Degrees TREATMENT: Therapeutic Exercise: 1: Seated Flexion Raises to 120: 3x12, GTB around wrists. 2: Shoulder Pulses: 3x12, GTB around wris 3: Seated Concentric Scaption with contralateral iso scaption hold: 3x8, 5#. 4: Seated B Concentric Scaption: 3x8, 3#. Skilled Intervention: Patient was educated in proper exercise technique and purpose for exercises. Skilled judgment was used in selection of appropriate interventions. Correct performance of therapeutic exercises was facilitated with verbal, visual, and tactile cuing. Manual Therapy: 1: Superficial Dry Needling & Twisting to B Greater Tubercle and Biceps Tendon at Bicep Groove: 2 [place] Each Side, 1 per respective location. .[id number]. 4 [place] Placed, 4 [place] Withdrawn. Soft Tissue Mobilization: STM to B Supraspinatus and palpation examination for trigger points,: Push to tolerance. Dry Needling: Dry needling to following Trigger points: B Supraspinatus. Needle length: .[id number]. Two needles each side. [place] used 4, needles removed 4. Dry needling technique used: Pistoning, Fanning, and Deep needling. Sidelying position. (Improved chief complaint of pinching w/ OH elevation.) Skilled Intervention: Manual skills to improve joint mobility, ROM, and decrease pain. Utilized anatomy knowledge of the clinician, and assessment of patient's response to intervention. Billing Therapeutic Exercise Treatment Minutes: 23 Manual TherapyTreatment Minutes: 17 Skilled Treatment Time Minutes (timed and untimed codes): 40 Total Session Time (minutes): 40 Session Start Time : 0700 Session Stop Time : 07 Alexis Anderson PT documented in this encounter [facility] 11-17-2024 Telephone encounter Note I spoke to the patient. We will reschedule his appointment to December 15 at 9 am. Antibiotics may potentiate Botox injections. Currently, hip flexion tightness is controlled. [facility] Work Phone: 11-17-2024 Miscellaneous Notes I spoke to the patient. We will reschedule his appointment to December 15 at 9 am. Antibiotics may potentiate Botox injections. Currently, hip flexion tightness is controlled. documented in this encounter [facility] 11-15-2024 Telephone encounter Note MyChart message sent to Patient with providers note, He is active on his chart as of 11/14/24. Dariana Concepcion LPN [facility] 11-15-2024 Miscellaneous Notes [employer] message sent to Patient with providers note, He is active on his chart as of 11/14/24. Dariana Concepcion LPN Please inform patient that urine culture did reveal bacterial infection. Bactrim will cover bacteria. Continue antibiotics as prescribed at visit. Tez Ibarra APRN.EUNICE documented in this encounter [facility] 11-15-2024 Telephone encounter Note Please inform patient that urine culture did reveal bacterial infection. Bactrim will cover bacteria. Continue antibiotics as prescribed at visit. Tez Ibarra APRN.TELEVISION DIRECTOR [facility] Work Phone: 11-14-2024 Note [facility] 11-14-2024 History of Presen t illness Narrative Consultation requested by Dr. Roque for an opinion regarding toenail deformity. My final recommendations will be communicated back to the requesting physician by way of shared Medical record or letter to requesting physician via US mail. Shira Perez is a 39-year-old male with a history of spinal cord injury, presenting with brittle toenails. Brittle Toenails: - Brittle, thickened toenails on both feet, x2 years. - Affected toenails: 1st, 2nd, 4th, and 5th on the right foot; 1st, 3rd, 4th, and 5th on the left foot. - Tried [id number] antifungal creams with no improvement. - Denies pain or discomfort. - No history of trauma to the toenails. Spinal Cord Injury: - Incomplete spinal cord injury secondary to MRSA infection from a scratch in 2012. - Confined to a wheelchair but can walk short distances. - Experiences occasional leg weakness and lack of coordination. Smoking: - Smokes approximately one pack of cigarettes per day. - Long-term smoker. Cardiovascular: (+) cold feet Musculoskeletal: (-) nocturnal leg cramps Skin: (+) brittle toenails, (-) nail pain Neurological: (+) intermittent leg weakness PAST MEDICAL HISTORY Diagnosis Date Asthma ([facility]) 08/05/2021 Clotting disorder ([facility]) HUGH-1 DVT (deep venous thrombosis) ([facility]) 2012 ED (erectile dysfunction) Factor 5 Leiden mutation, heterozygous ([facility]) History of spinal cord injury 03/03/2015 Lower urinary tract infectious disease Methylenetetrahydrofolate reductase (MTHFR) gene mutation MRSA (methicillin resistant Staphylococcus aureus) 10/2012 spine Neurogenic bladder self straight catheterization KARAN (obstructive sleep apnea) pt never got a cpap; pt unsure if he needed one KARAN (obstructive sleep apnea) 08/05/2021 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 Recurrent UTI Sepsis ([facility]) 02/20/2021 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 14 tablet 0 baclofen 20 mg tablet Take 2 tablets by mouth two times a day. 120 tablet 5 ergocalciferol 50,000 unit capsule (VITAMIN D2, DRISDOL) Take 1 capsule by mouth two times a week. TO BE TAKEN ORALLY DIRECTED. Take 1 tablet by mouth twice weekly [id number], then decrease to 1 tablet weekly. 24 capsule 1 clomiPHENe (CLOMID) 50 mg tablet Take 1 tablet by mouth every other day. 90 tablet 5 sildenafil (REVATIO) 20 mg tablet TAKE 1 TABLET BY MOUTH DIRECTED (may take up to 5 (FIVE) TABLETS 1 (ONE) hour prior to sexual activity) 30 tablet 5 diazePAM (VALIUM) 2 mg tablet Take 1 tablet twice daily and 2 tablets at bedtime 120 tablet 5 XARELTO 20 mg tablet Take 1 tablet by mouth once daily. Patient should start on July 22, 2024. 30 tablet 11 hydrOXYzine pamoate (VISTARIL) 25 mg capsule Take 1 capsule by mouth three times a day as needed for itching/rash or anxiety. 30 capsule 1 ondansetron orally disintegrating (ZOFRAN ODT) 4 mg disintegrating tablet Take 1 tablet by mouth every 8 hours as needed for nausea/vomiting. 15 tablet 2 montelukast (SINGULAIR) 10 mg tablet Take 1 tablet by mouth daily at bedtime. 30 tablet 5 morphine SR (MS CONTIN, ORAMORPH SR) 15 mg 12 hr tablet Take 1 tablet by mouth every 12 hours for 5 days. 10 tablet 0 acetaminophen (TYLENOL EXTRA STRENGTH) 500 mg tablet Take 2 tablets by mouth every 6 hours as needed for pain. 30 tablet 0 Pregabalin (LYRICA) 200 mg capsule Take 200 mg by mouth twice daily. lidocaine (XYLOCAINE) 5 % ointment Apply to affected area as needed. terbinafine HCl (LAMISIL) 250 mg tablet Take 1 tablet by mouth once daily. 30 tablet 2 nicotine (NICODERM) 21 mg/24 hr Apply 1 patch as directed every 24 hours. 30 patch 1 [START ON 11/30/2024] nicotine (NICODERM) 14 mg/24 hr Apply 1 patch as directed every 24 hours. Patient should start on November 30, 2024. 30 patch 0 [START ON 12/30/2024] nicotine (NICODERM) 7 mg/24 hr Apply 1 patch as directed every 24 hours. Patient should start on December 30, 2024. 30 patch 0 albuterol (PROVENTIL) 2.5 mg /3 mL (0.083 %) nebulizer solution Use 3 mL via nebulizer every 6 hours as needed for wheezing/shortness of breath. 60 mL 1 Current Facility-Administered Medications Medication Dose Route Frequency Provider Last Rate Last Admin ondansetron (PF) 4 mg injection (ZOFRAN) 4 mg INTRAVENOUS PRN Eitan Hernandez DO Family History Problem Relation Age of Onset Diabetes Father other (factor v leiden) Father homozigus carries mthfr other (factor v leiden) Mother homozigus carries pie 1 Cancer Paternal Grandfather Heart disease Paternal Grandfather Cancer Paternal Grandmother leukemia Heart Paternal Grandmother Anesthesia Problems No Family History Objective There were no vitals taken for this visit. - Cardiovascular: DP and PT pulses non-palpable bilaterally; capillary refill time <5 seconds; skin temperature warm to cool bilaterally; rubrous discoloration to feet with dependency; absent hair growth. - Musculoskeletal: - Bilateral Feet: Manual muscle testing 4/5 for dorsiflexion, plantarflexion, inversion, and eversion. - Skin: - Toenails 1, 2, 4, and 5 on the right foot and toenails 1, 3, 4, and 5 on the left foot demonstrate yellow discoloration, increased thickening, and dystrophic appearance; left second toenail and right third toenail are relatively normal in appearance; no ulcerations noted on bilateral feet. - Neurological: Protective sensation intact. Labs: (Today) Fungal Culture (Toenail Clipping): Results pending (September) Blood Work: - AST: 20 U/L - ALT: 28 U/L - Alkaline phosphatase: 77 U/L - Interpretation: Within normal limits Assessment & Plan 1. Onychomycosis (B35.1) - Significant thickening and dystrophic appearance of toenails 1, 2, 4, and 5 on the right foot and 1, 3, 4, and 5 on the left foot; yellow discoloration noted. Differential diagnosis includes fungal infection. - Obtained nail clippings for fungal culture; results may take up to a month. discussed waiting for fungal culture vs starting medication. patient wishes to start medication. - Initiated Lamisil 250 mg orally once daily for 3 months. Discussed potential side effects including yellowing of the skin or eyes, rash, abdominal discomfort, and metallic taste. - Recent liver function tests (September) show normal AST (20), ALT (28), and alkaline phosphatase (77). - Recheck liver function tests in 1 month and again at 3 months. - Discussed alternative treatments including topical antifungals, laser treatment, and permanent nail removal. - Patient understands and agrees with the treatment plan. Recording using [employer] software for draft documentation of the visit was discussed with the patient/authorized inside account representative; all questions welcomed and answered. Patient/authorized inside account representative agreed to proceed Jackson Ralph DPM documented in this encounter [facility] 11-14-2024 Instructions Jackson Ralph - 11/14/2024 10:15 AM EDT - Start taking Lamisil (terbinafine) 250 mg by mouth once daily for 3 months; prescription sent to [facility] ([place]). - Get liver function blood tests one month after starting Lamisil and again at the end of treatment (3 months). - Watch for side effects such as yellowing of your skin or eyes, rash, abdominal discomfort, or a metallic taste; stop the medication and contact our office if you notice any of these. - Wear socks over your feet regularly to help prevent spreading a possible fungal infection. - Nail clippings were sent for fungal culture; results may take up to one month and will guide any further changes to your treatment. documented in this encounter [facility] 11-13-2024 Note Addended by: DARIANA CONCEPCION on: 11/13/2024 10:35 AM Modules accepted: Orders [facility] 11-13-2024 Miscellaneous Notes Addended by: DARIANA CONCEPCION on: 11/13/2024 10:35 AM Modules accepted: Orders documented in this encounter [facility] 11-13-2024 Note [facility] 11-13-2024 History of Presen t illness Narrative [facility] Subjective HPI HPI Mateus Manzano is a 39 year old male who presents today for CC of urinary frequency, urgency, fever, chills, body aches. This started 1 day ago. Has tried otc medication for relief. Symptoms are worsened by nothing. Risk factors hx of complicated uti, self cath, neurogenic bladder. .Patient presents with: Urinary Problem: Body aches, chills, weakness, since last evening PAST MEDICAL HISTORY Diagnosis Date Asthma ([facility]) 08/05/2021 Clotting disorder ([facility]) HUGH-1 DVT (deep venous thrombosis) ([facility]) 2012 ED (erectile dysfunction) Factor 5 Leiden mutation, heterozygous ([facility]) History of spinal cord injury 03/03/2015 Lower urinary tract infectious disease Methylenetetrahydrofolate reductase (MTHFR) gene mutation MRSA (methicillin resistant Staphylococcus aureus) 10/2012 spine Neurogenic bladder self straight catheterization KARAN (obstructive sleep apnea) pt never got a cpap; pt unsure if he needed one KARAN (obstructive sleep apnea) 08/05/2021 other HUGH-1 gene Paraplegia following spinal cord injury ([facility]) 2012 Recurrent UTI Sepsis ([facility]) 02/20/2021 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[facility]) PAST SURGICAL HISTORY Procedure Laterality Date IMPLTJ/RPLCMT ITHCL/EDRL DRUG NFS PRGRBL PUMP 03/02/2015 SynchroMed II, 40 ml pump with catheter tip at T9 - Informed consent sigend on 03/03/15 (paper form) IMPLTJ/RPLCMT ITHCL/EDRL DRUG NFS PRGRBL PUMP 10/13/2016 Revision of ITB catheter due to malfunction PAST SURGICAL HISTORY OF 11/09/2012 laminectomy T-4-T-12 PAST SURGICAL HISTORY OF 2002 ORIF with pins right hand PAST SURGICAL HISTORY OF 2012 filter placement for DVT PAST SURGICAL HISTORY OF percutaneous vascular procedure PAST SURGICAL HISTORY OF neck surgery REVISE MEDIAN N/CARPAL TUNNEL SURG Bilateral 2019 ALLERGIES Ulxfopuoleye-Rawtdfeoxf-Ksdiff, Zosyn [Piperacillin-Tazobactam], Hydrocodone-Acetaminophen, Piperacillin, Tazobactam, and Codeine MEDICATIONS baclofen 20 mg tablet^Take 2 tablets by mouth two times a day.^Disp: 120 tablet^Rfl: 5 ergocalciferol 50,000 unit capsule (VITAMIN D2, DRISDOL)^Take 1 capsule by mouth two times a week. TO BE TAKEN ORALLY DIRECTED. Take 1 tablet by mouth twice weekly [id number], then decrease to 1 tablet weekly.^Disp: 24 capsule^Rfl: 1 nicotine (NICODERM) 21 mg/24 hr^Apply 1 patch as directed every 24 hours.^Disp: 30 patch^Rfl: 1 [START ON 11/30/2024] nicotine (NICODERM) 14 mg/24 hr^Apply 1 patch as directed every 24 hours. Patient should start on November 30, 2024.^Disp: 30 patch^Rfl: 0 [START ON 12/30/2024] nicotine (NICODERM) 7 mg/24 hr^Apply 1 patch as directed every 24 hours. Patient should start on December 30, 2024.^Disp: 30 patch^Rfl: 0 clomiPHENe (CLOMID) 50 mg tablet^Take 1 tablet by mouth every other day.^Disp: 90 tablet^Rfl: 5 sildenafil (REVATIO) 20 mg tablet^TAKE 1 TABLET BY MOUTH DIRECTED (may take up to 5 (FIVE) TABLETS 1 (ONE) hour prior to sexual activity)^Disp: 30 tablet^Rfl: 5 diazePAM (VALIUM) 2 mg tablet^Take 1 tablet twice daily and 2 tablets at bedtime^Disp: 120 tablet^Rfl: 5 XARELTO 20 mg tablet^Take 1 tablet by mouth once daily. Patient should start on July 22, 2024.^Disp: 30 tablet^Rfl: 11 hydrOXYzine pamoate (VISTARIL) 25 mg capsule^Take 1 capsule by mouth three times a day as needed for itching/rash or anxiety.^Disp: 30 capsule^Rfl: 1 albuterol (PROVENTIL) 2.5 mg /3 mL (0.083 %) nebulizer solution^Use 3 mL via nebulizer every 6 hours as needed for wheezing/shortness of breath.^Disp: 60 mL^Rfl: 1 ondansetron orally disintegrating (ZOFRAN ODT) 4 mg disintegrating tablet^Take 1 tablet by mouth every 8 hours as needed for nausea/vomiting.^Disp: 15 tablet^Rfl: 2 montelukast (SINGULAIR) 10 mg tablet^Take 1 tablet by mouth daily at bedtime.^Disp: 30 tablet^Rfl: 5 morphine SR (MS CONTIN, ORAMORPH SR) 15 mg 12 hr tablet^Take 1 tablet by mouth every 12 hours for 5 days.^Disp: 10 tablet^Rfl: 0 acetaminophen (TYLENOL EXTRA STRENGTH) 500 mg tablet^Take 2 tablets by mouth every 6 hours as needed for pain.^Disp: 30 tablet^Rfl: 0 Pregabalin (LYRICA) 200 mg capsule^Take 200 mg by mouth twice daily.^Disp: ^Rfl: lidocaine (XYLOCAINE) 5 % ointment^Apply to affected area as needed.^Disp: ^Rfl: sulfamethoxazole-trimethoprim (BACTRIM DS) 800-160 mg per tablet^Take 1 tablet by mouth two times a day for 7 days.^Disp: 14 tablet^Rfl: 0 FAMILY HISTORY Problem Relation Age of Onset Diabetes Father other (factor v leiden) Father homozigus carries mthfr other (factor v leiden) Mother homozigus carries pie 1 Cancer Paternal Grandfather Heart disease Paternal Grandfather Cancer Paternal Grandmother leukemia Heart Paternal Grandmother Anesthesia Problems No Family History Social History Tobacco Use Smoking status: Every Day Current packs/day: 1.00 Average packs/day: 1 pack/day for 18.0 years (18.0 ttl pk-yrs) Types: Cigarettes Passive exposure: Current Smokeless tobacco: Former Types: Chew Quit date: 01/19/2005 Vaping Use Vaping status: Never Used Substance Use Topics Alcohol use: Yes Comment: rarely Drug use: No Review of Systems Constitutional: Positive for chills, fatigue and fever. Cardiovascular: Negative for chest pain. Gastrointestinal: Negative for abdominal pain, constipation, diarrhea, nausea and vomiting. Genitourinary: Positive for dysuria and frequency. Negative for flank pain and urgency. Musculoskeletal: Negative for back pain. Objective BP 115/73 Pulse 103 Temp 37.6 C (99.6 F) Resp 20 SpO2 97% Physical Exam Constitutional: General: He is not in acute distress. Appearance: Normal appearance. He is not toxic-appearing. Cardiovascular: Rate and Rhythm: Normal rate and regular rhythm. Heart sounds: Normal heart sounds. Pulmonary: Effort: Pulmonary effort is normal. Breath sounds: Normal breath sounds. Abdominal: General: Bowel sounds are normal. Palpations: Abdomen is soft. Tenderness: There is no abdominal tenderness. There is no right CVA tenderness or left CVA tenderness. Skin: General: Skin is warm and dry. {ASSESSMENT/PLAN: 1. Fever, unspecified fever cause - ICD9: 780.60, ICD10: R50.9 (primary diagnosis) Cover for uti Worsening s/s go to ER -advised to f/u with urology - UA DIP, URINE (POC) 2. Urinary frequency - ICD9: 788.41, ICD10: R35.0 acute - UA negative Will treat based on s/s Recently had negative ua and ended in complicated uti with ER visit - SULFAMETHOXAZOLE 800 MG-TRIMETHOPRIM 160 MG TABLET Carlie Gustafson APRN.CNP History and Record Review External record(s) reviewed: prior outpatient record. Findings from review of outpatient records: recurrent uti Systemic symptoms present included: Body aches, chills Disposition The patient was discharged. Procedures documented in this encounter [facility] 11-12-2024 Note [facility] 11-12-2024 History of Presen t illness Narrative Episode Visit Count: 6 Therapist That Will Accept/Oversee The Plan Of Care: Alexis Anderson PT. Start of Care Date: 09/22/24 Onset Date: 09/17/19 Plan of Care Certification Date: 09/22/24 Next Certification Due Date: 12/05/24 Patient Identified by Name and Date of : Yes REHABILITATION AND SPORTS THERAPY PHYSICAL THERAPY TREATMENT NOTE ASSESSMENT: Mateus Manzano tolerated the session with decreased symptoms and expected post-DN muscle soreness. He demonstrated improvements in L UT pain + tightness and cervical rom. The patient will continue to benefit from ongoing skilled physical therapy to progress toward set goals. PLAN FOR NEXT VISIT: [place] 11/26/24. SUBJECTIVE: States he messed up yesterday doing the exercises and maybe pushed to far causing some strain/tightness and pointing to the L UT/Supra region. STates doing a little bit too much weight and reps. States ROM nothing is painful anymore. Pain: Pain Pain Level: 2 Pain Location: Shoulder - Left Description: Sore, Tightness OBJECTIVE MEASURES WITH LEVEL OF FUNCTION: Localized Twitch Response appreciated & observed with DN to respective muscles. TREATMENT: Therapeutic Exercise: 1: Seated Arrows: 3x12, BTB. (*Cued for no shrug.) 2: Seated Rows: 3x12, BTB. 3: Seated T's: 3x12, BTB. 7: *Discussed Referral patterns for the UT. Discussed what DN does for muscle tightness and what a twitch response is. 8: *Discussed watching out for shrug sign at home with shoulder elevation exercises. Skilled Intervention: Patient was educated in proper exercise technique and purpose for exercises. Skilled judgment was used in selection of appropriate interventions. Correct performance of therapeutic exercises was facilitated with verbal and tactile cuing. Patient education as noted. Manual Therapy: 1: TPR to L UT: x10. Soft Tissue Mobilization: STM to L UT and UT Stripping: Push to tolerance. Dry Needling: Dry needling to following Trigger points: To L UT. Needle length: .[id number] . [place] used 3, needles removed 3. Dry needling technique used: Pistoning, Fanning, and Deep needling. Supine position. Patient education on purpose, precautions, safety, risks, and other treatment options regarding dry needling. Verbal consent received. (Improved neck tightness relief and improved ROM following.) Skilled Intervention: Manual skills to improve joint mobility, ROM, and decrease pain. Utilized anatomy knowledge of the clinician, and assessment of patient's response to intervention. Billing Therapeutic Exercise Treatment Minutes: 23 Manual TherapyTreatment Minutes: 17 Skilled Treatment Time Minutes (timed and untimed codes): 40 Total Session Time (minutes): 44 Session Start Time : 0700 Session Stop Time : 743 Alexis Anderson PT, DPT. documented in this encounter [facility] 11-07-2024 Note [facility] 11-03-2024 Note HNO ID: [id number] Author: CUONG MONROY PT Service: ? Author Type: Physical Therapist Type: Progress Notes Filed: 11/03/2024 11:10 Note Text: Episode Visit Count: 7 Therapist That Will Accept/Oversee The Plan Of Care: Jonathan Monroy Start of Care Date: 09/22/24 Onset Date: 09/17/19 Plan of Care Certification Date: 09/22/24 Next Certification Due Date: 12/21/24 REHABILITATION AND SPORTS THERAPY PHYSICAL THERAPY TREATMENT NOTE ASSESSMENT: Mateus Manzano tolerated the session with decreased endurance, fatigue, and expected muscle soreness. He demonstrated difficulty with maintaining endurance on the TM and used mostly upper body strength but did have one trial where he did not use his hand as much. The patient will continue to benefit from ongoing skilled physical therapy to progress toward set goals. PLAN FOR NEXT VISIT: TM without lite gait and bioness for gait progressions, crutches with use of bioness SUBJECTIVE: I am doing ok, lets do this Pain: OBJECTIVE MEASURES WITH LEVEL OF FUNCTION: TREATMENT: Neuromuscular Re-Education: 1: Bioness left lower extremity with adjusment made for functional gait 2: TM 0.8 MPH X2 minutes with left foot drop noted despite bioness 3: TM 0.8 MPH X2 minutes with less hand held support than previous session. 4: TM 1.0 MPH X1 minutes with cues for step length Skilled Intervention: Skilled judgment used to assess appropriate program for balance and coordination activity. Education in proprioceptive/kinesthetic awareness during dynamic activities. Ten Neuromuscular Re-Education Treatment Minutes: 40 Skilled Treatment Time Minutes (timed and untimed codes): 40 Total Session Time (minutes): 40 Session Start Time : 919 Session Stop Time : 1000 Cuong Monroy PT [facility] 11-03-2024 History of Presen t illness Narrative Episode Visit Count: 7 Therapist That Will Accept/Oversee The Plan Of Care: Jonathan Monroy Start of Care Date: 09/22/24 Onset Date: 09/17/19 Plan of Care Certification Date: 09/22/24 Next Certification Due Date: 12/21/24 REHABILITATION AND SPORTS THERAPY PHYSICAL THERAPY TREATMENT NOTE ASSESSMENT: Mateus Manzano tolerated the session with decreased endurance, fatigue, and expected muscle soreness. He demonstrated difficulty with maintaining endurance on the TM and used mostly upper body strength but did have one trial where he did not use his hand as much. The patient will continue to benefit from ongoing skilled physical therapy to progress toward set goals. PLAN FOR NEXT VISIT: TM without lite gait and bioness for gait progressions, crutches with use of bioness SUBJECTIVE: I am doing ok, lets do this Pain: OBJECTIVE MEASURES WITH LEVEL OF FUNCTION: TREATMENT: Neuromuscular Re-Education: 1: Bioness left lower extremity with adjusment made for functional gait 2: TM 0.8 MPH X2 minutes with left foot drop noted despite bioness 3: TM 0.8 MPH X2 minutes with less hand held support than previous session. 4: TM 1.0 MPH X1 minutes with cues for step length Skilled Intervention: Skilled judgment used to assess appropriate program for balance and coordination activity. Education in proprioceptive/kinesthetic awareness during dynamic activities. Ten Neuromuscular Re-Education Treatment Minutes: 40 Skilled Treatment Time Minutes (timed and untimed codes): 40 Total Session Time (minutes): 40 Session Start Time : 919 Session Stop Time : 1000 Cuong Monroy PT documented in this encounter [facility] 10-31-2024 History of Presen t illness Narrative Program_ID:[id number] Access Code: [email or web address] URL: [email or web address] Date: 10-31-2024 Prepared By: Alexis Anderson Program Notes Exercises - Seated Shoulder Scaption AAROM with Prasad at Side - 2 x daily - 7 x weekly - 2 sets - reps - Supine Shoulder Flexion Extension AAROM with Dowel - 2-3 x daily - 7 x weekly - 2-3 sets - 10-15 reps - Supine Shoulder Abduction AAROM with Dowel - 2-3 x daily - 7 x weekly - 2-3 sets - 10-15 reps - Single Arm Scaption with Dumbbell - 2 x daily - 7 x weekly - 2-3 sets - 10-12 reps - Shoulder External Rotation and Scapular Retraction with Resistance - 2 x daily - 7 x weekly - 2-3 sets - 10 reps - Standing Shoulder External Rotation Stretch in Doorway - 2 x daily - 7 x weekly - sets - 3-5 reps - Standing Isometric Shoulder External Rotation with Doorway - 2 x daily - 7 x weekly - 2 sets - 10 reps - Standing Isometric Shoulder Abduction with Doorway - 2 x daily - 7 x weekly - 2 sets - 10 reps - Standing Isometric Shoulder Flexion with Doorway - 2 x daily - 7 x weekly - 2 sets - 10 reps - Sleeper Stretch - 2 x daily - 7 x weekly - 2 sets - 3 reps - Supine Shoulder Internal Rotation Stretch - 2 x daily - 7 x weekly - 2 sets - 3-4 reps Episode Visit Count: 4 Therapist That Will Accept/Oversee The Plan Of Care: Alexis Anderson, PT. Start of Care Date: 09/22/24 Onset Date: 09/17/19 Plan of Care Certification Date: 10/24/24 Next Certification Due Date: 12/05/24 Patient Identified by Name and Date of : Yes REHABILITATION AND SPORTS THERAPY PHYSICAL THERAPY TREATMENT NOTE ASSESSMENT: Mateus Manzano tolerated the session with expected muscle soreness. He demonstrated improvements in IR Flexibility. The patient will continue to benefit from ongoing skilled physical therapy to progress toward set goals. PLAN FOR NEXT VISIT: Progress Strength and Flexibility as tolerated. SUBJECTIVE: Patient reports slightly sore for a few days, not painful just sore. Pain: Pain Pain Level: (.5/10) Pain Location: Shoulder - Left Description: Dull Post Treatment Pain Post Treatment Pain Location: Shoulder - Left, Shoulder - Right OBJECTIVE MEASURES WITH LEVEL OF FUNCTION: TTP Bicep Tendon TREATMENT: Therapeutic Exercise: 1: HL Flexion AAROM: 2x10, 1-2 hold, 3# added. 2: Passive ER & IR Flexibility: 5x30 each. 3: *S/L Sleeper Stretch: 5x30 each. 4: *Active IR Flexibility Stretch in Supine, towel placement: 3x30 each. Skilled Intervention: Patient was educated in proper exercise technique and purpose for exercises. Skilled judgment was used in selection of appropriate interventions. Correct performance of therapeutic exercises was facilitated with verbal and tactile cuing. Manual Therapy: Soft Tissue Mobilization: IaSTM to B Supraspinatus and GT RC Tendon Attachment and Biceps Tendon. Skilled Intervention: Manual skills to improve joint mobility, ROM, and decrease pain. Utilized anatomy knowledge of the clinician, and assessment of patient's response to intervention. Billing Therapeutic Exercise Treatment Minutes: 26 Manual TherapyTreatment Minutes: 15 Skilled Treatment Time Minutes (timed and untimed codes): 41 Total Session Time (minutes): 41 Session Start Time : 744 Session Stop Time : 825 Alexis Anderson PT documented in this encounter [facility] 10-31-2024 Note [facility] 10-30-2024 Note HNO ID: [id number] Author: CUONG MONROY PT Service: ? Author Type: Physical Therapist Type: Progress Notes Filed: 10/30/2024 10:50 Note Text: Episode Visit Count: 6 Therapist That Will Accept/Oversee The Plan Of Care: Jonathan Monroy Start of Care Date: 09/22/24 Onset Date: 09/17/19 Plan of Care Certification Date: 10/24/24 Next Certification Due Date: 12/05/24 REHABILITATION AND SPORTS THERAPY PHYSICAL THERAPY PROGRESS REPORT PLAN OF CARE UPDATE: Assessment: Mateus Manzano demonstrates moderate improvement in rising from a chair, walking, walking in the house, walking in the community, bending, physical activities, and recreational activities. The patient has progressed toward goals. Patient continues to present with impairments in ADL's, balance, coordination, flexibility, gait, independence in exercise, overall function, and strength that interfere with rising from a chair, walking, walking in the house, walking in the community, stair negotiation, heavy exertion, physical activities, recreational activities . Current prognosis is Good due to: current objective clinical presentation . The patient will benefit from continued skilled therapy services to meet the updated goals for this plan of care as noted below. Updated: 10/24/24. Goals for Episode of Care: established 09/16/24 Patient reported outcome of physical function will increase T-score by a minimum 5 points. (Progressing Towards) [place] in home exercise program. (Partially Met) Patient will decrease pain rating by 2 points to meet minimal clinical important difference for numeric pain rating scale. (Progressing Towards) Patient will increase pain-free active ROM of B Shoulders to allow pt to to improve performance of ADLs/IADLs. (Progressing Towards) Patient will demonstrate increase in B Shoulder strength to 5/5 MMT during manual muscle testing in order to improve function for light functional tasks, home management tasks, prior functional tasks, and work tasks. (Progressing Towards) Patient will perform work related activities with no restriction or pain/symptoms. (Progressing Towards) Patient will endorse improved B Shoulder Pain and Function for improved QOL. (Progressing Towards) Sleep through night without pain/symptoms. (Progressing Towards) Patient Goals: Alleviate Pain. Time Frame for Goals and Treatment : 12/25/24 Planned Interventions, Frequency, and Duration: 2x/week, 8 weeks Total Number of Visits Planned: 16 Patient to be seen for Therapeutic exercise (83717), Neuromuscular re-education (64705), Manual therapy (23738), Therapeutic activities (37647), Gait Training (93737), Patient/Family/Caregiver Education, Body Mechanics Training, Functional training, General Conditioning PLAN FOR NEXT VISIT: TM without lite gait and bioness for gait progressions, crutches with use of bioness SUBJECTIVE: . I feel pretty good today. My shoulders are not hurting that bad even though its raining. Functional Limitations: rising from a chair, walking, walking in the house, walking in the community, stair negotiation, heavy exertion, physical activities, recreational activities Pain: PROMIS Scales 10/24/2024 10/23/2024 10/13/2024 Higher is Better Phys Func - T Score 45 (within normal limits) Phys Func - Percentile 31 Self-Eff Symptom - T Score 48 (Average) Self-Eff Symptom - Percentile 42 Mobility - T Score 35 (moderate dysfunction) 27 (severe dysfunction) Mobility - Percentile 7 1 Proxy-reported 11/15/2022 10/02/2022 08/31/2022 Lower is Better Pain Interference - T Score 61 (moderate) 66 (moderate) 62 (moderate) Pain Interference - Percentile 14 5 12 T-scores: mean of general population = 50. 5 points is clinically meaningfully difference Percentiles provide an indication of how the patient's score ranks in relation to the general population. Higher percentile rankings indicate better function/quality of life. 50th percentile is the average of the general population and indicates half of respondents had a worse score. OBJECTIVE MEASURES WITH LEVEL OF FUNCTION: LE Strength R LE Strength: Dual leg press 170lb L LE Strength: Dual leg press 170 lb Mobility Sit To Stand: Modified Independent Stand To Sit: Modified Independent Gait Gait: Stand By Assistance Gait Distance (feet): 121 Gait Device: Wheeled Walker Gait Deviations Left Lower Extremity: Foot clearance decreased General Deviations/Observations: Bree decreased, UE weight bearing on assistive device excessive Functional Performance Test Results Assistive Device: Wheeled Walker 10 Meter Walk Test Trial 1 (seconds): 19.15 10 Meter Walk Test Average (m/sec): 0.31 5 Times Sit to Stand Test : 33.85 sec (standard chair) Timed Up and Go (sec): 37.13 sec TREATMENT: Neuromuscular Re-Education: 1: PN Completed, please see for details. 2: Leg press for strength assessment - 170 max - patient with popping ses (more content not included)... [facility] 10-30-2024 History of Presen t illness Narrative Images from the original note were not included. Episode Visit Count: 6 Therapist That Will Accept/Oversee The Plan Of Care: Jonathan Monroy Start of Care Date: 09/22/24 Onset Date: 09/17/19 Plan of Care Certification Date: 10/24/24 Next Certification Due Date: 12/05/24 REHABILITATION AND SPORTS THERAPY PHYSICAL THERAPY PROGRESS REPORT PLAN OF CARE UPDATE: Assessment: Mateus Manzano demonstrates moderate improvement in rising from a chair, walking, walking in the house, walking in the community, bending, physical activities, and recreational activities. The patient has progressed toward goals. Patient continues to present with impairments in ADL's, balance, coordination, flexibility, gait, independence in exercise, overall function, and strength that interfere with rising from a chair, walking, walking in the house, walking in the community, stair negotiation, heavy exertion, physical activities, recreational activities . Current prognosis is Good due to: current objective clinical presentation . The patient will benefit from continued skilled therapy services to meet the updated goals for this plan of care as noted below. Updated: 10/24/24. Goals for Episode of Care: established 09/16/24 Patient reported outcome of physical function will increase T-score by a minimum 5 points. (Progressing Towards) [place] in home exercise program. (Partially Met) Patient will decrease pain rating by 2 points to meet minimal clinical important difference for numeric pain rating scale. (Progressing Towards) Patient will increase pain-free active ROM of B Shoulders to allow pt to to improve performance of ADLs/IADLs. (Progressing Towards) Patient will demonstrate increase in B Shoulder strength to 5/5 MMT during manual muscle testing in order to improve function for light functional tasks, home management tasks, prior functional tasks, and work tasks. (Progressing Towards) Patient will perform work related activities with no restriction or pain/symptoms. (Progressing Towards) Patient will endorse improved B Shoulder Pain and Function for improved QOL. (Progressing Towards) Sleep through night without pain/symptoms. (Progressing Towards) Patient Goals: Alleviate Pain. Time Frame for Goals and Treatment : 12/25/24 Planned Interventions, Frequency, and Duration: 2x/week, 8 weeks Total Number of Visits Planned: 16 Patient to be seen for Therapeutic exercise (76511), Neuromuscular re-education (20287), Manual therapy (18068), Therapeutic activities (68649), Gait Training (85725), Patient/Family/Caregiver Education, Body Mechanics Training, Functional training, General Conditioning PLAN FOR NEXT VISIT: TM without lite gait and bioness for gait progressions, crutches with use of bioness SUBJECTIVE: . I feel pretty good today. My shoulders are not hurting that bad even though its raining. Functional Limitations: rising from a chair, walking, walking in the house, walking in the community, stair negotiation, heavy exertion, physical activities, recreational activities Pain: PROMIS Scales 10/24/2024 10/23/2024 10/13/2024 Higher is Better Phys Func - T Score 45 (within normal limits) Phys Func - Percentile 31 Self-Eff Symptom - T Score 48 (Average) Self-Eff Symptom - Percentile 42 Mobility - T Score 35 (moderate dysfunction) 27 (severe dysfunction) Mobility - Percentile 7 1 Proxy-reported 11/15/2022 10/02/2022 08/31/2022 Lower is Better Pain Interference - T Score 61 (moderate) 66 (moderate) 62 (moderate) Pain Interference - Percentile 14 5 12 T-scores: mean of general population = 50. 5 points is clinically meaningfully difference Percentiles provide an indication of how the patient's score ranks in relation to the general population. Higher percentile rankings indicate better function/quality of life. 50th percentile is the average of the general population and indicates half of respondents had a worse score. OBJECTIVE MEASURES WITH LEVEL OF FUNCTION: LE Strength R LE Strength: Dual leg press 170lb L LE Strength: Dual leg press 170 lb Mobility Sit To Stand: Modified Independent Stand To Sit: Modified Independent Gait Gait: Stand By Assistance Gait Distance (feet): 121 Gait Device: Wheeled Walker Gait Deviations Left Lower Extremity: Foot clearance decreased General Deviations/Observations: [place] decreased, UE weight bearing on assistive device excessive Functional Performance Test Results Assistive Device: Wheeled Walker 10 Meter Walk Test Trial 1 (seconds): 19.15 10 Meter Walk Test Average (m/sec): 0.31 5 Times Sit to Stand Test : 33.85 sec (standard chair) Timed Up and Go (sec): 37.13 sec TREATMENT: Neuromuscular Re-Education: 1: PN Completed, please see for details. 2: Leg press for strength assessment - 170 max - patient with popping sesation in back after that - stopped 3: Stretching on mat tale for hamstrings and back extensors/ ab flexors 4: Patient educated on progress since last PN Skilled Intervention: Skilled judgment used to assess appropriate program for balance and coordination activity. Education in proprioceptive/kinesthetic awareness during dynamic activities. Billing Neuromuscular Re-Education Treatment Minutes: 42 Skilled Treatment Time Minutes (timed and untimed codes): 42 Total Session Time (minutes): 42 Session Start Time : 917 Session Stop Time : 1000 Cuong Monroy PT documented in this encounter [facility] 10-27-2024 Note HNO ID: [id number] Author: CUONG MONROY PT Service: ? Author Type: Physical Therapist Type: Progress Notes Filed: 10/27/2024 15:26 Note Text: Episode Visit Count: 5 Therapist That Will Accept/Oversee The Plan Of Care: Jonathan Monroy Start of Care Date: 09/22/24 Onset Date: 09/17/19 Plan of Care Certification Date: 10/24/24 Next Certification Due Date: 12/05/24 REHABILITATION AND SPORTS THERAPY PHYSICAL THERAPY TREATMENT NOTE ASSESSMENT: Mateus Manzano tolerated the session with fatigue and expected muscle soreness. He demonstrated difficulty with half kneel and tall kneel position with improved endurance noted from previous sessions. He is able to stand with loftstrands today for short periods of time. The patient will continue to benefit from ongoing skilled physical therapy to progress toward set goals. Current Frequency: 2x/week Duration: 12 weeks Total Number of Visits Planned: 24 Planned Treatment Interventions: Therapeutic exercise (05233), Neuromuscular re-education (69123), Manual therapy (39245), Therapeutic activities (58441), Self-prison management (74906), Gait Training (53708), Patient/Family/Caregiver Education, Body Mechanics Training, Functional training, General Conditioning PLAN FOR NEXT VISIT: PN next visit SUBJECTIVE: My legs are like shit and my arms aren't much better. I didn't get much sleep last night. Pain: OBJECTIVE MEASURES WITH LEVEL OF FUNCTION: TREATMENT: Neuromuscular Re-Education: 1: With use of physioball: 2: - Tall kneel X10 3: - Tall Kneel Hold 30 X2 4: - Half kneel hold 30 with attempt to use single hand on ball 5: Standing with loftstrands 6: - use of bioness to improve quad activation especially in left quad Skilled Intervention: Skilled judgment used to assess appropriate program for balance and coordination activity. Education in proprioceptive/kinesthetic awareness during dynamic activities. Billing Neuromuscular Re-Education Treatment Minutes: 44 Skilled Treatment Time Minutes (timed and untimed codes): 44 Total Session Time (minutes): 44 Session Start Time : 915 Session Stop Time : 1000 Cuong Monroy PT [facility] 10-27-2024 History of Presen t illness Narrative Episode Visit Count: 5 Therapist That Will Accept/Oversee The Plan Of Care: Jonathan Monroy Start of Care Date: 09/22/24 Onset Date: 09/17/19 Plan of Care Certification Date: 10/24/24 Next Certification Due Date: 12/05/24 REHABILITATION AND SPORTS THERAPY PHYSICAL THERAPY TREATMENT NOTE ASSESSMENT: Mateus Manzano tolerated the session with fatigue and expected muscle soreness. He demonstrated difficulty with half kneel and tall kneel position with improved endurance noted from previous sessions. He is able to stand with loftstrands today for short periods of time. The patient will continue to benefit from ongoing skilled physical therapy to progress toward set goals. Current Frequency: 2x/week Duration: 12 weeks Total Number of Visits Planned: 24 Planned Treatment Interventions: Therapeutic exercise (50191), Neuromuscular re-education (72057), Manual therapy (90440), Therapeutic activities (87236), Self-prison management (42388), Gait Training (47997), Patient/Family/Caregiver Education, Body Mechanics Training, Functional training, General Conditioning PLAN FOR NEXT VISIT: PN next visit SUBJECTIVE: My legs are like shit and my arms aren't much better. I didn't get much sleep last night. Pain: OBJECTIVE MEASURES WITH LEVEL OF FUNCTION: TREATMENT: Neuromuscular Re-Education: 1: With use of physioball: 2: - Tall kneel X10 3: - Tall Kneel Hold 30 X2 4: - Half kneel hold 30 with attempt to use single hand on ball 5: Standing with loftstrands 6: - use of bioness to improve quad activation especially in left quad Skilled Intervention: Skilled judgment used to assess appropriate program for balance and coordination activity. Education in proprioceptive/kinesthetic awareness during dynamic activities. Billing Neuromuscular Re-Education Treatment Minutes: 44 Skilled Treatment Time Minutes (timed and untimed codes): 44 Total Session Time (minutes): 44 Session Start Time : 915 Session Stop Time : 1000 Cuong Monroy PT documented in this encounter [facility] 10-24-2024 History of Presen t illness Narrative Program_ID:[id number] Access Code: [email or web address] URL: [email or web address] Date: 10-24-2024 Prepared By: Alexis Anderson Program Notes Exercises - Seated Shoulder Scaption AAROM with Prasad at Side - 2 x daily - 7 x weekly - 2 sets - reps - Supine Shoulder Flexion Extension AAROM with Dowel - 2-3 x daily - 7 x weekly - 2-3 sets - 10-15 reps - Supine Shoulder Abduction AAROM with Dowel - 2-3 x daily - 7 x weekly - 2-3 sets - 10-15 reps - Single Arm Scaption with Dumbbell - 2 x daily - 7 x weekly - 2-3 sets - 10-12 reps - Shoulder External Rotation and Scapular Retraction with Resistance - 2 x daily - 7 x weekly - 2-3 sets - 10 reps - Standing Shoulder External Rotation Stretch in Doorway - 2 x daily - 7 x weekly - sets - 3-5 reps - Standing Isometric Shoulder External Rotation with Doorway - 2 x daily - 7 x weekly - 2 sets - 10 reps - Standing Isometric Shoulder Abduction with Doorway - 2 x daily - 7 x weekly - 2 sets - 10 reps - Standing Isometric Shoulder Flexion with Doorway - 2 x daily - 7 x weekly - 2 sets - 10 reps Images from the original note were not included. Episode Visit Count: 3 Therapist That Will Accept/Oversee The Plan Of Care: Alexis Anderson PT. Start of Care Date: 09/22/24 Onset Date: 09/17/19 Plan of Care Certification Date: 10/24/24 Next Certification Due Date: 12/05/24 Patient Identified by Name and Date of : Yes REHABILITATION AND SPORTS THERAPY PHYSICAL THERAPY PROGRESS REPORT PLAN OF CARE UPDATE: Assessment: Mateus Manzano demonstrates moderate improvement in B Shoulder ROM Strength, ROM, Symptom management and tissue tenderness reduction. The patient has progressed toward goals. Patient continues to present with impairments in ADL's, overall function, range of motion, strength, symptom management, and tissue tenderness that interfere with pushing, use hand with arm at shoulder level, reaching overhead, physical activities, lifting, sleeping, working . Current prognosis is Good due to: current objective clinical presentation, positive past response to therapy, within-session changes . The patient will benefit from continued skilled therapy services to meet the updated goals for this plan of care as noted below. Updated: 10/24/24. Goals for Episode of Care: established 09/16/24 Patient reported outcome of physical function will increase T-score by a minimum 5 points. (Progressing Towards) [place] in home exercise program. (Partially Met) Patient will decrease pain rating by 2 points to meet minimal clinical important difference for numeric pain rating scale. (Progressing Towards) Patient will increase pain-free active ROM of B Shoulders to allow pt to to improve performance of ADLs/IADLs. (Progressing Towards) Patient will demonstrate increase in B Shoulder strength to 5/5 MMT during manual muscle testing in order to improve function for light functional tasks, home management tasks, prior functional tasks, and work tasks. (Progressing Towards) Patient will perform work related activities with no restriction or pain/symptoms. (Progressing Towards) Patient will endorse improved B Shoulder Pain and Function for improved QOL. (Progressing Towards) Sleep through night without pain/symptoms. (Progressing Towards) Patient Goals: Alleviate Pain. Time Frame for Goals and Treatment : 12/05/24 Planned Interventions, Frequency, and Duration: 1x/week, 4 weeks Total Number of Visits Planned: 4 (On top of 2 already scheduled) Patient to be seen for Therapeutic exercise (97960), Neuromuscular re-education (07820), Manual therapy (44781), Therapeutic activities (87152), Self-prison management (61603), Gait Training (64727), Patient/Family/Caregiver Education, Body Mechanics Training, Functional training, General Conditioning PLAN FOR NEXT VISIT: MT PRN; progress strength and motion. SUBJECTIVE: Patient reports over the last month since last visit shoulders have been okay and overuse sore; notes the past two days have been bad reva. with sleeping. 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 Functional Limitations: pushing, use hand with arm at shoulder level, reaching overhead, physical activities, lifting, sleeping, working Pain: Pain Pain Level: 1 Pain Location: Shoulder - Left, Shoulder - Right Description: Sore (Annoying soreness.) Post Treatment Pain Post Treatment Pain Level: Better Post Treatment Pain Location: Shoulder - Left, Shoulder - Right Post Treatment Symptoms: Less Stiff. PROMIS Scales 10/24/2024 10/23/2024 10/13/2024 Higher is Better Phys Func - T Score 45 (within normal limits) Phys Func - Percentile 31 Self-Eff Symptom - T Score 48 (Average) Self-Eff Symptom - Percentile 42 Mobility - T Score 35 (moderate dysfunction) 27 (severe dysfunction) Mobility - Percentile 7 1 Proxy-reported 11/15/2022 10/02/2022 08/31/2022 Lower is Better Pain Interference - T Score 61 (moderate) 66 (moderate) 62 (moderate) Pain Interference - Percentile 14 5 12 T-scores: mean of general population = 50. 5 points is clinically meaningfully difference Percentiles provide an indication of how the patient's score ranks in relation to the general population. Higher percentile rankings indicate better function/quality of life. 50th percentile is the average of the general population and indicates half of respondents had a worse score. OBJECTIVE MEASURES WITH LEVEL OF FUNCTION: Shoulder Observations R Shoulder Palpation Tenderness: Supraspinatus R Shoulder Palpation Tenderness Comments: Biceps tendon and bicipital groove. L Shoulder Palpation Tenderness: Supraspinatus L Shoulder Palpation Tenderness Comments: Biceps tendon and bicipital groove. UE AROM R Shoulder Flex: 170 Degrees R Shoulder ABduction: 160 Degrees R Shoulder Internal Rotation (Functional): T10 R Shoulder External Rotation (Functional): T2 L Shoulder Flex: 180 Degrees L Shoulder ABduction: 145 Degrees L Shoulder Internal Rotation (Functional): T12 L Shoulder External Rotation (Functional): T2 UE PROM R UE PROM: WNL L UE PROM: WNL UE and Cervical Strength R UE Strength: Grossly 5/5, limitation below. L UE Strength: Grossly 5/5, limitation below. R Shoulder Flexion: 4+/5 R Shoulder Abduction (C5): 4+/5 R Shoulder External Rotation: 4+/5 L Shoulder Flexion: 4+/5 L Shoulder Abduction (C5): 4+/5 L Shoulder External Rotation: 4+/5 TREATMENT: Therapeutic Exercise: 1: Re-assessment and objectives collected. 2: Pt. condition and goals assessed. HEP was reviewed and the patient was instructed to continue with HEP to tolerance. 3: *B Shoulder Isometric (Flex, ABD and ER): 1x10 each. Skilled Intervention: Patient was educated in proper exercise technique and purpose for exercises. Reviewed and educated patient on additions/changes for home exercise program as above (*). Skilled judgment was used in selection of appropriate interventions. Provided written instruction for home exercise program to facilitate proper performance and compliance. Correct performance of therapeutic exercises was facilitated with verbal and visual cuing. Patient education as noted. Manual Therapy: Soft Tissue Mobilization: IaSTM to B Supraspinatus and GT RC Tendon Attachment and Biceps Tendon. Skilled Intervention: Manual skills to improve joint mobility, ROM, and decrease pain. Utilized anatomy knowledge of the clinician, and assessment of patient's response to intervention. Billing Therapeutic Exercise Treatment Minutes: 30 Manual TherapyTreatment Minutes: 12 Skilled Treatment Time Minutes (timed and untimed codes): 42 Total Session Time (minutes): 42 Session Start Time : 744 Session Stop Time : 826 Alexis Anderson PT documented in this encounter [facility] 10-24-2024 Note [facility] 10-23-2024 Note HNO ID: [id number] Author: CUONG MONROY PT Service: ? Author Type: Physical Therapist Type: Progress Notes Filed: 10/23/2024 15:20 Note Text: Episode Visit Count: 4 Therapist That Will Accept/Oversee The Plan Of Care: Jonathan Monroy Start of Care Date: 09/22/24 Onset Date: 09/17/19 Plan of Care Certification Date: 09/22/24 Next Certification Due Date: 10/24/24 REHABILITATION AND SPORTS THERAPY PHYSICAL THERAPY TREATMENT NOTE ASSESSMENT: Mateus Manzano tolerated the session with decreased endurance and fatigue. He demonstrated difficulty with general LE strengthening and endurance during walking and functional activities. The patient will continue to benefit from ongoing skilled physical therapy to progress toward set goals. PLAN FOR NEXT VISIT: Continue with bioness and functional gait over ground or on TM SUBJECTIVE: I am doing good. Pain: OBJECTIVE MEASURES WITH LEVEL OF FUNCTION: TREATMENT: Neuromuscular Re-Education: 1: Bioness set up left DF 2: Gait with FWW 40' X1 3: TM 0.6 MPH X1 minute with heavy hand held assist from [place] or above on the lite gait for LE weight bearing management 4: TM 0.6 increased to 0.8MPH X1 minutes with partial hand held assistance on bars but also assist from above Skilled Intervention: Skilled judgment used to assess appropriate program for balance and coordination activity. Education in proprioceptive/kinesthetic awareness during dynamic activities. Billing Neuromuscular Re-Education Treatment Minutes: 45 Skilled Treatment Time Minutes (timed and untimed codes): 45 Total Session Time (minutes): 45 Session Start Time : 914 Session Stop Time : 1000 Cuong Monroy PT [facility] 10-23-2024 History of Presen t illness Narrative Episode Visit Count: 4 Therapist That Will Accept/Oversee The Plan Of Care: Jonathan Monroy Start of Care Date: 09/22/24 Onset Date: 09/17/19 Plan of Care Certification Date: 09/22/24 Next Certification Due Date: 10/24/24 REHABILITATION AND SPORTS THERAPY PHYSICAL THERAPY TREATMENT NOTE ASSESSMENT: Mateus Manzano tolerated the session with decreased endurance and fatigue. He demonstrated difficulty with general LE strengthening and endurance during walking and functional activities. The patient will continue to benefit from ongoing skilled physical therapy to progress toward set goals. PLAN FOR NEXT VISIT: Continue with bioness and functional gait over ground or on TM SUBJECTIVE: I am doing good. Pain: OBJECTIVE MEASURES WITH LEVEL OF FUNCTION: TREATMENT: Neuromuscular Re-Education: 1: Bioness set up left DF 2: Gait with FWW 40' X1 3: TM 0.6 MPH X1 minute with heavy hand held assist from infront or above on the lite gait for LE weight bearing management 4: TM 0.6 increased to 0.8MPH X1 minutes with partial hand held assistance on bars but also assist from above Skilled Intervention: Skilled judgment used to assess appropriate program for balance and coordination activity. Education in proprioceptive/kinesthetic awareness during dynamic activities. Billing Neuromuscular Re-Education Treatment Minutes: 45 Skilled Treatment Time Minutes (timed and untimed codes): 45 Total Session Time (minutes): 45 Session Start Time : 914 Session Stop Time : 1000 Cuong Monroy PT documented in this encounter [facility] 10-17-2024 Note [facility] 10-17-2024 History of Presen t illness Narrative [facility] [place] [facility] Date of First Session this Cycle: October 17, 2024 Session #: 1 Informed consent was manually sent to the patient and signed before the visit. Therapist discussed it with the patient. Virtual Visit Check: Visit performed via telehealth.Audio/visual connection was good. Confirmed the patient was in a private space with minimized distractions and no additional people were in the room. Informed consent to deliver services via telehealth was discussed. The patient is aware of the benefits of telehealth and is in agreement to participate. Originating site for client is [place]. Originating site for provider is [place]. Therapist is licensed in [place], [place], [place], and [place]. Patient understands that this is a limited mental health service, up to 5 sessions, that they will receive a diagnosis, and this session will be billed to their insurance. 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 He uses his wheelchair primarily, but can use his legs. He was ref to sexual health because he has ED and difficulty orgasming. He does have sexual sensation, high drive, very attracted to his . His pain has improved with PT. He takes Cialis, which has helped ED. His stress level is 9/10 and he always feels like he is behind and he doesn't want to disappoint anyone, especially his . Was in therapy as a kid, not now. Current Outpatient Medications on File Prior to Visit Medication Sig cephALEXin (KEFLEX) 500 mg capsule Take 1 capsule by mouth two times a day for 7 days. baclofen 20 mg tablet Take 2 tablets by mouth two times a day. ergocalciferol 50,000 unit capsule (VITAMIN D2, DRISDOL) Take 1 capsule by mouth two times a week. TO BE TAKEN ORALLY DIRECTED. Take 1 tablet by mouth twice weekly [id number], then decrease to 1 tablet weekly. nicotine (NICODERM) 21 mg/24 hr Apply 1 patch as directed every 24 hours. [START ON 11/30/2024] nicotine (NICODERM) 14 mg/24 hr Apply 1 patch as directed every 24 hours. Patient should start on November 30, 2024. [START ON 12/30/2024] nicotine (NICODERM) 7 mg/24 hr Apply 1 patch as directed every 24 hours. Patient should start on December 30, 2024. clomiPHENe (CLOMID) 50 mg tablet Take 1 tablet by mouth every other day. sildenafil (REVATIO) 20 mg tablet TAKE 1 TABLET BY MOUTH DIRECTED (may take up to 5 (FIVE) TABLETS 1 (ONE) hour prior to sexual activity) diazePAM (VALIUM) 2 mg tablet Take 1 tablet twice daily and 2 tablets at bedtime tiZANidine (ZANAFLEX) 4 mg tablet Take 2 tablets by mouth every 6 hours as needed. XARELTO 20 mg tablet Take 1 tablet by mouth once daily. Patient should start on July 22, 2024. hydrOXYzine pamoate (VISTARIL) 25 mg capsule Take 1 capsule by mouth three times a day as needed for itching/rash or anxiety. albuterol (PROVENTIL) 2.5 mg /3 mL (0.083 %) nebulizer solution Use 3 mL via nebulizer every 6 hours as needed for wheezing/shortness of breath. ondansetron orally disintegrating (ZOFRAN ODT) 4 mg disintegrating tablet Take 1 tablet by mouth every 8 hours as needed for nausea/vomiting. montelukast (SINGULAIR) 10 mg tablet Take 1 tablet by mouth daily at bedtime. morphine SR (MS CONTIN, ORAMORPH SR) 15 mg 12 hr tablet Take 1 tablet by mouth every 12 hours for 5 days. acetaminophen (TYLENOL EXTRA STRENGTH) 500 mg tablet Take 2 tablets by mouth every 6 hours as needed for pain. Pregabalin (LYRICA) 200 mg capsule Take 200 mg by mouth twice daily. lidocaine (XYLOCAINE) 5 % ointment Apply to affected area as needed. 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 He has desire, gets aroused, and it stops Trauma: Other - medical injury, MRSA caused sepsis, caused spinal cord injury. Goals: Improve coping with medical dx and tx, Improve sexual functioning by behavior changes to sexual script, Provide sex therapy techniques to improve patients sexual health, Provide cognitive behavioral tx to reduce symptoms, and Provide education about sexual health, dx, and tx options PSYCHOLOGY SCREENING/TESTIN02/13/2022 03/02/2022 PHQ-9 All Questions Little interest or pleasure in doing things: 0 1 Feeling down, depressed, or hopeless: 0 0 Trouble falling or staying asleep, or sleeping too much 0 0 Feeling tired or having little energy 1 1 Poor appetite or overeating 0 0 Feeling bad about yourself - or that you are a failure or have let yourself or your family down 0 0 Trouble concentrating on things, such as reading the newspaper or watching television 0 0 Moving or speaking so slowly that other people could have noticed. Or the opposite - being so fidgety or restless that you have been moving around a lot more than usual 0 0 Thoughts that you would be better off , or of hurting yourself in some way 0 0 PHQ-9 Score 1 1 1 1 1 2 (0-4) minimal depression, (5-9) mild depression, (10-14) moderate depression, (15-19) moderately severe depression, (20-27) severe depression 02/13/2022 03/02/2022 SISI-7 All Questions Feeling nervous, anxious, or on edge Not at all Not at all Not being able to stop or control worrying Not at all Not at all Worrying too much about different things Not at all Trouble relaxing Not at all Being so restless that it is hard to sit still Not at all Becoming easily annoyed or irritable Not at all Feeling afraid, as if something awful might happen Not at all SISI-7 Score 0 (0-4) minimal anxiety, (5-9) mild anxiety, (10-14) moderate anxiety, (15-21) severe anxiety MENTAL STATUS: -Appearance: He is Neatly dressed, grooming and hygiene were appropriate. - Speech was Normal. - Motor deficits were absent . - Demeanor: Appropriate, Relaxed - Mood was euthymic. - Affect was appropriate . - Thought-cognitive: The patient denied a history of delusions or hallucinations; there is no evidence of formal thought disorder. - Thought processing: organized - Suicidal or homicidal ideation: None expressed or evidenced Patient denies any suicidal or homicidal ideation, plan or intent at this time. - Intelligence: Average - Judgement: Appropriate - Insight: Appropriate Stage of Change: Act Motivation for therapy: Appears to be strong. TREATMENT: Sexual Health treatment plan performed today:Therapist deconstructed social norms around sex., Therapist provided education on the central nervous system and how stress can cause brakes in sexual response., Therapist provided education on brakes and accelerators and suggested patient use mindfulness techniques to monitor stress levels., and Therapist reviewed ways to tx ED using vacuum pump/ring. 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 Please call [phone] to set up another appointment. Please keep in mind that I usually offer about five visits as a consultation. If you need correction therapy, please call [facility] at [phone], for flexible therapy online go to Zero9 or VCNC or Synoste Oy, to find a therapist in person or online go to [employer] or [email or web address] to find a sex therapist. For community resources, please look at [email or web address] Below are my handouts for more information on pleasure and lubricants for men and women. Your Sexual Health is Important Information on Pleasure and Sexual Aid Devices Pleasure is the journey and the goal The average sexual activity is reported to be about 15 minutes. Is that long enough for you to forget what you needed to do that day, what s for dinner, can the kids hear us? Women tend to have the most responsibility for childcare, eldercare, and pretzel packer. Sometimes it takes longer to let all of that responsibility go and let desire and arousal to show up. Try to take more time in your pleasure, whether it is with yourself or your partner. When you focus on pleasure instead of orgasm, then it opens many more options and fun. What is a Pleasure Gap? There is a pleasure gap between men and women. Men report having an orgasm 91% of the time and women only report having an orgasm 64% of the time. Studies show that women are able to be orgasmic more often with established partners verses new partners. And orgasm is achieved easier by receiving oral sex, using vibrators, and manual clitoral stimulation. Over half of women are not able to be orgasmic with intercourse, but they feel pressured or broken if they can t orgasm that way. So then, women tend to fake an orgasm for these reasons. However, the more you increase your self-confidence, feel more comfortable with your partner, and choose partners who are mature, sexually attentive, and not controlling..the better you will feel about sex. How can I make sexual activity more pleasurable? Studies show that women are more likely to feel sexual pleasure if it includes kissing, cuddling, hand to genital stimulation, receiving oral sex, rubbing genitals together, vibrator/sex toy use and intercourse. Men are more likely to have pleasure by hand-genital stimulation, receiving oral sex, and vaginal intercourse. Unfortunately, the media, such as tv, movies, or porn, show the male focused pleasure. It s very rare to see female focused pleasure represented in our daily lives. Let s change that! Let s get rid of words like foreplay because that is the main pleasure event for women! Let s redefine what Sex means for you. It doesn t have to include intercourse only. What is included in your sexual activity? Can you expand on what you are doing now to increase your pleasure? Let s start by learning about sex toys. What is a sexual aid device? Is that a sex toy? A sex toy is an object or device that is primarily used to facilitate sexual pleasure, such as a dildo, artificial vagina, vibrator. Many popular sex toys are designed to resemble human genitals and may be vibrating or non-vibrating. About half or more of all women use some kind of sexual device for pleasure with masturbation and/or with a partner. A variety of devices are found at both [employer] stores and even at many [employer] chains. When you are shopping for a toy, consider the cost, what it is made out of, does it vibrate or not, does it offer clitoral stimulation, will it stimulate your partner also? For example, some women prefer the non-vibrating glass dildos. But if you are having pain with intercourse, you may want to focus on clitoral stimulation or focus on the outside of the vulva, not inserting it into the vagina. There are many to choose from and there really are no limits to what you can do with them. Focus on your pleasure and don t stick to stimulating your obvious areas of vulva/vagina. How does it feel on your neck, inner thigh, breast, back, butt? For more information you can read an article on the vibrators here. Where can I get a sex toy? Many of these products can be found on MEDOP, which is the most popular way to buy one. Mishel is discrete, have coupons, and good return policy, even for used products. Check out the Pure Enrichment Peak Wand Massager, The Rabbit was made famous in Sex in the City , The Tool Shed: An Erotic Boutique Carolyn Ortiz Smile Makers Collection The Pleasure Hippocampus Learning [employer] Shop Larry Pablo OhMiBoyury Brandt Kitsanjay Burnette's Dog Target has pleasure items from $20-50 available. Dina For Specific Devices: Dilcia has many products, look under best seller s tab online example is DARY 2, Danisha. Gloria 2 is discrete, high end. Gloria 2 has a lipstick vibrator with USB endband cutter hand. We-vibe has couples vibrators too, a popular one is Recogniao Womanizer Pro uses air for stimulation. This may be for women having difficulty achieving climax with traditional wand devices. Medical Devices that can help you Overcome Sexual Dysfunction I don t have enough blood flow to the clitoris. There are suction devices for clitoris, they are not vibrators, but may help bring blood to the area. This may help the tissues in those who have had radiation therapy: [place] device is FDA approved. I have physical limitations to holding a sex toy. Holli may be hands free. It sits around the clitoris and your labia may be able to keep it in the right spot or stay in place during intercourse. But every vulva is different, so it may not stay in place. A great resource is Ergoerotics for things like a hand harness glove (currently out of stock) that can hold your sexual device if you are unable to clay washer it. They also have a thigh harness to hold your toys on your leg for your partners enjoyment. You may also want to check out the Vibrating Finger Glove, Flexa Pleasure, Mini Discrete Butterfly on MEDOP. I have pain with deep penetration. You may want to try an OhNut ring, it is placed on the penis or toy to prevent it from going too deep. I can t find a comfortable position. Here is a website for older adults or people with disabilities. They offer Love Bumpers and other types of pillows for support. Can a sex toy help with my pelvic pain? Mysteryvibe as flexible products that can penetrate you in different ways. You may want to consider Crescendo 2 is what they have for pelvic pain. They have male products to help with erectile dysfunction too. How do I clean my devices/toys? See table below for general tips but recommend following director of design instructions. Cleaning is very important for prevention of sexually transmitted infections, regardless of the gender identity or sexual orientation of partner(s). Material Porosity How to clean Where to store ABS plastic nonporous warm water and soap or sex toy bin cleaner in a lint-free fabric bag cotton porous cold water and soap any clean container or drawer crystal, stone, wood* nonporous warm water and soap lint-free fabric bag or padded container glass, Pyrex, silicone, stainless steel nonporous motorized: warm water and soap or sex toy bin cleaner nonmotorized: can also use boiling water or sanitize in bench assembly inspector glass and Pyrex: lint-free fabric bag or padded container silicone or stainless steel: any clean container jelly rubber, elastomer, latex, cyberskin porous room temperature water and a soapy washcloth individually in a lint-free fabric bag or nonplastic container leather porous spot clean with a damp, soapy cloth store in a cool, dry place and avoid storing in plastic PVC and vinyl porous warm water and a soapy washcloth lint-free fabric bag nylon nonporous machine or handwash with soap any clean container or drawer For General Sexual Health Resources: Bedsider To reclaim or discover your sexual self with others just like you: Body Sex was developed by Gini Shirley, a sex educator, where women come together in a safe environment and learn about their bodies and claim their sexuality. Many women/vulva-owners have been raised to feel shameful about their genitals and sexual desires. Our physical self-worth and pleasure are controlled by social norms that deny our birthright to feeling good about our bodies, having satisfying orgasms, and owning our sexuality. Bodysex is designed to heal shame, enhance self-esteem, and enrich our orgasms. To increase pleasure and fantasy on your own: World First has hundreds of videos, interviews, demonstrations on how to experience pleasure. The cost ranges from $49-$75 for a membership. Ukash Dipsea is an erotic hector that appeals to the sensuality and desires of women. Food.ee has erotic podcasts! Cum with Us: Erotic Stories for Women Kiss Me Quicks Sex Stories by AudioDesires Audio Erotica for Women by AudioDesires Sheba Bueno Steven is an audio erotica site with stories of fantasy. Ferly hector empowers women to learn what you do and don t like and how to communicate that with your partner. It covers painful intercourse, low libido, and more. Mariella hector was developed by doctors and sex therapist to enhance sexual wellness. Candy is a sensual AI hector (LGBTQ friendly) and you get to direct the storyline! Guided by Lindsey combines sensual audio stories meditation for wellness and sensual audio stories. My Fantasy: Interactive & Romantic Simulator is a role-playing game and story hector. Tabou Stories: Love Episodes create an avatar that looks like you and she can explore her sexual self. (LGBTQ friendly also) BOOKS: Unlocking full orgasm potential: Yvonne Portillo and Shwetha Torres 'Becoming Orgasmic' Uzma Yarbrough PhD 'Becoming Clitorate' Jacob Jensen The Science of Orgasm' Gini Shirley 'Sex for one' Debra Rich 'Elusive orgasm' Prateek Aguila 'The Multi-Orgasmic Couple' Elza Nguyen 'For Women Only' You tube video for meditation, called: Jonancy Breathing Meditation for Women who Have Difficulty Orgasming [email or web address] To give to your partner: Kiran Clark 'She Comes First: The Thinking Man's Guide to Pleasuring a Woman' General: Larissa Pedraza PhD: Come as You Are: The Surprising New Science that Will Transform Your Sex Life (Make sure to get the newer version, because the older version is somewhat outdated) Sebastian Tinsley 'For Yourself' Tiffany Vernon 'Heart Pounding Guide Passionate Sex' Nely Liz MD, 'Sex Rx, hormones, health, and your best sex ever' Shayy Ewing 'Getting the sex you want' Сергей Comfort 'Soila of Sex' Desiree Kothari 'Getaway Guide to the Great Sex Weekend' Roberta Foster 'Better Sex Through Mindfulness' For couples in long-term relationships: 'Mating in captivity'- Alyson Cunningham For the child sexual abuse survivor: Ila oCx 'The Courage to Heal' For trauma: Efrain James 'The Body Keeps the Score' Roberta Foster 'Better Sex Through Mindfulness' Mike Munson 'Daring Greatly' Easier reading: Brisa Stinson 'The two-step. The dance toward intimacy.' Relationships: Jacob Fuller 'Rekindling Desire: A Jpzn-im-Slxb Program to Help Low-Sex and No-Sex Marriages' (revised edition). Wong Miner 'The Marriage Go-Round'. Nithya Wilcox 'Why We Love'. Negative Sikhism Messages about Sex The Great Sex Rescue by Sherry Zamora: The Hindu Movement that Shamed a Generation of Young Women and How I Broke Free by Abi Bradshaw Pain: Praveen Back and Richard Thomas- When Sex Hurts (100% of the profits from this book goes to the medical society that is dedicated to women's sexuality, called ISSWS) WEBSITES: International Society for the Study of Women's Sexual Health Medical sexual health society, has a list of qualified providers Www.isswsh.org/ Their educational info can be found at: https://www.LifeMap [employer]com/ Your Sexual Health is Important Information on Dilators Your doctor, sex therapist, or pelvic floor physical therapist may have suggested that you use dilators. Dilators are plastic or silicone cylinders that are rounded on one end and come in several sizes. The smallest size is about the same size as a tampon or large finger. They are used to stretch the vaginal or anal tissue slowly and gently. When using dilators, you will always have to use lubricants, see handout on lubricants here (attach link or make one big handout for both). Discuss with your healthcare provider what your goals are. Do you want to be able to use tampons, have you or your partner insert a finger, use a sex toy, have intercourse inserting a penis, or just have a more comfortable exam using a speculum. Your healthcare provider will give you instructions on how to use dilators and what size to go up to depending on your goals. Here is an overview for you on how to use dilators from the [facility]: Start with Your mindset: Think about your goals and how using a dilator will help yourself feel better, just like exercising. This is not a pleasurable activity (until we can get pleasure back into this process). This is homework for your body, no different then if you hurt your hand and had to squeeze a stress ball 20 times a day. Find a Safe Place: Carve out time for yourself and a private space to do dilator therapy. The bedroom is the most common space. You may want to lock the door, so you are not interrupted. This way you can use the dilators while lying down. Plan for 10-15 minutes a day, four to five times a week. Start with what you feel comfortable with. This may be a long-term exercise for your vulva/anus. Building it into a routine will help you in the long run. You will need a mirror: We recommend using a mirror to look at the vulva and the vaginal opening. This is good to do for everyone, so that you can be familiar with your body and notice any changes that you would like to talk to your doctor about. Locate the labia or lips, the clitoris, the opening to the urethra, and the openings of the vagina and rectum. Beginning with Dilators: Use a small amount of lubrication on the dilator. Tense and relax the pelvic floor muscles a few times. When you are in the relax phase of the exercise, insert the smallest dilator that you have purchased. Try to lean it in different directions, up, down, side to side as you slowly enter 1-2 inches. The important part of this is that you are in control of how fast you move or if you move at all. Notice how you are feeling: Do you feel pressure, stretching, ache, or it seems okay? Notice your breathing. If you are tense and breathing is shallow, stop and try to relax while leaving the dilator in place. That may be all you do that day for 10 minutes or you could push in further and see how that feels. If you have sharp pain-STOP! Dilator therapy won t be effective if you are in pain. Check with your healthcare provider who is supervising your dilator therapy. You may benefit from further physical therapy techniques or possibly a numbing cream. Give yourself some time: Leave the dilator in for 10 to 20 minutes. Remember, this is not combined with sexual pleasure yet, so you can read or watch tv. On the same note, we recommend you stay in touch with what you are feeling so that you can monitor when it is time to use a larger dilator. Change dilator size: When you can effortlessly insert the dilator, it may be time to choose a larger size. When you think you are ready, use the size that you know is comfortable for a few minutes, then use lubrication on the larger one and start with only entering in 1-2 inches, moving up, down, side to side. Remember to breath and relax. Cleaning your dilator: Dilators can be cleaned with soap and water, making sure they are rinsed thoroughly. How do you buy a set of dilators? Amazon Soul Source Intimate Brigitte Your Sexual Health is Important Information on Vaginal Lubricants and Moisturizers The tfby-rem-kaoiila vaginal moisturizer and lubricant products can be confusing to sort through, especially since there are no FDA requirements for how they can be marketed or labeled. Please note: Vaginal lubricants and moisturizers do not protect you against or sexually transmitted diseases. How do vaginal lubricants work? Vaginal lubricants work by reducing the friction associated with thin, dry genital tissue. Lubricants come in liquid or gel form and are applied to the vagina and vulva right before intercourse or sexual activity. It can also help to apply it to the penis or any toy/vibrator/dilator that may be inserted in the vagina. What are vaginal moisturizers? Vaginal moisturizers are products that are intended to ease vaginal dryness. They need to be used regularly to maintain moisture. They are absorbed in the skin, increasing moisture in the affected area. Moisturizers may not provide enough comfort during intercourse. Vaginal moisturizers can be messy, and you may want to wear a panty liner to catch any discharge. Long-acting vaginal moisturizers should be used at least twice weekly. Many women find they need to use a moisturizer 3-5 times/week. In addition, it is important to not only apply the moisturizer inside the vagina, but also to apply to the vestibule (the external area surrounding the opening of the vagina). Women who are not sexually active often find that the regular use of a long-acting vaginal moisturizer makes them feel more comfortable. Collar Worker beware! Many lubricants are labeled as moisturizers to make them more appealing to consumers. Here are some over the counter options: Replens Moisture Restore Comfort Gel is to be used externally for dry vulvar skin. Aquaphor can also be applied externally for comfort. Desert Lynden Aloe [place]: Many people are allergic to aloe, so keep this in mind with products like this that have aloe in it. Medicine Mama s V magic: Not many medical studies on this, but many patients swear by it, has oil, beeswax and honey in it- best used externally. Here are some other suggestions: Extra [place] Orofino Oil (natural) Can be used as a moisturizer by placing on finger and rubbing into the vaginal canal. Do not use other food oils as they can trap bacteria. Do not use with latex condoms as they weaken the condom, cause tears, and can cause disintegration of the condom. Vitamin E Oil (natural) Can be used as a suppository. Pure vitamin E oil is available in bottle form or capsule form. If you use the capsules, break them open and apply to the vaginal canal. You can apply vitamin E oil one or more times a day. Do not use with latex condoms as they weaken the condom, cause tears, and can cause disintegration of the condom. Coconut Oil (natural) Coconut oil can be used on the outside of the vaginal entrance and just inside the edge. Coconut oil is good for rejuvenating dry, irritated tissues and for keeping vaginal dryness at bay. Coconut oil should be pure, without other oils or additives. Do not use with latex condoms as they weaken the condom, cause tears, and can cause disintegration of the condom. If you are prone to urinary tract infections, yeast infections, or have diabetes, you may not be able to use natural oils. Luvena A vaginal moisturizer that can be found at your local drug store. It is hormone, glycerin and paraben free. Replens Estrogen free. Good for post-menopause or after medical treatments (such as chemotherapy and hormone therapy) that dry the vagina. This moisturizer is inserted into the vagina with an applicator 1-3 times per week. Women who choose not to use or cannot use localized estrogen replacement to the vagina often use Replens. Revaree Hormone-free. This is a vaginal insert that is placed with fingers into the vagina every 2-3 days at bedtime. This is a good option post-menopause. Vajuvenate This is a topical vulvar cream intended to reduce itching and irritation on the vulva. It is hormone free and has coconut oil, vitamin E, and alberto butter listed as ingredients. Fertility and lubricants Many studies have shown that some lubricants decrease sperm movement in lab conditions. However, one study followed women over time and did not find any difference in fertility between women using lubricants or not. This may be because lubricants remain near the vaginal opening or because sperm rapidly moves into the uterus before the toxic effect of the lubricant take place. Because it may be important for family planning, information about lubricant effect on sperm movement is shown below. Normal movement: Normal to mildly decreased movement: Decreased movement: Pre-Seed Fertility-Friendly Lubricant? Conceive Plus BabyDance BioGenesis by Good Clean Love SHWETHA-Actively Trying Canola Oil Astroglide FemGlide Glycerin KY Jelly KY Sensitive KY Tingling (especially severe) Orofino Oil Replens Silky Smooth Saliva What kind of lubricant should I use? There are generally three types of lubricants available. First, think about what you plan to do with them. Are you having a solo experience and don t need to worry about condoms? Are you using a silicone toy or is it made of something else? Are you with a partner who may be using a condom or dental dam made of latex? Then find one that feels comfortable to you everyone is different. It may take some trial and error, but let s find the one that feels good to you. Hopefully this guide will help you decide which ones might work for you. The three types are water based, silicone, and oil based. Water based lubricants are water-soluble and are the most widely used personal lubricants. They are good to use with silicone toys and condoms, but they get tacky over a short period of time. Examples would be: Good Clean Love (made of organic ingredients) Pulse H2Oh! Sylk Natural System Shwetha Astroglide Silicone lubricants are thicker and more slippery than water-based lubricants, so they last longer during sexual activity. It does not dry out quickly, unlike water-based lubricants. They are good to use with non-silicone toys (plastic, glass) and are good to use with condoms. Do not use silicone lubricant with other products made with silicone, like sexual toys and vibrators. These lubricants may damage the toy. Check the director of design for what type of sexual aid/toy you may have. Examples would be: Uber lube Replens Silky Smooth Pulse Aloe-ahh Wet [place] SHWETHA Premium Personal Lubricant PINK Silicone Lubricant SLIQUID Organics silk Oil based lubricants, (shown in chart above) such as virgin olive oil, canola oil, baby, oil, vitamin E oil, coconut oil, Vaseline, etc. are more readily available in the home, but are not good to use with condoms. In many women, these can cause infections. However, if you have sore spots on the vulva (outer lips), then petroleum jelly (Vaseline) can sometimes be helpful. The following table shows the osmolality and pH of some lubricants that have osmolality less than 380 mOsm/kg, as recommended by the WHO. It is intended to help you be an informed consumer. It is not meant to recommend or endorse any specific product(s). There are many lubricants you can try so you can find the one that works best for you. Try to avoid warming or scented lubricants as they can irritate the vulva. In Summary Vaginal lubricants should be used at the time of intercourse to decrease friction. Long-acting vaginal moisturizers are used at least twice weekly to increase vaginal (internal) lubrication and elasticity. Vulvar moisturizers are for external use for vulvar comfort and do not impact vaginal lubrication or elasticity. Lubricants should be applied to the outside and opening of the vagina at the time of sexual activity. The lubricant can also be applied to the penis or internal toy. Silicone based lubricants should not be used on silicone vibrators or toys. Both silicone and water-based lubricants are condom compatible. If you use a water-based lubricant, it is also important to choose a lubricant with low osmolality since lubricants with high osmolality increase the chance of irritation and infection. Vaseline petroleum products and oils (baby oil, coconut, olive oil,) can make condoms break, so should not be used with condoms. All of the products listed here are over the counter. Many can be bought in any drugstore or online. You do not need a prescription. Also, many adult stores do carry high-quality lubricant products. Remember, use a vaginal moisturizer for dry tissue, use lubricants for sexual activity. If you have any questions, please ask your doctor or sex therapist for more information. This handout is intended to help you be an informed consumer. It is not meant to recommend or endorse any specific product(s). We want you to be informed about your sexual health choices so that you can have a positive sexual experience. Your sexual health is important! documented in this encounter [facility] 10-16-2024 Note HNO ID: [id number] Author: CONRAD DODD PT Service: ? Author Type: Physical Therapist Type: Progress Notes Filed: 10/16/2024 09:27 Note Text: Episode Visit Count: 3 Therapist That Will Accept/Oversee The Plan Of Care: Alexis Anderson PT. Start of Care Date: 09/22/24 Onset Date: 09/17/19 Plan of Care Certification Date: 09/22/24 Next Certification Due Date: 10/24/24 REHABILITATION AND SPORTS THERAPY PHYSICAL THERAPY TREATMENT NOTE ASSESSMENT: Mateus Manzano tolerated the session with fatigue and expected muscle soreness. He demonstrated difficulty with LLE increased tone and fatigue during WB progressions and improvements in glute actication and recruitment during quadruped positioning into tall kneeling. The patient will continue to benefit from ongoing skilled physical therapy to progress toward set goals. PLAN FOR NEXT VISIT: Continue Bioness set-up as needed possible thigh cuffs also. Continue ambulation endurance, standing endurance without UE support, LG when feeling up for it. SUBJECTIVE: Doing okay just a little sore and slow today. My arms and shoulder are really sore. Pain: OBJECTIVE MEASURES WITH LEVEL OF FUNCTION: TREATMENT: Neuromuscular Re-Education: 1: Seated bilat prolonged hamstring stretch for tonal management 60 x4 bilat 2: STS from mat table with FWW - with no UE support with eccentric control x10 3: Static standing balance with alternating UE raises from FWW. Performed to patient fatigue, close bilat knee block. 50 sec + 40 sec + 30 sec 4: Quadruped ball rolls outs short to tall kneeling over physioball 2x10 -emphasis on glute recruitment and equal WB 5: Leg Press: 120# 2x10 - fatgieu noted throughout 6: Discussed general tonal management including prolonged WB and stretches Skilled Intervention: Skilled judgment used to assess appropriate program for balance and coordination activity. Education and demonstration for posture and positioning for tone management. Patient education as noted. Billing Neuromuscular Re-Education Treatment Minutes: 55 Skilled Treatment Time Minutes (timed and untimed codes): 55 Total Session Time (minutes): 56 Session Start Time : 827 Session Stop Time : 923 Conrad Dodd, PT [facility] 10-16-2024 History of Presen t illness Narrative Episode Visit Count: 3 Therapist That Will Accept/Oversee The Plan Of Care: Alexis Anderson PT. Start of Care Date: 09/22/24 Onset Date: 09/17/19 Plan of Care Certification Date: 09/22/24 Next Certification Due Date: 10/24/24 REHABILITATION AND SPORTS THERAPY PHYSICAL THERAPY TREATMENT NOTE ASSESSMENT: Mateus Manzano tolerated the session with fatigue and expected muscle soreness. He demonstrated difficulty with LLE increased tone and fatigue during WB progressions and improvements in glute actication and recruitment during quadruped positioning into tall kneeling. The patient will continue to benefit from ongoing skilled physical therapy to progress toward set goals. PLAN FOR NEXT VISIT: Continue Bioness set-up as needed possible thigh cuffs also. Continue ambulation endurance, standing endurance without UE support, LG when feeling up for it. SUBJECTIVE: Doing okay just a little sore and slow today. My arms and shoulder are really sore. Pain: OBJECTIVE MEASURES WITH LEVEL OF FUNCTION: TREATMENT: Neuromuscular Re-Education: 1: Seated bilat prolonged hamstring stretch for tonal management 60 x4 bilat 2: STS from mat table with FWW - with no UE support with eccentric control x10 3: Static standing balance with alternating UE raises from FWW. Performed to patient fatigue, close bilat knee block. 50 sec + 40 sec + 30 sec 4: Quadruped ball rolls outs short to tall kneeling over physioball 2x10 -emphasis on glute recruitment and equal WB 5: Leg Press: 120# 2x10 - fatgieu noted throughout 6: Discussed general tonal management including prolonged WB and stretches Skilled Intervention: Skilled judgment used to assess appropriate program for balance and coordination activity. Education and demonstration for posture and positioning for tone management. Patient education as noted. Billing Neuromuscular Re-Education Treatment Minutes: 55 Skilled Treatment Time Minutes (timed and untimed codes): 55 Total Session Time (minutes): 56 Session Start Time : 827 Session Stop Time : 923 Conrad Dodd PT documented in this encounter [facility] 10-13-2024 Telephone encounter Note Faxed office notes, consult, and imaging to Dr. Dubois office. Left message on confidential vm advising all document sent to Dr. Dubois and will need to call and schedule. Patient advised in vm no local pain management so closest [facility] and in previous message did not want to go far Annette Boone MA [facility] 10-13-2024 Miscellaneous Notes Faxed office notes, consult, and imaging to Dr. Dubois office. Left message on confidential vm advising all document sent to Dr. Dubois and will need to call and schedule. Patient advised in vm no local pain management so [facility] and in previous message did not want to go far Annette Boone MA I ordered pain consult, give him the options with the clinic , if not he can see Dr Dubois Do the needful for faxes as needed. Regards, Anay Roque MD Pt called in and was asking for a referral to pain management. He states he used to go to a place in [place] and they closed that one down then he he had to go to their branch in [place], which is further away for him. He states the provider he used to go to had a traumatic head injury and he doesn't know if he is going to come back, so he wanted to try and find something closer. Pt states he had heard of Dr Dubois in [place] fax # [phone], or asked if we had anything with [facility] that he could go through. documented in this encounter [facility] 10-13-2024 Telephone encounter Note I ordered pain consult, give him the options with the clinic , if not he can see Dr Dubois Do the needful for faxes as needed. Regards, Anay Roque MD [facility] 10-13-2024 Telephone encounter Note Pt called in and was asking for a referral to pain management. He states he used to go to a place in [place] and they closed that one down then he he had to go to their branch in [place], which is further away for him. He states the provider he used to go to had a traumatic head injury and he doesn't know if he is going to come back, so he wanted to try and find something closer. Pt states he had heard of Dr Dubois in [place] fax # [phone], or asked if we had anything with [facility] that he could go through. [facility] 10-13-2024 Note HNO ID: [id number] Author: CONRAD DODD PT Service: ? Author Type: Physical Therapist Type: Progress Notes Filed: 10/13/2024 09:01 Note Text: Episode Visit Count: 2 Therapist That Will Accept/Oversee The Plan Of Care: Alexis Anderson PT. Start of Care Date: 09/22/24 Onset Date: 09/17/19 Plan of Care Certification Date: 09/22/24 Next Certification Due Date: 10/24/24 REHABILITATION AND SPORTS THERAPY PHYSICAL THERAPY TREATMENT NOTE ASSESSMENT: Mateus Manzano tolerated the session with fatigue. He demonstrated difficulty with LLE fatigue during stepping in // bars with increased clonus and improvements in tolerance to all WB and static standing without UE support . The patient will continue to benefit from ongoing skilled physical therapy to progress toward set goals. PLAN FOR NEXT VISIT: Continue Bioness set-up as needed. Continue ambulation endurance, standing endurance, LG when feeling up for it. SUBJECTIVE: Doing alright. I was in the ER over the week with a fever I haven't been doing too much over this weekend so I didn't do too much walking so would like to do more overground today vs. TM. Pain: Pain Pain Level: 1 Pain Location: Hip - Left, Hip - Right OBJECTIVE MEASURES WITH LEVEL OF FUNCTION: Balance Static Standing Balance Comments: Unsupported standing at FWW: 35 seconds TREATMENT: Neuromuscular Re-Education: 1: Bioness set-up: LLE lower cuff only for facilitation 2: STS from mat table with FWW - stand <>sit without UE support x10 3: Standing at FWW with no UE support: 35 seconds 4: In // bars: Fwd walking with 1 UE support ~10 ft bouts. Occasional BUE support. Multiple trials throughout. 5: -Fwd <> Backwards steping with BUE support - ~10 ft bouts x3. Fatigue noted towards end of trails. 6: -Trial lateral stepping with UE support ~10 ft bouts x2 - fatigue noted 7: Seated static hamstring stretch 30 hold x4 Skilled Intervention: Skilled judgment used to assess appropriate program for balance and coordination activity. Ensured patient safety with use of gait belt. Patient education as noted. Billing Neuromuscular Re-Education Treatment Minutes: 57 Skilled Treatment Time Minutes (timed and untimed codes): 57 Total Session Time (minutes): 58 Session Start Time : 800 Session Stop Time : 858 Conrad Dodd PT [facility] 10-09-2024 Discharge summary [facility] 10-09-2024 Radiology Diagnostic study note [facility] Imaging Services [address], [place] [address] Chest 1 View (Portable) MR#: [id number] Acct: [id number] Name: MATEUS MANZANO Rep #: [id number] : 1985 M 39 From: Vazquez Goldsmith DO PCP: Dr. Anay Roque MD Status: REG E R Study:Chest 1 View (Portable) Date of Exam: 10/09/24 Exam# [id number] Ordering Dr: Сергей Phan MD PROCEDURE: CHEST 1 VIEW (PORTABLE) 10/09/2024 REASON FOR EXAM: FEVER TECHNIQUE: Frontal view of the chest. COMPARISON: 01/02/2024 FINDINGS: Cardiomediastinal silhouette is within normal limits. Improved aeration of the lung bases without a residual consolidation. Mild elevation of the right hemidiaphragm, progressed from prior. No sizable pleural effusion or pneumothorax. RAD/Chest 1 View (Portable) IMPRESSION: 1. No acute airspace abnormality. 2. Elevated right hemidiaphragm, progressed from prior Reading Location: [facility] CC: Dr. Сергей Phan MD; Dr. Anay Roque MD ~ [employer]: Signed [facility] 10-09-2024 Note [facility] 10-09-2024 Discharge summary Note Date/Time October 09, 2024 9:25pm [facility] Medical Records Department [address] [place] [id number] Emergency Department Summary 10/09/24 MR#: [id number] Acct: [id number] Name: MATEUS MANZANO Rep #:[id number] : 1985 39 From: Сергей Phan MD PCP: Dr. Anay Roque MD Status:REG E R Location: ED HPI History of Present Illness Chief Complaint: Complaint Narrative Narrative: 39-year-old male past medical history of paraplegia, has to perform self-catheterization presents with fever today. He took Tylenol prior to arrival. He states he went to urgent care because he was having more urinary frequency and low back pain. He rated his pain a 4 out of 10 and took Tylenol and feels that its improved to 3. No colicky pain in his back. He has history of chronicback pain, however. No recent chills or cough. No shortness of breath. However, he developed body aches on the way here. As he had gone to urgent care, he gave him a urine sample, but they stated that he did not have an infection and he had elevated temperature above 100 ?F there. He presents because of the fever. [facility] Medical History Smoker MTHFR mutation Factor 5 Leiden mutation, heterozygous Low testosterone in male Abscess Paraplegia Home Medications ?Medication ?Instructions ?Recorded ?Last Taken ?Type baclofen 20 mg tablet 10 mg PO BID spasms 03/18/13 01/02/24 History morphine 30 mg tablet,extended 15 mg PO Q12H pain 06/3001/02/24 History release pregabalin 150 mg capsule (Lyrica) 200 mg PO BID nerve pain 08/31/15 01/02/24 History rivaroxaban 20 mg tablet (Xarelto) 20 mg PO DAILY bloo d thinner 08/31/15 Unknown History tizanidine 2 mg capsule (Zanaflex) 2 mg PO BID muscle relaxer 02/18/21 01/02/24 History clomiphene citrate 50 mg tablet 50 mg PO QODAY Testost erone 11/14/21 Unknown History (Serophene) hydroxyzine pamoate 25 mg capsule 25 mg PO TID PRN PRN Anxiety #30 11/14/21 Unknown Rx caps prednisone 20 mg tablet 60 mg (3 x 20 mg) PO DAILY 0 11/14/21 01/02/24 Rx inflammation #15 tabs diclofenac sodium 50 mg 50 mg PO BID PRN PRN pain 01/02/24 History tablet,delayed release levofloxacin 750 mg tablet 750 mg PO DAILY 6 days #6 t abs 01/03/24 Unknown Rx sulfamethoxazole 800 1 tab PO BID #14 TABLETS Unknown Rx mg-trimethoprim 160 mg tablet Allergy/AdvReac Type Severity Reaction Status Date / Time codeine Allergy Other Verified 10/09/24 18:53 piperacillin sodium (From Allergy Hives Verified 10/09/24 18:53 Zosyn) tazobactam sodium (From Allergy Hives Verified 10/09/24 18:53 Zosyn) acetaminophen (From Vicodin) AdvReac Other Verified 10/09/24 18:53 hydrocodone bitartrate (From AdvReac Other Verified 10/09/24 18:53 Vicodin) Social History Smoking Status: Current every day smoker tobacco type: cigarettes ROS ROS ED ROS Narrative Review of systems positive for fever, exacerbation of chronic low back pain. Nonausea or vomiting. No cough. Positive myalgias/body aches. Positive urinary frequency. EXAM Physical Exam Narrative Exam Narrative: Afebrile. Vital signs noted. Nontoxic-appearing. Cardiovascular examination reveals mild tachycardia. Lungs are clear to auscultation bilaterally. Abdomensoft and nontender. Neurological examination consistent with paraplegia. Const Vital Signs: 10/09/24 18:53 10/09/24 20:53 Temperature 99.7 F H Temperature Source Oral Pulse Rate 110 H 98 Respiratory Rate 16 16 Blood Pressure 151/89 H Blood Pressure Mean 109 Pulse Ox 95 91 Oxygen Delivery Method Room Air Room Air MDM MDM MDM Narrative Medical decision making narrative: Differential diagnosis includes but not limited to pneumonia versus urinary tract infection versus viral syndrome. Patient had taken Tylenol prior to arrival, hence he only has slightly elevated temperature of 99.7 here. I discussed with him imaging. I do not feel that he requires a CT of the abdomen pelvis. Additionally, I have a low suspicion for paraspinal abscess. I reviewed his laboratory work and he has slight leukocytosis of 12.1 which I think is nonspecific, hemoglobin hemoconcentrated at 16.6 with hematocrit 48.3, platelet count normal at 150. Electrolyte panel is grossly unremarkable with normal LFTs, normal sodium and potassium and chloride. BUN normal at 8 and creatinine 0.85. His urinalysis is negative for infection in the sense that it is negative for nitrites with 500 leukocyte esterase and 5-10 WBCs. When compared to prior urinalyses, he has had at least 10-25 in his white cells. I do not feel immediate antibiotics are indicated. His urine was sent for culture. His respiratory swab is negative for COVID, influenza, and RSV. Chestx-ray in 1 view interpreted by myself independently shows no evidence of pneumonia or pneumothorax. He does have elevated right hemidiaphragm. I reviewed the radiology report which confirms my independent interpretation. Upon repeat examination, he states that he feels improved. I feel he can be discharged to follow-up with his primary care provider. He was told that he will be contacted should his urine culture become positive. He is motivated fordischarge. I do not feel he requires observation or further imaging or testing. Return instructions to the emergency department were reviewed. Disposition is discharged home in stable condition. History & Record Review Discussion w/independent historian: Patient Lab Data Attestation: I reviewed the patient's lab results. Labs: Laboratory Results - last 24 hr 10/09/24 10/09/24 19:13 19:36 WBC 12.1 H RBC 5.25 Hgb 16.6 H Hct 48.3 MCV 92.0 MCH 31.6 MCHC 34.4 RDW Std Deviation 46.4 H RDW Coeff of Shahla 13.6 Plt Count 150 MPV 10.7 Immature Gran % (Auto) 0.400 Neut % (Auto) 86.1 H Lymph % (Auto) 8.0 L [place] % (Auto) 4.5 Eos % (Auto) 0.5 Baso % (Auto) 0.5 Absolute Neuts (auto) 10.4 H Absolute Lymphs (auto) 0.97 Nucleated RBC % 0 Sodium 138 Potassium 3.8 Chloride 104 Carbon Dioxide 23.6 Anion Gap 11 BUN 8 Creatinine 0.85 Estim Creat Clear Calc 165.14 Est GFR (MDRD) Non-Af 113 BUN/Creatinine Ratio 9.3 L Glucose 103 H Calcium 9.2 Total Bilirubin 0.63 AST 19 ALT 23 Alkaline Phosphatase 83 Total Protein 7.1 Albumin 4.0 Globulin 3.1 Albumin/Globulin Ratio 1.3 Urine Color Yellow Urine Clarity Clear Urine pH 7.0 Ur Specific [place] 1.005 Urine Protein 15 H Urine Glucose (UA) Normal Urine Ketones Negative Urine Occult Blood 10 H Urine Nitrite Negative Urine Bilirubin Negative Urine Urobilinogen Normal Ur Leukocyte Esterase 500 H Urine RBC 0 SEEN Urine WBC 5-10 SEEN Ur Squamous Epith Cells 0 SEEN Urine Bacteria 0 SEEN Urine Mucus 0 SEEN Radiography Diagnostic Testing: Clinical Impression(s) from Imaging Studies Chest X-Ray 10/09/24 19:29 IMPRESSION: 1. No acute airspace abnormality. 2. Elevated right hemidiaphragm, progressed from prior Reading Location: [facility] Discharge Plan Triage Chief Complaint: Complaint ED Provider: Сергей Phan Dx/Rx/DC Orders Clinical Impression: Fever, Viral syndrome Instructions: ED FUO Adult, ED Viral Syndrome (Adult) Prescriptions: No Action morphine 30 MG tablet 15 mg PO Q12H Patient Comments: pain baclofen 20 MG tablet 10 mg PO BID pregabalin [Lyrica] 150 MG capsule 200 mg PO BID Patient Comments: nerve pain Xarelto 20 MG tablet 20 mg PO DAILY Patient Comments: blood thinner tizanidine [Zanaflex] 2 mg Capsule 2 mg PO BID clomiphene citrate [Serophene] 50 mg Tablet 50 mg PO QODAY prednisone 20 MG tablet 60 mg PO DAILY Qty: 15 0RF hydroxyzine pamoate 25 MG capsule 25 mg PO TID PRN PRN (Reason: Anxiety) Qty: 30 0RF Rx Instructions: 1 to 2 tablets 3 times a day as needed for itch diclofenac sodium 50 mg tablet,delayed release (DR/EC) 50 mg PO BID PRN PRN (Reason: pain) levofloxacin 750 mg Tablet 750 mg PO DAILY 6 Days Qty: 6 0RF sulfamethoxazole-trimethoprim 800-160 mg tablet 1 tab PO BID Qty: 14 0RF Primary Care Provider: Anay Roque Referrals: Anay Roque MD [Primary Care Provider] - 3-5 Days if not improving Activity Restrictions/Additional Instructions: Your urine has been sent for culture. They will call you in a few days if you require antibiotics. Continue Tylenol or ibuprofen as needed for fever and pain. Return with sustained high fever, new or worsening symptoms. Print Language: Azeri Disposition Disposition: Home, Self Care What to do if you have Problems For any increased pain, shortness of breath, bleeding, nausea or vomiting, chestpain, or any unexpected problems, contact your Primary Care Provider. Call [facility] ([phone]) or report to the closest Emergency Room. Call 911 if necessary. 10/09/242124 <Electronically signed by Сергей Phan MD> Cosigner Signature (if applicable): CC: Dr. Anay Roque MD ~ Signed [facility] Work Phone: [phone] 268-159704-23-2025 Telephone encounter Note* Telephone Encounter - Jimena Kramer PA-C - 10/08/2024 8:29 AM EDT The following approved medication requests have been transmitted electronically. Requested Prescriptions Signed Prescriptions Disp Refills baclofen 20 mg tablet 120 tablet 5 Sig: Take 2 tablets by mouth two times a day. Authorizing Provider: JIMENA KRAMER PA-C [facility]04-23-2025 Miscellaneous Notes* Telephone Encounter - Jimena Kramer PA-C - 10/08/2024 8:29 AM EDT The following approved medication requests have been transmitted electronically. Requested Prescriptions Signed Prescriptions Disp Refills baclofen 20 mg tablet 120 tablet 5 Sig: Take 2 tablets by mouth two times a day. Authorizing Provider: JIMENA KRAMER PA-C * Telephone Encounter - Hortensia Vasquez - 10/08/2024 8:24 AM EDT Source : mychart from patient requesting refill. Delivery : e-script Requested Prescriptions Pending Prescriptions Disp Refills baclofen 20 mg tablet 120 tablet 5 Sig: Take 2 tablets by mouth two times a day. DX : Patient last seen: 08/25/2024 Next Appointment : None Hortensia Ramírez [facility] Telephone encounter Note * Telephone Encounter - Hortensia Vasquez - 10/08/2024 8:24 AM EDT Source : mychart from patient requesting refill. Delivery : e-script Requested Prescriptions Pending Prescriptions Disp Refills baclofen 20 mg tablet 120 tablet 5 Sig: Take 2 tablets by mouth two times a day. DX : Patient last seen: 08/25/2024 Next Appointment : None Hortensia Ramírez [facility] Work Phone: [phone] Telephone encounter Note* Telephone Encounter - Jami Herndon MA - 10/03/2024 11:56 AM EDT Patient notified. [facility]04-18-2025 Miscellaneous Notes* Telephone Encounter - Jami Herndon MA - 10/03/2024 11:56 AM EDT Patient notified. * Telephone Encounter - Anay Roque MD - 10/03/2024 10:28 AM EDT Please inform patient of very low vitamin d levels, We are giving her replacement doses, sent to her regular pharmacy. This might help in the overall mood and energy. He needs to take it immediately after eating. The urine culture did not show any particular bacteria, possible the sample was not collected properly. No infection that needs to be treated at this time. Regards, Anay Roque MD * Telephone Encounter - Eunice Candelario RN - 10/02/2024 12:43 PM EDT Pt viewed his lab results on [facility]. He is concerned with the urine and vit D results. Please advise patient. Marge's Isabel. [facility] Telephone encounter Note * Telephone Encounter - Anay Roque MD - 10/03/2024 10:28 AM EDT Please inform patient of very low vitamin d levels, We are giving her replacement doses, sent to her regular pharmacy. This might help in the overall mood and energy. He needs to take it immediately after eating. The urine culture did not show any particular bacteria, possible the sample was not collected properly. No infection that needs to be treated at this time. Regards, Anay Roque MD [facility]04-17-2025 Telephone encounter Note* Telephone Encounter - Eunice Candelario RN - 10/02/2024 12:43 PM EDT Pt viewed his lab results on [facility]. He is concerned with the urine and vit D results. Please advise patient. Marge's Isabel. [facility]04-15-2025 Instructions* Patient Instructions* Anay Roque MD - 09/30/2024 10:36 AM EDT We discussed your spinal cord injury and related conditions: - You are doing well with physical therapy and have noticed improvements in your mobility, including walking up and down five steps. Continue with your physical therapy as planned. - You are currently taking the following medications: Clomiphene, Diazepam as needed, Hydroxyzine, Singulair, Morphine 15 mg twice daily, Pregabalin 200 mg twice daily, Tizanidine 4 mg, Baclofen 20 mg twice daily, and Xarelto. You are in the process of weaning down on Baclofen and Tizanidine, whichis going well. Continue this process as discussed. - You had your Baclofen pump surgically removed and are doing well without it. We discussed your neurogenic bladder and recurrent UTIs: - You are performing intermittent catheterizations 8-12 times daily due to your high fluid intake. - A urine sample was collected today to screen for a possible urinary tract infection (UTI) due to cloudy urine this morning. We will contact you with the results and next steps if needed. We discussed your tobacco use: - You are ready to quit smoking. I have prescribed the highest dose nicotine patch for two months. In November, you will transition to the next dose, followed by the lowest dose in December. This plan gives you four months to quit smoking. Please follow this schedule and let us know if you need additional support. We discussed your sleep apnea: - You are not currently using a CPAP machine and report that your snoring has improved since reducing your medications. Continue monitoring your symptoms and let us know if you experience any issues. We discussed your diet and fluid intake: - You are drinking a significant amount of water, Gatorade, and other fluids. You are also working on reducing your intake of energy drinks, which is a positive step. Continue to focus on water-basedbeverages and limit sugary or caffeinated drinks. - Your diet includes eggs, fish, venison, and occasional vegetarian meals. This is a good variety; continue to focus on balanced meals. Follow-up: - We will contact you with the results of your urine test. - Please continue with your physical therapy and medication adjustments as discussed. - If you experience any new or worsening symptoms, please contact our office. documented in [facility] encounter[facility] Note[facility]04-15-[facility]25 History of Present illness Narrative* Anay Roque MD - 09/30/2024 10:14 AM EDT Reason for Visit Tobacco abuse in remission. KATIE Perez is a 39-year-old male with a history of T7-T12 spinal cord injury resulting in paraplegia, chronic pain syndrome, severe tobacco use disorder, sleep apnea, neurogenic bladder, and morbid obesity, presenting for a 6-month follow-up. Mateus reports significant improvement in his condition, stating he feels really good and is back in physical therapy. He notes that his leg function has improved, attributing this to physical therapy rather than any changes in medication. He is also undergoing physical therapy for his shoulders due to discomfort from prolonged use of a wheelchair. He requests screening for a UTI, noting that his urine appeared cloudy this morning. He performs intermittent catheterizations 8-12 times daily and reports high fluid intake, including 4-5 bottles ofwater (16 oz each), 2-3 bottles of Gatorade, and 2 cans of Monster energy drinks daily. He is attempting to reduce his consumption of Monster energy drinks, previously consuming 4-5 cans daily. He also drinks a small amount of Sprite at night to settle his stomach and occasionally drinks coffee, but avoids black tea due to throat swelling. Mateus is currently on multiple medications, including clomiphene, diazepam as needed, hydroxyzine, Singulair, morphine 15 mg BID, pregabalin 200 mg BID, tizanidine 4 mg, and Xarelto. He is in the process of weaning off baclofen, currently taking 20 mg BID, and plans to reduce tizanidine to 1 tabletBID. He reports that diazepam has been effective in managing leg tremors and notes significant improvement since the removal of his baclofen pump, stating he can now stand and walk better, even managing to walk up and down five steps. Mateus expresses interest in stem cell therapy to heal his nerves and improve muscle strength in hislegs. He cites reports of successful outcomes in other patients and has previously received stem cell injections in his lower back, which provided significant pain relief for about four months. He believes that smoking may hinder the effectiveness of stem cell therapy and expresses a strong desire to quit smoking, requesting assistance with a nicotine patch. He reports that he no longer uses his CPAP machine, attributing this to a reduction in medication and noting that he only snores when lying flat on his back. Social History Tobacco Use Smoking status: Every Day Current packs/day: 1.00 Average packs/day: 1 pack/day for 18.0 years (18.0 ttl pk-yrs) Types: Cigarettes Passive exposure: Current Smokeless tobacco: Former Types: Chew Quit date: 01/19/2005 Vaping Use Vaping status: Never Used Substance Use Topics Alcohol use: Yes Comment: rarely Drug use: No Past medical history, appointments, medications, allergies reviewed. Pertinent Lab/Diagnostic Studies are reviewed and discussed today Current Outpatient Medications: clomiPHENe (CLOMID) 50 mg tablet sildenafil (REVATIO) 20 mg tablet baclofen 20 mg tablet diazePAM (VALIUM) 2 mg tablet tiZANidine (ZANAFLEX) 4 mg tablet XARELTO 20 mg tablet hydrOXYzine pamoate (VISTARIL) 25 mg capsule albuterol (PROVENTIL) 2.5 mg /3 mL (0.083 %) nebulizer solution ondansetron orally disintegrating (ZOFRAN ODT) 4 mg disintegrating tablet montelukast (SINGULAIR) 10 mg tablet morphine SR (MS CONTIN, ORAMORPH SR) 15 mg 12 hr tablet acetaminophen (TYLENOL EXTRA STRENGTH) 500 mg tablet Pregabalin (LYRICA) 200 mg capsule lidocaine (XYLOCAINE) 5 % ointment nicotine (NICODERM) 21 mg/24 hr [START ON 11/30/2024] nicotine (NICODERM) 14 mg/24 hr [START ON 12/30/2024] nicotine (NICODERM) 7 mg/24 hr Current Facility-Administered Medications: ondansetron (PF) 4 mg injection (ZOFRAN) Health Maintenance Spirometry Depression Screening Anxiety Screening Hepatitis C Screening Hepatitis B Vaccine(1 of 3 - 19+ 3-dose series) Pneumococcal Vaccine(1 of 2 - PCV) Influenza Vaccine(1) Covid-19 Vaccine( season)@ Review Of Systems Genitourinary: (+) cloudy urine Physical Exam BP 147/78 Pulse 74 Ht 193 cm (6' 4) Wt 122.5 kg (270 lb) SpO2 96% BMI 32.87 kg/m GENERAL: In a wheelchair, alert and oriented, comfortable SKIN: Upper arms and torso are filled with tattoos. HEAD: Normocephalic. OROPHARYNX: Lips, mucosa, and tongue normal, good dentition. No oral lesions noted. NECK: Supple, no lymphadenopathy, normal thyroid, no carotid bruits. LUNGS: Clear to auscultation bilaterally, no wheezes/rhonchi/rales. HEART: Regular rate and rhythm, no murmurs. No ectopy. NEURO: Awake, alert and oriented x3, cranial nerves II-XII grossly intact, normal gait, no involuntary motions. Labs: - Factor V Leiden positivity Assessment and Plan 1. Encounter for smoking cessation counseling (Z71.6) Tobacco abuse disorder (Z72.0) Severe tobacco use disorder. Patient is motivated to quit smoking to improve overall health and enhance the effectiveness of potential stem cell treatments. - Initiated nicotine patch therapy with the highest dose for 2 months, followed by a gradual reduction over the next 2 months. - Provided counseling on the benefits of smoking cessation, including improved healing and reduced risk of complications. 2. KARAN (obstructive sleep apnea) (G47.33) Patient reports significant improvement in snoring and sleep quality after discontinuing certain medications. Currently not using CPAP therapy. - Monitor sleep quality and symptoms. - Re-evaluate the need for CPAP therapy if symptoms worsen. 3. Neurogenic bladder (N31.9) Recurrent UTI (N39.0) Neurogenic bladder secondary to spinal cord injury, leading to recurrent UTIs. Patient performs intermittent catheterization 8-12 times daily due to high fluid intake. Reports cloudy urine this morning, raising suspicion for a UTI. - Ordered urinalysis to screen for UTI. - Advised patient to maintain adequate hydration and monitor for signs of infection. 4. Spinal cord injury, T7-T12 (HCC) (S24.103A) Paraplegia, complete (HCC) (G82.21) Patient has a history of spinal cord injury from T7 to T12, resulting in complete paraplegia. Currently engaged in physical therapy, reporting improved leg function and mobility. Patient expresses interest in stem cell therapy to further enhance nerve healing and muscle strength. - Continue physical therapy to improve mobility and strength. - Discussed potential benefits and limitations of stem cell therapy; patient is exploring clinical trials. 5. Onychomycosis (B35.1) 6. Ingrown toenail (L60.0) 7. Chronic pain syndrome (G89.4) Chronic pain managed with a combination of medications, including morphine 15 mg BID, pregabalin 200 mg BID, tizanidine 4 mg, and baclofen 20 mg BID. Patient reports significant pain relief from previous stem cell injections. - Continue current pain management regimen. - Monitor for side effects and adjust medications as needed. 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 Voice recognition software was used to compose this office note. Please excuse any unintended typographical errors. Recording using ambient [employer]ai[employer] software for draft documentation of the visit was discussed with the patient/authorized inside account representative; all questions welcomed and answered. Patient/authorized inside account representative agreed to proceed Anay Roque MD documented in this encounterAden[facility]04-08-2025 History of Present illness Narrative* Alexis Anderson, PT - 09/23/2024 11:22 AM EDT Program_ID:[id number] Access Code: [email or web address] URL: [email or web address] Date: 09-23-2024 Prepared By: Alexis Anderson Program Notes Exercises - Seated Shoulder Scaption AAROM with Prasad at Side - 2 x daily - 7 x weekly - 2 sets - reps - Supine Shoulder Flexion Extension AAROM with Dowel - 2-3 x daily - 7 x weekly - 2-3 sets - 10-15 reps - Supine Shoulder Abduction AAROM with Dowel - 2-3 x daily - 7 x weekly - 2-3 sets - 10-15 reps - Single Arm Scaption with Dumbbell - 2 x daily - 7 x weekly - 2-3 sets - 10-12 reps - Shoulder External Rotation and Scapular Retraction with Resistance - 2 x daily - 7 x weekly - 2-3 sets - 10 reps - Standing Shoulder External Rotation Stretch in Doorway - 2 x daily - 7 x weekly - sets - 3-5 reps * Alexis Anderson, PT - 09/23/2024 10:46 AM EDT Episode Visit Count: 2 Therapist That Will Accept/Oversee The Plan Of Care: Alexis Anderson PT. Start of Care Date: 09/22/24 Onset Date: 09/17/19 Plan of Care Certification Date: 09/22/24 Next Certification Due Date: 10/24/24 Patient Identified by Name and Date of : Yes REHABILITATION AND SPORTS THERAPY PHYSICAL THERAPY TREATMENT NOTE ASSESSMENT: Mateus Manzano tolerated the session with expected muscle soreness. He demonstrated inability to tolerate side lying this date - discontinued side lying ER exercises. The patient will continue to benefit from ongoing skilled physical therapy to progress toward set goals. PLAN FOR NEXT VISIT: Isometrics as tolerated SUBJECTIVE: Patient reports doing good overall since beginning PT. Shoulders seemed to be looseningup a little bit. Patient reports lifting wheelchair to put in backseat (4-5x a day) can cause R Shoulder flares. Reports a lot of in & out of the car yesterday as well as a lot of throwing. Pain: Pain Pain Location: Shoulder - Left, Shoulder - Right Post Treatment Pain Post Treatment Pain Level: No Change Post Treatment Pain Location: Shoulder - Left, Shoulder - Right OBJECTIVE MEASURES WITH LEVEL OF FUNCTION: Demonstrated pinch on the R side at 120 degrees ABD during pulleys. TREATMENT: Therapeutic Exercise: 1: Scaption Pulleys: 3 Min. 2: ABD Pulleys: 3 Min. No pushing into pain. 3: HL Flexion AAROM: 3x10, 1-2 hold, 3# added. 4: HL BINA ABD AAROM: 3x10, 1-2 hold. 5: *Seated ER Pull-Aparts: 3x10, 2BTB. 6: Seated Scaption Lifts: 2x10 each, 3#. Discussed weight and band use at home. 7: ER Stretch: 3x30 each. 8: Discussed [employer] use for home. Skilled Intervention: Patient was educated in proper exercise technique and purpose for exercises. Reviewed and educated patient on additions/changes for home exercise program as above (*). Skilled judgment was used in selection of appropriate interventions. Provided written instruction for home exercise program to facilitate proper performance and compliance. Correct performance of therapeutic exercises was facilitated with verbal and tactile cuing. Billing Therapeutic Exercise Treatment Minutes: 42 Skilled Treatment Time Minutes (timed and untimed codes): 42 Total Session Time (minutes): 45 Session Start Time : 1045 Session Stop Time : 1130 Alexis Anderson PT documented in this encounterAdena [facility]04-08-2025 NoteWilson [facility]04-07-2025 NoteHNO ID: [id number] Author: CUONG MONROY PT Service: ? Author Type: Physical Therapist Type: Progress Notes Filed: 09/23/2024 10:34 Note Text: Episode Visit Count: 1 Therapist That Will Accept/Oversee The Plan Of Care: Jonathan Monroy Start of Care Date: 09/22/24 Onset Date: 09/17/19 Plan of Care Certification Date: 09/22/24 Next Certification Due Date: 12/21/24 Patient Identified by Name and Date of : Yes REHABILITATION AND SPORTS THERAPY PHYSICAL THERAPY EVALUATION PLAN OF CARE: Assessment: Mateus Manzano presents with diagnosis of T4 Incomplete SCI that interferes with rising from a chair, standing, walking, walking in the house, physical activities, recreational activities . He is well known to this clinic. The patient presents with impairments in balance, flexibility, gait, independence in exercise, overall function, strength, and symptom management. PROMIS? (Patient-Reported Outcomes Measurement Information System) scores were reviewed and identified as a rehabilitation concern. Prognosis for therapy is Good due to: current objective clinical presentation . The patient had his ITB pump removed in June of this year and is having his tone medically managed with oral medication and botox injections in his hip flexors. The patient will benefit from skilled therapy services to meet the goals established for this plan of care as noted below. Goals for Episode of Care: established 09/22/24 Patient will demonstrate current home exercise program independently. Improve five time sit to stand to 12 seconds to decrease risk of falls with single UE assist vs both. Improve score on Timed Up and Go to <12 sec to decrease risk of falls . Improve 10 meter walk speed to >0.8 m/s to improve community ambulation with use of single forearm crutch. Patient Goals: To get back to walking Time Frame for Goals and Treatment : 10/04/24 Planned Interventions, Frequency, and Duration: Current Frequency: 2x/week Duration: 12 weeks Total Number of Visits Planned: 24 Planned Treatment Interventions: Therapeutic exercise (87015), Neuromuscular re-education (43843), Manual therapy (06135), Therapeutic activities (16294), Self-prison management (85865), Gait Training (66032), Patient/Family/Caregiver Education, Body Mechanics Training, Functional training, General Conditioning PLAN FOR NEXT VISIT: Bioness set up left side, use of litegait for safety - TM if able. Patient demonstrates good understanding of plan of care and treatment. The above goals and plan of care were discussed and agreed upon by patient/family. SUBJECTIVE: Reports that his RCT are weak and he reports that he is seeing PT in [place] for his shoulders and is working on strengthening and range of motion. Reports that he no longer has his ITB pump it began to wear through his skin. He is taking oral baclofen and Tizanidine, Diazepam and his tone is managed well with this current regiment. Since the last time he was here he had cellulitis and Pneumonia and was hospitalized. 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 Last time he walked and did steps was in March. Patient Goals: To get back to walking Functional Limitations: rising from a chair, standing, walking, walking in the house, physical activities, recreational activities Prior Level of Function: Independent with restrictions Independent with the following restrictions: Wheelchair user Relevant History Past Relevant Medical Conditions: Circulation / Vascular Issues, Lower Extremity Edema, Repeated Infections (SCI, Recurrent UTIs, and DVT.) Past Relevant Surgical Conditions: (B Carpal tunnel Release; ITB pump removal 06/2024) Right or Left Handed: Right Employment: Medically Disabled Hobbies / Interests: hunting, working on cars Home Environment Patient Lives With: Family Assistance Available: Part-Time Home Type: [place], Multi-Level with First Floor Set-Up Entry To Home: Ramp Equipment Owned: Wheelchair- Manual, Crutch(es), Walker- Wheeled, Shower Chair Transportation: Drives independently using foot controls/hand controls Intake Information: Prescription present Previous Treatment: Physical Therapy , Occupational Therapy, Pain meds , Muscle relaxer Falls Interview: No positive findings with falls interview Aquatic Screen: No High Intensity Gait Training (HIGT) Screen: Yes Precautions to HIGT: No known precautions Pain: Pain Pain Level: 1 Pain Location: Hip - Left, Hip - Right Post Treatment Pain Post Treatment Pain Level: No Change PROMIS Scales 09/16/2024 08/09/2023 11/15/2022 Higher is Better Phys Func - T Score 35 (moderate dysfunction) 41 (mild dysfunction) 39 (moderate dysfunction) Phys Func - Percentile 7 18 14 Self-Eff Symptom - T Score 46 (Average) Self-Eff Symptom - Percentile 34 Proxy-reported 11/15/2022 10/02/2022 08/31/2022 Lower is Better Pain Interference - T (more content not included)...[facility] 09-22-2024 History of Present illness Narrative* Cuong Monroy, PT - 09/22/2024 10:04 AM EDT Images from the original note were not included. Episode Visit Count: 1 Therapist That Will Accept/Oversee The Plan Of Care: Jonathan Monroy Start of Care Date: 09/22/24 Onset Date: 09/17/19 Plan of Care Certification Date: 09/22/24 Next Certification Due Date: 12/21/24 Patient Identified by Name and Date of : Yes REHABILITATION AND SPORTS THERAPY PHYSICAL THERAPY EVALUATION PLAN OF CARE: Assessment: Mateus Manzano presents with diagnosis of T4 Incomplete SCI that interferes with risingfrom a chair, standing, walking, walking in the house, physical activities, recreational activities. He is well known to this clinic. The patient presents with impairments in balance, flexibility, gait, independence in exercise, overall function, strength, and symptom management. PROMIS (Patient-Reported Outcomes Measurement Information System) scores were reviewed and identified as a rehabilitation concern. Prognosis for therapy is Good due to: current objective clinical presentation . The patient had his ITB pump removed in June of this year and is having his tone medically managed withoral medication and botox injections in his hip flexors. The patient will benefit from skilled therapy services to meet the goals established for this plan of care as noted below. Goals for Episode of Care: established 09/22/24 Patient will demonstrate current home exercise program independently. Improve five time sit to stand to 12 seconds to decrease risk of falls with single UE assist vs both. Improve score on Timed Up and Go to <12 sec to decrease risk of falls . Improve 10 meter walk speed to >0.8 m/s to improve community ambulation with use of single forearm crutch. Patient Goals: To get back to walking Time Frame for Goals and Treatment : 10/04/24 Planned Interventions, Frequency, and Duration: Current Frequency: 2x/week Duration: 12 weeks Total Number of Visits Planned: 24 Planned Treatment Interventions: Therapeutic exercise (87678), Neuromuscular re- education (40846), Manual therapy (03272), Therapeutic activities (53669), Self- prison management (86379), Gait Training (49413), Patient/Family/Caregiver Education, Body Mechanics Training, Functional training, General Conditioning PLAN FOR NEXT VISIT: Bioness set up left side, use of litegait for safety - TM if able. Patient demonstrates good understanding of plan of care and treatment. The above goals and plan of care were discussed and agreed upon by patient/family. SUBJECTIVE: Reports that his RCT are weak and he reports that he is seeing PT in [place] for his shoulders and is working on strengthening and range of motion. Reports that he no longer has his ITB pump it began to wear through his skin. He is taking oral baclofen and Tizanidine, Diazepam and his tone is managed well with this current regiment. Since the last time he was here he had cellulitis and Pneumonia and was hospitalized. 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 Last time he walked and did steps was in March. Patient Goals: To get back to walking Functional Limitations: rising from a chair, standing, walking, walking in the house, physical activities, recreational activities Prior Level of Function: Independent with restrictions Independent with the following restrictions: Wheelchair user Relevant History Past Relevant Medical Conditions: Circulation / Vascular Issues, Lower Extremity Edema, Repeated Infections (SCI, Recurrent UTIs, and DVT.) Past Relevant Surgical Conditions: (B Carpal tunnel Release; ITB pump removal 06/2024) Right or Left Handed: Right Employment: Medically Disabled Hobbies / Interests: hunting, working on cars Home Environment Patient Lives With: Family Assistance Available: Part-Time Home Type: [place], Multi-Level with First Floor Set-Up Entry To Home: Ramp Equipment Owned: Wheelchair- Manual, Crutch(es), Walker- Wheeled, Shower Chair Transportation: Drives independently using foot controls/hand controls Intake Information: Prescription present Previous Treatment: Physical Therapy , Occupational Therapy, Pain meds , Muscle relaxer Falls Interview: No positive findings with falls interview Aquatic Screen: No High Intensity Gait Training (HIGT) Screen: Yes Precautions to HIGT: No known precautions Pain: Pain Pain Level: 1 Pain Location: Hip - Left, Hip - Right Post Treatment Pain Post Treatment Pain Level: No Change PROMIS Scales 09/16/2024 08/09/2023 11/15/2022 Higher is Better Phys Func - T Score 35 (moderate dysfunction) 41 (mild dysfunction) 39 (moderate dysfunction) Phys Func - Percentile 7 18 14 Self-Eff Symptom - T Score 46 (Average) Self-Eff Symptom - Percentile 34 Proxy-reported 11/15/2022 10/02/2022 08/31/2022 Lower is Better Pain Interference - T Score 61 (moderate) 66 (moderate) 62 (moderate) Pain Interference - Percentile 14 5 12 T-scores: mean of general population = 50. 5 points is clinically meaningfully difference Percentiles provide an indication of how the patient's score ranks in relation to the general population. Higher percentile rankings indicate better function/quality of life. 50th percentile is the average of the general population and indicates half of respondents had a worse score. OBJECTIVE MEASURES WITH LEVEL OF FUNCTION: Posture / Alignment Posture: Forward head, Rounded shoulders Sensory Sensory Deficits: Light Touch, Proprioception, Hot/Cold Light Touch: Impaired Proprioception: Impaired Proprioception Deficit Comments: right leg mostly Hot/Cold: Impaired Tone Tone: Spastic, Clonus, Hypertonic Clonus Comments: Equaly Bilaterally Tone Testing: Modified Dannie Scale Lower Extremity R Knee Extensor: 1+: Slight increase in tone, manifiested by a catch followed by min resistance throughout remainder (less than 1/2) R Knee Flexor: 2: Marked increase in tone through most of ROM but effected part easily moved R Plantarflexor: 2: Marked increase in tone through most of ROM but effected part easily moved L Knee Extensor: 1: Slight increase in tone (catch and release at end of ROM) L Knee Flexor: 1+: Slight increase in tone, manifiested by a catch followed by min resistance throughout remainder (less than 1/2) L Plantarflexor: 2: Marked increase in tone through most of ROM but effected part easily moved Mobility Sit To Stand: Modified Independent Stand To Sit: Modified Independent Sit Pivot: Independent Gait Gait: Stand By Assistance Gait Distance (feet): 60 Gait Device: Wheeled Walker Gait Deviations: Left Lower Extremity, General Deviations Gait Deviations Left Lower Extremity: Foot clearance decreased General Deviations/Observations: Bree decreased, UE weight bearing on assistive device excessive Stairs: Contact Guard Assistance Stairs: 4 steps bilateral rails reciprocal ascned and descend. Brace/Orthotics: None Functional Performance Test Results Assistive Device: Wheeled Walker 10 Meter Walk Test Trial 1 (seconds): 25.73 10 Meter Walk Test Average (m/sec): 0.23 5 Times Sit to Stand Test : 38.97 sec (heavy use on arms with shoulders) Vitals BP: 132/86 Pulse: 87 SpO2: 97 % Education: Education Learning Preferences: Demonstration, Explanation, Printed Materials Barriers: None Learning/educational needs: Gait Training, Lifestyle changes, Health promotion, Safety, Home exercise program, Plan of Care, Posture, Body Mechanics Education Provided: Yes, see treatment interventions for education provided Education Provided To: Patient Education Mode/Type: Demonstration, Explanation/Discussion, Literature/Printed Materials Response to Education/Teach Back: States/Identifies TREATMENT: PT Treatment Interventions: Neuromuscular Re-Education Evaluation Evaluation Neuromuscular Re-Education: 1: Patient educated on findings of eval, POC created and patient is agreeable 2: Patient educated on standing at home and walking as much as possible with wheeled walker 3: Patient educated on standing as much as possible for functional strengthening Skilled Intervention: Skilled judgment used to assess appropriate program for balance and coordination activity. Education in proprioceptive/kinesthetic awareness during dynamic activities. Billing * Evaluation High Complexity: 1 Unit Neuromuscular Re-Education Treatment Minutes: 15 Skilled Treatment Time Minutes (timed and untimed codes): 47 Total Session Time (minutes): 47 Session Start Time : 1003 Session Stop Time : 1050 Cuong Monroy PT documented in this encounterA[facility]04-[facility]25 Instructions* Patient Instructions* Luda Armas MD - 09/19/2024 2:06 PM EDT [facility] Option: Dr Juan Carlos Pruitt sees patients for Virtual visit, patients call [phone] to schedule Private Option: Mary Rocha, Ph.D., CLAUDY, HOSPITAL SALES REPRESENTATIVE English Professor & Clinician, [facility] E: [email or web address] P: [phone] Mention my name as a referring physician to help expedite an appointment. She does take some insurance but not all. documented in this encounterAdena [facility]04-04-2025 Note[facility]04-04-2025 History of Present illness Narrative* Luda Armas MD - 09/19/2024 1:54 PM EDT Images from the original note were not included. [facility] UROLOGY ESTABLISHED PATIENT CLINIC NOTE PATIENT INFO: Mateus Manzano PCP: Anay Roque MD UROLOGY DIAGNOSES: 1. Hypogonadism in male - ICD9: 257.2, ICD10: E29.1 (primary diagnosis) 2. Impotence of organic origin - ICD9: 607.84, ICD10: N52.9 CHIEF COMPLAINT: Low T HPI: Patient returns for continuing evaluation and management. Stopped on Clomid, feels a lot less energy Would like to get back on Clomid Was very sick Using Viagra PRN Does not have take all the time Prev Note: T labs reviewed Cont Clomid - UCP, helps with energy and weight Cont Cialis 5mg daily Viagra PRN Would like to see Dr. Vilchis re sex therapy if no success with oxytocin Trial of Oxytocin RTO 6 mo, labs prior PMHx/PSHx: see above, otherwise unchanged Rx: reviewed and unchanged ROS: see above, otherwise unchanged Labs: Latest Ref Rng 07/09/2024 07/17/2024 WBC 3.70 - 11.00 k/uL 6.74 RBC 4.20 - 6.00 m/uL 4.65 Hemoglobin 13.0 - 17.0 g/dL 14.1 Hematocrit 39.0 - 51.0 % 42.3 MCV 80.0 - 100.0 fL 91.0 MCH 26.0 - 34.0 pg 30.3 MCHC 30.5 - 36.0 g/dL 33.3 RDW-CV 11.5 - 15.0 % 13.3 Platelet Count 150 - 400 k/uL 177 MPV 9.0 - 12.7 fL 10.7 Neut% % 59.1 Abs Neut (ANC) 1.45 - 7.50 k/uL 3.98 Lymph% % 29.2 Abs Lymph 1.00 - 4.00 k/uL 1.97 [place]% % 7.7 Abs [place] <0.87 k/uL 0.52 Eosin% % 2.4 Abs Eosin <0.46 k/uL 0.16 Baso% % 0.4 Abs Baso <0.11 k/uL 0.03 Immature Gran % % 1.2 IMMATURE GRANS (ABS) <0.10 k/uL 0.08 NRBC /100 WBC 0.0 Absolute nRBC <0.01 k/uL <0.01 DTYPE Auto Protein, Total 6.3 - 8.0 g/dL 5.8 (L) Albumin 3.9 - 4.9 g/dL 3.3 (L) Calcium 8.5 - 10.2 mg/dL 8.7 Bilirubin, Total 0.2 - 1.3 mg/dL 0.2 Alkaline Phosphatase 38 - 113 U/L 69 AST 14 - 40 U/L 16 ALT 10 - 54 U/L 23 Glucose 74 - 99 mg/dL 85 BUN 9 - 24 mg/dL 13 Creatinine 0.73 - 1.22 mg/dL 0.71 (L) Sodium 136 - 144 mmol/L 142 Potassium 3.7 - 5.1 mmol/L 4.1 Chloride 98 - 107 mmol/L 107 CO2 22 - 30 mmol/L 25 Anion Gap 8 - 15 mmol/L 10 eGFR >=60 mL/min/1.73m 120 Testosterone 193 - 824 ng/dL 247 PSA <2.60 ng/mL 0.95 Legend: (L) Low Imaging: None MEDICATIONS: Current Outpatient Medications Medication Sig sildenafil (REVATIO) 20 mg tablet TAKE 1 TABLET BY MOUTH DIRECTED (may take up to 5 (FIVE) TABLETS 1 (ONE) hour prior to sexual activity) baclofen 20 mg tablet Take 2 tablets by mouth two times a day. diazePAM (VALIUM) 2 mg tablet Take 1 tablet twice daily and 2 tablets at bedtime tiZANidine (ZANAFLEX) 4 mg tablet Take 2 tablets by mouth every 6 hours as needed. XARELTO 20 mg tablet Take 1 tablet by mouth once daily. Patient should start on July 22, 2024. hydrOXYzine pamoate (VISTARIL) 25 mg capsule Take 1 capsule by mouth three times a day as needed for itching/rash or anxiety. ondansetron orally disintegrating (ZOFRAN ODT) 4 mg disintegrating tablet Take 1 tablet by mouth every 8 hours as needed for nausea/vomiting. montelukast (SINGULAIR) 10 mg tablet Take 1 tablet by mouth daily at bedtime. acetaminophen (TYLENOL EXTRA STRENGTH) 500 mg tablet Take 2 tablets by mouth every 6 hours as needed for pain. Pregabalin (LYRICA) 200 mg capsule Take 200 mg by mouth twice daily. lidocaine (XYLOCAINE) 5 % ointment Apply to affected area as needed. albuterol (PROVENTIL) 2.5 mg /3 mL (0.083 %) nebulizer solution Use 3 mL via nebulizer every 6 hours as needed for wheezing/shortness of breath. fluticasone (FLONASE) 50 mcg/actuation nasal spray Use 2 Sprays in each nostril two times a day. Rinse mouth after use. morphine SR (MS CONTIN, ORAMORPH SR) 15 mg 12 hr tablet Take 1 tablet by mouth every 12 hours for 5days. Current Facility-Administered Medications Medication Dose Route Frequency ondansetron (PF) 4 mg injection (ZOFRAN) 4 mg INTRAVENOUS PRN PHYSICAL EXAM: Ht 193 cm (6' 4) Wt 122.5 kg (270 lb) BMI 32.87 kg/m Body mass index is 32.87 kg/m . General: Well masculinized, well nourished male Psych: euthymic, NAD Neuro: A&Ox3 DIAGNOSES: 1. Hypogonadism in male - ICD9: 257.2, ICD10: E29.1 (primary diagnosis) 2. Impotence of organic origin - ICD9: 607.84, ICD10: N52.9 IMPRESSION/PLAN: Restart Clomid 50 mg TIW Testo 247 Viagra PRN Anorgasmia - Would like to talk to sex therapy Check labs in 3 mo - MyChart results RTO 6 mo Luda Armas MD documented in this encounterAden[facility]04-02-2025 Telephone encounter Note * Telephone Encounter - Ceferino Akers RN - 09/17/2024 10:57 AM EDT Patient calls requesting a refill of sildenafil [facility]04-02-2025 Miscellaneous Notes* Telephone Encounter - Ceferino Akers RN - 09/17/2024 10:57 AM EDT Patient calls requesting a refill of sildenafil documented in this encounterAdena [facility]04-01-2025 History of Present illness Narrative* Alexis Anderson, YAZMIN - 09/16/2024 9:13 AM EDT Program_ID:[id number] Access Code: [email or web address] URL: [email or web address] Date: 09-16-2024 Prepared By: Alexis Anderson Program Notes Exercises - Seated Shoulder Scaption AAROM with Prasad at Side - 2 x daily - 7 x weekly - 2 sets - reps - Supine Shoulder Flexion Extension AAROM with Dowel - 2-3 x daily - 7 x weekly - 2-3 sets - 10-15 reps - Supine Shoulder Abduction AAROM with Dowel - 2-3 x daily - 7 x weekly - 2-3 sets - 10-15 reps - Sidelying Shoulder External Rotation - 2 x daily - 7 x weekly - 2-3 sets - 10 reps - Single Arm Scaption with Dumbbell - 2 x daily - 7 x weekly - 2-3 sets - 10-12 reps * Alexis Anderson, PT - 09/16/2024 8:31 AM EDT Images from the original note were not included. Episode Visit Count: 1 Therapist That Will Accept/Oversee The Plan Of Care: Alexis Anderson PT. Start of Care Date: 09/16/24 Onset Date: 09/17/19 Plan of Care Certification Date: 09/16/24 Next Certification Due Date: 10/24/24 Patient Identified by Name and Date of : Yes REHABILITATION AND SPORTS THERAPY PHYSICAL THERAPY EVALUATION PLAN OF CARE: Assessment: Mateus Manzano presents with diagnoses of Impingement Syndrome of B Shoulders that interferes with pushing, use hand with arm at shoulder level, reaching overhead, physical activities, lifting, sleeping, working (Lifting & reaching overhead. Push up during transfer from wheelchair. Sleeping on his side.) . The patient presents with impairments in ADL's, independence in exercise, overall function, posture, range of motion, soft tissue healing, strength, symptom management, and tissue tenderness. PROMIS (Patient-Reported Outcomes Measurement Information System) scores were reviewed and identified as a r ehabilitation concern. Prognosis for therapy is Good due to: current objective clinical presentation . The patient will benefit from skilled therapy services to meet the goals established for this plan of care as noted below. Goals for Episode of Care: established 09/16/24 Patient reported outcome of physical function will increase T-score by a minimum 5 points. [place] in home exercise program. Patient will decrease pain rating by 2 points to meet minimal clinical important difference for numeric pain rating scale. Patient will increase pain-free active ROM of B Shoulders to allow pt to to improve performance of ADLs/IADLs. Patient will demonstrate increase in B Shoulder strength to 5/5 MMT during manual muscle testing inorder to improve function for light functional tasks, home management tasks, prior functional tasks, and work tasks. Patient will perform work related activities with no restriction or pain/symptoms. Patient will endorse improved B Shoulder Pain and Function for improved QOL. Sleep through night without pain/symptoms. Patient Goals: Alleviate Pain. Time Frame for Goals and Treatment : 11/25/24 Planned Interventions, Frequency, and Duration: Current Frequency: 1x/week Duration: 8 weeks Total Number of Visits Planned: 8 Planned Treatment Interventions: Therapeutic exercise (45752), Neuromuscular re- education (68974), Manual therapy (65182), Therapeutic activities (44920), Self- prison management (89445), Patient/Family/Caregiver Education PLAN FOR NEXT VISIT: Assess, correct & progress HEP as tolerated. A/AA/PROM for B Shoulders. Trial Iso's. Patient demonstrates good understanding of plan of care and treatment. The above goals and plan of care were discussed and agreed upon by patient/family. SUBJECTIVE: Very active wheelchair user. Previous SCI. Pain for the last 5 years in B Shoulders. History of several injections, with 1 at least every six months. Was seeing Dr. Gustafson for injections for the L Shoulder, initially helped, however eventually worsened in the Right and now B Shoulders are equal worsened. Recently, received B shoulder injections on 09/03/24, has some relief however wanted to pursue PT because he does not want to bandaid it anymore. States typically eats tylenol for pain control, however has not had any following the injections. Pain is worse with movement and as the day goes on. Describes pain as deep and in the socket. About to restart PT at [facility] for his Legs. Patient Goals: Alleviate Pain. Functional Limitations: pushing, use hand with arm at shoulder level, reaching overhead, physical activities, lifting, sleeping, working (Lifting & reaching overhead. 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 Intake Information: Prescription present Previous Treatment: Injections (Contrast Hot & Cold Showers, Tylenol.) Falls Interview: No positive findings with falls interview Pain: Pain Pain Level: 1 Pain Location: Shoulder - Left, Shoulder - Right PROMIS Scales 09/16/2024 08/09/2023 11/15/2022 Higher is Better Phys Func - T Score 35 (moderate dysfunction) 41 (mild dysfunction) 39 (moderate dysfunction) Phys Func - Percentile 7 18 14 Self-Eff Symptom - T Score 46 (Average) Self-Eff Symptom - Percentile 34 Proxy-reported 11/15/2022 10/02/2022 08/31/2022 Lower is Better Pain Interference - T Score 61 (moderate) 66 (moderate) 62 (moderate) Pain Interference - Percentile 14 5 12 T-scores: mean of general population = 50. 5 points is clinically meaningfully difference Percentiles provide an indication of how the patient's score ranks in relation to the general population. Higher percentile rankings indicate better function/quality of life. 50th percentile is the average of the general population and indicates half of respondents had a worse score. OBJECTIVE MEASURES WITH LEVEL OF FUNCTION: Posture / Alignment Posture: Forward head, Rounded shoulders UE Observations: No atrophy either side. Shoulder Observations R Shoulder Palpation Tenderness: Comments R Shoulder Palpation Tenderness Comments: Biceps tendon and bicipital groove. L Shoulder Palpation Tenderness: Comments L Shoulder Palpation Tenderness Comments: Biceps tendon and bicipital groove. Supra & infra. UE AROM R UE AROM: Pain with flexion, abd and IR. L UE AROM: Pain with flexion, abd and IR. R Shoulder Flex: 145 Degrees R Shoulder ABduction: 100 Degrees R Shoulder Internal Rotation (Functional): T12 R Shoulder External Rotation (Functional): T2 L Shoulder Flex: 145 Degrees L Shoulder ABduction: 105 Degrees L Shoulder Internal Rotation (Functional): L2 L Shoulder External Rotation (Functional): T2 UE PROM R Shoulder Flex: 165 Degrees R Shoulder ABduction: 145 Degrees L Shoulder Flex: 165 Degrees L Shoulder ABduction: 145 Degrees UE and Cervical Strength Strength Tested: Shoulder All R UE Strength: Limited d/t pain L UE Strength: Limited d/t pain R Shoulder Extension: 5/5 R Shoulder Flexion: 4/5 R Shoulder Abduction (C5): 4-/5 R Shoulder Internal Rotation: 4+/5 R Shoulder External Rotation: 4/5 R Shoulder Horizontal ABduction: 4/5 R Shoulder Horizontal ADduction: 5/5 R Elbow Extension (C7): 5/5 R Elbow Flexion (C6): 5/5 L Shoulder Extension: 5/5 L Shoulder Flexion: 4/5 L Shoulder Abduction (C5): 4/5 L Shoulder Internal Rotation: 4+/5 L Shoulder External Rotation: 4/5 L Shoulder Horizontal ABduction: 4/5 L Shoulder Horizontal ADduction: 5/5 L Elbow Extension (C7): 5/5 L Elbow Flexion (C6): 5/5 Special Tests - Shoulder Shoulder Special Tests: Empty Can, Castorena-Olman, Neer, Comments Empty Can: Right Positive, Left Positive Castorena-Olman: Right Positive, Left Positive Neer: Right Positive, Left Positive Shoulder Special Tests Comments: Jobes: Positive Bilat. Hornblowers: Positive Bilat. Painful arc: Positive Bilat. Education: Education Learning Preferences: Demonstration, Explanation, Printed Materials Barriers: None Learning/educational needs: Home exercise program, Safety, Plan of Care, Health promotion Education Provided: Yes, see treatment interventions for education provided Education Provided To: Patient Education Mode/Type: Demonstration, Explanation/Discussion, Literature/Printed Materials Response to Education/Teach Back: States/Identifies TREATMENT: PT Treatment Interventions: Therapeutic Exercise Evaluation Therapeutic Exercise: 1: Reviewed HEP Exercises. PT provided demonstration and cueing of exercises for proper completion. Pt demonstrated understanding. 2: Discussed therapy goals, exercise purpose, HEP handout provided. Discussed exam findings. 3: *Seated Scaption: x10 each, no weight, discussed uping to soup can at home as tolerated. 4: *S/L ER: x10 each, towel placement. 5: *Prasad Scaption: x2min. 6: *HL Flexion AAROM: x10, 1-2 hold. 7: *HL ABDAAROM: x10, 1-2 hold. 8: Discussed differentials, anatomy related to exam findings, timeline for goals, healing and rehab process. Skilled Intervention: Patient was educated in proper exercise technique and purpose for exercises. Reviewed and educated patient on additions/changes for home exercise program as above (*). Skilled judgment was used in selection of appropriate interventions. Provided written instruction for home exercise program to facilitate proper performance and compliance. Correct performance of therapeutic exercises was facilitated with verbal and tactile cuing. Patient education as noted. Billing * Evaluation Low Complexity: 1 Unit Therapeutic Exercise Treatment Minutes: 25 Skilled Treatment Time Minutes (timed and untimed codes): 48 Total Session Time (minutes): 48 Session Start Time : 08 Session Stop Time : 917 Alexis Anderson PT documented in this encounterAdena [facility]04-01-[address]25 [facility]03-19-[address]25 [facility]03-19-2025 History of Present illness Narrative* Regina Farnsworth RT(R) - 09/03/2024 10:30 AM EDT Radiology Service Progress Note PATIENT NAME: Mateus Manzano DATE OF SERVICE: September 03, 2024 TIME: 10:46 AM PATIENT IDENTITY VERIFICATION COMPLETED USING TWO (2) IDENTIFIERS: Name and Date of confirmedby patient verbally. FALL SCREENING: Has the patient had 2 falls in the last year or 1 fall with injury or currently using an Ambulatory Assistive Device (Walker, Cane, Wheelchair, Crutches, etc.)? No PATIENT GENDER DATA: Assigned male at PATIENT RELEVANT IMPLANT DATA REVIEWED: Not Applicable PATIENT PRESENTS WITH AN IMPLANTABLE OR ATTACHED SENIOR NET DEVELOPER: No RADIOLOGY DEPARTMENT: General X-ray: Exam(s) Completed: Upper Extremity X- Ray(s): Shoulder, AP / TRUE AP / AXILLARY bilateral PERIPHERAL IV DATA: Not applicable SIGNED BY: RT Ela(Naseem) September 03, 2024 10:46 AM documented in this encounterAdena [facility]03-19-[address]25 [facility]03-10-2025 History of Present illness Narrative* Shanika Vidales RN - 08/25/2024 2:51 PM EDT ----- Message ----- From: Dayis Roque PA-C Sent: 08/25/2024 2:21 PM EDT To: Jimena Kramer PA-C; Shanika Vidales RN Mateus no longer needs the 15mg tabs. He will stick with the 20s. He's doing great! Denise * Shanika Vidales RN - 08/25/2024 11:56 AM EDT Images from the original note were not included. Faxed late response to [employer] with requested information for Dantrolene Provider will also call documented in this encounterAdena [facility] Center03-10-2025 NoteWilson [facility]03-10-2025 History of Present illness Narrative* Daysi Roque PA-C - 08/25/2024 1:45 PM EDT Images from the original note were not included. 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 He follows up with [facility] for multimodal spasticity treatment oral spasticity medications, ITB pump and lower extremity botulinum toxin injections). He had ITB pump removal due to hardware exposure on 07/15/24. He was last seen by Dr. Camp on 08/05 for botox injections. He is taking Baclofen 40 mg bid - Diazepam 2 mg twice daily (patient wants to continue with this dose) -Tizanidine 8 mg bid He reports that he's standing now for 15-30 seconds since the last visit. No major improvement in spasticity after botox, however very helpful in the past. Overall, he feels well with the exception of some new spasms: occur in the distal lower extremitiesand ascend to the abdomen, which then causes abduction spasm in the shoulder. Can occur on either side of the body. He has chronic shoulder pain that has been more bothersome to him. Patient Entered Data PROMKirusa No data to display Spasticity NRS 07/23/2023 04/16/2023 01/08/2023 11/15/2022 10/02/2022 -- Spasticity Level 4 Spasm Scale 1=Mild spasms induced by stimulation 1=Mild spasms induced by stimulation 1=Mild spasmsinduced by stimulation 1=Mild spasms induced by stimulation Spasm Scale - Trendable Number 1 1 1 1 Spasm Scale 11/15/2022 10/02/2022 08/31/2022 07/10/2022 06/16/2022 -- Spasm Frequency Mild spasms induced by stimulation Mild spasms induced by stimulation Mild spasms induced by stimulation Mild spasms induced by stimulation Mild spasms induced by stimulation Spasm Severity Mild Mild Mild Mild Mild Global Impression of Change 11/15/2022 10/02/2022 08/31/2022 07/10/2022 06/16/2022 -- Rehab global impression of change Much improved Minimally improved Much improved Much improved Muchimproved Domestic Violence: Have you been hit, kicked, punched, or otherwise hurt by someone within the pastyear? No If so, by whom? Review of Systems PHYSICAL EXAMINATION: Mental Status: There were no deficits of cognition, language or prosody on interview. Formal CASH REGISTER BALANCER testing was not performed today. Strength Right Left Shoulder abduction 5 5 Elbow flexion 5 5 Elbow extension 5 5 Wrist extension 5 5 Hip flexion 2+ 1 Knee flexion 4 3 Knee extension 2+ 2+ Plantarflexion 4 3 Dorsiflexion 4 4 Spasticity Right Left Shoulder 0 0 Elbow flexors 0 0 Elbow extensors 0 0 Wrist flexors 0 0 Wrist extensors 0 0 Finger flexors 0 0 Finger extensors 0 0 Hip adductors 0 0 Knee extensors 1 1 Knee flexors 1 1 Plantarflexors 2 2 Modified Dannie Scale 0 - No increase in tone 1 - Slight increase in tone (catch and release at end of ROM) 1+ - Slight increase in tone, manifested by a catch, followed by minimal resistance throughout remainder (less than half of ROM) 2 - Marked increase in tone through most of the ROM, but affected part(s) easily moved 3 - Considerable increase in tone; passive movement difficult 4 - Affected part(s) rigid in flexion or extension Hip flexors 1+ bilaterally Able to transfer from wheelchair to exam table Good static and dynamic trunk control. Spasms observed: RUE: no right upper extremity spasms LUE: no left upper extremity spasms RLE: right lower extremity spasms Extensor spasms LLE: left lower extremity spasms Extensor spasms Timed 25 foot walk: N/A Assistance required: wheelchair ASSESSMENT: No diagnosis found. Mateus is a 38 year old male with a history of thoracic SCI. He recently underwent baclofen pump explant surgery because of hardware exposure. Spasticity remains under good control with oral medications. He describes more strength in the legs, allowing him to stand for 30 seconds. On exam, there is less spasticity noted in the quadriceps following recent botox injections, also less intense clonus in the hip flexors. He would benefit from restarting PT in the absence of his baclofen pump and better motor output. Additionally, he describes chronic bilateral shoulder pain, made worse by operating his manual wheelchair and using upper body for transfers. Cortisone injections were temporarily helpful, but he's interested in ortho follow up. I ordered xrays of the shoulders ahead of that visit. He was prescribed baclofen 15mg tablets but has been able to continue using the 20mg tablets. He is taking Baclofen 40 mg bid - Diazepam 2 mg twice daily (patient wants to continue with this dose) -Tizanidine 8 mg bid PLAN 1. Return to PT. 2. Consult ortho for shoulder pain 3. Xr shoulders 4. Return for botox in 2 months I spent a total of 45 minutes on the date of the service which included preparing to see the patient, [id number] patient care, completing clinical documentation, performing a medically appropriate examination, counseling and educating the patient/family/caregiver, and ordering medications, tests,or procedures. Daysi Roque PA-C documented in this encounterAdena [facility] Center03-10-2025 NoteWilson [facility]03-10-2025 NoteHNO ID: [id number] Author: SHANIKA VIDALES RN Service: ? Author Type: Registered Nurse Type: Progress Notes Filed: 08/25/2024 12:22 Note Text: Faxed late response to [employer] with requested information for Dantrolene Provider will also [facility] Telephone encounter Note* Telephone Encounter - Jimena Kramer PA-C - 08/21/2024 10:20 AM EST The following approved medication requests have been transmitted electronically. Requested Prescriptions Signed Prescriptions Disp Refills baclofen 15 mg tablet 720 tablet 3 Sig: Take 2 tablets by mouth four times daily. Authorizing Provider: JIMENA KRAMER PA-C [facility]03-06-2025 Miscellaneous Notes* Telephone Encounter - Jimena Kramer PA-C - 08/21/2024 10:20 AM EST The following approved medication requests have been transmitted electronically. Requested Prescriptions Signed Prescriptions Disp Refills baclofen 15 mg tablet 720 tablet 3 Sig: Take 2 tablets by mouth four times daily. Authorizing Provider: JIMENA KRAMER PA-C * Telephone Encounter - Shanika Vidales RN - 08/21/2024 9:49 AM EST Seen by Dr Camp 08/05/24 -Medications: Baclofen 30 mg 4 times daily, Valium 2 mg twice daily (not planning to uptitrate thisdose), tizanidine 8 mg 4 times daily as needed (takes 2 doses daily) Last baclofen refill 07/17/24 for 2 months Pending refill * Telephone Encounter - Roseline Strauss - 08/21/2024 9:29 AM EST Requested Prescriptions Pending Prescriptions Disp Refills baclofen 15 mg tablet 240 tablet 1 Sig: Take 2 tablets by mouth every 6 hours. [facility] : [id number] - [place], [place] [id number] [address] [facility] [phone] [[id number]] FYI Patient's in office visit rescheduled from 08/21/24 to 08/25/24 due to provider being out of office. Best to contact [phone] documented in this encounterAden[facility] Telephone encounter Note * Telephone Encounter - Shanika Vidales RN - 08/21/2024 9:49 AM EST Seen by Dr Camp 08/05/24 -Medications: Baclofen 30 mg 4 times daily, Valium 2 mg twice daily (not planning to uptitrate thisdose), tizanidine 8 mg 4 times daily as needed (takes 2 doses daily) Last baclofen refill 07/17/24 for 2 months Pending refill [facility] Work Phone: 1(141) 358-472103-06-2025 Telephone encounter Note* Telephone Encounter - Roseline Strauss - 08/21/2024 9:29 AM EST Requested Prescriptions Pending Prescriptions Disp Refills baclofen 15 mg tablet 240 tablet 1 Sig: Take 2 tablets by mouth every 6 hours. [facility] : [facility] [id number] [place] [id number] - [address] [phone] [[id number]] FYI Patient's in office visit rescheduled from 08/21/24 to 08/25/24 due to provider being out of office. Best to contact [phone] [facility]02-18-2025 Telephone encounter Note* Telephone Encounter - Tamera Shrestha MA - 08/05/2024 3:45 PM EST Patient records received via electronic fax. Uploaded to [employer] via [employer]. Please review in scanned documents tab of chart review. Pt informed consent Scan on 08/05/2024 3:36 PM by Provider, External, PAAbbeyC: Informed Consent Tamera Shrestha MA [facility]02-18-2025 Miscellaneous Notes* Telephone Encounter - Tamera Shrestha MA - 08/05/2024 3:45 PM EST Patient records received via electronic fax. Uploaded to [employer] via [employer]. Please review in scanned documents tab of chart review. Pt informed consent Scan on 08/05/2024 3:36 PM by Provider, External, BRETTC: Informed Consent Tamera Shrestha MA documented in this encounterAdena F[facility] Center02-18-2025 Instructions* Patient Instructions* Tahir Camp MD - 08/05/2024 3:04 PM EST You have received botulinum toxin A (Botox) injections today for both lower extremity spasticity. Monitor the skin around the site of injections for any changes like redness, swelling, pain for at least a couple of days. The skin should be examined by a health career advisor if changes persist or infection is suspected. If you notice any allergic reaction or problems swallowing, speaking, breathing seek immediate medical attention. Please schedule the next 45 minute Botulinum toxin A injection appointment in 3 months or 13 weeks.Please note that your next injections should not be scheduled less than 90 days from today. Additional changes/recommendations: - Continue daily range of motion and stretching exercises Medications: - Continue Baclofen , Diazepam and Tizanidine as directed. Please contact our office via [employer] or by phone at [phone] with any questions or concerns. If your health insurance changes before the next injections, please contact our office at [phone] as soon as possible so we can submit a new pre- authorization if needed. Please note that we may not be able to perform the injections if your insurance changes and the treatment is not pre-authorized. documented in this encounterAdena [facility]02-18-2025 [facility]-18-2025 History of Present illness Narrative* Tahir Camp MD - 08/05/2024 2:30 PM EST Images from the original note were not included. 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 He follows up with [facility] PM&R for multimodal spasticity treatment oral spasticity medications, ITB pump and lower extremity botulinum toxin injections). He had ITB pump removal due to hardware exposure on 07/15/24. He reports to clinic today for continuation of botulinum toxin injections for management of lower extremity spasms. History since last visit: He is experienced increased spasms since explantation of ITB pump. During recent PM&R outpatient visit, oral spasticity medications were adjusted. He has noted improvement in lower extremity spasms or spasticity with medications. He is on 3 oral antispasticity medications and hopeful to reduce some of these medications with botulinum toxin injections. He would like to focus on hip and thigh mu scles. He reports combination of flexor and extensor spasms along with on and off clonus. Of note, he has noted subjective improvement in control/strength of right lower extremity. He is able to stand longer. He stands with a walker in home. He is independent in car transfer. Feels like he has improved control/strength in LE, able to stand longer. Stands with walker in home. Stands to transfer himself to his truck. Started experiecning tightnes sin calf, wants to focus onhip -Most recent PM&R visit: Dr Shelby 07/24/24- spasticity medication adjustment -Most recent Botulinum toxin A injection: 03/03/24- [address] Sherwood -Hospitalization/ER visit: Hospitalization for baclofen pump explantation 07/13/2024 to 07/17/2024 -New weakness or numbness: No -Fever or flu like symptoms : No -Ongoing antibiotics: No -Other: - -Anticoagulation/antiplatelet medications: Xarelto -Allergy to cow milk protein: NO -Bowel/bladder: Neurogenic bowel and bladder, BM managed with Senna, Bladder regulated with IC -Skin: Well-healed surgical scar, denies any wound or skin breakdown Spasticity treatment: -Home exercise routine: Yes -PT/OT: Planning to resume physical therapy once extremity spasms are under control -Medications: Baclofen 30 mg 4 times daily, Valium 2 mg twice daily (not planning to uptitrate thisdose), tizanidine 8 mg 4 times daily as needed (takes 2 doses daily) -Botulinum toxin therapy: Rjn-jgbpbetmr-gqkm dose 200 units -Other/orthosis: not currently, h/o custom AFO use initially Patient goals: - Reduce LE spasms and tightness - Improve positioning -To be able to continue antispasticity medications on the effective dose BT therapy effective? Yes - spasms/cramps and stiffness Duration of benefit: 10 weeks Side effects: No Pain related to the purpose of the visit: no Patient Entered Data PROMIS No data to display Spasticity NRS 07/23/2023 04/16/2023 01/08/2023 11/15/2022 10/02/2022 -- Spasticity Level 4 Spasm Scale 1=Mild spasms induced by stimulation 1=Mild spasms induced by stimulation 1=Mild spasmsinduced by stimulation 1=Mild spasms induced by stimulation Spasm Scale - Trendable Number 1 1 1 1 Spasm Scale 11/15/2022 10/02/2022 08/31/2022 07/10/2022 06/16/2022 -- Spasm Frequency Mild spasms induced by stimulation Mild spasms induced by stimulation Mild spasms induced by stimulation Mild spasms induced by stimulation Mild spasms induced by stimulation Spasm Severity Mild Mild Mild Mild Mild Global Impression of Change 11/15/2022 10/02/2022 08/31/2022 07/10/2022 06/16/2022 -- Rehab global impression of change Much improved Minimally improved Much improved Much improved Muchimproved Nutritional status: appetite , weight \, swallowing -stable Driving issues: No Safety concerns regarding living situations and safety at home: No At risk for falling: Yes . No recent falls Examination: BP 134/86 Pulse 76 Wt 122.5 kg (270 lb) BMI 32.87 kg/m General: The patient is a well-nourished, well groomed who appears stated age. Lung: breathing unlabored in room air Skin: Healed scar over right abdominal quadrant and suprapubic region Extremity: no edema noted in extremities. Strength Right Left Shoulder abduction 5 5 Elbow flexion 5 5 Elbow extension 5 5 Wrist extension 5 5 Hip flexion 2+ 1 Knee flexion 4 3 Knee extension 2+ 2+ Plantarflexion 4 3 Dorsiflexion 4 4 Spasticity Right Left Shoulder 0 0 Elbow flexors 0 0 Elbow extensors 0 0 Wrist flexors 0 0 Wrist extensors 0 0 Finger flexors 0 0 Finger extensors 0 0 Hip adductors 0 0 Knee extensors 2 2 Knee flexors 1 1 Plantarflexors 2 2 Modified Dannie Scale 0 - No increase in tone 1 - Slight increase in tone (catch and release at end of ROM) 1+ - Slight increase in tone, manifested by a catch, followed by minimal resistance throughout remainder (less than half of ROM) 2 - Marked increase in tone through most of the ROM, but affected part(s) easily moved 3 - Considerable increase in tone; passive movement difficult 4 - Affected part(s) rigid in flexion or extension Hip flexors 1+ bilaterally Able to transfer from wheelchair to exam table Good static and dynamic trunk control. Spasms observed: RUE: no right upper extremity spasms LUE: no left upper extremity spasms RLE: right lower extremity spasms Extensor spasms LLE: left lower extremity spasms Extensor spasms Timed 25 foot walk: N/A Assistance required: wheelchair UNIVERSAL PROTOCOL / SAFETY CHECKLIST Procedure to be Performed: Chemodenervation with Botulinum toxin A Sign In: A Moment of CARE was completed. Personnel directly involved with the procedure wore the appropriate PPE (Personal Protective Equipment). Special equipment: EMG (portable) Patient/Surrogate Stated/Verified: PATIENT VERIFIED(optional for EMERGENT procedures): Patient name, Date of , Relevant allergies, and The intended procedure Time Out Communication: Intended patient and procedure match the source documents. Consent documented and matches the intended procedure. No relevant labs, photos, and/or imaging studies were applicable for review. Correct side/site marked and visible. Medications required for procedure verified. No fire risk assessment and interventions applicable. No implant(s) inserted. Sign Out: SIGN OUT (optional for EMERGENT procedures): No specimen collected. No instruments, equipment or retained foreign bodies applicable. Post-procedure follow-up management communicated and Plan of Care Visit completed when applicable. Tahir Camp MD The risks, benefits and alternatives of the procedure were explained. Written Consent Obtained: yes - 08/05/2024 Clinician(s) performing the injections: Tahir Camp Operations Examiner: Neetu Alba LPN The patient was positioned Supine on exam table. Brand of toxin injected: Botox. After skin preparation with alcohol, a total dose of 200 units were injected as follows: Muscle Limb/Side Dose Guidance Comments Iliopsoas RLE 60 units EMG 2 sites Rectus femoris RLE 40 units EMG 1 sites Iliopsoas LLE 60 units EMG 2 sites Rectus Femoris LLE 40 units EMG 1 sites Total Dose: 200 0 units discarded. Dilution: 100 units / 1 ml LOT #: [id number] Expiration Date: Month: 4 Year: 27 The injections were uneventful. Minimal bleeding occurred at the injection sites which resolved before discharging patient from clinic. 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 Spasticity was managed with multimodal approach-oral medications, intrathecal baclofen pump and botulinum toxin injections. He has been experiencing increased lower extremity spasms since explantation of baclofen pump in 06/2024. Medication adjustment has provided some improvement but he continues to notice combination of flexor and extensor spasms in both lower extremity. He appears to be an appropriate candidate for chemodenervation with botulinum toxin A. I discussed medication dosage, usage, goals of therapy, and side effects of botulinum toxin therapy. I discussed specific risks, benefits, personnel, and alternatives related to botulinum toxin injections. The concerns about generalized side effects after Botulinum toxin A injections were discussedduring the visit. I explained that the total dose injected, specific muscles injected and dose injected in each muscle, and frequency of injections, may vary over time depending on response to treatment.Explained to the patient that most benefit is noted and passive function after botulinum toxin therapy as compared to active function which is difficult to achieve I explained that BT therapy doesnot always allow improvement of function, even when it is effective on spasticity. Patient and/or family expressed understanding of the above and agreeable to the plan of Chemodenervation with Botulinum toxin A. The goals of spasticity management are- - Reduce LE spasms and tightness - Improve positioning -To be able to continue antispasticity medications on the effective dose Given extensive spasms, decided to target rectus femoris bilaterally. Extensor spasms of moderate severity noted on exam. Anticipate that patient will benefit with additional dose for rectus femoris.Patient will contact office to provide feedback. (G82.20) Paraplegia (HCC) (primary encounter diagnosis) (R25.2) Spasticity (M62.838) Spasm of muscle (Z74.09) Impaired mobility Pre-authorization renewal/dose increase Medication: Botox J0585 Dose (units every 90 days): 300 If initial pre-authorization; list treatments failed: PT/OT, Baclofen and Tizanidine If renewal with dose increase; provide justification: Increased spasms since explantation of Intrathecal Baclofen Pump CPT Codes: Limbs: 15941, 69774, 98487 and 56531 Limb(s) / area(s) injected: Bilateral Iliopsoas Bilateral Rectus Femoris Plan: Chemodenervation with Botulinum toxin A performed detailed as above. Follow up in 3 months/ 13 weeks for next set of Botulinum toxin A injections. Will plan for reauthorization with increased dose up to 300 units given increased spasms after baclofen pump explantation. Consider dose increment for bilateral rectus femoris. Continue ROM and stretching exercise at home Continue oral anti-spasticity medications: - Baclofen 30 mg 4 times daily - Diazepam 2 mg twice daily (patient wants to continue with this dose) -Tizanidine 8 mg 4 times daily as needed (patient takes 2 doses daily) Time spent with patient: 45 mins Tahir Camp MD [facility] Medicine [facility] documented in this encounterAdena [facility]02-18-2025 Telephone encounter Note * Telephone Encounter - Gurvinder Joyner - 08/05/2024 9:37 AM EST Transitional Care Management (TCM) [facility] Provider Action / FYI: na SUMMARY: Outreach type: INITIAL OUTREACH Discharge Network Status: In-Network Discharge Source of Patient: [facility] TCM Discharge Report Patient discharged from [facility] on 07.17.24. Admitted for Baclofen pump failure . Contact made with patient: No - 2nd unsuccessful attempt - end outreach and close encounter. Gurvinder Joyner August 05, 2024 9:39 AM [facility]02-18-2025 Miscellaneous Notes* Telephone Encounter - Gurvinder Joyner - 08/05/2024 9:37 AM EST Transitional Care Management (TCM) [facility] Provider Action / FYI: na SUMMARY: Outreach type: INITIAL OUTREACH Discharge Network Status: In-Network Discharge Source of Patient: [facility] TCM Discharge Report Patient discharged from [facility] on 07.17.24. Admitted for Baclofen pump failure . Contact made with patient: No - 2nd unsuccessful attempt - end outreach and close encounter. Gurvinder Joyner August 05, 2024 9:39 AM documented in this encounterAdena [facility] Center02-17-2025 Telephone encounter Note * Telephone Encounter - Emanuel Campos - 08/04/2024 1:24 PM EST Transitional Care Management (TCM) [facility] Provider Action / FYI: na SUMMARY: Outreach type: INITIAL OUTREACH Discharge Network Status: In-Network Discharge Source of Patient: [facility] TCM Discharge Report Patient discharged from [facility] on 07.17.24. Admitted for Baclofen pump failure . Contact made with patient: No - next outreach attempt will be on next business day. Emanuel Campos August 04, 2024 1:26 PM [facility]02-17-2025 Miscellaneous Notes* Telephone Encounter - Emanuel Campos - 08/04/2024 1:24 PM EST Transitional Care Management (TCM) [facility] Provider Action / FYI: na SUMMARY: Outreach type: INITIAL OUTREACH Discharge Network Status: In-Network Discharge Source of Patient: [facility] TCM Discharge Report Patient discharged from [facility] on 07.17.24. Admitted for Baclofen pump failure . Contact made with patient: No - next outreach attempt will be on next business day. Emanuel Campos August 04, 2024 1:26 PM documented in this encounterAdena [facility] Center02-10-2025 Telephone encounter Note * Telephone Encounter - Leon Carver - 07/28/2024 12:56 PM EST Transitional Care Management (TCM) [facility] Provider Action / FYI: N/A SUMMARY: Outreach type: INITIAL OUTREACH Discharge Network Status: In-Network Discharge Source of Patient: [facility] TCM Discharge Report Patient discharged from [facility] on 07/17/24. Admitted for Baclofen pump failure Contact made with patient: No - 2nd unsuccessful attempt - end outreach and close encounter. Leon Carver July 28, 2024 12:58 PM [facility]02-10-2025 Miscellaneous Notes* Telephone Encounter - Leon Carver - 07/28/2024 12:56 PM EST Transitional Care Management (TCM) [facility] Provider Action / FYI: N/A SUMMARY: Outreach type: INITIAL OUTREACH Discharge Network Status: In-Network Discharge Source of Patient: [facility] TCM Discharge Report Patient discharged from [facility] on 07/17/24. Admitted for Baclofen pump failure Contact made with patient: No - 2nd unsuccessful attempt - end outreach and close encounter. Leon Carver July 28, 2024 12:58 PM documented in this encounterAdena [facility] Center02-07-2025 Telephone encounter Note * Telephone Encounter - Wyatt Alcazar - 07/25/2024 2:18 PM EST Transitional Care Management (TCM) [facility] Provider Action / FYI: N/A SUMMARY: Outreach type: INITIAL OUTREACH Discharge Network Status: In-Network Discharge Source of Patient: [facility] TCM Discharge Report Patient discharged from [facility] on 07/17/24. Admitted for Baclofen pump failure, subsequent encounter. Contact made with patient: No - next outreach attempt will be on next . Wyatt Alcazar July 25, 2024 2:20 PM [facility]02-07-2025 Miscellaneous Notes* Telephone Encounter - Wyatt Alcazar - 07/25/2024 2:18 PM EST Transitional Care Management (TCM) [facility] Monitoring Program Provider Action / FYI: N/A SUMMARY: Outreach type: INITIAL OUTREACH Discharge Network Status: In-Network Discharge Source of Patient: [facility] TCM Discharge Report Patient discharged from [facility] on 07/17/24. Admitted for Baclofen pump failure, subsequent encounter. Contact made with patient: No - next outreach attempt will be on next . Wyatt Alcazar July 25, 2024 2:20 PM documented in this encounterAdena Fayette [facility] Center02-06-2025 Instructions* Patient Instructions* Jamey Shelby MD - 07/24/2024 12:38 PM EST Discontinue clonazepam Diazepam 2 mg tablets Take 1 tablet at bedtime for 5 days then Take 1 tablet in the morning and at bedtime for 5 days then Take 1 tablet in the morning, afternoon and at bedtime for 5 days then Take 1 tablet in the morning and afternoon and 2 tablets at bedtime. Contact the office with any questions or concerns ([employer] or [phone]). Jamey Shelby MD documented in this encounterAdena Fayette [facility] Center02-06-2025 NoteWilson [facility]02-06-2025 History of Present illness Narrative* Jamey Shelby MD - 07/24/2024 10:45 AM EST REASON FOR VISIT: routine Patient accompanied by: His father, Mono. 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 He reports that he has severe spasticity. He complains of stiffness in his legs and occasional spasms that vary in frequency and intensity. Spasms are worse when he lays flat. He is taking baclofen 30 mg every 6 hours, clonazepam 0.5 mg and tizanidine 8 mg every 6 hours. He feels that there is increased sedation with the tizanidine. He performs stretching exercises daily. Patient Entered Data PROMIS No data to display Spasticity NRS 07/23/2023 04/16/2023 01/08/2023 11/15/2022 10/02/2022 -- Spasticity Level 4 Spasm Scale 1=Mild spasms induced by stimulation 1=Mild spasms induced by stimulation 1=Mild spasmsinduced by stimulation 1=Mild spasms induced by stimulation Spasm Scale - Trendable Number 1 1 1 1 Spasm Scale 11/15/2022 10/02/2022 08/31/2022 07/10/2022 06/16/2022 -- Spasm Frequency Mild spasms induced by stimulation Mild spasms induced by stimulation Mild spasms induced by stimulation Mild spasms induced by stimulation Mild spasms induced by stimulation Spasm Severity Mild Mild Mild Mild Mild Global Impression of Change 11/15/2022 10/02/2022 08/31/2022 07/10/2022 06/16/2022 -- Rehab global impression of change Much improved Minimally improved Much improved Much improved Muchimproved Pain related to the purpose of the visit: No 0 on a scale of 0 to 10 Bowel function: Constipation, no recent changes Bladder function: Self caths 8-12 times times, last UTI was May 2024 Nutritional status: appetite the same, weight is stable, swallowing with no problems Driving issues: No issues, uses hand controls Safety concerns regarding living situations and safety at home: No Risk of falls: Yes, but no recent falls Diagnostic Testing since last visit: No recent studies Labs reviewed: CBC with diff: WBC 6.74 07/17/2024 RBC 4.65 07/17/2024 HGB 14.1 07/17/2024 Hematocrit 42.3 07/17/2024 MCV 91.0 07/17/2024 MCH 30.3 07/17/2024 MCHC 33.3 07/17/2024 RDW-CV 13.3 07/17/2024 Platelet Count 177 07/17/2024 MPV 10.7 07/17/2024 Neut% 59.1 07/17/2024 Lymph% 29.2 07/17/2024 [place]% 7.7 07/17/2024 Eosin% 2.4 07/17/2024 Baso% 0.4 07/17/2024 Abs Neut (ANC) 3.98 07/17/2024 Abs [place] 0.52 07/17/2024 Abs Eosin 0.16 07/17/2024 Abs Baso 0.03 07/17/2024 Glucose (mg/dL) Date Value 07/17/2024 85 08/05/2021 84 Potassium (mmol/L) Date Value 07/17/2024 4.1 08/05/2021 4.4 Sodium (mmol/L) Date Value 07/17/2024 142 08/05/2021 143 Chloride (mmol/L) Date Value 07/17/2024 107 08/05/2021 105 CO2 (mmol/L) Date Value 07/17/2024 25 08/05/2021 31 Creatinine (mg/dL) Date Value 07/17/2024 0.71 08/05/2021 1.01 BUN (mg/dL) Date Value 07/17/2024 13 08/05/2021 8 Anion Gap (mmol/L) Date Value 07/17/2024 10 08/05/2021 7 Calcium (mg/dL) Date Value 08/05/2021 9.3 Calcium, Total (mg/dL) Date Value 07/17/2024 8.7 Protein, Total (g/dL) Date Value 07/17/2024 5.8 06/07/2021 6.8 Albumin (g/dL) Date Value 07/17/2024 3.3 06/07/2021 4.1 Bilirubin, Total (mg/dL) Date Value 07/17/2024 0.2 06/07/2021 0.2 Alkaline Phosphatase (U/L) Date Value 07/17/2024 69 06/07/2021 78 AST (U/L) Date Value 07/17/2024 16 06/07/2021 26 ALT (U/L) Date Value 07/17/2024 23 06/07/2021 26 Domestic Violence: Have you been hit, kicked, punched, or otherwise hurt by someone within the pastyear? No If so, by whom? Review of Systems Constitutional: Negative. Skin: Positive for dryness/scaling. HENT: Negative. Musculoskeletal: Positive for muscle weakness. Eyes: Negative. Respiratory: Negative. Cardiovascular: Positive for leg swelling. Gastrointestinal: Positive for constipation. Endocrine: Negative. Genitourinary: Positive for frequent urinary infection, dysuria and incomplete voiding or urinary retention. Hematologic/Lymphatic: Positive for leg clots. Allergic/Immunologic: Negative. Neurological: Positive for sleep disturbance. All other systems reviewed and are negative. PHYSICAL EXAMINATION: Mental Status: There were no deficits of cognition, language or prosody on interview. Formal CASH REGISTER BALANCER testing was not performed today. Cranial Nerves: Visual Acuity OU: 20/20 Corrected: No CN III, IV, Pursuit and saccadic eye movement are intact without nystagmus CN V-XII facial sensation was intact facial movements were intact hearing was intact to finger rub palatal movements were intact tongue movements were intact there was no dysarthria shoulder shrug was intact Strength Right Left Shoulder abduction 5 5 Elbow flexion 5 5 Elbow extension 5 5 Wrist extension 5 5 Hip flexion 3 1+ Knee flexion 3+ 2+ Knee extension 4 4 Plantarflexion 4 4 Dorsiflexion 3+ 3+ Spasticity Right Left Shoulder 0 0 Elbow flexors 0 0 Elbow extensors 0 0 Wrist flexors 0 0 Wrist extensors 0 0 Finger flexors 0 0 Finger extensors 0 0 Hip adductors 0 0 Knee extensors 0. 0 Knee flexors 0 0 Plantarflexors 1+ 1 Modified Dannie Scale 0 - No increase in tone 1 - Slight increase in tone (catch and release at end of ROM) 1+ - Slight increase in tone, manifested by a catch, followed by minimal resistance throughout remainder (less than half of ROM) 2 - Marked increase in tone through most of the ROM, but affected part(s) easily moved 3 - Considerable increase in tone; passive movement difficult 4 - Affected part(s) rigid in flexion or extension Spasms observed: RUE: no right upper extremity spasms LUE: no left upper extremity spasms RLE: right lower extremity spasms knee extesor spasms with exam and unsustained ankle clonus LLE: no left lower extremity spasms knee extensor spasms with exam and unsustained ankle clonus Timed 25 foot walk: N/A Assistance required: wheelchair Ambulation Index Score: 8 - Restricted to wheelchair, independent for transfers Cerebellar: finger to nose testing was without dysmetria bilaterally. He was unable to perform heelto wild testing bilaterally. Fine movements were intact in both hands. Sensation: Light touch was intact and vibration were intact, proprioception and pinprick were not tested. ASSESSMENT: (G82.20) Paraplegia (HCC) (primary encounter diagnosis) (R25.2) Spasticity (S24.102S) T4 spinal cord injury, sequela (HCC) Patient with T4 spinal cord injury s/p ITB pump and catheter removal due to exposure of pump on 07/15/2024. He complains of severe spasms since his baclofen pump was removed. I discussed spasticity treatment options with the patient and he was agreeable to discontinuing clonazepam. Instead, he will take diazepam 2 mg twice daily and 4 mg at bedtime. He is to continue baclofen 30 mg four times daily and tizanidine 8 mg four times daily. He may contact the office with any questions or concerns or if he wants a medication adjustment prior to his next visit. I explained that we are attempting to less his spasms in frequency and intensity and that they may not resolve completely. He is to continue to perform stretching exercises multiple times daily. He will follow up in 1 month. He is advised to contact neurosurgery for suture removal as this has not been done as of yet. He states that he may be interested in continuing with ITB therapy. I am hesitant to recommend thisoption as he is a risk for infection and we are limited to where the pump may be implanted. He willdiscuss further with neurosurgery at his follow up visit. 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 Symptomatic medications: Diazepam 2 mg twice daily and 4 mg at bedtime as instructed. Continue baclofen 30 mg every 6 hours and tizanidine 8 mg every 6 hours. 2. Tests and referrals: No 3. Physical / occupational therapy: Continue to perform stretching exercises daily. 4. Follow-up: 1 month. The patient was instructed to call should any problems occur in the meantime. 5. Contact neurosurgery regarding suture removal and follow up. 6. Note copied to Renata Napier MD, Denise Roque PA-C, Krys Vidales RN and Jimena Kramer PA-C via [employer]. Time spent with patient: 45 minutes. More than 50% of the face to face time was dedicated to education and counseling regarding treatment options for spasticity. Jamey Shelby MD documented in this encounterA[facility] Telephone encounter Note * Telephone Encounter - Shanika Vidales RN - 07/22/2024 3:01 PM EST Called left detailed message on identified VM of patient Reviewed medication increase and side effects To increase gradually by one dose every 3-4 days To FU as scheduled on with provider Contact office as needed iliopsoaverito [facility] Work Phone: [phone] Miscellaneous Notes* Telephone Encounter - Shanika Vidales RN - 07/22/2024 3:01 PM EST Called left detailed message on identified VM of patient Reviewed medication increase and side effects To increase gradually by one dose every 3-4 days To FU as scheduled on with provider Contact office as needed iliopsoas * Telephone Encounter - Jimena Kramer PA-C - 07/22/2024 12:02 PM EST Increasing Tizanidine to 8mg four times per day as needed to help with spasticity. Please watch forincreased drowsiness/sedation or dizziness. Patient to follow up with Denise Roque PA-C on 07/24 at 9:00am The following approved medication requests have been transmitted electronically. Requested Prescriptions Signed Prescriptions Disp Refills tiZANidine (ZANAFLEX) 4 mg tablet 240 tablet 2 Sig: Take 2 tablets by mouth every 6 hours as needed. Authorizing Provider: JIMENA KRAMER PA-C * Telephone Encounter - Shanika Vidales RN - 07/22/2024 11:37 AM EST If he is tolerating the Tizanidine well we could have him take up to Tizanidine 8mg four times per day. He is also over due for Botox injections. Is he having any signs of infection, UTI, how is surgical wound healing ? He cancelled his hospital follow up with Denise. We should see him for follow up to discuss. Jimena Kramer PA-C SPECIALTY CARE COORDINATION QUICK NOTE Called patient Patient identified by name and date of : Yes Reviewed provider recommendations He confirms he is not experiencing any side effects or sedation from current medications for spasticity He confirms he would be interested in increasing tizanidine He denies any UTI symptoms He feels his would is healing He does feel some discomfort in his back He currently is on 3 different antibiotics for another week post op: Augmentin, Zyvox, Flagyl Antibiotics prevent him from scheduling Botox injections till completed Next available with Dr Sherwood is 09/22/24 at 9am; he will discuss with Denise to see if changing to Dr Camp at [place] can be an option; needs US for injections Agreed on 07/24 appointment at 9am with Stacey Roque at [facility]; slot put on hold, page sent to add on Agreed on 09/22 appointment at 945am with Dr Sherwood; slot put on hold, page sent to add on He states when he was prescribed oxyicontin for pain they mentioned it will interfere with antibiotics; he feels it is not helping with his pain in his back Advised to contact neurosurgery to discuss options for medication Will forward to provider for update on tizanidine and call back by end of day he verbalized understanding and agrees with plan * Telephone Encounter - Shanika Vidales RN - 07/22/2024 11:19 AM EST SPECIALTY CARE COORDINATION QUICK NOTE Called patient Patient identified by name and date of : Yes He feels current spasticity/spasms are minimally controled on current medications Taking: Baclofen 40 mg three times a day Tizanidine 2 mg tablet, 6 mg four times a day ClonAZEPAM 0.5 mg tablet, taking 1 tablet four times a [facility] Will forward to provider for review and recommendation Will call back today he verbalized understanding and agrees with plan * Telephone Encounter - Roselia Good HUC - 07/22/2024 10:27 AM EST Ani Call Name of caller : Mateus Relationship to patient: Self Return call phone number : [phone] Reason for call : Other : Brief description of concern : Patient would like to have increase in Klonopin Patient still having issues with muscle spasms thinks increase may help. documented in this encounterAden[facility]02-04-[facility] Telephone encounter Note * Telephone Encounter - Jimena Kramer PA-C - 07/22/2024 12:02 PM EST Increasing Tizanidine to 8mg four times per day as needed to help with spasticity. Please watch forincreased drowsiness/sedation or dizziness. Patient to follow up with Denise Roque PA-C on 07/24 at 9:00am The following approved medication requests have been transmitted electronically. Requested Prescriptions Signed Prescriptions Disp Refills tiZANidine (ZANAFLEX) 4 mg tablet 240 tablet 2 Sig: Take 2 tablets by mouth every 6 hours as needed. Authorizing Provider: JIMENA KRAMER PA-C [facility]02-[facility] Telephone encounter Note* Telephone Encounter - Shanika Vidales RN - 07/22/2024 11:37 AM EST If he is tolerating the Tizanidine well we could have him take up to Tizanidine 8mg four times per day. He is also over due for Botox injections. Is he having any signs of infection, UTI, how is surgical wound healing ? He cancelled his hospital follow up with Denise. We should see him for follow up to discuss. Jimena Kramer PA-C SPECIALTY CARE COORDINATION QUICK NOTE Called patient Patient identified by name and date of : Yes Reviewed provider recommendations He confirms he is not experiencing any side effects or sedation from current medications for spasticity He confirms he would be interested in increasing tizanidine He denies any UTI symptoms He feels his would is healing He does feel some discomfort in his back He currently is on 3 different antibiotics for another week post op: Augmentin, Zyvox, Flagyl Antibiotics prevent him from scheduling Botox injections till completed Next available with Dr Sherwood is 09/22/24 at 9am; he will discuss with Denise to see if changing to Dr Camp at [place] can be an option; needs US for injections Agreed on 07/24 appointment at 9am with Stacey Roque at [facility]; slot put on hold, page sent to add on Agreed on 09/22 appointment at 945am with Dr Sherwood; slot put on hold, page sent to add on He states when he was prescribed oxyicontin for pain they mentioned it will interfere with antibiotics; he feels it is not helping with his pain in his back Advised to contact neurosurgery to discuss options for medication Will forward to provider for update on tizanidine and call back by end of day he verbalized understanding and agrees with plan [facility]02-04-2025 Telephone encounter Note* Telephone Encounter - Jimena Kramer PA-C - 07/22/2024 11:32 AM EST The following approved medication requests have been transmitted electronically. Requested Prescriptions Signed Prescriptions Disp Refills clonazePAM (KLONOPIN) 0.5 mg tablet 30 tablet 0 Sig: Take 1 tablet by mouth every 6 hours as needed (muscle spasms) for up to 30 days. Authorizing Provider: JIMENA KRAMER PA-C [facility]02-04-2025 Miscellaneous Notes* Telephone Encounter - Jimena Kramer PA-C - 07/22/2024 11:32 AM EST The following approved medication requests have been transmitted electronically. Requested Prescriptions Signed Prescriptions Disp Refills clonazePAM (KLONOPIN) 0.5 mg tablet 30 tablet 0 Sig: Take 1 tablet by mouth every 6 hours as needed (muscle spasms) for up to 30 days. Authorizing Provider: JIMENA KRAMER PA-C * Telephone Encounter - Roselia Good HUC - 07/22/2024 10:28 AM EST Please see encounter for request increase for medication Source : call from patient requesting refill. Delivery : e-script Requested Prescriptions Pending Prescriptions Disp Refills clonazePAM (KLONOPIN) 0.5 mg tablet 30 tablet 0 Sig: Take 1 tablet by mouth every 6 hours as needed (muscle spasms) for up to 10 days. DX : Patient last seen 07/11/2024 Next Appointment : ALFREDA Bonilla documented in this encounterA[facility]02-04-[facility] Telephone encounter Note * Telephone Encounter - Shanika Vidales RN - 07/22/2024 11:19 AM EST SPECIALTY CARE COORDINATION QUICK NOTE Called patient Patient identified by name and date of : Yes He feels current spasticity/spasms are minimally controled on current medications Taking: Baclofen 40 mg three times a day Tizanidine 2 mg tablet, 6 mg four times a day ClonAZEPAM 0.5 mg tablet, taking 1 tablet four times a day [facility] Will forward to provider for review and recommendation Will call back today he verbalized understanding and agrees with plan [facility]02-04-[facility] Telephone encounter Note* Telephone Encounter - Roselia Good HUC - 07/22/2024 10:28 AM EST Please see encounter for request increase for medication Source : call from patient requesting refill. Delivery : e-script Requested Prescriptions Pending Prescriptions Disp Refills clonazePAM (KLONOPIN) 0.5 mg tablet 30 tablet 0 Sig: Take 1 tablet by mouth every 6 hours as needed (muscle spasms) for up to 10 days. DX : Patient last seen 07/11/2024 Next Appointment : ALFREDA Bonilla [facility]02-04-2025 Telephone encounter Note* Telephone Encounter - Roselia Good HUC - 07/22/2024 10:27 AM EST Ani Call Name of caller : Mateus Relationship to patient: Self Return call phone number : [phone] Reason for call : Other : Brief description of concern : Patient would like to have increase in Klonopin Patient still having issues with muscle spasms thinks increase may help. [facility]01[facility]30[facility] 07-15-2024 [facility]28-20[facility]27-[facility]-2025 Note [facility]01-24-2025 Telephone encounter Note* Telephone Encounter - Shanika Vidales RN - 07/11/2024 2:56 PM EST PATIENT SEEN TODAY AT WITH Dr Napier Plan [facility] Work Phone: [phone]) [phone] Miscellaneous Notes* Telephone Encounter - Shanika Vidales RN - 07/11/2024 2:56 PM EST PATIENT SEEN TODAY AT WITH Dr Napier Plan for direct admission on 07/13/24 at 2pm [facility] * Telephone Encounter - Shanika Vidales RN - 07/09/2024 4:52 PM EST Sent message to Dr Napier to see if can add on 1230/1pm on Sunday Jimena has openings Sunday at [place] * Telephone Encounter - Shanika Vidales RN - 07/09/2024 4:49 PM EST Images from the original note were not included. Renata Napier MD No problem. We will reach out to him. documented in this encounterAdena [facility]01-24-2025 [facility]01-24-2025 History of Present illness Narrative* Renata Napier MD - 07/11/2024 1:03 PM EST Images from the original note were not included. INTRATHECAL BACLOFEN THERAPY MANAGEMENT VISIT Mr. Manzano was accompanied by his father. PAST SURGICAL HISTORY Procedure Laterality Date IMPLTJ/RPLCMT ITHCL/EDRL DRUG NFS PRGRBL PUMP 03/02/2015 SynchroMed II, 40 ml pump with catheter tip at T9 - Informed consent sigend on 03/03/15 (paper form) IMPLTJ/RPLCMT ITHCL/EDRL DRUG NFS PRGRBL PUMP 10/13/2016 Revision of ITB catheter due to malfunction PAST SURGICAL HISTORY OF 11/09/2012 laminectomy T-4-T-12 PAST SURGICAL HISTORY OF 2002 ORIF with pins right hand PAST SURGICAL HISTORY OF 2012 filter placement for DVT PAST SURGICAL HISTORY OF percutaneous vascular procedure PAST SURGICAL HISTORY OF neck surgery REVISE MEDIAN N/CARPAL TUNNEL SURG Bilateral 2020 HISTORY SINCE LAST VISIT: Mr. Manzano is treated with intrathecal baclofen for severe lower extremity spasticity due to spinal cord injury. He has a skin breakdown over the baclofen pump, for which hewas seen by Dr. Salinas and Ceferion Jones PA-C on 07/09/24. Hospitalization for aggressive ITB taper, antibiotic treatment, and hardware explantation was strongly recommended. Mr. Manzano declined hospitalization and requested to continue outpatient ITB rate decreases (the ITB rate was decreased by 20%on 07/09/24). Mr. Manzano reports occasional muscle spasms in the legs. He reports no pain, and denies and symptoms of baclofen withdrawal. He denies fever or chills. He has reduced his activity level in the past few days. He has been applying a dressing over the wound daily. He takes baclofen 40 mg twice daily. He denies worsening of spasticity with the most recent rate decreases. Exercise / stretching / rehabilitation: very active physically Use of oral medications for spasticity: Yes Patient Entered Data PROMIS No data to display Spasticity NRS 07/23/2023 04/16/2023 01/08/2023 11/15/2022 10/02/2022 -- Spasticity Level 4 Spasm Scale 1=Mild spasms induced by stimulation 1=Mild spasms induced by stimulation 1=Mild spasmsinduced by stimulation 1=Mild spasms induced by stimulation Spasm Scale - Trendable Number 1 1 1 1 Spasm Scale 11/15/2022 10/02/2022 08/31/2022 07/10/2022 06/16/2022 -- Spasm Frequency Mild spasms induced by stimulation Mild spasms induced by stimulation Mild spasms induced by stimulation Mild spasms induced by stimulation Mild spasms induced by stimulation Spasm Severity Mild Mild Mild Mild Mild Global Impression of Change 11/15/2022 10/02/2022 08/31/2022 07/10/2022 06/16/2022 -- Rehab global impression of change Much improved Minimally improved Much improved Much improved Muchimproved Pain related to the purpose of the visit: No 0 on a scale of 0 to 10 Safety concerns: domestic violence, living situation, and safety at home: No Driving issues: No issues reported. Has hand controls Risk of Falls: Yes, frequency none, injuries: none Change in bowel habits: No Change in urinary symptoms suggesting UTI: No Skin Integrity: open wound above the baclofen pump. No other skin bereakdown. EXAM: Position: Sitting Strength Right Left Shoulder abduction 5 5 Elbow flexion 5 5 Elbow extension 5 5 Wrist extension 5 5 Hip flexion 2+ 1+ Knee flexion 3+ 3+ Knee extension 4 4 Plantarflexion 4 4 Dorsiflexion 3+ 3+ Spasticity Right Left Shoulder 0 0 Elbow flexors 0 0 Elbow extensors 0 0 Wrist flexors 0 0 Wrist extensors 0 0 Finger flexors 0 0 Finger extensors 0 0 Hip adductors 0 0 Knee extensors 0. 0 Knee flexors 0 0 Plantarflexors 1+ 1+ Modified Dannie Scale 0 - No increase in tone 1 - Slight increase in tone (catch and release at end of ROM) 1+ - Slight increase in tone, manifested by a catch, followed by minimal resistance throughout remainder (less than half of ROM) 2 - Marked increase in tone through most of the ROM, but affected part(s) easily moved 3 - Considerable increase in tone; passive movement difficult 4 - Affected part(s) rigid in flexion or extension Spasms observed: RUE: no right upper extremity spasms LUE: no left upper extremity spasms RLE: no right lower extremity spasms unsustained ankle clonus LLE: no left lower extremity spasms unsustained ankle clonus Timed 25 foot walk: N/A Assistance required: wheelchair Ambulation Index Score: 8 - Restricted to wheelchair, independent for transfers Patient ID verified using 2 identifiers: Yes Procedure: ITB pump adjustment UNIVERSAL PROTOCOL / SAFETY CHECKLIST Procedure to be Performed: botulinum toxin injections Sign In: A Moment of CARE was completed. Personnel directly involved with the procedure wore the appropriate PPE (Personal Protective Equipment). Special equipment: baclofen pump c programmer Patient/Surrogate Stated/Verified: PATIENT VERIFIED(optional for EMERGENT procedures): Patient name, Date of , Relevant allergies, and The intended procedure Time Out Communication: Intended patient and procedure match the source documents. Consent documented and matches the intended procedure. Relevant labs, photos, and/or imaging studies have been reviewed. No correct side/site applicable for marking and visibility. No medications required for procedure. No fire risk assessment and interventions applicable. No implant(s) inserted. Sign Out: SIGN OUT (optional for EMERGENT procedures): No specimen collected. All instruments, equipment, possible retained foreign bodies accounted for. Post-procedure follow-up management communicated and Plan of Care Visit completed when applicable. Renata Napier MD The risks, benefits and alternatives of the procedure were explained. Written Consent Obtained: yes - 12/09/2018 Current Drug: Lioresal Drug Concentration: 2000 mcg/ml Current Rate: 246.4 mcg/day Current Dose schedule: Simple continuous [employer] Residual: 23.6 ml Actual Residual: - N/A Pump Refilled: No Program Change: Yes- ITB pump decreased by 25% New Drug: Lioresal Drug Concentration: 2000 mcg/ml New Rate: 184.7 mcg/day New Dose schedule: Simple continuous Bolus Given: No Estimated ZEB: 47 months (APR 2028) Mehan alarm date: 03/02/2025 Final telemetry read and agrees with planned programming: Yes ASSESSMENT: Mr. Manzano presents with severe lower extremity spasticity from a remote spinal cord injury, well controlled with ITB therapy. Due to skin breakdown over the baclofen pump with hardware exposure, the ITB rate has been gradually decreased in preparation for surgical explantation of pump and catheter. Mr. Manzano has declined hospitalization earlier this week to allow a faster taper and antibiotic treatment. I discussed ITB treatment options and Mr. Manzano agreed to decrease the ITB rate by 25%. I reached out to the Neurosurgery team and Dr. Harley scheduled surgery for Tuesday 08/15. Mr. Manzanorequested to be admitted on Sunday 08/13 instead of today, so he can take care of his children before hospitalization. The ITB rate will be decreased after admission to bring it as close as possible to 100 mcg/day prior to surgery. I discussed with Mr. Manzano the risk of infection, including meningitis, due to the exposed baclofen pump. He does not have signs of sepsis or meningitis at this time, however I explained that an infection could occur at any time. He agreed to go to the nearest ED if he experiences any significant change in symptoms. PLAN: 1. ITB rate decreased by 25% today. 2. Admission to Neurosurgery service on Sunday 08/13 afternoon for explantation of exposed ITB hardware. Renata Napier MD documented in this encounterAdena [facility]01-23-2025 Telephone encounter Note * Telephone Encounter - Marlyn Davies - 07/10/2024 11:08 AM EST Dos 2/10 Spoke to patient. He has an appointment at [facility] tomorrow and he will stop in to EKG in the [facility] after his appointment. Marlyn Davies July 10, 2024 11:09 AM [facility] Work Phone: [phone] Miscellaneous Notes* Telephone Encounter - Marlyn Davies - 07/10/2024 11:08 AM EST Dos 2/10 Spoke to patient. He has an appointment at [facility] tomorrow and he will stop in to EKG in the [facility] after his appointment. Marlyn Davies July 10, 2024 11:09 AM * Telephone Encounter - Marlyn Davies - 07/10/2024 10:42 AM EST Dos 2/10 Left VM with call back number on secure line. Call is to discuss pre-op EKG needed prior to upcoming procedure. Marlyn Davies July 10, 2024 10:43 AM [facility] encounter Note * Telephone Encounter - Marlyn Davies - 07/10/2024 10:42 AM EST Dos 2/10 Left VM with call back number on secure line. Call is to discuss pre-op EKG needed prior to upcoming procedure. Marlyn Davies July 10, 2024 10:43 AM [facility]01-22-2025 Telephone encounter Note* Telephone Encounter - Shanika Vidales RN - 07/09/2024 4:52 PM EST Sent message to Dr Napier to see if can add on 1230/1pm on Sunday Jimena has openings Lisette at [facility]01-22-2025 Telephone encounter Note* Telephone Encounter - Shanika Vidales RN - 07/09/2024 4:49 PM EST Images from the original note were not included. Renata Napier MD No problem. We will reach out to him. [facility]01[facility]22-[facility] History of Present illness Narrative* Ceferino Jones PA-C - 07/09/2024 4:42 PM EST Baclofen pump programming Initial settings: Drug: Lioresal Drug Concentration: 2000 mcg/ml New Rate: 308.2 mcg/day Mode: Simple continuous Final settings: Drug: Lioresal Drug Concentration: 2000 mcg/ml New Rate: 246.4 mcg/day Mode: Simple continuous Low reservoir alarm date is 01/02/25. Ceferino Jones PA-C documented in this encounterAdena [facility]01-[facility]25 [facility] History of Present illness Narrative* Kaelyn Stock MD - 07/09/2024 3:20 PM EST Attending Note I evaluated the patient and personally participated in the joseph components. I agree with the resident's findings and plan as documented and have discussed the case and management of the patient's carewith the resident. Signature: Kaelyn Stock MD Date: 07/09/2024 Time: 3:20 PM documented in this encounterAdena [facility]01-22-2025 Instructions* Patient Instructions* Juani Willingham MD - 07/09/2024 2:41 PM EST Images from the original note were not included. [facility] PATIENT PREOPERATIVE INSTRUCTIONS Shaq Salinas MD has scheduled you for your procedure at this surgery center: [facility] [place] Scheduling Office: [phone] --[address] [place] [address]. Please read below carefully for your personalized instructions. Dietary Restrictions: - No solid food after midnight. - You may have 12 ounces of clear liquids (water, clear juices such as apple juice or gatorade, carbonated beverages, clear tea, black coffee, jello) until 2 hours before scheduled arrival at facility. Medications: Unless instructed differently below, stay on all of your medications until your surgery. If you start any new medications after today's visit, please contact your surgeon. Pre-Surgery Med Instructions Medication Instructions baclofen 20 mg tablet Take the day of surgery with a small sip of water hydrOXYzine pamoate (VISTARIL) 25 mg capsule Take the day of surgery with a small sip of water doxycycline (VIBRA-TABS) 100 mg tablet Take the day of surgery with a small sip of water albuterol (PROVENTIL) 2.5 mg /3 mL (0.083 %) nebulizer solution Use as needed XARELTO 20 mg tablet Stop 3 days before surgery diclofenac-miSOPROStol (ARTHROTEC) 50-200 mg-mcg per tablet Take the day of surgery with a small sip of water ondansetron orally disintegrating (ZOFRAN ODT) 4 mg disintegrating tablet Take the day of surgery with a small sip of water montelukast (SINGULAIR) 10 mg tablet Take the day of surgery with a small sip of water fluticasone (FLONASE) 50 mcg/actuation nasal spray Use as needed morphine SR (MS CONTIN, ORAMORPH SR) 15 mg 12 hr tablet Take the day of surgery with a small sip ofwater acetaminophen (TYLENOL EXTRA STRENGTH) 500 mg tablet Take the day of surgery with a small sip of water baclofen, LIORESAL, (LIORESAL) 2,000 mcg/mL injection Through intrathecal pump Pregabalin (LYRICA) 200 mg capsule Take the day of surgery with a small sip of water tiZANidine (ZANAFLEX) 2 mg tablet Take the day of surgery with a small sip of water lidocaine (XYLOCAINE) 5 % ointment Use as needed If you take any medications for erectile dysfunction-Cialis (Tadalafil), Levitra, Staxyn (Vardenafil) Viagra (Sildenenafil please do not take these for 48 hours before surgery. If you start any new medications after today's visit, please contact the surgeon's office. If you are currently using a [id number]-ddg-[id number] injectable or oral medication for diabetes or weight loss such as Dulaglutide (Trulicity), Exenatide (Byetta, Bydureon), Liraglutide (Victoza, Saxenda), Semaglutide (Ozempic, Wegovy, Rybelsus), or Tirzepatide (Mounjaro), the medicine should be stopped at least 7 days before surgery. These medicines can cause food to remain in your stomach for a very longtime and increase the risks from surgery and anesthesia. Not stopping the medication for a long enough time may result in your surgery being rescheduled. Blood Thinning Medications: - Stop NSAIDS (Ibuprofen, Advil, Aleve, Motrin, Celebrex, Mobic, etc.) 7 days before surgery, as directed by your surgeon. - Stop Xarelto 3 days before surgery or as directed by physician. - You may take Tylenol (Acetaminophen) or any of your pain medications that do not contain aspirin or NSAIDS as needed. Important Reminders: - If you are prescribed inhalers for breathing, continue using them. - Candy, mints, and tobacco products are NOT permitted the morning of surgery. - Hearing aids, dentures and glasses may be worn the morning of surgery. - NO jewelry, body piercings, makeup, hairpins or contacts are to be worn the day of surgery. If you develop symptoms such as a fever, cold, or flu, or have other changes to your health within TWO DAYS of scheduled surgery or the morning of surgery, please contact the surgery center above. Personal Belongings: -Please have photo ID and insurance cards. -If you do not have a copy of advance directives on file with us, please bring a copy with you on the day of surgery. - Leave ALL valuables and money at home or with family members. - Please bring high-quality footwear, such as sneakers, to the hospital for ambulating post-surgery. For Outpatient Procedures: - YOU MUST HAVE A RESPONSIBLE SURVEYOR HELPER TAKE YOU HOME. A TRANSPORT RN OR MACHINE ZIPPER TRIMMER CANNOT BE MADE A RESPONSIBLE SURVEYOR HELPER. - We recommend that a responsible person stays with you overnight to take care of you. - You cannot stay in a hotel alone after outpatient surgery. You will not be permitted to have yoursurgery, if you do not have someone to take care of you. Arrival Time for Surgery: - To obtain your arrival time for surgery, call your physician's office the day before your surgery. - If you have received different instructions about finding out your arrival time from your surgeon, please follow those instructions. - If your surgery is scheduled for Sunday, call the Sunday before. Your surgeon s imaging scheduler will tell you what time to call the office. - If you have not reached the departmental imaging scheduler by 5 P.M., call [phone] after 5 P.M. the day before your surgery. Please be aware that emergency situations arise, which may delay or change your surgical time. If this happens, we will notify you as soon as possible and regret any inconvenience. If you already have an Advance Directive, please fax a copy to [phone] or email to for it to be added to your chart. If you do not have an Advance Directive, you can find the appropriate form and more information at [email or web address]. We recommend that youcomplete the Advance Directive form found on the website and bring it with you the day of your surgery. It can be witnessed and scanned into your chart that day. Juani Willingham MD documented in this encounterAden[facility]01-22-2025 History of Present illness Narrative* Shaq Salinas MD - 07/09/2024 2:30 PM EST CC: Baclofen pump wound issue HPI: Mateus Manzano returns to clinic to have his baclofen pump site assessed. He reports issues with a scab that has been forming and falling off periodically. He has been getting ITB baclofen infusion decreases at the [facility] in anticipation of surgical intervention. The wound has opened and hardware can be seen now. Focused Exam: Right abdominal pump site examined. There is skin breakdown with pump hardware protruding through the skin. A new dressing was applied. I obtained the history and performed the physical exam. I have reviewed the information dictated byPSAQUALE Bonilla for accuracy. I have edited the note and agree with the final text. Impression: Mateus Manzano is a 38 yr old male with a history of SCI and spasticity. He has an ITB pump implantedfor management of spasticity. He lost weight and the pump has been mobile. The top of the pump tilts forward and protrudes. He developed a cycle of scab formation and falling off in this region. He was seen for the wound on 06/16/24 and ITB weaning was started in anticipation of surgery and possible removal. The hardware has now eroded in the right abdominal region and the pump is visible. Hospital admission was recommended for today, but he refused. The pump rate was reduced another 20% today.He did agree to go the ED if he develops signs of withdrawal, headaches, still neck, fatigue, or other changes. He will continue on the doxycycline. We will coordinate the surgery for as soon as possible from an ITB dose standpoint. Plan: Removal of pump in the right abdominal area and intrathecal catheter system Shaq Salinas MD documented in this encounterAdena [facility]01-22-2025 [facility]01-[facility]-2025 History and physical note* Juani Willingham MD - 07/09/2024 1:40 PM EST Images from the original note were not included. [facility] Pre-Anesthesia Consultation Clinic HISTORY AND PHYSICAL EXAMINATION SERVICE DATE: 07/08/2024 SERVICE TIME: 2:54 PM PRIMARY CARE PHYSICIAN: Anay Roque MD Assessment Patient has the following medical conditions which may affect charlee-operative course: Spinal cord injury, T7-T12 ([facility]) Assessment: 2/2 MRSA abscess C/b paraplegia now wheelchair dependent Endorses muscle spasms s/p intrathecal baclofen pump placement On baclofen tablets and tizanidine Paraplegia ([facility]) Assessment: see spinal cord injury Factor 5 Leiden mutation, heterozygous ([facility]) Assessment: Hx of DVT and PE's s/p IVC filter On xarelto - For previous surgeries, Dr. Trimble (chain dyer) stated ok for patient to stop xarelto 3 days prior to procedure. Reached out to Dr. Roque (prescriber and PCP said to discontinue the day before surgery and day of) Reached out to Ceferino Jones PA-C - stated that there higher potential for bleeding and need to stopxarelto for 3 days before surgery. Tobacco abuse disorder Assessment: Current smoker 1ppd for 30 years KARAN (obstructive sleep apnea) Assessment: Not on CPAP Chronic pain syndrome Assessment: On pregabalin and morphine Asthma Assessment: Mild, rarely had to use albuterol nebulizer Neurogenic bladder Assessment: Uses straight cath Recurrent UTI Assessment: Frequent UTIs requiring antibiotics Denies current symptoms History of pulmonary embolus (PE) Assessment: See Factor 5 Leiden Richardson Activity Status Index: METS: Walk indoors, such as around the house (1.75 METs) Do light work around the house, such as dusting or washing dishes (2.70 METs) Take care of self; that is eating, dressing, bathing, using the toilet (2.75 METs) Do moderate work around the house, such as vacuuming, sweeping floors, or carrying in groceries (3.50 METs) Do yardwork, such as raking leaves, weeding, or pushing a power mower (4.50 METs) Have sexual relations (5.25 METs) Cannot walk a block or two on level ground Cannot climb a flight of stairs or walk up a hill Cannot participate in moderate recreational activites, such as golf, bowling, dancing, doubles tennis, or throwing a baseball or football Cannot participate in strenuous sport, such as swimming, singles tennis, football, basketball, or skiing Cannot do heavy work around the house, such as scrubbing floors, lifting or moving heavy furniture Cannot run a short distance DASI Score: 20.45 (Limited due to paraplegia) Patient denies any chest pain or undue shortness of breath with the above physical activity. Patient is partially dependent. Clinical Frailty Scale: 3. Well, with treated comorbid disease STOP-Bang Score: STOP-Bang Score: (Hx of previously diagnosed KARAN not on CPAP) [id number] Score: Age: <65 Sex: male CHF history: No Hypertension history: No Stroke/TIA/thromboembolism history: Yes Vascular disease history: No Diabetes history: No [id number] Score: 2 ASA Class: 3 ANESTHESIA FINDINGS: Intubation History: No history of difficult intubation. No abnormal airway history Significant Anesthesia Considerations: none Airway History: No history of difficult airway No abnormal airway history I - PHYSICAL EVALUATION AIRWAY Patient intubated: No. Tracheostomy tube not present Mallampati: II. TM distance: >3 FB. Neck ROM: full ROM without neurological symptoms. Mouth opening: adequate. Short neck: no. Thick neck: no Mondragon present: yes Lip Bite Test: II Microretrognathia/Micronagthia/Recessed Chin: No DENTAL Dental findings: chipped. II - ANESTHESIA PLAN ASA Score: 3 Anesthetic plan additional comments: *PACC/TCI - anesthesia choice. Beta Shanika Monitoring Plan Post Procedure Analgesic Plan Prepared for Surgery: optimally prepared for surgery, pending [see comment]. Type and screen, CBC, BMP and EKG CONSULTS: Patient does not require consults for optimization at this time Planned Anesthetic: anesthesia choice The Following Tests/Procedures Have Been Initiated: No orders of the defined types were placed in this encounter. REASON FOR VISIT: Mateus Manzano is a 38 year old male who is scheduled for Procedure(s): REVISE TUNNELED INTRATHECAL CATHETER W/O LAMI (Bilateral) REMOVAL PUMP INTRATHECAL (Bilateral) at the request of Dr. Salinas, Shaq Machuca MD for consultation. My final recommendation will be communicated back to the requesting physician by way of shared medical record or letter. Subjective The patient has the following: COVID-19 Immunization Status Overdue - Covid-19 Vaccine ( season) Never done No completion, postpone, frequency change, or communication history exists for this topic. CHIEF COMPLAINT: Pre-anesthesia evaluation HPI: Patient is a 38 yo male with a history of T7-12 spinal cord injury c/b paraplegia and muscle spasticity s/p intrathecal baclofen pump who is scheduled for revision of intrathecal pump on 07/[address] Salinas. REVIEW OF SYSTEMS: General: No weight loss, malaise or fevers. Negative for: unintentional weight change, weight loss >10% of BW in last 6 months and fever. Neurological: Positive for: paraplegia. Negative for: headaches, seizures, TIA and strokes. Respiratory: Positive for: asthma, current cough, tobacco use, obstructive sleep apnea and CPAP/BiPAP noncompliant. Negative for: bronchodilator used daily for the last 3 months. Cardiovascular: Positive for: anticoagulation therapy and DVT/PE Negative for: angina, arrhythmia, CAD, chest pain and CHF. GI: No history of GI symptoms or problems. No history of esophageal varices, recent ascites, or ETOH greater than 2 drinks per day. Negative for: abdominal pain, GERD, liver disease, nausea, vomiting and ETOH >2 drinks/day. : Positive for: self catheterization. Endocrine: No history of diabetes. Has not taken steroids within the past 30 days. No history of endocrinological symptoms or problems. Negative for: diabetes mellitus, hyperthyroidism, hypothyroidism and steroid for chronic problem. Hematology: Positive for: factor V Leiden and chronic anti-coagulation/platelet meds. Patient is on anti-coagulation/platelet medication(s): DOAC. Negative for: anemia and bruises/bleeds easily. Oncology: No history of CA metastasis, chemo within 30 days, or radiotherapy within 90 days. No history of oncological symptoms or problems. Psych: Positive for: anxiety. Negative for: depression. Musculoskeletal: Positive for: back pain and joint pain. Skin: Negative for lesions, rash and itching. Negative for: lesions and itching. PAST MEDICAL HISTORY Diagnosis Date Asthma 08/05/2021 Clotting disorder (HCC) HUGH-1 DVT (deep venous thrombosis) ([facility]) 2012 ED (erectile dysfunction) Factor 5 Leiden mutation, heterozygous (HCC) History of spinal cord injury 03/03/2015 Lower urinary tract infectious disease Methylenetetrahydrofolate reductase (MTHFR) gene mutation MRSA (methicillin resistant Staphylococcus aureus) 10/2012 spine Neurogenic bladder self straight catheterization KARAN (obstructive sleep apnea) pt never got a cpap; pt unsure if he needed one KARAN (obstructive sleep apnea) 08/05/2021 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 Recurrent UTI Sepsis ([facility]) 02/20/2021 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[facility]) PAST SURGICAL HISTORY Procedure Laterality Date IMPLTJ/RPLCMT ITHCL/EDRL DRUG NFS PRGRBL PUMP 03/02/2015 SynchroMed II, 40 ml pump with catheter tip at T9 - Informed consent sigend on 03/03/15 (paper form) IMPLTJ/RPLCMT ITHCL/EDRL DRUG NFS PRGRBL PUMP 10/13/2016 Revision of ITB catheter due to malfunction PAST SURGICAL HISTORY OF 11/09/2012 laminectomy T-4-T-12 PAST SURGICAL HISTORY OF 2002 ORIF with pins right hand PAST SURGICAL HISTORY OF 2012 filter placement for DVT PAST SURGICAL HISTORY OF percutaneous vascular procedure PAST SURGICAL HISTORY OF neck surgery REVISE MEDIAN N/CARPAL TUNNEL SURG Bilateral 2020 FAMILY HISTORY Problem Relation Age of Onset Diabetes Father other (factor v leiden) Father homozigus carries mthfr other (factor v leiden) Mother homozigus carries pie 1 Cancer Paternal Grandfather Heart disease Paternal Grandfather Cancer Paternal Grandmother leukemia Heart Paternal Grandmother Anesthesia Problems No Family History Social History Tobacco Use Smoking status: Every Day Current packs/day: 1.00 Average packs/day: 1 pack/day for 18.0 years (18.0 ttl pk-yrs) Types: Cigarettes Passive exposure: Current Smokeless tobacco: Former Types: Chew Quit date: 01/19/2005 Vaping Use Vaping status: Never Used Substance Use Topics Alcohol use: Yes Comment: rarely Drug use: No Prior to Admission medications as of 07/09/24 1421 Medication Sig Last Dose Taking baclofen 20 mg tablet Take 2 tablets by mouth three times a day. Patient taking differently: Take 40 mg by mouth two times a day. Taking Differently Yes hydrOXYzine pamoate (VISTARIL) 25 mg capsule Take 1 capsule by mouth three times a day as needed for itching/rash or anxiety. Taking Yes doxycycline (VIBRA-TABS) 100 mg tablet Take 1 tablet by mouth two times a day. Taking Yes albuterol (PROVENTIL) 2.5 mg /3 mL (0.083 %) nebulizer solution Use 3 mL via nebulizer every 6 hours as needed for wheezing/shortness of breath. Taking Yes XARELTO 20 mg tablet Take 1 tablet by mouth once daily. Taking Yes diclofenac-miSOPROStol (ARTHROTEC) 50-200 mg-mcg per tablet Take 50 mg by mouth. Taking Yes ondansetron orally disintegrating (ZOFRAN ODT) 4 mg disintegrating tablet Take 1 tablet by mouth every 8 hours as needed for nausea/vomiting. Taking Yes montelukast (SINGULAIR) 10 mg tablet Take 1 tablet by mouth daily at bedtime. Taking Yes fluticasone (FLONASE) 50 mcg/actuation nasal spray Use 2 Sprays in each nostril two times a day. Rinse mouth after use. Taking Yes morphine SR (MS CONTIN, ORAMORPH SR) 15 mg 12 hr tablet Take 1 tablet by mouth every 12 hours for 5days. Taking Yes acetaminophen (TYLENOL EXTRA STRENGTH) 500 mg tablet Take 2 tablets by mouth every 6 hours as needed for pain. Taking Yes baclofen, LIORESAL, (LIORESAL) 2,000 mcg/mL injection [employer] ITB refill Kit #[id number], Lioresal 2000mcg/ml, 40 ml pump to be refilled as directed. Taking Yes Pregabalin (LYRICA) 200 mg capsule Take 200 mg by mouth twice daily. Taking Yes tiZANidine (ZANAFLEX) 2 mg tablet Take 2 mg by mouth twice daily. Taking Yes lidocaine (XYLOCAINE) 5 % ointment Apply to affected area as needed. Taking Yes ondansetron (ZOFRAN) 4 mg tablet Take 4 mg by mouth three times a day as needed. Patient not taking: Reported on 07/09/2024 Not Taking cephALEXin (KEFLEX) 500 mg capsule 1 capsule. Patient not taking: Reported on 07/09/2024 Not Taking sulfamethoxazole-trimethoprim (BACTRIM DS) 800-160 mg per tablet Take 1 tablet by mouth two times aday. Patient not taking: Reported on 07/09/2024 Not Taking cabergoline (DOSTINEX) 0.5 mg tablet Not Taking clotrimazole (LOTRIMIN) 1 % cream Not Taking oxytocin osorio 50 unit (CPD) Take 1 Osorio by mouth as directed. Dissolve 1 to 3 osorio (250IU) under the tongue 30-60 minutes prior to sexual activity Patient not taking: Reported on 07/09/2024 Not Taking clomiPHENe (CLOMID) 50 mg tablet Take 1 tablet by mouth three times a week. Patient not taking: Reported on 07/09/2024 Not Taking Tadalafil (CIALIS) 5 mg tablet Take 1 pill daily Patient not taking: Reported on 07/09/2024 Not Taking sildenafil (REVATIO) 20 mg tablet TAKE 1 TABLET BY MOUTH DIRECTED (may take up to 5 (FIVE) TABLETS 1 (ONE) hour prior to sexual activity) Patient not taking: Reported on 07/09/2024 Not Taking diclofenac, EC, (VOLTAREN) 25 mg EC tablet Take 1 tablet by mouth twice daily. Patient not taking: Reported on 07/09/2024 Not Taking docusate sodium (COLACE) 100 mg capsule Take 100 mg by mouth two times a day. Patient not taking: Reported on 07/09/2024 Not Taking No medication comments found. ALLERGIES Allergen Reactions Piperacillin-Tazoba* Hives Patient states he can tolerate penicillin and amoxicillin and has tolerated since the Zosyn reaction. There are no [facility] administrations of penicillins. Patient states he has tolerated oral cephalosporins in the past. There are outpatient prescription records for cephalexin listed in [facility]. Zosyn [Piperacillin* Hives Hydrocodone-Acetami* Other: See Comments headaches Piperacillin Hives Tazobactam Hives Codeine Intolerance, Other: See Comments nightmares Objective PHYSICAL EXAM: General: alert and oriented and healthy appearance. Pertinent negatives noted - not distressed. Skin: normal color, no rash or lesions. HEENT: EOM intact and pupils equal round. Cardiovascular: regular rate and rhythm, normal S1 and S2, no rub, murmurs, or gallop. Respiratory: No chest wall deformity or tenderness. Mild end inspiratory wheezing bilaterally. Abdomen: bowel sounds present and soft. Pertinent negatives noted - not tender. Extremities: no deformity, no edema or tenderness, no joint swelling or clubbing. Wheel-chair bound. Neurological: normal cognition and motor skills. PAIN ASSESSMENT: Pain Pain Level: 1 Pain Location: Abdomen-Right Lower Quadrant Description: Sharp Duration Amount of Time: 2 Duration Units: Years Frequency: Intermittent Intervention/Comfort measure: Declined VITALS: BP 145/82 Pulse 84 Temp (Src) 97 (Temporal) Resp 20 Ht 6' 4 (1.93m) Wt 278 lb (126.1kg) SpO2 96% BMI 33.85 kg/(m^2). Diagnostic tests reviewed for today's visit: Lab Value Units Date High Low HB 16.0 g/dL 06/16/2024 17.0 13.0 HCT 48.4 % 06/16/2024 51.0 39.0 WBC 5.45 k/uL 06/16/2024 11.00 3.70 PLT 149 k/uL 06/16/2024 400 150 NA 139 mmol/L 06/16/2024 144 136 K 4.4 mmol/L 06/16/2024 5.1 3.7 GLUC 84 mg/dL 06/16/2024 99 74 BUN 9 mg/dL 06/16/2024 24 9 CREAT 0.78 mg/dL 06/16/2024 1.22 0.73 PTSEC 11.5 sec 06/16/2024 13.0 9.7 INR 1.1 no uni* 06/16/2024 1.3 0.9 APTT 36.6 sec 06/16/2024 32.4 23.0 ALT 30 U/L 01/31/2024 54 10 AST 21 U/L 01/31/2024 40 14 TBILI 0.4 mg/dL 01/31/2024 1.3 0.2 TSH No results within date range. Lab Value Units Date High Low HCGQT No results within date range. UHCG No results within date range. HCG, BODY* No results within date range. Lab Value Units Date High Low ABORHD No results within date range. ABSCREEN No results within date range. Hemoglobin A1C (%) Date Value 01/31/2024 5.0 10/07/2015 5.0 No results found for this or any previous visit (from the past 8760 hour(s)). No results found for this or any previous visit (from the past 22723 hour(s)). Instructions Given to Patient: Instructions located in the after visit summary. Patient given verbal and written preop instructions and voices comprehension and compliance. SIGNATURE: Juani Willingham MD PATIENT NAME: Mateus Manzano DATE: July 08, 2024 TIME: 7:11 PM PAGER/CONTACT #: [facility]01-22-2025 History and physical note* Juani Willingham MD - 07/09/2024 1:40 PM EST Images from the original note were not included. [facility] HISTORY AND PHYSICAL EXAMINATION SERVICE DATE: 07/08/2024 SERVICE TIME: 2:54 PM PRIMARY CARE PHYSICIAN: Anay Roque MD Assessment Patient has the following medical conditions which may affect charlee-operative course: Spinal cord injury, T7-T12 ([facility]) Assessment: 2/2 MRSA abscess C/b paraplegia now wheelchair dependent Endorses muscle spasms s/p intrathecal baclofen pump placement On baclofen tablets and tizanidine Paraplegia ([facility]) Assessment: see spinal cord injury Factor 5 Leiden mutation, heterozygous ([facility]) Assessment: Hx of DVT and PE's s/p IVC filter On xarelto - For previous surgeries, Dr. Trimble (chain dyer) stated ok for patient to stop xarelto 3 days prior to procedure. Reached out to Dr. Roque (prescriber and PCP said to discontinue the day before surgery and day of) Reached out to Ceferino Jones PA-C - stated that there higher potential for bleeding and need to stopxarelto for 3 days before surgery. Tobacco abuse disorder Assessment: Current smoker 1ppd for 30 years KARAN (obstructive sleep apnea) Assessment: Not on CPAP Chronic pain syndrome Assessment: On pregabalin and morphine Asthma Assessment: Mild, rarely had to use albuterol nebulizer Neurogenic bladder Assessment: Uses straight cath Recurrent UTI Assessment: Frequent UTIs requiring antibiotics Denies current symptoms History of pulmonary embolus (PE) Assessment: See Factor 5 Leiden Richardson Activity Status Index: METS: Walk indoors, such as around the house (1.75 METs) Do light work around the house, such as dusting or washing dishes (2.70 METs) Take care of self; that is eating, dressing, bathing, using the toilet (2.75 METs) Do moderate work around the house, such as vacuuming, sweeping floors, or carrying in groceries (3.50 METs) Do yardwork, such as raking leaves, weeding, or pushing a power mower (4.50 METs) Have sexual relations (5.25 METs) Cannot walk a block or two on level ground Cannot climb a flight of stairs or walk up a hill Cannot participate in moderate recreational activites, such as golf, bowling, dancing, doubles tennis, or throwing a baseball or football Cannot participate in strenuous sport, such as swimming, singles tennis, football, basketball, or skiing Cannot do heavy work around the house, such as scrubbing floors, lifting or moving heavy furniture Cannot run a short distance DASI Score: 20.45 (Limited due to paraplegia) Patient denies any chest pain or undue shortness of breath with the above physical activity. Patient is partially dependent. Clinical Frailty Scale: 3. Well, with treated comorbid disease STOP-Bang Score: STOP-Bang Score: (Hx of previously diagnosed KARAN not on CPAP) [id number] Score: Age: <65 Sex: male CHF history: No Hypertension history: No Stroke/TIA/thromboembolism history: Yes Vascular disease history: No Diabetes history: No [id number] Score: 2 ASA Class: 3 ANESTHESIA FINDINGS: Intubation History: No history of difficult intubation. No abnormal airway history Significant Anesthesia Considerations: none Airway History: No history of difficult airway No abnormal airway history I - PHYSICAL EVALUATION AIRWAY Patient intubated: No. Tracheostomy tube not present Mallampati: II. TM distance: >3 FB. Neck ROM: full ROM without neurological symptoms. Mouth opening: adequate. Short neck: no. Thick neck: no Mondragon present: yes Lip Bite Test: II Microretrognathia/Micronagthia/Recessed Chin: No DENTAL Dental findings: chipped. II - ANESTHESIA PLAN ASA Score: 3 Anesthetic plan additional comments: *PACC/TCI - anesthesia choice. Beta Shanika Monitoring Plan Post Procedure Analgesic Plan Prepared for Surgery: optimally prepared for surgery, pending [see comment]. Type and screen, CBC, BMP and EKG CONSULTS: Patient does not require consults for optimization at this time Planned Anesthetic: anesthesia choice The Following Tests/Procedures Have Been Initiated: No orders of the defined types were placed in this encounter. REASON FOR VISIT: Mateus Manzano is a 38 year old male who is scheduled for Procedure(s): REVISE TUNNELED INTRATHECAL CATHETER W/O LAMI (Bilateral) REMOVAL PUMP INTRATHECAL (Bilateral) at the request of Shaq Francois MD for consultation. My final recommendation will be communicated back to the requesting physician by way of shared medical record or letter. Subjective The patient has the following: COVID-19 Immunization Status Overdue - Covid-19 Vaccine ( season) Never done No completion, postpone, frequency change, or communication history exists for this topic. CHIEF COMPLAINT: Pre-anesthesia evaluation HPI: Patient is a 38 yo male with a history of T7-12 spinal cord injury c/b paraplegia and muscle spasticity s/p intrathecal baclofen pump who is scheduled for revision of intrathecal pump on 07/[address] Salinas. REVIEW OF SYSTEMS: General: No weight loss, malaise or fevers. Negative for: unintentional weight change, weight loss >10% of BW in last 6 months and fever. Neurological: Positive for: paraplegia. Negative for: headaches, seizures, TIA and strokes. Respiratory: Positive for: asthma, current cough, tobacco use, obstructive sleep apnea and CPAP/BiPAP noncompliant. Negative for: bronchodilator used daily for the last 3 months. Cardiovascular: Positive for: anticoagulation therapy and DVT/PE Negative for: angina, arrhythmia, CAD, chest pain and CHF. GI: No history of GI symptoms or problems. No history of esophageal varices, recent ascites, or ETOH greater than 2 drinks per day. Negative for: abdominal pain, GERD, liver disease, nausea, vomiting and ETOH >2 drinks/day. : Positive for: self catheterization. Endocrine: No history of diabetes. Has not taken steroids within the past 30 days. No history of endocrinological symptoms or problems. Negative for: diabetes mellitus, hyperthyroidism, hypothyroidism and steroid for chronic problem. Hematology: Positive for: factor V Leiden and chronic anti-coagulation/platelet meds. Patient is on anti-coagulation/platelet medication(s): DOAC. Negative for: anemia and bruises/bleeds easily. Oncology: No history of CA metastasis, chemo within 30 days, or radiotherapy within 90 days. No history of oncological symptoms or problems. Psych: Positive for: anxiety. Negative for: depression. Musculoskeletal: Positive for: back pain and joint pain. Skin: Negative for lesions, rash and itching. Negative for: lesions and itching. PAST MEDICAL HISTORY Diagnosis Date Asthma 08/05/2021 Clotting disorder ([facility]) HUGH-1 DVT (deep venous thrombosis) ([facility]) 2012 ED (erectile dysfunction) Factor 5 Leiden mutation, heterozygous ([facility]) History of spinal cord injury 03/03/2015 Lower urinary tract infectious disease Methylenetetrahydrofolate reductase (MTHFR) gene mutation MRSA (methicillin resistant Staphylococcus aureus) 10/2012 spine Neurogenic bladder self straight catheterization KARAN (obstructive sleep apnea) pt never got a cpap; pt unsure if he needed one KARAN (obstructive sleep apnea) 08/05/2021 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 Recurrent UTI Sepsis ([facility]) 02/20/2021 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[facility]) PAST SURGICAL HISTORY Procedure Laterality Date IMPLTJ/RPLCMT ITHCL/EDRL DRUG NFS PRGRBL PUMP 03/02/2015 SynchroMed II, 40 ml pump with catheter tip at T9 - Informed consent sigend on 03/03/15 (paper form) IMPLTJ/RPLCMT ITHCL/EDRL DRUG NFS PRGRBL PUMP 10/13/2016 Revision of ITB catheter due to malfunction PAST SURGICAL HISTORY OF 11/09/2012 laminectomy T-4-T-12 PAST SURGICAL HISTORY OF 2002 ORIF with pins right hand PAST SURGICAL HISTORY OF 2012 filter placement for DVT PAST SURGICAL HISTORY OF percutaneous vascular procedure PAST SURGICAL HISTORY OF neck surgery REVISE MEDIAN N/CARPAL TUNNEL SURG Bilateral 2019 FAMILY HISTORY Problem Relation Age of Onset Diabetes Father other (factor v leiden) Father homozigus carries mthfr other (factor v leiden) Mother homozigus carries pie 1 Cancer Paternal Grandfather Heart disease Paternal Grandfather Cancer Paternal Grandmother leukemia Heart Paternal Grandmother Anesthesia Problems No Family History Social History Tobacco Use Smoking status: Every Day Current packs/day: 1.00 Average packs/day: 1 pack/day for 18.0 years (18.0 ttl pk-yrs) Types: Cigarettes Passive exposure: Current Smokeless tobacco: Former Types: Chew Quit date: 01/19/2005 Vaping Use Vaping status: Never Used Substance Use Topics Alcohol use: Yes Comment: rarely Drug use: No Prior to Admission medications as of 07/09/24 1421 Medication Sig Last Dose Taking baclofen 20 mg tablet Take 2 tablets by mouth three times a day. Patient taking differently: Take 40 mg by mouth two times a day. Taking Differently Yes hydrOXYzine pamoate (VISTARIL) 25 mg capsule Take 1 capsule by mouth three times a day as needed for itching/rash or anxiety. Taking Yes doxycycline (VIBRA-TABS) 100 mg tablet Take 1 tablet by mouth two times a day. Taking Yes albuterol (PROVENTIL) 2.5 mg /3 mL (0.083 %) nebulizer solution Use 3 mL via nebulizer every 6 hours as needed for wheezing/shortness of breath. Taking Yes XARELTO 20 mg tablet Take 1 tablet by mouth once daily. Taking Yes diclofenac-miSOPROStol (ARTHROTEC) 50-200 mg-mcg per tablet Take 50 mg by mouth. Taking Yes ondansetron orally disintegrating (ZOFRAN ODT) 4 mg disintegrating tablet Take 1 tablet by mouth every 8 hours as needed for nausea/vomiting. Taking Yes montelukast (SINGULAIR) 10 mg tablet Take 1 tablet by mouth daily at bedtime. Taking Yes fluticasone (FLONASE) 50 mcg/actuation nasal spray Use 2 Sprays in each nostril two times a day. Rinse mouth after use. Taking Yes morphine SR (MS CONTIN, ORAMORPH SR) 15 mg 12 hr tablet Take 1 tablet by mouth every 12 hours for 5days. Taking Yes acetaminophen (TYLENOL EXTRA STRENGTH) 500 mg tablet Take 2 tablets by mouth every 6 hours as needed for pain. Taking Yes baclofen, LIORESAL, (LIORESAL) 2,000 mcg/mL injection Swapbox ITB refill Kit #[id number], Lioresal 2000mcg/ml, 40 ml pump to be refilled as directed. Taking Yes Pregabalin (LYRICA) 200 mg capsule Take 200 mg by mouth twice daily. Taking Yes tiZANidine (ZANAFLEX) 2 mg tablet Take 2 mg by mouth twice daily. Taking Yes lidocaine (XYLOCAINE) 5 % ointment Apply to affected area as needed. Taking Yes ondansetron (ZOFRAN) 4 mg tablet Take 4 mg by mouth three times a day as needed. Patient not taking: Reported on 07/09/2024 Not Taking cephALEXin (KEFLEX) 500 mg capsule 1 capsule. Patient not taking: Reported on 07/09/2024 Not Taking sulfamethoxazole-trimethoprim (BACTRIM DS) 800-160 mg per tablet Take 1 tablet by mouth two times aday. Patient not taking: Reported on 07/09/2024 Not Taking cabergoline (DOSTINEX) 0.5 mg tablet Not Taking clotrimazole (LOTRIMIN) 1 % cream Not Taking oxytocin osorio 50 unit (CPD) Take 1 Osorio by mouth as directed. Dissolve 1 to 3 osorio (250IU) under the tongue 30-60 minutes prior to sexual activity Patient not taking: Reported on 07/09/2024 Not Taking clomiPHENe (CLOMID) 50 mg tablet Take 1 tablet by mouth three times a week. Patient not taking: Reported on 07/09/2024 Not Taking Tadalafil (CIALIS) 5 mg tablet Take 1 pill daily Patient not taking: Reported on 07/09/2024 Not Taking sildenafil (REVATIO) 20 mg tablet TAKE 1 TABLET BY MOUTH DIRECTED (may take up to 5 (FIVE) TABLETS 1 (ONE) hour prior to sexual activity) Patient not taking: Reported on 07/09/2024 Not Taking diclofenac, EC, (VOLTAREN) 25 mg EC tablet Take 1 tablet by mouth twice daily. Patient not taking: Reported on 07/09/2024 Not Taking docusate sodium (COLACE) 100 mg capsule Take 100 mg by mouth two times a day. Patient not taking: Reported on 07/09/2024 Not Taking No medication comments found. ALLERGIES Allergen Reactions Piperacillin-Tazoba* Hives Patient states he can tolerate penicillin and amoxicillin and has tolerated since the Zosyn reaction. There are no [facility] administrations of penicillins. Patient states he has tolerated oral cephalosporins in the past. There are outpatient prescription records for cephalexin listed in [facility]. Zosyn [Piperacillin* Hives Hydrocodone-Acetami* Other: See Comments headaches Piperacillin Hives Tazobactam Hives Codeine Intolerance, Other: See Comments nightmares Objective PHYSICAL EXAM: General: alert and oriented and healthy appearance. Pertinent negatives noted - not distressed. Skin: normal color, no rash or lesions. HEENT: EOM intact and pupils equal round. Cardiovascular: regular rate and rhythm, normal S1 and S2, no rub, murmurs, or gallop. Respiratory: No chest wall deformity or tenderness. Mild end inspiratory wheezing bilaterally. Abdomen: bowel sounds present and soft. Pertinent negatives noted - not tender. Extremities: no deformity, no edema or tenderness, no joint swelling or clubbing. Wheel-chair bound. Neurological: normal cognition and motor skills. PAIN ASSESSMENT: Pain Pain Level: 1 Pain Location: Abdomen-Right Lower Quadrant Description: Sharp Duration Amount of Time: 2 Duration Units: Years Frequency: Intermittent Intervention/Comfort measure: Declined VITALS: BP 145/82 Pulse 84 Temp (Src) 97 (Temporal) Resp 20 Ht 6' 4 (1.93m) Wt 278 lb (126.1kg) SpO2 96% BMI 33.85 kg/(m^2). Diagnostic tests reviewed for today's visit: Lab Value Units Date High Low HB 16.0 g/dL 06/16/2024 17.0 13.0 HCT 48.4 % 06/16/2024 51.0 39.0 WBC 5.45 k/uL 06/16/2024 11.00 3.70 PLT 149 k/uL 06/16/2024 400 150 NA 139 mmol/L 06/16/2024 144 136 K 4.4 mmol/L 06/16/2024 5.1 3.7 GLUC 84 mg/dL 06/16/2024 99 74 BUN 9 mg/dL 06/16/2024 24 9 CREAT 0.78 mg/dL 06/16/2024 1.22 0.73 PTSEC 11.5 sec 06/16/2024 13.0 9.7 INR 1.1 no uni* 06/16/2024 1.3 0.9 APTT 36.6 sec 06/16/2024 32.4 23.0 ALT 30 U/L 01/31/2024 54 10 AST 21 U/L 01/31/2024 40 14 TBILI 0.4 mg/dL 01/31/2024 1.3 0.2 TSH No results within date range. Lab Value Units Date High Low HCGQT No results within date range. UHCG No results within date range. HCG, BODY* No results within date range. Lab Value Units Date High Low ABORHD No results within date range. ABSCREEN No results within date range. Hemoglobin A1C (%) Date Value 01/31/2024 5.0 10/07/2015 5.0 No results found for this or any previous visit (from the past 8760 hour(s)). No results found for this or any previous visit (from the past 38827 hour(s)). Instructions Given to Patient: Instructions located in the after visit summary. Patient given verbal and written preop instructions and voices comprehension and compliance. SIGNATURE: Juani Willingham MD PATIENT NAME: Mateus Manzano DATE: July 08, 2024 TIME: 7:11 PM PAGER/CONTACT #: [facility] Instructions* Patient Instructions* Jimena Kramer PA-C - 07/08/2024 9:32 AM EST ITB pump was decreased by 20% today 308.2mcg You can increase your oral Baclofen up to 40mg three times per day as needed for signs and symptomsof Baclofen withdrawal or severe spasms You were recommended for direct admission today, You will be coming for pre-op appointments tomorrow with Neurosurgery. If symptoms worsen please come to [facility] Emergency Room documented in [facility] History of Present illness Narrative* Jimena Kramer PA-C - 07/08/2024 9:00 AM EST Images from the original note were not included. INTRATHECAL BACLOFEN THERAPY MANAGEMENT VISIT Patient accompanied by Self PAST SURGICAL HISTORY Procedure Laterality Date IMPLTJ/RPLCMT ITHCL/EDRL DRUG NFS PRGRBL PUMP 03/02/2015 SynchroMed II, 40 ml pump with catheter tip at T9 - Informed consent sigend on 03/03/15 (paper form) IMPLTJ/RPLCMT ITHCL/EDRL DRUG NFS PRGRBL PUMP 10/13/2016 Revision of ITB catheter due to malfunction PAST SURGICAL HISTORY OF 11/09/2012 laminectomy T-4-T-12 PAST SURGICAL HISTORY OF 2002 ORIF with pins right hand PAST SURGICAL HISTORY OF 2012 filter placement for DVT PAST SURGICAL HISTORY OF percutaneous vascular procedure PAST SURGICAL HISTORY OF neck surgery REVISE MEDIAN N/CARPAL TUNNEL SURG Bilateral 2019 HISTORY SINCE LAST VISIT: Mr. Manzano had 20% rate decrease on 06/30/24. He is scheduled for twice weekly ITB pump adjustment in preparation for Surgery on 07/28 due to subcutaneous tissues exposure over pump. He cancelled SundayJuly 04 appointment due to issues tolerating most recent ITB pump adjustment. Last /Sunday felt ill felt slight withdrawal symptoms nausea, fatigue, dizziness, itching chest and arm, Irritability/agitation, reorts last night had felt irritable/agitated had to take nyquil last night which was helpful. Reports having nightsweats. Reports also stress/nervousness about his pump. Reports he increased his oral Baclofen to 40mg twice daily which was helpful. Reports since there has been hardware exposure of ITB Pump, reports its has opened a little larger over the weekend. Exercise / stretching / rehabilitation: daily stretching, morning and night. Use of oral medications for spasticity: Baclofen 40mg twice daily, Tizanidine 2mg BID Denies any fevers or chills. Patient Entered Data PROMIS No data to display Spasticity NRS 07/23/2023 04/16/2023 01/08/2023 11/15/2022 10/02/2022 -- Spasticity Level 4 Spasm Scale 1=Mild spasms induced by stimulation 1=Mild spasms induced by stimulation 1=Mild spasmsinduced by stimulation 1=Mild spasms induced by stimulation Spasm Scale - Trendable Number 1 1 1 1 Spasm Scale 11/15/2022 10/02/2022 08/31/2022 07/10/2022 06/16/2022 -- Spasm Frequency Mild spasms induced by stimulation Mild spasms induced by stimulation Mild spasms induced by stimulation Mild spasms induced by stimulation Mild spasms induced by stimulation Spasm Severity Mild Mild Mild Mild Mild Global Impression of Change 11/15/2022 10/02/2022 08/31/2022 07/10/2022 06/16/2022 -- Rehab global impression of change Much improved Minimally improved Much improved Much improved Muchimproved Pain related to the purpose of the visit: No 0 on a scale of 0 to 10 Safety concerns: domestic violence, living situation, and safety at home: No Driving issues: No - Denies any problems driving. Risk of Falls: Yes, denies recent falls. Change in bowel habits: No Change in urinary symptoms suggesting UTI: No Skin Integrity: as above. Review of Systems EXAM: Position: Sitting Strength Right Left Shoulder abduction 5 5 Elbow flexion 5 5 Elbow extension 5 5 Wrist extension 5 5 Hip flexion 2+ 2 Knee flexion 4 4 Knee extension 3 3 Plantarflexion 4 4 Dorsiflexion 3 3 Spasticity Right Left Shoulder 0 0 Elbow flexors 0 0 Elbow extensors 0 0 Wrist flexors 0 0 Wrist extensors 0 0 Finger flexors 0 0 Finger extensors 0 0 Hip adductors 0 0 Knee extensors 0. 0 Knee flexors 0 1 Plantarflexors 1 1 Modified Dannie Scale 0 - No increase in tone 1 - Slight increase in tone (catch and release at end of ROM) 1+ - Slight increase in tone, manifested by a catch, followed by minimal resistance throughout remainder (less than half of ROM) 2 - Marked increase in tone through most of the ROM, but affected part(s) easily moved 3 - Considerable increase in tone; passive movement difficult 4 - Affected part(s) rigid in flexion or extension Spasms observed: RUE: no right upper extremity spasms LUE: no left upper extremity spasms RLE: no right lower extremity spasms LLE: no left lower extremity spasms Timed 25 foot walk: N/A Assistance required: wheelchair Ambulation Index Score: 9 - Restricted to wheelchair, dependent for transfers Patient ID verified using 2 identifiers: Yes Procedure: ITB pump adjustment UNIVERSAL PROTOCOL / SAFETY CHECKLIST Procedure to be Performed: ITB pump adjustment Sign In: A Moment of CARE was completed. Personnel directly involved with the procedure wore the appropriate PPE (Personal Protective Equipment). Special equipment: Swapbox ITB pump reader Patient/Surrogate Stated/Verified: PATIENT VERIFIED(optional for EMERGENT procedures): Patient name, Date of , Relevant allergies, and The intended procedure Time Out Communication: Intended patient and procedure match the source documents. Consent documented and matches the intended procedure. Relevant labs, photos, and/or imaging studies have been reviewed. Correct side/site marked and visible. Medications required for procedure verified. No fire risk assessment and interventions applicable. No implant(s) inserted. Sign Out: SIGN OUT (optional for EMERGENT procedures): No specimen collected. Jimena Kramer PA-C The risks, benefits and alternatives of the procedure were explained. Written Consent Obtained: yes - 12/09/2018 Current Drug: Lioresal Drug Concentration: 2000 mcg/ml Current Rate: 384.8 mcg/day Current Dose schedule: Simple continuous [employer] Residual: 24.1 ml Actual Residual: - N/A Pump Refilled: No Program Change: Yes- ITB pump decreased by 20% New Drug: Lioresal Drug Concentration: 2000 mcg/ml New Rate: 308.2 mcg/day New Dose schedule: Simple continuous Bolus Given: No Estimated ZEB: 47 months (APR 2028) Mehan alarm date: 11/28/2024 Final telemetry read and agrees with planned programming: Yes ASSESSMENT: SCI with severe spasticity. Reports area of hardware exposure since , has gotten larger since. Reports clear fluid drainage from opening. No Warmth or Erythema near wound. Patienthas dressing over wound. Denies fevers/chills. Endorses night sweats. He cancelled appointment lastFriday due to difficulty tolerating previous rate decrease. Reports symptoms of Baclofen withdrawalimproved with increasing oral Baclofen to 40mg BID. I discussed with patient our official recommendation is direct admission due to hardware exposure/concern for infection and difficulty tolerating recent rate decreases. Patient declined admission today. He is scheduled for pre-op visits with neuros urgery tomorrow, he was agreeable with this evaluation. Will get further recommendation from neurosurgery tomorrow. Patient requested ITB rate decrease of 25% today, We decreased ITB rate by 20% after discussed withDr. Shelby. Advised he may increase oral Baclofen up to 40mg TID if needed. PLAN: 1. Baclofen 40mg up to three times per day. 2. ITB pump was decreased by 20% today 3. Neurosurgery Pre-Op and Evaluation tomorrow, Keep Clean Dressing over Wound 4. Discussed should symptoms worsen in the interim to present to [facility] ER Case was discussed with Ceferino Jones PA-C and Dr. Jamey Shelby who agreed with plan above. Dr. Napier also notified. Jimena Kramer PA-C documented in this encounterA[facility] Telephone encounter Note* Telephone Encounter - Shanika Vidales RN - 07/04/2024 9:27 AM EST SPECIALTY CARE COORDINATION QUICK NOTE Called patient Patient identified by name and date of : Yes Calling for FU since cancelled ITB adj today He states the ITB rate decreases are kicking my ass He states he is not feeling well to come to appointment today; was up all night, not sleeping, spasticity increased with rate decreases He states he is trying to adjust to this Reviewed he was scheduled today for preop appointments also He will contact neurosurgery to have them rescheduled He confirms he is taking Baclofen 40 mg twice a day; Denise is letting him adjust dose as needed Was told max dose is 120 mg/day He confirms he takes Tizanidine 2 mg twice a day and does not want to make adjustments to this Reviewed options for appts Currently scheduled for ITB removal on 08/07/24 Agreed on 07/08 appointment at 9am with Mary Kramer; slot put on hold, page sent to add on Recommend contact by mychart or phone if needs to discuss oral medication changes before this appointment Will schedule additional appts when seen; needs ITB rate decreased before surgery date he verbalized understanding and agrees with plan No further concerns [facility] Work Phone: [phone] Miscellaneous Notes* Telephone Encounter - Shanika Vidales RN - 07/04/2024 9:27 AM EST SPECIALTY CARE COORDINATION QUICK NOTE Called patient Patient identified by name and date of : Yes Calling for FU since cancelled ITB adj today He states the ITB rate decreases are kicking my ass He states he is not feeling well to come to appointment today; was up all night, not sleeping, spasticity increased with rate decreases He states he is trying to adjust to this Reviewed he was scheduled today for preop appointments also He will contact neurosurgery to have them rescheduled He confirms he is taking Baclofen 40 mg twice a day; Denise is letting him adjust dose as needed Was told max dose is 120 mg/day He confirms he takes Tizanidine 2 mg twice a day and does not want to make adjustments to this Reviewed options for appts Currently scheduled for ITB removal on 08/07/24 Agreed on 07/08 appointment at 9am with Mary Kramer; slot put on hold, page sent to add on Recommend contact by mychart or phone if needs to discuss oral medication changes before this appointment Will schedule additional appts when seen; needs ITB rate decreased before surgery date he verbalized understanding and agrees with plan No further concerns documented in this encounterA[facility]01-13-[facility] Note[facility] History of Present illness Narrative* Daysi Roque PA-C - 06/30/2024 10:42 AM EST Images from the original note were not included. INTRATHECAL BACLOFEN THERAPY MANAGEMENT VISIT Patient accompanied by Self PAST SURGICAL HISTORY Procedure Laterality Date IMPLTJ/RPLCMT ITHCL/EDRL DRUG NFS PRGRBL PUMP 03/02/2015 SynchroMed II, 40 ml pump with catheter tip at T9 - Informed consent sigend on 03/03/15 (paper form) IMPLTJ/RPLCMT ITHCL/EDRL DRUG NFS PRGRBL PUMP 10/13/2016 Revision of ITB catheter due to malfunction PAST SURGICAL HISTORY OF 11/09/2012 laminectomy T-4-T-12 PAST SURGICAL HISTORY OF 2002 ORIF with pins right hand PAST SURGICAL HISTORY OF 2012 filter placement for DVT PAST SURGICAL HISTORY OF percutaneous vascular procedure PAST SURGICAL HISTORY OF neck surgery REVISE MEDIAN N/CARPAL TUNNEL SURG Bilateral 2020 HISTORY SINCE LAST VISIT: He notices more clonus in the legs. He increased his baclofen this morning to 30mg and will continue the 30mg at night. A few hours after the previous rate decrease, he noticed nausea and sweating that lasted several hours. It improved, and he feels back to his baseline. Patient Entered Data Ingeniatrics No data to display Spasticity NRS 07/23/2023 04/16/2023 01/08/2023 11/15/2022 10/02/2022 -- Spasticity Level 4 Spasm Scale 1=Mild spasms induced by stimulation 1=Mild spasms induced by stimulation 1=Mild spasmsinduced by stimulation 1=Mild spasms induced by stimulation Spasm Scale - Trendable Number 1 1 1 1 Spasm Scale 11/15/2022 10/02/2022 08/31/2022 07/10/2022 06/16/2022 -- Spasm Frequency Mild spasms induced by stimulation Mild spasms induced by stimulation Mild spasms induced by stimulation Mild spasms induced by stimulation Mild spasms induced by stimulation Spasm Severity Mild Mild Mild Mild Mild Global Impression of Change 11/15/2022 10/02/2022 08/31/2022 07/10/2022 06/16/2022 -- Rehab global impression of change Much improved Minimally improved Much improved Much improved Muchimproved Pain related to the purpose of the visit: No 0 on a scale of 0 to 10 Safety concerns: domestic violence, living situation, and safety at home: No Driving issues: No - Risk of Falls: No, Change in bowel habits: No Change in urinary symptoms suggesting UTI: No Skin Integrity: no pump exposure. Open skin over pump is covered with a bandage Review of Systems EXAM: Position: Sitting Strength Right Left Shoulder abduction 5 5 Elbow flexion 5 5 Elbow extension 5 5 Wrist extension 5 5 Hip flexion 2+ 2 Knee flexion 4 4 Knee extension 3 3 Plantarflexion 4 4 Dorsiflexion 3 3 Spasticity Right Left Shoulder 0 0 Elbow flexors 0 0 Elbow extensors 0 0 Wrist flexors 0 0 Wrist extensors 0 0 Finger flexors 0 0 Finger extensors 0 0 Hip adductors 0 0 Knee extensors 0. 0 Knee flexors 0 1 Plantarflexors 1 0 Modified Dannie Scale 0 - No increase in tone 1 - Slight increase in tone (catch and release at end of ROM) 1+ - Slight increase in tone, manifested by a catch, followed by minimal resistance throughout remainder (less than half of ROM) 2 - Marked increase in tone through most of the ROM, but affected part(s) easily moved 3 - Considerable increase in tone; passive movement difficult 4 - Affected part(s) rigid in flexion or extension Spasms observed: RUE: no right upper extremity spasms LUE: no left upper extremity spasms RLE: no right lower extremity spasms LLE: no left lower extremity spasms Timed 25 foot walk: N/A Assistance required: wheelchair Ambulation Index Score: 9 - Restricted to wheelchair, dependent for transfers Patient ID verified using 2 identifiers: Yes Procedure: ITB pump adjustment UNIVERSAL PROTOCOL / SAFETY CHECKLIST Procedure to be Performed: pump rate adjustment Sign In: A Moment of CARE was completed. Personnel directly involved with the procedure wore the appropriate PPE (Personal Protective Equipment). Patient/Surrogate Stated/Verified: PATIENT VERIFIED(optional for EMERGENT procedures): Patient name, Date of , Relevant allergies, and The intended procedure Time Out Communication: Intended patient and procedure match the source documents. Consent documented and matches the intended procedure. Sign Out: SIGN OUT (optional for EMERGENT procedures): No specimen collected. Daysi Roque PA-C The risks, benefits and alternatives of the procedure were explained. Written Consent Obtained: yes - 12/09/2018 Current Drug: Lioresal Drug Concentration: 2000 mcg/ml Current Rate: 485.1 mcg/day Current Dose schedule: Simple continuous [employer] Residual: 25.6 ml Actual Residual: - N/A Pump Refilled: No Program Change: No New Drug: Lioresal Drug Concentration: 2000 mcg/ml New Rate: 384.8 mcg/day New Dose schedule: Simple continuous Bolus Given: No Estimated ZEB: 47 months (APR 2028) Mehan alarm date: 10/30/2024 Final telemetry read and agrees with planned programming: Yes ASSESSMENT: SCI with severe spasticity. We continue to wean ITB rate in an effort to either replaceor explant the pump due to impending hardware exposure. He tolerated the previous rate decrease moderately well but did experience symptoms of mild withdrawal temporarily. He agreed to decrease the pump rate by 20% today. No pump refill was needed. PLAN: 1. ITB rate decreased by 20% 2. No pump refill today Alarm date 10/30/2024; return on Tuesday 07/04 for adjustment at [facility]; then cancel 07/08 at [facility]. Add to Denise's schedule on 07/07 at 10:30 Mya Roque PA-C documented in this encounterAdena [facility]01-09-2025 NoteWilson [facility]01-09-2025 History of Present illness Narrative* Daysi Roque PA-C - 06/26/2024 9:01 AM EST Images from the original note were not included. INTRATHECAL BACLOFEN THERAPY MANAGEMENT VISIT Patient accompanied by Self PAST SURGICAL HISTORY Procedure Laterality Date IMPLTJ/RPLCMT ITHCL/EDRL DRUG NFS PRGRBL PUMP 03/02/2015 SynchroMed II, 40 ml pump with catheter tip at T9 - Informed consent sigend on 03/03/15 (paper form) IMPLTJ/RPLCMT ITHCL/EDRL DRUG NFS PRGRBL PUMP 10/13/2016 Revision of ITB catheter due to malfunction PAST SURGICAL HISTORY OF 11/09/2012 laminectomy T-4-T-12 PAST SURGICAL HISTORY OF 2002 ORIF with pins right hand PAST SURGICAL HISTORY OF 2012 filter placement for DVT PAST SURGICAL HISTORY OF percutaneous vascular procedure PAST SURGICAL HISTORY OF neck surgery REVISE MEDIAN N/CARPAL TUNNEL SURG Bilateral 2020 HISTORY SINCE LAST VISIT: He's been doing well after a 15% rate decrease three days ago. He's noticed more clonus at night and increased baclofen to 30mg at bedtime. He takes 20mg during the day. He denies symptoms of baclofen withdrawal. Patient Entered Data PROMIS No data to display Spasticity NRS 07/23/2023 04/16/2023 01/08/2023 11/15/2022 10/02/2022 -- Spasticity Level 4 Spasm Scale 1=Mild spasms induced by stimulation 1=Mild spasms induced by stimulation 1=Mild spasmsinduced by stimulation 1=Mild spasms induced by stimulation Spasm Scale - Trendable Number 1 1 1 1 Spasm Scale 11/15/2022 10/02/2022 08/31/2022 07/10/2022 06/16/2022 -- Spasm Frequency Mild spasms induced by stimulation Mild spasms induced by stimulation Mild spasms induced by stimulation Mild spasms induced by stimulation Mild spasms induced by stimulation Spasm Severity Mild Mild Mild Mild Mild Global Impression of Change 11/15/2022 10/02/2022 08/31/2022 07/10/2022 06/16/2022 -- Rehab global impression of change Much improved Minimally improved Much improved Much improved Muchimproved Pain related to the purpose of the visit: No 0 on a scale of 0 to 10 Safety concerns: domestic violence, living situation, and safety at home: No Driving issues: No - Risk of Falls: No, Change in bowel habits: No Change in urinary symptoms suggesting UTI: No Skin Integrity: no change in wound over pump Review of Systems EXAM: Position: Sitting Strength Right Left Shoulder abduction 5 5 Elbow flexion 5 5 Elbow extension 5 5 Wrist extension 5 5 Hip flexion 2+ 2 Knee flexion 4 4 Knee extension 3 3 Plantarflexion 4 4 Dorsiflexion 3 3 Spasticity Right Left Shoulder 0 0 Elbow flexors 0 0 Elbow extensors 0 0 Wrist flexors 0 0 Wrist extensors 0 0 Finger flexors 0 0 Finger extensors 0 0 Hip adductors 0 0 Knee extensors 0. 0 Knee flexors 0 0 Plantarflexors 1 1 Modified Dannie Scale 0 - No increase in tone 1 - Slight increase in tone (catch and release at end of ROM) 1+ - Slight increase in tone, manifested by a catch, followed by minimal resistance throughout remainder (less than half of ROM) 2 - Marked increase in tone through most of the ROM, but affected part(s) easily moved 3 - Considerable increase in tone; passive movement difficult 4 - Affected part(s) rigid in flexion or extension + Clonus in the ankle that was sustained. Spasms observed: RUE: no right upper extremity spasms LUE: no left upper extremity spasms RLE: no right lower extremity spasms LLE: no left lower extremity spasms Timed 25 foot walk: N/A Assistance required: wheelchair Ambulation Index Score: 9 - Restricted to wheelchair, dependent for transfers Patient ID verified using 2 identifiers: Yes Procedure: ITB pump adjustment UNIVERSAL PROTOCOL / SAFETY CHECKLIST Procedure to be Performed: pump rate adjustment Sign In: A Moment of CARE was completed. Personnel directly involved with the procedure wore the appropriate PPE (Personal Protective Equipment). Patient/Surrogate Stated/Verified: PATIENT VERIFIED(optional for EMERGENT procedures): Patient name, Date of , Relevant allergies, and The intended procedure Time Out Communication: Intended patient and procedure match the source documents. Consent documented and matches the intended procedure. Relevant labs, photos, and/or imaging studies have been reviewed. Correct side/site marked and visible. Medications required for procedure verified. Fire risk assessed and interventions discussed. No implant(s) inserted. Sign Out: SIGN OUT (optional for EMERGENT procedures): No specimen collected. Daysi Roque PA-C The risks, benefits and alternatives of the procedure were explained. Written Consent Obtained: yes - 12/09/2018 Current Drug: Lioresal Drug Concentration: 2000 mcg/ml Current Rate: 606.3 mcg/day Current Dose schedule: Simple continuous [employer] Residual: 26.6 ml Actual Residual: - N/A Pump Refilled: Yes Program Change: No New Drug: Lioresal Drug Concentration: 2000 mcg/ml New Rate: 485.1 mcg/day New Dose schedule: Simple continuous Bolus Given: No Estimated ZEB: months (APR 2028) Final telemetry read and agrees with planned programming: Yes ASSESSMENT: SCI with severe spasticity. Very little spasticity noted on exam, unchanged compared toearlier this week. He agrees to decrease the pump rate by 20% today. Surgery is tentatively scheduled for 07/28. Will continue rate decreases as tolerated. He remains interested in pump explant if hisspasticity remains well controlled off ITB therapy. We'd prefer a period of time, at a least a week, at minimum rate before he decides. No pump refill was needed. He can increase oral baclofen to 20/20/30 if needed. PLAN: 1. No pump refill needed 2. Pump rate decreased by 20% Cancel 07/01 appt with Jimena. Add to Denise's schedule on 06/30 at 10:30 at [facility] Daysi Roque PA-C documented in this encounterAden[facility]01-08-2025 Telephone encounter Note * Telephone Encounter - Ceferino Jones PA-C - 06/25/2024 9:56 AM EST Spoke with pt, he is in agreement with setting up ITB revision/removal for 07/28/24 and pre-ops 07/09/24. He states he is tolerating the dose reduction fairly well. He feels that the wound is improvingand reports clear drainage intermittently. Ceferino Jones PA-C [facility]01-08-2025 Miscellaneous Notes* Telephone Encounter - Ceferino Jones PA-C - 06/25/2024 9:56 AM EST Spoke with pt, he is in agreement with setting up ITB revision/removal for 07/28/24 and pre-ops 07/09/24. He states he is tolerating the dose reduction fairly well. He feels that the wound is improvingand reports clear drainage intermittently. Ceferino Jones PA-C * Telephone Encounter - Ceferino Jones PA-C - 06/25/2024 9:41 AM EST Attempted to contact pt regarding setting up baclofen pump revision/removal surgery. Left voicemailrequesting a call back. documented in this encounterAdena [facility]01-08-2025 Telephone encounter Note * Telephone Encounter - Ceferino Jones PA-C - 06/25/2024 9:41 AM EST Attempted to contact pt regarding setting up baclofen pump revision/removal surgery. Left voicemailrequesting a call back. [facility]01-06-2025 NoteWilson [facility]01-06-2025 History of Present illness Narrative* Daysi Roque PA-C - 06/23/2024 1:31 PM EST Images from the original note were not included. INTRATHECAL BACLOFEN THERAPY MANAGEMENT VISIT Patient accompanied by Self PAST SURGICAL HISTORY Procedure Laterality Date IMPLTJ/RPLCMT ITHCL/EDRL DRUG NFS PRGRBL PUMP 03/02/2015 SynchroMed II, 40 ml pump with catheter tip at T9 - Informed consent sigend on 03/03/15 (paper form) IMPLTJ/RPLCMT ITHCL/EDRL DRUG NFS PRGRBL PUMP 10/13/2016 Revision of ITB catheter due to malfunction PAST SURGICAL HISTORY OF 11/09/2012 laminectomy T-4-T-12 PAST SURGICAL HISTORY OF 2002 ORIF with pins right hand PAST SURGICAL HISTORY OF 2012 filter placement for DVT PAST SURGICAL HISTORY OF percutaneous vascular procedure PAST SURGICAL HISTORY OF neck surgery REVISE MEDIAN N/CARPAL TUNNEL SURG Bilateral 2020 HISTORY SINCE LAST VISIT: Mr. Mateus Manzano was seen on 06/16/24 by neurosurgery for concerns of small opening over pump with subcutaneous tissues exposure without pump hardware exposure. He was givendoxycycline 100mg BID and it was determined he will be scheduled for surgical exploration/revision/removal of pump hardware. His pump rate was most recently decreased by 15% 3 days ago. He was supposed to increase oral baclofen to 30mg bid, however, he was mistaken and was only [id number] bid. So he did increase to 20mg bid in the last couple of days. He's feeling pretty well. He feels tired more easily. Feels tighter at night and in the morning. Use of oral medications for spasticity: baclofen 20mg bid Patient Entered Data PROMIS No data to display Spasticity NRS 07/23/2023 04/16/2023 01/08/2023 11/15/2022 10/02/2022 -- Spasticity Level 4 Spasm Scale 1=Mild spasms induced by stimulation 1=Mild spasms induced by stimulation 1=Mild spasmsinduced by stimulation 1=Mild spasms induced by stimulation Spasm Scale - Trendable Number 1 1 1 1 Spasm Scale 11/15/2022 10/02/2022 08/31/2022 07/10/2022 06/16/2022 -- Spasm Frequency Mild spasms induced by stimulation Mild spasms induced by stimulation Mild spasms induced by stimulation Mild spasms induced by stimulation Mild spasms induced by stimulation Spasm Severity Mild Mild Mild Mild Mild Global Impression of Change 11/15/2022 10/02/2022 08/31/2022 07/10/2022 06/16/2022 -- Rehab global impression of change Much improved Minimally improved Much improved Much improved Muchimproved Pain related to the purpose of the visit: No 0 on a scale of 0 to 10 Safety concerns: domestic violence, living situation, and safety at home: No Driving issues: No - Risk of Falls: No, Change in bowel habits: No Change in urinary symptoms suggesting UTI: No Review of Systems EXAM: Position: Sitting Strength Right Left Shoulder abduction 5 5 Elbow flexion 5 5 Elbow extension 5 5 Wrist extension 5 5 Hip flexion 2+ 2 Knee flexion 4 4 Knee extension 3 3 Plantarflexion 4 4 Dorsiflexion 3 3 Spasticity Right Left Shoulder 0 0 Elbow flexors 0 0 Elbow extensors 0 0 Wrist flexors 0 0 Wrist extensors 0 0 Finger flexors 0 0 Finger extensors 0 0 Hip adductors 0 0 Knee extensors 0. 0 Knee flexors 0 0 Plantarflexors 1 1 Modified Dannie Scale 0 - No increase in tone 1 - Slight increase in tone (catch and release at end of ROM) 1+ - Slight increase in tone, manifested by a catch, followed by minimal resistance throughout remainder (less than half of ROM) 2 - Marked increase in tone through most of the ROM, but affected part(s) easily moved 3 - Considerable increase in tone; passive movement difficult 4 - Affected part(s) rigid in flexion or extension + Clonus in the ankle that was sustained. Spasms observed: RUE: no right upper extremity spasms LUE: no left upper extremity spasms RLE: no right lower extremity spasms LLE: no left lower extremity spasms Timed 25 foot walk: N/A Assistance required: wheelchair Ambulation Index Score: 9 - Restricted to wheelchair, dependent for transfers Patient ID verified using 2 identifiers: Yes Procedure: ITB pump adjustment UNIVERSAL PROTOCOL / SAFETY CHECKLIST Procedure to be Performed: pump rate decrease Sign In: A Moment of CARE was completed. Personnel directly involved with the procedure wore the appropriate PPE (Personal Protective Equipment). Patient/Surrogate Stated/Verified: PATIENT VERIFIED(optional for EMERGENT procedures): Patient name, Date of , Relevant allergies, and The intended procedure Time Out Communication: Intended patient and procedure match the source documents. Consent documented and matches the intended procedure. Sign Out: SIGN OUT (optional for EMERGENT procedures): No specimen collected. Daysi Roque PA-C The risks, benefits and alternatives of the procedure were explained. Written Consent Obtained: yes - 12/09/2018 Current Drug: Lioresal Drug Concentration: 2000 mcg/ml Current Rate: 714.4 mcg/day Current Dose schedule: Simple continuous [employer] Residual: 27.4 ml Actual Residual: - N/A Pump Refilled: Yes Program Change: No New Drug: Lioresal Drug Concentration: 2000 mcg/ml New Rate: 606.3 mcg/day New Dose schedule: Simple continuous Bolus Given: No Estimated ZEB: months (APR 2028) Final telemetry read and agrees with planned programming: Yes ASSESSMENT: SCI with severe spasticity. Recently found to have subQ tissue exposure over the pump (no hardware exposure), concerning for infection. Exploratory surgery with possible repositioning or hardware removal is warranted. He has tolerated two pump rate decreases without much increase in spasticity. He did increase his baclofen to 20mg bid. There is very little spasticity noted on exdam today. He agreed to decrease the rate another 15% today. I plan to see him later in the week for another rate decrease. He can increase baclofen to 30mg bid if needed. He's considering discontinuing ITB therapy indefinitely. We will continue to discuss as we decreasehis pump rate. PLAN: 1. Pump rate decreased by 15% 2. No pump refill today 3. Okay to increase baclofen to 30mg bid if needed. Follow up with me later this week for additional rate adjustment; alarm date 09/14/2024 Daysi Roque PA-C documented in this encounterAdena [facility]01-03-2025 Instructions* Patient Instructions* Jimena Kramer PA-C - 06/20/2024 1:20 PM EST Baclofen Pump decreased by 15% today Current rate is 714.4mcg Sunday06/23/23 at [facility] with Denise Roque PA-C at 3:15 for ITB rate adjustment 06/26/23 at [facility] with Denise Roque PA-c at 9:00 am for ITB rate adjustment Sunday07/01/23 at [facility] with Jimena Kramer PA-C at 2:30 for ITB rate adjustment Sunday07/04/23 at [facility] with Jimena Kramer PA-C at 10:15 for ITB rate adjustment Sunday07/08/23 at [facility] with Jimena Kramer PA-C at 2:00pm for ITB rate adjustment 07/10/23 at [facility] with Denise Roque PA-C at 11:15 for ITB rate adjustment documented in this encounterAdena [facility]01-03-2025 History of Present illness Narrative* Jimena Kramer PA-C - 06/20/2024 1:00 PM EST Images from the original note were not included. INTRATHECAL BACLOFEN THERAPY MANAGEMENT VISIT Patient accompanied by self, stayed in car PAST SURGICAL HISTORY Procedure Laterality Date IMPLTJ/RPLCMT ITHCL/EDRL DRUG NFS PRGRBL PUMP 03/02/2015 SynchroMed II, 40 ml pump with catheter tip at T9 - Informed consent sigend on 03/03/15 (paper form) IMPLTJ/RPLCMT ITHCL/EDRL DRUG NFS PRGRBL PUMP 10/13/2016 Revision of ITB catheter due to malfunction PAST SURGICAL HISTORY OF 11/09/2012 laminectomy T-4-T-12 PAST SURGICAL HISTORY OF 2002 ORIF with pins right hand PAST SURGICAL HISTORY OF 2012 filter placement for DVT PAST SURGICAL HISTORY OF percutaneous vascular procedure PAST SURGICAL HISTORY OF neck surgery REVISE MEDIAN N/CARPAL TUNNEL SURG Bilateral 2019 HISTORY SINCE LAST VISIT: Mr. Mateus Manzano was seen on 06/16/24 by neurosurgery for concerns of small opening over pump with subcutaneous tissues exposure without pump hardware exposure. He was givendoxycycline 100mg BID and it was determined he will be scheduled for surgical exploration/revision/removal of pump hardware. His ITB rate was decreased by 10% on Sunday. Today he reports there has been increase in spasms in the morning and at night but overall felt dose reduction was well tolerated. He has noticed improved strength with rate decrease. The area over the pump is currently bandaged but he reports the opened area over pump looks improved and is developing a scab, he denies pain, redness, or purulent drainage from the area. No hardwareexposure. Reports 40 mins of stomach upset after taking Doxycycline but is tolerable. Having increased anxiety. He is unsure if he will want to continue ITB therapy in the future. Exercise / stretching / rehabilitation: daily stretching exercises. Use of oral medications for spasticity: Taking Baclofen 20mg Twice daily, Tizanidine 2mg Twice daily- is well tolerated Patient Entered Data PROMIS No data to display Spasticity NRS 07/23/2023 04/16/2023 01/08/2023 11/15/2022 10/02/2022 -- Spasticity Level 4 Spasm Scale 1=Mild spasms induced by stimulation 1=Mild spasms induced by stimulation 1=Mild spasmsinduced by stimulation 1=Mild spasms induced by stimulation Spasm Scale - Trendable Number 1 1 1 1 Spasm Scale 11/15/2022 10/02/2022 08/31/2022 07/10/2022 06/16/2022 -- Spasm Frequency Mild spasms induced by stimulation Mild spasms induced by stimulation Mild spasms induced by stimulation Mild spasms induced by stimulation Mild spasms induced by stimulation Spasm Severity Mild Mild Mild Mild Mild Global Impression of Change 11/15/2022 10/02/2022 08/31/2022 07/10/2022 06/16/2022 -- Rehab global impression of change Much improved Minimally improved Much improved Much improved Muchimproved Pain related to the purpose of the visit: Yes LOCATION: above hips and lower back, is 90% of his pain, is late for RFA procedure, aches and pains in joints and shoulder PAIN SCALE: 4 on a scale of 0-10 PAIN CHARACTER: aching, burning, and stabbing FREQUENCY: (How often does the pain occur?) occurs intermittently Safety concerns: domestic violence, living situation, and safety at home: No Driving issues: No Risk of Falls: Yes, denies any recent falls. Change in bowel habits: No Change in urinary symptoms suggesting UTI: 3-4 weeks ago had UTI, none current Skin Integrity: Intact Review of Systems EXAM: Position: Sitting Strength Right Left Shoulder abduction 5 5 Elbow flexion 5 5 Elbow extension 5 5 Wrist extension 5 5 Hip flexion 2+ 2 Knee flexion 4 4 Knee extension 3 3 Plantarflexion 4 4 Dorsiflexion 3 3 Spasticity Right Left Shoulder 0 0 Elbow flexors 0 0 Elbow extensors 0 0 Wrist flexors 0 0 Wrist extensors 0 0 Finger flexors 0 0 Finger extensors 0 0 Hip adductors 1 1 Knee extensors 0. 0 Knee flexors 0 0 Plantarflexors 1+ 1 Modified Dannie Scale 0 - No increase in tone 1 - Slight increase in tone (catch and release at end of ROM) 1+ - Slight increase in tone, manifested by a catch, followed by minimal resistance throughout remainder (less than half of ROM) 2 - Marked increase in tone through most of the ROM, but affected part(s) easily moved 3 - Considerable increase in tone; passive movement difficult 4 - Affected part(s) rigid in flexion or extension + Clonus in the ankle that was sustained. Spasms observed: RUE: no right upper extremity spasms LUE: no left upper extremity spasms RLE: right lower extremity spasms ankle clonus LLE: no left lower extremity spasms ankle clonus Timed 25 foot walk: N/A Assistance required: wheelchair Ambulation Index Score: 9 - Restricted to wheelchair, dependent for transfers Patient ID verified using 2 identifiers: Yes Procedure: ITB pump adjustment UNIVERSAL PROTOCOL / SAFETY CHECKLIST Procedure to be Performed: ITB pump adjustment Sign In: A Moment of CARE was completed. Personnel directly involved with the procedure wore the appropriate PPE (Personal Protective Equipment). Special equipment: Swapbox ITB pump reader Patient/Surrogate Stated/Verified: PATIENT VERIFIED(optional for EMERGENT procedures): Patient name, Date of , Relevant allergies, and The intended procedure Time Out Communication: Intended patient and procedure match the source documents. Consent documented and matches the intended procedure. Relevant labs, photos, and/or imaging studies have been reviewed. Correct side/site marked and visible. Medications required for procedure verified. No fire risk assessment and interventions applicable. No implant(s) inserted. Sign Out: SIGN OUT (optional for EMERGENT procedures): No specimen collected. Jimena Kramer PA-C The risks, benefits and alternatives of the procedure were explained. 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 Spasticity on exam stable. Patient states spasticity is worse in the mornings and evenings. He tolerated most recent ITB rate reduction of 10% on 06/16/24 well. We agreed to decreased ITB rate by 15% today. We scheduled ITB rate reduction appointments twice weekly over the next 6 weeks in preparation for ITB pump surgical exploration/revision/removal due toarea of exposure of subcutaneous tissue without hardware exposure. Patient has area bandaged but reports area has started to scab over and minimize in size. Denies any pain, erythema or purulent drainage near site. Denies fevers/chills. We agreed to increase oral baclofen to 30mg in the morning [id number] in the evening to help with increased spasms. Discussed Continuing Tizanidine 2mg twice daily. He reports him and his have discussed coming off of ITB therapy completely if this process is tolerated. Discussed if condition worsens to present to [facility] ER. PLAN: 1. ITB pump was not refilled. 2. ITB rate decreased by 15% today 3. Baclofen 30mg BID, Tizanidine 2mg BID 4. Note copied to Dr. Napier, Dr. Shelby, Ceferino Jones PA-C, Daysi Roque PAC Case and Plan was discussed with Dr. Shelby Sunday06/23/23 at [facility] with Denise Roque PA-C at 3:15 for ITB rate adjustment 06/26/23 at [facility] with Denise Roque PA-c at 9:00 am for ITB rate adjustment Sunday07/01/23 at [place] with Jimena Kramer PA-C at 2:30 for ITB rate adjustment Sunday07/04/23 at [place] with Jimena Kramer PA-C at 10:15 for ITB rate adjustment Sunday07/08/23 at [place] with Jiemna Kramer PA-C at 2:00pm for ITB rate adjustment 07/10/23 at [facility] with Denise Roque PA-C at 11:15 for ITB rate adjustment New Alarm Date 09/02/2024 Next refill on 08/07/2024 with Denise Kramer PA-C documented in this encounterA[facility]01[facility]25 Telephone encounter Note* Telephone Encounter - Marlyn PhelpsRHEA - 06/20/2024 10:03 AM EST Patient MyChart message requesting the following refill Refill(s) Requested: Requested Prescriptions Pending Prescriptions Disp Refills hydrOXYzine pamoate (VISTARIL) 25 mg capsule 30 capsule 1 Sig: Take 1 capsule by mouth three times a day as needed for itching/rash or anxiety. ALLERGIES Allergen Reactions Piperacillin-Tazoba* Hives Patient states he can tolerate penicillin and amoxicillin and has tolerated since the Zosyn reaction. There are no Epic administrations of penicillins. Patient states he has tolerated oral cephalosporins in the past. There are outpatient prescription records for cephalexin listed in Epic. Zosyn [Piperacillin* Hives Hydrocodone-Acetami* Other: See Comments headaches Codeine Intolerance, Other: See Comments nightmares (home) [phone] (cell) Last Office Visit Date: 05/13/2024 Last Distance Health Visit: Visit date not found Future Appointment: 09/30/2024 The patients preferred pharmacy has been captured for this encounter? yes Request is for script(s) to be escript to pharmacy. Marlyn Phelps LPN [facility]01-03-2025 Miscellaneous Notes* Telephone Encounter - Marlyn Phelps LPN - 06/20/2024 10:03 AM EST Patient Kogetohart message requesting the following refill Refill(s) Requested: Requested Prescriptions Pending Prescriptions Disp Refills hydrOXYzine pamoate (VISTARIL) 25 mg capsule 30 capsule 1 Sig: Take 1 capsule by mouth three times a day as needed for itching/rash or anxiety. ALLERGIES Allergen Reactions Piperacillin-Tazoba* Hives Patient states he can tolerate penicillin and amoxicillin and has tolerated since the Zosyn reaction. There are no Epic administrations of penicillins. Patient states he has tolerated oral cephalosporins in the past. There are outpatient prescription records for cephalexin listed in Epic. Zosyn [Piperacillin* Hives Hydrocodone-Acetami* Other: See Comments headaches Codeine Intolerance, Other: See Comments nightmares (home) [phone] (cell) Last Office Visit Date: 05/13/2024 Last Distance Health Visit: Visit date not found Future Appointment: 09/30/2024 The patients preferred pharmacy has been captured for this encounter? yes Request is for script(s) to be escript to pharmacy. Marlyn Phelps LPN documented in this encounterAdena [facility]12-31-2024 Telephone encounter Note * Telephone Encounter - Shanika Vidales RN - 06/17/2024 12:21 PM EST SPECIALTY CARE COORDINATION QUICK NOTE Patient returning call Patient identified by name and date of : Yes Reviewed plan to decrease ITB rate again thurs/fri Dates/times given Agreed on 06/20/24 appointment at 1pm with Mary Kramer ; slot put on hold, page sent to add on he verbalized understanding and agrees with plan No further concerns [facility] Work Phone: [phone] Miscellaneous Notes* Telephone Encounter - Shanika Vidales RN - 06/17/2024 12:21 PM EST SPECIALTY CARE COORDINATION QUICK NOTE Patient returning call Patient identified by name and date of : Yes Reviewed plan to decrease ITB rate again /sun Dates/times given Agreed on 06/20/24 appointment at 1pm with Mary Kramer ; slot put on hold, page sent to add on he verbalized understanding and agrees with plan No further concerns * Telephone Encounter - Shanika Vidales RN - 06/17/2024 11:17 AM EST Called left message to call office * Telephone Encounter - Shanika Vidales RN - 06/17/2024 11:17 AM EST ----- Message from Jamey Shelby MD sent at 06/16/2024 10:46 AM EST ----- Regarding: Infection I spoke to Ceferino Rojasmihaijanay this morning. Mateus's pump has been moving and he developed a scab aroun thepump. Looks like it is infected and needs to be removed. Mateus did not want to be admitted to taperdown his rate. Current rate is over 900 mcg/day. Ceferino is decreasing his rate 10% today. Krys, we need to see him or Sunday this week for another decrease. Plan to see him as often as we can to decrease his rate. No definitive plans for surgery but they want us to do this as fast and safeas outpatient. Thank, KM documented in this encounterAden[facility]12-31-2024 Telephone encounter Note * Telephone Encounter - Shanika Vidales RN - 06/17/2024 11:17 AM EST Called left message to call office [facility]12-31-2024 Telephone encounter Note* Telephone Encounter - Shanika Vidales RN - 06/17/2024 11:17 AM EST ----- Message from Jamey Shelby MD sent at 06/16/2024 10:46 AM EST ----- Regarding: Infection I spoke to Ceferino Jones this morning. Mateus's pump has been moving and he developed a scab aroun thepump. Looks like it is infected and needs to be removed. Mateus did not want to be admitted to taperdown his rate. Current rate is over 900 mcg/day. Ceferino is decreasing his rate 10% today. Krys, we need to see him or Sunday this week for another decrease. Plan to see him as often as we can to decrease his rate. No definitive plans for surgery but they want us to do this as fast and safeas outpatient. Thank, KM [facility]12-30-2024 [facility]12-09-2024 Telephone encounter Note* Telephone Encounter - Ceferino Jones PA-C - 05/26/2024 4:10 PM EST Spoke with pt regarding concerns with his baclofen pump site. He states he lost more weight since his last visit and the top of the pump tilts forward more than in the past. He continues to use the abdominal binder, but states he is very active and it rubs in that area and a scab will form. He denies seeing the pump hardware. Offered to see him this week, but he is going on vacation for 10 days and preferred to schedule after Yudith. Offered to start an antibiotic, but his PCP has already provided one. He will f/u 06/16/24 in the office for a wound check. Ceferino Jones PA-C [facility]12-09-2024 Miscellaneous Notes* Telephone Encounter - Ceferino Jones PA-C - 05/26/2024 4:10 PM EST Spoke with pt regarding concerns with his baclofen pump site. He states he lost more weight since his last visit and the top of the pump tilts forward more than in the past. He continues to use the abdominal binder, but states he is very active and it rubs in that area and a scab will form. He denies seeing the pump hardware. Offered to see him this week, but he is going on vacation for 10 days and preferred to schedule after . Offered to start an antibiotic, but his PCP has already provided one. He will f/u 06/16/24 in the office for a wound check. Ceferino Jones PA-C documented in this encounterAdena [facility]12-09-2024 [facility]12-09-2024 History of Present illness Narrative* Daysi Roque PA-C - 05/26/2024 1:13 PM EST Images from the original note were not included. INTRATHECAL BACLOFEN THERAPY MANAGEMENT VISIT Patient accompanied by Self PAST SURGICAL HISTORY Procedure Laterality Date IMPLTJ/RPLCMT ITHCL/EDRL DRUG NFS PRGRBL PUMP 03/02/2015 SynchroMed II, 40 ml pump with catheter tip at T9 - Informed consent sigend on 03/03/15 (paper form) IMPLTJ/RPLCMT ITHCL/EDRL DRUG NFS PRGRBL PUMP 10/13/2016 Revision of ITB catheter due to malfunction PAST SURGICAL HISTORY OF 11/09/2012 laminectomy T-4-T-12 PAST SURGICAL HISTORY OF 2002 ORIF with pins right hand PAST SURGICAL HISTORY OF 2012 filter placement for DVT PAST SURGICAL HISTORY OF percutaneous vascular procedure PAST SURGICAL HISTORY OF neck surgery REVISE MEDIAN N/CARPAL TUNNEL SURG Bilateral 2020 HISTORY SINCE LAST VISIT: He was recently in the ER for a UTI. He feels back to his baseline. Spasms have improved after resolution of infection. Patient Entered Data PROMIS No data to display Spasticity NRS 07/23/2023 04/16/2023 01/08/2023 11/15/2022 10/02/2022 -- Spasticity Level 4 Spasm Scale 1=Mild spasms induced by stimulation 1=Mild spasms induced by stimulation 1=Mild spasmsinduced by stimulation 1=Mild spasms induced by stimulation Spasm Scale - Trendable Number 1 1 1 1 Spasm Scale 11/15/2022 10/02/2022 08/31/2022 07/10/2022 06/16/2022 -- Spasm Frequency Mild spasms induced by stimulation Mild spasms induced by stimulation Mild spasms induced by stimulation Mild spasms induced by stimulation Mild spasms induced by stimulation Spasm Severity Mild Mild Mild Mild Mild Global Impression of Change 11/15/2022 10/02/2022 08/31/2022 07/10/2022 06/16/2022 -- Rehab global impression of change Much improved Minimally improved Much improved Much improved Muchimproved Pain related to the purpose of the visit: No 0 on a scale of 0 to 10 Safety concerns: domestic violence, living situation, and safety at home: No Driving issues: No - Risk of Falls: No, Change in bowel habits: No Change in urinary symptoms suggesting UTI: No Skin Integrity: Intact Review of Systems EXAM: Position: Sitting Strength Right Left Shoulder abduction 5 5 Elbow flexion 5 5 Elbow extension 5 5 Wrist extension 5 5 Hip flexion 2+ 2 Knee flexion 4 4 Knee extension 3 3 Plantarflexion 4 4 Dorsiflexion 3 3 Spasticity Right Left Shoulder 0 0 Elbow flexors 0 0 Elbow extensors 0 0 Wrist flexors 0 0 Wrist extensors 0 0 Finger flexors 0 0 Finger extensors 0 0 Hip adductors 1 1 Knee extensors 0. 0 Knee flexors 0 0 Plantarflexors 1+ 1 Modified Dannie Scale 0 - No increase in tone 1 - Slight increase in tone (catch and release at end of ROM) 1+ - Slight increase in tone, manifested by a catch, followed by minimal resistance throughout remainder (less than half of ROM) 2 - Marked increase in tone through most of the ROM, but affected part(s) easily moved 3 - Considerable increase in tone; passive movement difficult 4 - Affected part(s) rigid in flexion or extension + Clonus in the ankle that was sustained. Spasms observed: RUE: no right upper extremity spasms LUE: no left upper extremity spasms RLE: right lower extremity spasms ankle clonus LLE: no left lower extremity spasms ankle clonus Timed 25 foot walk: N/A Assistance required: wheelchair Ambulation Index Score: 9 - Restricted to wheelchair, dependent for transfers Patient ID verified using 2 identifiers: Yes Procedure: Refill ITB pump UNIVERSAL PROTOCOL / SAFETY CHECKLIST Procedure to be Performed: baclofen pump refill Sign In: A Moment of CARE was completed. Personnel directly involved with the procedure wore the appropriate PPE (Personal Protective Equipment). Patient/Surrogate Stated/Verified: PATIENT VERIFIED(optional for EMERGENT procedures): Patient name, Date of , Relevant allergies, and The intended procedure Time Out Communication: Intended patient and procedure match the source documents. Consent documented and matches the intended procedure. Relevant labs, photos, and/or imaging studies have been reviewed. Correct side/site marked and visible. Medications required for procedure verified. Fire risk assessed and interventions discussed. No implant(s) inserted. Sign Out: SIGN OUT (optional for EMERGENT procedures): No specimen collected. Daysi Roque PA-C The risks, benefits and alternatives of the procedure were explained. Written Consent Obtained: yes - 12/09/2018 Current Drug: Lioresal Drug Concentration: 2000 mcg/ml Current Rate: 935.6 mcg/day Current Dose schedule: Simple continuous [employer] Residual: 11.9 ml Pump Refilled: Yes Program Change: No New Drug: Lioresal Drug Concentration: 2000 mcg/ml New Rate: 935.6 mcg/day New Dose schedule: Simple continuous Bolus Given: No Estimated ZEB: 48 months (APR 2028) Mehan alarm date: 08/15/2024 Final telemetry read and agrees with planned programming: Yes The skin over the baclofen pump was prepped and draped under sterile conditions. The pump refill port was accessed using the needle provided in the 8566 kit. The reservoir was emptied, and refilled with 40 mL of medication as detailed below. The needle was withdrawn and a band-aid was applied over the puncture site. The pump was reprogrammed as detailed above. ASSESSMENT: SCI with severe spasticity. No change in spasticity noted on exam. He agreed to keep his pump rate the same. His pump was refilled without problems today. He has a dime-sized sore on his skin over the pump. Wearing the abdominal binder did not reduce themobility of the pump within the abdomen. I reached out to neurosurgery to ask them to see Mateus in follow up to discuss further. PLAN: 1. ITB pump refilled 2. ITB rate kept the same Refill on 08/07/2024 9am Hehr: alarm date 08/15/2024 Daysi Roque PA-C documented in this encounterAdena [facility]11-26-2024 History of Present illness Narrative* Henrietta Redding RT(R) - 05/13/2024 12:00 PM EST Radiology Service Progress Note PATIENT NAME: Mateus Manzano DATE OF SERVICE: May 13, 2024 TIME: 12:16 PM PATIENT IDENTITY VERIFICATION COMPLETED USING TWO (2) IDENTIFIERS: Name and Date of confirmedby patient verbally. FALL SCREENING: Has the patient had 2 falls in the last year or 1 fall with injury or currently using an Ambulatory Assistive Device (Walker, Cane, Wheelchair, Crutches, etc.)? No PATIENT GENDER DATA: Male PATIENT RELEVANT IMPLANT DATA REVIEWED: Yes PATIENT PRESENTS WITH AN IMPLANTABLE OR ATTACHED SENIOR NET DEVELOPER: No RADIOLOGY DEPARTMENT: General X-ray: Exam(s) Completed: Chest X-Ray PERIPHERAL IV DATA: Not applicable SIGNED BY: RT Dinorah(R) May 13, 2024 12:16 PM documented in this encounterAdena Fayette [facility] Center11-26-2024 Note[facility]11-26-2024 Note[facility]11-26-2024 History of Present illness Narrative* Anay Roque MD - 05/13/2024 11:33 AM EST Reason for Visit Patient presents with: UTI Mateus Manzano is a 38 year old male who presents here today for CPE. Health Maintenance Pneumococcal Vaccine(1 of 2 - PCV) Spirometry Depression Screening Anxiety Screening Hepatitis C Screening Hepatitis B Vaccine( - 19+ 3-dose series) Lipid Screening Covid-19 Vaccine(2022- season) Annual PCP Team Chronic Disease Visit HPI Mateus is a 38-year-old gentleman with a past medical history of spinal cord injury at T7-T12 that make him paraplegic, chronic pain syndrome which made him have secondary male hypogonadism, tobacco abuse disorder, sleep apnea, neurogenic bladder from his spinal cord injury, recurrent UTIs, factor VLeiden positivity, obesity. He was in the ED or at [facility] on 01/02/2024 and was discharged a couple days later on p.o. levofloxacin. He was admitted for pneumonia, he had SIRS positive, he was tachycardic, was febrile with a leukocytosis of 16 and he had bilateral lower lobes pneumonia. He had a fever of 105 and needed ice baths to help him sleep. He was discharged the next day on Levaquin and Medrol Dosepak. No albuterol inhaler was given. He notes today that he has been feeling very tight in his che[place] and off. He did complete the antibiotic and the prednisone taper He has lost a lot of weight recently. Does not eat as much, he goes out and spends his time outsidea lot. In the winter. 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 He is always trying to do something. For the back pain he has done some RFA, has taken morphine tizanidine and they have helped. 02/08: Was admitted in the hospital on 01/30 for septic shock at [facility] in [facility].. He required resuscitation and Levophed to keep of his blood pressure. Blood cultures were negative x 2 and lactate was 1.8, prolactin was 3.55. Urine culture was yet to come. Possible sources of infection are urine and the lungs. He was given broad-spectrum antibiotics cefepime, vancomycin, Flagyl and was discharged on Bactrim and Levaquin. MRI of the spine did not have any positive findings CT of the lower extremities showed cellulitis, his echo was with normal EF,he did require 8 L high flow nasal cannula but was able to maintain saturation on room air. He also had thrombocytopenia which was improving. He notes that care in [place] was terrible, he was not given his pain medication or baclofen through thepump. He was not given the right mattress. He was dcd on levaquin and bactrim. He is feeling good as far as the lungs are concerned. He feels very stuffy, he does have allergies. 03/28/24: he is doing well, after that, back to normal life. Able to do his instrumental activitiesof daily living, be with his children, and feels good. He has lost a little weight intentionally, he eats a lot of fish, he likes vegetables. He does do an energy drink in the morning and a sprite to settle his stomach after he takes his medication. He drinks a lot of vitamin water. If he drinks Gatorade it is a Zero. Has tried to cut down the smoking,a little less than half a pack a day. It is more so when he hurts or is irritable. He was in to see his neurologist who refilled the baclofen pump. Reviewed labs, vit d is a little on the lower side , and he has dyslipidemia 05/13/24: patient had a uti a couple days before. He was given bactrim and will take it till May 18. He is supposed to be on vacation for 10 days. And wants some bactrim for it. Patient wants some other medication for it. Since yesterday he has noticed some ronchi and more trouble with deep breaths he feels like something is constricting him. He is having yellow colored sputum on and off. No fever or chills H/o asthma, recently not used his nebulizers No problem-specific Assessment & Plan notes found for this encounter. PAST MEDICAL HISTORY Diagnosis Date Asthma 08/05/2021 Clotting disorder ([facility]) HUGH-1 DVT (deep venous thrombosis) ([facility]) 2012 ED (erectile dysfunction) Factor 5 Leiden mutation, heterozygous ([facility]) History of spinal cord injury 03/03/2015 Lower urinary tract infectious disease Methylenetetrahydrofolate reductase (MTHFR) gene mutation MRSA (methicillin resistant Staphylococcus aureus) 10/2012 spine Neurogenic bladder self straight catheterization KARAN (obstructive sleep apnea) pt never got a cpap; pt unsure if he needed one KARAN (obstructive sleep apnea) 08/05/2021 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 Recurrent UTI Sepsis ([facility]) 02/20/2021 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[facility]) PAST SURGICAL HISTORY Procedure Laterality Date IMPLTJ/RPLCMT ITHCL/EDRL DRUG NFS PRGRBL PUMP 03/02/2015 SynchroMed II, 40 ml pump with catheter tip at T9 - Informed consent sigend on 03/03/15 (paper form) IMPLTJ/RPLCMT ITHCL/EDRL DRUG NFS PRGRBL PUMP 10/13/2016 Revision of ITB catheter due to malfunction PAST SURGICAL HISTORY OF 11/09/2012 laminectomy T-4-T-12 PAST SURGICAL HISTORY OF 2002 ORIF with pins right hand PAST SURGICAL HISTORY OF 2012 filter placement for DVT PAST SURGICAL HISTORY OF percutaneous vascular procedure PAST SURGICAL HISTORY OF neck surgery REVISE MEDIAN N/CARPAL TUNNEL SURG Bilateral 2019 FAMILY HISTORY Problem Relation Age of Onset Diabetes Father other (factor v leiden) Father homozigus carries mthfr other (factor v leiden) Mother homozigus carries pie 1 Cancer Paternal Grandfather Heart disease Paternal Grandfather Cancer Paternal Grandmother leukemia Heart Paternal Grandmother Anesthesia Problems No Family History Social History Tobacco Use Smoking status: Every Day Current packs/day: 1.00 Average packs/day: 1 pack/day for 18.0 years (18.0 ttl pk-yrs) Types: Cigarettes Passive exposure: Current Smokeless tobacco: Former Types: Chew Quit date: 01/19/2005 Vaping Use Vaping status: Never Used Substance Use Topics Alcohol use: Yes Comment: rarely Drug use: No Past medical history, appointments, medications, allergies reviewed. Pertinent Lab/Diagnostic Studies are reviewed and discussed today Current Outpatient Medications: sulfamethoxazole-trimethoprim (BACTRIM DS) 800-160 mg per tablet [START ON 05/21/2024] sulfamethoxazole-trimethoprim (BACTRIM DS) 800-160 mg per tablet albuterol (PROVENTIL) 2.5 mg /3 mL (0.083 %) nebulizer solution methylPREDNISolone (MEDROL, DANGELO,) 4 mg Dose-Pack XARELTO 20 mg tablet cabergoline (DOSTINEX) 0.5 mg tablet clotrimazole (LOTRIMIN) 1 % cream diclofenac-miSOPROStol (ARTHROTEC) 50-200 mg-mcg per tablet ondansetron orally disintegrating (ZOFRAN ODT) 4 mg disintegrating tablet montelukast (SINGULAIR) 10 mg tablet fluticasone (FLONASE) 50 mcg/actuation nasal spray oxytocin osorio 50 unit (CPD) clomiPHENe (CLOMID) 50 mg tablet Tadalafil (CIALIS) 5 mg tablet sildenafil (REVATIO) 20 mg tablet diclofenac, EC, (VOLTAREN) 25 mg EC tablet hydrOXYzine pamoate (VISTARIL) 25 mg capsule morphine SR (MS CONTIN, ORAMORPH SR) 15 mg 12 hr tablet acetaminophen (TYLENOL EXTRA STRENGTH) 500 mg tablet baclofen (LIORESAL) 10 mg tablet baclofen, LIORESAL, (LIORESAL) 2,000 mcg/mL injection docusate sodium (COLACE) 100 mg capsule Pregabalin (LYRICA) 200 mg capsule tiZANidine (ZANAFLEX) 2 mg tablet lidocaine (XYLOCAINE) 5 % ointment Current Facility-Administered Medications: ondansetron (PF) 4 mg injection (ZOFRAN) midazolam (PF) 2 mg injection (VERSED) Review of Systems CONSTITUTIONAL: No fevers, chills, nightsweats, unintended weight loss HEENT: Denies frequent or severe heaches, nasal congestion/sinus symptoms, problematic allergy problems. EYES: No diplopia or blurry vision. CARDIOVASCULAR: No chest pain, dyspnea, palpitations, orthopnea, PND, ankle edema. PULM: No dyspnea, unexplained cough. GI: No dysphagia/odynophagia, problematic reflux, constipation, diarrhea, changes in stool habits, hematochezia, melena. : No new urinary complaints, including dysuria, gross hematuria or pyuria. NEURO: No new balance problems, peripheral weakness/paresthesias or numbness of concern. MUSC-SKEL: No new joint pain, swelling, or erythema. PSY: No concerns regarding depression, anxiety or panic. INTEGUMENTARY: No new skin changes (rash, new or changing mole, new growth) Physical Exam BP 128/80 Pulse 72 Resp 16 General appearance: Well appearing, alert, in no acute distress, well-hydrated, well nourished. Skin: Skin color, texture, turgor normal, no suspicious rashes or lesions Head: Normocephalic, no masses, lesions, tenderness or abnormalities Eyes: Anicteric sclera. Pupils are equally round and reactive to light. Extraocular movements are intact. Oropharynx: Lips, mucosa, and tongue normal, teeth and gums normal, oropharynx normal Neck: Supple, no adenopathy; thyroid symmetric, normal size, no bruits Back: Normal exam Lungs: Ronchi in the left lower and middle lung shrestha Heart: RRR without murmur, gallop, or rubs. No ectopy Extremities: the left lower extremity is still swollen and painful ASSESSMENT/PLAN: 1. Mild intermittent asthma with acute exacerbation - ICD9: 493.92, ICD10: J45.21 (primary diagnosis) Please use the medrol dose pack only if not better with the albuterol inhaler - ALBUTEROL SULFATE 2.5 MG/3 ML (0.083 %) SOLUTION FOR NEBULIZATION - METHYLPREDNISOLONE 4 MG TABLETS IN A DOSE PACK 2. Urinary tract infection without hematuria, site unspecified - ICD9: 599.0, ICD10: N39.0 He is prone to UTI, gave him refill for the travel. May need to be on prophylactic medication - SULFAMETHOXAZOLE 800 MG-TRIMETHOPRIM 160 MG TABLET - SULFAMETHOXAZOLE 800 MG-TRIMETHOPRIM 160 MG TABLET Anay Roque MD documented in [facility] encounterA[facility] NoteWilson [facility]10-28-2024 History of Present illness Narrative* Ju Gustafson DO - 04/14/2024 11:31 AM EDTAssociated Order(s): Large Joint Arthro/Inj: bilateral subacromial bursas; Additional Injections: Lelbow joint Post-Procedure Diagnose(s): Lateral epicondylitis of left elbow; Bilateral shoulder bursitis [facility] DEPARTMENT OF ORTHOPAEDIC SURGERY AMBULATORY OFFICE VISIT DOCUMENTATION NOTE DIAGNOSIS (M77.12) Lateral epicondylitis of left elbow (primary encounter diagnosis) (M75.51, M75.52) Bilateral shoulder bursitis ASSESSMENT AND PLAN RELEVANT SUMMARY: Ultrasound guided percutaneous tendon debridement (TenJet procedure) to the left common extensor tendon. Left elbow now more bothersome with use over the past several months - likely an acute tendinitis. Bilateral shoulder pain - feels like previous SABursitis. CONDITION: Chronic musculoskeletal condition with exacerbation. The most likely etiology of these symptoms is consistent with a diagnosis of bilateral shoulder bursitis and left common extensor tendinitis with exacerbation requiring further intervention. (4) DATA REVIEW: (Discussion of Management): In detail today we reviewed the imaging and diagnostic testing results,including the discussion of management of these results, correlated to physical exam findings and patient's personal history of the present condition. (4) MANAGEMENT: Rotator Cuff Tendinopathy: We discussed the use of various natural supplements and [id number] to help with this condition. We discussed the appropriate role and side effects of NSAID medication and the impact these medications have on inflammation. We discussed the potential for injection-based therapies and potentially the need for surgery to aid in the improvement of this condition. We discussed the importance of ongoing physical therapy and a home therapy program for this condition. Specifically, we recommended starting with isometric exercises to strengthen the shoulder withoutmovement, and progressing to arm elevations and rotations using a light dumbbell or resistance band. Elbow Tendinopathy: We discussed the use of various natural supplements and pfda-[id number]-[id number] aids to help with this condition. We discussed the appropriate role and side effects of NSAID medication and the impact these medications have on inflammation. We discussed the potential for injection-basedtherapies and potentially the need for surgery to aid in the improvement of this condition. We discussed the importance of ongoing physical therapy and a home therapy program for this condition. Specifically, we recommended strengthening the forearm muscles with wrist curls and reverse wrist curls,stretching the forearm regularly, and using a flexbar for eccentric exercises. (Decision for injection): In addition to the comprehensive evaluation, assessment and plan as outlined in this note, and as a distinct and separate element to the visit today, separate from the management interventions as outlined above, we have made the determination to proceed with an injection to aid in the management of the patient's condition. We discussed the risks, benefits, alternatives and expected outcomes of this injection in detail, and the patient agreed to proceed. We discussed that this treatment plan confers a moderate risk as injection-based procedures carry the risk of morbidity that includes, but are not limited to, infection, damage to blood vessels or nerves, and a lackof response with continued pain that will continue to decrease musculoskeletal function, impact thepatient's activities of daily living (ADLs) and their quality of life. Again, the patient voiced understanding of this and agreed to proceed with the injection. (4) Large Joint Arthro/Inj: bilateral subacromial bursas Informed Consent Consent Obtained: Written [place] Protocol A moment to CARE was completed. SIGN IN Personnel directly involved with the procedure wore the appropriate PPE. Patient/Surrogate Stated/Verified: Patient name, Date of , Relevant allergies and Intended procedure TIME OUT Intended patient and procedure match the source document(s). Consent documented and matches the intended procedure. Relevant labs, photos, and/or imaging studies have been reviewed. Correct side/site marked and visible. Medications required for procedure verified. 04/14/2024 11:36 AM The procedure site was prepped in the usual sterile fashion. Site: bilateral subacromial bursas Details:Musculoskeletal ultrasound was utilized to successfully localize placement of the injectionneedle at the appropriate site. Ultrasound images demonstrating local vasculature and demonstratinginjection of solution were saved. Medications (Right): 40 mg triamcinolone acetonide 40 mg/mL Medications (Left): 40 mg triamcinolone acetonide 40 mg/mL Anesthetics (Right): 3 mL ROPivacaine (PF) 5 mg/mL (0.5 %) Anesthetics (Left): 3 mL ROPivacaine (PF) 5 mg/mL (0.5 %) Outcome: Tolerated well, no immediate complications Post-injection instructions were reviewed with the patient and the patient voiced understanding of these instructions. Additional Injections: L elbow joint for lateral epicondylitis Informed Consent Consent Obtained: Written [place] Protocol A moment to CARE was completed. SIGN IN Personnel directly involved with the procedure wore the appropriate PPE. Patient/Surrogate Stated/Verified: Patient name, Date of , Relevant allergies and Intended procedure TIME OUT Intended patient and procedure match the source document(s). Consent documented and matches the intended procedure. Relevant labs, photos, and/or imaging studies have been reviewed. Correct side/site marked and visible. Medications required for procedure verified. 04/14/2024 11:37 AM The procedure site was prepped in the usual sterile fashion. Details:Musculoskeletal ultrasound was utilized to successfully localize placement of the injectionneedle at the appropriate site. Ultrasound images demonstrating local vasculature and demonstratinginjection of solution were saved. Medications: 40 mg triamcinolone acetonide 40 mg/mL Anesthetics: 1 mL ROPivacaine (PF) 5 mg/mL (0.5 %) Outcome: tolerated well, no immediate complications Post-injection instructions were reviewed with the patient and the patient voiced understanding of these instructions. Documentation completed by clinical network and threat support specialist, residents or fellow has been reviewed in detail.I have personally seen and examined the patient and performed the medical decision-making components. All of the patient's additional questions were answered in detail, the patient verbalized understanding and agrees with the treatment plan as discussed and outlined. Ju Gustafson DO Sports Medicine Physician Department of Orthopaedic [facility] CHIEF COMPLAINT / REASON FOR VISIT: Mateus Manzano is a 38 year old male who presents for Patient presents with: Left Shoulder - Established Patient, Follow Up, Injections: Bilateral shoulder cortisone injections Right Shoulder - Established Patient, Follow Up, Injections: Bilateral shoulder cortisone injections Left Elbow - Established Patient, Injections: Cortisone injection . PAIN EVALUATION No data found in the last 1 encounters. Most recent shoulder imaging was completed on 01/08/2022 (CT SHOULDER WO IVCON RIGHT) . He was last seen in orthopaedic clinic for his elbow/arm on 04/20/2023 with Ju Gustafson. Most recent elbow imaging was completed on 03/02/2021 (XR ELBOW SPECIAL VIEWS AP/LAT/OTHER LEFT) . The most recent elbow injection was None on file, injected on 04/20/2023 by Ju Gustafson. Last XR Shoulder - Impression Only XR SHOULDER COMP M2V RT Collected: 04/20/2016 6:07 PM (Final result) Impression: IMPRESSION: Superior positioning of scapula, which may be due to positioning. This could also be due to neuromuscular disorder with winged scapula. This needs clinical correlation. Otherwise, no acute skeletal abnormality. Senior [employer] D[employer]: [email or web address] ... Last CT Shoulder - Impression Only CT SHOULDER WO IVCON RT Exam End: 01/08/2022 9:31 AM (Final result) Impression: IMPRESSION: No acute abnormality involving the right shoulder. No periarticular soft tissue abnormality or joint effusion detected. Minor arthritic change involving the right AC joint. Incidentally noted chronic-appearing cystic change involving the transverse process of T5 on the right. Status post laminectomy at T5. ... Last US Shoulder - Impression Only US SHOULDER RT Exam End: 12/16/2021 1:09 PM (Final result) Impression: IMPRESSION: Mild subacromial subdeltoid bursitis with trace fluid and dynamic impingement. No rotator cuff tear or significant tendinosis. ... Last XR Elbow - Impression Only XR ELBOW SPECIAL VIEWS AP/LAT/OTHER LT Exam End: 03/02/2021 11:28 AM (Final result) Impression: IMPRESSION: No acute abnormality [employer] Dba: [email or web address] Transcribe Date/Time: Mar 02 2021 1:08P Dictated by : RAZA FORREST MD ... Last US Elbow - Impression Only US ELBOW LEFT Exam End: 12/16/2021 1:09 PM (Final result) Impression: IMPRESSION: MILD COMMON EXTENSOR TENDINOSIS WITHOUT TEAR OR HYPEREMIA. Senior [employer] Dba: [email or web address] Transcribe Date/Time: Dec 16 2021 2:27P... PT Visits (up to last 5) 07/23/2023 10:19 08/09/2023 09:47 09/18/2023 10:39 10/22/2023 09:39 03/03/2024 11:34 PT Visits Pain level 2 2 4 2 2 Description Aching Cramping;Sharp;Sore;Spasm;Stiffness Bloating;Cramping;Pressure Stiffness;Tightness Tightness Orthopaedic Injections (up to last 5) 03/02/2021 12:38 09/19/2021 11:13 03/27/2022 14:35 12/11/2022 15:44 04/20/2023 13:56 Orthopaedic Injection History Location elbow Medication 40 mg triamcinolone acetonide 40 mg/mL 40 mg triamcinolone acetonide 40 mg/mL 40 mg triamcinolone acetonide 40 mg/mL 40 mg triamcinolone acetonide 40 mg/mL Recent Surgeries this specialty No cases to display EXAMINATION Left Elbow Exam Tenderness The patient is experiencing tenderness in the lateral epicondyle. Range of Motion Extension: normal Flexion: normal Pronation: normal Supination: normal Muscle Strength Pronation: 5/5 Supination: 5/5 Tests Varus: negative Valgus: negative Tinel's sign (cubital tunnel): negative Other Erythema: absent Scars: absent Sensation: normal documented in this encounterA[facility]10-11-2024 Instructions* Patient Instructions* Anay Roque MD - 03/28/2024 9:09 AM EDT Vit d levels are mildly low Please take OT vit D3 2000 IU daily with food. documented in this encounterAdena [facility]10-11-2024 NoteWilson Health10-11-2024 History of Present illness Narrative* Anay Roque MD - 03/28/2024 8:43 AM EDT Reason for Visit Patient presents with: Recheck: 6 week follow up Mateus Manzano is a 38 year old male who presents here today for CPE. Health Maintenance Pneumococcal Vaccine(1 of 2 - PCV) Spirometry Depression Screening Anxiety Screening Hepatitis C Screening Hepatitis B Vaccine(1 of - 19+ 3-dose series) Lipid Screening Covid-19 Vaccine( season) Annual PCP Team Chronic Disease Visit HPI Mateus is a 38-year-old gentleman with a past medical history of spinal cord injury at T7-T12 that make him paraplegic, chronic pain syndrome which made him have secondary male hypogonadism, tobacco abuse disorder, sleep apnea, neurogenic bladder from his spinal cord injury, recurrent UTIs, factor VLeiden positivity, obesity. He was in the ED or at [facility] on 01/02/2024 and was discharged a couple days later on p.o. levofloxacin. He was admitted for pneumonia, he had SIRS positive, he was tachycardic, was febrile with a leukocytosis of 16 and he had bilateral lower lobes pneumonia. He had a fever of 105 and needed ice baths to help him sleep. He was discharged the next day on Levaquin and Medrol Dosepak. No albuterol inhaler was given. He notes today that he has been feeling very tight in his [place] and off. He did complete the antibiotic and the prednisone taper He has lost a lot of weight recently. Does not eat as much, he goes out and spends his time outsidea lot. In the winter. 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 He is always trying to do something. For the back pain he has done some RFA, has taken morphine tizanidine and they have helped. 02/08: Was admitted in the hospital on 01/30 for septic shock at [facility] in [facility].. He required resuscitation and Levophed to keep of his blood pressure. Blood cultures were negative x 2 and lactate was 1.8, prolactin was 3.55. Urine culture was yet to come. Possible sources of infection are urine and the lungs. He was given broad-spectrum antibiotics cefepime, vancomycin, Flagyl and was discharged on Bactrim and Levaquin. MRI of the spine did not have any positive findings CT of the lower extremities showed cellulitis, his echo was with normal EF,he did require 8 L high flow nasal cannula but was able to maintain saturation on room air. He also had thrombocytopenia which was improving. He notes that care in [place] was terrible, he was not given his pain medication or baclofen through thepump. He was not given the right mattress. He was dcd on levaquin and bactrim. He is feeling good as far as the lungs are concerned. He feels very stuffy, he does have allergies. 03/28/24: he is doing well, after that, back to normal life. Able to do his instrumental activitiesof daily living, be with his children, and feels good. He has lost a little weight intentionally, he eats a lot of fish, he likes vegetables. He does do an energy drink in the morning and a sprite to settle his stomach after he takes his medication. He drinks a lot of vitamin water. If he drinks Gatorade it is a Zero. Has tried to cut down the smoking,a little less than half a pack a day. It is more so when he hurts or is irritable. He was in to see his neurologist who refilled the baclofen pump. Reviewed labs, vit d is a little on the lower side , and he has dyslipidemia No problem-specific Assessment & Plan notes found for this encounter. PAST MEDICAL HISTORY Diagnosis Date Asthma 08/05/2021 Clotting disorder ([facility]) HUGH-1 DVT (deep venous thrombosis) ([facility]) 2012 ED (erectile dysfunction) Factor 5 Leiden mutation, heterozygous ([facility]) History of spinal cord injury 03/03/2015 Lower urinary tract infectious disease Methylenetetrahydrofolate reductase (MTHFR) gene mutation MRSA (methicillin resistant Staphylococcus aureus) 10/2012 spine Neurogenic bladder self straight catheterization KARAN (obstructive sleep apnea) pt never got a cpap; pt unsure if he needed one KARAN (obstructive sleep apnea) 08/05/2021 other HUGH-1 gene Paraplegia following spinal cord injury (HCC) 2012 Recurrent UTI Sepsis (HCC) 02/20/2021 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HCC) PAST SURGICAL HISTORY Procedure Laterality Date IMPLTJ/RPLCMT ITHCL/EDRL DRUG NFS PRGRBL PUMP 03/02/2015 SynchroMed II, 40 ml pump with catheter tip at T9 - Informed consent sigend on 03/03/15 (paper form) IMPLTJ/RPLCMT ITHCL/EDRL DRUG NFS PRGRBL PUMP 10/13/2016 Revision of ITB catheter due to malfunction PAST SURGICAL HISTORY OF 11/09/2012 laminectomy T-4-T-12 PAST SURGICAL HISTORY OF 2002 ORIF with pins right hand PAST SURGICAL HISTORY OF 2012 filter placement for DVT PAST SURGICAL HISTORY OF percutaneous vascular procedure PAST SURGICAL HISTORY OF neck surgery REVISE MEDIAN N/CARPAL TUNNEL SURG Bilateral 2019 FAMILY HISTORY Problem Relation Age of Onset Diabetes Father other (factor v leiden) Father homozigus carries mthfr other (factor v leiden) Mother homozigus carries pie 1 Cancer Paternal Grandfather Heart disease Paternal Grandfather Cancer Paternal Grandmother leukemia Heart Paternal Grandmother Anesthesia Problems No Family History Social History Tobacco Use Smoking status: Every Day Current packs/day: 1.00 Average packs/day: 1 pack/day for 18.0 years (18.0 ttl pk-yrs) Types: Cigarettes Passive exposure: Current Smokeless tobacco: Former Types: Chew Quit date: 01/19/2005 Vaping Use Vaping status: Never Used Substance Use Topics Alcohol use: Yes Comment: rarely Drug use: No Past medical history, appointments, medications, allergies reviewed. Pertinent Lab/Diagnostic Studies are reviewed and discussed today Current Outpatient Medications: cabergoline (DOSTINEX) 0.5 mg tablet methylnaltrexone (RELISTOR) 150 mg tab clotrimazole (LOTRIMIN) 1 % cream diclofenac-miSOPROStol (ARTHROTEC) 50-200 mg-mcg per tablet ondansetron orally disintegrating (ZOFRAN ODT) 4 mg disintegrating tablet montelukast (SINGULAIR) 10 mg tablet fluticasone (FLONASE) 50 mcg/actuation nasal spray albuterol HFA (PROVENTIL HFA, VENTOLIN HFA) 90 mcg/actuation inhaler oxytocin osorio 50 unit (CPD) clomiPHENe (CLOMID) 50 mg tablet Tadalafil (CIALIS) 5 mg tablet sildenafil (REVATIO) 20 mg tablet XARELTO 20 mg tablet diclofenac, EC, (VOLTAREN) 25 mg EC tablet hydrOXYzine pamoate (VISTARIL) 25 mg capsule acetaminophen (TYLENOL EXTRA STRENGTH) 500 mg tablet baclofen (LIORESAL) 10 mg tablet baclofen, LIORESAL, (LIORESAL) 2,000 mcg/mL injection docusate sodium (COLACE) 100 mg capsule Pregabalin (LYRICA) 200 mg capsule tiZANidine (ZANAFLEX) 2 mg tablet lidocaine (XYLOCAINE) 5 % ointment lubiprostone (AMITIZA) 24 mcg capsule morphine SR (MS CONTIN, ORAMORPH SR) 15 mg 12 hr tablet Current Facility-Administered Medications: ondansetron (PF) 4 mg injection (ZOFRAN) midazolam (PF) 2 mg injection (VERSED) Review of Systems CONSTITUTIONAL: No fevers, chills, nightsweats, unintended weight loss HEENT: Denies frequent or severe heaches, nasal congestion/sinus symptoms, problematic allergy problems. EYES: No diplopia or blurry vision. CARDIOVASCULAR: No chest pain, dyspnea, palpitations, orthopnea, PND, ankle edema. PULM: No dyspnea, unexplained cough. GI: No dysphagia/odynophagia, problematic reflux, constipation, diarrhea, changes in stool habits, hematochezia, melena. : No new urinary complaints, including dysuria, gross hematuria or pyuria. NEURO: No new balance problems, peripheral weakness/paresthesias or numbness of concern. MUSC-SKEL: No new joint pain, swelling, or erythema. PSY: No concerns regarding depression, anxiety or panic. INTEGUMENTARY: No new skin changes (rash, new or changing mole, new growth) Physical Exam BP 132/84 (BP Site: Left Arm) Pulse 72 Wt 125.6 kg (277 lb) SpO2 97% BMI 33.72 kg/m General appearance: Well appearing, alert, in no acute distress, well-hydrated, well nourished. Skin: Skin color, texture, turgor normal, no suspicious rashes or lesions Head: Normocephalic, no masses, lesions, tenderness or abnormalities Eyes: Anicteric sclera. Pupils are equally round and reactive to light. Extraocular movements are intact. Oropharynx: Lips, mucosa, and tongue normal, teeth and gums normal, oropharynx normal Neck: Supple, no adenopathy; thyroid symmetric, normal size, no bruits Back: Normal exam Lungs: decreased lung sounds in the left lower quadrant with some ronchi. Heart: RRR without murmur, gallop, or rubs. No ectopy Extremities: the left lower extremity is still swollen and painful ASSESSMENT/PLAN: 1. Factor 5 Leiden mutation, heterozygous ([facility]) - ICD9: 289.81, ICD10: D68.51 (primary diagnosis) He need to cont the xarelto 2. Nicotine use disorder, F17.2 - ICD9: 305.1, ICD10: F17.200 - Cessation encouraged. - Physiologic and physical aspects of tobacco addiction as well as strategies for quitting were discussed. - Counseling was given focusing on the harmful effects of this addiction especially given the patient's medical condition(s) which will be worsened because of the chemicals in tobacco. 3. Encounter for monitoring chronic NSAID therapy - ICD9: V58.83, V58.64, ICD10: Z51.81, Z79.1 - COMPLETE BLOOD COUNT - COMPREHENSIVE METABOLIC PANEL 4. Self-catheterizes urinary bladder - ICD9: V49.89, ICD10: Z78.9 He is aware of sterility 5. Spinal cord injury, T7-T12 ([facility]) - ICD9: 952.15, ICD10: S24.103A He is managing life as best as possible and back to normal right now 6. Secondary male hypogonadism - ICD9: 257.2, ICD10: E29.1 On dostinex and clomid and takes the oxytocin before sexual activity 7. Vitamin D deficiency - ICD9: 268.9, ICD10: E55.9 - VITAMIN D 25 HYDROXY 8. Class 1 obesity with serious comorbidity and body mass index (BMI) of 33.0 to 33.9 in adult, unspecified obesity type - ICD9: 278.00, V85.33, ICD10: E66.811, Z68.33 Encouraged him to keep losing weight Anay Roque MD documented in this encounterA[facility]10-[facility] NoteWilson [facility]10-10-[facility]24 History of Present illness Narrative* Daysi Roque PA-C - 03/27/2024 8:56 AM EDT Images from the original note were not included. INTRATHECAL BACLOFEN THERAPY MANAGEMENT VISIT Patient accompanied by Self PAST SURGICAL HISTORY Procedure Laterality Date IMPLTJ/RPLCMT ITHCL/EDRL DRUG NFS PRGRBL PUMP 03/02/2015 SynchroMed II, 40 ml pump with catheter tip at T9 - Informed consent sigend on 03/03/15 (paper form) IMPLTJ/RPLCMT ITHCL/EDRL DRUG NFS PRGRBL PUMP 10/13/2016 Revision of ITB catheter due to malfunction PAST SURGICAL HISTORY OF 11/09/2012 laminectomy T-4-T-12 PAST SURGICAL HISTORY OF 2002 ORIF with pins right hand PAST SURGICAL HISTORY OF 2012 filter placement for DVT PAST SURGICAL HISTORY OF percutaneous vascular procedure PAST SURGICAL HISTORY OF neck surgery REVISE MEDIAN N/CARPAL TUNNEL SURG Bilateral 2020 HISTORY SINCE LAST VISIT: Hospitalized 01/30-02/01 at [facility] with sepsis and hypoxic respiratory failure secondary to pneumonia, possible UTI, and cellulitis of his lower LLE. Asked to be discharged as soon as he was weaned off pressors and on room air due to being admitted at the same time and needing to care for his children. He was discharged on Bactrim and Levaquin, which he has since finished. He feels back to his baseline. Patient Entered Data PROMIS No data to display Spasticity NRS 07/23/2023 04/16/2023 01/08/2023 11/15/2022 10/02/2022 -- Spasticity Level 4 Spasm Scale 1=Mild spasms induced by stimulation 1=Mild spasms induced by stimulation 1=Mild spasmsinduced by stimulation 1=Mild spasms induced by stimulation Spasm Scale - Trendable Number 1 1 1 1 Spasm Scale 11/15/2022 10/02/2022 08/31/2022 07/10/2022 06/16/2022 -- Spasm Frequency Mild spasms induced by stimulation Mild spasms induced by stimulation Mild spasms induced by stimulation Mild spasms induced by stimulation Mild spasms induced by stimulation Spasm Severity Mild Mild Mild Mild Mild Global Impression of Change 11/15/2022 10/02/2022 08/31/2022 07/10/2022 06/16/2022 -- Rehab global impression of change Much improved Minimally improved Much improved Much improved Muchimproved Pain related to the purpose of the visit: No 0 on a scale of 0 to 10 Safety concerns: domestic violence, living situation, and safety at home: No Driving issues: No - Risk of Falls: No, Change in bowel habits: No Change in urinary symptoms suggesting UTI: No Skin Integrity: Intact Review of Systems EXAM: Position: Sitting Strength Right Left Shoulder abduction 5 5 Elbow flexion 5 5 Elbow extension 5 5 Wrist extension 5 5 Hip flexion 2+ 2 Knee flexion 4 4 Knee extension 3 3 Plantarflexion 4 4 Dorsiflexion 3 3 Spasticity Right Left Shoulder 0 0 Elbow flexors 0 0 Elbow extensors 0 0 Wrist flexors 0 0 Wrist extensors 0 0 Finger flexors 0 0 Finger extensors 0 0 Hip adductors 1 1 Knee extensors 0. 0 Knee flexors 0 0 Plantarflexors 1+ 1 Modified Dannie Scale 0 - No increase in tone 1 - Slight increase in tone (catch and release at end of ROM) 1+ - Slight increase in tone, manifested by a catch, followed by minimal resistance throughout remainder (less than half of ROM) 2 - Marked increase in tone through most of the ROM, but affected part(s) easily moved 3 - Considerable increase in tone; passive movement difficult 4 - Affected part(s) rigid in flexion or extension + Clonus in the ankle that was sustained. Spasms observed: RUE: no right upper extremity spasms LUE: no left upper extremity spasms RLE: right lower extremity spasms ankle clonus LLE: no left lower extremity spasms ankle clonus Timed 25 foot walk: N/A Assistance required: wheelchair Ambulation Index Score: 9 - Restricted to wheelchair, dependent for transfers Patient ID verified using 2 identifiers: Yes Procedure: Refill ITB pump UNIVERSAL PROTOCOL / SAFETY CHECKLIST Procedure to be Performed: baclofen pump refill Sign In: A Moment of CARE was completed. Personnel directly involved with the procedure wore the appropriate PPE (Personal Protective Equipment). Patient/Surrogate Stated/Verified: PATIENT VERIFIED(optional for EMERGENT procedures): Patient name, Date of , Relevant allergies, and The intended procedure Time Out Communication: Intended patient and procedure match the source documents. Consent documented and matches the intended procedure. Relevant labs, photos, and/or imaging studies have been reviewed. Correct side/site marked and visible. Medications required for procedure verified. Fire risk assessed and interventions discussed. No implant(s) inserted. Sign Out: SIGN OUT (optional for EMERGENT procedures): No specimen collected. Daysi Roque PA-C The risks, benefits and alternatives of the procedure were explained. 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 The pump refill port was accessed using the needle provided in the [id number] kit. The reservoir was emptied, and refilled with 40 mL of medication as detailed below. The needle was withdrawn and a band-aid was applied over the puncture site. The pump was reprogrammed as detailed above. ASSESSMENT: SCI with severe spasticity. Recovering well from hospitalization at [facility] for sepsis. Neurologically returned to baseline. He has a dime-sized area of redness at his pump incision site where the pump margin is pressing on the skin. There's no skin breakdown. He denies pain or drainage at the site. The skin has never opened. Recommend using abdominal binder. Will monitor and consider NSGY referral. He was instructed to call our office if there's skin breakdown or increased redness. The pump was refilled without complications. PLAN: 1. ITB pump refilled 2. ITB rate kept the same ITB refill on 05/29/2024 at 9am Mya; alarm date 06/16/2024 Daysi Roque PA-C documented in this encounterAdena [facility]09-16-2024 Instructions* Patient Instructions* Ruslan Sherwood MD - 03/03/2024 12:00 PM EDT POST-BOTOX INJECTIONS You have received botulinum toxin injections today. The skin around the site of injections should be monitored for a couple of days. If redness or swelling occur, the skin should be examined by a health career advisor to rule out infection. Please contact our office via [employer] or by phone at [phone] any time with any questions or concerns. Please note that your next injections should not be scheduled less than 90 days from today. documented in this encounterAdena [facility]ayette [facility] Center09-16-2024 History of Present illness Narrative* Ruslan Sherwood MD - 03/03/2024 11:15 AM EDT Images from the original note were not included. BOTULINUM TOXIN THERAPY Patient accompanied by : mother Tico Smith MD, Neuroimmunology Fellow, assisted with today's encounter Current complaints / history since last visit: most recent botulinum toxin injections on 10/22/23. Hemissed his last set of injections due to hospitalization and ICU admission for sepsis. He reports significant tightness in his bilateral hip flexors since missing his scheduled injection. He also reports tightness in his bilateral calves for the past 6 months. Illnesses / hospitalizations since the last visit: Hospitalized 01/30-02/01 at [facility] with sepsis and hypoxic respiratory failure secondary to pneumonia, possible UTI, and cellulitis of his lower LLE. Asked to be discharged as soon as he was weaned off pressors and on room air due to being admitted at the same time and needing to care for his children. He was discharged on Bactrim and Levaquin, which he has since finished. He reports ongoing mild occasional cough but otherwise feels well. Other updates: Last seen in ITB clinic on 02/05/24. No rate changes or refills at that visit. Referred to health psychology given concern for anxiety/trauma caused by ICU stay. He was excited to sharehis plans to make an addition to his barn and his daughter's recent interest in animal husbandry. Anticoagulation: Xarelto Home stretching/exercise routine: Stretching PT/OT: None currently BT therapy effective? Yes - stiffness, spasms/cramps and pain/discomfort Duration of benefit: 10 weeks Side effects: No Pain related to the purpose of the visit: No 0 on a scale of 0 to 10 Patient Entered Data PROMIS No data to display Spasticity NRS 07/23/2023 04/16/2023 01/08/2023 11/15/2022 10/02/2022 -- Spasticity Level 4 Spasm Scale 1=Mild spasms induced by stimulation 1=Mild spasms induced by stimulation 1=Mild spasmsinduced by stimulation 1=Mild spasms induced by stimulation Spasm Scale - Trendable Number 1 1 1 1 Spasm Scale 11/15/2022 10/02/2022 08/31/2022 07/10/2022 06/16/2022 -- Spasm Frequency Mild spasms induced by stimulation Mild spasms induced by stimulation Mild spasms induced by stimulation Mild spasms induced by stimulation Mild spasms induced by stimulation Spasm Severity Mild Mild Mild Mild Mild Global Impression of Change 11/15/2022 10/02/2022 08/31/2022 07/10/2022 06/16/2022 -- Rehab global impression of change Much improved Minimally improved Much improved Much improved Muchimproved Nutritional status: appetite- unchanged, weight loss is reported, swallowing - denies dysphagia Driving issues: No Safety concerns regarding living situations and safety at home: No, lives with family At risk for falling: Yes . Actual falls since last visit: frequency/number none, no injuries. Examination: Strength Right Left Shoulder abduction 5 5 Elbow flexion 5 5 Elbow extension 5 5 Wrist extension 5 5 Fur Matcher strength (kg) 64 64 Hip flexion 2+ 2 Knee flexion 4 4 Knee extension 3 3 Plantarflexion 4 4 Dorsiflexion 3 3 Spasticity Right Left Shoulder 0 0 Elbow flexors 0 0 Elbow extensors 0 0 Wrist flexors 0 0 Wrist extensors 0 0 Finger flexors 0 0 Finger extensors 0 0 Hip adductors 1 1 Knee extensors 0. 0 Knee flexors 0 0 Plantarflexors 1+ 1 Modified Dannie Scale 0 - No increase in tone 1 - Slight increase in tone (catch and release at end of ROM) 1+ - Slight increase in tone, manifested by a catch, followed by minimal resistance throughout remainder (less than half of ROM) 2 - Marked increase in tone through most of the ROM, but affected part(s) easily moved 3 - Considerable increase in tone; passive movement difficult 4 - Affected part(s) rigid in flexion or extension + Clonus in the ankle that was sustained. Spasms observed: RUE: no right upper extremity spasms LUE: no left upper extremity spasms RLE: right lower extremity spasms ankle clonus LLE: no left lower extremity spasms ankle clonus Timed 25 foot walk: N/A Assistance required: wheelchair Ambulation Index Score: 9 - Restricted to wheelchair, dependent for transfers UNIVERSAL PROTOCOL / SAFETY CHECKLIST Procedure to be Performed: Botulinum toxin injections Sign In: A Moment of CARE was completed. Personnel directly involved with the procedure wore the appropriate PPE (Personal Protective Equipment). Patient/Surrogate Stated/Verified: PATIENT VERIFIED(optional for EMERGENT procedures): Patient name, Date of , Relevant allergies, and The intended procedure Time Out Communication: Intended patient and procedure match the source documents. Consent documented and matches the intended procedure. Sign Out: SIGN OUT (optional for EMERGENT procedures): No specimen collected. MD Ruslan Palm MD The risks, benefits and alternatives of the procedure were explained. Written Consent Obtained: yes - 12/13/2020 Clinician(s) performing the injections: Ruslan Sherwood MD and Tico Smith MD, NeuroimmunologyFellow Operations Examiner: Daysi Padgett RN The patient was positioned supine . Brand of toxin injected: Botox. After skin preparation with alcohol, a total dose of 200 units were injected as follows: Muscle Limb/Side Dose Guidance Comments Iliopsoas RLE 100 units EMG/US 2 sites Iliopsoas LLE 75 units EMG/US 2 sites Medial gastrocnemius RLE 25 units EMG 2 sites Total Dose: 200 Dilution: 100 units / 2 ml LOT #: [id number] Expiration Date: Month: 10 Year: 26 The injections were tolerated well. Minimal bleeding occurred at the injection sites. Assessment: (M62.838) Spasm of muscle (primary encounter diagnosis) (S24.103A) Spinal cord injury at T7-T12 level ([facility]) (G82.20) Paraplegia ([facility]) Mr. Manzano is known to our spasticity practice due to SCI with severe spasticity. Spasticity is managed and controlled with ITB Therapy. We have been targeting BT injections in the iliopsoas bilaterally to assist with management of reported stiffness in the hip flexors. Today, we added 25 units in his right gastrocnemius to his usual regimen given reported stiffness in this muscle as well. Plan: 1 - Repeat injections in 3 months, 200 units. In wheelchair, transfers independently. 2 - PT/OT: He has not resumed outpatient PT either for neuro or MSK related issues 3 - ITB pump management and refill here at the [facility], last seen 10/22/23 4 - A copy of the note will be sent via Embarkly to: Dr. Del Smith MD Neuroimmunology Fellow, PGY 5 [facility] TEACHING PHYSICIAN NOTE OF PERSONAL INVOLVEMENT IN CARE I have reviewed the Progress Note obtained and documented by Tico Smith MD, Neuroimmunology Fellow. I personally participated in the joseph components and supervised the encounter. I have discussed the case and management of the patient's care with them, and agree with above assessment and plan. 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 Spasticity is well-controlled on a combination therapy of ITB pump and BoNT-A injections. We are using BoNT- A therapy to manage spasmsin the hip flexors. He was pleased with the results of the most recent injections. Patient is also reporting similar symptoms in the bilateral calves. We increased the total dose to 200 units in the lower extremities and included the right gastrocs today. Depending on his response, we can uptitratethe total dose for improved symptom control in the bilateral plantar flexors. Ruslan Sherwood MD documented in this encounterAdena [facility] Center09-16-2024 NoteWilson Health08-21-2024 Telephone encounter Note* Telephone Encounter - Richie Alcala MA - 02/06/2024 11:49 AM EDT Prescription Refill Information The patient has been identified by name and date of : Yes Caregiver verified no other encounters exist for this prescription request: Yes Caregiver confirmed with patient/requestor that no other refills are due, in the near future, with this provider at this time: Yes The last office visit in the department: 02/04/2024 Does the patient have a future office visit with this provider/department: Yes Requested Prescriptions Pending Prescriptions Disp Refills ondansetron orally disintegrating (ZOFRAN ODT) 4 mg disintegrating tablet 12 tablet 0 Sig: Take 1 tablet by mouth every 8 hours as needed for nausea/vomiting. Richie Alcala MA February 06, 2024 11:49 AM [facility]08-21-2024 Miscellaneous Notes* Telephone Encounter - Richie Alcala MA - 02/06/2024 11:49 AM EDT Prescription Refill Information The patient has been identified by name and date of : Yes Caregiver verified no other encounters exist for this prescription request: Yes Caregiver confirmed with patient/requestor that no other refills are due, in the near future, with this provider at this time: Yes The last office visit in the department: 02/04/2024 Does the patient have a future office visit with this provider/department: Yes Requested Prescriptions Pending Prescriptions Disp Refills ondansetron orally disintegrating (ZOFRAN ODT) 4 mg disintegrating tablet 12 tablet 0 Sig: Take 1 tablet by mouth every 8 hours as needed for nausea/vomiting. Richie Alcala MA February 06, 2024 11:49 AM documented in this encounterAdena Fayette [facility] Center08-20-2024 Instructions* Patient Instructions* Jimena Kramer PA-C - 02/05/2024 10:32 AM EDT Botulinum Toxin injections 03/03 at 2:[address] Yanet Guzman on 03/27/2024 at 9am Hehr; Alarm date: 04/04/2024 documented in this encounterAdena Fayette [facility] Center08-20-2024 History of Present illness Narrative* Jimena Kramer PA-C - 02/05/2024 10:30 AM EDT Images from the original note were not included. INTRATHECAL BACLOFEN THERAPY MANAGEMENT VISIT Patient accompanied by Spouse PAST SURGICAL HISTORY 03/02/2015: IMPLTJ/RPLCMT ITHCL/EDRL DRUG NFS PRGRBL PUMP Comment: SynchroMed II, 40 ml pump with catheter tip at T9 - Informed consent sigend on 03/03/15 (paper form) 10/13/2016: IMPLTJ/RPLCMT ITHCL/EDRL DRUG NFS PRGRBL PUMP Comment: Revision of ITB catheter due to malfunction 11/09/2012: PAST SURGICAL HISTORY OF Comment: laminectomy T-4-T-12 2002: PAST SURGICAL HISTORY OF Comment: ORIF with pins right hand 2012: PAST SURGICAL HISTORY OF Comment: filter placement for DVT No date: PAST SURGICAL HISTORY OF Comment: percutaneous vascular procedure No date: PAST SURGICAL HISTORY OF Comment: neck surgery No date: REVISE MEDIAN N/CARPAL TUNNEL SURG; Bilateral Comment: 2020 HISTORY SINCE LAST VISIT: Since Mateus was last here he was admitted to [facility] in [place], [place]. Admitted with septic shock, suspected due to pneumonia, possible UTI and cellulitis. Required 8 L HFNC as well pressor support. Started on broad spectrum antibiotics and admitted to the ICU. Was ableto wean to room air and off pressors. Was going to transfer out of ICU and wean IV antibiotics but patient from 4 hours away, is getting admitted for new pulmonary nodules and he has 5 kids. Wasvery concerned and asked to be discharged. At this time blood cultures were no growth at 24 hours, urine culture was not back. He has a history of cellulitis which always improves with bactrim. He was recently treated for pneumonia with opacities noted on scans. He was transitioned to oral bactrim and levaquin with very close outpatient follow up. During his time there he had MRI T/L spine which were negative for acute findings. He did not have his ITB pump checked post MRI and is here to ensure his pump has turned back on. He denies any signsor symptoms of baclofen withdrawal. Reports symptoms of anxiety since having two ICU stays. Blood pressure 130/79, pulse 71, and pulse ox 99% on room air. Exercise / stretching / rehabilitation: Stretches daily Use of oral medications for spasticity: Yes- Baclofen 10m twice daily, Lyrica 200mg twice daily, Tizanidine 2mg tablet twice daily Patient Entered Data PROMIS No data to display Spasticity NRS 07/23/2023 04/16/2023 01/08/2023 11/15/2022 10/02/2022 -- Spasticity Level 4 Spasm Scale 1=Mild spasms induced by stimulation 1=Mild spasms induced by stimulation 1=Mild spasmsinduced by stimulation 1=Mild spasms induced by stimulation Spasm Scale - Trendable Number 1 1 1 1 Spasm Scale 11/15/2022 10/02/2022 08/31/2022 07/10/2022 06/16/2022 -- Spasm Frequency Mild spasms induced by stimulation Mild spasms induced by stimulation Mild spasms induced by stimulation Mild spasms induced by stimulation Mild spasms induced by stimulation Spasm Severity Mild Mild Mild Mild Mild Global Impression of Change 11/15/2022 10/02/2022 08/31/2022 07/10/2022 06/16/2022 -- Rehab global impression of change Much improved Minimally improved Much improved Much improved Muchimproved Pain related to the purpose of the visit: No 0 on a scale of 0 to 10 Safety concerns: domestic violence, living situation, and safety at home: No Driving issues: No - not currently driving Risk of Falls: Yes, No falls Change in bowel habits: No Change in urinary symptoms suggesting UTI: No Skin Integrity: Cellulitis of left upper extremity, onychomycosis of nails/feet. Review of Systems EXAM: Position: Sitting Strength Right Left Shoulder abduction 5 5 Elbow flexion 5 5 Elbow extension 5 5 Wrist extension 5 5 Hip flexion 2+ 1 Knee flexion 3+ 3 Knee extension 3+ 3 Plantarflexion 4 4 Dorsiflexion 3+ 1+ Spasticity Right Left Shoulder 0 0 Elbow flexors 0 0 Elbow extensors 0 0 Wrist flexors 0 0 Wrist extensors 0 0 Finger flexors 0 0 Finger extensors 0 0 Hip adductors 0 0 Knee extensors 0. 0 Knee flexors 0 0 Plantarflexors 0 1 Modified Dannie Scale 0 - No increase in tone 1 - Slight increase in tone (catch and release at end of ROM) 1+ - Slight increase in tone, manifested by a catch, followed by minimal resistance throughout remainder (less than half of ROM) 2 - Marked increase in tone through most of the ROM, but affected part(s) easily moved 3 - Considerable increase in tone; passive movement difficult 4 - Affected part(s) rigid in flexion or extension + Clonus in the ankle that was sustained. Spasms observed: RUE: no right upper extremity spasms LUE: no left upper extremity spasms RLE: right lower extremity spasms ankle clonus LLE: no left lower extremity spasms ankle clonus Timed 25 foot walk: N/A Assistance required: wheelchair Ambulation Index Score: 9 - Restricted to wheelchair, dependent for transfers Patient ID verified using 2 identifiers: Yes Procedure: ITB pump post MRI Check UNIVERSAL PROTOCOL / SAFETY CHECKLIST Procedure to be Performed: ITB pump post MRI Check Sign In: A Moment of CARE was completed. Personnel directly involved with the procedure wore the appropriate PPE (Personal Protective Equipment). Special equipment: Swapbox ITB pump reader Patient/Surrogate Stated/Verified: PATIENT VERIFIED(optional for EMERGENT procedures): Patient name, Date of , Relevant allergies, and The intended procedure Time Out Communication: Intended patient and procedure match the source documents. Consent documented and matches the intended procedure. Relevant labs, photos, and/or imaging studies have been reviewed. Correct side/site marked and visible. Medications required for procedure verified. No fire risk assessment and interventions applicable. No implant(s) inserted. Sign Out: SIGN OUT (optional for EMERGENT procedures): No specimen collected. Jimena Kramer PA-C The risks, benefits and alternatives of the procedure were explained. Written Consent Obtained: yes - 12/09/2018 Current Drug: Lioresal Drug Concentration: 2000 mcg/ml Current Rate: 935.6 mcg/day Current Dose schedule: Simple continuous [employer] Residual: 29.8 ml Actual Residual: 29.8 ml Pump Refilled: No Program Change: No New Drug: Lioresal Drug Concentration: 2000 mcg/ml New Rate: 935.6 mcg/day New Dose schedule: Simple continuous Bolus Given: No Estimated ZEB: 53 months (APR 2028) Mehan alarm date: 04/04/2024 Final telemetry read and agrees with planned programming: Yes ASSESSMENT: SCI with severe spasticity. He Presents today for post MRI check. [facility] [place] [facility] who did not check his ITB pump after MRI. Recently discharged was in ICU withseptic shock, hypoxia, generalized weakness currently well recovered. Followed up with PCP yesterday. Currently has left lower extremity cellulitis by and patients report has improved. Is on oral antibiotic regimen of Bactrim and Levofloxacin. Normal Vitals at today's visit. Baclofen pump logscheck which indicated ITB Motor stall on 01/30 at 11:43 pm and Motor Stall Recovery on 01/31 at 12:50am. Despite recent illness, spasticity remains well controlled with exception of ankle clonus. We did not change his ITB rate. No ITB refill was needed today. Patient reported significant anxiety post ICU stay and fits criteria for Acute Stress Disorder. I recommended speaking to our Health Psychology team at [facility]. Order was placed. PLAN: 1. ITB logs checked confirmed Pump Motor Stall Recovery Post MRI 2. No ITB rate change 3. ITB pump was not refilled 4. Consult to health Psychology Botox appointment 03/03/24 at 2:[address] Sherwood Refill on 03/27/2024 at 9am [facility]hr at [facility]; Alarm date: 04/04/2024 Jimena Kramer PA-C documented in this encounterAden[facility]08-20-2024 [facility]08-19-2024 Note[facility]08-19-2024 History of Present illness Narrative* Anay Roque MD - 02/04/2024 4:14 PM EDT Reason for Visit Patient presents with: hospital follow up Mateus Manzano is a 38 year old male who presents here today for CPE. Health Maintenance Pneumococcal Vaccine(1 of 2 - PCV) Spirometry Depression Screening Anxiety Screening Hepatitis C Screening Hepatitis B Vaccine(1 of 3 - 19+ 3-dose series) Lipid Screening Covid-19 Vaccine( season) Annual PCP Team Chronic Disease Visit HPI Mateus is a 38-year-old gentleman with a past medical history of spinal cord injury at T7-T12 that make him paraplegic, chronic pain syndrome which made him have secondary male hypogonadism, tobacco abuse disorder, sleep apnea, neurogenic bladder from his spinal cord injury, recurrent UTIs, factor VLeiden positivity, obesity. He was in the ED or at [facility] on 01/02/2024 and was discharged a couple days later on p.o. levofloxacin. He was admitted for pneumonia, he had SIRS positive, he was tachycardic, was febrile with a leukocytosis of 16 and he had bilateral lower lobes pneumonia. He had a fever of 105 and needed ice baths to help him sleep. He was discharged the next day on Levaquin and Medrol Dosepak. No albuterol inhaler was given. He notes today that he has been feeling very tight in his [place] and off. He did complete the antibiotic and the prednisone taper He has lost a lot of weight recently. Does not eat as much, he goes out and spends his time outsidea lot. In the winter. 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 He is always trying to do something. For the back pain he has done some RFA, has taken morphine tizanidine and they have helped. 02/08: Was admitted in the hospital on 01/30 for septic shock at [facility] in [facility].. He required resuscitation and Levophed to keep of his blood pressure. Blood cultures were negative x 2 and lactate was 1.8, prolactin was 3.55. Urine culture was yet to come. Possible sources of infection are urine and the lungs. He was given broad-spectrum antibiotics cefepime, vancomycin, Flagyl and was discharged on Bactrim and Levaquin. MRI of the spine did not have any positive findings CT of the lower extremities showed cellulitis, his echo was with normal EF,he did require 8 L high flow nasal cannula but was able to maintain saturation on room air. He also had thrombocytopenia which was improving. He notes that care in [place] was terrible, he was not given his pain medication or baclofen through thepump. He was not given the right mattress. He was dcd on levaquin and bactrim. He is feeling good as far as the lungs are concerned. He feels very stuffy, he does have allergies. No problem-specific Assessment & Plan notes found for this encounter. PAST MEDICAL HISTORY 08/05/2021: Asthma No date: Clotting disorder ([facility]) Comment: HUGH-1 2012: DVT (deep venous thrombosis) ([facility]) No date: ED (erectile dysfunction) No date: Factor 5 Leiden mutation, heterozygous ([facility]) 03/03/2015: History of spinal cord injury No date: Lower urinary tract infectious disease No date: Methylenetetrahydrofolate reductase (MTHFR) gene mutation 10/2012: MRSA (methicillin resistant Staphylococcus aureus) Comment: spine No date: Neurogenic bladder Comment: self straight catheterization No date: KARAN (obstructive sleep apnea) Comment: pt never got a cpap; pt unsure if he needed one 08/05/2021: KARAN (obstructive sleep apnea) No date: other Comment: HUGH-1 gene 2012: Paraplegia following spinal cord injury (HCC) No date: Recurrent UTI 02/20/2021: Sepsis (HCC) No date: 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HCC) PAST SURGICAL HISTORY 03/02/2015: IMPLTJ/RPLCMT ITHCL/EDRL DRUG NFS PRGRBL PUMP Comment: SynchroMed II, 40 ml pump with catheter tip at T9 - Informed consent sigend on 03/03/15 (paper form) 10/13/2016: IMPLTJ/RPLCMT ITHCL/EDRL DRUG NFS PRGRBL PUMP Comment: Revision of ITB catheter due to malfunction 11/09/2012: PAST SURGICAL HISTORY OF Comment: laminectomy T-4-T-12 2002: PAST SURGICAL HISTORY OF Comment: ORIF with pins right hand 2013: PAST SURGICAL HISTORY OF Comment: filter placement for DVT No date: PAST SURGICAL HISTORY OF Comment: percutaneous vascular procedure No date: PAST SURGICAL HISTORY OF Comment: neck surgery No date: REVISE MEDIAN N/CARPAL TUNNEL SURG; Bilateral Comment: 2020 FAMILY HISTORY Problem Relation Age of Onset Diabetes Father other (factor v leiden) Father homozigus carries mthfr other (factor v leiden) Mother homozigus carries pie 1 Cancer Paternal Grandfather Heart disease Paternal Grandfather Cancer Paternal Grandmother leukemia Heart Paternal Grandmother Anesthesia Problems No Family History Social History Tobacco Use Smoking status: Every Day Current packs/day: 1.00 Average packs/day: 1 pack/day for 18.0 years (18.0 ttl pk-yrs) Types: Cigarettes Smokeless tobacco: Former Types: Chew Quit date: 01/19/2005 Vaping Use Vaping status: Never Used Substance Use Topics Alcohol use: Yes Comment: rarely Drug use: No Past medical history, appointments, medications, allergies reviewed. Pertinent Lab/Diagnostic Studies are reviewed and discussed today Current Outpatient Medications: ondansetron orally disintegrating (ZOFRAN ODT) 4 mg disintegrating tablet albuterol HFA (PROVENTIL HFA, VENTOLIN HFA) 90 mcg/actuation inhaler oxytocin osorio 50 unit (CPD) lubiprostone (AMITIZA) 24 mcg capsule clomiPHENe (CLOMID) 50 mg tablet Tadalafil (CIALIS) 5 mg tablet sildenafil (REVATIO) 20 mg tablet XARELTO 20 mg tablet diclofenac, EC, (VOLTAREN) 25 mg EC tablet hydrOXYzine pamoate (VISTARIL) 25 mg capsule morphine SR (MS CONTIN, ORAMORPH SR) 15 mg 12 hr tablet acetaminophen (TYLENOL EXTRA STRENGTH) 500 mg tablet baclofen (LIORESAL) 10 mg tablet baclofen, LIORESAL, (LIORESAL) 2,000 mcg/mL injection docusate sodium (COLACE) 100 mg capsule Pregabalin (LYRICA) 200 mg capsule tiZANidine (ZANAFLEX) 2 mg tablet lidocaine (XYLOCAINE) 5 % ointment Current Facility-Administered Medications: ondansetron (PF) 4 mg injection (ZOFRAN) midazolam (PF) 2 mg injection (VERSED) Review of Systems CONSTITUTIONAL: No fevers, chills, nightsweats, unintended weight loss HEENT: Denies frequent or severe heaches, nasal congestion/sinus symptoms, problematic allergy problems. EYES: No diplopia or blurry vision. CARDIOVASCULAR: No chest pain, dyspnea, palpitations, orthopnea, PND, ankle edema. PULM: No dyspnea, unexplained cough. GI: No dysphagia/odynophagia, problematic reflux, constipation, diarrhea, changes in stool habits, hematochezia, melena. : No new urinary complaints, including dysuria, gross hematuria or pyuria. NEURO: No new balance problems, peripheral weakness/paresthesias or numbness of concern. MUSC-SKEL: No new joint pain, swelling, or erythema. PSY: No concerns regarding depression, anxiety or panic. INTEGUMENTARY: No new skin changes (rash, new or changing mole, new growth) Physical Exam BP 130/84 Pulse 64 Resp 16 General appearance: Well appearing, alert, in no acute distress, well-hydrated, well nourished. Skin: Skin color, texture, turgor normal, no suspicious rashes or lesions Head: Normocephalic, no masses, lesions, tenderness or abnormalities Eyes: Anicteric sclera. Pupils are equally round and reactive to light. Extraocular movements are intact. Oropharynx: Lips, mucosa, and tongue normal, teeth and gums normal, oropharynx normal Neck: Supple, no adenopathy; thyroid symmetric, normal size, no bruits Back: Normal exam Lungs: decreased lung sounds in the left lower quadrant with some ronchi. Heart: RRR without murmur, gallop, or rubs. No ectopy Extremities: the left lower extremity is still swollen and painful ASSESSMENT/PLAN: 1. Septic shock ([facility]) - ICD9: 038.9, 785.52, 995.92, ICD10: A41.9, R65.21 (primary diagnosis) He has recovered well after the shock 2. Cellulitis of left upper extremity - ICD9: 682.3, ICD10: L03.114 - SULFAMETHOXAZOLE 800 MG-TRIMETHOPRIM 160 MG TABLET - LEVOFLOXACIN 750 MG TABLET 3. Urinary tract infection without hematuria, site unspecified - ICD9: 599.0, ICD10: N39.0 We do not have the culture report back yet - SULFAMETHOXAZOLE 800 MG-TRIMETHOPRIM 160 MG TABLET - LEVOFLOXACIN 750 MG TABLET 4. Onychomycosis - ICD9: 110.1, ICD10: B35.1 Wondering if the infection is coming from his feet or nails. As we are not sure about the source ofthe infection for the sepsis - CONSULT TO PODIATRY 5. Spinal cord injury, T7-T12 ([facility]) - ICD9: 952.15, ICD10: S24.103A - CONSULT TO PODIATRY 6. Paraplegia ([facility]) - ICD9: 344.1, ICD10: G82.20 - CONSULT TO PODIATRY 7. Spasticity - ICD9: 781.0, ICD10: R25.2 - CONSULT TO PODIATRY Anay Roque MD documented in this encounterAdena [facility]08-19-2024 Telephone encounter Note * Telephone Encounter - Shanika Vidales RN - 02/04/2024 10:14 AM EDT SPECIALTY CARE COORDINATION QUICK NOTE Called Patient identified by name and date of : Yes She states patient had MRI late Sunday evening and ITB pump was not checked at the hospital afterwards Patient was discharged Sunday Denies any baclofen withdrawal symptoms Confirms he does have oral baclofen at home if needed Requesting appt to check ITB pump Not able to make today, has appt with PCP Agreed on 02/04 appointment at 1030am with Mary Kramer ; slot put on hold, page sent to add on she verbalized understanding and agrees with plan No further concerns [facility] Work Phone: 1(186) 796-899908-19-2024 Miscellaneous Notes* Telephone Encounter - Shanika Vidales RN - 02/04/2024 10:14 AM EDT SPECIALTY CARE COORDINATION QUICK NOTE Called Patient identified by name and date of : Yes She states patient had MRI late Sunday evening and ITB pump was not checked at the hospital afterwards Patient was discharged Sunday Denies any baclofen withdrawal symptoms Confirms he does have oral baclofen at home if needed Requesting appt to check ITB pump Not able to make today, has appt with PCP Agreed on 02/04 appointment at 1030am with Mary Kramer ; slot put on hold, page sent to add on she verbalized understanding and agrees with plan No further concerns * Telephone Encounter - Cyn Field - 02/04/2024 9:33 AM EDT Name of Caller: Tana Manzano Relationship to patient: patient Last visit in this department: 01/14/2024 Reason for Call: Other : Patient was in ICU at [facility] in [place]. His called asking if he could come in to have his Baclofen Pump checked. She said he had an MRI there and they did not know about the Baclofen Pump but that he needs to make sure it is working right because the MRI could affect it. Please call patient or his . Thanks! Callback number: Tana (Spouse) [phone] Mateus (Patient) [phone] Cyn Field documented in this encounterAdena [facility]ayette [facility] Center08-19-2024 Telephone encounter Note * Telephone Encounter - Cyn Field - 02/04/2024 9:33 AM EDT Name of Caller: Tana Manzano Relationship to patient: patient Last visit in this department: 01/14/2024 Reason for Call: Other : Patient was in ICU at [facility] in [place]. His called asking if he could come in to have his Baclofen Pump checked. She said he had an MRI there and they did not know about the Baclofen Pump but that he needs to make sure it is working right because the MRI could affect it. Please call patient or his . Thanks! Callback number: Tana (Spouse) [phone] Mateus (Patient) [phone] Cyn Field [facility]08-16-2024 Telephone encounter Note* Telephone Encounter - Shanika Vidales RN - 02/01/2024 3:44 PM EDT SPECIALTY CARE COORDINATION QUICK NOTE Called Tana Patient identified by name and date of : Yes She states he is in the ICU in hospital in [place] They think he has an infection in his leg Pharmacist was asking about ITB dosing Unable to pull up mychart information at this hospital Current ITB pump setting from 01/14/24 visit: Current Drug: Lioresal Drug Concentration: 2000 mcg/ml Current Rate: 935.6 mcg/day Current Dose schedule: Simple continuous Mehan alarm date: 04/04/2024 Reviewed she can access this in his mychart under past appointments, provider note is available she verbalized understanding and agrees with plan [facility] Work Phone: 1(611) 402-109208-16-2024 Miscellaneous Notes* Telephone Encounter - Shanika Vidales RN - 02/01/2024 3:44 PM EDT SPECIALTY CARE COORDINATION QUICK NOTE Called Tana Patient identified by name and date of : Yes She states he is in the ICU in hospital in [place] They think he has an infection in his leg Pharmacist was asking about ITB dosing Unable to pull up mychart information at this hospital Current ITB pump setting from 01/14/24 visit: Current Drug: Lioresal Drug Concentration: 2000 mcg/ml Current Rate: 935.6 mcg/day Current Dose schedule: Simple continuous Mehan alarm date: 04/04/2024 Reviewed she can access this in his mychart under past appointments, provider note is available she verbalized understanding and agrees with plan * Telephone Encounter - Nidla Castanon - 02/01/2024 2:48 PM EDT Pt needs to know the dose of his baclofin can be sent over mychart documented in this encounterAdena [facility]ayette [facility] Center08-16-2024 Telephone encounter Note * Telephone Encounter - Nilda Castanon - 02/01/2024 2:48 PM EDT Pt needs to know the dose of his baclofin can be sent over mychart [facility]08-02-2024 Telephone encounter Note* Telephone Encounter - Priti Panchal LPN - 01/18/2024 9:27 AM EDT In review this was also denied last year. [facility]08-02-2024 Miscellaneous Notes* Telephone Encounter - Priti Panchal LPN - 01/18/2024 9:27 AM EDT In review this was also denied last year. * Telephone Encounter - Priti Panchal LPN - 01/16/2024 3:05 PM EDT Images from the original note were not included. Electronic PA completed for ondansetron ODT. This has been denied. Request Reference Number: [id number]. ONDANSETRON TAB 4MG ODT is denied for not meeting the prior authorization requirement(s). Details of this decision are in the notice attached below or have beenfaxed to you. Payer: [employer] P[employer] Part D [phone] Electronic appeal: Not supported Appeals are not supported through [facility]. Please refer to the fax case notice for appeals information and instructions. View History Notes Time User Attachment Attachment received from payer. 01/16/2024 3:03 PM [facility], Rx Priorauth In Document Medication Being Authorized ondansetron orally disintegrating (ZOFRAN ODT) 4 mg disintegrating tablet Take 1 tablet by mouth every 8 hours as needed for nausea/vomiting. Dispense: 12 tablet Refills: 0 Start: 01/16/2024 Class: Normal Diagnoses: Nausea This order has been released to its destination. To be filled at: [facility] [address] [place] [address] [id number] - [address] [facility] [phone] [id number] documented in this encounterAdena Fayette [facility] Center07-31-2024 Telephone encounter Note * Telephone Encounter - Priti Panchal LPN - 01/16/2024 3:05 PM EDT Images from the original note were not included. Electronic PA completed for ondansetron ODT. This has been denied. Request Reference Number: [id number]. ONDANSETRON TAB 4MG ODT is denied for not meeting the prior authorization requirement(s). Details of this decision are in the notice attached below or have beenfaxed to you. Payer: [employer] P[employer] Part D [phone] Electronic appeal: Not supported Appeals are not supported through [facility]. Please refer to the fax case notice for appeals information and instructions. View History Notes Time User Attachment Attachment received from payer. 01/16/2024 3:03 PM [facility], Rx Priorauth In Document Medication Being Authorized ondansetron orally disintegrating (ZOFRAN ODT) 4 mg disintegrating tablet Take 1 tablet by mouth every 8 hours as needed for nausea/vomiting. Dispense: 12 tablet Refills: 0 Start: 01/16/2024 Class: Normal Diagnoses: Nausea This order has been released to its destination. To be filled at: [facility] [id number] - [place] [address] [address] [facility] [phone] [id number] [facility]07-31-2024 Telephone encounter Note* Telephone Encounter - Fozia Kim - 01/16/2024 8:24 AM EDT Prescription Refill Information The patient has been identified by name and date of : Yes Caregiver verified no other encounters exist for this prescription request: Yes Caregiver confirmed with patient/requestor that no other refills are due, in the near future, with this provider at this time: Yes The last office visit in the department: 01/09/24 Does the patient have a future office visit with this provider/department: Yes Requested Prescriptions Pending Prescriptions Disp Refills ondansetron orally disintegrating (ZOFRAN ODT) 4 mg disintegrating tablet 12 tablet 0 Sig: Take 1 tablet by mouth every 8 hours as needed for nausea/vomiting. Fozia Muhammad January 16, 2024 8:24 AM [facility]07-31-2024 Miscellaneous Notes* Telephone Encounter - Fozia Kim - 01/16/2024 8:24 AM EDT Prescription Refill Information The patient has been identified by name and date of : Yes Caregiver verified no other encounters exist for this prescription request: Yes Caregiver confirmed with patient/requestor that no other refills are due, in the near future, with this provider at this time: Yes The last office visit in the department: 01/09/24 Does the patient have a future office visit with this provider/department: Yes Requested Prescriptions Pending Prescriptions Disp Refills ondansetron orally disintegrating (ZOFRAN ODT) 4 mg disintegrating tablet 12 tablet 0 Sig: Take 1 tablet by mouth every 8 hours as needed for nausea/vomiting. Fozia Muhammad January 16, 2024 8:24 AM documented in this encounterAdena Fayette [facility] Center07-29-2024 NoteWilson Health07-29-2024 History of Present illness Narrative* Daysi Roque PA-C - 01/14/2024 3:20 PM EDT Images from the original note were not included. INTRATHECAL BACLOFEN THERAPY MANAGEMENT VISIT Patient accompanied by Self PAST SURGICAL HISTORY Procedure Laterality Date IMPLTJ/RPLCMT ITHCL/EDRL DRUG NFS PRGRBL PUMP 03/02/2015 SynchroMed II, 40 ml pump with catheter tip at T9 - Informed consent sigend on 03/03/15 (paper form) IMPLTJ/RPLCMT ITHCL/EDRL DRUG NFS PRGRBL PUMP 10/13/2016 Revision of ITB catheter due to malfunction PAST SURGICAL HISTORY OF 11/09/2012 laminectomy T-4-T-12 PAST SURGICAL HISTORY OF 2002 ORIF with pins right hand PAST SURGICAL HISTORY OF 2012 filter placement for DVT PAST SURGICAL HISTORY OF percutaneous vascular procedure PAST SURGICAL HISTORY OF neck surgery REVISE MEDIAN N/CARPAL TUNNEL SURG Bilateral 2019 HISTORY SINCE LAST VISIT: Was hospitalized two weeks ago for pneumonia. Breathing is better, energyis low. No change in spasticity. Use of oral medications for spasticity: No Patient Entered Data PROMIS No data to display Spasticity NRS 07/23/2023 04/16/2023 01/08/2023 11/15/2022 10/02/2022 -- Spasticity Level 4 Spasm Scale 1=Mild spasms induced by stimulation 1=Mild spasms induced by stimulation 1=Mild spasmsinduced by stimulation 1=Mild spasms induced by stimulation Spasm Scale - Trendable Number 1 1 1 1 Spasm Scale 11/15/2022 10/02/2022 08/31/2022 07/10/2022 06/16/2022 -- Spasm Frequency Mild spasms induced by stimulation Mild spasms induced by stimulation Mild spasms induced by stimulation Mild spasms induced by stimulation Mild spasms induced by stimulation Spasm Severity Mild Mild Mild Mild Mild Global Impression of Change 11/15/2022 10/02/2022 08/31/2022 07/10/2022 06/16/2022 -- Rehab global impression of change Much improved Minimally improved Much improved Much improved Muchimproved Pain related to the purpose of the visit: No 0 on a scale of 0 to 10 Safety concerns: domestic violence, living situation, and safety at home: No Driving issues: No - Risk of Falls: No, Change in bowel habits: No Change in urinary symptoms suggesting UTI: No Skin Integrity: Intact Review of Systems EXAM: Position: Sitting Strength Right Left Shoulder abduction 5 5 Elbow flexion 5 5 Elbow extension 5 5 Wrist extension 5 5 Hip flexion 2+ 1 Knee flexion 3+ 3 Knee extension 3+ 3 Plantarflexion 4 4 Dorsiflexion 3+ 1+ Spasticity Right Left Shoulder 0 0 Elbow flexors 0 0 Elbow extensors 0 0 Wrist flexors 0 0 Wrist extensors 0 0 Finger flexors 0 0 Finger extensors 0 0 Hip adductors 0 0 Knee extensors 0. 0 Knee flexors 1 1 Plantarflexors 1 1 Modified Dannie Scale 0 - No increase in tone 1 - Slight increase in tone (catch and release at end of ROM) 1+ - Slight increase in tone, manifested by a catch, followed by minimal resistance throughout remainder (less than half of ROM) 2 - Marked increase in tone through most of the ROM, but affected part(s) easily moved 3 - Considerable increase in tone; passive movement difficult 4 - Affected part(s) rigid in flexion or extension + Clonus in the ankle that was sustained. Spasms observed: RUE: no right upper extremity spasms LUE: no left upper extremity spasms RLE: right lower extremity spasms ankle clonus LLE: no left lower extremity spasms ankle clonus Timed 25 foot walk: N/A Assistance required: wheelchair Ambulation Index Score: 9 - Restricted to wheelchair, dependent for transfers Patient ID verified using 2 identifiers: Yes Procedure: Refill ITB pump UNIVERSAL PROTOCOL / SAFETY CHECKLIST Procedure to be Performed: baclofen pump refill Sign In: A Moment of CARE was completed. Personnel directly involved with the procedure wore the appropriate PPE (Personal Protective Equipment). Patient/Surrogate Stated/Verified: PATIENT VERIFIED(optional for EMERGENT procedures): Patient name, Date of , Relevant allergies, and The intended procedure Time Out Communication: Intended patient and procedure match the source documents. Consent documented and matches the intended procedure. Relevant labs, photos, and/or imaging studies have been reviewed. Correct side/site marked and visible. Medications required for procedure verified. Fire risk assessed and interventions discussed. No implant(s) inserted. Sign Out: SIGN OUT (optional for EMERGENT procedures): No specimen collected. Daysi Roque PA-C The risks, benefits and alternatives of the procedure were explained. 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 The pump refill port was accessed using the needle provided in the [id number] kit. The reservoir was emptied, and refilled with 40 mL of medication as detailed below. The needle was withdrawn and a band-aid was applied over the puncture site. The pump was reprogrammed as detailed above. ASSESSMENT: SCI with severe spasticity. Recently recovering from pneumonia, which required hospitalization. He agreed to keep the pump rate the same. The pump was refilled without complications. PLAN: 1. ITB pump refilled 2. ITB rate kept the same Refill on 03/27/2024 at 9am [facility]; Alarm date: 04/04/2024 Daysi Roque PA-C documented [facility] Telephone encounter Note * Telephone Encounter - Shankia Vidales RN - 01/10/2024 1:57 PM EDT Patient is rescheduled for Sunday, 01/13 in [facility] Work Phone: 1(457) 502-637607-25-2024 Miscellaneous Notes* Telephone Encounter - Shanika Vidales RN - 01/10/2024 1:57 PM EDT Patient is rescheduled for Sunday, 01/13 in [facility] * Telephone Encounter - Shanika Vidales RN - 01/10/2024 11:40 AM EDT Called left message to call office on VM * Telephone Encounter - Daysi Roque PA-C - 01/10/2024 9:44 AM EDT Mateus did not show up for his pump refill this morning. Alarm date 01/14/2024. His phone went straight to . I left a message for him to call back as soon as possible to reschedule his appointment, preferably for tomorrow. Daysi Roque PA-C documented in this encounterA[facility] Telephone encounter Note * Telephone Encounter - Shanika Vidales RN - 01/10/2024 11:40 AM EDT Called left message to call office on VM [facility]07-25-[facility] Telephone encounter Note* Telephone Encounter - Daysi Roque PA-C - 01/10/2024 9:44 AM EDT Mateus did not show up for his pump refill this morning. Alarm date 01/14/2024. His phone went straight to . I left a message for him to call back as soon as possible to reschedule his appointment, preferably for tomorrow. Daysi Roque PA-C [facility] Work Phone: 1(342) 269-949007-24-2024 History of Present illness Narrative* Anay Roque MD - 01/09/2024 4:31 PM EDT Reason for Visit Patient presents with: Hospital Follow Up Mateus Manzano is a 38 year old male who presents here today for CPE. Health Maintenance Pneumococcal Vaccine(1 of 2 - PCV) Spirometry Depression Screening Anxiety Screening Hepatitis C Screening Hepatitis B Vaccine(1 of 3 - 19+ 3-dose series) Lipid Screening Covid-19 Vaccine( season) Annual PCP Team Chronic Disease Visit HPI Mateus is a 38-year-old gentleman with a past medical history of spinal cord injury at T7-T12 that make him paraplegic, chronic pain syndrome which made him have secondary male hypogonadism, tobacco abuse disorder, sleep apnea, neurogenic bladder from his spinal cord injury, recurrent UTIs, factor VLeiden positivity, obesity. He was in the ED or at [facility] on 01/02/2024 and was discharged a couple days later on p.o. levofloxacin. He was admitted for pneumonia, he had SIRS positive, he was tachycardic, was febrile with a leukocytosis of 16 and he had bilateral lower lobes pneumonia. He had a fever of 105 and needed ice baths to help him sleep. He was discharged the next day on Levaquin and Medrol Dosepak. No albuterol inhaler was given. He notes today that he has been feeling very tight in his [place] and off. He did complete the antibiotic and the prednisone taper He has lost a lot of weight recently. Does not eat as much, he goes out and spends his time outsidea lot. In the winter. 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 He is always trying to do something. For the back pain he has done some RFA, has taken morphine tizanidine, No problem-specific Assessment & Plan notes found for this encounter. PAST MEDICAL HISTORY Diagnosis Date Asthma 08/05/2021 Clotting disorder ([facility]) HUGH-1 DVT (deep venous thrombosis) ([facility]) 2012 ED (erectile dysfunction) Factor 5 Leiden mutation, heterozygous ([facility]) History of spinal cord injury 03/03/2015 Lower urinary tract infectious disease Methylenetetrahydrofolate reductase (MTHFR) gene mutation MRSA (methicillin resistant Staphylococcus aureus) 10/2012 spine Neurogenic bladder self straight catheterization KARAN (obstructive sleep apnea) pt never got a cpap; pt unsure if he needed one KARAN (obstructive sleep apnea) 08/05/2021 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 Recurrent UTI Sepsis ([facility]) 02/20/2021 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[facility]) PAST SURGICAL HISTORY Procedure Laterality Date IMPLTJ/RPLCMT ITHCL/EDRL DRUG NFS PRGRBL PUMP 03/02/2015 SynchroMed II, 40 ml pump with catheter tip at T9 - Informed consent sigend on 03/03/15 (paper form) IMPLTJ/RPLCMT ITHCL/EDRL DRUG NFS PRGRBL PUMP 10/13/2016 Revision of ITB catheter due to malfunction PAST SURGICAL HISTORY OF 11/09/2012 laminectomy T-4-T-12 PAST SURGICAL HISTORY OF 2002 ORIF with pins right hand PAST SURGICAL HISTORY OF 2012 filter placement for DVT PAST SURGICAL HISTORY OF percutaneous vascular procedure PAST SURGICAL HISTORY OF neck surgery REVISE MEDIAN N/CARPAL TUNNEL SURG Bilateral 2019 FAMILY HISTORY Problem Relation Age of Onset Diabetes Father other (factor v leiden) Father homozigus carries mthfr other (factor v leiden) Mother homozigus carries pie 1 Cancer Paternal Grandfather Heart disease Paternal Grandfather Cancer Paternal Grandmother leukemia Heart Paternal Grandmother Anesthesia Problems No Family History Social History Tobacco Use Smoking status: Every Day Packs/day: 1.00 Years: 18.00 Additional pack years: 0.00 Total pack years: 18.00 Types: Cigarettes Smokeless tobacco: Former Types: Chew Quit date: 01/19/2005 Vaping Use Vaping Use: Never used Substance Use Topics Alcohol use: Yes Comment: rarely Drug use: No Past medical history, appointments, medications, allergies reviewed. Pertinent Lab/Diagnostic Studies are reviewed and discussed today Current Outpatient Medications: oxytocin osorio 50 unit (CPD) lubiprostone (AMITIZA) 24 mcg capsule clomiPHENe (CLOMID) 50 mg tablet Tadalafil (CIALIS) 5 mg tablet sildenafil (REVATIO) 20 mg tablet XARELTO 20 mg tablet diclofenac, EC, (VOLTAREN) 25 mg EC tablet ondansetron orally disintegrating (ZOFRAN ODT) 4 mg disintegrating tablet hydrOXYzine pamoate (VISTARIL) 25 mg capsule morphine SR (MS CONTIN, ORAMORPH SR) 15 mg 12 hr tablet acetaminophen (TYLENOL EXTRA STRENGTH) 500 mg tablet albuterol HFA (PROVENTIL HFA, VENTOLIN HFA) 90 mcg/actuation inhaler baclofen (LIORESAL) 10 mg tablet baclofen, LIORESAL, (LIORESAL) 2,000 mcg/mL injection docusate sodium (COLACE) 100 mg capsule Pregabalin (LYRICA) 200 mg capsule tiZANidine (ZANAFLEX) 2 mg tablet lidocaine (XYLOCAINE) 5 % ointment Current Facility-Administered Medications: ondansetron (PF) 4 mg injection (ZOFRAN) midazolam (PF) 2 mg injection (VERSED) Review of Systems CONSTITUTIONAL: No fevers, chills, nightsweats, unintended weight loss HEENT: Denies frequent or severe heaches, nasal congestion/sinus symptoms, problematic allergy problems. EYES: No diplopia or blurry vision. CARDIOVASCULAR: No chest pain, dyspnea, palpitations, orthopnea, PND, ankle edema. PULM: No dyspnea, unexplained cough. GI: No dysphagia/odynophagia, problematic reflux, constipation, diarrhea, changes in stool habits, hematochezia, melena. : No new urinary complaints, including dysuria, gross hematuria or pyuria. NEURO: No new balance problems, peripheral weakness/paresthesias or numbness of concern. MUSC-SKEL: No new joint pain, swelling, or erythema. PSY: No concerns regarding depression, anxiety or panic. INTEGUMENTARY: No new skin changes (rash, new or changing mole, new growth) Physical Exam BP 126/80 Pulse 93 Resp 16 SpO2 94% General appearance: Well appearing, alert, in no acute distress, well-hydrated, well nourished. Skin: Skin color, texture, turgor normal, no suspicious rashes or lesions Head: Normocephalic, no masses, lesions, tenderness or abnormalities Eyes: Anicteric sclera. Pupils are equally round and reactive to light. Extraocular movements are intact. Ears: External ears normal, canals clear Nose/Sinuses: Nares normal, septum midline, mucosa normal, no drainage or sinus tenderness Oropharynx: Lips, mucosa, and tongue normal, teeth and gums normal, oropharynx normal Neck: Supple, no adenopathy; thyroid symmetric, normal size, no bruits Back: Normal exam Lungs: Lungs clear to auscultation. No wheezing, rhonchi, rales Heart: RRR without murmur, gallop, or rubs. No ectopy Abdomen: Normal abdominal exam, Abdomen soft, non-tender. Bowel sounds normal. No masses, organomegaly Extremities: No deformities, edema, skin discoloration, clubbing or cyanosis. Good capillary refill. Musculoskeletal: No joint swelling, deformity, or tenderness Peripheral pulses: Normal Neuro: Gait normal. Reflexes normal and symmetric. Sensation grossly intact. ASSESSMENT/PLAN: 1. Vitamin D deficiency - ICD9: 268.9, ICD10: E55.9 (primary diagnosis) - VITAMIN D 25 HYDROXY 2. Encounter for immunization - ICD9: V03.89, ICD10: Z23 3. Vitamin B12 deficiency - ICD9: 266.2, ICD10: E53.8 - VITAMIN B12 4. Hyperlipidemia, mixed - ICD9: 272.2, ICD10: E78.2 - LIPID PANEL BASIC 5. Prediabetes - ICD9: 790.29, ICD10: R73.03 - COMPREHENSIVE METABOLIC PANEL - HEMOGLOBIN A1C 6. Iron deficiency - ICD9: 280.9, ICD10: E61.1 - IRON AND TIBC - FERRITIN - COMPLETE BLOOD COUNT AND DIFFERENTIAL 7. Spinal cord injury, T7-T12 (HCC) - ICD9: 952.15, ICD10: S24.103A Reviewed his blood work explained to him and answered questions he had with regards to the way he is feeling. Spent a lot of time talking about his tobacco abuse disorder and his excessive caffeine use in the form of 2 red bulls every day. He takes these in the morning. He does struggle to sleep, he does bronchoconstriction currently and he still continues to smoke. He spent some time discussing about heavy metals in his body. We discussed that the obvious issues of caffeine and smoking are bigger problem right now and we can send him for functional medicine evaluation if he is concerned about heavy metals. He lives in a new home that does not have lead pipes. He does work a lot with his because but we discussed that that should not be the reason for him to develop these heavy metal toxicity because nothing is absorbed in his skin. Anay Roque MD documented in this encounterAden[facility]07-24-[facility]24 [facility]07-18-[facility]24 [facility] Medical Records Department [address] [place] [address] Discharge Summary 01/03/24 1702 MR#: [id number] Acct: [id number] Name: MATEUS MANZANO Rep #: [id number] : 1985 38 From: Pop Dahl MD PCP: Dr. Anay Roque MD Status:DIS IN [id number] Prov[facility] Date of Admission: 01/02/24 Primary Care Physician: Dr. Anay Roque MD Reason For Visit: PNEUMONIA Diagnosis Discharge Diagnosis (1) Sepsis: Status: Acute Code(s): A41.9 - Sepsis, unspecified organism (2) Pneumonia: Status: Acute Code(s): J18.9 - Pneumonia, unspecified organism Medications at Discharge Home Medications baclofen 20 mg tablet 10 mg PO BID spasms 03/18/13 morphine 30 mg tablet,extended release 15 mg PO Q12H pain 03/18/13 pregabalin 150 mg capsule (Lyrica) 200 mg PO BID nerve pain 08/31/15 rivaroxaban 20 mg tablet (Xarelto) 20 mg PO DAILY blood thinner 08/31/15 tizanidine 2 mg capsule (Zanaflex) 2 mg PO BID muscle relaxer 02/18/21 clomiphene citrate 50 mg tablet (Serophene) 50 mg PO QODAY Testosterone 11/14/21 hydroxyzine pamoate 25 mg capsule 25 mg PO TID PRN PRN Anxiety #30 caps 11/14/21 prednisone 20 mg tablet 60 mg (3 x 20 mg) PO DAILY inflammation #15 tabs 11/14/21 diclofenac sodium 50 mg tablet,delayed release 50 mg PO BID PRN PRN pain 01/02/24 levofloxacin 750 mg tablet 750 mg PO DAILY 6 days #6 tabs 01/03/24 Hospital Course Operations None Procedures None Summary of Care Provided Minutes Spent on Discharge: 34 Hospital Course: Per HPI: MATEUS MANZANO, is a 38 M who presents from home with shortness of breath and fever. Patient was having some back pain. Patient was feeling okay until today where he became very lethargic, febrile and dyspneic. Presented to the emergency room and he underwent a workup that showed that he had bilateral pneumonia. He was febrile with a temp of 40.1 Celsius, tachycardic in the 120s, tachypneic to 26. He received vancomycin and cefepime in the emergency room. Patient has not been hospitalized anywhere recently. Patient has never had pneumonia before. Hospital Course: 1. Bacterial pneumonia with acute hypoxia???38-year-old male who is a paraplegic presented to the hospital with signs and symptoms of pneumonia. Based on SIRS criteria he was septic however based on his insurance he is not, he was tachycardic as well as febrile to over 102 with a leukocytosis of 16. Infectious workup so far demonstrated possible early pneumonia on chest x- ray. UA was unremarkable and so far urine culture demonstrates 11-25,000 CFU for E. coli which should be treated with Levaquin. He has a history of allergies to Zosyn so was initially placed on meropenem and azithromycin. This was transitioned to Levaquin which she was given an oral dose today prior to discharge. He was feeling much better today after he received IV fluids he did have some dehydration as evidenced by his slight increase in his creatinine though not an COURT, as well as his erythrocytosis to 18 and improved to 16 on the day of discharge. Renal function also improved to 1.8. He was feeling much better today and was able to come off of his oxygen and did not require any at rest or with any type of activity that he would normally do including getting in and out of his wheelchair. I discussed with him the plan for possible discharge today and he expressed understanding of the risk benefits of going home and would like to go home today. Will plan for Levaquin for another 6 days to complete treatment. 2. 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 His home medications were continued where appropriate. It was discussed with him that given his history of VTE in the presence of his MTHFR mutation that he should evaluate with physician whether or not he should be on long-term hormonal therapy for his low testosterone. He was advised to hold this medication. Physical Exam Narrative General: Alert, Oriented x3, Cooperative, No apparent distress HEENT: Atraumatic, PERRLA, EOMI, Normocephalic Oral: Moist Mucosa Neck: Supple, No JVD Lungs: Diminished, Normal air movement, No rhonchi, No wheeze, No rales Cardiovascular: Regular rate, Regular Rhythm, Normal S1, Normal S2, No murmurs Abdomen: Soft, Non Tender, Non-Distended, No Hepato-splenomegaly Extremities: No edema, Capillary Refill Less than 3 Seconds Skin: No rashes, No breakdown Musculoskeletal: No Tenderness to Palpation of Joints or Extremities Neurological: Neuroexam is at baseline with upper extremity strength. Sensation in his upper extremities Psych/Mental Status: Normal Affect, Appropriate Weight / BMI Weight Weight: 293 lb 10.491 oz Body Mass Index (BMI) 35.7 ABG / Lab / Microbiology Data 01/03/24 05:30 01/02 (more content not included)...[facility]06-07-2024 History of Present illness Narrative* Luda Armas MD - 11/23/2023 3:00 PM EDT Images from the original note were not included. [facility] UROLOGY VIRTUAL ESTABLISHED PATIENT CLINIC NOTE PATIENT INFO: Mateus Manzano PCP: Anay Roque MD UROLOGY DIAGNOSES: 1. 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 Erectile dysfunction, unspecified erectile dysfunction type - ICD9: 607.84, ICD10: N52.9 3. Hypogonadism in male - ICD9: 257.2, ICD10: E29.1 CHIEF COMPLAINT: Low T HPI: Patient returns for continuing evaluation and management. Continues to have anorgasmia/anejaculation Cont Cialis 5mg daily with Viagra boost Did not get a chance to talk to sex therapy Prev Note: Cont Cialis 5mg daily Viagra PRN Cont Clomid TIW T labs reviewed Will stop cabergoline, continues to have anejaculation, but not bothered by it VV in 6 mo, labs prior PMHx/PSHx: see above, otherwise unchanged Rx: reviewed and unchanged ROS: see above, otherwise unchanged Labs: Latest Ref Rng 11/21/2023 Testosterone 193 - 824 ng/dL 746 Hematocrit 39.0 - 51.0 % 55.9 (H) PSA <2.60 ng/mL 0.82 Legend: (H) High Imaging: None MEDICATIONS: Current Outpatient Medications Medication Sig lubiprostone (AMITIZA) 24 mcg capsule Take 1 capsule by mouth two times a day with meals. clomiPHENe (CLOMID) 50 mg tablet Take 1 tablet by mouth three times a week. Tadalafil (CIALIS) 5 mg tablet Take 1 pill daily sildenafil (REVATIO) 20 mg tablet TAKE 1 TABLET BY MOUTH DIRECTED (may take up to 5 (FIVE) TABLETS 1 (ONE) hour prior to sexual activity) XARELTO 20 mg tablet Take 1 tablet by mouth once daily. diclofenac, EC, (VOLTAREN) 25 mg EC tablet Take 1 tablet by mouth twice daily. ondansetron orally disintegrating (ZOFRAN ODT) 4 mg disintegrating tablet Take 1 tablet by mouth every 8 hours as needed for nausea/vomiting. hydrOXYzine pamoate (VISTARIL) 25 mg capsule Take 1 capsule by mouth three times daily as needed for itching/rash or anxiety. morphine SR (MS CONTIN, ORAMORPH SR) 15 mg 12 hr tablet Take 1 tablet by mouth every 12 hours for 5days. acetaminophen (TYLENOL EXTRA STRENGTH) 500 mg tablet Take 2 tablets by mouth every 6 hours as needed for pain. albuterol HFA (PROVENTIL HFA, VENTOLIN HFA) 90 mcg/actuation inhaler Inhale 2 Puffs as instructed every 4 hours as needed for wheezing/shortness of breath. baclofen (LIORESAL) 10 mg tablet Take 10 mg by mouth twice daily. baclofen, LIORESAL, (LIORESAL) 2,000 mcg/mL injection [employer] ITB refill Kit #[id number], Lioresal 2000mcg/ml, 40 ml pump to be refilled as directed. docusate sodium (COLACE) 100 mg capsule Take 100 mg by mouth twice daily. Pregabalin (LYRICA) 200 mg capsule Take 200 mg by mouth twice daily. tiZANidine (ZANAFLEX) 2 mg tablet Take 2 mg by mouth twice daily. lidocaine (XYLOCAINE) 5 % ointment Apply to affected area as needed. Current Facility-Administered Medications Medication Dose Route Frequency ondansetron (PF) 4 mg injection (ZOFRAN) 4 mg INTRAVENOUS PRN midazolam (PF) 2 mg injection (VERSED) 2 mg INTRAVENOUS PRN PHYSICAL EXAM: There were no vitals taken for this visit. There is no height or weight on file to calculate BMI. General: Well masculinized, well nourished male Psych: euthymic, NAD Neuro: A&Ox3 DIAGNOSES: 1. 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 Erectile dysfunction, unspecified erectile dysfunction type - ICD9: 607.84, ICD10: N52.9 3. Hypogonadism in male - ICD9: 257.2, ICD10: E29.1 IMPRESSION/PLAN: T labs reviewed Cont Clomid - UCP, helps with energy and weight Cont Cialis 5mg daily Viagra PRN Would like to see Dr. Vilchis re sex therapy if no success with oxytocin Trial of Oxytocin RTO 6 mo, labs prior I spent 20 minutes in the visit, with more than 50% of the total [id number] time of the visit in counseling / coordination of care. I have communicated my name and active licensure. The patient's identity and physical location wereverified at the time of this visit. Either the patient or their legal inside account representative has been informed of the risks and benefits of -- and alternatives to -- treatment through a remote evaluation andconsents to proceed with the evaluation remotely. Luda Armas MD documented in this encounterAdena [facility]05-09-[facility]24 History of Present illness Narrative* Daysi Roque PA-C - 10/25/2023 10:26 AM EDT Images from the original note were not included. INTRATHECAL BACLOFEN THERAPY MANAGEMENT VISIT Patient accompanied by Self PAST SURGICAL HISTORY Procedure Laterality Date IMPLTJ/RPLCMT ITHCL/EDRL DRUG NFS PRGRBL PUMP 03/02/2015 SynchroMed II, 40 ml pump with catheter tip at T9 - Informed consent sigend on 03/03/15 (paper form) IMPLTJ/RPLCMT ITHCL/EDRL DRUG NFS PRGRBL PUMP 10/13/2016 Revision of ITB catheter due to malfunction PAST SURGICAL HISTORY OF 11/09/2012 laminectomy T-4-T-12 PAST SURGICAL HISTORY OF 2002 ORIF with pins right hand PAST SURGICAL HISTORY OF 2012 filter placement for DVT PAST SURGICAL HISTORY OF percutaneous vascular procedure PAST SURGICAL HISTORY OF neck surgery REVISE MEDIAN N/CARPAL TUNNEL SURG Bilateral 2020 HISTORY SINCE LAST VISIT: he notices more clonus as it's time to refill the pump. He's noticed significant improvement in back pain following nerve ablation. Patient Entered Data PROMIS No data to display Spasticity NRS 07/23/2023 04/16/2023 01/08/2023 11/15/2022 10/02/2022 -- Spasticity Level 4 Spasm Scale 1=Mild spasms induced by stimulation 1=Mild spasms induced by stimulation 1=Mild spasmsinduced by stimulation 1=Mild spasms induced by stimulation Spasm Scale - Trendable Number 1 1 1 1 Spasm Scale 11/15/2022 10/02/2022 08/31/2022 07/10/2022 06/16/2022 -- Spasm Frequency Mild spasms induced by stimulation Mild spasms induced by stimulation Mild spasms induced by stimulation Mild spasms induced by stimulation Mild spasms induced by stimulation Spasm Severity Mild Mild Mild Mild Mild Global Impression of Change 11/15/2022 10/02/2022 08/31/2022 07/10/2022 06/16/2022 -- Rehab global impression of change Much improved Minimally improved Much improved Much improved Muchimproved Pain related to the purpose of the visit: No 0 on a scale of 0 to 10 Safety concerns: domestic violence, living situation, and safety at home: No Driving issues: No - Risk of Falls: No, Change in bowel habits: No Change in urinary symptoms suggesting UTI: No Skin Integrity: Intact Review of Systems EXAM: Position: Sitting Strength Right Left Shoulder abduction 5 5 Elbow flexion 5 5 Elbow extension 5 5 Wrist extension 5 5 Fur Matcher strength (kg) 68 72 Hip flexion 2+ 1 Knee flexion 3+ 3 Knee extension 3+ 3 Plantarflexion 4 4 Dorsiflexion 3+ 1+ Spasticity Right Left Shoulder 0 0 Elbow flexors 0 0 Elbow extensors 0 0 Wrist flexors 0 0 Wrist extensors 0 0 Finger flexors 0 0 Finger extensors 0 0 Hip adductors 0 0 Knee extensors 0. 0 Knee flexors 1 1 Plantarflexors 1 1 Modified Dannie Scale 0 - No increase in tone 1 - Slight increase in tone (catch and release at end of ROM) 1+ - Slight increase in tone, manifested by a catch, followed by minimal resistance throughout remainder (less than half of ROM) 2 - Marked increase in tone through most of the ROM, but affected part(s) easily moved 3 - Considerable increase in tone; passive movement difficult 4 - Affected part(s) rigid in flexion or extension + Clonus in the ankle that was sustained. Spasms observed: RUE: no right upper extremity spasms LUE: no left upper extremity spasms RLE: right lower extremity spasms ankle clonus LLE: no left lower extremity spasms ankle clonus Timed 25 foot walk: N/A Assistance required: wheelchair Ambulation Index Score: 9 - Restricted to wheelchair, dependent for transfers Patient ID verified using 2 identifiers: Yes Procedure: Refill ITB pump UNIVERSAL PROTOCOL / SAFETY CHECKLIST Procedure to be Performed: baclofen pump refill Sign In: A Moment of CARE was completed. Personnel directly involved with the procedure wore the appropriate PPE (Personal Protective Equipment). Patient/Surrogate Stated/Verified: PATIENT VERIFIED(optional for EMERGENT procedures): Patient name, Date of , Relevant allergies, and The intended procedure Time Out Communication: Intended patient and procedure match the source documents. Consent documented and matches the intended procedure. Relevant labs, photos, and/or imaging studies have been reviewed. Correct side/site marked and visible. Medications required for procedure verified. Fire risk assessed and interventions discussed. No implant(s) inserted. Sign Out: SIGN OUT (optional for EMERGENT procedures): No specimen collected. Daysi Roque PA-C The risks, benefits and alternatives of the procedure were explained. Written Consent Obtained: yes - 12/09/2018 Current Drug: Lioresal Drug Concentration: 2000 mcg/ml Current Rate: 935.6 mcg/day Current Dose schedule: Simple continuous Vice President Of Finance Residual: 4.1 ml Actual Residual: 7 ml Pump Refilled: Yes Program Change: No New Drug: Lioresal Drug Concentration: 2000 mcg/ml New Rate: 935.6 mcg/day New Dose schedule: Simple continuous Bolus Given: No Estimated ZEB: 55 months (APR 2028) Mehan alarm date: 01/14/2024 Final telemetry read and agrees with planned programming: Yes The skin over the baclofen pump was prepped and draped under sterile conditions. The pump refill port was accessed using the needle provided in the [id number] kit. The reservoir was emptied, and refilled with 40 mL of medication as detailed below. The needle was withdrawn and a band-aid was applied over the puncture site. The pump was reprogrammed as detailed above. ASSESSMENT: SCI with severe spasticity. No change in spasticity noted on exam. Sustained clonus in bilateral lower extremities throughout the visit. He agreed to keep the pump rate the same. The pumpwas refilled without complications. PLAN: 1. ITB pump refilled 2. ITB rate kept the same Alarm date: 01/14/2024; refill on 01/10/2024 at 9am Mya Roque PA-C documented in this [facility]05-06-2024 Instructions* Patient Instructions* Ruslan Sherwood MD - 10/22/2023 10:18 AM EDT POST-BOTOX INJECTIONS You have received botulinum toxin injections today. The skin around the site of injections should be monitored for a couple of days. If redness or swelling occur, the skin should be examined by a health career advisor to rule out infection. Please contact our office via [employer] or by phone at [phone] any time with any questions or concerns. Please note that your next injections should not be scheduled less than 90 days from today. documented in this [facility]05-06-2024 History of Present illness Narrative* Ruslan Sherowod MD - 10/22/2023 9:45 AM EDT Images from the original note were not included. BOTULINUM TOXIN THERAPY Mary Kruger DO, PGY-5, Neuroimmunology Fellow, assisted in today's encounter. Patient accompanied by: self Current complaints / history since last visit: most recent botulinum toxin injections on 07/23/[address] Sherwood. He states that botox helps with spasms, pain, and ease of function in iliopsoas bilaterally. Effects of botulinum toxin lasted 10 weeks. He reports no increased weakness or other side effects from his injections. Illnesses / hospitalizations since the last visit: NA Other updates: last ITB refill was 08/09/23 with no change in rate. He had right leg erythema on right, was seen by urgent care and was treated for a cellulitis (08/09/23) Anticoagulation: on Xarelto (rivaroxaban), last took last night Antispasticity medications: None Home stretching/exercise routine: does regular stretching PT/OT: not currently involved in any formal PT at current, he has had recent worsening of back painwhich has limited him starting this BT therapy effective? Yes - stiffness, spasms/cramps and pain/discomfort Duration of benefit: 10 weeks Side effects: No Pain related to the purpose of the visit: No 0 on a scale of 0 to 10 Patient Entered Data PROMIS No data to display Spasticity NRS 07/23/2023 04/16/2023 01/08/2023 11/15/2022 10/02/2022 -- Spasticity Level 4 Spasm Scale 1=Mild spasms induced by stimulation 1=Mild spasms induced by stimulation 1=Mild spasmsinduced by stimulation 1=Mild spasms induced by stimulation Spasm Scale - Trendable Number 1 1 1 1 Spasm Scale 11/15/2022 10/02/2022 08/31/2022 07/10/2022 06/16/2022 -- Spasm Frequency Mild spasms induced by stimulation Mild spasms induced by stimulation Mild spasms induced by stimulation Mild spasms induced by stimulation Mild spasms induced by stimulation Spasm Severity Mild Mild Mild Mild Mild Global Impression of Change 11/15/2022 10/02/2022 08/31/2022 07/10/2022 06/16/2022 -- Rehab global impression of change Much improved Minimally improved Much improved Much improved Muchimproved Nutritional status: appetitive unchanged, swallowing without difficulty. Driving issues: NA Safety concerns regarding living situations and safety at home: No At risk for falling: Yes . Actual falls since last visit: frequency/number 0, 0 injuries. Examination: Strength Right Left Shoulder abduction 5 5 Elbow flexion 5 5 Elbow extension 5 5 Wrist extension 5 5 Fur Matcher strength (kg) 68 72 Hip flexion 2+ 1 Knee flexion 3+ 3 Knee extension 3+ 3 Plantarflexion 4 4 Dorsiflexion 3+ 1+ Spasticity Right Left Shoulder 0 0 Elbow flexors 0 0 Elbow extensors 0 0 Wrist flexors 0 0 Wrist extensors 0 0 Finger flexors 0 0 Finger extensors 0 0 Hip adductors 0 0 Knee extensors 0. 0 Knee flexors 1 1 Plantarflexors 1 1 Modified Dannie Scale 0 - No increase in tone 1 - Slight increase in tone (catch and release at end of ROM) 1+ - Slight increase in tone, manifested by a catch, followed by minimal resistance throughout remainder (less than half of ROM) 2 - Marked increase in tone through most of the ROM, but affected part(s) easily moved 3 - Considerable increase in tone; passive movement difficult 4 - Affected part(s) rigid in flexion or extension + Clonus in the ankle that was sustained. Spasms observed: RUE: no right upper extremity spasms LUE: no left upper extremity spasms RLE: right lower extremity spasms ankle clonus LLE: no left lower extremity spasms ankle clonus Timed 25 foot walk: N/A Assistance required: wheelchair Ambulation Index Score: 9 - Restricted to wheelchair, dependent for transfers UNIVERSAL PROTOCOL / SAFETY CHECKLIST Procedure to be Performed: botulinum toxin injections Sign In: A Moment of CARE was completed. Personnel directly involved with the procedure wore the appropriate PPE (Personal Protective Equipment). Patient/Surrogate Stated/Verified: PATIENT VERIFIED(optional for EMERGENT procedures): Patient name, Date of , Relevant allergies, and The intended procedure Time Out Communication: Intended patient and procedure match the source documents. Consent documented and matches the intended procedure. Relevant labs, photos, and/or imaging studies have been reviewed. Medications required for procedure verified. Sign Out: SIGN OUT (optional for EMERGENT procedures): No specimen collected. All instruments, equipment, possible retained foreign bodies accounted for. MaryDO Ruslan Schroeder MD The risks, benefits and alternatives of the procedure were explained. Written Consent Obtained: yes - 12/13/2020 Clinician(s) performing the injections: Ruslan Sherwood MD and Mary Reyez DO, Neuroimmunology Fellow Operations Examiner: Daysi Padgett RN The patient was positioned supine . Brand of toxin injected: Botox. After skin preparation with alcohol, a total dose of 175 units were injected as follows: Muscle Limb/Side Dose Guidance Comments Iliopsoas RLE 100 units EMG/US 2 sites - Images saved Iliopsoas LLE 75 units EMG/US 2 sites - Images saved Total Dose: 175 Dilution: 100 units / 2 ml Lot #: [id number] Exp: 11/2025 Units Discarded: 25 units The injections were well tolerated. Minimal bleeding occurred at the injection sites. Assessment: (S24.103A) Spinal cord injury at T7-T12 level ([facility]) (primary encounter diagnosis) (R25.2) Spasticity Mr. Manzano is known to our spasticity practice due to SCI with severe spasticity. Spasticity is managed and controlled with ITB Therapy. We have been targeting BT injections in the iliopsoas bilaterally to assist with management of reported stiffness in the hip flexors, albeit a shorter duration. The patient agreed on same total dose of 175 units, targeting the right hip flexors more than the left, which was helpful with last injections. Current ITB rate is controlling spasms. MS BT PRE AUTH Plan: 1 - Repeat injections in 3 months, 150-200 units. No changes made to dose or muscle selection today. In wheelchair, transfers independently. 2 - PT/OT: He has not resumed outpatient PT either for neuro or MSK related issues 3 - ITB pump management and refill here at the [facility], last fill 08/09/23, next refill 10/25/23 4 - A copy of the note will be sent via [employer] to: Dr. Del Roque Time spent with patient: 45 mn. Mary Reyez DO Neuroimmunology Fellow (PGY-5) In the service of staff, Dr. Ruslan Sherwood [facility] TEACHING PHYSICIAN NOTE OF PERSONAL INVOLVEMENT IN CARE I have reviewed the Progress Note obtained and documented by Mary DiMauro, Neuroimmunology Fellow. I personally participated in the joseph components and supervised the encounter. I have discussed the case and management of the patient's care with them, and agree with above assessment and plan. 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 Spasticity is well-managed with ITBtherapy and BoNT-A injections localized to the bilateral hip flexors. He was pleased with the results of the most recent injections. We injected a total of 175 units in the bilateral iliopsoas. Stretching and participation in PT was encouraged.He is scheduled for ITB pump refill in the upcoming weeks. Ruslan Sherwood MD [facility] Instructions* Patient Instructions* Tiffany Romero PA-C - 09/19/2023 12:04 PM EDT At least 64 oz of water Adequate fiber in diet Colon cleanse, Clear liquid diet, 1 10 oz bottle of magnesium citrate, drink second bottle around 1hour after Amitiza 24 mcg, stop relistor [facility] History of Present illness Narrative* Tiffany Romero PA-C - 09/19/2023 7:57 AM EDT VIRTUAL VISIT NEW PATIENT NAME: Mateus Manzano [facility] NO: [id number] DATE: 09/19/2023 REASON FOR VISIT Mateus Manzano [id number] has requested a video telemedicine initial consultation at the request of . Mateus Manzano verbalized informed consent to proceed with the video telemedicine initialconsultation. Mateus Manzano was informed that the details of this video visit would be recorded aspart of their electronic medical record. My recommendations will be conveyed to the consulting provider by way of shared electronic medical record, fax, or U.S. Mail. Patient location at time of call: [place] This visit was conducted as a virtual visit. I have communicated my name and active licensure. The patient's identity and physical location wereverified at the time of this visit. Either the patient or their legal inside account representative has been informed of the risks and benefits of -- and alternatives to -- treatment through a remote evaluation andconsents to proceed with the evaluation remotely. No chief complaint on file. PRESENTING COMPLAINT Mateus Manzano is a 38 year old male with PMHx of Chronic pain syndrome, Spinal cord injury c/b Parplegia and neurogenic bladder, Asthma, KARAN, Obesity, Factor V Leiden, PE on xarelto who presents forevaluation of chronic constipation. Patient with chronic constipation though has noticed worsening symptoms over the last 6 months to one year. Currently has not had a BM in one week, can go up to 3 weeks. Describes experiencing hard stools. Has tried movantic and docusate with no improvement. Has tried magnesium supplementation, Miralax multiple times daily with no improvement. Seen by [facility] who advised pt to try relistor, states he had no relief. Denies family hx of GI malignancy. Current smoker, reports occasional etoh use and denies illicit drug use. Notes scant blood when having a BM at times due to straining/hard stool. Denies significant blood loss. States weight fluctuates 10 pounds at baseline. Answers submitted by the patient for this visit: Review of Systems Gastroenterology (Submitted on 09/18/2023) Fever: No Chills: No Night Sweats: Yes Unitentional Weight Change: Yes A Cough: Yes Belly pain: Yes A feeling of fullness or have belly pain after eating: Yes Food getting stuck in your throat or chest after eating: No Nausea - that is, a feeling like you could vomit: Yes Regurgitation - that is, food or liquid coming back up into your throat or mouth without vomiting, or feel burning behind your breast bone: No Loss of appetite: Yes To throw up or vomit: No Blood in your stools: Yes Black tarry stools: No Loose or watery stools: No The feeling like you need to empty your bowels right away - that is, feel as if you would have an accident: No Bowel incontinence - that is, have an accident because you cannot make it to the bathroom in time: No Problems with straining while having bowel movements , hard or lumpy stools, or feel unfinished (that you have not passed all your stool): Yes Pain in rectum or anus during bowel movements: No Problems with jaundice - that is, yellow discoloration of your skin or eyes, now or in the past: No Problems with having to flush the toilet more than two times due to oily stool, or see stool floating with oil: No Last VV with GI 12/2020: NEW VIRTUAL VISIT I had a virtual visit with Mr. Manzano today. His local doctors have given his a diagnosis of constipation. PMH: Spinal cord injury t7-t12, neurogenic bladder, PE, baclofen pump, paraplegia HISTORY: For about 8 years dealt with constant contipation. Is in a wheelchair. Feels part of it is due to paralysis, with nerve damage. Since the original incident was a 1x week BM, recently changed to every3 weeks. When he does go, it is very hard, impacted, a struggle. Is having trouble losing weight. Has tried many things, does not believe to be related to fluid intake. Is sitting in at about 300lbs. No Weight loss, will sometimes have blood in the stool, not currently. Does have abdominal pain, sometimes last a few hour, sometimes a couple days, will go into back pain. Pain subsides with a BM. Will occasionally get nauseated, zofran helps this. No vomiting. Has Tried: Constulose- not taking currently; did not help Colace + Movantik- 2x daily +; has been on this since 2017 Probiotic + Mirialax- did not help, 2 doses daily, was on it for a year. Enemas- sometimes helfpful, sometimes not. Pain - MS contin 15 mg BID - Lyrica - oxycodone for breakthrough- 1-2 tabs daily - baclofen pump. 12/2019: CBC, CMP WNL IMPRESSION Mr. Flood is presenting today with opiod use induced constipation. Is on MS Contin, oxycodone, lyrica, and a baclofen pump since a spinal cord injury of T7- T12 in 2012. He has tried many different medications: constulose, miralax, colace, and movantik without relief or benefit. He was having a BM 1x a week, with recent change of going up to every 3 weeks. He is does endorse abdominal pain that is relieved with a BM. We are going to try relistor daily, after an initial clean out. If we are unable to manage his constipation with med changes we will put in a referral to Colorectal Surgery. Plan -Relistor daily 30 min before breakfast -Clean out with enema -Will consider Colorectal Surgery referral if no relief with medical management -Labs I spent more than 30 minutes [id number] with the patient and over half the time was devoted to counseling and/or coordination of care. Laureen Peñaloza APRN.TELEVISION DIRECTOR Attending Note I have personally performed a face to face assessment of the patient and have reviewed the HECTOR note. My joseph findings include: Agree with above. H/o severe OIC along with possible neurogenic bowel dysfunction from past thoracic spine trauma. PE on Xarelto. He is failing Movantik and has not responded to Miralax or lactulose to date with less than 1 bm weekly and frequent impactions. No alarm features at this time. Will tryan aggressive colon cleanse followed by daily Relistor if insurance allows. Could also consider a trial of Amitiza or even Symproic but would advise surgical consultation to discuss possible therapeutic colectomy if he exhausts these medical therapies. He agrees with this plan. Other additions or changes: As edited CURRENT MEDICATIONS Current Outpatient Medications Medication Sig Dispense Refill clomiPHENe (CLOMID) 50 mg tablet Take 1 tablet by mouth three times a week. 90 tablet 5 Tadalafil (CIALIS) 5 mg tablet Take 1 pill daily 90 tablet 5 sildenafil (REVATIO) 20 mg tablet TAKE 1 TABLET BY MOUTH DIRECTED (may take up to 5 (FIVE) TABLETS 1 (ONE) hour prior to sexual activity) 30 tablet 5 XARELTO 20 mg tablet Take 1 tablet by mouth once daily. 30 tablet 11 diclofenac, EC, (VOLTAREN) 25 mg EC tablet Take 1 tablet by mouth twice daily. ondansetron orally disintegrating (ZOFRAN ODT) 4 mg disintegrating tablet Take 1 tablet by mouth every 8 hours as needed for nausea/vomiting. 12 tablet 0 hydrOXYzine pamoate (VISTARIL) 25 mg capsule Take 1 capsule by mouth three times daily as needed for itching/rash or anxiety. 30 capsule 1 morphine SR (MS CONTIN, ORAMORPH SR) 15 mg 12 hr tablet Take 1 tablet by mouth every 12 hours for 5days. 10 tablet 0 acetaminophen (TYLENOL EXTRA STRENGTH) 500 mg tablet Take 2 tablets by mouth every 6 hours as needed for pain. 30 tablet 0 albuterol HFA (PROVENTIL HFA, VENTOLIN HFA) 90 mcg/actuation inhaler Inhale 2 Puffs as instructed every 4 hours as needed for wheezing/shortness of breath. baclofen (LIORESAL) 10 mg tablet Take 10 mg by mouth twice daily. baclofen, LIORESAL, (LIORESAL) 2,000 mcg/mL injection [employer] ITB refill Kit #[id number], Lioresal 2000mcg/ml, 40 ml pump to be refilled as directed. docusate sodium (COLACE) 100 mg capsule Take 100 mg by mouth twice daily. Pregabalin (LYRICA) 200 mg capsule Take 200 mg by mouth twice daily. tiZANidine (ZANAFLEX) 2 mg tablet Take 2 mg by mouth twice daily. lidocaine (XYLOCAINE) 5 % ointment Apply to affected area as needed. Current Facility-Administered Medications Medication Dose Route Frequency Provider Last Rate Last Admin ondansetron (PF) 4 mg injection (ZOFRAN) 4 mg INTRAVENOUS PRN Tankha, Eitan, DO midazolam (PF) 2 mg injection (VERSED) 2 mg INTRAVENOUS PRN Tankha, Eitan, DO 2 mg at 02/15/22 0807 Omgyvrizcmnb-Ybrqpqjlrr-Gzkrvl, Zosyn [Piperacillin-Tazobactam], Hydrocodone- Acetaminophen, and Codeine Recent Labs: CBC: WBC (k/uL) Date Value 01/12/2022 8.10 01/11/2022 7.12 Hematocrit (%) Date Value 05/19/2023 49.1 MCV (fL) Date Value 01/12/2022 91.7 Platelet Count (k/uL) Date Value 01/12/2022 206 Lymphocytes % (%) Date Value 01/12/2022 33.0 Hepatic Function Panel: Albumin (g/dL) Date Value 01/12/2022 2.8 (L) Bilirubin, Total (mg/dL) Date Value 01/07/2022 0.5 Alkaline Phosphatase (U/L) Date Value 01/07/2022 82 AST (U/L) Date Value 01/07/2022 30 ALT (U/L) Date Value 01/07/2022 33 Protein, Total (g/dL) Date Value 01/07/2022 6.9 PAST MEDICAL HISTORY PAST MEDICAL HISTORY Diagnosis Date Asthma 08/05/2021 Clotting disorder (HCC) HUGH-1 DVT (deep venous thrombosis) ([facility]) 2012 ED (erectile dysfunction) Factor 5 Leiden mutation, heterozygous (HCC) History of spinal cord injury 03/03/2015 Lower urinary tract infectious disease Methylenetetrahydrofolate reductase (MTHFR) gene mutation MRSA (methicillin resistant Staphylococcus aureus) 10/2012 spine Neurogenic bladder self straight catheterization KARAN (obstructive sleep apnea) pt never got a cpap; pt unsure if he needed one KARAN (obstructive sleep apnea) 08/05/2021 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 Recurrent UTI Sepsis (HCC) 02/20/2021 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[facility]) PAST SURGICAL HISTORY PAST SURGICAL HISTORY Procedure Laterality Date IMPLTJ/RPLCMT ITHCL/EDRL DRUG NFS PRGRBL PUMP 03/02/2015 SynchroMed II, 40 ml pump with catheter tip at T9 - Informed consent sigend on 03/03/15 (paper form) IMPLTJ/RPLCMT ITHCL/EDRL DRUG NFS PRGRBL PUMP 10/13/2016 Revision of ITB catheter due to malfunction PAST SURGICAL HISTORY OF 11/09/2012 laminectomy T-4-T-12 PAST SURGICAL HISTORY OF 2002 ORIF with pins right hand PAST SURGICAL HISTORY OF 2012 filter placement for DVT PAST SURGICAL HISTORY OF percutaneous vascular procedure PAST SURGICAL HISTORY OF neck surgery REVISE MEDIAN N/CARPAL TUNNEL SURG Bilateral 2019 FAMILY HISTORY FAMILY HISTORY Problem Relation Age of Onset Diabetes Father other (factor v leiden) Father homozigus carries mthfr other (factor v leiden) Mother homozigus carries pie 1 Cancer Paternal Grandfather Heart disease Paternal Grandfather Cancer Paternal Grandmother leukemia Heart Paternal Grandmother Anesthesia Problems No Family History SOCIAL HISTORY Social History Tobacco Use Smoking status: Every Day Packs/day: 1.00 Years: 18.00 Additional pack years: 0.00 Total pack years: 18.00 Types: Cigarettes Smokeless tobacco: Former Types: Chew Quit date: 01/19/2005 Vaping Use Vaping Use: Never used Substance Use Topics Alcohol use: Yes Comment: rarely Drug use: No ROS EyesNegative for vision changes, diplopia or epiphora. Ears, Mouth, nose, throat:No problems Cardiovascular: No Problems Respiratory: Negative for cough, wheezing and shortness of breath Gastrointestinal : SEE HPI Genitourinary: Negative Musuloskeletal: Normal Integumentary: no rashes, lesions, or jaundice Neurological: SEE HPI Endocrine: Negative for cold or heat intolerance, polyuria, polydipsia and goiter. Psychiatric: Cooperative and agreeable Allergic/ Immunologic: Negative All others negative PHYSICAL EXAMINATION General: alert and appropriate, in no distress and well-hydrated, well nourished, Psych: Appropriate mood and interaction Skin: no rash noted, Head: normocephalic, no abnormality or lesion noted, Eyes: EOMI, Ears: external ears normal without erythema or edema, Nose: external nose normal without rhinorrhea, Oropharynx: moist mucus membranes Neck: full ROM Respiratory: breathing non-labored, and no grunting/flaring/retractions, Chest: equal chest rise with normal respiratory effort, Abdomen: flat appearing. Visible protrusions or hernias: No Incisions/scars: None Areas of pain/tenderness: Denies Neuro: Patient seen sitting with normal appearing strength and coordination. No focal motor deficits. Assessment IMPRESSION Mateus Manzano is a 38 year old male with PMHx of Chronic pain syndrome, Spinal cord injury c/b Parplegia and neurogenic bladder, Asthma, KARAN, Obesity, Factor V Leiden, PE on xarelto who presents forevaluation of chronic constipation. Patient with chronic constipation, is paraplegic and has chronic opiate use along with baclofen pump. Has tried multiple OTC modalities, currently on movantik, previously attempted relistor with no relief. Has a BM once every 3 weeks. Has tried constulose, miralax, docusate prior in addition. PLAN Colon cleanse, clear liquid diet and two 10 oz bottles of magnesium citrate Discontinue reilstor and start Amitiza 24 mcg BID At least 64 oz of water Adequate fiber in diet Consider [facility] referral if no improvement Red flags for in person care discussed I spent a total of 25 minutes on the date of the service which included [id number] patient care, completing clinical documentation, counseling and educating the patient/family/caregiver, and ordering medications, tests, or procedures. Tiffany Romero PA-C September 19, 2023 8:05 AM documented in this encounterMelissa [place] [id number] History of Present illness Narrative* Merry Montenegro, DO - 08/09/2023 11:36 AM EST Images from the original note were not included. Urgent Care Note History of Present Illness: Mateus Manzano is a 37 year old male who presents today for chief complaint: Wound Check (Possible cellulitis on right leg/ankle area for past few days) Patient recently seen by express care for UTI and given Bactrim DS BID for 7 days. Currently on Day6 of antibiotic. UTI symptoms improved. Patient presents today with concern for right lower leg erythema he noticed a couple of days ago. erythema associated with warmth, and swelling. Not really painful. - Denies: fever, chills, nausea, vomiting. Review of Symptoms: Pertinent positives and negatives noted per HPI otherwise review of systems is negative. Past Medical History: PAST MEDICAL HISTORY Diagnosis Date Asthma 08/05/2021 Clotting disorder (HCC) HUGH-1 DVT (deep venous thrombosis) ([facility]) 2012 ED (erectile dysfunction) Factor 5 Leiden mutation, heterozygous ([facility]) History of spinal cord injury 03/03/2015 Lower urinary tract infectious disease Methylenetetrahydrofolate reductase (MTHFR) gene mutation MRSA (methicillin resistant Staphylococcus aureus) 10/2012 spine Neurogenic bladder self straight catheterization KARAN (obstructive sleep apnea) pt never got a cpap; pt unsure if he needed one KARAN (obstructive sleep apnea) 08/05/2021 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 Recurrent UTI Sepsis ([facility]) 02/20/2021 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[facility]) PAST SURGICAL HISTORY Procedure Laterality Date IMPLTJ/RPLCMT ITHCL/EDRL DRUG NFS PRGRBL PUMP 03/02/2015 SynchroMed II, 40 ml pump with catheter tip at T9 - Informed consent sigend on 03/03/15 (paper form) IMPLTJ/RPLCMT ITHCL/EDRL DRUG NFS PRGRBL PUMP 10/13/2016 Revision of ITB catheter due to malfunction PAST SURGICAL HISTORY OF 11/09/2012 laminectomy T-4-T-12 PAST SURGICAL HISTORY OF 2002 ORIF with pins right hand PAST SURGICAL HISTORY OF 2012 filter placement for DVT PAST SURGICAL HISTORY OF percutaneous vascular procedure PAST SURGICAL HISTORY OF neck surgery REVISE MEDIAN N/CARPAL TUNNEL SURG Bilateral 2020 Current Outpatient Medications Medication Sig sulfamethoxazole-trimethoprim (BACTRIM DS) 800-160 mg per tablet Take 1 tablet by mouth two times aday for 7 days. clomiPHENe (CLOMID) 50 mg tablet Take 1 tablet by mouth three times a week. Tadalafil (CIALIS) 5 mg tablet Take 1 pill daily sildenafil (REVATIO) 20 mg tablet TAKE 1 TABLET BY MOUTH DIRECTED (may take up to 5 (FIVE) TABLETS 1 (ONE) hour prior to sexual activity) XARELTO 20 mg tablet Take 1 tablet by mouth once daily. hydrOXYzine pamoate (VISTARIL) 25 mg capsule Take 1 capsule by mouth three times daily as needed for itching/rash or anxiety. baclofen (LIORESAL) 10 mg tablet Take 10 mg by mouth twice daily. Pregabalin (LYRICA) 200 mg capsule Take 200 mg by mouth twice daily. tiZANidine (ZANAFLEX) 2 mg tablet Take 2 mg by mouth twice daily. diclofenac, EC, (VOLTAREN) 25 mg EC tablet Take 1 tablet by mouth twice daily. ondansetron orally disintegrating (ZOFRAN ODT) 4 mg disintegrating tablet Take 1 tablet by mouth every 8 hours as needed for nausea/vomiting. morphine SR (MS CONTIN, ORAMORPH SR) 15 mg 12 hr tablet Take 1 tablet by mouth every 12 hours for 5days. acetaminophen (TYLENOL EXTRA STRENGTH) 500 mg tablet Take 2 tablets by mouth every 6 hours as needed for pain. albuterol HFA (PROVENTIL HFA, VENTOLIN HFA) 90 mcg/actuation inhaler Inhale 2 Puffs as instructed every 4 hours as needed for wheezing/shortness of breath. baclofen, LIORESAL, (LIORESAL) 2,000 mcg/mL injection [facility] ITB refill Kit #[id number], Lioresal 2000mcg/ml, 40 ml pump to be refilled as directed. docusate sodium (COLACE) 100 mg capsule Take 100 mg by mouth twice daily. lidocaine (XYLOCAINE) 5 % ointment Apply to affected area as needed. Current Facility-Administered Medications Medication Dose Route Frequency ondansetron (PF) 4 mg injection (ZOFRAN) 4 mg INTRAVENOUS PRN midazolam (PF) 2 mg injection (VERSED) 2 mg INTRAVENOUS PRN ALLERGIES Allergen Reactions Piperacillin-Tazoba* Hives Patient states he can tolerate penicillin and amoxicillin and has tolerated since the Zosyn reaction. There are no [facility] administrations of penicillins. Patient states he has tolerated oral cephalosporins in the past. There are outpatient prescription records for cephalexin listed in [facility]. Zosyn [Piperacillin* Hives Hydrocodone-Acetami* Other: See Comments headaches Codeine Intolerance, Other: See Comments nightmares Objective: BP 122/74 Pulse 91 Temp (Src) 97.8 (Temporal) Resp 20 Wt 280 lb (127.0kg) SpO2 96% Physical Exam Vitals reviewed. Constitutional: Appearance: Normal appearance. Musculoskeletal: Right lower leg: No swelling, deformity, lacerations, tenderness or bony tenderness. 1+ Edema present. Left lower leg: Normal. Legs: Comments: Medial aspect of right lower extremity with erythema, mild edema, and warmth. No drainagefrom this area. Nontender to palpation. Skin: General: Skin is warm. Capillary Refill: Capillary refill takes less than 2 seconds. Neurological: Mental Status: He is alert. Assessment and Plan: ASSESSMENT/PLAN: 1. Cellulitis of skin - ICD9: 682.9, ICD10: L03.90 - Patient is a partial paraplegic and does have a history of recurrent cellulitis every other year. Present evaluation is consistent with cellulitis. - Bactrim has worked well for him in the past. - Will extend to 14 days of treatment. - SULFAMETHOXAZOLE 800 MG-TRIMETHOPRIM 160 MG TABLET Advised to return if no improvement. Follow up with Anay Roque MD. PLEASE PROCEED TO NEAREST ED IF DEVELOPING: Any abrupt change in illness or concerning symptoms such as: fever greater than 102F which is not responding to Tylenol or Motrin, difficulty swallowing, difficulty tolerating oral intake due to nausea, and vomiting, shortness of breath, or any other concerning symptoms. Patient expressed understanding. Discussed risks, benefits, alternatives, and potential side effects of medications. Patient/Guardian expressed understanding and agreed with the plan. See patient instructions. Merry Montenegro DO documented in this encounterA[facility] History of Present illness Narrative* Daysi Roque PA-C - 08/09/2023 10:34 AM EST Images from the original note were not included. INTRATHECAL BACLOFEN THERAPY MANAGEMENT VISIT Patient accompanied by Self PAST SURGICAL HISTORY Procedure Laterality Date IMPLTJ/RPLCMT ITHCL/EDRL DRUG NFS PRGRBL PUMP 03/02/2015 SynchroMed II, 40 ml pump with catheter tip at T9 - Informed consent sigend on 03/03/15 (paper form) IMPLTJ/RPLCMT ITHCL/EDRL DRUG NFS PRGRBL PUMP 10/13/2016 Revision of ITB catheter due to malfunction PAST SURGICAL HISTORY OF 11/09/2012 laminectomy T-4-T-12 PAST SURGICAL HISTORY OF 2002 ORIF with pins right hand PAST SURGICAL HISTORY OF 2012 filter placement for DVT PAST SURGICAL HISTORY OF percutaneous vascular procedure PAST SURGICAL HISTORY OF neck surgery REVISE MEDIAN N/CARPAL TUNNEL SURG Bilateral 2020 HISTORY SINCE LAST VISIT: He notices slightly more spasms in the last week. He also has a UTI and is taking Bactrim. He's concerned he has cellulitis in the RLE. He also had a nerve block, which as helped the back pain. Patient Entered Data Ingeniatrics No flowsheet data found. Spasticity NRS 07/23/2023 04/16/2023 01/08/2023 11/15/2022 10/02/2022 Spasticity Level - - - 4 4 Spasm Scale 1=Mild spasms induced by stimulation 1=Mild spasms induced by stimulation 1=Mild spasmsinduced by stimulation - - Spasm Scale - Trendable Number 1 1 1 - - Spasm Scale 11/15/2022 10/02/2022 08/31/2022 07/10/2022 06/16/2022 Spasm Frequency Mild spasms induced by stimulation Mild spasms induced by stimulation Mild spasms induced by stimulation Mild spasms induced by stimulation Mild spasms induced by stimulation Spasm Severity Mild Mild Mild Mild Mild Global Impression of Change 11/15/2022 10/02/2022 08/31/2022 07/10/2022 06/16/2022 Rehab global impression of change Much improved Minimally improved Much improved Much improved Muchimproved Safety concerns: domestic violence, living situation, and safety at home: No Driving issues: No - Risk of Falls: No, Skin Integrity: as above Review of Systems EXAM: Position: Sitting Strength Right Left Shoulder abduction 5 5 Elbow flexion 5 5 Elbow extension 5 5 Wrist extension 5 5 Fur Matcher strength (kg) 64 64 Hip flexion 2+ 1 Knee flexion 3+ 3 Knee extension 3+ 3 Plantarflexion 4 4 Dorsiflexion 3+ 1+ Spasticity Right Left Shoulder 0 0 Elbow flexors 0 0 Elbow extensors 0 0 Wrist flexors 0 0 Wrist extensors 0 0 Finger flexors 0 0 Finger extensors 0 0 Hip adductors 0 0 Knee extensors 0. 0 Knee flexors 1 1 Plantarflexors 1 1 Modified Dannie Scale 0 - No increase in tone 1 - Slight increase in tone (catch and release at end of ROM) 1+ - Slight increase in tone, manifested by a catch, followed by minimal resistance throughout remainder (less than half of ROM) 2 - Marked increase in tone through most of the ROM, but affected part(s) easily moved 3 - Considerable increase in tone; passive movement difficult 4 - Affected part(s) rigid in flexion or extension + Clonus in the ankle that was sustained. Spasms observed: RUE: no right upper extremity spasms LUE: no left upper extremity spasms RLE: right lower extremity spasms ankle clonus LLE: no left lower extremity spasms ankle clonus Timed 25 foot walk: N/A Assistance required: wheelchair Ambulation Index Score: 9 - Restricted to wheelchair, dependent for transfers Patient ID verified using 2 identifiers: Yes Procedure: Refill ITB pump UNIVERSAL PROTOCOL / SAFETY CHECKLIST Procedure to be Performed: baclofen pump refill Sign In: A Moment of CARE was completed. Personnel directly involved with the procedure wore the appropriate PPE (Personal Protective Equipment). Patient/Surrogate Stated/Verified: PATIENT VERIFIED(optional for EMERGENT procedures): Patient name, Date of , Relevant allergies, and The intended procedure Time Out Communication: Intended patient and procedure match the source documents. Consent documented and matches the intended procedure. Relevant labs, photos, and/or imaging studies have been reviewed. Correct side/site marked and visible. Medications required for procedure verified. Fire risk assessed and interventions discussed. No implant(s) inserted. Sign Out: SIGN OUT (optional for EMERGENT procedures): No specimen collected. Daysi Roque PA-C The risks, benefits and alternatives of the procedure were explained. Written Consent Obtained: yes - 12/09/2018 Current Drug: Lioresal Drug Concentration: 2000 mcg/ml Current Rate: 935.6 mcg/day Current Dose schedule: Simple continuous Vice President Of Finance Residual: 5.9 ml Actual Residual: 8 ml Pump Refilled: Yes Program Change: No New Drug: Lioresal Drug Concentration: 2000 mcg/ml New Rate: 935.6 mcg/day New Dose schedule: Simple continuous Bolus Given: No Estimated ZEB: months (APR 2028) Mehan alarm date: 10/29/2023 Final telemetry read and agrees with planned programming: Yes The skin over the baclofen pump was prepped and draped under sterile conditions. The pump refill port was accessed using the needle provided in the 8566 kit. The reservoir was emptied, and refilled with 40 mL of medication as detailed below. The needle was withdrawn and a band-aid was applied over the puncture site. The pump was reprogrammed as detailed above. ASSESSMENT: SCI with severe spasticity. Spasticity remains under good control at the current rate with the exception of clonus that worsens around the time the pump needs refilled. He agreed to keep the pump rate the same. The pump was refilled without complications. It was recommended that he go to urgent care today or to call his PCP re: possible cellulitis in the RLE. PLAN: 1. ITB pump refilled 2. ITB rate kept the same Alarm date:10/29/2023; refill on 10/25/2023 at 10:30 Mya Roque PA-C documented in this encounterA[facility] Miscellaneous Notes* Telephone Encounter - Margy Styles APRN.CNP - 08/02/2023 8:03 AM EST Patient identified by name and date of . Urine culture result discussed with patient. Rx for Bactrim sent to his pharmacy. Margy Styles APRN.CNP documented in this encounterAdena [facility]02-14-[facility] History of Present illness Narrative* Fabrice Mack PA-C - 08/01/2023 9:35 AM EST Telemedicine Visit - Distance Health Virtual Visit Note Patient seen on VideoCare Video Visit platform. Location of patient: [place] I have communicated my name and active licensure. The patient's identity and physical location wereverified at the time of this visit. Either the patient or their legal inside account representative has been informed of the risks and benefits of -- and alternatives to -- treatment through a remote evaluation andconsents to proceed with the evaluation remotely. Mateus Manzano is a 37 year old year old male presents complaining of neck pain and shoulder pain The current back pain episode has been present for 4 days. Provoking factors: while carrying a heavy object The pain is located in upper back with radiation, to R shoulder . The pain is described as sharp The pain is rated as moderate The patient denies:* bowel incontinence and * bladder incontinence. Alleviating factors include zanaflex, icy hot, tylenol , ibuprofen with minimal relief. Pain is exacerbated by lifting arms Pertinent past medical history of back problems includes: Hx of T4-T12 paraplegic spinal cord injury pt PAST MEDICAL HISTORY Diagnosis Date Asthma 08/05/2021 Clotting disorder ([facility]) HUGH-1 DVT (deep venous thrombosis) ([facility]) 2012 ED (erectile dysfunction) Factor 5 Leiden mutation, heterozygous ([facility]) History of spinal cord injury 03/03/2015 Lower urinary tract infectious disease Methylenetetrahydrofolate reductase (MTHFR) gene mutation MRSA (methicillin resistant Staphylococcus aureus) 10/2012 spine Neurogenic bladder self straight catheterization KARAN (obstructive sleep apnea) pt never got a cpap; pt unsure if he needed one KARAN (obstructive sleep apnea) 08/05/2021 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 Recurrent UTI Sepsis ([facility]) 02/20/2021 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[facility]) PAST SURGICAL HISTORY Procedure Laterality Date IMPLTJ/RPLCMT ITHCL/EDRL DRUG NFS PRGRBL PUMP 03/02/2015 SynchroMed II, 40 ml pump with catheter tip at T9 - Informed consent sigend on 03/03/15 (paper form) IMPLTJ/RPLCMT ITHCL/EDRL DRUG NFS PRGRBL PUMP 10/13/2016 Revision of ITB catheter due to malfunction PAST SURGICAL HISTORY OF 11/09/2012 laminectomy T-4-T-12 PAST SURGICAL HISTORY OF 2002 ORIF with pins right hand PAST SURGICAL HISTORY OF 2012 filter placement for DVT PAST SURGICAL HISTORY OF percutaneous vascular procedure PAST SURGICAL HISTORY OF neck surgery REVISE MEDIAN N/CARPAL TUNNEL SURG Bilateral 2020 FAMILY HISTORY Problem Relation Age of Onset Diabetes Father other (factor v leiden) Father homozigus carries mthfr other (factor v leiden) Mother homozigus carries pie 1 Cancer Paternal Grandfather Heart disease Paternal Grandfather Cancer Paternal Grandmother leukemia Heart Paternal Grandmother Anesthesia Problems No Family History Social History Tobacco Use Smoking status: Every Day Packs/day: 1.00 Years: 18.00 Additional pack years: 0.00 Total pack years: 18.00 Types: Cigarettes Smokeless tobacco: Former Types: Chew Quit date: 01/19/2005 Vaping Use Vaping Use: Never used Substance Use Topics Alcohol use: Yes Comment: rarely Drug use: No Current Outpatient Medications Medication Sig clomiPHENe (CLOMID) 50 mg tablet Take 1 tablet by mouth three times a week. Tadalafil (CIALIS) 5 mg tablet Take 1 pill daily sildenafil (REVATIO) 20 mg tablet TAKE 1 TABLET BY MOUTH DIRECTED (may take up to 5 (FIVE) TABLETS 1 (ONE) hour prior to sexual activity) XARELTO 20 mg tablet Take 1 tablet by mouth once daily. diclofenac, EC, (VOLTAREN) 25 mg EC tablet Take 1 tablet by mouth twice daily. ondansetron orally disintegrating (ZOFRAN ODT) 4 mg disintegrating tablet Take 1 tablet by mouth every 8 hours as needed for nausea/vomiting. hydrOXYzine pamoate (VISTARIL) 25 mg capsule Take 1 capsule by mouth three times daily as needed for itching/rash or anxiety. morphine SR (MS CONTIN, ORAMORPH SR) 15 mg 12 hr tablet Take 1 tablet by mouth every 12 hours for 5days. acetaminophen (TYLENOL EXTRA STRENGTH) 500 mg tablet Take 2 tablets by mouth every 6 hours as needed for pain. albuterol HFA (PROVENTIL HFA, VENTOLIN HFA) 90 mcg/actuation inhaler Inhale 2 Puffs as instructed every 4 hours as needed for wheezing/shortness of breath. baclofen (LIORESAL) 10 mg tablet Take 10 mg by mouth twice daily. baclofen, LIORESAL, (LIORESAL) 2,000 mcg/mL injection [facility] ITB refill Kit #[id number], Lioresal 2000mcg/ml, 40 ml pump to be refilled as directed. docusate sodium (COLACE) 100 mg capsule Take 100 mg by mouth twice daily. Pregabalin (LYRICA) 200 mg capsule Take 200 mg by mouth twice daily. tiZANidine (ZANAFLEX) 2 mg tablet Take 2 mg by mouth twice daily. lidocaine (XYLOCAINE) 5 % ointment Apply to affected area as needed. Current Facility-Administered Medications Medication Dose Route Frequency ondansetron (PF) 4 mg injection (ZOFRAN) 4 mg INTRAVENOUS PRN midazolam (PF) 2 mg injection (VERSED) 2 mg INTRAVENOUS PRN ALLERGIES Allergen Reactions Piperacillin-Tazoba* Hives Patient states he can tolerate penicillin and amoxicillin and has tolerated since the Zosyn reaction. There are no Epic administrations of penicillins. Patient states he has tolerated oral cephalosporins in the past. There are outpatient prescription records for cephalexin listed in Epic. Zosyn [Piperacillin* Hives Hydrocodone-Acetami* Other: See Comments headaches Codeine Intolerance, Other: See Comments nightmares Video Exam (Examination performed via video enabled technology) General appearance: Alert, oriented, pleasant, in NAD :Yes Self guided palpation of upper back does not exhibit tenderness Spine Range of Motion: extension limited, flexionlimited, side bending limited ASSESSMENT/PLAN: 1. Neck pain - ICD9: 723.1, ICD10: M54.2 Will trial medrol dose pack for presumed muscle strain Will need to f/u in person for worsening or persistent pain. Diagnosis and treatment plan were discussed and questions were answered to the patient's satisfaction. Pt acknowledged understanding of concepts and follow up plan. Specific signs and symptoms that would indicate the need for higher level of care were discussed indetail warranting prompt ER evaluation. Seek urgent medical care for worsening facial pain, headache, cough, shortness of breath, wheezing,chest pain, palpitation, dizziness, nausea, vomiting, diarrhea, unable to drink fluid, leg or arm weakness, change in vision, or any other concerning symptoms. Fabrice Mack PA-C - Red flags discussed for need for in person care - All questions answered Fabrice Mack PA-C If you let us know who your primary care provider is, we will send them a notification of today s visit through our electronic medical records system. Since not all providers have access to our notifications, we strongly encourage you to share the following record of today s visit with your primarycare provider at your next visit. This will help in providing you the best care. If you do not have an established Primary Care physician and would like to continue care with a [facility] physician, please ask your provider to place a Establish PrimaryCare order. Use Earnest to manage your care, wherever you are, 08/01, on your mobile device or computer. Earnest connects you to [employer] so you can access all your health information in one place and also schedule and request virtual appointments with primary care providers. documented in this encounterAdena [facility]02-13-2024 History of Present illness Narrative* Sarah Tang APRN.TELEVISION DIRECTOR - 07/31/2023 10:29 AM EST This note was created using [employer]. Subjective Mateus Manzano is a 37 year old male. Patient was recently seen in [facility] on 06/30 and was treated for UTI. Patient reports he received a medication he is not used to and was concerned that UTI did not clear up because he still feels urgency and frequency. Patient self caths. Review of Systems Genitourinary: Positive for frequency and urgency. Negative for decreased urine volume, difficulty urinating, dysuria, flank pain, hematuria, penile discharge, penile pain and penile swelling. Objective BP 128/82 Pulse 78 Temp 36.5 C (97.7 F) (Tympanic) Resp 16 Wt 127 kg (280 lb) SpO2 95% BMI 34.08 kg/m Physical Exam Abdominal: Palpations: Abdomen is soft. Tenderness: There is no abdominal tenderness. There is no right CVA tenderness or left CVA tenderness. PAST MEDICAL HISTORY Diagnosis Date Asthma 08/05/2021 Clotting disorder ([facility]) HUGH-1 DVT (deep venous thrombosis) ([facility]) 2012 ED (erectile dysfunction) Factor 5 Leiden mutation, heterozygous ([facility]) History of spinal cord injury 03/03/2015 Lower urinary tract infectious disease Methylenetetrahydrofolate reductase (MTHFR) gene mutation MRSA (methicillin resistant Staphylococcus aureus) 10/2012 spine Neurogenic bladder self straight catheterization KARAN (obstructive sleep apnea) pt never got a cpap; pt unsure if he needed one KARAN (obstructive sleep apnea) 08/05/2021 other HUGH-1 gene Paraplegia following spinal cord injury ([facility]) 2012 Recurrent UTI Sepsis ([facility]) 02/20/2021 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[facility]) PAST SURGICAL HISTORY Procedure Laterality Date IMPLTJ/RPLCMT ITHCL/EDRL DRUG NFS PRGRBL PUMP 03/02/2015 SynchroMed II, 40 ml pump with catheter tip at T9 - Informed consent sigend on 03/03/15 (paper form) IMPLTJ/RPLCMT ITHCL/EDRL DRUG NFS PRGRBL PUMP 10/13/2016 Revision of ITB catheter due to malfunction PAST SURGICAL HISTORY OF 11/09/2012 laminectomy T-4-T-12 PAST SURGICAL HISTORY OF 2002 ORIF with pins right hand PAST SURGICAL HISTORY OF 2012 filter placement for DVT PAST SURGICAL HISTORY OF percutaneous vascular procedure PAST SURGICAL HISTORY OF neck surgery REVISE MEDIAN N/CARPAL TUNNEL SURG Bilateral 2019 ALLERGIES [id number], Zosyn [Piperacillin-Tazobactam], Hydrocodone-Acetaminophen, and Codeine MEDICATIONS clomiPHENe (CLOMID) 50 mg tablet^Take 1 tablet by mouth three times a week.^Disp: 90 tablet^Rfl: 5 Tadalafil (CIALIS) 5 mg tablet^Take 1 pill daily^Disp: 90 tablet^Rfl: 5 sildenafil (REVATIO) 20 mg tablet^TAKE 1 TABLET BY MOUTH DIRECTED (may take up to 5 (FIVE) TABLETS 1 (ONE) hour prior to sexual activity)^Disp: 30 tablet^Rfl: 5 XARELTO 20 mg tablet^Take 1 tablet by mouth once daily.^Disp: 30 tablet^Rfl: 11 diclofenac, EC, (VOLTAREN) 25 mg EC tablet^Take 1 tablet by mouth twice daily.^Disp: ^Rfl: ondansetron orally disintegrating (ZOFRAN ODT) 4 mg disintegrating tablet^Take 1 tablet by mouth every 8 hours as needed for nausea/vomiting.^Disp: 12 tablet^Rfl: 0 hydrOXYzine pamoate (VISTARIL) 25 mg capsule^Take 1 capsule by mouth three times daily as needed for itching/rash or anxiety.^Disp: 30 capsule^Rfl: 1 acetaminophen (TYLENOL EXTRA STRENGTH) 500 mg tablet^Take 2 tablets by mouth every 6 hours as needed for pain.^Disp: 30 tablet^Rfl: 0 albuterol HFA (PROVENTIL HFA, VENTOLIN HFA) 90 mcg/actuation inhaler^Inhale 2 Puffs as instructed every 4 hours as needed for wheezing/shortness of breath.^Disp: ^Rfl: baclofen (LIORESAL) 10 mg tablet^Take 10 mg by mouth twice daily.^Disp: ^Rfl: baclofen, LIORESAL, (LIORESAL) 2,000 mcg/mL injection^[facility] ITB refill Kit #[id number], Lioresal 2000mcg/ml, 40 ml pump to be refilled as directed.^Disp: ^Rfl: docusate sodium (COLACE) 100 mg capsule^Take 100 mg by mouth twice daily.^Disp: ^Rfl: Pregabalin (LYRICA) 200 mg capsule^Take 200 mg by mouth twice daily.^Disp: ^Rfl: tiZANidine (ZANAFLEX) 2 mg tablet^Take 2 mg by mouth twice daily.^Disp: ^Rfl: lidocaine (XYLOCAINE) 5 % ointment^Apply to affected area as needed.^Disp: ^Rfl: morphine SR (MS CONTIN, ORAMORPH SR) 15 mg 12 hr tablet^Take 1 tablet by mouth every 12 hours for 5days.^Disp: 10 tablet^Rfl: 0 FAMILY HISTORY Problem Relation Age of Onset Diabetes Father other (factor v leiden) Father homozigus carries mthfr other (factor v leiden) Mother homozigus carries pie 1 Cancer Paternal Grandfather Heart disease Paternal Grandfather Cancer Paternal Grandmother leukemia Heart Paternal Grandmother Anesthesia Problems No Family History Social History Tobacco Use Smoking status: Every Day Packs/day: 1.00 Years: 18.00 Additional pack years: 0.00 Total pack years: 18.00 Types: Cigarettes Smokeless tobacco: Former Types: Chew Quit date: 01/19/2005 Vaping Use Vaping Use: Never used Substance Use Topics Alcohol use: Yes Comment: rarely Drug use: No ASSESSMENT/PLAN: 1. Urinary frequency - ICD9: 788.41, ICD10: R35.0 - Encouraged patient to follow up with urologist - UA DIP, URINE (POC) - URINE CULTURE No medication given at this time. Discussed with patient plan to send urine for culture. Potential red flag symptoms discussed with the patient. Reviewed appropriate action plan to take if red flag symptoms occur. Patient agreeable to treatment plan. Adelaida Matthews Supervising provider was present and guided the care of the patient for the entire session on this date. All documentation was reviewed and agreed upon. Sarah Tang APRN.EUNICE documented in this encounterAden[facility]12-11-2023 Instructions* Patient Instructions* Jimena Kramer PA-C - 05/28/2023 10:25 AM EST Next ITB refill Aug 09 at 10:30 with Denise Roque PA-C,alarm date 08/17/23 documented in this encounterAdena [facility]12-11-2023 History of Present illness Narrative* Jimena Kramer PA-C - 05/28/2023 9:45 AM EST Images from the original note were not included. INTRATHECAL BACLOFEN THERAPY MANAGEMENT VISIT Patient accompanied by Self PAST SURGICAL HISTORY Procedure Laterality Date IMPLTJ/RPLCMT ITHCL/EDRL DRUG NFS PRGRBL PUMP 03/02/2015 SynchroMed II, 40 ml pump with catheter tip at T9 - Informed consent sigend on 03/03/15 (paper form) IMPLTJ/RPLCMT ITHCL/EDRL DRUG NFS PRGRBL PUMP 10/13/2016 Revision of ITB catheter due to malfunction PAST SURGICAL HISTORY OF 11/09/2012 laminectomy T-4-T-12 PAST SURGICAL HISTORY OF 2002 ORIF with pins right hand PAST SURGICAL HISTORY OF 2012 filter placement for DVT PAST SURGICAL HISTORY OF percutaneous vascular procedure PAST SURGICAL HISTORY OF neck surgery REVISE MEDIAN N/CARPAL TUNNEL SURG Bilateral 2020 HISTORY SINCE LAST VISIT: Mateus was last here for ITB pump refill on 03/21/23. At this time his ITBpump rate was not changed. He has had another repeat UTI and has finished course of antibiotics. Julianooes follow with urology. Reports he had a stye in his left eye which as resolved with Bactrim for his UTI. Reports he did not feel like his spasticity was worsened during this time. Reports urology put him back on clomide. Exercise / stretching / rehabilitation: Reports daily stretching exercises. Use of oral medications for spasticity: baclofen 10mg twice daily; tizanidine 2mg up to twice a day, Lyrica 200mg twice daily Patient Entered Data PROMIS No flowsheet data found. Spasticity NRS 04/16/2023 01/08/2023 11/15/2022 10/02/2022 10/02/2022 Spasticity Level - - 4 4 - Spasm Scale 1=Mild spasms induced by stimulation 1=Mild spasms induced by stimulation - - 1=Mild spasms induced by stimulation Spasm Scale - Trendable Number 1 1 - - 1 Spasm Scale 11/15/2022 10/02/2022 08/31/2022 07/10/2022 06/16/2022 Spasm Frequency Mild spasms induced by stimulation Mild spasms induced by stimulation Mild spasms induced by stimulation Mild spasms induced by stimulation Mild spasms induced by stimulation Spasm Severity Mild Mild Mild Mild Mild Global Impression of Change 11/15/2022 10/02/2022 08/31/2022 07/10/2022 06/16/2022 Rehab global impression of change Much improved Minimally improved Much improved Much improved Muchimproved Pain related to the purpose of the visit: No 0 on a scale of 0 to 10 Safety concerns: domestic violence, living situation, and safety at home: No Driving issues: N/A Risk of Falls: Yes, frequency no recent falls Change in bowel habits: No Change in urinary symptoms suggesting UTI: Recent UTI treated, reports feeling symptoms have improved Self Caths, Follows with urology, has frequent UTI's Skin Integrity: Intact Review of Systems EXAM: Position: Sitting Strength Right Left Shoulder abduction 5 5 Elbow flexion 5 5 Elbow extension 5 5 Wrist extension 5 5 Fur Matcher strength (kg) 62 64 Hip flexion 2+ 1 Knee flexion 3+ 3 Knee extension 3+ 3 Plantarflexion 4 4 Dorsiflexion 3+ 1+ Spasticity Right Left Shoulder 0 0 Elbow flexion 0 0 Elbow extension 0 0 Wrist flexion 0 0 Wrist extension 0 0 Finger flexion 0 0 Finger extension 0 0 Hip adduction 0 0 Knee extension 0. 0 Knee flexion 0 0 Plantarflexion 1 1 Modified Dannie Scale 0 - No increase in tone 1 - Slight increase in tone (catch and release at end of ROM) 1+ - Slight increase in tone, manifested by a catch, followed by minimal resistance throughout remainder (less than half of ROM) 2 - Marked increase in tone through most of the ROM, but affected part(s) easily moved 3 - Considerable increase in tone; passive movement difficult 4 - Affected part(s) rigid in flexion or extension + Clonus in the ankle that was sustained. Spasms observed: RUE: no right upper extremity spasms LUE: no left upper extremity spasms RLE: right lower extremity spasms ankle clonus LLE: no left lower extremity spasms ankle clonus Timed 25 foot walk: N/A Assistance required: wheelchair Ambulation Index Score: 9 - Restricted to wheelchair, dependent for transfers Patient ID verified using 2 identifiers: Yes Procedure: Refill ITB pump UNIVERSAL PROTOCOL / SAFETY CHECKLIST Procedure to be Performed: Refill ITB pump Sign In: A Moment of CARE was completed. Personnel directly involved with the procedure wore the appropriate PPE (Personal Protective Equipment). Special equipment: Swapbox Pump [place] Patient/Surrogate Stated/Verified: PATIENT VERIFIED(optional for EMERGENT procedures): Patient name, Date of , Relevant allergies, and The intended procedure Time Out Communication: Intended patient and procedure match the source documents. Consent documented and matches the intended procedure. Relevant labs, photos, and/or imaging studies have been reviewed. Correct side/site marked and visible. Medications required for procedure verified. No fire risk assessment and interventions applicable. Sign Out: SIGN OUT (optional for EMERGENT procedures): No specimen collected. Jimena Kramer PA-C The risks, benefits and alternatives of the procedure were explained. Written Consent Obtained: yes - 12/09/2018 Current Drug: Lioresal Drug Concentration: 2000 mcg/ml Current Rate: 935.6 mcg/day Current Dose schedule: Simple continuous Vice President Of Finance Residual: 8.3 ml Actual Residual: 10 ml Pump Refilled: Yes Program Change: No New Drug: Lioresal Drug Concentration: 2000 mcg/ml New Rate: 935.6 mcg/day New Dose schedule: Simple continuous Bolus Given: No Estimated ZEB: 60 months (APR 2028) Mehan alarm date: 08/17/2023 Final telemetry read and agrees with planned programming: Yes The skin over the baclofen pump was prepped and draped under sterile conditions. The pump refill port was accessed using the needle provided in the [facility] ITB Refill kit #8566, Lioresal 2,000mcg/ml, 40ml kit. The reservoir was emptied, and refilled with 40 mL of medication as detailed below. The needle was withdrawn and a band-aid was applied over the puncture site. The pump was reprogrammed as detailed above. Medication lot #: [id number] Exp. Date: 07/2027 ASSESSMENT: (S24.103A) Spinal cord injury at T7-T12 level ([facility]) (primary encounter diagnosis) (G82.20) Paraplegia ([facility]) (M62.838) Muscle spasticity Spinal cord injury with severe spasticity. Spasticity has been stable. We agreed to keep his pump rate the same. ITB pump was refilled today without immediate complications. PLAN: 1. ITB pump was refilled 2. ITB rate was not changed Next ITB refill Aug 09 at 10:30 with Denise Roque PA-C at [facility],alarm date 08/17/23 Jimena Kramer PA-C documented in this encounterAdena [facility]12-08-2023 History of Present illness Narrative* Luda Armas MD - 05/25/2023 11:01 AM EST Images from the original note were not included. [facility] UROLOGY ESTABLISHED PATIENT CLINIC NOTE PATIENT INFO: Mateus Manzano PCP: Anay Roque MD UROLOGY DIAGNOSES: 1. 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 Erectile dysfunction, unspecified erectile dysfunction type - ICD9: 607.84, ICD10: N52.9 3. Hypogonadism in male - ICD9: 257.2, ICD10: E29.1 CHIEF COMPLAINT: Low T HPI: Patient returns for continuing evaluation and management. Was prev on Clomid, stopped due to lack of coverage Helped some with ED as well Continues to have anorgasmia/anejaculation Cont Cialis 5mg daily with Viagra boost Did not get a chance to talk to sex therapy Prev Note: Cont Cialis 5mg daily Viagra PRN Cont Clomid TIW T labs reviewed Will stop cabergoline, continues to have anejaculation, but not bothered by it VV in 6 mo, labs prior PMHx/PSHx: see above, otherwise unchanged Rx: reviewed and unchanged ROS: see above, otherwise unchanged Labs: Component Latest Ref Rng & Units 05/19/2023 Testosterone 193 - 824 ng/dL 347 PSA <2.60 ng/mL 1.30 Hematocrit 39.0 - 51.0 % 49.1 Imaging: None MEDICATIONS: Current Outpatient Medications Medication Sig sulfamethoxazole-trimethoprim (BACTRIM DS) 800-160 mg per tablet Take 1 tablet by mouth two times aday for 7 days. XARELTO 20 mg tablet Take 1 tablet by mouth once daily. diclofenac, EC, (VOLTAREN) 25 mg EC tablet Take 1 tablet by mouth twice daily. ondansetron orally disintegrating (ZOFRAN ODT) 4 mg disintegrating tablet Take 1 tablet by mouth every 8 hours as needed for nausea/vomiting. hydrOXYzine pamoate (VISTARIL) 25 mg capsule Take 1 capsule by mouth three times daily as needed for itching/rash or anxiety. acetaminophen (TYLENOL EXTRA STRENGTH) 500 mg tablet Take 2 tablets by mouth every 6 hours as needed for pain. albuterol HFA (PROVENTIL HFA, VENTOLIN HFA) 90 mcg/actuation inhaler Inhale 2 Puffs as instructed every 4 hours as needed for wheezing/shortness of breath. baclofen (LIORESAL) 10 mg tablet Take 10 mg by mouth twice daily. baclofen, LIORESAL, (LIORESAL) 2,000 mcg/mL injection Medtronic ITB refill Kit #8566, Lioresal 2000mcg/ml, 40 ml pump to be refilled as directed. docusate sodium (COLACE) 100 mg capsule Take 100 mg by mouth twice daily. Pregabalin (LYRICA) 200 mg capsule Take 200 mg by mouth twice daily. tiZANidine (ZANAFLEX) 2 mg tablet Take 2 mg by mouth twice daily. lidocaine (XYLOCAINE) 5 % ointment Apply to affected area as needed. clomiPHENe (CLOMID) 50 mg tablet Take 1 tablet by mouth three times a week. Tadalafil (CIALIS) 5 mg tablet Take 1 pill daily sildenafil (REVATIO) 20 mg tablet TAKE 1 TABLET BY MOUTH DIRECTED (may take up to 5 (FIVE) TABLETS 1 (ONE) hour prior to sexual activity) morphine SR (MS CONTIN, ORAMORPH SR) 15 mg 12 hr tablet Take 1 tablet by mouth every 12 hours for 5days. Current Facility-Administered Medications Medication Dose Route Frequency ondansetron (PF) 4 mg injection (ZOFRAN) 4 mg INTRAVENOUS PRN midazolam (PF) 2 mg injection (VERSED) 2 mg INTRAVENOUS PRN PHYSICAL EXAM: Ht 193 cm (6' 4) Wt 127 kg (280 lb) BMI 34.08 kg/m Body mass index is 34.08 kg/m . General: Well masculinized, well nourished male Psych: euthymic, NAD Neuro: A&Ox3 DIAGNOSES: 1. 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 Erectile dysfunction, unspecified erectile dysfunction type - ICD9: 607.84, ICD10: N52.9 3. Hypogonadism in male - ICD9: 257.2, ICD10: E29.1 IMPRESSION/PLAN: T labs reviewed Cont Clomid - UCP, helps with energy and weight Cont Cialis 5mg daily Viagra PRN Would like to see Dr. Vilchis re sex therapy RTO 6 mo, labs prior Luda Armas MD documented in this encounterAdena [facility]12-04-2023 History of Present illness Narrative* Loren Dumont PA-C - 05/21/2023 10:47 AM EST Images from the original note were not included. This note was created using [employer]. Subjective Mateus Manzano is a 37 year old male. HPI Presents with a chief complaint of cloudy urine and foul odor over the past couple of days. He has a history of recurrent UTIs. He does self cath due to a spinal cord injury and neurogenic bladder. Has not noticed any blood in urine. Has had some low back pain. No fever. No vomiting. No abdominal pain. He also has had a stye in his left eye the past 2 days. He had 1 on the lower eyelid and put some ointment on it and it went to go away. He then developed 1 on the upper eyelid and has some redness and swelling around it. He does have a history of MRSA with a spinal abscess that was from MRSA. Review of Systems HENT: Negative. Eyes: Positive for redness. Left upper eyelid swelling and redness Cardiovascular: Negative. Gastrointestinal: Negative. Genitourinary: Negative for flank pain and hematuria. Urinary odor and cloudy Musculoskeletal: Positive for back pain. All other systems reviewed and are negative. PAST MEDICAL HISTORY Diagnosis Date Asthma 08/05/2021 Clotting disorder ([facility]) HUGH-1 DVT (deep venous thrombosis) ([facility]) 2012 ED (erectile dysfunction) Factor 5 Leiden mutation, heterozygous ([facility]) History of spinal cord injury 03/03/2015 Lower urinary tract infectious disease Methylenetetrahydrofolate reductase (MTHFR) gene mutation MRSA (methicillin resistant Staphylococcus aureus) 10/2012 spine Neurogenic bladder self straight catheterization KARAN (obstructive sleep apnea) pt never got a cpap; pt unsure if he needed one KARAN (obstructive sleep apnea) 08/05/2021 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 Recurrent UTI Sepsis ([facility]) 02/20/2021 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[facility]) Current Outpatient Medications Medication Sig Dispense Refill sildenafil (REVATIO) 20 mg tablet TAKE 1 TABLET BY MOUTH DIRECTED (may TAKE up to 5 (FIVE) TABLETS 1 (ONE) HOUR prior to sexual activity) 30 tablet 5 XARELTO 20 mg tablet Take 1 tablet by mouth once daily. 30 tablet 11 diclofenac, EC, (VOLTAREN) 25 mg EC tablet Take 1 tablet by mouth twice daily. ondansetron orally disintegrating (ZOFRAN ODT) 4 mg disintegrating tablet Take 1 tablet by mouth every 8 hours as needed for nausea/vomiting. 12 tablet 0 hydrOXYzine pamoate (VISTARIL) 25 mg capsule Take 1 capsule by mouth three times daily as needed for itching/rash or anxiety. 30 capsule 1 clomiPHENe (SEROPHENE) 50 mg tablet Take 1 tablet by mouth every other day. (take on ODD days) 30 tablet 5 Tadalafil (CIALIS) 5 mg tablet Take 1 pill daily 90 tablet 5 acetaminophen (TYLENOL EXTRA STRENGTH) 500 mg tablet Take 2 tablets by mouth every 6 hours as needed for pain. 30 tablet 0 albuterol HFA (PROVENTIL HFA, VENTOLIN HFA) 90 mcg/actuation inhaler Inhale 2 Puffs as instructed every 4 hours as needed for wheezing/shortness of breath. baclofen (LIORESAL) 10 mg tablet Take 10 mg by mouth twice daily. baclofen, LIORESAL, (LIORESAL) 2,000 mcg/mL injection Medtronic ITB refill Kit #8566, Lioresal 2000mcg/ml, 40 ml pump to be refilled as directed. docusate sodium (COLACE) 100 mg capsule Take 100 mg by mouth twice daily. Pregabalin (LYRICA) 200 mg capsule Take 200 mg by mouth twice daily. tiZANidine (ZANAFLEX) 2 mg tablet Take 2 mg by mouth twice daily. lidocaine (XYLOCAINE) 5 % ointment Apply to affected area as needed. sulfamethoxazole-trimethoprim (BACTRIM DS) 800-160 mg per tablet Take 1 tablet by mouth two times aday for 7 days. 14 tablet 0 morphine SR (MS CONTIN, ORAMORPH SR) 15 mg 12 hr tablet Take 1 tablet by mouth every 12 hours for 5days. 10 tablet 0 Current Facility-Administered Medications Medication Dose Route Frequency Provider Last Rate Last Admin ondansetron (PF) 4 mg injection (ZOFRAN) 4 mg INTRAVENOUS PRN Eitan Hernandez, DO midazolam (PF) 2 mg injection (VERSED) 2 mg INTRAVENOUS PRN Eitan Hernandez, 2 mg at 02/15/22 0807 PAST SURGICAL HISTORY Procedure Laterality Date IMPLTJ/RPLCMT ITHCL/EDRL DRUG NFS PRGRBL PUMP 03/02/2015 SynchroMed II, 40 ml pump with catheter tip at T9 - Informed consent sigend on 03/03/15 (paper form) IMPLTJ/RPLCMT ITHCL/EDRL DRUG NFS PRGRBL PUMP 10/13/2016 Revision of ITB catheter due to malfunction PAST SURGICAL HISTORY OF 11/09/2012 laminectomy T-4-T-12 PAST SURGICAL HISTORY OF 2002 ORIF with pins right hand PAST SURGICAL HISTORY OF 2012 filter placement for DVT PAST SURGICAL HISTORY OF percutaneous vascular procedure PAST SURGICAL HISTORY OF neck surgery REVISE MEDIAN N/CARPAL TUNNEL SURG Bilateral 2020 FAMILY HISTORY Problem Relation Age of Onset Diabetes Father other (factor v leiden) Father homozigus carries mthfr other (factor v leiden) Mother homozigus carries pie 1 Cancer Paternal Grandfather Heart disease Paternal Grandfather Cancer Paternal Grandmother leukemia Heart Paternal Grandmother Anesthesia Problems No Family History Social History Tobacco Use Smoking status: Every Day Packs/day: 1.00 Years: 18.00 Additional pack years: 0.00 Total pack years: 18.00 Types: Cigarettes Smokeless tobacco: Former Types: Chew Quit date: 01/19/2005 Vaping Use Vaping Use: Never used Substance Use Topics Alcohol use: Yes Comment: rarely Drug use: No Objective BP 156/100 Pulse 72 Temp 36.7 C (98.1 F) Resp 16 SpO2 96% Physical Exam Vitals reviewed. Constitutional: Appearance: Normal appearance. HENT: Head: Normocephalic and atraumatic. Eyes: Comments: Patient has erythema and mild swelling of the left upper eyelid. Peers to be an internal stye underneath the eyelid. No sign of orbital cellulitis. Cardiovascular: Rate and Rhythm: Normal rate and regular rhythm. Heart sounds: Normal heart sounds. Pulmonary: Effort: Pulmonary effort is normal. Breath sounds: Normal breath sounds. Abdominal: Tenderness: There is no right CVA tenderness or left CVA tenderness. Musculoskeletal: Cervical back: Neck supple. Neurological: Mental Status: He is alert. Assessment and Plan ASSESSMENT/PLAN: 1. Recurrent UTI - ICD9: 599.0, ICD10: N39.0 (primary diagnosis) acute - UA positive for li esterase and hematuria - Send urine for culture - Begin treatment with Bactrim DS BID for 7 days - UA DIP, URINE (POC) - URINE CULTURE 2. Hordeolum externum of left upper eyelid - ICD9: 373.11, ICD10: H00.014 Patient will be placed on oral Bactrim for UTI which should cover for stye as well. Recommended warm compresses. Patient does have a history of MRSA so this will also cover if this is causing it as well. Patient did have a stye in the eye that had resolved on its own the week before. Discussed if not improving needs to follow-up with ophthalmology. - CONSULT TO OPHTHALMOLOGY Loren Dumont PA-C documented in this encounterAdena Fayette [facility] Center11-20-2023 Miscellaneous Notes* Telephone Encounter - Juany Alcocer RN - 05/07/2023 9:24 AM EST Patient phones requesting refills as follows: Requested Prescriptions Pending Prescriptions Disp Refills sildenafil (REVATIO) 20 mg tablet [Pharmacy Med Name: sildenafil (pulmonary hypertension) 20 mg tablet] 30 tablet 5 Sig: TAKE 1 TABLET BY MOUTH DIRECTED (may TAKE up to 5 (FIVE) TABLETS 1 (ONE) HOUR prior to sexual activity) Please review and advise. Juany Alcocer RN documented in this encounterAdena Fayette [facility] Center11-03-2023 Instructions* Patient Instructions* Ju Gustafson DO - 04/20/2023 2:02 PM EDT SAN[facility] POST-PROCEDURE INSTRUCTIONS ELBOW 1. WOUND CARE - Keep bandages and procedure area clean and dry for 5 days - Avoid submerging area in water for 5 days - You did not have any sutures or stitches placed. Steri-strips were placed over the wound. These will fall off in the shower after about one week. If they have not fallen off after the first 9 days,you can remove them yourself. - Please contact our office if: - The area become red or hot to touch - You have a fever of 100 or more - You have increased pain or swelling - You have drainage from the treatment site 2. POST-PROCEDURE PAIN CONTROL - You may apply ice for 20 minutes as needed for discomfort - You may take over the counter pain medication or antiinflammatory medication as directed, if prescribed by your physician and if you have had no problems taking these in the past. 3. WEEK BY WEEK SCHEDULE Week 1 Wrist brace for the first 5 days, gentle range of motion, no lifting, pushing, pulling >5lbs Week 2 Continued range of motion, no lifting, pushing, pulling >10lbs Week 3-5 Begin post-TenJet physical therapy protocol, rice bucket therapy at home. Week 6 Follow-up in the office with Dr. Gustafson Week 7+ Continue physical therapy, expectation of improvement is 3 months documented in this encounterAdena Fayette [facility] Center11-03-2023 History of Present illness Narrative* Ju Gustafson, DO - 04/20/2023 1:55 PM EDTAssociated Order(s): Minimally Invasive Tenotomy - left common extensor tendon Post-Procedure Diagnose(s): Lateral epicondylitis of left elbow PROCEDURE DOCUMENTATION NOTE DIAGNOSIS: Lateral epicondylitis of left elbow (primary encounter diagnosis) PROCEDURE DETAILS: Minimally Invasive Tenotomy - left common extensor tendon Informed Consent Consent Obtained: Written [place] Protocol A moment to CARE was completed. SIGN IN Personnel directly involved with the procedure wore the appropriate PPE. Patient/Surrogate Stated/Verified: Patient name, Date of , Relevant allergies and Intended procedure TIME OUT Intended patient and procedure match the source document(s). Consent documented and matches the intended procedure. Relevant labs, photos, and/or imaging studies have been reviewed. Correct side/site marked and visible. Medications required for procedure verified. 04/20/2023 1:56 PM The procedure site was prepped in the usual sterile fashion. Site: Left common extensor tendon Details:Musculoskeletal ultrasound was utilized to successfully localize placement of the injectionneedle at the appropriate site. Ultrasound images demonstrating local vasculature and demonstratinginjection of solution were saved. Minimally Invasive Tenotomy (TenJet) The treatment area was cleaned and draped in sterile fashion. Using sterile technique, musculoskeletal ultrasound (MSK-US) was used to successfully localize the area of pathology to be treated today.A rubens with a sterile marker was placed on the skin in the area of the intended incision site. Using sterile technique, the area of treatment was visualized under MSK-US where infiltration of anesthetic was utilized with a guiding needle. A separate injection was utilized to create a skin wheal at the incision site to control procedural bleeding. After acceptable regional anesthesia was reached, a 11-blade scalpel was utilized to make a stab incision at the marked treatment site. The Hydrocision TenJet needle device, under constant physician guided MSK-US visualization, was inserted to the area of pathological tissue. Maintaining this visualization, degenerative tissue was debrided and confirmed by the treating physician. Upon satisfaction of removal of the targeted degenerative tissue, the TenJet needle device was removed, compression was applied to the incisional site with sterile gauze. Bleeding was controlled and sterile strips were applied, with occlusive dressing and compression bandage. Patient left the procedure room in satisfactory condition having tolerated the procedure well. Outcome: tolerated well, no immediate complications Post-injection instructions were reviewed with the patient and the patient voiced understanding of these instructions. Estimated blood loss less than 5 mL no complications, Estimated blood loss less than 5 mL. SIGN OUT All instruments, equipment, possible retained foreign bodies accounted for. Ju Gustafson DO Sports Medicine Physician Department of Orthopaedic [facility] documented in this encounterAdena [facility] Center10-30-2023 Miscellaneous Notes* Telephone Encounter - Adelaida Ramirez - 04/16/2023 5:24 PM EDT Patient given results and verbalized understanding of instructions given. Adelaida Ramirez * Telephone Encounter - Adelaida Ramirez - 04/16/2023 5:23 PM EDT ----- Message from Margy Styles APRN.TELEVISION DIRECTOR sent at 04/16/2023 9:37 AM EDT ----- Please advise patient the COVID test was negative (not viewed in [employer]). documented in this encounterAdena Fayette Medical Center10-30-2023 Miscellaneous Notes* Telephone Encounter - Yusef Donaldson MD - 04/16/2023 12:23 PM EDT Urine culture grew Enterococcus faecalis. Patient reports he is feeling fine today. Since symptoms have improved bacterial growth is likely colonization from self-catheterizing. Nitrofurantoin prescription sent in which he will start if symptoms return. documented in this encounterAdena Fayette [facility] Center10-28-2023 History of Present illness Narrative* Caleb Powell RT(R) - 04/14/2023 10:30 AM EDT Radiology Service Progress Note PATIENT NAME: Mateus Manzano DATE OF SERVICE: April 14, 2023 TIME: 10:37 AM PATIENT IDENTITY VERIFICATION COMPLETED USING TWO (2) IDENTIFIERS: Name and Date of confirmedby patient verbally. FALL SCREENING: Has the patient had 2 falls in the last year or 1 fall with injury or currently using an Ambulatory Assistive Device (Walker, Cane, Wheelchair, Crutches, etc.)? No PATIENT GENDER DATA: Male PATIENT RELEVANT IMPLANT DATA REVIEWED: Not Applicable RADIOLOGY DEPARTMENT: General X-ray: Exam(s) Completed: Chest X-Ray PERIPHERAL IV DATA: Not applicable SIGNED BY: RT Loyda(R) April 14, 2023 10:37 AM documented in this encounterAdena [facility]10-28-2023 History of Present illness Narrative* Juliette Connors APRN.TELEVISION DIRECTOR - 04/14/2023 10:12 AM EDT This note was created using [employer]. Subjective Mateus Manzano is a 37 year old male. 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 +cough @ baseline, but states baseline Just keep sweating Denies N/V/D Denies abdominal pain Denies skin rash or lesions. Denies CP. Denies SOB Took tylenol last night. Utilized Mucinex Last Tylenol @ 0200 Patient straight caths himself Wheelchair bound related to paraplegia The history is provided by the patient. No napkin machine operator was used. Fever This is a new problem. The current episode started 12 to 24 hours ago. The problem occurs constantly. The problem has not changed since onset.The maximum temperature noted was 102 to 102.9 F. The temperature was taken using an oral thermometer. Associated symptoms include muscle aches and cough. Pertinent negatives include no chest pain, no diarrhea, no vomiting, no congestion, no headaches and no sore throat. He has tried acetaminophen for the symptoms. The treatment provided mild relief. PAST MEDICAL HISTORY Diagnosis Date Asthma 08/05/2021 Clotting disorder (HCC) HUGH-1 DVT (deep venous thrombosis) ([facility]) 2012 ED (erectile dysfunction) Factor 5 Leiden mutation, heterozygous ([facility]) History of spinal cord injury 03/03/2015 Lower urinary tract infectious disease Methylenetetrahydrofolate reductase (MTHFR) gene mutation MRSA (methicillin resistant Staphylococcus aureus) 10/2012 spine Neurogenic bladder self straight catheterization KARAN (obstructive sleep apnea) pt never got a cpap; pt unsure if he needed one KARAN (obstructive sleep apnea) 08/05/2021 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 Recurrent UTI Sepsis ([facility]) 02/20/2021 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[facility]) PAST SURGICAL HISTORY Procedure Laterality Date IMPLTJ/RPLCMT ITHCL/EDRL DRUG NFS PRGRBL PUMP 03/02/2015 SynchroMed II, 40 ml pump with catheter tip at T9 - Informed consent sigend on 03/03/15 (paper form) IMPLTJ/RPLCMT ITHCL/EDRL DRUG NFS PRGRBL PUMP 10/13/2016 Revision of ITB catheter due to malfunction PAST SURGICAL HISTORY OF 11/09/2012 laminectomy T-4-T-12 PAST SURGICAL HISTORY OF 2002 ORIF with pins right hand PAST SURGICAL HISTORY OF 2012 filter placement for DVT PAST SURGICAL HISTORY OF percutaneous vascular procedure PAST SURGICAL HISTORY OF neck surgery REVISE MEDIAN N/CARPAL TUNNEL SURG Bilateral 2019 ALLERGIES Mcrekhstxlgi-Ztmfrgifta-Bnjkoa, Zosyn [Piperacillin-Tazobactam], Hydrocodone-Acetaminophen, and Codeine MEDICATIONS XARELTO 20 mg tablet^Take 1 tablet by mouth once daily.^Disp: 30 tablet^Rfl: 11 diclofenac, EC, (VOLTAREN) 25 mg EC tablet^Take 1 tablet by mouth twice daily.^Disp: ^Rfl: ondansetron orally disintegrating (ZOFRAN ODT) 4 mg disintegrating tablet^Take 1 tablet by mouth every 8 hours as needed for nausea/vomiting.^Disp: 12 tablet^Rfl: 0 hydrOXYzine pamoate (VISTARIL) 25 mg capsule^Take 1 capsule by mouth three times daily as needed for itching/rash or anxiety.^Disp: 30 capsule^Rfl: 1 clomiPHENe (SEROPHENE) 50 mg tablet^Take 1 tablet by mouth every other day. (take on ODD days)^Disp: 30 tablet^Rfl: 5 sildenafil (REVATIO) 20 mg tablet^TAKE 1 TABLET BY MOUTH DIRECTED (may take up to 5 (FIVE) TABLETS 1 (ONE) hour prior to sexual activity)^Disp: 30 tablet^Rfl: 5 Tadalafil (CIALIS) 5 mg tablet^Take 1 pill daily^Disp: 90 tablet^Rfl: 5 acetaminophen (TYLENOL EXTRA STRENGTH) 500 mg tablet^Take 2 tablets by mouth every 6 hours as needed for pain.^Disp: 30 tablet^Rfl: 0 albuterol HFA (PROVENTIL HFA, VENTOLIN HFA) 90 mcg/actuation inhaler^Inhale 2 Puffs as instructed every 4 hours as needed for wheezing/shortness of breath.^Disp: ^Rfl: baclofen (LIORESAL) 10 mg tablet^Take 10 mg by mouth twice daily.^Disp: ^Rfl: baclofen, LIORESAL, (LIORESAL) 2,000 mcg/mL injection^[employer] ITB refill Kit #[id number], Lioresal 2000mcg/ml, 40 ml pump to be refilled as directed.^Disp: ^Rfl: docusate sodium (COLACE) 100 mg capsule^Take 100 mg by mouth twice daily.^Disp: ^Rfl: Pregabalin (LYRICA) 200 mg capsule^Take 200 mg by mouth twice daily.^Disp: ^Rfl: tiZANidine (ZANAFLEX) 2 mg tablet^Take 2 mg by mouth twice daily.^Disp: ^Rfl: lidocaine (XYLOCAINE) 5 % ointment^Apply to affected area as needed.^Disp: ^Rfl: morphine SR (MS CONTIN, ORAMORPH SR) 15 mg 12 hr tablet^Take 1 tablet by mouth every 12 hours for 5days.^Disp: 10 tablet^Rfl: 0 FAMILY HISTORY Problem Relation Age of Onset Diabetes Father other (factor v leiden) Father homozigus carries mthfr other (factor v leiden) Mother homozigus carries pie 1 Cancer Paternal Grandfather Heart disease Paternal Grandfather Cancer Paternal Grandmother leukemia Heart Paternal Grandmother Anesthesia Problems No Family History Social History Tobacco Use Smoking status: Every Day Packs/day: 1.00 Years: 18.00 Additional pack years: 0.00 Total pack years: 18.00 Types: Cigarettes Smokeless tobacco: Former Types: Chew Quit date: 01/19/2005 Vaping Use Vaping Use: Never used Substance Use Topics Alcohol use: Yes Comment: rarely Drug use: No Review of Systems Constitutional: Positive for fatigue and fever. HENT: Negative for congestion and sore throat. Eyes: Negative for photophobia, pain, discharge, redness, itching and visual disturbance. Respiratory: Positive for cough. Negative for apnea, choking and chest tightness. Cardiovascular: Negative for chest pain, palpitations and leg swelling. Gastrointestinal: Negative for diarrhea and vomiting. Musculoskeletal: Positive for myalgias. Skin: Negative for color change, pallor, rash and wound. Allergic/Immunologic: Positive for immunocompromised state. Negative for environmental allergies and food allergies. Neurological: Negative for headaches. Hematological: Negative for adenopathy. Does not bruise/bleed easily. Psychiatric/Behavioral: Negative for agitation and behavioral problems. Objective BP 140/66 Pulse 112 Temp 37.8 C (100.1 F) Resp 20 SpO2 97% Physical Exam Vitals and nursing note reviewed. Constitutional: General: He is not in acute distress. Appearance: Normal appearance. He is obese. He is not ill-appearing or toxic-appearing. HENT: Head: Normocephalic and atraumatic. Right Ear: External ear normal. Left Ear: External ear normal. Nose: Nose normal. No congestion or rhinorrhea. Mouth/Throat: Mouth: Mucous membranes are moist. Pharynx: Oropharynx is clear. No oropharyngeal exudate or posterior oropharyngeal erythema. Eyes: General: Right eye: No discharge. Left eye: No discharge. Extraocular Movements: Extraocular movements intact. Conjunctiva/sclera: Conjunctivae normal. Pupils: Pupils are equal, round, and reactive to light. Cardiovascular: Rate and Rhythm: Normal rate and regular rhythm. Pulses: Normal pulses. Heart sounds: Normal heart sounds. No murmur heard. No friction rub. No gallop. Pulmonary: Effort: Pulmonary effort is normal. No respiratory distress. Breath sounds: No stridor. Wheezing (lower posterior lobes) present. No rhonchi or rales. Chest: Chest wall: No tenderness. Abdominal: General: Abdomen is flat. There is no distension. Palpations: Abdomen is soft. There is no mass. Tenderness: There is no abdominal tenderness. There is no guarding or rebound. Hernia: No hernia is present. Musculoskeletal: Cervical back: Normal range of motion and neck supple. No rigidity or tenderness. Comments: Wheelchair bound secondary to paraplegia Lymphadenopathy: Cervical: No cervical adenopathy. Skin: General: Skin is warm. Capillary Refill: Capillary refill takes less than 2 seconds. Coloration: Skin is not jaundiced or pale. Findings: No bruising, lesion or rash. Neurological: Mental Status: He is alert and oriented to person, place, and time. Motor: No weakness. Comments: Paraplegic Psychiatric: Mood and Affect: Mood normal. Behavior: Behavior normal. Thought Content: Thought content normal. Assessment and Plan ASSESSMENT/PLAN: 1. Fever, unspecified fever cause - ICD9: 780.60, ICD10: R50.9 Acute onset at 2000 yesterday evening (just over 12 hours) Unsure of etiology UTI vs. Viral vs. Pneumonias Urine dip reveals bilirubin, protein and uro Will send for urine culture POC Influenza negative Tylenol provided here in clinic - XR CHEST 2V FRONTAL/LAT-negative Continue alternating Tylenol and Motrin. Discussed red flags Follow up with PCP - UA DIP, URINE (POC) - INFLUENZA A&B MOLECULAR (POC) - COVID & INFLUENZA A/B & RSV NAAT, ROUTINE - ACETAMINOPHEN 500 MG TABLET - URINE CULTURE Juliette Connors APRN.CNP documented in this encounterAdena [facility]09-20-2023 Miscellaneous Notes* Telephone Encounter - Soila Velazquez APRN.CNP - 03/07/2023 2:15 PM EDT Refilled as requested. Patient is over 120kg but has been on this dose for 8 years and is the lowest weight he has been for years. Soila Velazquez APRN.CNP * Telephone Encounter - Mckenna Jay APRN.CNP - 03/06/2023 1:[address] Trimble last saw pt. 01/2021. PCP can takeover Rx. Thank you. Mckenna Jay APRN.TELEVISION DIRECTOR * Telephone Encounter - Mckenna Jay APRN.CNP - 03/06/2023 1:04 PM EDT Message from [employer]: Refills have been requested for the following medications: XARELTO 20 mg tablet [Soila Velazquez] Preferred pharmacy: [id number] - [place] [address] [phone] Delivery method: Pickup documented in this encounterAdena [facility]09-18-2023 History of Present illness Narrative* Carlie Gustafson APRN.EUNICE - 03/05/2023 10:42 AM EDT Subjective HPI HPI Mateus Manzano is a 37 year old male who presents today for CC of urinary frequency, burning, odor. This started 2 days ago. Has tried pushing fluids. Symptoms are worsened by nothing. Risk factors straight cath reliant, hx of UTI. .Patient presents with: UTI: Painful urination, low back pain, urine odor PAST MEDICAL HISTORY Diagnosis Date Asthma 08/05/2021 Clotting disorder ([facility]) HUGH-1 DVT (deep venous thrombosis) ([facility]) 2012 ED (erectile dysfunction) Factor 5 Leiden mutation, heterozygous ([facility]) History of spinal cord injury 03/03/2015 Lower urinary tract infectious disease Methylenetetrahydrofolate reductase (MTHFR) gene mutation MRSA (methicillin resistant Staphylococcus aureus) 10/2012 spine Neurogenic bladder self straight catheterization KARAN (obstructive sleep apnea) pt never got a cpap; pt unsure if he needed one KARAN (obstructive sleep apnea) 08/05/2021 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 Recurrent UTI Sepsis ([facility]) 02/20/2021 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[facility]) PAST SURGICAL HISTORY Procedure Laterality Date IMPLTJ/RPLCMT ITHCL/EDRL DRUG NFS PRGRBL PUMP 03/02/2015 SynchroMed II, 40 ml pump with catheter tip at T9 - Informed consent sigend on 03/03/15 (paper form) IMPLTJ/RPLCMT ITHCL/EDRL DRUG NFS PRGRBL PUMP 10/13/2016 Revision of ITB catheter due to malfunction PAST SURGICAL HISTORY OF 11/09/2012 laminectomy T-4-T-12 PAST SURGICAL HISTORY OF 2002 ORIF with pins right hand PAST SURGICAL HISTORY OF 2012 filter placement for DVT PAST SURGICAL HISTORY OF percutaneous vascular procedure PAST SURGICAL HISTORY OF neck surgery REVISE MEDIAN N/CARPAL TUNNEL SURG Bilateral 2020 ALLERGIES Zztrlfvadanu-Vfgzrdikib-Grywak, Zosyn [Piperacillin-Tazobactam], Hydrocodone-Acetaminophen, and Codeine MEDICATIONS diclofenac, EC, (VOLTAREN) 25 mg EC tablet^Take 1 tablet by mouth twice daily.^Disp: ^Rfl: ondansetron orally disintegrating (ZOFRAN ODT) 4 mg disintegrating tablet^Take 1 tablet by mouth every 8 hours as needed for nausea/vomiting.^Disp: 12 tablet^Rfl: 0 hydrOXYzine pamoate (VISTARIL) 25 mg capsule^Take 1 capsule by mouth three times daily as needed for itching/rash or anxiety.^Disp: 30 capsule^Rfl: 1 clomiPHENe (SEROPHENE) 50 mg tablet^Take 1 tablet by mouth every other day. (take on ODD days)^Disp: 30 tablet^Rfl: 5 sildenafil (REVATIO) 20 mg tablet^TAKE 1 TABLET BY MOUTH DIRECTED (may take up to 5 (FIVE) TABLETS 1 (ONE) hour prior to sexual activity)^Disp: 30 tablet^Rfl: 5 Tadalafil (CIALIS) 5 mg tablet^Take 1 pill daily^Disp: 90 tablet^Rfl: 5 XARELTO 20 mg tablet^Take 1 tablet by mouth once daily.^Disp: 30 tablet^Rfl: 11 morphine SR (MS CONTIN, ORAMORPH SR) 15 mg 12 hr tablet^Take 1 tablet by mouth every 12 hours for 5days.^Disp: 10 tablet^Rfl: 0 acetaminophen (TYLENOL EXTRA STRENGTH) 500 mg tablet^Take 2 tablets by mouth every 6 hours as needed for pain.^Disp: 30 tablet^Rfl: 0 albuterol HFA (PROVENTIL HFA, VENTOLIN HFA) 90 mcg/actuation inhaler^Inhale 2 Puffs as instructed every 4 hours as needed for wheezing/shortness of breath.^Disp: ^Rfl: baclofen (LIORESAL) 10 mg tablet^Take 10 mg by mouth twice daily.^Disp: ^Rfl: baclofen, LIORESAL, (LIORESAL) 2,000 mcg/mL injection^[employer] ITB refill Kit #[id number], Lioresal 2000mcg/ml, 40 ml pump to be refilled as directed.^Disp: ^Rfl: docusate sodium (COLACE) 100 mg capsule^Take 100 mg by mouth twice daily.^Disp: ^Rfl: Pregabalin (LYRICA) 200 mg capsule^Take 200 mg by mouth twice daily.^Disp: ^Rfl: tiZANidine (ZANAFLEX) 2 mg tablet^Take 2 mg by mouth twice daily.^Disp: ^Rfl: lidocaine (XYLOCAINE) 5 % ointment^Apply to affected area as needed.^Disp: ^Rfl: FAMILY HISTORY Problem Relation Age of Onset Diabetes Father other (factor v leiden) Father homozigus carries mthfr other (factor v leiden) Mother homozigus carries pie 1 Cancer Paternal Grandfather Heart disease Paternal Grandfather Cancer Paternal Grandmother leukemia Heart Paternal Grandmother Anesthesia Problems No Family History Social History Tobacco Use Smoking status: Every Day Packs/day: 1.00 Years: 18.00 Additional pack years: 0.00 Total pack years: 18.00 Types: Cigarettes Smokeless tobacco: Former Types: Chew Quit date: 01/19/2005 Vaping Use Vaping Use: Never used Substance Use Topics Alcohol use: Yes Comment: rarely Drug use: No Review of Systems Constitutional: Negative for chills, fever and weight loss. Respiratory: Negative for cough, shortness of breath and wheezing. Cardiovascular: Negative for chest pain and palpitations. Gastrointestinal: Negative for abdominal pain, blood in stool, constipation, diarrhea, heartburn, melena, nausea and vomiting. Genitourinary: Positive for dysuria, frequency and urgency. Negative for flank pain and hematuria. Musculoskeletal: Negative for myalgias. Objective Blood pressure 137/76, pulse 78, temperature 36.9 C (98.5 F), resp. rate 18, weight 127 kg (280 lb), SpO2 96 %. Physical Exam Constitutional: General: He is not in acute distress. Appearance: Normal appearance. He is not toxic-appearing. Cardiovascular: Rate and Rhythm: Normal rate and regular rhythm. Heart sounds: Normal heart sounds. Pulmonary: Effort: Pulmonary effort is normal. Breath sounds: Normal breath sounds. Abdominal: General: Bowel sounds are normal. Palpations: Abdomen is soft. Tenderness: There is no abdominal tenderness. Skin: General: Skin is warm and dry. ASSESSMENT/PLAN: 1. Painful urination - ICD9: 788.1, ICD10: R30.9 acute - UA positive for li esterase, hematuria, and nitrates - Send urine for culture - Begin treatment with Bactrim DS BID for 7 days - UA DIP, URINE (POC) - URINE CULTURE - UA DIP, URINE (POC) - SULFAMETHOXAZOLE 800 MG-TRIMETHOPRIM 160 MG TABLET Carlie Gustafson APRN.TELEVISION DIRECTOR documented in this encounterAdena [facility] Center08-01-2023 Miscellaneous Notes* Telephone Encounter - Shanika Vidales RN - 01/16/2023 10:10 AM EDT Printed and given to patient at ITB refill appointment today, 01/16/23 * Telephone Encounter - Shanika Vidales RN - 01/15/2023 1:05 PM EDT Pending handicap placard to sign by Dr Shelby Will mychart back to patient documented in this encounterAdena F[facility] Center08-01-2023 History of Present illness Narrative* Jamey Shelby MD - 01/16/2023 8:23 AM EDT Images from the original note were not included. INTRATHECAL BACLOFEN THERAPY MANAGEMENT VISIT Informed consent was signed on 12/09/2018. Patient accompanied by his youngest daughter. PAST SURGICAL HISTORY Procedure Laterality Date IMPLTJ/RPLCMT ITHCL/EDRL DRUG NFS PRGRBL PUMP 03/02/2015 SynchroMed II, 40 ml pump with catheter tip at T9 - Informed consent sigend on 03/03/15 (paper form) IMPLTJ/RPLCMT ITHCL/EDRL DRUG NFS PRGRBL PUMP 10/13/2016 Revision of ITB catheter due to malfunction PAST SURGICAL HISTORY OF 11/09/2012 laminectomy T-4-T-12 PAST SURGICAL HISTORY OF 2002 ORIF with pins right hand PAST SURGICAL HISTORY OF 2012 filter placement for DVT PAST SURGICAL HISTORY OF percutaneous vascular procedure PAST SURGICAL HISTORY OF neck surgery REVISE MEDIAN N/CARPAL TUNNEL SURG Bilateral 2019 Nikita Oneill DO, resident physician examined the patient under my direct supervision today. I examined the patient myself and discussed findings. I performed the ITB pump refill myself. HISTORY SINCE LAST VISIT: -Spasticity: Pretty good. He has occasional spasms but states that spasticity is better with botox injections. Exercise / stretching / rehabilitation: He performs stretching exercises all the time. He is in outpatient physical therapy. Use of oral medications for spasticity: Baclofen 10 mg twice daily and tizanidine 2 mg twice daily Patient Entered Data Ingeniatrics No flowsheet data found. Spasticity NRS 01/08/2023 11/15/2022 10/02/2022 10/02/2022 08/31/2022 Spasticity Level - 4 4 - 3 Spasm Scale 1=Mild spasms induced by stimulation - - 1=Mild spasms induced by stimulation - Spasm Scale - Trendable Number 1 - - 1 - Spasm Scale 11/15/2022 10/02/2022 08/31/2022 07/10/2022 06/16/2022 Spasm Frequency Mild spasms induced by stimulation Mild spasms induced by stimulation Mild spasms induced by stimulation Mild spasms induced by stimulation Mild spasms induced by stimulation Spasm Severity Mild Mild Mild Mild Mild Global Impression of Change 11/15/2022 10/02/2022 08/31/2022 07/10/2022 06/16/2022 Rehab global impression of change Much improved Minimally improved Much improved Much improved Muchimproved Pain related to the purpose of the visit: No 0 on a scale of 0 to 10 Is the patient having any pain? Yes LOCATION: Lower back PAIN SCALE: 3 on a scale of 0-10 PAIN CHARACTER: aching and burning DURATION: (How long have you had the pain?) Several years FREQUENCY: (How often does the pain occur?) Occurs constantly Safety concerns: domestic violence, living situation, and safety at home: No Driving issues: No issues per patient Risk of Falls: Yes, but no recent falls Change in bowel habits: Chronic constipation with no changes Change in urinary symptoms suggesting UTI: No, self caths 8 times daily, no UTIs Skin Integrity: Intact Review of Systems EXAM: Position: Sitting Strength Right Left Shoulder abduction 5 5 Elbow flexion 5 5 Elbow extension 5 5 Wrist extension 5 5 Hip flexion 2 1 Knee flexion 3+ 2+ Knee extension 3 3 Plantarflexion 4 4 Dorsiflexion 3 2+ Spasticity Right Left Shoulder 0 0 Elbow flexion 0 0 Elbow extension 0 0 Wrist flexion 0 0 Wrist extension 0 0 Finger flexion 0 0 Finger extension 0 0 Hip adduction 0 0 Knee extension 0. 0 Knee flexion 0 0 Plantarflexion 1 1 Modified Dannie Scale 0 - No increase in tone 1 - Slight increase in tone (catch and release at end of ROM) 1+ - Slight increase in tone, manifested by a catch, followed by minimal resistance throughout remainder (less than half of ROM) 2 - Marked increase in tone through most of the ROM, but affected part(s) easily moved 3 - Considerable increase in tone; passive movement difficult 4 - Affected part(s) rigid in flexion or extension Spasms observed: RUE: no right upper extremity spasms LUE: no left upper extremity spasms RLE: no right lower extremity spasms LLE: no left lower extremity spasms Timed 25 foot walk: N/A Assistance required: wheelchair Ambulation Index Score: 8 - Restricted to wheelchair, independent for transfers Patient ID verified using 2 identifiers: Yes Procedure: Refill ITB pump UNIVERSAL PROTOCOL / SAFETY CHECKLIST Procedure to be Performed: ITB pump refill Sign In: A Moment of CARE was completed. Personnel directly involved with the procedure wore the appropriate PPE (Personal Protective Equipment). Special equipment: [employer] ITB pump c programmer Patient/Surrogate Stated/Verified: PATIENT VERIFIED(optional for EMERGENT procedures): Patient name, Date of , Relevant allergies, and The intended procedure Time Out Communication: Intended patient and procedure match the source documents. Consent documented and matches the intended procedure. Medications required for procedure verified. Sign Out: SIGN OUT (optional for EMERGENT procedures): JUDIE Shelby MD The risks, benefits and alternatives of the procedure were explained. Written Consent Obtained: yes - 12/09/2018 Current Drug: Lioresal Drug Concentration: 2000 mcg/ml Current Rate: 935.6 mcg/day Current Dose schedule: Simple continuous Vice President Of Finance Residual: 11.1 ml Actual Residual: 13.5 ml Pump Refilled: Yes Program Change: No New Drug: Lioresal Drug Concentration: 2000 mcg/ml New Rate: 935.6 mcg/day New Dose schedule: Simple continuous Bolus Given: No Estimated ZEB: 65 months (May 2028) Mehan alarm date: 04/07/2023 Final telemetry read and agrees with planned programming: Yes The skin over the baclofen pump was prepped and draped under sterile conditions. The pump refill port was accessed using the needle provided in the [facility] ITB Refill kit #[id number], Lioresal 2000 mcg/ml, 40ml. The reservoir was emptied, and refilled with 40 mL of medication as detailed below. The needle was withdrawn and a band-aid was applied over the puncture site. The pump was reprogrammed as detailed above. Medication lot #: [id number] Exp. Date: 07/2025 ASSESSMENT: (S24.103A) Spinal cord injury at T7-T12 level ([facility]) (primary encounter diagnosis) (G82.20) Paraplegia ([facility]) (M62.838) Muscle spasticity -Spasticity: Well controlled. No changes were made to his ITB rate. ITB pump was refilled today without immediate complications. -The patient was given a prescription for a disability parking placard at his request. PLAN: ITB pump was refilled today. No changes were made to his ITB rate. Disability parking placard prescription given. F/U: ITB refill on 03/29/23 at 1 pm with [facility]. Alarm date is 04/07/23 Jamey Shelby MD documented in this encounterAdena F[facility] Center07-27-2023 Instructions* Patient Instructions* Jamey Shelby MD - 01/11/2023 8:04 AM EDT You have had a ITB pump refill today. Please contact the office with any questions or concerns ([phone]). Jamey Shelby MD documented in this encounterAdena Fayette Medical Center07-24-2023 Instructions* Patient Instructions* Ruslan Sherwood MD - 01/08/2023 9:22 AM EDT POST-BOTOX INJECTIONS You have received botulinum toxin injections today. The skin around the site of injections should be monitored for a couple of days. If redness or swelling occur, the skin should be examined by a health career advisor to rule out infection. Please contact our office via [employer] or by phone at [phone] any time with any questions or concerns. Please note that your next injections should not be scheduled less than 90 days from today. documented in this encounterAden[facility]07-24-[facility] History of Present illness Narrative* Ruslan Sherwood MD - 01/08/2023 9:18 AM EDT BOTULINUM TOXIN THERAPY Patient accompanied by : self Current complaints / history since last visit: most recent botulinum toxin injections on 10/02/2022. Injections were effective with managing spasticity in the right hip flexors > left flexors. Thisset of BoNT injections lasted up until a few weeks. ITB pump was recently refilled without any further changes. Illnesses / hospitalizations since the last visit: None Other updates: No recent UTIs. He is not on Abx. Anticoagulation: on Xarelto Home stretching/exercise routine: consistently PT/OT: Currently in program for outpatient PT locally in [place]. Does prescribed PT home exercises. Took a break since he went on a cruise Use of oral medications for spasticity: baclofen 10mg twice daily; tizanidine 2mg up to twice a day BT therapy effective? Yes - stiffness, spasms/cramps, pain/discomfort, ease of care and active function (Assists with participation at PT) Duration of benefit: 6 weeks Side effects: No Spasm scale: 1=Mild spasms induced by stimulation Pain related to the purpose of the visit: Yes LOCATION: lower back PAIN SCALE: 2 on a scale of 0-10 PAIN CHARACTER: achy, constant Patient Entered Data PROMIS No flowsheet data found. Spasticity NRS 11/15/2022 10/02/2022 10/02/202208/31/2022 07/10/2022 Spasticity Level 4 4 - 3 3 Spasm Scale - - 1=Mild spasms induced by stimulation - - Spasm Scale - Trendable Number - - 1 - - Spasm Scale 11/15/2022 10/02/2022 08/31/2022 07/10/2022 06/16/2022 Spasm Frequency Mild spasms induced by stimulation Mild spasms induced by stimulation Mild spasms induced by stimulation Mild spasms induced by stimulation Mild spasms induced by stimulation Spasm Severity Mild Mild Mild Mild Mild Global Impression of Change 11/15/2022 10/02/2022 08/31/2022 07/10/2022 06/16/2022 Rehab global impression of change Much improved Minimally improved Much improved Much improved Muchimproved Nutritional status: still reports: appetite- good, intentional weight loss (some weight gain duringrecent vacation), swallowing- denies dysphagia Driving issues: NA Safety concerns regarding living situations and safety at home: No At risk for falling: Yes . Actual falls since last visit: 0frequency/number - none, denies any recent injuries. Review of Systems Constitutional: Negative for appetite change, fever, recent unintentional weight loss and recent weight gain. Musculoskeletal: Positive for muscle weakness. Respiratory: Negative. Cardiovascular: Negative. Examination 01/08/23 0908 BP: 115/73 Pulse: (!) 53 Strength Right Left Shoulder abduction 5 5 Elbow flexion 5 5 Elbow extension 5 5 Wrist extension 5 5 Fur Matcher strength (kg) 70 78 Hip flexion 2 1 Knee flexion 3 3 Knee extension 3 3 Plantarflexion 4 4 Dorsiflexion 3 1 Spasticity Right Left Shoulder 0 0 Elbow flexion 0 0 Elbow extension 0 0 Wrist flexion 0 0 Wrist extension 0 0 Finger flexion 0 0 Finger extension 0 0 Hip adduction 0 0 Knee extension 0. 0 Knee flexion 1 0 Plantarflexion 1 1 Modified Dannie Scale 0 - No increase in tone 1 - Slight increase in tone (catch and release at end of ROM) 1+ - Slight increase in tone, manifested by a catch, followed by minimal resistance throughout remainder (less than half of ROM) 2 - Marked increase in tone through most of the ROM, but affected part(s) easily moved 3 - Considerable increase in tone; passive movement difficult 4 - Affected part(s) rigid in flexion or extension + Clonus in the ankle that was sustained. Spasms observed: RUE: no right upper extremity spasms LUE: no left upper extremity spasms RLE: right lower extremity spasms ankle clonus LLE: no left lower extremity spasms ankle clonus Timed 25 foot walk: N/A Assistance required: wheelchair Ambulation Index Score: 9 - Restricted to wheelchair, dependent for transfers UNIVERSAL PROTOCOL / SAFETY CHECKLIST Procedure to be Performed: Botulinum toxin injections Sign In: A Moment of CARE was completed. Personnel directly involved with the procedure wore the appropriate PPE (Personal Protective Equipment). Patient/Surrogate Stated/Verified: PATIENT VERIFIED(optional for EMERGENT procedures): Patient name, Date of , Relevant allergies and The intended procedure Time Out Communication: Intended patient and procedure match the source documents. Consent documented and matches the intended procedure. Sign Out: SIGN OUT (optional for EMERGENT procedures): None Ruslan Sherwood MD UNIVERSAL PROTOCOL / SAFETY CHECKLIST The risks, benefits and alternatives of the procedure were explained. Written Consent Obtained: yes - 12/13/2020 Clinician(s) performing the injections: Ruslan Sherwood MD Operations Examiner: Shanika Vidales RN The patient was positioned supine . Brand of toxin injected: Botox. After skin preparation with alcohol, a total dose of 175 units were injected as follows: Muscle Limb/Side Dose Guidance Comments Iliopsoas RLE 100 units EMG/US 2 sites - Images saved Iliopsoas LLE 75 units EMG/US 2 sites - Images saved Total Dose: 65965 units discarded. Dilution: 100 units / 2 ml LOT #: [id number] Expiration Date: Month: 12 Year: 25 The injections were well-tolerated. Minimal bleeding occurred at the injection sites. Assessment: (R25.2) Spasticity (primary encounter diagnosis) Plan: US LOWER EXTREMITY RIGHT (POC) FOR RHM USE ONLY (G82.20) Paraplegia (HCC) Plan: US LOWER EXTREMITY RIGHT (POC) FOR RHM USE ONLY (S24.103A) Spinal cord injury at T7-T12 level (HCC) Plan: US LOWER EXTREMITY RIGHT (POC) FOR RHM USE ONLY Mr Manzano is known to our spasticity practice due to SCI with severe spasticity. Spasticity is managed and controlled with ITB Therapy. We have been targeting BT injections in the iliopsoas bilaterally to assist with management of reported stiffness in the hip flexors, albeit a shorter duration. The patient agreed on a total dose increase to 175 units, targeting the right hip flexors more than the left. Current ITB rate is controlling spasms.He had a minor adjustment in the rate recently. Plan: 1 - Repeat injections in 3 months, 150-200 units. No changes made to dose or muscle selection today. Transfers independently 2 - PT/OT: currently in outpatient neuro rehab program working on gait training with [facility] 3 - ITB pump management and refill here at the [facility] (see Stacey Roque's note) 4 - A copy of the note will be sent via Embarkly to: Dr Vijay Roque Time spent with patient: 45 mn. Ruslan Sherwood MD documented in this encounterAdena [facility]06-27-2023 Miscellaneous Notes* Telephone Encounter - Annette Boone Ma - 12/12/2022 1:24 PM EDT Electronic PA was submitted for zoCalastonean. PA was denied not covered for nausea. Did leave detailed message not covered but can use goodrx coupon. 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 Annette Boone Ma documented in this encounterAdena [facility]06-26-2023 Instructions* Patient Instructions* Ju Gustafson DO - 12/11/2022 3:39 PM EDT JENNIE POST-PROCEDURE INSTRUCTIONS ELBOW 1. WOUND CARE - Keep bandages and procedure area clean and dry for 5 days - Avoid submerging area in water for 5 days - You did not have any sutures or stitches placed. Steri-strips were placed over the wound. These will fall off in the shower after about one week. If they have not fallen off after the first 9 days,you can remove them yourself. - Please contact our office if: - The area become red or hot to touch - You have a fever of 100 or more - You have increased pain or swelling - You have drainage from the treatment site 2. POST-PROCEDURE PAIN CONTROL - You may apply ice for 20 minutes as needed for discomfort - You may take over the counter pain medication or antiinflammatory medication as directed, if prescribed by your physician and if you have had no problems taking these in the past. 3. WEEK BY WEEK SCHEDULE Week 1 Wrist brace for the first 5 days, gentle range of motion, no lifting, pushing, pulling >5lbs Week 2 Continued range of motion, no lifting, pushing, pulling >10lbs Week 3-5 Begin post-TenJet physical therapy protocol, rice bucket therapy at home. Week 6 Follow-up in the office with Dr. Gustafson Week 7+ Continue physical therapy, expectation of improvement is 3-4 months documented in this encounterAdena [facility]06-26-2023 History of Present illness Narrative* Ju Gustafson DO - 12/11/2022 3:21 PM EDTAssociated Order(s): Additional Injections: L elbow joint Post-Procedure Diagnose(s): Lateral epicondylitis of left elbow [facility] DEPARTMENT OF ORTHOPAEDIC SURGERY OFFICE VISIT DOCUMENTATION NOTE ASSESSMENT AND PLAN DIAGNOSIS: (M77.12) Lateral epicondylitis of left elbow (primary encounter diagnosis) Interventions and plans for this office visit: Today, in detail, through a thorough evaluation, we discussed possible etiologies of pain and our plans for further diagnostic and therapeutic interventions. We discussed strategies for decreasing pain and improving strength, stability and motion. All of the patient's questions were answered in detail, the patient verbalized understanding and agrees with the treatment plan as discussed. We discussed the role of percutaneous tenotomy in detail today for treatment of the patients left lateral epincondylosis, common extensor tendinosis. Patient has voiced understanding of the steps of the procedure, pre- and post-procedure protocols, the risk and benefit of the percutaneous tenotomy and the expected outcomes. We will submit authorization to insurance for percutaneous tenotomy. At this time, the patient has agreed to proceed with scheduling a date for the procedure. In addition to the comprehensive evaluation as outlined above and as a separate element to the visit today, we have made the determination to proceed with an injection to aid in the treatment of the patient's condition. We discussed that, while rare, injections could result in adverse effects like,but not limited to infections, worsening of osteoarthritis, potential damage to tendon or ligament structures, potential tearing of tendon or ligament structures after the injection with repetitive use, numbness or tingling or damage to nerve structures. We discussed additional risks, benefits, alternatives and expected outcomes of this injection in detail, and the patient agreed to proceed with the procedure. The procedure was performed as detailed below. Additional Injections: L elbow joint for lateral epicondylitis (Not the joint) Informed Consent Consent Obtained: Written [place] Protocol A moment to CARE was completed. SIGN IN Personnel directly involved with the procedure wore the appropriate PPE. Patient/Surrogate Stated/Verified: Patient name, Date of , Relevant allergies and Intended procedure TIME OUT Intended patient and procedure match the source document(s). Consent documented and matches the intended procedure. Relevant labs, photos, and/or imaging studies have been reviewed. Correct side/site marked and visible. Medications required for procedure verified. 12/11/2022 3:44 PM The procedure site was prepped in the usual sterile fashion. Details:Musculoskeletal ultrasound was utilized to successfully localize placement of the injectionneedle at the appropriate site. Ultrasound images demonstrating local vasculature and demonstratinginjection of solution were saved. Medications: 40 mg triamcinolone acetonide 40 mg/mL Anesthetics: 3 mL ROPivacaine (PF) 5 mg/mL (0.5 %) Outcome: tolerated well, no immediate complications Post-injection instructions were reviewed with the patient and the patient voiced understanding of these instructions. Ju Gustafson DO Sports Medicine Physician Department of Orthopaedic Surgery [facility] CHIEF COMPLAINT / REASON FOR VISIT: Mateus Manzano is a 37 year old male who presents today for a follow-up evaluation of following complaint: Patient presents with: Left Elbow - Follow Up, Injections HISTORY OF PRESENT ILLNESS PAIN EVALUATION 12/11/2022 1521 Pain Level: 3 Pain Location: Elbow-Left Description: Numbness;Aching;Sharp;Burning Frequency: Continuous Review of Systems Constitutional: Any recent fevers? No Gastrointestinal: Any abdominal discomfort? No Integumentary: Any recent skin changes or rashes? No Mateus Manzano is a 37 year old male with the presenting complaint of Follow Up and Injections of the Left Elbow. Mateus reports a current pain level of 3 (Elbow-Left). He describes the pain as Numbness, Aching, Sharp, Burning. The pain is Continuous . He was last seen in orthopaedic clinic for his elbow on 03/27/2022 with Ju Gustafson. Most recentelbow imaging was completed on 03/02/2021 (XR ELBOW SPECIAL VIEWS AP/LAT/OTHER LEFT) . In the past (based on all medication history on file), Mateus has tried the following anti-inflammatory medications (not necessarily for this reason for visit): ketorolac tromethamine, meloxicam, methylprednisolone, naproxen, prednisone, triamcinolone acetonide. 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 Last US Elbow - Impression Only US ELBOW LEFT Exam End: 12/16/2021 1:09 PM (Final result) Impression: IMPRESSION: MILD COMMON EXTENSOR TENDINOSIS WITHOUT TEAR OR HYPEREMIA. 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 PT Visits (up to last 5) Some values may be hidden. Unless noted otherwise, only the newest values recorded on each date aredisplayed. PT Visits 10/26/22 11/02/22 11/16/22 11/28/22 12/07/22 Pain location Generalized Generalized Back;Generalized Generalized Pain level 0 3 2 3 3 Description Burning;Aching Aching Aching Frequency Orthopaedic Injections (up to last 5) Some values may be hidden. Unless noted otherwise, only the newest values recorded on each date aredisplayed. Orthopaedic Injection History 03/02/21 09/19/21 03/27/22 Medication 40 mg triamcinolone acetonide 40 mg/mL 40 mg triamcinolone acetonide 40 mg/mL 40 mg triamcinolone acetonide 40 mg/mL Recent Surgeries this specialty No cases to display EXAMINATION Left Elbow Exam Tenderness The patient is experiencing tenderness in the lateral epicondyle. Range of Motion Extension: normal Flexion: normal Pronation: normal Supination: normal Muscle Strength Pronation: 5/5 Supination: 5/5 Tests Varus: negative Valgus: negative Tinel's sign (cubital tunnel): negative Other Erythema: absent Scars: absent Sensation: normal documented in this encounterAdena [facility]06-26-2023 Miscellaneous Notes* Telephone Encounter - Hortensia Tovar LPN - 12/11/2022 11:52 AM EDT Patient has been identified by name and date of : No Patient phones for refill(s): Requested Prescriptions Pending Prescriptions Disp Refills ondansetron orally disintegrating (ZOFRAN ODT) 4 mg disintegrating tablet [Pharmacy Med Name: ondansetron 4 mg disintegrating tablet] 12 tablet 0 Sig: Take 1 tablet by mouth every 8 hours as needed for nausea/vomiting. Date of last office visit in primary care: 04/08/22 Last 2 Encounter Wt Readings: Date: Wt: 11/15/2022 127 kg (280 lb) 08/31/2022 132 kg (291 lb) Previous labs/tests for medication: Not applicable Please advise. Thank you. Hortensia Tovar LPN documented in this encounterAdena [facility]06-22-2023 History of Present illness Narrative* Jazmin Hernandez PT - 12/07/2022 8:02 AM EDT Episode Visit Count: 81 Therapist That Will Accept/Oversee The Plan Of Care: Annette Ramsey Start of Care Date: 07/14/20 Onset Date: 11/07/12 Plan of Care Certification Date: 12/07/22 Next Certification Due Date: 03/08/23 Patient Identified by Name and Date of : Yes REHABILITATION AND SPORTS THERAPY PHYSICAL THERAPY TREATMENT NOTE ASSESSMENT: Mateus Manzano tolerated the session with no issues. He demonstrated difficulty with tall kneel activities with decreased upper extremity support. Patient will continue to benefit from skilled physical therapy services through a combination of restorative and compensatory approach to optimize safety and independence with functional mobility tasks. PLAN FOR NEXT VISIT: Continue use of Bioness on quads/hamstring,functional strengthening, quadruped and tall kneel activities for hip stability/glute and hamstring strengthening, gait training to tolerance, endurance training, physioball for core stabilization. SL leg press SUBJECTIVE: Patient Reason for Visit: SCI Patient feels like his legs are getting used to the adjustments of the ITB pump and Botox injections. Was able to walk without the BIONESS last week. Pain: Pain Pain Level: 3 Pain Location: Generalized OBJECTIVE MEASURES WITH LEVEL OF FUNCTION: Gait Gait: Contact Guard Assistance Gait Device: Wheeled Walker Gait Observation: Decreased knee stability during stance phase, excessive use of UEs on AD TREATMENT: Neuromuscular Re-Education: 1: Bioness set-up, pt-directed/supervision, Tablet 2; quad cuff utilized 2: Repeated sit to stands from elevated mat table surface to FWW. Use of BIONESS with 15:10 settings til fatigue. No knee blocks required this session, intermittently providing tactile cueing to LLE for increased quadriceps activation. Progressed to alternating lifting UEs off FWW to decrease UE use on AD. 3: Tall kneel with UE support on mat table, using Blaze Pods for multidirectional reaching to BlazePod targets. Instructions for Blue = Left hand, Red = Right hand. Progressed to Red = both hands toencourage hip/LE stability and core strengthening in tall kneel position, pt demo increased difficulty and flexing forward into mat table, only able to perform ~3 reps. Skilled Intervention: Skilled judgment used to assess appropriate program for balance and coordination activity. Ensured patient safety with use of stand by assistance Correct performance of activities performed during this session insured through verbal and visual cueing. Gait Trainin: Overground gait training without BIONESS this date. Patient able to amb 74' with use of FWW and w/c follow for safety. 2: Overground gait training with L BIONESS thigh cuff utilized, 31', 38' with FWW and PT modifying intensity and frequency of BIONESS during stance phase Skilled Intervention: Patient was provided contact guard assistance during pre- gait/gait training to prevent falls and insure safety. Facilitated proper gait cycle with the use of verbal and visual cues for correction of gait deviations identified in the objective section above. Gait belt utilized during session for safety. Billing Neuromuscular Re-Education Treatment Minutes: 42 Gait Training Treatment Minutes: 23 Total Treatment Time Minutes (timed/untimed): 65 Jazmin Hernandez PT, DPT documented in this encounterAdena [facility]06-01-2023 History of Present illness Narrative* Deyanira Goins, PT, DPT - 11/16/2022 9:25 AM EDT Episode Visit Count: 79 Therapist That Will Accept/Oversee The Plan Of Care: Annette Ramsey Start of Care Date: 07/14/20 Onset Date: 11/07/12 Plan of Care Certification Date: 09/07/22 Next Certification Due Date: 12/06/22 Patient Identified by Name and Date of : Yes REHABILITATION AND SPORTS THERAPY PHYSICAL THERAPY TREATMENT NOTE ASSESSMENT: Mateus Manzano tolerated the session with fatigue and muscle soreness. He demonstrated improvements in core stability progressing to modified bird dog. He demonstrated difficulty with quad activation with sit to stands and glute activation with tall kneel interventions on this date secondary to ITB pump refill yesterday. Mateus will continue to benefit from ongoing 1:1 skilled neurological PT in the outpatient setting to progress toward set goals and improve functional independence to further decrease risk of falls in the home and community. PLAN FOR NEXT VISIT: Continue use of Bioness on quads/hamstring, // bar functional strengthening, quadruped and tall kneel activities for hip stability/glute and hamstring strengthening, gait training to tolerance, endurance training, physioball for core stabilization SUBJECTIVE: Patient Reason for Visit: Pt had his ITB pump refilled yesterday and is feeling weaker today. He reports his clonus is improved Pain: Pain Pain Level: 2 Pain Location: Generalized Description: Aching Post Treatment Pain Post Treatment Pain Level: No Change OBJECTIVE MEASURES WITH LEVEL OF FUNCTION: Mobility Stand To Sit: Supervision Floor to Chair: Independent TREATMENT: Neuromuscular Re-Education: 1: Bioness set-up, pt-directed/supervision, Tablet 2; quad cuff utilized 2: Repeated sit to stands from elevated mat table surface to FWW. Use of BIONESS with 15:10 settings til fatigue. PT providing bilateral knee blocks as needed and extra tactile cueing for quadriceps activation with BIONESS. Progressed to alternating lifting UEs off FWW for increased challenge to static standing 3: Performed the following activities in quadruped for core training, joint approximation and stability 4: -Alternating sliding UEs using 5# plates, progressed to performing bilateral push outs on 5# plates for increased challenge. Tactile and verbal cueing for performance 5: -Alternating sliding hip extension using 5# plates. PT stabilizing foot on plate due to clonus 6: -Modified bird dog using 5# plates to slide, performed 2x 5 reps each side. PT stabilizing LEs 7: -Progressed to performing hip extension kick backs without 5# plates for sliding. PT providing assistance for stabilizing LE during lift to sustain hold on L side 8: -Diagonal kick backs with 5# plates to assist with sliding. PT stabilizing LEs on plate 9: Tall kneel with large green venezuelan ball for UE support. Cues for glute activation and upright posture 10: Tall kneel ball push outs for increased core and glute activation with dynamic movement. 11: Tall kneel with UE support on mat table, stacking cones to facilitate decreasing levels of UE support and increased activation of glutes and core for maintaining upright tall kneel posture Skilled Intervention: Skilled judgment used to assess appropriate program for balance and coordination activity. Ensured patient safety with use of hands on assistance as needed. Correct performance of activities performed this session ensured through verbal, visual and tactilecueing. Billing Neuromuscular Re-Education Treatment Minutes: 65 Total Treatment Time Minutes (timed/untimed): 65 Deyanira Goins PT, DPT documented in this encounterAdena [facility]05-31-2023 History of Present illness Narrative* Daysi Roque PA-C - 11/15/2022 11:01 AM EDT INTRATHECAL BACLOFEN THERAPY MANAGEMENT VISIT Patient accompanied by Self PAST SURGICAL HISTORY Procedure Laterality Date IMPLTJ/RPLCMT ITHCL/EDRL DRUG NFS PRGRBL PUMP 03/02/2015 SynchroMed II, 40 ml pump with catheter tip at T9 - Informed consent sigend on 03/03/15 (paper form) IMPLTJ/RPLCMT ITHCL/EDRL DRUG NFS PRGRBL PUMP 10/13/2016 Revision of ITB catheter due to malfunction PAST SURGICAL HISTORY OF 11/09/2012 laminectomy T-4-T-12 PAST SURGICAL HISTORY OF 2002 ORIF with pins right hand PAST SURGICAL HISTORY OF 2012 filter placement for DVT PAST SURGICAL HISTORY OF percutaneous vascular procedure PAST SURGICAL HISTORY OF neck surgery REVISE MEDIAN N/CARPAL TUNNEL SURG Bilateral 2020 HISTORY SINCE LAST VISIT: Mateus reports an episode of increased spasticity that lasted about 6 hours. Symptoms did not respond to hot shower, hydroxyzine, or e- stim. It improved after he took a CBD gummy. He continues to notice increased spasms in the weeks leading up to pump refills. Patient Entered Data CORD:USE Cord Blood BankIS No flowsheet data found. Spasticity NRS 11/15/2022 10/02/2022 10/02/2022 08/31/2022 07/10/2022 Spasticity Level 4 4 - 3 3 Spasm Scale - - 1=Mild spasms induced by stimulation - - Spasm Scale - Trendable Number - - 1 - - Spasm Scale 11/15/2022 10/02/2022 08/31/2022 07/10/2022 06/16/2022 Spasm Frequency Mild spasms induced by stimulation Mild spasms induced by stimulation Mild spasms induced by stimulation Mild spasms induced by stimulation Mild spasms induced by stimulation Spasm Severity Mild Mild Mild Mild Mild Global Impression of Change 11/15/2022 10/02/2022 08/31/2022 07/10/2022 06/16/2022 Rehab global impression of change Much improved Minimally improved Much improved Much improved Muchimproved Safety concerns: domestic violence, living situation, and safety at home: No Review of Systems EXAM: Position: Sitting Strength Right Left Shoulder abduction 5 5 Elbow flexion 5 5 Elbow extension 5 5 Wrist extension 5 5 Fur Matcher strength (kg) 58 70 Hip flexion 2 1 Knee flexion 3 3 Knee extension 3 3 Plantarflexion 4 4 Dorsiflexion 3 1 Spasticity Right Left Shoulder 0 0 Elbow flexion 0 0 Elbow extension 0 0 Wrist flexion 0 0 Wrist extension 0 0 Finger flexion 0 0 Finger extension 0 0 Hip adduction 0 0 Knee extension 0. 0 Knee flexion 1 0 Plantarflexion 1 1 Modified Dannie Scale 0 - No increase in tone 1 - Slight increase in tone (catch and release at end of ROM) 1+ - Slight increase in tone, manifested by a catch, followed by minimal resistance throughout remainder (less than half of ROM) 2 - Marked increase in tone through most of the ROM, but affected part(s) easily moved 3 - Considerable increase in tone; passive movement difficult 4 - Affected part(s) rigid in flexion or extension + Clonus in the ankle that was sustained. Spasms observed: RUE: no right upper extremity spasms LUE: no left upper extremity spasms RLE: right lower extremity spasms ankle clonus LLE: no left lower extremity spasms ankle clonus Timed 25 foot walk: N/A Assistance required: wheelchair Ambulation Index Score: 9 - Restricted to wheelchair, dependent for transfers Patient ID verified using 2 identifiers: Yes Procedure: Refill ITB pump UNIVERSAL PROTOCOL / SAFETY CHECKLIST Procedure to be Performed: baclofen pump refill Sign In: A Moment of CARE was completed. Personnel directly involved with the procedure wore the appropriate PPE (Personal Protective Equipment). Patient/Surrogate Stated/Verified: PATIENT VERIFIED(optional for EMERGENT procedures): Patient name, Date of , Relevant allergies, and The intended procedure Time Out Communication: Intended patient and procedure match the source documents. Consent documented and matches the intended procedure. Relevant labs, photos, and/or imaging studies have been reviewed. Correct side/site marked and visible. Medications required for procedure verified. Fire risk assessed and interventions discussed. No implant(s) inserted. Sign Out: SIGN OUT (optional for EMERGENT procedures): No specimen collected. Daysi Roque PA-C The risks, benefits and alternatives of the procedure were explained. Written Consent Obtained: yes - 12/09/2018 Current Drug: Lioresal Drug Concentration: 2000 mcg/ml Current Rate: 917 mcg/day Current Dose schedule: Simple continuous Pump Refilled: Yes Program Change: Yes- increased rate by 2% New Drug: Lioresal Drug Concentration: 2000 mcg/ml New Rate: 935.6 mcg/day New Dose schedule: Simple continuous Bolus Given: No Estimated ZEB: 67 months (04/2028) Mehan alarm date: 02/04/2023 Final telemetry read and agrees with planned programming: Yes The skin over the baclofen pump was prepped and draped under sterile conditions. The pump refill port was accessed using the needle provided in the Saol kit. The reservoir was emptied, and refilled with 40 mL of medication as detailed below. The needle was withdrawn and a band-aid was applied over the puncture site. The pump was refilled. ASSESSMENT: SCI with severe spasticity. There is ongoing spasms that seem to worsen in the weeks leading up to his pump needing refilled. He requests to refill the pump a few weeks early, which is reasonable. He had one episode of severe spasms that lasted about 6 hours, which improved after he used CBD. Will monitor for now. He also agreed to increase the rate by 2%. The pump was refilled without complications. PLAN: 1. ITB pump refilled 2. ITB rate increased by 2% Alarm date: 02/04/2023; refill on 01/16/2023 at 8:30 Heron Roque PA-C documented in this encounterA[facility] History of Present illness Narrative* Conrad Dodd, PT - 10/17/2022 9:18 AM EDT Episode Visit Count: 76 Therapist That Will Accept/Oversee The Plan Of Care: Annette Ramsey Start of Care Date: 07/14/20 Onset Date: 11/07/12 Plan of Care Certification Date: 09/07/22 Next Certification Due Date: 12/06/22 REHABILITATION AND SPORTS THERAPY PHYSICAL THERAPY TREATMENT NOTE ASSESSMENT: Mateus Manzano tolerated the session with fatigue and expected muscle soreness. He demonstrated difficulty with TKE during static standing with FWW and Lofstrands and improvements in tolerance to standing and WB progressions with FES noted by completion with Lofstrands. The patient willcontinue to benefit from ongoing skilled physical therapy to progress toward set goals. PLAN FOR NEXT VISIT: Continue use of Bioness on quads/hamstring, // bar functional strengthening, gait training to tolerance, endurance training, physioball for core stabilization SUBJECTIVE: Not too bad. Hips are a little tight. Pain: Pain Pain Level: 3 Pain Location: Generalized OBJECTIVE MEASURES WITH LEVEL OF FUNCTION: TREATMENT: Neuromuscular Re-Education: 1: Bioness set-up, pt-directed/supervision, Tablet 2; quad cuff in use only 2: -Sit <> stand from mat table to fatigue with FWW, SBA. bioness in functional training mode. 10 on:15 off - emphasis on TKE - increased difficulty on this date. Modified intensity on this date. 3: -STS from elevated mat table to loftstrands - SBA-CGA for safety. Good tolerance with repetitionand use of Bioness - 20 on:4 for for more continuous stimulation. Multiple bouts to fatigue. 4: Discussed overall exercise technique and strengthening progressions. 5: Leg Press 80# 15 reps x6 sets - discussed more endurance muscle training on this date. - edu patient on functional rest breaks to promote muscle recovery between sets for technique. (Good tolerance) 6: After completion of above, completed SL Leg press 40# x15 each leg to fatigue Skilled Intervention: Skilled judgment used to assess appropriate program for balance and coordination activity. Patient education as noted. Billing Neuromuscular Re-Education Treatment Minutes: 60 Total Treatment Time Minutes (timed/untimed): 65 Conrad Dodd PT documented in this encounterA[facility]04-17-[facility]23 Instructions* Patient Instructions* Ruslan Sherwood MD - 10/02/2022 10:09 AM EDT POST-BOTOX INJECTIONS You have received botulinum toxin injections today. The skin around the site of injections should be monitored for a couple of days. If redness or swelling occur, the skin should be examined by a health career advisor to rule out infection. Please contact our office via N[employer] or by phone at [phone] any time with any questions or concerns. Please note that your next injections should not be scheduled less than 90 days from today. documented in this encounterAdena [facility]04-17-2023 History of Present illness Narrative* Ruslan Sherwood MD - 10/02/2022 9:49 AM EDT BOTULINUM TOXIN THERAPY Patient accompanied by : self Current complaints / history since last visit: most recent botulinum toxin injections on 07/10/2022. Injections were less effective with managing spasticity in the right hip flexors > left flexors.This set of BoNT injections lasted only six weeks, compared to 2- 2.5 mo previously. ITB pump was recently refilled without any further changes. Illnesses / hospitalizations since the last visit: None Other updates: No recent UTIs. He is not on Abx. Anticoagulation: on Xarelto Home stretching/exercise routine: consistently PT/OT: currently in program for outpatient PT locally in [place]. Does prescribed PT home exercises Use of oral medications for spasticity: baclofen 10mg twice daily; tizanidine 2mg up to twice a day BT therapy effective? Yes - stiffness, spasms/cramps, pain/discomfort, ease of care and active function (Assists with participation at PT) Duration of benefit: 6 weeks Side effects: No Spasm scale: 1=Mild spasms induced by stimulation Pain related to the purpose of the visit: Yes LOCATION: lower back PAIN SCALE: 2 on a scale of 0-10 PAIN CHARACTER: achy, constant Patient Entered Data PROMIS No flowsheet data found. Spasticity NRS 10/02/2022 08/31/2022 07/10/2022 07/10/2022 06/16/2022 Spasticity Level 4 3 3 - 4 Spasm Scale - - - 1=Mild spasms induced by stimulation - Spasm Scale - Trendable Number - - - 1 - Spasm Scale 10/02/2022 08/31/2022 07/10/2022 06/16/2022 04/04/2022 Spasm Frequency Mild spasms induced by stimulation Mild spasms induced by stimulation Mild spasms induced by stimulation Mild spasms induced by stimulation Infrequent full spasms occuriung less than once per hour Spasm Severity Mild Mild Mild Mild Mild Global Impression of Change 10/02/2022 08/31/2022 07/10/2022 06/16/2022 04/04/2022 Rehab global impression of change Minimally improved Much improved Much improved Much improved Muchimproved Nutritional status: still reports: appetite- good, intentional weight loss says he's down 280, swallowing- denies dysphagia Driving issues: NA Safety concerns regarding living situations and safety at home: No At risk for falling: Yes . Actual falls since last visit: 0frequency/number - none, denies any recent injuries. Review of Systems Constitutional: Negative for appetite change, fever, recent unintentional weight loss and recent weight gain. Musculoskeletal: Positive for muscle weakness. Respiratory: Negative. Cardiovascular: Negative. Examination There were no vitals filed for this visit. Strength Right Left Shoulder abduction 5 5 Elbow flexion 5 5 Elbow extension 5 5 Wrist extension 5 5 Fur Matcher strength (kg) 58 70 Hip flexion 2 1 Knee flexion 3 3 Knee extension 3 3 Plantarflexion 4 4 Dorsiflexion 3 1 Spasticity Right Left Shoulder 0 0 Elbow flexion 0 0 Elbow extension 0 0 Wrist flexion 0 0 Wrist extension 0 0 Finger flexion 0 0 Finger extension 0 0 Hip adduction 0 0 Knee extension 0. 0 Knee flexion 1 0 Plantarflexion 1 1 Modified Dannie Scale 0 - No increase in tone 1 - Slight increase in tone (catch and release at end of ROM) 1+ - Slight increase in tone, manifested by a catch, followed by minimal resistance throughout remainder (less than half of ROM) 2 - Marked increase in tone through most of the ROM, but affected part(s) easily moved 3 - Considerable increase in tone; passive movement difficult 4 - Affected part(s) rigid in flexion or extension + Clonus in the ankle that was sustained. Spasms observed: RUE: no right upper extremity spasms LUE: no left upper extremity spasms RLE: right lower extremity spasms ankle clonus LLE: no left lower extremity spasms ankle clonus Timed 25 foot walk: N/A Assistance required: wheelchair Ambulation Index Score: 9 - Restricted to wheelchair, dependent for transfers UNIVERSAL PROTOCOL / SAFETY CHECKLIST Procedure to be Performed: Botulinum toxin injections Sign In: A Moment of CARE was completed. Personnel directly involved with the procedure wore the appropriate PPE (Personal Protective Equipment). Patient/Surrogate Stated/Verified: PATIENT VERIFIED(optional for EMERGENT procedures): Patient name, Date of , Relevant allergies and The intended procedure Time Out Communication: Intended patient and procedure match the source documents. Consent documented and matches the intended procedure. Sign Out: SIGN OUT (optional for EMERGENT procedures): None Ruslan Sherwood MD UNIVERSAL PROTOCOL / SAFETY CHECKLIST The risks, benefits and alternatives of the procedure were explained. Written Consent Obtained: yes - 12/13/2020 Clinician(s) performing the injections: Ruslan Sherwood MD Operations Examiner: Claudia Case LPN The patient was positioned supine . Brand of toxin injected: Botox. After skin preparation with alcohol, a total dose of 175 units were injected as follows: Muscle Limb/Side Dose Guidance Comments Iliopsoas RLE 100 units EMG/US 3 sites - Images saved Iliopsoas LLE 75 units EMG/US 2 sites - Images saved Total Dose: 175 Dilution: 100 units / 2 ml LOT #: [id number] Expiration Date: Month: 5 Year: 25 LOT #: [id number] Expiration Date: Month: 5 Year: 25 The injections were well-tolerated. Minimal bleeding occurred at the injection sites. Assessment: (R25.2) Spasticity (primary encounter diagnosis) Plan: US LOWER EXTREMITY RIGHT (POC) FOR RHM USE ONLY (G82.20) Paraplegia (HCC) Plan: US LOWER EXTREMITY RIGHT (POC) FOR RHM USE ONLY (S24.103A) Spinal cord injury at T7-T12 level (HCC) Plan: US LOWER EXTREMITY RIGHT (POC) FOR RHM USE ONLY Mr Manzano is known to our spasticity practice due to SCI with severe spasticity. Spasticity is managed and controlled with ITB Therapy. We have been targeting BT injections in the iliopsoas bilaterally to assist with management of reported stiffness in the hip flexors, albeit a shorter duration. The patient agreed on a total dose increase to 175 units, targeting the right hip flexors more than the left. Current ITB rate is controlling spasms. No further rate adjustments are necessary. Plan: 1 - Repeat injections in 3 months, 150-200 units. No changes made to dose or muscle selection today. Transfers independently 2 - PT/OT: currently in outpatient neuro rehab program working on gait training with [facility] 3 - ITB pump management and refill here at the [facility] 4 - A copy of the note will be sent via Embarkly to: Dr Vijay Roque Time spent with patient: 45 mn. Ruslan Sherwood MD documented in this encounterA[facility]03-23-2023 History of Present illness Narrative* Conrad Dodd, PT - 09/07/2022 9:19 AM EDT Episode Visit Count: 73 Therapist That Will Accept/Oversee The Plan Of Care: Annette Ramsey Start of Care Date: 07/14/20 Onset Date: 11/07/12 Plan of Care Certification Date: 09/07/22 Next Certification Due Date: 12/06/22 REHABILITATION AND SPORTS THERAPY PHYSICAL THERAPY PROGRESS REPORT PLAN OF CARE UPDATE: Assessment: Mateus Manzano demonstrates difficulty with high tone, walking, and heavy exertion and improvements in rising from a chair, walking, physical activities, and recreational activities. He has progressed toward goals. Patient continues to present with impairments in ADL's, gait, independence in exercise, joint mobility, overall function, strength, and tone management that interfere with rising from a chair, standing, walking, walking in the house, walking in the community, physical activities, recreational activities . Current prognosis is Good due to: good overall health status, positive past response to therapy, within-session changes, good support system/ coping skills, Prognosis may be limited due to Fair due to: clinical presentation, chronic nature of impairments chronic nature of impairments, clinical presentation . He will benefit from continued skilled therapy services to meet the updated goals for this plan of care as noted below. Goals for Episode of Care: created on 01/27/20 through 03/27/20 Updated 06/01/21 PN 08/17/21 UPDATED 09/15/21 UPDATED 11/03/2021 Updated 12/20/2021 UPDATED 03/23/22 UPDATED 06/08/22 UPDATED 09/07/22 Short Term: Consult general duty nurse as needed for bracing needs for ambulation goals. 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 ONGOING Patient will ambulate 150 feet with loftstrand crutch Right with modified independence for community participation with his . (patients goal is to be mariangel to walk into a restaurant with his and walk back out) ONGOING, limited by tone, painand weakness/imbalance Patient will demonstrate current home exercise program independently. ONGOING Patient demonstrates independent and proper use of assistive device to allow for improved walking quality and safety therefore reducing the risk of falls. ONGOING- standing at home, but not ambulating at this time. Patient Goals: Remember how to use my legs and strengthen them up. To walk again, or at least work toward it NEW GOALS: Patient will be indep with use of [employer]s L300 system in preparation for home unit- PROGRESSING Patient will improve gait with use of Bioness L300 and wheeled walker to > 100' without seated rest for improved home independence. PROGRESSING Patient will improve static unsupported standing to > 30 seconds indicating improved balance andfunctional strength. PROGRESSING Patient will improve 10 MWT to 0.6 m/s for home and community participation. ONGOING Planned Interventions, Frequency, and Duration: 1x/week, 8 weeks Total Number of Visits Planned: 8 Patient to be seen for PLAN FOR NEXT VISIT: Functional strengthening, Bioness with quad only. CV endurance, upright bike SUBJECTIVE: . My pump is all messed up but I am doing okay. Better then last week. Functional Limitations: rising from a chair, standing, walking, walking in the house, walking in the community, physical activities, recreational activities Pain: PROMIS Scales Higher is Better 08/31/2022 06/16/2022 03/27/2022 Phys Func - Score 38 (moderate dysfunction) 38 (moderate dysfunction) 43 (mild dysfunction) Phys Func - Percentile 12 % 12 % 24 % Self-Eff Symptom - Score - - - Self-Eff Symptom - Percentile - - - T-scores: mean of general population = 50. 5 points is clinically meaningfully difference Percentiles provide an indication of how the patient's score ranks in relation to the general population. Higher percentile rankings indicate better function/quality of life. 50th percentile is the average of the general population and indicates half of respondents had a worse score. OBJECTIVE MEASURES WITH LEVEL OF FUNCTION: LE Strength R Hip Extension: 2-/5 R Hip Flexion (L2): 3/5 R Hip ABduction: 3+/5 R Knee Extension (L3): 4/5 R Knee Flexion: 4-/5 R Ankle Dorsiflexion (L4): 4/5 L Hip Extension: 2-/5 L Hip Flexion (L2): 2+/5 L Hip ABduction: 3-/5 L Knee Extension (L3): 4/5 L Knee Flexion: 3+/5 L Ankle Dorsiflexion (L4): 4/5 Tone Clonus Comments: sustained bilaterally Balance Static Standing Balance Comments: Unsupported standing at FWW: 6 seconds Functional Performance Test Results Assistive Device: Wheeled Walker 10 Meter Walk Test Trial 1 (seconds): 24.9 (No Bioness) 10 Meter Walk Test Average (m/sec): 0.24 2 Minute Walk Test (feet): 50 feet (No Bioness) 2 Minute Walk Test Gait Speed (calculated): 0.13 m/s TREATMENT: Neuromuscular Re-Education: 1: PN / Re-Cert completed - see objective for detail 2: Seated hamstring stretch 30 sec x3 3: *SL modified plank x10 bilat 4: *Supine glute bridge x10 5: *Supine SKTC 2x10 bilat - use of towel for LLE 6: *Seated SAQ to promote TKE to failire 7: Blocked practice of Sit <> stand from mat table to fatigue with FWW, SBA, emphasis on TKE - increased difficulty on this date. Skilled Intervention: Skilled judgment used to assess appropriate program for balance and coordination activity. Ensured patient safety with use of gait belt. Reviewed and educated patient on additions/changes for home program as noted above with an (*). Patient education as noted. Billing Neuromuscular Re-Education Treatment Minutes: 72 Total Treatment Time Minutes (timed/untimed): 85 Conrad Dodd PT documented in this encounterA[facility]03-10-2023 History of Present illness Narrative* Conrad Dodd PT - 08/25/2022 8:43 AM EST Episode Visit Count: 72 Therapist That Will Accept/Oversee The Plan Of Care: Annette Ramsey Start of Care Date: 07/14/20 Onset Date: 11/07/12 Plan of Care Certification Date: 06/08/22 Next Certification Due Date: 09/06/22 REHABILITATION AND SPORTS THERAPY PHYSICAL THERAPY TREATMENT NOTE ASSESSMENT: Mateus Manzano tolerated the session with decreased endurance, fatigue, and expected muscle soreness. He demonstrated difficulty with increase muscle tone during ambulation trials fatigueduring functional strengthening and improvements in overall ability to get TKE with bioness and gait speed on this date. The patient will continue to benefit from ongoing skilled physical therapy to progress toward set goals and for reassessment by supervising therapist. PLAN FOR NEXT VISIT: PN / Re-Cert, Functional strengthening, Bioness with quad only. CV endurance, upright bike SUBJECTIVE: Doing good. I am going to the chiropractor 1x/week so it is helping my pain. I have noticed a decrease in pain and inflammation in my back since the stem cells. Pain: OBJECTIVE MEASURES WITH LEVEL OF FUNCTION: Functional Performance Test Results Assistive Device: Wheeled Walker 10 Meter Walk Test Trial 1 (seconds): 16.8 (No Bioness) 10 Meter Walk Test Average (m/sec): 0.36 2 Minute Walk Test (feet): 75 feet (1:20) 2 Minute Walk Test Gait Speed (calculated): 0.19 m/s TREATMENT: Neuromuscular Re-Education: 1: Bioness set-up, pt-directed/supervision, Tablet 2; quad cuff in use only 2: -Sit <> stand from mat table to fatigue with FWW, SBA. bioness in functional training mode. 6 on:15 off - emphasis on TKE - increased difficulty on this date. 3: -Static balance without UE support ~10 bouts to fatigue - good carryover on this date. 4: -Ambulation with FWW without BIONESS - w/c follow from PT. ~75 ft x1 + 15 ft x1 - heavy UE support on this date and increase tone noted 5: Leg Press: 6: -1 rep max @200# 7: -1 Rep max @ 220 8: -additional trial of 240 - unable to complete on this date 9: -140# x5 reps to fatigue Skilled Intervention: Skilled judgment used to assess appropriate program for balance and coordination activity. Ensured patient safety with use of gait belt. Patient education as noted. Billing Neuromuscular Re-Education Treatment Minutes: 60 Total Treatment Time Minutes (timed/untimed): 60 Conrad Dodd PT documented in this encounterAdena [facility]02-22-2023 History of Present illness Narrative* Conrad Dodd PT - 08/09/2022 10:22 AM EST Episode Visit Count: 71 Therapist That Will Accept/Oversee The Plan Of Care: Annette Ramsey Start of Care Date: 07/14/20 Onset Date: 11/07/12 Plan of Care Certification Date: 06/08/22 Next Certification Due Date: 09/06/22 REHABILITATION AND SPORTS THERAPY PHYSICAL THERAPY TREATMENT NOTE ASSESSMENT: Mateus Manzano tolerated the session with fatigue and expected muscle soreness. He demonstrated difficulty with TKE during static standing at FWW and improvements in tolerance to isolatedquad and hamstring strengthening. The patient will continue to benefit from ongoing skilled physical therapy to progress toward set goals. PLAN FOR NEXT VISIT: Functional strengthening, Bioness with quad only. CV endurance, upright bike SUBJECTIVE: I am doing okay. Feeling good. Legs are a little bouncy. I went to the chiropractor a few days ago. Pain: Pain Pain Location: Back OBJECTIVE MEASURES WITH LEVEL OF FUNCTION: TREATMENT: Neuromuscular Re-Education: 1: Bioness set-up, pt-directed/supervision, Tablet 2; quad cuff in use only 2: - Sit <> stand from mat table to fatigue with FWW, SBA. bioness in functional training mode. 6 on:15 off - emphasis on TKE - increased difficulty on this date. 3: Supine SAQ to fatigue with upper cuffs only 4: Supine SLR over bolster - upper cuffs only to fatigue 5: Glute bridge x10 - good clearance. 6: Trial recumbent bike to fatigue Skilled Intervention: Skilled judgment used to assess appropriate program for balance and coordination activity. Patient education as noted. Billing Neuromuscular Re-Education Treatment Minutes: 54 Total Treatment Time Minutes (timed/untimed): 58 Conrad Dodd PT documented in this encounterAdena [facility]02-09-2023 History of Present illness Narrative* Conrad Dodd PT - 07/27/2022 9:27 AM EST Episode Visit Count: 70 Therapist That Will Accept/Oversee The Plan Of Care: Annette Ramsey Start of Care Date: 07/14/20 Onset Date: 11/07/12 Plan of Care Certification Date: 06/08/22 Next Certification Due Date: 09/06/22 REHABILITATION AND SPORTS THERAPY PHYSICAL THERAPY TREATMENT NOTE ASSESSMENT: Mateus Manzano tolerated the session with fatigue and expected muscle soreness. He demonstrated difficulty with isolated hamstring curl and improvements tolerance to muscle engagement with stimualtion. The patient will continue to benefit from ongoing skilled physical therapy to progress toward set goals. PLAN FOR NEXT VISIT: Functional strengthening, Bioness with quad only. CV endurance, upright bike SUBJECTIVE: I have had a rough couple days. I have had a lot of pain since Sunday. I did some stem cell injections. I went to the chiropractor to help with some pain. Pain: Pain Pain Level: 5 Pain Location: Back OBJECTIVE MEASURES WITH LEVEL OF FUNCTION: TREATMENT: Neuromuscular Re-Education: 1: Bioness set-up, pt-directed/supervision, Tablet 2; quad cuff in use only (On this date - diffiuclty time linking Bioness unit -did not continue to use Left upper cuff.) 2: - Sit <> stand from mat table to fatigue with FWW, SBA. bioness in functional training mode. 6 on:15 off - emphasis on TKE - good carryover on this date. multiple trials. 3: Bioness set-up to hamstrings and utilized E-stim machine for LUE hamstring 4: -Prone hamstring curl to fatigue with bioness on R hamstring and E-Stim unit on left. multiple trials. 5: Prone press up for hip flexor stretch 6: Quadruped kneeling for WB - x3 minutes Skilled Intervention: Skilled judgment used to assess appropriate program for balance and coordination activity. Patient education as noted. Billing Neuromuscular Re-Education Treatment Minutes: 55 Total Treatment Time Minutes (timed/untimed): 60 Conrad Dodd PT [facility] History of Present illness Narrative* Conrad Dodd PT - 07/20/2022 9:25 AM EST Episode Visit Count: 69 Therapist That Will Accept/Oversee The Plan Of Care: Annette Ramsey Start of Care Date: 07/14/20 Onset Date: 11/07/12 Plan of Care Certification Date: 06/08/22 Next Certification Due Date: 09/06/22 REHABILITATION AND SPORTS THERAPY PHYSICAL THERAPY TREATMENT NOTE ASSESSMENT: Mateus Manzano tolerated the session with fatigue and expected muscle soreness. He demonstrated difficulty with LE clonus initially and improvements in strengthening progressions and active terminal knee extension. The patient will continue to benefit from ongoing skilled physical therapy to progress toward set goals. PLAN FOR NEXT VISIT: Functional strengthening, Bioness with quad only. CV endurance, upright bike SUBJECTIVE: Doing okay. I may be getting stem cell injections. Pain: Pain Pain Level: 2 Pain Location: Back OBJECTIVE MEASURES WITH LEVEL OF FUNCTION: TREATMENT: Neuromuscular Re-Education: 1: Bioness set-up, pt-directed/supervision, Tablet 2; quad cuff 2: Seated hamstring stretch 20 sec x3 bilat 3: - Sit <> stand from mat table to fatigue with FWW, SBA. bioness in functional training mode. 15 on:20 off - emphasis on TKE - good carryover on this date. multiple trials. 4: Leg press: no Bioness 5: -100# 6x10 - emphasis on TKE and eccentric lowering 6: -160 x1 reps + 180 x1 rep - unable to complete full range due to fatgiue @180 Skilled Intervention: Skilled judgment used to assess appropriate program for balance and coordination activity. Patient education as noted. Billing Neuromuscular Re-Education Treatment Minutes: 60 Total Treatment Time Minutes (timed/untimed): 65 Conrad Dodd PT documented in this [facility] History of Present illness Narrative* Ceferino Regalado MD - 07/19/2022 12:26 PM EST HISTORY OF PRESENT ILLNESS: Mateus Manzano is a 36 year old male who complains of an episode of epididymitis which is treated and resolved. He is feeling great now 12/28/2020: C&P: (-) He has a history of of neurogenic bladder. 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 He performs clean intermittent catheterization approximately 6 times daily. He also struggles erectile dysfunction and treats this with sildenafil 20 mg every other day. @SHIELA@ PSA (ng/mL) Date Value 03/08/2022 0.57 GLUCOSE UA (POCT) Negative 07/19/2022 BILIRUBIN UA (POCT) Negative 07/19/2022 KETONE UA (POCT) Negative 07/19/2022 SPECIFIC GRAVITY UA (POCT) 1.015 07/19/2022 HEMOGLOBIN/BLOOD UA (POCT) Negative 07/19/2022 PH UA (POCT) 7.0 07/19/2022 PROTEIN UA (POCT) Negative 07/19/2022 UROBILINOGEN UA (POCT) 0.2 07/19/2022 NITRITE UA (POCT) Negative 07/19/2022 LEUKOCYTES UA (POCT) Negative 07/19/2022 COLOR UA (POCT) Yellow 07/19/2022 CLARITY UA (POCT) Clear 07/19/2022 ALLERGIES: ALLERGIES Allergen Reactions Piperacillin-Tazoba* Hives Patient states he can tolerate penicillin and amoxicillin and has tolerated since the Zosyn reaction. There are no [facility] administrations of penicillins. Patient states he has tolerated oral cephalosporins in the past. There are outpatient prescription records for cephalexin listed in [facility]. Zosyn [Piperacillin* Hives Hydrocodone-Acetami* Other: See Comments headaches Codeine Intolerance, Other: See Comments nightmares MEDICATIONS: hydrOXYzine pamoate (VISTARIL) 25 mg capsule^Take 1 capsule by mouth three times daily as needed for itching/rash or anxiety.^Disp: 30 capsule^Rfl: 1 clomiPHENe (SEROPHENE) 50 mg tablet^Take 1 tablet by mouth every other day. (take on ODD days)^Disp: 30 tablet^Rfl: 5 sildenafil (REVATIO) 20 mg tablet^TAKE 1 TABLET BY MOUTH DIRECTED (may take up to 5 (FIVE) TABLETS 1 (ONE) hour prior to sexual activity)^Disp: 30 tablet^Rfl: 5 Tadalafil (CIALIS) 5 mg tablet^Take 1 pill daily^Disp: 90 tablet^Rfl: 5 XARELTO 20 mg tablet^Take 1 tablet by mouth once daily.^Disp: 30 tablet^Rfl: 11 ondansetron orally disintegrating (ZOFRAN ODT) 4 mg disintegrating tablet^Take 1 tablet by mouth every 8 hours as needed for nausea/vomiting.^Disp: 12 tablet^Rfl: 0 acetaminophen (TYLENOL EXTRA STRENGTH) 500 mg tablet^Take 2 tablets by mouth every 6 hours as needed for pain.^Disp: 30 tablet^Rfl: 0 albuterol HFA (PROVENTIL HFA, VENTOLIN HFA) 90 mcg/actuation inhaler^Inhale 2 Puffs as instructed every 4 hours as needed for wheezing/shortness of breath.^Disp: ^Rfl: baclofen (LIORESAL) 10 mg tablet^Take 10 mg by mouth twice daily.^Disp: ^Rfl: baclofen, LIORESAL, (LIORESAL) 2,000 mcg/mL injection^[employer] ITB refill Kit #[id number], Lioresal 2000mcg/ml, 40 ml pump to be refilled as directed.^Disp: ^Rfl: docusate sodium (COLACE) 100 mg capsule^Take 100 mg by mouth twice daily.^Disp: ^Rfl: Pregabalin (LYRICA) 200 mg capsule^Take 200 mg by mouth twice daily.^Disp: ^Rfl: tiZANidine (ZANAFLEX) 2 mg tablet^Take 2 mg by mouth twice daily.^Disp: ^Rfl: lidocaine (XYLOCAINE) 5 % ointment^Apply to affected area as needed.^Disp: ^Rfl: morphine SR (MS CONTIN, ORAMORPH SR) 15 mg 12 hr tablet^Take 1 tablet by mouth every 12 hours for 5days.^Disp: 10 tablet^Rfl: 0 cabergoline (DOSTINEX) 0.5 mg tablet^Take 1 tablet by mouth every Sunday and .^Disp: 30 tablet^Rfl: 3 (Patient not taking: No sig reported) HISTORIES: PAST MEDICAL HISTORY Diagnosis Date Asthma 08/05/2021 Clotting disorder ([facility]) HUGH-1 DVT (deep venous thrombosis) ([facility]) 2012 ED (erectile dysfunction) Factor 5 Leiden mutation, heterozygous ([facility]) History of spinal cord injury 03/03/2015 Lower urinary tract infectious disease Methylenetetrahydrofolate reductase (MTHFR) gene mutation MRSA (methicillin resistant Staphylococcus aureus) 10/2012 spine Neurogenic bladder self straight catheterization KARAN (obstructive sleep apnea) pt never got a cpap; pt unsure if he needed one KARAN (obstructive sleep apnea) 08/05/2021 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 FAMILY HISTORY Problem Relation Age of Onset Diabetes Father other (factor v leiden) Father homozigus carries mthfr other (factor v leiden) Mother homozigus carries pie 1 Cancer Paternal Grandfather Heart disease Paternal Grandfather Cancer Paternal Grandmother leukemia Heart Paternal Grandmother Anesthesia Problems No Family History Social History Tobacco Use Smoking status: Every Day Packs/day: 1.00 Years: 18.00 Pack years: 18.00 Types: Cigarettes Smokeless tobacco: Former Types: Chew Quit date: 01/19/2005 Vaping Use Vaping Use: Never used Substance Use Topics Alcohol use: Yes Comment: rarely Drug use: No REVIEW OF SYSTEMS: Const: Well appearing, in no acute distress, well-hydrated, well-nourished, alert, awake, oriented to time, place and person. : See HPI The remainder of the ROS was reviewed and is negative. PHYSICAL EXAMINATION: BP 124/76 Ht 193 cm (6' 4) Wt 132 kg (291 lb) BMI 35.42 kg/m Const: Well appearing, in no acute distress, well-hydrated, well-nourished, alert, awake, oriented to time, place and person. I personally reviewed the patient's radiology images and dictation and I agree with the radiologist's opinion. I personally reviewed the patient's laboratory studies. IMPRESSION: PLAN: Epididymitis continue to resolved 10 you follow-up with Dr. Armas Written and verbal health teaching given to patient, patient verbalizes understanding and agrees with treatment plan. Patient will call if worsening symptoms, no improvement, or any other concerns. Plan discussed. Ceferino Regalado MD Electronically Signed: Ceferino Regalado MD July 19, 2022 12:27 PM This note was partially created using voice recognition software and is inherently subject to errors including those of syntax and sound-alike substitutions which may escape proofreading. In such instances, original meaning may be extrapolated by contextual derivation. Medical Decision Making: Problems: Moderate: New problem with uncertain prognosis Data: Unique test result(s) reviewed: 1 Risk: Low: Low risk from testing/treatment Medical Decision Making Level: 3 - Low documented in this [facility]01-26-[facility] History of Present illness Narrative* Conrad Dodd, PT - 07/13/2022 9:25 AM EST Episode Visit Count: 68 Therapist That Will Accept/Oversee The Plan Of Care: Annette Ramsey Start of Care Date: 07/14/20 Onset Date: 11/07/12 Plan of Care Certification Date: 12/22/22 Next Certification Due Date: 09/06/22 REHABILITATION AND SPORTS THERAPY PHYSICAL THERAPY TREATMENT NOTE ASSESSMENT: Mateus Manzano tolerated the session with fatigue and expected muscle soreness. He demonstrated difficulty with TKE and clonus on this date and improvements in tolerance to functional strengthening and isolated quad strengtehning. The patient will continue to benefit from ongoing skilled physical therapy to progress toward set goals. PLAN FOR NEXT VISIT: Functional strengthening, Bioness with quad only. CV endurance, upright bike SUBJECTIVE: Last night was a little rough, my legs were really jumpy. I didn't sleep much but my back doesn't hurt. Pain: Pain Pain Level: 0 Pain Location: Back OBJECTIVE MEASURES WITH LEVEL OF FUNCTION: TREATMENT: Neuromuscular Re-Education: 1: Discussed obtaining bioness - discussed getting medicaid ed case manager number to process obtaining upper cuffs. 2: Bioness set-up, pt-directed/supervision, Tablet 2; quad cuff 3: - Sit <> stand from mat table to fatigue with FWW, SBA. bioness in functional training mode. 15 on:20 off 4: -Supine SAQ for TKE to fatigue - bioness in functional training mode 6 sec on: 15 off to fatigue. therapist present for intensity modification and parameter adjustments 5: Ambulation with FWW ~107 ft x1 30 ft x1- w/c follow for safety . -difficulty with TKE and clonuson this date. Skilled Intervention: Skilled judgment used to assess appropriate program for balance and coordination activity. Ensured patient safety with use of gait belt. Patient education as noted. Billing Neuromuscular Re-Education Treatment Minutes: 55 Total Treatment Time Minutes (timed/untimed): 65 Conrad Dodd PT documented in this [facility]01-23-[facility]23 Instructions* Patient Instructions* Ruslan Sherwood MD - 07/10/2022 9:49 AM EST POST-BOTOX INJECTIONS You have received botulinum toxin injections today. The skin around the site of injections should be monitored for a couple of days. If redness or swelling occur, the skin should be examined by a health career advisor to rule out infection. Please contact our office via [employer] or by phone at [phone] any time with any questions or concerns. Please note that your next injections should not be scheduled less than 90 days from today. documented in this encounterA[facility]01-23-2023 History of Present illness Narrative* Ruslan Sherwood MD - 07/10/2022 8:31 AM EST BOTULINUM TOXIN THERAPY Patient accompanied by : self Dr Case Waldrop, TBI Fellow, assisted with today's encounter. Current complaints / history since last visit: most recent botulinum toxin injections on 03/28/2022. Injections were effective for spasticity and function, but lasted slightly less than previous - only 2 months compared to 2.5 months. Recent increase in ITB pump rate has been effective, not interested in further changes today. Illnesses / hospitalizations since the last visit: None Other updates: No recent UTIs. He is not on Abx. Anticoagulation: on Xarelto Home stretching/exercise routine: consistently PT/OT: currently in program for outpatient PT locally in [place]. Does prescribed PT home exercises Use of oral medications for spasticity: baclofen 10mg twice daily; tizanidine 2mg up to twice a day BT therapy effective? Yes - stiffness, spasms/cramps, pain/discomfort, ease of care and active function (Assists with participation at PT) Duration of benefit: 8 weeks Side effects: No Spasm scale: 1=Mild spasms induced by stimulation Pain related to the purpose of the visit: Yes LOCATION: lower back PAIN SCALE: 2 on a scale of 0-10 PAIN CHARACTER: achy, constant Patient Entered Data PROMIS No flowsheet data found. Spasticity NRS 07/10/2022 07/10/2022 06/16/2022 04/04/2022 03/27/2022 Spasticity Level 3 - 4 4 3 Spasm Scale - 1=Mild spasms induced by stimulation - - - Spasm Scale - Trendable Number - 1 - - - Spasm Scale 07/10/2022 06/16/2022 04/04/2022 03/27/2022 12/26/2021 Spasm Frequency Mild spasms induced by stimulation Mild spasms induced by stimulation Infrequent full spasms occuriung less than once per hour Mild spasms induced by stimulation Mild spasms induced by stimulation Spasm Severity Mild Mild Mild Mild Mild Global Impression of Change 07/10/2022 06/16/2022 04/04/2022 03/27/2022 12/26/2021 Rehab global impression of change Much improved Much improved Much improved Much improved Much improved Nutritional status: still reports: appetite- good, intentional weight loss says he's down 280, swallowing- denies dysphagia Driving issues: NA Safety concerns regarding living situations and safety at home: No At risk for falling: Yes . Actual falls since last visit: 0frequency/number - none, denies any recent injuries. Review of Systems Constitutional: Negative for appetite change, fever, recent unintentional weight loss and recent weight gain. Musculoskeletal: Positive for muscle weakness. Respiratory: Negative. Cardiovascular: Negative. Examination 07/10/22927 Weight: 132 kg (291 lb) Strength Right Left Shoulder abduction 5 5 Elbow flexion 5 5 Elbow extension 5 5 Wrist extension 5 5 Fur Matcher strength (kg) 66 70 Hip flexion 2 1 Knee flexion 3 3 Knee extension 3 3 Plantarflexion 4 4 Dorsiflexion 3 1 Spasticity Right Left Shoulder 0 0 Elbow flexion 0 0 Elbow extension 0 0 Wrist flexion 0 0 Wrist extension 0 0 Finger flexion 0 0 Finger extension 0 0 Hip adduction 0 0 Knee extension 0. 0 Knee flexion 1 0 Plantarflexion 1 1 Modified Dannie Scale 0 - No increase in tone 1 - Slight increase in tone (catch and release at end of ROM) 1+ - Slight increase in tone, manifested by a catch, followed by minimal resistance throughout remainder (less than half of ROM) 2 - Marked increase in tone through most of the ROM, but affected part(s) easily moved 3 - Considerable increase in tone; passive movement difficult 4 - Affected part(s) rigid in flexion or extension + Clonus in the ankle that was sustained. Spasms observed: RUE: no right upper extremity spasms LUE: no left upper extremity spasms RLE: right lower extremity spasms ankle clonus LLE: no left lower extremity spasms ankle clonus Timed 25 foot walk: N/A Assistance required: wheelchair Ambulation Index Score: 9 - Restricted to wheelchair, dependent for transfers UNIVERSAL PROTOCOL / SAFETY CHECKLIST Procedure to be Performed: Botulinum toxin injections Sign In: A Moment of CARE was completed. Personnel directly involved with the procedure wore the appropriate PPE (Personal Protective Equipment). Patient/Surrogate Stated/Verified: PATIENT VERIFIED(optional for EMERGENT procedures): Patient name, Date of , Relevant allergies and The intended procedure Time Out Communication: Intended patient and procedure match the source documents. Consent documented and matches the intended procedure. Sign Out: SIGN OUT (optional for EMERGENT procedures): None Ruslan Sherwood MD UNIVERSAL PROTOCOL / SAFETY CHECKLIST The risks, benefits and alternatives of the procedure were explained. Written Consent Obtained: yes - 12/13/2020 Clinician(s) performing the injections: Ruslan Sherwood MD and Case Waldrop MD Operations Examiner: Jona Gates RN The patient was positioned supine . Brand of toxin injected: Botox. After skin preparation with alcohol, a total dose of 100 units were injected as follows: Muscle Limb/Side Dose Guidance Comments Iliopsoas RLE 50 units EMG/US 2 sites - Images saved Iliopsoas LLE 50 units EMG/US 2 sites - Images saved Total Dose: 100 Dilution: 100 units / 2 ml LOT #: [id number] Expiration Date: Month: 3 Year: 25 The injections were well-tolerated. Minimal bleeding occurred at the injection sites. Assessment: (R25.2) Spasticity (primary encounter diagnosis) (G82.20) Paraplegia (HCC) (S24.103A) Spinal cord injury at T7-T12 level ([facility]) Mr Manzano is known to our spasticity practice due to SCI with severe spasticity. Spasticity is managed and controlled with ITB Therapy. We have been targeting BT injections in the iliopsoas bilaterally to assist with management of reported stiffness in the hip flexors, albeit a shorter duration. Hecontinues to experience benefit from these botulinum toxin injections and agrees to injecting the same dose. Current ITB rate is leading to improved control of his LE spasticity. No further rate adjustments are necessary. Plan: 1 - Repeat injections in 3 months, 100 units. No changes made to dose or muscle selection today. Transfers independently 2 - PT/OT: currently in outpatient neuro rehab program working on gait training with [facility] 3 - ITB pump management and refill here at the [facility] 4 - A copy of the note will be sent via Embarkly to: Dr Vijay Roque Time spent with patient: 45 mn. Patient seen and procedure performed with attending physician Dr. Sherwood. Case Waldrop MD Brain Injury Medicine Fellow, PGY5 TEACHING PHYSICIAN NOTE OF PERSONAL INVOLVEMENT IN CARE I have reviewed the Progress Note obtained and documented by Dr Case Waldrop. I personally participated in the joseph components and supervised the entire procedure. I have discussed the case and management of the patient's care with them, and agree with above assessment and plan. Patient with a hx of SCI, spastic paraplegia who is sp ITB pump for spasticity management. Botox injections have focally addressed hip flexors, but notes that symptoms on the right are insidiously worsening. Total dose and muscles injected were kept the same. Recent increase with ITB pump has led to marked control of LE spasticity. Ruslan Sherwood MD documented in this [facility]01-19-2023 History of Present illness Narrative* Sima Baker RN - 07/06/2022 10:09 AM EST 1011: Patient here for day four of Ketamine infusion. Patient educated on medications to be administered. Confirmed NPO > 6 hours and has transportation home. Patient verbalized understanding and agreed to proceed with infusions. Monitor alarm limits are set and alarms are audible. 1200: Pt tolerated infusions well. Discharged from treatment room to drivers' cash clerk in the lobby. documented in this encounterA[facility]01-18-[facility] History of Present illness Narrative* Sima Baker RN - 07/05/2022 10:37 AM EST 1023: Patient here for day three of Ketamine infusion. Patient educated on medications to be administered. Confirmed NPO > 6 hours and has transportation home. Patient verbalized understanding andagreed to proceed with infusions. Monitor alarm limits are set and alarms are audible 1215: Patient here for day three of Ketamine infusion. Patient educated on medications to be administered. Confirmed NPO > 6 hours and has transportation home. Patient verbalized understanding andagreed to proceed with infusions. Monitor alarm limits are set and alarms are audible. documented in this [facility]01-17-2023 History of Present illness Narrative* Jimena Ballard RN - 07/04/2022 10:32 AM EST Patient here for day 2 of Ketamine infusion. Patient educated on medications to be administered. Confirmed NPO > 6 hours and has transportation home. Patient verbalized understanding and agreed toproceed with infusions. Monitor alarm limits are set and alarms are audible Infusion complete, patient tolerated well. IV removed and patient discharged from infusion room to drivers' cash clerk documented in this [facility]01-16-2023 History of Present illness Narrative* Sima Baker RN - 07/03/2022 10:31 AM EST 1036: Patient here for day one of Ketamine infusion. Patient educated on medications to be administered. Confirmed NPO > 6 hours and has transportation home. Patient verbalized understanding and agreed to proceed with infusions. Monitor alarm limits are set and alarms are audible 1150: PRN versed given for agitation and high BP. Bolus also held d/t high BP. 1247: Pt discharged from treatment room to drivers' cash clerk in the lobby. documented in this [facility]01-11-2023 History of Present illness Narrative* Conrad Dodd, PT - 06/28/2022 9:38 AM EST Episode Visit Count: 67 Therapist That Will Accept/Oversee The Plan Of Care: Annette Ramsey Start of Care Date: 07/14/20 Onset Date: 11/07/12 Plan of Care Certification Date: 06/08/22 Next Certification Due Date: 09/06/22 REHABILITATION AND SPORTS THERAPY PHYSICAL THERAPY TREATMENT NOTE ASSESSMENT: Mateus Manzano tolerated the session with fatigue and expected muscle soreness. He demonstrated difficulty with endurance levels on this date and improvements in TKE with use of bioness quad cuff. The patient will continue to benefit from ongoing skilled physical therapy to progress toward set goals. PLAN FOR NEXT VISIT: Functional strengthening, Bioness with quad only. CV endurance, upright bike SUBJECTIVE: Doing good. No new comments. I did a lot of work over the past few weeks. Pain: Pain Pain Location: Back Description: Sore OBJECTIVE MEASURES WITH LEVEL OF FUNCTION: TREATMENT: Neuromuscular Re-Education: 1: Bioness set-up, pt-directed/supervision, Tablet 2; quad cuff 2: - Sit <> stand from mat table to fatigue with FWW, SBA. bioness in functional training mode. 15 on:15 off 3: -Toe tap to 4 step - to fatigue 4: -Trial static standing balance at FWW with no UE support with emphasis on TKE . ~ 5 sec bouts. Fatigue noted 5: Adjusted quad cuff and edu patient on proper placement for proper muscle engagment and activation. 6: Ambulation with FWW ~20 ft - w/c follow for safety . Skilled Intervention: Skilled judgment used to assess appropriate program for balance and coordination activity. Patient education as noted. Billing Neuromuscular Re-Education Treatment Minutes: 55 Total Treatment Time Minutes (timed/untimed): 55 Conrad Dodd PT documented in this encounterA[facility]12[facility]30-[facility] History of Present illness Narrative* Amarilys Mak, IMPORT DISPATCHER.[facility] - 06/16/2022 9:30 AM EST Images from the original note were not included. INTRATHECAL BACLOFEN THERAPY MANAGEMENT VISIT Patient unaccompanied. PAST SURGICAL HISTORY Procedure Laterality Date IMPLTJ/RPLCMT ITHCL/EDRL DRUG NFS PRGRBL PUMP 03/02/2015 SynchroMed II, 40 ml pump with catheter tip at T9 - Informed consent sigend on 03/03/15 (paper form) IMPLTJ/RPLCMT ITHCL/EDRL DRUG NFS PRGRBL PUMP 10/13/2016 Revision of ITB catheter due to malfunction PAST SURGICAL HISTORY OF 11/09/2012 laminectomy T-4-T-12 PAST SURGICAL HISTORY OF 2002 ORIF with pins right hand PAST SURGICAL HISTORY OF 2012 filter placement for DVT PAST SURGICAL HISTORY OF percutaneous vascular procedure PAST SURGICAL HISTORY OF neck surgery REVISE MEDIAN N/CARPAL TUNNEL SURG Bilateral 2020 HISTORY SINCE LAST VISIT: Pt. last seen in spasticity clinic for pump refill on 04/04/22, plan at that time was: PLAN: 1. ITB pump refilled, rate increase of 5% 2. Continue oral baclofen and tizanidine at current doses 3. Continue OP therapy, regular stretching and exercise encouraged 4. Next botox scheduled in June with Dr. Sherwood 5. Consider a referral to Dr. Sullivan for SCI management 6. F/U: ITB refill 06/16/22 at 930 am - [place]. Alarm date is 06/25/22. He returns for ITB pump refill today. He feels that the rate increase done at last visit was helpful and helped to calm down the increased symptoms he was having, especially in the RLE. He denies any new or worsening spasms or pain today. He continues to follow with pain management (Dr. Hernandez), who manages pt.'s ketamine infusions for his chronic pain. Per Dr. Hernandez's previous notes, they will consider weaning opioids in the future if pt. continues to have good relief with ketamine infusions. He continues to do OP PT locally in [place] once weekly and finds this helpful. He performs regular stretching and HEP at least daily. He uses bioness devices in therapy, which allows him to stand and ambulate with assistance (states he can walk approx. 195 feet with the device and a walker, about 80 feet without the bioness). His therapists are working on obtaining a Bioness device for him to use at home. Of note, he was seen in urgent care earlier this week with c/o testicular swelling. He underwent anUS and was diagnosed with epididymitis and urine culture was +ve for E. coli. He was started on levaquin (which he continues on presently), and advised to follow-up with urology. Exercise / stretching / rehabilitation: PT and daily stretching/exercise Use of oral medications for spasticity: baclofen 10 mg BID, tizanidine 2 mg BID. Also on pregabalin. Patient Entered Data PROMIS No flowsheet data found. Spasticity NRS 04/04/2022 03/27/2022 03/27/2022 02/03/2022 12/26/2021 Spasticity Level 4 3 - 3 5 Spasm Scale - - 1=Mild spasms induced by stimulation - - Spasm Scale - Trendable Number - - 1 - - Spasm Scale 04/04/2022 03/27/2022 12/26/2021 09/06/2021 09/06/2021 Spasm Frequency Infrequent full spasms occuriung less than once per hour Mild spasms induced by stimulation Mild spasms induced by stimulation Mild spasms induced by stimulation Mild spasms induced by stimulation Spasm Severity Mild Mild Mild Mild Mild Global Impression of Change 04/04/2022 03/27/2022 12/26/2021 09/06/2021 09/06/2021 Rehab global impression of change Much improved Much improved Much improved Much improved Much improved Pain related to the purpose of the visit: No 0 on a scale of 0 to 10 Safety concerns: domestic violence, living situation, and safety at home: No, lives with and 4daughters. He is able to ambulate short distances with a walker and is ambulating longer distances with a walker and bioness device in therapy Driving issues: None reported- uses hand controls Risk of Falls: Yes, but no recent falls Change in bowel habits: None reported Change in urinary symptoms suggesting UTI: Recently seen in urgent care for testicular swelling as detailed above. Urine testing done at the time was +ve for E. Coli, he denies urinary symptoms today. Skin Integrity: Intact per pt. report. Appetite: continues to lose weight intentionally, down to around 280 lbs. NSGY has recommended he wear a binder when he is active (ie- lifting weights) to keep his pump from protruding too much. Review of Systems Constitutional: Continues to actively lose weight, has lost 80 lbs to date, plans to lose 20 more (currently weighsaround 280). Skin: Negative for rash and ulceration. HENT: Negative for trouble swallowing. Musculoskeletal: Positive for arthralgias, back pain, myalgias and muscle weakness. Genitourinary: Positive for frequent urinary infection, dysuria and indwelling catheter. +ve SPC Neurological: Positive for sleep disturbance. Psychiatric: Sleep remains interrupted, sleeps about 2-3 hours at a time. occasionally awakens from spasms. EXAM: Position: Sitting General: awake and alert, NAD, very pleasant, no dysarthria Abdomen: RLQ surgical incision healed, ASSURANCE ASSOCIATE Strength Right Left Hip flexion 3 1 Knee flexion 2+ 2+ Knee extension 4+ 3+ Plantarflexion 4+ 4 Dorsiflexion 4 2 Spasticity Right Left Hip adduction 0 0 Knee extension 0. 0 Knee flexion 1 1 Plantarflexion 0 1 Modified Dannie Scale 0 - No increase in tone 1 - Slight increase in tone (catch and release at end of ROM) 1+ - Slight increase in tone, manifested by a catch, followed by minimal resistance throughout remainder (less than half of ROM) 2 - Marked increase in tone through most of the ROM, but affected part(s) easily moved 3 - Considerable increase in tone; passive movement difficult 4 - Affected part(s) rigid in flexion or extension Spasms observed: RUE: no right upper extremity spasms LUE: no left upper extremity spasms RLE: no right lower extremity spasms LLE: left lower extremity spasms clonus during exam Timed 25 foot walk: N/A Assistance required: wheelchair Ambulation Index Score: 8 - Restricted to wheelchair, independent for transfers Patient ID verified using 2 identifiers: Yes UNIVERSAL PROTOCOL / SAFETY CHECKLIST Procedure to be Performed: ITB pump refill Sign In: A Moment of CARE was completed. Personnel directly involved with the procedure wore the appropriate PPE (Personal Protective Equipment). Special equipment: Swapbox ITB refill kit Patient/Surrogate Stated/Verified: PATIENT VERIFIED(optional for EMERGENT procedures): Patient name, Date of , Relevant allergies and The intended procedure Time Out Communication: Intended patient and procedure match the source documents. Consent documented and matches the intended procedure. Relevant labs, photos, and/or imaging studies have been reviewed. No correct side/site applicable for marking and visibility. Medications required for procedure verified. Fire risk assessed and interventions discussed. No implant(s) inserted. Sign Out: SIGN OUT (optional for EMERGENT procedures): No specimen collected. All instruments, equipment, possible retained foreign bodies accounted for. Post-procedure follow-up management communicated and Plan of Care Visit completed when applicable. Amarilys Mak APRN.EUNICE The risks, benefits and alternatives of the procedure were explained. Written Consent Obtained: yes - 12/09/2018 Current Drug: Lioresal Drug Concentration: 2000 mcg/ml Current Rate: 917 mcg/day Current Dose schedule: Simple continuous Vice President Of Finance Residual: 6.7 ml Actual Residual: 7.5 ml Pump Refilled: Yes Program Change: No Bolus Given: No Estimated ZEB: 72 months (04/2028) Mehan alarm date: 09/06/2022 Final telemetry read and agrees with planned programming: Yes The skin over the baclofen pump was prepped and draped under sterile conditions. The pump refill port was accessed using the needle provided in the [employer]atronic kit. The reservoir was emptied, and refilled with 40 mL of medication as detailed below. The needle was withdrawn. The pump was reprogrammed as detailed above. Procedure completed without complications and pt. tolerated well. Medication lot #: [id number] Exp. Date: 02/2026 ASSESSMENT: (R25.2) Spasticity (primary encounter diagnosis) (G82.20) Paraplegia (HCC) (S24.103A) Spinal cord injury at T7-T12 level ([facility]) 36 yo male with severe spasticity in the setting of SCI. He noted good relief following pump rate increase done at last visit and now feels that symptoms are once again well controlled with ITB therapy, botox injections, OP therapy, and regular stretching/exercise. On exam, strength in BLE remains diminished, but stable/overall improved today. Mild tone is noted in the Left knee flexors and plantarflexors and Right knee flexors today, with clonus noted in the LLE during exam. Options discussed with patient and he would like to continue with current ITB pump rate. He will continue tizanidine and baclofen at current doses. He was encouraged to continue with OP therapy and with regular stretching and HEP. PLAN: 1. ITB pump refilled, rate unchanged 2. Continue oral baclofen and tizanidine at current doses 3. Continue OP therapy, regular stretching and exercise encouraged 4. Next botox scheduled in June with Dr. Sherwood 5. Consider a referral to Dr. Sullivan in the future for SCI management 6. F/U: ITB refill 08/31/22 at 11 am- [place]. Alarm date is 09/06/22. Amarilys Mak APRN.CNP June 16, 2022 10:30 AM documented in this encounterAdena [facility]12-28-2022 History of Present illness Narrative* Carlie Gustafson APRN.EUNICE - 06/14/2022 1:23 PM EST Subjective HPI HPI Mateus Manzano is a 36 year old male who presents today for CC of cloudy urine for few days, now having testicular swelling/pain. Has tried nothing for relief. Symptoms are worsened by nothing. Risk factors self catheterization multiple times/day, patient is paraplegic. Denies concerns for STD at this time. .Patient presents with: Testicle: swollen and tender x 2 days PAST MEDICAL HISTORY Diagnosis Date Asthma 08/05/2021 Clotting disorder (HCC) HUGH-1 DVT (deep venous thrombosis) ([facility]) 2012 ED (erectile dysfunction) Factor 5 Leiden mutation, heterozygous ([facility]) History of spinal cord injury 03/03/2015 Lower urinary tract infectious disease Methylenetetrahydrofolate reductase (MTHFR) gene mutation MRSA (methicillin resistant Staphylococcus aureus) 10/2012 spine Neurogenic bladder self straight catheterization KARAN (obstructive sleep apnea) pt never got a cpap; pt unsure if he needed one KARAN (obstructive sleep apnea) 08/05/2021 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 Recurrent UTI Sepsis ([facility]) 02/20/2021 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[facility]) PAST SURGICAL HISTORY Procedure Laterality Date IMPLTJ/RPLCMT ITHCL/EDRL DRUG NFS PRGRBL PUMP 03/02/2015 SynchroMed II, 40 ml pump with catheter tip at T9 - Informed consent sigend on 03/03/15 (paper form) IMPLTJ/RPLCMT ITHCL/EDRL DRUG NFS PRGRBL PUMP 10/13/2016 Revision of ITB catheter due to malfunction PAST SURGICAL HISTORY OF 11/09/2012 laminectomy T-4-T-12 PAST SURGICAL HISTORY OF 2002 ORIF with pins right hand PAST SURGICAL HISTORY OF 2012 filter placement for DVT PAST SURGICAL HISTORY OF percutaneous vascular procedure PAST SURGICAL HISTORY OF neck surgery REVISE MEDIAN N/CARPAL TUNNEL SURG Bilateral 2020 ALLERGIES Dxobxjupmgvp-Aerfbvzmyr-Znvdik, Zosyn [Piperacillin-Tazobactam], Hydrocodone-Acetaminophen, and Codeine MEDICATIONS hydrOXYzine pamoate (VISTARIL) 25 mg capsule^Take 1 capsule by mouth three times daily as needed for itching/rash or anxiety.^Disp: 30 capsule^Rfl: 1 clomiPHENe (SEROPHENE) 50 mg tablet^Take 1 tablet by mouth every other day. (take on ODD days)^Disp: 30 tablet^Rfl: 5 sildenafil (REVATIO) 20 mg tablet^TAKE 1 TABLET BY MOUTH DIRECTED (may take up to 5 (FIVE) TABLETS 1 (ONE) hour prior to sexual activity)^Disp: 30 tablet^Rfl: 5 Tadalafil (CIALIS) 5 mg tablet^Take 1 pill daily^Disp: 90 tablet^Rfl: 5 XARELTO 20 mg tablet^Take 1 tablet by mouth once daily.^Disp: 30 tablet^Rfl: 11 ondansetron orally disintegrating (ZOFRAN ODT) 4 mg disintegrating tablet^Take 1 tablet by mouth every 8 hours as needed for nausea/vomiting.^Disp: 12 tablet^Rfl: 0 cabergoline (DOSTINEX) 0.5 mg tablet^Take 1 tablet by mouth every Sunday and .^Disp: 30 tablet^Rfl: 3 acetaminophen (TYLENOL EXTRA STRENGTH) 500 mg tablet^Take 2 tablets by mouth every 6 hours as needed for pain.^Disp: 30 tablet^Rfl: 0 albuterol HFA (PROVENTIL HFA, VENTOLIN HFA) 90 mcg/actuation inhaler^Inhale 2 Puffs as instructed every 4 hours as needed for wheezing/shortness of breath.^Disp: ^Rfl: baclofen (LIORESAL) 10 mg tablet^Take 10 mg by mouth twice daily.^Disp: ^Rfl: baclofen, LIORESAL, (LIORESAL) 2,000 mcg/mL injection^Medtronic ITB refill Kit #[id number], Lioresal 2000mcg/ml, 40 ml pump to be refilled as directed.^Disp: ^Rfl: docusate sodium (COLACE) 100 mg capsule^Take 100 mg by mouth twice daily.^Disp: ^Rfl: Pregabalin (LYRICA) 200 mg capsule^Take 200 mg by mouth twice daily.^Disp: ^Rfl: tiZANidine (ZANAFLEX) 2 mg tablet^Take 2 mg by mouth twice daily.^Disp: ^Rfl: lidocaine (XYLOCAINE) 5 % ointment^Apply to affected area as needed.^Disp: ^Rfl: morphine SR (MS CONTIN, ORAMORPH SR) 15 mg 12 hr tablet^Take 1 tablet by mouth every 12 hours for 5days.^Disp: 10 tablet^Rfl: 0 FAMILY HISTORY Problem Relation Age of Onset Diabetes Father other (factor v leiden) Father homozigus carries mthfr other (factor v leiden) Mother homozigus carries pie 1 Cancer Paternal Grandfather Heart disease Paternal Grandfather Cancer Paternal Grandmother leukemia Heart Paternal Grandmother Anesthesia Problems No Family History Social History Tobacco Use Smoking status: Every Day Packs/day: 1.00 Years: 18.00 Pack years: 18.00 Types: Cigarettes Smokeless tobacco: Former Types: Chew Quit date: 01/19/2005 Vaping Use Vaping Use: Never used Substance Use Topics Alcohol use: Yes Comment: rarely Drug use: No Review of Systems Constitutional: Negative for chills, fever and weight loss. Respiratory: Negative for cough, shortness of breath and wheezing. Cardiovascular: Negative for chest pain and palpitations. Gastrointestinal: Negative for abdominal pain, blood in stool, constipation, diarrhea, heartburn, melena, nausea and vomiting. Genitourinary: Negative for dysuria, flank pain, frequency, hematuria and urgency. Musculoskeletal: Negative for myalgias. Objective Blood pressure 132/80, pulse 86, temperature 36.6 C (97.8 F), resp. rate 16, SpO2 95 %. Physical Exam Exam conducted with a dry ice maker present. Constitutional: General: He is not in acute distress. Appearance: He is not toxic-appearing or diaphoretic. HENT: Head: Normocephalic and atraumatic. Cardiovascular: Rate and Rhythm: Normal rate and regular rhythm. Heart sounds: Normal heart sounds, S1 normal and S2 normal. Pulmonary: Effort: Pulmonary effort is normal. Breath sounds: Normal breath sounds. Abdominal: General: Bowel sounds are normal. Palpations: Abdomen is soft. There is no hepatomegaly or splenomegaly. Tenderness: There is no abdominal tenderness. Genitourinary: Testes: Right: Mass, tenderness or swelling not present. Left: Tenderness and swelling (firm) present. Neurological: Mental Status: He is alert and oriented to person, place, and time. Gait: Gait is intact. ASSESSMENT/PLAN: 1. Epididymitis, left - ICD9: 604.90, ICD10: N45.1 (primary diagnosis) Will cover with levaquin And notify his urology office. 2. Testicle swelling - ICD9: 608.86, ICD10: N50.89 - UA DIP, URINE (POC) - URINE CULTURE - US SCROTUM AND CONTENTS IMPRESSION: Left epididymitis with 6 mm collection within or adjacent to the epididymal tail suggesting small abscess cavity. Small complex LEFT hydrocele. Hyperechogenicity along the periphery of the LEFT epididymis could be due to remote epididymitis or might represent calcification from remote hemorrhage. No findings suggestive of orchitis. Dictated by : RUBENS ASCENCIO MD 3. Cloudy urine - ICD9: 791.9, ICD10: R82.90 Culture pending Carlie Gustafson APRN.TELEVISION DIRECTOR documented in this encounterAdena [facility]12-22-2022 History of Present illness Narrative* Conrad Dodd, PT - 06/08/2022 10:51 AM EST Episode Visit Count: 66 Therapist That Will Accept/Oversee The Plan Of Care: Annette Ramsey Start of Care Date: 07/14/20 Onset Date: 11/07/12 Plan of Care Certification Date: 06/08/22 Next Certification Due Date: 09/06/22 REHABILITATION AND SPORTS THERAPY PHYSICAL THERAPY PROGRESS REPORT PLAN OF CARE UPDATE: Assessment: Mateus Manzano demonstrates difficulty with rising from a chair, standing, walking, heavy exertion, physical activities, and recreational activities. He hascontinued to make slow but steady progress towards goals. Patient continues to present with impairments in ADL's, gait, and strength that interfere with rising from a chair;standing;walking;walking in the house;walking in the community;physical activities;recreational activities . Current prognosis is Good due to: good overall health status;positive past response to therapy;within-session changes;good support system/ coping skills;Prognosis may be limited due to chronic nature of impairments;clinical presentation . He will benefit from continued skilled therapy services to meet the updated goals for this plan of care as noted below. Goals for Episode of Care: created on 01/27/20 through 03/27/20 Updated 06/01/21 PN 08/17/21 UPDATED 09/15/21 UPDATED 11/03/2021 Updated 12/20/2021 UPDATED 03/23/22 UPDATED 06/08/22 Short Term: Consult general duty nurse as needed for bracing needs for ambulation goals. 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 ONGOING Patient will ambulate 150 feet with loftstrand crutch Right with modified independence for community participation with his . (patients goal is to be mariangel to walk into a restaurant with his and walk back out) ONGOING, limited by tone, painand weakness/imbalance Patient will demonstrate current home exercise program independently. ONGOING Patient demonstrates independent and proper use of assistive device to allow for improved walking quality and safety therefore reducing the risk of falls. ONGOING- standing at home, but not ambulating at this time. Patient Goals: Remember how to use my legs and strengthen them up. To walk again, or at least work toward it NEW GOALS: Patient will be indep with use of [place] L300 system in preparation for home unit- PROGRESSING Patient will improve gait with use of Bioness L300 and wheeled walker to > 100' without seated rest for improved home independence. PROGRESSING Patient will improve static unsupported standing to > 30 seconds indicating improved balance andfunctional strength. PROGRESSING Patient will improve 10 MWT to 0.6 m/s for home and community participation. ONGOING Planned Interventions, Frequency, and Duration: 2x/week, 10 weeks Total Number of Visits Planned: 15 Patient to be seen for PLAN FOR NEXT VISIT: Functional strengthening, Bioness with quad only. CV endurance SUBJECTIVE: . I am getting ketamine infusion in mid June. We need to start from scratch on the approval. Functional Limitations: rising from a chair;standing;walking;walking in the house;walking in the community;physical activities;recreational activities Pain: PROMIS Scales Higher is Better 03/02/2022 03/02/2022 03/27/2022 Phys Func - Score - - 43 (mild dysfunction) Phys Func - Percentile - - 24 % Social Roles - Score - 45 (within normal limits) - Social Role - Percentile - 31 % - GH Physical - Score - 47.7 (Good) 47.7 (Good) GH Physical - Percentile 41 % 41 % 41 % GH Mental - Score - Incomplete 53.3 (Very Good) GH Mental - Percentile - - 63 % Self-Eff Symptom - Score - 49 (Average) - Self-Eff Symptom - Percentile - 46 % - T-scores: mean of general population = 50. 5 points is clinically meaningfully difference Percentiles provide an indication of how the patient's score ranks in relation to the general population. Higher percentile rankings indicate better function/quality of life. 50th percentile is the average of the general population and indicates half of respondents had a worse score. Lower is Better 12/20/2021 02/03/2022 03/27/2022 Fatigue - Score 55 (within normal limits) 55 (within normal limits) 48 (within normal limits) Fatigue - Percentile 31 % 31 % 58 % T-scores: mean of general population = 50. 5 points is clinically meaningfully difference Percentiles provide an indication of how the patient's score ranks in relation to the general population. Higher percentile rankings indicate better function/quality of life. 50th percentile is the average of the general population and indicates half of respondents had a worse score. OBJECTIVE MEASURES WITH LEVEL OF FUNCTION: LE Strength R Hip Extension: 2-/5 R Hip Flexion (L2): 3-/5 R Hip ABduction: 3/5 R Knee Extension (L3): 4-/5 R Knee Flexion: 4-/5 R Ankle Dorsiflexion (L4): 4+/5 L Hip Extension: 2-/5 L Hip Flexion (L2): 2+/5 L Hip ABduction: 3/5 L Knee Extension (L3): 4-/5 L Knee Flexion: 3+/5 L Ankle Dorsiflexion (L4): 4/5 Balance Static Standing Balance Comments: Unsupported standing at FWW: 6 Functional Performance Test Results Assistive Device: Wheeled Walker (No Bioness on this date.) 10 Meter Walk Test Trial 1 (seconds): 18.85 10 Meter Walk Test Average (m/sec): 0.32 2 Minute Walk Test (feet): 75 feet (1:30) 2 Minute Walk Test Gait Speed (calculated): 0.19 m/s TREATMENT: Neuromuscular Re-Education: 1: PN and Re-Cert completed - see objective for detail 2: SL hip flexor stretch 20 sec x3 3: Prone hip flexor stretch 20 sec x3 with wedge under quad for additional stretch Skilled Intervention: Skilled judgment used to assess appropriate program for balance and coordination activity. Ensured patient safety with use of gait belt. Patient education as noted. Billing Neuromuscular Re-Education Treatment Minutes: 45 Total Treatment Time Minutes (timed/untimed): 45 Conrad Dodd PT documented in this encounterAdena [facility]11-21-2022 Miscellaneous Notes* Telephone Encounter - Kit Contreras - 05/08/2022 11:44 AM EST Mychart sent with available dates * Telephone Encounter - Al Garsia - 05/08/2022 10:08 AM ESTSummary: Infusion Appointment Request INFUSION SCHEDULING Name of caller : Mateus Manzano Relationship to patient : Self If not self Will need patient permission to release results or disclose health information with called documented in fyi. Was permission obtained from patient ? Yes Patient identified by Name and Date of . ( Mateus Manzano, 1985). Yes Last office visit 04/27/2022 with Conrad Dodd Did you discuss infusions during the visit: Yes Type of Infusion Requested by Patient : yes If Vyepti, is there a referral : yes Number to return call [phone] Okay to leave a message ? Yes ROUTING INSTRUCTIONS: If patient is returning call to schedule Infusions or asking about Vyepti, please route message to p [facility] INFUSION SCHEDULING . If Infusions were NOT discussed in the last visit, route message to provider pool to be triaged. documented in this encounterAdena [facility]11-10-2022 History of Present illness Narrative* Conrad Dodd, PT - 04/27/2022 9:22 AM EST Episode Visit Count: 65 Therapist That Will Accept/Oversee The Plan Of Care: Annette Ramsey Start of Care Date: 07/14/20 Onset Date: 11/07/12 Plan of Care Certification Date: 02/20/22 Next Certification Due Date: 05/17/22 REHABILITATION AND SPORTS THERAPY PHYSICAL THERAPY TREATMENT NOTE ASSESSMENT: Mateus Kruger Natacha tolerated the session with decreased endurance, fatigue, and expected muscle soreness. He demonstrated difficulty with static standing balance without UE support and improvements in functional strengthening during step to and toe taps to 4 step at FWW. The patient will continue to benefit from ongoing skilled physical therapy to progress toward set goals. PLAN FOR NEXT VISIT: Functional strengthening, Bioness with quad only. CV endurance SUBJECTIVE: Doing okay, no new complaints Pain: Pain Pain Level: (Did not rate) Pain Location: Back OBJECTIVE MEASURES WITH LEVEL OF FUNCTION: TREATMENT: Neuromuscular Re-Education: 1: Bioness set-up, pt-directed/supervision, Tablet 2; quad cuff 2: - Sit <> stand from mat table to fatigue with FWW, SBA. bioness in functional training mode 3: -Trial static standing balance at FWW with no UE support with emphasis on TKE - unable to complete due to fatigue on this date 4: -Step up to 4 step to fatigue 5: -Toe tap to 4 step - to fatigue Skilled Intervention: Skilled judgment used to assess appropriate program for balance and coordination activity. Patient education as noted. Billing Neuromuscular Re-Education Treatment Minutes: 40 Total Treatment Time Minutes (timed/untimed): 45 Conrad Dodd PT documented in this encounterA[facility] History of Present illness Narrative* Conrad Dodd PT - 04/13/2022 8:09 AM EDT Episode Visit Count: 64 Therapist That Will Accept/Oversee The Plan Of Care: Annette Ramsey Start of Care Date: 07/14/20 Onset Date: 11/07/12 Plan of Care Certification Date: 02/20/22 Next Certification Due Date: 05/17/22 REHABILITATION AND SPORTS THERAPY PHYSICAL THERAPY TREATMENT NOTE ASSESSMENT: Mateus Manzano tolerated the session with fatigue and expected muscle soreness. He demonstrated difficulty with increased tone with fatigue and improvements in tolerance to voluntary quadcontraction and independence with static standing and gait training with decreased use of UE on this date. The patient will continue to benefit from ongoing skilled physical therapy to progress toward set goals. PLAN FOR NEXT VISIT: Functional strengthening, Bioness with quad only. CV endurance SUBJECTIVE: I have been feeling really good. Pain: Pain Pain Level: (Not Really) Pain Location: Back OBJECTIVE MEASURES WITH LEVEL OF FUNCTION: TREATMENT: Neuromuscular Re-Education: 1: Static standing at FWW with and without UE support - no Bioness ~2 minutes 2: Bioness set-up, pt-directed/supervision, Tablet 2; quad cuff 3: - Sit <> stand from mat table to fatigue with FWW, SBA. bioness in functional training mode 4: Leg Press 80# x15 - No Bioness 5: Leg Press 145# x10 reps no Bionees 6: Leg Press 145# x10 reps - Bioness in functional training mode Skilled Intervention: Skilled judgment used to assess appropriate program for balance and coordination activity. Patient education as noted. Billing Neuromuscular Re-Education Treatment Minutes: 40 Total Treatment Time Minutes (timed/untimed): 45 Conrad Dodd PT documented in this encounterA[facility]10-21-[facility]22 History of Present illness Narrative* Socorro Quiles, SPT - 04/07/2022 9:17 AM EDT Episode Visit Count: 63 Therapist That Will Accept/Oversee The Plan Of Care: Annette Ramsey Start of Care Date: 07/14/20 Onset Date: 11/07/12 Plan of Care Certification Date: 02/20/22 Next Certification Due Date: 05/17/22 REHABILITATION AND SPORTS THERAPY PHYSICAL THERAPY TREATMENT NOTE ASSESSMENT: Mateus Manzano tolerated the session with fatigue and expected muscle soreness. He demonstrated difficulty with LE strength and endurance and improvements in ambulation distance. The patient will continue to benefit from ongoing skilled physical therapy to progress toward set goals. PLAN FOR NEXT VISIT: Functional strengthening, Bioness with quad only. CV endurance SUBJECTIVE: Botox 3 weeks ago in hips, still some tightness in quads Went Sunday to get pump adjusted, 5% increase. I think the baclofen is not lasting as long so my drsaid to come back in 2 months vs 3 months if I'm feeling like this again Pain: OBJECTIVE MEASURES WITH LEVEL OF FUNCTION: TREATMENT: Neuromuscular Re-Education: 1: Bioness set-up, pt-directed/supervision, Tablet 2; quad cuff 2: - Sit <> stand from mat table to fatigue with FWW, SBA. bioness in functional training mode 3: -Trial static standing balance at FWW with no UE support - patient reports fatigue and difficulty getting TKE - did not continue 4: - ambulation with FWW, 3 x ~ 40 ' with SBA and wc follow 5: Discussed tone management with pt 6: Discussed status of Bioness order for home use Skilled Intervention: Ensured patient safety with use of gait belt and wc follow Patient education as noted. Billing Neuromuscular Re-Education Treatment Minutes: 55 Total Treatment Time Minutes (timed/untimed): 60 ANGELICA Oliveira Supervising therapist was present and guided the care of the patient for the entire session on thisdate. All documentation was reviewed and agreed upon. Conrad Dodd PT documented in this encounterA[facility]10-[facility] History of Present illness Narrative* Soila Velazquez, SARAH.TELEVISION DIRECTOR - 04/06/2022 2:27 PM EDT This Team Access Model visit is a virtual encounter. It required patient- provider interaction for the medical decision making as documented below. Patient agrees to the visit: Yes Patient Location: [place] CC: Patient presents with: medication review HPI Mateus Manzano is a 36 year old male who is contacted today for a virtual visit. This is an established patient of Dr. Anay Roque MD. Back in October patient was sent to ER for whole body itching. Was prescribed hydroxyzine for itching and anxiety which worked well. Feels the itching might be related to when he is under a lot of stress. Has had this occur 3 times during very stressful situations and would last for a few days at a time, but hydroxyzine would take care of the symptoms. Denies any new medications, cleansers, laundry detergent, rashes, fever, or known cause of itchiness. REVIEW OF SYSTEMS General: no fevers, no chills, no night sweats, no recurrent infections, no change in appetite, no change in energy, and no significant changes in weight Respiratory: no cough, no wheezing, no shortness of breath, no hemoptysis Cardiovascular: no chest pain, no chest pressure, no palpitations, and no swelling GI: No nausea, vomiting, or diarrhea Skin: Negative for lesions, rash, and itching Neurologic: No headache, weakness, numbness, tingling, dizziness, syncope. PAST MEDICAL HISTORY Diagnosis Date Asthma 08/05/2021 Clotting disorder ([facility]) HUGH-1 DVT (deep venous thrombosis) ([facility]) 2012 ED (erectile dysfunction) Factor 5 Leiden mutation, heterozygous ([facility]) History of spinal cord injury 03/03/2015 Lower urinary tract infectious disease Methylenetetrahydrofolate reductase (MTHFR) gene mutation MRSA (methicillin resistant Staphylococcus aureus) 10/2012 spine Neurogenic bladder self straight catheterization KARAN (obstructive sleep apnea) pt never got a cpap; pt unsure if he needed one KARAN (obstructive sleep apnea) 08/05/2021 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 Recurrent UTI Sepsis ([facility]) 02/20/2021 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[facility]) PAST SURGICAL HISTORY Procedure Laterality Date IMPLTJ/RPLCMT ITHCL/EDRL DRUG NFS PRGRBL PUMP 03/02/2015 SynchroMed II, 40 ml pump with catheter tip at T9 - Informed consent sigend on 03/03/15 (paper form) IMPLTJ/RPLCMT ITHCL/EDRL DRUG NFS PRGRBL PUMP 10/13/2016 Revision of ITB catheter due to malfunction PAST SURGICAL HISTORY OF 11/09/2012 laminectomy T-4-T-12 PAST SURGICAL HISTORY OF 2002 ORIF with pins right hand PAST SURGICAL HISTORY OF 2012 filter placement for DVT PAST SURGICAL HISTORY OF percutaneous vascular procedure PAST SURGICAL HISTORY OF neck surgery REVISE MEDIAN N/CARPAL TUNNEL SURG Bilateral 2019 ALLERGIES Jswroiijrefu-Psybzqbfhx-Aotonb, Zosyn [Piperacillin-Tazobactam], Hydrocodone-Acetaminophen, and Codeine MEDICATIONS clomiPHENe (SEROPHENE) 50 mg tablet^Take 1 tablet by mouth every other day. (take on ODD days)^Disp: 30 tablet^Rfl: 5 sildenafil (REVATIO) 20 mg tablet^TAKE 1 TABLET BY MOUTH DIRECTED (may take up to 5 (FIVE) TABLETS 1 (ONE) hour prior to sexual activity)^Disp: 30 tablet^Rfl: 5 Tadalafil (CIALIS) 5 mg tablet^Take 1 pill daily^Disp: 90 tablet^Rfl: 5 XARELTO 20 mg tablet^Take 1 tablet by mouth once daily.^Disp: 30 tablet^Rfl: 11 ondansetron orally disintegrating (ZOFRAN ODT) 4 mg disintegrating tablet^Take 1 tablet by mouth every 8 hours as needed for nausea/vomiting.^Disp: 12 tablet^Rfl: 0 morphine SR (MS CONTIN, ORAMORPH SR) 15 mg 12 hr tablet^Take 1 tablet by mouth every 12 hours for 5days.^Disp: 10 tablet^Rfl: 0 cabergoline (DOSTINEX) 0.5 mg tablet^Take 1 tablet by mouth every Sunday and .^Disp: 30 tablet^Rfl: 3 acetaminophen (TYLENOL EXTRA STRENGTH) 500 mg tablet^Take 2 tablets by mouth every 6 hours as needed for pain.^Disp: 30 tablet^Rfl: 0 albuterol HFA (PROVENTIL HFA, VENTOLIN HFA) 90 mcg/actuation inhaler^Inhale 2 Puffs as instructed every 4 hours as needed for wheezing/shortness of breath.^Disp: ^Rfl: baclofen (LIORESAL) 10 mg tablet^Take 10 mg by mouth twice daily.^Disp: ^Rfl: baclofen, LIORESAL, (LIORESAL) 2,000 mcg/mL injection^[employer] ITB refill Kit #[id number], Lioresal 2000mcg/ml, 40 ml pump to be refilled as directed.^Disp: ^Rfl: docusate sodium (COLACE) 100 mg capsule^Take 100 mg by mouth twice daily.^Disp: ^Rfl: Pregabalin (LYRICA) 200 mg capsule^Take 200 mg by mouth twice daily.^Disp: ^Rfl: tiZANidine (ZANAFLEX) 2 mg tablet^Take 2 mg by mouth twice daily.^Disp: ^Rfl: lidocaine (XYLOCAINE) 5 % ointment^Apply to affected area as needed.^Disp: ^Rfl: FAMILY HISTORY Problem Relation Age of Onset Diabetes Father other (factor v leiden) Father homozigus carries mthfr other (factor v leiden) Mother homozigus carries pie 1 Cancer Paternal Grandfather Heart disease Paternal Grandfather Cancer Paternal Grandmother leukemia Heart Paternal Grandmother Anesthesia Problems No Family History Social History Tobacco Use Smoking status: Every Day Packs/day: 1.00 Years: 18.00 Pack years: 18.00 Types: Cigarettes Smokeless tobacco: Former Types: Chew Quit date: 01/19/2005 Vaping Use Vaping Use: Never used Substance Use Topics Alcohol use: Yes Comment: rarely Drug use: No EXAM: Virtual visit completed using video, limited exam completed. GENERAL: alert and appropriate, in no distress, well-hydrated, well nourished, and happy, smiling, interactive SKIN: no rash noted RESPIRATORY: breathing non-labored CHEST: equal chest rise with normal respiratory effort DATA REVIEWED: Most recent labs ASSESSMENT/PLAN: 1. Itching - ICD9: 698.9, ICD10: L29.9 - unsure on cause - no rashes or skin changes, liver enzymes normal. - possibly related to a stress/anxiety reaction - will refill hydroxyzine - discussed with patient to follow up if these symptoms worsen or become more frequent so it can befurther evaluated - go to ER for difficulty breathing, swelling, chest pain, or any other urgent concern. Prescription instructions reviewed with patient as applicable. Potential red flag symptoms discussed with the patient. Reviewed appropriate action plan to take if red flag symptoms occur. Patient agreeable to treatment plan. During this patient visit I have spent approximately 15 minutes in counseling regarding treatment options, medications, and coordinating care. Soila Velazquez APRN.CNP documented in this encounterAdena [facility]10-18-2022 History of Present illness Narrative* Amarilys Mak APRN.CNP - 04/04/2022 5:00 PM EDT Images from the original note were not included. INTRATHECAL BACLOFEN THERAPY MANAGEMENT VISIT Patient unaccompanied. PAST SURGICAL HISTORY Procedure Laterality Date IMPLTJ/RPLCMT ITHCL/EDRL DRUG NFS PRGRBL PUMP 03/02/2015 SynchroMed II, 40 ml pump with catheter tip at T9 - Informed consent sigend on 03/03/15 (paper form) IMPLTJ/RPLCMT ITHCL/EDRL DRUG NFS PRGRBL PUMP 10/13/2016 Revision of ITB catheter due to malfunction PAST SURGICAL HISTORY OF 11/09/2012 laminectomy T-4-T-12 PAST SURGICAL HISTORY OF 2002 ORIF with pins right hand PAST SURGICAL HISTORY OF 2012 filter placement for DVT PAST SURGICAL HISTORY OF percutaneous vascular procedure PAST SURGICAL HISTORY OF neck surgery REVISE MEDIAN N/CARPAL TUNNEL SURG Bilateral 2020 HISTORY SINCE LAST VISIT: Pt. last seen in spasticity clinic for pump refill on 02/03/22, plan at that time was: PLAN: 1. ITB pump refilled, rate unchanged 2. Continue oral baclofen and tizanidine 3. Continue OP therapy, regular stretching and exercise encouraged 4. F/u for botox as scheduled on 03/27/[address] Sherwood 5. F/U: ITB refill 04/28/2022 at 8:00 am- [place]. Alarm date is 04/30/22. He continues to endorse increased symptoms when he nears his pump alarm date. He was originally scheduled for his refill in mid- April, but re-scheduled the appointment for today to see if fillingthe pump earlier may help with this. He would also like to discuss possible pump rate increase. He was seen for botox injections with Dr. Sherwood on 03/27/22 and feels that therapy remains effective. He has already noticed loosening of the injected areas (bilateral iliopsoas), but reports increasedtightness in the lower legs, especially the hamstrings and calves. His Left leg is always more bothersome, but he has noticed increased tightness in the Right leg recently. He denies any recent illness, infection, no recent UTIs that seemed to cause the onset of symptoms.He previously had issues with cellulitis on RLE, but this is now resolved and he denies any areas of skin breakdown at this time. He continues to follow with pain management (Dr. Hernandez). He is now undergoing ketamine infusions for his chronic pain and reports that he has noticed some improvement following the first infusion. Per Dr. Hernandez's notes, they will consider weaning opioids in the future if pt. continues to have good relief with ketamine infusions. He recently saw ortho for Left epicondylitis and received an injection in the area, which did seem to provide some benefit. He continues to do OP PT locally in [place] once weekly and finds this helpful. He performs regular stretching and HEP at least daily. He uses [employer] devices in therapy, which allow him to stand and ambulate with assistance (states he can walk approx. 195 feet with the device and a walker). His therapists are helping him try to obtain a bioness for home use. Exercise / stretching / rehabilitation: PT and daily stretching/exercise Use of oral medications for spasticity: baclofen 10 mg BID, tizanidine 2 mg BID. Patient Entered Data Ingeniatrics No flowsheet data found. Spasticity NRS 03/27/2022 03/27/2022 02/03/2022 12/26/2021 12/26/2021 Spasticity Level 3 - 3 5 - Spasm Scale - 1=Mild spasms induced by stimulation - - 1=Mild spasms induced by stimulation Spasm Scale - Trendable Number - 1 - - 1 Spasm Scale 03/27/2022 12/26/2021 09/06/2021 09/06/2021 08/15/2021 Spasm Frequency Mild spasms induced by stimulation Mild spasms induced by stimulation Mild spasms induced by stimulation Mild spasms induced by stimulation Mild spasms induced by stimulation Spasm Severity Mild Mild Mild Mild Mild Global Impression of Change 03/27/2022 12/26/2021 09/06/2021 09/06/2021 08/15/2021 Rehab global impression of change Much improved Much improved Much improved Much improved Very muchimproved Pain related to the purpose of the visit: No 0 on a scale of 0 to 10 Safety concerns: domestic violence, living situation, and safety at home: No, lives with and 4daughters. He is able to ambulate short distances with a walker and is ambulating longer distances with a walker and bioness devices in therapy Driving issues: No- uses hand controls Risk of Falls: Yes, but no recent falls Change in bowel habits: None reported Change in urinary symptoms suggesting UTI: None reported, no recent UTIs Skin Integrity: Intact per pt. report. RLE cellulitis has resolved. Review of Systems Constitutional: Continues to actively lose weight, has lost 60 lbs to date, plans to lose 40 more. Skin: Negative for rash and ulceration. HENT: Negative for trouble swallowing. Musculoskeletal: Positive for arthralgias, back pain, myalgias and muscle weakness. Genitourinary: Positive for frequent urinary infection, dysuria and indwelling catheter. +ve SPC Neurological: Positive for sleep disturbance. 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 0 Knee flexion 1 0 Plantarflexion 1 1 Modified Dannie Scale 0 - No increase in tone 1 - Slight increase in tone (catch and release at end of ROM) 1+ - Slight increase in tone, manifested by a catch, followed by minimal resistance throughout remainder (less than half of ROM) 2 - Marked increase in tone through most of the ROM, but affected part(s) easily moved 3 - Considerable increase in tone; passive movement difficult 4 - Affected part(s) rigid in flexion or extension Spasms observed: RUE: no right upper extremity spasms LUE: no left upper extremity spasms RLE: right lower extremity spasms clonus during exam LLE: left lower extremity spasms clonus during exam Timed 25 foot walk: N/A Assistance required: wheelchair Ambulation Index Score: 8 - Restricted to wheelchair, independent for transfers Patient ID verified using 2 identifiers: Yes UNIVERSAL PROTOCOL / SAFETY CHECKLIST Procedure to be Performed: ITB pump refill and rate adjustment Sign In: A Moment of CARE was completed. Personnel directly involved with the procedure wore the appropriate PPE (Personal Protective Equipment). Patient/Surrogate Stated/Verified: PATIENT VERIFIED(optional for EMERGENT procedures): Patient name, Date of , Relevant allergies and The intended procedure Time Out Communication: Intended patient and procedure match the source documents. Consent documented and matches the intended procedure. Relevant labs, photos, and/or imaging studies have been reviewed. No correct side/site applicable for marking and visibility. Medications required for procedure verified. Fire risk assessed and interventions discussed. No implant(s) inserted. Sign Out: SIGN OUT (optional for EMERGENT procedures): No specimen collected. All instruments, equipment, possible retained foreign bodies accounted for. Post-procedure follow-up management communicated and Plan of Care Visit completed when applicable. Amarilys Mak APRN.TELEVISION DIRECTOR The risks, benefits and alternatives of the procedure were explained. Written Consent Obtained: yes - 12/09/2018 Current Drug: Lioresal Drug Concentration: 2000 mcg/ml Current Rate: 873.6 mcg/day Current Dose schedule: Simple continuous [employer] Residual: 13.7 ml Actual Residual: 14 ml Pump Refilled: Yes Program Change: Yes- rate increase of 5% New Drug: Lioresal Drug Concentration: 2000 mcg/ml New Rate: 917 mcg/day New Dose schedule: Simple continuous Bolus Given: No Estimated ZEB: 74 months (04/2028) [place] alarm date: 06/25/2022 Final telemetry read and agrees with planned programming: Yes The skin over the baclofen pump was prepped and draped under sterile conditions. The pump refill port was accessed using the needle provided in the [employer] kit. The reservoir was emptied, and refilled with 40 mL of medication as detailed below. The needle was withdrawn. The pump was reprogrammed as detailed above. Procedure completed without complications and pt. tolerated well. Medication lot #: [id number] Exp. Date: 06/2025 ASSESSMENT: (M62.838) Spasm of muscle (primary encounter diagnosis) (G82.20) Paraplegia ([facility]) (S24.103A) Spinal cord injury at T7-T12 level ([facility]) 36 yo male with SCI with severe spasticity. He usually has adequate control of symptoms with ITB therapy, botox injections, and OP therapy, buthas developed increased tightness and spasms in the legs. Left leg symptoms have historically been the most bothersome, but he has noticed more symptoms in the Right leg lately. He denies any recent illness, infection, UTI that seemed to cause the onset of symptoms. Issues with RLE cellulitis have resolved and he denies any new areas of skin breakdown. On exam, strength in BLE remains diminished, but stable compared to last visit. Mild tone is noted in the bilateral plantarflexors and Right knee flexors today. Options discussed with patient. He is interested in a pump rate increase to try and help the more prominent LE symptoms. After further discussion, it was decided to increase pump rate by 5%. Reviewed the potential for more leg weakness with the rate increase and he knows to contact the office with any problems following today's visit. He will continue with OP therapy and with regular stretching and HEP. PLAN: 1. ITB pump refilled, rate increase of 5% 2. Continue oral baclofen and tizanidine at current doses 3. Continue OP therapy, regular stretching and exercise encouraged 4. Next botox scheduled in June with Dr. Sherwood 5. Consider a referral to Dr. Sullivan for SCI management 6. F/U: ITB refill 06/16/22 at 930 am - [place]. Alarm date is 06/25/22. I spent a total of 45 minutes on the date of the service which included preparing to see the patient, [id number] patient care, completing clinical documentation, obtaining and/or reviewing separately obtained history, performing a medically appropriate examination, counseling and educating the pat ient/family/caregiver, communicating with other HCPs (not separately reported) and care coordination (not separately reported). Amarilys Mak APRN.CNP April 04, 2022 5:35 PM documented in this encounterAdena [facility]10-10-2022 History of Present illness Narrative* Ju Gustafson, DO - 03/27/2022 2:31 PM EDTAssociated Order(s): Additional Injections: L elbow joint Post-Procedure Diagnose(s): Lateral epicondylitis of left elbow Images from the original note were not included. [facility] DEPARTMENT OF ORTHOPAEDIC SURGERY OFFICE VISIT DOCUMENTATION NOTE ASSESSMENT AND PLAN DIAGNOSIS: (M77.12) Lateral epicondylitis of left elbow (primary encounter diagnosis) Today, in detail, through a thorough evaluation, we discussed possible etiologies of pain and our plans for further diagnostic and therapeutic interventions. We discussed strategies for decreasing pain and improving strength, stability and motion. Patient's questions were answered in detailed. Patient verbalizes understanding and agrees with the treatment plan as discussed. US elbow 12/16/21: MILD COMMON EXTENSOR TENDINOSIS WITHOUT TEAR OR HYPEREMIA. Last injection (Sep, 2021) was helpful for about 6 months. In addition to the comprehensive evaluation as outlined above and as a separate element to the visit today, we have made the determination to proceed with an injection to aid in the treatment of the patient's condition. We discussed risks, benefits, alternatives and expected outcomes of this injection in detail and the patient agreed to proceed. The procedure was performed as detailed below. Additional Injections: L elbow joint for lateral epicondylitis Informed Consent Consent Obtained: Written [place] Protocol A moment to CARE was completed. SIGN IN Personnel directly involved with the procedure wore the appropriate PPE. Patient/Surrogate Stated/Verified: Patient name, Date of , Relevant allergies and Intended procedure TIME OUT Intended patient and procedure match the source document(s). Consent documented and matches the intended procedure. Relevant labs, photos, and/or imaging studies have been reviewed. Correct side/site marked and visible. Medications required for procedure verified. 03/27/2022 2:35 PM The procedure site was prepped in the usual sterile fashion. Details:Musculoskeletal ultrasound was utilized to successfully localize placement of the injectionneedle at the appropriate site. Ultrasound images demonstrating local vasculature and demonstratinginjection of solution were saved. Medications: 40 mg triamcinolone acetonide 40 mg/mL Anesthetics: 1 mL ropivacaine (PF) 5 mg/mL (0.5 %) Outcome: tolerated well, no immediate complications Post-injection instructions were reviewed with the patient and the patient voiced understanding of these instructions. SIGN OUT Post-procedure follow-up management communicated and Plan of Care Visit completed when applicable Ju Gustafson DO Sports Medicine Physician Department of Orthopaedic Surgery [facility] CHIEF COMPLAINT / REASON FOR VISIT Mateus Manzano is a 36 year old male who presents today for a follow-up evaluation of following complaint: Patient presents with: Left Elbow - Established Patient, Follow Up HISTORY OF PRESENT ILLNESS (HPI) PAIN EVALUATION 03/27/2022 1429 Pain Level: 4 Pain Location: Elbow-Left Description: Aching;Sore Duration Amount of Time: 2 Duration Units: Weeks Frequency: Continuous Intervention/Comfort measure: Reposition;Relaxation Comments: CSI Mateus Manzano is a 36 year old male with the presenting complaint of Established Patient and Follow Up of the Left Elbow. Mateus reports a current pain level of 4 (Elbow-Left). He describes the pain as Aching, Sore. The pain is Continuous, and has lasted for 2 Weeks. Interventions tried include Reposition, Relaxation. CSI. He was last seen in orthopaedic clinic for his elbow on 09/19/2021 with Ju Gustafson. Most recent elbow imaging was completed on 03/02/2021 (XR ELBOW SPECIAL VIEWS AP/LAT/OTHER LEFT) . In the past (based on all medication history on file), Mateus has tried the following anti-inflammatory medications (not necessarily for this reason for visit): ketorolac tromethamine, meloxicam, methylprednisolone, naproxen, prednisone, triamcinolone acetonide. Last XR Elbow - Impression Only XR ELBOW SPECIAL VIEWS AP/LAT/OTHER LT Exam End: 03/02/2021 11:28 AM (Final result) Impression: IMPRESSION: No acute abnormality Senior [employer] Dba: [email or web address] Transcribe Date/Time: Mar 02 2021 1:08P Dictated by : RAZA FORREST MD ... Last US Elbow - Impression Only US ELBOW LEFT Exam End: 12/16/2021 1:09 PM (Final result) Impression: IMPRESSION: MILD COMMON EXTENSOR TENDINOSIS WITHOUT TEAR OR HYPEREMIA. Senior [employer] Dba: CALIXTO Transcribe Date/Time: Dec 16 2021 2:27P... PT Visits (up to last 5) Some values may be hidden. Unless noted otherwise, only the newest values recorded on each date aredisplayed. PT Visits 01/11/22 01/12/22 02/09/22 03/16/22 03/23/22 Pain location Back Back Back Pain level 3 7 Did Not Rate - High 0 Description Aching Aching;Burning Frequency Some values recorded on this date have been omitted. Orthopaedic Injections (up to last 5) Some values may be hidden. Unless noted otherwise, only the newest values recorded on each date aredisplayed. Orthopaedic Injection History 03/02/21 09/19/21 Medication 40 mg triamcinolone acetonide 40 mg/mL 40 mg triamcinolone acetonide 40 mg/mL Orthopaedic Surgeries No cases to display EXAMINATION Vitals: There were no vitals taken for this visit. Left Elbow Exam Tenderness The patient is experiencing tenderness in the lateral epicondyle. Range of Motion Extension: normal Flexion: normal Pronation: normal Supination: normal Muscle Strength Pronation: 5/5 Supination: 5/5 Tests Varus: negative Valgus: negative Tinel's sign (cubital tunnel): negative Other Erythema: absent Scars: absent Sensation: normal documented in this encounterA[facility] Instructions* Patient Instructions* Ruslan Sherwood MD - 03/27/2022 9:54 AM EDT POST-BOTOX INJECTIONS You have received botulinum toxin injections today. The skin around the site of injections should be monitored for a couple of days. If redness or swelling occur, the skin should be examined by a health career advisor to rule out infection. Please contact our office via [employer] or by phone at [phone] any time with any questions or concerns. Please note that your next injections should not be scheduled less than 90 days from today. documented in this encounterAden[facility]10-[facility]-2022 History of Present illness Narrative* Domenic Alvarez MD - 03/27/2022 9:00 AM EDT BOTULINUM TOXIN THERAPY Patient accompanied by : self Dr Domenic De León, PMR PGY-4, assisted with today's encounter. Current complaints / history since last visit: most recent botulinum toxin injections on 12/26/2021. Injections continue to be helpful for reducing stiffness in the anterior hips. They allowed for ease with standing, stretching, transfers and overall comfort. More importantly, the injections facilitate his participation with outpatient neuro rehab PT. He is able to ambulate with the Yuenimei deviceduring this sessions. He feels that Botox wore off approximately three weeks ago with a sudden, abrupt return of his symptoms, uncharacteristic of his usual. Patient also reports tight hamstrings which has not been an issue previously but is this visit. He has involuntary hip flexion spasms that dointerfere with sleep. ITB rate has not been adjusted in > one year. When he is closer towards his refill date, the medication delivery is not as effective. Illnesses / hospitalizations since the last visit: No recent hospitalizations, but had a few ER visits due to uncontrolled pruritus. He denies any additional baclofen withdrawal symptoms. He is scheduled to start Ketamine infusions with pain management. Other updates: No recent UTIs. He is not on Abx. Anticoagulation: on Xarelto Home stretching/exercise routine: consistently PT/OT: currently in program for outpatient PT locally in [place]. Does prescribed PT home exercises Use of oral medications for spasticity: baclofen 10mg twice daily; tizanidine 2mg up to twice a day BT therapy effective? Yes - stiffness, spasms/cramps, pain/discomfort, ease of care and active function (Assists with participation at PT) Duration of benefit: 9 weeks Side effects: No Spasm scale: 1=Mild spasms induced by stimulation Pain related to the purpose of the visit: Yes LOCATION: lower back PAIN SCALE: 2 on a scale of 0-10, usually a 3 PAIN CHARACTER: achy, constant Patient Entered Data PROMIS No flowsheet data found. Spasticity NRS 03/27/2022 02/03/2022 12/26/2021 12/26/2021 09/12/2021 Spasticity Level 3 3 5 - - Spasm Scale - - - 1=Mild spasms induced by stimulation 1=Mild spasms induced by stimulation Spasm Scale - Trendable Number - - - 1 1 Spasm Scale 03/27/2022 12/26/2021 09/06/2021 09/06/2021 08/15/2021 Spasm Frequency Mild spasms induced by stimulation Mild spasms induced by stimulation Mild spasms induced by stimulation Mild spasms induced by stimulation Mild spasms induced by stimulation Spasm Severity Mild Mild Mild Mild Mild Global Impression of Change 03/27/2022 12/26/2021 09/06/2021 09/06/2021 08/15/2021 Rehab global impression of change Much improved Much improved Much improved Much improved Very muchimproved Nutritional status: still reports: appetite- good, intentional weight loss says he's down 280, swallowing- denies dysphagia Driving issues: NA Safety concerns regarding living situations and safety at home: No At risk for falling: Yes . Actual falls since last visit: 0frequency/number - none, denies any recent injuries. Review of Systems Constitutional: Negative for appetite change, fever, recent unintentional weight loss and recent weight gain. Musculoskeletal: Positive for muscle weakness. Respiratory: Negative. Cardiovascular: Negative. Strength Right Left Shoulder abduction 5 5 Elbow flexion 5 5 Elbow extension 5 5 Wrist extension 5 5 Fur Matcher strength (kg) 65 72 Hip flexion 2 3+ Knee flexion 3 3 Knee extension 3 2+ Plantarflexion 1 1 Dorsiflexion 3 1 Spasticity Right Left Shoulder 0 0 Elbow flexion 0 0 Elbow extension 0 0 Wrist flexion 0 0 Wrist extension 0 0 Finger flexion 0 0 Finger extension 0 0 Hip adduction 0 0 Knee extension 0. 0 Knee flexion 1 0 Plantarflexion 0 0 Modified Dannie Scale 0 - No increase in tone 1 - Slight increase in tone (catch and release at end of ROM) 1+ - Slight increase in tone, manifested by a catch, followed by minimal resistance throughout remainder (less than half of ROM) 2 - Marked increase in tone through most of the ROM, but affected part(s) easily moved 3 - Considerable increase in tone; passive movement difficult 4 - Affected part(s) rigid in flexion or extension + Clonus in the ankle that was sustained. Spasms observed: RUE: no right upper extremity spasms LUE: no left upper extremity spasms RLE: right lower extremity spasms ankle clonus LLE: no left lower extremity spasms Timed 25 foot walk: N/A Assistance required: wheelchair Ambulation Index Score: 9 - Restricted to wheelchair, dependent for transfers UNIVERSAL PROTOCOL / SAFETY CHECKLIST Procedure to be Performed: Botulinum toxin injections Sign In: A Moment of CARE was completed. Personnel directly involved with the procedure wore the appropriate PPE (Personal Protective Equipment). Patient/Surrogate Stated/Verified: PATIENT VERIFIED(optional for EMERGENT procedures): Patient name, Date of , Relevant allergies and The intended procedure Time Out Communication: Intended patient and procedure match the source documents. Consent documented and matches the intended procedure. Sign Out: SIGN OUT (optional for EMERGENT procedures): None Ruslan Sherwood MD UNIVERSAL PROTOCOL / SAFETY CHECKLIST The risks, benefits and alternatives of the procedure were explained. Written Consent Obtained: yes - 12/13/2020 Clinician(s) performing the injections: Ruslan Sherwood MD and Domenic Alvarez MD, PMR PGY-2 Operations Examiner: Claudia Case LPN and Una Duke The patient was positioned supine . Brand of toxin injected: Botox. After skin preparation with alcohol, a total dose of 100 units were injected as follows: Muscle Limb/Side Dose Guidance Comments Iliopsoas RLE 50 units EMG/US 2 sites Iliopsoas LLE 50 units EMG/US 2 sites Total Dose: 1000 units discarded. Dilution: 100 units / 2 ml The injections were well-tolerated. Minimal bleeding occurred at the injection sites. Assessment: (R25.2) Spasticity (primary encounter diagnosis) (G82.20) Paraplegia ([facility]) (S24.103A) Spinal cord injury at T7-T12 level ([facility]) Mr Manzano is known to our spasticity practice due to SCI with severe spasticity. Spasticity is managed and controlled with ITB Therapy. We have been targeting BT injections in the iliopsoas bilaterally to assist with management of reported stiffness in the hip flexors, albeit a shorter duration. Hecontinues to experience benefit from these botulinum toxin injections and agrees to injecting the same dose. However, he has worsening spontaneous hip flexion spasms leading to tightness in the hamstrings only on the right. He may consider an increase in ITB therapy at his upcoming appointment nextmonth (Apr) to improve hs symptoms. Plan: 1 - Repeat injections in 3 months, 100-150 units. We held off on increasing the total dose and evenincreasing in the hip flexors and adding the hamstrings.Transfers independently 2 - PT/OT: currently in outpatient neuro rehab program working on gait training with Bioness 3 - ITB pump management and refill here at the [facility]. Patient will discuss rate increase 4 - Letter Dr Vijay Roque, Ms Odette Bossrd Time spent with patient: 45 mn. Domenic Alvarez MD [facility] PMR PGY-2 TEACHING PHYSICIAN NOTE OF PERSONAL INVOLVEMENT IN CARE I have reviewed the Progress Note obtained and documented by Dr Alvarez. I personally participated in the joseph components and supervised the entire procedure. I have discussed the case and management of the patient's care with them, and agree with above assessment and plan. Patient with a hx of SCI, spastic paraplegia who is sp ITB pump for spasticity management. Botox injections have focally addressed hip flexors, but notes that symptoms on the right are insidiously worsening. Total dose and muscles injected were kept the same, but he would like to discuss increasingpump rate. Refill date is scheduled for 04/28/2022. Ruslan Sherwood MD documented in this encounterA[facility]10-[facility] History of Present illness Narrative* Conrad Dodd, PT - 03/23/2022 9:21 AM EDT Episode Visit Count: 62 Therapist That Will Accept/Oversee The Plan Of Care: Annette Ramsey Start of Care Date: 07/14/20 Onset Date: 11/07/12 Plan of Care Certification Date: 02/20/22 Next Certification Due Date: 05/17/22 REHABILITATION AND SPORTS THERAPY PHYSICAL THERAPY PROGRESS REPORT PLAN OF CARE UPDATE: Assessment: Mateus Kruger [place] demonstrates minimal improvement in rising from a chair, standing, and walking due due to recent therapy hold. He has made steady progress towards goals. Patient continues to present with impairments in ADL's, gait, independence in exercise, and strength that interfere with rising from a chair;standing;walking;walking in the house;walking in the community;physical activities;recreational activities . Current prognosis is Good due to: good overall health status;positive past response to therapy;within-session changes;good support system/ coping skills;Prognosis may be limited due to chronic nature of impairments;clinical presentation . He will benefit from continued skilled therapy services to meet the updated goals for this plan of care as noted below. Goals for Episode of Care: created on 01/27/20 through 03/27/20 Updated 06/01/21 PN 08/17/21 UPDATED 09/15/21 UPDATED 11/03/2021 Updated 12/20/2021 UPDATED 03/23/22 Short Term: Consult general duty nurse as needed for bracing needs for ambulation goals. ONGOING Custodial: Patient will increase strength of bilateral LEs by 1 MMT grade to allow patient to improve gait mechanics/gait pattern. ONGOING Patient will ambulate 150 feet with losageCrowdtrand crutch Right with modified independence for community participation with his . (patients goal is to be mariangel to walk into a restaurant with his and walk back out) ONGOING, limited by tone, painand weakness/imbalance Patient will demonstrate current home exercise program independently. ONGOING Patient demonstrates independent and proper use of assistive device to allow for improved walking quality and safety therefore reducing the risk of falls. ONGOING- standing at home, but not ambulating at this time. Patient Goals: Remember how to use my legs and strengthen them up. To walk again, or at least work toward it NEW GOALS: Patient will be indep with use of Yuenimei L300 system in preparation for home unit- PROGRESSING Patient will improve gait with use of Bioness L300 and wheeled walker to > 100' without seated rest for improved home independence. PROGRESSING Patient will improve static unsupported standing to > 30 seconds indicating improved balance andfunctional strength. PROGRESSING Patient will improve 10 MWT to 0.6 m/s for home and community participation. ONGOING Planned Interventions, Frequency, and Duration: 2x/week, 8 weeks Total Number of Visits Planned: 8 Patient to be seen for PLAN FOR NEXT VISIT: Functional strengthening, Bioness with quad only. CV endurance SUBJECTIVE: . I talked to Teodora about the Bioness and my skilled nursing case manager reached out and I may have anew skilled nursing case manager so some things got lost in transition. Functional Limitations: rising from a chair;standing;walking;walking in the house;walking in the community;physical activities;recreational activities Pain: Pain Pain Location: Back PROMIS Scales Higher is Better 02/03/2022 03/02/2022 03/02/2022 Phys Func - Score 38 (moderate dysfunction) - - Phys Func - Percentile 12 % - - Social Roles - Score - - 45 (within normal limits) Social Role - Percentile - - 31 % GH Physical - Score - - 47.7 (Good) GH Physical - Percentile - 41 % 41 % GH Mental - Score - - Incomplete GH Mental - Percentile - - - Self-Eff Symptom - Score - - 49 (Average) Self-Eff Symptom - Percentile - - 46 % T-scores: mean of general population = 50. 5 points is clinically meaningfully difference Percentiles provide an indication of how the patient's score ranks in relation to the general population. Higher percentile rankings indicate better function/quality of life. 50th percentile is the average of the general population and indicates half of respondents had a worse score. Lower is Better 10/20/2021 12/20/2021 02/03/2022 Fatigue - Score 57 (mild) 55 (within normal limits) 55 (within normal limits) Fatigue - Percentile 24 % 31 % 31 % T-scores: mean of general population = 50. 5 points is clinically meaningfully difference Percentiles provide an indication of how the patient's score ranks in relation to the general population. Higher percentile rankings indicate better function/quality of life. 50th percentile is the average of the general population and indicates half of respondents had a worse score. OBJECTIVE MEASURES WITH LEVEL OF FUNCTION: LE Strength R Hip Flexion (L2): 3-/5 R Hip ABduction: 3/5 R Knee Extension (L3): 4-/5 R Knee Flexion: 4-/5 R Ankle Dorsiflexion (L4): 4+/5 L Hip Flexion (L2): 2+/5 L Hip ABduction: 3-/5 L Knee Extension (L3): 4-/5 L Knee Flexion: 3+/5 L Ankle Dorsiflexion (L4): 4-/5 Gait General Deviations/Observations: Bree decreased;Difficulty changing direction/turning;Flexed trunk posture;Non-functional gait speed;UE weight bearing on assistive device excessive Gait Observation: Patient able to complete 60 ft of ambulation with use of Bioness. Second trial, patient able to completed 20 ft ambulation without use of Bioness. Fatigue noted. Balance Static Standing Balance Comments: Unsupported standing at FWW: with Bioness with no Bioness: 4.5 seconds. Functional Performance Test Results Assistive Device: Wheeled Walker (with and without Bioness - see details Upper Cuff only.) 10 Meter Walk Test Trial 1 (seconds): 19 (26.47 without Bioness) 10 Meter Walk Test Average (m/sec): 0.32 TREATMENT: Neuromuscular Re-Education: 1: Bioness set up - table 2 with supervision. Quad only 2: PN completed - see objectives 3: Standing at FWW with lateral weight shift -nmultiple bouts -Bioness in functional traing mode. Cues to engage quad with stimulation as able and TKE with weight bearing 4: Static standing nwith no UE support to fatigue ~5 sec ea. 5: Ambulation with and without Bioness ~ 58 ft with w/c follow - to fatigue Skilled Intervention: Skilled judgment used to assess appropriate program for balance and coordination activity. Ensured patient safety with use of gait belt. Patient education as noted. Billing Neuromuscular Re-Education Treatment Minutes: 55 Total Treatment Time Minutes (timed/untimed): 65 Conrad Dodd PT documented in this encounterAden[facility]09-21-2022 Miscellaneous Notes* Telephone Encounter - Soila Velazquez APRN.CNP - 03/08/2022 12:08 PM EDT Orders placed as requested. Soila Velazquez APRN.CNP * Telephone Encounter - Hortensia Tovar LPN - 03/08/2022 11:28 AM EDT patient is here for labs. Patient had standing orders for units/a culture if indicated. Lab is needing orders, patient is here now. Hortensia Tovar LPN documented in this encounterAdena [facility]09-15-2022 History of Present illness Narrative* Eitan HernandezDO - 03/02/2022 9:44 AM EDT [facility] [place] March 02, 2022 This is a virtual visit. SUBJECTIVE: Mateus Manzano presents to for a follow-up appointment for ketamine infusions. Since the last visit, Mateus Manzano states the pain has been improving. Before the infusions would take his meds in theAM because he was hurting form laying in bed, then take 2nd dose exactly 12 hours after because he couldn't wait. The infusion have really helped as he is not longer requiring the infusions exactly in 12 hours. Infusions provided 35% pain relief. He's able to do more in the day and be more active. Current Outpatient Medications Medication Sig Dispense Refill XARELTO 20 mg tablet Take 1 tablet by mouth once daily. 30 tablet 11 ondansetron orally disintegrating (ZOFRAN ODT) 4 mg disintegrating tablet Take 1 tablet by mouth every 8 hours as needed for nausea/vomiting. 12 tablet 0 morphine SR (MS CONTIN, ORAMORPH SR) 15 mg 12 hr tablet Take 1 tablet by mouth every 12 hours for 5days. 10 tablet 0 cabergoline (DOSTINEX) 0.5 mg tablet Take 1 tablet by mouth every Sunday and . 30 tablet 3 clomiPHENe (SEROPHENE) 50 mg tablet Take 1 tablet by mouth every other day. (take on ODD days) 30 tablet 5 Tadalafil (CIALIS) 5 mg tablet Take 1 pill daily 90 tablet 5 acetaminophen (TYLENOL EXTRA STRENGTH) 500 mg tablet Take 2 tablets by mouth every 6 hours as needed for pain. 30 tablet 0 albuterol HFA (PROVENTIL HFA, VENTOLIN HFA) 90 mcg/actuation inhaler Inhale 2 Puffs as instructed every 4 hours as needed for wheezing/shortness of breath. baclofen (LIORESAL) 10 mg tablet Take 10 mg by mouth twice daily. baclofen, LIORESAL, (LIORESAL) 2,000 mcg/mL injection [facility] ITB refill Kit #[id number], Lioresal 2000mcg/ml, 40 ml pump to be refilled as directed. docusate sodium (COLACE) 100 mg capsule Take 100 mg by mouth twice daily. Pregabalin (LYRICA) 200 mg capsule Take 200 mg by mouth twice daily. tiZANidine (ZANAFLEX) 2 mg tablet Take 2 mg by mouth twice daily. lidocaine (XYLOCAINE) 5 % ointment Apply to affected area as needed. Current Facility-Administered Medications Medication Dose Route Frequency Provider Last Rate Last Admin ondansetron (PF) 4 mg injection (ZOFRAN) 4 mg INTRAVENOUS PRN Eitan Tankha, DO midazolam (PF) 2 mg injection (VERSED) 2 mg INTRAVENOUS PRN Eitan Tankha, DO 2 mg at 02/15/22 0807 REVIEW OF SYSTEMS: REVIEW OF SYSTEMS PAIN ASSESSMENT: CURRENTLY HAVING PAIN; see HPI GENERAL: No weight loss, malaise or fevers Past Medical History: PAST MEDICAL HISTORY Diagnosis Date Asthma 08/05/2021 Clotting disorder ([facility]) HUGH-1 DVT (deep venous thrombosis) ([facility]) 2012 ED (erectile dysfunction) Factor 5 Leiden mutation, heterozygous ([facility]) History of spinal cord injury 03/03/2015 Lower urinary tract infectious disease Methylenetetrahydrofolate reductase (MTHFR) gene mutation MRSA (methicillin resistant Staphylococcus aureus) 10/2012 spine Neurogenic bladder self straight catheterization KARAN (obstructive sleep apnea) pt never got a cpap; pt unsure if he needed one KARAN (obstructive sleep apnea) 08/05/2021 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 Recurrent UTI Sepsis ([facility]) 02/20/2021 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[facility]) Past Surgical History: PAST SURGICAL HISTORY Procedure Laterality Date IMPLTJ/RPLCMT ITHCL/EDRL DRUG NFS PRGRBL PUMP 03/02/2015 SynchroMed II, 40 ml pump with catheter tip at T9 - Informed consent sigend on 03/03/15 (paper form) IMPLTJ/RPLCMT ITHCL/EDRL DRUG NFS PRGRBL PUMP 10/13/2016 Revision of ITB catheter due to malfunction PAST SURGICAL HISTORY OF 11/09/2012 laminectomy T-4-T-12 PAST SURGICAL HISTORY OF 2002 ORIF with pins right hand PAST SURGICAL HISTORY OF 2012 filter placement for DVT PAST SURGICAL HISTORY OF percutaneous vascular procedure PAST SURGICAL HISTORY OF neck surgery REVISE MEDIAN N/CARPAL TUNNEL SURG Bilateral 2019 Family History: FAMILY HISTORY Problem Relation Age of Onset Diabetes Father other (factor v leiden) Father homozigus carries mthfr other (factor v leiden) Mother homozigus carries pie 1 Cancer Paternal Grandfather Heart disease Paternal Grandfather Cancer Paternal Grandmother leukemia Heart Paternal Grandmother Anesthesia Problems No Family History Social History: Social History Tobacco Use Smoking status: Every Day Packs/day: 1.00 Years: 18.00 Pack years: 18.00 Types: Cigarettes Smokeless tobacco: Former Types: Chew Quit date: 01/19/2005 Vaping Use Vaping Use: Never used Substance Use Topics Alcohol use: Yes Comment: rarely Drug use: No OBJECTIVE: There were no vitals taken for this visit. ASSESSMENT: SCI Spasticity Chronic Pain Syndrome PLAN: 1) Repeat infusion in 3 months 2) Consider slow wean of opioids if pain relief continues; goal to be completely off or just have prn meds 3) Continue to optimize diet, activity, and sleep. I spent a total of 20 minutes on the date of the service which included preparing to see the patient, [id number] patient care, completing clinical documentation, obtaining and/or reviewing separately obtained history, counseling and educating the patient/family/caregiver, and ordering medications, tests, or procedures. Eitan Hernandez, DO Important Patient Information: 1. To schedule Pain Recovery appointments or post-injection office visits, please call: [phone] 2. The nursing staff and medical assistants are a part of your pain recovery team and will be handling your phone calls and inquiries. 3. Your study results and treatment plan will be discussed during a follow-up appointment. If you do not have a follow-up appointment and wish to discuss any issues directly with me, please call: [phone] to set-up an appointment. 4. MyChart is best used for refill requests or yes or no questions. Anything more complicated will likely require a follow-up appointment that you can schedule by [phone]. 5. It is the practice of the Department to not fill disability or any other insurance-related forms/documentation. All of the office notes, study results, and other documentation as part of your evaluation will be available to you and to your Primary Care Physician (PCP). Use of this material to complete such forms will be at the discretion of your PCP/referring physician. 6. If you are scheduled for a ketamine infusion, you will be contacted regarding specific scheduling instructions in the future by our department. There is no need to contact our department regardingthe scheduling process or your estimated wait; you will be contacted once there is an opening. documented in this encounterA[facility] History of Present illness Narrative* Karla Santa RN - 02/17/2022 8:42 AM EDT 0739: Patient here for day 5 of Ketamine infusion. Patient educated on medications to be administered. Confirmed NPO > 6 hours and has transportation home. Patient verbalized understanding and agreed to proceed with infusions. Pt requetsing PRN toradol for headache. Message sent to Dr. Hernandez. 0830: Dr. Hernandez stated that due to pt being on xarelto, will hold off on toradol. Relayed message to pt. He stated he will just take tylenol after infusion. 0837: BP at the end of ketamine elevated. Dr. Hernandez notified. Saline flush infusing. 0940: Pts infusion complete. Tolerated infusion well. Pt discharged to drivers' cash clerk in the lobby. documented in this encounterAden[facility]09-01-2022 History of Present illness Narrative* Neetu Mayberry RN - 02/16/2022 7:09 AM EDT Patient here for day 4 of Ketamine infusion. Patient educated on medications to be administered. Confirmed NPO > 6 hours and has transportation home. Patient verbalized understanding and agreed toproceed with infusions. Monitor alarm limits are set and alarms are audible -Pain ranges from above umbilical area to above the knee area. But mostly in lower back Stabbing, Sharp, ache -Patient states he has chronic pain from ranging from 3/10-5/10 but is never pain free. He noticed that once the ketamine is done he is pain free for several hours. -Patient stated yesterday after he left he had a headache that was eventaully relieved with extra-strength tylenol. Message sent to the Dr. Zelaya about PRN toradol to be given at the end of the infusions. Patient agreed with this. Awaiting response from MD. -New order for Toradol. Patient aware. -0941 toradol given 1020 Pts infusions complete. Pt tolerated infusion well. Pt rated pain 0/10. Pt stated no nausea and no dizziness. Pt discharged from treatment room. documented in this encounterAden[facility]08-31-2022 History of Present illness Narrative* Odette Evans RN - 02/15/2022 7:54 AM EDT Patient in for day 3 of IV ketamine infusions. Patient rated chronic back pain 5/10. Patient educated on medications to be administered. Patient verbalized understanding and agreed to proceed with infusions. Patient confirmed NPO >6 hours, and he has a ride home waiting in the lob. 0955:Pts infusions complete. Pt tolerated infusion well. [facility] documented in this encounterA[facility]08-30-2022 History of Present illness Narrative* Odette Evans RN - 02/14/2022 7:36 AM EDT Patient in for day 2 of IV ketamine infusions. Patient rated chronic back pain 4/10. Patient educated on medications to be administered. Patient verbalized understanding and agreed to proceed with infusions. Patient confirmed NPO >6 hours, and he has a ride home waiting in the lobby. Pts infusions complete. Pt tolerated infusion well. Pt discharged from treatment room [facility] documented in this encounterAdena [facility]08-26-2022 NoteHNO ID: [id number] Author: Rossana Chambers DPM Service: ? Author Type: Physician Type: Progress Notes Filed: 02/10/2022 3:08 PM Note Text: CHIEF COMPLAINT: right leg wound nonDM HISTORY OF PRESENT ILLNESS: Patient presents as follow up from hospital stay 01/07/22 for right leg swelling and wound and UTI. He was admitted in 02/19/22 for similar issues. He was discharged on keflex which he has finished. He was also treated for fungal foot infection with clotrimazole cream. He relates the wound has healed. He does need new compression socks. Relates no issues since DC. Denies new wounds. He is wheelchair bound, he has limitation of feeling and muscle control. Patient denies N/F/V/C/CP/SOB. Hx blood clots, clotting disorders PHYSICAL EXAMINATION: Vascular Exam: BL Foot DP / PT pulses +1/4 CFT less than 3 seconds to digits, skin temp warm to warm from proximal to distal BL Foot BL lymphedema Dermatologic Exam: No open wounds Nails [address] [place] [address] RIGHT are thickened, elongated and discolored with subungual debris. The nails are greater than .4mm in thickness. The discoloration is yellowish in color. Innerspaces 1-4 BL are clean dry and intact. Absent or decreased hair growth. Skin atrophy bilateral. Pigmentary changes bilateral. Edema present. Skin texture and turgor are decreased. Chronic dependent rubor. positive Stemmer?s sign Neurologic Exam: Comments/Other Findings: Vibratory sensations absent BL at the MPJ with tuning fork, Protective sensations absent at the digits BL tested with 5.07 monofilament. sharp and light, and temperature sensations intact bl. Orthopedic Exam: Additional Orthopedic Findings: BL Muscle Strength +3/5 as tested for all Invertors, Evertors, Flexors, and Extensors of the Lower Extremity BL Ankle Joint, STJ, 1st MPJ, and midfoot demonstrated decreased ROM and was pain free and without crepitus DIAGNOSIS: Tinea pedis of right foot Lymphedema Ulcer of right lower extremity, limited to breakdown of skin PLAN AND TREATMENT: ASSESMENT AND PLAN BL Foot and Ankle and Lower extremity Exam and Evaluation carried out with a treatment plan reviewed with the patient and findings discussed with patient including alternatives, benefits, complications and risks. TESTS / IMAGING / X-RAY EXAM 01/09/22 [facility] wound culture right leg: no organisms seen Stressed the importance of watermelon inspector compression therapy for leg swelling management. Stressed this will likely be a life long thing to prevent future wounds. Has compression socks but they need replaced To monitor for new wound development Discussed lymhedema clinic, patient has been recommended this in past but hasn't gone. He is willing to go now Referral sent to lymphedema clinic, they are also to manage new compression wrap/socks for patient Discussed elevation, patient noted to be wheelchair bound and is always has feet in dependent position continue lotion, uses aquafore Follow up in office for nail care Tinea pedis of right foot 110.4 B35.3 AND Lymphedema 457.1 I89.0 AND Ulcer of right lower extremity, limited to breakdown of skin 707.10 L97.911[id number] History of Present illness Narrative* Rossana Hibiak, DPM - 02/10/2022 3:08 PM EDT Images from the original note were not included. CHIEF COMPLAINT: right leg wound nonDM HISTORY OF PRESENT ILLNESS: Patient presents as follow up from hospital stay 01/07/22 for right leg swelling and wound and UTI. He was admitted in 02/19/22 for similar issues. He was discharged on keflex which he has finished. He was also treated for fungal foot infection with clotrimazole cream. He relates the wound has healed.He does need new compression socks. Relates no issues since DC. Denies new wounds. He is wheelchair bound, he has limitation of feeling and muscle control. Patient denies N/F/V/C/CP/SOB. Hx blood clots, clotting disorders PHYSICAL EXAMINATION: Vascular Exam: BL Foot DP / PT pulses +1/4 CFT less than 3 seconds to digits, skin temp warm to warm from proximal to distal BL Foot BL lymphedema Dermatologic Exam: No open wounds Nails 41184 LEFT [place] 18063 RIGHT are thickened, elongated and discolored with subungual debris. Thenails are greater than .4mm in thickness. The discoloration is yellowish in color. Innerspaces 1-4 BL are clean dry and intact. Absent or decreased hair growth. Skin atrophy bilateral. Pigmentary changes bilateral. Edema present. Skin texture and turgor are decreased. Chronic dependent rubor. positive Stemmer s sign Neurologic Exam: Comments/Other Findings: Vibratory sensations absent BL at the MPJ with tuning fork, Protective sensations absent at the digits BL tested with 5.07 monofilament. sharp and light, and temperature sensations intact bl. Orthopedic Exam: Additional Orthopedic Findings: BL Muscle Strength +3/5 as tested for all Invertors, Evertors, Flexors, and Extensors of the Lower Extremity BL Ankle Joint, STJ, 1st MPJ, and midfoot demonstrated decreased ROM and was pain free and without crepitus DIAGNOSIS: Tinea pedis of right foot Lymphedema Ulcer of right lower extremity, limited to breakdown of skin PLAN AND TREATMENT: ASSESMENT & PLAN Foot and Ankle and Lower extremity Exam and Evaluation carried out with a treatment plan reviewed with the patient and findings discussed with patient including alternatives, benefits, complications and risks. TESTS / IMAGING / X-RAY EXAM 01/09/22 [facility] wound culture right leg: no organisms seen Stressed the importance of watermelon inspector compression therapy for leg swelling management. Stressed thiswill likely be a life long thing to prevent future wounds. Has compression socks but they need replaced To monitor for new wound development Discussed lymhedema clinic, patient has been recommended this in past but hasn't gone. He is willing to go now Referral sent to lymphedema clinic, they are also to manage new compression wrap/socks for patient Discussed elevation, patient noted to be wheelchair bound and is always has feet in dependent position continue lotion, uses aquafore Follow up in office for nail care Tinea pedis of right foot 110.4 B35.3 & Lymphedema 457.1 I89.0 & Ulcer of right lower extremity, limited to breakdown of skin 707.10 L97.911 documented in this encounterAden[facility]08-26-2022 Instructions* Patient Instructions* Mary Galvan RN - 02/10/2022 9:57 AM EDT WOUND CARE INSTRUCTIONS- Mateus Manzano BILATERAL LEGS WEAR YOUR COMPRESSION STOCKINGS, APPLY IN AM MAY REMOVE AT BEDTIME, MOISTURIZE LEGS DAILY Continue elevating legs as much as possible - - Avoid sitting with legs in a dependent position or standing for long periods of time. - Attempt to lay flat and elevate your legs above the level of your heart 2-3 times daily, for 30 minutes at a time. - Be sure to continue calf pumps and exercises to mimic writing the alphabet with your foot, as instructed - Control your sodium intake as instructed by provider . To give your wound the best chance to heal: - Eat three balanced meals daily focusing on the protein - Control your blood sugar. Keep blood sugar less than 200 - Complete your wound care instructions as ordered - Vitamin C 500 mg twice daily - Multiple Vitamin Daily - Drink a protein shake daily - Premiere Clear or Glucerna for Diabetic patients, Nepro for renal patients and premiere for non-renal and non-diabetic patients Graft:(if applicable) It can be normal to have some odor coming from your wound if you've had a graft application. This can be normal due to using an occlusive dressing. If you have an odor plus signs and symptoms of infection(as listed below), Please call the wound center for further instruction. Report any of the following signs and symptoms of infection to the Wound Center at [phone] or go to the Emergency Department: Fever or chills Increased drainage Green or yellow drainage Foul odor Increased pain Hardness around the wound Redness, warmth or swelling of the surrounding tissue Color change to the wound PLAN/ORDERS: F/U needed Referral for Lymphedema clinic Please be aware that the Covid19 exposure questions will be asked as you enter the hospital and as you arrive to each area. Thank you for your patience and understanding as we attempt to protect our patients during this difficult time. Dr. 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, multiple clotting disorders Wound Etiology according to patient: hospitalized with cellulitis Patient arrived via: wheelchair Home Care Company/Nursing Facility: Consent captured for debridement per (Provider) and good until Anticoagulant Therapy:Xarelto ACTIVE CARE PER PROVIDER: WOUND ASSESSMENT: Refer to Provider's Wound Assessment Note VASCULAR ASSESSMENT BY PROVIDER: N/A CHF History: N/A EDEMA: Right foot: 1+ pitting Right calf: 2+ pitting Left foot :trace Left Calf:trace Other: MEASUREMENTS: in cm Right Calf: 39.5 Right Ankle: 25.6 Left Calf: 38.8 Left Ankle: 26.2 Length:45.2 WOUND PHOTOGRAPHY: NO DEBRIDEMENT PROCEDURE BY PROVIDER: Anesthetic Used: N/A applied per examination scorer # Other procedure: Specimen collected: WOUND TREATMENT PER MD ORDER: 02/10/22 no open wounds noted Vaseline applied to bilateral lower legs COMPRESSION: Patients own compression stockings SPECIAL NEEDS: Coordination of care n/a Emotional support N/A OR set-up N/A Clinical Education Manager N/A Incontinence needs N/A DISCHARGED in stable condition to: Home in wheelchair Global surgical period dates if applicable: N/A PLAN/ORDERS: F/U needed Referral for Lymphedema clinic EDUCATION: The patient/family was instructed how to cleanse the wound(s). Visual demonstration on how to applythe dressing with teach back method. Signs & symptoms of infection were reviewed: Increased redness, swelling, pain, green/yellow drainage, fever and/or chills would all need to be evaluated by a Physician. Patient received typed home-going wound care instructions and has expressed intent to comply. OTHER EDUCATION: importance of f/u with lymphedema clinic Education performed regarding lymphedema/edema: Elevation of extremity above the heart for 30 minutes three times daily and as needed Exercise such as writing the ABC's with your toes in the air, walking and/or calf pumps Wearing compression as ordered by provider Diet controlling of sodium as instructed by provider Use of medication to help control edema. ____ UNIVERSAL PROTOCOL / SAFETY CHECKLIST N/A Current HBOT Status: Active or Complete - see screening below WOUND CENTER HYPERBARIC OXYGEN THERAPY SCREENING 1. Is the patient diabetic? (If No, skip to question 5) No 5. Has the patient been diagnosed with osteomyelitis? No 6. Has the patient had a previous skin graft or flap at the wound? No 7. Has the patient had or been offered vascular intervention/evaluation? No 8. Does the patient have a wound at an amputation site? No 9. Has the patient had radiation therapy at the site of the problem? No If Yes to ANY of questions 5-9, consult the Hyperbaric Center Mary Galvan RN/SHALONDA documented in this encounterAdena [facility]08-25-2022 History of Present illness Narrative* Conrad Dodd, PT - 02/09/2022 7:47 AM EDT Episode Visit Count: 60 Therapist That Will Oversee The Plan Of Care: Annette Ramsey Start of Care Date: 07/14/20 Onset Date: 11/07/12 Plan of Care Certification Date: 02/20/22 Next Certification Due Date: 05/17/22 [facility]AB[facility]ORTS THERAPY PHYSICAL THERAPY PROGRESS REPORT PLAN OF CARE UPDATE: Assessment: Mateus Manzano demonstrates difficulty with rising from a chair, standing, walking, heavy exertion, physical activities, and recreational activities. He has made little progress towards his goals on this date due to recent LE infection resulting in bed rest and limited activity. Patientcontinues to present with impairments in ADL's, balance, gait, independence in exercise, overall function, and strength that interfere with rising from a chair;standing;walking;walking in the house;walking in the community;physical activities;recreational activities . Current prognosis is Good due to: good overall health status;positive past response to therapy;within-session changes;good supportsystem/ coping skills;Prognosis may be limited due to chronic nature of impairments . He will benefit from continued skilled therapy services to meet the updated goals for this plan of care as noted below. Goals for Episode of Care: created on 01/27/20 through 03/27/20 Updated 06/01/21 PN 08/17/21 UPDATED 09/15/21 UPDATED 11/03/2021 Updated 12/20/2021 Short Term: Consult general duty nurse as needed for bracing needs for ambulation goals. ONGOING Custodial: Patient will increase strength of bilateral LEs by 1 MMT grade to allow patient to improve gait mechanics/gait pattern. ONGOING Patient will ambulate 150 feet with loftstrand crutch Right with modified independence for community participation with his . (patients goal is to be mariangel to walk into a restaurant with his and walk back out) ONGOING, limited by tone, painand weakness/imbalance Patient will demonstrate current home exercise program independently. ONGOING Patient demonstrates independent and proper use of assistive device to allow for improved walking quality and safety therefore reducing the risk of falls. ONGOING- standing at home, but not ambulating at this time. Patient Goals: Remember how to use my legs and strengthen them up. To walk again, or at least work toward it NEW GOALS: Patient will be indep with use of [place] L300 system in preparation for home unit- PROGRESSING Patient will improve gait with use of Bioness L300 and wheeled walker to > 100' without seated rest for improved home independence. PROGRESSING Patient will improve static unsupported standing to > 30 seconds indicating improved balance andfunctional strength. PROGRESSING Patient will improve 10 MWT to 0.6 m/s for home and community participation. ONGOING Planned Interventions, Frequency, and Duration: 2x/week, 8 weeks Total Number of Visits Planned: 12 Patient to be seen for PLAN FOR NEXT VISIT: LE stretching PRN, functional strengthening, Bioness with quad only SUBJECTIVE: . I got an email from the rep but we keep missing eachother. I can let you know after Italk to her. I was bedridden for a few weeks but I still have been trying to do what I can. I stillhave swelling in RLE however improving. Functional Limitations: rising from a chair;standing;walking;walking in the house;walking in the community;physical activities;recreational activities Pain: Pain Pain Level: (Did Not Rate - High) Pain Location: Back PROMIS Scales Higher is Better 11/30/2021 12/20/2021 02/03/2022 Phys Func - Score - 36 (moderate dysfunction) 38 (moderate dysfunction) Phys Func - Percentile - 8 % 12 % Social Roles - Score - 39 (moderate dysfunction) - Social Role - Percentile - 14 % - GH Physical - Score 42.3 (Good) - - GH Physical - Percentile 22 % - - GH Mental - Score 50.8 (Very Good) - - GH Mental - Percentile 53 % - - Self-Eff Symptom - Score - 42 (Average) - Self-Eff Symptom - Percentile - 21 % - T-scores: mean of general population = 50. 5 points is clinically meaningfully difference Percentiles provide an indication of how the patient's score ranks in relation to the general population. Higher percentile rankings indicate better function/quality of life. 50th percentile is the average of the general population and indicates half of respondents had a worse score. Lower is Better 10/20/2021 12/20/2021 02/03/2022 Fatigue - Score 57 (mild) 55 (within normal limits) 55 (within normal limits) Fatigue - Percentile 24 % 31 % 31 % T-scores: mean of general population = 50. 5 points is clinically meaningfully difference Percentiles provide an indication of how the patient's score ranks in relation to the general population. Higher percentile rankings indicate better function/quality of life. 50th percentile is the average of the general population and indicates half of respondents had a worse score. OBJECTIVE MEASURES WITH LEVEL OF FUNCTION: LE Strength R Hip Extension: 2-/5 R Hip Flexion (L2): 3/5 R Hip ABduction: 3/5 R Knee Extension (L3): 3/5 R Knee Flexion: 3+/5 R Ankle Dorsiflexion (L4): 4+/5 L Hip Extension: 2-/5 L Hip Flexion (L2): 2+/5 L Hip ABduction: 2+/5 L Knee Extension (L3): 3+/5 L Knee Flexion: 3+/5 L Ankle Dorsiflexion (L4): 4-/5 Balance Static Standing Balance Comments: Unsupported standing at FWW: with no Bioness: 3 seconds. RLE (+) selling compared to left. Bilat compression stocking on. TREATMENT: Neuromuscular Re-Education: 1: PN completed - see objective for detail. 2: Lengthy discussion about current functional status due to recent infection, PT expecttations, getting Bioness units for home. 3: Discussed getting back into HEP with static balance at walker and STS to FWW Skilled Intervention: Skilled judgment used to assess appropriate program for balance and coordination activity. Patient education as noted. Billing Neuromuscular Re-Education Treatment Minutes: 25 Total Treatment Time Minutes (timed/untimed): 45 Conrad Dodd PT documented in this encounterAdena [facility]08-22-2022 Miscellaneous Notes* Telephone Encounter - Karina Jarrett LPN - 02/06/2022 7:23 AM EDT Pt. Is to be following with PCP per last AVS Rx sent to her office. Karina Jarrett LPN documented in this encounterAdena [facility]ayette [facility]08-10-2022 History of Present illness Narrative* Anay Roque MD - 01/25/2022 12:04 PM EDT Reason for Visit Patient presents with: Transition Of Care: 01/07- for sepsis Mateus Manzano is a 36 year old male who presents here today for Above Complaints.. Health Maintenance HEPATITIS B(1 of 3 - 3-dose series) COVID-19 VACCINE(1) PNEUMOCOCCAL(1 - PCV) SPIROMETRY HEPATITIS C SCREENING LIPID SCREEN HPI Been admitted recently for cellulitis of the leg, likely from infection entering from the toes. Below is the hospital note: You were admitted to the hospital on 01/07/22 due to fevers, redness and swelling of your right legand a possible urinary tract infection. You were started on IV antibiotics and the Infectious Disease specialist was consulted. Your antibiotics were adjusted to IV Cefazolin. The redness and swelling of your leg rapidly improved. A culture of the open blister area on your leg and blood cultures were all negative. A Urine Culture grew Ecoli. Infectious Disease did not think this was a significantinfection, but it was sensitive to the antibiotic you were on for your leg infection. Podiatry was consulted and dressed your wounds. You were treated with an antifungal cream for the fungal rash on your feet. By 01/12, you were ready for discharge. You were discharged to home on 01/12/22. Cephalexin (antibiotic) 1000 mg three times a day for 6+ more days was ordered. Morphine Sulfate ER 15 mg every 12 hours (home medication) for 10 doses was ordered until you can get a refill from your chronic pain physician. Keep your legs elevated as much aspossible. You should follow-up with your PCP in 1-2 weeks. Follow-up with Chronic Pain Management as previously scheduled. Follow-up with the [facility] in 3-4 weeks. After her pain management regimen was changed a year ago, his pain is not controlled at all, he hasso much pain , he is not able to sleep at night, for a year. Getting on ketamine infusions. He sleeps a couple hours a night. He is still able get around with doing what he needs to do. His pump is adjusted well, he also is getting botox injections in the hip. He has lost around 60 pounds after being on clomiphene and dostinex. Which was started as his testosterone was low because of being on constant opioids. No problem-specific Assessment & Plan notes found for this encounter. PAST MEDICAL HISTORY Diagnosis Date Asthma 08/05/2021 Clotting disorder ([facility]) HUGH-1 DVT (deep venous thrombosis) ([facility]) 2012 ED (erectile dysfunction) Factor 5 Leiden mutation, heterozygous ([facility]) History of spinal cord injury 03/03/2015 Lower urinary tract infectious disease Methylenetetrahydrofolate reductase (MTHFR) gene mutation MRSA (methicillin resistant Staphylococcus aureus) 10/2012 spine Neurogenic bladder self straight catheterization KARAN (obstructive sleep apnea) pt never got a cpap; pt unsure if he needed one KARAN (obstructive sleep apnea) 08/05/2021 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 Recurrent UTI Sepsis ([facility]) 02/20/2021 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[facility]) PAST SURGICAL HISTORY Procedure Laterality Date IMPLTJ/RPLCMT ITHCL/EDRL DRUG NFS PRGRBL PUMP 03/02/2015 SynchroMed II, 40 ml pump with catheter tip at T9 - Informed consent sigend on 03/03/15 (paper form) IMPLTJ/RPLCMT ITHCL/EDRL DRUG NFS PRGRBL PUMP 10/13/2016 Revision of ITB catheter due to malfunction PAST SURGICAL HISTORY OF 11/09/2012 laminectomy T-4-T-12 PAST SURGICAL HISTORY OF 2002 ORIF with pins right hand PAST SURGICAL HISTORY OF 2012 filter placement for DVT PAST SURGICAL HISTORY OF percutaneous vascular procedure PAST SURGICAL HISTORY OF neck surgery REVISE MEDIAN N/CARPAL TUNNEL SURG Bilateral 2020 FAMILY HISTORY Problem Relation Age of Onset Diabetes Father other (factor v leiden) Father homozigus carries mthfr other (factor v leiden) Mother homozigus carries pie 1 Cancer Paternal Grandfather Heart disease Paternal Grandfather Cancer Paternal Grandmother leukemia Heart Paternal Grandmother Anesthesia Problems No Family History Social History Tobacco Use Smoking status: Every Day Packs/day: 1.00 Years: 18.00 Pack years: 18.00 Types: Cigarettes Smokeless tobacco: Former Types: Chew Quit date: 01/19/2005 Vaping Use Vaping Use: Never used Substance Use Topics Alcohol use: Yes Comment: rarely Drug use: No Past medical history, appointments, medications, allergies reviewed. Pertinent Lab/Diagnostic Studies are reviewed and discussed today Current Outpatient Medications: ondansetron orally disintegrating (ZOFRAN ODT) 4 mg disintegrating tablet morphine SR (MS CONTIN, ORAMORPH SR) 15 mg 12 hr tablet clotrimazole (LOTRIMIN, CLOTRIM) 1 % cream cabergoline (DOSTINEX) 0.5 mg tablet clomiPHENe (SEROPHENE) 50 mg tablet Tadalafil (CIALIS) 5 mg tablet acetaminophen (TYLENOL EXTRA STRENGTH) 500 mg tablet albuterol HFA (PROVENTIL HFA, VENTOLIN HFA) 90 mcg/actuation inhaler baclofen (LIORESAL) 10 mg tablet baclofen, LIORESAL, (LIORESAL) 2,000 mcg/mL injection docusate sodium (COLACE) 100 mg capsule Pregabalin (LYRICA) 200 mg capsule tiZANidine (ZANAFLEX) 2 mg tablet rivaroxaban (XARELTO) 20 mg tablet lidocaine (XYLOCAINE) 5 % ointment Review of Systems CONSTITUTIONAL: No fevers, chills night sweats, unintended weight loss CARDIOVASCULAR: No chest pain, dyspnea, palpitations, orthopnea, PND, ankle edema. PULM: No dyspnea, unexplained cough. GI: No dysphagia/odynophagia, problematic reflux, constipation, diarrhea, changes in stool habits, hematochezia, melena. : No new urinary complaints, including dysuria, gross hematuria or pyuria. NEURO: No new balance problems, peripheral weakness/paresthesias or numbness of concern. Physical Exam BP 114/60 (BP Site: Right Arm, BP Position: Sitting, BP Cuff Size: Large Adult) Pulse 77 Temp 37.1 C (98.7 F) Resp 12 Ht 193 cm (6' 4) Wt 129.3 kg (285 lb) SpO2 96% BMI 34.69 kg/m General appearance: Well appearing, alert, in no acute distress, well nourished. Skin: Skin color, texture, turgor normal, no suspicious rashes or lesions Head: Normocephalic, no masses, lesions, tenderness or abnormalities Eyes: Anicteric sclera. Pupils are equally round and reactive to light. Extraocular movements are intact. Lungs: Lungs clear to auscultation. No wheezing, rhonchi, rales Heart: RRR without murmur, gallop, or rubs. Extremities: big boots on, in a wheel chair, he deferred wound exam ASSESSMENT/PLAN: 1. Wound of right lower extremity, subsequent encounter - ICD9: V58.89, 894.0, ICD10: S81.801D (primary diagnosis) [facility] 2. Elevated blood sugar - ICD9: 790.29, ICD10: R73.9 - HGB A1C 3. Lipid screening - ICD9: V77.91, ICD10: Z13.220 - LIPID PANEL BASIC 4. Hospital discharge follow-up - ICD9: V67.59, ICD10: Z09 No new medications except he completed the abx, He did not keep apt with wound centre so I made another one. Patient did not want to take off his bandage to show the wound, he was not happy to show his wound due to the difficulty he has and we will have with bandaging his wound He is big boots and has a bandage upto the knee, and he notes that he has a good scab where he had the blister and he is doing well He did not think he needed wound care 5. 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 Factor 5 Leiden mutation, heterozygous (HCC) - ICD9: 289.81, ICD10: D68.51 Cont the xeralto. Anay Roque MD [facility] History of Present illness Narrative* Soila Velazquez APRN.CNP - 01/13/2022 1:29 PM EDT Refill has been sent. Thank you Soila Velazquez APRN.CNP * Karina Lantigua RN - 01/13/2022 11:48 AM EDT TCM Home Visit Referral Source of Stratification: [facility] Admission Status: Discharged Readmission Risk Score: 24 JUDITH Score: 8 Program referral criteria met: Does not meet referral criteria Patient does not qualify for High Risk TCM Home Visit program due to: Does not meet referral criteria Patient does not quality for High Risk TCM Home Visit Program due to: Does not meet referral criteria TRANSITIONAL CARE MANAGEMENT (TCM) COMMUNITY MONITORING PROGRAM Provider Action/FYI: Patient is TCM eligible through PCP 01/26/2022 Pain Management 01/16/2022 PCP Patient has been identified by name and date of : Yes Pending Prescriptions Disp Refills ONDANSETRON 4 MG DISINTEGRATING TABLET 12 tablet 0 Sig: Take 1 tablet by mouth every 8 hours as needed for nausea/vomiting. DOUGIE: No RX INSTRUCTIONS: Patient aware RX will be sent to pharmacy. No need to notify patient. Continues to have redness/swelling to right leg Patient following with pain management: FU 01/16/2022 Cephalexin (antibiotic) 1000 mg three times a day for 6+ more days was ordered. Morphine Sulfate ER15 mg every 12 hours (home medication) for 10 doses was ordered until you can get a refill from your chronic pain physician. Keep your legs elevated as much as possible. Follow-up with Chronic Pain Management as previously scheduled. Follow-up with the [facility] in 3-4 weeks. SUMMARY: Pt discharged from [facility] on 01/11/2022 Admitted for: sepsis Contact made with patient: Yes Hi my name is Karina Lantigua RN and I am calling [facility] the [facility] on behalf of your PCP, Anay Roque MD I understand you were recently in the hospital so I am calling to check in with you to ensure you are feeling well now that you're home. May I ask you a few questions related to your hospital stay and well-being? Yes Contact with patient post discharge, spoke to patient. Patient identified by name and . Do you feel your health is BETTER, WORSE, or the SAME since leaving the hospital? Better ACTION TAKEN: Patient indicated symptoms are better or same, no action required. Continue outreach. MEDICATIONS: Many patients have questions or concerns about their medications once they are home. Do you have any questions about taking your medications or which medication you should be on? No Do you need any medication refills at this time, including any of the medications you might take only when needed? Yes ACTION TAKEN: Patient needs refill(s) - Routed to PCP, indicated the medications and preferred pharmacy in the FYI box. For RNs or Pharmacy completing outreach ONLY, was a medication review completed? Yes SOCIAL: We would like to make sure you have what you need so that your basics needs are met - including your personal safety, food, housing and medications. Would you like to speak with a social work team sports sales associate to help give you support for any of these needs? No It can be normal to feel anxious or down during a time like this. Would you like to talk to a mental health professional about how you have been feeling? No ACTION TAKEN: No action taken DISCHARGE INTRUCTIONS: Your discharge instructions / After Visit Summary (AVS) are important in guiding you through the recovery process. Do you have any questions related to your discharge instructions? No Do you have all the necessary equipment and supplies at home? Yes ACTION TAKEN: No action required I would like to help you schedule a hospital follow-up virtual or telephone visit with your PCP. This is a great way for you to connect with your provider to ensure you have safely transitioned home.If you are agreeable, I will send your request to a imaging scheduler who will contact and assist you with that appointment. This will give you an opportunity to ask any questions or address any concerns youmay have with your PCP. Inform the patient that if they have any questions or concerns prior to that appointment, to call their PCP's office right away. ACTION TAKEN: No action required, patient already has an appointment scheduled. Your doctor would like us to remind you of the recommendations regarding the coronavirus (Covid19) outbreak: Avoid public places as much as possible. Avoid close contact (within 6 feet) with others you don t live with, especially if they are sick. Stay home if you are sick. Wash your hands regularly for at least 20 seconds with soap and water. Wear a cloth mask in public places to help reduce community spread. Do not go to your Doctor s office unless instructed to do so. For any non- emergency symptoms, call your Doctor s office to get instructions on how to manage (we might recommend a telephone or virtualvisit). For emergency symptoms, proceed to Emergency Department as usual but inform them of cough and fever symptoms OCTAVIANO if present (or call on the way if possible). Yasmin HUFFMAN, outside sales professional Clinical Services Director [facility] [phone] documented in this encounterAdena [facility]07-29-[facility]22 Miscellaneous Notes* Telephone Encounter - Annette Ramsey PT - 01/13/2022 10:19 AM EDT Called to discuss return to therapy following recent hospitalization for LE swelling and fever. Hadcellulitis in RLE. Reports about correction up calf. Discussed concern with edema, use of Bioness and return to therapy. Discussed hold - week by week basis. Patient agreeable. documented in this encounterAdena [facility]07-28-2022 NoteHNO ID: [id number] Author: Norm Mayes DPM Service: Podiatry Author Type: Physician Type: Progress Notes Filed: 01/12/2022 11:22 AM Note Text: POD SX SERVICE CONSULT PROGRESS NOTE SERVICE DATE: 01/12/2022 SERVICE TIME: 8:41 AM Subjective INTERVAL HPI: NAEO. No new complaints Current Facility-Administered Medications Medication Dose Route Frequency - NaCl 0.9% iv flush bag 20 mL INTRAVENOUS PRN - pregabalin 200 mg cap(s) (LYRICA) 200 mg ORAL BID - rivaroxaban 20 mg tab(s) (XARELTO) 20 mg ORAL AT BEDTIME - docusate sodium 100 mg cap(s) (COLACE) 100 mg ORAL BID - morphine SR 15 mg tab(s) (MS CONTIN, ORAMORPH SR) 15 mg ORAL BID - baclofen 10 mg tab(s) (LIORESAL) 10 mg ORAL BID - sodium chloride 0.9 % (flush) 2-10 mL (BD POSIFLUSH) 2-10 mL INTRAVENOUS q 12 H - docusate sodium 100 mg cap(s) (COLACE) 100 mg ORAL BID PRN - bisacodyl 10 mg suppository (DULCOLAX) 10 mg RECTAL DAILY PRN - zolpidem 5 mg tab(s) (AMBIEN) 5 mg ORAL AT BEDTIME PRN - sodium chloride 0.9 % (flush) 3-5 mL (BD POSIFLUSH) 3-5 mL INTRAVENOUS q 12 H - oxyCODONE IR 5 mg tab(s) (ROXICODONE) 5 mg ORAL q 3 H PRN - oxyCODONE IR 10 mg tab(s) (ROXICODONE) 10 mg ORAL q 3 H PRN - acetaminophen 1,000 mg tab(s) (TYLENOL) 1,000 mg ORAL q 8 H PRN - ondansetron (PF) 4 mg injection (ZOFRAN) 4 mg INTRAVENOUS q 6 H PRN - ondansetron orally disintegrating 8 mg tab(s) (ZOFRAN ODT) 8 mg ORAL q 6 H PRN - tiZANidine 2 mg tab(s) (ZANAFLEX) 2 mg ORAL BID - lidocaine 5 % ointment (XYLOCAINE) TOPICAL PRN - albuterol 2.5 mg /3 mL (0.083 %) 1.25 mg (PROVENTIL) 1.25 mg INHALATION TID - clotrimazole 1 % (LOTRIMIN, CLOTRIM) TOPICAL BID - naloxegol 25 mg tab(s) (MOVANTIK) 25 mg ORAL DAILY - baclofen 100 % 625 mcg patient's own pump - [facility] placeholder INTRATHECAL CONTINUOUS - clomiPHENe 50 mg tab(s) (SEROPHENE) 50 mg ORAL q 48 HR - cabergoline 0.5 mg tab(s) (DOSTINEX) 0.5 mg ORAL MON and NINFA - ceFAZolin iv piggyback 2 g in D5W (iso-osmotic) 100 mL (ANCEF) 2 g INTRAVENOUS q 8 H Objective PHYSICAL EXAM: VASC: DP and PT pulses palpable to RLE secondary to edema and non palpable to LLE. CFT <3s to all pedal digits. NEURO: Diminished protective sensation B/L MSK: deferred DERM: wound located to proximal posterior medial right lower leg. Measures 4.0 x 4.0 x 0.1 cm, level of subQ wound located to distal posterior medial right lower extremity. Measures 2.5 x 2.0 x 0.1 cm, level of subQ Superficial abrasion wound located to proximal posterior lower extremity at the level of the midshaft of the tibia. Measures 1.2 x 1.0 x 0.1 cm, level of subQ ? All wounds noted above are positive for periwound erythema, edema and active serous drainage. No evidence of deeper infection. No purulent drainage, undermining, tracking, tunneling, probe to bone, or fluctuance. ? RLE erythema much improved. Now localized to distal forefoot. Violaceous changes noted diffusely to anterior right lower leg ? BP 125/71 Pulse 75 Temp (Src) 98.2 (Oral) Resp 16 Wt 285 lb (129.3kg) SpO2 99% O2 Therapy: Room Air DATA: Diagnostic tests reviewed for today's visit: CBC, Coags, BMP, Mg, Phos Recent Labs 01/12/22 0550 01/11/22 0623 01/10/22 0439 WBC 8.10 7.12 7.15 HB 15.7 15.3 14.1 HCT 46.3 45.1 42.1 PLT 206 190 144* NA 140 141 142 K 4.6 4.2 4.4 CHLOR 106* 104 106* CO2 28 26 27 BUN 11 12 11 CREAT 0.85 0.83 0.91 GLUC 101* 97 84 CA 9.0 9.0 8.7 P 3.5 3.3 3.6 Impression/Recommendations Cellulitis, RLE Superficial abrasion wounds x3, RLE Sepsis Lymphedema, BLE Tinea pedia, b/l feet Tinea ungiuim, b/l digits 1-5 T8-T12 paraparesis ? Pt seen and evaluated bedside. Labs, chart and imaging reviewed. 01/07 blood cx: NGTD 01/09 wound cx: NGTD Wounds noted above are superficial in nature. Cellulitis of RLE is likely secondary to lymphedema and the absence of compression prior to the onset of the patient's symptoms. Discussed watermelon inspector management of venous return in the BLE including custom compression stockings upon discharge. Dressed with betadine, adaptic, 4x4 gauze, abd pad, kerlix, rinku wrap compression. Encourage elevation of legs Cont abx per ID. Ancef, clotrimazole on. ID not thinking UTI, PNA. PO abx at DC Cont Lotrimin. Discussed out patient management of tinea unguium as well upon discharge. Will continue to follow for local wound care. Plan for [facility] wound care center follow up in 2-3 weeks upon d/c SIGNATURE: Norm Mayes DPM PATIENT NAME: Mateus Manzano DATE: January 12, 2022 TIME: 8:44 AM [id number] NoteHNO ID: [id number] Author: Aorn Jon Jr., MD Service: Hospital Medicine Author Type: Physician Type: Progress Notes Filed: 01/11/2022 1:47 PM Note Text: DEPARTMENT OF HOSPITAL MEDICINE PROGRESS NOTE SERVICE DATE: 01/11/2022 SERVICE TIME: 1:43 PM Hospital Medicine/Primary Attending: Aron Jon Jr. NIGHT AND WEEKEND COVERAGE: [place] COVERAGE: Days: [phone], please page attending physician. Nights: [phone], please page [facility] Night coverage pager [phone]. Subjective INTERVAL HPI: Continued resolution of swelling and redness. Feels a lot better today. Current Facility-Administered Medications Medication Dose Route Frequency - NaCl 0.9% iv flush bag 20 mL INTRAVENOUS PRN - pregabalin 200 mg cap(s) (LYRICA) 200 mg ORAL BID - rivaroxaban 20 mg tab(s) (XARELTO) 20 mg ORAL AT BEDTIME - docusate sodium 100 mg cap(s) (COLACE) 100 mg ORAL BID - morphine SR 15 mg tab(s) (MS CONTIN, ORAMORPH SR) 15 mg ORAL BID - baclofen 10 mg tab(s) (LIORESAL) 10 mg ORAL BID - sodium chloride 0.9 % (flush) 2-10 mL (BD POSIFLUSH) 2-10 mL INTRAVENOUS q 12 H - docusate sodium 100 mg cap(s) (COLACE) 100 mg ORAL BID PRN - bisacodyl 10 mg suppository (DULCOLAX) 10 mg RECTAL DAILY PRN - zolpidem 5 mg tab(s) (AMBIEN) 5 mg ORAL AT BEDTIME PRN - sodium chloride 0.9 % (flush) 3-5 mL (BD POSIFLUSH) 3-5 mL INTRAVENOUS q 12 H - oxyCODONE IR 5 mg tab(s) (ROXICODONE) 5 mg ORAL q 3 H PRN - oxyCODONE IR 10 mg tab(s) (ROXICODONE) 10 mg ORAL q 3 H PRN - acetaminophen 1,000 mg tab(s) (TYLENOL) 1,000 mg ORAL q 8 H PRN - ondansetron (PF) 4 mg injection (ZOFRAN) 4 mg INTRAVENOUS q 6 H PRN - ondansetron orally disintegrating 8 mg tab(s) (ZOFRAN ODT) 8 mg ORAL q 6 H PRN - tiZANidine 2 mg tab(s) (ZANAFLEX) 2 mg ORAL BID - lidocaine 5 % ointment (XYLOCAINE) TOPICAL PRN - albuterol 2.5 mg /3 mL (0.083 %) 1.25 mg (PROVENTIL) 1.25 mg INHALATION TID - clotrimazole 1 % (LOTRIMIN, CLOTRIM) TOPICAL BID - naloxegol 25 mg tab(s) (MOVANTIK) 25 mg ORAL DAILY - baclofen 100 % 625 mcg [facility] INTRATHE[facility] CONTINUOUS - clomiPHENe 50 mg tab(s) (SEROPHENE) 50 mg ORAL q 48 HR - cabergoline 0.5 mg tab(s) (DOSTINEX) 0.5 mg ORAL MON and NINFA - ceFAZolin iv piggyback 2 g in D5W (iso-osmotic) 100 mL (ANCEF) 2 g INTRAVENOUS q 8 H Objective PHYSICAL EXAM: BP 128/76 Pulse 80 Temp (Src) 98.4 (Oral) Resp 18 Wt 285 lb (129.3kg) SpO2 99% O2 Therapy: Room Air Physical Exam Performed GENERAL: well appearing, in no acute distress EYES: PERRLA, EOMI, Conjunctiva clear MOUTH and THROAT: membranes moist NECK: supple HEART: regular rate and rhythm, S1 and S2, no murmur LUNGS: clear to auscultation; no rales or wheezes NEURO: Alert and Oriented x3; Nonfocal PSYCH: Appropriate mood; Cooperative RIGHT LEG: erythema/swelling much better today, some ecchymosis over wild, open large bulla lateral lower leg - no purulent drainage; few persistent bullae ? ? Lines, Drains, and Airways Line Peripheral 01/10/225 Short Left Forearm 22 Gauge <1 day DATA: Diagnostic tests reviewed for today's visit: Most recent labs Most recent imaging Assessment/Plan Problem List Sepsis due to skin infection (HCC) POA: Yes Cellulitis of right leg POA: Yes Urinary tract infection associated with indwelling urethral catheter (HCC) POA: Yes Acute non-recurrent maxillary sinusitis POA: Yes Atelectasis POA: Yes Tinea pedis of both feet POA: Yes Spinal cord injury, T7-T12 (HCC) POA: Yes Neurogenic bladder POA: Yes History of pulmonary embolus (PE) POA: Yes Presence of intrathecal baclofen pump POA: Yes Chronic pain syndrome POA: Yes Class 1 obesity due to excess calories with serious comorbidity and body mass index (BMI) of 34.0 to 34.9 in adult POA: Yes HOSPITAL COURSE: This is a 36 year old male, with a PMH of a 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 Mitch Morgan) and obesity, who presented to the ED on 01/07/22 with complaints of fevers, cough and back pain for 2-3 days which he thought might be secondary to a UTI. He also noted the abrupt onset of erythema and swelling of his right leg for 1 day. In the ED, he was febrile to 102.5F with HR 126. Na 135, K 4.1, Cr 1.0, WBC 15.9, Plts 147. Lactate 1.7. Urine micro showed 6-10 WBC, 11-25 RBC and many bacteria. CXR showed atypical pneumonia v asthma v bronchitis. COVID-19 test was negative. He was given IV Vanco and Cipro prior to admission to a medical bed. He was started on IV Rocephin and Vanco and ID was consulted. His last fever was in the shank pinner of 01/08/22. ID changed antibiotics to IV Ancef for cellulitis, which was thought to be the cause of his sepsis. His right leg swelling and erythema improved. CT of his Right Shoulder showed minor arth (more content not included)...[facility] [id number] NoteHNO ID: [id number] Author: Norm Mayes DPM Service: Podiatry Author Type: Physician Type: Progress Notes Filed: 01/11/2022 11:27 AM Note Text: POD SX SERVICE CONSULT PROGRESS NOTE SERVICE DATE: 01/11/2022 SERVICE TIME: 9:21 AM Subjective INTERVAL HPI: RLE erythema/swelling much better today. Discussed case with ID, cancelled MRI RLE, not concerned for deeper infection Current Facility-Administered Medications Medication Dose Route Frequency - NaCl 0.9% iv flush bag 20 mL INTRAVENOUS PRN - pregabalin 200 mg cap(s) (LYRICA) 200 mg ORAL BID - rivaroxaban 20 mg tab(s) (XARELTO) 20 mg ORAL AT BEDTIME - docusate sodium 100 mg cap(s) (COLACE) 100 mg ORAL BID - morphine SR 15 mg tab(s) (MS CONTIN, ORAMORPH SR) 15 mg ORAL BID - baclofen 10 mg tab(s) (LIORESAL) 10 mg ORAL BID - sodium chloride 0.9 % (flush) 2-10 mL (BD POSIFLUSH) 2-10 mL INTRAVENOUS q 12 H - docusate sodium 100 mg cap(s) (COLACE) 100 mg ORAL BID PRN - bisacodyl 10 mg suppository (DULCOLAX) 10 mg RECTAL DAILY PRN - zolpidem 5 mg tab(s) (AMBIEN) 5 mg ORAL AT BEDTIME PRN - sodium chloride 0.9 % (flush) 3-5 mL (BD POSIFLUSH) 3-5 mL INTRAVENOUS q 12 H - oxyCODONE IR 5 mg tab(s) (ROXICODONE) 5 mg ORAL q 3 H PRN - oxyCODONE IR 10 mg tab(s) (ROXICODONE) 10 mg ORAL q 3 H PRN - acetaminophen 1,000 mg tab(s) (TYLENOL) 1,000 mg ORAL q 8 H PRN - ondansetron (PF) 4 mg injection (ZOFRAN) 4 mg INTRAVENOUS q 6 H PRN - ondansetron orally disintegrating 8 mg tab(s) (ZOFRAN ODT) 8 mg ORAL q 6 H PRN - tiZANidine 2 mg tab(s) (ZANAFLEX) 2 mg ORAL BID - lidocaine 5 % ointment (XYLOCAINE) TOPICAL PRN - albuterol 2.5 mg /3 mL (0.083 %) 1.25 mg (PROVENTIL) 1.25 mg INHALATION TID - clotrimazole 1 % (LOTRIMIN, CLOTRIM) TOPICAL BID - naloxegol 25 mg tab(s) (MOVANTIK) 25 mg ORAL DAILY - baclofen 100 % 625 mcg patient's own pump - [facility] placeholder INTRATHECAL CONTINUOUS - clomiPHENe 50 mg tab(s) (SEROPHENE) 50 mg ORAL q 48 HR - cabergoline 0.5 mg tab(s) (DOSTINEX) 0.5 mg ORAL MON and NINFA - ceFAZolin iv piggyback 2 g in D5W (iso-osmotic) 100 mL (ANCEF) 2 g INTRAVENOUS q 8 H Objective PHYSICAL EXAM: VASC: DP and PT pulses palpable to RLE secondary to edema and non palpable to LLE. CFT <3s to all pedal digits. NEURO: Diminished protective sensation B/L MSK: deferred DERM: wound located to proximal posterior medial right lower leg. Measures 4.0 x 4.0 x 0.1 cm, level of subQ wound located to distal posterior medial right lower extremity. Measures 2.5 x 2.0 x 0.1 cm, level of subQ Superficial abrasion wound located to proximal posterior lower extremity at the level of the midshaft of the tibia. Measures 1.2 x 1.0 x 0.1 cm, level of subQ ? All wounds noted above are positive for periwound erythema, edema and active serous drainage. No evidence of deeper infection. No purulent drainage, undermining, tracking, tunneling, probe to bone, or fluctuance. ? RLE erythema much improved. Now localized to distal forefoot. Violaceous changes noted diffusely to anterior right lower leg ? BP 135/67 Pulse 77 Temp (Src) 99.1 (Oral) Resp 18 Wt 285 lb (129.3kg) SpO2 95% O2 Therapy: Room Air DATA: Diagnostic tests reviewed for today's visit: CBC, Coags, BMP, Mg, Phos Recent Labs 01/11/22 0623 01/10/22 0439 01/09/22 0556 01/08/22 1506 WBC 7.12 7.15 9.12 10.96 HB 15.3 14.1 14.5 15.5 HCT 45.1 42.1 42.6 46.9 PLT 190 144* 121* 127* NA 141 142 139 141 K 4.2 4.4 4.3 4.8 CHLOR 104 106* 106* 104 CO2 26 27 27 32* BUN 12 11 11 12 CREAT 0.83 0.91 0.92 0.90 GLUC 97 84 96 96 CA 9.0 8.7 8.3* 8.5 MG -- -- -- 1.9 P 3.3 3.6 2.9 2.7 Impression/Recommendations Cellulitis, RLE Superficial abrasion wounds x3, RLE Sepsis Lymphedema, BLE Tinea pedia, b/l feet Tinea ungiuim, b/l digits 1-5 T8-T12 paraparesis ? Pt seen and evaluated bedside. Labs, chart and imaging reviewed. MRI R lower leg pending 01/07 blood cx: NGTD 01/09 wound cx: NGTD Cellulitis of RLE is likely secondary to lymphedema and the absence of compression prior to the onset of the patient's symptoms. Discussed correction management of venous return in the BLE including custom compression stockings upon discharge. Wounds noted above are superficial in nature. Discussed case with ID. MRI cancelled RLE. Not concerned with deeper infection. Dressed with betadine, adaptic, 4x4 gauze, abd pad, kerlix, rinku wrap compression Cont abx per ID. Cont Lotrimin. Discussed out patient management of tinea unguium as well upon discharge. Will continue to follow for local wound care. Plan for [facility] wound care center follow up in 2-3 weeks upon d/c SIGNATURE: Norm Mayes DPM PATIENT NAME: Mateus Manzano DATE: January 11, 2022 TIME: 9:22 AM PAGER:[facility] [id number] NoteHNO ID: [id number] Author: Aron Jon Jr., MD Service: Hospital Medicine Author Type: Physician Type: Progress Notes Filed: 01/10/2022 7:42 PM Note Text: DEPARTMENT OF HOSPITAL MEDICINE PROGRESS NOTE SERVICE DATE: 01/10/2022 SERVICE TIME: 7:33 PM Hospital Medicine/Primary Attending: Aron Jon Jr. NIGHT AND WEEKEND COVERAGE: [facility] COVERAGE: Days: [phone], please page attending physician. Nights: [phone], please page [facility] Night coverage pager [phone]. Subjective INTERVAL HPI: Swelling and redness of right lower leg continue to decrease. Dark redness concentrated over wild. No purulent drainage from blister site Current Facility-Administered Medications Medication Dose Route Frequency - NaCl 0.9% iv flush bag 20 mL INTRAVENOUS PRN - pregabalin 200 mg cap(s) (LYRICA) 200 mg ORAL BID - rivaroxaban 20 mg tab(s) (XARELTO) 20 mg ORAL AT BEDTIME - docusate sodium 100 mg cap(s) (COLACE) 100 mg ORAL BID - morphine SR 15 mg tab(s) (MS CONTIN, ORAMORPH SR) 15 mg ORAL BID - baclofen 10 mg tab(s) (LIORESAL) 10 mg ORAL BID - sodium chloride 0.9 % (flush) 2-10 mL (BD POSIFLUSH) 2-10 mL INTRAVENOUS q 12 H - docusate sodium 100 mg cap(s) (COLACE) 100 mg ORAL BID PRN - bisacodyl 10 mg suppository (DULCOLAX) 10 mg RECTAL DAILY PRN - zolpidem 5 mg tab(s) (AMBIEN) 5 mg ORAL AT BEDTIME PRN - sodium chloride 0.9 % (flush) 3-5 mL (BD POSIFLUSH) 3-5 mL INTRAVENOUS q 12 H - oxyCODONE IR 5 mg tab(s) (ROXICODONE) 5 mg ORAL q 3 H PRN - oxyCODONE IR 10 mg tab(s) (ROXICODONE) 10 mg ORAL q 3 H PRN - acetaminophen 1,000 mg tab(s) (TYLENOL) 1,000 mg ORAL q 8 H PRN - ondansetron (PF) 4 mg injection (ZOFRAN) 4 mg INTRAVENOUS q 6 H PRN - ondansetron orally disintegrating 8 mg tab(s) (ZOFRAN ODT) 8 mg ORAL q 6 H PRN - tiZANidine 2 mg tab(s) (ZANAFLEX) 2 mg ORAL BID - lidocaine 5 % ointment (XYLOCAINE) TOPICAL PRN - albuterol 2.5 mg /3 mL (0.083 %) 1.25 mg (PROVENTIL) 1.25 mg INHALATION TID - clotrimazole 1 % (LOTRIMIN, CLOTRIM) TOPICAL BID - naloxegol 25 mg tab(s) (MOVANTIK) 25 mg ORAL DAILY - baclofen 100 % 625 mcg patient's own pump - [facility] placeholder INTRATHECAL CONTINUOUS - clomiPHENe 50 mg tab(s) (SEROPHENE) 50 mg ORAL q 48 HR - cabergoline 0.5 mg tab(s) (DOSTINEX) 0.5 mg ORAL MON and NINFA - ceFAZolin iv piggyback 2 g in D5W (iso-osmotic) 100 mL (ANCEF) 2 g INTRAVENOUS q 8 H - iv contrast (radiology procedure) INTRAVENOUS DIRECTED PRN Objective PHYSICAL EXAM: BP 135/74 Pulse 84 Temp (Src) 98.4 (Oral) Resp 16 Wt 285 lb (129.3kg) SpO2 98% O2 Therapy: Room Air Physical Exam Performed GENERAL: well appearing, in no acute distress EYES: PERRLA, EOMI, Conjunctiva clear MOUTH and THROAT: membranes moist NECK: supple HEART: regular rate and rhythm, S1 and S2, no murmur LUNGS: clear to auscultation; no rales or wheezes NEURO: Alert and Oriented x3; Nonfocal PSYCH: Appropriate mood; Cooperative RIGHT LEG: erythema continues to recede and lighten, open large bulla lateral lower leg - no purulent drainage; few persistent bullae ? ? Lines, Drains, and Airways Line Peripheral 01/09/22 1035 Right Hand 22 Gauge 1 day DATA: Diagnostic tests reviewed for today's visit: Most recent labs Most recent imaging Assessment/Plan Problem List Sepsis due to skin infection (HCC) POA: Yes Cellulitis of right leg POA: Yes Urinary tract infection associated with indwelling urethral catheter (HCC) POA: Yes Acute non-recurrent maxillary sinusitis POA: Yes Atelectasis POA: Yes Tinea pedis of both feet POA: Yes Spinal cord injury, T7-T12 (HCC) POA: Yes Neurogenic bladder POA: Yes History of pulmonary embolus (PE) POA: Yes Presence of intrathecal baclofen pump POA: Yes Chronic pain syndrome POA: Yes Class 1 obesity due to excess calories with serious comorbidity and body mass index (BMI) of 34.0 to 34.9 in adult POA: Yes HOSPITAL COURSE: This is a 36 year old male, with a PMH of a 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 Mitch Morgan) and obesity, who presented to the ED on 01/07/22 with complaints of fevers, cough and back pain for 2-3 days which he thought might be secondary to a UTI. He also noted the abrupt onset of erythema and swelling of his right leg for 1 day. In the ED, he was febrile to 102.5F with HR 126. Na 135, K 4.1, Cr 1.0, WBC 15.9, Plts 147. Lactate 1.7. Urine micro showed 6-10 WBC, 11-25 RBC and many bacteria. CXR showed atypical pneumonia v asthma v bronchitis. COVID-19 test was negative. He was given IV Vanco and Cipro prior to admission to a medical bed. He was started on IV Rocephin and Vanco and ID was consulted. His last fever was in the shank pinner of 01/08/22. 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 Patient notes he was out of town for his daughter's softball tournament and stopped wearing his compression socks over the weekend. At the end of the weekend, his left leg had increased swelling, redness and warmth prompting visit to the ED. Patient noted redness has improved since admission and IV abx. He denies any pain to the area. He does note fungal toenails and athletes foot which he has had for months and has been treating with Charlierimario as well. Patient denies any current N/V/F/C/SOB/CP/calf pain or any other symptoms at this time. Current Facility-Administered Medications Medication Dose Route Frequency - NaCl 0.9% iv flush bag 20 mL INTRAVENOUS PRN - pregabalin 200 mg cap(s) (LYRICA) 200 mg ORAL BID - rivaroxaban 20 mg tab(s) (XARELTO) 20 mg ORAL AT BEDTIME - docusate sodium 100 mg cap(s) (COLACE) 100 mg ORAL BID - morphine SR 15 mg tab(s) (MS CONTIN, ORAMORPH SR) 15 mg ORAL BID - baclofen 10 mg tab(s) (LIORESAL) 10 mg ORAL BID - sodium chloride 0.9 % (flush) 2-10 mL (BD POSIFLUSH) 2-10 mL INTRAVENOUS q 12 H - docusate sodium 100 mg cap(s) (COLACE) 100 mg ORAL BID PRN - bisacodyl 10 mg suppository (DULCOLAX) 10 mg RECTAL DAILY PRN - zolpidem 5 mg tab(s) (AMBIEN) 5 mg ORAL AT BEDTIME PRN - sodium chloride 0.9 % (flush) 3-5 mL (BD POSIFLUSH) 3-5 mL INTRAVENOUS q 12 H - oxyCODONE IR 5 mg tab(s) (ROXICODONE) 5 mg ORAL q 3 H PRN - oxyCODONE IR 10 mg tab(s) (ROXICODONE) 10 mg ORAL q 3 H PRN - acetaminophen 1,000 mg tab(s) (TYLENOL) 1,000 mg ORAL q 8 H PRN - ondansetron (PF) 4 mg injection (ZOFRAN) 4 mg INTRAVENOUS q 6 H PRN - ondansetron orally disintegrating 8 mg tab(s) (ZOFRAN ODT) 8 mg ORAL q 6 H PRN - tiZANidine 2 mg tab(s) (ZANAFLEX) 2 mg ORAL BID - lidocaine 5 % ointment (XYLOCAINE) TOPICAL PRN - albuterol 2.5 mg /3 mL (0.083 %) 1.25 mg (PROVENTIL) 1.25 mg INHALATION TID - clotrimazole 1 % (LOTRIMIN, CLOTRIM) TOPICAL BID - naloxegol 25 mg tab(s) (MOVANTIK) 25 mg ORAL DAILY - baclofen 100 % 625 mcg patient's own pump - [facility] placeholder INTRATHECAL CONTINUOUS - clomiPHENe 50 mg tab(s) (SEROPHENE) 50 mg ORAL q 48 HR - cabergoline 0.5 mg tab(s) (DOSTINEX) 0.5 mg ORAL MON and NINFA - ceFAZolin iv piggyback 2 g in D5W (iso-osmotic) 100 mL (ANCEF) 2 g INTRAVENOUS q 8 H - iv contrast (radiology procedure) INTRAVENOUS DIRECTED PRN REVIEW OF SYSTEMS: CONSTITUTIONAL: No fevers, chills, nightsweats, unintended weight loss HEENT: Denies frequent or severe heaches, nasal congestion/sinus symptoms, problematic allergy problems. EYES: No diplopia or blurry vision. CARDIOVASCULAR: No chest pain, dyspnea, palpitations, orthopnea, PND, ankle edema. PULM: No shortness of breath , unexplained cough. GI: No dysphagia/odynophagia, problematic reflux, constipation, diarrhea, changes in stool habits, hematochezia, melena. : No new urinary complaints NEURO: No new balance problems, peripheral weakness/paresthesias or numbness of concern. MUSC-SKEL: No RLE pain. PSY: No concerns regarding depression, anxiety or panic. INTEGUMENTARY: RLE swelling, redness, and increased warmth. Objective PHYSICAL EXAM: Physical Exam Performed: VASC: DP and PT pulses palpable to RLE secondary to edema and non palpable to LLE. CFT <3s to all pedal digits. NEURO: Intact protective sensation B/L MSK: Muscle strength 5/5 in dorsiflexion and plantarflexion b/l. Active ROM to eversion and inversion b/l. DERM: Superficial abrasion wound located to proximal posterior medial lower extremity. Measures 4.0 x 4.0 x 0.1 cm. Superficial abrasion wound located to distal posterior medial lower extremity. Measures 2.5 x 2.0 x 0.1 cm. Superficial abrasion wound located to proximal posterior lower extremity at the level of the midshaft of the tibia. Measures 1.2 x 1.0 x 0.1 cm. All abrasions wounds noted above are positive for periwound erythema, edema and active serous drainage. No evidence of purulent drainage, undermining, tracking, tunneling, probe to bone, or fluctuance. RLE noted to have erythema extending to the level of the knee. Ecchymosis and violaceous changes noted diffusely to the RLE. BP 140/82 Pulse 74 Temp (Src) 97.7 (Oral) Resp 16 Wt 285 lb (129.3kg) SpO2 95% O2 Therapy: Room Air DATA: Diagnostic tests reviewed for today's visit: CBC, Coags, BMP, Mg, Phos Recent Labs 01/10/22 0439 01/09/22 0556 01/08/22 1506 01/07/22 1308 WBC 7.15 9.12 10.96 -- HB 14.1 14.5 15.5 -- HCT 42.1 42 (more content not included)...[facility] [id number] NoteHNO ID: [id number] Author: Aron Jon Jr., MD Service: Hospital Medicine Author Type: Physician Type: Progress Notes Filed: 01/09/2022 10:45 PM Note Text: DEPARTMENT OF HOSPITAL MEDICINE PROGRESS NOTE SERVICE DATE: 01/09/2022 SERVICE TIME: 10:39 PM Hospital Medicine/Primary Attending: Brian Multani MD NIGHT AND WEEKEND COVERAGE: [facility] [facility] COVERAGE: Nights: [phone], please page [facility] Night coverage pager [phone]. ASSESSMENT ? Patient primarily has sepsis from skin infection he is tinea pedis with a cellulitis going up to the proximal tibia anteriorly and some faint lymphangitis on the medial portion of the right thigh but no inguinal adenopathy ? Continue IV Ancef - continued improvement in erythema and swelling ? ID ordered MRI Right Leg ? Urine Cx (+) Ecoli but not clear patient has a significant UTI ? Lotrimin for tinea pedis which is probably the nidus for the cellulitis ? Blood Cx x2: negatoive ? PLAN ? Continue IV Ancef ? Follow up on MRI Right Leg ? Follow-up on ID recommendations? ? Reason for Admission: Sepsis due to skin infection with borderline hypotension but lactate 1.7 ? Consultants: Dr. Estrella for infectious disease ? PROCEDURES: NONE ? Disposition: Home ? ? EK08/05/2021 sinus rhythm normal EKG ? Echocardiogram-none Recent Labs 01/09/22 0556 01/08/22 1506 01/07/22 0545 WBC 9.12 10.96 15.94* RBC 4.65 5.00 5.92 HB 14.5 15.5 18.5* HCT 42.6 46.9 55.1* PLT 121* 127* 147* MCV 91.6 93.8 93.1 MCH 31.2 31.0 31.3 MPV 11.0 11.5 11.4 ABSNEUT 7.14 9.54* 14.19* NEUTP 78.3 87.0 89.0 BANDS -- -- 0.0 LYMPHP 14.7 10.0 7.0 MONOP 5.4 1.0 2.0 Recent Labs 01/09/22 0556 01/08/22 1506 01/07/22 1308 01/07/22 0730 GLUC 96 96 -- 113* NA 139 141 -- 135* K 4.3 4.8 -- 4.1 CHLOR 106* 104 -- 101 CO2 27 32* -- 25 CREAT 0.92 0.90 1.30* 1.02 BUN 11 12 -- 19 ANION 6* 5* -- 9 CA 8.3* 8.5 -- 8.7 TPROT -- -- -- 6.9 ALB 2.6* 2.8* -- 3.4* TBILI -- -- -- 0.5 ALKPHOS -- -- -- 82 AST -- -- -- 30 ALT -- -- -- 33 Recent Labs 01/07/22 0545 LACT 1.7 Recent Labs 01/09/22 0556 01/08/22 1506 01/07/22 1308 01/07/22 0730 BUN 11 12 -- 19 CREAT 0.92 0.90 1.30* 1.02 CA 8.3* 8.5 -- 8.7 P 2.9 2.7 2.7 -- MG -- 1.9 1.9 -- HOSPITAL COURSE: Mateus Manzano is a 36 year old male presented with past medical history of T8-T12 paraparesis, neurogenic bladder, wheelchair-bound with minimal movement of the legs, chronic pain on baclofen pump along with 30 mg of morphine sulfate and Lyrica [address] Mitch Morgan at [facility], presents with being unwell with fever tachycardia cough and back pain which she thought was from UTI for 2-3 days. In the the emergency department the patient was initially thinking that it was a urinary tract infection however this morning he had abrupt onset of cellulitis of the right leg. He has chronic back pain and it was exacerbated which is the reason they thought it was a UTI. He is also had cough and has an evaluation some atelectasis or early pneumonia in the right lower lobe which on examination appears to be associated with other than acute sinusitis and postnasal drip. In the emergency department he was found to be septic his lactate is normal but white count is 15.9. He is somewhat polycythemic which may be dehydration but in May he had a hemoglobin of 17.3 and today it is 18.6. On the medical floor started on ceftriaxone and vancomycin. Etiologic studies for pneumonia are sent along with blood and urine cultures. Patient will self cath himself. His pain management doctor notified as he has an appointment for his medications in 2 days and will probably be in the hospital. By Hospital day #2 cellulitis improving urine symptoms had abated and urine was clear. 102.9 on Sunday but no high fever on Sunday ? Sepsis (HCC) POA: Yes Class 1 obesity due to excess calories with serious comorbidity and body mass index (BMI) of 34.0 to 34.9 in adult POA: Yes Urinary tract infection associated with indwelling urethral catheter (HCC) POA: Yes Cellulitis of right leg POA: Yes Sepsis due to skin infection (HCC) POA: Yes Acute non-recurrent maxillary sinusitis POA: Yes Atelectasis POA: Yes Tinea pedis of both feet POA: Yes Principal Problem: Sepsis (HCC) Assessment AND Plan: Fluids leg is probably the source with the cellulitis but also the urine culture preliminarily positive continuing antibiotics Active Problems: Class 1 obesity due to excess calories with serious comorbidity and body mass index (BMI) of 34.0 to 34.9 in adult Assessment AND Plan: Outpatient follow-up Urinary tract infection associated with indwelling urethral catheter (HCC) Assessment AND Plan: As above Cellulitis of right leg Assessment AND Plan Elevation of the leg he has some bulla on the medial posterior aspect of th (more content not included)...[facility] [id number] NoteHNO ID: [id number] Author: Brian Multani MD Service: Hospital Medicine Author Type: Physician Type: Progress Notes Filed: 01/08/2022 4:09 PM Note Text: DEPARTMENT OF HOSPITAL MEDICINE PROGRESS NOTE SERVICE DATE: 01/08/2022 SERVICE TIME: 4:09 PM Hospital Medicine/Primary Attending: Brian Multani MD NIGHT AND WEEKEND COVERAGE: [facility] COVERAGE: Nights: [phone], please page [facility] Night coverage pager [phone]. ASSESSMENT No chest pain or shortness of breath labs reviewed and white count creatinine improved. ? Patient primarily has sepsis from skin infection he is tinea pedis with a cellulitis going up to the proximal tibia anteriorly and some faint lymphangitis on the medial portion of the right thigh but no inguinal adenopathy ? He does have postnasal drip with some cough atelectasis most likely in the right base with some focal wheezing ? He self caths every 4 hours or a few white cells he is covered with ceftriaxone pending culture but this does not sound to be from his urine it seems to be cellulitis causing the sepsis symptoms ? Conferred with Dr. Estrella -now on Ancef with negative staph nasal and he is responding with his leg. He says his urine was clear after some fluids and he has have had primarily E. coli sensitive to cephalexin with 1 time it was resistant to cephalexin. Safest just to continue the Ancef since he is not having any untoward urinary tract symptoms and is cellulitis is improving ? Lotrimin for tinea pedis which is probably the nidus for the cellulitis ? Acidosis on venous blood gas most likely from prolonged application of tourniquet ? PLAN ? Vancomycin/ceftriaxone ? Blood cultures pending ? Urine culture E. coli sensitive to cephalexin in the past but current culture pending Mycoplasma-pending but negative are the Legionella and pneumococcal studies ? Staph nasal culture-negative ? ? Reason for Admission: Sepsis due to skin infection with borderline hypotension but lactate 1.7 ? Consultants: Dr. Estrella for infectious disease ? PROCEDURES: NONE ? Disposition: Home ? ? EK08/05/2021 sinus rhythm normal EKG ? Echocardiogram-none Recent Labs 01/08/22 1506 01/07/22 0545 WBC 10.96 15.94* RBC 5.00 5.92 HB 15.5 18.5* HCT 46.9 55.1* PLT 127* 147* MCV 93.8 93.1 MCH 31.0 31.3 MPV 11.5 11.4 ABSNEUT 9.54* 14.19* NEUTP 87.0 89.0 BANDS -- 0.0 LYMPHP 10.0 7.0 MONOP 1.0 2.0 Recent Labs 01/08/22 1506 01/07/22 1308 01/07/22 0730 GLUC 96 -- 113* NA 141 -- 135* K 4.8 -- 4.1 CHLOR 104 -- 101 CO2 32* -- 25 CREAT 0.90 1.30* 1.02 BUN 12 -- 19 ANION 5* -- 9 CA 8.5 -- 8.7 TPROT -- -- 6.9 ALB 2.8* -- 3.4* TBILI -- -- 0.5 ALKPHOS -- -- 82 AST -- -- 30 ALT -- -- 33 Recent Labs 01/07/22 0545 LACT 1.7 Recent Labs 01/08/22 1506 01/07/22 1308 01/07/22 0730 BUN 12 -- 19 CREAT 0.90 1.30* 1.02 CA 8.5 -- 8.7 P 2.7 2.7 -- MG 1.9 1.9 -- HOSPITAL COURSE: Mateus Manzano is a 36 year old male presented with past medical history of T8-T12 paraparesis, neurogenic bladder, wheelchair-bound with minimal movement of the legs, chronic pain on baclofen pump along with 30 mg of morphine sulfate and Lyrica [address] [facility], presents with being unwell with fever tachycardia cough and back pain which she thought was from UTI for 2-3 days. In the the emergency department the patient was initially thinking that it was a urinary tract infection however this morning he had abrupt onset of cellulitis of the right leg. He has chronic back pain and it was exacerbated which is the reason they thought it was a UTI. He is also had cough and has an evaluation some atelectasis or early pneumonia in the right lower lobe which on examination appears to be associated with other than acute sinusitis and postnasal drip. In the emergency department he was found to be septic his lactate is normal but white count is 15.9. He is somewhat polycythemic which may be dehydration but in May he had a hemoglobin of 17.3 and today it is 18.6. On the medical floor started on ceftriaxone and vancomycin. Etiologic studies for pneumonia are sent along with blood and urine cultures. Patient will self cath himself. His pain management doctor notified as he has an appointment for his medications in 2 days and will probably be in the hospital. By Hospital day #2 cellulitis improving urine symptoms had abated and urine was clear. 102.9 on Sunday but no high fever on Sunday ? Sepsis (HCC) POA: Yes Class 1 obesity due to excess calories with serious comorbidity and body mass index (BMI) of 34.0 to 34.9 in adult POA: Yes Urinary tract infection associated with indwelling urethral catheter (HCC) POA: Yes Cellulitis of right leg POA: Yes Sepsis due to skin infection (HCC) POA: Yes Acute non-recurrent maxillary sinusitis P (more content not included)...[facility] [id number] NoteCOVID 19 RESULT: SARS-CoV-2 (Agent of COVID-19) Not Detected by RT-PCR or equivalent method. This test has been authorized by FDA under an Emergency Use Authorization (EUA). INFLUENZA A PCR: Negative for Influenza A by RT-PCR INFLUENZA B PCR: Negative for Influenza B by RT-PCR RSV PCR: Negative for Respiratory Syncytial Virus (RSV) by PCRWvumedicine Barnesville HospitalComment on above:Performed By: #### [id number] ####[facility] LABORATORYCLIA [id number] [place] [address] [facility] OF [id number] History of Present illness Narrative* Annette Ramsey, PT - 12/29/2021 8:03 AM EDT Episode Visit Count: 59 Therapist That Will Oversee The Plan Of Care: Annette Ramsey Start of Care Date: 07/14/20 Onset Date: 11/07/12 Plan of Care Certification Date: 12/14/21 Next Certification Due Date: 02/18/22 REHABILITATION AND SPORTS THERAPY PHYSICAL THERAPY TREATMENT NOTE ASSESSMENT: Mateus Manzano tolerated the session with fatigue and increased spasticity. He demonstrated difficulty with elevated pain the previous night and elevated tone this am and improvements in spasticity with use of FES and weight bearing pre-gait tasks. Significant improvement in gait distance noted with use of thigh cuff only. The patient will continue to benefit from ongoing skilled physical therapy to progress toward set goals. PLAN FOR NEXT VISIT: LE stretching PRN, functional strengthening, Bioness with quad only SUBJECTIVE: Didn't have Ketamine infusion as scheduled yesterday, rescheduled for last week of January. Couldn'tget it yesterday because he ate and they didn't tell him he couldn't eat for 6 hours prior. Legs are crap today, took an extra Morphine last night because back was hurting. Wasn't able to getmuch sleep. Starting to have some itching again last night. Legs have been jumpy since botox injections. First day legs were like jello, but for the past couple. days they're been jumpy. When legs jump, it's like a nerve fire. Took an extra Baclofen to try and help the legs, which isn't doing much. Pain: Pain Pain Level: 2 Pain Location: Back Description: Sore OBJECTIVE MEASURES WITH LEVEL OF FUNCTION: TREATMENT: Neuromuscular Re-Education: 1: Bioness set up - table 2 with supervision 2: -Standing at walker- lateral weight shifts in exercise mode10 sec on, 8 sec off x 3-5 minute bouts for spasticiy mgt 3: -Gait training with walker and supervision- 165' total prior to seated rest Skilled Intervention: Skilled judgment used to assess appropriate program for balance and coordination activity. Patient education as noted. Billing Neuromuscular Re-Education Treatment Minutes: 55 Total Treatment Time Minutes (timed/untimed): 60 Annette Ramsey PT [facility] History of Present illness Narrative* Mercy Hazel RN - 12/27/2021 10:50 AM EDT 08/25 waist to knees During intake, pt reported that he ate at 9:45. Dr. Hernandez notified and said pt could wait until 2pm for infusion and hold the versed. Pt declined and wanted to wait until tomorrow for the first ketamine infusion. Reinforced instructions: NPO for 6 hours and drivers' cash clerk needed. documented in this [facility] [facility] History of Present illness Narrative* Conrad Dodd, PT - 12/27/2021 8:26 AM EDT Episode Visit Count: 58 Therapist That Will Oversee The Plan Of Care: Annette Ramsey Start of Care Date: 07/14/20 Onset Date: 11/07/12 Plan of Care Certification Date: 12/14/21 Next Certification Due Date: 02/18/22 REHABILITATION AND SPORTS THERAPY PHYSICAL THERAPY TREATMENT NOTE ASSESSMENT: Mateus Manzano tolerated the session with fatigue and expected muscle soreness. He demonstrated difficulty with functional step up without Bioness and improvements noted in tolerance withuse of quad stimulation. Continues to demonstrate improved gait quality with use of Bioness. The patient will continue to benefit from ongoing skilled physical therapy to progress toward set goals. PLAN FOR NEXT VISIT: LE stretching PRN, functional strengthening, Bioness with quad only SUBJECTIVE: I got Botox yesterday and sometimes it takes up to 48 hours to start working. Last night my legs felt like Jell-O Pain: Pain Pain Level: (Did not rate) OBJECTIVE MEASURES WITH LEVEL OF FUNCTION: SBA with w/c follow during gait training. TREATMENT: Neuromuscular Re-Education: 1: Bioness set up table 2 - supervision for set up. Patient able to adjust parameters with min cuesfor completion 2: Functional training mode: STS to FWW. Multiple trials to fatigue - patient with improved independence noted. 3: Trial with gait and training mode with fwd step ups to 8 step and FWW - to fatigue. Difficulty with quad initiation during gait mode. 4: Gait training with wh walker and supervision- 100ft Skilled Intervention: Skilled judgment used to assess appropriate program for balance and coordination activity. Insured patient safety with use of gait belt. Patient education as noted. Billing Neuromuscular Re-Education Treatment Minutes: 45 Total Treatment Time Minutes (timed/untimed): 45 Conrad Dodd PT documented in this encounterA[facility] Instructions* Patient Instructions* Ruslan Sherwood MD - 12/26/2021 10:10 AM EDT 1. POST-BOTOX INJECTIONS You have received botulinum toxin injections today. The skin around the site of injections should be monitored for a couple of days. If redness or swelling occur, the skin should be examined by a health career advisor to rule out infection. Please contact our office via [employer] or by phone at [phone] any time with any questions or concerns. Please note that your next injections should not be scheduled less than 90 days from today. documented in this encounterAdena [facility]07-11-[facility]22 History of Present illness Narrative* Ruslan Sherwood MD - 12/26/2021 9:45 AM EDT BOTULINUM TOXIN THERAPY Patient accompanied by : self Current complaints / history since last visit: most recent botulinum toxin injections on 09/12/2021.Injections continue to be helpful for reducing stiffness in the anterior hips. They allowed for ease with standing, stretching, transfers and overall comfort. More importantly, the injections facilitate his participation with outpatient neuro rehab PT. He is able to ambulate with the Yuenimei deviceduring this sessions. He feels that Botox wore off approximately three weeks ago with a gradual return of his symptoms. The injections did not stop working abruptly. He denies severe calf spasms on the left. They are intermittent and are associated with clonus. Symptoms are not constant or bother his usual activities. Illnesses / hospitalizations since the last visit: No recent hospitalizations, but had a few ER visits due to uncontrolled pruritus. He denies any additional baclofen withdrawal symptoms. He is scheduled to start Ketamine infusions with pain management. Other updates: No recent UTIs Anticoagulation: on Xarelto Home stretching/exercise routine: consistently PT/OT: currently in program for outpatient PT locally in [place] Use of oral medications for spasticity: baclofen 10mg twice daily; tizanidine 2mg up to twice a day BT therapy effective? Yes - stiffness, spasms/cramps, pain/discomfort, ease of care and active function (Assists with participation at PT) Duration of benefit: 9 weeks Side effects: No Spasm scale: 1=Mild spasms induced by stimulation Pain related to the purpose of the visit: Yes LOCATION: lower back PAIN SCALE: 4 on a scale of 0-10, usually a 3 PAIN CHARACTER: achy, constant Patient Entered Data Ingeniatrics No flowsheet data found. Spasticity NRS 09/12/2021 09/06/2021 09/06/2021 08/15/2021 06/13/2021 Spasticity Level - 4 4 5 5 Spasm Scale 1=Mild spasms induced by stimulation - - - - Spasm Scale - Trendable Number 1 - - - - Spasm Scale 09/06/2021 09/06/2021 08/15/2021 06/13/2021 Spasm Frequency Mild spasms induced by stimulation Mild spasms induced by stimulation Mild spasms induced by stimulation Infrequent full spasms occuriung less than once per hour Spasm Severity Mild Mild Mild Mild Global Impression of Change 09/06/2021 09/06/2021 08/15/2021 06/13/2021 Rehab global impression of change Much improved Much improved Very much improved Much improved Nutritional status: appetite- good, intentional weight loss, swallowing- denies dysphagia Driving issues: NA Safety concerns regarding living situations and safety at home: No At risk for falling: Yes . Actual falls since last visit: frequency/number - none, denies any recent injuries. Review of Systems Constitutional: Negative for appetite change, fever, recent unintentional weight loss and recent weight gain. Musculoskeletal: Positive for muscle weakness. Respiratory: Negative. Cardiovascular: Negative. Strength Right Left Shoulder abduction 5 5 Elbow flexion 5 5 Elbow extension 5 5 Wrist extension 5 5 Fur Matcher strength (kg) 64 68 Hip flexion 2 3+ Knee flexion 3 3 Knee extension 3 2+ Plantarflexion 1 1 Dorsiflexion 3 1 Spasticity Right Left Shoulder 0 0 Elbow flexion 0 0 Elbow extension 0 0 Wrist flexion 0 0 Wrist extension 0 0 Finger flexion 0 0 Finger extension 0 0 Hip adduction 0 0 Knee extension 0. 0 Knee flexion 0 0 Plantarflexion 0 0 Modified Dannie Scale 0 - No increase in tone 1 - Slight increase in tone (catch and release at end of ROM) 1+ - Slight increase in tone, manifested by a catch, followed by minimal resistance throughout remainder (less than half of ROM) 2 - Marked increase in tone through most of the ROM, but affected part(s) easily moved 3 - Considerable increase in tone; passive movement difficult 4 - Affected part(s) rigid in flexion or extension + Clonus in the ankle that was sustained. Spasms observed: RUE: no right upper extremity spasms LUE: no left upper extremity spasms RLE: right lower extremity spasms LLE: no left lower extremity spasms Timed 25 foot walk: N/A Assistance required: wheelchair Ambulation Index Score: 9 - Restricted to wheelchair, dependent for transfers UNIVERSAL PROTOCOL / SAFETY CHECKLIST Procedure to be Performed: Botulinum toxin injections Sign In: A Moment of CARE was completed. Personnel directly involved with the procedure wore the appropriate PPE (Personal Protective Equipment). Patient/Surrogate Stated/Verified: PATIENT VERIFIED(optional for EMERGENT procedures): Patient name, Date of , Relevant allergies and The intended procedure Time Out Communication: Intended patient and procedure match the source documents. Consent documented and matches the intended procedure. Sign Out: SIGN OUT (optional for EMERGENT procedures): None Ruslan Sherwood MD UNIVERSAL PROTOCOL / SAFETY CHECKLIST The risks, benefits and alternatives of the procedure were explained. Written Consent Obtained: yes - 12/13/2020 Clinician(s) performing the injections: Ruslan Sherwood MD Operations Examiner: Claudia Case RN The patient was positioned supine . Brand of toxin injected: Botox. After skin preparation with alcohol, a total dose of 100 unitswere injected as follows: Muscle Limb/Side Dose Guidance Comments Iliopsoas RLE 50 units EMG/US 2 sites Iliopsoas LLE 50 units EMG/US 2 sites Total Dose: 1000 units discarded. Dilution: 100 units / 2 ml LOT #: [id number] Expiration Date: Month: 6 Year: 24 The injections were well-tolerated. Minimal bleeding occurred at the injection sites. Assessment: (R25.2) Spasticity (primary encounter diagnosis) (G82.20) Paraplegia (HCC) (S24.103A) Spinal cord injury at T7-T12 level ([facility]) Mr Manzano is known to our spasticity practice due to SCI with severe spasticity. Spasticity is managed and controled with ITB Therapy. We have been targeting BT injections in the iliopsoas bilaterally to assist with management of reported stiffness in the hip flexors. He continues to experience benefit from these botulinum toxin injections and agrees to injecting the same dose. Ultrasound was utilized to ensure safety and accuracy (avoidance of neurovascular structures). We discussed including the gastroc/soleus muscle today, but patient has deferred. Spasms are not bothersome and do not lead to severe pain or discomfort. He would be willing in the future to include these muscles, but for now he would like to hold off. He is interested in decreasing the ITB therapy rate at his upcoming visit with Ms Ron Mak. Plan: 1 - Repeat injections in 3 months, 100 units. We held off on including gastrocs on the right.Transfers independently 2 - PT/OT: currently in outpatient neuro rehab program working on gait training with [employer] 3 - ITB pump management and refill here at the [facility]. Patient would like to decrease his rate 4 - Letter Dr Vijay Roque, Ms Odette Mak Time spent with patient: 45 mn. Ruslan Sherwood MD documented in this encounterAdena [facility]07-07-2022 History of Present illness Narrative* Eitan Hernandez DO - 12/22/2021 1:14 PM EDT [facility] for Comprehensive Pain Recovery Neurological [place] December 22, 2021 This is a virtual visit. 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 He was referred by Shaq Salinas [address] [facility] [id number]. Chief complaint: Chronic Pain SUBJECTIVE: 2013 T4-12 incomplete spinal cord injury. Constant pain. Seeing pain management, but medication isn't helping as much. Was taking oxycodone, but stopped working. The pain is now worse. Struggles sleeping. Pain keeps him awake. Can't get comfortable. Can't live his life in constant pain. Spine Red Flag Mateus Manzano has no red flag symptoms. Anesthesia: yes Schizophrenia: no : n/a CHF: no Uncontrolled HTN: no Recent DE: no Arrythmias: no Afib: no Hyperthyroid: no Aortic Stenosis: no Liver Failure: no Increased ICP: no Previous pain treatments: medications Functional Limitations: The patient has been unable to work since 2012 (year of the accident). Wellness: How would you describe your diet: good How many days a week do you exercise: 7 How many hours do you sleep a night: 6 Emotional Symptoms: include depression, anxiety and frustration The patient has loss of energy and sleep The patient denies suicidal ideation. Non-medical stresses: Include relationship conflicts Family involvement: is supportive Financial Status: Trust Allergies: Reviewed in the EMR Current Medications: Reviewed in the EMR PAST MEDICAL HISTORY Diagnosis Date Asthma 08/05/2021 Clotting disorder (HCC) HUGH-1 DVT (deep venous thrombosis) ([facility]) 2012 ED (erectile dysfunction) Factor 5 Leiden mutation, heterozygous (HCC) History of spinal cord injury 03/03/2015 Lower urinary tract infectious disease Methylenetetrahydrofolate reductase (MTHFR) gene mutation MRSA (methicillin resistant Staphylococcus aureus) 10/2012 spine Neurogenic bladder self straight catheterization KARAN (obstructive sleep apnea) pt never got a cpap; pt unsure if he needed one KARAN (obstructive sleep apnea) 08/05/2021 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 Recurrent UTI Sepsis ([facility]) 02/20/2021 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[facility]) PAST SURGICAL HISTORY Procedure Laterality Date IMPLTJ/RPLCMT ITHCL/EDRL DRUG NFS PRGRBL PUMP 03/02/2015 SynchroMed II, 40 ml pump with catheter tip at T9 - Informed consent sigend on 03/03/15 (paper form) IMPLTJ/RPLCMT ITHCL/EDRL DRUG NFS PRGRBL PUMP 10/13/2016 Revision of ITB catheter due to malfunction PAST SURGICAL HISTORY OF 11/09/2012 laminectomy T-4-T-12 PAST SURGICAL HISTORY OF 2002 ORIF with pins right hand PAST SURGICAL HISTORY OF 2012 filter placement for DVT PAST SURGICAL HISTORY OF percutaneous vascular procedure PAST SURGICAL HISTORY OF neck surgery REVISE MEDIAN N/CARPAL TUNNEL SURG Bilateral 2020 Psychiatric History: None Social History Tobacco Use Smoking status: Current Every Day Smoker Packs/day: 1.00 Years: 18.00 Pack years: 18.00 Types: Cigarettes Smokeless tobacco: Former User Types: Chew Quit date: 01/19/2005 Vaping Use Vaping Use: Never used Substance Use Topics Alcohol use: Yes Comment: rarely Drug use: No Family History FAMILY HISTORY Problem Relation Age of Onset Diabetes Father other (factor v leiden) Father homozigus carries mthfr other (factor v leiden) Mother homozigus carries pie 1 Cancer Paternal Grandfather Heart disease Paternal Grandfather Cancer Paternal Grandmother leukemia Heart Paternal Grandmother Anesthesia Problems No Family History ROS was positive for: Fatigue Headaches more than once or twice a week Persistent pain in joints Back pain All of the other systems reviewed were negative. OBJECTIVE: PHYSICAL EXAM: Deferred secondary to video failure IMAGING: No relevant imaging to review ASSESSMENT: SCI Spasticity Chronic Pain Syndrome PLAN: 1. Further evaluation: None 2. Nutrition: Yes 3. Therapies: Encouraged daily activity 4. Sleep: Yes 5. Worklessness: Yes 6. Medications: No recommendations 7. Interventions: None 8. Infusions: Yes 9. Pain Psychology: Yes Review, Ask, Review: Yes Follow-up: after infusion I spent a total of 60 minutes on the date of the service which included preparing to see the patient, [id number] patient care, completing clinical documentation, obtaining and/or reviewing separately obtained history, performing a medically appropriate examination, counseling and educating the pat ient/family/caregiver and ordering medications, tests, or procedures. Eitan Hernandez DO Important Patient Information: 1. To schedule Pain Recovery appointments or post-injection office visits, please call: [phone] 2. The nursing staff and medical assistants are an integral part of your pain recovery team and will be handling your phone calls and inquiries. 3. Your study results and treatment plan will be discussed during a follow-up appointment. If you do not have a follow-up appointment and wish to discuss any issues directly with me, please call: [phone] to set-up an appointment. 4. MyChart is best used for refill requests or yes or no questions. Anything more complicated will likely require a follow-up appointment that you can schedule by [phone]. 5. It is the practice of the Department to not fill disability or any other insurance-related forms/documentation. All of the office notes, study results, and other documentation as part of your evaluation will be available to you and to your Primary Care Physician (PCP). Use of this material to complete such forms will be at the discretion of your PCP/referring physician. 6. If you are scheduled for a ketamine infusion, you will be contacted regarding specific scheduling instructions in the future by our department. There is no need to contact our department regardingthe scheduling process or your estimated wait; you will be contacted once there is an opening. documented in this encounterAdena [facility]07-07-[facility]22 History of Present illness Narrative* Annette Ramsey, PT - 12/22/2021 9:51 AM EDT Episode Visit Count: 57 Therapist That Will Oversee The Plan Of Care: Annette Ramsey Start of Care Date: 07/14/20 Onset Date: 11/07/12 Plan of Care Certification Date: 12/14/21 Next Certification Due Date: 02/18/22 REHABILITATION AND SPORTS THERAPY PHYSICAL THERAPY TREATMENT NOTE ASSESSMENT: Mateus Manzano tolerated the session with fatigue and increased spasticity. He demonstrated improvements in stance control and reliance on UEs with quad only FES. The patient will continue to benefit from ongoing skilled physical therapy to progress toward set goals. PLAN FOR NEXT VISIT: Trial recumbent prior to gait, pre gait, progression of gait trials (quads only) SUBJECTIVE: Doing well. present, questions for bioness rep. Neck and shoulder still a little sore but better. Pain: OBJECTIVE MEASURES WITH LEVEL OF FUNCTION: quad ramp up adjustment for decreased clonus response TREATMENT: Neuromuscular Re-Education: 1: [facility] set [facility] 2 - supervision for set up 2: Gait training with wh walker and supervision- 108' 3: Standing lateral weight shifting - thighs on only to decreased spasticity 4: Gait trial again with quad stim only, initially increased tone, but with increased distance decreased reliance on UEs required with improved quad control, stance stability and decreased clonus response 5: Several questions answered by Louise rep present for spouse and patient Skilled Intervention: Skilled judgment used to assess appropriate program for balance and coordination activity. Insured patient safety with use of wc follow Billing Neuromuscular Re-Education Treatment Minutes: 40 Total Treatment Time Minutes (timed/untimed): 55 Annette Ramsey PT documented in this encounterAdena [facility]07-06-2022 Miscellaneous Notes* Telephone Encounter - Radhika Harris MA - 12/21/2021 3:01 PM EDT Left VM reminder of appt and office # for any questions or concerns. Radhika Harris MA documented in this encounterAdena [facility]07-05-2022 History of Present illness Narrative* Annette Ramsey PT - 12/20/2021 7:52 AM EDT Episode Visit Count: 56 Therapist That Will Oversee The Plan Of Care: Annette Ramsey Start of Care Date: 07/14/20 Onset Date: 11/07/12 Plan of Care Certification Date: 12/14/21 Next Certification Due Date: 02/18/22 REHABILITATION AND SPORTS THERAPY PHYSICAL THERAPY PROGRESS REPORT PLAN OF CARE UPDATE: Assessment: Mateus Manzano demonstrates minimal improvement in rising from a chair, standing and walking in the house. He hasprogressed toward goals. Patient continues to present with impairments in balance, coordination, edema management, flexibility, gait, joint mobility, posture and strength that interfere with . Current prognosis is Good due to: good overall health status;positive past response to therapy;within-session changes;good support system/ coping skills;Prognosis may be limited dueto chronic nature of impairments . He will benefit from continued skilled therapy services to meet t he updated goals for this plan of care as noted below. Goals for Episode of Care: created on 01/27/20 through 03/27/20 Updated 06/01/21 PN 08/17/21 UPDATED 09/15/21 UPDATED 11/03/2021 Updated 12/20/2021 Short Term: Consult general duty nurse as needed for bracing needs for ambulation goals. 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 ONGOING Patient will ambulate 150 feet with loftstrand crutch Right with modified independence for community participation with his . (patients goal is to be mariangel to walk into a restaurant with his and walk back out) ONGOING, limited by tone, painand weakness/imbalance Patient will demonstrate current home exercise program independently. ONGOING Patient demonstrates independent and proper use of assistive device to allow for improved walking quality and safety therefore reducing the risk of falls. ONGOING- standing at home, but not ambulating at this time. Patient Goals: Remember how to use my legs and strengthen them up. To walk again, or at least work toward it NEW GOALS: Patient will be indep with use of Yuenimei L300 system in preparation for home unit- PROGRESSING Patient will improve gait with use of Yuenimei L300 and wheeled walker to > 100' without seated rest for improved home independence. PROGRESSING Patient will improve static unsupported standing to > 30 seconds indicating improved balance andfunctional strength. PROGRESSING Patient will improve 10 MWT to 0.6 m/s for home and community participation. ONGOING Planned Interventions, Frequency, and Duration: 2x/week, 8 weeks Total Number of Visits Planned: 12 Patient to be seen for PLAN FOR NEXT VISIT: bioness with rep SUBJECTIVE: Patient Reason for Visit: PT recert. R shoulder has been sore since last visit, happened while on the leg press. Pinched nerve feeling, radiating into neck and shoulder blade. Botox and Ketamine infusion on the Pain: Pain Pain Level: 3 Pain Location: Thoracic Spine - Right Description: Radiating PROMIS Scales Higher is Better 10/20/2021 11/30/2021 12/20/2021 Phys Func - Score 38 (moderate dysfunction) - 36 (moderate dysfunction) Phys Func - Percentile 12 % - 8 % Social Roles - Score 35 (moderate dysfunction) - 39 (moderate dysfunction) Social Role - Percentile 7 % - 14 % GH Physical - Score - 42.3 (Good) - GH Physical - Percentile - 22 % - GH Mental - Score - 50.8 (Very Good) - GH Mental - Percentile - 53 % - Self-Eff Symptom - Score 48 (Average) - 42 (Average) Self-Eff Symptom - Percentile 42 % - 21 % T-scores: mean of general population = 50. 5 points is clinically meaningfully difference Percentiles provide an indication of how the patient's score ranks in relation to the general population. Higher percentile rankings indicate better function/quality of life. 50th percentile is the average of the general population and indicates half of respondents had a worse score. Lower is Better 09/12/2021 10/20/2021 12/20/2021 Fatigue - Score 62 (moderate) 57 (mild) 55 (within normal limits) Fatigue - Percentile 12 % 24 % 31 % T-scores: mean of general population = 50. 5 points is clinically meaningfully difference Percentiles provide an indication of how the patient's score ranks in relation to the general population. Higher percentile rankings indicate better function/quality of life. 50th percentile is the average of the general population and indicates half of respondents had a worse score. OBJECTIVE MEASURES WITH LEVEL OF FUNCTION: LE Strength R Hip Extension: 2+/5 R Hip Flexion (L2): 3/5 R Hip ABduction: 3/5 R Knee Flexion: 5/5 L Hip Extension: 2/5 L Hip Flexion (L2): 2+/5 L Hip ABduction: 3-/5 L Knee Flexion: 3/5 Mobility Rolling: Independent Supine To Sit: Independent Sit to Supine: Independent Sit To Stand: Supervision Stand To Sit: Supervision Bed To Chair: Independent Bed To Chair Transfer Type: Sit Pivot Car Transfer: Modified Independent Sit Pivot: Independent Supine to Long Sit: Independent Supine to Short Sit: Independent Short Sit to Supine: Independent Rolling Right Side: Independent Rolling Left Side: Independent Gait Gait: Supervision Gait Distance (feet): 80 Gait Device: Wheeled Walker Brace/Orthotics: Yuenimei L300 unit - thigh and lower bilaterally TREATMENT: Manual Therapy: 1: Seated first rib R Gr III++ 2: Prone over face cradle: 3: -STM to R paraspinal trigger points 4: -R T2-T6 UPAs Gr IIII++ 5: -rug frame mounter Gr III++ T4/6 6: Educ on self thoracic mob in hooklying with foam roller 7: -several trials with improved extension noted Skilled Intervention: Manual skills to improve joint mobility, ROM, and decrease pain. Utilized anatomy knowledge of the therapist, and assessment of patient's response to intervention. Neuromuscular Re-Education: 1: Yuenimei set up- supervision 2: PN completed- see objectives Skilled Intervention: Skilled judgment used to assess appropriate program for balance and coordination activity. Billing Manual TherapyTreatment Minutes: 25 Neuromuscular Re-Education Treatment Minutes: 45 Total Treatment Time Minutes (timed/untimed): 75 Annette Ramsey PT documented in this encounterAdena Fayette Medical [facility] History of Present illness Narrative* Annette Ramsey PT - 12/08/2021 8:01 AM EDT Episode Visit Count: 54 Therapist That Will Oversee The Plan Of Care: Jonathan Monroy Start of Care Date: 07/14/20 Onset Date: 11/07/12 Plan of Care Certification Date: 09/15/21 Next Certification Due Date: 12/14/21 REHABILITATION AND SPORTS THERAPY PHYSICAL THERAPY TREATMENT NOTE ASSESSMENT: Mateus Manzano tolerated the session with decreased endurance and fatigue. He demonstrated difficulty with UE fatigue and improvements in quad timing, gait distance and overall gait bree. The patient will continue to benefit from ongoing skilled physical therapy to progress toward set goals. PLAN FOR NEXT VISIT: Gait with bioness, weight machines, HS? SUBJECTIVE: Back sore, has been so busy hasn't really had a chance to relax. Father present for treatment session. Had softball etc Pain: Pain Pain Level: 4 Pain Location: Back Description: Sore Post Treatment Pain Post Treatment Symptoms: fatigued OBJECTIVE MEASURES WITH LEVEL OF FUNCTION: TREATMENT: Neuromuscular Re-Education: 1: Bioness set up tablet 2 - patient able to complete set up with supervision 2: Gait training with wh walker and wc follow: 3: -82', 48', 60' with supervision 4: -increase in clonus and tone last 2 bouts Skilled Intervention: Skilled judgment used to assess appropriate program for balance and coordination activity. Billing Neuromuscular Re-Education Treatment Minutes: 40 Total Treatment Time Minutes (timed/untimed): 40 Annette Ramsey PT documented in this encounterAden[facility]06-[facility] History of Present illness Narrative* Shaq Salinas MD - 11/30/2021 3:00 PM EDT CC: ITB pump protrusion HPI: Mateus Manzano comes to clinic for follow-up of his baclofen pump. He had the pump replaced in due to battery depletion. He has since lost about 50 lbs with diet and activity and states thepump is sticking straight out in the abdomen. He denies flipping of the pump. Focused Exam: Pump is palpable in the right abdominal region. The top of the pump is superficial and the pump is perpendicular with the body. I obtained the history and performed the physical exam. I have reviewed the information dictated byPASQUALE Bonilla for accuracy. I have edited the note and agree with the final text. 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 He had ITB pump/catheter implantation in 2014, followed by catheter revision in 2016. The pump had flipped and the catheter was coiled. The pump was replaced in August,. He reports good healing from surgery. He began to diet and exercise and has lost 50 lbs since then. The pump is now protruding and is, essentially, perpendicular to the abdominal wall. Plan: Mr. Flood has been losing weight and wants to continue to lose weight. We discussed with him the choice of surgical revision of the abdominal pocket but he wants to consider that after his weight has stabilized. In the meantime, he will wear and abdominal binder to keep the pump aligned with the abdominal wall. He will contact us or come to the ED with any new issues. Shaq Salinas MD documented in this encounterAdena [facility]06-15-[facility]22 History of Present illness Narrative* Annette Ramsey, PT - 11/30/2021 7:01 AM EDT Episode Visit Count: 53 Therapist That Will Oversee The Plan Of Care: Jonathan Monroy Start of Care Date: 07/14/20 Onset Date: 11/07/12 Plan of Care Certification Date: 09/15/21 Next Certification Due Date: 12/14/21 REHABILITATION AND SPORTS THERAPY PHYSICAL THERAPY TREATMENT NOTE ASSESSMENT: Mateus Manzano tolerated the session with decreased endurance, fatigue and expected muscle soreness. He demonstrated difficulty with LE stiffness and elevated tone initially and improvements in gait without support with repeat trials. The patient will continue to benefit from ongoing skilled physical therapy to progress toward set goals. PLAN FOR NEXT VISIT: Gait with Bioness, trial loftstrands again, LE machine with Bioness SUBJECTIVE: Had whole body itching reaction, thinks maybe food? Not sure, went to ED to get pump checked, but no one there to do it. Eventually Benadryl worked and things calmed down, but lasted a week with nausea.. Seeing doc for pain, may be trying injections. Burn to back of left leg - from gas in mower. I feel weak today, R leg is tight, L leg isn't. Pain: OBJECTIVE MEASURES WITH LEVEL OF FUNCTION: TREATMENT: Neuromuscular Re-Education: 1: Bioness set up tablet 2 - patient able to complete set up with supervision 2: In // bars: 3: -several trials of fwd unsupported gait 4: -in exercise mode, static unsupported standing - thigh only 5: Increased difficulty with quad endurance and overall upright standing positioning due to fatigueand tone Skilled Intervention: Skilled judgment used to assess appropriate program for balance and coordination activity. Billing Neuromuscular Re-Education Treatment Minutes: 60 Total Treatment Time Minutes (timed/untimed): 60 Annette Ramsey PT documented in this encounterAdena [facility]06-01-2022 Miscellaneous Notes* Telephone Encounter - Ceferino Jones PA-C - 11/16/2021 5:00 PM EDT Spoke with pt, he reports 50 lb weight loss since he had surgery about 3 months ago for baclofen pump replacement. He is eating better and exercising. He states the pump is sticking straight out now.He denies flipping. He will f/u with Dr. Salinas on 11/30/21. He will contact us if it worsens in the meantime. Ceferino Jones PA-C * Telephone Encounter - [facility] Paramjit Galeano - 11/16/2021 3:43 PM EDT Patient returned call to the office. [phone] * Telephone Encounter - Ceferino Jones PA-C - 11/16/2021 9:50 AM EDT Attempted to contact pt regarding his baclofen pump. No answer, left VM requesting a call back. documented in this encounterAdena [facility]05-31-2022 History of Present illness Narrative* Amarilys Mak, SARAH.TELEVISION DIRECTOR - 11/15/2021 11:30 AM EDT Images from the original note were not included. INTRATHECAL BACLOFEN THERAPY MANAGEMENT VISIT Patient accompanied by daughter, Princess. PAST SURGICAL HISTORY Procedure Laterality Date IMPLTJ/RPLCMT ITHCL/EDRL DRUG NFS PRGRBL PUMP 03/02/2015 SynchroMed II, 40 ml pump with catheter tip at T9 - Informed consent sigend on 03/03/15 (paper form) IMPLTJ/RPLCMT ITHCL/EDRL DRUG NFS PRGRBL PUMP 10/13/2016 Revision of ITB catheter due to malfunction PAST SURGICAL HISTORY OF 11/09/2012 laminectomy T-4-T-12 PAST SURGICAL HISTORY OF 2002 ORIF with pins right hand PAST SURGICAL HISTORY OF 2012 filter placement for DVT PAST SURGICAL HISTORY OF percutaneous vascular procedure PAST SURGICAL HISTORY OF neck surgery REVISE MEDIAN N/CARPAL TUNNEL SURG Bilateral 2019 HISTORY SINCE LAST VISIT: Pt. last seen in spasticity clinic on 09/06/21 for follow-up after ITB replacement surgery (surgery date of 08/23/21). Plan at that time was: PLAN: 1. ITB pump NOT refilled, rate increased by 3% 2. Continue oral baclofen 10 mg BID 3. Consider botox for bilateral gastroc 4. F/U: ITB refill 11/11/2021 at 8:30- Obdulio. Alarm date is 11/17/2021. Pt. is scheduled for next botox appointment on 09/12/[address] Sherwood He returns for pump refill today. Botox was done on 09/[address] Sherwood as above and he continues to feel that therapy is effective. He reports developing diffuse itching early Sunday morning, around 12 am. He states he was very irritable on Sunday night and into Sunday and his legs were also jumpy. Pt. went to the local ED for the symptoms and was given a short course of prednisone and also PRN hydroxyzine. However, symptoms persisted despite use of these medications and he returned to the local ED a 2nd time. His urine was tested and findings were indicative of a UTI, so he was started on bactrim and discharged home. The symptoms continued into Sunday and he states he was unable to sleep Sunday night (and took 4 benadryl without relief). He and his began to worry that he may be going into withdrawal related to his pump, so they decided to drive to [facility] to be seen in the ED here. On arrival, pt. states he told the staff that he had concerns about his pump, but subsequently waited 3 hours before he was seen by a provider. An abdominal x-ray and oral baclofen were ordered, but he left prior to the initiation of any treatments, as he states he began to feel better after takinghis morning medications and also felt nothing was being done at the ED. Today, he reports feeling better- the itching and leg jumpiness have resolved. He also reports he was able to sleep well last night. He wonders if he had an allergic reaction to something he ate, as this was mentioned to him in the ED. He otherwise reports good control of symptoms with current ITB rate. He does not recall if the rateincrease done at last visit was helpful. He has concerns that his pump is moving around in his abdomen. He has lost a lot of weight (approx. 50 lbs) in the last several months and has plans to lose about 60 lbs more. He states that he now notices that his pump will tilt forward and poke out when he is sitting. He reports that this has caused issues with some of his activities- specifically, he states he occ.uses a Bobcat and when he pulls the safety bar down, it bumps into the area of the pump that is sticking out, which can cause pain and bleeding in the area. He denies any pain at the pump site today. He continues to do OP PT locally in [place]. He has resumed twice a week frequency and finds this helpful. He performs regular stretching and HEP at least daily. Exercise / stretching / rehabilitation: PT and daily stretching/exercise Use of oral medications for spasticity: baclofen 10mg twice daily (he did not increase his oral baclofen use during recent episode), tizanidine 2 mg BID. Patient Entered Data Ingeniatrics No flowsheet data found. Spasticity NRS 09/12/2021 09/06/2021 09/06/2021 08/15/2021 06/13/2021 Spasticity Level - 4 4 5 5 Spasm Scale 1=Mild spasms induced by stimulation - - - - Spasm Scale - Trendable Number 1 - - - - Spasm Scale 09/06/2021 09/06/2021 08/15/2021 06/13/2021 Spasm Frequency Mild spasms induced by stimulation Mild spasms induced by stimulation Mild spasms induced by stimulation Infrequent full spasms occuriung less than once per hour Spasm Severity Mild Mild Mild Mild Global Impression of Change 09/06/2021 09/06/2021 08/15/2021 06/13/2021 Rehab global impression of change Much improved Much improved Very much improved Much improved Pain related to the purpose of the visit: No 0 on a scale of 0 to 10 Safety concerns: domestic violence, living situation, and safety at home: No, lives with . He is able to ambulate short distances with a walker- reports he walked nearly 200 ft in therapy last week Driving issues: No- uses hand controls Risk of Falls: Yes, But no recent falls Change in bowel habits: None reported Change in urinary symptoms suggesting UTI: Currently being treated for UTI as above Skin Integrity: Intact per pt. report Review of Systems Constitutional: Is actively losing weight, has lost 50 lbs in the last few months Skin: Negative for rash and ulceration. HENT: Negative for trouble swallowing. Musculoskeletal: Positive for arthralgias, back pain, myalgias and muscle weakness. Genitourinary: Positive for frequent urinary infection, dysuria. Has a UTI currently, being treated with bactrim EXAM: Position: Sitting General: awake and alert, NAD, pleasant, no dysarthria Abdomen: RLQ surgical incision well approximated, healing, ASSURANCE ASSOCIATE. Some erythema noted on the skin at the area of the top of pump. No bleeding or drainage, no areas of visible pump noted. Strength Right Left Hip flexion 1+ 1 Knee flexion 1 2 Knee extension 3 2+ Plantarflexion 4 3 Dorsiflexion 3 2 Spasticity Right Left Hip adduction 0 0 Knee extension 0. 0 Knee flexion 0 0 Plantarflexion 0 0 Modified Dannie Scale 0 - No increase in tone 1 - Slight increase in tone (catch and release at end of ROM) 1+ - Slight increase in tone, manifested by a catch, followed by minimal resistance throughout remainder (less than half of ROM) 2 - Marked increase in tone through most of the ROM, but affected part(s) easily moved 3 - Considerable increase in tone; passive movement difficult 4 - Affected part(s) rigid in flexion or extension Spasms observed: RUE: no right upper extremity spasms LUE: no left upper extremity spasms RLE: no right lower extremity spasms LLE: no left lower extremity spasms Timed 25 foot walk: N/A Assistance required: wheelchair Ambulation Index Score: 9 - Restricted to wheelchair, dependent for transfers Patient ID verified using 2 identifiers: Yes UNIVERSAL PROTOCOL / SAFETY CHECKLIST Procedure to be Performed: ITB pump refill Sign In: A Moment of CARE was completed. Personnel directly involved with the procedure wore the appropriate PPE (Personal Protective Equipment). Patient/Surrogate Stated/Verified: PATIENT VERIFIED(optional for EMERGENT procedures): Patient name, Date of , Relevant allergies and The intended procedure Time Out Communication: Intended patient and procedure match the source documents. Consent documented and matches the intended procedure. Relevant labs, photos, and/or imaging studies have been reviewed. No correct side/site applicable for marking and visibility. Medications required for procedure verified. Fire risk assessed and interventions discussed. No implant(s) inserted. Sign Out: SIGN OUT (optional for EMERGENT procedures): No specimen collected. All instruments, equipment, possible retained foreign bodies accounted for. Post-procedure follow-up management communicated and Plan of Care Visit completed when applicable. Amarilys Mak APRN.TELEVISION DIRECTOR The risks, benefits and alternatives of the procedure were explained. Written Consent Obtained: yes - 12/09/2018 Current Drug: Lioresal Drug Concentration: 2000 mcg/ml Current Rate: 873.6 mcg/day Current Dose schedule: Simple continuous Vice President Of Finance Residual: 3.3 ml Actual Residual: 3 ml Pump Refilled: Yes Program Change: No New Drug: Lioresal Drug Concentration: 2000 mcg/ml New Rate: 873.6 mcg/day New Dose schedule: Simple continuous Bolus Given: No Estimated ZEB: 79 months (04/2028) Mehan alarm date: 02/09/2022 Final telemetry read and agrees with planned programming: Yes The skin over the baclofen pump was prepped and draped under sterile conditions. The pump refill port was accessed using the needle provided in the [employer] kit. The reservoir was emptied, and refilled with 40 mL of medication as detailed below. The needle was withdrawn and a band-aid was applied over the puncture site. The pump was reprogrammed as detailed above. Procedure completed without complications and pt. tolerated well. *Pump logs interrogated, no motor stalls noted* Medication lot #: [id number] Exp. Date: 11/2025 ASSESSMENT: (R25.2) Spasticity (primary encounter diagnosis) (G82.20) Paraplegia (HCC) (S24.103A) Spinal cord injury at T7-T12 level ([facility]) (R26.9) Abnormality of gait 36 yo male with SCI with severe spasticity. He is s/p ITB pump replacement surgery on 08/23/2021 due to impending battery failure. He generally has adequate control of symptoms with ITB therapy and botox injections, but had an episode of increased leg spasticity and itching over the weekend. He was seen in the local ED and foundto have a UTI (currently on antibiotics). He was also started on prednisone and hydroxyzine due to ? allergic reaction, but does not feel these provided benefit. His symptoms resolved yesterday and he denies new or worsening spasms today. On exam, strength in BLE remains diminished and is more prominent in the hip and knee flexors today. No significant tone is noted in BLE. Options discussed with patient. There is no obvious evidence of pump malfunction at this time and pt. is not exhibiting/reporting any s/s of baclofen withdrawal or overdose. Advised that the recent episode he describes may have been multifactorial in the setting of UTI, muscle fatigue (walked a lot in therapy the day before symptoms started), and being very close to his pump alarm date (he reports increased tone/spasms when he nears his alarm date). He verbalizes understanding of above. He would like to continue with current pump rate at this time. He was advised to continue to monitor his symptoms and that if he develops any further episodes ofitching, increased spasms, etc., he should notify the office right away, as further work-up regarding the pump may need to be considered. He did ask about the possibility of lowering his ITB rate at future visits to see if he can tolerate a lower rate/if he may be able to wean off of therapy. Reviewed the process for safe ITB weaning with him. He will think about this for now, discuss with his , and let us know if he would like his pump rate decreased at next visit. He will continue with current doses of oral baclofen and tizanidine. He will continue with OP therapy. Encouraged him to continue with regular stretching and HEP. Finally, pt. has concerns about his pump tilting forward in his abdomen in the setting of recent weight loss. Will reach out to [facility] to make them aware and see if they feel pt. needs to be seen for evaluation. PLAN: 1. ITB pump refilled, rate unchanged 2. Continue oral baclofen and tizanidine 3. Continue OP therapy, regular stretching and exercise encouraged 4. F/u for botox as scheduled on 12/26/[address] Sherwood 5. Will reach out to NSGY regarding his pump as above 6. F/U: ITB refill 02/03/2022 at 8:00 am- Obdulio. Alarm date is 02/09/2022. I spent a total of 60 minutes on the date of the service which included preparing to see the patient, [id number] patient care, completing clinical documentation, obtaining and/or reviewing separately obtained history, performing a medically appropriate examination, counseling and educating the pat ient/family/caregiver, communicating with other HCPs (not separately reported) and care coordination (not separately reported). Amarilys Mak APRN.EUNICE November 15, 2021 3:57 PM documented in this encounterAdena [facility] Center05-26-2022 History of Present illness Narrative* Conrad Dodd PT - 11/10/2021 8:43 AM EDT Episode Visit Count: 52 Therapist That Will Oversee The Plan Of Care: Jonathan Monroy Start of Care Date: 07/14/20 Onset Date: 11/07/12 Plan of Care Certification Date: 09/15/21 Next Certification Due Date: 12/14/21 REHABILITATION AND SPORTS THERAPY PHYSICAL THERAPY TREATMENT NOTE ASSESSMENT: Mateus Manzano tolerated the session with decreased endurance, fatigue and expected muscle soreness. He demonstrated improvements in strengthening progressions with use of gym equipment with and without stim units. The patient will continue to benefit from ongoing skilled physical therap y to progress toward set goals. PLAN FOR NEXT VISIT: Gait with Bioness, trial loftstrands again, LE machine with Bioness SUBJECTIVE: I am doing good. Pain: Pain Pain Level: 3 Pain Location: Back OBJECTIVE MEASURES WITH LEVEL OF FUNCTION: TREATMENT: Neuromuscular Re-Education: 1: Bioness set up- tablet 2 (patient able to complete set up with supervision) 2: Leg Ext machine with quad stim in training mode - increased difficulty with full range of [id number] 20# 3: Leg Press as follows: 4: -bilat quad stimuation in training mode: 7:7 on/off ratio - good technique with completion - 100# ~30 rep to fatigue. 5: -120# with bilat quad stim x3 reps. + additional 10 reps with no quad stimulatino to fatigue ~10reps. 6: Trial of additional weight at 140#,160#, and 180# ea with 1-2 reps to fatigue - Min A from therapist for TKE 7: Discussed proper streching and DOMS with proper recovery Skilled Intervention: Skilled judgment used to assess appropriate program for balance and coordination activity. Patient education as noted. Billing Neuromuscular Re-Education Treatment Minutes: 45 Total Treatment Time Minutes (timed/untimed): 45 Conrad Dodd PT documented in this encounterAdena F[facility] Center05-25-2022 Miscellaneous Notes* Telephone Encounter - Jami Herndon Ma - 11/09/2021 11:21 AM EDT Forms completed and faxed. * Telephone Encounter - Soila Velazquez APRN.CNP - 11/09/2021 11:19 AM EDT Paper filled out. Please fax as requested. Thank you Soila Velazquez APRN.EUNICE * Telephone Encounter - Merry Talley RN - 11/09/2021 10:40 AM EDT Patient calls in to check on status of request for leg stimulators. Notified patient forms have been received for review and signature and will be faxed back when completed. Patient verbalizes understanding. Merry Talley RN * Telephone Encounter - Roberta Neil LPN - 11/08/2021 1:34 PM EDT Teodora from [facility] called to ask if form has been completed yet. Teodora was notified that it is onthe CASH REGISTER BALANCER's desk however she is out of the office today. She states understanding. Roberta Neil LPN * Telephone Encounter - Anay Roque MD - 11/07/2021 10:25 PM EDT Soila, Please review the patients history and sign the forms, When he is seen is not relevant in this matter. Let me know if you have any questions Thanks and take care Regards, Anay Roque MD * Telephone Encounter - Jami Herndon Ma - 10/31/2021 1:02 PM EDT Forms placed on desk for review. * Telephone Encounter - Soila Velazquez APRN.CNP - 10/31/2021 7:[address] this on my desk when received. Thank you Soila Velazquez APRN.EUNICE * Telephone Encounter - Hillary Zaldivar RN - 10/28/2021 3:23 PM EDT Teodora from [facility] called and is going to re-fax forms to be filled out for Pt so he can get his nuero function stimulator. She will fax to [phone]. Hillary Zaldivar RN documented in this encounterAdena Fayette [facility] Center05-24-2022 History of Present illness Narrative* Annette Ramsey, PT - 11/08/2021 8:46 AM EDT Episode Visit Count: 51 Therapist That Will Oversee The Plan Of Care: Jonathan Monroy Start of Care Date: 07/14/20 Onset Date: 11/07/12 Plan of Care Certification Date: 09/15/21 Next Certification Due Date: 12/14/21 REHABILITATION AND SPORTS THERAPY PHYSICAL THERAPY TREATMENT NOTE ASSESSMENT: Mateus Manzano tolerated the session with fatigue. He demonstrated improvements in gaitdistance, bree, step length and quad endurance. The patient will continue to benefit from ongoing skilled physical therapy to progress toward set goals. PLAN FOR NEXT VISIT: Gait with Bioness, trial loftstrands again, LE machine with Bioness SUBJECTIVE: Back stiff and sore, slept funny. Pain: Pain Pain Level: 3 Pain Location: Back Description: Sore OBJECTIVE MEASURES WITH LEVEL OF FUNCTION: TREATMENT: Neuromuscular Re-Education: 1: Bioness set up- tablet 2 (patient able to complete set up with supervision) 2: STS in exercise mode- several reps for warm up 3: Gait training with wh walker and wc follow: 65', 92', 40' with mod I and improved spasticity Skilled Intervention: Skilled judgment used to assess appropriate program for balance and coordination activity. Insured patient safety with use of gait belt and wc follow Billing Neuromuscular Re-Education Treatment Minutes: 45 Total Treatment Time Minutes (timed/untimed): 45 Annette Ramsey PT documented in this encounterAdena [facility]ayette [facility] Center05-19-2022 History of Present illness Narrative* Conrad Dodd, PT - 11/03/2021 8:32 AM EDT Episode Visit Count: 50 Therapist That Will Oversee The Plan Of Care: Jonathan Monroy Start of Care Date: 07/14/20 Onset Date: 11/07/12 Plan of Care Certification Date: 09/15/21 Next Certification Due Date: 12/14/21 REHABILITATION AND SPORTS THERAPY PHYSICAL THERAPY PROGRESS REPORT PLAN OF CARE UPDATE: Assessment: Mateus Manzano demonstrates improvements in rising from a chair, standing, walking, activity tolerance, physical activities and recreational activities. He hasprogressed toward goals. Patient continues to present with impairments in ADL's, balance, gait, independence in exercise, joint mobility, overall function and strength that interfere with . Current prognosis is Good due to: positive past response to therapy;good support system/ coping skills Fair due to: clinical presentation;chronic nature of impairments . He will benefit from continued skilled therapy services to meet the updated goals for this plan of care as noted below. Goals for Episode of Care: created on 01/27/20 through 03/27/20 Updated 06/01/21 PN 08/17/21 UPDATED 09/15/21 UPDATED 11/03/2021 Short Term: Consult general duty nurse as needed for bracing needs for ambulation goals. - In progress. Custodial: Patient will increase strength of bilateral LEs by 1 MMT grade to allow patient to improve gait mechanics/gait pattern. ONGOING (slight progression) Patient will ambulate 150 feet with loftstrand crutch Right with modified independence for community participation with his . (patients goal is to be mariangel to walk into a restaurant with his and walk back out) ONGOING, limited by tone and pain Patient will demonstrate current home exercise program independently. ONGOING Patient demonstrates independent and proper use of assistive device to allow for improved walking quality and safety therefore reducing the risk of falls. ONGOING- standing at home, but not ambulating at this time. Patient Goals: Remember how to use my legs and strengthen them up. To walk again, or at least work toward it NEW GOALS: Pt will improve Planned Interventions, Frequency, and Duration: 2x/week, 6 weeks Total Number of Visits Planned: 10 Patient to be seen for PLAN FOR NEXT VISIT: Gait with Bioness, trial loftstrands, Thigh cuff to hamstrings- tall kneeling SUBJECTIVE: . I feel fine. Legs feel a little jelly. Pain: Pain Pain Level: 3 Pain Location: Back PROMIS Scales Higher is Better 08/17/2021 09/12/2021 10/20/2021 Phys Func - Score - 36 (moderate dysfunction) 38 (moderate dysfunction) Phys Func - Percentile - 8 % 12 % Social Roles - Score 39 (moderate dysfunction) - 35 (moderate dysfunction) Social Role - Percentile 14 % - 7 % GH Physical - Score - - - GH Physical - Percentile - - - GH Mental - Score - - - GH Mental - Percentile - - - Self-Eff Symptom - Score 42 (Average) - 48 (Average) Self-Eff Symptom - Percentile 21 % - 42 % T-scores: mean of general population = 50. 5 points is clinically meaningfully difference Percentiles provide an indication of how the patient's score ranks in relation to the general population. Higher percentile rankings indicate better function/quality of life. 50th percentile is the average of the general population and indicates half of respondents had a worse score. Lower is Better 08/15/2021 09/12/2021 10/20/2021 Fatigue - Score 53 (within normal limits) 62 (moderate) 57 (mild) Fatigue - Percentile 38 % 12 % 24 % T-scores: mean of general population = 50. 5 points is clinically meaningfully difference Percentiles provide an indication of how the patient's score ranks in relation to the general population. Higher percentile rankings indicate better function/quality of life. 50th percentile is the average of the general population and indicates half of respondents had a worse score. OBJECTIVE MEASURES WITH LEVEL OF FUNCTION: LE Strength R Hip Extension: 2/5 R Hip Flexion (L2): 3/5 R Hip ABduction: 3/5 R Knee Extension (L3): 4-/5 R Knee Flexion: 4+/5 R Ankle Dorsiflexion (L4): 4+/5 R Ankle Plantar Flexion: 3+/5 L Hip Extension: 2-/5 L Hip Flexion (L2): 2/5 L Hip ABduction: 3-/5 L Knee Extension (L3): 3/5 L Knee Flexion: 3-/5 L Ankle Dorsiflexion (L4): 3+/5 Gait Gait: Supervision (w/c follow for safety.) Gait Distance (feet): 120 Gait Device: Wheeled Walker Gait Deviations: General Deviations General Deviations/Observations: Bree decreased;Difficulty changing direction/turning;Flexed trunk posture;Non-functional gait speed;UE weight bearing on assistive device excessive Gait Observation: Patient able to complete 60 ft of ambulation with no use of Bioness in 1:10 seconds. Second trial, patient able to completed 60 ft ambulation with dual upper quad cuff and lower quad cuff Bioness in 56.53 seconds. Balance Static Standing Balance Comments: Unsupported standing at FWW: with no Bioness: 1.75 seconds. With dual upper and lower bioness cuff: 14.57 Functional Performance Test Results Assistive Device: Wheeled Walker (With and without Bioiness - see details.) 10 Meter Walk Test Trial 1 (seconds): 23.44 10 Meter Walk Test Average (m/sec): 0.26 10 Meter Walk Test Fast Gait Trial 1 (seconds): 19.84 (w/ bioness to bilateral quad and LE) 10 Meter Walk Test Fast Gait Average (m/sec): 0.3 TREATMENT: Neuromuscular Re-Education: 1: Bioness set up- upper and lower cuffs on tablet 2 (Patient completed self set-up with very little cues for completion) 2: PN completed - see objective for details Skilled Intervention: Skilled judgment used to assess appropriate program for balance and coordination activity. Insured patient safety with use of gait belt and w/c follow. Patient education as noted. Billing Neuromuscular Re-Education Treatment Minutes: 50 Total Treatment Time Minutes (timed/untimed): 60 Conrad Dodd PT documented in this encounterAden[facility]05-18-[facility] Miscellaneous Notes* Telephone Encounter - Gordo Rodriguez - 11/02/2021 9:00 AM EDT Pt is scheduled for their [facility] US on 12/16 at [facility]. * Telephone Encounter - Gordo Rodriguez - 10/31/2021 1:39 PM EDT Called patient on 10/31 at 1:39 to schedule their MSK US exam. No answer, VM is full. * Telephone Encounter - Admin Assist Joleen Felix - 10/31/2021 11:56 AM EDT Patient called the MSK US Department back on Sunday10/31/21: 11:35. Please give this patient a callback to ensure that they receive an appointment. * Telephone Encounter - Gordo Rodriguez - 10/31/2021 11:31 AM EDT Called patient on 10/31 at 11:31 to schedule their MSK US exam. No answer, VM is full, 2nd attempt. * Telephone Encounter - Admin Natalie Felix - 10/31/2021 10:50 AM EDT Patient called the MSK US Department back on Sunday10/31/21: 10:38. Please give this patient a callback to ensure that they receive an appointment. * Telephone Encounter - Gordo Rodriguez - 10/25/2021 9:32 AM EDT Called patient on 10/25 at 9:32 to schedule their MSK US exam. No answer, left VM, 1st attempt. * Telephone Encounter - Admin Natalie Joleen Felix - 10/25/2021 9:29 AM EDT Visit Type: ANY MSKx2 Visit Length: 90, 100 OR 120 MINUTES Order Name/Protocol: US SHOULDER RT+LT AND US ELBOW LT; LATERAL Preferred Provider: N/A Comment: Please ask if the patient has ever had any prior surgery to their shoulders and LT elbow. If so, upgrade the visit type to an MSK1x2 and notate the surgical hx in the Appointment Note. Location: Depending on the surgical hx, this patient can have this exam performed at any of our three locations. Slot held: N/A documented in this encounterAdena [facility]05-17-[facility]22 History of Present illness Narrative* Annette Ramsey, PT - 11/01/2021 9:07 AM EDT Episode Visit Count: 49 Therapist That Will Oversee The Plan Of Care: Jonathan Monroy Start of Care Date: 07/14/20 Onset Date: 11/07/12 Plan of Care Certification Date: 09/15/21 Next Certification Due Date: 12/14/21 REHABILITATION AND SPORTS THERAPY PHYSICAL THERAPY TREATMENT NOTE ASSESSMENT: Mateus Manzano tolerated the session with no issues. He demonstrated difficulty with postural endurance and improvements in neutral hip position and control with use of FES Bioness in tall kneeling this session. The patient will continue to benefit from ongoing skilled physical therapy to progress toward set goals. 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 Had a really good appointment with [facility] last week. Been working with [employer], needs to send insurance card to them for [employer] coverage. Pain: Pain Pain Level: 3 Pain Location: Back OBJECTIVE MEASURES WITH LEVEL OF FUNCTION: TREATMENT: Neuromuscular Re-Education: 1: Bioness set up for bilat HS cuffs- tablet 2 2: -Trial of qudruped extn- unable with stim 3: -tall kneeling with 65 cm physioball- several bouts with emphasis on hip neutral extension 4: -tall kneeling with attempts at static positioning without UE support 5: -Prone HS curls with static holds - to performance fatigue Skilled Intervention: Skilled judgment used to assess appropriate program for balance and coordination activity. Patient education as noted. Billing Neuromuscular Re-Education Treatment Minutes: 70 Total Treatment Time Minutes (timed/untimed): 75 Annette Ramsey PT documented in this encounterAdena [facility]05-10-2022 History of Present illness Narrative* Conrad Dodd, PT - 10/25/2021 8:53 AM EDT Episode Visit Count: 48 Therapist That Will Oversee The Plan Of Care: Jonathan Monroy Start of Care Date: 07/14/20 Onset Date: 11/07/12 Plan of Care Certification Date: 09/15/21 Next Certification Due Date: 12/14/21 REHABILITATION AND SPORTS THERAPY PHYSICAL THERAPY TREATMENT NOTE ASSESSMENT: Mateus Manzano tolerated the session with decreased endurance and fatigue. He demonstrated improvements in gait endurance and distance with FWW and overall quality with Bioness. The patient will continue to benefit from ongoing skilled physical therapy to progress toward set goals. PLAN FOR NEXT VISIT: Gait with Bioness, trial loftstrands, Thigh cuff to hamstrings- tall kneeling SUBJECTIVE: Doing ok. Last session my tone was crazy bad, the next day I was completely back to my normal, it was a fluke day. Feel ok today. Pain: Pain Pain Level: 0 OBJECTIVE MEASURES WITH LEVEL OF FUNCTION: SBA-CGA for safety with close w/c follow. TREATMENT: Neuromuscular Re-Education: 1: Bioness set up- upper and lower cuffs on tablet 2 2: -parameters adjusted throughout trials. 3: STS from mat table 20 on and 20 off - multiple bouts to fatigue 4: Ambulation around therapy gym with FWW - SBA-CGA w/c follow for safety as follows: 5: -65 ft x1 with good knee ext noted and good sequencing with minimal cues. 6: -50 ft x1 - increased crouch gait noted with fatigue and heavy reliance on UE. 7: STS post ambulation to faitgue - intetmittent UE assist. Trials with no UE support to fatigue. 8: Occasional standing without bioness stimulation to fatigue. Skilled Intervention: Skilled judgment used to assess appropriate program for balance and coordination activity. Insured patient safety with use of gait belt. Patient education as noted. Billing Neuromuscular Re-Education Treatment Minutes: 60 Total Treatment Time Minutes (timed/untimed): 70 Conrad Dodd PT documented in this encounterAdena [facility]05-05-2022 History of Present illness Narrative* Daysi Antonio PT - 10/20/2021 9:29 AM EDT Episode Visit Count: 47 Therapist That Will Oversee The Plan Of Care: Jonathan Monroy Start of Care Date: 07/14/20 Onset Date: 11/07/12 Plan of Care Certification Date: 09/15/21 Next Certification Due Date: 12/14/21 REHABILITATION AND SPORTS THERAPY PHYSICAL THERAPY TREATMENT NOTE ASSESSMENT: Mateus Manzano tolerated the session with decreased activity tolerance due to increasedbilat LE clonus and fatigue. He demonstrated difficulty with transitional movements and ambulation due to bilat LE fatigue with limited standing/walking distances. Education regarding recent increasein clonus and encouraged urine screen for possible UTI? The patient will continue to benefit from ongoing skilled physical therapy to progress toward set goals. PLAN FOR NEXT VISIT: con't trial Bike FES for neuro priming then transition to ambulation as tolerated, Bionness con't, progress UE transitions to lofstrands SUBJECTIVE: Patient Reason for Visit: My legs are really jumpy today. I'm do for botox injections. This is just a bad day. Pain: Pain Pain Level: 0 Pain Location: Back Post Treatment Pain Post Treatment Pain Level: No Change OBJECTIVE MEASURES WITH LEVEL OF FUNCTION: Mobility Supine To Sit: Independent Sit to Supine: Independent Sit To Stand: Supervision (with FWW) Stand To Sit: Supervision (uncontrolled with fatigue) Gait Gait Observation: heavy reliance on UEs with FWW, bilat LE clonus throughout, R>L TREATMENT: Neuromuscular Re-Education: 1: Bioness set up- upper and lower cuffs on tablet 2 2: -parameters adjusted throughout trials. 3: Recumbent bike without FES- unable to control clonus, then with FES with some improved control intermittently at L8 x 5 minutes 4: ambulation with Bioness 18 feet x2 with CGA with FWW, w/c follow with difficulty due to bilat clonus in LEs 5: sit to stands at low surface EOM: without FES then with FES with improved control x 5 reps with 30 sec trials adjusting settings throughout for increased quad stim bilaterally 6: Fatigued by end of session 7: mat based self stretches for HS/gastrocs/hip flexors - reviewed HEP stretching program 8: Paperwork reviewed for Bionness home unit with patient and discussion of insurance coverage process Skilled Intervention: Skilled judgment used to assess appropriate program for balance and coordination activity. Education in proprioceptive/kinesthetic awareness during sitting, standing and dynamic activities. Education and demonstration for posture and positioning for tone management. Insured patient safety with use of gait belt Patient education as noted. Billing Neuromuscular Re-Education Treatment Minutes: 60 Total Treatment Time Minutes (timed/untimed): 60 Daysi Antonio PT documented in this encounterAdena [facility]05-03-2022 History of Present illness Narrative* Conrad Dodd PT - 10/18/2021 8:08 AM EDT Episode Visit Count: 46 Therapist That Will Oversee The Plan Of Care: Jonathan Monroy Start of Care Date: 07/14/20 Onset Date: 11/07/12 Plan of Care Certification Date: 09/15/21 Next Certification Due Date: 12/14/21 REHABILITATION AND SPORTS THERAPY PHYSICAL THERAPY TREATMENT NOTE ASSESSMENT: Mateus Manzano tolerated the session with decreased endurance and fatigue. He demonstrated improvements in consistent motor engagement throughout recumbent bike trails and able to complete bike trial without NMES unit. The patient will continue to benefit from ongoing skilled physical therapy to progress toward set goals. PLAN FOR NEXT VISIT: Gait with Bioness, trial loftstrands, Thigh cuff to hamstrings- tall kneeling SUBJECTIVE: My back has been hurting. Pain: Pain Pain Level: 0 OBJECTIVE MEASURES WITH LEVEL OF FUNCTION: TREATMENT: Neuromuscular Re-Education: 1: Bioness set up- upper and lower cuffs on tablet 2 2: -parameters adjusted throughout trials. 3: STS from mat table 20 on and 20 off - multiple bouts to fatigue 4: Standing trials w/o UE support - quick fatigue noted. Multiple trials. 5: Recumbent bike on bike FES mode; Mod I transfer w/c <> bike. Improved fluidity noted throughout cycle. multiple trials to fatigue 6: Trial on recumbent bike without bioness unit - able to complete to fatigue with reciprocal motorrecruitment - good carryover noted. Skilled Intervention: Skilled judgment used to assess appropriate program for balance and coordination activity. Insured patient safety with use of gait belt. Patient education as noted. Billing Neuromuscular Re-Education Treatment Minutes: 55 Total Treatment Time Minutes (timed/untimed): 60 Conrad Dodd PT documented in this encounterAdena [facility]05-02-2022 History of Present illness Narrative* Azul Logan APRN.CNP - 10/17/2021 4:29 PM EDT Cancelled documented in this encounterAdena [facility]04-19-2022 History of Present illness Narrative* Annette Ramsey, PT - 10/04/2021 8:05 AM EDT Episode Visit Count: 43 Therapist That Will Oversee The Plan Of Care: Jonathan Monroy Start of Care Date: 07/14/20 Onset Date: 11/07/12 Plan of Care Certification Date: 09/15/21 Next Certification Due Date: 12/14/21 REHABILITATION AND SPORTS THERAPY PHYSICAL THERAPY TREATMENT NOTE ASSESSMENT: Mateus Manzano tolerated the session with fatigue. He demonstrated difficulty with elevated spasticity this session, limited gait distance and progression to use of loftstrands. The patient will continue to benefit from ongoing skilled physical therapy to progress toward set goals. PLAN FOR NEXT VISIT: Gait with Bioness, trial loftstrands SUBJECTIVE: Doing fine with new pump. Back feels like crap. Was in [place] for a week, drove all the way there. Pain: Pain Pain Level: 4 Pain Location: Back OBJECTIVE MEASURES WITH LEVEL OF FUNCTION: Overall supervision during gait with wc follow TREATMENT: Neuromuscular Re-Education: 1: Bioness set up- upper and lower cuffs on tablet 1 2: Gait training with wh walker with NMES unit: 3: - bouts with walker, 50', 20', 15' with supervision and wc follow- limited by tone/spasticitytoday Skilled Intervention: Skilled judgment used to assess appropriate program for balance and coordination activity. Insured patient safety with use of gait belt and wc follow Billing Neuromuscular Re-Education Treatment Minutes: 40 Total Treatment Time Minutes (timed/untimed): 40 Annette Ramsey PT documented in this encounterAdena [facility]04-11-2022 Miscellaneous Notes* Telephone Encounter - Juliocesar Arreguin Ma - 09/26/2021 7:53 AM EDT Pharmacy called requesting the following refill. Pending Prescriptions Disp Refills SILDENAFIL (PULMONARY HYPERTENSION) 20 MG TABLET 30 tablet 5 Sig: TAKE 1 TABLET BY MOUTH DIRECTED (may take up to 5 (FIVE) TABLETS 1 (ONE) hour prior to sexual activity) DOUGIE: Yes Patient last appointment: Visit date not found Patient Phone numbers: [phone] (home) Request is for script(s) to be escript to pharmacy. Juliocesar Arreguin Ma documented in this encounterAdena [facility] Center04-10-2022 History of Present illness Narrative* 36 year old male c/o 4/10 generalized pain, mostly back pain * Mr. Flood is a 36-year-old gentleman who was referred to us by Dr. Marquez from comprehensive pain management. 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 The nerve damage limits his mobility as he is only able to ambulate about 100 steps with the assistance of a walker and is mostly wheelchair-bound for any long distance. He currently has a baclofen intrathecal pump that provides about 700 mcg of baclofen daily to treat his spasticity in his lower extremities.He is also on MS Contin 15 mg twice daily, Lyrica 150 mg twice daily, baclofen 10 mg twice daily orally, tizanidine 4 mg twice daily, Xarelto, and other medications. These medications are all managedby his pain management physician, Dr. Marquez. Patient states he was referred to us in order to discuss alternative therapies such as ketamine therapy. Patient states he experiences the majority of his pain in his low back area but also experiences a lot of muscle spasms which are mostly kept at bay now with his baclofen doses. He states he experiences pain symptoms daily and it takes a significant toll on his life. He is present today with his who helps provide some of the history. He denies any recent changes of his symptoms. He states his symptoms are decently well controlled at its current level. -[facility] [id number] Work Phone: 1(644) 671-353104-10-2022 History of Present illness Narrative* 36 year old male c/o 09/25 generalized pain, mostly back pain * Mr. Flood is a 36-year-old gentleman who was referred to us by Dr. Marquez from comprehensive pain management. 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 The nerve damage limits his mobility as he is only able to ambulate about 100 steps with the assistance of a walker and is mostly wheelchair-bound for any long distance. He currently has a baclofen intrathecal pump that provides about 700 mcg of baclofen daily to treat his spasticity in his lower extremities.He is also on MS Contin 15 mg twice daily, Lyrica 150 mg twice daily, baclofen 10 mg twice daily orally, tizanidine 4 mg twice daily, Xarelto, and other medications. These medications are all managedby his pain management physician, Dr. Marquez. Patient states he was referred to us in order to discuss alternative therapies such as ketamine therapy. Patient states he experiences the majority of his pain in his low back area but also experiences a lot of muscle spasms which are mostly kept at bay now with his baclofen doses. He states he experiences pain symptoms daily and it takes a significant toll on his life. He is present today with his who helps provide some of the history. He denies any recent changes of his symptoms. He states his symptoms are decently well controlled at its current level. -[facility] [id number] Work Phone: [phone]) 255-868804-09-2022 Instructions* Patient Instructions* Sarah Tang APRN.TELEVISION DIRECTOR - 09/24/2021 11:12 AM EDT BLADDER INFECTION OVERVIEW Bladder infections are one of the most common infections, causing symptoms of burning with urination and needing to urinate frequently. A bladder infection is a type of urinary tract infection (UTI).Bladder infections are more common is women than men. Most women have an uncomplicated bladder infection that is easily treated with a short course of antibiotics. In men, bladder infections may alsoaffect the prostate gland, and a longer course of treatment may be needed. BLADDER INFECTION CAUSES The urinary tract includes the kidneys (which filter urine), ureters (the tube that carries urine from the kidneys to the bladder), the bladder (which stores urine), and urethra (the tube that carries urine out of the bladder). Bacteria do not normally live in these areas. However, bacteria normally live close to the urethra in women and men who are not circumcised. Bladder infections occur when bacteria travel up the urethra into the bladder. Factors that increase the risk of developing a bladder infection include: Vaginal sex Use of spermicides History of past bladder infections Diabetes In men, not being circumcised or having anal sex increase the risk of bladder infections. BLADDER INFECTION SYMPTOMS The typical symptoms of a bladder infection include: Pain or burning when urinating Frequent need to urinate Urgent need to urinate Blood in the urine Fever, back pain, nausea, or vomiting are not common symptoms of a bladder infection, but can occurin people with a kidney infection (pyelonephritis). If you have these symptoms, you should call your doctor or nurse immediately. Is it a bladder infection or something else? Burning with urination can also occur in people with vaginitis (eg, yeast infection) or urethritis (inflammation of the urethra). For this reason, it is important to call your healthcare provider before assuming you have a bladder infection. BLADDER INFECTION DIAGNOSIS Simple bladder infections are usually diagnosed based upon your symptoms alone. However, most patients, especially those who have bladder infection symptoms for the first time, should see a healthcare provider for urine testing. Urine culture A urine culture is a test that uses a sample of urine to try and grow bacteria in a laboratory. It usually requires about 48 hours to get results. However, a urine culture is not always required to diagnose a bladder infection. Urine culture is often recommended if: You have never had a bladder infection before You have symptoms that are not typical for bladder infection You have had resistant bladder infections before You have frequent bladder infections You do not begin to feel better within 24 to 48 hours after starting antibiotics You are BLADDER INFECTION TREATMENT Bladder infection In young, healthy adolescents and adults with a bladder infection, the usual treatment includes a three to seven day course of antibiotics. The typical drugs chosen are: trimethoprim-sulfamethoxazole (Bactrim ), nitrofurantoin (Macrobid ), ciprofloxacin (Cipro ) or levofloxacin (Levaquin ). In men, the infection may involve your prostate gland and treatment is usually given for at least 7days. Your symptoms should begin to resolve within one day after starting treatment. It is important to take the full course of antibiotics to completely eliminate the infection. If your symptoms persist for more than two or three days after starting treatment, call your healthcare provider. If needed, you can take a prescription medication that numbs the bladder and urethra (phenazopyridine [Pyridium ]) to reduce the burning pain of some UTIs. A similar medication is available without aprescription (eg, Uristat). Both medications change the color of the urine (usually blue or orange)and can interfere with laboratory testing. You should not take these medications for more than 48 hours due to the risk of side effects. These medications do not treat the infection and must be takenalong with an antibiotic. Some providers recommend drinking more fluids while treating bladder infections to help flush bacteria from the bladder. Others believe that drinking more fluids may dilute the antibiotic in the bladder and make the medication less effective. No studies have been performed to address this issue. There are also no good studies on the effectiveness of cranberry juice for treating a bladder infection; we do not recommend using cranberry juice to treat bladder infections. Follow-up care Follow-up testing is not needed in healthy, young men or women with a bladder infection if symptoms resolve. women are usually asked to have a repeat urine culture one to two weeks after treatment has ended to make sure the bacteria are no longer in the urine. RECURRENT BLADDER INFECTIONS Bladder infections versus other causes Some adults, especially women, develop bladder infections frequently. In this case, it is important to confirm that your symptoms (eg, pain or burning, frequency, and urgency) are caused by a bladder infection. Symptoms are usually similar from one infection to another. The best way to confirm an infection is to have a urine culture. If your urine culture is negative for infection, other causes of pain, burning, and frequency should be investigated. There is no reason to take antibiotics if your urine culture is negative. Need for further testing If you continue to develop bladder infections, you may require further testing. If you continue to notice blood in your urine after your bladder infection has cleared, you should have further testing. Preventing recurrent UTIs Women with recurrent urinary tract infections may be advised to take steps to prevent bladder infections, including one or more of the following: Changes in control Women who develop frequent bladder infections and use spermicides, particularly those who also use a diaphragm, may be encouraged to use an alternate method of control. Cranberry products Taking cranberry juice or cranberry tablets has been promoted as one way to helpprevent frequent bladder infections. However, this has not been proven. Drinking more fluid and urinating after intercourse Although studies have not proven that drinking more fluids or urinating soon after intercourse can prevent infection, some healthcare providers recommend these measures since they are not harmful. Drinking more fluid may help to wash out bacteria that enter the bladder. Postmenopausal women Postmenopausal women who develop recurrent bladder infections may benefit fromusing vaginal estrogen. Vaginal estrogen is available in a flexible ring that is worn in the vaginafor three months (eg, Estring ), a small tablet (Vagifem ), or a cream (eg, Premarin or Estrace ). Vaginal estrogen is discussed in more detail in a separate topic review. Antibiotics A preventive antibiotic treatment may be recommended if you repeatedly develop bladder infections and have not responded to other preventive measures. Antibiotics are highly effective in preventing recurrent bladder infections and can be taken in several different ways. Preventive antibiotic You can take a low dose of an antibiotic once per day or three times per weekfor six months to several years. Antibiotics following intercourse In women who develop urinary tract infections after sex, taking asingle low dose antibiotic after intercourse can help to prevent bladder infections. Self-treatment A plan to begin antibiotics at the first sign of a bladder infection may be recommended in some situations. Before starting this regimen, it is important that you have had testing (urine cultures) to confirm that your symptoms are caused by a bladder infection; some people have symptoms of a bladder infection but do not actually have an infection. documented in this encounterA[facility] History of Present illness Narrative* Sarah Tang APRN.TELEVISION DIRECTOR - 09/24/2021 11:07 AM EDT CC: Patient presents with: UTI: frequency urination, cloudy, foul smelling x2 weeks Cough: x1 month HPI Mateus Manzano is a 36 year old male who presents with complaint of possible UTI. These symptoms have been present for 14 days. Associated symptoms: frequency and foul smelling urine Denies: backpain, fever, chills and sweats Treatments: Was on bactrim 3 weeks ago. The ROS was otherwise negative. PMH, Medications, labs, allergies, and recent past visits with PCP were reviewed and updated as able. PHYSICAL EXAM: BP 138/80 Pulse 68 Temp 36.7 C (98 F) SpO2 94% General: Well appearing and alert CV: Regular rate and rhythm without obvious murmur Lungs: minimal wheezes throughout Back: straight and symmetric Abdomen: soft, nontender, nondistended PAST MEDICAL HISTORY Diagnosis Date Asthma 08/05/2021 Clotting disorder (HCC) HUGH-1 DVT (deep venous thrombosis) ([facility]) 2012 ED (erectile dysfunction) Factor 5 Leiden mutation, heterozygous ([facility]) History of spinal cord injury 03/03/2015 Lower urinary tract infectious disease Methylenetetrahydrofolate reductase (MTHFR) gene mutation MRSA (methicillin resistant Staphylococcus aureus) 10/2012 spine Neurogenic bladder self straight catheterization KARAN (obstructive sleep apnea) pt never got a cpap; pt unsure if he needed one KARAN (obstructive sleep apnea) 08/05/2021 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 Recurrent UTI Sepsis ([facility]) 02/20/2021 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[facility]) PAST SURGICAL HISTORY Procedure Laterality Date IMPLTJ/RPLCMT ITHCL/EDRL DRUG NFS PRGRBL PUMP 03/02/2015 SynchroMed II, 40 ml pump with catheter tip at T9 - Informed consent sigend on 03/03/15 (paper form) IMPLTJ/RPLCMT ITHCL/EDRL DRUG NFS PRGRBL PUMP 10/13/2016 Revision of ITB catheter due to malfunction PAST SURGICAL HISTORY OF 11/09/2012 laminectomy T-4-T-12 PAST SURGICAL HISTORY OF 2002 ORIF with pins right hand PAST SURGICAL HISTORY OF 2013 filter placement for DVT PAST SURGICAL HISTORY OF percutaneous vascular procedure PAST SURGICAL HISTORY OF neck surgery REVISE MEDIAN N/CARPAL TUNNEL SURG Bilateral 2020 ALLERGIES Fvqpbmsecxfq-[id number]-[id number], Zosyn [Piperacillin-Tazobactam], Hydrocodone-Acetaminophen, and Codeine MEDICATIONS azithromycin (ZITHROMAX) 250 mg tablet Take 2 tablets by mouth once daily for 1 day, THEN 1 tablet once daily for 4 days. cephALEXin (KEFLEX) 500 mg capsule Take 1 capsule by mouth twice daily for 7 days. predniSONE (DELTASONE) 10 mg tablet Take 4 tabs daily for 3 days, then 2 tabs daily for 3 days, then 1 tab daily for 3 days with food. cabergoline (DOSTINEX) 0.5 mg tablet Take 1 tablet by mouth every Sunday and . clomiPHENe (SEROPHENE) 50 mg tablet Take 1 tablet by mouth every other day. (take on ODD days) Tadalafil (CIALIS) 5 mg tablet Take 1 pill daily clindamycin (CLEOCIN) 300 mg capsule Take 1 capsule by mouth three times daily. acetaminophen (TYLENOL EXTRA STRENGTH) 500 mg tablet Take 2 tablets by mouth every 6 hours as needed for pain. albuterol HFA (PROVENTIL HFA, VENTOLIN HFA) 90 mcg/actuation inhaler Inhale 2 Puffs as instructed every 4 hours as needed for wheezing/shortness of breath. baclofen (LIORESAL) 10 mg tablet Take 10 mg by mouth twice daily. baclofen, LIORESAL, (LIORESAL) 2,000 mcg/mL injection Medtronic ITB refill Kit #[id number], Lioresal 2000mcg/ml, 40 ml pump to be refilled as directed. docusate sodium (COLACE) 100 mg capsule Take 100 mg by mouth twice daily. morphine SR (MS CONTIN, ORAMORPH SR) 15 mg 12 hr tablet Take 15 mg by mouth twice daily. Pregabalin (LYRICA) 200 mg capsule Take 200 mg by mouth twice daily. sildenafil (REVATIO) 20 mg tablet Take 20 mg by mouth as needed (may take up to 5 tablets one hour prior to sexual activity). tiZANidine (ZANAFLEX) 2 mg tablet Take 2 mg by mouth twice daily. rivaroxaban (XARELTO) 20 mg tablet Take 20 mg by mouth daily at bedtime. lidocaine (XYLOCAINE) 5 % ointment Apply to affected area as needed. FAMILY HISTORY Problem Relation Age of Onset Diabetes Father other (factor v leiden) Father homozigus carries mthfr other (factor v leiden) Mother homozigus carries pie 1 Cancer Paternal Grandfather Heart disease Paternal Grandfather Cancer Paternal Grandmother leukemia Heart Paternal Grandmother Anesthesia Problems No Family History Social History Tobacco Use Smoking status: Current Every Day Smoker Packs/day: 1.00 Years: 18.00 Pack years: 18.00 Types: Cigarettes Smokeless tobacco: Former User Types: Chew Quit date: 01/19/2005 Vaping Use Vaping Use: Never used Substance Use Topics Alcohol use: Yes Comment: rarely Drug use: No ASSESSMENT/PLAN: 1. Urination frequency - ICD9: 788.41, ICD10: R35.0 (primary diagnosis) acute - Send urine for culture - Begin treatment with keflex for 7 days - Patient education for prevention given - UA DIP, URINE (POC) - URINE CULTURE 2. Cough - ICD9: 786.2, ICD10: R05.9 Prescription instructions reviewed with patient as applicable. zpak Potential red flag symptoms discussed with the patient. Reviewed appropriate action plan to take if red flag symptoms occur. Patient agreeable to treatment plan. Sarah Tang APRN.EUNICE documented in this encounterAden[facility]04-04-[facility]22 Instructions* Patient Instructions* Ju Gustafson DO - 09/19/2021 11:08 AM EDT Back: Camilo Wild and Bridger Mireles. Shoulders: ultrasound Elbow: ultrasound TENJET POST-PROCEDURE INSTRUCTIONS ELBOW 1. WOUND CARE - Keep bandages and procedure area clean and dry for 5 days - Avoid submerging area in water for 5 days - You did not have any sutures or stitches placed. Steri-strips were placed over the wound. These will fall off in the shower after about one week. If they have not fallen off after the first 9 days,you can remove them yourself. - Please contact our office if: - The area become red or hot to touch - You have a fever of 100 or more - You have increased pain or swelling - You have drainage from the treatment site 2. POST-PROCEDURE PAIN CONTROL - You may apply ice for 20 minutes as needed for discomfort - You may take over the counter pain medication or antiinflammatory medication as directed, if prescribed by your physician and if you have had no problems taking these in the past. 3. WEEK BY WEEK SCHEDULE Week 1 Wrist brace for the first 5 days, gentle range of motion, no lifting, pushing, pulling >5lbs Week 2 Continued range of motion, no lifting, pushing, pulling >10lbs Week 3-5 Begin post-TenJet physical therapy protocol, rice bucket therapy at home. Week 6 Follow-up in the office with Dr. Gustafson Week 7+ Continue physical therapy, expectation of improvement is 3 months documented in this encounterAden[facility]04-04-2022 History of Present illness Narrative* Ju Gustafson DO - 09/19/2021 10:44 AM EDT Associated Order(s): Additional Injections: L elbow joint Post-Procedure Diagnose(s): Lateral epicondylitis of left elbow Images from the original note were not included. [facility] DEPARTMENT OF ORTHOPAEDIC SURGERY OFFICE VISIT DOCUMENTATION NOTE ASSESSMENT AND PLAN DIAGNOSIS: (M77.12) Lateral epicondylitis of left elbow (primary encounter diagnosis) (M25.511, G89.29, M25.512) Chronic pain of both shoulders Today, in detail, through a thorough evaluation, we discussed possible etiologies of pain and our plans for further diagnostic and therapeutic interventions. We discussed strategies for decreasing pain and improving strength, stability and motion. Patient's questions were answered in detailed. Patient verbalizes understanding and agrees with the treatment plan as discussed. 03/02/21 - 6 months of relief from CET pain. Ultrasound guided left elbow common extensor tendon peritendinous corticosteroid injection. Back: Camilo Wild and Bridger Mireles. Shoulders: ultrasound Elbow: ultrasound MSK-US with appropriate tendinopathy treatment protocol to follow. USG CSI today - In addition to the comprehensive evaluation as outlined above and as a separate element to the visit today, we have made the determination to proceed with an injection to aid in the treatment of the patient's condition. We discussed risks, benefits, alternatives and expected outcomes of this injection in detail and the patient agreed to proceed. The procedure was performed as detailed below. Additional Injections: L elbow joint for lateral epicondylitis Informed Consent Consent Obtained: Written [place] Protocol A moment to CARE was completed. SIGN IN Personnel directly involved with the procedure wore the appropriate PPE. Patient/Surrogate Stated/Verified: Patient name, Date of , Relevant allergies and Intended procedure TIME OUT Intended patient and procedure match the source document(s). Consent documented and matches the intended procedure. Relevant labs, photos, and/or imaging studies have been reviewed. No relevant labs, photos, and/or imaging studies were applicable for review. Correct side/site marked and visible. Medications required for procedure verified. 09/19/2021 11:13 AM The procedure site was prepped in the usual sterile fashion. Details:Musculoskeletal ultrasound was utilized to successfully localize placement of the injectionneedle at the appropriate site. Ultrasound images demonstrating local vasculature and demonstratinginjection of solution were saved. Medications: 40 mg triamcinolone acetonide 40 mg/mL Anesthetics: 1 mL ropivacaine (PF) 5 mg/mL (0.5 %) Outcome: tolerated well, no immediate complications Post-injection instructions were reviewed with the patient and the patient voiced understanding of these instructions. SIGN OUT Post-procedure follow-up management communicated and Plan of Care Visit completed when applicable Ju Gustafson DO Sports Medicine & Interventional Orthopaedics Department of Orthopaedic Surgery [facility] CHIEF COMPLAINT / REASON FOR VISIT Mateus Manzano is a 36 year old male who presents today for a follow-up evaluation of following complaint: Patient presents with: Left Elbow - Established Patient HISTORY OF PRESENT ILLNESS (HPI) PAIN EVALUATION 09/19/2021 1044 Pain Level: 3 Pain Location: Elbow-Left Description: Aching Duration Amount of Time: 6 Duration Units: Months Frequency: Intermittent Intervention/Comfort measure: Medication Has there been any overall improvement in your condition? Yes, with injection Any new injury, since being seen last? No Review of Systems Constitutional: Any recent fevers? No Gastrointestinal: Any abdominal discomfort? No Integumentary: Any recent skin changes or rashes? No Mateus Manzano is a 36 year old male with the presenting complaint of Established Patient of the Left Elbow. Mateus reports a current pain level of 3 (Elbow-Left). He describes the pain as Aching. The pain is Intermittent, and has lasted for 6 Months. Interventions tried include Medication. He was last seen in orthopaedic clinic for his elbow on 03/02/2021 with Ju Gustafson. Most recent elbow imaging was completed on 03/02/2021 (XR ELBOW SPECIAL VIEWS AP/LAT/OTHER LEFT) . In the past (based on all medication history on file), Mateus has tried the following anti-inflammatory medications (not necessarily for this reason for visit): ketorolac tromethamine, meloxicam, methylprednisolone, naproxen, prednisone, triamcinolone acetonide. Last XR Elbow - Impression Only XR ELBOW SPECIAL VIEWS AP/LAT/OTHER LT Exam End: 03/02/2021 11:28 AM (Final result) Impression: IMPRESSION: No acute abnormality [employer]: [employer] Transcribe Date/Time: Mar 02 2021 1:08P Dictated by : RAZA FORREST MD ... Complete Results PT Visits (up to last 5) Some values may be hidden. Unless noted otherwise, only the newest values recorded on each date aredisplayed. PT Visits 07/06/21 08/17/21 08/22/21 08/23/21 09/15/21 Pain location Back Back Back Back Pain level 6 4 did not rate 2 6 Description Chronic aching Incision Frequency Some values recorded on this date have been omitted. Orthopaedic Injections (up to last 5) Some values may be hidden. Unless noted otherwise, only the newest values recorded on each date aredisplayed. Orthopaedic Injection History 03/02/21 Medication 40 mg triamcinolone acetonide 40 mg/mL Orthopaedic Surgeries No cases to display EXAMINATION Vitals: There were no vitals taken for this visit. Left Elbow Exam Tenderness The patient is experiencing tenderness in the lateral epicondyle. Range of Motion Extension: normal Flexion: normal Pronation: normal Supination: normal Muscle Strength Pronation: 5/5 Supination: 5/5 Tests Varus: negative Valgus: negative Tinel's sign (cubital tunnel): negative Other Erythema: absent Scars: absent Sensation: normal documented in this encounterAdena [facility]03-31-2022 History of Present illness Narrative* Conrad Dodd, PT - 09/15/2021 7:49 AM EDT Episode Visit Count: 42 Therapist That Will Oversee The Plan Of Care: Jonathan Monroy Start of Care Date: 07/14/20 Onset Date: 11/07/12 Plan of Care Certification Date: 09/15/21 Next Certification Due Date: 12/14/21 REHABILITATION AND SPORTS THERAPY PHYSICAL THERAPY PROGRESS REPORT PLAN OF CARE UPDATE: Assessment: Mateus Manzano demonstrates minimal improvement in rising from a chair, standing, walking, physical activities, recreational activities and squatting. He has made little progress towards goals due to recent abdominal surgery for baclofen pump replacement on 08/23/21. Patient continues to present with impairments in ADL's, balance, gait, independence in exercise, overall function and strength that interfere with rising from a chair;standing;walking;walking in the house;walking in the community;physical activities;recreational activities . Current prognosis is Good due to: positive past response to therapy;good support system/ coping skills Fair due to: clinical presentation;chronic nature of impairments . He will benefit from continued skilled therapy services to meet the updated goals for this plan of care as noted below. Goals for Episode of Care: created on 01/27/20 through 03/27/20 Updated 06/01/21 PN 08/17/21 UPDATED 09/15/21 Short Term: Consult general duty nurse as needed for bracing needs for ambulation goals. - In progress. Custodial: Patient will increase strength of bilateral LEs by 1 MMT grade to allow patient to improve gait mechanics/gait pattern. ONGOING (slight progression) Patient will ambulate 150 feet with loftstrand crutch Right with modified independence for community participation with his . (patients goal is to be mariangel to walk into a restaurant with his and walk back out) ONGOING, limited by tone and pain Patient will demonstrate current home exercise program independently. ONGOING Patient demonstrates independent and proper use of assistive device to allow for improved walking quality and safety therefore reducing the risk of falls. ONGOING- standing at home, but not ambulating at this time. Patient Goals: Remember how to use my legs and strengthen them up. To walk again, or at least work toward it NEW GOALS: Pt will improve Planned Interventions, Frequency, and Duration: 2x/week, 6 weeks Total Number of Visits Planned: 12 Patient to be seen for PLAN FOR NEXT VISIT: Gait with Bioness. SUBJECTIVE: . Surgery (pump replacement) went well. I felt like I was up and moving pretty quick. My pain is up there. Low back. I finished an antibiotic for UTI but I just finished it. I am getting ore follow. Functional Limitations: rising from a chair;standing;walking;walking in the house;walking in the community;physical activities;recreational activities Pain: Pain Pain Level: 6 Pain Location: Back PROMIS Scales Higher is Better 08/15/2021 08/17/2021 09/12/2021 Phys Func - Score 38 (moderate dysfunction) - 36 (moderate dysfunction) Phys Func - Percentile 12 % - 8 % Social Roles - Score - 39 (moderate dysfunction) - Social Role - Percentile - 14 % - GH Physical - Score 42.3 (Good) - - GH Physical - Percentile 22 % - - GH Mental - Score 50.8 (Very Good) - - GH Mental - Percentile 53 % - - Self-Eff Symptom - Score - 42 (Average) - Self-Eff Symptom - Percentile - 21 % - T-scores: mean of general population = 50. 5 points is clinically meaningfully difference Percentiles provide an indication of how the patient's score ranks in relation to the general population. Higher percentile rankings indicate better function/quality of life. 50th percentile is the average of the general population and indicates half of respondents had a worse score. Lower is Better 06/13/2021 08/15/2021 09/12/2021 Fatigue - Score 61 (moderate) 53 (within normal limits) 62 (moderate) Fatigue - Percentile 14 % 38 % 12 % T-scores: mean of general population = 50. 5 points is clinically meaningfully difference Percentiles provide an indication of how the patient's score ranks in relation to the general population. Higher percentile rankings indicate better function/quality of life. 50th percentile is the average of the general population and indicates half of respondents had a worse score. OBJECTIVE MEASURES WITH LEVEL OF FUNCTION: LE Strength R Hip Extension: 2/5 R Hip Flexion (L2): 3/5 R Hip ABduction: 3/5 R Knee Extension (L3): 3+/5 R Knee Flexion: 4-/5 R Ankle Dorsiflexion (L4): 4+/5 L Hip Extension: 2-/5 L Hip Flexion (L2): 2-/5 L Hip ABduction: 3-/5 L Knee Extension (L3): 3/5 L Knee Flexion: 3-/5 L Ankle Dorsiflexion (L4): 3+/5 Tone Clonus Comments: sustained bilaterally R Knee Flexor: 1+: Slight increase in tone, manifiested by a catch followed by min resistance throughout remainder (less than 1/2) L Knee Flexor: 1+: Slight increase in tone, manifiested by a catch followed by min resistance throughout remainder (less than 1/2) Mobility Sit To Stand: Supervision (to FWW) Bed To Chair: Independent Gait Gait Observation: NT on this date. Balance Static Standing Balance Comments: <5 seconds standing unsupported at FWW - fatgiued noted. TREATMENT: Neuromuscular Re-Education: 1: Re-Cert/ PN completed - see objective for detail. 3: NMES lower and upper cuff B tablet 1 sit to stands on 15 seconds off 20. - multiple bouts to fatigue. 4: -parameters adjusted throughout trials. 5: STS with Bilat cuffs - 10 sec on 10 sec off - multiple bouts to fatigue. 6: Static balance at FWW without UE support with NMES to bilateral quads - varying fatigue noted ~3-7 second bouts. Skilled Intervention: Skilled judgment used to assess appropriate program for balance and coordination activity. Patient education as noted. Billing Neuromuscular Re-Education Treatment Minutes: 55 Total Treatment Time Minutes (timed and untimed codes) : 60 Conrad Dodd PT documented in this encounterAdena [facility]03-21-2022 History of Present illness Narrative* Mya Coe, RT(R) - 09/05/2021 10:20 AM EDT Radiology Service Progress Note PATIENT NAME: Mateus Manzano DATE OF SERVICE: September 05, 2021 TIME: 10:45 AM PATIENT IDENTITY VERIFICATION COMPLETED USING TWO (2) IDENTIFIERS: Name and Date of confirmedby patient verbally. FALL SCREENING: Has the patient had 2 falls in the last year or 1 fall with injury or currently using an Ambulatory Assistive Device (Walker, Cane, Wheelchair, Crutches, etc.)? Yes, Patient High Riskfor Falls What interventions were put in place to prevent falls during this visit? Increased Observations by Caregivers PATIENT GENDER DATA: Male PATIENT RELEVANT IMPLANT DATA REVIEWED: Yes RADIOLOGY DEPARTMENT: General X-ray: Exam(s) Completed: Chest X-Ray PERIPHERAL IV DATA: Not applicable SIGNED BY: RT Nirmal(R) September 05, 2021 10:45 AM [facility] Past [facility] Narrative* Problem Noted Date Resolved Date Obesity, Class II, BMI 35-39.9 02/25/2021 0 01/07/2022 Last Assessment & Plan: -Body mass index is 35.91 kg/m . Pain in both hands 07/20/2020 03/30/2021 Weakness of both hands 07/20/2020 1 Tendonitis 07/31/2013 06/25/2019 documented as of this encounter (statuses as of 01/13/2022) [facility] of Past illness Narrative* Problem Noted Date Resolved Date Obesity, Class II, BMI 35-39.9 02/25/2021 0 01/07/2022 Last Assessment & Plan: -Body mass index is 35.91 kg/m . Pain in both hands 07/20/2020 03/30/2021 Weakness of both hands 07/20/2020 1 Tendonitis 07/31/2013 06/25/2019 documented as of this encounter (statuses as of 01/13/2022) [facility] of Past illness Narrative* Problem Noted Date Resolved Date Obesity, Class II, BMI 35-39.9 02/25/2021 0 01/07/2022 Last Assessment & Plan: -Body mass index is 35.91 kg/m . Pain in both hands 07/20/2020 03/30/2021 Weakness of both hands 07/20/2020 1 Tendonitis 07/31/2013 06/25/2019 documented as of this encounter (statuses as of 01/25/2022) [facility] History of Past illness Narrative* Problem Noted Date Resolved Date Obesity, Class II, BMI 35-39.9 02/25/2021 0 01/07/2022 Last Assessment & Plan: -Body mass index is 35.91 kg/m . Pain in both hands 07/20/2020 03/30/2021 Weakness of both hands 07/20/2020 1 Tendonitis 07/31/2013 06/25/2019 documented as of this encounter (statuses as of 02/06/2022) [address]10-2021 History of Past illness Narrative* Problem Noted Date Resolved Date Obesity, Class II, BMI 35-39.9 02/25/2021 0 01/07/2022 Last Assessment & Plan: -Body mass index is 35.91 kg/m . Pain in both hands 07/20/2020 03/30/2021 Weakness of both hands 07/20/2020 1 Tendonitis 07/31/2013 06/25/2019 documented as of this encounter (statuses as of 02/09/2022) [facility] of Past illness Narrative* Problem Noted Date Resolved Date Obesity, Class II, BMI 35-39.9 02/25/2021 0 01/07/2022 Last Assessment & Plan: -Body mass index is 35.91 kg/m . Pain in both hands 07/20/2020 03/30/2021 Weakness of both hands 07/20/2020 1 Tendonitis 07/31/2013 06/25/2019 documented as of this encounter (statuses as of 02/10/2022) [facility] of Past illness Narrative* Problem Noted Date Resolved Date Obesity, Class II, BMI 35-39.9 02/25/2021 0 01/07/2022 Last Assessment & Plan: -Body mass index is 35.91 kg/m . Pain in both hands 07/20/2020 03/30/2021 Weakness of both hands 07/20/2020 1 Tendonitis 07/31/2013 06/25/2019 documented as of this encounter (statuses as of 02/14/2022) [facility] Past illness Narrative* Problem Noted Date Resolved Date Obesity, Class II, BMI 35-39.9 02/25/2021 0 01/07/2022 Last Assessment & Plan: -Body mass index is 35.91 kg/m . Pain in both hands 07/20/2020 03/30/2021 Weakness of both hands 07/20/2020 1 Tendonitis 07/31/2013 06/25/2019 documented as of this encounter (statuses as of 02/15/2022) [facility] Past illness Narrative* Problem Noted Date Resolved Date Obesity, Class II, BMI 35-39.9 02/25/2021 0 01/07/2022 Last Assessment & Plan: -Body mass index is 35.91 kg/m . Pain in both hands 07/20/2020 03/30/2021 Weakness of both hands 07/20/2020 1 Tendonitis 07/31/2013 06/25/2019 documented as of this encounter (statuses as of 02/17/2022) [facility] Narrative* Problem Noted Date Resolved Date Obesity, Class II, BMI 35-39.9 02/25/2021 0 01/07/2022 Last Assessment & Plan: -Body mass index is 35.91 kg/m . Pain in both hands 07/20/2020 03/30/2021 Weakness of both hands 07/20/2020 1 Tendonitis 07/31/2013 06/25/2019 documented as of this encounter (statuses as of 02/17/2022) [facility] Narrative* Problem Noted Date Resolved Date Obesity, Class II, BMI 35-39.9 02/25/2021 0 01/07/2022 Last Assessment & Plan: -Body mass index is 35.91 kg/m . Pain in both hands 07/20/2020 03/30/2021 Weakness of both hands 07/20/2020 1 Tendonitis 07/31/2013 06/25/2019 documented as of this encounter (statuses as of 03/02/2022) [address]10-2021 History of Past illness Narrative* Problem Noted Date Resolved Date Obesity, Class II, BMI 35-39.9 02/25/2021 0 01/07/2022 Last Assessment & Plan: -Body mass index is 35.91 kg/m . Pain in both hands 07/20/2020 03/30/2021 Weakness of both hands 07/20/2020 1 Tendonitis 07/31/2013 06/25/2019 documented as of this encounter (statuses as of 03/08/2022) [address]10-2021 History of Past illness Narrative* Problem Noted Date Resolved Date Obesity, Class II, BMI 35-39.9 02/25/2021 0 01/07/2022 Last Assessment & Plan: -Body mass index is 35.91 kg/m . Pain in both hands 07/20/2020 03/30/2021 Weakness of both hands 07/20/2020 1 Tendonitis 07/31/2013 06/25/2019 documented as of this encounter (statuses as of 03/23/2022) [address]10-2021 History of Past illness Narrative* Problem Noted Date Resolved Date Obesity, Class II, BMI 35-39.9 02/25/2021 0 01/07/2022 Last Assessment & Plan: -Body mass index is 35.91 kg/m . Pain in both hands 07/20/2020 03/30/2021 Weakness of both hands 07/20/2020 1 Tendonitis 07/31/2013 06/25/2019 documented as of this encounter (statuses as of 03/27/2022) [address]10-2021 History of Past illness Narrative* Problem Noted Date Resolved Date Obesity, Class II, BMI 35-39.9 02/25/2021 0 01/07/2022 Last Assessment & Plan: -Body mass index is 35.91 kg/m . Pain in both hands 07/20/2020 03/30/2021 Weakness of both hands 07/20/2020 1 Tendonitis 07/31/2013 06/25/2019 documented as of this encounter (statuses as of 03/27/2022) [address]10-2021 History of Past illness Narrative* Problem Noted Date Resolved Date Obesity, Class II, BMI 35-39.9 02/25/2021 0 01/07/2022 Last Assessment & Plan: -Body mass index is 35.91 kg/m . Pain in both hands 07/20/2020 03/30/2021 Weakness of both hands 07/20/2020 1 Tendonitis 07/31/2013 06/25/2019 documented as of this encounter (statuses as of 04/05/2022) [address]10-2021 History of Past illness Narrative* Problem Noted Date Resolved Date Obesity, Class II, BMI 35-39.9 02/25/2021 0 01/07/2022 Last Assessment & Plan: -Body mass index is 35.91 kg/m . Pain in both hands 07/20/2020 03/30/2021 Weakness of both hands 07/20/2020 1 Tendonitis 07/31/2013 06/25/2019 documented as of this encounter (statuses as of 04/06/2022) [address]10-2021 History of Past illness Narrative* Problem Noted Date Resolved Date Obesity, Class II, BMI 35-39.9 02/25/2021 0 01/07/2022 Last Assessment & Plan: -Body mass index is 35.91 kg/m . Pain in both hands 07/20/2020 03/30/2021 Weakness of both hands 07/20/2020 1 Tendonitis 07/31/2013 06/25/2019 documented as of this encounter (statuses as of 04/07/2022) [place] [address] History of Past illness Narrative* Problem Noted Date Resolved Date Obesity, Class II, BMI 35-39.9 02/25/2021 0 01/07/2022 Last Assessment & Plan: -Body mass index is 35.91 kg/m . Pain in both hands 07/20/2020 03/30/2021 Weakness of both hands 07/20/2020 1 Tendonitis 07/31/2013 06/25/2019 documented as of this encounter (statuses as of 04/13/2022) [address]10-2021 History of Past illness Narrative* Problem Noted Date Resolved Date Obesity, Class II, BMI 35-39.9 02/25/2021 0 01/07/2022 Last Assessment & Plan: -Body mass index is 35.91 kg/m . Pain in both hands 07/20/2020 03/30/2021 Weakness of both hands 07/20/2020 1 Tendonitis 07/31/2013 06/25/2019 documented as of this encounter (statuses as of 04/27/2022) [facility] Past illness Narrative* Problem Noted Date Resolved Date Obesity, Class II, BMI 35-39.9 02/25/2021 0 01/07/2022 Last Assessment & Plan: -Body mass index is 35.91 kg/m . Pain in both hands 07/20/2020 03/30/2021 Weakness of both hands 07/20/2020 1 Tendonitis 07/31/2013 06/25/2019 documented as of this encounter (statuses as of 05/08/2022) [address]10-2021 History of Past illness Narrative* Problem Noted Date Resolved Date Obesity, Class II, BMI 35-39.9 02/25/2021 0 01/07/2022 Last Assessment & Plan: -Body mass index is 35.91 kg/m . Pain in both hands 07/20/2020 03/30/2021 Weakness of both hands 07/20/2020 1 Tendonitis 07/31/2013 06/25/2019 documented as of this encounter (statuses as of 06/09/2022) [address]10-2021 History of Past illness Narrative* Problem Noted Date Resolved Date Obesity, Class II, BMI 35-39.9 02/25/2021 0 01/07/2022 Last Assessment & Plan: -Body mass index is 35.91 kg/m . Pain in both hands 07/20/2020 03/30/2021 Weakness of both hands 07/20/2020 1 Tendonitis 07/31/2013 06/25/2019 documented as of this encounter (statuses as of 06/21/2022) [address]10-2021 History of Past illness Narrative* Problem Noted Date Resolved Date Obesity, Class II, BMI 35-39.9 02/25/2021 0 01/07/2022 Last Assessment & Plan: -Body mass index is 35.91 kg/m . Pain in both hands 07/20/2020 03/30/2021 Weakness of both hands 07/20/2020 1 Tendonitis 07/31/2013 06/25/2019 documented as of this encounter (statuses as of 06/21/2022) [facility] Past illness Narrative* Problem Noted Date Resolved Date Obesity, Class II, BMI 35-39.9 02/25/2021 0 01/07/2022 Last Assessment & Plan: -Body mass index is 35.91 kg/m . Pain in both hands 07/20/2020 03/30/2021 Weakness of both hands 07/20/2020 1 Tendonitis 07/31/2013 06/25/2019 documented as of this encounter (statuses as of 06/21/2022) [facility] of Past illness Narrative* Problem Noted Date Resolved Date Obesity, Class II, BMI 35-39.9 02/25/2021 0 01/07/2022 Last Assessment & Plan: -Body mass index is 35.91 kg/m . Pain in both hands 07/20/2020 03/30/2021 Weakness of both hands 07/20/2020 1 Tendonitis 07/31/2013 06/25/2019 documented as of this encounter (statuses as of 06/23/2022) [address]10-2021 History of Past illness Narrative* Problem Noted Date Resolved Date Obesity, Class II, BMI 35-39.9 02/25/2021 0 01/07/2022 Last Assessment & Plan: -Body mass index is 35.91 kg/m . Pain in both hands 07/20/2020 03/30/2021 Weakness of both hands 07/20/2020 1 Tendonitis 07/31/2013 06/25/2019 documented as of this encounter (statuses as of 06/28/2022) [place] [address]10-[address]21 History of Past illness Narrative* Problem Noted Date Resolved Date Obesity, Class II, BMI 35-39.9 02/25/2021 0 01/07/2022 Last Assessment & Plan: -Body mass index is 35.91 kg/m . Pain in both hands 07/20/2020 03/30/2021 Weakness of both hands 07/20/2020 1 Tendonitis 07/31/2013 06/25/2019 documented as of this encounter (statuses as of 07/03/2022) [facility] Narrative* Problem Noted Date Resolved Date Obesity, Class II, BMI 35-39.9 02/25/2021 0 01/07/2022 Last Assessment & Plan: -Body mass index is 35.91 kg/m . Pain in both hands 07/20/2020 03/30/2021 Weakness of both hands 07/20/2020 1 Tendonitis 07/31/2013 06/25/2019 documented as of this encounter (statuses as of 07/04/2022) [facility] of Past illness Narrative* Problem Noted Date Resolved Date Obesity, Class II, BMI 35-39.9 02/25/2021 0 01/07/2022 Last Assessment & Plan: -Body mass index is 35.91 kg/m . Pain in both hands 07/20/2020 03/30/2021 Weakness of both hands 07/20/2020 1 Tendonitis 07/31/2013 06/25/2019 documented as of this encounter (statuses as of 07/05/2022) [address]10-2021 History of Past illness Narrative* Problem Noted Date Resolved Date Obesity, Class II, BMI 35-39.9 02/25/2021 0 01/07/2022 Last Assessment & Plan: -Body mass index is 35.91 kg/m . Pain in both hands 07/20/2020 03/30/2021 Weakness of both hands 07/20/2020 1 Tendonitis 07/31/2013 06/25/2019 documented as of this encounter (statuses as of 07/06/2022) [facility] of Past illness Narrative* Problem Noted Date Resolved Date Obesity, Class II, BMI 35-39.9 02/25/2021 0 01/07/2022 Last Assessment & Plan: -Body mass index is 35.91 kg/m . Pain in both hands 07/20/2020 03/30/2021 Weakness of both hands 07/20/2020 1 Tendonitis 07/31/2013 06/25/2019 documented as of this encounter (statuses as of 07/11/2022) [address]10-2021 History of Past illness Narrative* Problem Noted Date Resolved Date Obesity, Class II, BMI 35-39.9 02/25/2021 0 01/07/2022 Last Assessment & Plan: -Body mass index is 35.91 kg/m . Pain in both hands 07/20/2020 03/30/2021 Weakness of both hands 07/20/2020 1 Tendonitis 07/31/2013 06/25/2019 documented as of this encounter (statuses as of 07/13/2022) [facility] of Past illness Narrative* Problem Noted Date Resolved Date Obesity, Class II, BMI 35-39.9 02/25/2021 0 01/07/2022 Last Assessment & Plan: -Body mass index is 35.91 kg/m . Pain in both hands 07/20/2020 03/30/2021 Weakness of both hands 07/20/2020 1 Tendonitis 07/31/2013 06/25/2019 documented as of this encounter (statuses as of 07/19/2022) [facility] of Past illness Narrative* Problem Noted Date Resolved Date Obesity, Class II, BMI 35-39.9 02/25/2021 0 01/07/2022 Last Assessment & Plan: -Body mass index is 35.91 kg/m . Pain in both hands 07/20/2020 03/30/2021 Weakness of both hands 07/20/2020 1 Tendonitis 07/31/2013 06/25/2019 documented as of this encounter (statuses as of 07/20/2022) [facility] of Past illness Narrative* Problem Noted Date Resolved Date Obesity, Class II, BMI 35-39.9 02/25/2021 0 01/07/2022 Last Assessment & Plan: -Body mass index is 35.91 kg/m . Pain in both hands 07/20/2020 03/30/2021 Weakness of both hands 07/20/2020 1 Tendonitis 07/31/2013 06/25/2019 documented as of this encounter (statuses as of 07/27/2022) [address]10-2021 History of Past illness Narrative* Problem Noted Date Resolved Date Obesity, Class II, BMI 35-39.9 02/25/2021 0 01/07/2022 Last Assessment & Plan: -Body mass index is 35.91 kg/m . Pain in both hands 07/20/2020 03/30/2021 Weakness of both hands 07/20/2020 1 Tendonitis 07/31/2013 06/25/2019 documented as of this encounter (statuses as of 08/09/2022) [address]10-2021 History of Past illness Narrative* Problem Noted Date Resolved Date Obesity, Class II, BMI 35-39.9 02/25/2021 0 01/07/2022 Last Assessment & Plan: -Body mass index is 35.91 kg/m . Pain in both hands 07/20/2020 03/30/2021 Weakness of both hands 07/20/2020 1 Tendonitis 07/31/2013 06/25/2019 documented as of this encounter (statuses as of 08/25/2022) [address]10-2021 History of Past illness Narrative* Problem Noted Date Resolved Date Obesity, Class II, BMI 35-39.9 02/25/2021 0 01/07/2022 Last Assessment & Plan: -Body mass index is 35.91 kg/m . Pain in both hands 07/20/2020 03/30/2021 Weakness of both hands 07/20/2020 1 Tendonitis 07/31/2013 06/25/2019 documented as of this encounter (statuses as of 09/07/2022) [facility] of Past illness Narrative* Problem Noted Date Resolved Date Obesity, Class II, BMI 35-39.9 02/25/2021 0 01/07/2022 Last Assessment & Plan: -Body mass index is 35.91 kg/m . Pain in both hands 07/20/2020 03/30/2021 Weakness of both hands 07/20/2020 1 Tendonitis 07/31/2013 06/25/2019 documented as of this encounter (statuses as of 10/02/2022) [facility] of Past illness Narrative* Problem Noted Date Resolved Date Obesity, Class II, BMI 35-39.9 02/25/2021 0 01/07/2022 Last Assessment & Plan: -Body mass index is 35.91 kg/m . Pain in both hands 07/20/2020 03/30/2021 Weakness of both hands 07/20/2020 1 Tendonitis 07/31/2013 06/25/2019 documented as of this encounter (statuses as of 10/17/2022) [facility] of Past illness Narrative* Problem Noted Date Resolved Date Obesity, Class II, BMI 35-39.9 02/25/2021 0 01/07/2022 Last Assessment & Plan: -Body mass index is 35.91 kg/m . Pain in both hands 07/20/2020 03/30/2021 Weakness of both hands 07/20/2020 1 Tendonitis 07/31/2013 06/25/2019 documented as of this encounter (statuses as of 11/16/2022) [place] [address]21 History of Past illness Narrative* Problem Noted Date Resolved Date Obesity, Class II, BMI 35-39.9 02/25/2021 0 01/07/2022 Last Assessment & Plan: -Body mass index is 35.91 kg/m . Pain in both hands 07/20/2020 03/30/2021 Weakness of both hands 07/20/2020 1 Tendonitis 07/31/2013 06/25/2019 documented as of this encounter (statuses as of 11/16/2022) [facility] History of Past illness Narrative* Problem Noted Date Resolved Date Obesity, Class II, BMI 35-39.9 02/25/2021 0 01/07/2022 Last Assessment & Plan: -Body mass index is 35.91 kg/m . Pain in both hands 07/20/2020 03/30/2021 Weakness of both hands 07/20/2020 1 Tendonitis 07/31/2013 06/25/2019 documented as of this encounter (statuses as of 12/07/2022) [address]10-2021 History of Past illness Narrative* Problem Noted Date Resolved Date Obesity, Class II, BMI 35-39.9 02/25/2021 0 01/07/2022 Last Assessment & Plan: -Body mass index is 35.91 kg/m . Pain in both hands 07/20/2020 03/30/2021 Weakness of both hands 07/20/2020 1 Tendonitis 07/31/2013 06/25/2019 documented as of this encounter (statuses as of 12/12/2022) [facility] History of Past illness Narrative* Problem Noted Date Resolved Date Obesity, Class II, BMI 35-39.9 02/25/2021 0 01/07/2022 Last Assessment & Plan: -Body mass index is 35.91 kg/m . Pain in both hands 07/20/2020 03/30/2021 Weakness of both hands 07/20/2020 1 Tendonitis 07/31/2013 06/25/2019 documented as of this encounter (statuses as of 12/12/2022) [facility] of Past illness Narrative* Problem Noted Date Resolved Date Obesity, Class II, BMI 35-39.9 02/25/2021 0 01/07/2022 Last Assessment & Plan: -Body mass index is 35.91 kg/m . Pain in both hands 07/20/2020 03/30/2021 Weakness of both hands 07/20/2020 1 Tendonitis 07/31/2013 06/25/2019 documented as of this encounter (statuses as of 12/12/2022) [facility] of Past illness Narrative* Problem Noted Date Diagnosed Date Resolved Date Obesity, Class II, BMI 35-39.9 02/25/2021 01/07/2022 Last Assessment & Plan: -Body mass index is 35.91 kg/m . Pain in both hands 07/20/2020 Weakness of both hands 07/20/202003/30 Tendonitis 07/31/2013 06/25/2019 documented as of this encounter (statuses as of 01/08/2023) [facility] History of Past illness Narrative* Problem Noted Date Diagnosed Date Resolved Date Obesity, Class II, BMI 35-39.9 02/25/2021 01/07/2022 Last Assessment & Plan: -Body mass index is 35.91 kg/m . Pain in both hands 07/20/2020 Weakness of both hands 07/20/202003/30 Tendonitis 07/31/2013 06/25/2019 documented as of this encounter (statuses as of 01/16/2023) [facility] History of Past illness Narrative* Problem Noted Date Diagnosed Date Resolved Date Obesity, Class II, BMI 35-39.9 02/25/2021 01/07/2022 Last Assessment & Plan: -Body mass index is 35.91 kg/m . Pain in both hands 07/20/2020 1 Weakness of both hands 07/20/202003/30 Tendonitis 07/31/2013 06/25/2019 documented as of this encounter (statuses as of 01/16/2023) [facility] History of Past illness Narrative* Problem Noted Date Diagnosed Date Resolved Date Obesity, Class II, BMI 35-39.9 02/25/2021 01/07/2022 Last Assessment & Plan: -Body mass index is 35.91 kg/m . Pain in both hands 07/20/2020 1 Weakness of both hands 07/20/202003/30 Tendonitis 07/31/2013 06/25/2019 documented as of this encounter (statuses as of 03/05/2023) [facility] History of Past illness Narrative* Problem Noted Date Diagnosed Date Resolved Date Obesity, Class II, BMI 35-39.9 02/25/2021 01/07/2022 Last Assessment & Plan: -Body mass index is 35.91 kg/m . Pain in both hands 07/20/2020 1 Weakness of both hands 07/20/202003/30 Tendonitis 07/31/2013 06/25/2019 documented as of this encounter (statuses as of 03/07/2023) [address]10-2021 History of Past illness Narrative* Problem Noted Date Diagnosed Date Resolved Date Obesity, Class II, BMI 35-39.9 02/25/2021 01/07/2022 Last Assessment & Plan: -Body mass index is 35.91 kg/m . Pain in both hands 07/20/2020 1 Weakness of both hands 07/20/202003/30 Tendonitis 07/31/2013 06/25/2019 documented as of this encounter (statuses as of 04/15/2023) [address]10-2021 History of Past illness Narrative* Problem Noted Date Diagnosed Date Resolved Date Obesity, Class II, BMI 35-39.9 02/25/2021 01/07/2022 Last Assessment & Plan: -Body mass index is 35.91 kg/m . Pain in both hands 07/20/2020 1 Weakness of both hands 07/20/202003/30 Tendonitis 07/31/2013 06/25/2019 documented as of this encounter (statuses as of 04/16/2023) [address]10-2021 History of Past illness Narrative* Problem Noted Date Diagnosed Date Resolved Date Obesity, Class II, BMI 35-39.9 02/25/2021 01/07/2022 Last Assessment & Plan: -Body mass index is 35.91 kg/m . Pain in both hands 07/20/2020 1 Weakness of both hands 07/20/202003/30 Tendonitis 07/31/2013 06/25/2019 documented as of this encounter (statuses as of 04/17/2023) [address]10-2021 History of Past illness Narrative* Problem Noted Date Diagnosed Date Resolved Date Obesity, Class II, BMI 35-39.9 02/25/2021 01/07/2022 Last Assessment & Plan: -Body mass index is 35.91 kg/m . Pain in both hands 07/20/2020 1 Weakness of both hands 07/20/202003/30 Tendonitis 07/31/2013 06/25/2019 documented as of this encounter (statuses as of 04/21/2023) [address]10-2021 History of Past illness Narrative* Problem Noted Date Diagnosed Date Resolved Date Obesity, Class II, BMI 35-39.9 02/25/2021 01/07/2022 Last Assessment & Plan: -Body mass index is 35.91 kg/m . Pain in both hands 07/20/2020 1 Weakness of both hands 07/20/202003/30 Tendonitis 07/31/2013 06/25/2019 documented as of this encounter (statuses as of 05/08/2023) [place] [address]21 History of Past illness Narrative* Problem Noted Date Diagnosed Date Resolved Date Obesity, Class II, BMI 35-39.9 02/25/2021 01/07/2022 Last Assessment & Plan: -Body mass index is 35.91 kg/m . Pain in both hands 07/20/2020 1 Weakness of both hands 07/20/202003/30 Tendonitis 07/31/2013 06/25/2019 documented as of this encounter (statuses as of 05/21/2023) [address]-2021 History of Past illness Narrative* Problem Noted Date Diagnosed Date Resolved Date Obesity, Class II, BMI 35-39.9 02/25/2021 01/07/2022 Last Assessment & Plan: -Body mass index is 35.91 kg/m . Pain in both hands 07/20/2020 1 Weakness of both hands 07/20/202003/30 Tendonitis 07/31/2013 06/25/2019 documented as of this encounter (statuses as of 05/25/2023) [facility] History of Past illness Narrative* Problem Noted Date Diagnosed Date Resolved Date Obesity, Class II, BMI 35-39.9 02/25/2021 01/07/2022 Last Assessment & Plan: -Body mass index is 35.91 kg/m . Pain in both hands 07/20/2020 Weakness of both hands 07/20/202003/30 Tendonitis 07/31/2013 06/25/2019 documented as of this encounter (statuses as of 05/28/2023) [facility] of Past illness Narrative* Problem Noted Date Diagnosed Date Resolved Date Obesity, Class II, BMI 35-39.9 02/25/2021 01/07/2022 Last Assessment & Plan: -Body mass index is 35.91 kg/m . Pain in both hands 07/20/2020 1 Weakness of both hands 07/20/202003/30 Tendonitis 07/31/2013 06/25/2019 documented as of this encounter (statuses as of 07/31/2023) [facility] History of Past illness Narrative* Problem Noted Date Diagnosed Date Resolved Date Obesity, Class II, BMI 35-39.9 02/25/2021 01/07/2022 Last Assessment & Plan: -Body mass index is 35.91 kg/m . Pain in both hands 07/20/2020 1 Weakness of both hands 07/20/202003/30 Tendonitis 07/31/2013 06/25/2019 documented as of this encounter (statuses as of 08/01/2023) [facility] History of Past illness Narrative* Problem Noted Date Diagnosed Date Resolved Date Obesity, Class II, BMI 35-39.9 02/25/2021 01/07/2022 Last Assessment & Plan: -Body mass index is 35.91 kg/m . Pain in both hands 07/20/2020 10/13/202 1 Weakness of both hands 07/20/202003/30 Tendonitis 07/31/2013 06/25/2019 documented as of this encounter (statuses as of 08/02/2023) [address]10-2021 History of Past illness Narrative* Problem Noted Date Diagnosed Date Resolved Date Obesity, Class II, BMI 35-39.9 02/25/2021 01/07/2022 Last Assessment & Plan: -Body mass index is 35.91 kg/m . Pain in both hands 07/20/2020 Weakness of both hands 07/20/202003/30 Tendonitis 07/31/2013 06/25/2019 documented as of this encounter (statuses as of 08/09/2023) [address]10-2021 History of Past illness Narrative* Problem Noted Date Diagnosed Date Resolved Date Obesity, Class II, BMI 35-39.9 02/25/2021 01/07/2022 Last Assessment & Plan: -Body mass index is 35.91 kg/m . Pain in both hands 07/20/2020 Weakness of both hands 07/20/202003/30 Tendonitis 07/31/2013 06/25/2019 documented as of this encounter (statuses as of 08/09/2023) [facility]09-10-2021 History of Past illness Narrative* Problem Noted Date Diagnosed Date Resolved Date Obesity, Class II, BMI 35-39.9 02/25/2021 01/07/2022 Last Assessment & Plan: -Body mass index is 35.91 kg/m . Pain in both hands 07/20/2020 Weakness of both hands 07/20/202003/30 Tendonitis 07/31/2013 06/25/2019 documented as of this encounter (statuses as of 09/19/2023) [facility]09-05-2021 History of Past illness Narrative* Problem Noted Date Resolved Date Sepsis 02/20/2021 03/02/2021 Pain in both hands 07/20/2020 03/30/2021 Weakness of both hands 07/20/2020 1 Tendonitis 07/31/2013 06/25/2019 documented as of this encounter (statuses as of 09/15/2021) [address]05-2021 History of Past illness Narrative* Problem Noted Date Resolved Date Sepsis 02/20/2021 03/02/2021 Pain in both hands 07/20/2020 03/30/2021 Weakness of both hands 07/20/2020 1 Tendonitis 07/31/2013 06/25/2019 documented as of this encounter (statuses as of 09/19/2021) [address]05-2021 History of Past illness Narrative* Problem Noted Date Resolved Date Sepsis 02/20/2021 03/02/2021 Pain in both hands 07/20/2020 03/30/2021 Weakness of both hands 07/20/2020 1 Tendonitis 07/31/2013 06/25/2019 documented as of this encounter (statuses as of 09/24/2021) [address]05-2021 History of Past illness Narrative* Problem Noted Date Resolved Date Sepsis 02/20/2021 03/02/2021 Pain in both hands 07/20/2020 03/30/2021 Weakness of both hands 07/20/2020 1 Tendonitis 07/31/2013 06/25/2019 documented as of this encounter (statuses as of 09/26/2021) [address]05-2021 History of Past illness Narrative* Problem Noted Date Resolved Date Sepsis 02/20/2021 03/02/2021 Pain in both hands 07/20/2020 03/30/2021 Weakness of both hands 07/20/2020 1 Tendonitis 07/31/2013 06/25/2019 documented as of this encounter (statuses as of 10/04/2021) [address]05-2021 History of Past illness Narrative* Problem Noted Date Resolved Date Sepsis 02/20/2021 03/02/2021 Pain in both hands 07/20/2020 03/30/2021 Weakness of both hands 07/20/2020 1 Tendonitis 07/31/2013 06/25/2019 documented as of this encounter (statuses as of 10/17/2021) [address]05-2021 History of Past illness Narrative* Problem Noted Date Resolved Date Sepsis 02/20/2021 03/02/2021 Pain in both hands 07/20/2020 03/30/2021 Weakness of both hands 07/20/2020 1 Tendonitis 07/31/2013 06/25/2019 documented as of this encounter (statuses as of 10/18/2021) [address]05-2021 History of Past illness Narrative* Problem Noted Date Resolved Date Sepsis 02/20/2021 03/02/2021 Pain in both hands 07/20/2020 03/30/2021 Weakness of both hands 07/20/2020 1 Tendonitis 07/31/2013 06/25/2019 documented as of this encounter (statuses as of 10/20/2021) [address]05-2021 History of Past illness Narrative* Problem Noted Date Resolved Date Sepsis 02/20/2021 03/02/2021 Pain in both hands 07/20/2020 03/30/2021 Weakness of both hands 07/20/2020 1 Tendonitis 07/31/2013 06/25/2019 documented as of this encounter (statuses as of 10/25/2021) [address]05-2021 History of Past illness Narrative* Problem Noted Date Resolved Date Sepsis 02/20/2021 03/02/2021 Pain in both hands 07/20/2020 03/30/2021 Weakness of both hands 07/20/2020 1 Tendonitis 07/31/2013 06/25/2019 documented as of this encounter (statuses as of 11/01/2021) [address]05-2021 History of Past illness Narrative* Problem Noted Date Resolved Date Sepsis 02/20/2021 03/02/2021 Pain in both hands 07/20/2020 03/30/2021 Weakness of both hands 07/20/2020 1 Tendonitis 07/31/2013 06/25/2019 documented as of this encounter (statuses as of 11/02/2021) [address]05-2021 History of Past illness Narrative* Problem Noted Date Resolved Date Sepsis 02/20/2021 03/02/2021 Pain in both hands 07/20/2020 03/30/2021 Weakness of both hands 07/20/2020 1 Tendonitis 07/31/2013 06/25/2019 documented as of this encounter (statuses as of 11/03/2021) [facility]09-05-2021 History of Past illness Narrative* Problem Noted Date Resolved Date Sepsis 02/20/2021 03/02/2021 Pain in both hands 07/20/2020 03/30/2021 Weakness of both hands 07/20/2020 1 Tendonitis 07/31/2013 06/25/2019 documented as of this encounter (statuses as of 11/08/2021) [address]05-2021 History of Past illness Narrative* Problem Noted Date Resolved Date Sepsis 02/20/2021 03/02/2021 Pain in both hands 07/20/2020 03/30/2021 Weakness of both hands 07/20/2020 1 Tendonitis 07/31/2013 06/25/2019 documented as of this encounter (statuses as of 11/09/2021) [address]05-2021 History of Past illness Narrative* Problem Noted Date Resolved Date Sepsis 02/20/2021 03/02/2021 Pain in both hands 07/20/2020 03/30/2021 Weakness of both hands 07/20/2020 1 Tendonitis 07/31/2013 06/25/2019 documented as of this encounter (statuses as of 11/10/2021) [address]05-2021 History of Past illness Narrative* Problem Noted Date Resolved Date Sepsis 02/20/2021 03/02/2021 Pain in both hands 07/20/2020 03/30/2021 Weakness of both hands 07/20/2020 1 Tendonitis 07/31/2013 06/25/2019 documented as of this encounter (statuses as of 11/15/2021) [address]05-2021 History of Past illness Narrative* Problem Noted Date Resolved Date Sepsis 02/20/2021 03/02/2021 Pain in both hands 07/20/2020 03/30/2021 Weakness of both hands 07/20/2020 1 Tendonitis 07/31/2013 06/25/2019 documented as of this encounter (statuses as of 11/16/2021) [address]05-2021 History of Past illness Narrative* Problem Noted Date Resolved Date Sepsis 02/20/2021 03/02/2021 Pain in both hands 07/20/2020 03/30/2021 Weakness of both hands 07/20/2020 1 Tendonitis 07/31/2013 06/25/2019 documented as of this encounter (statuses as of 11/30/2021) [address]05-2021 History of Past illness Narrative* Problem Noted Date Resolved Date Sepsis 02/20/2021 03/02/2021 Pain in both hands 07/20/2020 03/30/2021 Weakness of both hands 07/20/2020 1 Tendonitis 07/31/2013 06/25/2019 documented as of this encounter (statuses as of 11/30/2021) [address]05-2021 History of Past illness Narrative* Problem Noted Date Resolved Date Sepsis 02/20/2021 03/02/2021 Pain in both hands 07/20/2020 03/30/2021 Weakness of both hands 07/20/2020 1 Tendonitis 07/31/2013 06/25/2019 documented as of this encounter (statuses as of 12/08/2021) [address]05-2021 History of Past illness Narrative* Problem Noted Date Resolved Date Sepsis 02/20/2021 03/02/2021 Pain in both hands 07/20/2020 03/30/2021 Weakness of both hands 07/20/2020 1 Tendonitis 07/31/2013 06/25/2019 documented as of this encounter (statuses as of 12/17/2021) [address]05-2021 History of Past illness Narrative* Problem Noted Date Resolved Date Sepsis 02/20/2021 03/02/2021 Pain in both hands 07/20/2020 03/30/2021 Weakness of both hands 07/20/2020 1 Tendonitis 07/31/2013 06/25/2019 documented as of this encounter (statuses as of 12/20/2021) [address]05-2021 History of Past illness Narrative* Problem Noted Date Resolved Date Sepsis 02/20/2021 03/02/2021 Pain in both hands 07/20/2020 03/30/2021 Weakness of both hands 07/20/2020 1 Tendonitis 07/31/2013 06/25/2019 documented as of this encounter (statuses as of 12/21/2021) [address]05-2021 History of Past illness Narrative* Problem Noted Date Resolved Date Sepsis 02/20/2021 03/02/2021 Pain in both hands 07/20/2020 03/30/2021 Weakness of both hands 07/20/2020 1 Tendonitis 07/31/2013 06/25/2019 documented as of this encounter (statuses as of 12/22/2021) [address]05-2021 History of Past illness Narrative* Problem Noted Date Resolved Date Sepsis 02/20/2021 03/02/2021 Pain in both hands 07/20/2020 03/30/2021 Weakness of both hands 07/20/2020 1 Tendonitis 07/31/2013 06/25/2019 documented as of this encounter (statuses as of 12/23/2021) [address]05-2021 History of Past illness Narrative* Problem Noted Date Resolved Date Sepsis 02/20/2021 03/02/2021 Pain in both hands 07/20/2020 03/30/2021 Weakness of both hands 07/20/2020 1 Tendonitis 07/31/2013 06/25/2019 documented as of this encounter (statuses as of 12/26/2021) [address]05-2021 History of Past illness Narrative* Problem Noted Date Resolved Date Sepsis 02/20/2021 03/02/2021 Pain in both hands 07/20/2020 03/30/2021 Weakness of both hands 07/20/2020 1 Tendonitis 07/31/2013 06/25/2019 documented as of this encounter (statuses as of 12/27/2021) [address]05-2021 History of Past illness Narrative* Problem Noted Date Resolved Date Sepsis 02/20/2021 03/02/2021 Pain in both hands 07/20/2020 03/30/2021 Weakness of both hands 07/20/2020 1 Tendonitis 07/31/2013 06/25/2019 documented as of this encounter (statuses as of 12/27/2021) [facility]09-05-2021 History of Past illness Narrative* Problem Noted Date Resolved Date Sepsis 02/20/2021 03/02/2021 Pain in both hands 07/20/2020 03/30/2021 Weakness of both hands 07/20/2020 1 Tendonitis 07/31/2013 06/25/2019 documented as of this encounter (statuses as of 12/29/2021) [facility] Diagnosis Paraplegia (HCC)- Primary Paraplegia Impaired functional mobility, balance, gait, and endurance Gait abnormality Abnormality of gait Spinal cord injury, T7-T12 (HCC) T7-T12 level spinal cord injury without evidence of spinal bone injury, unspecified Spasticity Abnormal involuntary movements Impaired motor control Other specified conditions influencing health status [facility] Lateral epicondylitis of left elbow- Primary Lateral epicondylitis of elbow Chronic pain of both shoulders Pain in joint, [facility] Urination frequency- Primary Urinary frequency Cough [facility] Diagnosis Erectile dysfunction, unspecified erectile dysfunction type- Primary [facility] Diagnosis Paraplegia (HCC)- Primary Paraplegia Gait abnormality Abnormality of gait Spinal cord injury, T7-T12 (HCC) T7-T12 level spinal cord injury without evidence of spinal bone injury, unspecified Impaired functional mobility, balance, gait, and endurance Spasticity Abnormal involuntary movements Impaired motor control Other specified conditions influencing health status [facility] Procedure, test, or exam not indicated- Primary Procedure not carried out for other reasons [facility] Diagnosis Paraplegia (HCC)- Primary Paraplegia Gait abnormality Abnormality of gait Spinal cord injury, T7-T12 (HCC) T7-T12 level spinal cord injury without evidence of spinal bone injury, unspecified Weakness Other malaise and fatigue [facility] Gait abnormality- Primary Abnormality of gait Spinal cord injury, T7-T12 (HCC) T7-T12 level spinal cord injury without evidence of spinal bone injury, unspecified Weakness Other malaise and fatigue Paraplegia (HCC) Paraplegia [facility]* Diagnosis Spinal cord injury, T7-T12 (HCC)- Primary T7-T12 level spinal cord injury without evidence of spinal bone injury, unspecified Gait abnormality Abnormality of gait Weakness Other malaise and fatigue Paraplegia (HCC) Paraplegia [facility] Diagnosis Gait abnormality- Primary Abnormality of gait Spinal cord injury, T7-T12 (HCC) T7-T12 level spinal cord injury without evidence of spinal bone injury, unspecified Weakness Other malaise and fatigue Paraplegia (HCC) Paraplegia Impaired functional mobility, balance, gait, and endurance Spasticity Abnormal involuntary movements [facility] Diagnosis Spinal cord injury, T7-T12 (HCC)- Primary T7-T12 level spinal cord injury without evidence of spinal bone injury, unspecified Gait abnormality Abnormality of gait Weakness Other malaise and fatigue Paraplegia (HCC) Paraplegia [facility] Diagnosis Paraplegia (HCC)- Primary Paraplegia Gait abnormality Abnormality of gait Spinal cord injury, T7-T12 (HCC) T7-T12 level spinal cord injury without evidence of spinal bone injury, unspecified Weakness Other malaise and fatigue [facility] Diagnosis Gait abnormality- Primary Abnormality of gait Spinal cord injury, T7-T12 (HCC) T7-T12 level spinal cord injury without evidence of spinal bone injury, unspecified Weakness Other malaise and fatigue Paraplegia (HCC) Paraplegia documented in this encounter [facility] noteNo assessment information availableWKettering Health Work Phone: Evaluation note* Diagnosis Spasticity- Primary Abnormal involuntary movements Paraplegia (HCC) Paraplegia Spinal cord injury at T7-T12 level (HCC) Abnormality of gait [facility] Diagnosis Paraplegia (HCC)- Primary Paraplegia Gait abnormality Abnormality of gait Spinal cord injury, T7-T12 (HCC) T7-T12 level spinal cord injury without evidence of spinal bone injury, unspecified Weakness Other malaise and fatigue Spasticity Abnormal involuntary movements Impaired functional mobility, balance, gait, and endurance [facility] Diagnosis Spasticity- Primary Abnormal involuntary movements [facility]* Diagnosis Gait abnormality- Primary Abnormality of gait Spinal cord injury, T7-T12 (HCC) T7-T12 level spinal cord injury without evidence of spinal bone injury, unspecified Weakness Other malaise and fatigue Impaired functional mobility, balance, gait, and endurance [facility] Diagnosis Lateral epicondylitis of left elbow Lateral epicondylitis of elbow Chronic pain of both shoulders Pain in joint, shoulder region [facility] Diagnosis Paraplegia (HCC)- Primary Paraplegia Gait abnormality Abnormality of gait Spinal cord injury, T7-T12 (HCC) T7-T12 level spinal cord injury without evidence of spinal bone injury, unspecified Weakness Other malaise and fatigue Impaired functional mobility, balance, gait, and endurance Spasticity Abnormal involuntary movements [facility]* Diagnosis Chronic pain syndrome- Primary [facility]* Diagnosis Spasticity- Primary Abnormal involuntary movements Paraplegia (HCC) Paraplegia Spinal cord injury at T7-T12 level (HCC) [facility]* Diagnosis Spinal cord injury, T7-T12 (HCC)- Primary T7-T12 level spinal cord injury without evidence of spinal bone injury, unspecified Gait abnormality Abnormality of gait Impaired functional mobility, balance, gait, and endurance Weakness Other malaise and fatigue [facility]* Diagnosis Spinal cord injury, T7-T12 (HCC)- Primary T7-T12 level spinal cord injury without evidence of spinal bone injury, unspecified [facility] Diagnosis Gait abnormality- Primary Abnormality of gait Spinal cord injury, T7-T12 (HCC) T7-T12 level spinal cord injury without evidence of spinal bone injury, unspecified Impaired functional mobility, balance, gait, and endurance Paraplegia (HCC) Paraplegia Weakness Other malaise and fatigue Impaired motor control Other specified conditions influencing health status [facility]* Diagnosis Nausea- Primary Nausea alone [facility] Diagnosis Wound of right lower extremity, subsequent encounter- Primary Elevated blood sugar Other abnormal glucose Lipid screening Screening for lipoid disorders Hospital discharge follow-up Other follow-up examination 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 Factor 5 Leiden mutation, heterozygous (HCC) Primary hypercoagulable state [facility]* Diagnosis Spinal cord injury, T7-T12 (HCC)- Primary T7-T12 level spinal cord injury without evidence of spinal bone injury, unspecified Gait abnormality Abnormality of gait Paraplegia (HCC) Paraplegia [facility]* Diagnosis Lymphedema- Primary Other lymphedema Swelling of lower extremity [facility]* Diagnosis Spinal cord injury, T7-T12 (HCC)- Primary T7-T12 level spinal cord injury without evidence of spinal bone injury, unspecified [facility]* Diagnosis Spinal cord injury, T7-T12 (HCC)- Primary T7-T12 level spinal cord injury without evidence of spinal bone injury, unspecified [facility]* Diagnosis Spinal cord injury, T7-T12 (HCC)- Primary T7-T12 level spinal cord injury without evidence of spinal bone injury, unspecified [facility]* Diagnosis Chronic pain syndrome- Primary [facility]* Diagnosis Spinal cord injury, T7-T12 (HCC)- Primary T7-T12 level spinal cord injury without evidence of spinal bone injury, unspecified Recurrent UTI Urinary tract infection, site not specified [facility] Diagnosis Spinal cord injury, T7-T12 (HCC)- Primary T7-T12 level spinal cord injury without evidence of spinal bone injury, unspecified Paraplegia (HCC) Paraplegia Impaired functional mobility, balance, gait, and endurance Gait abnormality Abnormality of gait [facility] Diagnosis Spasm of muscle- Primary Spinal cord injury at T7-T12 level (HCC) Paraplegia (HCC) Paraplegia [facility] Diagnosis Lateral epicondylitis of left elbow- Primary Lateral epicondylitis of elbow [facility] Diagnosis Spasm of muscle- Primary Paraplegia (HCC) Paraplegia Spinal cord injury at T7-T12 level (HCC) [facility]* Diagnosis Itching- Primary Unspecified pruritic disorder [facility]* Diagnosis Spinal cord injury, T7-T12 (HCC)- Primary T7-T12 level spinal cord injury without evidence of spinal bone injury, unspecified Paraplegia (HCC) Paraplegia Impaired functional mobility, balance, gait, and endurance [facility]* Diagnosis Spinal cord injury, T7-T12 (HCC)- Primary T7-T12 level spinal cord injury without evidence of spinal bone injury, unspecified Paraplegia (HCC) Paraplegia Impaired functional mobility, balance, gait, and endurance Gait abnormality Abnormality of gait [facility]* Diagnosis Spinal cord injury, T7-T12 (HCC)- Primary T7-T12 level spinal cord injury without evidence of spinal bone injury, unspecified Paraplegia (HCC) Paraplegia Impaired functional mobility, balance, gait, and endurance documented [facility]* Diagnosis Spinal cord injury, T7-T12 (HCC)- Primary T7-T12 level spinal cord injury without evidence of spinal bone injury, unspecified Paraplegia (HCC) Paraplegia Impaired functional mobility, balance, gait, and endurance Gait abnormality Abnormality of gait [facility]* Diagnosis Epididymitis, left- Primary Orchitis and epididymitis, unspecified Testicle swelling Edema of male genital organs Cloudy urine Other nonspecific finding on examination of urine documented in this encounter [facility] note* Diagnosis Spasticity- Primary Abnormal involuntary movements Paraplegia (HCC) Paraplegia Spinal cord injury at T7-T12 level (HCC) [facility] Diagnosis Spinal cord injury, T7-T12 (HCC)- Primary T7-T12 level spinal cord injury without evidence of spinal bone injury, unspecified Paraplegia (HCC) Paraplegia Impaired functional mobility, balance, gait, and endurance Gait abnormality Abnormality of gait documented in this encounter [facility] note* Diagnosis Spinal cord injury, T7-T12 (HCC)- Primary T7-T12 level spinal cord injury without evidence of spinal bone injury, unspecified [facility]* Diagnosis Spinal cord injury, T7-T12 (HCC)- Primary T7-T12 level spinal cord injury without evidence of spinal bone injury, unspecified [facility]* Diagnosis Spinal cord injury, T7-T12 (HCC)- Primary T7-T12 level spinal cord injury without evidence of spinal bone injury, unspecified [facility]* Diagnosis Spinal cord injury, T7-T12 (HCC)- Primary T7-T12 level spinal cord injury without evidence of spinal bone injury, unspecified [facility]* Diagnosis Spasticity- Primary Abnormal involuntary movements Paraplegia (HCC) Paraplegia Spinal cord injury at T7-T12 level (HCC) [facility]* Diagnosis Spinal cord injury, T7-T12 (HCC)- Primary T7-T12 level spinal cord injury without evidence of spinal bone injury, unspecified Paraplegia (HCC) Paraplegia Impaired functional mobility, balance, gait, and endurance Gait abnormality Abnormality of gait [facility]* Diagnosis Epididymitis- Primary Orchitis and epididymitis, unspecified [facility]* Diagnosis Spinal cord injury, T7-T12 (HCC)- Primary T7-T12 level spinal cord injury without evidence of spinal bone injury, unspecified Paraplegia (HCC) Paraplegia Impaired functional mobility, balance, gait, and endurance Gait abnormality Abnormality of gait [facility]* Diagnosis Spinal cord injury, T7-T12 (HCC)- Primary T7-T12 level spinal cord injury without evidence of spinal bone injury, unspecified Paraplegia (HCC) Paraplegia Impaired functional mobility, balance, gait, and endurance Gait abnormality Abnormality of gait [facility] Diagnosis Spinal cord injury, T7-T12 (HCC)- Primary T7-T12 level spinal cord injury without evidence of spinal bone injury, unspecified Paraplegia (HCC) Paraplegia Impaired functional mobility, balance, gait, and endurance Gait abnormality Abnormality of gait [facility]* Diagnosis Spinal cord injury, T7-T12 (HCC)- Primary T7-T12 level spinal cord injury without evidence of spinal bone injury, unspecified Paraplegia (HCC) Paraplegia Impaired functional mobility, balance, gait, and endurance Gait abnormality Abnormality of gait [facility]* Diagnosis Spasticity- Primary Abnormal involuntary movements Paraplegia (HCC) Paraplegia Spinal cord injury at T7-T12 level (HCC) [facility] Diagnosis Spasticity- Primary Abnormal involuntary movements [facility] Diagnosis Impaired functional mobility, balance, gait, and endurance- Primary Impaired motor control Other specified conditions influencing health status Spinal cord injury, T7-T12 (HCC) T7-T12 level spinal cord injury without evidence of spinal bone injury, unspecified Paraplegia (HCC) Paraplegia Gait abnormality Abnormality of gait [facility] Diagnosis Impaired functional mobility, balance, gait, and endurance- Primary Impaired motor control Other specified conditions influencing health status Spinal cord injury, T7-T12 (HCC) T7-T12 level spinal cord injury without evidence of spinal bone injury, unspecified Paraplegia (HCC) Paraplegia Spasticity Abnormal involuntary movements Weakness Other malaise and fatigue Gait abnormality Abnormality of gait [facility] Diagnosis Lateral epicondylitis of left elbow- Primary Lateral epicondylitis of elbow [facility] Diagnosis Nausea Nausea alone [facility] Diagnosis Spasticity- Primary Abnormal involuntary movements Paraplegia (HCC) Paraplegia Spinal cord injury at T7-T12 level (HCC) [facility] Diagnosis Spinal cord injury at T7-T12 level (HCC)- Primary Paraplegia (HCC) Paraplegia Muscle spasticity Spasm of muscle [facility] Diagnosis Paraplegia (HCC)- Primary Paraplegia [facility]* Diagnosis Painful urination- Primary Dysuria [facility]* Diagnosis Fever, unspecified fever cause- Primary [facility] Diagnosis Lateral epicondylitis of left elbow- Primary Lateral epicondylitis of elbow [facility]* Diagnosis Erectile dysfunction, unspecified erectile dysfunction type [facility] Diagnosis Recurrent UTI- Primary Urinary tract infection, site not specified Hordeolum externum of left upper eyelid Hordeolum externum [facility] 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Erectile dysfunction, unspecified erectile dysfunction type Hypogonadism in male [facility]* Diagnosis Spasticity- Primary Abnormal involuntary movements Spasm of muscle T7-T12 level spinal cord injury (HCC) T7-T12 level spinal cord injury without evidence of spinal bone injury, unspecified [facility]* Diagnosis Urinary frequency- Primary [facility]* Diagnosis Neck pain- Primary Cervicalgia [facility]* Diagnosis E. coli UTI (urinary tract infection)- Primary Urinary tract infection, site not specified [facility]* Diagnosis Cellulitis of skin- Primary Cellulitis and abscess of unspecified site [facility]* Diagnosis Spinal cord injury at T7-T12 level (HCC)- Primary Spasm of muscle Paraplegia (HCC) Paraplegia [facility] Diagnosis Drug-induced constipation- Primary Other constipation [facility]* Diagnosis Spasm of muscle- Primary Spinal cord injury at T7-T12 level (HCC) Paraplegia (HCC) Paraplegia [facility]* Diagnosis Muscle spasticity- Primary Spasm of muscle T7-T12 level spinal cord injury (HCC) T7-T12 level spinal cord injury without evidence of spinal bone injury, unspecified [facility]* 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Erectile dysfunction, unspecified erectile dysfunction type Hypogonadism in male [facility]* Diagnosis Vitamin D deficiency- Primary Unspecified vitamin D deficiency Encounter for immunization Need for other specified prophylactic vaccination against single bacterial disease Vitamin B12 deficiency Other B-complex deficiencies Hyperlipidemia, mixed Mixed hyperlipidemia Prediabetes Other abnormal glucose Iron deficiency Iron deficiency anemia, unspecified Spinal cord injury, T7-T12 (HCC) T7-T12 level spinal cord injury without evidence of spinal bone injury, unspecified Morbid obesity (HCC) Morbid obesity Factor 5 Leiden mutation, heterozygous (HCC) Primary hypercoagulable state Annual physical exam Routine general medical examination at a health care facility [facility]* Diagnosis Muscle spasticity- Primary Spasm of muscle Paraplegia (HCC) Paraplegia [facility]* Diagnosis Nausea Nausea alone documented in this encounter [facility] note* Diagnosis Encounter to establish care- Primary Other reasons for seeking consultation Incomplete spinal cord injury Unspecified site of spinal cord injury without evidence of spinal bone injury Factor 5 Leiden mutation, heterozygous (HCC) Primary hypercoagulable state Urinary retention Retention of urine, unspecified Neurogenic bladder Neurogenic bladder, NOS Weight gain Abnormal weight gain Factor 5 Leiden mutation, heterozygous (HCC)- Primary Primary hypercoagulable state Incomplete spinal cord injury Unspecified site of spinal cord injury without evidence of spinal bone injury Neurogenic bladder Neurogenic bladder, NOS Weight gain Abnormal weight gain Constipation Unspecified constipation Sinusitis Unspecified sinusitis (chronic) Urinary retention- Primary Retention of urine, unspecified Constipation Unspecified constipation Weight gain Abnormal weight gain Incomplete spinal cord injury Unspecified site of spinal cord injury without evidence of spinal bone injury Foot drop, left Other acquired deformity of ankle and foot Incomplete spinal cord injury- Primary Unspecified site of spinal cord injury without evidence of spinal bone injury Constipation Unspecified constipation Weight gain Abnormal weight gain Weight gain- Primary Abnormal weight gain Incomplete spinal cord injury Unspecified site of spinal cord injury without evidence of spinal bone injury ED (erectile dysfunction) Impotence of organic origin Constipation Unspecified constipation Pre-op evaluation- Primary Preoperative examination, unspecified Spasticity Abnormal involuntary movements Spinal cord injury, T7-T12 (HCC) T7-T12 level spinal cord injury without evidence of spinal bone injury, unspecified Tobacco abuse disorder Tobacco use disorder Asthma, unspecified asthma severity, unspecified whether complicated, unspecified whether persistent History of pulmonary embolus (PE) Personal history of pulmonary embolism Factor 5 Leiden mutation, heterozygous (HCC) Primary hypercoagulable state Obesity, Class II, BMI 35-39.9 Obesity, unspecified Presence of intrathecal baclofen pump Other postprocedural status KARAN (obstructive sleep apnea) Obstructive sleep apnea (adult) (pediatric) Septic shock ([facility])- Primary Cellulitis of left upper extremity Cellulitis and abscess of upper arm and forearm Urinary tract infection without hematuria, site unspecified Onychomycosis Dermatophytosis of nail Spinal cord injury, T7-T12 (HCC) T7-T12 level spinal cord injury without evidence of spinal bone injury, unspecified Paraplegia (HCC) Paraplegia Spasticity Abnormal involuntary movements documented in this encounter [facility] note* Diagnosis Encounter to establish care- Primary Other reasons for seeking consultation Incomplete spinal cord injury Unspecified site of spinal cord injury without evidence of spinal bone injury Factor 5 Leiden mutation, heterozygous (HCC) Primary hypercoagulable state Urinary retention Retention of urine, unspecified Neurogenic bladder Neurogenic bladder, NOS Weight gain Abnormal weight gain Factor 5 Leiden mutation, heterozygous (HCC)- Primary Primary hypercoagulable state Incomplete spinal cord injury Unspecified site of spinal cord injury without evidence of spinal bone injury Neurogenic bladder Neurogenic bladder, NOS Weight gain Abnormal weight gain Constipation Unspecified constipation Sinusitis Unspecified sinusitis (chronic) Urinary retention- Primary Retention of urine, unspecified Constipation Unspecified constipation Weight gain Abnormal weight gain Incomplete spinal cord injury Unspecified site of spinal cord injury without evidence of spinal bone injury Foot drop, left Other acquired deformity of ankle and foot Incomplete spinal cord injury- Primary Unspecified site of spinal cord injury without evidence of spinal bone injury Constipation Unspecified constipation Weight gain Abnormal weight gain Weight gain- Primary Abnormal weight gain Incomplete spinal cord injury Unspecified site of spinal cord injury without evidence of spinal bone injury ED (erectile dysfunction) Impotence of organic origin Constipation Unspecified constipation Pre-op evaluation- Primary Preoperative examination, unspecified Spasticity Abnormal involuntary movements Spinal cord injury, T7-T12 (HCC) T7-T12 level spinal cord injury without evidence of spinal bone injury, unspecified Tobacco abuse disorder Tobacco use disorder Asthma, unspecified asthma severity, unspecified whether complicated, unspecified whether persistent History of pulmonary embolus (PE) Personal history of pulmonary embolism Factor 5 Leiden mutation, heterozygous (HCC) Primary hypercoagulable state Obesity, Class II, BMI 35-39.9 Obesity, unspecified Presence of intrathecal baclofen pump Other postprocedural status KARAN (obstructive sleep apnea) Obstructive sleep apnea (adult) (pediatric) Post-traumatic stress disorder, acute- Primary Posttraumatic stress disorder [facility] Encounter to establish care- Primary Other reasons for seeking consultation Incomplete spinal cord injury Unspecified site of spinal cord injury without evidence of spinal bone injury Factor 5 Leiden mutation, heterozygous (HCC) Primary hypercoagulable state Urinary retention Retention of urine, unspecified Neurogenic bladder Neurogenic bladder, NOS Weight gain Abnormal weight gain Factor 5 Leiden mutation, heterozygous (HCC)- Primary Primary hypercoagulable state Incomplete spinal cord injury Unspecified site of spinal cord injury without evidence of spinal bone injury Neurogenic bladder Neurogenic bladder, NOS Weight gain Abnormal weight gain Constipation Unspecified constipation Sinusitis Unspecified sinusitis (chronic) Urinary retention- Primary Retention of urine, unspecified Constipation Unspecified constipation Weight gain Abnormal weight gain Incomplete spinal cord injury Unspecified site of spinal cord injury without evidence of spinal bone injury Foot drop, left Other acquired deformity of ankle and foot Incomplete spinal cord injury- Primary Unspecified site of spinal cord injury without evidence of spinal bone injury Constipation Unspecified constipation Weight gain Abnormal weight gain Weight gain- Primary Abnormal weight gain Incomplete spinal cord injury Unspecified site of spinal cord injury without evidence of spinal bone injury ED (erectile dysfunction) Impotence of organic origin Constipation Unspecified constipation Pre-op evaluation- Primary Preoperative examination, unspecified Spasticity Abnormal involuntary movements Spinal cord injury, T7-T12 (HCC) T7-T12 level spinal cord injury without evidence of spinal bone injury, unspecified Tobacco abuse disorder Tobacco use disorder Asthma, unspecified asthma severity, unspecified whether complicated, unspecified whether persistent History of pulmonary embolus (PE) Personal history of pulmonary embolism Factor 5 Leiden mutation, heterozygous (HCC) Primary hypercoagulable state Obesity, Class II, BMI 35-39.9 Obesity, unspecified Presence of intrathecal baclofen pump Other postprocedural status KARAN (obstructive sleep apnea) Obstructive sleep apnea (adult) (pediatric) Nausea Nausea alone [facility] Encounter to establish care- Primary Other reasons for seeking consultation Incomplete spinal cord injury Unspecified site of spinal cord injury without evidence of spinal bone injury Factor 5 Leiden mutation, heterozygous (HCC) Primary hypercoagulable state Urinary retention Retention of urine, unspecified Neurogenic bladder Neurogenic bladder, NOS Weight gain Abnormal weight gain Factor 5 Leiden mutation, heterozygous (HCC)- Primary Primary hypercoagulable state Incomplete spinal cord injury Unspecified site of spinal cord injury without evidence of spinal bone injury Neurogenic bladder Neurogenic bladder, NOS Weight gain Abnormal weight gain Constipation Unspecified constipation Sinusitis Unspecified sinusitis (chronic) Urinary retention- Primary Retention of urine, unspecified Constipation Unspecified constipation Weight gain Abnormal weight gain Incomplete spinal cord injury Unspecified site of spinal cord injury without evidence of spinal bone injury Foot drop, left Other acquired deformity of ankle and foot Incomplete spinal cord injury- Primary Unspecified site of spinal cord injury without evidence of spinal bone injury Constipation Unspecified constipation Weight gain Abnormal weight gain Weight gain- Primary Abnormal weight gain Incomplete spinal cord injury Unspecified site of spinal cord injury without evidence of spinal bone injury ED (erectile dysfunction) Impotence of organic origin Constipation Unspecified constipation Pre-op evaluation- Primary Preoperative examination, unspecified Spasticity Abnormal involuntary movements Spinal cord injury, T7-T12 (HCC) T7-T12 level spinal cord injury without evidence of spinal bone injury, unspecified Tobacco abuse disorder Tobacco use disorder Asthma, unspecified asthma severity, unspecified whether complicated, unspecified whether persistent History of pulmonary embolus (PE) Personal history of pulmonary embolism Factor 5 Leiden mutation, heterozygous (HCC) Primary hypercoagulable state Obesity, Class II, BMI 35-39.9 Obesity, unspecified Presence of intrathecal baclofen pump Other postprocedural status KARAN (obstructive sleep apnea) Obstructive sleep apnea (adult) (pediatric) Spasm of muscle- Primary Spinal cord injury at T7-T12 level (HCC) Paraplegia ([facility]) [facility]aplegia [facility] Encounter to establish care- Primary Other reasons for seeking consultation Incomplete spinal cord injury Unspecified site of spinal cord injury without evidence of spinal bone injury Factor 5 Leiden mutation, heterozygous (HCC) Primary hypercoagulable state Urinary retention Retention of urine, unspecified Neurogenic bladder Neurogenic bladder, NOS Weight gain Abnormal weight gain Factor 5 Leiden mutation, heterozygous (HCC)- Primary Primary hypercoagulable state Incomplete spinal cord injury Unspecified site of spinal cord injury without evidence of spinal bone injury Neurogenic bladder Neurogenic bladder, NOS Weight gain Abnormal weight gain Constipation Unspecified constipation Sinusitis Unspecified sinusitis (chronic) Urinary retention- Primary Retention of urine, unspecified Constipation Unspecified constipation Weight gain Abnormal weight gain Incomplete spinal cord injury Unspecified site of spinal cord injury without evidence of spinal bone injury Foot drop, left Other acquired deformity of ankle and foot Incomplete spinal cord injury- Primary Unspecified site of spinal cord injury without evidence of spinal bone injury Constipation Unspecified constipation Weight gain Abnormal weight gain Weight gain- Primary Abnormal weight gain Incomplete spinal cord injury Unspecified site of spinal cord injury without evidence of spinal bone injury ED (erectile dysfunction) Impotence of organic origin Constipation Unspecified constipation Pre-op evaluation- Primary Preoperative examination, unspecified Spasticity Abnormal involuntary movements Spinal cord injury, T7-T12 (HCC) T7-T12 level spinal cord injury without evidence of spinal bone injury, unspecified Tobacco abuse disorder Tobacco use disorder Asthma, unspecified asthma severity, unspecified whether complicated, unspecified whether persistent History of pulmonary embolus (PE) Personal history of pulmonary embolism Factor 5 Leiden mutation, heterozygous (HCC) Primary hypercoagulable state Obesity, Class II, BMI 35-39.9 Obesity, unspecified Presence of intrathecal baclofen pump Other postprocedural status KARAN (obstructive sleep apnea) Obstructive sleep apnea (adult) (pediatric) Fever, unspecified fever cause [facility]* Diagnosis Encounter to establish care- Primary Other reasons for seeking consultation Incomplete spinal cord injury Unspecified site of spinal cord injury without evidence of spinal bone injury Factor 5 Leiden mutation, heterozygous (HCC) Primary hypercoagulable state Urinary retention Retention of urine, unspecified Neurogenic bladder Neurogenic bladder, NOS Weight gain Abnormal weight gain Factor 5 Leiden mutation, heterozygous (HCC)- Primary Primary hypercoagulable state Incomplete spinal cord injury Unspecified site of spinal cord injury without evidence of spinal bone injury Neurogenic bladder Neurogenic bladder, NOS Weight gain Abnormal weight gain Constipation Unspecified constipation Sinusitis Unspecified sinusitis (chronic) Urinary retention- Primary Retention of urine, unspecified Constipation Unspecified constipation Weight gain Abnormal weight gain Incomplete spinal cord injury Unspecified site of spinal cord injury without evidence of spinal bone injury Foot drop, left Other acquired deformity of ankle and foot Incomplete spinal cord injury- Primary Unspecified site of spinal cord injury without evidence of spinal bone injury Constipation Unspecified constipation Weight gain Abnormal weight gain Weight gain- Primary Abnormal weight gain Incomplete spinal cord injury Unspecified site of spinal cord injury without evidence of spinal bone injury ED (erectile dysfunction) Impotence of organic origin Constipation Unspecified constipation Pre-op evaluation- Primary Preoperative examination, unspecified Spasticity Abnormal involuntary movements Spinal cord injury, T7-T12 (HCC) T7-T12 level spinal cord injury without evidence of spinal bone injury, unspecified Tobacco abuse disorder Tobacco use disorder Asthma, unspecified asthma severity, unspecified whether complicated, unspecified whether persistent History of pulmonary embolus (PE) Personal history of pulmonary embolism Factor 5 Leiden mutation, heterozygous (HCC) Primary hypercoagulable state Obesity, Class II, BMI 35-39.9 Obesity, unspecified Presence of intrathecal baclofen pump Other postprocedural status KARAN (obstructive sleep apnea) Obstructive sleep apnea (adult) (pediatric) Cough documented in this encounter [facility] note* Diagnosis Encounter to establish care- Primary Other reasons for seeking consultation Incomplete spinal cord injury Unspecified site of spinal cord injury without evidence of spinal bone injury Factor 5 Leiden mutation, heterozygous (HCC) Primary hypercoagulable state Urinary retention Retention of urine, unspecified Neurogenic bladder Neurogenic bladder, NOS Weight gain Abnormal weight gain Factor 5 Leiden mutation, heterozygous (HCC)- Primary Primary hypercoagulable state Incomplete spinal cord injury Unspecified site of spinal cord injury without evidence of spinal bone injury Neurogenic bladder Neurogenic bladder, NOS Weight gain Abnormal weight gain Constipation Unspecified constipation Sinusitis Unspecified sinusitis (chronic) Urinary retention- Primary Retention of urine, unspecified Constipation Unspecified constipation Weight gain Abnormal weight gain Incomplete spinal cord injury Unspecified site of spinal cord injury without evidence of spinal bone injury Foot drop, left Other acquired deformity of ankle and foot Incomplete spinal cord injury- Primary Unspecified site of spinal cord injury without evidence of spinal bone injury Constipation Unspecified constipation Weight gain Abnormal weight gain Weight gain- Primary Abnormal weight gain Incomplete spinal cord injury Unspecified site of spinal cord injury without evidence of spinal bone injury ED (erectile dysfunction) Impotence of organic origin Constipation Unspecified constipation Pre-op evaluation- Primary Preoperative examination, unspecified Spasticity Abnormal involuntary movements Spinal cord injury, T7-T12 (HCC) T7-T12 level spinal cord injury without evidence of spinal bone injury, unspecified Tobacco abuse disorder Tobacco use disorder Asthma, unspecified asthma severity, unspecified whether complicated, unspecified whether persistent History of pulmonary embolus (PE) Personal history of pulmonary embolism Factor 5 Leiden mutation, heterozygous (HCC) Primary hypercoagulable state Obesity, Class II, BMI 35-39.9 Obesity, unspecified Presence of intrathecal baclofen pump Other postprocedural status KARAN (obstructive sleep apnea) Obstructive sleep apnea (adult) (pediatric) Spasticity- Primary Abnormal involuntary movements T7-T12 level spinal cord injury (HCC) T7-T12 level spinal cord injury without evidence of spinal bone injury, unspecified [facility] Encounter to establish care- Primary Other reasons for seeking consultation Incomplete spinal cord injury Unspecified site of spinal cord injury without evidence of spinal bone injury Factor 5 Leiden mutation, heterozygous (HCC) Primary hypercoagulable state Urinary retention Retention of urine, unspecified Neurogenic bladder Neurogenic bladder, NOS Weight gain Abnormal weight gain Factor 5 Leiden mutation, heterozygous (HCC)- Primary Primary hypercoagulable state Incomplete spinal cord injury Unspecified site of spinal cord injury without evidence of spinal bone injury Neurogenic bladder Neurogenic bladder, NOS Weight gain Abnormal weight gain Constipation Unspecified constipation Sinusitis Unspecified sinusitis (chronic) Urinary retention- Primary Retention of urine, unspecified Constipation Unspecified constipation Weight gain Abnormal weight gain Incomplete spinal cord injury Unspecified site of spinal cord injury without evidence of spinal bone injury Foot drop, left Other acquired deformity of ankle and foot Incomplete spinal cord injury- Primary Unspecified site of spinal cord injury without evidence of spinal bone injury Constipation Unspecified constipation Weight gain Abnormal weight gain Weight gain- Primary Abnormal weight gain Incomplete spinal cord injury Unspecified site of spinal cord injury without evidence of spinal bone injury ED (erectile dysfunction) Impotence of organic origin Constipation Unspecified constipation Pre-op evaluation- Primary Preoperative examination, unspecified Spasticity Abnormal involuntary movements Spinal cord injury, T7-T12 (HCC) T7-T12 level spinal cord injury without evidence of spinal bone injury, unspecified Tobacco abuse disorder Tobacco use disorder Asthma, unspecified asthma severity, unspecified whether complicated, unspecified whether persistent History of pulmonary embolus (PE) Personal history of pulmonary embolism Factor 5 Leiden mutation, heterozygous (HCC) Primary hypercoagulable state Obesity, Class II, BMI 35-39.9 Obesity, unspecified Presence of intrathecal baclofen pump Other postprocedural status KARAN (obstructive sleep apnea) Obstructive sleep apnea (adult) (pediatric) Factor 5 Leiden mutation, heterozygous (HCC)- Primary Primary hypercoagulable state Nicotine use disorder, F17.2 Tobacco use disorder Encounter for monitoring chronic NSAID therapy Encounter for therapeutic drug monitoring Self-catheterizes urinary bladder Other specified conditions influencing health status Spinal cord injury, T7-T12 (HCC) T7-T12 level spinal cord injury without evidence of spinal bone injury, unspecified 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 Vitamin D deficiency Unspecified vitamin D deficiency Class 1 obesity with serious comorbidity and body mass index (BMI) of 33.0 to 33.9 in adult, unspecified obesity type [facility] En[facility] to [facility] care- Primary Other reasons for seeking consultation Incomplete spinal cord injury Unspecified site of spinal cord injury without evidence of spinal bone injury Factor 5 Leiden mutation, heterozygous (HCC) Primary hypercoagulable state Urinary retention Retention of urine, unspecified Neurogenic bladder Neurogenic bladder, NOS Weight gain Abnormal weight gain Factor 5 Leiden mutation, heterozygous (HCC)- Primary Primary hypercoagulable state Incomplete spinal cord injury Unspecified site of spinal cord injury without evidence of spinal bone injury Neurogenic bladder Neurogenic bladder, NOS Weight gain Abnormal weight gain Constipation Unspecified constipation Sinusitis Unspecified sinusitis (chronic) Urinary retention- Primary Retention of urine, unspecified Constipation Unspecified constipation Weight gain Abnormal weight gain Incomplete spinal cord injury Unspecified site of spinal cord injury without evidence of spinal bone injury Foot drop, left Other acquired deformity of ankle and foot Incomplete spinal cord injury- Primary Unspecified site of spinal cord injury without evidence of spinal bone injury Constipation Unspecified constipation Weight gain Abnormal weight gain Weight gain- Primary Abnormal weight gain Incomplete spinal cord injury Unspecified site of spinal cord injury without evidence of spinal bone injury ED (erectile dysfunction) Impotence of organic origin Constipation Unspecified constipation Pre-op evaluation- Primary Preoperative examination, unspecified Spasticity Abnormal involuntary movements Spinal cord injury, T7-T12 (HCC) T7-T12 level spinal cord injury without evidence of spinal bone injury, unspecified Tobacco abuse disorder Tobacco use disorder Asthma, unspecified asthma severity, unspecified whether complicated, unspecified whether persistent History of pulmonary embolus (PE) Personal history of pulmonary embolism Factor 5 Leiden mutation, heterozygous (HCC) Primary hypercoagulable state Obesity, Class II, BMI 35-39.9 Obesity, unspecified Presence of intrathecal baclofen pump Other postprocedural status KARAN (obstructive sleep apnea) Obstructive sleep apnea (adult) (pediatric) Lateral epicondylitis of left elbow- Primary Lateral epicondylitis of elbow Bilateral shoulder bursitis [facility] Encounter to establish care- Primary Other reasons for seeking consultation Incomplete spinal cord injury Unspecified site of spinal cord injury without evidence of spinal bone injury Factor 5 Leiden mutation, heterozygous (HCC) Primary hypercoagulable state Urinary retention Retention of urine, unspecified Neurogenic bladder Neurogenic bladder, NOS Weight gain Abnormal weight gain Factor 5 Leiden mutation, heterozygous (HCC)- Primary Primary hypercoagulable state Incomplete spinal cord injury Unspecified site of spinal cord injury without evidence of spinal bone injury Neurogenic bladder Neurogenic bladder, NOS Weight gain Abnormal weight gain Constipation Unspecified constipation Sinusitis Unspecified sinusitis (chronic) Urinary retention- Primary Retention of urine, unspecified Constipation Unspecified constipation Weight gain Abnormal weight gain Incomplete spinal cord injury Unspecified site of spinal cord injury without evidence of spinal bone injury Foot drop, left Other acquired deformity of ankle and foot Incomplete spinal cord injury- Primary Unspecified site of spinal cord injury without evidence of spinal bone injury Constipation Unspecified constipation Weight gain Abnormal weight gain Weight gain- Primary Abnormal weight gain Incomplete spinal cord injury Unspecified site of spinal cord injury without evidence of spinal bone injury ED (erectile dysfunction) Impotence of organic origin Constipation Unspecified constipation Pre-op evaluation- Primary Preoperative examination, unspecified Spasticity Abnormal involuntary movements Spinal cord injury, T7-T12 (HCC) T7-T12 level spinal cord injury without evidence of spinal bone injury, unspecified Tobacco abuse disorder Tobacco use disorder Asthma, unspecified asthma severity, unspecified whether complicated, unspecified whether persistent History of pulmonary embolus (PE) Personal history of pulmonary embolism Factor 5 Leiden mutation, heterozygous (HCC) Primary hypercoagulable state Obesity, Class II, BMI 35-39.9 Obesity, unspecified Presence of intrathecal baclofen pump Other postprocedural status KARAN (obstructive sleep apnea) Obstructive sleep apnea (adult) (pediatric) Mild intermittent asthma with acute exacerbation- Primary Unspecified asthma, with exacerbation Urinary tract infection without hematuria, site unspecified Mild intermittent asthma with acute exacerbation Unspecified asthma, with exacerbation [facility] Encounter to establish care- Primary Other reasons for seeking consultation Incomplete spinal cord injury Unspecified site of spinal cord injury without evidence of spinal bone injury Factor 5 Leiden mutation, heterozygous (HCC) Primary hypercoagulable state Urinary retention Retention of urine, unspecified Neurogenic bladder Neurogenic bladder, NOS Weight gain Abnormal weight gain Factor 5 Leiden mutation, heterozygous (HCC)- Primary Primary hypercoagulable state Incomplete spinal cord injury Unspecified site of spinal cord injury without evidence of spinal bone injury Neurogenic bladder Neurogenic bladder, NOS Weight gain Abnormal weight gain Constipation Unspecified constipation Sinusitis Unspecified sinusitis (chronic) Urinary retention- Primary Retention of urine, unspecified Constipation Unspecified constipation Weight gain Abnormal weight gain Incomplete spinal cord injury Unspecified site of spinal cord injury without evidence of spinal bone injury Foot drop, left Other acquired deformity of ankle and foot Incomplete spinal cord injury- Primary Unspecified site of spinal cord injury without evidence of spinal bone injury Constipation Unspecified constipation Weight gain Abnormal weight gain Weight gain- Primary Abnormal weight gain Incomplete spinal cord injury Unspecified site of spinal cord injury without evidence of spinal bone injury ED (erectile dysfunction) Impotence of organic origin Constipation Unspecified constipation Pre-op evaluation- Primary Preoperative examination, unspecified Spasticity Abnormal involuntary movements Spinal cord injury, T7-T12 (HCC) T7-T12 level spinal cord injury without evidence of spinal bone injury, unspecified Tobacco abuse disorder Tobacco use disorder Asthma, unspecified asthma severity, unspecified whether complicated, unspecified whether persistent History of pulmonary embolus (PE) Personal history of pulmonary embolism Factor 5 Leiden mutation, heterozygous (HCC) Primary hypercoagulable state Obesity, Class II, BMI 35-39.9 Obesity, unspecified Presence of intrathecal baclofen pump Other postprocedural status KARAN (obstructive sleep apnea) Obstructive sleep apnea (adult) (pediatric) Mild intermittent asthma with acute exacerbation Unspecified asthma, with exacerbation documented in this encounter [facility]* Diagnosis Encounter to establish care- Primary Other reasons for seeking consultation Incomplete spinal cord injury Unspecified site of spinal cord injury without evidence of spinal bone injury Factor 5 Leiden mutation, heterozygous (HCC) Primary hypercoagulable state Urinary retention Retention of urine, unspecified Neurogenic bladder Neurogenic bladder, NOS Weight gain Abnormal weight gain Factor 5 Leiden mutation, heterozygous (HCC)- Primary Primary hypercoagulable state Incomplete spinal cord injury Unspecified site of spinal cord injury without evidence of spinal bone injury Neurogenic bladder Neurogenic bladder, NOS Weight gain Abnormal weight gain Constipation Unspecified constipation Sinusitis Unspecified sinusitis (chronic) Urinary retention- Primary Retention of urine, unspecified Constipation Unspecified constipation Weight gain Abnormal weight gain Incomplete spinal cord injury Unspecified site of spinal cord injury without evidence of spinal bone injury Foot drop, left Other acquired deformity of ankle and foot Incomplete spinal cord injury- Primary Unspecified site of spinal cord injury without evidence of spinal bone injury Constipation Unspecified constipation Weight gain Abnormal weight gain Weight gain- Primary Abnormal weight gain Incomplete spinal cord injury Unspecified site of spinal cord injury without evidence of spinal bone injury ED (erectile dysfunction) Impotence of organic origin Constipation Unspecified constipation Pre-op evaluation- Primary Preoperative examination, unspecified Spasticity Abnormal involuntary movements Spinal cord injury, T7-T12 (HCC) T7-T12 level spinal cord injury without evidence of spinal bone injury, unspecified Tobacco abuse disorder Tobacco use disorder Asthma, unspecified asthma severity, unspecified whether complicated, unspecified whether persistent History of pulmonary embolus (PE) Personal history of pulmonary embolism Factor 5 Leiden mutation, heterozygous (HCC) Primary hypercoagulable state Obesity, Class II, BMI 35-39.9 Obesity, unspecified Presence of intrathecal baclofen pump Other postprocedural status KARAN (obstructive sleep apnea) Obstructive sleep apnea (adult) (pediatric) Presence of intrathecal baclofen pump- Primary Other postprocedural status Spasm of muscle [facility] Diagnosis Encounter to establish care- Primary Other reasons for seeking consultation Incomplete spinal cord injury Unspecified site of spinal cord injury without evidence of spinal bone injury Factor 5 Leiden mutation, heterozygous (HCC) Primary hypercoagulable state Urinary retention Retention of urine, unspecified Neurogenic bladder Neurogenic bladder, NOS Weight gain Abnormal weight gain Factor 5 Leiden mutation, heterozygous (HCC)- Primary Primary hypercoagulable state Incomplete spinal cord injury Unspecified site of spinal cord injury without evidence of spinal bone injury Neurogenic bladder Neurogenic bladder, NOS Weight gain Abnormal weight gain Constipation Unspecified constipation Sinusitis Unspecified sinusitis (chronic) Urinary retention- Primary Retention of urine, unspecified Constipation Unspecified constipation Weight gain Abnormal weight gain Incomplete spinal cord injury Unspecified site of spinal cord injury without evidence of spinal bone injury Foot drop, left Other acquired deformity of ankle and foot Incomplete spinal cord injury- Primary Unspecified site of spinal cord injury without evidence of spinal bone injury Constipation Unspecified constipation Weight gain Abnormal weight gain Weight gain- Primary Abnormal weight gain Incomplete spinal cord injury Unspecified site of spinal cord injury without evidence of spinal bone injury ED (erectile dysfunction) Impotence of organic origin Constipation Unspecified constipation Pre-op evaluation- Primary Preoperative examination, unspecified Spasticity Abnormal involuntary movements Spinal cord injury, T7-T12 (HCC) T7-T12 level spinal cord injury without evidence of spinal bone injury, unspecified Tobacco abuse disorder Tobacco use disorder Asthma, unspecified asthma severity, unspecified whether complicated, unspecified whether persistent History of pulmonary embolus (PE) Personal history of pulmonary embolism Factor 5 Leiden mutation, heterozygous (HCC) Primary hypercoagulable state Obesity, Class II, BMI 35-39.9 Obesity, unspecified Presence of intrathecal baclofen pump Other postprocedural status KARAN (obstructive sleep apnea) Obstructive sleep apnea (adult) (pediatric) Muscle spasticity- Primary Spasm of muscle Spinal cord injury at T7-T12 level (HCC) [facility] Diagnosis Encounter to establish care- Primary Other reasons for seeking consultation Incomplete spinal cord injury Unspecified site of spinal cord injury without evidence of spinal bone injury Factor 5 Leiden mutation, heterozygous (HCC) Primary hypercoagulable state Urinary retention Retention of urine, unspecified Neurogenic bladder Neurogenic bladder, NOS Weight gain Abnormal weight gain Factor 5 Leiden mutation, heterozygous (HCC)- Primary Primary hypercoagulable state Incomplete spinal cord injury Unspecified site of spinal cord injury without evidence of spinal bone injury Neurogenic bladder Neurogenic bladder, NOS Weight gain Abnormal weight gain Constipation Unspecified constipation Sinusitis Unspecified sinusitis (chronic) Urinary retention- Primary Retention of urine, unspecified Constipation Unspecified constipation Weight gain Abnormal weight gain Incomplete spinal cord injury Unspecified site of spinal cord injury without evidence of spinal bone injury Foot drop, left Other acquired deformity of ankle and foot Incomplete spinal cord injury- Primary Unspecified site of spinal cord injury without evidence of spinal bone injury Constipation Unspecified constipation Weight gain Abnormal weight gain Weight gain- Primary Abnormal weight gain Incomplete spinal cord injury Unspecified site of spinal cord injury without evidence of spinal bone injury ED (erectile dysfunction) Impotence of organic origin Constipation Unspecified constipation Pre-op evaluation- Primary Preoperative examination, unspecified Spasticity Abnormal involuntary movements Spinal cord injury, T7-T12 (HCC) T7-T12 level spinal cord injury without evidence of spinal bone injury, unspecified Tobacco abuse disorder Tobacco use disorder Asthma, unspecified asthma severity, unspecified whether complicated, unspecified whether persistent History of pulmonary embolus (PE) Personal history of pulmonary embolism Factor 5 Leiden mutation, heterozygous (HCC) Primary hypercoagulable state Obesity, Class II, BMI 35-39.9 Obesity, unspecified Presence of intrathecal baclofen pump Other postprocedural status KARAN (obstructive sleep apnea) Obstructive sleep apnea (adult) (pediatric) Spasm of muscle- Primary Presence of intrathecal baclofen pump Other postprocedural status [facility] Encounter to establish care- Primary Other reasons for seeking consultation Incomplete spinal cord injury Unspecified site of spinal cord injury without evidence of spinal bone injury Factor 5 Leiden mutation, heterozygous (HCC) Primary hypercoagulable state Urinary retention Retention of urine, unspecified Neurogenic bladder Neurogenic bladder, NOS Weight gain Abnormal weight gain Factor 5 Leiden mutation, heterozygous (HCC)- Primary Primary hypercoagulable state Incomplete spinal cord injury Unspecified site of spinal cord injury without evidence of spinal bone injury Neurogenic bladder Neurogenic bladder, NOS Weight gain Abnormal weight gain Constipation Unspecified constipation Sinusitis Unspecified sinusitis (chronic) Urinary retention- Primary Retention of urine, unspecified Constipation Unspecified constipation Weight gain Abnormal weight gain Incomplete spinal cord injury Unspecified site of spinal cord injury without evidence of spinal bone injury Foot drop, left Other acquired deformity of ankle and foot Incomplete spinal cord injury- Primary Unspecified site of spinal cord injury without evidence of spinal bone injury Constipation Unspecified constipation Weight gain Abnormal weight gain Weight gain- Primary Abnormal weight gain Incomplete spinal cord injury Unspecified site of spinal cord injury without evidence of spinal bone injury ED (erectile dysfunction) Impotence of organic origin Constipation Unspecified constipation Pre-op evaluation- Primary Preoperative examination, unspecified Spasticity Abnormal involuntary movements Spinal cord injury, T7-T12 (HCC) T7-T12 level spinal cord injury without evidence of spinal bone injury, unspecified Tobacco abuse disorder Tobacco use disorder Asthma, unspecified asthma severity, unspecified whether complicated, unspecified whether persistent History of pulmonary embolus (PE) Personal history of pulmonary embolism Factor 5 Leiden mutation, heterozygous (HCC) Primary hypercoagulable state Obesity, Class II, BMI 35-39.9 Obesity, unspecified Presence of intrathecal baclofen pump Other postprocedural status KARAN (obstructive sleep apnea) Obstructive sleep apnea (adult) (pediatric) Spasm of muscle- Primary Presence of intrathecal baclofen pump Other postprocedural status Spasticity Abnormal involuntary movements [facility] Encounter to establish care- Primary Other reasons for seeking consultation Incomplete spinal cord injury Unspecified site of spinal cord injury without evidence of spinal bone injury Factor 5 Leiden mutation, heterozygous (HCC) Primary hypercoagulable state Urinary retention Retention of urine, unspecified Neurogenic bladder Neurogenic bladder, NOS Weight gain Abnormal weight gain Factor 5 Leiden mutation, heterozygous (HCC)- Primary Primary hypercoagulable state Incomplete spinal cord injury Unspecified site of spinal cord injury without evidence of spinal bone injury Neurogenic bladder Neurogenic bladder, NOS Weight gain Abnormal weight gain Constipation Unspecified constipation Sinusitis Unspecified sinusitis (chronic) Urinary retention- Primary Retention of urine, unspecified Constipation Unspecified constipation Weight gain Abnormal weight gain Incomplete spinal cord injury Unspecified site of spinal cord injury without evidence of spinal bone injury Foot drop, left Other acquired deformity of ankle and foot Incomplete spinal cord injury- Primary Unspecified site of spinal cord injury without evidence of spinal bone injury Constipation Unspecified constipation Weight gain Abnormal weight gain Weight gain- Primary Abnormal weight gain Incomplete spinal cord injury Unspecified site of spinal cord injury without evidence of spinal bone injury ED (erectile dysfunction) Impotence of organic origin Constipation Unspecified constipation Pre-op evaluation- Primary Preoperative examination, unspecified Spasticity Abnormal involuntary movements Spinal cord injury, T7-T12 (HCC) T7-T12 level spinal cord injury without evidence of spinal bone injury, unspecified Tobacco abuse disorder Tobacco use disorder Asthma, unspecified asthma severity, unspecified whether complicated, unspecified whether persistent History of pulmonary embolus (PE) Personal history of pulmonary embolism Factor 5 Leiden mutation, heterozygous (HCC) Primary hypercoagulable state Obesity, Class II, BMI 35-39.9 Obesity, unspecified Presence of intrathecal baclofen pump Other postprocedural status KARAN (obstructive sleep apnea) Obstructive sleep apnea (adult) (pediatric) Spinal cord injury at T7-T12 level ([facility])- Primary Presence of intrathecal baclofen pump Other postprocedural status Spasticity Abnormal involuntary movements Spinal cord injury, T7-T12 (HCC)- Primary T7-T12 level spinal cord injury without evidence of spinal bone injury, unspecified Paraplegia ([facility]) Paraplegia Factor 5 Leiden mutation, heterozygous (HCC) Primary hypercoagulable state Tobacco abuse disorder Tobacco use disorder KARAN (obstructive sleep apnea) Obstructive sleep apnea (adult) (pediatric) Chronic pain syndrome Spasticity Abnormal involuntary movements [facility] Encounter to establish care- Primary Other reasons for seeking consultation Incomplete spinal cord injury Unspecified site of spinal cord injury without evidence of spinal bone injury Factor 5 Leiden mutation, heterozygous (HCC) Primary hypercoagulable state Urinary retention Retention of urine, unspecified Neurogenic bladder Neurogenic bladder, NOS Weight gain Abnormal weight gain Factor 5 Leiden mutation, heterozygous (HCC)- Primary Primary hypercoagulable state Incomplete spinal cord injury Unspecified site of spinal cord injury without evidence of spinal bone injury Neurogenic bladder Neurogenic bladder, NOS Weight gain Abnormal weight gain Constipation Unspecified constipation Sinusitis Unspecified sinusitis (chronic) Urinary retention- Primary Retention of urine, unspecified Constipation Unspecified constipation Weight gain Abnormal weight gain Incomplete spinal cord injury Unspecified site of spinal cord injury without evidence of spinal bone injury Foot drop, left Other acquired deformity of ankle and foot Incomplete spinal cord injury- Primary Unspecified site of spinal cord injury without evidence of spinal bone injury Constipation Unspecified constipation Weight gain Abnormal weight gain Weight gain- Primary Abnormal weight gain Incomplete spinal cord injury Unspecified site of spinal cord injury without evidence of spinal bone injury ED (erectile dysfunction) Impotence of organic origin Constipation Unspecified constipation Pre-op evaluation- Primary Preoperative examination, unspecified Spasticity Abnormal involuntary movements Spinal cord injury, T7-T12 (HCC) T7-T12 level spinal cord injury without evidence of spinal bone injury, unspecified Tobacco abuse disorder Tobacco use disorder Asthma, unspecified asthma severity, unspecified whether complicated, unspecified whether persistent History of pulmonary embolus (PE) Personal history of pulmonary embolism Factor 5 Leiden mutation, heterozygous (HCC) Primary hypercoagulable state Obesity, Class II, BMI 35-39.9 Obesity, unspecified Presence of intrathecal baclofen pump Other postprocedural status KARAN (obstructive sleep apnea) Obstructive sleep apnea (adult) (pediatric) Spinal cord injury, T7-T12 (HCC)- Primary T7-T12 level spinal cord injury without evidence of spinal bone injury, unspecified Paraplegia (HCC) Paraplegia Factor 5 Leiden mutation, heterozygous (HCC) Primary hypercoagulable state Tobacco abuse disorder Tobacco use disorder KARAN (obstructive sleep apnea) Obstructive sleep apnea (adult) (pediatric) Chronic pain syndrome Asthma, unspecified asthma severity, unspecified whether complicated, unspecified whether persistent Neurogenic bladder Neurogenic bladder, NOS Recurrent UTI Urinary tract infection, site not specified History of pulmonary embolus (PE) Personal history of pulmonary embolism Pre-op evaluation Preoperative examination, unspecified Spasticity Abnormal involuntary movements * Assessment & Plan Note - Juani Willingham MD - 07/09/2024 2:27 PM ESTAssociated Problem(s): History of pulmonary embolus (PE) Assessment: See Factor 5 Leiden * Assessment & Plan Note - Juani Willingham MD - 07/09/2024 2:26 PM ESTAssociated Problem(s): Recurrent UTI Assessment: Frequent UTIs requiring antibiotics Denies current symptoms * Assessment & Plan Note - Juani Willingham MD - 07/09/2024 2:25 PM ESTAssociated Problem(s): Neurogenic bladder Assessment: Uses straight cath * Assessment & Plan Note - Juani Willingham MD - 07/09/2024 2:24 PM ESTAssociated Problem(s): Asthma Assessment: Mild, rarely had to use albuterol nebulizer * Assessment & Plan Note - Juani Willingham MD - 07/08/2024 7:24 PM ESTAssociated Problem(s): Chronic pain syndrome Assessment: On pregabalin and morphine * Assessment & Plan Note - Juani Willingham MD - 07/08/2024 7:23 PM ESTAssociated Problem(s): KARAN (obstructive sleep apnea) Assessment: Not on CPAP * Assessment & Plan Note - Juani Willingham MD - 07/08/2024 7:23 PM ESTAssociated Problem(s): Tobacco abuse disorder Assessment: Current smoker 1ppd for 30 years * Assessment & Plan Note - Juani Willingham MD - 07/08/2024 7:22 PM ESTAssociated Problem(s): Factor 5 Leiden mutation, heterozygous (HCC) Assessment: Hx of DVT and PE's s/p IVC filter On xarelto - For previous surgeries, Dr. Trimble (chain dyer) stated ok for patient to stop xarelto 3 days prior to procedure. Reached out to Dr. Roque (prescriber and PCP said to discontinue the day before surgery and day of) Reached out to Ceferino Jones PA-C - stated that there higher potential for bleeding and need to stopxarelto for 3 days before surgery. * Assessment & Plan Note - Juani Willingham MD - 07/08/2024 7:20 PM ESTAssociated Problem(s): Paraplegia (HCC) Assessment: see spinal cord injury * Assessment & Plan Note - Juani Willingham MD - 07/08/2024 7:20 PM ESTAssociated Problem(s): Spinal cord injury, T7-T12 ([facility]) Assessment: 07/20 MRSA abscess C/b paraplegia now wheelchair dependent Endorses muscle spasms s/p intrathecal baclofen pump placement On baclofen tablets and tizanidine [facility] Diagnosis Encounter to establish care- Primary Other reasons for seeking consultation Incomplete spinal cord injury Unspecified site of spinal cord injury without evidence of spinal bone injury Factor 5 Leiden mutation, heterozygous (HCC) Primary hypercoagulable state Urinary retention Retention of urine, unspecified Neurogenic bladder Neurogenic bladder, NOS Weight gain Abnormal weight gain Factor 5 Leiden mutation, heterozygous (HCC)- Primary Primary hypercoagulable state Incomplete spinal cord injury Unspecified site of spinal cord injury without evidence of spinal bone injury Neurogenic bladder Neurogenic bladder, NOS Weight gain Abnormal weight gain Constipation Unspecified constipation Sinusitis Unspecified sinusitis (chronic) Urinary retention- Primary Retention of urine, unspecified Constipation Unspecified constipation Weight gain Abnormal weight gain Incomplete spinal cord injury Unspecified site of spinal cord injury without evidence of spinal bone injury Foot drop, left Other acquired deformity of ankle and foot Incomplete spinal cord injury- Primary Unspecified site of spinal cord injury without evidence of spinal bone injury Constipation Unspecified constipation Weight gain Abnormal weight gain Weight gain- Primary Abnormal weight gain Incomplete spinal cord injury Unspecified site of spinal cord injury without evidence of spinal bone injury ED (erectile dysfunction) Impotence of organic origin Constipation Unspecified constipation Pre-op evaluation- Primary Preoperative examination, unspecified Spasticity Abnormal involuntary movements Spinal cord injury, T7-T12 ([facility]) T7-T12 level spinal cord injury without evidence of spinal bone injury, unspecified Tobacco abuse disorder Tobacco use disorder Asthma, unspecified asthma severity, unspecified whether complicated, unspecified whether persistent History of pulmonary embolus (PE) Personal history of pulmonary embolism Factor 5 Leiden mutation, heterozygous (HCC) Primary hypercoagulable state Obesity, Class II, BMI 35-39.9 Obesity, unspecified Presence of intrathecal baclofen pump Other postprocedural status KARAN (obstructive sleep apnea) Obstructive sleep apnea (adult) (pediatric) Spasticity- Primary Abnormal involuntary movements Spinal cord injury, T7-T12 (HCC)- Primary T7-T12 level spinal cord injury without evidence of spinal bone injury, unspecified Paraplegia (HCC) Paraplegia Factor 5 Leiden mutation, heterozygous (HCC) Primary hypercoagulable state Tobacco abuse disorder Tobacco use disorder KARAN (obstructive sleep apnea) Obstructive sleep apnea (adult) (pediatric) Chronic pain syndrome Asthma, unspecified asthma severity, unspecified whether complicated, unspecified whether persistent Neurogenic bladder Neurogenic bladder, NOS Recurrent UTI Urinary tract infection, site not specified History of pulmonary embolus (PE) Personal history of pulmonary embolism Pre-op evaluation Preoperative examination, unspecified Spasticity Abnormal involuntary movements [facility] Diagnosis Encounter to establish care- Primary Other reasons for seeking consultation Incomplete spinal cord injury Unspecified site of spinal cord injury without evidence of spinal bone injury Factor 5 Leiden mutation, heterozygous (HCC) Primary hypercoagulable state Urinary retention Retention of urine, unspecified Neurogenic bladder Neurogenic bladder, NOS Weight gain Abnormal weight gain Factor 5 Leiden mutation, heterozygous (HCC)- Primary Primary hypercoagulable state Incomplete spinal cord injury Unspecified site of spinal cord injury without evidence of spinal bone injury Neurogenic bladder Neurogenic bladder, NOS Weight gain Abnormal weight gain Constipation Unspecified constipation Sinusitis Unspecified sinusitis (chronic) Urinary retention- Primary Retention of urine, unspecified Constipation Unspecified constipation Weight gain Abnormal weight gain Incomplete spinal cord injury Unspecified site of spinal cord injury without evidence of spinal bone injury Foot drop, left Other acquired deformity of ankle and foot Incomplete spinal cord injury- Primary Unspecified site of spinal cord injury without evidence of spinal bone injury Constipation Unspecified constipation Weight gain Abnormal weight gain Weight gain- Primary Abnormal weight gain Incomplete spinal cord injury Unspecified site of spinal cord injury without evidence of spinal bone injury ED (erectile dysfunction) Impotence of organic origin Constipation Unspecified constipation Pre-op evaluation- Primary Preoperative examination, unspecified Spasticity Abnormal involuntary movements Spinal cord injury, T7-T12 (HCC) T7-T12 level spinal cord injury without evidence of spinal bone injury, unspecified Tobacco abuse disorder Tobacco use disorder Asthma, unspecified asthma severity, unspecified whether complicated, unspecified whether persistent History of pulmonary embolus (PE) Personal history of pulmonary embolism Factor 5 Leiden mutation, heterozygous (HCC) Primary hypercoagulable state Obesity, Class II, BMI 35-39.9 Obesity, unspecified Presence of intrathecal baclofen pump Other postprocedural status KARAN (obstructive sleep apnea) Obstructive sleep apnea (adult) (pediatric) Spinal cord injury, T7-T12 (HCC)- Primary T7-T12 level spinal cord injury without evidence of spinal bone injury, unspecified Paraplegia (HCC) Paraplegia Factor 5 Leiden mutation, heterozygous (HCC) Primary hypercoagulable state Tobacco abuse disorder Tobacco use disorder KARAN (obstructive sleep apnea) Obstructive sleep apnea (adult) (pediatric) Chronic pain syndrome Asthma, unspecified asthma severity, unspecified whether complicated, unspecified whether persistent Neurogenic bladder Neurogenic bladder, NOS Recurrent UTI Urinary tract infection, site not specified History of pulmonary embolus (PE) Personal history of pulmonary embolism Pre-op evaluation Preoperative examination, unspecified Paraplegia (HCC)- Primary Paraplegia Spinal cord injury at T7-T12 level (HCC) Presence of intrathecal baclofen pump Other postprocedural status [facility] Encounter to establish care- Primary Other reasons for seeking consultation Incomplete spinal cord injury Unspecified site of spinal cord injury without evidence of spinal bone injury Factor 5 Leiden mutation, heterozygous (HCC) Primary hypercoagulable state Urinary retention Retention of urine, unspecified Neurogenic bladder Neurogenic bladder, NOS Weight gain Abnormal weight gain Factor 5 Leiden mutation, heterozygous (HCC)- Primary Primary hypercoagulable state Incomplete spinal cord injury Unspecified site of spinal cord injury without evidence of spinal bone injury Neurogenic bladder Neurogenic bladder, NOS Weight gain Abnormal weight gain Constipation Unspecified constipation Sinusitis Unspecified sinusitis (chronic) Urinary retention- Primary Retention of urine, unspecified Constipation Unspecified constipation Weight gain Abnormal weight gain Incomplete spinal cord injury Unspecified site of spinal cord injury without evidence of spinal bone injury Foot drop, left Other acquired deformity of ankle and foot Incomplete spinal cord injury- Primary Unspecified site of spinal cord injury without evidence of spinal bone injury Constipation Unspecified constipation Weight gain Abnormal weight gain Weight gain- Primary Abnormal weight gain Incomplete spinal cord injury Unspecified site of spinal cord injury without evidence of spinal bone injury ED (erectile dysfunction) Impotence of organic origin Constipation Unspecified constipation Pre-op evaluation- Primary Preoperative examination, unspecified Spasticity Abnormal involuntary movements Spinal cord injury, T7-T12 (HCC) T7-T12 level spinal cord injury without evidence of spinal bone injury, unspecified Tobacco abuse disorder Tobacco use disorder Asthma, unspecified asthma severity, unspecified whether complicated, unspecified whether persistent History of pulmonary embolus (PE) Personal history of pulmonary embolism Factor 5 Leiden mutation, heterozygous (HCC) Primary hypercoagulable state Obesity, Class II, BMI 35-39.9 Obesity, unspecified Presence of intrathecal baclofen pump Other postprocedural status KARAN (obstructive sleep apnea) Obstructive sleep apnea (adult) (pediatric) Baclofen pump failure, subsequent encounter- Primary Spasticity Abnormal involuntary movements Therapeutic drug monitoring Encounter for therapeutic drug monitoring Infected drug delivery pump, subsequent encounter Baclofen pump failure, subsequent encounter Chronic pain syndrome Sepsis due to skin infection (HCC) (HCC) Impaired instrumental activities of daily living Debility, unspecified Gait abnormality Abnormality of gait Foot drop, left Other acquired deformity of ankle and foot Asthma Unspecified asthma Chronic pain syndrome Constipation Unspecified constipation Factor 5 Leiden mutation, heterozygous (HCC) Primary hypercoagulable state Gait abnormality Abnormality of gait History of pulmonary embolus (PE) Personal history of pulmonary embolism Impaired functional mobility, balance, gait, and endurance Impaired instrumental activities of daily living Debility, unspecified Nicotine use disorder, F17.2 Tobacco use disorder KARAN (obstructive sleep apnea) Obstructive sleep apnea (adult) (pediatric) Paraparesis of both lower limbs (HCC) Paraplegia Neurogenic bladder Neurogenic bladder, NOS Presence of intrathecal baclofen pump Other postprocedural status Tobacco abuse disorder Tobacco use disorder Spinal cord injury, T7-T12 (HCC) T7-T12 level spinal cord injury without evidence of spinal bone injury, unspecified Spasticity Abnormal involuntary movements Infected drug delivery pump, subsequent encounter Therapeutic drug monitoring Encounter for therapeutic drug monitoring Spasm of muscle- Primary Presence of intrathecal baclofen pump Other postprocedural status Spinal cord injury, T7-T12 (HCC)- Primary T7-T12 level spinal cord injury without evidence of spinal bone injury, unspecified Paraplegia (HCC) Paraplegia Factor 5 Leiden mutation, heterozygous (HCC) Primary hypercoagulable state Tobacco abuse disorder Tobacco use disorder KARAN (obstructive sleep apnea) Obstructive sleep apnea (adult) (pediatric) Chronic pain syndrome Asthma, unspecified asthma severity, unspecified whether complicated, unspecified whether persistent Neurogenic bladder Neurogenic bladder, NOS Recurrent UTI Urinary tract infection, site not specified History of pulmonary embolus (PE) Personal history of pulmonary embolism Pre-op evaluation Preoperative examination, unspecified [facility] Diagnosis Encounter to establish care- Primary Other reasons for seeking consultation Incomplete spinal cord injury Unspecified site of spinal cord injury without evidence of spinal bone injury Factor 5 Leiden mutation, heterozygous (HCC) Primary hypercoagulable state Urinary retention Retention of urine, unspecified Neurogenic bladder Neurogenic bladder, NOS Weight gain Abnormal weight gain Factor 5 Leiden mutation, heterozygous (HCC)- Primary Primary hypercoagulable state Incomplete spinal cord injury Unspecified site of spinal cord injury without evidence of spinal bone injury Neurogenic bladder Neurogenic bladder, NOS Weight gain Abnormal weight gain Constipation Unspecified constipation Sinusitis Unspecified sinusitis (chronic) Urinary retention- Primary Retention of urine, unspecified Constipation Unspecified constipation Weight gain Abnormal weight gain Incomplete spinal cord injury Unspecified site of spinal cord injury without evidence of spinal bone injury Foot drop, left Other acquired deformity of ankle and foot Incomplete spinal cord injury- Primary Unspecified site of spinal cord injury without evidence of spinal bone injury Constipation Unspecified constipation Weight gain Abnormal weight gain Weight gain- Primary Abnormal weight gain Incomplete spinal cord injury Unspecified site of spinal cord injury without evidence of spinal bone injury ED (erectile dysfunction) Impotence of organic origin Constipation Unspecified constipation Pre-op evaluation- Primary Preoperative examination, unspecified Spasticity Abnormal involuntary movements Spinal cord injury, T7-T12 (HCC) T7-T12 level spinal cord injury without evidence of spinal bone injury, unspecified Tobacco abuse disorder Tobacco use disorder Asthma, unspecified asthma severity, unspecified whether complicated, unspecified whether persistent History of pulmonary embolus (PE) Personal history of pulmonary embolism Factor 5 Leiden mutation, heterozygous (HCC) Primary hypercoagulable state Obesity, Class II, BMI 35-39.9 Obesity, unspecified Presence of intrathecal baclofen pump Other postprocedural status KARAN (obstructive sleep apnea) Obstructive sleep apnea (adult) (pediatric) Baclofen pump failure, subsequent encounter- Primary Spasticity Abnormal involuntary movements Therapeutic drug monitoring Encounter for therapeutic drug monitoring Infected drug delivery pump, subsequent encounter Baclofen pump failure, subsequent encounter Chronic pain syndrome Sepsis due to skin infection (HCC) (HCC) Impaired instrumental activities of daily living Debility, unspecified Gait abnormality Abnormality of gait Foot drop, left Other acquired deformity of ankle and foot Asthma Unspecified asthma Chronic pain syndrome Constipation Unspecified constipation Factor 5 Leiden mutation, heterozygous (HCC) Primary hypercoagulable state Gait abnormality Abnormality of gait History of pulmonary embolus (PE) Personal history of pulmonary embolism Impaired functional mobility, balance, gait, and endurance Impaired instrumental activities of daily living Debility, unspecified Nicotine use disorder, F17.2 Tobacco use disorder KARAN (obstructive sleep apnea) Obstructive sleep apnea (adult) (pediatric) Paraparesis of both lower limbs (HCC) Paraplegia Neurogenic bladder Neurogenic bladder, NOS Presence of intrathecal baclofen pump Other postprocedural status Tobacco abuse disorder Tobacco use disorder Spinal cord injury, T7-T12 (HCC) T7-T12 level spinal cord injury without evidence of spinal bone injury, unspecified Spasticity Abnormal involuntary movements Infected drug delivery pump, subsequent encounter Therapeutic drug monitoring Encounter for therapeutic drug monitoring Spinal cord injury, T7-T12 ([facility])- Primary T7-T12 level spinal cord injury without evidence of spinal bone injury, unspecified Paraplegia (HCC) Paraplegia Factor 5 Leiden mutation, heterozygous (HCC) Primary hypercoagulable state Tobacco abuse disorder Tobacco use disorder KRAAN (obstructive sleep apnea) Obstructive sleep apnea (adult) (pediatric) Chronic pain syndrome Asthma, unspecified asthma severity, unspecified whether complicated, unspecified whether persistent Neurogenic bladder Neurogenic bladder, NOS Recurrent UTI Urinary tract infection, site not specified History of pulmonary embolus (PE) Personal history of pulmonary embolism Pre-op evaluation Preoperative examination, unspecified Therapeutic drug monitoring Encounter for therapeutic drug monitoring Infected drug delivery pump, subsequent encounter Baclofen pump failure, subsequent encounter Chronic pain syndrome Sepsis due to skin infection (HCC) (HCC) Impaired instrumental activities of daily living Debility, unspecified Gait abnormality Abnormality of gait Foot drop, left Other acquired deformity of ankle and foot [facility] Encounter to establish care- Primary Other reasons for seeking consultation Incomplete spinal cord injury Unspecified site of spinal cord injury without evidence of spinal bone injury Factor 5 Leiden mutation, heterozygous (HCC) Primary hypercoagulable state Urinary retention Retention of urine, unspecified Neurogenic bladder Neurogenic bladder, NOS Weight gain Abnormal weight gain Factor 5 Leiden mutation, heterozygous (HCC)- Primary Primary hypercoagulable state Incomplete spinal cord injury Unspecified site of spinal cord injury without evidence of spinal bone injury Neurogenic bladder Neurogenic bladder, NOS Weight gain Abnormal weight gain Constipation Unspecified constipation Sinusitis Unspecified sinusitis (chronic) Urinary retention- Primary Retention of urine, unspecified Constipation Unspecified constipation Weight gain Abnormal weight gain Incomplete spinal cord injury Unspecified site of spinal cord injury without evidence of spinal bone injury Foot drop, left Other acquired deformity of ankle and foot Incomplete spinal cord injury- Primary Unspecified site of spinal cord injury without evidence of spinal bone injury Constipation Unspecified constipation Weight gain Abnormal weight gain Weight gain- Primary Abnormal weight gain Incomplete spinal cord injury Unspecified site of spinal cord injury without evidence of spinal bone injury ED (erectile dysfunction) Impotence of organic origin Constipation Unspecified constipation Pre-op evaluation- Primary Preoperative examination, unspecified Spasticity Abnormal involuntary movements Spinal cord injury, T7-T12 (HCC) T7-T12 level spinal cord injury without evidence of spinal bone injury, unspecified Tobacco abuse disorder Tobacco use disorder Asthma, unspecified asthma severity, unspecified whether complicated, unspecified whether persistent History of pulmonary embolus (PE) Personal history of pulmonary embolism Factor 5 Leiden mutation, heterozygous (HCC) Primary hypercoagulable state Obesity, Class II, BMI 35-39.9 Obesity, unspecified Presence of intrathecal baclofen pump Other postprocedural status KARAN (obstructive sleep apnea) Obstructive sleep apnea (adult) (pediatric) Baclofen pump failure, subsequent encounter- Primary Spasticity Abnormal involuntary movements Therapeutic drug monitoring Encounter for therapeutic drug monitoring Infected drug delivery pump, subsequent encounter Baclofen pump failure, subsequent encounter Chronic pain syndrome Sepsis due to skin infection (HCC) (HCC) Impaired instrumental activities of daily living Debility, unspecified Gait abnormality Abnormality of gait Foot drop, left Other acquired deformity of ankle and foot Asthma Unspecified asthma Chronic pain syndrome Constipation Unspecified constipation Factor 5 Leiden mutation, heterozygous (HCC) Primary hypercoagulable state Gait abnormality Abnormality of gait History of pulmonary embolus (PE) Personal history of pulmonary embolism Impaired functional mobility, balance, gait, and endurance Impaired instrumental activities of daily living Debility, unspecified Nicotine use disorder, F17.2 Tobacco use disorder KARAN (obstructive sleep apnea) Obstructive sleep apnea (adult) (pediatric) Paraparesis of both lower limbs (HCC) Paraplegia Neurogenic bladder Neurogenic bladder, NOS Presence of intrathecal baclofen pump Other postprocedural status Tobacco abuse disorder Tobacco use disorder Spinal cord injury, T7-T12 (HCC) T7-T12 level spinal cord injury without evidence of spinal bone injury, unspecified Spasticity Abnormal involuntary movements Infected drug delivery pump, subsequent encounter Therapeutic drug monitoring Encounter for therapeutic drug monitoring Spinal cord injury, T7-T12 (HCC)- Primary T7-T12 level spinal cord injury without evidence of spinal bone injury, unspecified Paraplegia (HCC) Paraplegia Factor 5 Leiden mutation, heterozygous (HCC) Primary hypercoagulable state Tobacco abuse disorder Tobacco use disorder KARAN (obstructive sleep apnea) Obstructive sleep apnea (adult) (pediatric) Chronic pain syndrome Asthma, unspecified asthma severity, unspecified whether complicated, unspecified whether persistent Neurogenic bladder Neurogenic bladder, NOS Recurrent UTI Urinary tract infection, site not specified History of pulmonary embolus (PE) Personal history of pulmonary embolism Pre-op evaluation Preoperative examination, unspecified Paraplegia (HCC)- Primary Paraplegia Spasticity Abnormal involuntary movements T4 spinal cord injury, sequela ([facility]) [facility] Encounter to establish care- Primary Other reasons for seeking consultation Incomplete spinal cord injury Unspecified site of spinal cord injury without evidence of spinal bone injury Factor 5 Leiden mutation, heterozygous (HCC) Primary hypercoagulable state Urinary retention Retention of urine, unspecified Neurogenic bladder Neurogenic bladder, NOS Weight gain Abnormal weight gain Factor 5 Leiden mutation, heterozygous (HCC)- Primary Primary hypercoagulable state Incomplete spinal cord injury Unspecified site of spinal cord injury without evidence of spinal bone injury Neurogenic bladder Neurogenic bladder, NOS Weight gain Abnormal weight gain Constipation Unspecified constipation Sinusitis Unspecified sinusitis (chronic) Urinary retention- Primary Retention of urine, unspecified Constipation Unspecified constipation Weight gain Abnormal weight gain Incomplete spinal cord injury Unspecified site of spinal cord injury without evidence of spinal bone injury Foot drop, left Other acquired deformity of ankle and foot Incomplete spinal cord injury- Primary Unspecified site of spinal cord injury without evidence of spinal bone injury Constipation Unspecified constipation Weight gain Abnormal weight gain Weight gain- Primary Abnormal weight gain Incomplete spinal cord injury Unspecified site of spinal cord injury without evidence of spinal bone injury ED (erectile dysfunction) Impotence of organic origin Constipation Unspecified constipation Pre-op evaluation- Primary Preoperative examination, unspecified Spasticity Abnormal involuntary movements Spinal cord injury, T7-T12 (HCC) T7-T12 level spinal cord injury without evidence of spinal bone injury, unspecified Tobacco abuse disorder Tobacco use disorder Asthma, unspecified asthma severity, unspecified whether complicated, unspecified whether persistent History of pulmonary embolus (PE) Personal history of pulmonary embolism Factor 5 Leiden mutation, heterozygous (HCC) Primary hypercoagulable state Obesity, Class II, BMI 35-39.9 Obesity, unspecified Presence of intrathecal baclofen pump Other postprocedural status KARAN (obstructive sleep apnea) Obstructive sleep apnea (adult) (pediatric) Baclofen pump failure, subsequent encounter- Primary Spasticity Abnormal involuntary movements Therapeutic drug monitoring Encounter for therapeutic drug monitoring Infected drug delivery pump, subsequent encounter Baclofen pump failure, subsequent encounter Chronic pain syndrome Sepsis due to skin infection (HCC) (HCC) Impaired instrumental activities of daily living Debility, unspecified Gait abnormality Abnormality of gait Foot drop, left Other acquired deformity of ankle and foot Asthma Unspecified asthma Chronic pain syndrome Constipation Unspecified constipation Factor 5 Leiden mutation, heterozygous (HCC) Primary hypercoagulable state Gait abnormality Abnormality of gait History of pulmonary embolus (PE) Personal history of pulmonary embolism Impaired functional mobility, balance, gait, and endurance Impaired instrumental activities of daily living Debility, unspecified Nicotine use disorder, F17.2 Tobacco use disorder KARAN (obstructive sleep apnea) Obstructive sleep apnea (adult) (pediatric) Paraparesis of both lower limbs (HCC) Paraplegia Neurogenic bladder Neurogenic bladder, NOS Presence of intrathecal baclofen pump Other postprocedural status Tobacco abuse disorder Tobacco use disorder Spinal cord injury, T7-T12 (HCC) T7-T12 level spinal cord injury without evidence of spinal bone injury, unspecified Spasticity Abnormal involuntary movements Infected drug delivery pump, subsequent encounter Therapeutic drug monitoring Encounter for therapeutic drug monitoring Spinal cord injury, T7-T12 (HCC)- Primary T7-T12 level spinal cord injury without evidence of spinal bone injury, unspecified Paraplegia (HCC) Paraplegia Factor 5 Leiden mutation, heterozygous (HCC) Primary hypercoagulable state Tobacco abuse disorder Tobacco use disorder KARAN (obstructive sleep apnea) Obstructive sleep apnea (adult) (pediatric) Chronic pain syndrome Asthma, unspecified asthma severity, unspecified whether complicated, unspecified whether persistent Neurogenic bladder Neurogenic bladder, NOS Recurrent UTI Urinary tract infection, site not specified History of pulmonary embolus (PE) Personal history of pulmonary embolism Pre-op evaluation Preoperative examination, unspecified Paraplegia (HCC)- Primary Paraplegia Spasticity Abnormal involuntary movements Spasm of muscle Impaired mobility Other ill-defined conditions [facility] En[facility] to establish care- Primary Other reasons for seeking consultation Incomplete spinal cord injury Unspecified site of spinal cord injury without evidence of spinal bone injury Factor 5 Leiden mutation, heterozygous (HCC) Primary hypercoagulable state Urinary retention Retention of urine, unspecified Neurogenic bladder Neurogenic bladder, NOS Weight gain Abnormal weight gain Factor 5 Leiden mutation, heterozygous (HCC)- Primary Primary hypercoagulable state Incomplete spinal cord injury Unspecified site of spinal cord injury without evidence of spinal bone injury Neurogenic bladder Neurogenic bladder, NOS Weight gain Abnormal weight gain Constipation Unspecified constipation Sinusitis Unspecified sinusitis (chronic) Urinary retention- Primary Retention of urine, unspecified Constipation Unspecified constipation Weight gain Abnormal weight gain Incomplete spinal cord injury Unspecified site of spinal cord injury without evidence of spinal bone injury Foot drop, left Other acquired deformity of ankle and foot Incomplete spinal cord injury- Primary Unspecified site of spinal cord injury without evidence of spinal bone injury Constipation Unspecified constipation Weight gain Abnormal weight gain Weight gain- Primary Abnormal weight gain Incomplete spinal cord injury Unspecified site of spinal cord injury without evidence of spinal bone injury ED (erectile dysfunction) Impotence of organic origin Constipation Unspecified constipation Pre-op evaluation- Primary Preoperative examination, unspecified Spasticity Abnormal involuntary movements Spinal cord injury, T7-T12 (HCC) T7-T12 level spinal cord injury without evidence of spinal bone injury, unspecified Tobacco abuse disorder Tobacco use disorder Asthma, unspecified asthma severity, unspecified whether complicated, unspecified whether persistent History of pulmonary embolus (PE) Personal history of pulmonary embolism Factor 5 Leiden mutation, heterozygous (HCC) Primary hypercoagulable state Obesity, Class II, BMI 35-39.9 Obesity, unspecified Presence of intrathecal baclofen pump Other postprocedural status KARAN (obstructive sleep apnea) Obstructive sleep apnea (adult) (pediatric) Baclofen pump failure, subsequent encounter- Primary Spasticity Abnormal involuntary movements Therapeutic drug monitoring Encounter for therapeutic drug monitoring Infected drug delivery pump, subsequent encounter Baclofen pump failure, subsequent encounter Chronic pain syndrome Sepsis due to skin infection (HCC) (HCC) Impaired instrumental activities of daily living Debility, unspecified Gait abnormality Abnormality of gait Foot drop, left Other acquired deformity of ankle and foot Asthma Unspecified asthma Chronic pain syndrome Constipation Unspecified constipation Factor 5 Leiden mutation, heterozygous (HCC) Primary hypercoagulable state Gait abnormality Abnormality of gait History of pulmonary embolus (PE) Personal history of pulmonary embolism Impaired functional mobility, balance, gait, and endurance Impaired instrumental activities of daily living Debility, unspecified Nicotine use disorder, F17.2 Tobacco use disorder KARAN (obstructive sleep apnea) Obstructive sleep apnea (adult) (pediatric) Paraparesis of both lower limbs (HCC) Paraplegia Neurogenic bladder Neurogenic bladder, NOS Presence of intrathecal baclofen pump Other postprocedural status Tobacco abuse disorder Tobacco use disorder Spinal cord injury, T7-T12 (HCC) T7-T12 level spinal cord injury without evidence of spinal bone injury, unspecified Spasticity Abnormal involuntary movements Infected drug delivery pump, subsequent encounter Therapeutic drug monitoring Encounter for therapeutic drug monitoring Spinal cord injury, T7-T12 (HCC)- Primary T7-T12 level spinal cord injury without evidence of spinal bone injury, unspecified Paraplegia (HCC) Paraplegia Factor 5 Leiden mutation, heterozygous (HCC) Primary hypercoagulable state Tobacco abuse disorder Tobacco use disorder KARAN (obstructive sleep apnea) Obstructive sleep apnea (adult) (pediatric) Chronic pain syndrome Asthma, unspecified asthma severity, unspecified whether complicated, unspecified whether persistent Neurogenic bladder Neurogenic bladder, NOS Recurrent UTI Urinary tract infection, site not specified History of pulmonary embolus (PE) Personal history of pulmonary embolism Pre-op evaluation Preoperative examination, unspecified T4 spinal cord injury, sequela (HCC)- Primary Muscle spasticity Spasm of muscle Pain of both shoulder joints [facility] En[facility] to establish care- Primary Other reasons for seeking consultation Incomplete spinal cord injury Unspecified site of spinal cord injury without evidence of spinal bone injury Factor 5 Leiden mutation, heterozygous (HCC) Primary hypercoagulable state Urinary retention Retention of urine, unspecified Neurogenic bladder Neurogenic bladder, NOS Weight gain Abnormal weight gain Factor 5 Leiden mutation, heterozygous (HCC)- Primary Primary hypercoagulable state Incomplete spinal cord injury Unspecified site of spinal cord injury without evidence of spinal bone injury Neurogenic bladder Neurogenic bladder, NOS Weight gain Abnormal weight gain Constipation Unspecified constipation Sinusitis Unspecified sinusitis (chronic) Urinary retention- Primary Retention of urine, unspecified Constipation Unspecified constipation Weight gain Abnormal weight gain Incomplete spinal cord injury Unspecified site of spinal cord injury without evidence of spinal bone injury Foot drop, left Other acquired deformity of ankle and foot Incomplete spinal cord injury- Primary Unspecified site of spinal cord injury without evidence of spinal bone injury Constipation Unspecified constipation Weight gain Abnormal weight gain Weight gain- Primary Abnormal weight gain Incomplete spinal cord injury Unspecified site of spinal cord injury without evidence of spinal bone injury ED (erectile dysfunction) Impotence of organic origin Constipation Unspecified constipation Pre-op evaluation- Primary Preoperative examination, unspecified Spasticity Abnormal involuntary movements Spinal cord injury, T7-T12 (HCC) T7-T12 level spinal cord injury without evidence of spinal bone injury, unspecified Tobacco abuse disorder Tobacco use disorder Asthma, unspecified asthma severity, unspecified whether complicated, unspecified whether persistent History of pulmonary embolus (PE) Personal history of pulmonary embolism Factor 5 Leiden mutation, heterozygous (HCC) Primary hypercoagulable state Obesity, Class II, BMI 35-39.9 Obesity, unspecified Presence of intrathecal baclofen pump Other postprocedural status KARAN (obstructive sleep apnea) Obstructive sleep apnea (adult) (pediatric) Baclofen pump failure, subsequent encounter- Primary Spasticity Abnormal involuntary movements Therapeutic drug monitoring Encounter for therapeutic drug monitoring Infected drug delivery pump, subsequent encounter Baclofen pump failure, subsequent encounter Chronic pain syndrome Sepsis due to skin infection ([facility]) ([facility]) Impaired instrumental activities of daily living Debility, unspecified Gait abnormality Abnormality of gait Foot drop, left Other acquired deformity of ankle and foot Asthma Unspecified asthma Chronic pain syndrome Constipation Unspecified constipation Factor 5 Leiden mutation, heterozygous (HCC) Primary hypercoagulable state Gait abnormality Abnormality of gait History of pulmonary embolus (PE) Personal history of pulmonary embolism Impaired functional mobility, balance, gait, and endurance Impaired instrumental activities of daily living Debility, unspecified Nicotine use disorder, F17.2 Tobacco use disorder KARAN (obstructive sleep apnea) Obstructive sleep apnea (adult) (pediatric) Paraparesis of both lower limbs (HCC) Paraplegia Neurogenic bladder Neurogenic bladder, NOS Presence of intrathecal baclofen pump Other postprocedural status Tobacco abuse disorder Tobacco use disorder Spinal cord injury, T7-T12 (HCC) T7-T12 level spinal cord injury without evidence of spinal bone injury, unspecified Spasticity Abnormal involuntary movements Infected drug delivery pump, subsequent encounter Therapeutic drug monitoring Encounter for therapeutic drug monitoring Spinal cord injury, T7-T12 ([facility])- Primary T7-T12 level spinal cord injury without evidence of spinal bone injury, unspecified Paraplegia (HCC) Paraplegia Factor 5 Leiden mutation, heterozygous (HCC) Primary hypercoagulable state Tobacco abuse disorder Tobacco use disorder KARAN (obstructive sleep apnea) Obstructive sleep apnea (adult) (pediatric) Chronic pain syndrome Asthma, unspecified asthma severity, unspecified whether complicated, unspecified whether persistent Neurogenic bladder Neurogenic bladder, NOS Recurrent UTI Urinary tract infection, site not specified History of pulmonary embolus (PE) Personal history of pulmonary embolism Pre-op evaluation Preoperative examination, unspecified Pain of both shoulder joints [facility] Diagnosis Encounter to establish care- Primary Other reasons for seeking consultation Incomplete spinal cord injury Unspecified site of spinal cord injury without evidence of spinal bone injury Factor 5 Leiden mutation, heterozygous (HCC) Primary hypercoagulable state Urinary retention Retention of urine, unspecified Neurogenic bladder Neurogenic bladder, NOS Weight gain Abnormal weight gain Factor 5 Leiden mutation, heterozygous (HCC)- Primary Primary hypercoagulable state Incomplete spinal cord injury Unspecified site of spinal cord injury without evidence of spinal bone injury Neurogenic bladder Neurogenic bladder, NOS Weight gain Abnormal weight gain Constipation Unspecified constipation Sinusitis Unspecified sinusitis (chronic) Urinary retention- Primary Retention of urine, unspecified Constipation Unspecified constipation Weight gain Abnormal weight gain Incomplete spinal cord injury Unspecified site of spinal cord injury without evidence of spinal bone injury Foot drop, left Other acquired deformity of ankle and foot Incomplete spinal cord injury- Primary Unspecified site of spinal cord injury without evidence of spinal bone injury Constipation Unspecified constipation Weight gain Abnormal weight gain Weight gain- Primary Abnormal weight gain Incomplete spinal cord injury Unspecified site of spinal cord injury without evidence of spinal bone injury ED (erectile dysfunction) Impotence of organic origin Constipation Unspecified constipation Pre-op evaluation- Primary Preoperative examination, unspecified Spasticity Abnormal involuntary movements Spinal cord injury, T7-T12 (HCC) T7-T12 level spinal cord injury without evidence of spinal bone injury, unspecified Tobacco abuse disorder Tobacco use disorder Asthma, unspecified asthma severity, unspecified whether complicated, unspecified whether persistent (HCC) History of pulmonary embolus (PE) Personal history of pulmonary embolism Factor 5 Leiden mutation, heterozygous (HCC) Primary hypercoagulable state Obesity, Class II, BMI 35-39.9 Obesity, unspecified Presence of intrathecal baclofen pump Other postprocedural status KARAN (obstructive sleep apnea) Obstructive sleep apnea (adult) (pediatric) Baclofen pump failure, subsequent encounter- Primary Spasticity Abnormal involuntary movements Therapeutic drug monitoring Encounter for therapeutic drug monitoring Infected drug delivery pump, subsequent encounter Baclofen pump failure, subsequent encounter Chronic pain syndrome Sepsis due to skin infection (HCC) Impaired instrumental activities of daily living Debility, unspecified Gait abnormality Abnormality of gait Foot drop, left Other acquired deformity of ankle and foot Asthma (HCC) Unspecified asthma Chronic pain syndrome Constipation Unspecified constipation Factor 5 Leiden mutation, heterozygous (HCC) Primary hypercoagulable state Gait abnormality Abnormality of gait History of pulmonary embolus (PE) Personal history of pulmonary embolism Impaired functional mobility, balance, gait, and endurance Impaired instrumental activities of daily living Debility, unspecified Nicotine use disorder, F17.2 Tobacco use disorder KARAN (obstructive sleep apnea) Obstructive sleep apnea (adult) (pediatric) Paraparesis of both lower limbs (HCC) Paraplegia Neurogenic bladder Neurogenic bladder, NOS Presence of intrathecal baclofen pump Other postprocedural status Tobacco abuse disorder Tobacco use disorder Spinal cord injury, T7-T12 (HCC) T7-T12 level spinal cord injury without evidence of spinal bone injury, unspecified Spasticity Abnormal involuntary movements Infected drug delivery pump, subsequent encounter Therapeutic drug monitoring Encounter for therapeutic drug monitoring Spinal cord injury, T7-T12 (HCC)- Primary T7-T12 level spinal cord injury without evidence of spinal bone injury, unspecified Paraplegia (HCC) Paraplegia Factor 5 Leiden mutation, heterozygous (HCC) Primary hypercoagulable state Tobacco abuse disorder Tobacco use disorder KARAN (obstructive sleep apnea) Obstructive sleep apnea (adult) (pediatric) Chronic pain syndrome Asthma, unspecified asthma severity, unspecified whether complicated, unspecified whether persistent (HCC) Neurogenic bladder Neurogenic bladder, NOS Recurrent UTI Urinary tract infection, site not specified History of pulmonary embolus (PE) Personal history of pulmonary embolism Pre-op evaluation Preoperative examination, unspecified Impingement syndrome of right shoulder- Primary Other affections of shoulder region, not elsewhere classified Impingement syndrome of left shoulder Other affections of shoulder region, not elsewhere classified [facility] Encounter to establish care- Primary Other reasons for seeking consultation Incomplete spinal cord injury Unspecified site of spinal cord injury without evidence of spinal bone injury Factor 5 Leiden mutation, heterozygous (HCC) Primary hypercoagulable state Urinary retention Retention of urine, unspecified Neurogenic bladder Neurogenic bladder, NOS Weight gain Abnormal weight gain Factor 5 Leiden mutation, heterozygous (HCC)- Primary Primary hypercoagulable state Incomplete spinal cord injury Unspecified site of spinal cord injury without evidence of spinal bone injury Neurogenic bladder Neurogenic bladder, NOS Weight gain Abnormal weight gain Constipation Unspecified constipation Sinusitis Unspecified sinusitis (chronic) Urinary retention- Primary Retention of urine, unspecified Constipation Unspecified constipation Weight gain Abnormal weight gain Incomplete spinal cord injury Unspecified site of spinal cord injury without evidence of spinal bone injury Foot drop, left Other acquired deformity of ankle and foot Incomplete spinal cord injury- Primary Unspecified site of spinal cord injury without evidence of spinal bone injury Constipation Unspecified constipation Weight gain Abnormal weight gain Weight gain- Primary Abnormal weight gain Incomplete spinal cord injury Unspecified site of spinal cord injury without evidence of spinal bone injury ED (erectile dysfunction) Impotence of organic origin Constipation Unspecified constipation Pre-op evaluation- Primary Preoperative examination, unspecified Spasticity Abnormal involuntary movements Spinal cord injury, T7-T12 (HCC) T7-T12 level spinal cord injury without evidence of spinal bone injury, unspecified Tobacco abuse disorder Tobacco use disorder Asthma, unspecified asthma severity, unspecified whether complicated, unspecified whether persistent (HCC) History of pulmonary embolus (PE) Personal history of pulmonary embolism Factor 5 Leiden mutation, heterozygous (HCC) Primary hypercoagulable state Obesity, Class II, BMI 35-39.9 Obesity, unspecified Presence of intrathecal baclofen pump Other postprocedural status KARAN (obstructive sleep apnea) Obstructive sleep apnea (adult) (pediatric) Baclofen pump failure, subsequent encounter- Primary Spasticity Abnormal involuntary movements Therapeutic drug monitoring Encounter for therapeutic drug monitoring Infected drug delivery pump, subsequent encounter Baclofen pump failure, subsequent encounter Chronic pain syndrome Sepsis due to skin infection (HCC) Impaired instrumental activities of daily living Debility, unspecified Gait abnormality Abnormality of gait Foot drop, left Other acquired deformity of ankle and foot Asthma (HCC) Unspecified asthma Chronic pain syndrome Constipation Unspecified constipation Factor 5 Leiden mutation, heterozygous (HCC) Primary hypercoagulable state Gait abnormality Abnormality of gait History of pulmonary embolus (PE) Personal history of pulmonary embolism Impaired functional mobility, balance, gait, and endurance Impaired instrumental activities of daily living Debility, unspecified Nicotine use disorder, F17.2 Tobacco use disorder KARAN (obstructive sleep apnea) Obstructive sleep apnea (adult) (pediatric) Paraparesis of both lower limbs (HCC) Paraplegia Neurogenic bladder Neurogenic bladder, NOS Presence of intrathecal baclofen pump Other postprocedural status Tobacco abuse disorder Tobacco use disorder Spinal cord injury, T7-T12 (HCC) T7-T12 level spinal cord injury without evidence of spinal bone injury, unspecified Spasticity Abnormal involuntary movements Infected drug delivery pump, subsequent encounter Therapeutic drug monitoring Encounter for therapeutic drug monitoring Spinal cord injury, T7-T12 ([facility])- Primary T7-T12 level spinal cord injury without evidence of spinal bone injury, unspecified Paraplegia (HCC) Paraplegia Factor 5 Leiden mutation, heterozygous (HCC) Primary hypercoagulable state Tobacco abuse disorder Tobacco use disorder KARAN (obstructive sleep apnea) Obstructive sleep apnea (adult) (pediatric) Chronic pain syndrome Asthma, unspecified asthma severity, unspecified whether complicated, unspecified whether persistent (HCC) Neurogenic bladder Neurogenic bladder, NOS Recurrent UTI Urinary tract infection, site not specified History of pulmonary embolus (PE) Personal history of pulmonary embolism Pre-op evaluation Preoperative examination, unspecified Erectile dysfunction, unspecified erectile dysfunction type [facility] Diagnosis Encounter to establish care- Primary Other reasons for seeking consultation Incomplete spinal cord injury Unspecified site of spinal cord injury without evidence of spinal bone injury Factor 5 Leiden mutation, heterozygous (HCC) Primary hypercoagulable state Urinary retention Retention of urine, unspecified Neurogenic bladder Neurogenic bladder, NOS Weight gain Abnormal weight gain Factor 5 Leiden mutation, heterozygous (HCC)- Primary Primary hypercoagulable state Incomplete spinal cord injury Unspecified site of spinal cord injury without evidence of spinal bone injury Neurogenic bladder Neurogenic bladder, NOS Weight gain Abnormal weight gain Constipation Unspecified constipation Sinusitis Unspecified sinusitis (chronic) Urinary retention- Primary Retention of urine, unspecified Constipation Unspecified constipation Weight gain Abnormal weight gain Incomplete spinal cord injury Unspecified site of spinal cord injury without evidence of spinal bone injury Foot drop, left Other acquired deformity of ankle and foot Incomplete spinal cord injury- Primary Unspecified site of spinal cord injury without evidence of spinal bone injury Constipation Unspecified constipation Weight gain Abnormal weight gain Weight gain- Primary Abnormal weight gain Incomplete spinal cord injury Unspecified site of spinal cord injury without evidence of spinal bone injury ED (erectile dysfunction) Impotence of organic origin Constipation Unspecified constipation Pre-op evaluation- Primary Preoperative examination, unspecified Spasticity Abnormal involuntary movements Spinal cord injury, T7-T12 (HCC) T7-T12 level spinal cord injury without evidence of spinal bone injury, unspecified Tobacco abuse disorder Tobacco use disorder Asthma, unspecified asthma severity, unspecified whether complicated, unspecified whether persistent (HCC) History of pulmonary embolus (PE) Personal history of pulmonary embolism Factor 5 Leiden mutation, heterozygous (HCC) Primary hypercoagulable state Obesity, Class II, BMI 35-39.9 Obesity, unspecified Presence of intrathecal baclofen pump Other postprocedural status KARAN (obstructive sleep apnea) Obstructive sleep apnea (adult) (pediatric) Baclofen pump failure, subsequent encounter- Primary Spasticity Abnormal involuntary movements Therapeutic drug monitoring Encounter for therapeutic drug monitoring Infected drug delivery pump, subsequent encounter Baclofen pump failure, subsequent encounter Chronic pain syndrome Sepsis due to skin infection (HCC) Impaired instrumental activities of daily living Debility, unspecified Gait abnormality Abnormality of gait Foot drop, left Other acquired deformity of ankle and foot Asthma (HCC) Unspecified asthma Chronic pain syndrome Constipation Unspecified constipation Factor 5 Leiden mutation, heterozygous (HCC) Primary hypercoagulable state Gait abnormality Abnormality of gait History of pulmonary embolus (PE) Personal history of pulmonary embolism Impaired functional mobility, balance, gait, and endurance Impaired instrumental activities of daily living Debility, unspecified Nicotine use disorder, F17.2 Tobacco use disorder KARAN (obstructive sleep apnea) Obstructive sleep apnea (adult) (pediatric) Paraparesis of both lower limbs (HCC) Paraplegia Neurogenic bladder Neurogenic bladder, NOS Presence of intrathecal baclofen pump Other postprocedural status Tobacco abuse disorder Tobacco use disorder Spinal cord injury, T7-T12 (HCC) T7-T12 level spinal cord injury without evidence of spinal bone injury, unspecified Spasticity Abnormal involuntary movements Infected drug delivery pump, subsequent encounter Therapeutic drug monitoring Encounter for therapeutic drug monitoring Spinal cord injury, T7-T12 (HCC)- Primary T7-T12 level spinal cord injury without evidence of spinal bone injury, unspecified Paraplegia (HCC) Paraplegia Factor 5 Leiden mutation, heterozygous (HCC) Primary hypercoagulable state Tobacco abuse disorder Tobacco use disorder KARAN (obstructive sleep apnea) Obstructive sleep apnea (adult) (pediatric) Chronic pain syndrome Asthma, unspecified asthma severity, unspecified whether complicated, unspecified whether persistent (HCC) Neurogenic bladder Neurogenic bladder, NOS Recurrent UTI Urinary tract infection, site not specified History of pulmonary embolus (PE) Personal history of pulmonary embolism Pre-op evaluation Preoperative examination, unspecified Hypogonadism in male- Primary Impotence of organic origin [facility] En[facility] to establish care- Primary Other reasons for seeking consultation Incomplete spinal cord injury Unspecified site of spinal cord injury without evidence of spinal bone injury Factor 5 Leiden mutation, heterozygous (HCC) Primary hypercoagulable state Urinary retention Retention of urine, unspecified Neurogenic bladder Neurogenic bladder, NOS Weight gain Abnormal weight gain Factor 5 Leiden mutation, heterozygous (HCC)- Primary Primary hypercoagulable state Incomplete spinal cord injury Unspecified site of spinal cord injury without evidence of spinal bone injury Neurogenic bladder Neurogenic bladder, NOS Weight gain Abnormal weight gain Constipation Unspecified constipation Sinusitis Unspecified sinusitis (chronic) Urinary retention- Primary Retention of urine, unspecified Constipation Unspecified constipation Weight gain Abnormal weight gain Incomplete spinal cord injury Unspecified site of spinal cord injury without evidence of spinal bone injury Foot drop, left Other acquired deformity of ankle and foot Incomplete spinal cord injury- Primary Unspecified site of spinal cord injury without evidence of spinal bone injury Constipation Unspecified constipation Weight gain Abnormal weight gain Weight gain- Primary Abnormal weight gain Incomplete spinal cord injury Unspecified site of spinal cord injury without evidence of spinal bone injury ED (erectile dysfunction) Impotence of organic origin Constipation Unspecified constipation Pre-op evaluation- Primary Preoperative examination, unspecified Spasticity Abnormal involuntary movements Spinal cord injury, T7-T12 ([facility]) T7-T12 level spinal cord injury without evidence of spinal bone injury, unspecified Tobacco abuse disorder Tobacco use disorder Asthma, unspecified asthma severity, unspecified whether complicated, unspecified whether persistent ([facility]) History of pulmonary embolus (PE) Personal history of pulmonary embolism Factor 5 Leiden mutation, heterozygous ([facility]) Primary hypercoagulable state Obesity, Class II, BMI 35-39.9 Obesity, unspecified Presence of intrathecal baclofen pump Other postprocedural status KARAN (obstructive sleep apnea) Obstructive sleep apnea (adult) (pediatric) Baclofen pump failure, subsequent encounter- Primary Spasticity Abnormal involuntary movements Therapeutic drug monitoring Encounter for therapeutic drug monitoring Infected drug delivery pump, subsequent encounter Baclofen pump failure, subsequent encounter Chronic pain syndrome Sepsis due to skin infection ([facility]) Impaired instrumental activities of daily living Debility, unspecified Gait abnormality Abnormality of gait Foot drop, left Other acquired deformity of ankle and foot Asthma (HCC) Unspecified asthma Chronic pain syndrome Constipation Unspecified constipation Factor 5 Leiden mutation, heterozygous (HCC) Primary hypercoagulable state Gait abnormality Abnormality of gait History of pulmonary embolus (PE) Personal history of pulmonary embolism Impaired functional mobility, balance, gait, and endurance Impaired instrumental activities of daily living Debility, unspecified Nicotine use disorder, F17.2 Tobacco use disorder KARAN (obstructive sleep apnea) Obstructive sleep apnea (adult) (pediatric) Paraparesis of both lower limbs (HCC) Paraplegia Neurogenic bladder Neurogenic bladder, NOS Presence of intrathecal baclofen pump Other postprocedural status Tobacco abuse disorder Tobacco use disorder Spinal cord injury, T7-T12 (HCC) T7-T12 level spinal cord injury without evidence of spinal bone injury, unspecified Spasticity Abnormal involuntary movements Infected drug delivery pump, subsequent encounter Therapeutic drug monitoring Encounter for therapeutic drug monitoring Spinal cord injury, T7-T12 (HCC)- Primary T7-T12 level spinal cord injury without evidence of spinal bone injury, unspecified Paraplegia (HCC) Paraplegia Factor 5 Leiden mutation, heterozygous (HCC) Primary hypercoagulable state Tobacco abuse disorder Tobacco use disorder KARAN (obstructive sleep apnea) Obstructive sleep apnea (adult) (pediatric) Chronic pain syndrome Asthma, unspecified asthma severity, unspecified whether complicated, unspecified whether persistent (HCC) Neurogenic bladder Neurogenic bladder, NOS Recurrent UTI Urinary tract infection, site not specified History of pulmonary embolus (PE) Personal history of pulmonary embolism Pre-op evaluation Preoperative examination, unspecified T4 spinal cord injury, sequela (HCC)- Primary Muscle spasticity Spasm of muscle Gait abnormality Abnormality of gait Paraplegia (HCC) Paraplegia [facility] Encounter to establish care- Primary Other reasons for seeking consultation Incomplete spinal cord injury Unspecified site of spinal cord injury without evidence of spinal bone injury Factor 5 Leiden mutation, heterozygous (HCC) Primary hypercoagulable state Urinary retention Retention of urine, unspecified Neurogenic bladder Neurogenic bladder, NOS Weight gain Abnormal weight gain Factor 5 Leiden mutation, heterozygous (HCC)- Primary Primary hypercoagulable state Incomplete spinal cord injury Unspecified site of spinal cord injury without evidence of spinal bone injury Neurogenic bladder Neurogenic bladder, NOS Weight gain Abnormal weight gain Constipation Unspecified constipation Sinusitis Unspecified sinusitis (chronic) Urinary retention- Primary Retention of urine, unspecified Constipation Unspecified constipation Weight gain Abnormal weight gain Incomplete spinal cord injury Unspecified site of spinal cord injury without evidence of spinal bone injury Foot drop, left Other acquired deformity of ankle and foot Incomplete spinal cord injury- Primary Unspecified site of spinal cord injury without evidence of spinal bone injury Constipation Unspecified constipation Weight gain Abnormal weight gain Weight gain- Primary Abnormal weight gain Incomplete spinal cord injury Unspecified site of spinal cord injury without evidence of spinal bone injury ED (erectile dysfunction) Impotence of organic origin Constipation Unspecified constipation Pre-op evaluation- Primary Preoperative examination, unspecified Spasticity Abnormal involuntary movements Spinal cord injury, T7-T12 (HCC) T7-T12 level spinal cord injury without evidence of spinal bone injury, unspecified Tobacco abuse disorder Tobacco use disorder Asthma, unspecified asthma severity, unspecified whether complicated, unspecified whether persistent (HCC) History of pulmonary embolus (PE) Personal history of pulmonary embolism Factor 5 Leiden mutation, heterozygous (HCC) Primary hypercoagulable state Obesity, Class II, BMI 35-39.9 Obesity, unspecified Presence of intrathecal baclofen pump Other postprocedural status KARAN (obstructive sleep apnea) Obstructive sleep apnea (adult) (pediatric) Baclofen pump failure, subsequent encounter- Primary Spasticity Abnormal involuntary movements Therapeutic drug monitoring Encounter for therapeutic drug monitoring Infected drug delivery pump, subsequent encounter Baclofen pump failure, subsequent encounter Chronic pain syndrome Sepsis due to skin infection (HCC) Impaired instrumental activities of daily living Debility, unspecified Gait abnormality Abnormality of gait Foot drop, left Other acquired deformity of ankle and foot Asthma (HCC) Unspecified asthma Chronic pain syndrome Constipation Unspecified constipation Factor 5 Leiden mutation, heterozygous (HCC) Primary hypercoagulable state Gait abnormality Abnormality of gait History of pulmonary embolus (PE) Personal history of pulmonary embolism Impaired functional mobility, balance, gait, and endurance Impaired instrumental activities of daily living Debility, unspecified Nicotine use disorder, F17.2 Tobacco use disorder KARAN (obstructive sleep apnea) Obstructive sleep apnea (adult) (pediatric) Paraparesis of both lower limbs (HCC) Paraplegia Neurogenic bladder Neurogenic bladder, NOS Presence of intrathecal baclofen pump Other postprocedural status Tobacco abuse disorder Tobacco use disorder Spinal cord injury, T7-T12 (HCC) T7-T12 level spinal cord injury without evidence of spinal bone injury, unspecified Spasticity Abnormal involuntary movements Infected drug delivery pump, subsequent encounter Therapeutic drug monitoring Encounter for therapeutic drug monitoring Spinal cord injury, T7-T12 (HCC)- Primary T7-T12 level spinal cord injury without evidence of spinal bone injury, unspecified Paraplegia (HCC) Paraplegia Factor 5 Leiden mutation, heterozygous (HCC) Primary hypercoagulable state Tobacco abuse disorder Tobacco use disorder KARAN (obstructive sleep apnea) Obstructive sleep apnea (adult) (pediatric) Chronic pain syndrome Asthma, unspecified asthma severity, unspecified whether complicated, unspecified whether persistent (HCC) Neurogenic bladder Neurogenic bladder, NOS Recurrent UTI Urinary tract infection, site not specified History of pulmonary embolus (PE) Personal history of pulmonary embolism Pre-op evaluation Preoperative examination, unspecified Impingement syndrome of right shoulder- Primary Other affections of shoulder region, not elsewhere classified Impingement syndrome of left shoulder Other affections of shoulder region, not elsewhere classified [facility] Encounter to establish care- Primary Other reasons for seeking consultation Incomplete spinal cord injury Unspecified site of spinal cord injury without evidence of spinal bone injury Factor 5 Leiden mutation, heterozygous (HCC) Primary hypercoagulable state Urinary retention Retention of urine, unspecified Neurogenic bladder Neurogenic bladder, NOS Weight gain Abnormal weight gain Factor 5 Leiden mutation, heterozygous (HCC)- Primary Primary hypercoagulable state Incomplete spinal cord injury Unspecified site of spinal cord injury without evidence of spinal bone injury Neurogenic bladder Neurogenic bladder, NOS Weight gain Abnormal weight gain Constipation Unspecified constipation Sinusitis Unspecified sinusitis (chronic) Urinary retention- Primary Retention of urine, unspecified Constipation Unspecified constipation Weight gain Abnormal weight gain Incomplete spinal cord injury Unspecified site of spinal cord injury without evidence of spinal bone injury Foot drop, left Other acquired deformity of ankle and foot Incomplete spinal cord injury- Primary Unspecified site of spinal cord injury without evidence of spinal bone injury Constipation Unspecified constipation Weight gain Abnormal weight gain Weight gain- Primary Abnormal weight gain Incomplete spinal cord injury Unspecified site of spinal cord injury without evidence of spinal bone injury ED (erectile dysfunction) Impotence of organic origin Constipation Unspecified constipation Pre-op evaluation- Primary Preoperative examination, unspecified Spasticity Abnormal involuntary movements Spinal cord injury, T7-T12 (HCC) T7-T12 level spinal cord injury without evidence of spinal bone injury, unspecified Tobacco abuse disorder Tobacco use disorder Asthma, unspecified asthma severity, unspecified whether complicated, unspecified whether persistent (HCC) History of pulmonary embolus (PE) Personal history of pulmonary embolism Factor 5 Leiden mutation, heterozygous (HCC) Primary hypercoagulable state Obesity, Class II, BMI 35-39.9 Obesity, unspecified Presence of intrathecal baclofen pump Other postprocedural status KARAN (obstructive sleep apnea) Obstructive sleep apnea (adult) (pediatric) Baclofen pump failure, subsequent encounter- Primary Spasticity Abnormal involuntary movements Therapeutic drug monitoring Encounter for therapeutic drug monitoring Infected drug delivery pump, subsequent encounter Baclofen pump failure, subsequent encounter Chronic pain syndrome Sepsis due to skin infection (HCC) Impaired instrumental activities of daily living Debility, unspecified Gait abnormality Abnormality of gait Foot drop, left Other acquired deformity of ankle and foot Asthma (HCC) Unspecified asthma Chronic pain syndrome Constipation Unspecified constipation Factor 5 Leiden mutation, heterozygous (HCC) Primary hypercoagulable state Gait abnormality Abnormality of gait History of pulmonary embolus (PE) Personal history of pulmonary embolism Impaired functional mobility, balance, gait, and endurance Impaired instrumental activities of daily living Debility, unspecified Nicotine use disorder, F17.2 Tobacco use disorder KARAN (obstructive sleep apnea) Obstructive sleep apnea (adult) (pediatric) Paraparesis of both lower limbs (HCC) Paraplegia Neurogenic bladder Neurogenic bladder, NOS Presence of intrathecal baclofen pump Other postprocedural status Tobacco abuse disorder Tobacco use disorder Spinal cord injury, T7-T12 (HCC) T7-T12 level spinal cord injury without evidence of spinal bone injury, unspecified Spasticity Abnormal involuntary movements Infected drug delivery pump, subsequent encounter Therapeutic drug monitoring Encounter for therapeutic drug monitoring Spinal cord injury, T7-T12 (HCC)- Primary T7-T12 level spinal cord injury without evidence of spinal bone injury, unspecified Paraplegia (HCC) Paraplegia Factor 5 Leiden mutation, heterozygous (HCC) Primary hypercoagulable state Tobacco abuse disorder Tobacco use disorder KARAN (obstructive sleep apnea) Obstructive sleep apnea (adult) (pediatric) Chronic pain syndrome Asthma, unspecified asthma severity, unspecified whether complicated, unspecified whether persistent (HCC) Neurogenic bladder Neurogenic bladder, NOS Recurrent UTI Urinary tract infection, site not specified History of pulmonary embolus (PE) Personal history of pulmonary embolism Pre-op evaluation Preoperative examination, unspecified KARAN (obstructive sleep apnea)- Primary Obstructive sleep apnea (adult) (pediatric) Encounter for smoking cessation counseling Counseling on substance use and abuse Tobacco abuse disorder Tobacco use disorder Neurogenic bladder Neurogenic bladder, NOS Recurrent UTI Urinary tract infection, site not specified Spinal cord injury, T7-T12 (HCC) T7-T12 level spinal cord injury without evidence of spinal bone injury, unspecified Onychomycosis Dermatophytosis of nail Ingrown toenail Ingrowing nail Chronic pain syndrome Paraplegia, complete (HCC) [facility] Encounter to establish care- Primary Other reasons for seeking consultation Incomplete spinal cord injury Unspecified site of spinal cord injury without evidence of spinal bone injury Factor 5 Leiden mutation, heterozygous (HCC) Primary hypercoagulable state Urinary retention Retention of urine, unspecified Neurogenic bladder Neurogenic bladder, NOS Weight gain Abnormal weight gain Factor 5 Leiden mutation, heterozygous (HCC)- Primary Primary hypercoagulable state Incomplete spinal cord injury Unspecified site of spinal cord injury without evidence of spinal bone injury Neurogenic bladder Neurogenic bladder, NOS Weight gain Abnormal weight gain Constipation Unspecified constipation Sinusitis Unspecified sinusitis (chronic) Urinary retention- Primary Retention of urine, unspecified Constipation Unspecified constipation Weight gain Abnormal weight gain Incomplete spinal cord injury Unspecified site of spinal cord injury without evidence of spinal bone injury Foot drop, left Other acquired deformity of ankle and foot Incomplete spinal cord injury- Primary Unspecified site of spinal cord injury without evidence of spinal bone injury Constipation Unspecified constipation Weight gain Abnormal weight gain Weight gain- Primary Abnormal weight gain Incomplete spinal cord injury Unspecified site of spinal cord injury without evidence of spinal bone injury ED (erectile dysfunction) Impotence of organic origin Constipation Unspecified constipation Pre-op evaluation- Primary Preoperative examination, unspecified Spasticity Abnormal involuntary movements Spinal cord injury, T7-T12 ([facility]) T7-T12 level spinal cord injury without evidence of spinal bone injury, unspecified Tobacco abuse disorder Tobacco use disorder Asthma, unspecified asthma severity, unspecified whether complicated, unspecified whether persistent (HCC) History of pulmonary embolus (PE) Personal history of pulmonary embolism Factor 5 Leiden mutation, heterozygous ([facility]) Primary hypercoagulable state Obesity, Class II, BMI 35-39.9 Obesity, unspecified Presence of intrathecal baclofen pump Other postprocedural status KARAN (obstructive sleep apnea) Obstructive sleep apnea (adult) (pediatric) Baclofen pump failure, subsequent encounter- Primary Spasticity Abnormal involuntary movements Therapeutic drug monitoring Encounter for therapeutic drug monitoring Infected drug delivery pump, subsequent encounter Baclofen pump failure, subsequent encounter Chronic pain syndrome Sepsis due to skin infection (HCC) Impaired instrumental activities of daily living Debility, unspecified Gait abnormality Abnormality of gait Foot drop, left Other acquired deformity of ankle and foot Asthma (HCC) Unspecified asthma Chronic pain syndrome Constipation Unspecified constipation Factor 5 Leiden mutation, heterozygous (HCC) Primary hypercoagulable state Gait abnormality Abnormality of gait History of pulmonary embolus (PE) Personal history of pulmonary embolism Impaired functional mobility, balance, gait, and endurance Impaired instrumental activities of daily living Debility, unspecified Nicotine use disorder, F17.2 Tobacco use disorder KARAN (obstructive sleep apnea) Obstructive sleep apnea (adult) (pediatric) Paraparesis of both lower limbs (HCC) Paraplegia Neurogenic bladder Neurogenic bladder, NOS Presence of intrathecal baclofen pump Other postprocedural status Tobacco abuse disorder Tobacco use disorder Spinal cord injury, T7-T12 (HCC) T7-T12 level spinal cord injury without evidence of spinal bone injury, unspecified Spasticity Abnormal involuntary movements Infected drug delivery pump, subsequent encounter Therapeutic drug monitoring Encounter for therapeutic drug monitoring Spinal cord injury, T7-T12 (HCC)- Primary T7-T12 level spinal cord injury without evidence of spinal bone injury, unspecified Paraplegia (HCC) Paraplegia Factor 5 Leiden mutation, heterozygous (HCC) Primary hypercoagulable state Tobacco abuse disorder Tobacco use disorder KARAN (obstructive sleep apnea) Obstructive sleep apnea (adult) (pediatric) Chronic pain syndrome Asthma, unspecified asthma severity, unspecified whether complicated, unspecified whether persistent (HCC) Neurogenic bladder Neurogenic bladder, NOS Recurrent UTI Urinary tract infection, site not specified History of pulmonary embolus (PE) Personal history of pulmonary embolism Pre-op evaluation Preoperative examination, unspecified Spinal cord injury, T7-T12 (HCC)- Primary T7-T12 level spinal cord injury without evidence of spinal bone injury, unspecified Neurogenic bladder Neurogenic bladder, NOS Chronic pain syndrome Paraplegia, complete (HCC) [facility] Encounter to establish care- Primary Other reasons for seeking consultation Incomplete spinal cord injury Unspecified site of spinal cord injury without evidence of spinal bone injury Factor 5 Leiden mutation, heterozygous (HCC) Primary hypercoagulable state Urinary retention Retention of urine, unspecified Neurogenic bladder Neurogenic bladder, NOS Weight gain Abnormal weight gain Factor 5 Leiden mutation, heterozygous (HCC)- Primary Primary hypercoagulable state Incomplete spinal cord injury Unspecified site of spinal cord injury without evidence of spinal bone injury Neurogenic bladder Neurogenic bladder, NOS Weight gain Abnormal weight gain Constipation Unspecified constipation Sinusitis Unspecified sinusitis (chronic) Urinary retention- Primary Retention of urine, unspecified Constipation Unspecified constipation Weight gain Abnormal weight gain Incomplete spinal cord injury Unspecified site of spinal cord injury without evidence of spinal bone injury Foot drop, left Other acquired deformity of ankle and foot Incomplete spinal cord injury- Primary Unspecified site of spinal cord injury without evidence of spinal bone injury Constipation Unspecified constipation Weight gain Abnormal weight gain Weight gain- Primary Abnormal weight gain Incomplete spinal cord injury Unspecified site of spinal cord injury without evidence of spinal bone injury ED (erectile dysfunction) Impotence of organic origin Constipation Unspecified constipation Pre-op evaluation- Primary Preoperative examination, unspecified Spasticity Abnormal involuntary movements Spinal cord injury, T7-T12 (HCC) T7-T12 level spinal cord injury without evidence of spinal bone injury, unspecified Tobacco abuse disorder Tobacco use disorder Asthma, unspecified asthma severity, unspecified whether complicated, unspecified whether persistent (HCC) History of pulmonary embolus (PE) Personal history of pulmonary embolism Factor 5 Leiden mutation, heterozygous (HCC) Primary hypercoagulable state Obesity, Class II, BMI 35-39.9 Obesity, unspecified Presence of intrathecal baclofen pump Other postprocedural status KARAN (obstructive sleep apnea) Obstructive sleep apnea (adult) (pediatric) Baclofen pump failure, subsequent encounter- Primary Spasticity Abnormal involuntary movements Therapeutic drug monitoring Encounter for therapeutic drug monitoring Infected drug delivery pump, subsequent encounter Baclofen pump failure, subsequent encounter Chronic pain syndrome Sepsis due to skin infection (HCC) Impaired instrumental activities of daily living Debility, unspecified Gait abnormality Abnormality of gait Foot drop, left Other acquired deformity of ankle and foot Asthma (HCC) Unspecified asthma Chronic pain syndrome Constipation Unspecified constipation Factor 5 Leiden mutation, heterozygous (HCC) Primary hypercoagulable state Gait abnormality Abnormality of gait History of pulmonary embolus (PE) Personal history of pulmonary embolism Impaired functional mobility, balance, gait, and endurance Impaired instrumental activities of daily living Debility, unspecified Nicotine use disorder, F17.2 Tobacco use disorder KARAN (obstructive sleep apnea) Obstructive sleep apnea (adult) (pediatric) Paraparesis of both lower limbs (HCC) Paraplegia Neurogenic bladder Neurogenic bladder, NOS Presence of intrathecal baclofen pump Other postprocedural status Tobacco abuse disorder Tobacco use disorder Spinal cord injury, T7-T12 (HCC) T7-T12 level spinal cord injury without evidence of spinal bone injury, unspecified Spasticity Abnormal involuntary movements Infected drug delivery pump, subsequent encounter Therapeutic drug monitoring Encounter for therapeutic drug monitoring Spinal cord injury, T7-T12 (HCC)- Primary T7-T12 level spinal cord injury without evidence of spinal bone injury, unspecified Paraplegia (HCC) Paraplegia Factor 5 Leiden mutation, heterozygous (HCC) Primary hypercoagulable state Tobacco abuse disorder Tobacco use disorder KARAN (obstructive sleep apnea) Obstructive sleep apnea (adult) (pediatric) Chronic pain syndrome Asthma, unspecified asthma severity, unspecified whether complicated, unspecified whether persistent (HCC) Neurogenic bladder Neurogenic bladder, NOS Recurrent UTI Urinary tract infection, site not specified History of pulmonary embolus (PE) Personal history of pulmonary embolism Pre-op evaluation Preoperative examination, unspecified T4 spinal cord injury, sequela (HCC)- Primary Impingement syndrome of right shoulder Other affections of shoulder region, not elsewhere classified Impingement syndrome of left shoulder Other affections of shoulder region, not elsewhere classified Gait abnormality Abnormality of gait Paraplegia (HCC) [facility]aplegia [facility] Diagnosis Encounter to establish care- Primary Other reasons for seeking consultation Incomplete spinal cord injury Unspecified site of spinal cord injury without evidence of spinal bone injury Factor 5 Leiden mutation, heterozygous (HCC) Primary hypercoagulable state Urinary retention Retention of urine, unspecified Neurogenic bladder Neurogenic bladder, NOS Weight gain Abnormal weight gain Factor 5 Leiden mutation, heterozygous (HCC)- Primary Primary hypercoagulable state Incomplete spinal cord injury Unspecified site of spinal cord injury without evidence of spinal bone injury Neurogenic bladder Neurogenic bladder, NOS Weight gain Abnormal weight gain Constipation Unspecified constipation Sinusitis Unspecified sinusitis (chronic) Urinary retention- Primary Retention of urine, unspecified Constipation Unspecified constipation Weight gain Abnormal weight gain Incomplete spinal cord injury Unspecified site of spinal cord injury without evidence of spinal bone injury Foot drop, left Other acquired deformity of ankle and foot Incomplete spinal cord injury- Primary Unspecified site of spinal cord injury without evidence of spinal bone injury Constipation Unspecified constipation Weight gain Abnormal weight gain Weight gain- Primary Abnormal weight gain Incomplete spinal cord injury Unspecified site of spinal cord injury without evidence of spinal bone injury ED (erectile dysfunction) Impotence of organic origin Constipation Unspecified constipation Pre-op evaluation- Primary Preoperative examination, unspecified Spasticity Abnormal involuntary movements Spinal cord injury, T7-T12 (HCC) T7-T12 level spinal cord injury without evidence of spinal bone injury, unspecified Tobacco abuse disorder Tobacco use disorder Asthma, unspecified asthma severity, unspecified whether complicated, unspecified whether persistent (HCC) History of pulmonary embolus (PE) Personal history of pulmonary embolism Factor 5 Leiden mutation, heterozygous (HCC) Primary hypercoagulable state Obesity, Class II, BMI 35-39.9 Obesity, unspecified Presence of intrathecal baclofen pump Other postprocedural status KARAN (obstructive sleep apnea) Obstructive sleep apnea (adult) (pediatric) Baclofen pump failure, subsequent encounter- Primary Spasticity Abnormal involuntary movements Therapeutic drug monitoring Encounter for therapeutic drug monitoring Infected drug delivery pump, subsequent encounter Baclofen pump failure, subsequent encounter Chronic pain syndrome Sepsis due to skin infection (HCC) Impaired instrumental activities of daily living Debility, unspecified Gait abnormality Abnormality of gait Foot drop, left Other acquired deformity of ankle and foot Asthma (HCC) Unspecified asthma Chronic pain syndrome Constipation Unspecified constipation Factor 5 Leiden mutation, heterozygous (HCC) Primary hypercoagulable state Gait abnormality Abnormality of gait History of pulmonary embolus (PE) Personal history of pulmonary embolism Impaired functional mobility, balance, gait, and endurance Impaired instrumental activities of daily living Debility, unspecified Nicotine use disorder, F17.2 Tobacco use disorder KARAN (obstructive sleep apnea) Obstructive sleep apnea (adult) (pediatric) Paraparesis of both lower limbs (HCC) Paraplegia Neurogenic bladder Neurogenic bladder, NOS Presence of intrathecal baclofen pump Other postprocedural status Tobacco abuse disorder Tobacco use disorder Spinal cord injury, T7-T12 (HCC) T7-T12 level spinal cord injury without evidence of spinal bone injury, unspecified Spasticity Abnormal involuntary movements Infected drug delivery pump, subsequent encounter Therapeutic drug monitoring Encounter for therapeutic drug monitoring Spinal cord injury, T7-T12 (HCC)- Primary T7-T12 level spinal cord injury without evidence of spinal bone injury, unspecified Paraplegia (HCC) Paraplegia Factor 5 Leiden mutation, heterozygous (HCC) Primary hypercoagulable state Tobacco abuse disorder Tobacco use disorder KARAN (obstructive sleep apnea) Obstructive sleep apnea (adult) (pediatric) Chronic pain syndrome Asthma, unspecified asthma severity, unspecified whether complicated, unspecified whether persistent (HCC) Neurogenic bladder Neurogenic bladder, NOS Recurrent UTI Urinary tract infection, site not specified History of pulmonary embolus (PE) Personal history of pulmonary embolism Pre-op evaluation Preoperative examination, unspecified Adjustment disorder with mixed anxiety and depressed mood- Primary Erectile dysfunction due to diseases classified elsewhere 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[facility] En[facility] to establish care- Primary Other reasons for seeking consultation Incomplete spinal cord injury Unspecified site of spinal cord injury without evidence of spinal bone injury Factor 5 Leiden mutation, heterozygous (HCC) Primary hypercoagulable state Urinary retention Retention of urine, unspecified Neurogenic bladder Neurogenic bladder, NOS Weight gain Abnormal weight gain Factor 5 Leiden mutation, heterozygous (HCC)- Primary Primary hypercoagulable state Incomplete spinal cord injury Unspecified site of spinal cord injury without evidence of spinal bone injury Neurogenic bladder Neurogenic bladder, NOS Weight gain Abnormal weight gain Constipation Unspecified constipation Sinusitis Unspecified sinusitis (chronic) Urinary retention- Primary Retention of urine, unspecified Constipation Unspecified constipation Weight gain Abnormal weight gain Incomplete spinal cord injury Unspecified site of spinal cord injury without evidence of spinal bone injury Foot drop, left Other acquired deformity of ankle and foot Incomplete spinal cord injury- Primary Unspecified site of spinal cord injury without evidence of spinal bone injury Constipation Unspecified constipation Weight gain Abnormal weight gain Weight gain- Primary Abnormal weight gain Incomplete spinal cord injury Unspecified site of spinal cord injury without evidence of spinal bone injury ED (erectile dysfunction) Impotence of organic origin Constipation Unspecified constipation Pre-op evaluation- Primary Preoperative examination, unspecified Spasticity Abnormal involuntary movements Spinal cord injury, T7-T12 (HCC) T7-T12 level spinal cord injury without evidence of spinal bone injury, unspecified Tobacco abuse disorder Tobacco use disorder Asthma, unspecified asthma severity, unspecified whether complicated, unspecified whether persistent (HCC) History of pulmonary embolus (PE) Personal history of pulmonary embolism Factor 5 Leiden mutation, heterozygous (HCC) Primary hypercoagulable state Obesity, Class II, BMI 35-39.9 Obesity, unspecified Presence of intrathecal baclofen pump Other postprocedural status KARAN (obstructive sleep apnea) Obstructive sleep apnea (adult) (pediatric) Baclofen pump failure, subsequent encounter- Primary Spasticity Abnormal involuntary movements Therapeutic drug monitoring Encounter for therapeutic drug monitoring Infected drug delivery pump, subsequent encounter Baclofen pump failure, subsequent encounter Chronic pain syndrome Sepsis due to skin infection (HCC) Impaired instrumental activities of daily living Debility, unspecified Gait abnormality Abnormality of gait Foot drop, left Other acquired deformity of ankle and foot Asthma (HCC) Unspecified asthma Chronic pain syndrome Constipation Unspecified constipation Factor 5 Leiden mutation, heterozygous (HCC) Primary hypercoagulable state Gait abnormality Abnormality of gait History of pulmonary embolus (PE) Personal history of pulmonary embolism Impaired functional mobility, balance, gait, and endurance Impaired instrumental activities of daily living Debility, unspecified Nicotine use disorder, F17.2 Tobacco use disorder KARAN (obstructive sleep apnea) Obstructive sleep apnea (adult) (pediatric) Paraparesis of both lower limbs (HCC) Paraplegia Neurogenic bladder Neurogenic bladder, NOS Presence of intrathecal baclofen pump Other postprocedural status Tobacco abuse disorder Tobacco use disorder Spinal cord injury, T7-T12 (HCC) T7-T12 level spinal cord injury without evidence of spinal bone injury, unspecified Spasticity Abnormal involuntary movements Infected drug delivery pump, subsequent encounter Therapeutic drug monitoring Encounter for therapeutic drug monitoring Spinal cord injury, T7-T12 (HCC)- Primary T7-T12 level spinal cord injury without evidence of spinal bone injury, unspecified Paraplegia (HCC) Paraplegia Factor 5 Leiden mutation, heterozygous (HCC) Primary hypercoagulable state Tobacco abuse disorder Tobacco use disorder KARAN (obstructive sleep apnea) Obstructive sleep apnea (adult) (pediatric) Chronic pain syndrome Asthma, unspecified asthma severity, unspecified whether complicated, unspecified whether persistent (HCC) Neurogenic bladder Neurogenic bladder, NOS Recurrent UTI Urinary tract infection, site not specified History of pulmonary embolus (PE) Personal history of pulmonary embolism Pre-op evaluation Preoperative examination, unspecified Gait abnormality- Primary Abnormality of gait T4 spinal cord injury, sequela (HCC) Muscle spasticity Spasm of muscle Impaired motor control Other specified conditions influencing health status [facility] Encounter to establish care- Primary Other reasons for seeking consultation Incomplete spinal cord injury Unspecified site of spinal cord injury without evidence of spinal bone injury Factor 5 Leiden mutation, heterozygous (HCC) Primary hypercoagulable state Urinary retention Retention of urine, unspecified Neurogenic bladder Neurogenic bladder, NOS Weight gain Abnormal weight gain Factor 5 Leiden mutation, heterozygous (HCC)- Primary Primary hypercoagulable state Incomplete spinal cord injury Unspecified site of spinal cord injury without evidence of spinal bone injury Neurogenic bladder Neurogenic bladder, NOS Weight gain Abnormal weight gain Constipation Unspecified constipation Sinusitis Unspecified sinusitis (chronic) Urinary retention- Primary Retention of urine, unspecified Constipation Unspecified constipation Weight gain Abnormal weight gain Incomplete spinal cord injury Unspecified site of spinal cord injury without evidence of spinal bone injury Foot drop, left Other acquired deformity of ankle and foot Incomplete spinal cord injury- Primary Unspecified site of spinal cord injury without evidence of spinal bone injury Constipation Unspecified constipation Weight gain Abnormal weight gain Weight gain- Primary Abnormal weight gain Incomplete spinal cord injury Unspecified site of spinal cord injury without evidence of spinal bone injury ED (erectile dysfunction) Impotence of organic origin Constipation Unspecified constipation Pre-op evaluation- Primary Preoperative examination, unspecified Spasticity Abnormal involuntary movements Spinal cord injury, T7-T12 (HCC) T7-T12 level spinal cord injury without evidence of spinal bone injury, unspecified Tobacco abuse disorder Tobacco use disorder Asthma, unspecified asthma severity, unspecified whether complicated, unspecified whether persistent (HCC) History of pulmonary embolus (PE) Personal history of pulmonary embolism Factor 5 Leiden mutation, heterozygous (HCC) Primary hypercoagulable state Obesity, Class II, BMI 35-39.9 Obesity, unspecified Presence of intrathecal baclofen pump Other postprocedural status KARAN (obstructive sleep apnea) Obstructive sleep apnea (adult) (pediatric) Baclofen pump failure, subsequent encounter- Primary Spasticity Abnormal involuntary movements Therapeutic drug monitoring Encounter for therapeutic drug monitoring Infected drug delivery pump, subsequent encounter Baclofen pump failure, subsequent encounter Chronic pain syndrome Sepsis due to skin infection (HCC) Impaired instrumental activities of daily living Debility, unspecified Gait abnormality Abnormality of gait Foot drop, left Other acquired deformity of ankle and foot Asthma (HCC) Unspecified asthma Chronic pain syndrome Constipation Unspecified constipation Factor 5 Leiden mutation, heterozygous (HCC) Primary hypercoagulable state Gait abnormality Abnormality of gait History of pulmonary embolus (PE) Personal history of pulmonary embolism Impaired functional mobility, balance, gait, and endurance Impaired instrumental activities of daily living Debility, unspecified Nicotine use disorder, F17.2 Tobacco use disorder KARAN (obstructive sleep apnea) Obstructive sleep apnea (adult) (pediatric) Paraparesis of both lower limbs (HCC) Paraplegia Neurogenic bladder Neurogenic bladder, NOS Presence of intrathecal baclofen pump Other postprocedural status Tobacco abuse disorder Tobacco use disorder Spinal cord injury, T7-T12 (HCC) T7-T12 level spinal cord injury without evidence of spinal bone injury, unspecified Spasticity Abnormal involuntary movements Infected drug delivery pump, subsequent encounter Therapeutic drug monitoring Encounter for therapeutic drug monitoring Spinal cord injury, T7-T12 (HCC)- Primary T7-T12 level spinal cord injury without evidence of spinal bone injury, unspecified Paraplegia (HCC) Paraplegia Factor 5 Leiden mutation, heterozygous (HCC) Primary hypercoagulable state Tobacco abuse disorder Tobacco use disorder KARAN (obstructive sleep apnea) Obstructive sleep apnea (adult) (pediatric) Chronic pain syndrome Asthma, unspecified asthma severity, unspecified whether complicated, unspecified whether persistent (HCC) Neurogenic bladder Neurogenic bladder, NOS Recurrent UTI Urinary tract infection, site not specified History of pulmonary embolus (PE) Personal history of pulmonary embolism Pre-op evaluation Preoperative examination, unspecified Impingement syndrome of right shoulder- Primary Other affections of shoulder region, not elsewhere classified Impingement syndrome of left shoulder Other affections of shoulder region, not elsewhere classified [facility] Encounter to establish care- Primary Other reasons for seeking consultation Incomplete spinal cord injury Unspecified site of spinal cord injury without evidence of spinal bone injury Factor 5 Leiden mutation, heterozygous (HCC) Primary hypercoagulable state Urinary retention Retention of urine, unspecified Neurogenic bladder Neurogenic bladder, NOS Weight gain Abnormal weight gain Factor 5 Leiden mutation, heterozygous (HCC)- Primary Primary hypercoagulable state Incomplete spinal cord injury Unspecified site of spinal cord injury without evidence of spinal bone injury Neurogenic bladder Neurogenic bladder, NOS Weight gain Abnormal weight gain Constipation Unspecified constipation Sinusitis Unspecified sinusitis (chronic) Urinary retention- Primary Retention of urine, unspecified Constipation Unspecified constipation Weight gain Abnormal weight gain Incomplete spinal cord injury Unspecified site of spinal cord injury without evidence of spinal bone injury Foot drop, left Other acquired deformity of ankle and foot Incomplete spinal cord injury- Primary Unspecified site of spinal cord injury without evidence of spinal bone injury Constipation Unspecified constipation Weight gain Abnormal weight gain Weight gain- Primary Abnormal weight gain Incomplete spinal cord injury Unspecified site of spinal cord injury without evidence of spinal bone injury ED (erectile dysfunction) Impotence of organic origin Constipation Unspecified constipation Pre-op evaluation- Primary Preoperative examination, unspecified Spasticity Abnormal involuntary movements Spinal cord injury, T7-T12 ([facility]) T7-T12 level spinal cord injury without evidence of spinal bone injury, unspecified Tobacco abuse disorder Tobacco use disorder Asthma, unspecified asthma severity, unspecified whether complicated, unspecified whether persistent ([facility]) History of pulmonary embolus (PE) Personal history of pulmonary embolism Factor 5 Leiden mutation, heterozygous (HCC) Primary hypercoagulable state Obesity, Class II, BMI 35-39.9 Obesity, unspecified Presence of intrathecal baclofen pump Other postprocedural status KARAN (obstructive sleep apnea) Obstructive sleep apnea (adult) (pediatric) Baclofen pump failure, subsequent encounter- Primary Spasticity Abnormal involuntary movements Therapeutic drug monitoring Encounter for therapeutic drug monitoring Infected drug delivery pump, subsequent encounter Baclofen pump failure, subsequent encounter Chronic pain syndrome Sepsis due to skin infection ([facility]) Impaired instrumental activities of daily living Debility, unspecified Gait abnormality Abnormality of gait Foot drop, left Other acquired deformity of ankle and foot Asthma ([facility]) Unspecified asthma Chronic pain syndrome Constipation Unspecified constipation Factor 5 Leiden mutation, heterozygous (HCC) Primary hypercoagulable state Gait abnormality Abnormality of gait History of pulmonary embolus (PE) Personal history of pulmonary embolism Impaired functional mobility, balance, gait, and endurance Impaired instrumental activities of daily living Debility, unspecified Nicotine use disorder, F17.2 Tobacco use disorder KARAN (obstructive sleep apnea) Obstructive sleep apnea (adult) (pediatric) Paraparesis of both lower limbs (HCC) Paraplegia Neurogenic bladder Neurogenic bladder, NOS Presence of intrathecal baclofen pump Other postprocedural status Tobacco abuse disorder Tobacco use disorder Spinal cord injury, T7-T12 (HCC) T7-T12 level spinal cord injury without evidence of spinal bone injury, unspecified Spasticity Abnormal involuntary movements Infected drug delivery pump, subsequent encounter Therapeutic drug monitoring Encounter for therapeutic drug monitoring Spinal cord injury, T7-T12 (HCC)- Primary T7-T12 level spinal cord injury without evidence of spinal bone injury, unspecified Paraplegia (HCC) Paraplegia Factor 5 Leiden mutation, heterozygous (HCC) Primary hypercoagulable state Tobacco abuse disorder Tobacco use disorder KARAN (obstructive sleep apnea) Obstructive sleep apnea (adult) (pediatric) Chronic pain syndrome Asthma, unspecified asthma severity, unspecified whether complicated, unspecified whether persistent (HCC) Neurogenic bladder Neurogenic bladder, NOS Recurrent UTI Urinary tract infection, site not specified History of pulmonary embolus (PE) Personal history of pulmonary embolism Pre-op evaluation Preoperative examination, unspecified Gait abnormality- Primary Abnormality of gait T4 spinal cord injury, sequela (HCC) Paraplegia (HCC) Paraplegia Impaired motor control Other specified conditions influencing health status [facility] Encounter to establish care- Primary Other reasons for seeking consultation Incomplete spinal cord injury Unspecified site of spinal cord injury without evidence of spinal bone injury Factor 5 Leiden mutation, heterozygous (HCC) Primary hypercoagulable state Urinary retention Retention of urine, unspecified Neurogenic bladder Neurogenic bladder, NOS Weight gain Abnormal weight gain Factor 5 Leiden mutation, heterozygous (HCC)- Primary Primary hypercoagulable state Incomplete spinal cord injury Unspecified site of spinal cord injury without evidence of spinal bone injury Neurogenic bladder Neurogenic bladder, NOS Weight gain Abnormal weight gain Constipation Unspecified constipation Sinusitis Unspecified sinusitis (chronic) Urinary retention- Primary Retention of urine, unspecified Constipation Unspecified constipation Weight gain Abnormal weight gain Incomplete spinal cord injury Unspecified site of spinal cord injury without evidence of spinal bone injury Foot drop, left Other acquired deformity of ankle and foot Incomplete spinal cord injury- Primary Unspecified site of spinal cord injury without evidence of spinal bone injury Constipation Unspecified constipation Weight gain Abnormal weight gain Weight gain- Primary Abnormal weight gain Incomplete spinal cord injury Unspecified site of spinal cord injury without evidence of spinal bone injury ED (erectile dysfunction) Impotence of organic origin Constipation Unspecified constipation Pre-op evaluation- Primary Preoperative examination, unspecified Spasticity Abnormal involuntary movements Spinal cord injury, T7-T12 (HCC) T7-T12 level spinal cord injury without evidence of spinal bone injury, unspecified Tobacco abuse disorder Tobacco use disorder Asthma, unspecified asthma severity, unspecified whether complicated, unspecified whether persistent (HCC) History of pulmonary embolus (PE) Personal history of pulmonary embolism Factor 5 Leiden mutation, heterozygous (HCC) Primary hypercoagulable state Obesity, Class II, BMI 35-39.9 Obesity, unspecified Presence of intrathecal baclofen pump Other postprocedural status KARAN (obstructive sleep apnea) Obstructive sleep apnea (adult) (pediatric) Baclofen pump failure, subsequent encounter- Primary Spasticity Abnormal involuntary movements Therapeutic drug monitoring Encounter for therapeutic drug monitoring Infected drug delivery pump, subsequent encounter Baclofen pump failure, subsequent encounter Chronic pain syndrome Sepsis due to skin infection ([facility]) Impaired instrumental activities of daily living Debility, unspecified Gait abnormality Abnormality of gait Foot drop, left Other acquired deformity of ankle and foot Asthma (HCC) Unspecified asthma Chronic pain syndrome Constipation Unspecified constipation Factor 5 Leiden mutation, heterozygous (HCC) Primary hypercoagulable state Gait abnormality Abnormality of gait History of pulmonary embolus (PE) Personal history of pulmonary embolism Impaired functional mobility, balance, gait, and endurance Impaired instrumental activities of daily living Debility, unspecified Nicotine use disorder, F17.2 Tobacco use disorder KARAN (obstructive sleep apnea) Obstructive sleep apnea (adult) (pediatric) Paraparesis of both lower limbs (HCC) Paraplegia Neurogenic bladder Neurogenic bladder, NOS Presence of intrathecal baclofen pump Other postprocedural status Tobacco abuse disorder Tobacco use disorder Spinal cord injury, T7-T12 (HCC) T7-T12 level spinal cord injury without evidence of spinal bone injury, unspecified Spasticity Abnormal involuntary movements Infected drug delivery pump, subsequent encounter Therapeutic drug monitoring Encounter for therapeutic drug monitoring Spinal cord injury, T7-T12 (HCC)- Primary T7-T12 level spinal cord injury without evidence of spinal bone injury, unspecified Paraplegia (HCC) Paraplegia Factor 5 Leiden mutation, heterozygous (HCC) Primary hypercoagulable state Tobacco abuse disorder Tobacco use disorder KARAN (obstructive sleep apnea) Obstructive sleep apnea (adult) (pediatric) Chronic pain syndrome Asthma, unspecified asthma severity, unspecified whether complicated, unspecified whether persistent (HCC) Neurogenic bladder Neurogenic bladder, NOS Recurrent UTI Urinary tract infection, site not specified History of pulmonary embolus (PE) Personal history of pulmonary embolism Pre-op evaluation Preoperative examination, unspecified Paraplegia (HCC)- Primary Paraplegia Gait abnormality Abnormality of gait T4 spinal cord injury, sequela (HCC) Impaired motor control Other specified conditions influencing health status Impingement syndrome of right shoulder Other affections of shoulder region, not elsewhere classified [facility] En[facility] to establish care- Primary Other reasons for seeking consultation Incomplete spinal cord injury Unspecified site of spinal cord injury without evidence of spinal bone injury Factor 5 Leiden mutation, heterozygous (HCC) Primary hypercoagulable state Urinary retention Retention of urine, unspecified Neurogenic bladder Neurogenic bladder, NOS Weight gain Abnormal weight gain Factor 5 Leiden mutation, heterozygous (HCC)- Primary Primary hypercoagulable state Incomplete spinal cord injury Unspecified site of spinal cord injury without evidence of spinal bone injury Neurogenic bladder Neurogenic bladder, NOS Weight gain Abnormal weight gain Constipation Unspecified constipation Sinusitis Unspecified sinusitis (chronic) Urinary retention- Primary Retention of urine, unspecified Constipation Unspecified constipation Weight gain Abnormal weight gain Incomplete spinal cord injury Unspecified site of spinal cord injury without evidence of spinal bone injury Foot drop, left Other acquired deformity of ankle and foot Incomplete spinal cord injury- Primary Unspecified site of spinal cord injury without evidence of spinal bone injury Constipation Unspecified constipation Weight gain Abnormal weight gain Weight gain- Primary Abnormal weight gain Incomplete spinal cord injury Unspecified site of spinal cord injury without evidence of spinal bone injury ED (erectile dysfunction) Impotence of organic origin Constipation Unspecified constipation Pre-op evaluation- Primary Preoperative examination, unspecified Spasticity Abnormal involuntary movements Spinal cord injury, T7-T12 (HCC) T7-T12 level spinal cord injury without evidence of spinal bone injury, unspecified Tobacco abuse disorder Tobacco use disorder Asthma, unspecified asthma severity, unspecified whether complicated, unspecified whether persistent (HCC) History of pulmonary embolus (PE) Personal history of pulmonary embolism Factor 5 Leiden mutation, heterozygous (HCC) Primary hypercoagulable state Obesity, Class II, BMI 35-39.9 Obesity, unspecified Presence of intrathecal baclofen pump Other postprocedural status KARAN (obstructive sleep apnea) Obstructive sleep apnea (adult) (pediatric) Baclofen pump failure, subsequent encounter- Primary Spasticity Abnormal involuntary movements Therapeutic drug monitoring Encounter for therapeutic drug monitoring Infected drug delivery pump, subsequent encounter Baclofen pump failure, subsequent encounter Chronic pain syndrome Sepsis due to skin infection (HCC) Impaired instrumental activities of daily living Debility, unspecified Gait abnormality Abnormality of gait Foot drop, left Other acquired deformity of ankle and foot Asthma (HCC) Unspecified asthma Chronic pain syndrome Constipation Unspecified constipation Factor 5 Leiden mutation, heterozygous (HCC) Primary hypercoagulable state Gait abnormality Abnormality of gait History of pulmonary embolus (PE) Personal history of pulmonary embolism Impaired functional mobility, balance, gait, and endurance Impaired instrumental activities of daily living Debility, unspecified Nicotine use disorder, F17.2 Tobacco use disorder KARAN (obstructive sleep apnea) Obstructive sleep apnea (adult) (pediatric) Paraparesis of both lower limbs (HCC) Paraplegia Neurogenic bladder Neurogenic bladder, NOS Presence of intrathecal baclofen pump Other postprocedural status Tobacco abuse disorder Tobacco use disorder Spinal cord injury, T7-T12 (HCC) T7-T12 level spinal cord injury without evidence of spinal bone injury, unspecified Spasticity Abnormal involuntary movements Infected drug delivery pump, subsequent encounter Therapeutic drug monitoring Encounter for therapeutic drug monitoring Spinal cord injury, T7-T12 ([facility])- Primary T7-T12 level spinal cord injury without evidence of spinal bone injury, unspecified Paraplegia (HCC) Paraplegia Factor 5 Leiden mutation, heterozygous (HCC) Primary hypercoagulable state Tobacco abuse disorder Tobacco use disorder KARAN (obstructive sleep apnea) Obstructive sleep apnea (adult) (pediatric) Chronic pain syndrome Asthma, unspecified asthma severity, unspecified whether complicated, unspecified whether persistent (HCC) Neurogenic bladder Neurogenic bladder, NOS Recurrent UTI Urinary tract infection, site not specified History of pulmonary embolus (PE) Personal history of pulmonary embolism Pre-op evaluation Preoperative examination, unspecified Impingement syndrome of right shoulder- Primary Other affections of shoulder region, not elsewhere classified Impingement syndrome of left shoulder Other affections of shoulder region, not elsewhere classified [facility] Encounter to establish care- Primary Other reasons for seeking consultation Incomplete spinal cord injury Unspecified site of spinal cord injury without evidence of spinal bone injury Factor 5 Leiden mutation, heterozygous (HCC) Primary hypercoagulable state Urinary retention Retention of urine, unspecified Neurogenic bladder Neurogenic bladder, NOS Weight gain Abnormal weight gain Factor 5 Leiden mutation, heterozygous (HCC)- Primary Primary hypercoagulable state Incomplete spinal cord injury Unspecified site of spinal cord injury without evidence of spinal bone injury Neurogenic bladder Neurogenic bladder, NOS Weight gain Abnormal weight gain Constipation Unspecified constipation Sinusitis Unspecified sinusitis (chronic) Urinary retention- Primary Retention of urine, unspecified Constipation Unspecified constipation Weight gain Abnormal weight gain Incomplete spinal cord injury Unspecified site of spinal cord injury without evidence of spinal bone injury Foot drop, left Other acquired deformity of ankle and foot Incomplete spinal cord injury- Primary Unspecified site of spinal cord injury without evidence of spinal bone injury Constipation Unspecified constipation Weight gain Abnormal weight gain Weight gain- Primary Abnormal weight gain Incomplete spinal cord injury Unspecified site of spinal cord injury without evidence of spinal bone injury ED (erectile dysfunction) Impotence of organic origin Constipation Unspecified constipation Pre-op evaluation- Primary Preoperative examination, unspecified Spasticity Abnormal involuntary movements Spinal cord injury, T7-T12 ([facility]) T7-T12 level spinal cord injury without evidence of spinal bone injury, unspecified Tobacco abuse disorder Tobacco use disorder Asthma, unspecified asthma severity, unspecified whether complicated, unspecified whether persistent (HCC) History of pulmonary embolus (PE) Personal history of pulmonary embolism Factor 5 Leiden mutation, heterozygous (HCC) Primary hypercoagulable state Obesity, Class II, BMI 35-39.9 Obesity, unspecified Presence of intrathecal baclofen pump Other postprocedural status KARAN (obstructive sleep apnea) Obstructive sleep apnea (adult) (pediatric) Baclofen pump failure, subsequent encounter- Primary Spasticity Abnormal involuntary movements Therapeutic drug monitoring Encounter for therapeutic drug monitoring Infected drug delivery pump, subsequent encounter Baclofen pump failure, subsequent encounter Chronic pain syndrome Sepsis due to skin infection (HCC) Impaired instrumental activities of daily living Debility, unspecified Gait abnormality Abnormality of gait Foot drop, left Other acquired deformity of ankle and foot Asthma (HCC) Unspecified asthma Chronic pain syndrome Constipation Unspecified constipation Factor 5 Leiden mutation, heterozygous ([facility]) Primary hypercoagulable state Gait abnormality Abnormality of gait History of pulmonary embolus (PE) Personal history of pulmonary embolism Impaired functional mobility, balance, gait, and endurance Impaired instrumental activities of daily living Debility, unspecified Nicotine use disorder, F17.2 Tobacco use disorder KARAN (obstructive sleep apnea) Obstructive sleep apnea (adult) (pediatric) Paraparesis of both lower limbs (HCC) Paraplegia Neurogenic bladder Neurogenic bladder, NOS Presence of intrathecal baclofen pump Other postprocedural status Tobacco abuse disorder Tobacco use disorder Spinal cord injury, T7-T12 ([facility]) T7-T12 level spinal cord injury without evidence of spinal bone injury, unspecified Spasticity Abnormal involuntary movements Infected drug delivery pump, subsequent encounter Therapeutic drug monitoring Encounter for therapeutic drug monitoring Spinal cord injury, T7-T12 (HCC)- Primary T7-T12 level spinal cord injury without evidence of spinal bone injury, unspecified Paraplegia (HCC) Paraplegia Factor 5 Leiden mutation, heterozygous (HCC) Primary hypercoagulable state Tobacco abuse disorder Tobacco use disorder KARAN (obstructive sleep apnea) Obstructive sleep apnea (adult) (pediatric) Chronic pain syndrome Asthma, unspecified asthma severity, unspecified whether complicated, unspecified whether persistent (HCC) Neurogenic bladder Neurogenic bladder, NOS Recurrent UTI Urinary tract infection, site not specified History of pulmonary embolus (PE) Personal history of pulmonary embolism Pre-op evaluation Preoperative examination, unspecified Paraplegia (HCC)- Primary Paraplegia Impaired motor control Other specified conditions influencing health status Gait abnormality Abnormality of gait Muscle spasticity Spasm of muscle Impaired functional mobility, balance, gait, and endurance [facility] Encounter to establish care- Primary Other reasons for seeking consultation Incomplete spinal cord injury Unspecified site of spinal cord injury without evidence of spinal bone injury Factor 5 Leiden mutation, heterozygous (HCC) Primary hypercoagulable state Urinary retention Retention of urine, unspecified Neurogenic bladder Neurogenic bladder, NOS Weight gain Abnormal weight gain Factor 5 Leiden mutation, heterozygous (HCC)- Primary Primary hypercoagulable state Incomplete spinal cord injury Unspecified site of spinal cord injury without evidence of spinal bone injury Neurogenic bladder Neurogenic bladder, NOS Weight gain Abnormal weight gain Constipation Unspecified constipation Sinusitis Unspecified sinusitis (chronic) Urinary retention- Primary Retention of urine, unspecified Constipation Unspecified constipation Weight gain Abnormal weight gain Incomplete spinal cord injury Unspecified site of spinal cord injury without evidence of spinal bone injury Foot drop, left Other acquired deformity of ankle and foot Incomplete spinal cord injury- Primary Unspecified site of spinal cord injury without evidence of spinal bone injury Constipation Unspecified constipation Weight gain Abnormal weight gain Weight gain- Primary Abnormal weight gain Incomplete spinal cord injury Unspecified site of spinal cord injury without evidence of spinal bone injury ED (erectile dysfunction) Impotence of organic origin Constipation Unspecified constipation Pre-op evaluation- Primary Preoperative examination, unspecified Spasticity Abnormal involuntary movements Spinal cord injury, T7-T12 (HCC) T7-T12 level spinal cord injury without evidence of spinal bone injury, unspecified Tobacco abuse disorder Tobacco use disorder Asthma, unspecified asthma severity, unspecified whether complicated, unspecified whether persistent (HCC) History of pulmonary embolus (PE) Personal history of pulmonary embolism Factor 5 Leiden mutation, heterozygous (HCC) Primary hypercoagulable state Obesity, Class II, BMI 35-39.9 Obesity, unspecified Presence of intrathecal baclofen pump Other postprocedural status KARAN (obstructive sleep apnea) Obstructive sleep apnea (adult) (pediatric) Baclofen pump failure, subsequent encounter- Primary Spasticity Abnormal involuntary movements Therapeutic drug monitoring Encounter for therapeutic drug monitoring Infected drug delivery pump, subsequent encounter Baclofen pump failure, subsequent encounter Chronic pain syndrome Sepsis due to skin infection (HCC) Impaired instrumental activities of daily living Debility, unspecified Gait abnormality Abnormality of gait Foot drop, left Other acquired deformity of ankle and foot Asthma (HCC) Unspecified asthma Chronic pain syndrome Constipation Unspecified constipation Factor 5 Leiden mutation, heterozygous (HCC) Primary hypercoagulable state Gait abnormality Abnormality of gait History of pulmonary embolus (PE) Personal history of pulmonary embolism Impaired functional mobility, balance, gait, and endurance Impaired instrumental activities of daily living Debility, unspecified Nicotine use disorder, F17.2 Tobacco use disorder KARAN (obstructive sleep apnea) Obstructive sleep apnea (adult) (pediatric) Paraparesis of both lower limbs (HCC) Paraplegia Neurogenic bladder Neurogenic bladder, NOS Presence of intrathecal baclofen pump Other postprocedural status Tobacco abuse disorder Tobacco use disorder Spinal cord injury, T7-T12 (HCC) T7-T12 level spinal cord injury without evidence of spinal bone injury, unspecified Spasticity Abnormal involuntary movements Infected drug delivery pump, subsequent encounter Therapeutic drug monitoring Encounter for therapeutic drug monitoring Spinal cord injury, T7-T12 (HCC)- Primary T7-T12 level spinal cord injury without evidence of spinal bone injury, unspecified Paraplegia (HCC) Paraplegia Factor 5 Leiden mutation, heterozygous (HCC) Primary hypercoagulable state Tobacco abuse disorder Tobacco use disorder KARAN (obstructive sleep apnea) Obstructive sleep apnea (adult) (pediatric) Chronic pain syndrome Asthma, unspecified asthma severity, unspecified whether complicated, unspecified whether persistent (HCC) Neurogenic bladder Neurogenic bladder, NOS Recurrent UTI Urinary tract infection, site not specified History of pulmonary embolus (PE) Personal history of pulmonary embolism Pre-op evaluation Preoperative examination, unspecified Fever, unspecified fever cause- Primary Urinary frequency [facility] Encounter to establish care- Primary Other reasons for seeking consultation Incomplete spinal cord injury Unspecified site of spinal cord injury without evidence of spinal bone injury Factor 5 Leiden mutation, heterozygous (HCC) Primary hypercoagulable state Urinary retention Retention of urine, unspecified Neurogenic bladder Neurogenic bladder, NOS Weight gain Abnormal weight gain Factor 5 Leiden mutation, heterozygous (HCC)- Primary Primary hypercoagulable state Incomplete spinal cord injury Unspecified site of spinal cord injury without evidence of spinal bone injury Neurogenic bladder Neurogenic bladder, NOS Weight gain Abnormal weight gain Constipation Unspecified constipation Sinusitis Unspecified sinusitis (chronic) Urinary retention- Primary Retention of urine, unspecified Constipation Unspecified constipation Weight gain Abnormal weight gain Incomplete spinal cord injury Unspecified site of spinal cord injury without evidence of spinal bone injury Foot drop, left Other acquired deformity of ankle and foot Incomplete spinal cord injury- Primary Unspecified site of spinal cord injury without evidence of spinal bone injury Constipation Unspecified constipation Weight gain Abnormal weight gain Weight gain- Primary Abnormal weight gain Incomplete spinal cord injury Unspecified site of spinal cord injury without evidence of spinal bone injury ED (erectile dysfunction) Impotence of organic origin Constipation Unspecified constipation Pre-op evaluation- Primary Preoperative examination, unspecified Spasticity Abnormal involuntary movements Spinal cord injury, T7-T12 (HCC) T7-T12 level spinal cord injury without evidence of spinal bone injury, unspecified Tobacco abuse disorder Tobacco use disorder Asthma, unspecified asthma severity, unspecified whether complicated, unspecified whether persistent (HCC) History of pulmonary embolus (PE) Personal history of pulmonary embolism Factor 5 Leiden mutation, heterozygous (HCC) Primary hypercoagulable state Obesity, Class II, BMI 35-39.9 Obesity, unspecified Presence of intrathecal baclofen pump Other postprocedural status KARAN (obstructive sleep apnea) Obstructive sleep apnea (adult) (pediatric) Baclofen pump failure, subsequent encounter- Primary Spasticity Abnormal involuntary movements Therapeutic drug monitoring Encounter for therapeutic drug monitoring Infected drug delivery pump, subsequent encounter Baclofen pump failure, subsequent encounter Chronic pain syndrome Sepsis due to skin infection (HCC) Impaired instrumental activities of daily living Debility, unspecified Gait abnormality Abnormality of gait Foot drop, left Other acquired deformity of ankle and foot Asthma (HCC) Unspecified asthma Chronic pain syndrome Constipation Unspecified constipation Factor 5 Leiden mutation, heterozygous (HCC) Primary hypercoagulable state Gait abnormality Abnormality of gait History of pulmonary embolus (PE) Personal history of pulmonary embolism Impaired functional mobility, balance, gait, and endurance Impaired instrumental activities of daily living Debility, unspecified Nicotine use disorder, F17.2 Tobacco use disorder KARAN (obstructive sleep apnea) Obstructive sleep apnea (adult) (pediatric) Paraparesis of both lower limbs (HCC) Paraplegia Neurogenic bladder Neurogenic bladder, NOS Presence of intrathecal baclofen pump Other postprocedural status Tobacco abuse disorder Tobacco use disorder Spinal cord injury, T7-T12 (HCC) T7-T12 level spinal cord injury without evidence of spinal bone injury, unspecified Spasticity Abnormal involuntary movements Infected drug delivery pump, subsequent encounter Therapeutic drug monitoring Encounter for therapeutic drug monitoring Spinal cord injury, T7-T12 (HCC)- Primary T7-T12 level spinal cord injury without evidence of spinal bone injury, unspecified Paraplegia (HCC) Paraplegia Factor 5 Leiden mutation, heterozygous (HCC) Primary hypercoagulable state Tobacco abuse disorder Tobacco use disorder KARAN (obstructive sleep apnea) Obstructive sleep apnea (adult) (pediatric) Chronic pain syndrome Asthma, unspecified asthma severity, unspecified whether complicated, unspecified whether persistent (HCC) Neurogenic bladder Neurogenic bladder, NOS Recurrent UTI Urinary tract infection, site not specified History of pulmonary embolus (PE) Personal history of pulmonary embolism Pre-op evaluation Preoperative examination, unspecified Onychomycosis Dermatophytosis of nail Ingrown toenail Ingrowing nail [facility] Encounter to establish care- Primary Other reasons for seeking consultation Incomplete spinal cord injury Unspecified site of spinal cord injury without evidence of spinal bone injury Factor 5 Leiden mutation, heterozygous (HCC) Primary hypercoagulable state Urinary retention Retention of urine, unspecified Neurogenic bladder Neurogenic bladder, NOS Weight gain Abnormal weight gain Factor 5 Leiden mutation, heterozygous (HCC)- Primary Primary hypercoagulable state Incomplete spinal cord injury Unspecified site of spinal cord injury without evidence of spinal bone injury Neurogenic bladder Neurogenic bladder, NOS Weight gain Abnormal weight gain Constipation Unspecified constipation Sinusitis Unspecified sinusitis (chronic) Urinary retention- Primary Retention of urine, unspecified Constipation Unspecified constipation Weight gain Abnormal weight gain Incomplete spinal cord injury Unspecified site of spinal cord injury without evidence of spinal bone injury Foot drop, left Other acquired deformity of ankle and foot Incomplete spinal cord injury- Primary Unspecified site of spinal cord injury without evidence of spinal bone injury Constipation Unspecified constipation Weight gain Abnormal weight gain Weight gain- Primary Abnormal weight gain Incomplete spinal cord injury Unspecified site of spinal cord injury without evidence of spinal bone injury ED (erectile dysfunction) Impotence of organic origin Constipation Unspecified constipation Pre-op evaluation- Primary Preoperative examination, unspecified Spasticity Abnormal involuntary movements Spinal cord injury, T7-T12 (HCC) T7-T12 level spinal cord injury without evidence of spinal bone injury, unspecified Tobacco abuse disorder Tobacco use disorder Asthma, unspecified asthma severity, unspecified whether complicated, unspecified whether persistent (HCC) History of pulmonary embolus (PE) Personal history of pulmonary embolism Factor 5 Leiden mutation, heterozygous (HCC) Primary hypercoagulable state Obesity, Class II, BMI 35-39.9 Obesity, unspecified Presence of intrathecal baclofen pump Other postprocedural status KARAN (obstructive sleep apnea) Obstructive sleep apnea (adult) (pediatric) Baclofen pump failure, subsequent encounter- Primary Spasticity Abnormal involuntary movements Therapeutic drug monitoring Encounter for therapeutic drug monitoring Infected drug delivery pump, subsequent encounter Baclofen pump failure, subsequent encounter Chronic pain syndrome Sepsis due to skin infection (HCC) Impaired instrumental activities of daily living Debility, unspecified Gait abnormality Abnormality of gait Foot drop, left Other acquired deformity of ankle and foot Asthma (HCC) Unspecified asthma Chronic pain syndrome Constipation Unspecified constipation Factor 5 Leiden mutation, heterozygous (HCC) Primary hypercoagulable state Gait abnormality Abnormality of gait History of pulmonary embolus (PE) Personal history of pulmonary embolism Impaired functional mobility, balance, gait, and endurance Impaired instrumental activities of daily living Debility, unspecified Nicotine use disorder, F17.2 Tobacco use disorder KARAN (obstructive sleep apnea) Obstructive sleep apnea (adult) (pediatric) Paraparesis of both lower limbs (HCC) Paraplegia Neurogenic bladder Neurogenic bladder, NOS Presence of intrathecal baclofen pump Other postprocedural status Tobacco abuse disorder Tobacco use disorder Spinal cord injury, T7-T12 (HCC) T7-T12 level spinal cord injury without evidence of spinal bone injury, unspecified Spasticity Abnormal involuntary movements Infected drug delivery pump, subsequent encounter Therapeutic drug monitoring Encounter for therapeutic drug monitoring Spinal cord injury, T7-T12 (HCC)- Primary T7-T12 level spinal cord injury without evidence of spinal bone injury, unspecified Paraplegia (HCC) Paraplegia Factor 5 Leiden mutation, heterozygous (HCC) Primary hypercoagulable state Tobacco abuse disorder Tobacco use disorder KARAN (obstructive sleep apnea) Obstructive sleep apnea (adult) (pediatric) Chronic pain syndrome Asthma, unspecified asthma severity, unspecified whether complicated, unspecified whether persistent (HCC) Neurogenic bladder Neurogenic bladder, NOS Recurrent UTI Urinary tract infection, site not specified History of pulmonary embolus (PE) Personal history of pulmonary embolism Pre-op evaluation Preoperative examination, unspecified Paraplegia (HCC)- Primary Paraplegia Gait abnormality Abnormality of gait Muscle spasticity Spasm of muscle Impaired functional mobility, balance, gait, and endurance [facility] Diagnosis Encounter to establish care- Primary Other reasons for seeking consultation Incomplete spinal cord injury Unspecified site of spinal cord injury without evidence of spinal bone injury Factor 5 Leiden mutation, heterozygous (HCC) Primary hypercoagulable state Urinary retention Retention of urine, unspecified Neurogenic bladder Neurogenic bladder, NOS Weight gain Abnormal weight gain Factor 5 Leiden mutation, heterozygous (HCC)- Primary Primary hypercoagulable state Incomplete spinal cord injury Unspecified site of spinal cord injury without evidence of spinal bone injury Neurogenic bladder Neurogenic bladder, NOS Weight gain Abnormal weight gain Constipation Unspecified constipation Sinusitis Unspecified sinusitis (chronic) Urinary retention- Primary Retention of urine, unspecified Constipation Unspecified constipation Weight gain Abnormal weight gain Incomplete spinal cord injury Unspecified site of spinal cord injury without evidence of spinal bone injury Foot drop, left Other acquired deformity of ankle and foot Incomplete spinal cord injury- Primary Unspecified site of spinal cord injury without evidence of spinal bone injury Constipation Unspecified constipation Weight gain Abnormal weight gain Weight gain- Primary Abnormal weight gain Incomplete spinal cord injury Unspecified site of spinal cord injury without evidence of spinal bone injury ED (erectile dysfunction) Impotence of organic origin Constipation Unspecified constipation Pre-op evaluation- Primary Preoperative examination, unspecified Spasticity Abnormal involuntary movements Spinal cord injury, T7-T12 (HCC) T7-T12 level spinal cord injury without evidence of spinal bone injury, unspecified Tobacco abuse disorder Tobacco use disorder Asthma, unspecified asthma severity, unspecified whether complicated, unspecified whether persistent (HCC) History of pulmonary embolus (PE) Personal history of pulmonary embolism Factor 5 Leiden mutation, heterozygous (HCC) Primary hypercoagulable state Obesity, Class II, BMI 35-39.9 Obesity, unspecified Presence of intrathecal baclofen pump Other postprocedural status KARAN (obstructive sleep apnea) Obstructive sleep apnea (adult) (pediatric) Baclofen pump failure, subsequent encounter- Primary Spasticity Abnormal involuntary movements Therapeutic drug monitoring Encounter for therapeutic drug monitoring Infected drug delivery pump, subsequent encounter Baclofen pump failure, subsequent encounter Chronic pain syndrome Sepsis due to skin infection (HCC) Impaired instrumental activities of daily living Debility, unspecified Gait abnormality Abnormality of gait Foot drop, left Other acquired deformity of ankle and foot Asthma (HCC) Unspecified asthma Chronic pain syndrome Constipation Unspecified constipation Factor 5 Leiden mutation, heterozygous (HCC) Primary hypercoagulable state Gait abnormality Abnormality of gait History of pulmonary embolus (PE) Personal history of pulmonary embolism Impaired functional mobility, balance, gait, and endurance Impaired instrumental activities of daily living Debility, unspecified Nicotine use disorder, F17.2 Tobacco use disorder KARAN (obstructive sleep apnea) Obstructive sleep apnea (adult) (pediatric) Paraparesis of both lower limbs (HCC) Paraplegia Neurogenic bladder Neurogenic bladder, NOS Presence of intrathecal baclofen pump Other postprocedural status Tobacco abuse disorder Tobacco use disorder Spinal cord injury, T7-T12 (HCC) T7-T12 level spinal cord injury without evidence of spinal bone injury, unspecified Spasticity Abnormal involuntary movements Infected drug delivery pump, subsequent encounter Therapeutic drug monitoring Encounter for therapeutic drug monitoring Spinal cord injury, T7-T12 ([facility])- Primary T7-T12 level spinal cord injury without evidence of spinal bone injury, unspecified Paraplegia (HCC) Paraplegia Factor 5 Leiden mutation, heterozygous (HCC) Primary hypercoagulable state Tobacco abuse disorder Tobacco use disorder KARAN (obstructive sleep apnea) Obstructive sleep apnea (adult) (pediatric) Chronic pain syndrome Asthma, unspecified asthma severity, unspecified whether complicated, unspecified whether persistent (HCC) Neurogenic bladder Neurogenic bladder, NOS Recurrent UTI Urinary tract infection, site not specified History of pulmonary embolus (PE) Personal history of pulmonary embolism Pre-op evaluation Preoperative examination, unspecified Paraplegia (HCC)- Primary Paraplegia Gait abnormality Abnormality of gait Muscle spasticity Spasm of muscle [facility] Encounter to establish care- Primary Other reasons for seeking consultation Incomplete spinal cord injury Unspecified site of spinal cord injury without evidence of spinal bone injury Factor 5 Leiden mutation, heterozygous (HCC) Primary hypercoagulable state Urinary retention Retention of urine, unspecified Neurogenic bladder Neurogenic bladder, NOS Weight gain Abnormal weight gain Factor 5 Leiden mutation, heterozygous (HCC)- Primary Primary hypercoagulable state Incomplete spinal cord injury Unspecified site of spinal cord injury without evidence of spinal bone injury Neurogenic bladder Neurogenic bladder, NOS Weight gain Abnormal weight gain Constipation Unspecified constipation Sinusitis Unspecified sinusitis (chronic) Urinary retention- Primary Retention of urine, unspecified Constipation Unspecified constipation Weight gain Abnormal weight gain Incomplete spinal cord injury Unspecified site of spinal cord injury without evidence of spinal bone injury Foot drop, left Other acquired deformity of ankle and foot Incomplete spinal cord injury- Primary Unspecified site of spinal cord injury without evidence of spinal bone injury Constipation Unspecified constipation Weight gain Abnormal weight gain Weight gain- Primary Abnormal weight gain Incomplete spinal cord injury Unspecified site of spinal cord injury without evidence of spinal bone injury ED (erectile dysfunction) Impotence of organic origin Constipation Unspecified constipation Pre-op evaluation- Primary Preoperative examination, unspecified Spasticity Abnormal involuntary movements Spinal cord injury, T7-T12 ([facility]) T7-T12 level spinal cord injury without evidence of spinal bone injury, unspecified Tobacco abuse disorder Tobacco use disorder Asthma, unspecified asthma severity, unspecified whether complicated, unspecified whether persistent ([facility]) History of pulmonary embolus (PE) Personal history of pulmonary embolism Factor 5 Leiden mutation, heterozygous (HCC) Primary hypercoagulable state Obesity, Class II, BMI 35-39.9 Obesity, unspecified Presence of intrathecal baclofen pump Other postprocedural status KARAN (obstructive sleep apnea) Obstructive sleep apnea (adult) (pediatric) Baclofen pump failure, subsequent encounter- Primary Spasticity Abnormal involuntary movements Therapeutic drug monitoring Encounter for therapeutic drug monitoring Infected drug delivery pump, subsequent encounter Baclofen pump failure, subsequent encounter Chronic pain syndrome Sepsis due to skin infection ([facility]) Impaired instrumental activities of daily living Debility, unspecified Gait abnormality Abnormality of gait Foot drop, left Other acquired deformity of ankle and foot Asthma (HCC) Unspecified asthma Chronic pain syndrome Constipation Unspecified constipation Factor 5 Leiden mutation, heterozygous (HCC) Primary hypercoagulable state Gait abnormality Abnormality of gait History of pulmonary embolus (PE) Personal history of pulmonary embolism Impaired functional mobility, balance, gait, and endurance Impaired instrumental activities of daily living Debility, unspecified Nicotine use disorder, F17.2 Tobacco use disorder KARAN (obstructive sleep apnea) Obstructive sleep apnea (adult) (pediatric) Paraparesis of both lower limbs ([facility]) Paraplegia Neurogenic bladder Neurogenic bladder, NOS Presence of intrathecal baclofen pump Other postprocedural status Tobacco abuse disorder Tobacco use disorder Spinal cord injury, T7-T12 ([facility]) T7-T12 level spinal cord injury without evidence of spinal bone injury, unspecified Spasticity Abnormal involuntary movements Infected drug delivery pump, subsequent encounter Therapeutic drug monitoring Encounter for therapeutic drug monitoring Spinal cord injury, T7-T12 (HCC)- Primary T7-T12 level spinal cord injury without evidence of spinal bone injury, unspecified Paraplegia (HCC) Paraplegia Factor 5 Leiden mutation, heterozygous (HCC) Primary hypercoagulable state Tobacco abuse disorder Tobacco use disorder KARAN (obstructive sleep apnea) Obstructive sleep apnea (adult) (pediatric) Chronic pain syndrome Asthma, unspecified asthma severity, unspecified whether complicated, unspecified whether persistent (HCC) Neurogenic bladder Neurogenic bladder, NOS Recurrent UTI Urinary tract infection, site not specified History of pulmonary embolus (PE) Personal history of pulmonary embolism Pre-op evaluation Preoperative examination, unspecified Impingement syndrome of right shoulder- Primary Other affections of shoulder region, not elsewhere classified Impingement syndrome of left shoulder Other affections of shoulder region, not elsewhere classified [facility] Encounter to establish care- Primary Other reasons for seeking consultation Incomplete spinal cord injury Unspecified site of spinal cord injury without evidence of spinal bone injury Factor 5 Leiden mutation, heterozygous (HCC) Primary hypercoagulable state Urinary retention Retention of urine, unspecified Neurogenic bladder Neurogenic bladder, NOS Weight gain Abnormal weight gain Factor 5 Leiden mutation, heterozygous (HCC)- Primary Primary hypercoagulable state Incomplete spinal cord injury Unspecified site of spinal cord injury without evidence of spinal bone injury Neurogenic bladder Neurogenic bladder, NOS Weight gain Abnormal weight gain Constipation Unspecified constipation Sinusitis Unspecified sinusitis (chronic) Urinary retention- Primary Retention of urine, unspecified Constipation Unspecified constipation Weight gain Abnormal weight gain Incomplete spinal cord injury Unspecified site of spinal cord injury without evidence of spinal bone injury Foot drop, left Other acquired deformity of ankle and foot Incomplete spinal cord injury- Primary Unspecified site of spinal cord injury without evidence of spinal bone injury Constipation Unspecified constipation Weight gain Abnormal weight gain Weight gain- Primary Abnormal weight gain Incomplete spinal cord injury Unspecified site of spinal cord injury without evidence of spinal bone injury ED (erectile dysfunction) Impotence of organic origin Constipation Unspecified constipation Pre-op evaluation- Primary Preoperative examination, unspecified Spasticity Abnormal involuntary movements Spinal cord injury, T7-T12 (HCC) T7-T12 level spinal cord injury without evidence of spinal bone injury, unspecified Tobacco abuse disorder Tobacco use disorder Asthma, unspecified asthma severity, unspecified whether complicated, unspecified whether persistent (HCC) History of pulmonary embolus (PE) Personal history of pulmonary embolism Factor 5 Leiden mutation, heterozygous (HCC) Primary hypercoagulable state Obesity, Class II, BMI 35-39.9 Obesity, unspecified Presence of intrathecal baclofen pump Other postprocedural status KARAN (obstructive sleep apnea) Obstructive sleep apnea (adult) (pediatric) Baclofen pump failure, subsequent encounter- Primary Spasticity Abnormal involuntary movements Therapeutic drug monitoring Encounter for therapeutic drug monitoring Infected drug delivery pump, subsequent encounter Baclofen pump failure, subsequent encounter Chronic pain syndrome Sepsis due to skin infection (HCC) Impaired instrumental activities of daily living Debility, unspecified Gait abnormality Abnormality of gait Foot drop, left Other acquired deformity of ankle and foot Asthma (HCC) Unspecified asthma Chronic pain syndrome Constipation Unspecified constipation Factor 5 Leiden mutation, heterozygous (HCC) Primary hypercoagulable state Gait abnormality Abnormality of gait History of pulmonary embolus (PE) Personal history of pulmonary embolism Impaired functional mobility, balance, gait, and endurance Impaired instrumental activities of daily living Debility, unspecified Nicotine use disorder, F17.2 Tobacco use disorder KARAN (obstructive sleep apnea) Obstructive sleep apnea (adult) (pediatric) Paraparesis of both lower limbs (HCC) Paraplegia Neurogenic bladder Neurogenic bladder, NOS Presence of intrathecal baclofen pump Other postprocedural status Tobacco abuse disorder Tobacco use disorder Spinal cord injury, T7-T12 (HCC) T7-T12 level spinal cord injury without evidence of spinal bone injury, unspecified Spasticity Abnormal involuntary movements Infected drug delivery pump, subsequent encounter Therapeutic drug monitoring Encounter for therapeutic drug monitoring Spinal cord injury, T7-T12 (HCC)- Primary T7-T12 level spinal cord injury without evidence of spinal bone injury, unspecified Paraplegia (HCC) Paraplegia Factor 5 Leiden mutation, heterozygous (HCC) Primary hypercoagulable state Tobacco abuse disorder Tobacco use disorder KARAN (obstructive sleep apnea) Obstructive sleep apnea (adult) (pediatric) Chronic pain syndrome Asthma, unspecified asthma severity, unspecified whether complicated, unspecified whether persistent (HCC) Neurogenic bladder Neurogenic bladder, NOS Recurrent UTI Urinary tract infection, site not specified History of pulmonary embolus (PE) Personal history of pulmonary embolism Pre-op evaluation Preoperative examination, unspecified Paraplegia (HCC)- Primary Paraplegia Impaired motor control Other specified conditions influencing health status Gait abnormality Abnormality of gait T4 spinal cord injury, sequela (HCC) [facility] Encounter to establish care- Primary Other reasons for seeking consultation Incomplete spinal cord injury Unspecified site of spinal cord injury without evidence of spinal bone injury Factor 5 Leiden mutation, heterozygous (HCC) Primary hypercoagulable state Urinary retention Retention of urine, unspecified Neurogenic bladder Neurogenic bladder, NOS Weight gain Abnormal weight gain Factor 5 Leiden mutation, heterozygous (HCC)- Primary Primary hypercoagulable state Incomplete spinal cord injury Unspecified site of spinal cord injury without evidence of spinal bone injury Neurogenic bladder Neurogenic bladder, NOS Weight gain Abnormal weight gain Constipation Unspecified constipation Sinusitis Unspecified sinusitis (chronic) Urinary retention- Primary Retention of urine, unspecified Constipation Unspecified constipation Weight gain Abnormal weight gain Incomplete spinal cord injury Unspecified site of spinal cord injury without evidence of spinal bone injury Foot drop, left Other acquired deformity of ankle and foot Incomplete spinal cord injury- Primary Unspecified site of spinal cord injury without evidence of spinal bone injury Constipation Unspecified constipation Weight gain Abnormal weight gain Weight gain- Primary Abnormal weight gain Incomplete spinal cord injury Unspecified site of spinal cord injury without evidence of spinal bone injury ED (erectile dysfunction) Impotence of organic origin Constipation Unspecified constipation Pre-op evaluation- Primary Preoperative examination, unspecified Spasticity Abnormal involuntary movements Spinal cord injury, T7-T12 (HCC) T7-T12 level spinal cord injury without evidence of spinal bone injury, unspecified Tobacco abuse disorder Tobacco use disorder Asthma, unspecified asthma severity, unspecified whether complicated, unspecified whether persistent (HCC) History of pulmonary embolus (PE) Personal history of pulmonary embolism Factor 5 Leiden mutation, heterozygous (HCC) Primary hypercoagulable state Obesity, Class II, BMI 35-39.9 Obesity, unspecified Presence of intrathecal baclofen pump Other postprocedural status KARAN (obstructive sleep apnea) Obstructive sleep apnea (adult) (pediatric) Baclofen pump failure, subsequent encounter- Primary Spasticity Abnormal involuntary movements Therapeutic drug monitoring Encounter for therapeutic drug monitoring Infected drug delivery pump, subsequent encounter Baclofen pump failure, subsequent encounter Chronic pain syndrome Sepsis due to skin infection (HCC) Impaired instrumental activities of daily living Debility, unspecified Gait abnormality Abnormality of gait Foot drop, left Other acquired deformity of ankle and foot Asthma (HCC) Unspecified asthma Chronic pain syndrome Constipation Unspecified constipation Factor 5 Leiden mutation, heterozygous (HCC) Primary hypercoagulable state Gait abnormality Abnormality of gait History of pulmonary embolus (PE) Personal history of pulmonary embolism Impaired functional mobility, balance, gait, and endurance Impaired instrumental activities of daily living Debility, unspecified Nicotine use disorder, F17.2 Tobacco use disorder KARAN (obstructive sleep apnea) Obstructive sleep apnea (adult) (pediatric) Paraparesis of both lower limbs (HCC) Paraplegia Neurogenic bladder Neurogenic bladder, NOS Presence of intrathecal baclofen pump Other postprocedural status Tobacco abuse disorder Tobacco use disorder Spinal cord injury, T7-T12 (HCC) T7-T12 level spinal cord injury without evidence of spinal bone injury, unspecified Spasticity Abnormal involuntary movements Infected drug delivery pump, subsequent encounter Therapeutic drug monitoring Encounter for therapeutic drug monitoring Spinal cord injury, T7-T12 (HCC)- Primary T7-T12 level spinal cord injury without evidence of spinal bone injury, unspecified Paraplegia (HCC) Paraplegia Factor 5 Leiden mutation, heterozygous (HCC) Primary hypercoagulable state Tobacco abuse disorder Tobacco use disorder KARAN (obstructive sleep apnea) Obstructive sleep apnea (adult) (pediatric) Chronic pain syndrome Asthma, unspecified asthma severity, unspecified whether complicated, unspecified whether persistent (HCC) Neurogenic bladder Neurogenic bladder, NOS Recurrent UTI Urinary tract infection, site not specified History of pulmonary embolus (PE) Personal history of pulmonary embolism Pre-op evaluation Preoperative examination, unspecified Impingement syndrome of right shoulder- Primary Other affections of shoulder region, not elsewhere classified Impingement syndrome of left shoulder Other affections of shoulder region, not elsewhere classified documented in this encounter [facility] Discharge instructions Additional Instructions Your urine has been sent for culture. They will call you in a few days if you require antibiotics. Continue Tylenol or ibuprofen as needed for fever and pain. Return with sustained high fever, new or worsening symptoms.[facility] Work Phone: Reason for referral (narrative)* Diagnostic Procedure Only (Routine) - Pending Review Specialty Diagnoses / Procedures Referred By Francheska t Referred To Contact US IMAGING Diagnoses Chronic pain of both shoulders Procedures US SHOULDER RT US COMPL JOINT R-T W/IMAGE [place] [address] Us Imaging Referral ID Status Reason Start Date Expiration Date Visits Requested Visits Authorized [id number] Pending Review Auto-Generat ed Referral 09/19/2021 10/19/2022 1 1 * Diagnostic Procedure Only (Routine) - Pending Review Specialty Diagnoses / Procedures Referred By Contac t Referred To Contact US IMAGING Diagnoses Chronic pain of both shoulders Procedures US SHOULDER LT US COMPL JOINT R-T W/IMAGE DOCUMENTATION Ju Gustafson DO [place] [id number] Us Imaging Referral ID Status Reason Start Date Expiration Date Visits Requested Visits Authorized [id number] Pending Review Auto-Generat ed Referral 09/19/2021 10/19/2022 1 1 * Diagnostic Procedure Only (Routine) - Pending Review Specialty Diagnoses / Procedures Referred By Contac t Referred To Contact US IMAGING Diagnoses Lateral epicondylitis of left elbow Procedures US ELBOW LEFT US LMTD JOINT/OTH NONVASC XTR STRUX R-T W/IM[place] [address] Us Imaging Referral ID Status Reason Start Date Expiration Date Visits Requested Visits Authorized [id number] Pending Review Auto-Generat ed Referral 09/19/2021 10/19/2022 1 1 [facility] for referral (narrative)* Diagnostic Procedure Only (Routine) - Closed Specialty Diagnoses / Procedures Referred By Contac t Referred To Contact US IMAGING Diagnoses Chronic pain of both shoulders Procedures US SHOULDER RT US COMPL JOINT R-T W/IMAGE DOCUMENTATION Ju Gustafson DO [place] [id number] Us Imaging Referral ID Status Reason Start Date Expiration Date V isits Requested Visits Authorized [id number] Closed Auto-Generate d Referral 09/19/2021 10/19/2022 1 1 * Diagnostic Procedure Only (Routine) - Closed Specialty Diagnoses / Procedures Referred By Contac t Referred To Contact US IMAGING Diagnoses Chronic pain of both shoulders Procedures US SHOULDER LT US COMPL JOINT R-T W/IMAGE [place] [address] Us Imaging Referral ID Status Reason Start Date Expiration Date V isits Requested Visits Authorized [id number] Closed Auto-Generate d Referral 09/19/2021 10/19/2022 1 1 * Diagnostic Procedure Only (Routine) - Closed Specialty Diagnoses / Procedures Referred By Francheska t Referred To Contact US IMAGING Diagnoses Lateral epicondylitis of left elbow Procedures US ELBOW LEFT US LMTD JOINT/OTH NONVASC XTR STRUX R-T W/IMG Ju Gustafson DO [place] [id number] Us Imaging Referral ID Status Reason Start Date Expiration Date V isits Requested Visits Authorized [id number] Closed Auto-Generate d Referral 09/19/2021 10/19/2022 1 1 [facility] for referral (narrative)* Diagnostic Procedure Only (Urgent) - Closed Specialty Diagnoses / Procedures Referred By Francheska t Referred To Contact US IMAGING Diagnoses Testicle swelling Procedures US SCROTUM AND CONTENTS US SCROTUM & CONTENTS Carlie Gustafson APRN.CNP [address] [place] [address] Us Imaging Referral ID Status Reason Start Date Expiration Date V isits Requested Visits Authorized [id number] Closed Auto-Generate d Referral 06/14/2022 06/17/2022 1 1 [facility] for referral (narrative)No reason for referral information availableWKettering Health Work Phone: Reason for visit Narrative* Diagnostic Procedure Only (Routine) - Closed Specialty Diagnoses / Procedures Referred By Francheska t Referred To Contact US IMAGING Diagnoses Chronic pain of both shoulders Procedures US SHOULDER RT US COMPL JOINT R-T W/IMAGE [place] [address] Us Imaging Referral ID Status Reason Start Date Expiration Date V isits Requested Visits Authorized [id number] Closed Auto-Generate d Referral 09/19/2021 10/19/2022 1 1 [facility] Diagnostic Procedure Only (Urgent) - Closed Specialty Diagnoses / Procedures Referred By Contac t Referred To Contact US IMAGING Diagnoses Testicle swelling Procedures US SCROTUM AND CONTENTS US SCROTUM & CONTENTS Carlie Gustafson, IMPORT DISPATCHER.TELEVISION DIRECTOR [address] [place] [address] Us Imaging Referral ID Status Reason Start Date Expiration Date V isits Requested Visits Authorized [id number] Closed Auto-Generate d Referral 06/14/2022 06/17/2022 1 1 [facility] Summary Purpose Family History No Family History Records Found Relationship Condition Age at Onset Recorded Date/T joel Unknown Family History?No pe rtinent history Unknown September 01, 2015 10:12am Family History?No pe rtinent history Unknown December 15, 2015 2:27pm Advance Directives No Advanced Directives Records FoundDocuments on File Type Date Recorded Patient Practicing Urologist Expl anation Advance Directive(s) 02/19/2021 11:57 PM Advance Directive(s) 12/28/2020 9:02 AM Advance Directive(s) 09/03/2018 1:56 PM Advance Directive(s) 08/23/2018 3:12 PM Advance Directive(s) 10/12/2016 4:15 PM Documents on File Type Date Recorded Patient Practicing Urologist Expl anation Advance Directive(s) 02/19/2021 11:57 PM Advance Directive(s) 12/28/2020 9:02 AM Advance Directive(s) 09/03/2018 1:56 PM Advance Directive(s) 08/23/2018 3:12 PM Advance Directive(s) 10/12/2016 4:15 PM Advance Directive Response Recorded Date/ Time Advance Directives No August 30, 2 016 3:14am Living Will No November 14, 2021 1 2:52am Power of Cement Mason Maintenance No November 14, 2021 12:52am Documents on File Type Date Recorded Patient Practicing Urologist Expl anation Advance Directive(s) 01/07/2022 6:55 AM Advance Directive(s) 02/19/2021 11:57 PM Advance Directive(s) 12/28/2020 9:02 AM Advance Directive(s) 09/03/2018 1:56 PM Advance Directive(s) 08/23/2018 3:12 PM Advance Directive(s) 10/12/2016 4:15 PM Advance Directive Response Recorded Date/ Time Do you have a Healthcare Power of Cement Mason Maintenance? Yes October 09, 2024 7:24pm Name of Medical Power of Cement Mason Maintenance father October 09, 2024 7:24pm Advance Directives No August 30, 2 016 3:14am Medications Administered Section Inactive Administered Medications - up to 3 most recent administrations Medication Order MAR Action Action Date Dose Rate Site ropivacaine (PF) 5 mg/mL (0.5 %) 1 mL injection (NAROPIN) 1 mL, Injection - FOR ORTHO USE ONLY, ONE TIME INJECTION, 1 dose, Starting on Sun09/19/21 at 1113, Until Sun09/19/21 at 1113 Given 09/19/2021 11:13 AM EDT 1 mL triamcinolone acetonide 40 mg injection (KENALOG 40) 40 mg, Injection - FOR ORTHO USE ONLY, ONE TIME INJECTION, 1 dose, Starting on Sun09/19/21 at 1113, Until Sun09/19/21 at 1113 Given 09/19/2021 11:13 AM EDT 40 mg Inactive Administered Medications - up to 3 most recent administrations Medication Order MAR Action Action Date Dose Rate Site onabotulinum toxin type A 100 Units injection (BOTOX) 100 Units, INTRAMUSCULAR, ONCE, 1 dose, On Sun12/26/21 at 1030, Reconstitute with 2.2 mL 0.9% NaCl. This record documents the total dose provided to patient. See progress note for specific locations and amounts administered. REFRIGERATE - Pharmaceutical Waste: Lab Pack - Given 12/26/2021 10:30 AM EDT 100 Units Other Inactive Administered Medications - up to 3 most recent administrations Medication Order MAR Action Action Date Dose Rate Site ketamine 64.7 mg in NaCl 0.9% 50 mL (KETALAR) 64.7 mg (rounded from 64.65 mg = 0.5 mg/kg/dose 129.3 kg), INTRAVENOUS, at 75 mL/hr, Administer over 40 Minutes, ONCE, 1 dose, On Sun02/14/22 at 0700, Total Volume Rate Verify 02/14/2022 8:40 AM EDT 75 mL/hr Rate Verify 02/14/2022 8:25 AM EDT 75 mL/hr New Bag/Syringe/Bottle 02/14/2022 8:10 AM EDT 64.7 mg 7 5 mL/hr midazolam (PF) 2 mg injection (VERSED) 2 mg, INTRAVENOUS, ONCE, 1 dose, On Sun02/14/22 at 0700 Given 02/14/2022 8:06 AM EDT 2 mg NaCl 0.9% iv bolus 500 mL 500 mL, INTRAVENOUS, at 999 mL/hr, Administer over 0.5 Hours, ONCE, 1 dose, On Sun02/14/22 at 0700 New Bag/Syringe/Bottle 02/14/2022 8:55 AM EDT 500 mL 999 mL/hr ondansetron (PF) 8 mg injection (ZOFRAN) 8 mg, INTRAVENOUS, ONCE, 1 dose, On Sun02/14/22 at 0700 Given 02/14/2022 8:04 AM EDT 8 mg Active Administered Medications - up to 3 most recent administrations Medication Order MAR Action Action Date Dose Rate Site midazolam (PF) 2 mg injection (VERSED) 2 mg, INTRAVENOUS, NEEDED, Starting on Sun02/14/22 at 0843, Until Discontinued, anxiety during ketamine infusion Given 02/15/2022 8:07 AM EDT 2 mg Inactive Administered Medications - up to 3 most recent administrations Medication Order MAR Action Action Date Dose Rate Site ketamine 64.7 mg in NaCl 0.9% 50 mL (KETALAR) 64.7 mg (rounded from 64.65 mg = 0.5 mg/kg/dose 129.3 kg), INTRAVENOUS, at 75 mL/hr, Administer over 40 Minutes, ONCE, 1 dose, On Sun02/15/22 at 0700, Total Volume Rate Verify 02/15/2022 8:40 AM EDT 75 mL/hr Rate Verify 02/15/2022 8:25 AM EDT 75 mL/hr New Bag/Syringe/Bottle 02/15/2022 8:10 AM EDT 64.7 mg 7 5 mL/hr NaCl 0.9% iv bolus 500 mL 500 mL, INTRAVENOUS, at 999 mL/hr, Administer over 0.5 Hours, ONCE, 1 dose, On Sun02/15/22 at 0700 New Bag/Syringe/Bottle 02/15/2022 8:55 AM EDT 500 mL 999 mL/hr ondansetron (PF) 8 mg injection (ZOFRAN) 8 mg, INTRAVENOUS, ONCE, 1 dose, On Sun02/15/22 at 0700 Given 02/15/2022 8:05 AM EDT 8 mg Inactive Administered Medications - up to 3 most recent administrations Medication Order MAR Action Action Date Dose Rate Site ketamine 64.7 mg in NaCl 0.9% 50 mL (KETALAR) 64.7 mg (rounded from 64.65 mg = 0.5 mg/kg/dose 129.3 kg), INTRAVENOUS, at 75 mL/hr, Administer over 40 Minutes, ONCE, 1 dose, On Sun02/17/22 at 0700, Total Volume Rate Verify 02/17/2022 8:27 AM EDT 75 mL/hr Rate Verify 02/17/2022 8:12 AM EDT 75 mL/hr New Bag/Syringe/Bottle 02/17/2022 7:57 AM EDT 64.7 mg 7 5 mL/hr midazolam (PF) 2 mg injection (VERSED) 2 mg, INTRAVENOUS, ONCE, 1 dose, On Sun02/17/22 at 0700 Given 02/17/2022 7:54 AM EDT 2 mg NaCl 0.9% iv bolus 500 mL 500 mL, INTRAVENOUS, at 999 mL/hr, Administer over 0.5 Hours, ONCE, 1 dose, On Sun02/17/22 at 0700 New Bag/Syringe/Bottle 02/17/2022 8:37 AM EDT 500 mL 999 mL/hr ondansetron (PF) 8 mg injection (ZOFRAN) 8 mg, INTRAVENOUS, ONCE, 1 dose, On Sun02/17/22 at 0700 Given 02/17/2022 7:52 AM EDT 8 mg Inactive Administered Medications - up to 3 most recent administrations Medication Order MAR Action Action Date Dose Rate Site ketamine 64.7 mg in NaCl 0.9% 50 mL (KETALAR) 64.7 mg (rounded from 64.65 mg = 0.5 mg/kg/dose 129.3 kg), INTRAVENOUS, at 75 mL/hr, Administer over 40 Minutes, ONCE, 1 dose, On Ninfa 02/16/22 at 0700, Total Volume Rate Verify 02/16/2022 9:05 AM EDT 75 mL/hr Rate Verify 02/16/2022 8:50 AM EDT 75 mL/hr New Bag/Syringe/Bottle 02/16/2022 8:35 AM EDT 64.7 mg 7 5 mL/hr keTORolac 15 mg injection (TORADOL) 15 mg, INTRAVENOUS, ONCE, 1 dose, On Ninfa 02/16/22 at 0830, Ketorolac (Toradol) is indicated for the short-term (up to 5 days) management of moderately severe acute pain. Continuation of ketorolac (Toradol) beyond 5 days increases the risk of developing serious adverse events. Please verify the duration of therapy for ketorolac (Toradol), If ordered PRN for pain, patient/guardian may elect to receive this medication for higher pain levels INSTEAD of the opioid, if preferred: Yes Given 02/16/2022 9:41 AM EDT 15 mg midazolam (PF) 2 mg injection (VERSED) 2 mg, INTRAVENOUS, ONCE, 1 dose, On Ninfa 02/16/22 at 0700 Given 02/16/2022 8:26 AM EDT 2 mg NaCl 0.9% iv bolus 500 mL 500 mL, INTRAVENOUS, at 999 mL/hr, Administer over 0.5 Hours, ONCE, 1 dose, On Ninfa 02/16/22 at 0700 New Bag/Syringe/Bottle 02/16/2022 9:16 AM EDT 500 mL 999 mL/hr ondansetron (PF) 8 mg injection (ZOFRAN) 8 mg, INTRAVENOUS, ONCE, 1 dose, On Ninfa 02/16/22 at 0700 Given 02/16/2022 8:24 AM EDT 8 mg Inactive Administered Medications - up to 3 most recent administrations Medication Order MAR Action Action Date Dose Rate Site onabotulinum toxin type A 100 Units injection (BOTOX) 100 Units, INTRAMUSCULAR, ONCE (UP TO 30 DAYS AMB), 1 dose, On 03/27/22 at 1000, This record documents the total dose provided to patient. See progress note for specific locations and amounts administered. REFRIGERATE - Pharmaceutical Waste: Lab Pack - Given 03/27/2022 10:00 AM EDT 100 Units Other Inactive Administered Medications - up to 3 most recent administrations Medication Order MAR Action Action Date Dose Rate Site ropivacaine (PF) 5 mg/mL (0.5 %) 1 mL injection (NAROPIN) 1 mL, Injection - FOR ORTHO USE ONLY, ONE TIME INJECTION, 1 dose, Starting on Sun03/27/22 at 1435, Until Sun03/27/22 at 1435 Given 03/27/2022 2:35 PM EDT 1 mL Elbow. Left triamcinolone acetonide 40 mg injection (KeNALog 40) 40 mg, Injection - FOR ORTHO USE ONLY, ONE TIME INJECTION, 1 dose, Starting on Sun03/27/22 at 1435, Until Sun03/27/22 at 1435 Given 03/27/2022 2:35 PM EDT 40 mg Elbow. Left Inactive Administered Medications - up to 3 most recent administrations Medication Order MAR Action Action Date Dose Rate Site ketamine 66.2 mg in NaCl 0.9% 50 mL (KETALAR) 66.2 mg (0.5 mg/kg/dose 132.4 kg), INTRAVENOUS, at 75 mL/hr, Administer over 40 Minutes, ONCE, 1 dose, On Sun07/03/22 at 1100, Total Volume Rate Verify 07/03/2022 11:37 AM EST 75 mL/hr Rate Verify 07/03/2022 11:22 AM EST 75 mL/hr New Bag/Syringe/Bottle 07/03/2022 11:07 AM EST 66.2 mg 75 mL/hr midazolam (PF) 2 mg injection (VERSED) 2 mg, INTRAVENOUS, ONCE, 1 dose, On Sun07/03/22 at 1100 Given 07/03/2022 11:03 AM EST 2 mg midazolam (PF) 2 mg injection (VERSED) 2 mg, INTRAVENOUS, NEEDED, Starting on Sun07/03/22 at 1031, Until Sun07/03/22 at 1451, For agitation, May give up to one dose per infusion visit. Given 07/03/2022 11:50 AM EST 2 mg ondansetron (PF) 8 mg injection (ZOFRAN) 8 mg, INTRAVENOUS, ONCE, 1 dose, On Sun07/03/22 at 1100 Given 07/03/2022 11:04 AM EST 8 mg Inactive Administered Medications - up to 3 most recent administrations Medication Order MAR Action Action Date Dose Rate Site ketamine 66.2 mg in NaCl 0.9% 50 mL (KETALAR) 66.2 mg (0.5 mg/kg/dose 132.4 kg), INTRAVENOUS, at 75 mL/hr, Administer over 40 Minutes, ONCE, 1 dose, On Sun07/04/22 at 1030, Total Volume Rate Verify 07/04/2022 11:33 AM EST 75 mL/hr Rate Verify 07/04/2022 11:18 AM EST 75 mL/hr New Bag/Syringe/Bottle 07/04/2022 11:03 AM EST 66.2 mg 75 mL/hr midazolam (PF) 2 mg injection (VERSED) 2 mg, INTRAVENOUS, ONCE, 1 dose, On Sun07/04/22 at 1030 Given 07/04/2022 10:51 AM EST 2 mg NaCl 0.9% iv bolus 500 mL 500 mL, INTRAVENOUS, at 999 mL/hr, Administer over 0.5 Hours, ONCE, 1 dose, On Sun07/04/22 at 1030 New Bag/Syringe/Bottle 07/04/2022 11:43 AM EST 500 mL 999 mL/hr ondansetron (PF) 8 mg injection (ZOFRAN) 8 mg, INTRAVENOUS, ONCE, 1 dose, On Sun07/04/22 at 1030 Given 07/04/2022 10:55 AM EST 8 mg Inactive Administered Medications - up to 3 most recent administrations Medication Order MAR Action Action Date Dose Rate Site ketamine 66.2 mg in NaCl 0.9% 50 mL (KETALAR) 66.2 mg (0.5 mg/kg/dose 132.4 kg), INTRAVENOUS, at 75 mL/hr, Administer over 40 Minutes, ONCE, 1 dose, On Sun07/05/22 at 1030, Total Volume Rate Verify 07/05/2022 11:05 AM EST 75 mL/hr Rate Verify 07/05/2022 10:50 AM EST 75 mL/hr New Bag/Syringe/Bottle 07/05/2022 10:35 AM EST 66.2 mg 75 mL/hr midazolam (PF) 2 mg injection (VERSED) 2 mg, INTRAVENOUS, ONCE, 1 dose, On Sun07/05/22 at 1030 Given 07/05/2022 10:32 AM EST 2 mg NaCl 0.9% iv bolus 500 mL 500 mL, INTRAVENOUS, at 999 mL/hr, Administer over 0.5 Hours, ONCE, 1 dose, On Sun07/05/22 at 1030 New Bag/Syringe/Bottle 07/05/2022 11:15 AM EST 500 mL 999 mL/hr ondansetron (PF) 8 mg injection (ZOFRAN) 8 mg, INTRAVENOUS, ONCE, 1 dose, On Sun07/05/22 at 1030 Given 07/05/2022 10:32 AM EST 8 mg Inactive Administered Medications - up to 3 most recent administrations Medication Order MAR Action Action Date Dose Rate Site ketamine 66.2 mg in NaCl 0.9% 50 mL (KETALAR) 66.2 mg (0.5 mg/kg/dose 132.4 kg), INTRAVENOUS, at 75 mL/hr, Administer over 40 Minutes, ONCE, 1 dose, On Sun07/06/22 at 1030, Total Volume Rate Verify 07/06/2022 10:55 AM EST 75 mL/hr Rate Verify 07/06/2022 10:40 AM EST 75 mL/hr New Bag/Syringe/Bottle 07/06/2022 10:25 AM EST 66.2 mg 75 mL/hr midazolam (PF) 2 mg injection (VERSED) 2 mg, INTRAVENOUS, ONCE, 1 dose, On Sun07/06/22 at 1030 Given 07/06/2022 10:22 AM EST 2 mg NaCl 0.9% iv bolus 500 mL 500 mL, INTRAVENOUS, at 999 mL/hr, Administer over 0.5 Hours, ONCE, 1 dose, On Sun07/06/22 at 1030 New Bag/Syringe/Bottle 07/06/2022 11:05 AM EST 500 mL 999 mL/hr ondansetron (PF) 8 mg injection (ZOFRAN) 8 mg, INTRAVENOUS, ONCE, 1 dose, On Sun07/06/22 at 1030 Given 07/06/2022 10:22 AM EST 8 mg Inactive Administered Medications - up to 3 most recent administrations Medication Order MAR Action Action Date Dose Rate Site onabotulinum toxin type A 100 Units injection (BOTOX) 100 Units, INTRAMUSCULAR, ONCE (UP TO 30 DAYS AMB), 1 dose, On Sun07/10/22 at 1000, This record documents the total dose provided to patient. See progress note for specific locations and amounts administered. REFRIGERATE - Pharmaceutical Waste: Lab Pack - Given 07/10/2022 10:00 AM EST 100 Units Other Inactive Administered Medications - up to 3 most recent administrations Medication Order MAR Action Action Date Dose Rate Site onabotulinum toxin type A 200 Units injection (BOTOX) 200 Units, INTRAMUSCULAR, ONCE (UP TO 30 DAYS AMB), 1 dose, On Sun10/02/22 at 1030, This record documents the total dose provided to patient. See progress note for specific locations and amounts administered. REFRIGERATE - Pharmaceutical Waste: Lab Pack - Given 10/02/2022 10:30 AM EDT 200 Units Other Inactive Administered Medications - up to 3 most recent administrations Medication Order MAR Action Action Date Dose Rate Site ROPivacaine (PF) 5 mg/mL (0.5 %) 3 mL injection (NAROPIN) 3 mL, Injection - FOR ORTHO USE ONLY, ONE TIME INJECTION, 1 dose, Starting on Sun12/11/22 at 1544, Until Sun12/11/22 at 1544 Given 12/11/2022 3:44 PM EDT 3 mL Elbow. Left triamcinolone acetonide 40 mg injection (KeNALog 40) 40 mg, Injection - FOR ORTHO USE ONLY, ONE TIME INJECTION, 1 dose, Starting on Sun12/11/22 at 1544, Until Sun12/11/22 at 1544 Given 12/11/2022 3:44 PM EDT 40 mg Elbow. Left Inactive Administered Medications - up to 3 most recent administrations Medication Order MAR Action Action Date Dose Rate Site onabotulinum toxin type A 200 Units injection (BOTOX) 200 Units, INTRAMUSCULAR, ONCE (UP TO 30 DAYS AMB), 1 dose, On Sun01/08/23 at 0930, This record documents the total dose provided to patient. See progress note for specific locations and amounts administered. REFRIGERATE - Pharmaceutical Waste: Lab Pack - Given 01/08/2023 9:30 AM EDT 200 Units Other Inactive Administered Medications - up to 3 most recent administrations Medication Order MAR Action Action Date Dose Rate Site baclofen (LIORESAL) 50 mcg injection 50 mcg, INTRATHECAL, ONCE, 1 dose, On Sun01/16/23 at 0930, Kit # [id number] = 2 x 20 ml syringes Given 01/16/2023 9:30 AM EDT 50 mcg Inactive Administered Medications - up to 3 most recent administrations Medication Order MAR Action Action Date Dose Rate Site acetaminophen 1,000 mg tab(s) (TYLENOL) 1,000 mg, ORAL, ONCE, 1 dose, On 04/14/23 at 1030, If ordered PRN for pain, patient/guardian may elect to receive this medication for higher pain levels INSTEAD of the opioid, if preferred: Yes Given 04/14/2023 10:36 AM EDT 1,000 mg Oral Reason for Referral Specialty Diagnoses / Procedures Referred By Contac t Referred To Contact Diagnoses Erectile dysfunction, unspecified erectile dysfunction type Ceferino Regalado MD [address] [place] [address] Referral ID Status Reason Start Date Expiration Date Visits Re quested Visits Authorized [id number] Denied 1 1 Specialty Diagnoses / Procedures Referred By Contac t Referred To Contact [facility] Diagnoses Gait abnormality Spinal cord injury, T7-T12 (HCC) Weakness Impaired functional mobility, balance, gait, and endurance Spasticity Paraplegia (HCC) Procedures PT REHAB FOLLOW UP ORDER THERAPEUTIC EXERCISES RE, EA [address] [place] [address] [place] [address] [facility] [address] [place] [address] Referral ID Status Reason Start Date Expiration Date Visits Requested Visits Authorized [id number] Pending Review PCP Requested Referral Auto-Generate d Referral 12/20/2021 03/20/2022 1 1 Specialty Diagnoses / Procedures Referred By Contac t Referred To Contact [facility] [place] Diagnoses Chronic pain syndrome Procedures CONSULT TO [facility] (CHRONIC PAIN) OFFICE/OUTPATIENT [facility] 60-74 MINUTES Eitan Hernandez DO [address] [place] [address] Referral ID Status Reason Start Date Expiration Date Visits Requested Visits Authorized [id number] Pending Review PCP Requested Referral 12/22/2021 12/22/2022 1 1 Specialty Diagnoses / Procedures Referred By Contac t Referred To Contact [facility] Diagnoses Lymphedema Swelling of lower extremity Procedures CONSULT TO LYMPHEDEMA THERAPY OFFICE/OUTPATIENT [facility] 60-74 MINUTES Rossana Chambers DPM [address] [facility], [address] [place] [address] [facility] [address] [address] Referral ID Status Reason Start Date Expiration Date Visits Requested Visits Authorized [id number] Pending Review Auto-Generat ed Referral 02/10/2022 02/10/2023 1 1 Specialty Diagnoses / Procedures Referred By Contac t Referred To Contact [facility] Diagnoses Spinal cord injury, T7-T12 (HCC) Paraplegia (HCC) Impaired functional mobility, balance, gait, and endurance Gait abnormality Procedures PT REHAB FOLLOW UP ORDER THERAPEUTIC EXERCISES RE, EA [address] [place] [address] [place] [address] [address] Referral ID Status Reason Start Date Expiration Date Visits Requested Visits Authorized [id number] Pending Review PCP Requested Referral Auto-Generate d Referral 03/23/2022 06/21/2022 1 1 Referral ID Status Reason Start Date Expiration Date Visits Requested Visits Authorized [id number] Pending Review PCP Requested Referral Auto-Generate d Referral 09/06/2022 1 1 Referral ID Status Reason Start Date Expiration Date Visits Requested Visits Authorized [id number] Pending Review PCP Requested Referral Auto-Generate d Referral 09/07/2022 12/06/2022 1 1 Specialty Diagnoses / Procedures Referred By Contac t Referred To Contact Diagnoses Alysha Ivory PA-C [address] [place] [address] Referral ID Status Reason Start Date Expiration Date V isits Requested Visits Authorized [id number] Pending Review 1 1 Specialty Diagnoses / Procedures Referred By Contac t Referred To Contact [facility] Diagnoses Lateral epicondylitis of left elbow Procedures CONSULT TO PHYSICAL THERAPY PHYSICAL THERAPY EVALUATION HIGH COMPLEX [address] [place] [address] [facility] [address] [address] Referral ID Status Reason Start Date Expiration Date Visits Requested Visits Authorized [id number] Pending Review Auto-Generat ed Referral 04/20/2023 04/19/2024 1 1 Specialty Diagnoses / Procedures Referred By Contac t Referred To Contact Ophthalmology Diagnoses Hordeolum externum of left upper eyelid Procedures CONSULT TO OPHTHALMOLOGY OFFICE/OUTPATIENT [facility] 60-74 MINUTES Loren Dumont PA-C [address] [place] [address] Referral ID Status Reason Start Date Expiration Date Visits Requested Visits Authorized [id number] Pending Review PCP Requested Referral 05/21/2023 05/20/2024 1 1 Specialty Diagnoses / Procedures Referred By Contac t Referred To Contact Diagnoses Erectile dysfunction, unspecified erectile dysfunction type Luda Armas MD [address] [place] [address] Referral ID Status Reason Start Date Expiration Date Visits Re quested Visits Authorized [id number] Denied 1 1 Specialty Diagnoses / Procedures Referred By Contac t Referred To Contact Psychology 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 Procedures CONSULT TO PSYCHOLOGY OFFICE/OUTPATIENT [facility] 60-74 MINUTES Luda Armas MD [address] [place] [address] Shiela Vilchis PSYD [address] [place] [address] Referral ID Status Reason Start Date Expiration Date Visits Requested Visits Authorized [id number] Pending Review PCP Requested Referral 05/25/2023 05/24/2024 1 1 Specialty Diagnoses / Procedures Referred By Contac t Referred To Contact Diagnoses Soila Espinoza APRN.TELEVISION DIRECTOR [address] [place] [address] Referral ID Status Reason Start Date Expiration Date Visits Re quested Visits Authorized [id number] Denied 1 1 Specialty Diagnoses / Procedures Referred By Contac t Referred To Contact Podiatry Diagnoses Onychomycosis Spinal cord injury, T7-T12 (HCC) Paraplegia (HCC) Spasticity Procedures CONSULT TO PODIATRY OFFICE/OUTPATIENT [facility] 60 MINUTES Anay Roque MD [address] [place] [address] Referral ID Status Reason Start Date Expiration Date Visits Requested Visits Authorized [id number] Authorized PCP Requested Referral 02/04/2024 02/03/2025 1 1 Specialty Diagnoses / Procedures Referred By Contac t Referred To Contact Psychology Diagnoses Post-traumatic stress disorder, acute Procedures CONSULT TO PSYCHOLOGY OFFICE/OUTPATIENT [facility] 60 MINUTES Jimena Kramer PA-C [address] [address] Referral ID Status Reason Start Date Expiration Date Visits Requested Visits Authorized [id number] Pending Review PCP Requested Referral 02/05/2024 02/04/2025 1 1 Specialty Diagnoses / Procedures Referred By Contac t Referred To Contact Diagnoses Mild intermittent asthma with acute exacerbation Anay Roque MD [address] [place] [address] Referral ID Status Reason Start Date Expiration Date Visits Re quested Visits Authorized [id number] Closed 1 1 Specialty Diagnoses / Procedures Referred By Contac t Referred To Contact Neurosurgery Diagnoses Presence of intrathecal baclofen pump Procedures CONSULT TO NEUROSURGERY OFFICE/OUTPATIENT [facility] 60 MINUTES Daysi Roque PA-C [address] [facility] [place] [address] Referral ID Status Reason Start Date Expiration Date Visits Requested Visits Authorized [id number] Authorized PCP Requested Referral 05/26/2024 05/26/2025 1 1 Chief Complaint and Reason for Visit Chief Complaint itching Chief Complaint Admit Date COMPLAINT October 09, 2024 6:5 2pm Chief Complaint c/o 4/10 generalized pain, mostly back painc/o 4/10 generalized pain, mostly back pain Health Concerns Infection Onset Date Last Indicated Resolved Time COVID-19 Rule-Out 04/14/2023 04/14/2023 04/14/2023 9:47 PM EDT Additional Source Comments (unrecognized sect ion and content) No Status Records FoundNo Status Records FoundNo Status Records FoundNo Status Records FoundNo Status Records FoundNo Status Records FoundNo Status Records FoundNo Status Records FoundNo Status Records Found INFORMATION SOURCE (unrecogn ized section and content) DATE CREATED AUTHOR 12/06/2017 [facility] DATE CREATED AUTHOR AUTHOR'S ORGANIZ ATION 08/05/2018 [facility] DATE CREATED AUTHOR AUTHOR'S ORGANIZ ATION 03/24/2019 [facility] DATE CREATED AUTHOR AUTHOR'S ORGANIZ ATION 11/25/2021 [facility] DATE CREATED AUTHOR AUTHOR'S ORGANIZ ATION 03/15/2022 [facility] DATE CREATED AUTHOR AUTHOR'S ORGANIZ ATION 06/15/2022 [facility] DATE CREATED AUTHOR AUTHOR'S ORGANIZ ATION 10/21/2024 [facility] DATE CREATED AUTHOR AUTHOR'S ORGANIZ ATION 11/28/2024 [facility] DATE CREATED AUTHOR AUTHOR'S ORGANIZ ATION 12/02/2024 [facility] Source Comments (unrecognize d section and content) In the event this informatio n is protected by the Federal Confidentiality of Alcohol and Drug Abuse Patient Records regulations: The Federal rules restrict any use of the information to criminally investigate or prosecute any alcohol or drug abuse patient.[facility] Center[facility] the event this information is protected by the Federal Confidentiality of Alcohol and Drug Abuse Patient Records regulations: The Federal rules restrict any use of the information to criminally investigate or prosecute any alcohol or drug abuse patient.[facility]In the event this information is protected by the Federal Confidentiality of Alcohol and Drug Abuse Patient Records regulations: The Federal rules restrict any use of the information to criminally investigate or prosecute any alcohol or drug abuse patient.[facility] CenterIn the event this information is protected by the Federal Confidentiality of Alcohol and Drug Abuse Patient Records regulations: The Federal rules restrict any use of the information to criminally investigate or prosecute any alcohol or drug abuse patient.[facility] CenterIn the event this information is protected by the Federal Confidentiality of Alcohol and Drug Abuse Patient Records regulations: The Federal rules restrict any use of the information to criminally investigate or prosecute any alcohol or drug abuse patient.[facility] CenterIn the event this information is protected by the Federal Confidentiality of Alcohol and Drug Abuse Patient Records regulations: The Federal rules restrict any use of the information to criminally investigate or prosecute any alcohol or drug abuse patient.[facility] CenterIn the event this information is protected by the Federal Confidentiality of Alcohol and Drug Abuse Patient Records regulations: The Federal rules restrict any use of the information to criminally investigate or prosecute any alcohol or drug abuse patient.[facility] CenterIn the event this information is protected by the Federal Confidentiality of Alcohol and Drug Abuse Patient Records regulations: The Federal rules restrict any use of the information to criminally investigate or prosecute any alcohol or drug abuse patient.[facility] CenterIn the event this information is protected by the Federal Confidentiality of Alcohol and Drug Abuse Patient Records regulations: The Federal rules restrict any use of the information to criminally investigate or prosecute any alcohol or drug abuse patient.[facility] CenterIn the event this information is protected by the Federal Confidentiality of Alcohol and Drug Abuse Patient Records regulations: The Federal rules restrict any use of the information to criminally investigate or prosecute any alcohol or drug abuse patient.[facility] CenterIn the event this information is protected by the Federal Confidentiality of Alcohol and Drug Abuse Patient Records regulations: The Federal rules restrict any use of the information to criminally investigate or prosecute any alcohol or drug abuse patient.[facility] CenterIn the event this information is protected by the Federal Confidentiality of Alcohol and Drug Abuse Patient Records regulations: The Federal rules restrict any use of the information to criminally investigate or prosecute any alcohol or drug abuse patient.[facility] CenterIn the event this information is protected by the Federal Confidentiality of Alcohol and Drug Abuse Patient Records regulations: The Federal rules restrict any use of the information to criminally investigate or prosecute any alcohol or drug abuse patient.[facility] CenterIn the event this information is protected by the Federal Confidentiality of Alcohol and Drug Abuse Patient Records regulations: The Federal rules restrict any use of the information to criminally investigate or prosecute any alcohol or drug abuse patient.[facility] CenterIn the event this information is protected by the Federal Confidentiality of Alcohol and Drug Abuse Patient Records regulations: The Federal rules restrict any use of the information to criminally investigate or prosecute any alcohol or drug abuse patient.[facility] CenterIn the event this information is protected by the Federal Confidentiality of Alcohol and Drug Abuse Patient Records regulations: The Federal rules restrict any use of the information to criminally investigate or prosecute any alcohol or drug abuse patient.[facility] CenterIn the event this information is protected by the Federal Confidentiality of Alcohol and Drug Abuse Patient Records regulations: The Federal rules restrict any use of the information to criminally investigate or prosecute any alcohol or drug abuse patient.[facility] CenterIn the event this information is protected by the Federal Confidentiality of Alcohol and Drug Abuse Patient Records regulations: The Federal rules restrict any use of the information to criminally investigate or prosecute any alcohol or drug abuse patient.[facility] CenterIn the event this information is protected by the Federal Confidentiality of Alcohol and Drug Abuse Patient Records regulations: The Federal rules restrict any use of the information to criminally investigate or prosecute any alcohol or drug abuse patient.[facility] CenterIn the event this information is protected by the Federal Confidentiality of Alcohol and Drug Abuse Patient Records regulations: The Federal rules restrict any use of the information to criminally investigate or prosecute any alcohol or drug abuse patient.[facility] CenterIn the event this information is protected by the Federal Confidentiality of Alcohol and Drug Abuse Patient Records regulations: The Federal rules restrict any use of the information to criminally investigate or prosecute any alcohol or drug abuse patient.[facility] CenterIn the event this information is protected by the Federal Confidentiality of Alcohol and Drug Abuse Patient Records regulations: The Federal rules restrict any use of the information to criminally investigate or prosecute any alcohol or drug abuse patient.[facility] CenterIn the event this information is protected by the Federal Confidentiality of Alcohol and Drug Abuse Patient Records regulations: The Federal rules restrict any use of the information to criminally investigate or prosecute any alcohol or drug abuse patient.[facility] CenterIn the event this information is protected by the Federal Confidentiality of Alcohol and Drug Abuse Patient Records regulations: The Federal rules restrict any use of the information to criminally investigate or prosecute any alcohol or drug abuse patient.[facility]In the event this information is protected by the Federal Confidentiality of Alcohol and Drug Abuse Patient Records regulations: The Federal rules restrict any use of the information to criminally investigate or prosecute any alcohol or drug abuse patient.[facility]In the event this information is protected by the Federal Confidentiality of Alcohol and Drug Abuse Patient Records regulations: The Federal rules restrict any use of the information to criminally investigate or prosecute any alcohol or drug abuse patient.[facility]In the event this information is protected by the Federal Confidentiality of Alcohol and Drug Abuse Patient Records regulations: The Federal rules restrict any use of the information to criminally investigate or prosecute any alcohol or drug abuse patient.[facility]In the event this information is protected by the Federal Confidentiality of Alcohol and Drug Abuse Patient Records regulations: The Federal rules restrict any use of the information to criminally investigate or prosecute any alcohol or drug abuse patient.[facility]In the event this information is protected by the Federal Confidentiality of Alcohol and Drug Abuse Patient Records regulations: The Federal rules restrict any use of the information to criminally investigate or prosecute any alcohol or drug abuse patient.[facility]In the event this information is protected by the Federal Confidentiality of Alcohol and Drug Abuse Patient Records regulations: The Federal rules restrict any use of the information to criminally investigate or prosecute any alcohol or drug abuse patient.[facility]In the event this information is protected by the Federal Confidentiality of Alcohol and Drug Abuse Patient Records regulations: The Federal rules restrict any use of the information to criminally investigate or prosecute any alcohol or drug abuse patient.[facility]In the event this information is protected by the Federal Confidentiality of Alcohol and Drug Abuse Patient Records regulations: The Federal rules restrict any use of the information to criminally investigate or prosecute any alcohol or drug abuse patient.[facility]In the event this information is protected by the Federal Confidentiality of Alcohol and Drug Abuse Patient Records regulations: The Federal rules restrict any use of the information to criminally investigate or prosecute any alcohol or drug abuse patient.[facility]In the event this information is protected by the Federal Confidentiality of Alcohol and Drug Abuse Patient Records regulations: The Federal rules restrict any use of the information to criminally investigate or prosecute any alcohol or drug abuse patient.[facility]In the event this information is protected by the Federal Confidentiality of Alcohol and Drug Abuse Patient Records regulations: The Federal rules restrict any use of the information to criminally investigate or prosecute any alcohol or drug abuse patient.[facility]In the event this information is protected by the Federal Confidentiality of Alcohol and Drug Abuse Patient Records regulations: The Federal rules restrict any use of the information to criminally investigate or prosecute any alcohol or drug abuse patient.[facility]In the event this information is protected by the Federal Confidentiality of Alcohol and Drug Abuse Patient Records regulations: The Federal rules restrict any use of the information to criminally investigate or prosecute any alcohol or drug abuse patient.[facility]In the event this information is protected by the Federal Confidentiality of Alcohol and Drug Abuse Patient Records regulations: The Federal rules restrict any use of the information to criminally investigate or prosecute any alcohol or drug abuse patient.[facility]In the event this information is protected by the Federal Confidentiality of Alcohol and Drug Abuse Patient Records regulations: The Federal rules restrict any use of the information to criminally investigate or prosecute any alcohol or drug abuse patient.[facility]In the event this information is protected by the Federal Confidentiality of Alcohol and Drug Abuse Patient Records regulations: The Federal rules restrict any use of the information to criminally investigate or prosecute any alcohol or drug abuse patient.[facility]In the event this information is protected by the Federal Confidentiality of Alcohol and Drug Abuse Patient Records regulations: The Federal rules restrict any use of the information to criminally investigate or prosecute any alcohol or drug abuse patient.[facility]In the event this information is protected by the Federal Confidentiality of Alcohol and Drug Abuse Patient Records regulations: The Federal rules restrict any use of the information to criminally investigate or prosecute any alcohol or drug abuse patient.[facility]In the event this information is protected by the Federal Confidentiality of Alcohol and Drug Abuse Patient Records regulations: The Federal rules restrict any use of the information to criminally investigate or prosecute any alcohol or drug abuse patient.[facility]In the event this information is protected by the Federal Confidentiality of Alcohol and Drug Abuse Patient Records regulations: The Federal rules restrict any use of the information to criminally investigate or prosecute any alcohol or drug abuse patient.[facility]In the event this information is protected by the Federal Confidentiality of Alcohol and Drug Abuse Patient Records regulations: The Federal rules restrict any use of the information to criminally investigate or prosecute any alcohol or drug abuse patient.[facility]In the event this information is protected by the Federal Confidentiality of Alcohol and Drug Abuse Patient Records regulations: The Federal rules restrict any use of the information to criminally investigate or prosecute any alcohol or drug abuse patient.[facility]In the event this information is protected by the Federal Confidentiality of Alcohol and Drug Abuse Patient Records regulations: The Federal rules restrict any use of the information to criminally investigate or prosecute any alcohol or drug abuse patient.[facility]In the event this information is protected by the Federal Confidentiality of Alcohol and Drug Abuse Patient Records regulations: The Federal rules restrict any use of the information to criminally investigate or prosecute any alcohol or drug abuse patient.[facility]In the event this information is protected by the Federal Confidentiality of Alcohol and Drug Abuse Patient Records regulations: The Federal rules restrict any use of the information to criminally investigate or prosecute any alcohol or drug abuse patient.[facility]In the event this information is protected by the Federal Confidentiality of Alcohol and Drug Abuse Patient Records regulations: The Federal rules restrict any use of the information to criminally investigate or prosecute any alcohol or drug abuse patient.[facility]In the event this information is protected by the Federal Confidentiality of Alcohol and Drug Abuse Patient Records regulations: The Federal rules restrict any use of the information to criminally investigate or prosecute any alcohol or drug abuse patient.[facility]In the event this information is protected by the Federal Confidentiality of Alcohol and Drug Abuse Patient Records regulations: The Federal rules restrict any use of the information to criminally investigate or prosecute any alcohol or drug abuse patient.[facility]In the event this information is protected by the Federal Confidentiality of Alcohol and Drug Abuse Patient Records regulations: The Federal rules restrict any use of the information to criminally investigate or prosecute any alcohol or drug abuse patient.[facility]In the event this information is protected by the Federal Confidentiality of Alcohol and Drug Abuse Patient Records regulations: The Federal rules restrict any use of the information to criminally investigate or prosecute any alcohol or drug abuse patient.[facility]In the event this information is protected by the Federal Confidentiality of Alcohol and Drug Abuse Patient Records regulations: The Federal rules restrict any use of the information to criminally investigate or prosecute any alcohol or drug abuse patient.[facility]In the event this information is protected by the Federal Confidentiality of Alcohol and Drug Abuse Patient Records regulations: The Federal rules restrict any use of the information to criminally investigate or prosecute any alcohol or drug abuse patient.[facility]In the event this information is protected by the Federal Confidentiality of Alcohol and Drug Abuse Patient Records regulations: The Federal rules restrict any use of the information to criminally investigate or prosecute any alcohol or drug abuse patient.[facility]In the event this information is protected by the Federal Confidentiality of Alcohol and Drug Abuse Patient Records regulations: The Federal rules restrict any use of the information to criminally investigate or prosecute any alcohol or drug abuse patient.[facility]In the event this information is protected by the Federal Confidentiality of Alcohol and Drug Abuse Patient Records regulations: The Federal rules restrict any use of the information to criminally investigate or prosecute any alcohol or drug abuse patient.[facility]In the event this information is protected by the Federal Confidentiality of Alcohol and Drug Abuse Patient Records regulations: The Federal rules restrict any use of the information to criminally investigate or prosecute any alcohol or drug abuse patient.[facility]In the event this information is protected by the Federal Confidentiality of Alcohol and Drug Abuse Patient Records regulations: The Federal rules restrict any use of the information to criminally investigate or prosecute any alcohol or drug abuse patient.[facility]In the event this information is protected by the Federal Confidentiality of Alcohol and Drug Abuse Patient Records regulations: The Federal rules restrict any use of the information to criminally investigate or prosecute any alcohol or drug abuse patient.[facility]In the event this information is protected by the Federal Confidentiality of Alcohol and Drug Abuse Patient Records regulations: The Federal rules restrict any use of the information to criminally investigate or prosecute any alcohol or drug abuse patient.[facility]In the event this information is protected by the Federal Confidentiality of Alcohol and Drug Abuse Patient Records regulations: The Federal rules restrict any use of the information to criminally investigate or prosecute any alcohol or drug abuse patient.[facility]In the event this information is protected by the Federal Confidentiality of Alcohol and Drug Abuse Patient Records regulations: The Federal rules restrict any use of the information to criminally investigate or prosecute any alcohol or drug abuse patient.[facility]In the event this information is protected by the Federal Confidentiality of Alcohol and Drug Abuse Patient Records regulations: The Federal rules restrict any use of the information to criminally investigate or prosecute any alcohol or drug abuse patient.[facility]In the event this information is protected by the Federal Confidentiality of Alcohol and Drug Abuse Patient Records regulations: The Federal rules restrict any use of the information to criminally investigate or prosecute any alcohol or drug abuse patient.[facility]In the event this information is protected by the Federal Confidentiality of Alcohol and Drug Abuse Patient Records regulations: The Federal rules restrict any use of the information to criminally investigate or prosecute any alcohol or drug abuse patient.[facility]In the event this information is protected by the Federal Confidentiality of Alcohol and Drug Abuse Patient Records regulations: The Federal rules restrict any use of the information to criminally investigate or prosecute any alcohol or drug abuse patient.[facility]In the event this information is protected by the Federal Confidentiality of Alcohol and Drug Abuse Patient Records regulations: The Federal rules restrict any use of the information to criminally investigate or prosecute any alcohol or drug abuse patient.[facility]In the event this information is protected by the Federal Confidentiality of Alcohol and Drug Abuse Patient Records regulations: The Federal rules restrict any use of the information to criminally investigate or prosecute any alcohol or drug abuse patient.[facility]In the event this information is protected by the Federal Confidentiality of Alcohol and Drug Abuse Patient Records regulations: The Federal rules restrict any use of the information to criminally investigate or prosecute any alcohol or drug abuse patient.[facility]In the event this information is protected by the Federal Confidentiality of Alcohol and Drug Abuse Patient Records regulations: The Federal rules restrict any use of the information to criminally investigate or prosecute any alcohol or drug abuse patient.[facility]In the event this information is protected by the Federal Confidentiality of Alcohol and Drug Abuse Patient Records regulations: The Federal rules restrict any use of the information to criminally investigate or prosecute any alcohol or drug abuse patient.[facility]In the event this information is protected by the Federal Confidentiality of Alcohol and Drug Abuse Patient Records regulations: The Federal rules restrict any use of the information to criminally investigate or prosecute any alcohol or drug abuse patient.[facility]In the event this information is protected by the Federal Confidentiality of Alcohol and Drug Abuse Patient Records regulations: The Federal rules restrict any use of the information to criminally investigate or prosecute any alcohol or drug abuse patient.[facility]In the event this information is protected by the Federal Confidentiality of Alcohol and Drug Abuse Patient Records regulations: The Federal rules restrict any use of the information to criminally investigate or prosecute any alcohol or drug abuse patient.[facility]In the event this information is protected by the Federal Confidentiality of Alcohol and Drug Abuse Patient Records regulations: The Federal rules restrict any use of the information to criminally investigate or prosecute any alcohol or drug abuse patient.[facility]In the event this information is protected by the Federal Confidentiality of Alcohol and Drug Abuse Patient Records regulations: The Federal rules restrict any use of the information to criminally investigate or prosecute any alcohol or drug abuse patient.[facility]In the event this information is protected by the Federal Confidentiality of Alcohol and Drug Abuse Patient Records regulations: The Federal rules restrict any use of the information to criminally investigate or prosecute any alcohol or drug abuse patient.[facility]In the event this information is protected by the Federal Confidentiality of Alcohol and Drug Abuse Patient Records regulations: The Federal rules restrict any use of the information to criminally investigate or prosecute any alcohol or drug abuse patient.[facility]In the event this information is protected by the Federal Confidentiality of Alcohol and Drug Abuse Patient Records regulations: The Federal rules restrict any use of the information to criminally investigate or prosecute any alcohol or drug abuse patient.[facility]In the event this information is protected by the Federal Confidentiality of Alcohol and Drug Abuse Patient Records regulations: The Federal rules restrict any use of the information to criminally investigate or prosecute any alcohol or drug abuse patient.[facility]In the event this information is protected by the Federal Confidentiality of Alcohol and Drug Abuse Patient Records regulations: The Federal rules restrict any use of the information to criminally investigate or prosecute any alcohol or drug abuse patient.[facility]In the event this information is protected by the Federal Confidentiality of Alcohol and Drug Abuse Patient Records regulations: The Federal rules restrict any use of the information to criminally investigate or prosecute any alcohol or drug abuse patient.[facility]In the event this information is protected by the Federal Confidentiality of Alcohol and Drug Abuse Patient Records regulations: The Federal rules restrict any use of the information to criminally investigate or prosecute any alcohol or drug abuse patient.[facility] CenterIn the event this information is protected by the Federal Confidentiality of Alcohol and Drug Abuse Patient Records regulations: The Federal rules restrict any use of the information to criminally investigate or prosecute any alcohol or drug abuse patient.[facility] CenterIn the event this information is protected by the Federal Confidentiality of Alcohol and Drug Abuse Patient Records regulations: The Federal rules restrict any use of the information to criminally investigate or prosecute any alcohol or drug abuse patient.[facility] CenterIn the event this information is protected by the Federal Confidentiality of Alcohol and Drug Abuse Patient Records regulations: The Federal rules restrict any use of the information to criminally investigate or prosecute any alcohol or drug abuse patient.[facility] CenterIn the event this information is protected by the Federal Confidentiality of Alcohol and Drug Abuse Patient Records regulations: The Federal rules restrict any use of the information to criminally investigate or prosecute any alcohol or drug abuse patient.[facility] CenterIn the event this information is protected by the Federal Confidentiality of Alcohol and Drug Abuse Patient Records regulations: The Federal rules restrict any use of the information to criminally investigate or prosecute any alcohol or drug abuse patient.[facility] CenterIn the event this information is protected by the Federal Confidentiality of Alcohol and Drug Abuse Patient Records regulations: The Federal rules restrict any use of the information to criminally investigate or prosecute any alcohol or drug abuse patient.[facility] CenterIn the event this information is protected by the Federal Confidentiality of Alcohol and Drug Abuse Patient Records regulations: The Federal rules restrict any use of the information to criminally investigate or prosecute any alcohol or drug abuse patient.[facility] CenterIn the event this information is protected by the Federal Confidentiality of Alcohol and Drug Abuse Patient Records regulations: The Federal rules restrict any use of the information to criminally investigate or prosecute any alcohol or drug abuse patient.[facility] CenterIn the event this information is protected by the Federal Confidentiality of Alcohol and Drug Abuse Patient Records regulations: The Federal rules restrict any use of the information to criminally investigate or prosecute any alcohol or drug abuse patient.[facility] CenterIn the event this information is protected by the Federal Confidentiality of Alcohol and Drug Abuse Patient Records regulations: The Federal rules restrict any use of the information to criminally investigate or prosecute any alcohol or drug abuse patient.[facility] CenterIn the event this information is protected by the Federal Confidentiality of Alcohol and Drug Abuse Patient Records regulations: The Federal rules restrict any use of the information to criminally investigate or prosecute any alcohol or drug abuse patient.[facility] CenterIn the event this information is protected by the Federal Confidentiality of Alcohol and Drug Abuse Patient Records regulations: The Federal rules restrict any use of the information to criminally investigate or prosecute any alcohol or drug abuse patient.[facility] CenterIn the event this information is protected by the Federal Confidentiality of Alcohol and Drug Abuse Patient Records regulations: The Federal rules restrict any use of the information to criminally investigate or prosecute any alcohol or drug abuse patient.[facility] CenterIn the event this information is protected by the Federal Confidentiality of Alcohol and Drug Abuse Patient Records regulations: The Federal rules restrict any use of the information to criminally investigate or prosecute any alcohol or drug abuse patient.[facility] CenterIn the event this information is protected by the Federal Confidentiality of Alcohol and Drug Abuse Patient Records regulations: The Federal rules restrict any use of the information to criminally investigate or prosecute any alcohol or drug abuse patient.[facility] CenterIn the event this information is protected by the Federal Confidentiality of Alcohol and Drug Abuse Patient Records regulations: The Federal rules restrict any use of the information to criminally investigate or prosecute any alcohol or drug abuse patient.[facility] CenterIn the event this information is protected by the Federal Confidentiality of Alcohol and Drug Abuse Patient Records regulations: The Federal rules restrict any use of the information to criminally investigate or prosecute any alcohol or drug abuse patient.[facility] CenterIn the event this information is protected by the Federal Confidentiality of Alcohol and Drug Abuse Patient Records regulations: The Federal rules restrict any use of the information to criminally investigate or prosecute any alcohol or drug abuse patient.[facility] CenterIn the event this information is protected by the Federal Confidentiality of Alcohol and Drug Abuse Patient Records regulations: The Federal rules restrict any use of the information to criminally investigate or prosecute any alcohol or drug abuse patient.[facility] CenterIn the event this information is protected by the Federal Confidentiality of Alcohol and Drug Abuse Patient Records regulations: The Federal rules restrict any use of the information to criminally investigate or prosecute any alcohol or drug abuse patient.[facility] CenterIn the event this information is protected by the Federal Confidentiality of Alcohol and Drug Abuse Patient Records regulations: The Federal rules restrict any use of the information to criminally investigate or prosecute any alcohol or drug abuse patient.[facility] CenterIn the event this information is protected by the Federal Confidentiality of Alcohol and Drug Abuse Patient Records regulations: The Federal rules restrict any use of the information to criminally investigate or prosecute any alcohol or drug abuse patient.[facility] CenterIn the event this information is protected by the Federal Confidentiality of Alcohol and Drug Abuse Patient Records regulations: The Federal rules restrict any use of the information to criminally investigate or prosecute any alcohol or drug abuse patient.[facility] CenterIn the event this information is protected by the Federal Confidentiality of Alcohol and Drug Abuse Patient Records regulations: The Federal rules restrict any use of the information to criminally investigate or prosecute any alcohol or drug abuse patient.[facility] CenterIn the event this information is protected by the Federal Confidentiality of Alcohol and Drug Abuse Patient Records regulations: The Federal rules restrict any use of the information to criminally investigate or prosecute any alcohol or drug abuse patient.[facility] CenterIn the event this information is protected by the Federal Confidentiality of Alcohol and Drug Abuse Patient Records regulations: The Federal rules restrict any use of the information to criminally investigate or prosecute any alcohol or drug abuse patient.[facility] CenterIn the event this information is protected by the Federal Confidentiality of Alcohol and Drug Abuse Patient Records regulations: The Federal rules restrict any use of the information to criminally investigate or prosecute any alcohol or drug abuse patient.[facility] CenterIn the event this information is protected by the Federal Confidentiality of Alcohol and Drug Abuse Patient Records regulations: The Federal rules restrict any use of the information to criminally investigate or prosecute any alcohol or drug abuse patient.[facility]In the event this information is protected by the Federal Confidentiality of Alcohol and Drug Abuse Patient Records regulations: The Federal rules restrict any use of the information to criminally investigate or prosecute any alcohol or drug abuse patient.[facility] CenterIn the event this information is protected by the Federal Confidentiality of Alcohol and Drug Abuse Patient Records regulations: The Federal rules restrict any use of the information to criminally investigate or prosecute any alcohol or drug abuse patient.[facility] CenterIn the event this information is protected by the Federal Confidentiality of Alcohol and Drug Abuse Patient Records regulations: The Federal rules restrict any use of the information to criminally investigate or prosecute any alcohol or drug abuse patient.[facility]In the event this information is protected by the Federal Confidentiality of Alcohol and Drug Abuse Patient Records regulations: The Federal rules restrict any use of the information to criminally investigate or prosecute any alcohol or drug abuse patient.[facility]In the event this information is protected by the Federal Confidentiality of Alcohol and Drug Abuse Patient Records regulations: The Federal rules restrict any use of the information to criminally investigate or prosecute any alcohol or drug abuse patient.[facility]In the event this information is protected by the Federal Confidentiality of Alcohol and Drug Abuse Patient Records regulations: The Federal rules restrict any use of the information to criminally investigate or prosecute any alcohol or drug abuse patient.[facility]In the event this information is protected by the Federal Confidentiality of Alcohol and Drug Abuse Patient Records regulations: The Federal rules restrict any use of the information to criminally investigate or prosecute any alcohol or drug abuse patient.[facility]In the event this information is protected by the Federal Confidentiality of Alcohol and Drug Abuse Patient Records regulations: The Federal rules restrict any use of the information to criminally investigate or prosecute any alcohol or drug abuse patient.[facility]In the event this information is protected by the Federal Confidentiality of Alcohol and Drug Abuse Patient Records regulations: The Federal rules restrict any use of the information to criminally investigate or prosecute any alcohol or drug abuse patient.[facility]In the event this information is protected by the Federal Confidentiality of Alcohol and Drug Abuse Patient Records regulations: The Federal rules restrict any use of the information to criminally investigate or prosecute any alcohol or drug abuse patient.[facility]In the event this information is protected by the Federal Confidentiality of Alcohol and Drug Abuse Patient Records regulations: The Federal rules restrict any use of the information to criminally investigate or prosecute any alcohol or drug abuse patient.[facility]In the event this information is protected by the Federal Confidentiality of Alcohol and Drug Abuse Patient Records regulations: The Federal rules restrict any use of the information to criminally investigate or prosecute any alcohol or drug abuse patient.[facility]In the event this information is protected by the Federal Confidentiality of Alcohol and Drug Abuse Patient Records regulations: The Federal rules restrict any use of the information to criminally investigate or prosecute any alcohol or drug abuse patient.[facility]In the event this information is protected by the Federal Confidentiality of Alcohol and Drug Abuse Patient Records regulations: The Federal rules restrict any use of the information to criminally investigate or prosecute any alcohol or drug abuse patient.[facility]In the event this information is protected by the Federal Confidentiality of Alcohol and Drug Abuse Patient Records regulations: The Federal rules restrict any use of the information to criminally investigate or prosecute any alcohol or drug abuse patient.[facility]In the event this information is protected by the Federal Confidentiality of Alcohol and Drug Abuse Patient Records regulations: The Federal rules restrict any use of the information to criminally investigate or prosecute any alcohol or drug abuse patient.[facility]In the event this information is protected by the Federal Confidentiality of Alcohol and Drug Abuse Patient Records regulations: The Federal rules restrict any use of the information to criminally investigate or prosecute any alcohol or drug abuse patient.[facility]In the event this information is protected by the Federal Confidentiality of Alcohol and Drug Abuse Patient Records regulations: The Federal rules restrict any use of the information to criminally investigate or prosecute any alcohol or drug abuse patient.[facility]In the event this information is protected by the Federal Confidentiality of Alcohol and Drug Abuse Patient Records regulations: The Federal rules restrict any use of the information to criminally investigate or prosecute any alcohol or drug abuse patient.[facility]In the event this information is protected by the Federal Confidentiality of Alcohol and Drug Abuse Patient Records regulations: The Federal rules restrict any use of the information to criminally investigate or prosecute any alcohol or drug abuse patient.[facility]In the event this information is protected by the Federal Confidentiality of Alcohol and Drug Abuse Patient Records regulations: The Federal rules restrict any use of the information to criminally investigate or prosecute any alcohol or drug abuse patient.[facility]In the event this information is protected by the Federal Confidentiality of Alcohol and Drug Abuse Patient Records regulations: The Federal rules restrict any use of the information to criminally investigate or prosecute any alcohol or drug abuse patient.[facility]In the event this information is protected by the Federal Confidentiality of Alcohol and Drug Abuse Patient Records regulations: The Federal rules restrict any use of the information to criminally investigate or prosecute any alcohol or drug abuse patient.[facility]In the event this information is protected by the Federal Confidentiality of Alcohol and Drug Abuse Patient Records regulations: The Federal rules restrict any use of the information to criminally investigate or prosecute any alcohol or drug abuse patient.[facility]In the event this information is protected by the Federal Confidentiality of Alcohol and Drug Abuse Patient Records regulations: The Federal rules restrict any use of the information to criminally investigate or prosecute any alcohol or drug abuse patient.[facility]In the event this information is protected by the Federal Confidentiality of Alcohol and Drug Abuse Patient Records regulations: The Federal rules restrict any use of the information to criminally investigate or prosecute any alcohol or drug abuse patient.[facility]In the event this information is protected by the Federal Confidentiality of Alcohol and Drug Abuse Patient Records regulations: The Federal rules restrict any use of the information to criminally investigate or prosecute any alcohol or drug abuse patient.[facility]In the event this information is protected by the Federal Confidentiality of Alcohol and Drug Abuse Patient Records regulations: The Federal rules restrict any use of the information to criminally investigate or prosecute any alcohol or drug abuse patient.[facility]In the event this information is protected by the Federal Confidentiality of Alcohol and Drug Abuse Patient Records regulations: The Federal rules restrict any use of the information to criminally investigate or prosecute any alcohol or drug abuse patient.[facility]In the event this information is protected by the Federal Confidentiality of Alcohol and Drug Abuse Patient Records regulations: The Federal rules restrict any use of the information to criminally investigate or prosecute any alcohol or drug abuse patient.[facility]In the event this information is protected by the Federal Confidentiality of Alcohol and Drug Abuse Patient Records regulations: The Federal rules restrict any use of the information to criminally investigate or prosecute any alcohol or drug abuse patient.[facility]In the event this information is protected by the Federal Confidentiality of Alcohol and Drug Abuse Patient Records regulations: The Federal rules restrict any use of the information to criminally investigate or prosecute any alcohol or drug abuse patient.[facility]In the event this information is protected by the Federal Confidentiality of Alcohol and Drug Abuse Patient Records regulations: The Federal rules restrict any use of the information to criminally investigate or prosecute any alcohol or drug abuse patient.[facility]In the event this information is protected by the Federal Confidentiality of Alcohol and Drug Abuse Patient Records regulations: The Federal rules restrict any use of the information to criminally investigate or prosecute any alcohol or drug abuse patient.[facility]In the event this information is protected by the Federal Confidentiality of Alcohol and Drug Abuse Patient Records regulations: The Federal rules restrict any use of the information to criminally investigate or prosecute any alcohol or drug abuse patient.[facility]In the event this information is protected by the Federal Confidentiality of Alcohol and Drug Abuse Patient Records regulations: The Federal rules restrict any use of the information to criminally investigate or prosecute any alcohol or drug abuse patient.[facility]In the event this information is protected by the Federal Confidentiality of Alcohol and Drug Abuse Patient Records regulations: The Federal rules restrict any use of the information to criminally investigate or prosecute any alcohol or drug abuse patient.[facility]In the event this information is protected by the Federal Confidentiality of Alcohol and Drug Abuse Patient Records regulations: The Federal rules restrict any use of the information to criminally investigate or prosecute any alcohol or drug abuse patient.[facility]In the event this information is protected by the Federal Confidentiality of Alcohol and Drug Abuse Patient Records regulations: The Federal rules restrict any use of the information to criminally investigate or prosecute any alcohol or drug abuse patient.[facility]In the event this information is protected by the Federal Confidentiality of Alcohol and Drug Abuse Patient Records regulations: The Federal rules restrict any use of the information to criminally investigate or prosecute any alcohol or drug abuse patient.[facility]In the event this information is protected by the Federal Confidentiality of Alcohol and Drug Abuse Patient Records regulations: The Federal rules restrict any use of the information to criminally investigate or prosecute any alcohol or drug abuse patient.[facility]In the event this information is protected by the Federal Confidentiality of Alcohol and Drug Abuse Patient Records regulations: The Federal rules restrict any use of the information to criminally investigate or prosecute any alcohol or drug abuse patient.[facility]In the event this information is protected by the Federal Confidentiality of Alcohol and Drug Abuse Patient Records regulations: The Federal rules restrict any use of the information to criminally investigate or prosecute any alcohol or drug abuse patient.[facility]In the event this information is protected by the Federal Confidentiality of Alcohol and Drug Abuse Patient Records regulations: The Federal rules restrict any use of the information to criminally investigate or prosecute any alcohol or drug abuse patient.[facility]In the event this information is protected by the Federal Confidentiality of Alcohol and Drug Abuse Patient Records regulations: The Federal rules restrict any use of the information to criminally investigate or prosecute any alcohol or drug abuse patient.[facility]In the event this information is protected by the Federal Confidentiality of Alcohol and Drug Abuse Patient Records regulations: The Federal rules restrict any use of the information to criminally investigate or prosecute any alcohol or drug abuse patient.[facility]In the event this information is protected by the Federal Confidentiality of Alcohol and Drug Abuse Patient Records regulations: The Federal rules restrict any use of the information to criminally investigate or prosecute any alcohol or drug abuse patient.[facility]In the event this information is protected by the Federal Confidentiality of Alcohol and Drug Abuse Patient Records regulations: The Federal rules restrict any use of the information to criminally investigate or prosecute any alcohol or drug abuse patient.[facility]In the event this information is protected by the Federal Confidentiality of Alcohol and Drug Abuse Patient Records regulations: The Federal rules restrict any use of the information to criminally investigate or prosecute any alcohol or drug abuse patient.[facility]In the event this information is protected by the Federal Confidentiality of Alcohol and Drug Abuse Patient Records regulations: The Federal rules restrict any use of the information to criminally investigate or prosecute any alcohol or drug abuse patient.[facility]In the event this information is protected by the Federal Confidentiality of Alcohol and Drug Abuse Patient Records regulations: The Federal rules restrict any use of the information to criminally investigate or prosecute any alcohol or drug abuse patient.[facility]In the event this information is protected by the Federal Confidentiality of Alcohol and Drug Abuse Patient Records regulations: The Federal rules restrict any use of the information to criminally investigate or prosecute any alcohol or drug abuse patient.[facility]In the event this information is protected by the Federal Confidentiality of Alcohol and Drug Abuse Patient Records regulations: The Federal rules restrict any use of the information to criminally investigate or prosecute any alcohol or drug abuse patient.[facility]In the event this information is protected by the Federal Confidentiality of Alcohol and Drug Abuse Patient Records regulations: The Federal rules restrict any use of the information to criminally investigate or prosecute any alcohol or drug abuse patient.[facility]In the event this information is protected by the Federal Confidentiality of Alcohol and Drug Abuse Patient Records regulations: The Federal rules restrict any use of the information to criminally investigate or prosecute any alcohol or drug abuse patient.[facility]In the event this information is protected by the Federal Confidentiality of Alcohol and Drug Abuse Patient Records regulations: The Federal rules restrict any use of the information to criminally investigate or prosecute any alcohol or drug abuse patient.[facility] CenterIn the event this information is protected by the Federal Confidentiality of Alcohol and Drug Abuse Patient Records regulations: The Federal rules restrict any use of the information to criminally investigate or prosecute any alcohol or drug abuse patient.[facility] Center[facility] the event this information is protected by the Federal Confidentiality of Alcohol and Drug Abuse Patient Records regulations: The Federal rules restrict any use of the information to criminally investigate or prosecute any alcohol or drug abuse patient.[facility] Center[facility] the event this information is protected by the Federal Confidentiality of Alcohol and Drug Abuse Patient Records regulations: The Federal rules restrict any use of the information to criminally investigate or prosecute any alcohol or drug abuse patient.[facility] Reason for Visit (unrecogniz ed section and content) Reason Comments Physical Therapy Specialty Diagnoses / Procedures Referred By Contac t Referred To Contact [facility] Diagnoses T4 spinal cord injury, sequela (HCC) Muscle spasticity Procedures CONSULT TO PHYSICAL THERAPY PHYSICAL THERAPY EVALUATION HIGH COMPLEX 45 MINS Daysi Roque PA-C [address] [place] [address] Phone: tel: fax: [facility] [address] [place] [address] Referral ID Status Reason Start Date Expiration Date Visits Requested Visits Authorized [id number] Authorized Auto-Generat ed Referral 08/25/2024 06/17/2025 99 99 Reason Comments PT Discharge Reason Comments PT Progress Note Specialty Diagnoses / Procedures Referred By Contac t Referred To Contact [facility] Diagnoses Impingement syndrome of right shoulder Impingement syndrome of left shoulder Procedures CONSULT TO PHYSICAL THERAPY PHYSICAL THERAPY EVALUATION HIGH COMPLEX 45 MINS Jackson De La Rosa PA-C [address] [place] [address] Phone: tel: [facility] [address] [place] [address] Referral ID Status Reason Start Date Expiration Date Visits Requested Visits Authorized [id number] Authorized Auto-Generat ed Referral 06/18/2024 06/17/2025 99 99 Reason Comments Infusion Pain Specialty Diagnoses / Procedures Referred By Contac t Referred To Contact Neurology / HEADACHE Diagnoses KETAMINE Procedures INFUSION KETAMINE Eitan HernandezDO [address] [place] [address] Neur Headache Main [address] [place] [address] Referral ID Status Reason Start Date Expiration Date Visits Requested Visits Authorized [id number] Authorized Patient Cleared - INN Insurance Found 07/03/2022 10/01/2022 99 99 Reason Comments Infusion Specialty Diagnoses / Procedures Referred By Contac t Referred To Contact Neurology / HEADACHE Diagnoses KETAMINE Procedures INFUSION KETAMINE Eitan HernandezDO [address] [place] [address] Neur Headache Main [address] [place] [address] Referral ID Status Reason Start Date Expiration Date V isits Requested Visits Authorized [id number] Authorized 12/26/2021 06/17/2022 99 99 Specialty Diagnoses / Procedures Referred By Contac t Referred To Contact Physical Therapy / PHYSICAL THERAPY Diagnoses Paraplegia (HCC) [G82.20] Procedures EST RS PT Daysi Duran PA-C [phone] Annette Ramsey, PT [address] [place] [address] Referral ID Status Reason Start Date Expiration Date V isits Requested Visits Authorized [id number] Authorized 06/18/2021 06/17/2022 30 30 Reason Comments Established Patient Reason Comments UTI frequency urination, cloudy, foul smelling x2 weeks Cough x1 month Reason Comments Refill Request Reason Comments Appointment Cancelled Reason Comments Appointment Reason Comments Forms Reason Comments Patient Update Reason Comments Established Patient baclofen pump Reason Comments PT Progress Note Specialty Diagnoses / Procedures Referred By Contac t Referred To Contact Physical Therapy / PHYSICAL THERAPY Diagnoses Paraplegia (HCC) [G82.20] Procedures EST RS PT NEURO Daysi Roque PA-C [address] [phone] Annette Ramsey, PT [address] [place] [address] Reason Comments Chronic Pain Specialty Diagnoses / Procedures Referred By Contac t Referred To Contact Physical Medicine and Rehab / PHYSICAL MEDICINE AND REHAB Diagnoses Paraplegia, unspecified Unspecified injury at T7-t10 level of thoracic spinal cord, initial encounter Procedures BOTULINUM TOXIN A PER 1 UNIT RENEWAL J0585 - BOTULINUM TOXIN A UP TO 200 UNITS EVERY 90 DAYS x 1 YEAR FOR SPASTICITY 68903 - CHEMODENERV 1 EXTREMITY 1-4 35736 - CHEMODENERV ADDL EXTREM 1-4 Ruslan Fernandez MD [address] [phone] Ruslan Sherwood MD [address] [place] [address] Referral ID Status Reason Start Date Expiration Date V isits Requested Visits Authorized [id number] Authorized 08/29/2021 06/17/2022 99 99 Reason Comments Patient Question Reason Onset Date Comments Transition Of Care 01/13/2022 TCM Initial H ospital Discharge 01/12/2022 Reason Comments Transition Of Care 01/07- for sep sis Reason Comments Refill Request Reason Comments Wound Check Right leg Reason Comments Chronic Pain Reason Comments Orders Reason Comments Established Patient Follow Up Reason Comments medication review Reason Comments Patient Request Ketamine Referral ID Status Reason Start Date Expiration Date V isits Requested Visits Authorized [id number] Authorized 05/22/2022 06/17/2023 30 30 Reason Comments Testicle swollen and tender x 2 days Referral ID Status Reason Start Date Expiration Date Visits Re quested Visits Authorized [id number] Closed 05/22/2022 06/17/2023 30 30 Specialty Diagnoses / Procedures Referred By Contac t Referred To Contact Physical Medicine and Rehab / PHYSICAL MEDICINE AND REHAB Diagnoses Paraplegia, unspecified Unspecified injury at T7-t10 level of thoracic spinal cord, initial encounter Cramp and spasm Procedures BOTULINUM TOXIN A PER 1 UNIT RENEWAL J0585 - BOTULINUM TOXIN A UP TO 200 UNITS EVERY 90 DAYS x 1 YEAR FOR SPASTICITY 16343 - CHEMODENERV 1 EXTREMITY 1-4 34310 - CHEMODENERV ADDL EXTREM 1-4 Ruslan Fernandez MD [address] [place] [address] Ruslan Sherwood MD [address] [place] [address] Referral ID Status Reason Start Date Expiration Date V isits Requested Visits Authorized [id number] Authorized 07/10/2022 07/10/2023 4 4 Specialty Diagnoses / Procedures Referred By Contac t Referred To Contact Physical Therapy / PHYSICAL THERAPY Diagnoses Paraplegia (HCC) [G82.20] Procedures EST RS PT Daysi Duran PA-C [address] [phone] Conrad Dodd PT [address] [place] [address] Referral ID Status Reason Start Date Expiration Date V isits Requested Visits Authorized [id number] Authorized 06/20/2022 06/17/2023 99 99 Reason Comments Epididymitis Was seen at [facility] in May, treated with Levaquin Neurogenic Bladder Specialty Diagnoses / Procedures Referred By Contac t Referred To Contact Physical Therapy / PHYSICAL THERAPY Diagnoses Paraplegia (HCC) [G82.20] Procedures EST RS PT Daysi Duran PA-C [address] [phone] Conrad Dodd PT [address] [place] [address] Reason Comments Established Patient Follow-Up Reason Comments Follow Up Injections Reason Comments Insurance Authorization Zofran Reason Comments Botox Injection Specialty Diagnoses / Procedures Referred By Contac t Referred To Contact Physical Medicine and Rehab / PHYSICAL MEDICINE AND REHAB Diagnoses Paraplegia, unspecified Unspecified injury at T7-t10 level of thoracic spinal cord, initial encounter Cramp and spasm Procedures BOTULINUM TOXIN A PER 1 UNIT RENEWAL J0585 - BOTULINUM TOXIN A UP TO 200 UNITS EVERY 90 DAYS x 1 YEAR FOR SPASTICITY 22447 - CHEMODENERV 1 EXTREMITY 1-4 41953 - CHEMODENERV ADDL EXTREM 1-4 Ruslan Fernandez MD [address] [place] [address] Ruslan Sherwood MD [address] [place] [address] Reason Comments Spasticity ITB Refill Reason Comments UTI Painful urination, l ow back pain, urine odor Reason Onset Date Comments Refill Request 03/05/2023 Reason Comments Fever With body aches x 1 day Reason Comments Results Urine Cx Reason Comments Results Reason Comments Established Patient Specialty Diagnoses / Procedures Referred By Contact Referred To Contact ORTHOPAEDIC SURGERY Diagnoses Lateral epicondylitis, left elbow LT ELBOW TENJET Procedures TENOTOMY ELBOW LATERAL/MEDIAL PERCUTANEOUS US GUIDANCE NEEDLE PLACEMENT IMG S&I EARL ESTABLISH Ju Gustafson, DO [address] [place] [address] [facility] [address] [phone] Referral ID Status Reason Start Date Expiration Date Visits Re quested Visits Authorized [id number] Closed 04/20/2023 06/17/2023 1 1 Reason Comments Urinary Frequency x 2 days, left upper eyelid x 3 days Reason Comments Established Patient Lab results Reason Comments Urinary Frequency Frequency and urgenc y x 1 week Reason Comments Neck Pain Reason Comments Wound Check Possible cellulitis on right leg/ankle area for past few days Reason Comments ITB Refill Reason Comments Constipation Referral ID Status Reason Start Date Expiration Date V isits Requested Visits Authorized [id number] Authorized 07/23/2023 07/23/2024 4 4 Reason Comments Follow Up Baclofen refill Reason Comments Follow Up Reason Comments Hospital Follow Up Reason Comments MEDICATION REFILL Reason Onset Date Comments Refill Request 01/16/2024 Reason Comments Insurance Authorization Reason Comments hospital follow up Reason Onset Date Comments Refill Request 02/06/2024 Reason Comments Recheck 6 week follow up Reason Comments Established Patient Bilateral shoulder c ortisone injections Follow Up Bilateral shoulder c ortisone injections Injections Bilateral shoulder c ortisone injections Established Patient Bilateral shoulder c ortisone injections Follow Up Bilateral shoulder c ortisone injections Injections Bilateral shoulder c ortisone injections Established Patient Cortisone injection Injections Cortisone injection Reason Comments UTI Reason Comments ITB Refill Reason Comments ITB ADJUSTMENT Reason Onset Date Comments Refill Request 06/17/2024 Reason Comments Consult ,ITB ADJ Reason Comments Follow Up BACLOFEN REFILL - Reason Comments ITB Appointment Reason Comments Pre-Op Update Reason Comments Spasticity ITB adjustment Reason Onset Date Comments Refill Request 07/22/2024 Reason Comments Medication Problem Reason Comments Spasticity Reason Comments Transition Of Care Specialty Diagnoses / Procedures Referred By Francheska t Referred To Contact Physical Medicine and Rehab / PHYSICAL MEDICINE AND REHAB Diagnoses Paraplegia, unspecified Unspecified injury at T7-t10 level of thoracic spinal cord, initial encounter Cramp and spasm Procedures BOTULINUM TOXIN A PER 1 UNIT RENEWAL J0585 - BOTULINUM TOXIN A UP TO 200 UNITS EVERY 90 DAYS x 1 YEAR FOR SPASTICITY 39950 - CHEMODENERV 1 EXTREMITY 1-4 99264 - CHEMODENERV ADDL EXTREM 1-4 Ruslan Fernandez MD [address] [place] [address] Phone: tel: fax: Tahir Camp MD [address] [place] [address] Phone: tel: fax: Referral ID Status Reason Start Date Expiration Date V isits Requested Visits Authorized [id number] Authorized 08/05/2024 08/05/2025 4 4 Reason Comments Informed Consent Reason Comments Follow Up Reason Comments Radiology XR Specialty Diagnoses / Procedures Referred By Contindia t Referred To Contact XR IMAGING Diagnoses Pain of both shoulder joints Procedures XR SHOULDER GENERAL 3V OR MORE AP/TRUE AP/OTHER LEFT RADEX SHOULDER COMPLETE MINIMUM 2 VIEWS Daysi Roque PA-C [address] [place] [address] Phone: tel: fax: XR IMAGING [place] [address] Referral ID Status Reason Start Date Expiration Date V isits Requested Visits Authorized [id number] Closed Auto-Generate d Referral 08/25/2024 09/24/2025 1 1 Reason Comments PT Eval Reason Onset Date Comments Refill Request 09/17/2024 Reason Comments Established Patient Follow up Reason Comments F/U 6 Month Patch to quit smokin g Reason Onset Date Comments Refill Request 10/08/2024 Reason Comments Consult Reason Comments Urinary Problem Body aches, chills, weakness, since last evening Reason Comments New Specialty Diagnoses / Procedures Referred By Contac t Referred To Contact Podiatry Diagnoses Onychomycosis Ingrown toenail Procedures CONSULT TO PODIATRY OFFICE/OUTPATIENT NEW HIGH MDM 60 MINUTES Anay Roque MD [address] [place] [address] Phone: tel: fax: Referral ID Status Reason Start Date Expiration Date V isits Requested Visits Authorized [id number] Closed PCP Requested Referral 09/30/2024 09/30/2025 1 1 Care Teams (unrecognized sec tion and content) 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 Relationship Specialty Start Date End Date Anay Roque MD [address] [place], [place] [address] PCP - General Internal Medicine 06/01/14 [place] [address] [place], [place] [id number] Consulting Neurology 08/13/14 Vanna Soares [address] [facility] [address] [place] [address] Orthopedics Orthopedics 07/14/20 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 Relationship Specialty Start Date End Date Anay Roque MD [address] [place], [place] [id number] PCP - General Internal Medicine 06/01/14 [place] [address] [place] [address] Consulting Neurology 08/13/14 Vanna Soares [address] [facility] [address] [place] [address] Orthopedics Orthopedics 07/14/20 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 Relationship Specialty Start Date End Date Anay Roque MD [address] [place] [address] PCP - General Internal Medicine 06/01/14 [place] [address] [place] [address] Consulting Neurology 08/13/14 Vanna Soares [address] [place] [address] Orthopedics Orthopedics 07/14/20 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 Relationship Specialty Start Date End Date Anay Roque MD [address] [place] [address] PCP - General Internal Medicine 06/01/14 [place] [address] [place] [address] Consulting Neurology 08/13/14 Vanna Soares [address] [place] [address] Orthopedics Orthopedics 07/14/20 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 Relationship Specialty Start Date End Date Anay Roque MD [address] [place] [address] PCP - General Internal Medicine 06/01/14 [place] [address] [place] [address] Consulting Neurology 08/13/14 Vanna Soares [address] [place] [address] Orthopedics Orthopedics 07/14/20 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 Relationship Specialty Start Date End Date Anay Roque MD [address] [place] [address] PCP - General Internal Medicine 06/01/14 [place] [address] [place] [address] Consulting Neurology 08/13/14 Vanna Soares [address] [place] [address] Orthopedics Orthopedics 07/14/20 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 Relationship Specialty Start Date End Date Anay Roque MD [address] [place] [address] PCP - General Internal Medicine 06/01/14 [place] [address] [place] [address] Consulting Neurology 08/13/14 Vanna Soares [address] [place] [address] Orthopedics Orthopedics 07/14/20 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 Relationship Specialty Start Date End Date Anay Roque MD [address] [place] [address] PCP - General Internal Medicine 06/01/14 [place] [address] [place] [address] Consulting Neurology 08/13/14 Vanna Soares [address] [place] [address] Orthopedics Orthopedics 07/14/20 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 Relationship Specialty Start Date End Date Anay Roque MD [address] [place] [address] PCP - General Internal Medicine 06/01/14 [place] [address] [place] [address] Consulting Neurology 08/13/14 Vanna Soares [address] [place] [address] Orthopedics Orthopedics 07/14/20 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 Relationship Specialty Start Date End Date Anay Roque MD [address] [place] [address] PCP - General Internal Medicine 06/01/14 [place] [address] [place] [address] Consulting Neurology 08/13/14 Vanna Soares [address] [place] [address] Orthopedics Orthopedics 07/14/20 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 Relationship Specialty Start Date End Date Anay Roque MD [address] [place] [address] PCP - General Internal Medicine 06/01/14 [place] [address] [place] [address] Consulting Neurology 08/13/14 Vanna Soares [address] [place] [address] Orthopedics Orthopedics 07/14/20 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 Relationship Specialty Start Date End Date Anay Roque MD [address] [place] [address] PCP - General Internal Medicine 06/01/14 [place] [address] [place] [address] Consulting Neurology 08/13/14 Vanna Soares [address] [place] [address] Orthopedics Orthopedics 07/14/20 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 Relationship Specialty Start Date End Date Anay Roque MD [address] [place] [address] PCP - General Internal Medicine 06/01/14 [place] [address] [place] [address] Consulting Neurology 08/13/14 Vanna Soares [address] [place] [address] Orthopedics Orthopedics 07/14/20 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 Relationship Specialty Start Date End Date Anay Roque MD [address] [place] [address] PCP - General Internal Medicine 06/01/14 [place] [address] [place] [address] Consulting Neurology 08/13/14 Vanna Soares [address] [place] [address] Orthopedics Orthopedics 07/14/20 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 Relationship Specialty Start Date End Date Anay Roque MD [address] [place] [address] PCP - General Internal Medicine 06/01/14 [place] [address] [place] [address] Consulting Neurology 08/13/14 Vanna Soares [address] [place] [address] Orthopedics Orthopedics 07/14/20 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 Relationship Specialty Start Date End Date Anay Roque MD [address] [place] [address] PCP - General Internal Medicine 06/01/14 [place] [address] [place] [address] Consulting Neurology 08/13/14 Vanna Soares [address] [place] [address] Orthopedics Orthopedics 07/14/20 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 Relationship Specialty Start Date End Date Anay Roque MD [address] [place] [address] PCP - General Internal Medicine 06/01/14 [place] [address] [place] [address] Consulting Neurology 08/13/14 Vanna Soares [address] [place] [address] Orthopedics Orthopedics 07/14/20 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 Relationship Specialty Start Date End Date Anay Roque MD [address] [place] [address] PCP - General Internal Medicine 06/01/14 [place] [address] [place] [address] Consulting Neurology 08/13/14 Vanna Soares [address] [place] [address] Orthopedics Orthopedics 07/14/20 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 Relationship Specialty Start Date End Date Anay Roque MD [address] [place] [address] PCP - General Internal Medicine 06/01/14 [place] [address] [place] [address] Consulting Neurology 08/13/14 Vanna Soares [address] [place] [address] Orthopedics Orthopedics 07/14/20 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 Relationship Specialty Start Date End Date Anay Roque MD [address] [place] [address] PCP - General Internal Medicine 06/01/14 [place] [address] [place] [address] Consulting Neurology 08/13/14 Vanna Soares [address] [place] [address] Orthopedics Orthopedics 07/14/20 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 Relationship Specialty Start Date End Date Anay Roque MD [address] [place] [address] PCP - General Internal Medicine 06/01/14 [place] [address] [place] [address] Consulting Neurology 08/13/14 Vanna Soares [address] [place] [address] Orthopedics Orthopedics 07/14/20 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 Relationship Specialty Start Date End Date Anay Roque MD [address] [place] [address] PCP - General Internal Medicine 06/01/14 [place] [address] [place] [address] Consulting Neurology 08/13/14 Vanna Soares [address] [place] [address] Orthopedics Orthopedics 07/14/20 [place] at [facility] Community Resource 01/10/22 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 Relationship Specialty Start Date End Date Anay Roque MD [address] [place] [address] PCP - General Internal Medicine 06/01/14 [place] [address] [place] [address] Consulting Neurology 08/13/14 Vanna Soares [address] [facility] [address] [place] [address] Orthopedics Orthopedics 07/14/20 [place] at [facility] Community Resource 01/10/22 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 Relationship Specialty Start Date End Date Anay Roque MD [address] [place] [address] PCP - General Internal Medicine 06/01/14 [place] [address] [place] [address] Consulting Neurology 08/13/14 Vanna Soares [address] [place] [address] Orthopedics Orthopedics 07/14/20 [place] at [facility] Community Resource 01/10/22 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 Relationship Specialty Start Date End Date Anay Roque MD [address] [place] [address] PCP - General Internal Medicine 06/01/14 [place] [address] [place] [address] Consulting Neurology 08/13/14 Vanna Soares [address] [place] [address] Orthopedics Orthopedics 07/14/20 [place] at [facility] Community Resource 01/10/22 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 Relationship Specialty Start Date End Date Anay Roque MD [address] [place] [address] PCP - General Internal Medicine 06/01/14 [place] [address] [place] [address] Consulting Neurology 08/13/14 Vanna Soares [address] [place] [address] Orthopedics Orthopedics 07/14/20 [place] at [facility] Community Resource 01/10/22 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 Relationship Specialty Start Date End Date Anay Roque MD [address] [place] [address] PCP - General Internal Medicine 06/01/14 [place] [address] [place] [address] Consulting Neurology 08/13/14 Vanna Soares [address] [place] [address] Orthopedics Orthopedics 07/14/20 [place] at [place] [address] Community Resource 01/10/22 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 Relationship Specialty Start Date End Date Anay Roque MD [address] [place] [address] PCP - General Internal Medicine 06/01/14 [place] [address] [place] [address] Consulting Neurology 08/13/14 Vanna Soares [address] [facility] [address] [place] [address] Orthopedics Orthopedics 07/14/20 [place] at [place] [address] Community Resource 01/10/22 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 Relationship Specialty Start Date End Date Anay Roque MD [address] [place] [address] PCP - General Internal Medicine 06/01/14 [place] [address] [place] [address] Consulting Neurology 08/13/14 Vanna Soares [address] [facility] [address] [place] [address] Orthopedics Orthopedics 07/14/20 [place] at [facility] Community Resource 01/10/22 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 Relationship Specialty Start Date End Date Anay Roque MD [address] [place] [address] PCP - General Internal Medicine 06/01/14 [place] [address] [place] [address] Consulting Neurology 08/13/14 Vanna Soares [address] [place] [address] Orthopedics Orthopedics 07/14/20 [place] at [facility] Community Resource 01/10/22 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 Relationship Specialty Start Date End Date Anay Roque MD [address] [place] [address] PCP - General Internal Medicine 06/01/14 [place] [address] [place] [address] Consulting Neurology 08/13/14 Vanna Soares [address] [place] [address] Orthopedics Orthopedics 07/14/20 [place] at [facility] Community Resource 01/10/22 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 Relationship Specialty Start Date End Date Anay Roque MD [address] [place] [address] PCP - General Internal Medicine 06/01/14 [place] [address] [place] [address] Consulting Neurology 08/13/14 Vanna Soares [address] [place] [address] Orthopedics Orthopedics 07/14/20 [place] at [facility] Community Resource 01/10/22 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 Relationship Specialty Start Date End Date Anay Roque MD [address] [place] [address] PCP - General Internal Medicine 06/01/14 [place] [address] [place] [address] Consulting Neurology 08/13/14 Vanna Soares [address] [place] [address] Orthopedics Orthopedics 07/14/20 [place] at [facility] Community Resource 01/10/22 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 Relationship Specialty Start Date End Date Anay Roque MD [address] [place] [address] PCP - General Internal Medicine 06/01/14 [place] [address] [place] [address] Consulting Neurology 08/13/14 [facility] Soares [address] [facility] [address] [place] [address] Orthopedics Orthopedics 07/14/20 [place] Orellana at [facility] Community Resource 01/10/22 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 Relationship Specialty Start Date End Date Anay Roque MD [address] [place] [address] PCP - General Internal Medicine 06/01/14 [place] [address] [place] [address] Consulting Neurology 08/13/14 Vanna Soares [address] [place] [address] Orthopedics Orthopedics 07/14/20 [place] Orellana at [facility] Community Resource 01/10/22 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 Relationship Specialty Start Date End Date Anay Roque MD [address] [place] [address] PCP - General Internal Medicine 06/01/14 [place] [address] [place] [address] Consulting Neurology 08/13/14 Vanna Soares [address] [place] [address] Orthopedics Orthopedics 07/14/20 [place] Orellana at [facility] Community Resource 01/10/22 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 Relationship Specialty Start Date End Date Anay Roque MD [address] [place] [address] PCP - General Internal Medicine 06/01/14 [place] [address] [place] [address] Consulting Neurology 08/13/14 Vanna Soares [address] [place] [address] Orthopedics Orthopedics 07/14/20 [place] Orellana at [facility] Community Resource 01/10/22 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 Relationship Specialty Start Date End Date Anay Roque MD [address] [facility] [place] [address] PCP - General Internal Medicine 06/01/14 [place] [address] [place] [address] Consulting Neurology 08/13/14 Vanna Soares [address] [place] [address] Orthopedics Orthopedics 07/14/20 [place] Orellana at [facility] Community Resource 01/10/22 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 Relationship Specialty Start Date End Date Anay Roque MD [address] [place] [address] PCP - General Internal Medicine 06/01/14 [place] [address] [place] [address] Consulting Neurology 08/13/14 Vanna Soares [address] [place] [address] Orthopedics Orthopedics 07/14/20 [place] Orellana at [facility] Community Resource 01/10/22 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 Relationship Specialty Start Date End Date Anay Roque MD [address] [place] [address] PCP - General Internal Medicine 06/01/14 [place] [address] [place] [address] Consulting Neurology 08/13/[address] [address] [place] [address] Orthopedics Orthopedics 07/14/20 [place] Orellana at [facility] Community Resource 01/10/22 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 Relationship Specialty Start Date End Date Anay Roque MD [address] [place] [address] PCP - General Internal Medicine 06/01/14 [place] [address] [place] [address] Consulting Neurology 08/13/14 Vanna Soares [address] [place] [address] Orthopedics Orthopedics 07/14/20 [place] Orellana at [facility] Community Resource 01/10/22 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 Relationship Specialty Start Date End Date Anay Roque MD [address] [place] [address] PCP - General Internal Medicine 06/01/14 [place] [address] [place] [address] Consulting Neurology 08/13/14 Vanna Soares [address] [place] [address] Orthopedics Orthopedics 07/14/20 [place] Orellana at [facility] Community Resource 01/10/22 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 Relationship Specialty Start Date End Date Anay Roque MD [address] [place] [address] PCP - General Internal Medicine 06/01/14 [place] [address] [place] [address] Consulting Neurology 08/13/14 Vanna Soares [address] [place] [address] Orthopedics Orthopedics 07/14/20 [place] Orellana at [facility] Community Resource 01/10/22 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 Relationship Specialty Start Date End Date Anay Roque MD [address] [place] [address] PCP - General Internal Medicine 06/01/14 [place] [address] [place] [address] Consulting Neurology 08/13/14 Vanna Soares [address] [place] [address] Orthopedics Orthopedics 07/14/20 [place] Orellana at [facility] Community Resource 01/10/22 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 Relationship Specialty Start Date End Date Anay Roque MD [address] [place] [address] PCP - General Internal Medicine 06/01/14 [place] [address] [place] [address] Consulting Neurology 08/13/14 Vanna Soares [address] [place] [address] Orthopedics Orthopedics 07/14/20 [place] Orellana at [facility] Community Resource 01/10/22 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 Relationship Specialty Start Date End Date Anay Roque MD [address] [place] [address] PCP - General Internal Medicine 06/01/14 [place] [address] [place] [address] Consulting Neurology 08/13/14 Vanna Soares [address] [place] [address] Orthopedics Orthopedics 07/14/20 [place] Orellana at [facility] Community Resource 01/10/22 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 Relationship Specialty Start Date End Date Anay Roque MD [address] [place] [address] PCP - General Internal Medicine 06/01/14 [place] [address] [place] [address] Consulting Neurology 08/13/14 Vanna Soares [address] [place] [address] Orthopedics Orthopedics 07/14/20 [place] Orellana at [facility] Community Resource 01/10/22 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 Relationship Specialty Start Date End Date Anay Roque MD [address] [place] [address] PCP - General Internal Medicine 06/01/14 [place] [address] [place] [address] Consulting Neurology 08/13/14 Vanna Soares [address] [place] [address] Orthopedics Orthopedics 07/14/20 [place] Orellana at [facility] Community Resource 01/10/22 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 Relationship Specialty Start Date End Date Anay Roque MD [address] [place] [address] PCP - General Internal Medicine 06/01/14 [place] [address] [place] [address] Consulting Neurology 08/13/14 Vanna Soares [address] [place] [address] Orthopedics Orthopedics 07/14/20 [place] Orellana at [facility] Community Resource 01/10/22 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 Relationship Specialty Start Date End Date Anay Roque MD [address] [place] [address] PCP - General Internal Medicine 06/01/14 [place] [address] [place] [address] Consulting Neurology 08/13/14 Vanna Soares [address] [place] [address] Orthopedics Orthopedics 07/14/20 [place] Orellana at [facility] Community Resource 01/10/22 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 Relationship Specialty Start Date End Date Anay Roque MD [address] [place] [address] PCP - General Internal Medicine 06/01/14 [place] [address] [place] [address] Consulting Neurology 08/13/[address] [place] [address] Orthopedics Orthopedics 07/14/20 [place] Orellana at [facility] Community Resource 01/10/22 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 Relationship Specialty Start Date End Date Anay Roque MD [address] [place] [address] PCP - General Internal Medicine 06/01/14 [place] [address] [place] [address] Consulting Neurology 08/13/14 Vanna Soares [address] [place] [address] Orthopedics Orthopedics 07/14/20 [place] Orellana at [facility] Community Resource 01/10/22 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 Relationship Specialty Start Date End Date Anay Roque MD [address] [place] [address] PCP - General Internal Medicine 06/01/14 [place] [address] [place] [address] Consulting Neurology 08/13/14 Vanna Soares [address] [place] [address] Orthopedics Orthopedics 07/14/20 [place] Orellana at [facility] Community Resource 01/10/22 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 Relationship Specialty Start Date End Date Anay Roque MD [address] [place] [address] PCP - General Internal Medicine 06/01/14 [place] [address] [place] [address] Consulting Neurology 08/13/14 Vanna Soares [address] [place] [address] Orthopedics Orthopedics 07/14/20 [place] Orellana at [facility] Community Resource 01/10/22 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 Relationship Specialty Start Date End Date Anay Roque MD [address] [place] [address] PCP - General Internal Medicine 06/01/14 [place] [address] [place] [address] Consulting Neurology 08/13/14 Vanna Soares [address] [place] [address] Orthopedics Orthopedics 07/14/20 [place] Orellana at [facility] Community Resource 01/10/22 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 Relationship Specialty Start Date End Date Anay Rouqe MD [address] [place] [address] PCP - General Internal Medicine 06/01/14 [place] [address] [place] [address] Consulting Neurology 08/13/14 Vanna Soares [address] [facility] [address] [place] [address] Orthopedics Orthopedics 07/14/20 [place] Orellana at [place] [address] Community Resource 01/10/22 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 Relationship Specialty Start Date End Date Anay Roque MD [address] [place] [address] PCP - General Internal Medicine 06/01/14 [place] [address] [place] [address] Consulting Neurology 08/13/14 Vanna Soares [address] [facility] [facility] [address] [place] [address] Orthopedics Orthopedics 07/14/20 [place] Orellana at [facility] Community Resource 01/10/22 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 Relationship Specialty Start Date End Date Anay Roque MD [address] [place] [address] PCP - General Internal Medicine 06/01/14 [place] [address] [place] [address] Consulting Neurology 08/13/14 Vanna Soares [address] [place] [address] Orthopedics Orthopedics 07/14/20 [place] Orellana at [facility] Community Resource 01/10/22 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 Relationship Specialty Start Date End Date Anay Roque MD [address] [place] [address] PCP - General Internal Medicine 06/01/14 [place] [address] [place] [address] Consulting Neurology 08/13/14 Vanna Soares [address] [place] [address] Orthopedics Orthopedics 07/14/20 [place] Orellana at [facility] Community Resource 01/10/22 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 Relationship Specialty Start Date End Date Anay Roque MD [address] [place] [address] PCP - General Internal Medicine 06/01/14 [place] [address] [place] [address] Consulting Neurology 08/13/14 Vanna Soares [address] [place] [address] Orthopedics Orthopedics 07/14/20 [place] Orellana at [facility] Community Resource 01/10/22 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 Relationship Specialty Start Date End Date Anay Roque MD [address] [place] [address] PCP - General Internal Medicine 06/01/14 [place] [address] [place] [address] Consulting Neurology 08/13/14 Vanna Soares [address] [place] [address] Orthopedics Orthopedics 07/14/20 [place] Orellana at [facility] Community Resource 01/10/22 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 Relationship Specialty Start Date End Date Anay Roque MD [address] [place] [address] PCP - General Internal Medicine 06/01/14 [place] [address] [place] [address] Consulting Neurology 08/13/14 Vanna Soares [address] [place] [address] Orthopedics Orthopedics 07/14/20 [place] Orellana at [facility] Community Resource 01/10/22 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 Relationship Specialty Start Date End Date Anay Roque MD [address] [place] [address] PCP - General Internal Medicine 06/01/14 [place] [address] [place] [address] Consulting Neurology 08/13/14 Vanna Soares [address] [place] [address] Orthopedics Orthopedics 07/14/20 [place] Orellana at [facility] Community Resource 01/10/22 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 Relationship Specialty Start Date End Date Anay Roque MD [address] [place] [address] PCP - General Internal Medicine 06/01/14 [place] [address] [place] [address] Consulting Neurology 08/13/14 Vanna Soares [address] [address] [place] [address] Orthopedics Orthopedics 07/14/20 [place] Orellana at [facility] Community Resource 01/10/22 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 Relationship Specialty Start Date End Date Anay Roque MD [address] [place] [address] PCP - General Internal Medicine 06/01/14 [place] [address] [place] [address] Consulting Neurology 08/13/14 Vanna Soares [address] [place] [address] Orthopedics Orthopedics 07/14/20 [place] Orellana at [facility] Community Resource 01/10/22 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 Relationship Specialty Start Date End Date Anay Roque MD [address] [place] [address] PCP - General Internal Medicine 06/01/14 [place] [address] [place] [address] Consulting Neurology 08/13/14 Vanna Soares [address] [place] [address] Orthopedics Orthopedics 07/14/20 [place] Orellana at [facility] Community Resource 01/10/22 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 Relationship Specialty Start Date End Date Anay Roque MD [address] [place] [address] PCP - General Internal Medicine 06/01/14 [place] [address] [place] [address] Consulting Neurology 08/13/14 Vanna Soares [address] [place] [address] Orthopedics Orthopedics 07/14/20 [place] Orellana at [facility] Community Resource 01/10/22 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 Relationship Specialty Start Date End Date Anay Roque MD [address] [place] [address] PCP - General Internal Medicine 06/01/14 [place] [address] [place] [address] Consulting Neurology 08/13/14 Vanna Soares [address] [place] [address] Orthopedics Orthopedics 07/14/20 [place] Orellana at [facility] Community Resource 01/10/22 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 Relationship Specialty Start Date End Date Anay Roque MD [address] [place] [address] PCP - General Internal Medicine 06/01/14 [place] [address] [place], [place] [address] Consulting Neurology 08/13/14 Vanna Soares [address] [place] [address] Orthopedics Orthopedics 07/14/20 [place] Orellana at [facility] Community Resource 01/10/22 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 Relationship Specialty Start Date End Date Anay Roque MD [address] [place] [address] PCP - General Internal Medicine 06/01/14 [place] [address] [place] [address] Consulting Neurology 08/13/14 Vanna Soares [address] [place], [place] [address] Orthopedics Orthopedics 07/14/20 [place] Orellana at [facility] Community Resource 01/10/22 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 Relationship Specialty Start Date End Date Anay Roque MD [address] [place] [address] PCP - General Internal Medicine 06/01/14 [place] [address] [place] [address] Consulting Neurology 08/13/14 Vanna Soares MD [address] [place] [address] Orthopedics Orthopedics 07/14/20 [place] Orellana at [facility] Community Resource 01/10/22 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 Relationship Specialty Start Date End Date Anay Roque MD [address] [place] [address] PCP - General Internal Medicine 06/01/14 [place] [address] [place] [address] Consulting Neurology 08/13/14 Vanna Soares MD [address] [place] [address] Orthopedics Orthopedics 07/14/20 [place] Orellana at [facility] Community Resource 01/10/22 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 Relationship Specialty Start Date End Date Anay Roque MD [address] [place] [address] PCP - General Internal Medicine 06/01/14 [place] [address] [place] [address] Consulting Neurology 08/13/14 Vanna Soares MD [address] [place] [address] Orthopedics Orthopedics 07/14/20 [place] Orellana at [facility] Community Resource 01/10/22 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 Relationship Specialty Start Date End Date Anay Roque MD [address] [place] [address] PCP - General Internal Medicine 06/01/14 [place] [address] [place] [address] Consulting Neurology 08/13/14 Vanna Soares MD [address] [place] [address] Orthopedics Orthopedics 07/14/20 [place] Orellana at [facility] Community Resource 01/10/22 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 Relationship Specialty Start Date End Date Anay Roque MD [address] [place] [address] PCP - General Internal Medicine 06/01/14 [place] [address] [place] [address] Consulting Neurology 08/13/14 Vanna Soares MD [address] [place] [address] Orthopedics Orthopedics 07/14/20 [place] Orellana at [facility] Community Resource 01/10/22 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 Relationship Specialty Start Date End Date Anay Roque MD [address] [place] [address] PCP - General Internal Medicine 06/01/14 [place] [address] [place] [address] Consulting Neurology 08/13/14 Vanna Soares MD [address] [place] [address] Orthopedics Orthopedics 07/14/20 [place] Orellana at [place] [address] Community Resource 01/10/22 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 Relationship Specialty Start Date End Date Anay Roque MD [address] [place] [address] PCP - General Internal Medicine 06/01/14 [place] [address] [place] [address] Consulting Neurology 08/13/14 Vanna Soares MD [address] [place] [address] Orthopedics Orthopedics 07/14/20 [place] Orellana at [facility] Community Resource 01/10/22 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 Relationship Specialty Start Date End Date Anay Roque MD [address] [place] [address] PCP - General Internal Medicine 06/01/14 [place] [address] [place] [address] Consulting Neurology 08/13/14 Vanna Soares MD [address] [place] [address] Orthopedics Orthopedics 07/14/20 [place] Orellana at [facility] Community Resource 01/10/22 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 Relationship Specialty Start Date End Date Anay Roque MD [address] [place] [address] PCP - General Internal Medicine 06/01/14 [place] [address] [place] [address] Consulting Neurology 08/13/14 Vanna Soares MD [address] [place] [address] Orthopedics Orthopedics 07/14/20 [place] Orellana at [facility] Community Resource 01/10/22 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 Relationship Specialty Start Date End Date Anay Roque MD [address] [place] [address] PCP - General Internal Medicine 06/01/14 [place] [address] [place] [address] Consulting Neurology 08/13/14 Vanna Soares MD [address] [facility] [place] [address] Orthopedics Orthopedics 07/14/20 [place] Orellana at [place] [address] Community Resource 01/10/22 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 Relationship Specialty Start Date End Date Anay Roque MD [address] [place] [address] PCP - General Internal Medicine 06/01/14 [place] [address] [place] [address] Consulting Neurology 08/13/14 Vanna Soares MD [address] [place] [address] Orthopedics Orthopedics 07/14/20 [place] Orellana at [facility] Community Resource 01/10/22 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 Relationship Specialty Start Date End Date Anay Roque MD [address] [place] [address] PCP - General Internal Medicine 06/01/14 [place] [address] [place] [address] Consulting Neurology 08/13/14 Vanna Soares MD [address] [place] [address] Orthopedics Orthopedics 07/14/20 [place] Orellana at [facility] Community Resource 01/10/22 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 Relationship Specialty Start Date End Date Anay Roque MD [address] [place] [address] PCP - General Internal Medicine 06/01/14 [place] [address] [place] [address] Consulting Neurology 08/13/14 Vanna Soares MD [address] [place] [address] Orthopedics Orthopedics 07/14/20 [place] Orellana at [facility] Community Resource 01/10/22 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 Relationship Specialty Start Date End Date Anay Roque MD [address] [place] [address] PCP - General Internal Medicine 06/01/14 [place] [address] [place] [address] Consulting Neurology 08/13/14 Vanna Soares MD [address] [place] [address] Orthopedics Orthopedics 07/14/20 [place] Orellana at [facility] Community Resource 01/10/22 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 Relationship Specialty Start Date End Date Anay Roque MD [address] [place] [address] PCP - General Internal Medicine 06/01/14 [place] [address] [place] [address] Consulting Neurology 08/13/14 Vanna Soares MD [address] [place] [address] Orthopedics Orthopedics 07/14/20 [place] Orellana at [facility] Community Resource 01/10/22 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 Relationship Specialty Start Date End Date Anay Roque MD [address] [place] [address] PCP - General Internal Medicine 06/01/14 [place] [address] [place] [address] Consulting Neurology 08/13/14 Vanna Soares MD [address] [place] [address] Orthopedics Orthopedics 07/14/20 [place] Orellana at [facility] Community Resource 01/10/22 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 Relationship Specialty Start Date End Date Anay Roque MD [address] [place] [address] PCP - General Internal Medicine 06/01/14 [place] [address] [place] [address] Consulting Neurology 08/13/14 Vanna Soares MD [address] [place] [address] Orthopedics Orthopedics 07/14/20 [place] Orellana at [facility] Community Resource 01/10/22 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 Relationship Specialty Start Date End Date Anay Roque MD [address] [place], [place] [address] PCP - General Internal Medicine 06/01/14 [place] [address] [place], [place] [address] Consulting Neurology 08/13/14 Vanna Soares MD [address] [place] [address] Orthopedics Orthopedics 07/14/20 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 Relationship Specialty Start Date End Date Anay Roque MD [address] [place] [address] PCP - General Internal Medicine 06/01/14 [place] [address] [place] [address] Consulting Neurology 08/13/14 Vanna Soares MD [address] [facility] [address] [place] [address] Orthopedics Orthopedics 07/14/20 [place] Orellana at [facility] Community Resource 01/10/22 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 Relationship Specialty Start Date End Date Anay Roque MD [address] [place], [place] [address] PCP - General Internal Medicine 06/01/14 [place] [address] [place] [address] Consulting Neurology 08/13/14 Vanna Soares MD [address] [place] [address] Orthopedics Orthopedics 07/14/20 [place] Orellana at [facility] Community Resource 01/10/22 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 Relationship Specialty Start Date End Date Anay Roque MD [address] [place] [address] PCP - General Internal Medicine 06/01/14 [place] [address] [place] [address] Consulting Neurology 08/13/14 Vanan Soares MD [address] [place] [address] Orthopedics Orthopedics 07/14/20 [place] Orellana at [facility] Community Resource 01/10/22 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 Relationship Specialty Start Date End Date Anay Roque MD [address] [place] [address] PCP - General Internal Medicine 06/01/14 [place] [address] [place] [address] Consulting Neurology 08/13/14 Vanna Soares MD [address] [place] [address] Orthopedics Orthopedics 07/14/20 [place] Orellana at [facility] Community Resource 01/10/22 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 Relationship Specialty Start Date End Date Anay Roque MD [address] [place], [place] 994171 PCP - General Internal Medicine 06/01/14 [place] [address] [place] [address] Consulting Neurology 08/13/14 Vanna Soares MD [address] [facility] [address] [place] [address] Orthopedics Orthopedics 07/14/20 Fozia Nieves PAKishor [address] [place] [address] Supervisor Quality Control Family Medicine 05/25/24 Soila Velazquez APRN.EUNICE [address] [place] [address] Supervisor Quality Control Internal Medicine 05/25/24 Alysha Lerma PA-C [address] [place] [address] Supervisor Quality Control Family Medicine 05/25/24 [place] Orellana at [facility] Community Resource 01/10/22 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 Relationship Specialty Start Date End Date Anay Roque MD [address] [place] [address] PCP - General Internal Medicine 06/01/14 [place] [address] [place] [address] Consulting Neurology 08/13/14 Vanna Soares MD [address] [facility] [address] [address] [place], [place] [address] Orthopedics Orthopedics 07/14/20 Fozia Nieves PA-C [address] [place] [address] Supervisor Quality Control Family Medicine 05/25/24 Soila Velazquez APRN.CNP [address] [place], [place] 621241 Supervisor Quality Control Internal Medicine 05/25/24 Alysha Lerma PA-C [address] [place], [place] 173461 Supervisor Quality Control Family Medicine 05/25/24 [place] Orellana at [facility] Community Resource 01/10/22 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 Relationship Specialty Start Date End Date Anay Roque MD [address] [place] [address] PCP - General Internal Medicine 06/01/14 [place] [address] [place] [address] Consulting Neurology 08/13/14 Vanna Soares MD [address] [facility] [address] [facility] [address] [place], [place] [address] Orthopedics Orthopedics 07/14/20 Fozia Nieves PA-C [address] [place] [address] Supervisor Quality Control Family Medicine 05/25/24 Soila Velazquez APRN.TELEVISION DIRECTOR [address] [place], [place] 146881 Supervisor Quality Control Internal Medicine 05/25/24 Alysha Lerma PA-C [address] [place], [place] 383541 Supervisor Quality Control Family Medicine 05/25/24 [place] Orellana at [facility] Community Resource 01/10/22 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 Relationship Specialty Start Date End Date Anay Roque MD [address] [place], [place] 379361 PCP - General Internal Medicine 06/01/14 [place] [address] [place], [place] 4491239 Consulting Neurology 08/13/14 Vanna Soares MD [address] [facility] [address] [place], [place] 5[address]83 Orthopedics Orthopedics 07/14/20 Fozia Nieves PA-C [address] [place] [address] Supervisor Quality Control Family Medicine 05/25/24 Soila Velazquez APRN.TELEVISION DIRECTOR [address] [place], [place] 872071 Supervisor Quality Control Internal Medicine 05/25/24 Alysha Lerma PA-C [address] [place], [place] 342171 Supervisor Quality Control Family Medicine 05/25/24 [place] Orellana at [facility] Community Resource 01/10/22 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 Relationship Specialty Start Date End Date Anay Roque MD [address] [place], [place] 052131 PCP - General Internal Medicine 06/01/14 [place] [address] [place], [place] [address] Consulting Neurology 08/13/14 Vanna Soares MD [address] [facility] [address] [place], [place] [address] Orthopedics Orthopedics 07/14/20 Fozia Nieves PA-C [address] [place] [address] Supervisor Quality Control Family Medicine 05/25/24 Soila Velazquez APRN.CNP [address] [place] [address] Supervisor Quality Control Internal Medicine 05/25/24 Alysha Lerma PA-C [address] [place], [place] 787621 Supervisor Quality Control Family Medicine 05/25/24 [place] Orellana at [facility] Community Resource 01/10/22 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 Relationship Specialty Start Date End Date Anay Roque MD [address] [place], [place] [id number] PCP - General Internal Medicine 06/01/14 [place] [address] [place] [address] Consulting Neurology 08/13/14 Vanna Soares MD [address] [facility] [address] [place], [place] [address] Orthopedics Orthopedics 07/14/20 Fozia Nieves PA-C [address] [place] [address] Supervisor Quality Control Family Medicine 05/25/24 Soila Velazquez APRN.TELEVISION DIRECTOR [address] [place] [address] Supervisor Quality Control Internal Medicine 05/25/24 Alysha Lerma PA-C [address] [place] [address] Supervisor Quality Control Family Medicine 05/25/24 [place] Orellana at [facility] Community Resource 01/10/22 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 Relationship Specialty Start Date End Date Anay Roque MD [address] [place] [address] PCP - General Internal Medicine 06/01/14 [place] [address] [place] [address] Consulting Neurology 08/13/14 Vanna Soares MD [address] [place] [address] Orthopedics Orthopedics 07/14/20 Fozia Nieves PA-C [address] [place] [address] Supervisor Quality Control Family Medicine 05/25/24 Soila Velazquez APRN.TELEVISION DIRECTOR [address] [place], [place] 491671 Supervisor Quality Control Internal Medicine 05/25/24 Alysha Lerma PA-C [address] [place], [place] 725461 Supervisor Quality Control Family Medicine 05/25/24 [place] Orellana at [facility] Community Resource 01/10/22 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 Relationship Specialty Start Date End Date Anay Roque MD [address] [place], [place] 952851 PCP - General Internal Medicine 06/01/14 [place] [address] [place] [address] Consulting Neurology 08/13/14 Vanna Soares MD [address] [facility] [address] [place], [place] 194853 Orthopedics Orthopedics 07/14/20 Fozia Nieves PA-C [address] [place] [address] Supervisor Quality Control Family Medicine 05/25/24 Soila Velazquez APRN.TELEVISION DIRECTOR [address] [place], [place] 306561 Supervisor Quality Control Internal Medicine 05/25/24 Alysha Lerma PA-C [address] [place] [address] Supervisor Quality Control Family Medicine 05/25/24 [place] Orellana at [facility] Community Resource 01/10/22 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 Relationship Specialty Start Date End Date Anay Roque MD [address] [place] [address] PCP - General Internal Medicine 06/01/14 [place] [address] [place] [address] Consulting Neurology 08/13/14 Vanna Soares MD [address] [facility] [address] [place], [place] [address]653 Orthopedics Orthopedics 07/14/20 Fozia Nieves PA-C [address] [place] [address] Supervisor Quality Control Family Medicine 05/25/24 Soila Velazquez APRN.TELEVISION DIRECTOR [address] [place] [address] Supervisor Quality Control Internal Medicine 05/25/24 Alysha Lerma PA-C [address] [place], [place] 60776691 Supervisor Quality Control Family Medicine 05/25/24 [place] Orellana at [facility] Community Resource 01/10/22 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 Relationship Specialty Start Date End Date Anay Roque MD [address] [place], [place] 831235 PCP - General Internal Medicine 06/01/14 [place] [address] [place] [address] Consulting Neurology 08/13/14 Vanna Soares MD [address] [facility] [address] [place], [place] [address] Orthopedics Orthopedics 07/14/20 Fozia Nieves PA-C [address] [place] [address] Supervisor Quality Control Family Medicine 05/25/24 Soila Velazquez APRN.TELEVISION DIRECTOR [address] [place], [place] 204011 Supervisor Quality Control Internal Medicine 05/25/24 Alysha Lerma PA-C [address] [place], [place] 417121 Supervisor Quality Control Family Medicine 05/25/24 [place] Orellana at [facility] Community Resource 01/10/22 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 Relationship Specialty Start Date End Date Anay Roque MD [address] [place], [place] 843171 PCP - General Internal Medicine 06/01/14 [place] [address] [place] [address] Consulting Neurology 08/13/14 Vanna Soares MD [address] [place] [address] Orthopedics Orthopedics 07/14/20 Fozia Nieves PA-C [address] [place] [address] Supervisor Quality Control Family Medicine 05/25/24 Soila Velazquez APRN.TELEVISION DIRECTOR [address] [place], [place] 822591 Supervisor Quality Control Internal Medicine 05/25/24 Aylsha Lerma PA-C [address] [place], [place] 531691 Supervisor Quality Control Family Medicine 05/25/24 [place] Orellana at [facility] Community Resource 01/10/22 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 Relationship Specialty Start Date End Date Anay Roque MD [address] [place] [address] PCP - General Internal Medicine 06/01/14 [place] [address] [place] [address] Consulting Neurology 08/13/14 Vanna Soares MD [address] [facility] [address] [place] [address] Orthopedics Orthopedics 07/14/20 Fozia Nieves PA-C [address] [place] [address] Supervisor Quality Control Family [facility] 05/25/24 Soila Velazquez APRN.TELEVISION DIRECTOR [address] [place], [place] 286681 Supervisor Quality Control Internal Medicine 05/25/24 Alysha Lerma PA-C [address] [place] [address] Supervisor Quality Control Family Medicine 05/25/24 [place] Orellana at [facility] Community Resource 01/10/22 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 Relationship Specialty Start Date End Date Anay Roque MD [address] [place] [address] PCP - General Internal Medicine 06/01/14 [place] [address] [place] [address] Consulting Neurology 08/13/14 Vanna Soares MD [address] [facility] [address] [place] [address] Orthopedics Orthopedics 07/14/20 Fozia Nieves PA-C [address] [place] [address] Supervisor Quality Control Family Medicine 05/25/24 Soila Velazquez APRN.TELEVISION DIRECTOR [address] [place] [address] Supervisor Quality Control Internal Medicine 05/25/24 Alysha Lerma PA-C [address] [place], [place] 208841 Supervisor Quality Control Family Medicine 05/25/24 [place] Orellana at [facility] Community Resource 01/10/22 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 Relationship Specialty Start Date End Date Anay Roque MD [address] [place] [address] PCP - General Internal Medicine 06/01/14 [place] [address] [place] [address] Consulting Neurology 08/13/14 Vanna Soares MD [address] [facility] [address] [place] [address] Orthopedics Orthopedics 07/14/20 Fozia Nieves PA-C [address] [place] [address] Supervisor Quality Control Family Medicine 05/25/24 Soila Velazquez APRN.TELEVISION DIRECTOR [address] [place] [address] Supervisor Quality Control Internal Medicine 05/25/24 Alysha Lerma PA-C [address] [place], [place] 346061 Supervisor Quality Control Family Medicine 05/25/24 [place] Orellana at [facility] Community Resource 01/10/22 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 Relationship Specialty Start Date End Date Anay Roque MD [address] [place] [address] PCP - General Internal Medicine 06/01/14 [place] [address] [place] [address] Consulting Neurology 08/13/14 Vanna Soares MD [address] [facility] [address] [place] [address] Orthopedics Orthopedics 07/14/20 Fozia Nieves PA-C [address] [place] [address] Supervisor Quality Control Family Medicine 05/25/24 Soila Velazquez APRN.TELEVISION DIRECTOR [address] [place], [place] 079531 Supervisor Quality Control Internal Medicine 05/25/24 Alysha Lerma PA-C [address] [place], [place] 912811 Supervisor Quality Control Family Medicine 05/25/24 ProviderKamran MD Aoc Director Combat Plans Officer 07/17/2407/19 ProviderKamran MD Supervisor Quality Control 07/17/24 07/30/24 [place] Orellana at [facility] Community Resource 01/10/22 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 Relationship Specialty Start Date End Date Anay Roque MD [address] [place], [place] 042261 PCP - General Internal Medicine 06/01/14 [place] [address] [place], [place] [address] Consulting Neurology 08/13/14 Vanna Soares MD [address] [facility] [address] [place] [address] Orthopedics Orthopedics 07/14/20 Fozia Nieves PA-C [address] [place] [address] Supervisor Quality Control Family Medicine 05/25/24 Soila Velazquez APRN.TELEVISION DIRECTOR [address] [place], [place] 960221 Supervisor Quality Control Internal Medicine 05/25/24 Alysha Lerma PA-C [address] [place] [address] Supervisor Quality Control Family Medicine 05/25/24 ProviderKamran MD Aoc Director Combat Plans Officer 07/17/2407/19 Kamran Willis MD Supervisor Quality Control 07/17/24 07/30/24 [place] Orellana at [facility] Community Resource 01/10/22 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 Relationship Specialty Start Date End Date Anay Roque MD [address] [place] [address] PCP - General Internal Medicine 06/01/14 [place] [address] [place] [address] Consulting Neurology 08/13/14 Vanna Soares MD [address] [facility] [address] [place] [address] Orthopedics Orthopedics 07/14/20 Fozia Nieves PA-C [address] [place] [address] Supervisor Quality Control Family Medicine 05/25/24 Soila Velazquez APRN.TELEVISION DIRECTOR [address] [place] [address] Supervisor Quality Control Internal Medicine 05/25/24 Alysha Lerma PA-C [address] [place] [address] Supervisor Quality Control Family Medicine 05/25/24 Kamran Willis MD Aoc Director Combat Plans Officer 07/17/2407/19 Kamran Willis MD Supervisor Quality Control 07/17/24 07/30/24 [place] Orellana at [facility] Community Resource 01/10/22 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 Relationship Specialty Start Date End Date Anay Roque MD [address] [place] [address] PCP - General Internal Medicine 06/01/14 [place] [address] [place] [address] Consulting Neurology 08/13/14 Vanna Soares MD [address] [facility] [address] [place] [address] Orthopedics Orthopedics 07/14/20 Fozia Nieves PAKishor 6 [place] [address] Supervisor Quality Control Family Medicine 05/25/24 Soila Velazquez APRN.TELEVISION DIRECTOR [address] [place] [address] Supervisor Quality Control Internal Medicine 05/25/24 Alysha Lerma PA-C [address] [place] [address] Supervisor Quality Control Family Medicine 05/25/24 Kamran Willis MD Aoc Director Combat Plans Officer 07/17/2407/19 Kamran Willis MD Supervisor Quality Control 07/17/24 07/30/24 [place] Orellana at [facility] Community Resource 01/10/22 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 Relationship Specialty Start Date End Date Anay Roque MD [address] [place], [place] 463331 PCP - General Internal Medicine 06/01/14 [place] [address] [place] [address] Consulting Neurology 08/13/14 Vanna Soares MD [address] [facility] [address] [place] [address] Orthopedics Orthopedics 07/14/20 Fozia Nieves PA-C [address] [place] [address] Supervisor Quality Control Family Medicine 05/25/24 Soila Velazquez APRN.EUNICE [address] [place] [address] Supervisor Quality Control Internal Medicine 05/25/24 Alysha Lerma PA-C [address] [place] [address] Supervisor Quality Control Family Medicine 05/25/24 Kamran Willis MD Aoc Director Combat Plans Officer 07/17/2407/19 Kamran Willis MD Supervisor Quality Control 07/17/24 07/30/24 [place] Orellana at [facility] Community Resource 01/10/22 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 Relationship Specialty Start Date End Date Anay Roque MD [address] [place] [address] PCP - General Internal Medicine 06/01/14 [place] [address] [place] [address] Consulting Neurology 08/13/14 Vanna Soares MD [address] [facility] [address] [place] [address] Orthopedics Orthopedics 07/14/20 Fozia Nieves PA-C [address] [place] [address] Supervisor Quality Control Family Medicine 05/25/24 Soila Velazquez APRN.TELEVISION DIRECTOR [address] [place] [address] Supervisor Quality Control Internal Medicine 05/25/24 Alysha Lerma PA-C [address] [place] [address] Supervisor Quality Control Family Medicine 05/25/24 [place] Orellnaa at [facility] Community Resource 01/10/22 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 Relationship Specialty Start Date End Date Anay Roque MD [address] [place], [place] 748601 PCP - General Internal Medicine 06/01/14 [place] [address] [place] [address] Consulting Neurology 08/13/14 Vanna Soares MD [address] [facility] [address] [facility] [address] [place] [address] Orthopedics Orthopedics 07/14/20 Fozia Nieves PA-C [address] [place] [address] Supervisor Quality Control Family Medicine 05/25/24 Soila Velazquez APRN.TELEVISION DIRECTOR [address] [place] [address] Supervisor Quality Control Internal Medicine 05/25/24 Alysha Lerma PA-C [address] [place] [address] Supervisor Quality Control Family Medicine 05/25/24 [place] Orellana at [facility] Community Resource 01/10/22 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 Relationship Specialty Start Date End Date Anay Roque MD [address] [place], [place] 87336691 PCP - General Internal Medicine 06/01/14 [place] [address] [place] [address] Consulting Neurology 08/13/14 Vanna Soares MD [address] [facility] [address] [place], [place] [address] Orthopedics Orthopedics 07/14/20 Fozia Nieves PA-C [address] [place] [address] Supervisor Quality Control Family Medicine 05/25/24 Soila Velazquez APRN.TELEVISION DIRECTOR [address] [place] [address] Supervisor Quality Control Internal Medicine 05/25/24 Alysha Lerma PA-C [address] [place] [address] Supervisor Quality Control Family Medicine 05/25/24 [place] Orellana at [facility] Community Resource 01/10/22 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 Relationship Specialty Start Date End Date Anay Roque MD [address] [place], [place] 344591 PCP - General Internal Medicine 06/01/14 [place] [address] [place] [address] Consulting Neurology 08/13/14 Vanna Soares MD [address] [facility] [address] [place], [place] 444873 Orthopedics Orthopedics 07/14/20 Fozia Nieves PA-C [address] [place] [address] Supervisor Quality Control Family Medicine 05/25/24 Soila Velazquez APRN.CNP [address] [place] [address] Supervisor Quality Control Internal Medicine 05/25/24 Alysha Lerma PA-C [address] [place] [address] Supervisor Quality Control Family Medicine 05/25/24 [place] Orellana at [facility] Community Resource 01/10/22 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 Relationship Specialty Start Date End Date Anay Roque MD [address] [place], [place] 467871 PCP - General Internal Medicine 06/01/14 [place] [address] [place] [address] Consulting Neurology 08/13/14 Vanna Soares MD [address] [facility] [address] [place], [place] [address] Orthopedics Orthopedics 07/14/20 Fozia Nieves PA-C [address] [place] [address] Supervisor Quality Control Family Medicine 05/25/24 Soila Velazquez APRN.TELEVISION DIRECTOR [address] [place] [address] Supervisor Quality Control Internal Medicine 05/25/24 Alysha Lerma PA-C [address] [place] [address] Supervisor Quality Control Family Medicine 05/25/24 [place] Orellana at [facility] Community Resource 01/10/22 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 Relationship Specialty Start Date End Date Anay Roque MD [address] [place] [address] PCP - General Internal Medicine 06/01/14 [place] [address] [place] [address] Consulting Neurology 08/13/14 Vanna Soares MD [address] [facility] [address] [facility] [address] [place] [address] Orthopedics Orthopedics 07/14/20 Fozia Nieves PA-C [address] [place] [address] Supervisor Quality Control Family Medicine 05/25/24 Soila Velazquez APRN.TELEVISION DIRECTOR [address] [place] [address] Supervisor Quality Control Internal Medicine 05/25/24 Alysha Lerma PA-C [address] [place] [address] Supervisor Quality Control Family Medicine 05/25/24 [place] Orellana at [facility] Community Resource 01/10/22 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 Relationship Specialty Start Date End Date Anay Roque MD [address] [place] [address] PCP - General Internal Medicine 06/01/14 [place] [address] [place] [address] Consulting Neurology 08/13/14 Vanna Soares MD [address] [facility] [address] [place], [place] [address] Orthopedics Orthopedics 07/14/20 Soila Velazquez APRN.TELEVISION DIRECTOR [address] [place] [address] Supervisor Quality Control Internal Medicine 05/25/24 [place] Orellana at [facility] Community Resource 01/10/22 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 Relationship Specialty Start Date End Date Anay Roque MD [address] [place], [place] 878611 PCP - General Internal Medicine 06/01/14 [place] [address] [place] [address] Consulting Neurology 08/13/14 Vanna Soares MD [address] [address] [facility] [address] [place], [place] [address] Orthopedics Orthopedics 07/14/20 Older, Soila, IMPORT DISPATCHER.TELEVISION DIRECTOR [address] [facility] [place] [address] Supervisor Quality Control Internal Medicine 05/25/24 [place]IA Orellana at [facility] Community Resource 01/10/22 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 Relationship Specialty Start Date End Date Anay Roque MD [address] [place] [address] PCP - General Internal Medicine 06/01/14 [place] [address] [place] [address] Consulting Neurology 08/13/14 Vanna Soares MD [address] [facility] [address] [place] [address] Orthopedics Orthopedics 07/14/20 Soila Velazquez, IMPORT DISPATCHER.TELEVISION DIRECTOR [address] [place] [address] Supervisor Quality Control Internal Medicine 05/25/24 [place]IA Orellana at [facility] Community Resource 01/10/22 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 Relationship Specialty Start Date End Date Anay Roque MD [address] [place] [address] PCP - General Internal Medicine 06/01/14 [place] [address] [address] [facility] [place] [place] [address] Consulting Neurology 08/13/14 Vanna Soares MD [address] [facility] [address] [place], [place] [address] Orthopedics Orthopedics 07/14/20 Soila Velazquez APRN.TELEVISION DIRECTOR [address] [place] [address] Supervisor Quality Control Internal Medicine 05/25/24 [place]IA Orellana at [facility] Community Resource 01/10/22 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 Relationship Specialty Start Date End Date Anay Roque MD [address] [place] [address] PCP - General Internal Medicine 06/01/14 [place] [address] [place] [address] Consulting Neurology 08/13/14 Vanna Soares MD [address] [place] [address] Orthopedics Orthopedics 07/14/20 Soila Velazquez APRN.TELEVISION DIRECTOR [address] [place] [address] Supervisor Quality Control Internal Medicine 05/25/24 [place]IA Orellana at [facility] Community Resource 01/10/22 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 Relationship Specialty Start Date End Date Anay Roque MD [address] [place] [address] PCP - General Internal Medicine 06/01/14 [place] [address] [place] [address] Consulting Neurology 08/13/14 Vanna Soares MD [address] [place], [place] [address] Orthopedics Orthopedics 07/14/20 Soila Velazquez APRN.TELEVISION DIRECTOR [address] [place] [address] Supervisor Quality Control Internal Medicine 05/25/24 [place] Orellana at [facility] Community Resource 01/10/22 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 Relationship Specialty Start Date End Date Anay Roque MD [address] [place] [address] PCP - General Internal Medicine 06/01/14 [place] [address] [place] [address] Consulting Neurology 08/13/14 Vanna Soares MD [address] [place], [place] [address] Orthopedics Orthopedics 07/14/20 Soila Velazquez APRN.TELEVISION DIRECTOR [address] [place] [address] Supervisor Quality Control Internal Medicine 05/25/24 [place] Orellana at [facility] Community Resource 01/10/22 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 Relationship Specialty Start Date End Date Anay Roque MD [address] [place], [place] 275981 PCP - General Internal Medicine 06/01/14 [place] [address] [place] [address] Consulting Neurology 08/13/14 Vanna Soares MD [address] [facility] [address] [place], [place] 7220[address] Orthopedics Orthopedics 07/14/20 Soila Velazquez APRN.TELEVISION DIRECTOR [address] [place], [place] 459941 Supervisor Quality Control Internal Medicine 05/25/24 [place]IA Orellana at [facility] Community Resource 01/10/22 Team Status: Active Member Role Status Dates Dr. Anay Roque MD Primary Care Provider Active Team Status: Inactive Member Role Status Dates Dr. Anay Roque MD Primary Care Provider Active Start: October 09, 2024 End: October 09, 2024 Сергей Phan MD Referring Provider Active Star t: October 09, 2024 End: October 09, 2024 Сергей Phan MD Emergency Provider Active Star t: October 09, 2024 End: October 09, 2024 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 Relationship Specialty Start Date End Date Anay Roque MD [address] [place], [place] [id number] PCP - General Internal Medicine 06/01/14 [place] [address] [place] [address] Consulting Neurology 08/13/14 Vanna Soares MD [address] [place] [address] Orthopedics Orthopedics 07/14/20 Soila Velazquez APRN.TELEVISION DIRECTOR [address] [place] [address] Supervisor Quality Control Internal Medicine 05/25/24 [place] Orellana at [facility] Community Resource 01/10/22 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 Relationship Specialty Start Date End Date Anay Roque MD [address] [place] [address] PCP - General Internal Medicine 06/01/14 [place] [address] [place] [address] Consulting Neurology 08/13/14 Vanna Soares MD [address] [place] [address] Orthopedics Orthopedics 07/14/20 Soila Velazquez APRN.TELEVISION DIRECTOR [address] [place] [address] Supervisor Quality Control Internal Medicine 05/25/24 [place] Orell[place] at [facility] Community Resource 01/10/22 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 Relationship Specialty Start Date End Date Anay Roque MD [address] [place] [address] PCP - General Internal Medicine 06/01/14 [place] [address] [place] [address] Consulting Neurology 08/13/14 Vanna Soares MD [address] [place] [address] Orthopedics Orthopedics 07/14/20 Soila Velazquez APRN.TELEVISION DIRECTOR [address] [place] [address] Supervisor Quality Control Internal Medicine 05/25/24 [place] Orell[place] at [facility] Community Resource 01/10/22 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 Relationship Specialty Start Date End Date Anay Roque MD [address] [facility] [place] [address] PCP - General Internal Medicine 06/01/14 [place] [address] [place] [address] Consulting Neurology 08/13/14 Vanna Soares MD [address] [place], [place] [address] Orthopedics Orthopedics 07/14/20 Soila Velazquez APRN.TELEVISION DIRECTOR [address] [place] [address] Supervisor Quality Control Internal Medicine 05/25/24 [place] Orellana at [facility] Community Resource 01/10/22 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 Relationship Specialty Start Date End Date Anay Roque MD [address] [place] [address] PCP - General Internal Medicine 06/01/14 [place] [address] [place] [address] Consulting Neurology 08/13/14 Vanna Soares MD [address] [place] [address] Orthopedics Orthopedics 07/14/20 Soila Velazquez, IMPORT DISPATCHER.TELEVISION DIRECTOR [address] [place], [place] [address] Supervisor Quality Control Internal Medicine 05/25/24 [place] Orellana at [facility] Community Resource 01/10/22 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 Relationship Specialty Start Date End Date Anay Roque MD [address] [place] [address] PCP - General Internal Medicine 06/01/14 [place] [address] [place] [address] Consulting Neurology 08/13/14 Vanna Soares MD [address] [place] [address] Orthopedics Orthopedics 07/14/20 Soila Velazquez, IMPORT DISPATCHER.TELEVISION DIRECTOR [address] [facility] [place] [address] Supervisor Quality Control Internal Medicine 05/25/24 [place] Orellana at [facility] Community Resource 01/10/22 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 Relationship Specialty Start Date End Date Anay Roque MD [address] [place], [place] [address] PCP - General Internal Medicine 06/01/14 [place] [address] [place] [address] Consulting Neurology 08/13/14 Vanna Soares MD [address] [facility] [address] [place], [place] [address] Orthopedics Orthopedics 07/14/20 Soila Velazquez APRN.TELEVISION DIRECTOR [address] [place], [place] [address] Supervisor Quality Control Internal Medicine 05/25/24 [place] Orellana at [facility] Community Resource 01/10/22 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 Relationship Specialty Start Date End Date Anay Roque MD [address] [place] [address] PCP - General Internal Medicine 06/01/14 [place] [address] [place] [address] Consulting Neurology 08/13/14 Vanna Soares MD [address] [facility] [facility] [address] [place] [address] Orthopedics Orthopedics 07/14/20 Soila Velazquez APRN.TELEVISION DIRECTOR [address] [place], [place] [id number] Supervisor Quality Control Internal Medicine 05/25/24 [place] Orellana at [facility] Community Resource 01/10/22 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 Relationship Specialty Start Date End Date Anay Roque MD [address] [place] [address] PCP - General Internal Medicine 06/01/14 [place] [address] [facility] [place] [place] [address] Consulting Neurology 08/13/14 Vanna Soares MD [address] [facility] [address] [place] [address] Orthopedics Orthopedics 07/14/20 Soila Velazquez APRN.TELEVISION DIRECTOR [address] [place], [place] [address] Supervisor Quality Control Internal Medicine 05/25/24 [place] Orellana at [facility] Community Resource 01/10/22 Goals (unrecognized section and content) Goals may be documented in a n alternate sectionGoals may be documented in an alternate section Inactive Administered Medications - up to 3 most recent administrations Administered Medications (un recognized section and content) Medication Order MAR Action Action Date Dose Rate Site baclofen (LIORESAL) 80,000 mcg injection 80,000 mcg (40 mL), INTRATHECAL, ONCE, 1 dose, On Ninfa 08/09/23 at 1230, 40 ml kit 8566 = FORMERLY NAMED [facility] 66070-011-43 Given 08/09/2023 12:09 PM EST 80,000 mcg FOR RECORDS PERTAINING TO PATIENTS WHO ARE OR HAVE BEEN ENROLLED IN A CHEMICAL DEPENDENCY/SUBSTANCEABUSE PROGRAM, SOME INFORMATION MAY BE OMITTED. This clinical summary was aggregated from multiple sources. Caution should be exercised in using it in the provision of clinical care. This summary normalizes information from multiple sources, and as a consequence, information in this document may materially change the coding, format and clinical context of patient data. In addition, data may be omitted in some cases. CLINICAL DECISIONS SHOULD BE BASED ON THE PRIMARY CLINICAL RECORDS. [employer] provides no warranty or guarantee of the accuracy or completeness of information in this document.
--- NOTE | 2024-12-06 07:20 | RAD_ITS ---
PROCEDURE: LUMBAR SPINE 2 OR 3 VIEWS 12/06/2024 REASON FOR EXAM: PAIN TECHNIQUE: LUMBAR SPINE 2 OR 3 VIEWS COMPARISON: CT lumbar spine from January 02, 2024 FINDINGS: Vertebrae: Vertebral body heights are maintained and the vertebra are grossly intact Discs: Disc heights are relatively preserved. Alignment: AP alignment demonstrates normal lumbar lordosis. There is left convex scoliosis redemonstrated Other: RAD/Lumbar Spine 2 or 3 Views IMPRESSION: No acute process. Scoliosis. Reading [facility]
--- NOTE | 2024-12-06 07:28 | RAD_ITS ---
PROCEDURE: THORACIC SPINE 2 VIEWS 12/06/2024 REASON FOR EXAM: PAIN TECHNIQUE: THORACIC SPINE 2 VIEWS COMPARISON: None FINDINGS: Vertebrae: Posterior elements appear abnormal T1 to T11. Spinous processes are not observed. Discs: Disc heights are preserved Alignment: There is kyphosis. Other: RAD/Thoracic Spine 2 Views IMPRESSION: No acute process detected. Concern for abnormality in the posterior elements for T4-T11 including missing spinous processes and lamina Reading Location: [facility]
[2024-12-06 08:16] LABS: Amphetamine Urine NEGATIVE (<1000 ng/mL); Barbiturate Urine NEGATIVE (< 200 ng/mL); Benzodiazepine Urine PRESUMPTIVE POSITIVE (< 200 ng/mL); Buprenorphine Urine NEGATIVE (< 200 ng/mL); Cocaine Urine NEGATIVE (< 300 ng/mL); Fentanyl, Urine NEGATIVE; Methadone Urine NEGATIVE (< 300 ng/mL); Opiates Urine PRESUMPTIVE POSITIVE (< 300 ng/mL); Oxycodone, Urine NEGATIVE (< 100 ng/mL); PCP Urine NEGATIVE (< 25 ng/mL); THC Urine NEGATIVE (< 50 ng/mL)
== END | disposition home or self-care (01) ==
LOC: RAD 06:58
PROVIDERS: PCP Internal Medicine; Referring Provider Anesthesiology Pain Medicine; Visit Provider Anesthesiology Pain Medicine
DX: M96.1 Postlaminectomy syndrome, not elsewhere classified (principal); F11.20 Opioid dependence, uncomplicated
CPT/HCPCS: 72070; 72100; 80307